=== PATIENT | female | born 1940 | race Caucasian/White ===

== ENCOUNTER 2022-10-23 16:53 | Emergency (ER) | payer MEDICARE, OTHER, SELFPAY ==
[2022-10-23] VITALS (19 sets, daily range): BP systolic 159–195; BP diastolic 62–88; PULSE 56–149; RESP 14–23; TEMP 36.9; O2SAT 93–99
--- NOTE | 2022-10-23 17:04 | ECG_ITS ---
[facility] Test Date: 2022-10-23 Pat Name: SYMONE BURT Department: Room: - Gender: Female [employer]: : 1940 Requested By: ANTONINO GUSTAFSON Order Number: [id number] Reading MD: CHARITO RAMIREZ Measurements Intervals [place] Rate: 63 P: 0 NC: 202 QRS: -47 QRSD: 90 T: 61 QT: 406 QTc: 414 Interpretive Statements 1100 Sinus rhythm 2420 RSR (QR) in lead V1/V2, consistent with right ventricular conduction delay 7200 Abnormal left axis deviation 8102 Low QRS voltage in chest leads 9130 borderline ECG No previous ECG available for comparison Electronically Signed On 10-25-2022 18:24:08 EDT by CHARITO RAMIREZ
--- NOTE | 2022-10-23 17:04 | XR_ITS ---
The [address] [address] Patient Name: SYMONE BURT MRN: [id number] date: 1940 Sex: F Assigned Patient Location: ED.MAIN Current Patient Location: ER Accession/Order Number: [id number] Exam Date: 10/23/2022 17:40 Report Date: 10/23/2022 18:06 At the request of: SONJA ELIZABETH Procedure: XR hip LT 2V w/ pelvis EXAM: XR hip LT 2V w/ pelvis HISTORY: Hip pain following fall COMPARISON: None. TECHNIQUE: AP pelvis and 2 views of the left hip FINDINGS: No fracture, dislocation, subluxation or osseous lesion. The bilateral hip joints, pubic symphysis and sacroiliac joints are unremarkable for patient's age. Age-related changes of the lumbar spine.. Enthesophytes off the tendinous insertions. : Electronically authenticated by: ZHOU ABEL Date: 10/23/2022 18:06
--- NOTE | 2022-10-23 17:04 | XR_ITS ---
The [address] [address] Patient Name: SYMONE BURT MRN: [id number] date: 1940 Sex: F Assigned Patient Location: ED.MAIN Current Patient Location: ER Accession/Order Number: [id number] Exam Date: 10/23/2022 17:40 Report Date: 10/23/2022 18:05 At the request of: SONJA ELIZABETH Procedure: XR foot RT min 3V EXAM: XR foot RT min 3V HISTORY: Pain following fall COMPARISON: None. TECHNIQUE: 3 views FINDINGS: IMPRESSION: Comminuted displaced intra-articular fracture of the fifth proximal phalanx base. Associated joint effusion and soft tissue edema. Moderate degenerative changes of the first metatarsophalangeal joint. The remainder of the joint spaces are unremarkable for patient's age. Electronically authenticated by: ZHOU ABEL Date: 10/23/2022 18:05
--- NOTE | 2022-10-23 17:04 | XR_ITS ---
The [address] [address] Patient Name: SYMONE BURT MRN: [id number] date: 1940 Sex: F Assigned Patient Location: ER Current Patient Location: ER Accession/Order Number: [id number] Exam Date: 10/23/2022 17:40 Report Date: 10/23/2022 17:59 At the request of: SONJA ELIZABETH Procedure: XR chest 2V XR chest 2V COMPARISON: None. CLINICAL HISTORY: syncope TECHNIQUE: 2 views FINDINGS: There is a normal cardiac and mediastinal contour. The pulmonary vascular pattern is normal. The lungs are clear and the pleural margins are sharp. There are no significant skeletal abnormalities. XR/XR chest 2V IMPRESSION: NO ACUTE RADIOGRAPHIC FINDINGS. Electronically authenticated by: MELANIA DAVENPORT Date: 10/23/2022 17:59
--- NOTE | 2022-10-23 17:07 | ED_ITS ---
Documented by User: PARKER Michaud 10/23/22 18:53 HPI - General Adult General Chief complaint: Extremity Injury, Lower Stated complaint: FALL, LOWER EXTREMITY INJURY Time Seen by Provider: 10/23/22 16:57 Source: patient Mode of arrival: Wheelchair History of Present Illness HPI narrative: patient is a 81-year-old female presents to the Emergency Room for evaluation of right little toe and foot pain. Patient states she was standing cooking stirfry wheen she started to feel warm and funny patient states she believe she fell or passed out and came to when her son came in from another room. Patient states she twisted her toe in her foot and landed on her left hip. She does not have any evidence of head or neck injury. Patient states she initially laid down for a while and this initial injury occurred around 1 PM. Patient states she feels back to normal but her toe is still bothering her and soreness to the left lateral hip.. Patient ambulatory without difficulty. She denies any recent illness but did have some diarrhea after eating fresh beats. Patient without any chest pain palpitations or shortness of breath. Patient admits that she has had this happen to her in the past with passing out. She takes baby aspirin 81 mg daily Location: Reports right Related Data Home Medications Medication Instructions Recorded Confirmed aspirin 81 mg tablet,delayed 81 mg PO DAILY 10/23/22 10/23/22 release (Adult Low Dose Aspirin) fenofibrate 54 mg tablet 54 mg PO DAILY 10/23/22 10/23/22 levothyroxine 112 mcg tablet 112 mcg PO DAILY 10/23/22 10/23/22 losartan 25 mg tablet 25 mg PO DAILY 10/23/22 10/23/22 metoprolol tartrate 50 mg tablet 50 mg PO DAILY 10/23/22 10/23/22 spironolactone 25 mg tablet 25 mg PO DAILY 10/23/22 10/23/22 Allergies Allergy/AdvReac Type Severity Reaction Status Date / Time amlodipine [From Norvasc] Allergy Severe Verified 10/23/22 17:09 ciprofloxacin Allergy Severe Verified 10/23/22 17:09 clonidine [From Catapres] Allergy Severe Verified 10/23/22 17:09 lisinopril Allergy Severe Verified 10/23/22 17:09 Ewamgec-WFN-[id number] Reductase Allergy Severe Verified 10/23/22 17:09 Inhibitor medro dose pack Allergy Severe Uncoded 10/23/22 17:09 Review of Systems ROS Constitutional Denies: fever or chills Eyes Denies: change in vision or blurry vision Ears, nose, mouth, and throat Denies: throat pain or neck pain Cardiovascular Denies: chest pain or palpitations Respiratory Denies: shortness of breath or cough Gastrointestinal Denies: abdominal pain, nausea or vomiting Genitourinary Denies: painful urination or urinary frequency Musculoskeletal Reports: joint pain; Denies: back pain Integumentary/Breast Denies: rash Neurological Denies: headache Psychiatric Denies: anxiety, mood swings or panic attacks Allergic/Immunologic Denies: hives [facility] Medical History (Updated 10/23/22 @ 18:17 by PARKER Michaud) Exam Narrative Exam Narrative: Nurses note and vital signs reviewed and patient is not hypoxic. General: The patient appears well and in no apparent distress. Patient is resting comfortably on cart. GCS = 15. Skin: Warm, dry, no pallor noted. Head: Normocephalic, atraumatic Neck: Supple, trachea mid-line, no tenderness, no lymphadenopathy. Full ROM and no cervical spinal tenderness. The patient has no step-offs or crepitus noted Eyes: PERRLA, EOMI ENT: TM's clear, no hemotympanum detected, no blood in posterior oropharynx Cardiovascular: Regular Rate and Rhythm Respiratory: Patient is in no distress, no accessory muscle use, lungs are clear to auscultation, no wheezing, rales or rhonchi Chest Wall: no tenderness, no flail chest, contusion, abrasion, or signs of tra aaliyah. Back: Back has no evidence of trauma, including contusion, abrasion, swelling or ecchymosis. The patient had no evidence of step-offs or creptitace noted. No tenderness to palpation. Negative straight leg raise bilaterally. Musculoskeletal: normal ROM, no tenderness, no swelling. except soon to tenderness and bruising at the base of the 5th digit right foot. No midfoot tenderness. Patient also has tenderness to the left lateral hip but no pain on log rolling of the hip. Pulses at femoral, DP, PT, and popiteal were 2+ bilaterally. Moves all four extremities in all modalities with 5/5 strength. GI: Normal bowel sounds, no tenderness to palpation, no masses appreciated. No rebound, guarding, or rigidity noted. Neurological: A&O x4, normal equal field organizer strength, normal speech, normal coordination, normal motor, normal sensory. Psychiatric: Cooperative Constitutional Vital Signs, click to edit/add: Last Vital Signs Temp 98.4 F 10/23/22 16:57 Pulse 63 10/23/22 18:50 Resp 18 10/23/22 18:50 BP 194/64 H 10/23/22 18:31 Pulse Ox 93 L 10/23/22 18:10 O2 Del Method Room Air 10/23/22 16:57 Course Vital Signs Vital signs: Vital Signs Temperature 98.4 F 10/23/22 16:57 Pulse Rate 72 10/23/22 16:57 Respiratory Rate 18 10/23/22 16:57 Blood Pressure 174/88 H 10/23/22 16:57 Pulse Oximetry 98 10/23/22 16:57 Oxygen Delivery Method Room Air 10/23/22 16:57 Temperature 98.4 F 10/23/22 16:57 Pulse Rate 63 10/23/22 18:50 Respiratory Rate 18 10/23/22 18:50 Blood Pressure 194/64 H 10/23/22 18:31 Pulse Oximetry 93 L 10/23/22 18:10 Oxygen Delivery Method Room Air 10/23/22 16:57 Medical Decision Making MDM Narrative Medical decision making narrative: patient presents with possible syncopal episode. She reports having these in the past. She denies any preceding palpitations chest pain or shortness of breath. Patient admits to having some diarrhea earlier in the day. denies head or neck injury, denies headache or visual disturbance.External signs of trauma. Local ized tenderness to the right foot 5th digit base. Patient also has some tenderness to the greater trochanter of the left hip. We discussed her EKG, 4+ hours since initial episode and will check laboratory studies. Patient can be observed by her son for a possible head injury but she has no symptoms or external findings. I think I just got myself too warm cooking. orthostatic vital signs with patient supine 180/62 hr 63, seated 190/70 hr 66, standing 165/76 hr 71 fsbs 100. Patient given five hundred mL IV fluid bolus. ice applied, declined medication for pain such as Tylenol patient's blood pressure has been labile, she is asymptomatic. We recommend she get it rechecked with her family doctor. Patient reports she sees a kidney doctor, but her last visit they advised that she was all good for her age. We discussed use of a postop shoe pending follow-up with podiatry for further evaluation of her toe fracture. Patient agrees to call Wednesday for appointment.patient's son at bedside agreeable, states she only had tea this morning, did not eat well before standing in warm kitchen cooking food. The patient is to followup with primary care physician in next 2-3 days or to return to the emergency department should any of the signs or symptoms worsen or new symptoms develop. Patient had questions answered. The patient agrees with the following Diagnosis and Treatment plan and the patient will be discharged home. Lab Data Labs: Lab Results 10/23/22 10/23/22 10/23/22 Range/Units 17:16 17:24 18:10 WBC 8.9 (4.0-11.0) 10^3/uL RBC 4.61 (4.20-5.40) 10^6/uL Hgb 14.0 (12.0-16.0) g/dL Hct 39.6 (36.0-48.0) % MCV 85.9 (81.0-99.0) fL MCH 30.4 (26.7-34.0) pg MCHC 35.4 H (29.9-35.2) g/dL RDW 12.1 (11.0-15.0) % Plt Count 242 (150-450) 10^3/uL MPV 9.6 (9.5-13.5) fL Neut % (Auto) 72.3 (43.0-75.0) % Lymph % (Auto) 18.2 L (20.5-60.0) % [place] % (Auto) 8.1 (1.7-12.0) % Eos % (Auto) 0.9 (0.9-7.0) % Baso % (Auto) 0.2 (0.2-2.0) % Neut # (Auto) 6.5 (1.4-6.5) 10^3/uL Lymph # (Auto) 1.6 (1.2-3.8) 10^3/uL [place] # (Auto) 0.7 (0.3-0.8) 10^3/uL Eos # (Auto) 0.1 (0.0-0.7) 10^3/uL Baso # (Auto) 0.0 (0.0-0.1) 10^3/uL Abs Immat Gran (auto) 0.03 (0.00-0.03) 10^3/uL Imm/Tot Granulo (auto) 0.3 (0.0-0.5) % Sodium 132 L (136-145) mmol/L Potassium 4.6 (3.5-5.1) mmol/L Chloride 98 (98-107) mmol/L Carbon Dioxide 25.0 (21.0-32.0) mmol/L Anion Gap 13.6 BUN 24.0 H (7.0-18.0) mg/dL Creatinine 1.46 H (0.55-1.02) mg/dL Est GFR ( Amer) 42 L (>=60) Est GFR (Non-Af Amer) 34 L (>=60) BUN/Creatinine Ratio 16.4 Glucose 105 (74-106) mg/dL Calcium 9.1 (8.5-10.1) mg/dL Troponin I High Sens 6.1 (4.0-51.3) pg/mL Urine Color Yellow (YELLOW) Urine Clarity Clear (CLEAR) Urine pH 6.0 (5.0-9.0) Ur Specific [place] 1.020 (1.005-1.025) Urine Protein Negative (NEG/TRACE) mg/dL Urine Glucose (UA) Negative (NEGATIVE) mg/dL Urine Ketones Negative (NEGATIVE) mg/dL Urine Occult Blood Negative (NEGATIVE) Urine Nitrite Negative (NEGATIVE) Urine Bilirubin Negative (NEGATIVE) Urine Urobilinogen 1.0 (0.2-1.0) EU/dL Ur Leukocyte Esterase Trace A (NEGATIVE) Urine RBC None seen (0-2) #/HPF Urine WBC 2-5 A (NONE SEEN) #/HPF Ur Squamous Epith Cells Rare (NONE/RARE) #/LPF Urine Crystals None seen (None Seen) #/HPF Urine Bacteria None seen (NONE SEEN) #/HPF Urine Casts None seen (NONE SEEN) #/LPF Urine Mucus None seen (NONE SEEN) Ur Culture Indicated? No POC Glucose 100 (74-106) mg/dL Imaging Data Chest x-ray: Radiologist's impression: Procedure: XR chest 2V XR chest 2V COMPARISON: None. CLINICAL HISTORY: syncope TECHNIQUE: 2 views FINDINGS: There is a normal cardiac and mediastinal contour. The pulmonary vascular pattern is normal. The lungs are clear and the pleural margins are sharp. There are no significant skeletal abnormalities. IMPRESSION: NO ACUTE RADIOGRAPHIC FINDINGS. Electronically authenticated by: MELANIA DAVENPORT Date: 10/23/2022 17:59 Procedure: XR foot RT min 3V EXAM: XR foot RT min 3V HISTORY: Pain following fall COMPARISON: None. TECHNIQUE: 3 views FINDINGS: IMPRESSION: Comminuted displaced intra-articular fracture of the fifth proximal phalanx base. Associated joint effusion and soft tissue edema. Moderate degenerative changes of the first metatarsophalangeal joint. The remainder of the joint spaces are unremarkable for patient's age. Electronically authenticated by: ZHOU ABEL Date: 10/23/2022 18:05 Procedure: XR hip LT 2V w/ pelvis EXAM: XR hip LT 2V w/ pelvis HISTORY: Hip pain following fall COMPARISON: None. TECHNIQUE: AP pelvis and 2 views of the left hip FINDINGS: No fracture, dislocation, subluxation or osseous lesion. The bilateral hip joints, pubic symphysis and sacroiliac joints are unremarkable for patient's age. Age-related changes of the lumbar spine.. Enthesophytes off the tendinous insertions. : Electronically authenticated by: ZHOU ABEL Date: 10/23/2022 18:06 ECG Data Attestation: I personally reviewed and interpreted this ECG as follows: Interpretation: EKG interpretation: Emergency Department physician interpretation, normal sinus rhythm 63bpm, no ectopy, no ST segment elevation, left axis deviation.positive artifact Discharge Plan Discharge Chief Complaint: Extremity Injury, Lower Clinical Impression: Acute pain of left hip, Syncope, Dehydration Broken toe Qualifiers: Encounter type: initial encounter Toe: lesser toe Fracture type: closed Phalanx: proximal Fracture alignment: displaced Laterality: right Qualified Code(s): S92.511A - Displaced fracture of proximal phalanx of right lesser toe(s), initial encounter for closed fracture Patient Disposition: Home, Self-Care Time of Disposition Decision: 18:13 Condition: Good Prescriptions / Home Meds: No Action fenofibrate 54 mg tablet 54 mg PO DAILY levothyroxine 112 mcg tablet 112 mcg PO DAILY metoprolol tartrate 50 mg tablet 50 mg PO DAILY spironolactone 25 mg tablet 25 mg PO DAILY aspirin [Adult Low Dose Aspirin] 81 mg tablet,delayed release (DR/EC) 81 mg PO DAILY losartan 25 mg tablet 25 mg PO DAILY Instructions: Dehydration (ED), Toe Fracture (ED), Syncope in Older Adults (ED) Additional Instructions: Increase po fluids. ( avoid heat and humidity) ice and elevate right foot. use walking shoe.. recommend appt with Dr. Cabral's office to follow toe fracture Stand Alone Forms: Portal Instructions Referrals: Hoda Talbot MD [Primary Care Provider] - 1 week Erasmo Cabral MD [Physician] - As soon as possible Discharge Date/Time: 10/23/22 19:05 Documented by User: Med Bowers MD 10/23/22 19:11 HPI - General Adult General Chief complaint: Extremity Injury, Lower Stated complaint: FALL, LOWER EXTREMITY INJURY Time Seen by Provider: 10/23/22 16:57 Related Data Home Medications Medication Instructions Recorded Confirmed aspirin 81 mg tablet,delayed 81 mg PO DAILY 10/23/22 10/23/22 release (Adult Low Dose Aspirin) fenofibrate 54 mg tablet 54 mg PO DAILY 10/23/22 10/23/22 levothyroxine 112 mcg tablet 112 mcg PO DAILY 10/23/22 10/23/22 losartan 25 mg tablet 25 mg PO DAILY 10/23/22 10/23/22 metoprolol tartrate 50 mg tablet 50 mg PO DAILY 10/23/22 10/23/22 spironolactone 25 mg tablet 25 mg PO DAILY 10/23/22 10/23/22 Allergies Allergy/AdvReac Type Severity Reaction Status Date / Time amlodipine [From Norvasc] Allergy Severe Verified 10/23/22 17:09 ciprofloxacin Allergy Severe Verified 10/23/22 17:09 clonidine [From Catapres] Allergy Severe Verified 10/23/22 17:09 lisinopril Allergy Severe Verified 10/23/22 17:09 [id number]-VWV-NxS Reductase Allergy Severe Verified 10/23/22 17:09 Inhibitor medro dose pack Allergy Severe Uncoded 10/23/22 17:09 [facility] Medical History (Updated 10/23/22 @ 18:17 by PARKER Michaud) Exam Constitutional Vital Signs, click to edit/add: Last Vital Signs Temp 98.4 F 10/23/22 16:57 Pulse 63 10/23/22 18:50 Resp 18 10/23/22 18:50 BP 194/64 H 10/23/22 18:31 Pulse Ox 93 L 10/23/22 18:10 O2 Del Method Room Air 10/23/22 16:57 Course Vital Signs Vital signs: Vital Signs Temperature 98.4 F 10/23/22 16:57 Pulse Rate 72 10/23/22 16:57 Respiratory Rate 18 10/23/22 16:57 Blood Pressure 174/88 H 10/23/22 16:57 Pulse Oximetry 98 10/23/22 16:57 Oxygen Delivery Method Room Air 10/23/22 16:57 Temperature 98.4 F 10/23/22 16:57 Pulse Rate 63 10/23/22 18:50 Respiratory Rate 18 10/23/22 18:50 Blood Pressure 194/64 H 10/23/22 18:31 Pulse Oximetry 93 L 10/23/22 18:10 Oxygen Delivery Method Room Air 10/23/22 16:57 Medical Decision Making MDM Narrative Medical decision making narrative: patient presents with possible syncopal episode. She reports having these in the past. She denies any preceding palpitations chest pain or shortness of breath. Patient admits to having some diarrhea earlier in the day. denies head or neck injury, denies headache or visual disturbance.External signs of trauma. Localized tenderness to the right foot 5th digit base. Patient also has some tenderness to the greater trochanter of the left hip. We discussed her EKG, 4+ hours since initial episode and will check laboratory studies. Patient can be observed by her son for a possible head injury but she has no symptoms or external findings. I think I just got myself too warm cooking. orthostatic vital signs with patient supine 180/62 hr 63, seated 190/70 hr 66, standing 165/76 hr 71 fsbs 100. Patient given five hundred mL IV fluid bolus. ice applied, declined medication for pain such as Tylenol patient's blood pressure has been labile, she is asymptomatic. We recommend she get it rechecked with her family doctor. Patient reports she sees a kidney doctor, but her last visit they advised that she was all good for her age. We discussed use of a postop shoe pending follow-up with podiatry for further evaluation of her toe fracture. Patient agrees to call Wednesday for appointmen t.patient's son at bedside agreeable, states she only had tea this morning, did not eat well before standing in warm kitchen cooking food. The patient is to followup with primary care physician in next 2-3 days or to return to the emergency department should any of the signs or symptoms worsen or new symptoms develop. Patient had questions answered. The patient agrees with the following Diagnosis and Treatment plan and the patient will be discharged home. I, Dr Bowers, have reviewed the above progress note and course of action in the ER; agree with the above. I have personally seen and evaluated this patient, gone over history and physical, and discussed disposition and treatment plan with the patient. Lab Data Labs: Lab Results 10/23/22 10/23/22 10/23/22 Range/Units 17:16 17:24 18:10 WBC 8.9 (4.0-11.0) 10^3/uL RBC 4.61 (4.20-5.40) 10^6/uL Hgb 14.0 (12.0-16.0) g/dL Hct 39.6 (36.0-48.0) % MCV 85.9 (81.0-99.0) fL MCH 30.4 (26.7-34.0) pg MCHC 35.4 H (29.9-35.2) g/dL RDW 12.1 (11.0-15.0) % Plt Count 242 (150-450) 10^3/uL MPV 9.6 (9.5-13.5) fL Neut % (Auto) 72.3 (43.0-75.0) % Lymph % (Auto) 18.2 L (20.5-60.0) % [place] % (Auto) 8.1 (1.7-12.0) % Eos % (Auto) 0.9 (0.9-7.0) % Baso % (Auto) 0.2 (0.2-2.0) % Neut # (Auto) 6.5 (1.4-6.5) 10^3/uL Lymph # (Auto) 1.6 (1.2-3.8) 10^3/uL [place] # (Auto) 0.7 (0.3-0.8) 10^3/uL Eos # (Auto) 0.1 (0.0-0.7) 10^3/uL Baso # (Auto) 0.0 (0.0-0.1) 10^3/uL Abs Immat Gran (auto) 0.03 (0.00-0.03) 10^3/uL Imm/Tot Granulo (auto) 0.3 (0.0-0.5) % Sodium 132 L (136-145) mmol/L Potassium 4.6 (3.5-5.1) mmol/L Chloride 98 (98-107) mmol/L Carbon Dioxide 25.0 (21.0-32.0) mmol/L Anion Gap 13.6 BUN 24.0 H (7.0-18.0) mg/dL Creatinine 1.46 H (0.55-1.02) mg/dL Est GFR ( Amer) 42 L (>=60) Est GFR (Non-Af Amer) 34 L (>=60) BUN/Creatinine Ratio 16.4 Glucose 105 (74-106) mg/dL Calcium 9.1 (8.5-10.1) mg/dL Troponin I High Sens 6.1 (4.0-51.3) pg/mL Urine Color Yellow (YELLOW) Urine Clarity Clear (CLEAR) Urine pH 6.0 (5.0-9.0) Ur Specific [place] 1.020 (1.005-1.025) Urine Protein Negative (NEG/TRACE) mg/dL Urine Glucose (UA) Negative (NEGATIVE) mg/dL Urine Ketones Negative (NEGATIVE) mg/dL Urine Occult Blood Negative (NEGATIVE) Urine Nitrite Negative (NEGATIVE) Urine Bilirubin Negative (NEGATIVE) Urine Urobilinogen 1.0 (0.2-1.0) EU/dL Ur Leukocyte Esterase Trace A (NEGATIVE) Urine RBC None seen (0-2) #/HPF Urine WBC 2-5 A (NONE SEEN) #/HPF Ur Squamous Epith Cells Rare (NONE/RARE) #/LPF Urine Crystals None seen (None Seen) #/HPF Urine Bacteria None seen (NONE SEEN) #/HPF Urine Casts None seen (NONE SEEN) #/LPF Urine Mucus None seen (NONE SEEN) Ur Culture Indicated? No POC Glucose 100 (74-106) mg/dL Discharge Plan Discharge Chief Complaint: Extremity Injury, Lower Clinical Impression: Acute pain of left hip, Syncope, Dehydration Broken toe Qualifiers: Encounter type: initial encounter Toe: lesser toe Fracture type: closed Phalanx: proximal Fracture alignment: displaced Laterality: right Qualified Code(s): S92.511A - Displaced fracture of proximal phalanx of right lesser toe(s), initial encounter for closed fracture Patient Disposition: Home, Self-Care Time of Disposition Decision: 18:13 Condition: Good Prescriptions / Home Meds: No Action fenofibrate 54 mg tablet 54 mg PO DAILY levothyroxine 112 mcg tablet 112 mcg PO DAILY metoprolol tartrate 50 mg tablet 50 mg PO DAILY spironolactone 25 mg tablet 25 mg PO DAILY aspirin [Adult Low Dose Aspirin] 81 mg tablet,delayed release (DR/EC) 81 mg PO DAILY losartan 25 mg tablet 25 mg PO DAILY Instructions: Dehydration (ED), Toe Fracture (ED), Syncope in Older Adults (ED) Additional Instructions: Increase po fluids. ( avoid heat and humidity) ice and elevate right foot. use walking shoe.. recommend appt with Dr. Cabral's office to follow toe fracture Stand Alone Forms: Portal Instructions Referrals: Hoda Talbot MD [Primary Care Provider] - 1 week Erasmo Cabral MD [Physician] - As soon as possible Discharge Date/Time: 10/23/22 19:05
[2022-10-23 17:18] LABS: Glucometer 100 mg/dL (74-106)
[2022-10-23] MEDS: 0.9 % SODIUM CHLORIDE 1,000 ML 500 ML IV (17:29)
[2022-10-23 17:34] LABS: Basophils Percent Auto 0.2 % (0.2-2.0); Eosinophils Absolute Auto 0.1 10^3/uL (0.0-0.7); Eosinophils Percent Auto 0.9 % (0.9-7.0); Hematocrit 39.6 % (36.0-48.0); Immature Granulocytes Abs Auto 0.03 10^3/uL (0.00-0.03); Immature Granulocytes Pct Auto 0.3 % (0.0-0.5); Lymphocytes Absolute Auto 1.6 10^3/uL (1.2-3.8); Lymphocytes Percent Auto 18.2 % (20.5-60.0); Mean Corpuscular HGB Conc 35.4 g/dL (29.9-35.2); Mean Corpuscular Hemoglobin 30.4 pg (26.7-34.0); Mean Corpuscular Volume 85.9 fL (81.0-99.0); Mean Platelet Volume 9.6 fL (9.5-13.5); Monocytes Absolute Auto 0.7 10^3/uL (0.3-0.8); Monocytes Percent Auto 8.1 % (1.7-12.0); Neutrophils Absolute Auto 6.5 10^3/uL (1.4-6.5); Neutrophils Percent Auto 72.3 % (43.0-75.0); Platelet Count 242 10^3/uL (150-450); Red Blood Count 4.61 10^6/uL (4.20-5.40); Red Cell Distribution Width 12.1 % (11.0-15.0); White Blood Count 8.9 10^3/uL (4.0-11.0)
[2022-10-23 17:50] LABS: Anion Gap 13.6; BUN Creatinine Ratio 16.4; Calcium 9.1 mg/dL (8.5-10.1); Chloride 98 mmol/L (98-107); Estimated GFR (African America 42 (>=60); Estimated GFR (Non-African Ame 34 (>=60); Glucose 105 mg/dL (74-106); Potassium 4.6 mmol/L (3.5-5.1); Sodium 132 mmol/L (136-145); Troponin I High Sensitivity 6.1 pg/mL (4.0-51.3)
[2022-10-23 18:50] LABS: Bilirubin Urine NEGATIVE (NEGATIVE); Blood Urine NEGATIVE (NEGATIVE); Clarity Urine CLEAR (CLEAR); Color Urine YELLOW (YELLOW); Glucose Urine UA NEGATIVE (NEGATIVE); Ketones Urine NEGATIVE (NEGATIVE); Leukocyte Esterase Urine TRACE (NEGATIVE); Nitrite Urine NEGATIVE (NEGATIVE); Protein Urine NEGATIVE (NEG/TRACE)
[2022-10-23 18:51] LABS: Urine Microscopic Indicated YES
[2022-10-23 18:58] LABS: Bacteria Urine NONE SEEN #/HPF (NONE SEEN); Cast Seen? NONE SEEN #/LPF (NONE SEEN); Crystals Seen? None Seen #/HPF (None Seen); Mucus Urine NONE SEEN (NONE SEEN); RBC Urine NONE SEEN #/HPF (0-2); Squamous Epithelial Cell Urine RARE #/LPF (NONE/RARE)
[2022-10-23 18:59] LABS: Urine Culture Indicated NO
== END 2022-10-23 19:05 | disposition home or self-care (01) ==
PROVIDERS: Personal Emergency Response Attendant; Emergency Provider Emergency Medicine; PCP Family Medicine
DX: R55 Syncope and collapse (principal); E86.0 Dehydration; M25.552 Pain in left hip; S92.511A Displaced fracture of proximal phalanx of right lesser toe(s), initial encounter for closed fracture; W19.XXXA Unspecified fall, initial encounter; Z79.82 Long term (current) use of aspirin; Z79.899 Other long term (current) drug therapy; Z79.890 Hormone replacement therapy
CPT/HCPCS: 36415; 71046; 73502; 73630; 80048; 81001; 81003; 82948; 84484; 85025; 93005; 96360; 99285

== ENCOUNTER 2022-12-21 08:36 | Outpatient (OUT) | payer MEDICARE, OTHER, SELFPAY ==
[2022-12-21 09:03] LABS: Hematocrit 41.2 % (36.0-48.0); Hemoglobin 13.8 g/dL (12.0-16.0); Mean Corpuscular HGB Conc 33.5 g/dL (29.9-35.2); Mean Corpuscular Hemoglobin 29.7 pg (26.7-34.0); Mean Corpuscular Volume 88.8 fL (81.0-99.0); Mean Platelet Volume 9.3 fL (9.5-13.5); Platelet Count 241 10^3/uL (150-450); Red Blood Count 4.64 10^6/uL (4.20-5.40); Red Cell Distribution Width 12.5 % (11.0-15.0); White Blood Count 5.2 10^3/uL (4.0-11.0)
[2022-12-21 09:04] LABS: Bilirubin Urine NEGATIVE (NEGATIVE); Blood Urine NEGATIVE (NEGATIVE); Clarity Urine CLEAR (CLEAR); Color Urine LT. YELLOW (YELLOW); Glucose Urine UA NEGATIVE (NEGATIVE); Ketones Urine NEGATIVE (NEGATIVE); Leukocyte Esterase Urine SMALL (NEGATIVE); Nitrite Urine NEGATIVE (NEGATIVE); Protein Urine NEGATIVE (NEG/TRACE); Urobilinogen Urine 0.2 EU/dL (0.2-1.0)
[2022-12-21 09:11] LABS: Bacteria Urine NONE SEEN #/HPF (NONE SEEN); Cast Seen? NONE SEEN #/LPF (NONE SEEN); Crystals Seen? None Seen #/HPF (None Seen); Mucus Urine NONE SEEN (NONE SEEN); RBC Urine 0-2 #/HPF (0-2); Squamous Epithelial Cell Urine NONE SEEN #/LPF (NONE/RARE); Urine Culture Indicated NO; WBC Urine 0-2 #/HPF (NONE SEEN)
[2022-12-21 09:35] LABS: Albumin Level 3.7 g/dL (3.4-5.0); Anion Gap 12.3; BUN Creatinine Ratio 26.7; Calcium 9.7 mg/dL (8.5-10.1); Chloride 100 mmol/L (98-107); Estimated GFR (African America 45 (>=60); Estimated GFR (Non-African Ame 37 (>=60); Glucose 93 mg/dL (74-106); Phosphorus 3.6 mg/dL (2.6-4.7); Potassium 4.3 mmol/L (3.5-5.1); Sodium 136 mmol/L (136-145); Uric Acid 4.7 mg/dL (2.6-6.0)
[2022-12-21 10:12] LABS: Protein Creatinine Ratio Urine 0.07; Total Protein Urine Random <6.0 mg/dL (<=11.9)
[2022-12-22 12:09] LABS: PTH, Intact 14 pg/mL (15-65)
== END 2022-12-21 08:37 | disposition home or self-care (01) ==
LOC: LAB 08:37
PROVIDERS: PCP Family Medicine; Visit Provider Internal Medicine
DX: I12.9 Hypertensive chronic kidney disease with stage 1 through stage 4 chronic kidney disease, or unspecified chronic kidney disease (principal); N18.32 Chronic kidney disease, stage 3b; E87.1 Hypo-osmolality and hyponatremia; E20.9 Hypoparathyroidism, unspecified
CPT/HCPCS: 36415; 80069; 81001; 82306; 82570; 83735; 83970; 84156; 84550; 85027

== ENCOUNTER 2023-03-09 07:35 | Outpatient (OUT) | payer MEDICARE, OTHER, SELFPAY ==
[2023-03-09 09:02] LABS: Thyroid Stimulating Hormone 0.347 uIU/mL (0.358-3.740)
== END 2023-03-09 07:36 | disposition home or self-care (01) ==
LOC: LAB 07:37
PROVIDERS: PCP Family Medicine
DX: E03.9 Hypothyroidism, unspecified (principal)
CPT/HCPCS: 36415; 84443

== ENCOUNTER 2023-07-27 07:49 | Outpatient (OUT) | payer MEDICARE, OTHER, SELFPAY ==
--- OUTSIDE RECORDS SUMMARY | 2023-07-27 08:11 | XMS_ITS | CCD ---
Author Organization [facility] Care Team Providers Care Ironer Hand Name Role Phone Antonino Gustafson Unavailable Unavailable Unavailable Bhavna, Liliya Unavailable MD Antonino Gustafson Primary Care Provider DO Ortiz Cota Emergency Provider Sj, Dr. Antonino Macedo Primary Care Unav ailevonne Avalos, CRUMB PACKER Adrien Attending Unavailable Richard, Dr. Michael Ram Referring Unava ilable Richard, Dr. Michael Ram Referring Unava ilable Richard, Dr. Michael Ram Attending Unava ilable Sj, Dr. Antonino Macedo Primary Care Unav ailable SJ, DR ANTONINO Rand Admitting Unavailable GUSTAFSON, DR ANTONINO Rand Attending Unavailable SJ, DR ANTONINO Rand Primary Care Unavailable SJ, DR ANTONINO Rand Consulting Unavailable BHAVNA, LILIYA Admitting Unavailable BHAVNA, LILIYA Attending Unavailable SJ, DR ANTONINO Rand Primary Care Unavailable BHAVNA, LILIYA Consulting Unavailable RICHARD, DR MICHAEL Melissa Admitting Unavailabl e RICHARD, DR MICHAEL Melissa Attending Unavailabl e SJ, DR ANTONINO Rand Primary Care Unavailable RICHARD, DR MICHAEL Melissa Consulting Unavailabl e BHAVNA, LILIYA Admitting Unavailable BHAVNA, LILIYA Attending Unavailable SJ, DR ANTONINO Rand Primary Care Unavailable BHAVNA, LILIYA Consulting Unavailable Antonino Gustafson Unavailable MD Antonino Gustafson Primary Care Provider DO Willie Lyon Emergency Provider MD Elsa Amin Admit Provider MD Elsa Amin Attending Provider [phone] MD Antonino Gustafson Primary Care Provider DO Willie Lyon Emergency Provider MD Elsa Amin Admit Provider MD Elsa Amin Attending Provider LILIANE Reyes Other Provider Unavailable DO Sherron Strauss Other Provider MD Ludwin Arias Other Provider [phone] MD Michael Carrasco Other Provider MD Chance Dennison Other Provider MD Juan Martin Other Provider AIMEE Cha Other Provider MD Allie Flores Other Provider MD Reagan Bello Other Provider MD Adrienne Oconnor Other Provider [facility] Camryn Harris Other Provider MD Svitlana Reyes Other Provider Antonino Gustafson MD Primary Care Provider Lian Reyes Consulting Unavailable Antonino Gustafson Primary Care Unavailable Elsa Amin Admitting Unavailable Elsa Amin Attending Unavailable Sherorn Strauss Consulting Unavailable Ludwin Arias Consulting Unavailable Michael Carrasco Consulting Unavail able Chance Dennison Consulting Unavailable Juan Martin Consulting Unavailab Adrien Reilly Consulting Unavailable Allie Flores Consulting Unavailable Reagan Bello Najoe Consulting Unavailab Adrienne Parikh Consulting Unavailable Camryn Bosch Consulting Unavailable Svitlana Reyes Consulting Unavailable Antonino Gustafson MD Primary Care Provider ANTONINO GUSTAFSON Primary Care Unavailable ADRIEN AVALOS Attending Unavailable MICHAEL STRAUSS Referring Unavailable ANTONINO GUSTAFSON Primary Care Unavailable MICHAEL STRAUSS Attending Unavailable ADRIEN AVALOS Referring Unavailable ANTONINO GUSTAFSON Primary Care Unavailable Allergies Allergy Classification Reported Allergen(s) Allergy Type Date of Onset Reaction(s) Facility (20 sources) amLODIPine; Translations: [Norvasc] Drug Allergy 023 Itching [facility] (11 sources) Angiotensin Converting Enzyme (Tati) Inhibitors; Translations: [TATI Inhibitors] Allergy to drug (finding) 023 [facility] 3 Repository (12 sources) cloNIDine; Translations: [[id number]-[id number] PTWK] Drug Allergy Shortness of breath [facility] 250 DO Work Phone: (13 sources) Hmg-Coa Reductase Inhibitors (Statins); Translations: [Statins] Allergy to drug (finding) Myalgia, Unknown [place] [address] DO Work Phone: (20 sources) hydrALAZINE; Translations: [hydrALAZINE] Drug Allergy Diarrhea [facility] (20 sources) Lisinopril; Translations: [lisinopril] Drug Allergy 022 Rash [facility] (10 sources) methylPREDNISolone; Translations: [Medrol (Nestor) TABS] Drug Allergy Anaphylaxis [facility] 250 DO Work Phone: (15 sources) Sulfamethoxazole; Translations: [sulfa] Drug Allergy 023 Rash [facility] 250 DO Work Phone: (8 sources) Ciprofloxacin Drug Allergy Unknown, Comment:joint pain [facility] Other (8 sources) cloNIDine Drug Allergy Unknown [facility] Other (14 sources) methylPREDNISolone; Translations: [METHYLPREDNISOLONE] Drug Allergy Anaphylaxis [facility] (5 sources) amLODIPine; Translations: [amlodipine] Drug Allergy Unknown Reaction [facility] (5 sources) cloNIDine; Translations: [clonidine] Drug Allergy Unknown Reaction [facility] (4 sources) Sulfonamides (Antibiotic); Translations: [Sulfa (Sulfonamide Antibiotics)] Allergy to substance Unknown Reaction [facility] (4 sources) Ugugdjv-NNB-IoC Reductase Inhibitor; Translations: [Srbbbyh-EZQ-WeE Reductase Inhibitor] Allergy to substance Unknown Reaction [facility] (1 source) Amino Acids Drug Allergy [facility] Repository (1 source) amLODIPine Drug Allergy [facility] Repository (2 sources) black walnut pollen extract; Translations: [[id number] REDUCTASE INHIBITORS] Drug Allergy [facility] Repository (1 source) hydrALAZINE Drug Allergy 015 [facility] Repository (1 source) methylPREDNISolone Drug Allergy 015 [facility] Repository (1 source) Sulfonamides (Antibiotic) Drug allergy (disorder) [facility] Repository (5 sources) Statins Depletion *DIETARY PRODUCTS/DIETARY MANAGE Propensity to adverse reactions Unknown [facility] Other (5 sources) Sulf-10 Drug allergy Unknown [facility] Other (2 sources) Angiotensin-convertin g enzyme inhibitor agent Drug Allergy 023 Rash [facility] (2 sources) HMG-CoA reductase inhibitor Drug Allergy 023 Myalgia [facility] Work Phone: (1 source) Ciprofloxacin Drug Allergy 023 [facility] Repository (1 source) hydrALAZINE Drug Allergy [facility] Repository (1 source) Lisinopril Drug Allergy 023 [facility] Repository (1 source) methylPREDNISolone Drug Allergy 023 [facility] Repository (1 source) Sulfamethoxazole; Translations: [SULFAMETHOXAZOLE] Drug Allergy 023 [facility] 3 Repository Medications Current Medications Medication Drug Class(es) Dates Sig (Normalized) Sig (Original) aspirin 81 mg delayed release oral tablet (20 sources) Platelet Aggregation Inhibitor, Nonsteroidal Anti-inflammatory Drug Start: 03-12-2017 Aspirin (Neli Low Dose Aspirin) 81 mg Tablet,Delayed Release (Dr/Ec) Active 81 MG PO Daily March 12, 2017 1:00am take 1 tablet by summer th every twenty-four hours Aspirin 81 MG 1 tablet Orally Once a day Active Calcium + D 315-200 MG-UNIT (8 sources) take 1 tablet by summer th once daily at mealtime Calcium + D 315-200 MG-UNIT 1 tablet with meals Orally daily Active take 1 tablet by summer th twice daily at mealtime Calcium + D 315-200 MG-UNIT 1 tablet wit h meals Orally Twice a day Active CALCIUM CARBONATE-VITAMIN D3 ORAL (2 sources) take 1 tablet by mouth once daily CALCIUM CARBONATE-VITAMIN D3 ORAL Take 1 tablet by mouth once daily. 0 Active fenofibrate 54 mg oral tablet (20 sources) Peroxisome Proliferator Receptor alpha Agonist Start: 2016 take 1 tablet by mouth once daily fenofibrate (Tricor) 54 mg tablet Take 1 tablet (54 mg) by mouth once daily. 0 09/16/2021 Active levothyroxine sodium 0.1 mg oral tablet (20 sources) l-Thyroxine Start: 2022 take 1 tablet by mouth once daily in the morning Levothyroxine Sodium 112 MCG 1 tablet in the morning on an empty stomach Orally Once a day for 90 days May, Active Start: 03-12-2017 take 1 tablet by summer once daily Levothyroxine (Synthroid) 100 mcg Tablet Active 100 MCG PO Daily at 0630 30 January 29, 2023 12:00am Start: 03-12-2017 End: 01-29-2023 take 112 ug by mouth once daily Levothyroxine Disconti nued 112 MCG PO Daily March 12, 2017 1:00am January 29, 2023 10:46am take 1 tablet by summer once daily in the morning Levothyroxine Sodium 100 MCG TAKE 1 TABLET BY MOUTH ONCE DAILY IN THE MORNING ON AN EMPTY STOMACH for 30 days Active take 1 capsule by mo [facility] once daily before breakfast Levothyroxine Sodium 88 MCG Oral Capsule TAKE 1 CAPSULE BY MOUTH EVERY MORNING BEFORE BREAKFAST ON EMPTY STOMACH Quantity: 0 Refills: 0 Ordered: 09-Jan-2021 DO Active losartan potassium 25 mg oral tablet (20 sources) Angiotensin 2 Receptor Kimmie Start: 05-18-2023 take 1 tablet by mouth once daily losartan (Cozaar) 25 mg tablet Indications: Accelerated hypertension Take 1 tablet (25 mg) by mouth once daily. 90 tablet 3 05/18/2023 Active Start: 02-25-2023 End: 05-18-2023 take 1 tablet by mouth once daily losartan (Cozaar) 50 mg tablet Indications: Accelerated hypertension TAKE 1 TABLET BY MOUTH EVERY DAY 90 tablet 3 02/25/2023 05/18/2023 Discontinued (Reorder) Start: 01-27-2023 take 50 mg by mouth once daily Losartan Active 50 MG PO Daily January 27, 2023 12:00am Start: 01-15-2022 take 1 tablet by summer th once daily Losartan Potassium 50 MG Oral Tablet TAKE 1 TABLET DAILY. Quantity: 90 Refills: 3 Ordered: 12-Feb-2022 Michael Strauss DO Start : 15-Jan-2022 Active Start: 10-31-2021 End: 01-27-2023 take 25 mg by mouth once daily Losartan Discontinued 2 5 MG PO Daily October 31, 2021 12:00am January 27, 2023 2:38pm metoprolol tartrate 50 mg oral tablet (20 sources) beta-Adrenergic Kimmie Start: 03-10-2023 End: 03-09-2024 take 0.5 tablet by mouth twice daily metoprolol tartrate (Lopressor) 50 mg tablet Indications: Accelerated hypertension Take 0.5 tablets by mouth 2 times a day. 90 tablet 3 03/10/2023 03/09/2024 Active Start: 01-29-2023 take 25 mg by mouth twice ila y Metoprolol Tartrate Active 25 MG PO Twice daily January 29, 2023 12:00am Start: 12-17-2021 End: 03-10-2023 take 1 tablet by mouth once daily metoprolol tartrate (Lopressor) 50 mg tablet Indications: Accelerated hypertension Take 1 tablet by mouth once daily. 90 tablet 3 01/14/2023 03/10/2023 Discontinued (Reorder) take 0.5 tablet by m outh twice daily Metoprolol Tartrate 50 MG 1/2 tablet Orally twice a day Active take 1 tablet by summer th every twelve hours Metoprolol Tartrate 50 MG 1 tablet with food Orally Twice a day Active nitroglycerin 0.4 mg sublingual tablet (3 sources) Nitrate Vasodilator Start: 01-28-2023 Nitroglycerin Active 0.4 MG SUBLINGUAL Q5M January 28, 2023 12:00am do not exceed 3 doses per episode spironolactone 25 mg oral tablet (20 sources) Aldosterone Antagonist Start: 03-12-2017 End: 01-14-2024 take 1 tablet by mouth once daily spironolactone (Aldactone) 25 mg tablet Indications: Accelerated hypertension Take 1 tablet (25 mg) by mouth once daily. 90 tablet 3 01/14/2023 05/18/2023 Discontinued (Therapy completed) Start: 03-12-2017 take 12.5 mg by mout h once daily Spironolactone Active 12.5 MG PO Daily March 12, 2017 1:00am Completed/Discontinued Medications Medication Drug Class(es) Dates Sig (Normalized) Sig (Original) Calcium (10 sources) Phosphate Binder, Calcium Calcium 600 + D TABS TAKE 1 TABLET DAILY. Quantity: 0 Refills: 0 Ordered: 09-Jan-2021 DO Active cephalexin 500 mg oral capsule (3 sources) Cephalosporin Antibacterial Start: 03-12-2017 End: 01-27-2023 take 1 capsule by mouth three times daily Cephalexin (Keflex) 500 mg capsule Discontinued 500 MG PO Three times daily March 12, 2017 1:00am January 27, 2023 8:01am nebivolol 10 mg oral tablet (3 sources) Start: 03-12-2017 End: 01-27-2023 take 1 tablet by mouth twice daily Nebivolol (Bystolic) 10 mg tablet Discontinued 10 MG PO Twice daily March 12, 2017 1:00am January 27, 2023 8:03am tiZANidine 2 mg oral tablet (4 sources) Central alpha-2 Adrenergic Agonist Start: 11-03-2021 take 1 tablet by mouth twice daily as needed tiZANidine HCl - 2 MG Oral Tablet TAKE 1 TABLET BY MOUTH TWICE A DAY NEEDED Quantity: 20 Refills: 0 Ordered: 03-Nov-2021 DO Start : 03-Nov-2021 Active valsartan 320 mg oral tablet (3 sources) Angiotensin 2 Receptor Kimmie Start: 03-12-2017 End: 01-27-2023 take 320 mg by mouth once daily Valsartan Discontinued 320 MG PO Daily March 12, 2017 1:00am January 27, 2023 8:03am Problems Active Problems Problem Classification Problem Date Documented Date Episodic/Chronic Cardiac dysrhythmias (20 sources) Paroxysmal atrial fibrillation; Translations: [Atrial fibrillation] Onset: 3 01-27-2023 Chronic Chronic kidney disease (20 sources) Chronic kidney disease stage 3; Translations: [Chronic kidney disease, Stage III (moderate)] Onset: 3 03-10-2023 Chronic Chronic kidney disease (11 sources) Chronic kidney disease; Translations: [Chronic kidney disease, stage 3b] Onset: 2 Resolved: 2 Chronic obstructive pulmonary disease and bronchiectasis (5 sources) Bronchitis; Translations: [Bronchitis, not specified as acute or chronic] Episodic Coronary atherosclerosis and other heart disease (3 sources) Coronary arteriosclerosis; Translations: [Atherosclerotic heart disease of [place] coronary artery without angina pectoris] Chronic Deficiency and other anemia (8 sources) Anemia of renal disease; Translations: [Anemia in chronic kidney disease] Chronic Disorders of lipid metabolism (20 sources) Hyperlipidemia; Translations: [Other and unspecified hyperlipidemia] Onset: 3 Chronic Essential hypertension (20 sources) Malignant hypertension; Translations: [Malignant essential hypertension] Onset: 2 03-12-2017 Chronic Fluid and electrolyte disorders (5 sources) Hypo-osmolality and hyponatremia; Translations: [HYPO-OSMOLALITY AND HYPONATREMIA] Onset: 2 Resolved: 2 Episodic Fracture of lower limb (5 sources) Closed fracture of foot; Translations: [Unspecified fracture of left foot, initial encounter for closed fracture] Episodic Genitourinary symptoms and ill-defined conditions (10 sources) Genitourinary symptoms; Translations: [Unspecified symptoms and signs involving the genitourinary system] Episodic Hypertension with complications and secondary hypertension (17 sources) Hypertensive renal disease; Translations: [Hypertensive chronic kidney disease with stage 1 through stage 4 chronic kidney disease, or unspecified chronic kidney disease] Onset: 2 Resolved: 2 Chronic Nonspecific chest pain (5 sources) Chest pain; Translations: [Chest pain, unspecified] Onset: 3 01-27-2023 Episodic Other circulatory disease (5 sources) Elevated blood-pressure reading without diagnosis of hypertension; Translations: [Elevated blood-pressure reading, without diagnosis of hypertension] Episodic Other diseases of kidney and ureters (8 sources) Secondary hyperparathyroidism; Translations: [Secondary hyperparathyroidism of renal origin] Chronic Other diseases of kidney and ureters (2 sources) Secondary hyperparathyroidism of renal origin; Translations: [SEC HYPERPARATHYROIDISM RENAL ORIGN] Onset: 2 Resolved: 2 Chronic Other endocrine disorders (7 sources) Hypoparathyroidism; Translations: [Hypoparathyroidism, unspecified] Chronic Other endocrine disorders (3 sources) Hypoparathyroidism, unspecified Onset: 2 Resolved: 2 Chronic Other injuries and conditions due to external causes (5 sources) History of fall; Translations: [History of falling] Episodic Peripheral and visceral atherosclerosis (12 sources) Renal artery stenosis; Translations: [Atherosclerosis of renal artery] Onset: 3 12-16-2022 Chronic Residual codes; unclassified (5 sources) Immunization refused ; Translations: [Immunization not carried out because of patient refusal] Episodic Residual codes; unclassified (2 sources) Body mass index (BMI) 22.0-22.9, adult; Translations: [Body mass index (BMI) 22.0-22.9, adult] Onset: 3 Episodic Sprains and strains (5 sources) Strain of muscle of left upper arm; Translations: [Strain of other muscles, fascia and tendons at shoulder and upper arm level, left arm, initial encounter] Episodic Thyroid disorders (20 sources) Hypothyroidism; Translations: [Unspecified acquired hypothyroidism] Onset: 4 Chronic Past or Other Problems Problem Classification Problem Date Documented Da te Episodic/Chronic Acute myocardial infarction (4 sources) Myocardial infarction; Translations: [Non-ST elevation (NSTEMI) myocardial infarction] Onset: 01-28-2023 Resolved: 05-18-2023 01-28-2023 Chronic Other screening for suspected conditions (not mental disorders or infectious disease) (4 sources) Raised cardiac enzyme or marker; Translations: [Other specified abnormal findings of blood chemistry] Onset: 01-28-2023 01-27-2023 Episodic Residual codes; unclassified (15 sources) Body mass index 20-24 - normal; Translations: [Body Mass Index between 19-24, adult] Onset: 03-10-2023 Resolved: 05-18-2023 03-10-2023 Episodic Screening and history of mental health and substance abuse codes (12 sources) Ex-smoker; Translations: [Personal history of tobacco use] Onset: 12-16-2022 12-16-2022 Episodic Comment on above: quit 1966; Spondylosis; intervertebral disc disorders; other back problems (5 sources) Backache with radiation; Translations: [Dorsalgia, unspecified] Onset: 01-28-2023 01-27-2023 Episodic Unclassified (2 sources) Onset: 03-10-2023 Resolved: 05-18-2023 03-10-2023 Results Test Name Value Interpretation Reference Range Facility Basic Metabolic Panelon Anion gap [Moles/Vol] 12.5 mmol/L Normal 6.0-15.0 [facility] Comment on above: Performed By: #### B MP #### [facility] [address] Calcium [Mass/Vol] 9.5 mg/dL Normal 8.6-10.3 [facility] Comment on above: Performed By: #### B MP #### [facility] [address] Chloride [Moles/Vol] 96 mmol/L Low 98-[address] [facility] Comment on above: Performed By: #### B MP #### [facility] [address] CO2 [Moles/Vol] 25.5 mmol/L Normal 21.0-31.0 [facility] Comment on above: Performed By: #### B MP #### [facility] [address] Creatinine [Mass/Vol] 1.18 mg/dL Normal 0.60-1.20 [facility] Comment on above: Performed By: #### B MP #### [facility] [address] [place] [address] [place] Creatinine Clr Calc Pharmacy 31.19 [facility] Comment on above: Result Comment: PERF ORMED BY: [place] [address] PATHOLOGIST EXPLOSIVE ORDNANCE TECHNICIAN LI LEWIS M.D. Performed By: #### B MP #### [facility] [address] [place] [address] [place] GFR/1.73 sq M.predicted MDRD (S/P/Bld) [Vol rate/Area] 45.829 mL/min/{1.73_m2} Normal [facility] Comment on above: Performed By: #### B MP #### [facility] [address] Glucose [Mass/Vol] 82 mg/dL Normal 70-100 [facility] Comment on above: Result Comment: [facility] Glucose Reference Range is dependent on time and content of last meal. Glucose of more than 200 mg/dL in a nonstressed, ambulatory subject supports the diagnosis of Diabetes Mellitus. ADA recommended reference range Performed By: #### B MP #### [facility] [address] Potassium [Moles/Vol] 4.0 mmol/L Normal 3.5-5.1 [facility] Comment on above: Performed By: #### B MP #### [facility] [address] Sodium [Moles/Vol] 130 mmol/L Low 136-145 [facility] Comment on above: Performed By: #### B MP #### [facility] [address] Urea nitrogen [Mass/Vol] 24 mg/dL Normal 7-25 [facility] Comment on above: Performed By: #### B MP #### [facility] [address] [place] [address] [place] Calcium [Mass/volume] in Ser um or PlasmaOrdered By: Elsa Amin on 01-29-2023 Calcium [Mass/Vol] 9.5 mg/dL 8.6-10.3 [facility] Carbon dioxide, total [Moles /volume] in Serum or PlasmaOrdered By: Elsa Amin on 01-29-2023 CO2 [Moles/Vol] 25.5 mmol/L 21.0-31.0 [facility] Chloride [Moles/volume] in S lorraine or PlasmaOrdered By: Elsa Amin on 01-29-2023 Chloride [Moles/Vol] 96 mmol/L 98-[address] [facility] Creatinine [Mass/volume] in Serum or PlasmaOrdered By: Elsa Amin on 01-29-2023 Creatinine [Mass/Vol] 1.18 mg/dL 0.60-1.20 [facility] Glucose [Mass/volume] in Ser um or PlasmaOrdered By: Elsa Amin on 01-29-2023 Glucose [Mass/Vol] 82 mg/dL 70-100 [facility] Comment on above: ADA recommended refe rence rangeRandom Glucose Reference Range is dependent on time and content of last meal. Glucose of more than 200 mg/dL in a nonstressed, ambulatory subject supports the diagnosis of Diabetes Mellitus. No Panel InformationOrdered By: Elsa Amin on 01-29-2023 Estimated GFR (CKD-EPI) 45.829 mL/Min [facility] Creatinine Clearance (Chem 31.19 [facility] Potassium [Moles/volume] in Serum or PlasmaOrdered By: Elsa Amin on 01-29-2023 Potassium [Moles/Vol] 4.0 mmol/L 3.5-5.1 [facility] Serum or plasma anion gap de terminationOrdered By: Elsa Amin on 01-29-2023 Anion gap [Moles/Vol] 12.5 mmol/L 6.0-15.0 [facility] Sodium [Moles/volume] in Ser um or PlasmaOrdered By: Elsa Amin on 01-29-2023 Sodium [Moles/Vol] 130 mmol/L 136-145 [facility] Urea nitrogen [Mass/volume] in Serum or PlasmaOrdered By: Elsa Amin on 01-29-2023 Urea nitrogen [Mass/Vol] 24 mg/dL 7-25 [facility] Activated partial thrombopla stin time (aPTT) in platelet poor plasma by coagulation aOrdered By: Willie Lyon on 01-27-2023 aPTT Coag (PPP) [Time] 31.7 s 25.1-36.5 [facility] Comment on above: A hematocrit value g reater than 55% may lead to inaccurate results in coagulation testing. Patients having hematocrit values >55% require a special collection tube for coagulation studies. Please contact the laboratory at [phone] for redraw instructions. Alanine aminotransferase [En zymatic activity/volume] in Serum or PlasmaOrdered By: Willie Lyon on 01-27-2023 ALT [Catalytic activity/Vol] 9 U/L 7-52 [facility] Albumin [Mass/volume] in Ser um or Plasma by Bromocresol green (BCG) dye binding methoOrdered By: Willie Lyon on 01-27-2023 Albumin BCG dye [Mass/Vol] 4.0 g/dL 3.5-5.7 [facility] Alkaline phosphatase [Enzyma tic activity/volume] in Serum or PlasmaOrdered By: Willie Lyon on 01-27-2023 ALP [Catalytic activity/Vol] 46 U/L 34-104 [facility] Aspartate aminotransferase [ Enzymatic activity/volume] in Serum or PlasmaOrdered By: Willie Lyon on 01-27-2023 AST [Catalytic activity/Vol] 19 U/L 13-39 [facility] B-Type Natriuretic Peptideon 01-27-2023 Natriuretic peptide B (Bld) [Mass/Vol] 359.0 pg/mL High 5-100 [facility] Comment on above: Result Comment: PERF ORMED BY: [place] [address] PATHOLOGIST EXPLOSIVE ORDNANCE TECHNICIAN LI LEWIS M.D. Performed By: #### P TT, HS TROP, PT, CK, BNP #### [facility] [address] Basophils Auto (Bld) [#/Vol] Ordered By: Willie Lyon on 01-27-2023 Basophils (Bld) [#/Vol] 0.1 10*3/uL 0.0-0.2 [facility] Basophils/100 WBC Auto (Bld) Ordered By: Willie Lyon on 01-27-2023 Basophils/100 WBC (Bld) 1.0 % . [facility] Bilirubin.total [Mass/volume ] in Serum or PlasmaOrdered By: Willie Lyon on 01-27-2023 Bilirubin [Mass/Vol] 0.7 mg/dL 0.3-1.[address] [facility] Calcium [Mass/volume] in Ser um or PlasmaOrdered By: Willie Lyon on 01-27-2023 Calcium [Mass/Vol] 9.8 mg/dL 8.6-10.3 [facility] Carbon dioxide, total [Moles /volume] in Serum or PlasmaOrdered By: Willie Lyon on 01-27-2023 CO2 [Moles/Vol] 27.4 mmol/L 21.0-31.0 [facility] Chloride [Moles/volume] in S lorraine or PlasmaOrdered By: Willie Lyon on 01-27-2023 Chloride [Moles/Vol] 98 mmol/L 98-107 [facility] Complete Blood Count Auto Di ffon 01-27-2023 Basophils (Bld) [#/Vol] 0.1 10*3/uL Normal 0.0-0.2 [facility] Comment on above: Result Comment: PERF ORMED BY: [place] [address] PATHOLOGIST EXPLOSIVE ORDNANCE TECHNICIAN LI LEWIS M.D. Performed By: #### P TT, HS TROP, PT, CK, BNP #### [facility] [address] [place] [address] [place] Basophils/100 WBC (Bld) 1.0 % Normal . [facility] Comment on above: Performed By: #### P TT, HS TROP, PT, CK, BNP #### [facility] [address] [place] [address] [place] Eosinophils (Bld) [#/Vol] 0.1 10*3/uL Normal 0.0-0.45 [facility] Comment on above: Performed By: #### P TT, HS TROP, PT, CK, BNP #### [facility] [address] [place] [address] [place] Eosinophils/100 WBC (Bld) 1.7 % Normal . [facility] Comment on above: Performed By: #### P TT, HS TROP, PT, CK, BNP #### [facility] [address] [place] [address] [place] Erythrocyte distribution width (RBC) [Ratio] 13.7 % Normal 11.9-15.3 [facility] Comment on above: Performed By: #### P TT, HS TROP, PT, CK, BNP #### [address] Hematocrit (Bld) [Volume fraction] 41.4 % Normal 34.0-46.4 [facility] Comment on above: Performed By: #### P TT, HS TROP, PT, CK, BNP #### [address] Hemoglobin (Bld) [Mass/Vol] 14.0 g/dL Normal 11.8-15.4 [facility] Comment on above: Performed By: #### P TT, HS TROP, PT, CK, BNP #### [address] Lymphocytes (Bld) [#/Vol] 1.6 10*3/uL Normal 1.00-4.8 [facility] Comment on above: Performed By: #### P TT, HS TROP, PT, CK, BNP #### [address] Lymphocytes/100 WBC (Bld) 23.7 % Normal . [facility] Comment on above: Performed By: #### P TT, HS TROP, PT, CK, BNP #### [address] MCH (RBC) [Entitic mass] 29.7 pg Normal 24.7-34.3 [facility] Comment on above: Performed By: #### P TT, HS TROP, PT, CK, BNP #### [address] MCV (RBC) [Entitic vol] 87.5 fL Normal 80-100 [facility] Comment on above: Performed By: #### P TT, HS TROP, PT, CK, BNP #### [address] Mean Corpuscular HGB Conc 33.9 g/dL Normal 32.0-35.0 [facility] Comment on above: Performed By: #### P TT, HS TROP, PT, CK, BNP #### [address] Monocytes (Bld) [#/Vol] 0.5 10*3/uL Normal 0.0-0.8 [facility] Comment on above: Performed By: #### P TT, HS TROP, PT, CK, BNP #### [address] Monocytes/100 WBC (Bld) 18.32 % Normal 0.00-20.00 [facility] Comment on above: Performed By: #### P TT, HS TROP, PT, CK, BNP #### [address] Monocytes/100 WBC (Bld) 7.4 % Normal . [facility] Comment on above: Performed By: #### P TT, HS TROP, PT, CK, BNP #### [address] Neutrophils (Bld) [#/Vol] 4.6 10*3/uL Normal 1.8-7.7 [facility] Comment on above: Performed By: #### P TT, HS TROP, PT, CK, BNP #### [address] Neutrophils/100 WBC (Bld) 66.2 % Normal . [facility] Comment on above: Performed By: #### P TT, HS TROP, PT, CK, BNP #### [address] NRBC% 0.1 /100{WBC} Normal 0-0.5 [facility] Comment on above: Performed By: #### P TT, HS TROP, PT, CK, BNP #### [address] Platelet mean volume (Bld) [Entitic vol] 7.7 fL Normal 6.3-10.7 [facility] Comment on above: Performed By: #### P TT, HS TROP, PT, CK, BNP #### [place] [id number] [place] Platelets (Bld) [#/Vol] 281 10*3/uL Normal 150-450 [facility] Comment on above: Performed By: #### P TT, HS TROP, PT, CK, BNP #### [address] RBC (Bld) [#/Vol] 4.73 10*6/uL Normal 3.60-5.00 [facility] Comment on above: Performed By: #### P TT, HS TROP, PT, CK, BNP #### [address] WBC (Bld) [#/Vol] 6.9 10*3/uL Normal 3.8-11.6 [facility] Comment on above: Performed By: #### P TT, HS TROP, PT, CK, BNP #### [address] Comprehensive Metabolic Pane clarita 01-27-2023 Albumin [Mass/Vol] 4.0 g/dL Normal 3.5-5.7 [facility] Comment on above: Performed By: #### P TT, HS TROP, PT, CK, BNP #### [address] Albumin/Globulin [Mass ratio] 1.4 {ratio} Normal [facility] Comment on above: Performed By: #### P TT, HS TROP, PT, CK, BNP #### [address] ALP [Catalytic activity/Vol] 46 U/L Normal 34-104 [facility] Comment on above: Performed By: #### P TT, HS TROP, PT, CK, BNP #### [address] ALT [Catalytic activity/Vol] 9 U/L Normal 7-52 [facility] Comment on above: Performed By: #### P TT, HS TROP, PT, CK, BNP #### [address] Anion gap [Moles/Vol] 11.2 mmol/L Normal 6.0-15.0 [facility] Comment on above: Performed By: #### P TT, HS TROP, PT, CK, BNP #### [facility] [address] AST [Catalytic activity/Vol] 19 U/L Normal 13-39 [facility] Comment on above: Performed By: #### P TT, HS TROP, PT, CK, BNP #### [facility] [address] Bilirubin [Mass/Vol] 0.7 mg/dL Normal 0.3-1.[address] [facility] Comment on above: Performed By: #### P TT, HS TROP, PT, CK, BNP #### [address] Calcium [Mass/Vol] 9.8 mg/dL Normal 8.6-10.3 [facility] Comment on above: Performed By: #### P TT, HS TROP, PT, CK, BNP #### [address] Chloride [Moles/Vol] 98 mmol/L Normal 98-[address] [facility] Comment on above: Performed By: #### P TT, HS TROP, PT, CK, BNP #### [address] CO2 [Moles/Vol] 27.4 mmol/L Normal 21.0-31.0 [facility] Comment on above: Performed By: #### P TT, HS TROP, PT, CK, BNP #### [facility] [address] [place] [address] [place] Creatinine [Mass/Vol] 1.45 mg/dL High 0.60-1.20 [facility] Comment on above: Performed By: #### P TT, HS TROP, PT, CK, BNP #### [facility] [address] [place] [address] [place] Creatinine Clr Calc Pharmacy 25.39 Normal [facility] Comment on above: Result Comment: PERF ORMED BY: [place] [address] PATHOLOGIST EXPLOSIVE ORDNANCE TECHNICIAN LI LEWIS M.D. Performed By: #### P TT, HS TROP, PT, CK, BNP #### [address] GFR/1.73 sq M.predicted MDRD (S/P/Bld) [Vol rate/Area] 35.790 mL/min/{1.73_m2} [facility] Comment on above: Performed By: #### P TT, HS TROP, PT, CK, BNP #### [address] Globulin (S) [Mass/Vol] 2.9 g/dL [facility] Comment on above: Performed By: #### P TT, HS TROP, PT, CK, BNP #### [address] Glucose [Mass/Vol] 105 mg/dL High 70-100 [facility] Comment on above: Result Comment: [facility] Glucose Reference Range is dependent on time and content of last meal. Glucose of more than 200 mg/dL in a nonstressed, ambulatory subject supports the diagnosis of Diabetes Mellitus. ADA recommended reference range Performed By: #### P TT, HS TROP, PT, CK, BNP #### [address] Potassium [Moles/Vol] 4.6 mmol/L Normal 3.5-5.1 [facility] Comment on above: Performed By: #### P TT, HS TROP, PT, CK, BNP #### [address] Protein [Mass/Vol] 6.9 g/dL Normal 6.4-8.9 [facility] Comment on above: Performed By: #### P TT, HS TROP, PT, CK, BNP #### [address] Sodium [Moles/Vol] 132 mmol/L Low 136-145 [facility] Comment on above: Performed By: #### P TT, HS TROP, PT, CK, BNP #### [facility] [address] [place] [address] [place] Urea nitrogen [Mass/Vol] 30 mg/dL High 10-20 [facility] Comment on above: Performed By: #### P TT, HS TROP, PT, CK, BNP #### [facility] [address] [place] [address] [place] Creatine Kinaseon 01-27-2023 CK [Catalytic activity/Vol] 52 U/L Normal [facility] Comment on above: Performed By: #### P TT, HS TROP, PT, CK, BNP #### [facility] [address] Creatine kinase [Enzymatic a ctivity/volume] in Serum or PlasmaOrdered By: Willie Lyon on 01-27-2023 CK [Catalytic activity/Vol] 52 U/L [facility] Creatinine [Mass/volume] in Serum or PlasmaOrdered By: Willie Lyon on 01-27-2023 Creatinine [Mass/Vol] 1.45 mg/dL 0.60-1.20 [facility] ECG 12 lead ECGon 01-27-2023 ECG 12 lead ECG [facility] [place] [address] [place] [address] Electrocardiograph Report Signed Patient: Janelle Burt MR#: [id number] : 1940 Acct:[id number] Age/Sex: 82 / F ADM Date: 01/27/23 Loc: Room: [address] [place] [address] Type: ADM INOo Attending Dr: Elsa Amin MD Ordering Provider: Willie Lyon DO Date of Service: 01/27/2304/20/853 ECG/ECG 12 lead ECG: Back Pain/Injury Copies to: Test Reason : Blood Pressure : 144/070 mmHG Vent. Rate : 075 BPM Atrial Rate : 075 BPM P-R Int : 218 ms QRS Dur : 082 ms QT Int : 372 ms P-R-T Axes : 000 -42 057 degrees QTc Int : 415 ms Sinus rhythm with 1st degree AV block Left axis deviation Low voltage QRS Confirmed by Willie LYON DO ([id number]) on 01/27/2023 3:01:31 PM Referred By: Electronically Signed By:Willie LYON DO Transcribed By: MUS Signed By Willie Lyon DO 1 03/29/22 1501 Normal [facility] ECG 12 lead ECG [facility] [place] [address] Electrocardiograph Report Signed Patient: Janelle Burt MR#: [id number] : 1940 Acct:[id number] Age/Sex: 82 / F ADM Date: 01/27/23 Loc: Room: [address] [place] [address] Type: ADM INOo Attending Dr: Elsa Amin MD Ordering Provider: Willie Lyon DO Date of Service: 01/27/2304/20/806 ECG/ECG 12 lead ECG: Back Pain/Injury Copies to: Test Reason : Blood Pressure : 128/082 mmHG Vent. Rate : 098 BPM Atrial Rate : 312 BPM P-R Int : 000 ms QRS Dur : 084 ms QT Int : 342 ms P-R-T Axes : 000 -45 065 degrees QTc Int : 436 ms Atrial fibrillation Left axis deviation Confirmed by Willie LYON DO ([id number]) on 01/27/2023 11:37:45 AM Referred By: Electronically Signed By:Willie LYON DO Transcribed By: MUS Signed By Willie Lyon DO 1 03/29/22 1137 Normal [facility] Eosinophils Auto (Bld) [#/Vo l]Ordered By: Willie Lyon on 01-27-2023 Eosinophils (Bld) [#/Vol] 0.1 10*3/uL 0.0-0.45 [facility] Eosinophils/100 WBC Auto (Bl d)Ordered By: Willie Lyon on 01-27-2023 Eosinophils/100 WBC (Bld) 1.7 % . [facility] Erythrocyte distribution wid th Auto (RBC) [Ratio]Ordered By: Willie Lyon on 01-27-2023 Erythrocyte distribution width (RBC) [Ratio] 13.7 % 11.9-15.3 [facility] Globulin Calc (S) [Mass/Vol] Ordered By: Willie Lyon on 01-27-2023 Globulin (S) [Mass/Vol] 2.9 g/dL [facility] Glucose [Mass/volume] in Ser um or PlasmaOrdered By: Willie Lyon on 01-27-2023 Glucose [Mass/Vol] 105 mg/dL 70-100 [facility] Comment on above: ADA recommended refe rence rangeRandom Glucose Reference Range is dependent on time and content of last meal. Glucose of more than 200 mg/dL in a nonstressed, ambulatory subject supports the diagnosis of Diabetes Mellitus. Hematocrit Auto (Bld) [Volum e fraction]Ordered By: Willie Lyon on 01-27-2023 Hematocrit (Bld) [Volume fraction] 41.4 % 34.0-46.4 [facility] Hemoglobin [Mass/volume] in BloodOrdered By: Willie Lyon on 01-27-2023 Hemoglobin (Bld) [Mass/Vol] 14.0 g/dL 11.8-15.4 [facility] INR in Platelet poor plasma by Coagulation assayOrdered By: Willie Lyon on 01-27-2023 INR Coag (PPP) [Relative time] 1.0 {INR} [facility] Comment on above: INR Therapeutic Rang e A) Pre- and Peroperative OAT started two weeks before surgery. NOT HIP SURGERY: 1.5 - 2.5 HIP SURGERY: 2 - 3B) Primary and secondary prevention of venous THROMBOSIS: 2 - 3C) Active venous thrombosis, pulmonary embolismand prevention of recurrent venous thrombosis: 2 - 3D) Prevention of arterial thromboembolismincluding patients with mechanical heart valves: 3 - 4.5 Leukocytes [#/volume] correc chacho for nucleated erythrocytes in Blood by Automated counOrdered By: Willie Lyon on 01-27-2023 WBC corrected for nucl RBC Auto (Bld) [#/Vol] 6.9 10*3/uL 3.8-11.6 [facility] Lymphocytes Auto (Bld) [#/Vo l]Ordered By: Willie Lyon on 01-27-2023 Lymphocytes (Bld) [#/Vol] 1.6 10*3/uL 1.00-4.8 [facility] Lymphocytes/100 WBC Auto (Bl d)Ordered By: Willie Lyon on 01-27-2023 Lymphocytes/100 WBC (Bld) 23.7 % . [facility] MCH Auto (RBC) [Entitic mass ]Ordered By: Willie Lyon on 01-27-2023 MCH (RBC) [Entitic mass] 29.7 pg 24.7-34.3 [facility] MCHC Auto (RBC) [Mass/Vol]Or dered By: Willie Lyon on 01-27-2023 MCHC (RBC) [Mass/Vol] 33.9 g/dL 32.0-35.0 [facility] MCV Auto (RBC) [Entitic vol] Ordered By: Willie Lyon on 01-27-2023 MCV (RBC) [Entitic vol] 87.5 fL 80-100 [facility] Magnesiumon 01-27-2023 Magnesium [Mass/Vol] 2.0 mg/dL Normal 1.9-2.[address] [facility] Comment on above: Performed By: #### P TT, HS TROP, PT, CK, BNP #### [facility] [address] [place] [address] Magnesium [Mass/volume] in S lorraine or PlasmaOrdered By: Willie Lyon on 01-27-2023 Magnesium [Mass/Vol] 2.0 mg/dL 1.9-2.[address] [facility] Monocyte distribution width [Entitic volume] in Blood by AutomatedOrdered By: Willie Lyon on 01-27-2023 Monocyte distribution width Auto (Bld) [Entitic vol] 18.32 % 0.00-20.00 [facility] Monocytes Auto (Bld) [#/Vol] Ordered By: Willie Lyon on 01-27-2023 Monocytes (Bld) [#/Vol] 0.5 10*3/uL 0.0-0.8 [facility] Monocytes/100 WBC Auto (Bld) Ordered By: Willie Lyon on 01-27-2023 Monocytes/100 WBC (Bld) 7.4 % . [facility] Natriuretic peptide B [Mass/ Vol]Ordered By: Willie Lyon on 01-27-2023 Natriuretic peptide B (Bld) [Mass/Vol] 359.0 pg/mL 5-100 [facility] Neutrophils Auto (Bld) [#/Vo l]Ordered By: Willie Lyon on 01-27-2023 Neutrophils (Bld) [#/Vol] 4.6 10*3/uL 1.8-7.7 [facility] Neutrophils/100 WBC Auto (Bl d)Ordered By: Willie Lyon on 01-27-2023 Neutrophils/100 WBC (Bld) 66.2 % . [facility] No Panel InformationOrdered By: Willie Lyon on 01-27-2023 Estimated GFR (CKD-EPI) 35.790 mL/Min [facility] Creatinine Clearance (Chem 25.39 [facility] Nucleated erythrocytes [Pres ence] in Blood by Automated countOrdered By: Willie Lyon on 01-27-2023 Nucleated RBC Auto Ql (Bld) 0.1 /100{WBC} 0-0.5 [facility] Partial Thromboplastin Timeo n 01-27-2023 aPTT Coag (Bld) [Time] 31.7 s Normal 25.1-36.5 [facility] Comment on above: Result Comment: A he matocrit value greater than 55% may lead to inaccurate results in coagulation testing. Patients having hematocrit values >55% require a special collection tube for coagulation studies. Please contact the laboratory at [phone] for redraw instructions. PERFORMED BY: [place] [address] PATHOLOGIST EXPLOSIVE ORDNANCE TECHNICIAN LI LEWIS M.D. Performed By: #### P TT, HS TROP, PT, CK, BNP #### [facility] [address] [place] [address] Platelet mean volume Auto (B ld) [Entitic vol]Ordered By: Willie Lyon on 01-27-2023 Platelet mean volume (Bld) [Entitic vol] 7.7 fL 6.3-10.7 [facility] Platelets Auto (Bld) [#/Vol] Ordered By: Willie Lyon on 01-27-2023 Platelets (Bld) [#/Vol] 281 10*3/uL 150-450 [facility] Potassium [Moles/volume] in Serum or PlasmaOrdered By: Willie Lyon on 01-27-2023 Potassium [Moles/Vol] 4.6 mmol/L 3.5-5.1 [facility] Protein [Mass/volume] in Ser um or PlasmaOrdered By: Willie Lyon on 01-27-2023 Protein [Mass/Vol] 6.9 g/dL 6.4-8.9 [facility] Prothrombin Time INRon 01-27 INR Coag (PPP) [Relative time] 1.0 {INR} Normal [facility] Comment on above: Result Comment: INR Therapeutic Range A) Pre- and Peroperative OAT started two weeks before surgery. NOT HIP SURGERY: 1.5 - 2.5 HIP SURGERY: 2 - 3 B) Primary and secondary prevention of venous THROMBOSIS: 2 - 3 C) Active venous thrombosis, pulmonary embolism and prevention of recurrent venous thrombosis: 2 - 3 D) Prevention of arterial thromboembolism including patients with mechanical heart valves: 3 - 4.5 Performed By: #### P TT, HS TROP, PT, CK, BNP #### [facility] [address] PT Coag (PPP) [Time] 12.2 s Normal 9.0-12.[address] [facility] Comment on above: Result Comment: A he matocrit value greater than 55% may lead to inaccurate results in coagulation testing. Patients having hematocrit values >55% require a special collection tube for coagulation studies. Please contact the laboratory at [phone] for redraw instructions. Performed By: #### P TT, HS TROP, PT, CK, BNP #### [facility] [address] [place] [id number] [facility] Prothrombin time (PT)Ordered By: Willie Lyon on 01-27-2023 PT Coag (PPP) [Time] 12.2 s 9.0-12.[address] [facility] Comment on above: A hematocrit value g reater than 55% may lead to inaccurate results in coagulation testing. Patients having hematocrit values >55% require a special collection tube for coagulation studies. Please contact the laboratory at [phone] for redraw instructions. RBC Auto (Bld) [#/Vol]Ordere d By: Willie Lyon on 01-27-2023 RBC (Bld) [#/Vol] 4.73 10*6/uL 3.60-5.00 [facility] Serum or plasma albumin/glob ulin mass ratioOrdered By: Willie Lyon on 01-27-2023 Albumin/Globulin [Mass ratio] 1.4 {ratio} [facility] Serum or plasma anion gap de terminationOrdered By: Willie Lyon on 01-27-2023 Anion gap [Moles/Vol] 11.2 mmol/L 6.0-15.0 [facility] Sodium [Moles/volume] in Ser um or PlasmaOrdered By: Willie Lyon on 01-27-2023 Sodium [Moles/Vol] 132 mmol/L 136-145 [facility] Thyroid Stimulating Hormoneo n 01-27-2023 TSH Qn 0.18 m[IU]/L Low 0.45-5.33 [facility] Comment on above: Result Comment: PERF ORMED BY: [place] [address] PATHOLOGIST EXPLOSIVE ORDNANCE TECHNICIAN LI LEWIS M.D. Performed By: #### P TT, HS TROP, PT, CK, BNP #### [facility] [address] [place] [address] [place] Thyrotropin [Units/volume] i n Serum or PlasmaOrdered By: Willie Lyon on 01-27-2023 TSH Qn 0.18 m[IU]/L 0.45-5.33 [facility] Troponin I High Sensitivityo n 01-27-2023 Troponin I High Sensitivity 29.5 pg/mL High 0.0-15.0 [facility] Comment on above: Result Comment: PERF ORMED BY: [place] [address] PATHOLOGIST EXPLOSIVE ORDNANCE TECHNICIAN LI LEWIS M.D. Performed By: #### P TT, HS TROP, PT, CK, BNP #### [facility] [address] [place] [address] Troponin I High Sensitivity 36.3 pg/mL High 0.0-15.0 [facility] Comment on above: Result Comment: PERF ORMED BY: [place] [address] PATHOLOGIST EXPLOSIVE ORDNANCE TECHNICIAN LI LEWIS M.D. Performed By: #### H S TROP #### [facility] [address] [place] [address] Troponin I High Sensitivity 47.3 pg/mL High 0.0-15.0 [facility] Comment on above: Result Comment: PERF ORMED BY: [place] [address] PATHOLOGIST EXPLOSIVE ORDNANCE TECHNICIAN LI LEWIS M.D. Performed By: #### P TT, HS TROP, PT, CK, BNP #### [facility] [address] [place] [address] Troponin I.cardiac [Mass/vol ume] in Serum or Plasma by Detection limit <= 0.01 ng/Ordered By: Elsa Amin on 01-27-2023 Troponin I.cardiac DL <= 0.01 ng/mL [Mass/Vol] 29.5 pg/mL 0.0-15.0 [facility] Troponin I.cardiac [Mass/vol ume] in Serum or Plasma by Detection limit <= 0.01 ng/Ordered By: Willie Lyon on 01-27-2023 Troponin I.cardiac DL <= 0.01 ng/mL [Mass/Vol] 47.3 pg/mL 0.0-15.0 [facility] Urea nitrogen [Mass/volume] in Serum or PlasmaOrdered By: Willie Lyon on 01-27-2023 Urea nitrogen [Mass/Vol] 30 mg/dL 7-25 [facility] WBC Auto (Bld) [#/Vol]Ordere d By: Willie Lyon on 01-27-2023 WBC (Bld) [#/Vol] 6.9 10*3/uL 3.8-11.6 [facility] XR chest 2V*on 01-27-2023 XR chest 2V* [facility] [place] [address] [place] [address] XRay Report Signed Patient: Janelle Burt MR#: [id number] : 1940 Acct:[id number] Age/Sex: 82 / F ADM Date: 01/27/23 Loc: ER Room: Type: [facility] ER Attending Dr: Copies to: Willie Lyon DO Ordering Provider: Willie Lyon DO Date of Service: 01/27/23 XR/XR chest 2V*: Back Pain/Injury XR chest 2V* 01/27/2023 8:26 AM SIGNS AND SYMPTOMS: Back pain radiating into arms and jaw PROTOCOL: Frontal and lateral radiographs of the chest COMPARISON: 08/14/2013 FINDINGS: The trachea is midline. Atherosclerotic changes are noted in the thoracic aorta. The heart and mediastinal structures are within normal limits. There is linear scarring or atelectasis at the left lung base. Degenerative changes are noted in the thoracic spine. There is a dextro convex curvature of the thoracic spine. The bony thorax is intact. XR/XR chest 2V* IMPRESSION: There is linear scarring or atelectasis at the left lung base. Impression dictated by: Avinash Nicole M.D.01/27/2023 10:10 AM Dictation Location: [place] [address] Transcribed By: [facility] 01/27/23 1010 Dictated By: Avinash Nicole II, MD 01/27/23 1008 Signed By: 01/27/23 1010 [facility] PTH INTACTon 06-04-2022 PTH, Intact 10 pg/mL Critically low 15-65 [facility] Comment on above: Performed By: #### P THINT #### [facility] [address] [place] [address] Dr. Dario Gil FREE T4on 06-03-2022 Free T4 [Mass/Vol] 1.03 ng/dL Normal 0.76-1.46 [facility] Comment on above: Performed By: #### H H #### [facility] [address] [place] [address] Dr. Dario Gil HEMOGRAM AND PLATELon 2022 Hematocrit (Bld) [Volume fraction] 39.9 % Normal 36.0-48.0 [facility] Comment on above: Performed By: #### H H #### [facility] [address] [place] [address] Dr. Dario Gil Hemoglobin (Bld) [Mass/Vol] 13.9 g/dL Normal 12.0-16.0 [facility] Comment on above: Performed By: #### H H #### [facility] [address] [place] [address] Dr. Dario Gil MCH (RBC) [Entitic mass] 30.6 pg Normal 26.7-34.0 [facility] Comment on above: Performed By: #### H H #### [facility] [address] [place] [address] Dr. Dario Gil MCHC (RBC) [Mass/Vol] 34.8 g/dL Normal 29.9-35.2 [facility] Comment on above: Performed By: #### H H #### [facility] [address] [place] [address] Dr. Dario Gil MCV (RBC) [Entitic vol] 87.9 fL Normal 81.0-99.0 [facility] Comment on above: Performed By: #### H H #### [facility] [address] [place] [address] Dr. Dario Gil PLT 232 103/ul Normal 150-450 [facility] Comment on above: Performed By: #### H H #### [facility] [address] [place] [address] Dr. Dario Gil RBC 4.54 106/ul Normal 4.20-5.40 [facility] Comment on above: Performed By: #### H H #### [facility] [address] [place] [address] Dr. Dario Gil WBC 5.8 103/ul Normal 4.0-11.0 [facility] Comment on above: Performed By: #### H H #### [facility] [address] [place] [address] Dr. Dario Gil MAGNESIUMon 06-03-2022 Magnesium [Mass/Vol] 1.8 mg/dL Normal 1.8-2.4 [facility] Comment on above: Performed By: #### M G, URIC, RENAL #### [facility] [address] [place] [address] Dr. Dario Gil RENAL FUNCTION PANELon 06-03 Albumin [Mass/Vol] 4.0 g/dL Normal 3.4-5.0 [facility] Comment on above: Performed By: #### M G, URIC, RENAL #### [facility] [address] [place] [address] Dr. Dario Gil Calcium [Mass/Vol] 9.7 mg/dL Normal 8.5-10.1 [facility] Comment on above: Performed By: #### M G, URIC, RENAL #### [facility] [address] [place] [address] Dr. Dario Gil Chloride [Moles/Vol] 98 mmol/L Normal 98-107 [facility] Comment on above: Performed By: #### M Humble, URIC, RENAL #### [facility] [address] [place] [address] Dr. Dario Gil CO2 [Moles/Vol] 29.6 mmol/L Normal 21.0-32.0 [facility] Comment on above: Performed By: #### M Humble, URIC, RENAL #### [facility] [address] [place] [address] Dr. Dario Gil Creatinine [Mass/Vol] 1.37 mg/dL Critically high 0.55-1.02 [facility] Comment on above: Performed By: #### M Humble, URIC, RENAL #### [facility] [address] [place] [address] Dr. Dario Gil EGFR-AF SERBIAN 45 mL/min/1.73m2 Critically low >=60 [facility] Comment on above: Performed By: #### M G, URIC, RENAL #### [facility] [address] [place] [address] Dr. Dario Gil EGFR-NON AF SERBIAN 37 mL/min/1.73m2 Critically low >=60 [facility] Comment on above: Performed By: #### M G, URIC, RENAL #### [facility] [address] [place] [address] Dr. Dario Gil Glucose [Mass/Vol] 99 mg/dL Normal 74-106 [facility] Comment on above: Performed By: #### M G, URIC, RENAL #### [facility] [address] [address] [address] Dario Gil Phosphate [Mass/Vol] 3.5 mg/dL Normal 2.6-4.7 [facility] Comment on above: Performed By: #### M G, URIC, RENAL #### [facility] [address] [place] [address] Dr. Dario Gil Potassium [Moles/Vol] 4.5 mmol/L Normal 3.5-5.1 [facility] Comment on above: Performed By: #### M G, URIC, RENAL #### [facility] [address] [place] [address] Dr. Dario Gil Sodium [Moles/Vol] 134 mmol/L Critically low 136-[address] [facility] Comment on above: Performed By: #### M G, URIC, RENAL #### [facility] [address] [place] [address] Dr. Dario Gil Urea nitrogen [Mass/Vol] 26.0 mg/dL Critically high 7.0-18.0 [facility] Comment on above: Performed By: #### M G, URIC, RENAL #### [facility] [address] [place] [address] Dr. Dario Gil TSHon 06-03-2022 TSH 8.041 uIU/mL Critically high 0.358-3.74 0 [facility] Comment on above: Performed By: #### T SH #### [facility] [address] [place] [address] Dr. Dario Gil UA RANDOM W/MICROSCOPICon BACTERIA NONE SEEN Normal NONE SEEN [facility] Comment on above: Performed By: #### H H #### [facility] [address] [place] [address] Dr. Dario Gil Bilirubin Ql (U) Negative Normal NEGATIVE [facility] Comment on above: Performed By: #### H H #### [facility] [address] [place] [address] Dr. Dario Gil CAST NONE SEEN Normal NONE SEEN [facility] Comment on above: Performed By: #### H H #### [facility] [address] [place] [address] Dr. Dario Gil Clarity (U) CLEAR Normal CLEAR [facility] Comment on above: Performed By: #### H H #### [facility] [address] [place] [address] Dr. Dario Gil Color (U) LT. YELLOW Normal YELLOW [facility] Comment on above: Performed By: #### H H #### [facility] [address] [place] [address] Dr. Dario Gil Crystals LM Nom (Urine sed) NONE SEEN Normal NONE SEEN [facility] Comment on above: Performed By: #### H H #### [facility] [address] [place] [address] Dr. Dario Gil Epithelial cells LM Ql (Urine sed) FEW Abnormal NONE SEEN /RARE [facility] Comment on above: Performed By: #### H H #### [facility] [address] [place] [address] Dr. Dario Gil Glucose Ql (U) Negative Normal NEGATIVE [facility] Comment on above: Performed By: #### H H #### [facility] [address] [place] [address] Dr. Dario Gil Hemoglobin Ql (U) Negative Normal NEGATIVE [facility] Comment on above: Performed By: #### H H #### [facility] [address] [place] [address] Dr. Dario Gil Ketones Ql (U) Negative Normal NEGATIVE [facility] Comment on above: Performed By: #### H H #### [facility] [address] [place] [address] Dr. Dario Gil LEUKOCYTES TRACE Abnormal NEGATIVE [facility] Comment on above: Performed By: #### H H #### [facility] [address] [place] [address] Dr. Dario Gil MUCOUS NONE SEEN Normal NONE SEEN [facility] Comment on above: Performed By: #### H H #### [facility] [address] [place] [address] Dr. Dario Gil Nitrite Ql (U) Negative Normal NEGATIVE [facility] Comment on above: Performed By: #### H H #### [facility] [address] [place] [address] Dr. Dario Gil pH (U) 5.5 [pH] Normal 5-9 [facility] Comment on above: Performed By: #### H H #### [facility] [address] [place] [address] Dr. Dario Gil RBC 0-2 Normal 0-2 [facility] Comment on above: Performed By: #### H H #### [facility] [address] [place] [address] Dr. Dario Gil SPEC GRAVITY 1.010 Normal 1.005-<=1. 025 [facility] Comment on above: Performed By: #### H H #### [facility] [address] [place] [address] Dr. Dario Gil UA PROTEIN Negative Normal NEGATIVE/ TRACE [facility] Comment on above: Performed By: #### H H #### [facility] [address] [place] [address] Dr. Dario Gil Urobilinogen Qn (U) 0.2 {Carlos'U}/dL Normal 0.2 - 1. 0 [facility] Comment on above: Performed By: #### H H #### [facility] [address] [place] [address] Dr. Dario Gil WBC 0-2 Abnormal NONE SEEN [facility] Comment on above: Performed By: #### H H #### [facility] [address] [place] [address] Dr. Dario Gil URIC ACID SERUMon 06-03-2022 Urate [Mass/Vol] 5.1 mg/dL Normal 2.6-6.0 [facility] Comment on above: Performed By: #### M G, URIC, RENAL #### [facility] [address] [place] [address] Dr. Dario Gil URINE T PROTEIN CREAT RATIOo n 06-03-2022 Protein (U) [Mass/Vol] 5.5 mg/dL Normal <=12.[address] [facility] Comment on above: Performed By: #### H H #### [facility] [address] [address] [address] Dario Gil UR PROT CREAT RAT 0.07 Normal [facility] Comment on above: Performed By: #### H H #### [facility] [address] [address] [address] Dario Gil URINE CREAT 77.51 mg/dL Normal 20.00-300. 00 [facility] Comment on above: Performed By: #### H H #### [facility] [address] [address] [address] Dario Gil VITAMIN D 25 OHon 06-03-2022 VIT D 25-OH 58.1 ng/mL Normal [facility] Comment on above: Performed By: #### H H #### [facility] [address] [place] [address] Dr. Dario Gil VIT D RANGES SEE BELOW Normal [facility] Comment on above: Result Comment: <20 ng/mL Vit D deficient 20 - <30 ng/mL Vit D insufficient 30 - 100 ng/mL Vit D sufficient >100 ng/mL Potential Toxicity Performed By: #### H H #### [facility] [address] [place] [address] Dr. Dario Gil Office Visit (Cardiology)on 03-18-2022 Follow-up visit Diagnoses/Problems Assessed Accelerated hypertension (401.0) (I10) Body mass index (BMI) of 24.0 to 24.9 in adult (V85.1) (Z68.24) Patient Instructions Please bring all medicines, vitamins, and herbal supplements with you when you come to the office. Prescriptions will not be filled unless you are compliant with your follow up appointments or have a follow up appointment scheduled as per instruction of your physician. Refills should be requested at the time of your visit. PLAN: Through informed decision making process incorporating patients unique circumstances, the following treatment plan will be initiated: 1. Prescription drug management of cardiovascular medication for efficacy, adherence to treatment, side effect assessment and polypharmacy. Current treatment clinically warranted and to continue without modifications. 2. Return for follow-up; in the interim, contact the office if new symptoms arise. Dr. Strauss as scheduled Chief Complaint Blood pressure f/u: 'doing ok' JANELLE BURT is being seen for a 8 week follow-up of hypertension. Patient presents to the office ambulatory with steady gait. Last evaluated in clinic Dr. Strauss December 2021. At that time, losartan increased to 50 mg daily. She has been compliant with changes. Denies any side effects. Occasionally follows blood pressure at home and for the most part it is been optimal. At goal in the office today. Otherwise, she denies any change in overall cardiovascular status since last office evaluation. History of Present Illness The patient presents for follow-up of essential hypertension. The patient states she has been doing well with her blood pressure control since the last visit. Symptoms: denies impaired vision, denies dyspnea, denies chest pain, denies intermittent leg claudication and denies lower extremity edema. Associated symptoms include no headache. Home monitoring: The patient checks her blood pressure sporadically. Blood pressure control has been good. Surgical History Problems History of Appendectomy History of Cataract surgery Denied: History of Colonoscopy History of Hysterectomy supracervical History of Tonsillectomy Current Meds Medication NameInstruction Aspirin EC 81 MG Oral Tablet Delayed ReleaseTAKE 1 TABLET DAILY. Calcium 600 + D TABSTAKE 1 TABLET DAILY. Fenofibrate 54 MG Oral TabletTake 1 tablet by mouth daily Levothyroxine Sodium 88 MCG Oral CapsuleTAKE 1 CAPSULE BY MOUTH EVERY MORNING BEFORE BREAKFAST ON EMPTY STOMACH Losartan Potassium 50 MG Oral TabletTAKE 1 TABLET DAILY. Metoprolol Tartrate 50 MG Oral TabletTAKE 1 TABLET BY MOUTH EVERY DAY Spironolactone 25 MG Oral TabletTake 1 tablet by mouth daily tiZANidine HCl - 2 MG Oral TabletTAKE 1 TABLET BY MOUTH TWICE A DAY NEEDED Allergies Medication Igwaoxgb-PAT-7 PTWK Adverse Reaction; Shortness of breath;; Recorded By: Oma Douglass; 12/14/2020 2:16:15 PM Medrol (Nestor) TABS Adverse Reaction; Anaphylaxis;; Recorded By: Oma Douglass; 12/14/2020 2:16:15 PM hydrALAZINE Allergy; Diarrhea; Recorded By: Oma Douglass; 12/14/2020 2:16:15 PM lisinopril Allergy; Rash; Recorded By: Oma Douglass; 12/14/2020 2:16:15 PM Norvasc Allergy; Itching; Recorded By: Oma Douglass; 12/14/2020 2:16:15 PM Statins Allergy; Myalgia; Recorded By: Oma Douglass; 12/14/2020 2:16:15 PM TATI Inhibitors Recorded By: Oma Douglass; 12/14/2020 2:16:15 PM sulfa Recorded By: Oma Douglass; 12/14/2020 2:16:15 PM Social History Problems Daily caffeine consumption Coffee 2 cups daily Former smoker (V15.82) (Z87.891) quit 1965 No alcohol use No illicit drug use Review of Systems Constitutional: not feeling tired. Cardiovascular: no chest pain, no palpitations and no lower extremity edema. Respiratory: no shortness of breath during exertion, no orthopnea and no PND. Vitals Vital Signs Recorded: [id number] 11:35AMRecorded: [id number] 11:23AM [id number], [id number], LUE, Sitting Ylipowfyy42, Wkamaouk24, LUE, Sitting Heart Rate60, L Radial Height5 ft 4 in Qjuske586 lb BMI Khxivgmrlu10.2 kg/m2 BSA Calculated1.69 Tobacco Useb) No Falls Screening (Age 18+)a) No falls within the last year Physical Exam Constitutional: alert and in no acute distress. Neck: neck is supple, symmetric, trachea midline, no masses . Pulmonary: no increased work of breathing or signs of respiratory distress and lungs clear to auscultation. Cardiovascular: JVP was normal, regular rhythm, normal S1 and S2, no murmurs and no edema . Abdomen: abdomen non-tender, no masses . Skin: skin warm and dry, normal skin turgor . Psychiatric oriented to person, place and time and normal mood and affect . Signatures Adrien Avalos MSN, LINOLEUM TILE FLOOR LAYER-CRUMB PACKER, PMHNP-BC [facility] [place] Please excuse any errors in grammar or translation related to this dictation. Voice recognition software was utilized to prepare this document. Electronically (more content not included)... Normal Rank By Search Tobacco Screening.on 022 Fall risk assessment a) No falls within the last year -[facility] alexey 250 DO Work Phone: Tobacco use status [facility] b) No -[facility] alexey 250 DO Work Phone: PROF CHEM 8 (BAS METB)on Anion gap [Moles/Vol] 5.7 mmol/L Normal [facility] Comment on above: Performed By: #### H H #### [facility] [address] [address] [address] Dario Gil Calcium [Mass/Vol] 9.3 mg/dL Normal 8.5-10.1 [facility] Comment on above: Performed By: #### H H #### [facility] [address] [address] [address] Dario Gil Chloride [Moles/Vol] 97 mmol/L Critically low 98-107 [facility] Comment on above: Performed By: #### H H #### [facility] [address] [address] [address] Dario Gil CO2 [Moles/Vol] 31.9 mmol/L Normal 21.0-32.0 [facility] Comment on above: Performed By: #### H H #### [facility] [address] [address] [address] Dario Gil Creatinine [Mass/Vol] 1.34 mg/dL Critically high 0.55-1.02 [facility] Comment on above: Performed By: #### H H #### [facility] [address] [address] [address] Dario Gil EGFR-AF SERBIAN 46 mL/min/1.73m2 Critically low >=60 [facility] Comment on above: Performed By: #### H H #### [facility] [address] [address] [address] Dario Gil EGFR-NON AF SERBIAN 38 mL/min/1.73m2 Critically low >=60 [facility] Comment on above: Performed By: #### H H #### [facility] [address] [address] [address] Dario Gil Glucose [Mass/Vol] 92 mg/dL Normal 74-106 [facility] Comment on above: Performed By: #### H H #### [facility] [address], [place] [address] Dr. Dario Gil Potassium [Moles/Vol] 4.6 mmol/L Normal 3.5-5.1 [facility] Comment on above: Performed By: #### H H #### [facility] [address] [place], [place] [address] Dr. Dario Gil Sodium [Moles/Vol] 130 mmol/L Critically low 136-[address] [facility] Comment on above: Performed By: #### H H #### [facility] [address] [place], [place] [address] Dr. Dario Gil Urea nitrogen [Mass/Vol] 28.0 mg/dL Critically high 7.0-18.0 [facility] Comment on above: Performed By: #### H H #### [facility] [address] [id number] Dario Gil Urea nitrogen/Creatinine [Mass ratio] 20.9 mg/mg Normal [facility] Comment on above: Performed By: #### H H #### [facility] [address] [address] [address] Dario Gil Office Visit (Cardiology)on 01-15-2022 Follow-up visit Diagnoses/Problems Assessed Accelerated hypertension (401.0) (I10) Former smoker (V15.82) (Z87.891) quit 1966 Body mass index (BMI) of 23.0 to 23.9 in adult (V85.1) (Z68.23) Orders Accelerated hypertension Start: Losartan Potassium 50 MG Oral Tablet; TAKE 1 TABLET DAILY Basic Metabolic Panel; Status:Active - Retrospective Authorization; Requested for:05Feb2022; SocHx: Former smoker Tobacco Use Screening; Status:Complete; Done: 15Jan2022 Unlinked Stop: Losartan Potassium 25 MG Oral Tablet Patient Instructions Please bring all medicines, vitamins, and herbal supplements with you when you come to the office. Prescriptions will not be filled unless you are compliant with your follow up appointments or have a follow up appointment scheduled as per instruction of your physician. Refills should be requested at the time of your visit. Blood pressure follow up in 8 weeks Follow up in 1 year Chief Complaint JANELLE BURT is being seen for an annual follow-up of. 81-year-old female returns at a early time point with accelerated hypertension. She recently lost her sister has been taking care of her sisters affairs. She has underlying accelerated hypertension, known chronic kidney disease due to the above, multiple medication intolerances and allergies as noted. Blood pressures in 2020 and 2019 were well controlled and even in nephrology outpatient office were also well controlled; however, more recently since the of her sister, her blood pressures have become uncontrolled. We corroborated 2 different measurements this morning at 218/80 and 192/80. We will escalate her losartan to 50 mg daily follow-up with a blood pressure check in the next 8 weeks, we will see her again within 1 year or sooner Surgical History Problems History of Appendectomy History of Cataract surgery Denied: History of Colonoscopy History of Hysterectomy supracervical History of Tonsillectomy Current Meds Medication NameInstruction Aspirin EC 81 MG Oral Tablet Delayed ReleaseTAKE 1 TABLET DAILY. Calcium 600 + D TABSTAKE 1 TABLET DAILY. Fenofibrate 54 MG Oral TabletTake 1 tablet by mouth daily Levothyroxine Sodium 88 MCG Oral CapsuleTAKE 1 CAPSULE BY MOUTH EVERY MORNING BEFORE BREAKFAST ON EMPTY STOMACH Losartan Potassium 25 MG Oral TabletTAKE 1 TABLET DAILY. Metoprolol Tartrate 50 MG Oral TabletTAKE 1 TABLET BY MOUTH EVERY DAY Spironolactone 25 MG Oral TabletTake 1 tablet by mouth daily tiZANidine HCl - 2 MG Oral TabletTAKE 1 TABLET BY MOUTH TWICE A DAY NEEDED Allergies Medication Hyazhejp-PDR-6 PTWK Adverse Reaction; Shortness of breath;; Recorded By: Oma Douglass; 12/14/2020 2:16:15 PM Medrol (Nestor) TABS Adverse Reaction; Anaphylaxis;; Recorded By: Oma Douglass; 12/14/2020 2:16:15 PM hydrALAZINE Allergy; Diarrhea; Recorded By: Oma Douglass; 12/14/2020 2:16:15 PM lisinopril Allergy; Rash; Recorded By: Oma Douglass; 12/14/2020 2:16:15 PM Norvasc Allergy; Itching; Recorded By: Oma Douglass; 12/14/2020 2:16:15 PM Statins Allergy; Myalgia; Recorded By: Oma Douglass; 12/14/2020 2:16:15 PM TATI Inhibitors Recorded By: Oma Douglass; 12/14/2020 2:16:15 PM sulfa Recorded By: Oma Douglass; 12/14/2020 2:16:15 PM Social History Problems Daily caffeine consumption Coffee 2 cups daily Former smoker (V15.82) (Z87.891) quit 1965 No alcohol use No illicit drug use Review of Systems Constitutional: not feeling tired. Cardiovascular: no intermittent leg claudication and as noted in HPI. Respiratory: no cough and no shortness of breath. Gastrointestinal: no change in bowel habits and no blood in stools. Integumentary: no skin rashes. Neurological: dizziness, but no seizures and no frequent falls. All other systems have been reviewed and are negative for complaint. Vitals Vital Signs Printed in Appendix #1 below. Physical Exam Constitutional: alert and in no acute distress. Neck: neck is supple, symmetric, trachea midline, no masses and no thyromegaly . Pulmonary: no increased work of breathing or signs of respiratory distress and lungs clear to auscultation. Cardiovascular: carotid pulses 2+ bilaterally with no bruit , JVP was normal, no thrills , regular rhythm, normal S1 and S2, no murmurs , pedal pulses 2+ bilaterally and no edema . Abdomen: abdomen non-tender, no masses and no hepatomegaly . Skin: skin warm and dry, normal skin turgor . Psychiatric judgment and insight is normal and oriented to person, place and time . Signatures Electronically signed by : Michael Strauss DO; Jan 15 2022 12:55PM EST (Author) Appendix #1 Vital Signs Patient: JANELLE BURT; : 1940; Recorded: [id number] 11:16AMRecorded: [id number] 10:55AMRecorded: [id number] 10:48AM [id number], LUE, [id number], RUE, Sitting [id number], LUE, [id number], RUE, Sitting Heart Rate60, R Radial Height5 ft 4 in Gieisf322 lb BMI Aaguqrbidq78.34 (more content not included)... Normal Rank By Search Tobacco Screening.on Adult depression screening assessment No [facility] alexey 250 DO Work Phone: Fall risk assessment a) No falls within the last year -[facility] alexey 250 DO Work Phone: Tobacco use status [facility] b) No [facility] alexey 250 DO Work Phone: PTH INTACTon 12-05-2021 PTH, Intact 14 pg/mL Critically low 15-65 [facility] Comment on above: Performed By: #### P THINT #### [facility] [address] [address] [address] Dario Gil VIT D 25-OH LABCORPon 2021 Vitamin D, 25-Hydroxy 22.8 ng/mL Critically low 30.0-100.0 [facility] Comment on above: Result Comment: Eliza min D deficiency has been defined by the [place] and an Endocrine Society practice guideline as a level of serum 25-OH vitamin D less than 20 ng/mL (1,2). The Endocrine Society went on to further define vitamin D insufficiency as a level between 21 and 29 ng/mL (2). 1. IOM ([place]). 2010. Dietary reference intakes for calcium and D. [place]: The National Academies Press. 2. Mark MF, Dustin [place], Coni WARD, et al. Evaluation, treatment, and prevention of vitamin D deficiency: an Endocrine Society clinical practice guideline. JCEM. 2010; 96(7):1911-30. Performed By: #### V ITADLC #### [facility] [address] [place] [address] Dr. Dario Gil HEMOGRAM AND PLATELon 2021 Hematocrit (Bld) [Volume fraction] 44.0 % Normal 36.0-48.0 [facility] Comment on above: Performed By: #### H H #### [facility] [address] [address] [address] Dario Gil Hemoglobin (Bld) [Mass/Vol] 14.9 g/dL Normal 12.0-16.0 [facility] Comment on above: Performed By: #### H H #### [facility] [address] [address] [address] Dario Gil MCH (RBC) [Entitic mass] 29.7 pg Normal 26.7-34.0 [facility] Comment on above: Performed By: #### H H #### [facility] [address] [place] [address] Dr. Dario Gil MCHC (RBC) [Mass/Vol] 33.9 g/dL Normal 29.9-35.2 [facility] Comment on above: Performed By: #### H H #### [facility] [address] [address] [address] Dario Gil MCV (RBC) [Entitic vol] 87.8 fL Normal 81.0-99.0 [facility] Comment on above: Performed By: #### H H #### [facility] [address] [place] [address] Dr. Dario Gil PLT 245 103/ul Normal 150-450 [facility] Comment on above: Performed By: #### H H #### [facility] [address] [place] [address] Dr. Dario Gil RBC 5.01 106/ul Normal 4.20-5.40 [facility] Comment on above: Performed By: #### H H #### [facility] [address] [address] [address] Dario Gil WBC 5.8 103/ul Normal 4.0-11.0 [facility] Comment on above: Performed By: #### H H #### [facility] [address] [address] [address] Dario Gil MAGNESIUMon 12-04-2021 Magnesium [Mass/Vol] 1.9 mg/dL Normal 1.8-2.4 [facility] Comment on above: Performed By: #### H H #### [facility] [address] [place] [address] Dr. Dario Gil RENAL FUNCTION PANELon 12-04 Albumin [Mass/Vol] 3.9 g/dL Normal 3.4-5.0 [facility] Comment on above: Performed By: #### H H #### [facility] [address] [address] [address] Dario Gil Calcium [Mass/Vol] 9.4 mg/dL Normal 8.5-10.1 [facility] Comment on above: Performed By: #### H H #### [facility] [address] [address] [address] Dario Gil Chloride [Moles/Vol] 96 mmol/L Critically low 98-107 [facility] Comment on above: Performed By: #### H H #### [facility] [address] [address] [address] Dario Gil CO2 [Moles/Vol] 30.8 mmol/L Normal 21.0-32.0 [facility] Comment on above: Performed By: #### H H #### [facility] [address] [address] [address] Dario Gil Creatinine [Mass/Vol] 1.25 mg/dL Critically high 0.55-1.02 [facility] Comment on above: Performed By: #### H H #### [facility] [address] [address] [address] Dario Gil EGFR-AF SERBIAN 50 mL/min/1.73m2 Critically low >=60 [facility] Comment on above: Performed By: #### H H #### [facility] [address] [address] [address] Dario Gil EGFR-NON AF SERBIAN 41 mL/min/1.73m2 Critically low >=60 [facility] Comment on above: Performed By: #### H H #### [facility] [address] [address] [address] Dario Gil Glucose [Mass/Vol] 93 mg/dL Normal 74-106 [facility] Comment on above: Performed By: #### H H #### [facility] [address] [address] [address] Dario Gil Phosphate [Mass/Vol] 3.4 mg/dL Normal 2.6-4.7 [facility] Comment on above: Performed By: #### H H #### [facility] [address] [address] [address] Dario Gil Potassium [Moles/Vol] 4.2 mmol/L Normal 3.5-5.1 [facility] Comment on above: Performed By: #### H H #### [facility] [address] [place] [address] Dr. Dario Gil Sodium [Moles/Vol] 133 mmol/L Critically low 136-145 [facility] Comment on above: Performed By: #### H H #### [facility] [address] [place] [address] Dr. Dario Gil Urea nitrogen [Mass/Vol] 20.0 mg/dL Critically high 7.0-18.0 [facility] Comment on above: Performed By: #### H H #### [facility] [address] [place] [address] Dr. Dario Gil UA RANDOM W/MICROSCOPICon BACTERIA NONE SEEN Normal NONE SEEN [facility] Comment on above: Performed By: #### U AMIC #### [facility] [address] [place] [address] Dr. Dario Gil Bilirubin Ql (U) Negative Normal NEGATIVE [facility] Comment on above: Performed By: #### U AMIC #### [facility] [address] [place] [address] Dr. Dario Gil CAST NONE SEEN Normal NONE SEEN [facility] Comment on above: Performed By: #### U AMIC #### [facility] [address] [place] [address] Dr. Dario Gil Clarity (U) CLEAR Normal CLEAR [facility] Comment on above: Performed By: #### U AMIC #### [facility] [address] [place] [address] Dr. Dario Gil Color (U) LT. YELLOW Normal YELLOW [facility] Comment on above: Performed By: #### U AMIC #### [facility] [address] [place] [address] Dr. Dario Gil Crystals LM Nom (Urine sed) NONE SEEN Normal NONE SEEN [facility] Comment on above: Performed By: #### U AMIC #### [facility] [address] [place] [address] Dr. Dario Gil Epithelial cells LM Ql (Urine sed) FEW Abnormal NONE SEEN /RARE [facility] Comment on above: Performed By: #### U AMIC #### [facility] [address] [place] [address] Dr. Dario Gil Glucose Ql (U) Negative Normal NEGATIVE [facility] Comment on above: Performed By: #### U AMIC #### [facility] [address] [address] [address] Dario Gil Hemoglobin Ql (U) Negative Normal NEGATIVE [facility] Comment on above: Performed By: #### U AMIC #### [facility] [address] [place] [address] Dr. Dario Gil Ketones Ql (U) Negative Normal NEGATIVE [facility] Comment on above: Performed By: #### U AMIC #### [facility] [address] [place] [address] Dr. Dario Gil LEUKOCYTES SMALL Abnormal NEGATIVE [facility] Comment on above: Performed By: #### U AMIC #### [facility] [address] [address] [address] Dario Gil MUCOUS NONE SEEN Normal NONE SEEN [facility] Comment on above: Performed By: #### U AMIC #### [facility] [address] [place] [address] Dr. Dario Gil Nitrite Ql (U) Negative Normal NEGATIVE [facility] Comment on above: Performed By: #### U AMIC #### [facility] [address] [place] [address] Dr. Dario Gil pH (U) 7.0 [pH] Normal 5-9 [facility] Comment on above: Performed By: #### U AMIC #### [facility] [address] [place] [address] Dr. Dario Gil RBC 0-2 Normal 0-2 [facility] Comment on above: Performed By: #### U AMIC #### [facility] [address] [place] [address] Dr. Dario Gil SPEC GRAVITY 1.010 Normal 1.005-<=1. 025 [facility] Comment on above: Performed By: #### U AMIC #### [facility] [address] [place] [address] Dr. Dario Gil UA PROTEIN Negative Normal NEGATIVE/ TRACE [facility] Comment on above: Performed By: #### U AMIC #### [facility] [address] [place] [address] Dr. Dario Gil Urobilinogen Qn (U) 0.2 {Carlos'U}/dL Normal 0.2 - 1. 0 [facility] Comment on above: Performed By: #### U AMIC #### [facility] [address] [place] [address] Dr. Dario Gil WBC 0-2 Abnormal NONE SEEN [facility] Comment on above: Performed By: #### U AMIC #### [facility] [address] [place] [address] Dr. Dario Gil URIC ACID SERUMon 12-04-2021 Urate [Mass/Vol] 5.3 mg/dL Normal 2.6-6.0 [facility] Comment on above: Performed By: #### H H #### [facility] [address] [place] [address] Dr. Dario Gil URINE T PROTEIN CREAT RATIOo n 12-04-2021 Protein (U) [Mass/Vol] 6.0 mg/dL Normal <=12.0 [facility] Comment on above: Performed By: #### H H #### [facility] [address] [place] [address] Dr. Dario Gil UR PROT CREAT RAT 0.06 Normal [facility] Comment on above: Performed By: #### H H #### [facility] [address] [place] [address] Dr. Dario Gil URINE CREAT 96.21 mg/dL Normal 20.00-300. 00 [facility] Comment on above: Performed By: #### H H #### [facility] [address] [place] [address] Dr. Dario Gil Tobacco Screening.on 021 Fall risk assessment a) No falls within the last year -[facility] 250 DO Work Phone: Tobacco use status [facility] b) No -[facility] 250 DO Work Phone: Vital Signs Date Time Vital Sign Value Performing Clinician Facility 05-18-2023 11:27-0500 Body height 162.6 cm Michael Strauss DO Work Phone: [facility] 05-18-2023 11:27-0500 Body mass index (BMI) [Ratio] 22.49 kg/m2 Michael Strauss DO Work Phone: [facility] 05-18-2023 11:27-0500 Body weight 59.42 kg Michael Strauss DO Work Phone: [facility] 05-18-2023 11:27-0500 Diastolic blood pressure 80 mm[Hg] Michael Strauss DO Work Phone: [facility] 05-18-2023 11:27-0500 Heart rate 64 /min Michael Strauss DO Work Phone: [facility] 05-18-2023 11:27-0500 Systolic blood pressure 140 mm[Hg] Michael Strauss DO Work Phone: [facility] 03-10-2023 10:36-0500 Body height 162.6 cm Adrien Avalos [employer] Work Phone: [facility] 03-10-2023 10:36-0500 Body mass index (BMI) [Ratio] 22.31 kg/m2 Adrien Avalos [employer] Work Phone: [facility] 03-10-2023 10:36-0500 Body weight 58.97 kg Adrien Avalos [employer] Work Phone: [facility] 03-10-2023 10:36-0500 Diastolic blood pressure 66 mm[Hg] Adrien Avalos [employer] Work Phone: [facility] 03-10-2023 10:36-0500 Heart rate 64 /min Adrien Avalos [employer] Work Phone: [facility] 03-10-2023 10:36-0500 Systolic blood pressure 140 mm[Hg] Adrien Avalos [employer] Work Phone: [facility] 02-02-2023 11:00-0500 Body height 162.56 cm Antonino Gustafson Other [employer] Other 02-02-2023 11:00-0500 Body mass index (BMI) [Ratio] 22.14 kg/m2 Antonino Gustafson Other [employer] Other 02-02-2023 11:00-0500 Body weight 58.51 kg Antonino Gustafson Other [employer] Other 02-02-2023 11:00-0500 Diastolic blood pressure 63 mm[Hg] Antonino Gustafson Other [employer] Other 02-02-2023 11:00-0500 Systolic blood pressure 127 mm[Hg] Antonino Gustafson Other [employer] Other 01-29-2023 14:05-0400 Body temperature 97.2 [degF] MD Antonino Gustafson Work Phone: [facility] 01-29-2023 14:05-0400 Diastolic blood pressure 71 mm[Hg] MD Antonino Gustafson Work Phone: [facility] 01-29-2023 14:05-0400 Heart rate 75 /min MD Antonino Gustafson Work Phone: [facility] 01-29-2023 14:05-0400 Respiratory rate 16 /min MD Antonino Gustafson Work Phone: [facility] 01-29-2023 14:05-0400 SaO2% (BldA) [Mass fraction] 95 % MD Antonino Gustafson Work Phone: [facility] 01-29-2023 14:05-0400 Systolic blood pressure 156 mm[Hg] MD Antonino Gustafson Work Phone: [facility] 01-29-2023 05:56-0400 Body weight 57.1 kg MD Antonino Gustafson Work Phone: [facility] 01-28-2023 16:00-0400 Body height 162.56 cm MD Antonino Gustafson Work Phone: [facility] 01-27-2023 10:54-0400 Body temperature 97.8 [degF] MD Antonino Gustafson Work Phone: [facility] 01-27-2023 10:54-0400 Diastolic blood pressure 74 mm[Hg] MD Antonino Gustafson Work Phone: [facility] 01-27-2023 10:54-0400 Heart rate 64 /min MD Antonino Gustafson Work Phone: [facility] 01-27-2023 10:54-0400 Respiratory rate 20 /min MD Antonino Gustafson Work Phone: [facility] 01-27-2023 10:54-0400 SaO2% (BldA) [Mass fraction] 100 % MD Antonino Gustafson Work Phone: [facility] 01-27-2023 10:54-0400 Systolic blood pressure 181 mm[Hg] MD Antonino Gustafson Work Phone: [facility] 01-27-2023 07:53-0400 Body height 162.56 cm MD Antonino Gustafson Work Phone: [facility] 01-27-2023 07:53-0400 Body weight 58.96 kg MD Antonino Gustafson Work Phone: [facility] 01-04-2023 13:00-0400 Body height 162.56 cm Liliya Cox Other [employer] Other 01-04-2023 13:00-0400 Body mass index (BMI) [Ratio] 22.59 kg/m2 Liliya Bhavna Other [employer] Other 01-04-2023 13:00-0400 Body temperature 96.4 [degF] Liliya Bhavna Other [employer] Other 01-04-2023 13:00-0400 Body weight 59.69 kg Liliya Bhavna Other [employer] Other 01-04-2023 13:00-0400 Diastolic blood pressure 74 mm[Hg] Liliya Bhavna Other [employer] Other 01-04-2023 13:00-0400 Respiratory rate 18 /min Liliya Bhavna Other [employer] Other 01-04-2023 13:00-0400 SaO2% (BldA) [Mass fraction] 98 % Liliya Bhavna Other [employer] Other 01-04-2023 13:00-0400 Systolic blood pressure 153 mm[Hg] Liliya Bhavna Other [employer] Other 11-03-2022 15:30-0400 Body height 162.56 cm Antonino Gustafson Other [employer] Other 11-03-2022 15:30-0400 Body mass index (BMI) [Ratio] 22.83 kg/m2 Antonino Gustafson Other [employer] Other 11-03-2022 15:30-0400 Body weight 60.33 kg Antonino Gustafson Other [employer] Other 11-03-2022 15:30-0400 Diastolic blood pressure 55 mm[Hg] Antonino Gustafson Other [employer] Other 11-03-2022 15:30-0400 Systolic blood pressure 146 mm[Hg] Antonino Gustafson Other [employer] Other 06-11-2022 11:40-0400 Body height 162.56 cm Liliya Bhavna Other [employer] Other 06-11-2022 11:40-0400 Body mass index (BMI) [Ratio] 24.92 kg/m2 Liliya Bhavna Other [employer] Other 06-11-2022 11:40-0400 Body temperature 96.9 [degF] Liliya Bhavna Other [employer] Other 06-11-2022 11:40-0400 Body weight 65.86 kg Liliya Bhavna Other [employer] Other 06-11-2022 11:40-0400 Diastolic blood pressure 88 mm[Hg] Liliya Bhavna Other [employer] Other 06-11-2022 11:40-0400 Respiratory rate 18 /min Liliya Bhavna Other [employer] Other 06-11-2022 11:40-0400 SaO2% (BldA) [Mass fraction] 98 % Liliya Bhavna Other [employer] Other 06-11-2022 11:40-0400 Systolic blood pressure 138 mm[Hg] Liliya Bhavna Other [employer] Other 03-18-2022 11:35-0500 Diastolic blood pressure 62 mm[Hg] Antonino Gustafson Work Phone: [facility] 250 DO Work Phone: 03-18-2022 11:35-0500 Systolic blood pressure 130 mm[Hg] Antonino Gustafson Work Phone: [facility] DO Work Phone: 03-18-2022 11:23-0500 Body height 162.56 cm Antonino Gustafson Work Phone: [facility] DO Work Phone: 03-18-2022 11:23-0500 Body mass index (BMI) [Ratio] 24.2 kg/m2 Antonino Gustafson Work Phone: [facility] DO Work Phone: 03-18-2022 11:23-0500 Body surface area Derived from formula 1.69 m2 Antonino Gustafson Work Phone: [facility] DO Work Phone: 03-18-2022 11:23-0500 Body weight 63.96 kg Antonino Gustafson Work Phone: [facility] DO Work Phone: 03-18-2022 11:23-0500 Diastolic blood pressure 60 mm[Hg] Antonino Gustafson Work Phone: [facility] DO Work Phone: 03-18-2022 11:23-0500 Heart rate 60 /min Antonino Gustafson Work Phone: [facility] DO Work Phone: 03-18-2022 11:23-0500 Systolic blood pressure 142 mm[Hg] Antonino Gustafson Work Phone: [facility] DO Work Phone: 01-15-2022 11:16-0400 Diastolic blood pressure 80 mm[Hg] Antonino Gustafson Work Phone: [facility] DO Work Phone: 01-15-2022 11:16-0400 Systolic blood pressure 192 mm[Hg] Antonino Gustafson Work Phone: [facility] DO Work Phone: 01-15-2022 10:55-0400 Diastolic blood pressure 80 mm[Hg] Antonino Gustafson Work Phone: [facility] DO Work Phone: 01-15-2022 10:55-0400 Systolic blood pressure 218 mm[Hg] Antonino Gustafson Work Phone: [facility] DO Work Phone: 01-15-2022 10:48-0400 Body height 162.56 cm Antonino Gustafson Work Phone: [facility] DO Work Phone: 01-15-2022 10:48-0400 Body mass index (BMI) [Ratio] 23.34 kg/m2 Antonino Gustafson Work Phone: [facility] DO Work Phone: 01-15-2022 10:48-0400 Body surface area Derived from formula 1.66 m2 Antonino Gustafson Work Phone: [facility] DO Work Phone: 01-15-2022 10:48-0400 Body weight 61.69 kg Antonino Gustafson Work Phone: [facility] DO Work Phone: 01-15-2022 10:48-0400 Diastolic blood pressure 74 mm[Hg] Antonino Gustafson [facility] Phone: [facility] [employer] 250 DO Work Phone: 01-15-2022 10:48-0400 Heart rate 60 /min Antonino Giorgi Gustafson Work Phone: [facility] [employer] 250 DO Work Phone: 01-15-2022 10:48-0400 Systolic blood pressure 220 mm[Hg] Antonino E Sj Work Phone: [facility] [employer] 250 DO Work Phone: 12-08-2021 11:40-0400 Body height 162.56 cm Liliya Bhavna Other [employer] Other 12-08-2021 11:40-0400 Body mass index (BMI) [Ratio] 23.34 kg/m2 Liliya Bhavna Other [employer] Other 12-08-2021 11:40-0400 Body temperature 97.2 [degF] Liliya Bhavna Other [employer] Other 12-08-2021 11:40-0400 Body weight 61.69 kg Liliya Bhavna Other [employer] Other 12-08-2021 11:40-0400 Diastolic blood pressure 72 mm[Hg] Liliya Bhavna Other [employer] Other 12-08-2021 11:40-0400 Respiratory rate 18 /min Liliya Bhavna Other [employer] Other 12-08-2021 11:40-0400 SaO2% (BldA) [Mass fraction] 99 % Liliya Bhavna Other [employer] Other 12-08-2021 11:40-0400 Systolic blood pressure 130 mm[Hg] Liliya Bhavna Other [employer] Other 10-31-2021 03:30-0400 Diastolic blood pressure 85 mm[Hg] MD Antonino Gustafson Work Phone: [facility] 10-31-2021 03:30-0400 Heart rate 55 /min MD Antonino Gustafson Work Phone: [facility] 10-31-2021 03:30-0400 Respiratory rate 18 /min MD Antonino Gustafson Work Phone: [facility] 10-31-2021 03:30-0400 SaO2% (BldA) [Mass fraction] 96 % MD Antonino Gustafson Work Phone: [facility] 10-31-2021 03:30-0400 Systolic blood pressure 193 mm[Hg] MD Antonino Gustafson Work Phone: [facility] 10-31-2021 00:19-0400 Body height 162.56 cm MD Antonino Gustafson Work Phone: [facility] 10-31-2021 00:19-0400 Body temperature 98 [degF] MD Antonino Gustafson Work Phone: [facility] 10-31-2021 00:19-0400 Body weight 58.96 kg MD Antonino Gustafson Work Phone: [facility] 05-29-2021 11:00-0500 Body height Liliya Bhavna Other [employer] Other 05-29-2021 11:00-0500 Body mass index (BMI) [Ratio] 24.03 kg/m2 Liliya Bhavna Other [employer] Other 03-03-2022 11:00-0500 Body weight 63.5 kg Liliya Bhavna Other [employer] Other 05-29-2021 11:00-0500 Diastolic blood pressure 76 mm[Hg] Liliya Bhavna Other [employer] Other 05-29-2021 11:00-0500 Respiratory rate 18 /min Liliya Bhavna Other [employer] Other 05-29-2021 11:00-0500 SaO2% (BldA) [Mass fraction] 99 % Liliya Bhavna Other [employer] Other 05-29-2021 11:00-0500 Systolic blood pressure 134 mm[Hg] Liliya Bhavna Other [employer] Other 01-09-2021 11:30-0400 Diastolic blood pressure 70 mm[Hg] Antonino Gustafson Work Phone: [employer] 250 DO Work Phone: 01-09-2021 11:30-0400 Systolic blood pressure 144 mm[Hg] Antonino Gustafson Work Phone: [employer] [facility] DO Work Phone: 01-09-2021 10:54-0400 Body height 162.56 cm Antonino Gustafson Work Phone: [employer] 250 DO Work Phone: 01-09-2021 10:54-0400 Body mass index (BMI) [Ratio] 24.2 kg/m2 Antonino Gustafson Work Phone: [employer] 250 DO Work Phone: 01-09-2021 10:54-0400 Body surface area Derived from formula 1.69 m2 Antonino Gustafson Work Phone: [facility] DO Work Phone: 01-09-2021 10:54-0400 Body weight 63.96 kg Antonino Gustafson Work Phone: [facility] DO Work Phone: 01-09-2021 10:54-0400 Diastolic blood pressure 74 mm[Hg] Antonino Gustafson Work Phone: [facility] DO Work Phone: 01-09-2021 10:54-0400 Heart rate 60 /min Antonino Gustafson Work Phone: [facility] DO Work Phone: 01-09-2021 10:54-0400 Systolic blood pressure 156 mm[Hg] Antonino Gustafson Work Phone: [facility] DO Work Phone: Encounters Encounter Date Encounter Type Care Provider Facility Start: 05-18-2023 End: 05-18-2023 ambulatory [facility] Start: 05-18-2023 End: 05-18-2023 Office outpatient visit 25 minutes [facility] DO Work Phone: [facility] Comment on above: Paroxysmal atrial fi brillation (CMS/HCC); Accelerated hypertension; Mixed hyperlipidemia; Stage 3b chronic kidney disease (CMS/HCC) Start: 03-10-2023 End: 03-10-2023 ambulatory ADRIEN [facility] Start: 03-10-2023 End: 03-10-2023 Office outpatient visit 15 minutes [place] [employer] Work Phone: [facility] Comment on above: Paroxysmal atrial fi brillation (CMS/HCC) (Primary Dx); Chest pain, unspecified type; Accelerated hypertension; Stage 3a chronic kidney disease (CMS/HCC); BMI 22.0-22.9, adult Start: 02-24-2023 End: 02-24-2023 ambulatory Antonino Gustafson Other [employer] Other Start: 02-24-2023 Telephone encounter Antonino Gustafson [facility] Start: 02-11-2023 End: 02-11-2023 ambulatory ANTONINO GUSTAFSON [facility] Ambulatory Start: 02-02-2023 End: 02-02-2023 ambulatory Antonino Gustafson Other [employer] Other Start: 02-02-2023 Transitional care michaela winter sr 14 day discharge Antonino Gustafson [facility] Start: 01-28-2023 End: 01-28-2023 ambulatory Antonino Gustafson Other [employer] Other Start: 01-28-2023 Telephone encounter Antonino Gustafson [facility] Start: 01-28-2023 End: 01-29-2023 Evaluation and management of inpatient Lian Mischler Facility:[facility] Start: 01-28-2023 End: 01-29-2023 Evaluation and management of inpatient MD Antonino Gustafson Work Phone: [facility] [place] [facility] Work Phone: Start: 01-27-2023 Evaluation and management of inpatient MD Antonino Gustafson Work Phone: [facility] [place] Work Phone: Start: 01-27-2023 observation encounter MD Preethi Gustafson Work Phone: [facility] Work Phone: Start: 01-04-2023 End: 01-04-2023 ambulatory Liliya Bhavna Other [facility] Other Start: 01-04-2023 Office outpatient vi sit 25 minutes Liliya Bhavna [facility] Start: 11-03-2022 End: 11-03-2022 ambulatory Antonino Gustafson Other [employer] Other Start: 11-03-2022 Office outpatient vi sit 15 minutes Antonino Gustafson [facility] Start: 10-09-2022 Rx Renewal Antonino Gustafson Work Phone: [facility] DO Work Phone: Start: 06-11-2022 End: 06-11-2022 ambulatory Liliya Bhavna Other [employer] Other Start: 06-11-2022 Office outpatient vi sit 15 minutes Liliya Bhavna [facility] Start: 06-03-2022 End: 06-04-[address] ANTONINO GUSTAFSON Facility:[facility] Start: 03-18-2022 Office outpatient vi sit 10 minutes Antonino Gustafson Work Phone: [facility] 250 DO Work Phone: Start: 03-18-[address] Antonino Gustafson Facility: Start: 02-09-2022 Adult health examination Preethi Gustafson Other [facility] [employer] Other Start: 02-05-2022 End: 02-06-[address] MICHAEL STRAUSS Facility:[facility] Start: 01-15-[address] Michael Strauss Facility: Start: 01-15-2022 Office outpatient vi sit 25 minutes Antonino Gustafson Work Phone: [facility] DO Work Phone: Start: 12-17-2021 Rx Renewal Antonino Gustafson Work Phone: [facility] DO Work Phone: Start: 12-08-2021 End: 12-08-2021 ambulatory Liliya Bhavna Other [employer] Other Start: 12-08-2021 Office outpatient vi sit 25 minutes Liliya Bhavna [facility] José Antonio Start: 12-04-2021 End: 12-05-2021 ambulatory LILIYA BHAVNA Facility: Start: 10-31-2021 End: 10-31-2021 Emergency department patient visit MD Antonino Gustafson Work Phone: [facility] Start: 09-16-2021 Rx Renewal Antonino Gustafson Work Phone: [facility] [address] DO Work Phone: Start: 05-29-2021 End: 05-29-2021 ambulatory Liliya Bhavna Other [facility] [employer] Other Start: 05-29-2021 Office outpatient vi sit 15 minutes Liliya Bhavna [facility] José Antonio Start: 01-22-2021 Rx Renewal Antonino Gustafson Work Phone: [facility] [address] [place] Work Phone: Start: 01-09-2021 Office outpatient vi sit 15 minutes Antonino Gustafson Work Phone: [facility] [address] DO Work Phone: Start: 01-09-2021 Patient encounter procedure Antonino Gustafson Work Phone: [facility] [address] DO Work Phone: Procedures Date Procedure Procedure Detail Performing Clinician Start: 05-18-2023 FOLLOW UP IN CARDIOLOGY ANTONINO GUSTAFSON Start: 03-10-2023 FOLLOW UP IN CARDIOLOGY ANTONINO GUSTAFSON Start: 02-11-2023 FOLLOW UP IN CARDIOLOGY ANTONINO GUSTAFSON Start: 01-28-2023 CL [facility] Angio MD Kory Gustafson Work Phone: Start: 01-28-2023 MD Antonino Gustafson Work Phone: Start: 01-27-2023 Plain chest X-ray MD Michaela Gustafson Work Phone: Start: 10-31-2021 X-ray of cervical spine MD Antonino Gustafson Work Phone: Appendectomy Antonino Gustafson Work Phone: Cataract surgery Antonino pro Work Phone: Supracervical hysterectomy Antonino Gustafson Work Phone: Tonsillectomy Antonino Gustafson Work Phone: NEGATED: Highlighted row has not occurred! Colonoscopy Antonino Gustafson Work Phone: Plan of Treatment Date Care Activity Detail Author Start: 11-02-2024 DTaP/Tdap/Td Vaccine s (2 - Tdap) DTaP/Tdap/Td Vaccines (2 - Tdap) [facility] Start: 01-18-2024 End: 01-18-2024 Patient encounter procedure 01/18/2024 10:40 AM EDT Office Visit [facility] [address] [place] [address] Michael Strauss, DO [address] [place] [address] [facility] Start: 11-17-2023 End: 11-17-2023 Patient encounter procedure 11/17/2023 10:00 AM EDT Office Visit [facility] [address] [place] [address] Adrien Avalos, LINOLEUM TILE FLOOR LAYER-CRUMB PACKER [address] [place] [address] [facility] Start: 05-18-2023 End: 05-18-2023 Patient encounter procedure 05/18/2023 11:00 AM EST Office Visit [facility] [address] [place] [address] Michael Strauss, DO [address] [place] [address] [facility] Start: 04-06-2023 End: 04-06-2023 Patient encounter procedure 04/06/2023 10:00 AM EST Procedure Visit [facility] [address] [place] [id number] [facility] Start: 03-10-2023 End: 03-10-2024 Holter monitor study Holter Or Event [employer] Principal Cardiac Services Routine Paroxysmal atrial fibrillation (CMS/HCC) Expected: 03/10/2023 (Approximate), Expires: 03/10/2024 [facility] Service Area Work Phone: Comment on above: Expected: 03/10/2023 (Approximate), Expires: 03/10/2024 Start: 01-29-2023 [facility] Start: 01-27-20[address] admission [facility] Start: 01-27-2023 Referral to senior network architect [facility] Start: 01-14-2023 FUV, Provider: Michael Strauss, Status: Pen, Time: 10:00 AM FUV, Provider: Michael Strauss, Status: Pen, Time: 10:00 AM [place] [address] DO Work Phone: Start: 11-27-2022 COVID-19 Vaccine ( season) COVID-19 Vaccine ( season) [facility] Start: 11-27-2022 Influenza vaccination Influenza Vacc ine (#1) [facility] Start: 03-18-2022 FUV, Provider: Adrien Cha, Status: Pen, Time: 11:30 AM FUV, Provider: Adrien Cha, Status: Pen, Time: 11:30 AM [facility] 250 DO Work Phone: Start: 01-15-2022 FUV, Provider: Michael Strauss, Status: Pen, Time: 10:00 AM FUV, Provider: Michael Strauss, Status: Pen, Time: 10:00 AM [facility] 250 DO Work Phone: Start: 05-08-2021 COVID-19 Vaccine (4 - Moderna series) COVID-19 Vaccine (4 - Moderna series) [facility] Start: 11-18-1989 Zoster Vaccines (1 o f 2) Zoster Vaccines (1 of 2) [facility] Start: 11-18-1957 Diabetes mellitus screening Diabetes Screening [facility] Start: 11-18-1945 Pneumococcal Vaccine : 65+ Years (1 - PCV) Pneumococcal Vaccine: 65+ Years (1 - PCV) [facility] Start: 1940 Lipid panel Lipid Panel [facility] Start: 1940 Medicare Annual Wellness Visit Medicare Annual Wellness Visit (AWV) [facility] Start: 1940 Screening for osteoporosis Bone Density Scan [facility] Start: 1940 Thyroid stimulating hormone measurement TSH Level [facility] Patient Education [facility] Work Phone: Patient referral [facility] Work Phone: Immunizations Immunization Date Immunization Notes Care Provider Traci alvarez 03-13-2021 Moderna COVID-19 Vac cine 100 MCG/0.5ML Intramuscular Suspension Antonino Gustafson Work Phone: [facility] 250 DO Work Phone: 06-19-2020 Moderna COVID-19 Vac cine 100 MCG/0.5ML Intramuscular Suspension Antonino E Gustafson Work Phone: [facility] 250 DO Work Phone: 05-23-2020 Moderna COVID-19 Vac cine 100 MCG/0.5ML Intramuscular Suspension Antonino E Sj Work Phone: [facility] 250 DO Work Phone: 11-02-2014 diphtheria, tetanus toxoids and acellular pertussis vaccine, 5 pertussis antigens Antonino Gustafson Work Phone: [facility] 250 DO Work Phone: Payers Date Payer Category Payer Self-pay [id number] 2015 Private Health Insurance HUMANA SUPPLEMENT HUMANA MEDICARE SUPPLEMENT [id number] 2015-Present [id number] [place] [address] [id number] 2004 Medicare MEDICARE MEDICAR E PART A AND B [id number] 2004-Present [address] [place] [address] [id number] 1959 Medicare [id number] 1959 Private Health Insurance [id number] 1939 Unknown [id number] [id number] 1939 Unknown [id number] [id number] 1939 Unknown [id number] [id number] 1939 Unknown [id number] [id number] 1939 Unknown [id number] [id number] 1939 Unknown [id number] [id number] 1939 Unknown [id number] [id number] 1939 Unknown [id number] [id number] 1939 Unknown [id number] Unknown Unknown [id number] [id number] Social History Date Type Detail Facility Start: 03-10-2023 No alcohol use No alcohol use [facility] [address] DO Work Phone: Comment on above: Coffee 2 cups daily; quit 1965; Start: 03-10-2023 Sex Assigned At N [facility] [employer] Other Start: 10-31-2021 Tobacco smoking status [facility] Never smoked tobacco (finding) [facility] Start: 1940 Sex Assigned At Female F [facility] Start: 01-27-2023 End: 03-10-2023 Tobacco smoking status NHIS Ex-smoker (finding) [facility] End: 03-29-1969 History of tobacco use Current smoker [facility] Work Phone: End: 03-29-1969 History of tobacco use Cigarette Smoker [facility] Work Phone: Start: 03-10-2023 Tobacco use and exposure Smokeless tobacco non-user [facility] Work Phone: Start: 03-10-2023 End: 05-18-2023 Alcohol intake Lifetime non-drinker (finding) [facility] Work Phone: Start: 1940 Sex Assigned At Not on file [facility] Work Phone: Start: 02-28-2023 End: 05-18-2023 Exposure to SARS-CoV-2 (event) Not sure [facility] Goals Date Patient Goal Desired Activity /State Functional Status Date Assessment Result Facility 01-29-2023 Functional status Patient at Baseline [facility] Work Phone: 01-27-2023 Functional status Patient at Baseline [facility] Work Phone: Mental Status Date Assessment Result Facility 01-29-2023 Cognitive function Cognitive Sta tus Patient at Baseline [facility] Work Phone: 01-27-2023 Cognitive function Cognitive Sta tus Patient at Baseline [facility] Work Phone: Clinical Notes 05-29-2021 to 05-18-2023 Michael Strauss, - 05/18/2023 11:00 AM ESTPatient InstructionsAssessment & Plan Note - Adrien Avalos APRN-RE - 03/10/2023 1:57 PM Skylar Yong Robbie, AIMEE- RE - 03/10/2023 10:30 AM EST Note Date & Type Note Facility 05-18-2023 History of Presen t illness Narrative Subjective Janelle Burt is a 82 y.o. female Chief Complaint Follow-up 82-year-old female returns for follow-up following hospitalization for accelerated hypertension and brief episode of A-fib. She converted to sinus rhythm. She followed up with nurse practitioner who ordered event monitor but the patient was not feeling well enough to proceed with event monitoring. She still does not feel well and therefore is refusing Holter monitor. Notably the only changes in her medications were increase in her levothyroxine and I believe the addition of spironolactone. She brings her blood pressure log in today, with systolic pressures as low as 97 and as high as 152 mmHg, averaging around 130 mmHg. She simply does not feel well, feels lethargic, and this may be related to her thyroid medication change or her chronic kidney disease or even relatively low blood pressures compared to what she is hemodynamically used to. Recommendations, follow-up with nephrology and primary care in regards to thyroid medication and CKD, will discontinue spironolactone altogether at least for the time being to see if this helps, follow-up in 3 months with Adrien in 6 months with myself Review of Systems Constitutional: Positive for malaise/fatigue. Neurological: Positive for dizziness, light-headedness and weakness. All other systems reviewed and are negative. Vitals: 05/18/23 1127 BP: 140/80 BP Location: Left arm Patient Position: Sitting Pulse: 64 Weight: 59.4 kg (131 lb) Height: 1.626 m (5' 4 ) Objective Physical Exam Constitutional: Appearance: Normal appearance. She is normal weight. HENT: Nose: Nose normal. Neck: Vascular: No carotid bruit. Cardiovascular: Rate and Rhythm: Normal rate. Pulses: Normal pulses. Heart sounds: Normal heart sounds. Pulmonary: Effort: Pulmonary effort is normal. Abdominal: General: Bowel sounds are normal. Palpations: Abdomen is soft. Genitourinary: Rectum: Normal. Musculoskeletal: General: Normal range of motion. Cervical back: Normal range of motion. Right lower leg: No edema. Left lower leg: No edema. Skin: General: Skin is warm and dry. Neurological: General: No focal deficit present. Mental Status: She is alert. Psychiatric: Mood and Affect: Mood normal. Behavior: Behavior normal. Thought Content: Thought content normal. Judgment: Judgment normal. Allergies Clonidine, Methylprednisolone, Gvdqeop-byv-aae reductase inhibitors, Tati inhibitors, Amlodipine, Hydralazine, Lisinopril, and Sulfamethoxazole Current Medications Current Outpatient Medications: aspirin 81 mg EC tablet, Take 1 tablet (81 mg) by mouth once daily., Disp: , Rfl: CALCIUM CARBONATE-VITAMIN D3 ORAL, Take 1 tablet by mouth once daily., Disp: , Rfl: fenofibrate (Tricor) 54 mg tablet, Take 1 tablet (54 mg) by mouth once daily., Disp: , Rfl: levothyroxine (Synthroid, Levoxyl) 100 mcg tablet, Take 1 capsule by mouth once daily in the morning. Take before meals., Disp: , Rfl: losartan (Cozaar) 50 mg tablet, TAKE 1 TABLET BY MOUTH EVERY DAY (Patient taking differently: Take 0.5 tablets (25 mg) by mouth once daily.), Disp: 90 tablet, Rfl: 3 metoprolol tartrate (Lopressor) 50 mg tablet, Take 0.5 tablets by mouth 2 times a day., Disp: 90 tablet, Rfl: 3 nitroglycerin (Nitrostat) 0.4 mg SL tablet, Place 1 tablet (0.4 mg) under the tongue every 5 minutes if needed for chest pain. Go to ER or call 911 after 3rd dose., Disp: , Rfl: Assessment/Plan 1. Paroxysmal atrial fibrillation (CMS/HCC) Follow Up In Cardiology 2. Accelerated hypertension 3. Mixed hyperlipidemia 4. Stage 3b chronic kidney disease (CMS/HCC) Scribe Attestation By signing my name below, Anamaria Magallon LPN, Scribe attest that this documentation has been prepared under the direction and in the presence of Michael Strauss DO. Provider Attestation - Scribe documentation All medical record entries made by the Scribe were at my direction and personally dictated by me. I have reviewed the chart and agree that the record accurately reflects my personal performance of the history, physical exam, discussion and plan. documented in this encounter [facility] Work Phone: 05-18-2023 Instructions Abi Veronica LPN - 05/18/2023 11:00 AM EST Please bring all medicines, vitamins, and herbal supplements with you when you come to the office. Prescriptions will not be filled unless you are compliant with your follow up appointments or have a follow up appointment scheduled as per instruction of your physician. Refills should be requested at the time of your visit. documented in this encounter [facility] Work Phone: 03-10-2023 Evaluation + Plan note Associated Problem(s): Chronic renal disease, stage III (CMS/HCC) Recent creatinine 1.4 Follows annually with nephrology [facility] Work Phone: 03-10-2023 Evaluation + Plan note Associated Problem(s): Cardiac and Vasculature January 2023 hospitalization due to jaw pain and accelerated hypertension January 28, 2023 cardiac cath with insignificant coronary artery disease (No formal report, taken from discharge summary) [facility] Work Phone: 03-10-2023 Evaluation + Plan note Associated Problem(s): Paroxysmal atrial fibrillation (CMS/HCC) Remote history of transient event Recurrent transient atrial fibrillation during January 2023 hospitalization Reports being symptomatic and shaking inside Denies any recurrence [facility] Work Phone: 03-10-2023 Miscellaneous Notes Associated Problem(s): Chronic renal disease, stage III (CMS/HCC) Recent creatinine 1.4 Follows annually with nephrology Associated Problem(s): Cardiac and Vasculature January 2023 hospitalization due to jaw pain and accelerated hypertension January 28, 2023 cardiac cath with insignificant coronary artery disease (No formal report, taken from discharge summary) Associated Problem(s): Paroxysmal atrial fibrillation (CMS/HCC) Remote history of transient event Recurrent transient atrial fibrillation during January 2023 hospitalization Reports being symptomatic and shaking inside Denies any recurrence Associated Problem(s): Accelerated hypertension Optimal in office with recent changes documented in this encounter [facility] Work Phone: 03-10-2023 Evaluation + Plan note Associated Problem(s): Accelerated hypertension Optimal in office with recent changes [facility] Work Phone: 03-10-2023 History of Presen t illness Narrative Chief Complaint Getting used to my blood pressure Reason for Visit Patient presents to the office today for outpatient follow-up for hospital follow-up. Last evaluated in clinic by Dr. Strauss December 2022. Patient was recently hospitalized at [facility]. The patient was seen in Cardiology consult with subsequent cardiovascular management by [facility] Hospitalization records have been reviewed. Reason for Cardiology Consultation: Jaw pain, accelerated hypertension transient atrial fibrillation. Consulting Pneumatic Press Hand: Dr. Strauss Cardiovascular testing: Cardiac catheterization Changes to cardiovascular medical regimen at time of discharge: Metoprolol 25 mg twice daily and Aldactone 25 mg daily Discharge disposition: Home Presents today ambulatory with steady gait. History of Present Illness Patient is an extremely pleasant 82-year-old female who presents to the office reportedly slowly improving . She feels she is finally getting used to a lower blood pressure. Home systolic continue to range 110-1 40. She denies any dizziness or lightheadedness. She denies any type of recurrent atrial fibrillation or palpitations. From an activity standpoint over the summer she was able to garden, goes up and down the stairs. Carries her 20 pound dog down to the basement. Her right radial cath site is healed without adverse sequela. The transient nature of atrial fibrillation, decision was made not to anticoagulate. Discussed the importance of identifying atrial fibrillation so that anticoagulation can be initiated to reduce cardioembolic events. She is in agreement to proceed with 30-day Caden [place] to assess for A-fib burden. Patient reports that overall has no complaint(s) of chest pain, chest pressure/discomfort, dyspnea, irregular heart beat, palpitations, and syncope Review of Systems Cardiovascular: Negative for chest pain, dyspnea on exertion, irregular heartbeat, leg swelling, near-syncope, orthopnea, palpitations, paroxysmal nocturnal dyspnea and syncope. Visit Vitals BP 140/66 (BP Location: Left arm, Patient Position: Sitting) Pulse 64 Ht 1.626 m (5' 4 ) Wt 59 kg (130 lb) BMI 22.31 kg/m Smoking Status Former BSA 1.63 m Physical Exam Vitals and nursing note reviewed. HENT: Head: Normocephalic. Cardiovascular: Rate and Rhythm: Normal rate and regular rhythm. Heart sounds: Normal heart sounds. Pulmonary: Effort: Pulmonary effort is normal. Breath sounds: Normal breath sounds. Abdominal: Palpations: Abdomen is soft. Musculoskeletal: Right lower leg: No edema. Left lower leg: No edema. Skin: General: Skin is warm and dry. Neurological: General: No focal deficit present. Mental Status: She is alert. Psychiatric: Mood and Affect: Mood normal. Behavior: Behavior normal. Allergies Allergen Reactions Clonidine Shortness of breath Methylprednisolone Anaphylaxis Wfkotyl-Egx-Fpv Reductase Inhibitors Myalgia Tati Inhibitors Rash Amlodipine Itching Hydralazine Diarrhea Lisinopril Rash Sulfamethoxazole Rash Current Outpatient Medications Medication Instructions aspirin 81 mg EC tablet 1 tablet, oral, Daily CALCIUM CARBONATE-VITAMIN D3 ORAL 1 tablet, oral, Daily fenofibrate (Tricor) 54 mg tablet 1 tablet, oral, Daily levothyroxine (Synthroid, Levoxyl) 100 mcg tablet 1 capsule, oral, Daily before breakfast losartan (COZAAR) 50 mg, oral, Daily metoprolol tartrate (LOPRESSOR) 25 mg, oral, 2 times daily nitroglycerin (NITROSTAT) 0.4 mg, sublingual, Every 5 min PRN, Go to ER or call 911 after 3rd dose. spironolactone (ALDACTONE) 25 mg, oral, Daily Assessment: Accelerated hypertension Optimal in office with recent changes Paroxysmal atrial fibrillation (CMS/HCC) Remote history of transient event Recurrent transient atrial fibrillation during January 2023 hospitalization Reports being symptomatic and shaking inside Denies any recurrence Cardiac and Vasculature January 2023 hospitalization due to jaw pain and accelerated hypertension January 28, 2023 cardiac cath with insignificant coronary artery disease (No formal report, taken from discharge summary) Chronic renal disease, stage III (CMS/HCC) Recent creatinine 1.4 Follows annually with nephrology Plan: Through informed decision making process incorporating patients unique circumstances, the following treatment plan will be initiated: 1. Prescription drug management of cardiovascular medication for efficacy, adherence to treatment, side effect assessment and polypharmacy. Current treatment clinically warranted and to continue without modifications. 2. Caden of Hearts 30 days (PAF burden) 3. Return for follow-up; in the interim, contact the office if new symptoms arise. Dr. Strauss 8 weeks Adrien Avalos MSN, LINOLEUM TILE FLOOR LAYER-CRUMB PACKER, PMHNP-[facility] Please excuse any errors in grammar or translation related to this dictation. Voice recognition software was utilized to prepare this document. documented in this encounter [facility] Work Phone: 03-10-2023 Instructions RYANNE Neumann - 03/10/2023 10:30 AM EST Please bring all medicines, vitamins, and herbal supplements with you when you come to the office. Prescriptions will not be filled unless you are compliant with your follow up appointments or have a follow up appointment scheduled as per instruction of your physician. Refills should be requested at the time of your visit. PLAN: Through informed decision making process incorporating patients unique circumstances, the following treatment plan will be initiated: 1. Prescription drug management of cardiovascular medication for efficacy, adherence to treatment, side effect assessment and polypharmacy. Current treatment clinically warranted and to continue without modifications. 2. Caden of Hearts 30 days (PAF burden) 3. Return for follow-up; in the interim, contact the office if new symptoms arise. Dr. Srtauss 8 weeks documented in this encounter [facility] Work Phone: 02-24-2023 Evaluation note Encounter Date Diagnosis Assessment Notes Jan, Hypothyroidism, unspecified (ICD-10 - E03.9) [employer] Other 11-07-2023 Evaluation note* Encounter Date Diagnosis Assessment Notes Treatment Notes Treatment Clinical Notes Jan, Hypothyroidism, unspecified (ICD-10 - E03.9) Pt requests a med refill for chronic problem. Jan, CAD in [place] artery (ICD-10 - I25.10) Pt notes improvement in symptoms. Has scheduled appt with Cardiology for followup. [employer] Other 11-03-2023 Hospital Discharge instructions Additional Instructions DISCHARGE INSTRUCTIONS FOR CARDIAC MATURITY CHECKER PHONE NUMBER OF YOUR PHYSICIAN: [phone] PROCEDURE: Heart Cath The following instructions have been prepared to help you care for yourself, or be cared for upon your return home. 1. You were given conscious sedation. Do not operate a vehicle, power tools, make important decisions, or drink alcohol for 24 hours. You might be drowsy or light headed. Return to the Emergency Room if you have trouble breathing, walking or nausea and vomiting. 2. FOR BLEEDING: Apply continuous pressure to the site and call 911. 3. Operative Site Care: Keep the dressing clean and dry. You may change the dressing only if soiled or wet. You may remove the dressing the following morning. You may wash over the puncture site in the shower. If the puncture site is at the wrist no soaking for 3 days. Some bruising or slight swelling may be present. -Signs of infection are redness, warmth, swelling, getting more sore, colored drainage, fever or chills. -Should the arm or leg become cold, numb, blue or white, call the senior network architect immediately. 4. ACTIVITY: You are advised to go directly home from the hospital. Restrict your activities for the rest of the day. Resume light or normal activities tomorrow. Do not engage in any activity that will stress the puncture site. Avoid heavy lifting (over 15 lbs.), straining or bending at the catheter site for 48 hours after discharge. If the puncture site is at the wrist do not manipulate wrist for 24 hours and no lifting more than 3 lbs for 3 days. 5. DIET:You may eat your regular diet when you desire. 6. MEDICATIONS: Resume your daily prescription schedule. Prescriptions may be sent with you if needed. Use as directed. When taking pain medications, you may experience dizziness or drowsiness. Do not drink alcohol or drive when taking pain medications. 7. If you should experience episodes of angina e.g. chest discomfort, heaviness, tightness, pressure, burning, with or without radiation to the neck, jaws, arms, or back- Use 1 Nitrostat under your tongue every 5-10 minutes, and up to 3 tablets. If no relief- Call 911 and go to the nearest Emergency Room. -Notify the office for recurrent angina, chest pain or other concerns. You may NOT drive yourself home! Follow the medication instructions provided on your discharge. If the dosages and instructions on this sheet differ from the dosage and instructions on the bottle, follow the instructions on the bottle. [facility] is not responsible for incorrect prescription information provided by the patient during their visit. Do not stop your medications without consulting your health care provider. Please take the list with you to your next doctor's appointment.[facility] Work Phone: 1(816) 916-757611-02-2023 Progress note Author Elsa Amin [facility] January 28, 2023 3:27pm Note Date/Time January 28, 2023 3 :27pm [facility] [address] [place] [address] Hospitalist Progress Note Signed Patient: Janelle Burt MR#: [id number] : 1940 Acct:[id number] Age/Sex: 82 / F Adm Date: 3 Loc: 3T Room: [address] [place] [address] Type: ADM IN Attending Dr: Elsa Amin MD Copies to: ~ Date of Service: 01/28/2023 Subjective Subjective Narrative: Ms. Burt reports feeling well today. She is asymptomatic. She denies any episodes of palpitations, back pain, or chest pain overnight. She met with cardiology and decided to pursue cardiac catheterization this afternoon given her presentation of non-STEMI. Exam Physical Exam Vital Signs: Temp Pulse Resp BP Pulse Ox O2 Del Method 98.1 F 60 16 167/67 H 96 Room Air 01/28/23 08:10 01/28/23 09:28 01/28/23 09:28 01/28/23 09:28 01/28/23 09:28 01/28/23 09:28 Narrative: General: Not in any acute distress Skin: Intact Extremities: Normal to inspection. No erythema, edema, or lesions. HEENT: Head normocephalic, atraumatic, face symmetrical. Pulm: Breathing normally without excessive effort. LCTAB. Cardio: HRRR no MRG Abdomen: Normal inspection. Soft and nontender to palpation. BSx4. Normoactive. Musculoskeletal: Moves all extremities. Neuro: Patient alert, oriented x3. No focal neurologic deficits. Objective Lab Results 01/27/23 08:12 01/27/23 08:12 Meds Allergies and Active Meds Allergies amlodipine [From Norvasc] Allergy (Verified 01/27/23 08:01) Unknown Reaction clonidine [From Catapres] Allergy (Verified 01/27/23 08:01) Unknown Reaction hydralazine Allergy (Verified 01/27/23 08:01) Unknown Reaction lisinopril Allergy (Verified 01/27/23 08:01) Unknown Reaction methylprednisolone [From Medrol] Allergy (Verified 01/27/23 08:01) Unknown Reaction Wjzacbl-DPV-SpX Reductase Inhibitor [Furdnma-Eeq-Dig Reductase Inhibitor] Allergy (Verified 01/27/23 08:01) Unknown Reaction Sulfa (Sulfonamide Antibiotics) Allergy (Verified 01/27/23 08:01) Unknown Reaction Active Meds: Active Medications Generic Name Dose Route Start Last Admin Trade Name Freq PRN Reason Stop Dose Admin Acetaminophen 650 mg 01/27/23 13:34 Acetaminophen 325 Mg Tablet PO 01/27/24 13:33 Q6HR PRN Pain Scale 1 - 3 or fever Aspirin 81 mg 01/28/23 09:00 01/28/23 09:30 Aspirin 81 Mg Tablet. PO 01/28/24 08:59 81 mg DAILY CLIFTON Administration Heparin Sodium (Porcine) 5,000 unit 01/27/23 21:00 01/28/23 09:45 Heparin 5,000 Unit/Ml Vial SUBCUT 01/27/24 20:59 Not Given Q12HR [place] Labetalol HCl 10 mg 01/27/23 13:16 Labetalol 100 Mg/20 Ml Vial IV-PUSH 01/27/24 13:15 Q4H PRN Hypertension Levothyroxine Sodium 100 mcg 01/28/23 06:30 01/28/23 06:24 Levothyroxine 100 Mcg Tablet PO 01/28/24 06:29 Not Given DAILY.0630 [place] Losartan Potassium 25 mg 01/28/23 09:00 01/28/23 09:30 Losartan 25 Mg Tablet PO 01/28/24 08:59 25 mg DAILY [place] Administration Metoprolol Tartrate 50 mg 01/27/23 21:00 01/28/23 09:30 Metoprolol Tartrate 50 Mg Tablet PO 01/27/24 20:59 50 mg BID CL[place] Administration Sodium Chloride 0 ml 01/27/23 07:59 01/28/23 09:35 Sodium Chloride 0.9 % 10 Ml Syringe IV-PUSH 01/27/24 07:58 10 ml PRN PRN Administration Flush Spironolactone 25 mg 01/28/23 09:00 01/28/23 09:30 Spironolactone 25 Mg Tablet PO 01/28/24 08:59 25 mg DAILY [place] Administration A&P - Hospitalist Assessment/Plan (1) NSTEMI (non-ST elevated myocardial infarction): (2) Elevated troponin: (3) Back pain with radiation: (4) Atrial fibrillation: (5) Hypertension: (6) Hypothyroid: Plan NSTEMI/Back pain with radiation/A-fib Patient presents to ER with one day history of back pain radiating to the neck and arms bilaterally as well as the jaw. She has a history of 1 episode of atrial fibrillation. Initial ECG in ER showed atrial fibrillation. Repeat ECG 1 hour later showed advent of sinus rhythm with first-degree AV block. Chest x-ray showed linear scarring at the left lung base. -[id number]-RVEt equals 5. Recommend anticoagulation. -BNP elevated to 359 on admission. -Troponin elevated to 47.3 on admission. 29.5 today. Trending down. -Cardiology consulted. Recommend assessment for possible ACS with stress perfusion imaging versus invasive cardiac catheterization. Cardiac catheterization taking place today between 1-4 PM. -Continue home medications as appropriate. HTN- chronic -BP peaked to 207/78 on admission. Latest BP 167/67. Trending down. Baseline BP 130-150 systolic. -continue home medications Hypothyroidism-chronic -continue home medications Patient will require more than 2 midnight of hospital stay given her presentation of non-STEMI type I versus type II given her proximal A-fib with RVR. Possibility of underlying coronary disease cannot be ruled and she is scheduled for cardiac cath later today. Documented By: Elsa Amin MD 01/28/23 1043 Signed By: <Electronically signed by Elsa Aimn MD> 01/28/[address] [place] [address] Ctr Work Phone: 1([phone]) 519-319011-02-2023 [facility] Consult note Author Sherron Strauss [facility] January 27, 2023 3:48pm Note Date/Time January 27, 2023 3 :36pm [facility] [address] [place] [address] Cardiology Consult Note Signed Patient: Janelle Burt MR#: [id number] : 1940 Acct:[id number] Age/Sex: 82 / F Adm Date: 3 Loc: Room: [address] [place] [address] Type: ADM INOo Attending Dr: Elsa Amin MD Copies to: MD Elsa Oakes MD W Scott Sheldon, DO~ Cardiology HPI History of Present Illness Consult Date: 01/27/23 Reason for Consult: Transient atrial fibrillation, accelerated hypertension, shoulder/jaw discomfort HPI: Ms. Burt is a 82 year old female seen in interventional cardiology consultation at the request of the hospitalist and patient presents with tremulousness yesterday, accelerated hypertension, bilateral scapular pressure/discomfort with bilateral jaw irradiation all resolving after arrival in the ER. Initial ECG in the ER revealed atrial fibrillation with no acute changes; that then converted to normal sinus rhythm. Today she feels fine she is asymptomatic she has none of the symptoms described above, currently She has a history of essential hypertension with multiple medication intolerances/allergies, mild coronary disease by remote heart catheterization [id number] which included renal angiography with no evidence of renal artery stenosis. She has always had difficult to control hypertension, however no sequela such as stroke or heart failure. This is her second episode of known transient A-fib. Troponin is mildly elevated at 43, blood pressure 178/73 (normally in the officeshe is usually 130-150 systolic); Creatinine 1.45 which is stable but the highest her creatinine has been is 1.60 several years ago; current ECG normal sinus rhythm, low voltage in the precordial leads but unchanged from the past. Risks, benefits, alternatives and informed decision-making process performed with the patient for 30 minutes this afternoon in regards to further cardiac assessment for possible ACS including stress perfusion imaging versus invasive cardiac catheterization. Patient would like to further engage her children and discussed with this evening, in the meantime we will continue to survey cardiac troponins continue current therapies, we will tentatively make up place for her on the Compensation Manager schedule tomorrow; if she declines we will arrange outpatient stress imaging on appropriate medical therapy. Review of Systems Review of Systems All other systems reviewed & are negative unless noted below or in HPI Cardiovascular Cardiovascular: Reports as per HPI and Reports radiating jaw, neck or arm pain [facility] Medical History (Updated 01/27/23 @ 15:48 by Sherron Strauss DO) Cataract Hypertension Surgical History S/P partial hysterectomy Family History (Updated 01/27/23 @ 11:35 by Daja Armijo RN) Father Stroke Mother Stroke Sister Breast cancer Myocardial infarction Social History Smoking Status: Former smoker Substance Use Type: None Meds Medications and Allergies Allergies amlodipine [From Norvasc] Allergy (Verified 01/27/23 08:01) Unknown Reaction clonidine [From Catapres] Allergy (Verified 01/27/23 08:01) Unknown Reaction hydralazine Allergy (Verified 01/27/23 08:01) Unknown Reaction lisinopril Allergy (Verified 01/27/23 08:01) Unknown Reaction methylprednisolone [From Medrol] Allergy (Verified 01/27/23 08:01) Unknown Reaction Payhuat-CLI-NhC Reductase Inhibitor [Qxiuliw-Zuk-Clp Reductase Inhibitor] Allergy (Verified 01/27/23 08:01) Unknown Reaction Sulfa (Sulfonamide Antibiotics) Allergy (Verified 01/27/23 08:01) Unknown Reaction Home Medications aspirin 81 mg tablet,delayed release (Neli Low Dose Aspirin) 81 mg PO DAILY 03/12/17 [History Confirmed 01/27/23] fenofibrate 54 mg tablet 54 mg PO DAILY 03/12/17 [History Confirmed 01/27/23] levothyroxine 100 mcg tablet 112 mcg PO DAILY 03/12/17 [History Confirmed 01/27/23] spironolactone 25 mg tablet 25 mg PO DAILY 03/12/17 [History Confirmed 01/27/23] losartan 50 mg tablet 50 mg PO DAILY 01/27/23 [History Confirmed 01/27/23] Exam Physical Exam Vital Signs: Temp Pulse Resp BP Pulse Ox O2 Del Method 97.9 F 61 16 178/73 H 99 Room Air 01/27/23 12:00 01/27/23 13:34 01/27/23 13:34 01/27/23 13:34 01/27/23 12:00 01/27/23 12:05 Const General: cooperative, healthy appearing, comfortable, no acute distress, well developed and well groomed Nutritional Appearance: average body habitus Orientation: alert, awake and oriented x3 HEENT Head: normal to inspection Eyes General: appearance normal, both eyes and all related structures Neck Neck: normal visual inspection Chest Chest palpation & inspection: normal inspection of the chest Resp Effort & Inspection: normal respiratory effort Auscultation: clear to auscultation bilaterally Cardio Palpation: normal PMI Rate: regular rate Rhythm: regular rhythm Heart Sounds: S1 normal and S2 normal Bruits: no carotid bruits Pulses: radial pulses present GI Inspection: normal to inspection Skin General: no rashes or lesions noted Neuro General: patient alert, patient awake and patient oriented x3 Cognition: normal cognition Speech: speech normal Extrem General: no clubbing, cyanosis or edema ELOINA Risk Score ELOINA Risk Score Predictor Historical: Age > 65 Years Old, Known CAD Stenosis >/=50% and ASA use in Past 7 Days Presentation: Recent (>/=24hr) Angina and Increased Cardiac Marker Score Risk Score (0-7): 5 Results: 5 Results Labs 01/27/23 08:12 01/27/23 08:12 Lab results: Cardiac Enzymes 01/27/23 01/27/23 01/27/23 Range/Units 08:12 08:12 08:12 AST 19 (13-39) U/L Total Creatine Kinase 52 (30-223) U/L B-Natriuretic Peptide 359.0 H (5-100) pg/mL CBC 01/27/23 Range/Units 08:12 RBC 4.73 (3.60-5.00) X10E6/uL Hgb 14.0 (11.8-15.4) g/dL Hct 41.4 (34.0-46.4) % Plt Count 281 (150-450) x10E3/uL Neut # (Auto) 4.6 (1.8-7.7) x10E3/uL Lymph # (Auto) 1.6 (1.00-4.8) x10E3/uL Elmore # (Auto) 0.5 (0.0-0.8) x10E3/uL Eos # (Auto) 0.1 (0.0-0.45) x10E3/uL Baso # (Auto) 0.1 (0.0-0.2) x10E3/uL Comprehensive Metabolic Panel 01/27/23 Range/Units 08:12 Sodium 132 L (136-145) mmol/L Potassium 4.6 (3.5-5.1) mmol/L Chloride 98 (98-107) mmol/L Carbon Dioxide 27.4 (21.0-31.0) mmol/L BUN 30 H (7-25) mg/dL Creatinine 1.45 H (0.60-1.20) mg/dL Glucose 105 H (70-100) mg/dL Calcium 9.8 (8.6-10.3) mg/dL AST 19 (13-39) U/L ALT 9 (7-52) U/L Alkaline Phosphatase 46 (34-104) U/L Total Protein 6.9 (6.4-8.9) gm/dL Albumin 4.0 (3.5-5.7) gm/dL Intake and Output 01/26/23 01/27/23 01/27/23 23:59 07:59 15:59 Other: # Voids 1 Weight 58.967 kg 57.3 kg Date of Last Bowel Movement 01/26/23 Patient Weight 01/27/23 23:59 Weight 57.3 kg Lab 01/27/23 08:12 PT 12.2 INR 1.0 APTT 31.7 EKG Interpretations EKG EKG results cardiology: sinus rhythm (Transient A-fib in the ER) A&P - Cardiology (1) Atrial fibrillation: Code(s): I48.91 - Unspecified atrial fibrillation (2) Back pain with radiation: Code(s): M54.9 - Dorsalgia, unspecified (3) Elevated troponin: Code(s): R79.89 - Other specified abnormal findings of blood chemistry (4) Hypertension: Code(s): I10 - Essential (primary) hypertension Documented By: Sherron Strauss DO 01/27/23 1526 Signed By: <Electronically signed by Sherron Strauss DO> 01/27/23 1547 [facility] Work Phone: 1(600) 602-682911-01-2023 History and physical note Author Elsa Amin [facility] January 27, 2023 2:57pm Note Date/Time January 27, 2023 2 :57pm [facility] [address] [place] [address] Hospitalist H&P Signed Patient: Janelle Burt MR#: [id number] : 1940 Acct:[id number] Age/Sex: 82 / F Adm Date: 3 Loc: Room: [address] [place] [address] Type: ADM INOo Attending Dr: Elsa Amin MD Copies to: MD Elsa Oakes MD~ HPI DATE OF EXAMINATION: 01/27/23 CHIEF COMPLAINT: back pain radiating to jaw HISTORY OF PRESENT ILLNESS: Ms. Burt is an 82-year-old female with past medical history of hypertension, hypothyroidism, and hyperlipidemia who presents to the ER with complaint of painacross her upper back that radiates into the neck and arms bilaterally as well as the jaw. She says the pain started last night when she was lying in bed. She describes it as a tightness across her back that traveled into her arms and jaw. She also experienced some numbness and tingling in her fingers. She said the pain lasted 10 to 20 minutes and then subsided. She denies any chest pain, palpitations, or dyspnea during the episode. She cannot identify any aggravating or relieving factors and says this has never happened before. She reports waking up a few times throughout the night with similar pain. In the morning, she no longer had the back pain but felt weak and shaky. She checked her blood pressure and said it was in the 180s/100s and that is when she decidedto come to the ER. She has no personal history of stroke or congestive heart failure. She has had 1 prior episode of atrial fibrillation. She does have a family history of stroke in both parents at age 79 and 84. She has a family history of heart disease on her mother side. In the ER, troponin level was elevated to 47.3. BNP was 359. Blood pressure on admission was 128/82 and has been increasing. Chest x-ray showed linear scarring of the left lung base. Initial ECG so it showed atrial fibrillation. Repeat ECG an hour later showed return to sinus rhythm with first-degree AV block. [id number] equals 5. She was admitted for further observation and cardiology evaluation. Review of Systems Review of Systems All other systems reviewed & are negative unless noted below or in HPI Review of systems: Neuro: Reports numbness/tingling in extremities. Denies dizziness/lightheadedness Pulmonary: Denies dyspnea, cough, wheezing. Cardiac: Denies chest pain/pressure, edema, palpitations. GI: Denies abdominal pain, N/V, constipation and diarrhea [facility] Medical History (Updated 01/27/23 @ 11:21 by Annika Toledo) Cataract Hypertension Surgical History S/P partial hysterectomy Family History (Updated 01/27/23 @ 11:35 by Daja Armijo RN) Father Stroke Mother Stroke Sister Breast cancer Myocardial infarction Social History Smoking Status: Former smoker Substance Use Type: None Meds Medications and Allergies Allergies amlodipine [From Norvasc] Allergy (Verified 01/27/23 08:01) Unknown Reaction clonidine [From Catapres] Allergy (Verified 01/27/23 08:01) Unknown Reaction hydralazine Allergy (Verified 01/27/23 08:01) Unknown Reaction lisinopril Allergy (Verified 01/27/23 08:01) Unknown Reaction methylprednisolone [From Medrol] Allergy (Verified 01/27/23 08:01) Unknown Reaction Kyyiywm-TVN-EwM Reductase Inhibitor [Foqdgmu-Eup-Wpp Reductase Inhibitor] Allergy (Verified 01/27/23 08:01) Unknown Reaction Sulfa (Sulfonamide Antibiotics) Allergy (Verified 01/27/23 08:01) Unknown Reaction Home Medications aspirin 81 mg tablet,delayed release (Neli Low Dose Aspirin) 81 mg PO DAILY 03/12/17 [History Confirmed 01/27/23] fenofibrate 54 mg tablet 54 mg PO DAILY 03/12/17 [History Confirmed 01/27/23] levothyroxine 100 mcg tablet 112 mcg PO DAILY 03/12/17 [History Confirmed 01/27/23] spironolactone 25 mg tablet 25 mg PO DAILY 03/12/17 [History Confirmed 01/27/23] losartan 50 mg tablet 50 mg PO DAILY 01/27/23 [History Confirmed 01/27/23] Exam Physical Exam Vital Signs: Temp Pulse Resp BP Pulse Ox O2 Del Method 97.8 F 64 20 181/74 H 100 Room Air 01/27/23 10:54 01/27/23 10:54 01/27/23 10:54 01/27/23 10:54 01/27/23 10:54 01/27/23 10:54 Narrative: General: Not in any acute distress Skin: Intact Extremities: Normal to inspection. No erythema, edema, or lesions. HEENT: Head normocephalic, atraumatic, face symmetrical. Pulm: Breathing normally without excessive effort. LCTAB. Cardio: HRRR no MRG Abdomen: Normal inspection. Soft and nontender to palpation. BSx4. Normoactive. Musculoskeletal: Moves all extremities. Neuro: Patient alert, oriented x3. No focal neurologic deficits. ELOINA Risk Score ELOINA Risk Score Predictor Historical: Age > 65 Years Old and 3 or more Risk Factors: FHx,HTN,elevated cholesterol,DM,active smoker Presentation: Recent (>/=24hr) Angina and Increased Cardiac Marker Score Risk Score (0-7): 4 Results Lab Results Labs: Laboratory Last Values Corrected WBC 6.9 X10E3/uL (3.8-11.6) 01/27/23 08:12 Uncorrected WBC Count 6.9 x10E3/uL (3.8-11.6) 01/27/23 08:12 RBC 4.73 X10E6/uL (3.60-5.00) 01/27/23 08:12 Hgb 14.0 g/dL (11.8-15.4) 01/27/23 08:12 Hct 41.4 % (34.0-46.4) 01/27/23 08:12 MCV 87.5 fl (80-100) 01/27/23 08:12 MCH 29.7 pg (24.7-34.3) 01/27/23 08:12 MCHC 33.9 g/dL (32.0-35.0) 01/27/23 08:12 RDW 13.7 % (11.9-15.3) 01/27/23 08:12 Plt Count 281 x10E3/uL (150-450) 01/27/23 08:12 MPV 7.7 fl (6.3-10.7) 01/27/23 08:12 Neut % (Auto) 66.2 % (.) 01/27/23 08:12 Lymph % (Auto) 23.7 % (.) 01/27/23 08:12 Elmore % (Auto) 7.4 % (.) 01/27/23 08:12 Eos % (Auto) 1.7 % (.) 01/27/23 08:12 Baso % (Auto) 1.0 % (.) 01/27/23 08:12 Nucleat RBC Rel Count 0.1 /100 WBC (0-0.5) 01/27/23 08:12 Neut # (Auto) 4.6 x10E3/uL (1.8-7.7) 01/27/23 08:12 Lymph # (Auto) 1.6 x10E3/uL (1.00-4.8) 01/27/23 08:12 Elmore # (Auto) 0.5 x10E3/uL (0.0-0.8) 01/27/23 08:12 Eos # (Auto) 0.1 x10E3/uL (0.0-0.45) 01/27/23 08:12 Baso # (Auto) 0.1 x10E3/uL (0.0-0.2) 01/27/23 08:12 Monocyte Dist Width 18.32 % (0.00-20.00) 01/27/23 08:12 PT 12.2 Seconds (9.0-12.9) 01/27/23 08:12 INR 1.0 01/27/23 08:12 APTT 31.7 Seconds (25.1-36.5) 01/27/23 08:12 PHA Creatinine Clear 25.39 01/27/23 08:12 Sodium 132 mmol/L (136-145) L 01/27/23 08:12 Potassium 4.6 mmol/L (3.5-5.1) 01/27/23 08:12 Chloride 98 mmol/L (98-107) 01/27/23 08:12 Carbon Dioxide 27.4 mmol/L (21.0-31.0) 01/27/23 08:12 Anion Gap 11.2 mEq/L (6.0-15.0) 01/27/23 08:12 BUN 30 mg/dL (7-25) H 01/27/23 08:12 Creatinine 1.45 mg/dL (0.60-1.20) H 01/27/23 08:12 Est GFR (CKD-EPI) 35.790 mL/Min 01/27/23 08:12 Glucose 105 mg/dL (70-100) H 01/27/23 08:12 Calcium 9.8 mg/dL (8.6-10.3) 01/27/23 08:12 Magnesium 2.0 mg/dL (1.9-2.7) 01/27/23 08:12 Magnesium Cancelled 01/27/23 08:12 Total Bilirubin 0.7 mg/dl (0.3-1.0) 01/27/23 08:12 AST 19 U/L (13-39) 01/27/23 08:12 ALT 9 U/L (7-52) 01/27/23 08:12 Alkaline Phosphatase 46 U/L (34-104) 01/27/23 08:12 Total Creatine Kinase 52 U/L (30-223) 01/27/23 08:12 Troponin I High Sens 47.3 pg/mL (0.0-15.0) H 01/27/23 08:12 B-Natriuretic Peptide 359.0 pg/mL (5-100) H 01/27/23 08:12 Total Protein 6.9 gm/dL (6.4-8.9) 01/27/23 08:12 Albumin 4.0 gm/dL (3.5-5.7) 01/27/23 08:12 Globulin 2.9 gm/dL 01/27/23 08:12 Albumin/Globulin Ratio 1.4 01/27/23 08:12 TSH 3rd Generation 0.18 uIU/mL (0.45-5.33) L 01/27/23 08:12 TSH 3rd Generation Cancelled 01/27/23 08:12 Assessment & Plan Assessment/Plan (1) Back pain with radiation: (2) Atrial fibrillation: (3) Hypertension: (4) Hypothyroid: Plan Back pain with radiation - in setting of A-fib Patient presents to ER with one day history of back pain radiating to the neck and arms bilaterally as well as the jaw. She has a history of 1 episode of atrial fibrillation. Initial ECG in ER showed atrial fibrillation. Repeat ECG 1 hour later showed advent of sinus rhythm with first-degree AV block. Chest x-ray showed linear scarring at the left lung base. -[id number]-XICo equals 5. Recommend anticoagulation. -BNP elevated to 359 on admission. -Troponin elevated to 47.3 on admission. Will trend. -Consult cardiology for recommendations and medication management -Continue home medications as appropriate. HTN- chronic -BP 128/82 on admission. Trending upward. Latest BP 181/74 -continue home medications Hypothyroidism-chronic -continue home medications Disposition: Ms. Burt is an 82-year-old female who presents for back pain withradiation to the neck, arms, and jaw. She has a history of atrial fibrillation and was found to have a repeat episode of A-fib on admission to the ER. She is currently asymptomatic. Admit for observation. Consult cardiology. IP vs OBS Justification Based on differential dx, clinical care plan, and risk of adverse events, if untreated, in my clinical judgement this patient requires an acute care setting as: OBSERVATION because of an expectation of an under 2 midnight stay. Estimated length of stay (# of days): 1 Time spent planning advance care (# min): 15 Advance directives explained/discussed with: Patient Discussed CODE STATUS with the patient and she wishes to be DNR CCA without intubation. Documented By: Elsa Amin MD 01/27/23 1106 Signed By: <Electronically signed by Elsa Amin MD> 01/27/23 9764 [facility] Work Phone: 1(693) 864-101510-09-2023 Evaluation note* Encounter Date Diagnosis Assessment Notes Treatment Notes Treatment Clinical Notes Dec, Hypertensive chronic kidney disease with stage 1 through stage 4 chronic kidney disease, or unspecified chronic kidney disease (ICD-10 - I12.9) Blood pressure is high today but usually controlled. She appears to be euvolemic. Continue current medications. I have advised her to monitor blood pressure and call office if this goes greater than 140/90 mmHg. Dec, Chronic kidney disea se, stage 3b (ICD-10 - N18.32) She has CKD due to HTN with b/l serum Creatinine 1.2-1.3 mg/dl. I have d/w her the importance of good HTN control to slow down the progression of her CKD. 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 She drinks plenty of fluids. Dec, Hypoparathyroidism (ICD-10 - E20.9) She has a low parathyroid hormone but calcium and phosphorus are within normal limit. She has a low vitamin D and currently takes oral calcium vitamin D supplement. We will continue to monitor PTH. Dec, Dyslipidemia (ICD-10 - E78.5) Continue fenofibrate. Continue to follow with PCP for lipid profile and LFTs monitoring [facility] Other 08-08-2023 Evaluation note* Encounter Date Diagnosis Assessment Notes Treatment Notes Treatment Clinical Notes Oct, Hypothyroidism, unspecified type (ICD-10 - E03.9) Chronic problem, due for labs. Continue present medication. Oct, Chronic kidney disease, stage 3b (ICD-10 - N18.32) Followup w Nephrology in near future. No acute changes. Oct, Essential (primary) hypertension (ICD-10 - I10) Chronic problem. Labs soon. Continue present meds; adequately controlled. Oct, Other She is establis [facility] w podiatry for her foot fracture. [facility] Other 03-16-2023 Evaluation note* Encounter Date Diagnosis Assessment Notes Treatment Notes Treatment Clinical Notes May, Hypertensive chronic kidney disease with stage 1 through stage 4 chronic kidney disease, or unspecified chronic kidney disease (ICD-10 - I12.9) Blood pressure is Controlled. Continue current medications. I have advised her to monitor blood pressure and call office if this goes greater than 140/90 mmHg. May, Chronic kidney disea se, stage 3b (ICD-10 - N18.32) She has CKD due to HTN with b/l serum Creatinine 1.2-1.3 mg/dl. I have d/w her the importance of good HTN control to slow down the progression of her CKD. 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 She drinks plenty of fluids. May, Hypoparathyroidism (ICD-10 - E20.9) She has a low parathyroid hormone but calcium and phosphorus are within normal limit. She has a low vitamin D and currently takes oral calcium vitamin D supplement. We will continue to monitor PTH. [employer] Other 09-12-2022 Evaluation note* Encounter Date Diagnosis Assessment Notes Treatment Notes Treatment Clinical Notes Nov, Hypertensive chronic kidney disease with stage 1 through stage 4 chronic kidney disease, or unspecified chronic kidney disease (ICD-10 - I12.9) Blood pressure is Controlled. Continue current medications. I have advised her to monitor blood pressure and call office if this goes greater than 140/90 mmHg. Nov, Chronic kidney disea se, stage 3b (ICD-10 - N18.32) She has CKD due to HTN with b/l serum Creatinine 1.2-1.3 mg/dl. I have d/w her the importance of good HTN control to slow down the progression of her CKD. 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 She drinks plenty of fluids. Nov, Hypoparathyroidism (ICD-10 - E20.9) She has a low parathyroid hormone but calcium and phosphorus are within normal limit. She has a low vitamin D and currently takes oral calcium vitamin D supplement. We will continue to monitor PTH. [employer] Other 03-03-2022 Evaluation note* Encounter Date Diagnosis Assessment Notes Treatment Notes Treatment Clinical Notes May, Hypertensive chronic kidney disease with stage 1 through stage 4 chronic kidney disease, or unspecified chronic kidney disease (ICD-10 - I12.9) Blood pressure is Controlled. Continue current medications. I have advised her to monitor blood pressure and call office if this goes greater than 140/90 mmHg. May, Chronic kidney disea se, stage 3b (ICD-10 - N18.32) She has CKD due to HTN with b/l serum Creatinine 1.3 mg/dl. I have d/w her the importance of good HTN control to slow down the progression of her CKD. May, Secondary hyperparathyroidism (ICD-10 - N25.81) MBD parameters are within the goal. 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 She drinks plenty of fluids. [employer] Other Evaluation noteNo assessment information available [facility] Work Phone: Evaluation note* Diagnosis Onset Date Resolution Status Atrial fibrillation acute Back pain with radiation acu te Hypertension acute Hypothyroid acute [facility] Work Phone: Evaluation note* Diagnosis Onset Date Resolution Status Atrial fibrillation acute Back pain with radiation acu te Chest pain acute Elevated troponin acute Hypertension acute Hypothyroid acute NSTEMI (non-ST elevated myocardial infarction) acute [facility] Work Phone: Evaluation noteNo InformationNort [employer] Other Evaluation note* Diagnosis Paroxysmal atrial fibrillation (CMS/HCC)- Primary Atrial fibrillation Chest pain, unspecified type Accelerated hypertension Essential hypertension, malignant Stage 3a chronic kidney disease (CMS/HCC) BMI 22.0-22.9, adult documented in this encounter [facility] Work Phone: Evaluation note* Diagnosis Paroxysmal atrial fibrillation (CMS/HCC) Atrial fibrillation Accelerated hypertension Essential hypertension, malignant Mixed hyperlipidemia Stage 3b chronic kidney disease (CMS/HCC) documented in this encounter [facility] Work Phone: [facility] general Narrative - Reported* Type Description Date Medical History hyperlipidemia Medical History hypertension Medical History cervical cancer Surgical History partial hysterectomy Surgical History appendectomy Surgical History cataract Hospitalization History SEE ABOVE [facility] Other [facility] general Narrative - Reported* Type Description Date Medical History hyperlipidemia Medical History hypertension Medical History cervical cancer Surgical History partial hysterectomy Surgical History appendectomy Surgical History cataract Surgical History TORN RETINA IN LEFT EYE Hospitalization History SEE ABOVE [facility] Other [facility] general Narrative - Reported* Type Description Date Medical History hyperlipidemia Medical History hypertension Medical History cervical cancer Surgical History partial hysterectomy Surgical History appendectomy Surgical History cataract Surgical History TORN RETINA IN LEFT EYE Surgical History Heart Cath 01/2023 Hospitalization History SEE ABOVE Hospitalization History [facility] 01/2023 [facility] [employer] Other History of Present illness Narrative* The patient presents for follow-up of essential hypertension. The patient states she has been doingwell with her blood pressure control since the last visit. * Symptoms: denies impaired vision, denies dyspnea, denies chest pain, denies intermittent leg claudication and denies lower extremity edema. Associated symptoms include no headache. * Home monitoring: The patient checks her blood pressure sporadically. Blood pressure control has been good. [facility] Work Phone: Reason for referral (narrative)* Consultation (Routine) - Authorized Specialty Diagnoses / Procedures Referred By Lino briscoe Referred To Contact Cardiology Diagnoses Paroxysmal atrial fibrillation (CMS/HCC) Procedures Follow Up In Cardiology Adrien Avalos APRN-CNP [address] [facility] [address], [address] [address] Michael Strauss DO [address] [facility] [address], [address] [address] Referral ID Status Reason Start Date Expiration Date V isits Requested Visits Authorized [id number] Authorized 03/10/2023 03/09/2024 1 1 * Cardiovascular (Routine) - Pending Review Specialty Diagnoses / Procedures Referred By Contac t Referred To Contact Cardiology Diagnoses Paroxysmal atrial fibrillation (CMS/HCC) Procedures Holter Or Event [employer] Adrien Avalos APRN-CRUMB PACKER [address] [facility], [place] [place] [address] Referral ID Status Reason Start Date Expiration Date V isits Requested Visits Authorized [id number] Pending Review 03/10/2023 03/09/2024 1 1 [facility] Work Phone: Reason for referral (narrative)* Consultation (Routine) - Authorized Specialty Diagnoses / Procedures Referred By Contac t Referred To Contact Cardiology Diagnoses Paroxysmal atrial fibrillation (CMS/HCC) Procedures Follow Up In Cardiology Michael Strauss DO [address] [facility], [address] [place] [address] Adrien Avalos APRN-CRUMB PACKER [address] [facility], [address] [place] [address] Referral ID Status Reason Start Date Expiration Date V isits Requested Visits Authorized [id number] Authorized 05/18/2023 05/17/2024 1 1 [facility] Work Phone: Chief Complaint JANELLE BURT is being seen for an annual follow-up of.* JANELLE BURT is being seen for an annual follow-up of. * Patient is a 80-year-old female who returns for routine follow-up she is doing well and has had no cardiovascular complaints or hospitalizations, heart failure, arrhythmias or nitrate usage or angina. We have followed her strictly for accelerated hypertension with a complete work-up performed throughout the past details of which are reviewed. Catheterization from 2007 revealed normal coronary arteries and normal renal arteries and normal left ventricular function. Her blood pressures been much better controlled over the past couple years on current therapies. She has developed chronic renal insufficiency this is likely due to history of accelerated hypertension for many years. * Recommendations, continue current therapies we will follow-up in 1 year, continue following with nephrology as well. * JANELLE BURT is being seen for an annual follow-up of. * 81-year-old female returns at a early time point with accelerated hypertension. She recently lost her sister has been taking care of her [employer]. She has underlying accelerated hypertension, known chronic kidney disease due to the above, multiple medication intolerances and allergies as noted. * Blood pressures in 2020 and 2019 were well controlled and even in nephrology outpatient office werealso well controlled; however, more recently since the of her sister, her blood pressures have become uncontrolled. * We corroborated 2 different measurements this morning at 218/80 and 192/80. We will escalate her losartan to 50 mg daily follow-up with a blood pressure check in the next 8 weeks, we will see her again within 1 year or sooner * JANELLE BURT is being seen for an annual follow-up of. * 81-year-old female returns at a early time point with accelerated hypertension. She recently lost her sister has been taking care of her [employer]. She has underlying accelerated hypertension, known chronic kidney disease due to the above, multiple medication intolerances and allergies as noted. * Blood pressures in 2020 and 2019 were well controlled and even in nephrology outpatient office werealso well controlled; however, more recently since the of her sister, her blood pressures have become uncontrolled. * We corroborated 2 different measurements this morning at 218/80 and 192/80. We will escalate her losartan to 50 mg daily follow-up with a blood pressure check in the next 8 weeks, we will see her again within 1 year or sooner * Blood pressure f/u: 'doing ok' * JANELLE BURT is being seen for a 8 week follow-up of hypertension. * Patient presents to the office ambulatory with steady gait. * Last evaluated in clinic Dr. Strauss December 2021. At that time, losartan increased to 50 mg daily.She has been compliant with changes. Denies any side effects. Occasionally follows blood pressure at home and for the most part it is been optimal. At goal in the office today. * Otherwise, she denies any change in overall cardiovascular status since last office evaluation. Family History No Family History Records FoundUnknown Family Member Name Dates Details Family history of arterioscl erotic cardiovascular disease: Mother, Father(V17.49, Z82.49) Status:Active Family history of cerebrovas cular accident (CVA): Mother, Father(V17.1, Z82.3) Status:Active Unknown Family Member Name Dates Details Family history of arterioscl erotic cardiovascular disease: Mother, Father(V17.49, Z82.49) Status:Active Family history of cerebrovas cular accident (CVA): Mother, Father(V17.1, Z82.3) Status:Active Unknown Family Member Name Dates Details Family history of arterioscl erotic cardiovascular disease: Mother, Father(V17.49, Z82.49) Status:Active Family history of cerebrovas cular accident (CVA): Mother, Father(V17.1, Z82.3) Status:Active Unknown Family Member Name Dates Details Family history of arterioscl erotic cardiovascular disease: Mother, Father(V17.49, Z82.49) Status:Active Family history of cerebrovas cular accident (CVA): Mother, Father(V17.1, Z82.3) Status:Active Unknown Family Member Name Dates Details Family history of arterioscl erotic cardiovascular disease: Mother, Father(V17.49, Z82.49) Status:Active Family history of cerebrovas cular accident (CVA): Mother, Father(V17.1, Z82.3) Status:Active Unknown Family Member Name Dates Details Family history of arterioscl erotic cardiovascular disease: Mother, Father(V17.49, Z82.49) Status:Active Family history of cerebrovas cular accident (CVA): Mother, Father(V17.1, Z82.3) Status:Active Unknown Family Member Name Dates Details : Sister Status:Active Family history of cerebrovas cular accident (CVA): Mother, Father(V17.1, Z82.3) Status:Active Family history of arterioscl erotic cardiovascular disease: Mother, Father(V17.49, Z82.49) Status:Active Unknown Family Member Name Dates Details Family history of arterioscl erotic cardiovascular disease: Mother, Father(V17.49, Z82.49) Status:Active Family history of cerebrovas cular accident (CVA): Mother, Father(V17.1, Z82.3) Status:Active : Sister Status:Active Unknown Family Member Name Dates Details Family history of arterioscl erotic cardiovascular disease: Mother, Father(V17.49, Z82.49) Status:Active Family history of cerebrovas cular accident (CVA): Mother, Father(V17.1, Z82.3) Status:Active : Sister Status:Active Unknown Family Member Name Dates Details Family history of arterioscl erotic cardiovascular disease: Mother, Father(V17.49, Z82.49) Status:Active Family history of cerebrovas cular accident (CVA): Mother, Father(V17.1, Z82.3) Status:Active : Sister Status:Active Relationship Condition Age at Onset Recorded Date/T julieta father Cerebrovascular accident (CVA) Unknown Not Specified Cerebrovascular accident (CVA) Unknown sister Malignant neoplasm of breast Unknown Myocardial infarction Unknown Chief Complaint and Reason for Visit Chief Complaint BP high Chief Complaint ill Reason for Visit Atrial fibrillation Back pain with radiation Hypertension Hypothyroid Chief Complaint ill Reason for Visit Atrial fibrillation Back pain with radiation Chest pain Elevated troponin Hypertension Hypothyroid NSTEMI (non-ST elevated myocardial infarction) Advance Directives No Advanced Directives Records Found Advance Directive Response Recorded Date/ Time Advance Directives No February 7:44pm Summary Purpose Additional Source Comments REASON FOR VISIT (unrecogniz ed section and content) Reason Comments Hospital Follow-up [facility] 01/28 Specialty Diagnoses / Procedures Referred By Contac t Referred To Contact Cardiology Diagnoses Chest pain, unspecified type Procedures Follow Up In Cardiology Michael Strauss DO [address] [address], [address] [address] Michael Strauss, [address] [facility] [address], [address] [address] Referral ID Status Reason Start Date Expiration Date V isits Requested Visits Authorized [id number] Authorized 01/28/2023 01/28/2024 1 1 Reason Comments Follow-up Never had [place]. Specialty Diagnoses / Procedures Referred By Contac t Referred To Contact Cardiology Diagnoses Paroxysmal atrial fibrillation (CMS/HCC) Procedures Follow Up In Cardiology Adrien Avalos, LINOLEUM TILE FLOOR LAYER-CRUMB PACKER [facility] [facility], [address] [place] [address] Michael Strauss, DO [address] [facility] [address], [address] [place] [address] Referral ID Status Reason Start Date Expiration Date V isits Requested Visits Authorized [id number] Authorized 03/10/2023 03/09/2024 1 1 Care Teams (unrecognized sec tion and content) Team Status: Active Member Role Status Dates Antonino Gustafson MD Primary Care Provider Active Team Status: Inactive Member Role Status Dates Antonino Gustafson MD Primary Care Provider Active Willie Lyon DO Emergency Provider Active Elsa Amin MD Admit Provider, Attending Provider Active Lian Reyes RN Other Provider Active Sherron Strauss DO Other Provider Active Ludwin Arias MD Other Provider Active Michael Carrasco MD Other Provider Active Chance Dennison MD Other Provider Active Juan Martin MD Other Provider Active Adrien Avalos APRN Other Provider Active Allie Flores MD Other Provider Active Reagan Bello MD Other Provider Active Adrienne Oconnor MD Other Provider Active Camryn Bosch [facility] Other Provider Active Svitlana Reyes MD Other Provider Active Team Status: Inactive Member Role Status Dates Antonino Gustafson MD Primary Care Provider Active Ortiz Cota DO Emergency Provider Active Team Status: Active Member Role Status Dates Antonino Gustafson MD Primary Care Provider Active Willie Lyon DO Emergency Provider Active Elsa Amin MD Admit Provider, Attending Provider Active [employer] Relationship Specialty Start Date End Date Antonino Gustafson MD PCP - General 03/29/1998 [employer] Relationship Specialty Start Date End Date Antonino Gustafson MD PCP - General 03/29/1998 Goals (unrecognized section and content) Goals may be documented in a n alternate section INFORMATION SOURCE (unrecogn ized section and content) DATE CREATED AUTHOR 03/21/2022 [facility] DATE CREATED AUTHOR AUTHOR'S ORGANIZ ATION 03/21/2022 [employer] DATE CREATED AUTHOR AUTHOR'S ORGANIZ ATION 06/05/2022 [facility] DATE CREATED AUTHOR AUTHOR'S ORGANIZ ATION 05/07/2023 [facility] DATE CREATED AUTHOR AUTHOR'S ORGANIZ ATION 05/25/2023 [facility] FOR RECORDS PERTAINING TO PATIENTS WHO ARE OR HAVE BEEN ENROLLED IN A CHEMICAL DEPENDENCY/SUBSTANCEABUSE PROGRAM, SOME INFORMATION MAY BE OMITTED. This clinical summary was aggregated from multiple sources. Caution should be exercised in using it in the provision of clinical care. This summary normalizes information from multiple sources, and as a consequence, information in this document may materially change the coding, format and clinical context of patient data. In addition, data may be omitted in some cases. CLINICAL DECISIONS SHOULD BE BASED ON THE PRIMARY CLINICAL RECORDS. [employer] provides no warranty or guarantee of the accuracy or completeness of information in this document.
[2023-07-27 08:18] LABS: Hematocrit 39.4 % (36.0-48.0); Hemoglobin 13.5 g/dL (12.0-16.0); Mean Corpuscular HGB Conc 34.3 g/dL (29.9-35.2); Mean Corpuscular Hemoglobin 29.9 pg (26.7-34.0); Mean Corpuscular Volume 87.2 fL (81.0-99.0); Mean Platelet Volume 9.1 fL (9.5-13.5); Platelet Count 209 10^3/uL (150-450); Red Blood Count 4.52 10^6/uL (4.20-5.40); Red Cell Distribution Width 12.6 % (11.0-15.0); White Blood Count 5.8 10^3/uL (4.0-11.0)
[2023-07-27 08:41] LABS: Albumin Level 3.5 g/dL (3.4-5.0); Anion Gap 10.7; Calcium 9.3 mg/dL (8.5-10.1); Carbon Dioxide 28.4 mmol/L (21.0-32.0); Chloride 96 mmol/L (98-107); Estimated GFR (African America 56 (>=60); Estimated GFR (Non-African Ame 46 (>=60); Glucose 95 mg/dL (74-106); Phosphorus 3.5 mg/dL (2.6-4.7); Potassium 4.1 mmol/L (3.5-5.1); Sodium 131 mmol/L (136-145); Uric Acid 3.4 mg/dL (2.6-6.0)
[2023-07-27 11:46] LABS: Bilirubin Urine NEGATIVE (NEGATIVE); Blood Urine NEGATIVE (NEGATIVE); Clarity Urine CLEAR (CLEAR); Color Urine LT. YELLOW (YELLOW); Glucose Urine UA NEGATIVE (NEGATIVE); Ketones Urine NEGATIVE (NEGATIVE); Leukocyte Esterase Urine SMALL (NEGATIVE); Nitrite Urine NEGATIVE (NEGATIVE); Protein Urine NEGATIVE (NEG/TRACE); Specific Gravity Urine 1.015 (1.005-1.025)
[2023-07-27 11:55] LABS: Creatinine Urine Random 100.05 mg/dL (20.00-300.00); Total Protein Urine Random 9.6 mg/dL (<=11.9)
[2023-07-27 12:14] LABS: Bacteria Urine NONE SEEN #/HPF (NONE SEEN); Cast Seen? NONE SEEN #/LPF (NONE SEEN); Crystals Seen? None Seen #/HPF (None Seen); Mucus Urine NONE SEEN (NONE SEEN); RBC Urine NONE SEEN #/HPF (0-2); Squamous Epithelial Cell Urine RARE #/LPF (NONE/RARE)
[2023-07-28 15:08] LABS: PTH, Intact 16 pg/mL (15-65)
== END 2023-07-27 07:50 | disposition home or self-care (01) ==
LOC: LAB 07:51
PROVIDERS: PCP Family Medicine; Visit Provider Internal Medicine
DX: I12.9 Hypertensive chronic kidney disease with stage 1 through stage 4 chronic kidney disease, or unspecified chronic kidney disease (principal); N18.32 Chronic kidney disease, stage 3b; E87.1 Hypo-osmolality and hyponatremia; E20.9 Hypoparathyroidism, unspecified
CPT/HCPCS: 36415; 80069; 81001; 82306; 82570; 83735; 83970; 84156; 84550; 85027

== ENCOUNTER 2024-02-05 09:55 | Emergency (ER) | payer MEDICARE, OTHER, SELFPAY ==
[2024-02-05 10:08] VITALS: BP 150/80; PULSE 67; TEMP 36.5; O2SAT 99; BMI 22.3
--- OUTSIDE RECORDS SUMMARY | 2024-02-05 10:11 | XMS_ITS | CCD ---
Author Organization [facility] Care Team Providers Care Livestock Yard Supervisor Name Role Phone Antonino Gustafson Unavailable Unavailable Unavailable Bhavna, Liliya Unavailable MD Antonino Gustafson Primary Care Provider [phone] DO Ortiz Cota Emergency Provider [phone] Sj, Dr. Antonino Macedo Primary Care Unav ailevonne Avalos, RE Estes Attending Unavailable Richard, Dr. Michael Ram Referring Unava ilable Richard, Dr. Michael Ram Referring Unava ilable Richard, Dr. Michael Ram Attending Unava ilable Sj, Dr. Antonino Macedo Primary Care Unav ailable SJ, DR ANTONINO Rand Admitting Unavailable GUSTAFSON, DR ANTONINO Rand Attending Unavailable GUSTAFSON, DR ANTONINO Rand Primary Care Unavailable SJ, [...] Unavailable MD Antonino Gustafson Primary Care Provider [phone] DO Willie Lyon Emergency Provider MD Elsa Amin Admit Provider MD Elsa Amin Attending Provider MD Antonino Gustafson Primary Care Provider [phone] DO Willie Lyon Emergency Provider MD Elsa Amin Admit Provider MD Elsa Amin Attending Provider [phone] LILIANE Reyes Other Provider Unavailable DO Sherron Strauss Other Provider MD Ludwin Arias Other Provider MD Michael Carrasco Other Provider MD Chance Dennison Other Provider MD Juan Martin Other Provider AIMEE Cha Other Provider MD Allie Flores Other Provider MD Reagan Bello Other Provider MD Adrienne Oconnor Other Provider ROHAN BoschABISAI Harris Other Provider MD Svitlana Reyes Other Provider [phone] Antonino Gustafson MD Primary Care Provider Lian Reyes Consulting Unavailable Antonino Gustafson Primary Care Unavailable Elsa Amin Admitting Unavailable Elsa Amin Attending Unavailable Sherron Strauss Consulting Unavailable Ludwin Arias Consulting Unavailable Michael Carrasco Consulting Unavail able Chance Dennison Consulting Unavailable Juan Martin Consulting Unavailab Adrien Reilly Consulting Unavailable Allie Flores Consulting Unavailable Reagan Bello Consulting Unavailab Adrienne Parikh Consulting Unavailable Camryn Bosch Consulting Unavailable Svitlana Reyes Consulting Unavailable Antonino Gustafson MD Primary Care Provider Antonino Gustafson MD Primary Care Provider ANTONINO GUSTAFSON Primary Care Unavailable ADRIEN AVALOS Attending Unavailable MICHAEL STRAUSS Referring Unavailable ANTONINO GUSTAFSON Primary Care Unavailable MICHAEL STRAUSS Attending Unavailable ADRIEN AVALOS Referring Unavailable ANTONINO GUSTAFSON Primary Care Unavailable MICHAEL STRAUSS Attending Unavailable MICHAEL STRAUSS Referring Unavailable ANTONINO GUSTAFSON Primary Care Unavailable MICHAEL STRAUSS Referring Unavailable ANTONINO GUSTAFSON Primary Care Unavailable Allergies Allergy Classification Reported Allergen(s) Allergy Type Date of Onset Reaction(s) Facility (20 sources) amLODIPine; Translations: [Norvasc] Drug Allergy 023 Itching [facility] (11 sources) Angiotensin Converting Enzyme (Tati) Inhibitors; Translations: [TATI Inhibitors] Allergy to drug (finding) 023 [facility] 3 Repository (13 sources) cloNIDine; Translations: [Racniwoq-YDN-4 PTWK] Drug Allergy Shortness of breath [place] [address] DO Work Phone: (13 sources) Hmg-Coa Reductase Inhibitors (Statins); Translations: [Statins] Allergy to drug (finding) Myalgia, Unknown [place] [address] DO Work Phone: (20 sources) hydrALAZINE; Translations: [hydrALAZINE] Drug Allergy 022 Diarrhea [facility] (20 sources) Lisinopril; Translations: [lisinopril] Drug Allergy 022 Rash [facility] (10 sources) methylPREDNISolone; Translations: [Medrol (Nestor) TABS] Drug Allergy Anaphylaxis [place] [address] DO Work Phone: (16 sources) Sulfamethoxazole; Translations: [sulfa] Drug Allergy 023 Rash [place] [address] DO Work Phone: (11 sources) Ciprofloxacin Drug Allergy 024 Unknown, Comment:joint pain [facility] (8 sources) cloNIDine Drug Allergy Unknown [facility] Other (18 sources) methylPREDNISolone; Translations: [METHYLPREDNISOLONE] Drug Allergy 022 Anaphylaxis [facility] (8 sources) amLODIPine; Translations: [amlodipine] Drug Allergy Unknown Reaction [facility] (8 sources) cloNIDine; Translations: [clonidine] Drug Allergy Unknown Reaction [facility] (7 sources) Sulfonamides (Antibiotic); Translations: [Sulfa (Sulfonamide Antibiotics)] Allergy to substance Unknown Reaction [facility] (7 sources) Syzphkc-XEB-LcS Reductase Inhibitor; Translations: [Lrplpsj-QXG-FiR Reductase Inhibitor] Allergy to substance Unknown Reaction [facility] (1 source) Amino Acids Drug Allergy [facility] Repository (1 source) amLODIPine Drug Allergy [facility] Repository (2 sources) black walnut pollen extract; Translations: [LBEPDUJ-UBI-CMO REDUCTASE INHIBITORS] Drug Allergy 013 [facility] Repository (1 source) hydrALAZINE Drug Allergy 015 [facility] Repository (1 source) methylPREDNISolone Drug Allergy 015 [facility] Repository (1 source) Sulfonamides (Antibiotic) Drug allergy (disorder) 013 [facility] Repository (5 sources) Statins Depletion *DIETARY PRODUCTS/DIETARY MANAGE Propensity to adverse reactions Unknown [facility] Casmul Other (5 sources) Sulf-10 Drug allergy Unknown [facility] Other (3 sources) Angiotensin-convertin g enzyme inhibitor agent Drug Allergy 023 Rash [facility] (3 sources) HMG-CoA reductase inhibitor Drug Allergy 023 Myalgia [facility] Work Phone: (1 source) Ciprofloxacin Drug Allergy 023 [facility] Repository (1 source) hydrALAZINE Drug Allergy 023 [facility] Repository (1 source) Lisinopril Drug Allergy [facility] Repository (1 source) methylPREDNISolone Drug Allergy [facility] Repository (1 source) Sulfamethoxazole; Translations: [SULFAMETHOXAZOLE] Drug Allergy 023 [facility] 3 Repository Medications Current Medications Medication Drug [...] a day Active CALCIUM CARBONATE-VITAMIN D3 ORAL (3 sources) take 1 tablet by mouth once daily CALCIUM CARBONATE-VITAMIN D3 ORAL Take 1 tablet by mouth once daily. Active take 1 tablet by mouth once ila y CALCIUM CARBONATE-VITAMIN D3 ORAL Take 1 tablet by mouth once daily. 0 Active fenofibrate 54 mg oral tablet (20 sources) Peroxisome Proliferator Receptor alpha Agonist Start: 03-12-2017 take 1 tablet by mouth once daily fenofibrate (Tricor) 54 mg tablet Indications: Hyperlipidemia, unspecified hyperlipidemia type TAKE 1 TABLET BY MOUTH DAILY 90 tablet 3 09/27/2023 Active levothyroxine sodium 0.1 mg oral tablet (20 sources) l-Thyroxine Start: 09-06-2023 End: 12-17-2023 take 1 tablet by mouth once daily in the morning Levothyroxine Active 0 .ROUTE .COMPLEX 90 December 17, 2023 11:32am TAKE 1 TABLET BY MOUTH IN THE MORNING ONCE DAILY ON AN EMPTY STOMACH Start: 08-05-2023 End: 09-06-2023 take 100 ug by mouth once daily Levothyroxine Disconti nued 100 MCG PO Daily August 05, 2023 10:49am September 06, 2023 4:35pm Start: 06-16-2023 End: 08-05-2023 take 1 tablet by mouth once daily in the morning Levothyroxine Discontinued 0 .ROUTE .COMPLEX 90 July 16, 2023 1:34pm August 05, 2023 10:51am TAKE 1 TABLET BY MOUTH ONCE A DAY IN THE MORNING ON AN EMPTY STOMACH Start: 06-04-2022 take 1 tablet by summer th once daily in the morning Levothyroxine Sodium 112 MCG 1 tablet in the morning on an empty stomach Orally Once a day for 90 days May, Active Start: 03-12-2017 End: 06-16-2023 take 1 tablet by mouth once daily Levothyroxine (Synthroid) 100 mcg Tablet Discontinued 100 MCG PO Daily at 0630 30 January 29, 2023 12:00am June 16, 2023 1:52pm Start: 03-12-2017 End: 01-29-2023 take 112 ug by mouth once daily Levothyroxine Disconti nued 112 MCG PO Daily March 12, 2017 1:00am January 29, 2023 10:46am take 1 tablet by summer th once daily in the morning Levothyroxine Sodium 100 MCG TAKE 1 TABLET BY MOUTH ONCE DAILY IN THE MORNING ON AN EMPTY STOMACH for 30 days Active take 1 capsule by mo uth once daily before breakfast Levothyroxine Sodium 88 MCG Oral Capsule TAKE 1 CAPSULE BY MOUTH EVERY MORNING BEFORE BREAKFAST ON EMPTY STOMACH Quantity: 0 Refills: 0 Ordered: 09-Jan-2021 DO Active losartan potassium 50 mg oral tablet (20 sources) Angiotensin 2 Receptor Kimmie Start: 01-18-2024 End: 01-17-2025 take 1 tablet by mouth once daily losartan (Cozaar) 50 mg tablet Indications: Accelerated hypertension Take 1 tablet (50 mg) by mouth once daily. 90 tablet 3 01/18/2024 01/17/2025 Active Start: 12-22-2023 Losartan Activ e MG PO December 22, 2023 12:00am Start: 08-05-2023 take 25 mg by mouth once daily Losartan Active 25 MG PO Daily August 05, 2023 10:50am Start: 05-18-2023 End: 01-18-2024 take 1 tablet by mouth once daily losartan (Cozaar) 25 mg tablet Indications: Accelerated hypertension Take 1 tablet (25 mg) by mouth once daily. 90 tablet 3 05/18/2023 01/18/2024 Discontinued (Dose adjustment) Start: 01-27-2023 End: 08-05-2023 take 50 mg by mouth once daily Losartan Discontinued 5 0 MG PO Daily January 27, 2023 12:00am August 05, 2023 10:51am Start: 01-15-2022 take 1 tablet by summer [...] oral tablet (20 sources) beta-Adrenergic Kimmie Start: 07-06-2023 End: 01-18-2024 metoprolol tartrate (Lopressor) 50 mg tablet Indications: Accelerated hypertension Take one tablet twice daily 180 tablet 3 07/06/2023 01/18/2024 Discontinued (Dose adjustment) Start: 03-10-2023 End: 03-09-2024 take 0.5 tablet [...] day Active nitroglycerin 0.4 mg sublingual tablet (7 sources) Nitrate Vasodilator Start: 01-28-2023 Nitroglycerin Active 0.4 MG SUBLINGUAL Q5M 25 January 28, 2023 12:00am do not exceed 3 doses per episode spironolactone 25 mg oral tablet (20 sources) Aldosterone Antagonist Start: 03-12-2017 End: 01-14-2024 take 25 mg by mouth once daily Spironolactone Active 25 MG PO Daily March 12, 2017 1:00am Start: 03-12-2017 take 12.5 mg by mout h once daily Spironolactone Active 12.5 MG PO Daily March 12, 2017 1:00am Completed/Discontinued Medications Medication Drug Class(es) Dates Sig (Normalized) Sig (Original) Calcium (10 sources) Phosphate Binder, Calcium Calcium 600 + D TABS TAKE 1 TABLET DAILY. Quantity: 0 Refills: 0 Ordered: 09-Jan-2021 DO Active cephalexin 500 mg oral capsule (6 sources) Cephalosporin Antibacterial Start: 03-12-2017 End: 01-27-2023 take 1 capsule by mouth three times daily Cephalexin (Keflex) 500 mg capsule Discontinued 500 MG PO Three times daily March 12, 2017 1:00am January 27, 2023 8:01am nebivolol 10 mg oral tablet (6 sources) Start: 03-12-2017 End: 01-27-2023 take 1 [...] 03-Nov-2021 Active valsartan 320 mg oral tablet (6 sources) Angiotensin 2 Receptor Kimmie Start: 03-12-2017 [...] Episodic Coronary atherosclerosis and other heart disease (8 sources) Coronary arteriosclerosis; Translations: [Atherosclerotic heart disease of [place] coronary artery without angina pectoris] Onset: 4 Chronic Deficiency and other anemia (8 sources) Anemia of renal disease; Translations: [Anemia in chronic kidney disease] Chronic Disorders of lipid metabolism (20 sources) Hyperlipidemia; Translations: [Other and unspecified hyperlipidemia] Onset: 3 Chronic Essential hypertension (20 sources) Malignant hypertension; Translations: [Malignant essential hypertension] Onset: 2 03-12-2017 Chronic Fluid and electrolyte disorders (9 sources) Hypo-osmolality and hyponatremia; Translations: [Hyponatremia] Onset: 2 Resolved: 2 Episodic Fracture of lower limb (5 sources) Closed fracture of foot; Translations: [Unspecified fracture of left foot, initial encounter for closed fracture] Episodic Genitourinary symptoms and ill-defined conditions (10 sources) Genitourinary symptoms; Translations: [Unspecified symptoms and signs involving the genitourinary system] Episodic Hypertension with complications and secondary hypertension (20 sources) Hypertensive renal disease; Translations: [Hypertensive chronic kidney disease with stage 1 through stage 4 chronic kidney disease, or unspecified chronic kidney disease] Onset: 2 Resolved: 2 Chronic Other circulatory disease (5 sources) Elevated blood-pressure [...] 2 Resolved: 2 Chronic Other endocrine disorders (10 sources) Hypoparathyroidism; Translations: [Hypoparathyroidism, unspecified] 08-05-2023 Chronic Other endocrine disorders (4 sources) Hypoparathyroidism, unspecified; Translations: [Hypoparathyroidism] Onset: 2 Resolved: 2 Chronic Other injuries and conditions due to external causes (5 sources) History of fall; Translations: [History of falling] Episodic Other screening for suspected conditions (not mental disorders or infectious disease) (10 sources) Raised cardiac enzyme or marker; Translations: [Other specified abnormal findings of blood chemistry] Onset: 3 01-27-2023 Episodic Peripheral and visceral atherosclerosis (13 sources) Renal artery stenosis; Translations: [Atherosclerosis of renal artery] Onset: 3 12-16-2022 Chronic Residual codes; unclassified (17 sources) Body mass index 20-24 - normal; Translations: [Body Mass Index between 19-24, adult] Onset: 3 Resolved: 4 03-10-2023 Episodic Residual codes; unclassified (5 sources) Immunization refused ; Translations: [Immunization not carried out because of patient refusal] Episodic Residual codes; unclassified (2 sources) Body mass index (BMI) 23.0-23.9, adult; Translations: [Body mass index (BMI) 23.0-23.9, adult] Onset: 4 Episodic Screening and history of mental health and substance abuse codes (16 sources) Ex-smoker; Translations: [Personal history of tobacco use] Onset: 3 12-16-2022 Episodic Comment on above: quit 1966; Spondylosis; intervertebral disc disorders; other back problems (8 sources) Backache with radiation; Translations: [Dorsalgia, unspecified] Onset: 3 01-27-2023 Episodic Sprains and strains (5 sources) Strain of muscle of left upper arm; Translations: [Strain of other muscles, fascia and tendons at shoulder and upper arm level, left arm, initial encounter] Episodic Thyroid disorders (20 sources) Hypothyroidism; Translations: [Unspecified acquired hypothyroidism] Onset: 4 Chronic Past or Other Problems Problem Classification Problem Date Documented Da te Episodic/Chronic Acute myocardial infarction (8 sources) Myocardial infarction; Translations: [Non-ST elevation (NSTEMI) myocardial infarction] Onset: 01-28-2023 Resolved: 05-18-2023 01-28-2023 Chronic Nonspecific chest pain (8 sources) Chest pain; Translations: [Chest pain, unspecified] Onset: 03-10-2023 01-27-2023 Episodic Residual codes; unclassified (2 sources) Body mass index (BMI) 22.0-22.9, adult; Translations: [Body mass index (BMI) 22.0-22.9, adult] Onset: 03-10-2023 Episodic Unclassified (3 sources) Onset: 03-10-2023 Resolved: 01-18-2024 03-10-2023 Results Test Name Value Interpretation Reference Range Facility Automated epithelial cells c ount in urine sediment (number/area)on 07-27-2023 Epithelial cells Auto (Urine sed) [#/Area] RARE #/LPF NONE/RARE [facility] Automated leukocytes count i n urine sediment (number/area)on 07-27-2023 WBC Auto (Urine sed) [#/Area] NONE SEEN #/HPF 0-2 [facility] Automated urine specific gra vity by refractometryon 07-27-2023 Specific gravity Refractometry automated (U) [Rel density] 1.015 1.005-1.02 5 [facility] Bilirubin Auto test strip (U ) [Mass/Vol]on 07-27-2023 Bilirubin (U) [Mass/Vol] Negative NEGATIVE [facility] Casts typing in urine sedime nt by light microscopyon 07-27-2023 Casts LM Nom (Urine sed) NONE SEEN #/LPF NONE SEEN [facility] Color Auto (U)on 07-27-2023 Color (U) LT. YELLOW YELLOW [facility] Erythrocyte distribution wid th Auto (RBC) [Ratio]on 07-27-2023 Erythrocyte distribution width (RBC) [Ratio] 12.6 % 11.0-15.0 [facility] Estimated glomerular filtrat ion rate (GFR) non- Americanon 07-27-2023 GFR/1.73 sq M.predicted among non-blacks MDRD (S/P/Bld) [Vol rate/Area] 46 mL/min/{1.73_m2} >=60 [facility] Hematocrit Auto (Bld) [Volum e fraction]on 07-27-2023 Hematocrit (Bld) [Volume fraction] 39.4 % 36.0-48.0 [facility] Hemoglobin [Mass/volume] in Bloodon 07-27-2023 Hemoglobin (Bld) [Mass/Vol] 13.5 g/dL 12.0-16.0 [facility] Ketones Auto test strip (U) [Mass/Vol]on 07-27-2023 Ketones (U) [Mass/Vol] Negative NEGATIVE [facility] Laboratory - Chemistry and C hemistry - challengeon 07-27-2023 Albumin [Mass/Vol] 3.5 g/dL 3.4-5.0 [facility] Calcium [Mass/Vol] 9.3 mg/dL 8.5-10.1 [facility] Chloride [Moles/Vol] 96 mmol/L 98-107 [facility] CO2 [Moles/Vol] 28.4 mmol/L 21.0-32.0 [facility] Creatinine [Mass/Vol] 1.12 mg/dL 0.55-1.02 [facility] GFR/1.73 sq M.predicted MDRD (S/P/Bld) [Vol rate/Area] 56 mL/min/{1.73_m2} >=60 [facility] Glucose [Mass/Vol] 95 mg/dL 74-106 [facility] Magnesium [Mass/Vol] 2.0 mg/dL 1.8-2.4 [facility] Potassium [Moles/Vol] 4.1 mmol/L 3.5-5.1 [facility] Sodium [Moles/Vol] 131 mmol/L 136-145 [facility] Urate [Mass/Vol] 3.4 mg/dL 2.6-6.0 [facility] Urea nitrogen [Mass/Vol] 19.0 mg/dL 7.0-18.0 [facility] Urea nitrogen/Creatinine [Mass ratio] 17.0 mg/mg [facility] Laboratory - Urinalysison Protein (U) [Mass/Vol] 9.6 mg/dL <=11.9 [facility] Leukocytes [#/volume] correc chacho for nucleated erythrocytes in Blood by Automated counon 07-27-2023 WBC corrected for nucl RBC Auto (Bld) [#/Vol] 5.8 10 3/uL 4.0-11.0 [facility] MCH Auto (RBC) [Entitic mass ]on 07-27-2023 MCH (RBC) [Entitic mass] 29.9 pg 26.7-34.0 [facility] MCHC Auto (RBC) [Mass/Vol]on 07-27-2023 MCHC (RBC) [Mass/Vol] 34.3 g/dL 29.9-35.2 [facility] MCV Auto (RBC) [Entitic vol] on 07-27-2023 MCV (RBC) [Entitic vol] 87.2 fL 81.0-99.0 [facility] Mucus LM Ql (Urine sed)on Mucus Ql (Urine sed) NONE SEEN NONE SEEN [facility] No Panel Informationon 07-26 Urine Random Creatinine 100.05 mg/dL 20.00-300. 00 [facility] 25-Hydroxy Vitamin D Total 61.8 ng/mL [facility] Comment on above: <20 ng/mL Vit D defi cient20-<30 ng/mL Vit D [id number] ng/mL Vit D sufficient>100 ng/mL Potential Toxicity Parathyroid Hormone (Intact) 16 pg/mL 15-65 [facility] Comment on above: Performed at: [facility] [place] [id number] Director: Lux Adorno PhD, Phone: [phone] Phosphorus Level 3.5 mg/dL 2.6-4.7 [facility] Platelet mean volume Auto (B ld) [Entitic vol]on 07-27-2023 Platelet mean volume (Bld) [Entitic vol] 9.1 fL 9.5-13.5 [facility] Platelets Auto (Bld) [#/Vol] on 07-27-2023 Platelets (Bld) [#/Vol] 209 10 3/uL 150-450 [facility] Protein Auto test strip (U) [Mass/Vol]on 07-27-2023 Protein (U) [Mass/Vol] Negative NEG/TRACE Fi [facility] RBC Auto (Bld) [#/Vol]on RBC (Bld) [#/Vol] 4.52 10 6/uL 4.20-5.40 [facility] Serum or plasma anion gap de terminationon 07-27-2023 Anion gap [Moles/Vol] 10.7 mmol/L [facility] Specific gravity Auto test s trip (U) [Rel density]on 07-27-2023 Specific gravity (U) [Rel density] CLEAR CLEAR [facility] Urine bacteria detection by automated methodon 07-27-2023 Bacteria Auto Ql (U) NONE SEEN #/HPF NONE SEEN [facility] Urine glucose measurement by test strip (mass/volume)on 07-27-2023 Glucose Test strip (U) [Mass/Vol] Negative NEGATIVE [facility] Urine hemoglobin detection b y automated test stripon 07-27-2023 Hemoglobin Auto test strip Ql (U) Negative NEGATIVE [facility] Urine nitrite detection by a utomated test stripon 07-27-2023 Nitrite Auto test strip Ql (U) SMALL NEGATIVE [facility] Nitrite Auto test strip Ql (U) Negative NEGATIVE [facility] Urine protein/creatinine rat ioon 07-27-2023 Protein/Creatinine (U) [Ratio] 0.10 [facility] Urine sediment crystal ident ification by light microscopyon 07-27-2023 Crystals LM Nom (Urine sed) None Seen #/HPF None Seen [facility] Urine sediment leukocyte cou nt by microscopy (number/high power field)on 07-27-2023 WBC LM.HPF (Urine sed) [#/Area] 2-5 #/HPF NONE SEEN [facility] Urobilinogen Auto test strip (U) [Mass/Vol]on 07-27-2023 Urobilinogen Qn (U) 1.0 {Carlos'U}/dL 0.2-1.0 [facility] pH Auto test strip (U)on pH (U) 7.0 [pH] 5.0-9.0 [facility] Basic Metabolic Panelon 110 Anion gap [Moles/Vol] 12.5 mmol/L Normal 6.0-15.0 [facility] Comment on above: Performed By: #### B MP #### [address] Calcium [Mass/Vol] 9.5 mg/dL Normal 8.6-10.3 [facility] Comment on above: Performed By: #### B MP #### [facility] [address] [place] [address] [place] Chloride [Moles/Vol] 96 mmol/L Low 98-107 [facility] Comment on above: Performed By: #### B MP #### [facility] [address] CO2 [Moles/Vol] 25.5 mmol/L Normal 21.0-31.0 [facility] Comment on above: Performed By: #### B MP #### [facility] [address] [place] [address] [place] Creatinine [Mass/Vol] 1.18 mg/dL Normal 0.60-1.20 [facility] Comment on above: Performed By: #### B MP #### [facility] [address] [place] [address] [place] Creatinine Clr Calc Pharmacy 31.19 Normal [facility] Comment on above: Result Comment: PERF ORMED BY: [place] [address] PATHOLOGIST SHOCK ABSORBER INSTALLER LI LEWIS M.D. Performed By: #### B MP #### [address] GFR/1.73 sq M.predicted MDRD (S/P/Bld) [Vol rate/Area] 45.829 mL/min/{1.73_m2} Normal [facility] Comment on above: Performed By: #### B MP #### [facility] [address] Glucose [Mass/Vol] 82 mg/dL Normal 70-100 [facility] Comment on above: Result Comment: [place] Glucose Reference Range is dependent on time and content of last meal. Glucose of more than 200 mg/dL in a nonstressed, ambulatory subject supports the diagnosis of Diabetes Mellitus. ADA recommended reference range Performed By: #### B MP #### [facility] [address] [place] [address] [place] Potassium [Moles/Vol] 4.0 mmol/L Normal 3.5-5.1 [facility] Comment on above: Performed By: #### B MP #### [facility] [address] [place] [address] [place] Sodium [Moles/Vol] 130 mmol/L Low 136-145 [facility] Comment on above: Performed By: #### B MP #### [facility] [address] [place] [address] [place] Urea nitrogen [Mass/Vol] 24 mg/dL Normal 7-25 [facility] Comment on above: Performed By: #### B MP #### [facility] [address] Calcium [Mass/volume] in Ser um or PlasmaOrdered By: Elsa Amin on 01-29-2023 Calcium [Mass/Vol] 9.5 mg/dL 8.6-10.3 [facility] Carbon dioxide, total [Moles /volume] in Serum or PlasmaOrdered By: Elsa Amin on 01-29-2023 CO2 [Moles/Vol] 25.5 mmol/L 21.0-31.0 [facility] Chloride [Moles/volume] in S lorraine or PlasmaOrdered By: Elsa Amin on 01-29-2023 Chloride [Moles/Vol] 96 mmol/L 98-107 [facility] Creatinine [Mass/volume] in Serum or PlasmaOrdered By: Elsa Amin on 01-29-2023 Creatinine [Mass/Vol] 1.18 mg/dL 0.60-1.20 [facility] Glucose [Mass/volume] in Ser um or PlasmaOrdered By: Elsa Amin on 01-29-2023 Glucose [Mass/Vol] 82 mg/dL 70-100 [facility] Comment on above: ADA recommended refe rence rangeRandom Glucose Reference Range is dependent on time and content of last meal. Glucose of more than 200 mg/dL in a nonstressed, ambulatory subject supports the diagnosis of Diabetes Mellitus. No Panel InformationOrdered By: Elsa Amin on 01-29-2023 Estimated GFR (CKD-EPI) 45.829 mL/Min [facility] Creatinine Clearance (Chem 31.19 [facility] Potassium [Moles/volume] in Serum or PlasmaOrdered By: Elsa Amin on 01-29-2023 Potassium [Moles/Vol] 4.0 mmol/L 3.5-5.1 [facility] Serum or plasma anion gap de terminationOrdered By: Elsa Amin on 01-29-2023 Anion gap [Moles/Vol] 12.5 mmol/L 6.0-15.0 [facility] Sodium [Moles/volume] in Ser um or PlasmaOrdered By: Elsa Amin on 01-29-2023 Sodium [Moles/Vol] 130 mmol/L 136-145 [facility] Urea nitrogen [Mass/volume] in Serum or PlasmaOrdered By: Elsa Amin on 01-29-2023 Urea nitrogen [Mass/Vol] 24 mg/dL 7-25 [facility] Activated partial thrombopla stin time (aPTT) in platelet poor plasma by coagulation aOrdered By: Willie Lyon on 01-27-2023 aPTT Coag (PPP) [Time] 31.7 s 25.1-36.5 [facility] Comment on above: A hematocrit value g reater than 55% may lead to inaccurate results in coagulation testing. Patients having hematocrit values >55% require a special collection tube for coagulation studies. Please contact the laboratory at [phone] for redraw instructions. Alanine aminotransferase [En zymatic activity/volume] in Serum or PlasmaOrdered By: Willie Lyon on 01-27-2023 ALT [Catalytic activity/Vol] 9 U/L 7-52 [facility] Albumin [Mass/volume] in Ser um or Plasma by Bromocresol green (BCG) dye binding methoOrdered By: Willie Lyon on 01-27-2023 Albumin BCG dye [Mass/Vol] 4.0 g/dL 3.5-5.7 [facility] Alkaline phosphatase [Enzyma tic activity/volume] in Serum or PlasmaOrdered By: Willie Lyon on 01-27-2023 ALP [Catalytic activity/Vol] 46 U/L 34-104 [facility] Aspartate aminotransferase [ Enzymatic activity/volume] in Serum or PlasmaOrdered By: Willie Lyon on 01-27-2023 AST [Catalytic activity/Vol] 19 U/L 13-39 [facility] B-Type Natriuretic Peptideon 01-27-2023 Natriuretic peptide B (Bld) [Mass/Vol] 359.0 pg/mL High 5-100 [facility] Comment on above: Result Comment: PERF ORMED BY: [facility] [address] [place] [address] PATHOLOGIST SHOCK [employer]ORBER INSTALLER LI LEWIS M.D. Performed By: #### P TT, HS TROP, PT, CK, BNP #### [facility] [address] Basophils Auto (Bld) [#/Vol] Ordered By: Willie Lyon on 01-27-2023 Basophils (Bld) [#/Vol] 0.1 10*3/uL 0.0-0.2 [facility] Basophils/100 WBC Auto (Bld) Ordered By: Willie Lyon on 01-27-2023 Basophils/100 WBC (Bld) 1.0 % . [facility] Bilirubin.total [Mass/volume ] in Serum or PlasmaOrdered By: Willie Lyon on 01-27-2023 Bilirubin [Mass/Vol] 0.7 mg/dL 0.3-1.0 [facility] Calcium [Mass/volume] in Ser um or PlasmaOrdered By: Willie Lyon on 01-27-2023 Calcium [Mass/Vol] 9.8 mg/dL 8.6-10.3 [facility] Carbon dioxide, total [Moles /volume] in Serum or PlasmaOrdered By: Willie Lyon on 01-27-2023 CO2 [Moles/Vol] 27.4 mmol/L 21.0-31.0 [facility] Chloride [Moles/volume] in S lorraine or PlasmaOrdered By: Willie Lyon on 01-27-2023 Chloride [Moles/Vol] 98 mmol/L 98-107 [facility] Complete Blood Count Auto Di ffon 01-27-2023 Basophils (Bld) [#/Vol] 0.1 10*3/uL Normal 0.0-0.2 [facility] Comment on above: Result Comment: PERF ORMED BY: [place] [address] PATHOLOGIST SHOCK [employer]ORBER INSTALLER LI LEWIS M.D. Performed By: #### P TT, HS TROP, PT, CK, BNP #### [address] Basophils/100 WBC (Bld) 1.0 % Normal . [facility] Comment on above: Performed By: #### P TT, HS TROP, PT, CK, BNP #### [address] Eosinophils (Bld) [#/Vol] 0.1 10*3/uL Normal 0.0-0.45 [facility] Comment on above: Performed By: #### P TT, HS TROP, PT, CK, BNP #### [address] Eosinophils/100 WBC (Bld) 1.7 % Normal . [facility] Comment on above: Performed By: #### P TT, HS TROP, PT, CK, BNP #### [address] Erythrocyte distribution width (RBC) [Ratio] 13.7 % Normal 11.9-15.3 [facility] Comment on above: Performed By: #### P TT, HS TROP, PT, CK, BNP #### [address] Hematocrit (Bld) [Volume fraction] 41.4 % Normal 34.0-46.4 [facility] Comment on above: Performed By: #### P TT, HS TROP, PT, CK, BNP #### [address] Hemoglobin (Bld) [Mass/Vol] 14.0 g/dL Normal 11.8-15.4 [facility] Comment on above: Performed By: #### P TT, HS TROP, PT, CK, BNP #### [address] Lymphocytes (Bld) [#/Vol] 1.6 10*3/uL Normal 1.00-4.8 [facility] Comment on above: Performed By: #### P TT, HS TROP, PT, CK, BNP #### [facility] [address] Lymphocytes/100 WBC (Bld) 23.7 % Normal . [facility] Comment on above: Performed By: #### P TT, HS TROP, PT, CK, BNP #### [address] MCH (RBC) [Entitic mass] 29.7 pg Normal 24.7-34.3 [facility] Comment on above: Performed By: #### P TT, HS TROP, PT, CK, BNP #### [address] MCV (RBC) [Entitic vol] 87.5 fL Normal 80-100 [facility] Comment on above: Performed By: #### P TT, HS TROP, PT, CK, BNP #### [address] Mean Corpuscular HGB Conc 33.9 g/dL Normal 32.0-35.0 [facility] Comment on above: Performed By: #### P TT, HS TROP, PT, CK, BNP #### [address] Monocytes (Bld) [#/Vol] 0.5 10*3/uL Normal 0.0-0.8 [facility] Comment on above: Performed By: #### P TT, HS TROP, PT, CK, BNP #### [address] Monocytes/100 WBC (Bld) 18.32 % Normal 0.00-20.00 [facility] Comment on above: Performed By: #### P TT, HS TROP, PT, CK, BNP #### [address] Monocytes/100 WBC (Bld) 7.4 % Normal . [facility] Comment on above: Performed By: #### P TT, HS TROP, PT, CK, BNP #### [address] Neutrophils (Bld) [#/Vol] 4.6 10*3/uL Normal 1.8-7.7 [facility] Comment on above: Performed By: #### P TT, HS TROP, PT, CK, BNP #### [address] Neutrophils/100 WBC (Bld) 66.2 % Normal . [facility] Comment on above: Performed By: #### P TT, HS TROP, PT, CK, BNP #### [address] NRBC% 0.1 /100{WBC} Normal 0-0.5 [facility] Comment on above: Performed By: #### P TT, HS TROP, PT, CK, BNP #### [address] Platelet mean volume (Bld) [Entitic vol] 7.7 fL Normal 6.3-10.7 [facility] Comment on above: Performed By: #### P TT, HS TROP, PT, CK, BNP #### [address] Platelets (Bld) [#/Vol] 281 10*3/uL Normal 150-450 [facility] Comment on above: Performed By: #### P TT, HS TROP, PT, CK, BNP #### [address] RBC (Bld) [#/Vol] 4.73 10*6/uL Normal 3.60-5.00 [facility] Comment on above: Performed By: #### P TT, HS TROP, PT, CK, BNP #### [address] WBC (Bld) [#/Vol] 6.9 10*3/uL Normal 3.8-11.6 [facility] Comment on above: Performed By: #### P TT, HS TROP, PT, CK, BNP #### [facility] [address] [place] [address] Comprehensive Metabolic Pane clarita 01-27-2023 Albumin [Mass/Vol] 4.0 g/dL Normal 3.5-5.7 [facility] Comment on above: Performed By: #### P TT, HS TROP, PT, CK, BNP #### [address] Albumin/Globulin [Mass ratio] 1.4 {ratio} Normal [facility] Comment on above: Performed By: #### P TT, HS TROP, PT, CK, BNP #### [address] ALP [Catalytic activity/Vol] 46 U/L Normal 34-104 [facility] Comment on above: Performed By: #### P TT, HS TROP, PT, CK, BNP #### [address] ALT [Catalytic activity/Vol] 9 U/L Normal 7-52 [facility] Comment on above: Performed By: #### P TT, HS TROP, PT, CK, BNP #### [address] Anion gap [Moles/Vol] 11.2 mmol/L Normal 6.0-15.0 [facility] Comment on above: Performed By: #### P TT, HS TROP, PT, CK, BNP #### [address] AST [Catalytic activity/Vol] 19 U/L Normal 13-39 [facility] Comment on above: Performed By: #### P TT, HS TROP, PT, CK, BNP #### [address] Bilirubin [Mass/Vol] 0.7 mg/dL Normal 0.3-1.0 [facility] Comment on above: Performed By: #### P TT, HS TROP, PT, CK, BNP #### [address] [place] [address] [place] Calcium [Mass/Vol] 9.8 mg/dL Normal 8.6-10.3 [facility] Comment on above: Performed By: #### P TT, HS TROP, PT, CK, BNP #### [facility] [address] Chloride [Moles/Vol] 98 mmol/L Normal 98-107 [facility] Comment on above: Performed By: #### P TT, HS TROP, PT, CK, BNP #### [facility] [address] CO2 [Moles/Vol] 27.4 mmol/L Normal 21.0-31.0 [facility] Comment on above: Performed By: #### P TT, HS TROP, PT, CK, BNP #### [address] Creatinine [Mass/Vol] 1.45 mg/dL High 0.60-1.20 [facility] Comment on above: Performed By: #### P TT, HS TROP, PT, CK, BNP #### [facility] [address] [place] [address] [place] Creatinine Clr Calc Pharmacy 25.39 [facility] Comment on above: Result Comment: PERF ORMED BY: [place] [address] PATHOLOGIST SHOCK ABSORBER INSTALLER LI LEWIS M.D. Performed By: #### P TT, HS TROP, PT, CK, BNP #### [facility] [address] [place] [address] [place] GFR/1.73 sq M.predicted MDRD (S/P/Bld) [Vol rate/Area] 35.790 mL/min/{1.73_m2} [facility] Comment on above: Performed By: #### P TT, HS TROP, PT, CK, BNP #### [facility] [address] [place] [address] Globulin (S) [Mass/Vol] 2.9 g/dL [facility] Comment on above: Performed By: #### P TT, HS TROP, PT, CK, BNP #### [facility] [address] [place] [address] [place] Glucose [Mass/Vol] 105 mg/dL High 70-100 [facility] Comment on above: Result Comment: [place] Glucose Reference Range is dependent on time and content of last meal. Glucose of more than 200 mg/dL in a nonstressed, ambulatory subject supports the diagnosis of Diabetes Mellitus. ADA recommended reference range Performed By: #### P TT, HS TROP, PT, CK, BNP #### [facility] [address] Potassium [Moles/Vol] 4.6 mmol/L Normal 3.5-5.1 [facility] Comment on above: Performed By: #### P TT, HS TROP, PT, CK, BNP #### [facility] [address] Protein [Mass/Vol] 6.9 g/dL Normal 6.4-8.9 [facility] Comment on above: Performed By: #### P TT, HS TROP, PT, CK, BNP #### [facility] [address] [place] [address] [place] Sodium [Moles/Vol] 132 mmol/L Low 136-145 [facility] Comment on above: Performed By: #### P TT, HS TROP, PT, CK, BNP #### [facility] [address] [place] [address] [place] Urea nitrogen [Mass/Vol] 30 mg/dL High 7-25 [facility] Comment on above: Performed By: #### P TT, HS TROP, PT, CK, BNP #### [facility] [address] [place] [id number] [place] Creatine Kinaseon 01-27-2023 CK [Catalytic activity/Vol] 52 U/L Normal 30-223 [facility] Comment on above: Performed By: #### P TT, HS TROP, PT, CK, BNP #### [facility] [address] [place] [address] [place] Creatine kinase [Enzymatic a ctivity/volume] in Serum or PlasmaOrdered By: Willie Lyon on 01-27-2023 CK [Catalytic activity/Vol] 52 U/L 30-223 [facility] Creatinine [Mass/volume] in Serum or PlasmaOrdered By: Willie Lyon on 01-27-2023 Creatinine [Mass/Vol] 1.45 mg/dL 0.60-1.20 [facility] ECG 12 lead ECGon 01-27-2023 ECG 12 lead ECG [facility] [place] [address] Electrocardiograph Report Signed Patient: Janelle Burt MR#: [id number] : 1940 Acct:[id number] Age/Sex: 82 / F ADM Date: 01/27/23 Loc: Room: [address] [place] [address] Type: ADM INOo Attending Dr: Elsa Amin [...] voltage QRS Confirmed by Willie LYON DO ([id number]) on 01/27/2023 3:01:31 PM Referred By: Electronically Signed By:Willie LYON DO Transcribed By: MUS Signed By Willie Lyon DO 1 03/29/22 1501 Normal [facility] ECG 12 lead ECG [facility] [place] [id number] Electrocardiograph Report Signed Patient: Janelle Burt MR#: [id number] : 1940 Acct:[id number] Age/Sex: 82 / F ADM Date: 01/27/23 Loc: Room: [address] [place] [address] Type: ADM INOo Attending Dr: Elsa Amin [...] axis deviation Confirmed by Willie LYON DO ([id number]) on 01/27/2023 11:37:45 AM Referred By: Electronically Signed By:Willie LYON DO Transcribed By: MUS Signed By Willie Lyon DO 03/29/22 1137 Normal [facility] Eosinophils Auto (Bld) [#/Vo l]Ordered By: Willie Lyon on 01-27-2023 Eosinophils (Bld) [#/Vol] 0.1 10*3/uL 0.0-0.45 [facility] Eosinophils/100 WBC Auto (Bl d)Ordered By: Willie Lyon on 01-27-2023 Eosinophils/100 WBC (Bld) 1.7 % . [facility] Erythrocyte distribution wid th Auto (RBC) [Ratio]Ordered By: Willie Lyon on 01-27-2023 Erythrocyte distribution width (RBC) [Ratio] 13.7 % 11.9-15.3 [facility] Globulin Calc (S) [Mass/Vol] Ordered By: Willie Lyon on 01-27-2023 Globulin (S) [Mass/Vol] 2.9 g/dL [facility] Glucose [Mass/volume] in Ser um or PlasmaOrdered By: Willie Lyon on 01-27-2023 Glucose [Mass/Vol] 105 mg/dL 70-100 [facility] Comment on above: ADA recommended refe rence rangeRandom Glucose Reference Range is dependent on time and content of last meal. Glucose of more than 200 mg/dL in a nonstressed, ambulatory subject supports the diagnosis of Diabetes Mellitus. Hematocrit Auto (Bld) [Volum e fraction]Ordered By: Willie Lyon on 01-27-2023 Hematocrit (Bld) [Volume fraction] 41.4 % 34.0-46.4 [facility] Hemoglobin [Mass/volume] in BloodOrdered By: Willie Lyon on 01-27-2023 Hemoglobin (Bld) [Mass/Vol] 14.0 g/dL 11.8-15.4 [facility] INR in Platelet poor plasma by Coagulation assayOrdered By: Willie Lyon on 01-27-2023 INR Coag (PPP) [Relative time] 1.0 {INR} [facility] Comment on above: INR Therapeutic Rang e [...] RBC Auto (Bld) [#/Vol] 6.9 10*3/uL 3.8-11.6 [facility] Lymphocytes Auto (Bld) [#/Vo l]Ordered By: Willie Lyon on 01-27-2023 Lymphocytes (Bld) [#/Vol] 1.6 10*3/uL 1.00-4.8 [facility] Lymphocytes/100 WBC Auto (Bl d)Ordered By: Willie Lyon on 01-27-2023 Lymphocytes/100 WBC (Bld) 23.7 % . [facility] MCH Auto (RBC) [Entitic mass ]Ordered By: Willie Lyon on 01-27-2023 MCH (RBC) [Entitic mass] 29.7 pg 24.7-34.3 [facility] MCHC Auto (RBC) [Mass/Vol]Or dered By: Willie Lyon on 01-27-2023 MCHC (RBC) [Mass/Vol] 33.9 g/dL 32.0-35.0 [facility] MCV Auto (RBC) [Entitic vol] Ordered By: Willie Lyon on 01-27-2023 MCV (RBC) [Entitic vol] 87.5 fL 80-100 [facility] Magnesiumon 01-27-2023 Magnesium [Mass/Vol] 2.0 mg/dL Normal 1.9-2.7 [facility] Comment on above: Performed By: #### P TT, HS TROP, PT, CK, BNP #### [facility] [address] Magnesium [Mass/volume] in S lorraine or PlasmaOrdered By: Willie Lyon on 01-27-2023 Magnesium [Mass/Vol] 2.0 mg/dL 1.9-2.7 [facility] Monocyte distribution width [Entitic volume] in Blood by AutomatedOrdered By: Willie Lyon on 01-27-2023 Monocyte distribution width Auto (Bld) [Entitic vol] 18.32 % 0.00-20.00 [facility] Monocytes Auto (Bld) [#/Vol] Ordered By: Willie Lyon on 01-27-2023 Monocytes (Bld) [#/Vol] 0.5 10*3/uL 0.0-0.8 [facility] Monocytes/100 WBC Auto (Bld) Ordered By: Willie Lyon on 01-27-2023 Monocytes/100 WBC (Bld) 7.4 % . [facility] Natriuretic peptide B [Mass/ Vol]Ordered By: Willie Lyon on 01-27-2023 Natriuretic peptide B (Bld) [Mass/Vol] 359.0 pg/mL 5-100 [facility] Neutrophils Auto (Bld) [#/Vo l]Ordered By: Willie Lyon on 01-27-2023 Neutrophils (Bld) [#/Vol] 4.6 10*3/uL 1.8-7.7 [facility] Neutrophils/100 WBC Auto (Bl d)Ordered By: Willie Lyon on 01-27-2023 Neutrophils/100 WBC (Bld) 66.2 % . [facility] No Panel InformationOrdered By: Willie Lyon on 01-27-2023 Estimated GFR (CKD-EPI) 35.790 mL/Min [facility] Creatinine Clearance (Chem 25.39 [facility] Nucleated erythrocytes [Pres ence] in Blood by Automated countOrdered By: Willie Lyon on 01-27-2023 Nucleated RBC Auto Ql (Bld) 0.1 /100{WBC} 0-0.5 [facility] Partial Thromboplastin Timeo n 01-27-2023 aPTT Coag (Bld) [Time] 31.7 s Normal 25.1-36.5 [facility] Comment on above: Result Comment: A he matocrit value greater than 55% may lead to inaccurate results in coagulation testing. Patients having hematocrit values >55% require a special collection tube for coagulation studies. Please contact the laboratory at [phone] for redraw instructions. PERFORMED BY: [address] [address] PATHOLOGIST SHOCK ABSORBER INSTALLER LI LEWIS M.D. Performed By: #### P TT, HS TROP, PT, CK, BNP #### [facility] [address] [place] [address] [facility] Platelet mean volume Auto (B ld) [Entitic vol]Ordered By: Willie Lyon on 01-27-2023 Platelet mean volume (Bld) [Entitic vol] 7.7 fL 6.3-10.7 [facility] Platelets Auto (Bld) [#/Vol] Ordered By: Willie Lyon on 01-27-2023 Platelets (Bld) [#/Vol] 281 10*3/uL 150-450 [facility] Potassium [Moles/volume] in Serum or PlasmaOrdered By: Willie Lyon on 01-27-2023 Potassium [Moles/Vol] 4.6 mmol/L 3.5-5.1 [facility] Protein [Mass/volume] in Ser um or PlasmaOrdered By: Willie Lyon on 01-27-2023 Protein [Mass/Vol] 6.9 g/dL 6.4-8.9 [facility] Prothrombin Time INRon 01-27 INR Coag (PPP) [Relative time] 1.0 {INR} Normal [facility] Comment on above: Result Comment: INR Therapeutic [...] TT, HS TROP, PT, CK, BNP #### [facility] [address] [place] [address] [facility] PT Coag (PPP) [Time] 12.2 s Normal 9.0-12.9 [facility] Comment on above: Result Comment: A he matocrit value greater than 55% may lead to inaccurate results in coagulation testing. Patients having hematocrit values >55% require a special collection tube for coagulation studies. Please contact the laboratory at [phone] for redraw instructions. Performed By: #### P TT, HS TROP, PT, CK, BNP #### [facility] [address] [place] [address] [facility] Prothrombin time (PT)Ordered By: Willie Lyon on 01-27-2023 PT Coag (PPP) [Time] 12.2 s 9.0-12.9 [facility] Comment on above: A hematocrit value g reater than 55% may lead to inaccurate results in coagulation testing. Patients having hematocrit values >55% require a special collection tube for coagulation studies. Please contact the laboratory at [phone] for redraw instructions. RBC Auto (Bld) [#/Vol]Ordere d By: Willie Lyon on 01-27-2023 RBC (Bld) [#/Vol] 4.73 10*6/uL 3.60-5.00 [facility] Serum or plasma albumin/glob ulin mass ratioOrdered By: Willie Lyon on 01-27-2023 Albumin/Globulin [Mass ratio] 1.4 {ratio} [facility] Serum or plasma anion gap de terminationOrdered By: Willie Lyon on 01-27-2023 Anion gap [Moles/Vol] 11.2 mmol/L 6.0-15.0 [facility] Sodium [Moles/volume] in Ser um or PlasmaOrdered By: Willie Lyon on 01-27-2023 Sodium [Moles/Vol] 132 mmol/L 136-145 [facility] Thyroid Stimulating Hormoneo n 01-27-2023 TSH Qn 0.18 m[IU]/L Low 0.45-5.33 [facility] Comment on above: Result Comment: PERF ORMED BY: [place] [address] PATHOLOGIST SHOCK [employer]ORBER INSTALLER LI LEWIS M.D. Performed By: #### P TT, HS TROP, PT, CK, BNP #### [address] Thyrotropin [Units/volume] i n Serum or PlasmaOrdered By: Willie Lyon on 01-27-2023 TSH Qn 0.18 m[IU]/L 0.45-5.33 [facility] Troponin I High Sensitivityo n 01-27-2023 Troponin I High Sensitivity 29.5 pg/mL High 0.0-15.0 [facility] Comment on above: Result Comment: PERF ORMED BY: [place] [address] PATHOLOGIST SHOCK [employer]ORBER INSTALLER LI LEWIS M.D. Performed By: #### P TT, HS TROP, PT, CK, BNP #### [address] Troponin I High Sensitivity 36.3 pg/mL High 0.0-15.0 [facility] Comment on above: Result Comment: PERF ORMED BY: [place] [address] PATHOLOGIST SHOCK ABSORBER INSTALLER LI LEWIS M.D. Performed By: #### H S TROP #### [address] Troponin I High Sensitivity 47.3 pg/mL High 0.0-15.0 [facility] Comment on above: Result Comment: PERF ORMED BY: [place] [address] PATHOLOGIST SHOCK [employer]ORBER INSTALLER LI LEWIS M.D. Performed By: #### P TT, HS TROP, PT, CK, BNP #### [address] Troponin I.cardiac [Mass/vol ume] in Serum or Plasma by Detection limit <= 0.01 ng/Ordered By: Elsa Amin on 01-27-2023 Troponin I.cardiac DL <= 0.01 ng/mL [Mass/Vol] 29.5 pg/mL 0.0-15.0 [facility] Troponin I.cardiac [Mass/vol ume] in Serum or Plasma by Detection limit <= 0.01 ng/Ordered By: Willie Lyon on 01-27-2023 Troponin I.cardiac DL <= 0.01 ng/mL [Mass/Vol] 47.3 pg/mL 0.0-15.0 [facility] Urea nitrogen [Mass/volume] in Serum or PlasmaOrdered By: Willie Lyon on 01-27-2023 Urea nitrogen [Mass/Vol] 30 mg/dL 7-25 [facility] WBC Auto (Bld) [#/Vol]Ordere d By: Willie Lyon on 01-27-2023 WBC (Bld) [#/Vol] 6.9 10*3/uL 3.8-11.6 [facility] XR chest 2V*on 01-27-2023 XR chest 2V* [facility] [place] [address] XRay Report Signed Patient: Janelle Burt MR#: [id number] : 1940 Acct:[id number] Age/Sex: 82 / F ADM Date: 01/27/23 Loc: ER Room: Type: [facility] ER Attending Dr: Copies to: Willie Lyon [...] Avinash Nicole M.D.01/27/2023 10:10 AM Dictation Location: [place] [id number] Transcribed By: [facility] 01/27/23 1010 Dictated By: Avinash Nicole II, MD 01/27/23 1008 Signed By: 01/27/23 1010 Normal [facility] PTH INTACTon 06-04-2022 PTH, Intact 10 pg/mL Critically low 15-65 [facility] Comment on above: Performed By: #### P THINT #### [facility] [address] [place] [address] Dr. Dario Gil FREE T4on 06-03-2022 Free T4 [Mass/Vol] 1.03 ng/dL Normal 0.76-1.46 [facility] Comment on above: Performed By: #### H H #### [facility] [address] [place] [address] Dr. Dario Gil HEMOGRAM AND PLATELon 2022 Hematocrit (Bld) [Volume fraction] 39.9 % Normal 36.0-48.0 [facility] Comment on above: Performed By: #### H H #### [facility] [address] [place] [address] Dr. Dario Gil Hemoglobin (Bld) [Mass/Vol] 13.9 g/dL Normal 12.0-16.0 [facility] Comment on above: Performed By: #### H H #### [facility] [address] [place] [address] Dr. Dario Gil MCH (RBC) [Entitic mass] 30.6 pg Normal 26.7-34.0 [facility] Comment on above: Performed By: #### H H #### [facility] [address] [place] [address] Dr. Dario Gil MCHC (RBC) [Mass/Vol] 34.8 g/dL Normal 29.9-35.2 [facility] Comment on above: Performed By: #### H H #### [facility] [address] [place] [address] Dr. Dario Gil MCV (RBC) [Entitic vol] 87.9 fL Normal 81.0-99.0 [facility] Comment on above: Performed By: #### H H #### [facility] [address] [place] [address] Dr. Dario Gil PLT 232 103/ul Normal 150-450 [facility] Comment on above: Performed By: #### H H #### [facility] [address] [place] [address] Dr. Dario Gil RBC 4.54 106/ul Normal 4.20-5.40 [facility] Comment on above: Performed By: #### H H #### [facility] [address] [place] [address] Dr. Dario Gil WBC 5.8 103/ul Normal 4.0-11.0 [facility] Comment on above: Performed By: #### H H #### [facility] [address] [place] [address] Dr. Dario Gil MAGNESIUMon 06-03-2022 Magnesium [Mass/Vol] 1.8 mg/dL Normal 1.8-2.4 [facility] Comment on above: Performed By: #### M Humble, URIC, RENAL #### [facility] [address] [place] [address] Dr. Dario Gil RENAL FUNCTION PANELon 06-03 Albumin [Mass/Vol] 4.0 g/dL Normal 3.4-5.0 [facility] Comment on above: Performed By: #### M G, URIC, RENAL #### [facility] [address] [place] [address] Dr. Dario Gil Calcium [Mass/Vol] 9.7 mg/dL Normal 8.5-10.1 [facility] Comment on above: Performed By: #### M G, URIC, RENAL #### [facility] [address] [place] [address] Dr. Dario Gil Chloride [Moles/Vol] 98 mmol/L Normal 98-107 [facility] Comment on above: Performed By: #### M G, URIC, RENAL #### [facility] [address] [place] [address] Dr. Dario Gil CO2 [Moles/Vol] 29.6 mmol/L Normal 21.0-32.0 [facility] Comment on above: Performed By: #### M G, URIC, RENAL #### [facility] [address] [place] [address] [address] Dario Gil Creatinine [Mass/Vol] 1.37 mg/dL Critically high 0.55-1.02 [facility] Comment on above: Performed By: #### M G, URIC, RENAL #### [facility] [address] [place] [address] Dr. Dario Gil EGFR-AF ALGERIAN 45 mL/min/1.73m2 Critically low >=60 [facility] Comment on above: Performed By: #### M Humble, URIC, RENAL #### [facility] [address] [place] [address] Dr. Dario Gil EGFR-NON AF ALGERIAN 37 mL/min/1.73m2 Critically low >=60 [facility] Comment on above: Performed By: #### M Humble, URIC, RENAL #### [facility] [address] [place] [address] Dr. Dario Gil Glucose [Mass/Vol] 99 mg/dL Normal 74-106 [facility] Comment on above: Performed By: #### M Humble, URIC, RENAL #### [facility] [address] [place] [address] Dr. Dario Gil Phosphate [Mass/Vol] 3.5 mg/dL Normal 2.6-4.7 [facility] Comment on above: Performed By: #### M G, URIC, RENAL #### [facility] [address] [place] [address] [address] Dario Gil Potassium [Moles/Vol] 4.5 mmol/L Normal 3.5-5.1 [facility] Comment on above: Performed By: #### M G, URIC, RENAL #### [facility] [address] [place] [address] [address] Dario Gil Sodium [Moles/Vol] 134 mmol/L Critically low 136-145 [facility] Comment on above: Performed By: #### M G, URIC, RENAL #### [facility] [address] [place] [address] Dr. Dario Gil Urea nitrogen [Mass/Vol] 26.0 mg/dL Critically high 7.0-18.0 [facility] Comment on above: Performed By: #### M G, URIC, RENAL #### [facility] [address] [place] [address] Dr. Dario Gil TSHon 06-03-2022 TSH 8.041 uIU/mL Critically high 0.358-3.74 0 [facility] Comment on above: Performed By: #### T SH #### [facility] [address] [place] [address] Dr. Dario Gil UA RANDOM W/MICROSCOPICon BACTERIA NONE SEEN Normal NONE SEEN [facility] Comment on above: Performed By: #### H H #### [facility] [address] [place] [address] Dr. Dario Gil Bilirubin Ql (U) Negative Normal NEGATIVE [facility] Comment on above: Performed By: #### H H #### [facility] [address] [place] [address] Dr. Dario Gil CAST NONE SEEN Normal NONE SEEN [facility] Comment on above: Performed By: #### H H #### [facility] [address] [place] [address] Dr. Dario Gil Clarity (U) CLEAR Normal CLEAR [facility] Comment on above: Performed By: #### H H #### [facility] [address] [place] [address] Dr. Dario Gil Color (U) LT. YELLOW Normal YELLOW [facility] Comment on above: Performed By: #### H H #### [facility] [address] [place] [address] Dr. Dario Gil Crystals LM Nom (Urine sed) NONE SEEN Normal NONE SEEN [facility] Comment on above: Performed By: #### H H #### [facility] [address] [place] [address] Dr. Dario Gil Epithelial cells LM Ql (Urine sed) FEW Abnormal NONE SEEN /RARE [facility] Comment on above: Performed By: #### H H #### [facility] [address] [place] [address] Dr. Dario Gil Glucose Ql (U) Negative Normal NEGATIVE [facility] Comment on above: Performed By: #### H H #### [facility] [address] [place] [address] Dr. Dario Gil Hemoglobin Ql (U) Negative Normal NEGATIVE [facility] Comment on above: Performed By: #### H H #### [facility] [address] [place] [address] Dr. Dario Gil Ketones Ql (U) Negative Normal NEGATIVE [facility] Comment on above: Performed By: #### H H #### [facility] [address] [place] [address] Dr. Dario Gil LEUKOCYTES TRACE Abnormal NEGATIVE [facility] Comment on above: Performed By: #### H H #### [facility] [address] [place] [address] Dr. Dario Gil MUCOUS NONE SEEN Normal NONE SEEN [facility] Comment on above: Performed By: #### H H #### [facility] [address] [place] [address] Dr. Dario Gil Nitrite Ql (U) Negative Normal NEGATIVE [facility] Comment on above: Performed By: #### H H #### [facility] [address] [place] [address] Dr. Dario Gil pH (U) 5.5 [pH] Normal 5-9 [facility] Comment on above: Performed By: #### H H #### [facility] [address] [place] [address] Dr. Dario Gil RBC 0-2 Normal 0-2 [facility] Comment on above: Performed By: #### H H #### [facility] [address] [place] [address] Dr. Dario Gil SPEC GRAVITY 1.010 Normal 1.005-<=1. 025 [facility] Comment on above: Performed By: #### H H #### [facility] [address] [place] [address] Dr. Dario Gil UA PROTEIN Negative Normal NEGATIVE/ TRACE [facility] Comment on above: Performed By: #### H H #### [facility] [address] [place] [address] Dr. Dario Gil Urobilinogen Qn (U) 0.2 {Carlos'U}/dL Normal 0.2 - 1. 0 [facility] Comment on above: Performed By: #### H H #### [facility] [address] [place] [address] Dr. Dario Gil WBC 0-2 Abnormal NONE SEEN [facility] Comment on above: Performed By: #### H H #### [facility] [address] [place] [address] Dr. Dario Gil URIC ACID SERUMon 06-03-2022 Urate [Mass/Vol] 5.1 mg/dL Normal 2.6-6.0 [facility] Comment on above: Performed By: #### M G, URIC, RENAL #### [facility] [address] [place] [address] Dr. Dario Gil URINE T PROTEIN CREAT RATIOo n 06-03-2022 Protein (U) [Mass/Vol] 5.5 mg/dL Normal <=12.0 Th e [facility] Comment on above: Performed By: #### H H #### [facility] [address] [place] [address] Dr. Dario Gil UR PROT CREAT RAT 0.07 Normal [facility] Comment on above: Performed By: #### H H #### [facility] [address] [place] [address] Dr. Dario Gil URINE CREAT 77.51 mg/dL Normal 20.00-300. 00 [facility] Comment on above: Performed By: #### H H #### [facility] [address] [place] [address] Dr. Dario Gil VITAMIN D 25 OHon 06-03-2022 VIT D 25-OH 58.1 ng/mL Normal [facility] Comment on above: Performed By: #### H H #### [facility] [address] [place], [place] [address] Dr. Dario Gil VIT D RANGES SEE BELOW Normal [facility] Comment on above: Result Comment: <20 ng/mL Vit D deficient 20 - <30 ng/mL Vit D insufficient 30 - 100 ng/mL Vit D sufficient >100 ng/mL Potential Toxicity Performed By: #### H H #### [facility] [address] [place], [place] [address] Dr. Dario Gil Office Visit (Cardiology)on 03-18-2022 [...] MOUTH TWICE A DAY NEEDED Allergies Medication [id number] PTWK Adverse Reaction; Shortness of breath;; Recorded [...] and no PND. Vitals Vital Signs Recorded: [id number] 11:35AMRecorded: [id number] 11:23AM [id number], Lhkqgbrv081, LUE, Sitting Mnsmkqivw08, Hbevdyxb89, LUE, Sitting Heart Rate60, L Radial Height5 ft 4 in Odlxsj523 lb BMI Byzrqxhxmh06.2 kg/m2 BSA Calculated1.69 Tobacco Useb) No Falls [...] and affect . Signatures Adrien Avalos MSN, MANAGER OF CARE-SENIOR [employer]UX SYSTEMS ENGINEER, PMHNP-BC [facility] [employer] [place] Please excuse any errors in grammar or translation related to this dictation. Voice recognition software was utilized to prepare this document. Electronically (more content not included)... Normal [employer] Tobacco Screening.on 022 Fall risk assessment a) No falls within the last year [facility] [employer]u alexey 250 DO Work Phone: Tobacco use status CPHS b) No [facility] [employer]u alexey 250 DO Work Phone: PROF CHEM 8 (BAS METB)on Anion gap [Moles/Vol] 5.7 mmol/L Normal [facility] Comment on above: Performed By: #### H H #### [facility] [address] [place] [address] [address] Dario Gil Calcium [Mass/Vol] 9.3 mg/dL Normal 8.5-10.1 [facility] Comment on above: Performed By: #### H H #### [facility] [address] [place] [address] [address] Dario Gil Chloride [Moles/Vol] 97 mmol/L Critically low 98-107 [facility] Comment on above: Performed By: #### H H #### [facility] [address] [place] [address] [address] Dario Gil CO2 [Moles/Vol] 31.9 mmol/L Normal 21.0-32.0 [facility] Comment on above: Performed By: #### H H #### [facility] [address] [address] [address] Dario Gil Creatinine [Mass/Vol] 1.34 mg/dL Critically high 0.55-1.02 [facility] Comment on above: Performed By: #### H H #### [facility] [address] [place] [address] [address] Dario Gil EGFR-AF ALGERIAN 46 mL/min/1.73m2 Critically low >=60 [facility] Comment on above: Performed By: #### H H #### [facility] [address] [place] [address] [address] Dario Gil EGFR-NON AF ALGERIAN 38 mL/min/1.73m2 Critically low >=60 [facility] Comment on above: Performed By: #### H H #### [facility] [address] [place] [address] [address] Dario Gil Glucose [Mass/Vol] 92 mg/dL Normal 74-106 [facility] Comment on above: Performed By: #### H H #### [facility] [address] [address] [address] Dario Gil Potassium [Moles/Vol] 4.6 mmol/L Normal 3.5-5.1 [facility] Comment on above: Performed By: #### H H #### [facility] [address] [place] [address] [address] Dario Gil Sodium [Moles/Vol] 130 mmol/L Critically low 136-145 [facility] Comment on above: Performed By: #### H H #### [facility] [address] [address] [address] Dario Gil Urea nitrogen [Mass/Vol] 28.0 mg/dL Critically high 7.0-18.0 [facility] Comment on above: Performed By: #### H H #### [facility] [address] [place], [place] [address] Dr. Dario Gil Urea nitrogen/Creatinine [Mass ratio] 20.9 mg/mg Normal [facility] Comment on above: Performed By: #### H H #### [facility] [address] [place], [place] [address] Dr. Dario Gil Office Visit (Cardiology)on 01-15-2022 [...] MOUTH TWICE A DAY NEEDED Allergies Medication Pwknbbtv-[id number] PTWK Adverse Reaction; Shortness of breath;; Recorded [...] Signs Patient: JANELLE BURT; : 1940; Recorded: [id number] 11:16AMRecorded: [id number] 10:55AMRecorded: [id number] 10:48AM [id number], LUE, Vgyzfdd850, RUE, Sitting Xjngmamri1237, LUE, Yjnsjaa01, RUE, Sitting Heart Rate60, R Radial Height5 ft 4 in Mkelrs129 lb BMI Lwcjgzdobp65.34 (more content not included)... Normal [employer] Tobacco Screening.on 022 Adult depression screening assessment No [facility] [employer] 250 DO Work Phone: Fall risk assessment a) No falls within the last year [facility] [employer] 250 DO Work Phone: Tobacco use status CPHS b) No [facility] [employer] 250 DO Work Phone: PTH INTACTon 12-05-2021 PTH, Intact 14 pg/mL Critically low 15-65 [facility] Comment on above: Performed By: #### P THINT #### [facility] [address] [place] [address] Dr. Dario Gil VIT D 25-OH LABCORPon 2021 Vitamin D, 25-Hydroxy 22.8 ng/mL Critically low 30.0-100.0 [facility] Comment on above: Result Comment: Eliza min D deficiency has been defined by the Meridian of [employer] and an Endocrine Society practice guideline as a level of serum 25-OH vitamin D less than 20 ng/mL (1,2). The Endocrine Society went on to further define vitamin D insufficiency as a level between 21 and 29 ng/mL (2). 1. IOM (Meridian of Medicine). 2010. Dietary reference intakes for calcium and D. [place]: The National Academies Press. 2. Mark MF, Dustin [place], Coni WARD, et al. Evaluation, treatment, and prevention of vitamin D deficiency: an Endocrine Society clinical practice guideline. JCEM. 2010; 96(7):1911-30. Performed By: #### V ITADLC #### [facility] [address] [place] [address] Dr. Dario Gil HEMOGRAM AND PLATELon 2021 Hematocrit (Bld) [Volume fraction] 44.0 % Normal 36.0-48.0 [facility] Comment on above: Performed By: #### H H #### [facility] [address] [place] [address] Dr. Dario Gil Hemoglobin (Bld) [Mass/Vol] 14.9 g/dL Normal 12.0-16.0 [facility] Comment on above: Performed By: #### H H #### [facility] [address] [place] [address] Dr. Dario Gil MCH (RBC) [Entitic mass] 29.7 pg Normal 26.7-34.0 [facility] Comment on above: Performed By: #### H H #### [facility] [address] [place] [address] Dr. Dario Gil MCHC (RBC) [Mass/Vol] 33.9 g/dL Normal 29.9-35.2 [facility] Comment on above: Performed By: #### H H #### [facility] [address] [place] [address] Dr. Dario Gil MCV (RBC) [Entitic vol] 87.8 fL Normal 81.0-99.0 [facility] Comment on above: Performed By: #### H H #### [facility] [address] [address] [address] Dario Gil PLT 245 103/ul Normal 150-450 [facility] Comment on above: Performed By: #### H H #### [facility] [address] [place] [address] Dr. Dario Gil RBC 5.01 106/ul Normal 4.20-5.40 [facility] Comment on above: Performed By: #### H H #### [facility] [address] [address] [address] Dario Gil WBC 5.8 103/ul Normal 4.0-11.0 [facility] Comment on above: Performed By: #### H H #### [facility] [address] [place] [address] Dr. Dario Gil MAGNESIUMon 12-04-2021 Magnesium [Mass/Vol] 1.9 mg/dL Normal 1.8-2.4 [facility] Comment on above: Performed By: #### H H #### [facility] [address] [place] [address] Dr. Dario Gil RENAL FUNCTION PANELon 12-04 Albumin [Mass/Vol] 3.9 g/dL Normal 3.4-5.0 [facility] Comment on above: Performed By: #### H H #### [facility] [address] [place] [address] Dr. Dario Gil Calcium [Mass/Vol] 9.4 mg/dL Normal 8.5-10.1 [facility] Comment on above: Performed By: #### H H #### [facility] [address] [place] [address] Dr. Dario Gil Chloride [Moles/Vol] 96 mmol/L Critically low 98-107 [facility] Comment on above: Performed By: #### H H #### [facility] [address] [place] [address] Dr. Dario Gil CO2 [Moles/Vol] 30.8 mmol/L Normal 21.0-32.0 [facility] Comment on above: Performed By: #### H H #### [facility] [address] [address] [address] Dario Gil Creatinine [Mass/Vol] 1.25 mg/dL Critically high 0.55-1.02 [facility] Comment on above: Performed By: #### H H #### [facility] [address] [address] [address] Dario Gil EGFR-AF ALGERIAN 50 mL/min/1.73m2 Critically low >=60 [facility] Comment on above: Performed By: #### H H #### [facility] [address] [address] [address] Dario Gil EGFR-NON AF ALGERIAN 41 mL/min/1.73m2 Critically low >=60 [facility] Comment on above: Performed By: #### H H #### [facility] [address] [address] [address] Dario Gil Glucose [Mass/Vol] 93 mg/dL Normal 74-106 [facility] Comment on above: Performed By: #### H H #### [facility] [address] [address] [address] Dario Gil Phosphate [Mass/Vol] 3.4 mg/dL Normal 2.6-4.7 [facility] Comment on above: Performed By: #### H H #### [facility] [address] [address] [address] Dario Gil Potassium [Moles/Vol] 4.2 mmol/L Normal 3.5-5.1 [facility] Comment on above: Performed By: #### H H #### [facility] [address] [address] [address] Dario Gil Sodium [Moles/Vol] 133 mmol/L Critically low 136-145 [facility] Comment on above: Performed By: #### H H #### [facility] [address] [address] [address] Dario Gil Urea nitrogen [Mass/Vol] 20.0 mg/dL Critically high 7.0-18.0 [facility] Comment on above: Performed By: #### H H #### [facility] [address] [address] [address] Dario Gil UA RANDOM W/MICROSCOPICon BACTERIA NONE SEEN Normal NONE SEEN [facility] Comment on above: Performed By: #### U AMIC #### [facility] [address] [place] [address] Dr. Dario Gil Bilirubin Ql (U) Negative Normal NEGATIVE [facility] Comment on above: Performed By: #### U AMIC #### [facility] [address] [place] [address] Dr. Dario Gil CAST NONE SEEN Normal NONE SEEN [facility] Comment on above: Performed By: #### U AMIC #### [facility] [address] [place] [address] Dr. Dario Gil Clarity (U) CLEAR Normal CLEAR [facility] Comment on above: Performed By: #### U AMIC #### [facility] [address] [place] [address] Dr. Dario Gil Color (U) LT. YELLOW Normal YELLOW [facility] Comment on above: Performed By: #### U AMIC #### [facility] [address] [place] [address] Dr. Dario Gil Crystals LM Nom (Urine sed) NONE SEEN Normal NONE SEEN [facility] Comment on above: Performed By: #### U AMIC #### [facility] [address] [place] [address] Dr. Dario Gil Epithelial cells LM Ql (Urine sed) FEW Abnormal NONE SEEN /RARE [facility] Comment on above: Performed By: #### U AMIC #### [facility] [address] [place] [address] Dr. Dario Gil Glucose Ql (U) Negative Normal NEGATIVE [facility] Comment on above: Performed By: #### U AMIC #### [facility] [address] [place] [address] Dr. Dario Gil Hemoglobin Ql (U) Negative Normal NEGATIVE [facility] Comment on above: Performed By: #### U AMIC #### [facility] [address] [place] [address] Dr. Dario Gil Ketones Ql (U) Negative Normal NEGATIVE [facility] Comment on above: Performed By: #### U AMIC #### [facility] [address] [address] [address] Dario Gil LEUKOCYTES SMALL Abnormal NEGATIVE [facility] Comment on above: Performed By: #### U AMIC #### [facility] [address] [address] [address] Dario Gil MUCOUS NONE SEEN Normal NONE SEEN [facility] Comment on above: Performed By: #### U AMIC #### [facility] [address] [address] [address] Dario Gil Nitrite Ql (U) Negative Normal NEGATIVE [facility] Comment on above: Performed By: #### U AMIC #### [facility] [address] [place] [address] Dr. Dario Gil pH (U) 7.0 [pH] Normal 5-9 [facility] Comment on above: Performed By: #### U AMIC #### [facility] [address] [place] [address] Dr. Dario Gil RBC 0-2 Normal 0-2 [facility] Comment on above: Performed By: #### U AMIC #### [facility] [address] [place] [address] Dr. Dario Gil SPEC GRAVITY 1.010 Normal 1.005-<=1. 025 [facility] Comment on above: Performed By: #### U AMIC #### [facility] [address] [address] [address] Dario Gil UA PROTEIN Negative Normal NEGATIVE/ TRACE [facility] Comment on above: Performed By: #### U AMIC #### [facility] [address] [address] [address] Dario Gil Urobilinogen Qn (U) 0.2 {Carlos'U}/dL Normal 0.2 - 1. 0 [facility] Comment on above: Performed By: #### U AMIC #### [facility] [address] [place] [address] Dr. Dario Gil WBC 0-2 Abnormal NONE SEEN [facility] Comment on above: Performed By: #### U AMIC #### [facility] [address] [address] [address] Dario Gil URIC ACID SERUMon 12-04-2021 Urate [Mass/Vol] 5.3 mg/dL Normal 2.6-6.0 [facility] Comment on above: Performed By: #### H H #### [facility] [address] [address] [address] Dario Gil URINE T PROTEIN CREAT RATIOo n 12-04-2021 Protein (U) [Mass/Vol] 6.0 mg/dL Normal <=12.0 [facility] e [facility] Comment on above: Performed By: #### H H #### [facility] [address] [place] [address] Dr. Dario Gil UR PROT CREAT RAT 0.06 Normal [facility] Comment on above: Performed By: #### H H #### [facility] [address] [address] [address] Dario Gil URINE CREAT 96.21 mg/dL Normal 20.00-300. 00 [facility] Comment on above: Performed By: #### H H #### [facility] [address] [place] [address] Dr. Dario Gil Tobacco Screening.on 021 Fall risk assessment a) No falls within the last year [facility] DO Work Phone: Tobacco use status [facility] b) No [facility] DO Work Phone: Vital Signs Date Time Vital Sign Value Performing Clinician Facility 01-18-2024 12:19-0400 Diastolic blood pressure 100 mm[Hg] Michael Strauss DO Work Phone: [facility] 01-18-2024 12:19-0400 Systolic blood pressure 170 mm[Hg] Michael Strauss DO Work Phone: [facility] 01-18-2024 11:21-0400 Body height 162.6 cm Michael Strauss DO Work Phone: [facility] 01-18-2024 11:0400 Body mass index (BMI) [Ratio] 23 kg/m2 Michael Strauss DO Work Phone: [facility] 01-18-2024 11:0400 Body weight 60.78 kg Michael Strauss DO Work Phone: [facility] 01-18-2024 11:040 Heart rate 60 /min Michael Strauss DO Work Phone: [facility] 12-22-2023 13:040 Body height 162.56 cm [facility] 12-22-2023 13:0400 Body mass index (BMI) [Ratio] 23.6 kg/m2 [facility] 12-22-2023 13:26-0400 Body temperature 96.8 [degF] [facility] 12-22-2023 [id number]:[id number] Body weight 62.25 kg [facility] 12-22-2023 13:26-0400 Diastolic blood pressure 74 mm[Hg] [facility] 12-22-2023 13:26-0400 Heart rate 68 /min [facility] 12-22-2023 13:26-0400 Respiratory rate 16 /min [facility] 12-22-2023 13:26-0400 SaO2% (BldA) [Mass fraction] 98 % [facility] 12-22-2023 13:260400 Systolic blood pressure 131 mm[Hg] [facility] 12-17-2023 11:130400 Body height 162.56 cm [facility] 12-17-2023 11:130400 Body mass index (BMI) [Ratio] 22.6 kg/m2 [facility] 12-17-2023 11:130400 Body weight 59.87 kg [facility] 12-17-2023 11:130400 Diastolic blood pressure 68 mm[Hg] [facility] 12-17-2023 11:13-0400 Heart rate 63 /min [facility] 12-17-2023 11:13-0400 Systolic blood pressure 162 mm[Hg] [facility] 08-05-2023 10:46-0400 Body height 162.56 cm [facility] 08-05-2023 10:46-0400 Body mass index (BMI) [Ratio] 23.3 kg/m2 [facility] 08-05-2023 10:46-0400 Body temperature 96.1 [degF] [facility] 08-05-2023 10:46-0400 Body weight 61.8 kg [facility] 08-05-2023 10:46-0400 Diastolic blood pressure 80 mm[Hg] [facility] 08-05-2023 10:46-0400 Heart rate 68 /min [facility] 08-05-2023 10:46-0400 Respiratory rate 16 /min [facility] 08-05-2023 10:46-0400 SaO2% (BldA) [Mass fraction] 98 % [facility] 08-05-2023 10:46-0400 Systolic blood pressure 132 mm[Hg] [facility] 05-18-2023 11:27-0500 Body height 162.6 cm Michael Strauss DO Work Phone: [facility] 05-18-2023 11:27-0500 Body mass index (BMI) [Ratio] 22.49 kg/m2 Michael Strauss DO Work Phone: [facility] 05-18-2023 11:270500 Body weight 59.42 kg Michael Strauss DO Work Phone: [facility] 05-18-2023 11:27-0500 Diastolic blood pressure 80 mm[Hg] Michael Strauss DO Work Phone: [facility] 05-18-2023 11:27-0500 Heart rate 64 /min Michael Strauss DO Work Phone: [facility] 05-18-2023 11:27-0500 Systolic blood pressure 140 mm[Hg] Michael Strauss DO Work Phone: [facility] 03-10-2023 10:36-0500 Body height 162.6 cm Adrien Avalos MANAGER OF CARE-SENIOR LINUX SYSTEMS ENGINEER Work Phone: [facility] 03-10-2023 10:36-0500 Body mass index (BMI) [Ratio] 22.31 kg/m2 Adrien Avalos MANAGER OF CARE-SENIOR LINUX SYSTEMS ENGINEER Work Phone: [facility] 03-10-2023 10:36-0500 Body weight 58.97 kg Adrien Avalos MANAGER OF CARE-SENIOR LINUX SYSTEMS ENGINEER Work Phone: [facility] 03-10-2023 10:36-0500 Diastolic blood pressure 66 mm[Hg] Adrien Avalos MANAGER OF CARE-SENIOR LINUX SYSTEMS ENGINEER Work Phone: [facility] 03-10-2023 10:36-0500 Heart rate 64 /min Adrien Avalos MANAGER OF CARE-SENIOR LINUX SYSTEMS ENGINEER Work Phone: [facility] 03-10-2023 10:36-0500 Systolic blood pressure 140 mm[Hg] Adrien Avalos MANAGER OF CARE-SENIOR LINUX SYSTEMS ENGINEER Work Phone: [facility] 02-02-2023 11:00-0500 Body height 162.56 cm Antonino Gustafson Other [employer] Other 02-02-2023 11:00-0500 Body mass index (BMI) [Ratio] 22.14 kg/m2 Antonino Gustafson Other [employer] Other 02-02-2023 11:00-0500 Body weight 58.51 kg Antonino Gustafson Other [employer] Other 02-02-2023 11:00-0500 Diastolic blood pressure 63 mm[Hg] Antonino Gustafson Other [employer] Other 02-02-2023 11:00-0500 Systolic blood pressure 127 mm[Hg] Antonino Gustafson Other [employer] Other 01-29-2023 14:05-0400 Body temperature 97.2 [degF] MD Antonino Gustafson Work Phone: [facility] 01-29-2023 14:05-0400 Diastolic blood pressure 71 mm[Hg] MD Antonino Gustafson Work Phone: [facility] 01-29-2023 14:05-0400 Heart rate 75 /min MD Antonino Gustafson Work Phone: [facility] 01-29-2023 14:05-0400 Respiratory rate 16 /min MD Antonino Gustafson Work Phone: [facility] 01-29-2023 14:05-0400 SaO2% (BldA) [Mass fraction] 95 % MD Antonino Gustafson Work Phone: [facility] 01-29-2023 14:05-0400 Systolic blood pressure 156 mm[Hg] MD Antonino Gustafson Work Phone: [facility] 01-29-2023 05:56-0400 Body weight 57.1 kg MD Antonino Gustafson Work Phone: [facility] 01-28-2023 16:00-0400 Body height 162.56 cm MD Antonino Gustafson Work Phone: [facility] 01-27-2023 10:54-0400 Body temperature 97.8 [degF] MD Antonino Gsutafson Work Phone: [facility] 01-27-2023 10:54-0400 Diastolic blood pressure 74 mm[Hg] MD Antonino Gustafson Work Phone: [facility] 01-27-2023 10:54-0400 Heart rate 64 /min MD Antonino Gustafson Work Phone: [facility] 01-27-2023 10:54-0400 Respiratory rate 20 /min MD Antonino Gustafson Work Phone: [facility] 01-27-2023 10:54-0400 SaO2% (BldA) [Mass fraction] 100 % MD Antonino Gustafson Work Phone: [facility] 01-27-2023 10:54-0400 Systolic blood pressure 181 mm[Hg] MD Antonino Gustafson Work Phone: [facility] 01-27-2023 07:53-0400 Body height 162.56 cm MD Antonino Gustafson Work Phone: [facility] 01-27-2023 07:53-0400 Body weight 58.96 kg MD Antonino Gustafson Work Phone: [facility] 01-04-2023 13:00-0400 Body height 162.56 cm Liliya Bhavna Other [employer] Other 01-04-2023 13:00-0400 Body mass index (BMI) [Ratio] 22.59 kg/m2 Liliya Bhavna Other [employer] Other 01-04-2023 13:00-0400 Body temperature 96.4 [degF] Liliya Bhavna Other [employer] Other 01-04-2023 13:00-0400 Body weight 59.69 kg Liliya Bhavna Other [employer] Other 01-04-2023 13:00-0400 Diastolic blood pressure 74 mm[Hg] Liliya Bhavna Other [employer] Other 01-04-2023 13:00-0400 Respiratory rate 18 /min Liliya Bhavna Other [employer] Other 01-04-2023 13:00-0400 SaO2% (BldA) [Mass fraction] 98 % Liliya Bhavna Other [employer] Other 01-04-2023 13:00-0400 Systolic blood pressure 153 mm[Hg] Liliya Bhavna Other [employer] Other 11-03-2022 15:30-0400 Body height 162.56 cm Antonino Gustafson Other [employer] Other 11-03-2022 15:30-0400 Body mass index (BMI) [Ratio] 22.83 kg/m2 Antonino Gustafson Other [employer] Other 11-03-2022 15:30-0400 Body weight 60.33 kg Antonino Gustafson Other [employer] Other 11-03-2022 15:30-0400 Diastolic blood pressure 55 mm[Hg] Antonino Gustafson Other [employer] Other 11-03-2022 15:30-0400 Systolic blood pressure 146 mm[Hg] Antonino Gustafson Other [employer] Other 06-11-2022 11:40-0400 Body height 162.56 cm Liliya Bhavna Other [employer] Other 06-11-2022 11:40-0400 Body mass index (BMI) [Ratio] 24.92 kg/m2 Liliya Bhavna Other [employer] Other 06-11-2022 11:40-0400 Body temperature 96.9 [degF] Liliya Bhavna Other [employer] Other 06-11-2022 11:40-0400 Body weight 65.86 kg Liliya Bhavna Other [employer] Other 06-11-2022 11:40-0400 Diastolic blood pressure 88 mm[Hg] Liliya Bhavna Other [employer] Other 06-11-2022 11:40-0400 Respiratory rate 18 /min Liliya Bhavna Other [employer] Other 06-11-2022 11:40-0400 SaO2% (BldA) [Mass fraction] 98 % Liliya Bhavna Other [employer] Other 06-11-2022 11:40-0400 Systolic blood pressure 138 mm[Hg] Liliya Bhavna Other [employer] Other 03-18-2022 11:35-0500 Diastolic blood pressure 62 mm[Hg] Antonino Gustafson Work Phone: [facility] [employer] 250 DO Work Phone: 03-18-2022 11:35-0500 Systolic blood pressure 130 mm[Hg] Antonino Gustafson Work Phone: [facility] [employer] 250 DO Work Phone: 03-18-2022 11:23-0500 Body height 162.56 cm Antonino Gustafson Work Phone: [facility] [employer] 250 DO Work Phone: 03-18-2022 11:23-0500 Body mass index (BMI) [Ratio] 24.2 kg/m2 Antonino Gustafson Work Phone: [facility] [employer] 250 DO Work Phone: 03-18-2022 11:23-0500 Body surface area Derived from formula 1.69 m2 Antonino Gustafson Work Phone: [facility] [employer] 250 DO Work Phone: 03-18-2022 11:23-0500 Body weight 63.96 kg Antonino Gustafson Work Phone: [facility] 250 DO Work Phone: 03-18-2022 11:23-0500 Diastolic blood pressure 60 mm[Hg] Antonino Gustafson Work Phone: [facility] 250 DO Work Phone: 03-18-2022 11:23-0500 Heart rate 60 /min Antonino Gustafson Work Phone: [facility] 250 DO Work Phone: 03-18-2022 11:23-0500 Systolic blood pressure 142 mm[Hg] Antonino Gustafson Work Phone: [facility] 250 DO Work Phone: 01-15-2022 11:16-0400 Diastolic blood pressure 80 mm[Hg] Antonino Gustafson Work Phone: [facility] 250 DO Work Phone: 01-15-2022 11:16-0400 Systolic blood pressure 192 mm[Hg] Antonino Gustafson Work Phone: [facility] 250 DO Work Phone: 01-15-2022 10:55-0400 Diastolic blood pressure 80 mm[Hg] Antonino Gustafosn Work Phone: [facility] 250 DO Work Phone: 01-15-2022 10:55-0400 Systolic blood pressure 218 mm[Hg] Antonino Gustafson Work Phone: [facility] 250 DO Work Phone: 01-15-2022 10:48-0400 Body height 162.56 cm Antonino Gustafson Work Phone: [facility] 250 DO Work Phone: 01-15-2022 10:48-0400 Body mass index (BMI) [Ratio] 23.34 kg/m2 Antonino Gustafson Work Phone: [facility] 250 DO Work Phone: 01-15-2022 10:48-0400 Body surface area Derived from formula 1.66 m2 Antonino Gustafson Work Phone: [facility] 250 DO Work Phone: 01-15-2022 10:48-0400 Body weight 61.69 kg Antonino Gustafson Work Phone: [facility] 250 DO Work Phone: 01-15-2022 10:48-0400 Diastolic blood pressure 74 mm[Hg] Antonino Gustafson Work Phone: [facility] 250 DO Work Phone: 01-15-2022 10:48-0400 Heart rate 60 /min Antonino Gustafson Work Phone: [facility] [employer] 250 DO Work Phone: 01-15-2022 10:48-0400 Systolic blood pressure 220 mm[Hg] Antonino Gustafson Work Phone: [facility] [employer] 250 DO Work Phone: 12-08-2021 11:40-0400 Body height 162.56 cm Liliya Bhavna Other [employer] Other 12-08-2021 11:40-0400 Body mass index (BMI) [Ratio] 23.34 kg/m2 Liliya Bhavna Other [employer] Other 12-08-2021 11:40-0400 Body temperature 97.2 [degF] Liliya Bhavna Other [employer] Other 12-08-2021 11:40-0400 Body weight 61.69 kg Liliya Bhavna Other [employer] Other 12-08-2021 11:40-0400 Diastolic blood pressure 72 mm[Hg] Liliya Bhavna Other [employer] Other 12-08-2021 11:40-0400 Respiratory rate 18 /min Liliya Bhavna Other [employer] Other 12-08-2021 11:40-0400 SaO2% (BldA) [Mass fraction] 99 % Liliya Bhavna Other [employer] Other 12-08-2021 11:40-0400 Systolic blood pressure 130 mm[Hg] Liliya Bhavna Other [employer] Other 10-31-2021 03:30-0400 Diastolic blood pressure 85 mm[Hg] MD Antonino Gustafson Work Phone: [facility] 10-31-2021 03:30-0400 Heart rate 55 /min MD Antonino Gustafson Work Phone: [facility] 10-31-2021 03:30-0400 Respiratory rate 18 /min MD Antonino Gustafson Work Phone: [facility] 10-31-2021 03:30-0400 SaO2% (BldA) [Mass fraction] 96 % MD Antonino Gustafson Work Phone: [facility] 10-31-2021 03:30-0400 Systolic blood pressure 193 mm[Hg] MD Antonino Gustafson Work Phone: [facility] 10-31-2021 00:19-0400 Body height 162.56 cm MD Antonino Gustafson Work Phone: [facility] 10-31-2021 00:19-0400 Body temperature 98 [degF] MD Antonino Gustafson Work Phone: [facility] 10-31-2021 00:19-0400 Body weight 58.96 kg MD Antonino Gustafson Work Phone: [facility] 05-29-2021 11:00-0500 Body height Liliya Bhavna Other [employer] Other 05-29-2021 11:00-0500 Body mass index (BMI) [Ratio] 24.03 kg/m2 Liliya Bhavna Other [employer] Other 05-29-2021 11:00-0500 Body weight 63.5 kg Liliya Bhavna Other [employer] Other 05-29-2021 11:00-0500 Diastolic blood pressure 76 mm[Hg] Liliya Bhavna Other [employer] Other 05-29-2021 11:00-0500 Respiratory rate 18 /min Liliya Bhavna Other [employer] Other 05-29-2021 11:00-0500 SaO2% (BldA) [Mass fraction] 99 % Liliya Bhavna Other [employer] Other 05-29-2021 11:00-0500 Systolic blood pressure 134 mm[Hg] Liliya Bhavna Other [employer] Other 01-09-2021 11:30-0400 Diastolic blood pressure 70 mm[Hg] Antonino Gustafson Work Phone: [facility] 250 DO Work Phone: 01-09-2021 11:30-0400 Systolic blood pressure 144 mm[Hg] Antonino Gustafson Work Phone: [facility] DO Work Phone: 01-09-2021 10:54-0400 Body height 162.56 cm Antonino Gustafson Work Phone: [facility] DO Work Phone: 01-09-2021 10:54-0400 Body mass index (BMI) [Ratio] 24.2 kg/m2 Antonino Gustafson Work Phone: [facility] 250 DO Work Phone: 01-09-2021 10:54-0400 Body surface area Derived from formula 1.69 m2 Antonino Gustafson Work Phone: [facility] 250 DO Work Phone: 01-09-2021 10:54-0400 Body weight 63.96 kg Antonino Gustafson Work Phone: [facility] 250 DO Work Phone: 01-09-2021 10:54-0400 Diastolic blood pressure 74 mm[Hg] Antonino Gustafson Work Phone: [facility] DO Work Phone: 01-09-2021 10:54-0400 Heart rate 60 /min Antonino Gustafson Work Phone: [facility] DO Work Phone: 01-09-2021 10:54-0400 Systolic blood pressure 156 mm[Hg] Antonino Gustafson Work Phone: [facility] DO Work Phone: Encounters Encounter Date Encounter Type Care Provider Facility Start: 01-25-2024 End: 01-25-2024 ambulatory [facility] Start: 01-18-2024 End: 01-18-2024 Office outpatient visit 25 minutes [facility] DO Work Phone: [facility] Comment on above: Accelerated hyperten alvaro; ASHD (arteriosclerotic heart disease); Paroxysmal atrial fibrillation (Multi); Former smoker; Body mass index (BMI) 23.0-23.9, adult Start: 01-18-2024 End: 01-18-2024 ambulatory [facility] Start: 12-22-2023 End: 12-22-2023 ambulatory [facility] Work Phone: Start: 12-22-2023 End: 12-22-2023 Patient encounter procedure [facility] José Antonio Work Phone: Start: 12-17-2023 End: 12-17-2023 ambulatory [facility] Work Phone: Start: 12-17-2023 End: 12-17-2023 [facility] encounter procedure [facility] Work Phone: Start: 08-05-2023 End: 08-05-2023 [facility] Work Phone: Start: 08-05-2023 End: 08-05-2023 Patient encounter procedure [facility] José Antonio Work Phone: Start: 07-27-2023 Non-patient / Non-visit [facility] Work Phone: Start: 05-18-2023 End: 05-18-2023 ambulatory [facility] Start: 05-18-2023 End: 05-18-2023 Office outpatient visit 25 minutes [facility] Work Phone: [facility] Comment on above: Paroxysmal atrial fi brillation (CMS/HCC); Accelerated hypertension; Mixed hyperlipidemia; Stage 3b chronic kidney disease (CMS/HCC) Start: 03-10-2023 End: 03-10-2023 Office outpatient visit 15 minutes Adrien Avalos MANAGER OF CARE-SENIOR LINUX SYSTEMS ENGINEER Work Phone: [facility] Comment on above: Paroxysmal atrial fi brillation (CMS/HCC) (Primary Dx); Chest pain, unspecified type; Accelerated hypertension; Stage 3a chronic kidney disease (CMS/HCC); BMI 22.0-22.9, adult Start: 03-10-2023 End: 03-10-2023 ambulatory [facility] Start: 02-24-2023 End: 02-24-2023 ambulatory Antonino Gustafson Other [employer] Other Start: 02-24-2023 Telephone encounter Antonino Gustafson [facility] Start: 02-11-2023 End: 02-11-2023 ambulatory ANTONINO GUSTAFSON [facility]ulatory Start: 02-02-2023 End: 02-02-2023 ambulatory Antonino Gustafson Other [employer] Other Start: 02-02-2023 Transitional care [facility] 14 day discharge Antonino Gustafson [facility] Start: 01-28-2023 End: 01-28-2023 ambulatory Antonino Gustafson Other [employer] Other Start: 01-28-2023 Telephone encounter Antonino Gustafson [facility] Start: 01-28-2023 End: 01-29-2023 Evaluation and management of inpatient [facility] Facility:[facility] Start: 01-28-2023 End: 01-29-2023 Evaluation and management of inpatient MD Antonino Gustafson Work Phone: [facility] Work Phone: Start: 01-27-2023 Evaluation and management of inpatient MD Antonino Gustafson Work Phone: [facility] Work Phone: Start: 01-27-2023 observation encounter MD Preethi Gustafson Work Phone: [facility] Work Phone: Start: 01-04-2023 End: 01-04-2023 ambulatory Liliya Cox Other [facility] Other Start: 01-04-2023 Office outpatient vi sit 25 minutes Liliya Bhavna [facility] Start: 11-03-2022 End: 11-03-2022 ambulatory Antonino Gustafson Other [facility] Other Start: 11-03-2022 Office outpatient vi sit 15 minutes Antonino Gustafson [facility] Start: 10-09-2022 Rx Renewal Antonino Gustafson Work Phone: [facility] 250 DO Work Phone: Start: 06-11-2022 End: 06-11-2022 ambulatory Liliya Bhavna Other [facility] [employer] Other Start: 06-11-2022 Office outpatient vi sit 15 minutes Liliya Bhavna [facility] José Antonio Start: 06-03-2022 End: 06-04-[address] ANTONINO GUSTAFSON Facility:[facility]1 Start: 03-18-2022 Office outpatient vi sit 10 minutes Antonino Gustafson Work Phone: [facility] 250 DO Work Phone: Start: 03-18-[address] Antonino Gustafson Facility: Start: 02-09-2022 Adult health examination Preethi Gustafson Other [facility] Other Start: 02-05-2022 End: 02-06-[address] MICHAEL STRAUSS Facility:[facility]1 Start: 01-15-[address] Michael Strauss Facility: Start: 01-15-2022 Office outpatient vi sit 25 minutes Antonino Gustafson Work Phone: [facility] 250 DO Work Phone: Start: 12-17-2021 Rx Renewal Antonino Gustafson Work Phone: [facility] 250 DO Work Phone: Start: 12-08-2021 End: 12-08-2021 ambulatory Liliya Bhavna Other [facility] [employer] Other Start: 12-08-2021 Office outpatient vi sit 25 minutes Liliya Bhavna [facility] José Antonio Start: 12-04-2021 End: 12-05-2021 ambulatory LILIYA BHAVNA Facility: Start: 10-31-2021 End: 10-31-2021 Emergency department patient visit MD Antonino Gustafson Work Phone: [facility] Start: 09-16-2021 Rx Renewal Antonino Gustafson Work Phone: [facility] 250 DO Work Phone: Start: 05-29-2021 End: 05-29-2021 ambulatory Liliya Bhavna Other [facility] [employer] Other Start: 05-29-2021 Office outpatient vi sit 15 minutes Liliya Bhavna [facility] José Antonio Start: 01-22-2021 Rx Renewal Antonino Gustafson Work Phone: [facility] [address] [place] Work Phone: Start: 01-09-2021 Office outpatient vi sit 15 minutes Antonino Gustafson Work Phone: [facility] 250 DO Work Phone: Start: 01-09-2021 Patient encounter procedure Antonino Gustafson Work Phone: [facility] 250 DO Work Phone: Procedures Date Procedure Procedure Detail Performing Clinician Start: 05-18-2023 FOLLOW UP IN CARDIOLOGY ANTONINO GUSTAFSON Start: 03-10-2023 FOLLOW UP IN CARDIOLOGY ANTONINO GUSTAFSON Start: 02-11-2023 FOLLOW UP IN CARDIOLOGY ANTONINO GUSTAFSON Start: 01-28-2023 CL [facility] Angio MD oKry Gustafson Work Phone: Start: 01-28-2023 MD Antonino Gustafson Work Phone: Start: 01-27-2023 Plain chest X-ray MD Michaela Gustasfon Work Phone: Start: 10-31-2021 X-ray of cervical [...] - Tdap) DTaP/Tdap/Td Vaccines (2 - Tdap) [facility] Start: 09-20-2024 End: 09-20-2024 Patient encounter procedure 09/20/2024 10:20 AM EDT Office Visit [place] [id number] [place] [address] Michael Strauss DO [address] [facility] [address] [place] [address] [facility] Start: 04-05-2024 End: 04-05-2024 Patient encounter procedure 04/05/2024 10:30 AM EST Office Visit [facility] [address] [place] [address] Michael Strauss, [address] [facility] [place] [address] [facility] Start: 01-24-2024 End: 01-24-2024 Professional / ancillary services management 01/24/2024 10:00 AM EDT Ancillary Procedure [facility] [address] [place] [address] [facility] Start: 01-18-2024 End: 01-17-2025 Holter monitor study Holter Or Event Cooler Supervisor Cardiac Services Routine Paroxysmal atrial fibrillation (Multi) Expected: 01/18/2024 (Approximate), Expires: 01/17/2025 [facility] Service Area Work Phone: Comment on above: Expected: 01/18/2024 (Approximate), Expires: 01/17/2025 Start: 01-18-2024 End: 01-18-2024 Patient encounter procedure 01/18/2024 10:40 AM EDT Office Visit [facility] [address] [place] [address] Michael Strauss DO [address] [place] [address] [facility] Start: 11-28-2023 COVID-19 Vaccine ( season) COVID-19 Vaccine () [facility] Start: 11-28-2023 Influenza vaccination Influenza Vacc ine (#1) [facility] Start: 11-17-2023 End: 11-17-2023 Patient encounter procedure 11/17/2023 10:00 AM EDT Office Visit [facility] [address] [place] [address] Adrien Avalos, MANAGER OF CARE-SENIOR LINUX SYSTEMS ENGINEER [address] [place] [address] [facility] Start: 05-18-2023 End: 05-18-2023 Patient encounter procedure 05/18/2023 11:00 AM EST Office Visit [facility] [address] [place] [address] Michael Strauss, [address] [place] [address] [facility] Start: 04-06-2023 End: 04-06-2023 Patient encounter procedure 04/06/2023 10:00 AM EST Procedure Visit [facility] [address] [id number] [facility] Start: 03-10-2023 End: 03-10-2024 Holter monitor study Holter Or Event Cooler Supervisor Cardiac Services Routine Paroxysmal atrial fibrillation (CMS/HCC) Expected: 03/10/2023 (Approximate), Expires: 03/10/2024 [facility] Service Area Work Phone: Comment on above: Expected: 03/10/2023 (Approximate), Expires: 03/10/2024 Start: 01-29-2023 [facility] Start: 01-27-2023 Hospital admission [facility] Start: 01-27-2023 Referral to raw cheese worker [facility] Start: 01-14-2023 FUV, Provider: Michael Strauss, Status: Pen, Time: 10:00 AM FUV, Provider: Michael Strauss, Status: Pen, Time: 10:00 AM [place] [address] DO Work Phone: Start: 11-27-2022 COVID-19 Vaccine ( season) COVID-19 Vaccine ( season) [facility] Start: 11-27-2022 Influenza vaccination Influenza Vacc ine (#1) [facility] Start: 03-18-2022 FUV, Provider: Adrien Cha, Status: Pen, Time: 11:30 AM FUV, Provider: Adrien Cha, Status: Pen, Time: 11:30 AM [place] [address] DO Work Phone: Start: 01-15-2022 FUV, Provider: Michael Strauss, Status: Pen, Time: 10:00 AM FUV, Provider: Michael Strauss, Status: Pen, Time: 10:00 AM [facility] 250 DO Work Phone: Start: 05-08-2021 COVID-19 Vaccine (4 - Moderna series) COVID-19 Vaccine (4 - Moderna series) [facility] Start: 11-18-2014 RSV High Risk: (Elde rly (60+) or Population) (1 - 1-dose 75+ series) RSV High Risk: (Elderly (60+) or Population) (1 - 1-dose 75+ series) [facility] Start: 11-18-1989 Zoster Vaccines (1 o f 2) Zoster Vaccines (1 of 2) [facility] Start: 11-18-1958 Urine screening for protein CKD: Urine Protein Screening [facility] Start: 11-18-1957 Diabetes mellitus screening Diabetes Screening [facility] Start: 11-18-1945 Pneumococcal Vaccine : 65+ Years (1 - PCV) Pneumococcal Vaccine: 65+ Years (1 - PCV) [facility] Start: 11-18-1945 Pneumococcal Vaccine : 65+ Years (1 of 2 - PCV) Pneumococcal Vaccine: 65+ Years (1 of 2 - PCV) [facility] Start: 1940 Annual wellness visit Medicare Initial Physical (IPPE) [facility] Start: 1940 Lipid panel Lipid Panel [facility] Start: 1940 Medicare Annual Wellness Visit Medicare Annual Wellness Visit (AWV) [facility] Start: 1940 Screening for osteoporosis Bone Density Scan [facility] Start: 1940 Thyroid stimulating hormone measurement TSH Level [facility] Patient Education [facility] Work Phone: Patient referral [facility] Work Phone: Renal function 2000 panel - Serum or Plasma [facility] Immunizations Immunization Date Immunization Notes Care Provider Fa antonio 03-13-2021 Moderna COVID-19 Vac cine 100 MCG/0.5ML Intramuscular Suspension Antonino Gust[facility] Work Phone: 06-19-2020 Moderna COVID-19 Vac cine 100 MCG/0.5ML Intramuscular Suspension Antonino Gustafson Work Phone: [facility] 250 DO Work Phone: 05-23-2020 Moderna COVID-19 Vac cine 100 MCG/0.5ML Intramuscular Suspension Antonino Gustafson Work Phone: [facility] 567 DO Work Phone: 11-02-2014 diphtheria, tetanus toxoids and acellular pertussis vaccine, 5 pertussis antigens Antonino Gustafson Work Phone: [facility] 309 DO Work Phone: Payers Date Payer Category Payer Self-pay [id number] 2015 Medicare supplementa l policy (as second payer) HU[employer] MEDICARE SUPPLEMENT [id number] 2015 Private Health Insurance HUMANA SUPPLEMENT HU[employer]NA MEDICARE SUPPLEMENT [id number] 2015-Present [address] [place] [id number] 2004 Medicare [id number] 1959 Medicare [id number] 1959 Private Health Insurance [id number] 1939 Unknown [id number] [id number] .2.356 1939 Unknown [id number] 2.16.840.1.012289.3.579 .2.356 1939 Unknown [id number] 2.16.840.1.516422.3.579 .2.593 1939 Unknown [id number] 2.16.840.1.620893.3.579 .2.593 1939 Unknown [id number] 2.16.840.1.149140.3.579 .2.593 1939 Unknown [id number] 2.16.840.1.029622.3.579 .2.593 1939 Unknown [id number] 2.16.840.1.899395.3.579 .2.1244 1939 Unknown [id number] 2.16.840.1.143416.3.579 .2.1244 1939 Unknown [id number] 2.16.840.1.837496.3.579 .2.1244 1939 Unknown [id number] 2.16.840.1.445464.3.579 .2.1244 1939 Unknown [id number] [id number] .2.1244 Unknown Unknown [id number] [id number] .2.531 Social History Date Type Detail Facility Start: 03-10-2023 End: 01-18-2024 No alcohol use No alcohol use [place] [address] DO Work Phone: Comment on above: Coffee 2 cups daily; quit 1965; Start: 03-10-2023 End: 01-18-2024 Sex Assigned At [facility] Other Start: 10-31-2021 Tobacco smoking status DCIS Never smoked tobacco (finding) [facility] Start: 1940 Sex Assigned At Female F [facility] Start: 01-27-2023 End: 01-18-2024 Tobacco smoking status NHIS Ex-smoker (finding) [facility] End: 03-29-1969 History of tobacco use Current smoker [facility] Work Phone: End: 03-29-1969 History of tobacco use Cigarette Smoker [facility] Work Phone: Start: 03-10-2023 End: 01-18-2024 Tobacco use and exposure Smokeless tobacco non-user [facility] Work Phone: Start: 03-10-2023 End: 01-18-2024 Alcohol intake Lifetime non-drinker (finding) [facility] Work Phone: Start: 1940 Sex Assigned At Not on file [facility] Work Phone: Start: 02-28-2023 End: 01-18-2024 Exposure to SARS-CoV-2 (event) Not sure [facility] Goals Date Patient Goal Desired Activity /State Functional Status Date Assessment Result Facility 01-29-2023 Functional status Patient at Baseline [facility] Work Phone: 01-27-2023 Functional status Patient at Baseline [facility] Work Phone: Mental Status Date Assessment Result Facility 01-29-2023 Cognitive function Cognitive Sta tus Patient at Baseline [facility] Work Phone: 01-27-2023 Cognitive function Cognitive Sta tus Patient at Baseline [facility] Work Phone: Clinical Notes 05-29-2021 to 01-18-2024 Michael Strauss DO - 01/18/2024 10:40 AM EDTPatient Comfort Strauss DO - 05/18/2023 11:00 AM ESTPatient Charles Avalos APRN-RE - 03/10/2023 10:30 AM EST Note Date & Type Note Facility 01-18-2024 History of Presen t illness Narrative Subjective Janelle Burt is a 83 y.o. female Chief Complaint Follow-up 83-year-old female returns for routine follow-up and is doing very well. She is overall improved from her hospitalization last year. She was hospitalized for transient atrial fibrillation, accelerated hypertension, small non-ST elevation ID. Catheterization reviewed today, at that time revealed minimal coronary disease and preserved LV function. She converted back to normal rhythm very quickly, without antiarrhythmic therapy. She was not discharged on antithrombotic therapy. She did not follow through with event monitoring as requested. She has accelerated hypertension today on repeat check at 170/80. She was discharged on losartan 50 mg daily she is currently on 25 mg daily. Recommendations: Will escalate losartan to 50 mg daily, repeat blood pressure check in 8 to 10 weeks, obtain a 7-day event monitor, follow-up in 8 months with nurse practitioner Review of Systems All other systems reviewed and are negative. Vitals: 01/18/24 1121 01/18/24 1124 01/18/24 1219 BP: (!) 164/98 (!) 162/100 (!) 170/100 BP Location: Left arm Right arm Left arm Patient Position: Sitting Sitting Sitting Pulse: 60 Weight: 60.8 kg (134 lb) Height: 1.626 m (5' 4 ) Objective Physical Exam Constitutional: Appearance: Normal appearance. HENT: Nose: Nose normal. Neck: Vascular: No carotid bruit. Cardiovascular: Rate and Rhythm: Normal rate. Pulses: Normal pulses. Heart sounds: Normal heart sounds. Pulmonary: Effort: Pulmonary effort is normal. Abdominal: General: Bowel sounds are normal. Palpations: Abdomen is soft. Musculoskeletal: General: Normal range of motion. Cervical back: Normal range of motion. Right lower leg: No edema. Left lower leg: No edema. Skin: General: Skin is warm and dry. Neurological: General: No focal deficit present. Mental Status: She is alert. Psychiatric: Mood and Affect: Mood normal. Behavior: Behavior normal. Thought Content: Thought content normal. Judgment: Judgment normal. Allergies Clonidine, Methylprednisolone, Cdpkuqf-kwv-yqw reductase inhibitors, Tati inhibitors, Amlodipine, Hydralazine, Lisinopril, and Sulfamethoxazole Current Medications Current Outpatient Medications: aspirin 81 mg EC tablet, Take 1 tablet (81 mg) by mouth once daily., Disp: , Rfl: CALCIUM CARBONATE-VITAMIN D3 ORAL, Take 1 tablet by mouth once daily., Disp: , Rfl: fenofibrate (Tricor) 54 mg tablet, TAKE 1 TABLET BY MOUTH DAILY, Disp: 90 tablet, Rfl: 3 levothyroxine (Synthroid, Levoxyl) 100 mcg tablet, Take 1 capsule by mouth once daily in the morning. Take before meals., Disp: , Rfl: metoprolol tartrate (Lopressor) 25 mg tablet, Take 1 tablet (25 mg) by mouth 2 times a day., Disp: , Rfl: nitroglycerin (Nitrostat) 0.4 mg SL tablet, Place 1 tablet (0.4 mg) under the tongue every 5 minutes if needed for chest pain. Go to ER or call 911 after 3rd dose., Disp: , Rfl: spironolactone (Aldactone) 25 mg tablet, Take 1 tablet (25 mg) by mouth once daily., Disp: , Rfl: Assessment/Plan 1. Accelerated hypertension Follow Up In Cardiology 2. ASHD (arteriosclerotic heart disease) 3. Paroxysmal atrial fibrillation (Multi) 4. Former smoker 5. Body mass index (BMI) 23.0-23.9, adult Scribe Attestation By signing my name below, Abi Magallon LPN, Scribe attest that this documentation [...] discussion and plan. documented in this encounter [facility] Work Phone: 01-18-2024 Instructions Leslie Spence LPN - 01/18/2024 10:40 AM EDT Please bring all medicines, vitamins, and herbal supplements with you when you come to the office. Prescriptions will not be filled unless you are compliant with your follow up appointments or have a follow up appointment scheduled as per instruction of your physician. Refills should be requested at the time of your visit. documented in this encounter [facility] Work Phone: 05-18-2023 History of Presen t illness Narrative [...] normal. Judgment: Judgment normal. Allergies Clonidine, Methylprednisolone, Iidpxtu-isg-uvc reductase inhibitors, Tati inhibitors, Amlodipine, Hydralazine, Lisinopril, [...] Scribe Attestation By signing my name below, I, Rasheed Trinidad LPN attest that this documentation has been prepared [...] discussion and plan. documented in this encounter [facility] Work Phone: 05-18-2023 Instructions Abi Veronica [...] of your visit. documented in this encounter [facility] Work Phone: 03-10-2023 Evaluation + Plan note Associated Problem(s): Chronic renal disease, stage III (CMS/HCC) Recent creatinine 1.4 Follows annually with nephrology [facility] Work Phone: 03-10-2023 Evaluation + Plan note Associated Problem(s): Cardiac and Vasculature January 2023 hospitalization due to jaw pain and accelerated hypertension January 28, 2023 cardiac cath with insignificant coronary artery disease (No formal report, taken from discharge summary) [facility] Work Phone: 03-10-2023 Evaluation + Plan note Associated Problem(s): Paroxysmal atrial fibrillation (CMS/HCC) Remote history of transient event Recurrent transient atrial fibrillation during January 2023 hospitalization Reports being symptomatic and shaking inside Denies any recurrence [facility] Work Phone: 03-10-2023 Miscellaneous Notes Associated [...] with recent changes documented in this encounter [facility] Work Phone: 03-10-2023 Evaluation + Plan note Associated Problem(s): Accelerated hypertension Optimal in office with recent changes [facility] Work Phone: 03-10-2023 History of Presen t illness Narrative Chief Complaint Getting used to my blood pressure Reason for Visit Patient presents to the office today for outpatient follow-up for hospital follow-up. Last evaluated in clinic by Dr. Strauss December 2022. Patient was recently hospitalized at [facility]. The patient was seen in Cardiology consult with subsequent cardiovascular management by [facility]. Hospitalization records have been reviewed. Reason for Cardiology Consultation: Jaw pain, accelerated hypertension transient atrial fibrillation. Consulting Nibbler Operator: Dr. Strauss Cardiovascular testing: Cardiac catheterization Changes [...] is in agreement to proceed with 30-day [facility] [employer] to assess for A-fib burden. Patient reports [...] Reactions Clonidine Shortness of breath Methylprednisolone Anaphylaxis Eryqazb-Eft-Xhr Reductase Inhibitors Myalgia Tati Inhibitors Rash Amlodipine [...] Dr. Strauss 8 weeks Adrien Avalos MSN, MANAGER OF CARE-SENIOR LINUX SYSTEMS ENGINEER, PMHNP-[facility] Please excuse any errors in grammar or translation related to this dictation. Voice recognition software was utilized to prepare this document. documented in this encounter [facility] Work Phone: 03-10-2023 Instructions RYANNE Neumann [...] new symptoms arise. Dr. Strauss 8 weeks documented in this encounter [facility] Work Phone: 02-24-2023 Evaluation note Encounter Date Diagnosis Assessment Notes Jan, Hypothyroidism, unspecified (ICD-10 - E03.9) [facility] Other 11-07-2023 Evaluation note* Encounter Date Diagnosis Assessment Notes Treatment Notes Treatment Clinical Notes Jan, Hypothyroidism, unspecified (ICD-10 - E03.9) Pt requests a med refill for chronic problem. Jan, CAD in [place] artery (ICD-10 - I25.10) Pt notes improvement in symptoms. Has scheduled appt with Cardiology for followup. [facility] Other 11-03-2023 Hospital Discharge instructions Additional Instructions DISCHARGE INSTRUCTIONS FOR CARDIAC BAND TOP MAKER PHONE NUMBER OF YOUR PHYSICIAN: [phone] PROCEDURE: Heart Cath The following instructions have [...] cold, numb, blue or white, call the raw cheese worker immediately. 4. ACTIVITY: You are advised to [...] bottle, follow the instructions on the bottle. [facility] is not responsible for incorrect prescription information provided by the patient during their visit. Do not stop your medications without consulting your health care provider. Please take the list with you to your next doctor's appointment.[facility] Work Phone: 1(962) 220-621211-02-2023 Progress note Author Elsa Amin [facility] January 28, 2023 3:27pm Note Date/Time January 28, 2023 3 :27pm [facility] [address] [place] [address] Hospitalist Progress Note Signed Patient: Janelle Burt MR#: [id number] : 1940 Acct:[id number] Age/Sex: 82 / F Adm Date: 3 Loc: Room: [address] [place] [address] Type: ADM IN Attending Dr: Elsa Amin [...] Medrol] Allergy (Verified 01/27/23 08:01) Unknown Reaction Xxdfwkq-FXE-ToG Reductase Inhibitor [Rcdaufw-Yzn-Mqe Reductase Inhibitor] Allergy (Verified 01/27/23 08:01) Unknown [...] fibrillation. Repeat ECG 1 hour later showed amish of sinus rhythm with first-degree AV block. Chest x-ray showed linear scarring at the left lung base. -[id number] equals 5. Recommend anticoagulation. -BNP elevated to [...] 1043 Signed By: <Electronically signed by Elsa Amin MD> 01/28/[address] [place] [address] Ctr Work Phone: 1(859) 811-672111-02-2023 [facility] Consult note Author Sherron Strauss [facility] January 27, 2023 3:48pm Note Date/Time January 27, 2023 3 :36pm [facility] [address] [place] [address] Cardiology Consult Note Signed Patient: Janelle Burt MR#: [id number] : 1940 Acct:[id number] Age/Sex: 82 / F Adm Date: 3 Loc: Room: [address] [place] [address] Type: ADM INOo Attending Dr: Elsa Amin [...] mild coronary disease by remote heart catheterization [id number] which included renal angiography with no evidence [...] make up place for her on the Sports Clerk schedule tomorrow; if she declines we will arrange outpatient stress imaging on appropriate medical therapy. Review of Systems Review of Systems All other systems reviewed & are negative unless noted below or in HPI Cardiovascular Cardiovascular: Reports as per HPI and Reports radiating jaw, neck or arm pain [facility] History (Updated 01/27/23 @ 15:48 by [...] Medrol] Allergy (Verified 01/27/23 08:01) Unknown Reaction Hwvqmki-LTA-WuC Reductase Inhibitor [Oevlwjm-Ucw-Hrb Reductase Inhibitor] Allergy (Verified 01/27/23 08:01) Unknown [...] x10E3/uL Lymph # (Auto) 1.6 (1.00-4.8) x10E3/uL Harney # (Auto) 0.5 (0.0-0.8) x10E3/uL Eos # [...] <Electronically signed by Sherron Strauss DO> 01/27/23 1542 [facility] Work Phone: 1(273) 688-845511-01-2023 History and physical note Author Elsa Amin [facility] January 27, 2023 2:57pm Note Date/Time January 27, 2023 2 :57pm [facility] [address] [place] [address] Hospitalist H&P Signed Patient: Janelle Burt MR#: [id number] : 1940 Acct:[id number] Age/Sex: 82 / F Adm Date: 3 Loc: Room: [address] [place] [address] Type: ADM INOo Attending Dr: Elsa Amin [...] to sinus rhythm with first-degree AV block. [id number] equals 5. She was admitted for further observation and cardiology evaluation. Review of Systems Review of Systems All other systems reviewed & are negative unless noted below or in HPI Review of systems: Neuro: Reports numbness/tingling in extremities. Denies dizziness/lightheadedness Pulmonary: Denies dyspnea, cough, wheezing. Cardiac: Denies chest pain/pressure, edema, palpitations. GI: Denies abdominal pain, N/V, constipation and diarrhea [facility] Medical History (Updated 01/27/23 @ 11:21 [...] Medrol] Allergy (Verified 01/27/23 08:01) Unknown Reaction Gzxgzic-LWZ-UwU Reductase Inhibitor [Auasbvz-Pmk-Rcb Reductase Inhibitor] Allergy (Verified 01/27/23 08:01) Unknown [...] % (Auto) 23.7 % (.) 01/27/23 08:12 Harney % (Auto) 7.4 % (.) 01/27/23 08:12 Eos % (Auto) 1.7 % (.) 01/27/23 08:12 Baso % (Auto) 1.0 % (.) 01/27/23 08:12 Nucleat RBC Rel Count 0.1 /100 WBC (0-0.5) 01/27/23 08:12 Neut # (Auto) 4.6 x10E3/uL (1.8-7.7) 01/27/23 08:12 Lymph # (Auto) 1.6 x10E3/uL (1.00-4.8) 01/27/23 08:12 Harney # (Auto) 0.5 x10E3/uL (0.0-0.8) 01/27/23 08:12 [...] fibrillation. Repeat ECG 1 hour later showed amish of sinus rhythm with first-degree AV block. Chest x-ray showed linear scarring at the left lung base. -[id number] equals 5. Recommend anticoagulation. -BNP elevated to [...] <Electronically signed by Elsa Amin MD> 01/27/23 0146 [facility] Work Phone: 1(246) 588-566010-09-2023 Evaluation note* Encounter Date Diagnosis Assessment Notes [...] PCP for lipid profile and LFTs monitoring Shustir Other 08-08-2023 Evaluation note* Encounter Date Diagnosis [...] adequately controlled. Oct, Other [facility]. Shustir Other 03-16-2023 Evaluation note* Encounter Date Diagnosis [...] supplement. We will continue to monitor PTH. Shustir Other 09-12-2022 Evaluation note* Encounter Date Diagnosis [...] supplement. We will continue to monitor PTH. Shustir Other 03-03-2022 Evaluation note* Encounter Date Diagnosis [...] primary polydipsia. She drinks plenty of fluids. [facility] Other Evaluation noteNo assessment information available [facility] Work Phone: Evaluation note* Diagnosis Onset Date Resolution Status Atrial fibrillation acute Back pain with radiation acu te Hypertension acute Hypothyroid acute [facility] Work Phone: Evaluation note* Diagnosis Onset Date Resolution Status Atrial fibrillation acute Back pain with radiation acu te Chest pain acute Elevated troponin acute Hypertension acute Hypothyroid acute NSTEMI (non-ST elevated myocardial infarction) acute [facility] Work Phone: [facility]No [facility] Other Evaluation note* Diagnosis Paroxysmal atrial fibrillation (CMS/HCC)- Primary Atrial fibrillation Chest pain, unspecified type Accelerated hypertension Essential hypertension, malignant Stage 3a chronic kidney disease (CMS/HCC) BMI 22.0-22.9, adult documented in this encounter [facility] Work Phone: Evaluation note* Diagnosis Paroxysmal atrial fibrillation (CMS/HCC) Atrial fibrillation Accelerated hypertension Essential hypertension, malignant Mixed hyperlipidemia Stage 3b chronic kidney disease (CMS/HCC) documented in this encounter [facility] Work Phone: Evaluation note* Diagnosis Onset Date Resolution Status Atrial fibrillation acute CKD (chronic kidney disease) stage 3, GFR 30-59 ml/min acute Hyperlipidemia acute [id number] acute Hyponatremia acute Hypoparathyroidism acute [facility] Work Phone: Evaluation note* Diagnosis Onset Date Resolution Status Hypothyroid acute [facility] Work Phone: Evaluation note* Diagnosis Paroxysmal atrial fibrillation (Multi)- Primary Atrial fibrillation Chest pain, unspecified type Accelerated hypertension Essential hypertension, malignant Stage 3a chronic kidney disease (Multi) BMI 22.0-22.9, adult Accelerated hypertension Essential hypertension, malignant ASHD (arteriosclerotic heart disease) Coronary atherosclerosis of unspecified type of vessel, [place] or graft Paroxysmal atrial fibrillation (Multi) Atrial fibrillation Former smoker Personal history of tobacco use, presenting hazards to health Body mass index (BMI) 23.0-23.9, adult documented in this encounter [facility] Work Phone: History general Narrative - Reported* Type Description Date Medical History hyperlipidemia Medical History hypertension Medical History cervical cancer Surgical History partial hysterectomy Surgical History appendectomy Surgical History cataract Hospitalization History SEE ABOVE Shustir Other [place] general Narrative - Reported* Type Description Date Medical History hyperlipidemia Medical History hypertension Medical History cervical cancer Surgical History partial hysterectomy Surgical History appendectomy Surgical History cataract Surgical History TORN RETINA IN LEFT EYE Hospitalization History SEE ABOVE Shustir Other Hiszffg general Narrative - Reported* Type Description Date Medical History hyperlipidemia Medical History hypertension Medical History cervical cancer Surgical History partial hysterectomy Surgical History appendectomy Surgical History cataract Surgical History TORN RETINA IN LEFT EYE Surgical History Heart Cath 01/2023 Hospitalization History SEE ABOVE Hospitalization History [facility] 01/2023 Shustir Other History of Present illness Narrative* The [...] sporadically. Blood pressure control has been good. -[facility] 250 DO Work Phone: Reason for referral (narrative)* Consultation (Routine) - Authorized Specialty Diagnoses / Procedures Referred By Contac t Referred To Contact Cardiology Diagnoses Paroxysmal atrial fibrillation (CMS/HCC) Procedures Follow Up In Cardiology Adrien Avalos APRN-RE [address] [facility] 2, [address] [place] [address] Michael Strauss, DO [address] [facility] 2, [address] [address] Referral ID Status Reason Start Date Expiration Date V isits Requested Visits Authorized [id number] Authorized 03/10/2023 03/09/2024 1 1 * Cardiovascular (Routine) - Pending Review Specialty Diagnoses / Procedures Referred By Contac t Referred To Contact Cardiology Diagnoses Paroxysmal atrial fibrillation (CMS/HCC) Procedures Holter Or Event Cooler Supervisor Adrien Avalos APRN-CNP [address] [facility] 2, [address] [address] Referral ID Status Reason Start Date Expiration Date V isits Requested Visits Authorized [id number] Pending Review 03/10/2023 03/09/2024 1 1 [facility] Work Phone: Reason for referral (narrative)* Consultation (Routine) - Authorized Specialty Diagnoses / Procedures Referred By Contac t Referred To Contact Cardiology Diagnoses Paroxysmal atrial fibrillation (CMS/HCC) Procedures Follow Up In Cardiology RichardMichael, DO [address] [facility] 2, [address] [address] Adrien Avalos APRN-SENIOR LINUX SYSTEMS ENGINEER [address] [place] [address] [address], [address] [address] Referral ID Status Reason Start Date Expiration Date V isits Requested Visits Authorized [id number] Authorized 05/18/2023 05/17/2024 1 1 [facility] Work Phone: Chief Complaint JANELLE BURT [...] sister has been taking care of her [employer] [facility] She has underlying accelerated hypertension, known chronic [...] sister has been taking care of her [employer] [facility]). She has underlying accelerated hypertension, known chronic [...] neoplasm of breast Unknown Myocardial infarction Unknown Relationship Condition Age at Onset Recorded Date/T julieta father Cerebrovascular accident (CVA) Unknown Not Specified Cerebrovascular accident (CVA) Unknown sister Malignant neoplasm of breast Unknown Myocardial infarction Unknown daughter Malignant neoplasm Unknown father Unknown History of stroke Unknown Not Specified History of stroke Unknown Unknown sister Malignant neoplasm Unknown Heart disease Unknown Relationship Condition Age at Onset Recorded Date/T julieta father Cerebrovascular accident (CVA) Unknown mother Cerebrovascular accident (CVA) Unknown sister Malignant neoplasm of breast Unknown Myocardial infarction Unknown daughter Malignant neoplasm Unknown father Unknown History of stroke Unknown mother History of stroke Unknown Unknown sister Malignant neoplasm Unknown Heart disease Unknown Chief Complaint and Reason for Visit Chief Complaint BP high Chief Complaint ill Reason for Visit Atrial fibrillation Back pain with radiation Hypertension Hypothyroid Chief Complaint ill Reason for Visit Atrial fibrillation Back pain with radiation Chest pain Elevated troponin Hypertension Hypothyroid NSTEMI (non-ST elevated myocardial infarction) Chief Complaint RENAL 6 month f/u Reason for Visit Atrial fibrillation CKD (chronic kidney disease) stage 3, GFR 30-59 ml/min Hyperlipidemia [id number] Hyponatremia Hypoparathyroidism Chief Complaint routine Reason for Visit Hypothyroid Chief Complaint routine Ear irrigation Reason for Visit Hypothyroid Advance Directives No Advanced Directives Records Found Advance Directive Response Recorded Date/ Time Advance Directives No February 7:44pm Summary Purpose Additional Source Comments REASON FOR VISIT (unrecogniz ed section and content) Reason Comments Hospital Follow-up [facility] 01/28 Specialty Diagnoses / Procedures Referred By Lino t Referred To Contact Cardiology Diagnoses Chest pain, unspecified type Procedures Follow Up In Cardiology Michael Strauss, DO [address] [facility] [address], [address] [address] Michael Strauss, DO [address] [place] [address] 2, [address] [place] [address] Referral ID Status Reason Start Date Expiration Date V isits Requested Visits Authorized [id number] Authorized 01/28/2023 01/28/2024 1 1 Reason Comments Follow-up Never had [facility]. Specialty Diagnoses / Procedures Referred By Contac t Referred To Contact Cardiology Diagnoses Paroxysmal atrial fibrillation (CMS/HCC) Procedures Follow Up In Cardiology Adrien Avalos, MANAGER OF CARE-SENIOR LINUX SYSTEMS ENGINEER [address] [facility] 2, [address] [place] [id number] Michael Strauss, DO [address] [facility] [address], [address] [place] [address] Referral ID Status Reason Start Date Expiration Date V isits Requested Visits Authorized [id number] Authorized 03/10/2023 03/09/2024 1 1 Reason Comments Follow-up 1 year Specialty Diagnoses / Procedures Referred By Contac t Referred To Contact Cardiology Diagnoses Accelerated hypertension Procedures Follow Up In Cardiology Michael Strauss DO Phone: tel: fax: Michael Strauss DO Phone: tel: fax: Referral ID Status Reason Start Date Expiration Date V isits Requested Visits Authorized [id number] Authorized 01/14/2023 01/14/2024 1 1 Care Teams (unrecognized sec tion and content) Team Status: Active Member Role Status Dates Antonino Gustafson MD Primary Care Provider Active Team Status: Inactive Member Role Status Dates Antonino Gustafson MD Primary Care Provide r, Attending Provider Active Start: December 17, 2023 End: December 17, 2023 Team Status: Active Member Role Status Dates Antonino Gustafson MD Primary Care Provider Active Start: July 27, 2023 Liliya Cox MD Attending Provider Active Start : July 27, 2023 Team Status: Inactive Member Role Status Dates Antonino Gustafson MD Primary Care Provider Active Start: August 05, 2023 End: August 05, 2023 Liliya Cox MD Attending Provider Active Start : August 05, 2023 End: August 05, 2023 Team Status: Inactive Member Role Status Dates [...] Oconnor MD Other Provider Active Camryn Bosch [facility] Other Provider Active Svitlana Reyes MD Other Provider Active Team Status: Inactive Member Role Status Dates Antonino Gustafson MD Primary Care Provider Active Ortiz Cota DO Emergency Provider Active Team Status: Active Member Role Status Dates Antonino Gustafson MD Primary Care Provider Active Willie Lyon DO Emergency Provider Active Elsa Amin MD Admit Provider, Attending Provider Active Livestock Yard Supervisor Relationship Specialty Start Date End Date Antonino Gustafson MD PCP - General 03/29/1998 Livestock Yard Supervisor Relationship Specialty Start Date End Date Antonino Gustafson MD PCP General 03/29/1998 Team Status: Inactive Member Role Status Dates Antonino Gustafson MD Primary Care Provider Active Start: December 22, 2023 End: December 22, 2023 Faby Lira APRN Attending Provider Active S tart: December 22, 2023 End: December 22, 2023 Livestock Yard Supervisor Relationship Specialty Start Date End Date Antonino Gustafson MD [address] [place] [address] [place] [address] PCP General 03/29/1998 Goals (unrecognized section and content) Goals may be documented in a n alternate section INFORMATION SOURCE (unrecogn ized section and content) DATE CREATED AUTHOR 03/21/2022 [facility] DATE CREATED AUTHOR AUTHOR'S ORGANIZ ATION 03/21/2022 [employer] DATE CREATED AUTHOR AUTHOR'S ORGANIZ ATION 06/05/2022 [facility] DATE CREATED AUTHOR AUTHOR'S ORGANIZ ATION 05/07/2023 [facility] DATE CREATED AUTHOR AUTHOR'S ORGANIZ ATION 01/30/2024 [facility] FOR RECORDS PERTAINING TO PATIENTS WHO ARE [...] BE BASED ON THE PRIMARY CLINICAL RECORDS. [facility]. provides no warranty or guarantee of the accuracy or completeness of information in this document.
--- NOTE | 2024-02-05 10:12 | CT_ITS ---
The [address] [address] Patient Name: SYMONE BURT MRN: [id number] date: 1940 Sex: F Assigned Patient Location: ER Current Patient Location: ER Accession/Order Number: [id number] Exam Date: 02/05/2024 11:34 Report Date: 02/05/2024 11:58 At the request of: EUFEMIA LAUGHLIN Procedure: CT head/brain wo con EXAM: CT head/brain wo con HISTORY: Headache since yesterday, no trauma COMPARISON: None available at the time of dictation. TECHNIQUE: Axial unenhanced CT images were obtained through the brain. Individualized dose optimization technique was used for the performed procedure by employing the following: Automated exposure control, adjustment of the mA and/or kV according to patient's size, and/or the use of the iterative construction technique. Coronal and sagittal reformats were performed. FINDINGS: No acute intracranial abnormality. No acute infarct, hemorrhage or mass. No midline shift. Fernandez-white matter differentiation is preserved. Mild cerebral volume loss. No acute osseous abnormality. Paranasal sinuses are clear. Mastoid air cells are open. Encephalomalacia of the right occipital lobe. Orbits are normal. CT/CT head/brain wo con IMPRESSION: 1. No acute intracranial abnormality. No acute intracranial infarct visualized by this modality. (MRI is more sensitive). No acute intracranial hemorrhage Electronically authenticated by: SHI PEACOCK Date: 02/05/2024 11:58
--- NOTE | 2024-02-05 10:13 | ED_ITS ---
HPI HPI - General Adult General Chief complaint: Weakness Stated complaint: GENERAL WEAKNESS Time Seen by Provider: 02/05/24 10:01 History of Present Illness HPI narrative: 83-year-old female presents for headache and trouble with her vision. She was fine until her eye doctor's appointment yesterday. Her eyes were dilated and since then everything has been blurry and now she has a headache as well. No trauma or fever. No weakness or numbness in her arms or legs and she has no cough or chest pain or shortness of breath. Related Data Home Medications ?Medication ?Instructions ?Recorded ?Confirmed aspirin 81 mg tablet,delayed 81 mg PO DAILY 10/23/22 02/05/24 release (Adult Low Dose Aspirin) fenofibrate 54 mg tablet 54 mg PO DAILY 10/23/22 02/05/24 levothyroxine 112 mcg tablet 112 mcg PO DAILY 10/23/22 02/05/24 losartan 25 mg tablet 25 mg PO DAILY 10/23/22 02/05/24 metoprolol tartrate 50 mg tablet 50 mg PO DAILY 10/23/22 02/05/24 spironolactone 25 mg tablet 25 mg PO DAILY 10/23/22 02/05/24 nitroglycerin 0.4 mg sublingual 0.4 mg sublingual Q5M 02/05/24 02/05/24 tablet Previous Rx's ?Medication ?Instructions ?Recorded tffsmhydcb-mksltgziqvfkf-nusxxhbt 1 cap PO Q6H PRN pain 5 days #20 02/05/24 50 mg-300 mg-40 mg capsule caps (Fioricet) Allergies Allergy/AdvReac Type Severity Reaction Status Date / Time amlodipine (From Norvasc) Allergy Severe Verified 10/23/22 17:09 ciprofloxacin Allergy Severe Verified 10/23/22 17:09 clonidine (From Catapres) Allergy Severe Verified 10/23/22 17:09 lisinopril Allergy Severe Verified 10/23/22 17:09 Vgsbsbx-NDM-ZiT Reductase Allergy Severe Verified 10/23/22 17:09 Inhibitor medro dose pack Allergy Severe Uncoded 10/23/22 17:09 Opioid HPI Opioid Management Most Recent Opioid Data: Last Pain Scale 2 02/05/24 10:26 02/05/24 Last MAR Pain Assessment 02/05/24 10:26 Review of Systems ROS Narrative A ten point review of systems is negative except as noted above. PFSH PFSH Medical History (Updated 02/05/24 @ 12:06 by John Patel MD) Hypothyroidism ?E03.9 - Hypothyroidism, unspecified (ICD-10) Hypertension ?I10 - Essential (primary) hypertension (ICD-10) Social History Little interest or pleasure in doing things: not at all Feeling down, depressed, or hopeless: not at all Exam Narrative Exam Narrative: Nurses note and vital signs reviewed and patient is not hypoxic. General: The patient appears well and in no apparent distress. Patient is resting comfortably on cart. Skin: Warm, dry, no pallor noted. There is no rash noted. Head: Normocephalic, atraumatic Eye: Normal conjunctiva, no drainage; pupils are not currently dilated Ears, Nose, Mouth, and Throat: oral mucosa is moist. Nares patent. Cardiovascular: Regular Rate and Rhythm Respiratory: Patient is in no distress, no accessory muscle use, lungs are clear to auscultation, no wheezing, rales or rhonchi Back: non-tender GI: Soft and nontender Musculoskeletal: The patient has no evidence of calf tenderness, no pitting ed graciela, symmetrical pulses noted bilaterally Neurological: A&O, normal speech Psychiatric: Cooperative Constitutional Vital Signs, click to edit/add: Last Vital Signs Temp 97.7 F 02/05/24 10:08 Pulse 58 L 02/05/24 12:03 Resp 18 02/05/24 12:03 BP 136/97 H 02/05/24 12:03 Pulse Ox 100 02/05/24 12:03 O2 Del Method Room Air 02/05/24 10:08 Course Vital Signs Vital signs: Vital Signs Temperature 97.7 F 02/05/24 10:08 Pulse Rate 67 02/05/24 10:08 Respiratory Rate 18 02/05/24 10:08 Blood Pressure 150/80 H 02/05/24 10:08 Pulse Oximetry 99 02/05/24 10:08 Oxygen Delivery Method Room Air 02/05/24 10:08 Temperature 97.7 F 02/05/24 10:08 Pulse Rate 58 L 02/05/24 12:03 Respiratory Rate 18 02/05/24 12:03 Blood Pressure 136/97 H 02/05/24 12:03 Pulse Oximetry 100 02/05/24 12:03 Oxygen Delivery Method Room Air 02/05/24 10:08 Medical Decision Making MDM Narrative Medical decision making narrative: Her workup including CAT scan of the head shows no acute findings. She is feeling improved after 2 mg of IV morphine and she is discharged home on Fioricet. Treatment diagnosis and follow-up were discussed with the patient and her family. Differential Diagnosis Differential Diagnosis: Nonspecific headache, ocular headache, intracranial hemorrhage Lab Data Lab results reviewed: Yes I reviewed the patient's lab results Labs: Lab Results 02/05/24 Range/Units 10:20 WBC 7.7 (4.0-11.0) 10^3/uL RBC 5.05 (4.20-5.40) 10^6/uL Hgb 15.2 (12.0-16.0) g/dL Hct 43.9 (36.0-48.0) % MCV 86.9 (81.0-99.0) fL MCH 30.1 (26.7-34.0) pg MCHC 34.6 (29.9-35.2) g/dL RDW 12.6 (11.0-15.0) % Plt Count 234 (150-450) 10^3/uL MPV 9.3 L (9.5-13.5) fL Neut % (Auto) 61.2 (43.0-75.0) % Lymph % (Auto) 27.8 (20.5-60.0) % [place] % (Auto) 9.3 (1.7-12.0) % Eos % (Auto) 1.2 (0.9-7.0) % Baso % (Auto) 0.4 (0.2-2.0) % Neut # (Auto) 4.7 (1.4-6.5) 10^3/uL Lymph # (Auto) 2.1 (1.2-3.8) 10^3/uL [place] # (Auto) 0.7 (0.3-0.8) 10^3/uL Eos # (Auto) 0.1 (0.0-0.7) 10^3/uL Baso # (Auto) 0.0 (0.0-0.1) 10^3/uL Abs Immat Gran (auto) 0.01 (0.00-0.03) 10^3/uL Imm/Tot Granulo (auto) 0.1 (0.0-0.5) % Sodium 132 L (136-145) mmol/L Potassium 4.1 (3.5-5.1) mmol/L Chloride 95 L (98-107) mmol/L Carbon Dioxide 26.7 (21.0-32.0) mmol/L Anion Gap 14.4 BUN 14.0 (7.0-18.0) mg/dL Creatinine 1.30 H (0.55-1.02) mg/dL Est GFR ( Amer) 47 L (>=60 mL/min/1.73m^2) Est GFR (Non-Af Amer) 39 L (>=60 mL/min/1.73m^2) BUN/Creatinine Ratio 10.8 Glucose 115 H (74-106) mg/dL Calcium 9.5 (8.5-10.1) mg/dL Imaging Data CT scan - head: Radiologist's impression: ITS Impressions Head CT 02/05/24 10:12 IMPRESSION: 1. No acute intracranial abnormality. No acute intracranial infarct visualized by this modality. (MRI is more sensitive). No acute intracranial hemorrhage Electronically authenticated by: SHI PEACOCK Date: 02/05/2024 11:58 Discharge Plan Discharge Chief Complaint: Weakness Clinical Impression: Headache Patient Disposition: Home, Self-Care Time of Disposition Decision: 12:06 Condition: Good Mode of Transportation: Private Vehicle Prescriptions / Home Meds: New xdannqxfil-vndkbqxdkxwiv-ibuv [Fioricet] 50-300-40 mg capsule 1 cap PO Q6H PRN (Reason: pain) 5 Days Qty: 20 0RF No Action nitroglycerin 0.4 mg tablet, sublingual 0.4 mg sublingual Q5M Rx Instructions: do not exceed 3 doses per episode fenofibrate 54 mg tablet 54 mg PO DAILY levothyroxine 112 mcg tablet 112 mcg PO DAILY metoprolol tartrate 50 mg tablet 50 mg PO DAILY spironolactone 25 mg tablet 25 mg PO DAILY aspirin [Adult Low Dose Aspirin] 81 mg tablet,delayed release (DR/EC) 81 mg PO DAILY losartan 25 mg tablet 25 mg PO DAILY Print Language: Austrian Instructions: Acute Headache (ED) Referrals: Hoda Talbot MD [Primary Care Provider] - 1 week
[2024-02-05] MEDS: MORPHINE SULFATE 2 MG/ML SYRINGE IV (10:26)
[2024-02-05 10:29] LABS: Basophils Percent Auto 0.4 % (0.2-2.0); Eosinophils Absolute Auto 0.1 10^3/uL (0.0-0.7); Eosinophils Percent Auto 1.2 % (0.9-7.0); Hematocrit 43.9 % (36.0-48.0); Hemoglobin 15.2 g/dL (12.0-16.0); Immature Granulocytes Abs Auto 0.01 10^3/uL (0.00-0.03); Immature Granulocytes Pct Auto 0.1 % (0.0-0.5); Lymphocytes Absolute Auto 2.1 10^3/uL (1.2-3.8); Lymphocytes Percent Auto 27.8 % (20.5-60.0); Mean Corpuscular HGB Conc 34.6 g/dL (29.9-35.2); Mean Corpuscular Hemoglobin 30.1 pg (26.7-34.0); Mean Corpuscular Volume 86.9 fL (81.0-99.0); Mean Platelet Volume 9.3 fL (9.5-13.5); Monocytes Absolute Auto 0.7 10^3/uL (0.3-0.8); Monocytes Percent Auto 9.3 % (1.7-12.0); Neutrophils Absolute Auto 4.7 10^3/uL (1.4-6.5); Neutrophils Percent Auto 61.2 % (43.0-75.0); Platelet Count 234 10^3/uL (150-450); Red Blood Count 5.05 10^6/uL (4.20-5.40); Red Cell Distribution Width 12.6 % (11.0-15.0); White Blood Count 7.7 10^3/uL (4.0-11.0)
[2024-02-05 10:34] LABS: Anion Gap 14.4; BUN Creatinine Ratio 10.8; Calcium 9.5 mg/dL (8.5-10.1); Carbon Dioxide 26.7 mmol/L (21.0-32.0); Chloride 95 mmol/L (98-107); Estimated GFR (African America 47 (>=60 mL/min/1.73m^2); Estimated GFR (Non-African Ame 39 (>=60 mL/min/1.73m^2); Glucose 115 mg/dL (74-106); Potassium 4.1 mmol/L (3.5-5.1); Sodium 132 mmol/L (136-145)
[2024-02-05 12:03] VITALS: BP 136/97; PULSE 58; O2SAT 100
== END 2024-02-05 12:14 | disposition home or self-care (01) ==
PROVIDERS: Emergency Provider Emergency Medicine; PCP Family Medicine
DX: R51.9 Headache, unspecified (principal)
CPT/HCPCS: 36415; 70450; 80048; 85025; 96374; 99284; J2270

== ENCOUNTER 2024-03-21 08:15 | Outpatient (OUT) | payer MEDICARE, OTHER, SELFPAY ==
--- OUTSIDE RECORDS SUMMARY | 2024-03-21 08:18 | XMS_ITS | CCD ---
Author Organization [facility] Care Team Providers Care Highway Engineering Teacher Name Role Phone Antonino Gustafson Unavailable Unavailable Unavailable Bhavna, Liliya Unavailable MD Antonino Gustafson Primary Care Provider DO Ortiz Cota Emergency Provider Sj, Dr. Antonino Macedo Primary Care Karleyv eli Avalso, RETURNS PROCESSOR Adrien Attending Unavailable Richard, Dr. Michael Ram [...] Provider MD Antonino Gustafson Primary Care Provider DO Willie Lyon Emergency Provider MD Elsa Amin Admit Provider MD Elsa Amin Attending Provider LILIANE Reyes Other Provider Unavailable DO Sherron Ramos Other Provider MD Ludwin Arias Other Provider [phone] MD Michael Carrasco Other Provider MD Chance Dennison Other Provider [phone] MD Juan Martin Other Provider AIMEE Cha Other Provider MD Allie Flores Other Provider MD Ricki Belloammed Nakristi Other Provider MD Adrienne Oconnor Other Provider Danitza [facility] Camryn Harris Other Provider [phone] MD Svitlana Reyes Other Provider [phone] Antonino Gustafson MD Primary Care Provider Antonino Gustafson MD Primary Care Provider [phone] Antonino Gustafson MD Primary Care Provider ADRIEN AVALOS Attending Unavailable MICHAEL RAMOS Referring Unavailable ANTONINO GUSTAFSON Primary Care Unavailable MICHAEL RAMOS Attending Unavailable ADRIEN AVALOS Referring Unavailable ANTONINO GUSTAFSON Primary Care Unavailable RICHARDMICHAEL S Attending Unavailable RICHARD MICHAEL S Referring Unavailable ANTONINO GUSTAFSON Primary Care Unavailable RICHARD, MICHAEL S Referring Unavailable ANTONINO GUSTAFSON Primary Care Unavailable Antonino Gustafson Attending Unavailable Antonino Gustafson Admitting Unavailable Antonino Gustafson MD Primary Care Provider PALMA RODRIGUEZ Attending Unavailable Rolando Zarco Attending Unavailable Willie Kearney Attending Unavailable Willie Kearney Admitting Unavailable Kamar Escobar Consulting Unavailable MD Kamar Escobar Consulting Unavailable [place], Kamar Consulting Unavailable [place], Kamar Consulting Unavailable [place], Kamar Consulting Unavailable [place], Kamar Consulting Unavailable [place], Kamar Consulting Unavailable [place], Kamar Consulting Unavailable [place], Kamar Consulting Unavailable Willie Kearney Attending Unavailable [place], Kamar Consulting Unavailable Willie Kearney Admitting Unavailable MD Kamar Escobar Consulting Unavailable [place], Kamar Consulting Unavailable [place], Kamar Consulting Unavailable [place], Kamar Consulting Unavailable [place], Kamar Consulting Unavailable [place], Kamar Consulting Unavailable [place], Kamar Consulting Unavailable [place], Kamar Consulting Unavailable ANTONINO GUSTAFSON Primary Care Physician Michael Worthington Attending Unavailable Allergies Allergy Classification Reported Allergen(s) Allergy Type Date of Onset Reaction(s) Facility (20 sources) amLODIPine; Translations: [Norvasc] Drug Allergy 023 [facility] (11 sources) Angiotensin Converting Enzyme (Tati) Inhibitors; Translations: [TATI Inhibitors] Allergy to drug (finding) 023 [place] [id number] Repository (14 sources) cloNIDine; Translations: [Rrlstddv-GCR-0 PTWK] Drug Allergy 023 Shortness of breath [place] [address] DO Work Phone: (13 sources) Hmg-Coa Reductase Inhibitors (Statins); Translations: [Statins] Allergy to drug (finding) Myalgia, Unknown [place] [address] DO Work Phone: (20 sources) hydrALAZINE; Translations: [hydrALAZINE] Drug Allergy 022 Diarrhea [facility] (20 sources) Lisinopril; Translations: [lisinopril] Drug Allergy 022 Rash [facility] (10 sources) methylPREDNISolone; Translations: [Medrol (Nestor) TABS] Drug Allergy Anaphylaxis [place] [address] DO Work Phone: (16 sources) Sulfamethoxazole; Translations: [sulfa] Drug Allergy 023 Rash [place] [address] DO Work Phone: (13 sources) Ciprofloxacin Drug Allergy 024 Unknown, Comment:joint pain [facility] (8 sources) cloNIDine Drug Allergy Unknown [facility] Other (20 sources) methylPREDNISolone; Translations: [METHYLPREDNISOLONE] Drug Allergy 022 Anaphylaxis [facility] (9 sources) amLODIPine; Translations: [AMLODIPINE] Drug Allergy Unknown Reaction [facility] (9 sources) cloNIDine; Translations: [CLONIDINE] Drug Allergy Unknown Reaction [facility] (8 sources) Sulfonamides (Antibiotic); Translations: [Sulfa (Sulfonamide Antibiotics)] Allergy to substance Unknown Reaction [facility] (8 sources) Orflbst-DPU-SuW Reductase Inhibitor; Translations: [Prvbwch-XUM-LxR Reductase Inhibitor] Allergy to substance Unknown Reaction [facility] (1 source) Amino Acids Drug Allergy 013 [facility] Repository (1 source) amLODIPine Drug Allergy 013 [facility] Repository (2 sources) black walnut pollen extract; Translations: [DWNMKNV-YTU-JRL REDUCTASE INHIBITORS] Drug Allergy 013 [facility] Repository (1 source) hydrALAZINE Drug Allergy 015 [facility] Repository (1 source) methylPREDNISolone Drug Allergy 015 [facility] Repository (1 source) Sulfonamides (Antibiotic) Drug allergy (disorder) 013 [facility] Repository (5 sources) Statins Depletion *DIETARY PRODUCTS/DIETARY MANAGE Propensity to adverse reactions Unknown [facility] Other (5 sources) Sulf-10 Drug allergy Unknown [facility] Other (3 sources) Angiotensin-convertin g enzyme inhibitor agent Drug Allergy 023 [facility] (3 sources) HMG-CoA reductase inhibitor Drug Allergy 023 Myalgia [facility] Work Phone: (2 sources) Sulfamethoxazole; Translations: [SULFAMETHOXAZOLE] Drug Allergy 023 [place] [address] Repository (1 source) Ciprofloxacin Drug Allergy [facility] Repository (1 source) hydrALAZINE Drug Allergy [facility] Repository (1 source) Lisinopril Drug Allergy [facility] Repository (1 source) methylPREDNISolone Drug Allergy [facility] Repository (1 source) Angiotensin-convertin g enzyme inhibitor agent Drug Allergy [facility] (1 source) Simvastatin Allergy to substance [facility] (1 source) Sulfamethoxazole / Trimethoprim Drug Allergy [facility] (7 sources) No Known Medication Allergies; Translations: [No Known Medication Allergies] Propensity to adverse reactions (disorder) [facility] Repository Medications Current Medications Medication Drug Class(es) Dates Sig (Normalized) Sig (Original) acetaminophen 300 mg / butalbital 50 mg / caffeine 40 mg oral capsule (1 source) Barbiturate, Central Nervous System Stimulant, Methylxanthine Start: 02-05-2024 take 1 capsule by mouth every six hours as needed for pain butalbital-aceta minophen-caffein e (Fioricet) 50-300-40 MG capsule TAKE 1 CAPSULE BY MOUTH EVERY 6 HOURS NEEDED FOR PAIN FOR 5 DAYS 02/05/2024 Active apixaban 5 mg oral tablet (2 sources) Factor Xa Inhibitor Start: 02-16-2024 End: 02-15-2025 take 1 tablet by mouth twice daily Eliquis 5 mg oral tablet 5 mg = 1 tab(s), Oral, BID, Refills(s) 0 Start Date: 03/07/24 Status: Ordered aspirin 81 mg delayed release oral tablet (20 sources) Platelet Aggregation Inhibitor, Nonsteroidal Anti-inflammatory Drug Start: 03-12-2017 take 1 tablet by mouth once daily aspirin 81 mg Oral EC Tab 81 mg = 1 tab(s), Oral, Daily, # 30 tab(s), Refills(s) 0 Start Date: 03/07/24 Status: Ordered take 1 tablet by summer th every twenty-four hours Aspirin 81 MG 1 tablet Orally Once a day Active atorvastatin 40 mg oral tablet (1 source) HMG-CoA Reductase Inhibitor Start: 03-07-2024 take 1 tablet by mouth at bedtime atorvastatin 40 mg Tab 40 mg = 1 tab(s), Oral, Bedtime, # 30 tab(s), Refills(s) 0, Pharmacy: [facility]/pharmacy #[id number], 167.6, cm, 03/06/24 15:03:00 EST, Height/Length Dosing, 58.3, kg, 03/06/24 15:03:00 EST, Weight Dosing Start Date: 03/07/24 Status: Ordered Calcium + D 315-200 MG-UNIT (8 sources) take 1 tablet by mouth once daily at mealtime Calcium + D [...] tablet by mouth once daily. 0 Active cefdinir 300 mg oral capsule (1 source) Cephalosporin Antibacterial Start: 02-17-2024 take 1 capsule by mouth in the morning cefdinir (Omnicef) 300 MG capsule Take 300 mg by mouth in the morning and 300 mg before bedtime. 02/17/2024 Active fenofibrate 54 mg oral tablet (20 sources) Peroxisome Proliferator Receptor alpha Agonist Start: 03-12-2017 take 1 tablet by mouth once daily fenofibrate 54 mg oral tablet 54 mg = 1 tab(s), Oral, Daily, # 30 tab(s), Refills(s) 0 Start Date: 03/07/24 Status: Ordered ipratropium bromide 0.021 mg/actuat metered dose nasal spray (1 source) Anticholinergic Start: 12-23-2023 take 1 spray(s) nasal route twice daily Ipratropium [place] 21 mcg (0.03 %) spray,non-aerosol Active 2 SPRAY INTRANASAL Twice daily December 22, 2023 11:00pm administer into each nostril levothyroxine sodium 0.1 mg oral tablet (20 sources) l-Thyroxine Start: 03-07-2024 take 1 tablet by mouth once daily levothyroxine 100 mcg (0.1 mg) Tab 100 mcg = 1 tab(s), Oral, Daily, # 90 tab(s), Refills(s) 0 Start Date: 03/07/24 Status: Ordered Start: 12-17-2023 levothyroxine (Synthroid, Levoxyl) 100 MCG tablet .COMPLEX 12/17/2023 Active Start: 09-06-2023 End: 12-17-2023 take 1 tablet by mouth once daily in the morning Levothyroxine 100 mcg tablet Active 0 .ROUTE .COMPLEX December 17, 2023 10:32am TAKE 1 TABLET BY MOUTH IN THE MORNING ONCE DAILY ON AN EMPTY STOMACH Start: 08-05-2023 End: 09-06-2023 take 1 tablet by mouth once daily Levothyroxine 100 mcg tablet Discontinued 100 MCG PO Daily August 05, 2023 9:49am September 06, 2023 3:35pm Start: 06-16-2023 End: 08-05-2023 take 1 tablet by mouth once daily in the morning Levothyroxine 100 mcg tablet Discontinued 0 .ROUTE .COMPLEX July 16, 2023 12:34pm August 05, 2023 9:51am TAKE 1 TABLET BY MOUTH ONCE A [...] MCG PO Daily at 0630 30 January 28, 2023 11:00pm June 16, 2023 12:52pm Start: 03-12-2017 End: 01-29-2023 Levothyroxine 100 mcg tablet Discontinued 112 MCG PO Daily March 12, 2017 12:00am January 29, 2023 9:46am Start: 03-12-2017 End: 01-29-2023 take 112 ug [...] (20 sources) Angiotensin 2 Receptor Kimmie Start: 12-22-2023 Losartan Active MG P O December 22, 2023 12:00am Start: 08-05-2023 Losartan 50 mg tablet Active 25 MG PO Daily August 05, 2023 9:50am Start: 08-05-2023 take 25 mg by mouth once daily Losartan Active 25 MG PO Daily August 05, 2023 10:50am Start: 05-18-2023 End: 01-18-2024 Losartan 25 mg tablet Active MG PO December 21, 2023 11:00pm Start: 01-27-2023 End: 01-17-2025 take 1 tablet by mouth once daily losartan 50 mg Tab 50 mg = 1 tab(s), Oral, Daily, # 30 tab(s), Refills(s) 0 Start Date: 03/07/24 Status: Ordered Start: 01-15-2022 take 1 tablet by summer once daily Losartan Potassium 50 MG Oral Tablet TAKE 1 TABLET DAILY. Quantity: 90 Refills: 3 Ordered: 12-Feb-2022 Michael Ramos DO Start : 15-Jan-2022 Active Start: 10-31-2021 End: 01-27-2023 take 1 tablet by mouth once daily Losartan 25 mg tablet Discontinued 25 MG PO Daily October 30, 2021 11:00pm January 27, 2023 1:38pm nitroglycerin 0.3 mg sublingual tablet (9 sources) Nitrate Vasodilator Start: 03-07-2024 nitroglyce rin 0.3 mg sublingual tablet 0.3 mg = 1 tab(s), SubLingual, q5min, PRN for chest pain, # 100 tab(s), Refills(s) 0 Start Date: 03/07/24 Status: Ordered Start: 01-28-2023 Nitroglycerin 0.4 mg tablet, sublingual Active 0.4 MG SUBLINGUAL Q5M as needed for chest pain January 27, 2023 11:00pm do not exceed 3 doses per episode spironolactone 25 mg oral tablet (20 sources) Aldosterone Antagonist Start: 03-12-2017 End: 01-14-2024 take 1 tablet by mouth once daily Spironolactone 25 mg tablet Active 25 MG PO Daily March 12, 2017 12:00am Start: 03-12-2017 take 12.5 mg by mout h once daily Spironolactone Active 12.5 MG PO Daily March 12, 2017 1:00am Completed/Discontinued Medications Medication Drug Class(es) Dates Sig (Normalized) Sig (Original) Calcium (10 sources) Phosphate Binder, Calcium Calcium 600 + D TABS TAKE 1 TABLET DAILY. Quantity: 0 Refills: 0 Ordered: 09-Jan-2021 DO Active cephalexin 500 mg oral capsule (7 sources) Cephalosporin Antibacterial Start: 03-12-2017 End: 01-27-2023 take 1 capsule by mouth three times daily Cephalexin (Keflex) 500 mg capsule Discontinued 500 MG PO Three times daily March 12, 2017 12:00am January 27, 2023 7:01am metoprolol tartrate 25 mg oral tablet (20 sources) beta-Adrenergic Kimmie [...] tablet 3 03/10/2023 03/09/2024 Active Start: 01-29-2023 End: 03-07-2024 metoprolol 25 mg = 1 tab(s), Tab, Oral, Stop date 03/07/24 11:46:06 AM EST, NOW, Start date 03/07/24 11:23:00 AM EST Start Date: 03/07/24 Stop Date: 03/07/24 Status: Completed Start: 12-17-2021 End: 03-10-2023 take 1 tablet [...] with food Orally Twice a day Active nebivolol 10 mg oral tablet (7 sources) Start: 03-12-2017 End: 01-27-2023 take 1 tablet by mouth twice daily Nebivolol (Bystolic) 10 mg tablet Discontinued 10 MG PO Twice daily March 12, 2017 12:00am January 27, 2023 7:03am tiZANidine 2 mg oral tablet (4 sources) Central alpha-2 Adrenergic Agonist Start: 11-03-2021 take 1 tablet by mouth twice daily as needed tiZANidine HCl - 2 MG Oral Tablet TAKE 1 TABLET BY MOUTH TWICE A DAY NEEDED Quantity: 20 Refills: 0 Ordered: 03-Nov-2021 DO Start : 03-Nov-2021 Active valsartan 320 mg oral tablet (7 sources) Angiotensin 2 Receptor Kimmie Start: 03-12-2017 End: 01-27-2023 take 1 tablet by mouth once daily Valsartan 320 mg tablet Discontinued 320 MG PO Daily March 12, 2017 12:00am January 27, 2023 7:03am Problems Active Problems Problem Classification Problem Date Documented Date Episodic/Chronic Acute cerebrovascular disease (3 sources) Cerebrovascular accident; Translations: [Cerebral infarction, unspecified] Onset: 4 03-06-2024 Chronic Acute myocardial infarction (8 sources) Myocardial infarction; Translations: [Non-ST elevation (NSTEMI) myocardial infarction] Onset: 4 Resolved: 4 01-28-2023 Chronic Blindness and vision defects (2 sources) Left homonymous hemianopsia; Translations: [Homonymous bilateral field defects, left side] Onset: 4 03-06-2024 Episodic Cardiac dysrhythmias (20 sources) Paroxysmal atrial fibrillation; [...] Coronary arteriosclerosis; Translations: [Atherosclerotic heart disease of [place] coronary artery without angina pectoris] Onset: 4 Chronic Deficiency and other anemia (8 sources) Anemia of renal disease; Translations: [Anemia in chronic kidney disease] Chronic Disorders of lipid metabolism (20 sources) Hyperlipidemia; Translations: [Other and unspecified hyperlipidemia] Onset: 3 Chronic Essential hypertension (20 sources) Malignant hypertension; Translations: [Malignant essential hypertension] Onset: 2 03-12-2017 Chronic Fluid and electrolyte disorders (10 sources) Hypo-osmolality and hyponatremia; Translations: [Hyponatremia] Onset: [...] ORIGN] Onset: 2 Resolved: 2 Chronic Other ear and sense organ disorders (1 source) Impacted cerumen; Translations: [Impacted cerumen, bilateral] 12-22-2023 Episodic Other ear and sense organ disorders (1 source) Impacted cerumen, bilateral; Translations: [Impacted cerumen] 12-22-2023 Episodic Other endocrine disorders (11 sources) Hypoparathyroidism; Translations: [Hypoparathyroidism, unspecified] 08-05-2023 Chronic Other endocrine disorders (4 sources) Hypoparathyroidism, unspecified; Translations: [Hypoparathyroidism] Onset: 2 Resolved: 2 Chronic Other injuries and conditions due to external causes (5 sources) History of fall; Translations: [History of falling] Episodic Other screening for suspected conditions (not mental disorders or infectious disease) (11 sources) Raised cardiac enzyme or marker; Translations: [Other specified abnormal findings of blood chemistry] 01-27-2023 Episodic Other upper respiratory disease (1 source) Nasal discharge; Translations: [Other specified disorders of nose and nasal sinuses] 12-23-2023 Episodic Other upper respiratory disease (1 source) Other specified disorders of nose and nasal sinuses; Translations: [Other disease of nasal cavity and sinuses] 12-17-2023 Episodic Peripheral and visceral atherosclerosis (13 sources) [...] sources) Backache with radiation; Translations: [Dorsalgia, unspecified] 01-27-2023 Episodic Sprains and strains (5 sources) Strain of muscle of left upper arm; Translations: [Strain of other muscles, fascia and tendons at shoulder and upper arm level, left arm, initial encounter] Episodic Thyroid disorders (20 sources) Hypothyroidism; Translations: [Unspecified acquired hypothyroidism] Onset: 4 Chronic Urinary tract infections (1 source) Urinary tract infection, site not specified; Translations: [Urinary tract infection, site not specified] Onset: 4 Episodic Past or Other Problems Problem Classification Problem Date Documented Da te Episodic/Chronic Nonspecific chest pain (9 sources) Chest pain; Translations: [Chest pain, unspecified] Onset: 03-10-2023 01-27-2023 Episodic Residual codes; unclassified (2 sources) Body mass index (BMI) 22.0-22.9, adult; Translations: [Body mass index (BMI) 22.0-22.9, adult] Onset: 03-10-2023 Episodic Unclassified (3 sources) Onset: 03-10-2023 Resolved: 01-18-2024 03-10-2023 Results Test Name Value Interpretation Reference Range Facility ED Note-Physicianon 03-10-20 ED Note-Physician ED Note-Physician Basic Information Time Seen: Julio Escalante PA-C 03/06/2024 14:57 Chief Complaint Pt to ED for vision changes. Has had issues intermittently since january. Went to [facility] who sent over for stroke workup. both eyes affected- one was complete, other was top and bottom. denies paresthesia, WARD. glucose 89 History of Present Illness 83-year-old female comes to the ED for evaluation of strokelike symptoms. The patient states she had a fall 1 month ago with associated head injury and loss of consciousness. Since that time she has been dealing with intermittent visual changes. She went to ophthalmology today was found to have acute vision loss in her left eye with concerns for cerebral infarct. Currently she complains of vision loss to the left eye only. She does have a mild associated headache. No other area of injury or concern. No weakness or paresthesias. No chest pain or shortness of breath. Review of Systems A 10 point review of systems is negative except as noted above. Medical and Surgical History: Reviewed and noted Social history: Lives at home Tobacco: Denies Physical Exam Vitals & Measurements T: 36.5 ???C(Oral) HR: 60(Peripheral) RR: 20 BP: 212/75 SpO2: 99% HT: 167.64 cm WT: 58.3 kg BMI: 20.74 Nurses notes and vital signs reviewed and patient is not hypoxic. General: The patient appears well, resting comfortably. Skin: Warm, dry. Head: Yellow ecchymosis to the left temporal area from striking her head on a wall 1 week ago Neck: No JVD. Eye: Normal conjunctiva. Ears, Nose, Mouth, and Throat: Moist mucous membranes. Cardiovascular: Strong distal pulses. Chest wall: Respiratory: Respirations are nonlabored. Back: Normal range of motion. Musculoskeletal: Normal ROM with no gross deformity. Gastrointestinal: Urological: Neurological: Awake and alert. No facial asymmetry. Speech is clear and appropriate. Follows commands. Visual field deficits out of the left eye. NIHSS 1 performed at 1457 Psychiatric: Cooperative. Medical Decision Making Patient presents with left-sided visual field deficits. NIHSS is 1, however symptoms have been ongoing for greater than 24 hours and she is not a thrombolytic candidate. Laboratory studies are reviewed and noted. EKG without ischemic changes. Chest x-ray shows no acute findings. CT of the brain is reviewed by the radiologist. Patient with age-indeterminate right occipital lobe infarct. This does correlate with her symptomology. Case is discussed with the hospitalist for admission. Assessment/Plan 1. CVA (cerebrovascular accident) (I63.9: Cerebral infarction, unspecified) Orders: BB Draw & Hold Cardiac Monitoring CBC w/ Auto Diff Communication Order Communication Order Comprehensive Metabolic Panel Continuous Pulse Oximetry CT Head or Brain w/o Contrast Dysphagia Screen ECG 12 Lead Adult ED Physician consult Hospitalist for continued care eGFR Extra SST Tube Oxygen Protocol PT & PTT Rapid Response Form Routine Capillary Glucose POC Stroke Quality Measures Troponin 0 Hr. UA with Cult Rflx XR Chest Single View Disposition Plan Patient Discharge Condition Disposition: Admitted to the hospital Condition: Improved and stable Counseled: Patient and/or family were counseled to workup, results, treatment plan and follow-up recommendations Discharge Prescription List Prescriptions No active prescription medications Follow-up No qualifying data available Attestation I performed a substantive part of the MDM during the patient???s E/M visit. I personally made or approved the documented management plan and acknowledge its risk of complications. (Independent Interpretation) My (EKG/X-Ray/US/CT) interpretation as above. (Discussion) Management/test interpretation discussed with APC. This report was transcribed using voice recognition software. Every effort was made to ensure accuracy, however, inadvertently computerized kitchen clerk mistakes may be present. Appropriate healthcare PPE was used in evaluating this patient. Problem List/Past Medical History Ongoing High blood pressure Historical No qualifying data Medications Inpatient No active inpatient medications Home No active home medications Allergies No Known Medication Allergies Social History Alcohol - Denies Alcohol Use, 03/06/2024 Substance Abuse - Denies Substance Abuse, 03/06/2024 Tobacco - Denies Tobacco Use, 03/06/2024 Lab Results WBC: 8.6 E9/L (03/06/24 15:17:00) RBC: 4.6 E12/L (03/06/24 15:17:00) HGB: 14.5 gm/dL (03/06/24 15:17:00) Hct: 40.7 % (03/06/24 15:17:00) MCV: 88.3 fL (03/06/24 15:17:00) MCH: 31.4 pg (03/06/24 15:17:00) MCHC: 35.6 gm/dL (03/06/24 15:17:00) RDW: 13.5 % (03/06/24 15:17:00) Platelet: 205 E9/L (03/06/24 15:17:00) MPV: 7.6 fL (03/06/24 15:17:00) Neutro Auto: 63 % (03/06/24 15:17:00) Lymph Auto: 25 % (03/06/24 15:17:00) Mcdonald Auto: 10.2 % (03/06/24 15:17:00) Eos Auto: 1 % (12/ (more content not included)... Normal [facility] Comment on above: Result Comment: Elec tronically Signed By: Julio Escalante PA-C\.br\Date and Time Signed: 03/06/24 16:46 EST\.br\Electronically Co-Signed By: Rolando Zarco DO\.br\Date and Time Co-Signed: 03/10/24 07:21 EST C Urineon 03-08-2024 Bacteria identified Cx Nom (U) Microbiology PROCEDURE: Urine Culture [R1] SOURCE: U CleanCatch BODY SITE: COLLECTED DATE/TIME: 03/06/2024 19:55 EST RECEIVED DATE/TIME: 03/06/2024 20:31 EST START DATE/TIME: 03/06/2024 20:31 EST FREE TEXT SOURCE: Julio Escalante PA-C, PA-C, Julio FINAL REPORTS Final Report [] Verified Date/Time: 03/08/2024 11:37 EST 1,000 cfu/ml Mixed skin contaminants Performing Locations R1: This test was performed at: [facility], [address] [place] [address], [id number] , Normal [facility] Comment on above: Performed By: #### [id number] #### [facility] [address] [place] [id number] Lab Miscellaneous-LCon 03-08 Lab Miscellaneous COMMENT Invalid Interpretation Code [facility] Comment on above: Result Comment: Test Ordered: [id number] Hemoglobin A1c Hemoglobin A1c 5.4 % Reference Range: 4.8-5.6 Prediabetes: 5.7 - 6.4 Diabetes: >6.4 Glycemic control for adults with diabetes: <7.0 Performed at: [facility] [address] [id number] PhD Tila Wasserman Performed By: #### 1 [id number] #### [facility] [facility] [address] [place] [address] [facility]24 Anion gap [Moles/Vol] 11 mmol/L Normal 6-16 [facility] Comment on above: Performed By: #### 2 [id number] #### [facility] [address] [place] [address] Calcium [Mass/Vol] 9.3 mg/dL Normal 8.9-11.1 [facility] Comment on above: Performed By: #### 2 [id number] #### [facility] [address] [place] [address] Chloride [Moles/Vol] 97 mmol/L Low 101-[address] [facility] Comment on above: Performed By: #### 2 [id number] #### [facility] [address] [place] [address] CO2 [Moles/Vol] 26 mmol/L Normal 21-31 [facility] Comment on above: Performed By: #### 2 [id number] #### [facility] [address] [place] [address] Creatinine [Mass/Vol] 0.9 mg/dL Normal 0.5-1.3 [facility] Comment on above: Performed By: #### 2 [id number] #### [facility] [address] [place] [address] Glucose [Mass/Vol] 109 mg/dL Normal 55-199 [facility] Comment on above: Performed By: #### 2 [id number] #### [facility] [address] [place] [address] Potassium [Moles/Vol] 3.8 mmol/L Normal 3.5-5.3 [facility] Comment on above: Performed By: #### 2 [id number] #### [facility] [address] [place] [address] Sodium [Moles/Vol] 130 mmol/L Low 135-145 [facility] Comment on above: Performed By: #### 2 [id number] #### [facility] [address] [place] [address] Urea nitrogen [Mass/Vol] 16 mg/dL Normal 5-21 [facility] Comment on above: Performed By: #### 2 [id number] #### [facility] [address] [place] [address] Urea nitrogen/Creatinine [Mass ratio] 18 No Units Normal 10-20 [facility] Comment on above: Performed By: #### 2 [id number] #### [facility] [address] [place] [address] CBC w/ Auto Diffon 4 Basophils/100 WBC (Bld) 0.5 % Normal 0.0-2.[address] [facility] Comment on above: Performed By: #### 2 [id number] #### [facility] [address] [place] [address] Basophils/Leukocytes Auto (Bld) [Pure # fraction] 0.0 E9/L Normal 0.0-0.2 [facility] Comment on above: Performed By: #### 2 [id number] #### [facility] [address] [place] [address] Eosinophils (Bld) [#/Vol] 0.1 E9/L Normal 0.0-0.5 [facility] Comment on above: Performed By: #### 2 [id number] #### [facility] [address] [place] [address] Eosinophils/100 WBC (Bld) 0.8 % Normal 0.0-8.0 [facility] Comment on above: Performed By: #### 2 [id number] #### [facility] [address] [place] [address] Erythrocyte distribution width (RBC) [Ratio] 13.6 % Normal 10.9-14.2 [facility] Comment on above: Performed By: #### 2 [id number] #### [facility] [address] [place] [address] Hematocrit (Bld) [Volume fraction] 42.2 % Normal 34.0-46.0 [facility] Comment on above: Performed By: #### 2 [id number] #### [facility] [address] [place] [address] Hemoglobin (Bld) [Mass/Vol] 15.0 g/dL Normal 12.0-16.0 [facility] Comment on above: Performed By: #### 2 656185 #### [facility] [address] [place] [address] Lymphocytes (Bld) [#/Vol] 1.2 E9/L Normal 1.0-4.0 [facility] Comment on above: Performed By: #### 2 284759 #### [facility] [address] [place] [address] Lymphocytes/100 WBC (Bld) 13.0 % Low 14.0-50.0 [facility] Comment on above: Performed By: #### 2 [id number] #### [facility] [address] [place] [address] MCH (RBC) [Entitic mass] 31.3 pg Normal 27.0-34.0 [facility] Comment on above: Performed By: #### 2 [id number] #### [facility] [address] [place] [address] MCHC (RBC) [Mass/Vol] 35.7 g/dL Normal 31.4-36.0 [facility] Comment on above: Performed By: #### 2 [id number] #### [facility] [address] [place] [address] MCV (RBC) [Entitic vol] 87.8 fL Normal 80.0-100.[address] [facility] Comment on above: Performed By: #### 2 [id number] #### [facility] [address] [place] [address] Monocytes (Bld) [#/Vol] 0.9 E9/L Normal 0.2-1.[address] [facility] Comment on above: Performed By: #### 2 [id number] #### [facility] [address] [place] [address] Neutrophils (Bld) [#/Vol] 7.2 E9/L Normal 2.0-7.5 [facility] Comment on above: Performed By: #### 2 [id number] #### [facility] [address] [place] [address] Neutrophils/100 WBC (Bld) 76.5 % High 36.0-75.0 [facility] Comment on above: Performed By: #### 2 [id number] #### [facility] [address] [place] [address] Platelet mean volume (Bld) [Entitic vol] 7.7 fL Normal 6.4-10.8 [facility] Comment on above: Performed By: #### 2 748819 #### [facility] [address] [place] [address] Platelets (Bld) [#/Vol] 218.0 E9/L Normal 150. 0-500. 0 [facility] Comment on above: Performed By: #### 2 756511 #### [facility] [address] [place] [address] RBC (Bld) [#/Vol] 4.8 E12/L Normal 4.3-5.9 [facility] Comment on above: Performed By: #### 2 193914 #### [facility] [address] [place] [address] WBC corrected for nucl RBC Auto (Bld) [#/Vol] 9.4 E9/L Normal 4.0-11.0 [facility] Comment on above: Performed By: #### 2 [id number] #### [facility] [address] [place] [address] CHEMISTRYOrdered By: SYSTEM SYSTEM on 03-07-2024 Anion gap [Moles/Vol] 11 mmol/L Normal 6 - 16 mEq/L [facility] Calcium [Mass/Vol] 9.3 mg/dL Normal 8.9 - 11. 1 mg/dL [facility] Chloride [Moles/Vol] 97 mmol/L Low 101 - 1 11 mmol/L [facility] Cholesterol [Mass/Vol] 160 mg/dL Normal 120 - 200 mg/dL [facility] Cholesterol in HDL [Mass/Vol] 49 mg/dL Invalid Interpretation Code [facility] Comment on above: Result Comment: '>= 60 LOW RISK' '<= 40 HIGH RISK' Cholesterol in LDL [Mass/Vol] 100 mg/dL Normal <=129mg/dL [facility] Cholesterol in VLDL [Mass/Vol] 21 mg/dL Normal 7 - 40 mg/dL [facility] CO2 [Moles/Vol] 26 mmol/L Normal 21 - 31 mmol/L [facility] Creatinine [Mass/Vol] 0.9 mg/dL Normal 0.5 - 1.3 mg/dL [facility] eGFR 63 mL/min/1.73 m2 Normal >=59mL/min /1.73 m2 [facility] Glucose [Mass/Vol] 109 mg/dL Normal 55 - 199 mg/dL [facility] Potassium [Moles/Vol] 3.8 mmol/L Normal 3.5 - 5.3 mmol/L [facility] Sodium [Moles/Vol] 130 mmol/L Low 135 - 145 mmol/L [facility] Triglyceride [Mass/Vol] 107 mg/dL Normal <=149mg/dL [facility] Urea nitrogen [Mass/Vol] 16 mg/dL Normal 5 - 21 mg/dL [facility] Urea nitrogen/Creatinine [Mass ratio] 18 mg/mg Normal 10 - 20 [facility] CTA Headon 03-07-2024 CTA Head Exam Date/Time: 03/07/2024 11:43 EST Reason for Exam: CVA Report Refer to concurrent CTA neck dictation. All CT scans at this facility use dose modulation, iterative reconstruction, and/or weight based dosing when appropriate to reduce radiation dose to as low as reasonably achievable. Ordering Provider: Abdulkadir Amaro FINAL REPORT Dictated: 03/07/2024 12:28 pm Marlon Flores MD Signed (Electronic Signature): 03/07/2024 12:28 pm Signed by: Marlon Flores MD Transcribed by: IGOR Technologist: DOMENICO Technical Comments GFR (mL/min/1/73m2) >60 Contrast: Isovue 370 Contrast amount in ml's: 100 Normal [facility] CTA Neckon 03-07-2024 CTA Neck Exam Date/Time: 03/07/2024 11:43 EST Reason for Exam: CVA Report IMPRESSION: Patent extracranial and intracranial circulation without evidence for large vessel occlusion, significant stenosis, or aneurysm. HISTORY: Stroke. Vision changes. TECHNIQUE: Spiral high resolution axial images were obtained through the head, neck and superior mediastinum following bolus administration of intravenous contrast for CT angiography. The data was subsequently post-processed utilizing 3D multi-planar reconstructions, 3D maximum intensity projections. COMPARISON: CT 03/06/2024. MRI 03/06/2024. All CT scans at this facility use dose modulation, iterative reconstruction, and/or weight based dosing when appropriate to reduce radiation dose to as low as reasonably achievable. RESULT: BRAIN: No significant interval change from the recent brain MRI and CT. NECK: Soft tissues: The soft tissue planes are maintained without acute finding. No suspicious mass or lesion. No significant lymphadenopathy. Spine: No acute findings. Multilevel degenerative changes. Lung apices: The visualized lung apices are clear. CT ARTERIOGRAM: Extracranial Circulation: Aortic Arch: Normal branching pattern. Calcifications without significant stenosis in the proximal brachiocephalic vessels. Right Carotid findings, with stenosis % estimated by NASCET criteria: Mild to moderate plaque formation. No significant stenosis involving the right common carotid artery. No significant stenosis of the right ICA. No evidence for dissection or other acute process. Left Carotid findings, with stenosis % estimated by NASCET criteria: Moderate plaque formation. Short segment of around 50% stenosis of the proximal left common carotid artery. Otherwise no significant stenosis involving the left common carotid artery. No significant stenosis of the left ICA. No evidence for dissection Report or other acute process. Cervical Vertebral Arteries: Patent bilaterally with right side slightly dominant. No evidence for dissection or other acute process. Intracranial Circulation: Anterior Circulation: Calcifications and tortuosity of the distal ICAs with mild stenosis. Proximal ACAs, proximal MCAs appear patent without significant stenosis or aneurysm. Vertebrobasilar Circulation: Distal vertebral arteries, basilar artery appear patent. Overall small caliber of the vertebrobasilar circulation with small caliber business intelligence administrator, without distinct focal high-grade proximal stenosis of the business intelligence administrator within limits of the small caliber. Dural venous sinuses: Visualized dural venous sinuses are patent. Ordering Provider: Abdulkadir Amaro FINAL REPORT Dictated: 03/07/2024 12:27 pm Marlon Flores MD Signed (Electronic Signature): 03/07/2024 12:27 pm Signed by: Marlon Flores MD Transcribed by: IGOR Technologist: DOMENICO Technical Comments GFR (mL/min/1/73m2) >60 Contrast: Isovue 370 Contrast amount in ml's: 100 Normal [facility] HEMATOLOGYOrdered By: SYSTEM SYSTEM on 03-07-2024 Basophils/100 WBC (Bld) 0.5 % Normal 0.0 - 2.0 % [facility] Basophils/Leukocytes Auto (Bld) [Pure # fraction] 0.0 E9/L Normal 0.0 - 0.2 E9/L [facility] Eosinophils (Bld) [#/Vol] 0.1 E9/L Normal 0.0 - 0.5 E9/L [facility] Eosinophils/100 WBC (Bld) 0.8 % Normal 0.0 - 8.0 % [facility] Erythrocyte distribution width (RBC) [Ratio] 13.6 % Normal 10.9 - 14.2 % [facility] Hematocrit (Bld) [Volume fraction] 42.2 % Normal 34.0 - 46.0 % [facility] Hemoglobin (Bld) [Mass/Vol] 15.0 g/dL Normal 12.0 - 16.0 gm/dL [facility] Lymphocytes (Bld) [#/Vol] 1.2 E9/L Normal 1.0 - 4.0 E9/L [facility] Lymphocytes/100 WBC (Bld) 13.0 % Low 14.0 - 50.0 % [facility] MCH (RBC) [Entitic mass] 31.3 pg Normal 27.0 - 34.0 pg [facility] MCHC (RBC) [Mass/Vol] 35.7 g/dL Normal 31.4 - 36.0 gm/dL [facility] MCV (RBC) [Entitic vol] 87.8 fL Normal 80.0 - 100.0 fL [facility] Monocytes (Bld) [#/Vol] 0.9 E9/L Normal 0.2 - 1.0 E9/L [facility] Monocytes/100 WBC (Bld) 9.2 % Normal 4.0 - 14.0 % [facility] Neutrophils (Bld) [#/Vol] 7.2 E9/L Normal 2.0 - 7.5 E9/L [facility] Neutrophils/100 WBC (Bld) 76.5 % High 36.0 - 75.0 % [facility] Platelet mean volume (Bld) [Entitic vol] 7.7 fL Normal 6.4 - 10.8 fL [facility] Platelets (Bld) [#/Vol] 218.0 E9/L Normal 150. 0 - 500.0 E9/L [facility] RBC (Bld) [#/Vol] 4.8 E12/L Normal 4.3 - 5.9 E12/L [facility] WBC corrected for nucl RBC Auto (Bld) [#/Vol] 9.4 E9/L Normal 4.0 - 11.0 E9/L [facility] Inpatient Clinical Summaryon 03-07-2024 Inpatient Clinical Summary Inpatient Clinical Summary [address] [address] Clinical Summary Person Information: Name: JANELLE BURT Age: 83 Years : 1940 Sex: Female PCP: ANTONINO GUSTAFSON MD Marital Status: Single Race: White Ethnicity: Non- or Language: Filipino Visit Id: Visit Reason: Vision changes; SENT BY EYE DOCTOR - POSSIBLE STROKE Speciality: Acuity: Enc Type: Observation Med Service: Medical Arrival: 03/06/2024 14:47:18 Discharge: Dispo Type: Admitted as IP to this Hosp Address: [address] [place] [id number] Provider Notes: Diagnosis: 1:CVA (cerebrovascular accident); 2:HTN (hypertension); 3:Hypothyroidism; 4:A-fib; 5:Hyperlipidemia Problems Active Hypothyroidism A-fib HTN (hypertension) High blood pressure Smoking Status: Former Smoker Functional Status: Sensory Deficits: History of Falls: Mobility Assistance Prior to Admission: ADLs: Independent Current Level of Assistance for Self-Care/Mobility: Cognitive Status: Oriented x 3 Allergies No Known Medication Allergies Measurements: Height: 167.64 cm Weight: 62.8 kg Blood Pressure: 149 mmHg / 63 mmHg BMI: 22.35 kg/m2 Procedures No Procedures Documented Immunizations No Immunizations Documented This Visit Final Med List: apixaban (Eliquis 5 mg oral tablet) 1 Tablets By Mouth 2 times a day. aspirin (aspirin 81 mg Oral EC Tab) 1 Tablets By Mouth every day. atorvastatin (atorvastatin 40 mg Tab) 1 Tablets By Mouth at bedtime. Refills: 0. fenofibrate (fenofibrate 54 mg oral tablet) 1 Tablets By Mouth every day. levothyroxine (levothyroxine 100 mcg (0.1 mg) Tab) 1 Tablets By Mouth every day. losartan (losartan 50 mg Tab) 1 Tablets By Mouth every day. metoprolol (Metoprolol tartrate 25 mg Tab) 1 Tablets By Mouth 2 times a day. nitroglycerin (nitroglycerin 0.3 mg sublingual tablet) 1 Tablets Sublingual every 5 minutes as needed for chest pain. Care Team Members: Attending Physician: Willie Kearney DO Consulting Physician: Kamar Escobar MD Referring Physician: Follow up: With: Address: When: ANTONINO GUSTAFSON MD, FAM [facility] [place] [address] Within 5 to 7 days Comments: Call for followup appointment to talk about switching from Eliquis to Coumadin once you are out of Eliquis With: Address: When: Kamar Escobar MD, NEU [address] [place] [address] Within 2 to 4 weeks Patient Education Information: Atrial Fibrillation, [id number]; Core Measures: Stroke (Cerebrovascular Accident) [facility] In[facility] Patient Summaryon 03-07-2024 Inpatient Patient Summary Inpatient Patient Summary JANELLE BURT :1940 Visit Date:03/06/2024 Inpatient Discharge Instructions Your Care Team Admitting Physician - Willie Kearney DO Consulting Physician - Kamar Escobar MD Reason for Your Visit Headache, vision issues Your Diagnosis CVA (cerebrovascular accident) HTN (hypertension) Hypothyroidism A-fib Hyperlipidemia Vision changes Tests Performed CT Head or Brain w/o Contrast CTA Head CTA Neck Echo Transthoracic Complete MRI Brain w/o Contrast XR Chest Single View This Is Your Medications List apixaban (Eliquis 5 mg oral tablet) aspirin (aspirin 81 mg Oral EC Tab) atorvastatin (atorvastatin 40 mg Tab) fenofibrate (fenofibrate 54 mg oral tablet) levothyroxine (levothyroxine 100 mcg (0.1 mg) Tab) losartan (losartan 50 mg Tab) metoprolol (Metoprolol tartrate 25 mg Tab) nitroglycerin (nitroglycerin 0.3 mg sublingual tablet) Discharge Vitals Temperature (Axillary) 36.7 ???C Heart Rate (Apical) 86 Respiratory Rate 18 Respiratory Rate 18 Blood Pressure 149/63 Height 167.64 cm Weight 62.8 kg BMI 22.35 What to do next Instructions From Your Doctor Event Name Event Result Pending Diagnostic Test Results None Discharge Instructions Please return to ER if symptoms change or worsen. Please follow-up with neurology as instructed. Please make sure you take your Eliquis as instructed. New Follow Up Appointments after Discharge Follow Up with GUSTAFSON MD, ANTONINO, FAM When: Within 5 to 7 days Comments: Call for followup appointment to talk about switching from Eliquis to Coumadin once you are out of Eliquis Where: [address] [place] [address]- Follow Up with Shawn MORA, YVES Galvin When: Within 2 to 4 weeks Where: [place] [address] [place] [address]- Medications What How Much When Instructions Next Dose New atorvastatin (atorvastatin 40 mg Tab) 1 Tablets By Mouth At bedtime Pickup at [facility]/pharmacy #[id number] 03/07 0900PM Changed apixaban (Eliquis 5 mg oral tablet) 1 Tablets By Mouth 2 times a day 03/07 0900PM Unchanged aspirin (aspirin 81 mg Oral EC Tab) 1 Tablets By Mouth Every day 03/08 0900AM Unchanged fenofibrate (fenofibrate 54 mg oral tablet) 1 Tablets By Mouth Every day 03/08 0900AM Unchanged levothyroxine (levothyroxine 100 mcg (0.1 mg) Tab) 1 Tablets By Mouth Every day 03/08 0900AM Unchanged losartan (losartan 50 mg Tab) 1 Tablets By Mouth Every day 03/08 0900AM Unchanged metoprolol (Metoprolol tartrate 25 mg Tab) 1 Tablets By Mouth 2 times a day 03/07 0900PM Unchanged nitroglycerin (nitroglycerin 0.3 mg sublingual tablet) 1 Tablets Sublingual Every 5 minutes as needed for for chest pain Every 5 minutes as needed for chest pain Pharmacy Information [facility]/pharmacy #[id number]: [address], [place] [id number] [phone] Test Results CBC BMP WBC: 9.4 E9/L (03/07/24 06:09:00) Glucose Lvl: 109 mg/dL (03/07/24 06:09:00) RBC: 4.8 E12/L (03/07/24 06:09:00) BUN: 16 mg/dL (03/07/24 06:09:00) HGB: 15 gm/dL (03/07/24 06:09:00) Creatinine: 0.9 mg/dL (03/07/24 06:09:00) Hct: 42.2 % (03/07/24 06:09:00) BUN/Creat Ratio: 18 (03/07/24 06:09:00) MCV: 87.8 fL (03/07/24 06:09:00) Sodium Lvl: 130 mmol/L Low (03/07/24 06:09:00) MCH: 31.3 pg (03/07/24 06:09:00) Potassium Lvl: 3.8 mmol/L (03/07/24 06:09:00) MCHC: 35.7 gm/dL (03/07/24:09:00) Chloride: 97 mmol/L Low (03/07/24 06:09:00) RDW: 13.6 % (03/07/24:09:00) CO2: 26 mmol/L (03/07/24:09:00) Platelet: 218 E9/L (03/07/24:09:00) AGAP: 11 mEq/L (03/07/24:09:00) MPV: 7.7 fL (03/07/24:09:00) Calcium Lvl: 9.3 mg/dL (03/07/24 06:09:00) Allergies No Known Medication Allergies Problems Ongoing - Any problem that you are currently receiving treatment for. A-fib High blood pressure HTN (hypertension) Hypothyroidism Education Materials Atrial Fibrillation Atrial fibrillation (AFib) is a type of heartbeat that is irregular or fast. If you have AFib, your heart beats without any order. This makes it hard for your heart to pump blood in a normal way. AFib may come and go, or it may become a long-lasting problem. If AFib is not treated, it can put you at higher risk for stroke, heart failure, and other heart problems. What are the causes? AFib may be caused by diseases that damage the heart's electrical system. They include: ??? High blood pressure. ??? Heart failure. ??? Heart valve diseases. ??? Heart surgery. ??? Diabetes. ??? Thyroid disease. ??? Kidney disease. ??? Lung diseases, such as pneumonia or COPD. ??? Sleep apnea. Sometimes the cause is not known. What increases the risk? You are more likely to develop AFib if: ??? You are older. ??? You exercise often and very hard. ??? You have a family history of AFib. ??? You are male. ??? Y (more content not included)... Normal [facility] Interdisciplinary Note - Rikki e Manageron 03-07-2024 Interdisciplinary Note - Heavy Equipment Rental Manager Interdisciplinary Note - Heavy Equipment Rental Manager CRM to room 304 Patient is awake, alert and oriented. Patient is from home alone. Her son and Daughter are present in room. Patient verified PCP, DME and insurance. Patient is an observation. Patient came in with CVA. Patient assigned to Dr worthington, see notes. Patient has neuro on case. Patient was evaluated by PT no needs and OT for OPOT. Patient getting a Neuro work up , imagine. If this is negative patient will DC home. She declined needs for HH, DME or Paramed. Patient will need her eliqius priced. Patient was provided CRM contact, xochitl board updated. CRM following Eliquis was priced and patient had a 90 day fill on 02/15 that farooq was [phone] Cant farooq a new script Will supply a 30 day free card to use in future but unsure if it will work until that date comes [facility] for transport. Patient has family assistance as needed Transport flyers are in admission folder Patient does not need to meet for Advance Directives Normal [facility] Comment on above: Result Comment: Elec tronically Signed By: Yaneli Day\.br\Date and Time Signed: 03/07/24 15:09 EST Interdisciplinary Note - Berkley n 03-07-2024 Interdisciplinary Note - OT Interdisciplinary Note - OT OT [facility] six clicks score 22 = no further inpatient OT needs. However, discussed referral to outpatient OT for evaluation of visual field cuts and education on retraining, remediation and home program/home safety techniques to optimize improvement. Patient is agreeable but is unable to drive. Patient reports she would be interested in senior services transportation if available. DC inpatient OT needs. Normal [facility] Interdisciplinary Note - Spe ech Languageon 03-07-2024 Interdisciplinary Note - Speech Language Interdisciplinary Note - Speech Language ST 03/07/24: per nursing no issues noted. pt with regular breakfast tray present, reports no issues with talking or swallowing. will cancel order at this time. please reconsult as needed. nursing aware/in agreement. Normal [facility] Miscellaneous-LCon 03-07 Test Code [id number] Invalid Interpretation Code [facility] Comment on above: Performed By: #### 1 [id number] #### [facility] [address] [place] [address] Test Name HbA1c Invalid Interpretation Code [facility] Comment on above: Performed By: #### 1 [id number] #### [facility] [address] [place] [address] Lipid Panelon 03-07-2024 Cholesterol [Mass/Vol] 160 mg/dL Normal 120-200 Fi [facility] Comment on above: Performed By: #### 2 [id number] #### [facility] [address] [place] [address] Cholesterol in HDL [Mass/Vol] 49 mg/dL Invalid Interpretation Code [facility] Comment on above: Result Comment: '>= 60 LOW RISK' '<= 40 HIGH RISK' Performed By: #### 2 [id number] #### [facility] [address] [place] [address] Cholesterol in LDL [Mass/Vol] 100 mg/dL Normal <=129 [facility] Comment on above: Performed By: #### 2 [id number] #### [facility] [address] [place] [address] Cholesterol in VLDL [Mass/Vol] 21 mg/dL Normal 7-40 [facility] Comment on above: Performed By: #### 2 [id number] #### [facility] [address] [place] [address] Triglyceride [Mass/Vol] 107 mg/dL Normal <=[address] [facility] Comment on above: Performed By: #### 2 [id number] #### [facility] [address] [place] [address] MRI Brain w/o Contraston MRI Brain w/o Contrast Exam Date/Time: 03/06/2024 19:19 EST Reason for Exam: CVA Report IMPRESSION: Small areas of recent appearing infarct superimposed on larger area of chronic infarct in the right occipital region. HISTORY: Vision changes. Possible stroke. TECHNIQUE: Routine noncontrast brain MRI protocol including diffusion and gradient echo images. COMPARISON: CT 03/06/2024. RESULT: MR BRAIN: Acute Change/chronic change: Small areas of apparent restricted diffusion within the right occipital region, especially within the periventricular region, suggestive of recent infarct. Other areas of apparent T2 shine through and associated increased T2/FLAIR signal in the right occipital region, chronic appearing. Other scattered patchy areas of increased T2 and FLAIR signal are present in the supratentorial white matter which is a nonspecific finding but likely represents mild to moderate chronic microvascular ischemia. Hemorrhage: No evidence of acute intracranial hemorrhage. No evidence of prior parenchymal hemorrhage on the gradient echo images. Mass Effect / Mass Lesion: No evidence of an intracranial mass or extra-axial fluid collection. No significant mass effect. Parenchyma: Mild to moderate generalized volume loss. Ventricles: Unchanged caliber and morphology from the CT. Skull Base: Hypothalamic and pituitary region are grossly normal. Craniocervical junction is normal. No significant marrow replacement process. Vasculature: Major intracranial arterial structures, and dural venous sinuses show typical flow void, suggesting patency by spin echo criteria. Other: The visualized paranasal sinuses are clear. Mastoid air cells are clear. Bilateral lens replacement surgery, orbits otherwise unremarkable. The extracranial soft tissues are unremarkable. Report Ordering Provider: Lian Jasso FINAL REPORT Dictated: 03/07/2024 9:10 am Marlon Flores MD Signed (Electronic Signature): 03/07/2024 9:10 am Signed by: Marlon Flores MD Transcribed by: IGOR Technologist: KIMBERLY Technical Comments None Normal [facility] Reference Laboratory Testing Ordered By: Yolanda Raphael on 03-07-2024 Test Code 232308 1 Invalid Interpretation Code [facility] SendOutsSS Test Name HbA1c Invalid Interpretation Code [facility] SendOutsSS eGFRon 03-07-2024 eGFR 63 mL/min/1.73 m2 Normal >=59 [facility] Comment on above: Performed By: #### 1 [id number] #### [facility] [address] [place] [address] BB Draw & Holdon 03-06-2024 BB D&H Sample drawn for Blood Ba Normal [facility] Comment on above: Performed By: #### 1 [id number] #### [facility] [address] [place] [address] CBC w/ Auto Diffon 4 Basophils/100 WBC (Bld) 0.8 % Normal 0.0-2.0 [facility] Comment on above: Performed By: #### 2 [id number] #### [facility] [address] [place] [address] Basophils/Leukocytes Auto (Bld) [Pure # fraction] 0.1 E9/L Normal 0.0-0.2 [facility] Comment on above: Performed By: #### 2 [id number] #### [facility] [address] [place] [address] Eosinophils (Bld) [#/Vol] 0.1 E9/L Normal 0.0-0.5 [facility] Comment on above: Performed By: #### 2 [id number] #### [facility] [address] [place] [address] Eosinophils/100 WBC (Bld) 1.0 % Normal 0.0-8.0 [facility] Comment on above: Performed By: #### 2 [id number] #### [facility] [address] [place] [address] Erythrocyte distribution width (RBC) [Ratio] 13.5 % Normal 10.9-14.2 [facility] Comment on above: Performed By: #### 2 [id number] #### [facility] [address] [place] [address] Hematocrit (Bld) [Volume fraction] 40.7 % Normal 34.0-46.0 [facility] Comment on above: Performed By: #### 2 [id number] #### [facility] [address] [place] [address] Hemoglobin (Bld) [Mass/Vol] 14.5 g/dL Normal 12.0-16.0 [facility] Comment on above: Performed By: #### 2 [id number] #### [facility] [address] [place] [address] Lymphocytes (Bld) [#/Vol] 2.2 E9/L Normal 1.0-4.0 [facility] Comment on above: Performed By: #### 2 [id number] #### [facility] [address] [place] [address] Lymphocytes/100 WBC (Bld) 25.0 % Normal 14.0-50.0 [facility] Comment on above: Performed By: #### 2 [id number] #### [facility] [address] [place] [address] MCH (RBC) [Entitic mass] 31.4 pg Normal 27.0-34.0 [facility] Comment on above: Performed By: #### 2 [id number] #### [facility] [address] [place] [address] MCHC (RBC) [Mass/Vol] 35.6 g/dL Normal 31.4-36.0 [facility] Comment on above: Performed By: #### 2 [id number] #### [facility] [address] [place] [address] MCV (RBC) [Entitic vol] 88.3 fL Normal 80.0-100.[address] [facility] Comment on above: Performed By: #### 2 [id number] #### [facility] [address] [place] [address] Monocytes (Bld) [#/Vol] 0.9 E9/L Normal 0.2-1.[address] [facility] Comment on above: Performed By: #### 2 [id number] #### [facility] [address] [place] [address] Neutrophils (Bld) [#/Vol] 5.4 E9/L Normal 2.0-7.5 [facility] Comment on above: Performed By: #### 2 [id number] #### [facility] [address] [place] [address] Neutrophils/100 WBC (Bld) 63.0 % Normal 36.0-75.0 [facility] Comment on above: Performed By: #### 2 [id number] #### [facility] [address] [place] [address] Platelet mean volume (Bld) [Entitic vol] 7.6 fL Normal 6.4-10.8 [facility] Comment on above: Performed By: #### 2 867561 #### [facility] [address] [place] [address] Platelets (Bld) [#/Vol] 205.0 E9/L Normal 150. 0-500. 0 [facility] Comment on above: Performed By: #### 2 513097 #### [facility] [address] [place] [address] RBC (Bld) [#/Vol] 4.6 E12/L Normal 4.3-5.9 [facility] Comment on above: Performed By: #### 2 [id number] #### [facility] [address] [place] [address] WBC corrected for nucl RBC Auto (Bld) [#/Vol] 8.6 E9/L Normal 4.0-11.0 [facility] Comment on above: Performed By: #### 2 [id number] #### [facility] [address] [place] [address] CHEMISTRYOrdered By: SYSTEM SYSTEM on 03-06-2024 Albumin [Mass/Vol] 3.9 g/dL Normal 3.3 - 5.0 gm/dL [facility] Albumin/Globulin [Mass ratio] 1.2 {ratio} Normal 1.1 - 2.2 [facility] ALP [Catalytic activity/Vol] 51 [iU]/d Normal 21 - 98 Int._Unit/ L [facility] ALT No additional P-5'-P [Catalytic activity/Vol] 10 [iU]/d Normal 6 - 46 Int._Unit/ L [facility] Anion gap [Moles/Vol] 9 mmol/L Normal 6 - 16 mEq/L [facility] AST [Catalytic activity/Vol] 16 [iU]/d Normal 5 - 43 Int._Unit/ L [facility] Bilirubin [Mass/Vol] 0.9 mg/dL Normal 0.0 - 1 .1 mg/dL [facility] Calcium [Mass/Vol] 9.4 mg/dL Normal 8.9 - 11. 1 mg/dL [facility] Chloride [Moles/Vol] 95 mmol/L Low 101 - 1 11 mmol/L [facility] CO2 [Moles/Vol] 29 mmol/L Normal 21 - 31 mmol/L [facility] Creatinine [Mass/Vol] 1.1 mg/dL Normal 0.5 - 1.3 mg/dL [facility] eGFR 49 mL/min/1.73 m2 Low >=59mL/min /1.73 m2 [facility] Globulin (S) [Mass/Vol] 3.2 g/dL Normal 1.4 - 4.0 gm/dL [facility] Glucose [Mass/Vol] 97 mg/dL Normal 55 - 199 mg/dL [facility] Potassium [Moles/Vol] 4.1 mmol/L Normal 3.5 - 5.3 mmol/L [facility] Protein [Mass/Vol] 7.1 g/dL Normal 6.0 - 7.8 gm/dL [facility] Sodium [Moles/Vol] 129 mmol/L Low 135 - 145 mmol/L [facility] Troponin HS 5.30 pg/mL Low 10.10 - 27.10 pg/mL [facility] Comment on above: Interpretive Data: T he 95% CI (Confidence Interval) PPV (Positive Predictive Value) for myocardial infarction in females is 38 pg/mL, in males 51 pg/mL. The results should be used in conjunction with clinical conditions of myocardial infarction. (Access High Sensitivity Troponin I Instructions For Use, Carla [place], October 2017) Urea nitrogen [Mass/Vol] 21 mg/dL Normal 5 - 21 mg/dL [facility] Urea nitrogen/Creatinine [Mass ratio] 19 mg/mg Normal 10 - 20 [facility] CHEMISTRYOrdered By: Lab ROP User on 03-06-2024 Glucose [Mass/Vol] 89 mg/dL Normal 55 - 99 mg/dL [facility] POC Subsection Comment on above: Result Comment: Johnathon spears RN/ POC Device SN [id number] Invalid Interpretation Code [facility] POC Subsection POC User ID [id number] 1 Invalid Interpretation Code [facility] POC Subsection POC Username ESTELLE FOX Invalid Interpretation Code [facility] POC Subsection CMPon 03-06-2024 Albumin [Mass/Vol] 3.9 g/dL Normal 3.3-5.0 [facility] Comment on above: Performed By: #### 2 [id number] #### [facility] [address] [place] [address] Albumin/Globulin (S) [Mass conc ratio] 1.2 Normal 1.1-2.2 [facility] Comment on above: Performed By: #### 2 [id number] #### [facility] [address] [place] [address] ALP [Catalytic activity/Vol] 51 Int._Unit/L Normal 21-98 [facility] Comment on above: Performed By: #### 2 [id number] #### [facility] [address] [place] [address] ALT No additional P-5'-P [Catalytic activity/Vol] 10 Int._Unit/L Normal 6-46 [facility] Comment on above: Performed By: #### 2 678397 #### [facility] [address] [place] [address] Anion gap [Moles/Vol] 9 mmol/L Normal 6-16 [facility] Comment on above: Performed By: #### 2 [id number] #### [facility] [address] [place] [address] AST [Catalytic activity/Vol] 16 Int._Unit/L Normal 5-43 [facility] Comment on above: Performed By: #### 2 683710 #### [facility] [address] [place] [address] Bilirubin [Mass/Vol] 0.9 mg/dL Normal 0.0-1.1 [facility] Comment on above: Performed By: #### 2 [id number] #### [facility] [address] [place] [address] Calcium [Mass/Vol] 9.4 mg/dL Normal 8.9-11.1 [facility] Comment on above: Performed By: #### 2 382766 #### [facility] [address] [place] [address] Chloride [Moles/Vol] 95 mmol/L Low 101-[address] [facility] Comment on above: Performed By: #### 2 308442 #### [facility] [address] [place] [address] CO2 [Moles/Vol] 29 mmol/L Normal 21-31 [facility] Comment on above: Performed By: #### 2 720903 #### [facility] [address] [place] [address] Creatinine [Mass/Vol] 1.1 mg/dL Normal 0.5-1.3 [facility] Comment on above: Performed By: #### 2 249090 #### [facility] [address] [place] [address] Globulin (S) [Mass/Vol] 3.2 g/dL Normal 1.4-4.[address] [facility] Comment on above: Performed By: #### 2 [id number] #### [facility] [address] [place] [address] Glucose [Mass/Vol] 97 mg/dL Normal 55-199 [facility] Comment on above: Performed By: #### 2 [id number] #### [facility] [address] [place] [address] Potassium [Moles/Vol] 4.1 mmol/L Normal 3.5-5.3 [facility] Comment on above: Performed By: #### 2 [id number] #### [facility] [address] [place] [address] Protein [Mass/Vol] 7.1 g/dL Normal 6.0-7.8 [facility] Comment on above: Performed By: #### 2 139915 #### [facility] [address] [place] [address] Sodium [Moles/Vol] 129 mmol/L Low 135-145 [facility] Comment on above: Performed By: #### 2 277304 #### [facility] [address] [place] [address] Urea nitrogen [Mass/Vol] 21 mg/dL Normal 5-21 [facility] Comment on above: Performed By: #### 2 962177 #### [facility] [address] [place] [address] Urea nitrogen/Creatinine [Mass ratio] 19 No Units Normal 10-20 [facility] Comment on above: Performed By: #### 2 [id number] #### [facility] [address] [place] [address] COAGULATIONOrdered By: Arvin Quevedo on 03-06-2024 aPTT Coag (PPP) [Time] 29.4 s Normal 25.1 - 36.5 second(s) [facility] Auto Coag Comment on above: Interpretive Data: Claudy ross 15 days - 4 weeks 1 - 5 months 6 - 11 months 1 - 5 years 6 - 10 years 11 - 17 years PTT Mean: 35.4 (27.6-45.6) Mean: 33.5 (24.8-40.7) Mean: 32.4 (25.1-40.7) Mean: 31.6 (24.0-39.2) Mean: 31.6 (26.9-38.7) Mean: 31.0 (24.6-38.4) Pediatric Reference ranges were obtained from a study by Hoang Powell et al. prepared from 1437 samples obtained at 7 different centers using the same coagulation reagent and instrumentation as [facility]. Currently there are no coagulation studies available worldwide for children to 14 days, and no normal ranges. Heparin therapeutic range (represented by Anti-Factor Xa activity of 0.2 - 0.4 U/mL) corresponds to PTT of 56.6 - 109.0 sec. INR Coag (PPP) [Relative time] 1.05 {INR} Invalid Interpretation Code [facility] Auto Coag Comment on above: Interpretive Data: I NR results are specifically intended to assess patients stabilized on long-term Anticoagulation therapy suggested INR s Less Intensive Anticoagulation 2.0 3.0 Conventional Range 3.0 4.5 PT Coag (PPP) [Time] 11.8 s Normal 9.4 - 1 2.5 second(s) [facility] Auto [facility]ag Comment on above: Interpretive Data: 1 5 days - 4 weeks 1 - 5 months 6 -11 months 1 5 years 6 10 years 11 -17 years Mean: 11.2 (9.5 12.6) Mean: 11.0 (9.7 12.8) Mean: 11.0 (9.8 13.0) Mean: 11.3 (9.9 13.4) Mean: 11.7 (10.0 14.6) Mean: 11.8 (10.0 - 14.1) Pediatric Reference ranges were obtained from a study by Hoang Powell et al. prepared from 1437 samples obtained at 7 different centers using the same coagulation reagent and instrumentation as [facility]. Currently there are no coagulation studies available worldwide for children to 14 days, and no normal ranges. 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 CHRONIC ISCHEMIC WHITE MATTER DISEASE. AGE-INDETERMINATE RIGHT OCCIPITAL LOBE INFARCT. IF CLINICAL CONCERN WARRANTS, MRI BRAIN MAY BE OBTAINED FOR FURTHER EVALUATION. OTHER FINDINGS DISCUSSED. CT BRAIN. CONTRAST MEDIUM: WITHOUT CONTRAST.. History: Visual changes.. Technical factors: CT imaging of the brain was obtained and formatted as 5 mm contiguous axial images. 2.5 mm contiguous axial images were obtained through the osseous structures. Sagittal and coronal reconstruction obtained during postprocessing. Comparison: None. Findings: Extra-axial spaces: Normal. Intracranial hemorrhage: None. Ventricular system: Ventricles mildly to moderately enlarged. Sulci mildly to moderately prominent. Basal Cisterns: Normal. Cerebral Parenchyma: Bilateral symmetric periventricular areas of decreased attenuation. Ill-defined area decreased attenuation right occipital lobe extending to posterior horn right lateral ventricle, measuring approximately 2 x 3.2 x 2 cm. Midline Shift: None. Cerebellum: Normal. Paranasal sinuses and mastoid air cells: Normal. Visualized Orbits: Bilateral ocular globes, extraocular muscles, optic nerves, retrobulbar fat without anomaly. Air identified bilateral extraconal space anterior to ocular globes. Remote left ocular surgery. Report All CT scans at this facility use dose modulation, iterative reconstruction, and/or weight based dosing when appropriate to reduce radiation dose to as low as reasonably achievable. Ordering Provider: Julio Escalante FINAL REPORT Dictated: 03/06/2024 4:16 pm Chaparro Gaines MD Signed (Electronic Signature): 03/06/2024 4:16 pm Signed by: Chaparro Gaines MD Transcribed by: IGOR Technologist: EDUAR Normal [facility] Capillary Glucose POCon Glucose [Mass/Vol] 89 mg/dL Normal 55-99 [facility] Comment on above: Result Comment: Johnathon spears RN/ Performed By: #### 2 [id number] #### [facility] [address] [place], [place] [id number] ED Clinical Summaryon 2023 ED Clinical Summary ED Clinical Summary [address] [address] ED Clinical Summary Person Information [facility]: [facility] Age[facility] 83 Years : 1940 Sex: Female Language: Filipino PCP: ANTONINO GUSTAFSON MD Marital Status: Single Visit Id: Visit Reason: Vision changes; SENT BY EYE DOCTOR - POSSIBLE STROKE Speciality: Acuity: 2 Enc Type: Observation Med Service: Medical Arrival: 03/06/2024 14:47:18 Discharge: LOS: 000 05:16 Checkin: 03/06/2024 14:47:18 Checkout: 03/06/2024 20:03:26 Dispo Type: Admitted as IP to this [facility] EVENTS: Event Name Event Status Request Date/Time Start Date/Time Complete Date/Time Arrive Complete 03/06/2024 14:47:18 03/06/2024 14:47:18 03/06/2024 14:47:18 Document Home Meds Request 03/06/2024 14:47:18 Triage Complete 03/06/2024 14:47:18 03/06/2024 15:03:48 03/06/2024 15:03:48 Bed Assign Complete 03/06/2024 14:54:27 03/06/2024 14:54:27 03/06/2024 14:54:27 Dr Exam Complete 03/06/2024 14:54:27 03/06/2024 14:57:39 03/06/2024 14:57:39 RN Exam Complete 03/06/2024 14:54:27 03/06/2024 15:08:56 03/06/2024 15:08:56 Registration Complete 03/06/2024 14:57:39 03/06/2024 15:09:46 03/06/2024 15:09:46 Dr Exam Complete 03/06/2024 15:01:22 03/06/2024 15:01:22 03/06/2024 15:01:22 Pending Labs Complete 03/06/2024 15:03:23 03/06/2024 15:03:23 03/06/2024 15:03:23 EKG Complete 03/06/2024 15:05:33 03/06/2024 15:19:49 Pending Labs Collected 03/06/2024 15:05:33 Blood Collect Request 03/06/2024 15:05:33 Lab Complete 03/06/2024 15:05:33 03/06/2024 15:49:30 Patient Care Request 03/06/2024 15:05:33 CT Complete 03/06/2024 15:05:33 03/06/2024 15:55:34 03/06/2024 16:07:05 X-Ray Complete 03/06/2024 15:05:33 03/06/2024 15:30:55 03/06/2024 15:42:16 RT Request 03/06/2024 15:05:33 Reg Complete Request 03/06/2024 15:09:46 Reg Bed Request Complete 03/06/2024 15:09:46 03/06/2024 15:09:46 03/06/2024 15:09:46 Pending Labs Complete 03/06/2024 15:22:24 03/06/2024 15:22:24 03/06/2024 15:49:30 Lab Complete 03/06/2024 15:22:24 03/06/2024 15:22:24 03/06/2024 15:49:30 Wet Read Request 03/06/2024 15:42:16 Pending Labs Complete 03/06/2024 16:19:34 03/06/2024 16:19:34 03/06/2024 16:19:35 Consult Request 03/06/2024 16:29:29 Hospitalist Consult Request 03/06/2024 16:29:29 Observation Request 03/06/2024 18:19:40 Patient Care Request 03/06/2024 18:19:41 Patient Care Request 03/06/2024 18:19:41 Medicare Form Complete 03/06/2024 18:19:42 03/06/2024 19:39:16 Patient Care Request 03/06/2024 18:19:43 Patient Care Request 03/06/2024 18:19:43 Consult Request 03/06/2024 18:23:31 Pending Labs Request 03/06/2024 18:23:31 Lab Request 03/06/2024 18:23:31 Meds Admin Request 03/06/2024 18:23:31 Patient Care Request 03/06/2024 18:23:31 Echo Cancel 03/06/2024 18:23:31 03/06/2024 18:46:48 MRI Complete 03/06/2024 18:23:31 03/06/2024 18:52:06 03/06/2024 19:19:10 Patient Care Request 03/06/2024 18:26:15 Pending Labs Request 03/06/2024 18:26:15 Lab Request 03/06/2024 18:26:15 Meds Admin Request 03/06/2024 18:26:15 Echo Request 03/06/2024 18:46:48 Meds Admin Request 03/06/2024 19:00:06 Inpatient Bed Ready Complete 03/06/2024 20:03:26 03/06/2024 20:03:26 03/06/2024 20:03:26 ADDRESS: [address] [place] [phone] [facility] DOC NOTES: MEDICAL INFORMATION: Prescriptions Given: PATIENT EDUCATION INFORMATION: Instructions: Follow up: DIAGNOSIS: 1:CVA (cerebrovascular accident); 2:HTN (hypertension); 3:Hypothyroidism; 4:A-fib; 5:Hyperlipidemia Normal [facility] ED Note-Nursingon 03-06-2024 ED Note-Nursing ED Note-Nursing Pt returns from MRI. Normal [facility] ED Note-Nursing ED Note-Nursing Finger stick at 1502 is 89 Normal [facility] ED Patient Education Noteon 03-06-2024 ED Patient Education Note ED Patient Education Note Normal [facility] ED Patient Summaryon ED Patient Summary ED Patient Summary [address] [address] Patient Discharge Instructions Person Information Name: JANELLE BURT Age: 83 Years Arrival Date: 03/06/2024 14:47:18 Discharge Diagnosis: 1:CVA (cerebrovascular accident); 2:HTN (hypertension); 3:Hypothyroidism; 4:A-fib; 5:Hyperlipidemia Primary Care Physician: ANTONINO GUSTAFSON MD Provider Information Primary Provider: Rolando Zarco DO [employer] Specialist:Julio Escalante PA-C The exam and treatment you received in the Emergency Department were for an urgent problem and are not intended as complete care. It is important that you follow up with a doctor, nurse practitioner, or physician???s assisted living assistant for ongoing care. If your symptoms become worse or you do not improve as expected and you are unable to reach your usual health care provider, you should return to the Emergency Department. We are available 24 hours a day. JANELLE BURT has been given the following list of patient education materials, prescriptions and follow-up instructions: Follow-up Instructions: In the event that this physician does not participate in your insurance network, please consult with your insurance company to find a nearby participating provider. Patient Education Materials: A MESSAGE TO ALL PATIENTS REGARDING OPIOIDS PRESCRIPTION OPIOIDS: WHAT YOU NEED TO KNOW Prescription opioids can be used to help relieve aqadrpix-ak-hnvpdr pain and are often prescribed following a surgery or injury, or for certain health conditions. These medications can be an important part of the treatment but also come with serious risks. It is important to work with your healthcare provider to make sure you are getting the safest, most effective care. WHAT ARE THE RISKS AND SIDE EFFECTS OF OPIOID USE? Prescription opioids carry serious risks of addiction and overdose, especially with prolonged use. An opioid overdose, often marked by slowed breathing, can cause sudden . The use of prescription opioids can have a number of side effects as well, even when taken as directed: ??? Tolerance???meaning you might need to take more of the medication for the same pain relief ??? Physical dependence???meaning you have symptoms of withdrawal when a medication is stopped ??? Increased sensitivity to pain ??? Constipation ??? Nausea, vomiting, and dry mouth ??? Sleepiness and dizziness ??? Confusion ??? Depression ??? Low levels of testosterone that can result in lower sex drive, energy, and strength ??? Itching and sweating RISKS ARE GREATER WITH: ??? History of drug misuse, substance use disorder, or overdose ??? Mental health conditions (such as depression or anxiety) ??? Sleep apnea ??? Older age (65 years and older) ??? Avoid alcohol while taking prescription opioids. Also, unless specifically advised by your health care provider, medications to avoid include: ??? Benzodiazepines (such as Xanax or Valium) ??? Muscle relaxants (such as Soma or Flexeril) ??? Hypnotics (such as Ambien or Lunesta) ??? Other prescription opioids KNOW YOUR OPTIONS Talk to your health care provider about ways to manage your pain that don???t involve prescription opioids. Some of these options may actually work better and have fewer risks and side effects. Options may include: ??? Pain relievers such as acetaminophen, ibuprofen, and naproxen ??? Some medication that are also used for depression or seizures ??? Physical therapy and exercise ??? Cognitive behavioral therapy, a psychological, goal-directed approach, in which patients learn how to modify physical, behavioral, and emotional triggers of pain and stress. IF YOU ARE PRESCRIBED OPIOIDS FOR PAIN: ??? Never take opioids in greater amounts or more often than prescribed. ??? Follow up with your primary health care provider. o Work together to create a plan on how to manage your pain. o Talk about ways to help manage your pain that don???t involve prescription opioids. o Talk about any and all concerns and side effects. ??? Help prevent misuse and abuse o Never sell or share prescription opioids. o Never use another person???s prescription opioids. ??? Store prescription opioids in a secure place and out of reach of others (this may include visitors, children, friends, and family). ??? Safely dispose of unused prescription opioids: Find your community drug take-back program or your pharmacy mail-back program, or flush them down the toilet, following guidance from the Food and Drug Administration (www.fda.gov/Drugs/Resourc esForYou). ??? Visit www.cdc.gov/drugoverdose to learn about the risks of opioids abuse and overdose. ??? If you believe you may be struggling with addiction, tell your health reproductive healthcare assistant and ask for guidance or call [facility]???S National Helpline at 5-751-805-SQBN. (more content not included)... Normal [facility] HEMATOLOGYOrdered By: SYSTEM SYSTEM on 03-06-2024 Basophils/100 WBC (Bld) 0.8 % Normal 0.0 - 2.0 % [facility] Basophils/Leukocytes Auto (Bld) [Pure # fraction] 0.1 E9/L Normal 0.0 - 0.2 E9/L [facility] Eosinophils (Bld) [#/Vol] 0.1 E9/L Normal 0.0 - 0.5 E9/L [facility] Eosinophils/100 WBC (Bld) 1.0 % Normal 0.0 - 8.0 % [facility] Erythrocyte distribution width (RBC) [Ratio] 13.5 % Normal 10.9 - 14.2 % [facility] Hematocrit (Bld) [Volume fraction] 40.7 % Normal 34.0 - 46.0 % [facility] Hemoglobin (Bld) [Mass/Vol] 14.5 g/dL Normal 12.0 - 16.0 gm/dL [facility] Lymphocytes (Bld) [#/Vol] 2.2 E9/L Normal 1.0 - 4.0 E9/L [facility] Lymphocytes/100 WBC (Bld) 25.0 % Normal 14.0 - 50.0 % [facility] MCH (RBC) [Entitic mass] 31.4 pg Normal 27.0 - 34.0 pg [facility] MCHC (RBC) [Mass/Vol] 35.6 g/dL Normal 31.4 - 36.0 gm/dL [facility] MCV (RBC) [Entitic vol] 88.3 fL Normal 80.0 - 100.0 fL [facility] Monocytes (Bld) [#/Vol] 0.9 E9/L Normal 0.2 - 1.0 E9/L [facility] Monocytes/100 WBC (Bld) 10.2 % Normal 4.0 - 14.0 % [facility] Neutrophils (Bld) [#/Vol] 5.4 E9/L Normal 2.0 - 7.5 E9/L [facility] Neutrophils/100 WBC (Bld) 63.0 % Normal 36.0 - 75.0 % [facility] Platelet mean volume (Bld) [Entitic vol] 7.6 fL Normal 6.4 - 10.8 fL [facility] Platelets (Bld) [#/Vol] 205.0 E9/L Normal 150. 0 - 500.0 E9/L [facility] RBC (Bld) [#/Vol] 4.6 E12/L Normal 4.3 - 5.9 E12/L [facility] WBC corrected for nucl RBC Auto (Bld) [#/Vol] 8.6 E9/L Normal 4.0 - 11.0 E9/L [facility] Laboratory - Microbiology an d Antimicrobial susceptibilityOrdered By: Camryn Acosta on 03-06-2024 Bacteria identified Cx Nom (U) 1,000 cfu/ml Mixed skin contaminants [facility] PT & PTTon 03-06-2024 aPTT Coag (PPP) [Time] 29.4 second(s) Normal 25.1-36.5 [facility] Comment on above: Result Comment: Para meter 15 days - 4 weeks 1 - 5 months 6 - 11 months 1 - 5 years 6 - 10 years 11 - 17 years PTT Mean: 35.4 (27.6-45.6) Mean: 33.5 (24.8-40.7) Mean: 32.4 (25.1-40.7) Mean: 31.6 (24.0-39.2) Mean: 31.6 (26.9-38.7) Mean: 31.0 (24.6-38.4) Pediatric Reference ranges were obtained from a study by Hoang Powell et al. prepared from 1437 samples obtained at 7 different centers using the same coagulation reagent and instrumentation as [facility]. Currently there are no coagulation studies available worldwide for children to 14 days, and no normal ranges. Heparin therapeutic range (represented by Anti-Factor Xa activity of 0.2 - 0.4 U/mL) corresponds to PTT of 56.6 - 109.0 sec. Performed By: #### 1 [id number] #### [facility] [address] [place] [address] INR Coag (PPP) [Relative time] 1.05 {INR} Invalid Interpretation Code [facility] Comment on above: Result Comment: INR results are specifically intended to assess patients stabilized on long-term Anticoagulation therapy suggested INR???s ???Less Intensive Anticoagulation??? 2.0 ??? 3.0 Conventional Range 3.0 ??? 4.5 Performed By: #### 1 [id number] #### [facility] [address] [place] [address] PT Coag (PPP) [Time] 11.8 second(s) Normal 9.4-12.5 [facility] Comment on above: Result Comment: 15 d ays - 4 weeks 1 - 5 months 6 -11 months 1 ??? 5 years 6 ??? 10 years 11 -17 years Mean: 11.2 (9.5 ??? 12.6) Mean: 11.0 (9.7 ??? 12.8) Mean: 11.0 (9.8 ??? 13.0) Mean: 11.3 (9.9 ??? 13.4) Mean: 11.7 (10.0 ??? 14.6) Mean: 11.8 (10.0 - 14.1) Pediatric Reference ranges were obtained from a study by Hoang Powell et al. prepared from 1437 samples obtained at 7 different centers using the same coagulation reagent and instrumentation as [facility]. Currently there are no coagulation studies available worldwide for children to 14 days, and no normal ranges. Performed By: #### 1 [id number] #### [facility] [address] [place] [address] Perimetry studyon 03-06-2024 Right Eye Reliability was poor. Left Eye Reliability was poor. Notes Lt homonymous edni [facility] Radiology Study observation (narrative) [facility] Troponin 0 Hr.on 03-06-2024 Troponin HS 5.30 pg/mL Low 10.10-27.1 0 [facility] Comment on above: Result Comment: The 95% CI (Confidence Interval) PPV (Positive Predictive Value) for myocardial infarction in females is 38 pg/mL, in males 51 pg/mL. The results should be used in conjunction with clinical conditions of myocardial infarction. (Access High Sensitivity Troponin I Instructions For Use, Carla Love, October 2017) Performed By: #### 1 [id number] #### [facility] [address] [place] [address] UA with Cult Rflxon 03-06-20 24 Bilirubin Ql (U) Negative Normal Negative [facility] Comment on above: Performed By: #### 4 [id number] #### [facility] [address] [place] [address] Clarity (U) Clear Normal Clear [facility] Comment on above: Performed By: #### 4 [id number] #### [facility] [address] [place] [address] Color (U) Yellow Normal Yellow [facility] Comment on above: Result Comment: Micr oscopic readings are only performed on those samples that meet specific criteria set forth by [facility]. Performed By: #### 4 [id number] #### [facility] [address] [place] [address] Epithelial cells.squamous Auto (Urine sed) [#/Area] 3-4 Invalid Interpretation Code [facility] Comment on above: Performed By: #### 4 [id number] #### [facility] [address] [place] [address] Glucose Ql (U) Negative Normal Negative [facility] Comment on above: Performed By: #### 4 [id number] #### [facility] [address] [place] [address] Hemoglobin Auto test strip (U) [Mass/Vol] Negative Normal Negative [facility] Comment on above: Performed By: #### 4 [id number] #### [facility] [address] [place] [address] Ketones Auto test strip Ql (U) Negative Normal Negative [facility] Comment on above: Performed By: #### 4 [id number] #### [facility] [address] [place] [address] Leukocyte esterase Auto test strip Ql (U) 250 Mohit/uL Abnormal Negative [facility] Comment on above: Performed By: #### 4 [id number] #### [facility] [address] [place] [address] Mucus Auto Ql (U) Trace Normal Negative [facility] Comment on above: Performed By: #### 4 [id number] #### [facility] [address] [place] [address] Nitrite Auto test strip Ql (U) Negative Normal Negative [facility] Comment on above: Performed By: #### 4 [id number] #### [facility] [address] [place] [address] pH (U) 5.5 [pH] Invalid Interpretation Code 5.0-9.0 [facility] Comment on above: Performed By: #### 4 [id number] #### [facility] [address] [place] [address] Protein Ql (U) Negative Normal Negative [facility] Comment on above: Performed By: #### 4 [id number] #### [facility] [address] [place] [address] RBC Ql (U) 0-3 Normal 0-3 [facility] Comment on above: Performed By: #### 4 [id number] #### [facility] [address] [place] [address] Specific gravity (U) [Rel density] 1.019 Invalid Interpretation Code 1.005-1.03 0 [facility] Comment on above: Performed By: #### 4 [id number] #### [facility] [address] [place] [address] Urobilinogen (U) [Mass/Vol] Negative Normal Negative [facility] Comment on above: Performed By: #### 4 [id number] #### [facility] [address] [place] [address] WBC Auto (Urine sed) [#/Area] 6-15 Abnormal 0-5 [facility] Comment on above: Performed By: #### 4 [id number] #### [facility] [address] [place] [address] Type of Urine collection method Clean Catch Normal [facility] Comment on above: Performed By: #### 4 [id number] #### [facility] [address] [place] [address] URINALYSISOrdered By: SYSTEM SYSTEM on 03-06-2024 Bilirubin Ql (U) Negative Normal Negativemg /dL [facility] UA Auto SS Clarity (U) Clear (03/06/24 7:55 PM) Normal Clear [facility] UA Auto SS Color (U) Yellow 1 (03/06/24 7:55 PM) Normal Yellow [facility] UA Auto SS Comment on above: Interpretive Data: M icroscopic readings are only performed on those samples that meet specific criteria set forth by [facility]. Epithelial cells.squamous Auto (Urine sed) [#/Area] 3-4 graded/HPF Invalid Interpretation Code [facility] UA Auto SS Glucose Ql (U) Negative Normal Negativemg /dL [facility] UA Auto SS Hemoglobin Auto test strip (U) [Mass/Vol] Negative Normal Negativemg /dL [facility] UA Auto SS Ketones Auto test strip Ql (U) Negative Normal Negativemg /dL [facility] UA Auto SS Leukocyte esterase Auto test strip Ql (U) 250 Mohit/uL Mohit/uL Invalid Interpretation Code NegativeLe u/uL [facility] UA Auto SS Mucus Auto Ql (U) Trace graded/LPF Normal Negati vegr aded/LPF [facility] UA Auto SS Nitrite Auto test strip Ql (U) Negative Normal Negativemg /dL [facility] UA Auto SS pH (U) 5.5 *NA* (03/06/24 7:55 PM) Invalid Interpretation Code 5.0 - 9.0 [facility] UA Auto SS Protein Ql (U) Negative Normal Negativemg /dL [facility] UA Auto SS RBC Ql (U) 0-3 graded/HPF Normal 0-3graded/ HPF [facility] UA Auto SS Specific gravity (U) [Rel density] 1.019 *NA* (03/06/24 7:55 PM) Invalid Interpretation Code 1.005 - 1.030 [facility] UA Auto SS Urobilinogen (U) [Mass/Vol] Negative Normal Negativemg /dL [facility] UA Auto SS WBC Auto (Urine sed) [#/Area] 6-15 graded/HPF Invalid Interpretation Code 0-5graded/ HPF [facility] UA Auto SS URINALYSISOrdered By: Julio Escalante on 03-06-2024 UA Spec Desc Clean Catch (03/06/24 7:55 PM) Normal [facility] UA Auto SS Work Phone: XR Chest Single Viewon 03-06 XR Chest Single View Exam Date/Time: 03/06/2024 15:42 EST Reason for Exam: Chest pain Report IMPRESSION: NO RADIOGRAPHIC EVIDENCE OF ACUTE INTRATHORACIC PROCESS. EXAM: XR Chest Single View History: Chest pain Technique: Portable AP view of the chest. Comparison: None available Findings: Atherosclerotic calcification of the thoracic aorta. The cardiomediastinal silhouette is within normal limits. No pneumothorax, pleural effusion, or consolidation. Left lung base scarring and/or atelectasis. No acute osseous abnormality. Ordering Provider: Julio Escalante FINAL REPORT Dictated: 03/06/2024 3:57 pm Joe Vieira DO Signed (Electronic Signature): 03/06/2024 3:57 pm Signed by: Joe Vieira DO Transcribed by: IGOR Technologist: JAYE Technical Comments Radiation Dose: Ka,r in mGy = na DAP = na Normal [facility] eGFRon 03-06-2024 eGFR 49 mL/min/1.73 m2 Low >=59 [facility] Comment on above: Performed By: #### 1 [id number] #### [facility] [address] [place] [address] Urine Cultureon 02-17-2024 Bacteria identified Cx Nom (U) ORGANISM: Pseudomonas aeruginosa (O:PSEAER) [place] Count <10,000 Aerobic TONY Charge ([id number]) SUSCEPTIBILITY ORGANISM: O:PSEAER ANTIBIOTIC INTERPRETATION TONY Amikacin S <16 Aztreonam IB <4 Cefepime S <2 Ceftazidime IB <1 Ceftazidime/Avibactam S <4 Ceftolozane/Tazobactam S <2 Ciprofloxacin S <0.25 Gentamicin S <2 Levofloxacin S <0.5 Meropenem S <1 Piperacillin/Tazobactam IB <8 Tobramycin S <2 S = SUSCEPTIBLE I = INTERMEDIATE R = RESISTANT BLANK = DATA NOT AVAILABLE, OR DRUG NOT ADVISABLE OR TESTED R* = RESISTANCE DUE TO EXTENDED SPECTRUM BETA-LACTAMASES ESBL = EXTENDED SPECTRUM BETA-LACTAMASE TFG = THYMIDINE-DEPENDENT STRAIN ANDRES = BETA-LACTAMASE POSITIVE IB = INDUCIBLE BETA-LACTAMASE. APPEARS IN PLACE OF 'S' WITH SPECIES KNOWN TO POSSESS INDUCIBLE BETA-LACTAMASES. POTENTIALLY THEY MAY BECOME RESISTANT TO ALL B-LACTAM DRUGS. PERFORMED BY: [place] [address] PATHOLOGIST SENIOR PUBLICATIONS SPECIALIST SUSANNE Bautista [facility] Comment on above: Performed By: #### C UU #### [address] Basophils Auto (Bld) [#/Vol] on 02-05-2024 Basophils (Bld) [#/Vol] Automated basophil count 0.0-0.1 [facility] Basophils/100 WBC Auto (Bld) on 02-05-2024 Basophils/100 WBC (Bld) Automated basophil % 0. 2-2.0 [facility] Eosinophils/100 WBC Auto (Bl d)on 02-05-2024 Eosinophils/100 WBC (Bld) Automated eosinophil % 0.9-7.0 [facility] Erythrocyte distribution wid th Auto (RBC) [Ratio]on 02-05-2024 Erythrocyte distribution width (RBC) [Ratio] Erythrocyte distribution width [Ratio] by Automated count 11.0-15.0 [facility] Estimated glomerular filtrat ion rate (GFR) non- Americanon 02-05-2024 GFR/1.73 sq M.predicted among non-blacks MDRD (S/P/Bld) [Vol rate/Area] Estimated glomerular filtration rate (GFR) non- Low >=60 mL/min/1.7 3m 2 [facility] Hematocrit Auto (Bld) [Volum e fraction]on 02-05-2024 Hematocrit (Bld) [Volume fraction] Hematocrit [Volume Fraction] of Blood by Automated count 36.0-48.0 [facility] Hemoglobin [Mass/volume] in Bloodon 02-05-2024 Hemoglobin (Bld) [Mass/Vol] Hemoglobin [Mass/volume] in Blood 12.0-16.0 [facility] Laboratory - Chemistry and C hemistry - challengeon 02-05-2024 Calcium [Mass/Vol] 9.5 mg/dL 8.5-10.1 [facility] Chloride [Moles/Vol] 95 mmol/L Low 98-107 [facility] CO2 [Moles/Vol] 26.7 mmol/L 21.0-32.0 [facility] Creatinine [Mass/Vol] 1.30 mg/dL High 0.55-1.02 [facility] GFR/1.73 sq M.predicted MDRD (S/P/Bld) [Vol rate/Area] 47 mL/min/{1.73_m2} Low >=60 mL/min/1.7 3m 2 [facility] Glucose [Mass/Vol] 115 mg/dL High 74-106 [facility] Potassium [Moles/Vol] 4.1 mmol/L 3.5-5.1 [facility] Sodium [Moles/Vol] 132 mmol/L Low 136-145 [facility] Urea nitrogen [Mass/Vol] 14.0 mg/dL 7.0-18.0 [facility] Urea nitrogen/Creatinine [Mass ratio] 10.8 mg/mg [facility] Laboratory - Hematology and Cell countson 02-05-2024 Immature granulocytes/100 WBC (Bld) 0.1 % 0.0-0.5 [facility] Leukocytes [#/volume] correc chacho for nucleated erythrocytes in Blood by Automated counon 02-05-2024 WBC corrected for nucl RBC Auto (Bld) [#/Vol] Leukocytes [#/volume] corrected for nucleated erythrocytes in Blood by Automated coun 4.0-11.0 [facility] Lymphocytes Auto (Bld) [#/Vo l]on 02-05-2024 Lymphocytes (Bld) [#/Vol] Lymphocytes [#/volume] in Blood by Automated count 1.2-3.8 [facility] Lymphocytes/100 WBC Auto (Bl d)on 02-05-2024 Lymphocytes/100 WBC (Bld) Lymphocytes/100 leukocytes in Blood by Automated count 20.5-60.0 [facility] MCH Auto (RBC) [Entitic mass ]on 02-05-2024 MCH (RBC) [Entitic mass] MCH [Entitic mass] by Automated count 26.7-34.0 [facility] MCHC Auto (RBC) [Mass/Vol]on 02-05-2024 MCHC (RBC) [Mass/Vol] MCHC [Mass/volume] by Automated count 29.9-35.2 [facility] MCV Auto (RBC) [Entitic vol] on 02-05-2024 MCV (RBC) [Entitic vol] MCV [Entitic vol ume] by Automated count 81.0-99.0 [facility] Monocytes Auto (Bld) [#/Vol] on 02-05-2024 Monocytes (Bld) [#/Vol] Automated blood monocyte count 0.3-0.8 [facility] Monocytes/100 WBC Auto (Bld) on 02-05-2024 Monocytes/100 WBC (Bld) Automated monocyte % 1. 7-12.0 [facility] Neutrophils Auto (Bld) [#/Vo l]on 02-05-2024 Neutrophils (Bld) [#/Vol] Neutrophils [#/volume] in Blood by Automated count 1.4-6.5 [facility] Neutrophils/100 WBC Auto (Bl d)on 02-05-2024 Neutrophils/100 WBC (Bld) Automated neutrophil % 43.0-75.0 [facility] No Panel Informationon 02-04 Eosinophils # (Auto) 0.1 10 3/uL 0.0-0.7 [facility] Immature Granulocyte # (Auto) 0.01 10 3/uL 0.00-0.03 [facility] Platelet mean volume Auto (B ld) [Entitic vol]on 02-05-2024 Platelet mean volume (Bld) [Entitic vol] Platelet mean volume [Entitic volume] in Blood by Automated count Low 9.5-13.5 [facility] Platelets Auto (Bld) [#/Vol] on 02-05-2024 Platelets (Bld) [#/Vol] Platelets [#/vol ume] in Blood by Automated count 150-450 [facility] RBC Auto (Bld) [#/Vol]on RBC (Bld) [#/Vol] Erythrocytes [#/volu me] in Blood by Automated count 4.20-5.40 [facility] Serum or plasma anion gap de terminationon 02-05-2024 Anion gap [Moles/Vol] Serum or plasma an ion gap determination [facility] Automated epithelial cells c ount in urine sediment (number/area)on 07-27-2023 Epithelial cells Auto (Urine sed) [#/Area] RARE #/LPF NONE/RARE [facility] Automated leukocytes count i n urine sediment (number/area)on 07-27-2023 WBC Auto (Urine sed) [#/Area] NONE SEEN #/HPF 0-2 [facility] Automated urine specific gra vity by refractometryon 07-27-2023 Specific gravity Refractometry automated (U) [Rel density] 1.015 1.005-1.02 5 [facility] Bilirubin Auto test strip (U ) [Mass/Vol]on 07-27-2023 Bilirubin (U) [Mass/Vol] Negative NEGATIVE [facility] Casts typing in urine sedime nt by light microscopyon 07-27-2023 Casts LM Nom (Urine sed) NONE SEEN #/LPF NONE SEEN [facility] Color Auto (U)on 07-27-2023 Color (U) LT. YELLOW YELLOW [facility] Erythrocyte distribution wid th Auto (RBC) [Ratio]on 07-27-2023 Erythrocyte distribution width (RBC) [Ratio] 12.6 % 11.0-15.0 [facility] Estimated glomerular filtrat ion rate (GFR) non- Americanon 07-27-2023 GFR/1.73 sq M.predicted among non-blacks MDRD (S/P/Bld) [Vol rate/Area] 46 mL/min/{1.73_m2} >=60 [facility] Hematocrit Auto (Bld) [Volum e fraction]on 07-27-2023 Hematocrit (Bld) [Volume fraction] 39.4 % 36.0-48.0 [facility] Hemoglobin [Mass/volume] in Bloodon 07-27-2023 Hemoglobin (Bld) [Mass/Vol] 13.5 g/dL 12.0-16.0 [facility] Ketones Auto test strip (U) [Mass/Vol]on 07-27-2023 Ketones (U) [Mass/Vol] Negative NEGATIVE [facility] Laboratory - Chemistry and C hemistry - challengeon 07-27-2023 Albumin [Mass/Vol] 3.5 g/dL 3.4-5.0 [facility] Calcium [Mass/Vol] 9.3 mg/dL 8.5-10.1 [facility] Chloride [Moles/Vol] 96 mmol/L 98-107 [facility] CO2 [Moles/Vol] 28.4 mmol/L 21.0-32.0 [facility] Creatinine [Mass/Vol] 1.12 mg/dL 0.55-1.02 [facility] GFR/1.73 sq M.predicted MDRD (S/P/Bld) [Vol rate/Area] 56 mL/min/{1.73_m2} >=60 [facility] Glucose [Mass/Vol] 95 mg/dL 74-106 [facility] Magnesium [Mass/Vol] 2.0 mg/dL 1.8-2.4 [facility] Potassium [Moles/Vol] 4.1 mmol/L 3.5-5.1 [facility] Sodium [Moles/Vol] 131 mmol/L 136-145 [facility] Urate [Mass/Vol] 3.4 mg/dL 2.6-6.0 [facility] Urea nitrogen [Mass/Vol] 19.0 mg/dL 7.0-18.0 [facility] Urea nitrogen/Creatinine [Mass ratio] 17.0 mg/mg [facility] Laboratory - Urinalysison Protein (U) [Mass/Vol] 9.6 mg/dL <=11.9 [facility] Leukocytes [#/volume] correc chacho for nucleated erythrocytes in Blood by Automated counon 07-27-2023 WBC corrected for nucl RBC Auto (Bld) [#/Vol] 5.8 10 3/uL 4.0-11.0 [facility] MCH Auto (RBC) [Entitic mass ]on 07-27-2023 MCH (RBC) [Entitic mass] 29.9 pg 26.7-34.0 [facility] MCHC Auto (RBC) [Mass/Vol]on 07-27-2023 MCHC (RBC) [Mass/Vol] 34.3 g/dL 29.9-35.2 [facility] MCV Auto (RBC) [Entitic vol] on 07-27-2023 MCV (RBC) [Entitic vol] 87.2 fL 81.0-99.0 [facility] Mucus LM Ql (Urine sed)on Mucus Ql (Urine sed) NONE SEEN NONE SEEN [facility] No Panel Informationon 07-26 Urine Random Creatinine 100.05 mg/dL 20.0 0-300. 00 [facility] 25-Hydroxy Vitamin D Total 61.8 ng/mL [facility] Comment on above: <20 ng/mL Vit D defi cient20-<30 ng/mL Vit D ofgmmngyddyb27-500 ng/mL Vit D sufficient>100 ng/mL Potential Toxicity Parathyroid Hormone (Intact) 16 pg/mL 15-65 [facility] Comment on above: Performed at: - [employer] [address] [id number] Director: Lux Adorno PhD, Phone: [phone] Phosphorus Level 3.5 mg/dL 2.6-4.7 [facility] Platelet mean volume Auto (B ld) [Entitic vol]on 07-27-2023 Platelet mean volume (Bld) [Entitic vol] 9.1 fL 9.5-13.5 [facility] Platelets Auto (Bld) [#/Vol] on 07-27-2023 Platelets (Bld) [#/Vol] 209 10 3/uL 150-450 [facility] Protein Auto test strip (U) [Mass/Vol]on 07-27-2023 Protein (U) [Mass/Vol] Negative NEG/TRACE [facility] RBC Auto (Bld) [#/Vol]on RBC (Bld) [#/Vol] 4.52 10 6/uL 4.20-5.[address] [facility] Serum or plasma anion gap de terminationon 07-27-2023 Anion gap [Moles/Vol] 10.7 mmol/L [facility] Specific gravity Auto test s trip (U) [Rel density]on 07-27-2023 Specific gravity (U) [Rel density] CLEAR CLEAR [facility] Urine bacteria detection by automated methodon 07-27-2023 Bacteria Auto Ql (U) NONE SEEN #/HPF NONE SEEN [facility] Urine glucose measurement by test strip (mass/volume)on 07-27-2023 Glucose Test strip (U) [Mass/Vol] Negative NEGATIVE [facility] Urine hemoglobin detection b y automated test stripon 07-27-2023 Hemoglobin Auto test strip Ql (U) Negative NEGATIVE [facility] Urine nitrite detection by a utomated test stripon 07-27-2023 Nitrite Auto test strip Ql (U) SMALL NEGATIVE [facility] Nitrite Auto test strip Ql (U) Negative NEGATIVE [facility] Urine protein/creatinine rat ioon 07-27-2023 Protein/Creatinine (U) [Ratio] 0.10 [facility] Urine sediment crystal ident ification by light microscopyon 07-27-2023 Crystals LM Nom (Urine sed) None Seen #/HPF None Seen [facility] Urine sediment leukocyte cou nt by microscopy (number/high power field)on 07-27-2023 WBC LM.HPF (Urine sed) [#/Area] 2-5 #/HPF NONE SEEN [facility] Urobilinogen Auto test strip (U) [Mass/Vol]on 07-27-2023 Urobilinogen Qn (U) 1.0 {Carlos'U}/dL 0.2-1.0 [facility] pH Auto test strip (U)on pH (U) 7.0 [pH] 5.0-9.0 [facility] Calcium [Mass/volume] in Ser um or PlasmaOrdered By: Elsa Amin on 01-29-2023 Calcium [Mass/Vol] 9.5 mg/dL 8.6-10.3 [facility] Carbon dioxide, total [Moles /volume] in Serum or PlasmaOrdered By: Elsa Amin on 01-29-2023 CO2 [Moles/Vol] 25.5 mmol/L 21.0-31.0 [facility] Chloride [Moles/volume] in S lorraine or PlasmaOrdered By: Elsa Amin on 01-29-2023 Chloride [Moles/Vol] 96 mmol/L 98-107 [facility] Creatinine [Mass/volume] in Serum or PlasmaOrdered By: Elsa Amin on 01-29-2023 Creatinine [Mass/Vol] 1.18 mg/dL 0.60-1.20 [facility] Glucose [Mass/volume] in Ser um or PlasmaOrdered By: Elsa Amin on 01-29-2023 Glucose [Mass/Vol] 82 mg/dL 70-100 [facility] Comment on above: ADA recommended refe rence rangeRandom Glucose Reference Range is dependent on time and content of last meal. Glucose of more than 200 mg/dL in a nonstressed, ambulatory subject supports the diagnosis of Diabetes Mellitus. No Panel InformationOrdered By: Elsa Amin on 01-29-2023 Estimated GFR (CKD-EPI) 45.829 mL/Min [facility] Creatinine Clearance (Chem 31.19 [facility] Potassium [Moles/volume] in Serum or PlasmaOrdered By: Elsa Amin on 01-29-2023 Potassium [Moles/Vol] 4.0 mmol/L 3.5-5.1 [facility] Serum or plasma anion gap de terminationOrdered By: Elsa Amin on 01-29-2023 Anion gap [Moles/Vol] 12.5 mmol/L 6.0-15.0 [facility] Sodium [Moles/volume] in Ser um or PlasmaOrdered By: Elsa Amin on 01-29-2023 Sodium [Moles/Vol] 130 mmol/L 136-145 [facility] Urea nitrogen [Mass/volume] in Serum or PlasmaOrdered By: Elsa Amin on 01-29-2023 Urea nitrogen [Mass/Vol] 24 mg/dL 7- [facility] Activated partial thrombopla stin time (aPTT) in platelet poor plasma by coagulation aOrdered By: Willie Lyon on 01-27-2023 aPTT Coag (PPP) [Time] 31.7 s 25.1-36.5 [facility] Comment on above: A hematocrit value g reater than 55% may lead to inaccurate results in coagulation testing. Patients having hematocrit values >55% require a special collection tube for coagulation studies. Please contact the laboratory at [phone] for redraw instructions. Alanine aminotransferase [En zymatic activity/volume] in Serum or PlasmaOrdered By: Willie Lyon on 01-27-2023 ALT [Catalytic activity/Vol] 9 U/L 7-52 [facility] Albumin [Mass/volume] in Ser um or Plasma by Bromocresol green (BCG) dye binding methoOrdered By: Willie Lyon on 01-27-2023 Albumin BCG dye [Mass/Vol] 4.0 g/dL 3.5-5.7 [facility] Alkaline phosphatase [Enzyma tic activity/volume] in Serum or PlasmaOrdered By: Willie Lyon on 01-27-2023 ALP [Catalytic activity/Vol] 46 U/L 34-104 [facility] Aspartate aminotransferase [ Enzymatic activity/volume] in Serum or PlasmaOrdered By: Willie Lyon on 01-27-2023 AST [Catalytic activity/Vol] 19 U/L 13-39 [facility] Basophils Auto (Bld) [#/Vol] Ordered By: Willie Lyon on 01-27-2023 Basophils (Bld) [#/Vol] 0.1 10*3/uL 0.0-0.2 [facility] Basophils/100 WBC Auto (Bld) Ordered By: Willie Lyon on 01-27-2023 Basophils/100 WBC (Bld) 1.0 % . [facility] Bilirubin.total [Mass/volume ] in Serum or PlasmaOrdered By: Willie Lyon on 01-27-2023 Bilirubin [Mass/Vol] 0.7 mg/dL 0.3-1.0 [facility] Calcium [Mass/volume] in Ser um or PlasmaOrdered By: Willie Lyon on 01-27-2023 Calcium [Mass/Vol] 9.8 mg/dL 8.6-10.3 [facility] Carbon dioxide, total [Moles /volume] in Serum or PlasmaOrdered By: Willie Lyon on 01-27-2023 CO2 [Moles/Vol] 27.4 mmol/L 21.0-31.0 [facility] Chloride [Moles/volume] in S lorraine or PlasmaOrdered By: Willie Lyon on 01-27-2023 Chloride [Moles/Vol] 98 mmol/L 98-107 [facility] Creatine kinase [Enzymatic a ctivity/volume] in Serum or PlasmaOrdered By: Willie Lyon on 01-27-2023 CK [Catalytic activity/Vol] 52 U/L 30-223 [facility] Creatinine [Mass/volume] in Serum or PlasmaOrdered By: Willie Lyon on 01-27-2023 Creatinine [Mass/Vol] 1.45 mg/dL 0.60-1.20 [facility] Eosinophils Auto (Bld) [#/Vo l]Ordered By: Willie Lyon on 01-27-2023 Eosinophils (Bld) [#/Vol] 0.1 10*3/uL 0.0-0.45 [facility] Eosinophils/100 WBC Auto (Bl d)Ordered By: Willie Lyon on 01-27-2023 Eosinophils/100 WBC (Bld) 1.7 % . [facility] Erythrocyte distribution wid th Auto (RBC) [Ratio]Ordered By: Willie Lyon on 01-27-2023 Erythrocyte distribution width (RBC) [Ratio] 13.7 % 11.9-15.3 [facility] Globulin Calc (S) [Mass/Vol] Ordered By: Willie Lyon on 01-27-2023 Globulin (S) [Mass/Vol] 2.9 g/dL [facility] Glucose [Mass/volume] in Ser um or PlasmaOrdered By: Willie Lyon on 01-27-2023 Glucose [Mass/Vol] 105 mg/dL 70-100 [facility] Comment on above: ADA recommended refe rence rangeRandom Glucose Reference Range is dependent on time and content of last meal. Glucose of more than 200 mg/dL in a nonstressed, ambulatory subject supports the diagnosis of Diabetes Mellitus. Hematocrit Auto (Bld) [Volum e fraction]Ordered By: Willie Lyon on 01-27-2023 Hematocrit (Bld) [Volume fraction] 41.4 % 34.0-46.4 [facility] Hemoglobin [Mass/volume] in BloodOrdered By: Willie Lyon on 01-27-2023 Hemoglobin (Bld) [Mass/Vol] 14.0 g/dL 11.8-15.4 [facility] INR in Platelet poor plasma by Coagulation assayOrdered By: Willie Lyon on 01-27-2023 INR Coag (PPP) [Relative time] 1.0 {INR} [facility] Comment on above: INR Therapeutic Rang [...] RBC Auto (Bld) [#/Vol] 6.9 10*3/uL 3.8-11.6 [facility] Lymphocytes Auto (Bld) [#/Vo l]Ordered By: Willie Lyon on 01-27-2023 Lymphocytes (Bld) [#/Vol] 1.6 10*3/uL 1.00-4.8 [facility] Lymphocytes/100 WBC Auto (Bl d)Ordered By: Willie Lyon on 01-27-2023 Lymphocytes/100 WBC (Bld) 23.7 % . [facility] MCH Auto (RBC) [Entitic mass ]Ordered By: Willie Lyon on 01-27-2023 MCH (RBC) [Entitic mass] 29.7 pg 24.7-34.3 [facility] MCHC Auto (RBC) [Mass/Vol]Or dered By: Willie Lyon on 01-27-2023 MCHC (RBC) [Mass/Vol] 33.9 g/dL 32.0-35.0 [facility] MCV Auto (RBC) [Entitic vol] Ordered By: Willie Lyon on 01-27-2023 MCV (RBC) [Entitic vol] 87.5 fL 80-100 [facility] Magnesium [Mass/volume] in S lorraine or PlasmaOrdered By: Willie Lyon on 01-27-2023 Magnesium [Mass/Vol] 2.0 mg/dL 1.9-2.7 [facility] Monocyte distribution width [Entitic volume] in Blood by AutomatedOrdered By: Willie Lyon on 01-27-2023 Monocyte distribution width Auto (Bld) [Entitic vol] 18.32 % 0.00-20.00 [facility] Monocytes Auto (Bld) [#/Vol] Ordered By: Willie Lyon on 01-27-2023 Monocytes (Bld) [#/Vol] 0.5 10*3/uL 0.0-0.8 [facility] Monocytes/100 WBC Auto (Bld) Ordered By: Willie Lyon on 01-27-2023 Monocytes/100 WBC (Bld) 7.4 % . [facility] Natriuretic peptide B [Mass/ Vol]Ordered By: Willie Lyon on 01-27-2023 Natriuretic peptide B (Bld) [Mass/Vol] 359.0 pg/mL 5-100 [facility] Neutrophils Auto (Bld) [#/Vo l]Ordered By: Willie Lyon on 01-27-2023 Neutrophils (Bld) [#/Vol] 4.6 10*3/uL 1.8-7.7 [facility] Neutrophils/100 WBC Auto (Bl d)Ordered By: Willie Lyon on 01-27-2023 Neutrophils/100 WBC (Bld) 66.2 % . [facility] No Panel InformationOrdered By: Willie Lyon on 01-27-2023 Estimated GFR (CKD-EPI) 35.790 mL/Min [facility] Creatinine Clearance (Chem 25.39 [facility] Nucleated erythrocytes [Pres ence] in Blood by Automated countOrdered By: Willie Lyon on 01-27-2023 Nucleated RBC Auto Ql (Bld) 0.1 /100{WBC} 0-0.5 [facility] Platelet mean volume Auto (B ld) [Entitic vol]Ordered By: Willie Lyon on 01-27-2023 Platelet mean volume (Bld) [Entitic vol] 7.7 fL 6.3-10.7 [facility] Platelets Auto (Bld) [#/Vol] Ordered By: Willie Lyon on 01-27-2023 Platelets (Bld) [#/Vol] 281 10*3/uL 150-450 [facility] Potassium [Moles/volume] in Serum or PlasmaOrdered By: Willie Lyon on 01-27-2023 Potassium [Moles/Vol] 4.6 mmol/L 3.5-5.1 [facility] Protein [Mass/volume] in Ser um or PlasmaOrdered By: Willie Lyon on 01-27-2023 Protein [Mass/Vol] 6.9 g/dL 6.4-8.9 [facility] Prothrombin time (PT)Ordered By: Willie Lyon on 01-27-2023 PT Coag (PPP) [Time] 12.2 s 9.0-12.9 [facility] Comment on above: A hematocrit value g reater than 55% may lead to inaccurate results in coagulation testing. Patients having hematocrit values >55% require a special collection tube for coagulation studies. Please contact the laboratory at [phone] for redraw instructions. RBC Auto (Bld) [#/Vol]Ordere d By: Willie Lyon on 01-27-2023 RBC (Bld) [#/Vol] 4.73 10*6/uL 3.60-5.[address] [facility] Serum or plasma albumin/glob ulin mass ratioOrdered By: Willie Lyon on 01-27-2023 Albumin/Globulin [Mass ratio] 1.4 {ratio} [facility] Serum or plasma anion gap de terminationOrdered By: Willie Lyon on 01-27-2023 Anion gap [Moles/Vol] 11.2 mmol/L 6.0-15.0 [facility] Sodium [Moles/volume] in Ser um or PlasmaOrdered By: Willie Lyon on 01-27-2023 Sodium [Moles/Vol] 132 mmol/L 136-145 [facility] Thyrotropin [Units/volume] i n Serum or PlasmaOrdered By: Willie Lyon on 01-27-2023 TSH Qn 0.18 m[IU]/L 0.45-5.33 [facility] Troponin I.cardiac [Mass/vol ume] in Serum or Plasma by Detection limit <= 0.01 ng/Ordered By: Elsa Amin on 01-27-2023 Troponin I.cardiac DL <= 0.01 ng/mL [Mass/Vol] 29.5 pg/mL 0.0-15.0 [facility] Troponin I.cardiac [Mass/vol ume] in Serum or Plasma by Detection limit <= 0.01 ng/Ordered By: Willie Lyon on 01-27-2023 Troponin I.cardiac DL <= 0.01 ng/mL [Mass/Vol] 47.3 pg/mL 0.0-15.0 [facility] Urea nitrogen [Mass/volume] in Serum or PlasmaOrdered By: Willie Lyon on 01-27-2023 Urea nitrogen [Mass/Vol] 30 mg/dL 7-25 [facility] WBC Auto (Bld) [#/Vol]Ordere d By: Willie Lyon on 01-27-2023 WBC (Bld) [#/Vol] 6.9 10*3/uL 3.8-11.6 [facility] PTH INTACTon 06-04-2022 PTH, Intact 10 pg/mL Critically low 15-65 [facility] Comment on above: Performed By: #### P THINT #### [facility] [address] [place] [address] Dr. Dario Gil FREE T4on 06-03-2022 Free T4 [Mass/Vol] 1.03 ng/dL Normal 0.76-1.46 [facility] Comment on above: Performed By: #### H H #### [facility] [address] [place] [address] Dr. Dario Gil HEMOGRAM AND PLATELon 2022 Hematocrit (Bld) [Volume fraction] 39.9 % Normal 36.0-48.0 [facility] Comment on above: Performed By: #### H H #### [facility] [address] [place] [address] Dr. Dario Gil Hemoglobin (Bld) [Mass/Vol] 13.9 g/dL Normal 12.0-16.0 [facility] Comment on above: Performed By: #### H H #### [facility] [address] [place] [address] Dr. Dario Gil MCH (RBC) [Entitic mass] 30.6 pg Normal 26.7-34.0 [facility] Comment on above: Performed By: #### H H #### [facility] [address] [place] [address] Dr. Dario Gil MCHC (RBC) [Mass/Vol] 34.8 g/dL Normal 29.9-35.2 [facility] Comment on above: Performed By: #### H H #### [facility] [address] [place] [address] Dr. Dario Gil MCV (RBC) [Entitic vol] 87.9 fL Normal 81.0-99.0 [facility] Comment on above: Performed By: #### H H #### [facility] [address] [place] [address] Dr. Dario Gil PLT 232 103/ul Normal 150-450 [facility] Comment on above: Performed By: #### H H #### [facility] [address] [place] [address] Dr. Dario Gil RBC 4.54 106/ul Normal 4.20-5.40 [facility] Comment on above: Performed By: #### H H #### [facility] [address] [place] [address] Dr. Dario Gil WBC 5.8 103/ul Normal 4.0-11.0 [facility] Comment on above: Performed By: #### H H #### [facility] [address] [place] [address] Dr. Dario Gil MAGNESIUMon 06-03-2022 Magnesium [Mass/Vol] 1.8 mg/dL Normal 1.8-2.4 [facility] Comment on above: Performed By: #### M G, URIC, RENAL #### [facility] [address] [address] [address] Dario Gil RENAL FUNCTION PANELon 06-03 Albumin [Mass/Vol] 4.0 g/dL Normal 3.4-5.0 [facility] Comment on above: Performed By: #### M G, URIC, RENAL #### [facility] [address] [address] [address] Dario Gil Calcium [Mass/Vol] 9.7 mg/dL Normal 8.5-10.1 [facility] Comment on above: Performed By: #### M G, URIC, RENAL #### [facility] [address] [address] [address] Dario Gil Chloride [Moles/Vol] 98 mmol/L Normal 98-107 [facility] Comment on above: Performed By: #### M G, URIC, RENAL #### [facility] [address] [place] [address] Dr. Dario Gil CO2 [Moles/Vol] 29.6 mmol/L Normal 21.0-32.0 [facility] Comment on above: Performed By: #### M G, URIC, RENAL #### [facility] [address] [address] [address] Dario Gil Creatinine [Mass/Vol] 1.37 mg/dL Critically high 0.55-1.02 [facility] Comment on above: Performed By: #### M G, URIC, RENAL #### [facility] [address] [place] [address] Dr. Dario Gil EGFR-AF CITIZ[place] 45 mL/min/1.73m2 Critically low >=60 [facility] Comment on above: Performed By: #### M G, URIC, RENAL #### [facility] [address] [place] [address] Dr. Dario Gil EGFR-NON AF CITIZEN [place] 37 mL/min/1.73m2 Critically low >=60 [facility] Comment on above: Performed By: #### M G, URIC, RENAL #### [facility] [address] [address] [address] Dario Gil Glucose [Mass/Vol] 99 mg/dL Normal 74-106 [facility] Comment on above: Performed By: #### M G, URIC, RENAL #### [facility] [address] [place] [address] Dr. Dario Gil Phosphate [Mass/Vol] 3.5 mg/dL Normal 2.6-4.7 [facility] Comment on above: Performed By: #### M G, URIC, RENAL #### [facility] [address] [place] [address] Dr. Dario Gil Potassium [Moles/Vol] 4.5 mmol/L Normal 3.5-5.1 [facility] Comment on above: Performed By: #### M G, URIC, RENAL #### [facility] [address] [place] [address] Dr. Dario Gil Sodium [Moles/Vol] 134 mmol/L Critically low 136-145 [facility] Comment on above: Performed By: #### M G, URIC, RENAL #### [facility] [address] [place] [address] Dr. Dario Gil Urea nitrogen [Mass/Vol] 26.0 mg/dL Critically high 7.0-18.0 [facility] Comment on above: Performed By: #### M G, URIC, RENAL #### [facility] [address] [place] [address] Dr. Dario Gil TSHon 06-03-2022 TSH 8.041 uIU/mL Critically high 0.358-3.74 0 [facility] Comment on above: Performed By: #### T SH #### [facility] [address] [place] [address] Dr. Dario Gil UA RANDOM W/MICROSCOPICon BACTERIA NONE SEEN Normal NONE SEEN [facility] Comment on above: Performed By: #### H H #### [facility] [address] [place] [address] Dr. Dario Gil Bilirubin Ql (U) Negative Normal NEGATIVE [facility] Comment on above: Performed By: #### H H #### [facility] [address] [place] [address] Dr. Dario Gil CAST NONE SEEN Normal NONE SEEN [facility] Comment on above: Performed By: #### H H #### [facility] [address] [place] [address] Dr. Dario Gil Clarity (U) CLEAR Normal CLEAR [facility] Comment on above: Performed By: #### H H #### [facility] [address] [place] [address] Dr. Dario Gil Color (U) LT. YELLOW Normal YELLOW [facility] Comment on above: Performed By: #### H H #### [facility] [address] [place] [address] Dr. Dario Gil Crystals LM Nom (Urine sed) NONE SEEN Normal NONE SEEN [facility] Comment on above: Performed By: #### H H #### [facility] [address] [place] [address] Dr. Dario Gil Epithelial cells LM Ql (Urine sed) FEW Abnormal NONE SEEN /RARE [facility] Comment on above: Performed By: #### H H #### [facility] [address] [place] [address] Dr. Dario Gil Glucose Ql (U) Negative Normal NEGATIVE [facility] Comment on above: Performed By: #### H H #### [facility] [address] [place] [address] Dr. Dario Gil Hemoglobin Ql (U) Negative Normal NEGATIVE [facility] Comment on above: Performed By: #### H H #### [facility] [address] [place] [address] Dr. Dario Gil Ketones Ql (U) Negative Normal NEGATIVE [facility] Comment on above: Performed By: #### H H #### [facility] [address] [place] [address] Dr. Dario Gil LEUKOCYTES TRACE Abnormal NEGATIVE [facility] Comment on above: Performed By: #### H H #### [facility] [address] [place] [address] Dr. Dario Gil MUCOUS NONE SEEN Normal NONE SEEN [facility] Comment on above: Performed By: #### H H #### [facility] [address] [place] [address] Dr. Dario Gil Nitrite Ql (U) Negative Normal NEGATIVE [facility] Comment on above: Performed By: #### H H #### [facility] [address] [place] [address] Dr. Dario Gil pH (U) 5.5 [pH] Normal 5-9 [facility] Comment on above: Performed By: #### H H #### [facility] [address] [place] [address] Dr. Dario Gil RBC 0-2 Normal 0-2 [facility] Comment on above: Performed By: #### H H #### [facility] [address] [place] [address] Dr. Dario Gil SPEC GRAVITY 1.010 Normal 1.005-<=1. 025 [facility] Comment on above: Performed By: #### H H #### [facility] [address] [place] [address] Dr. Dario Gil UA PROTEIN Negative Normal NEGATIVE/ TRACE [facility] Comment on above: Performed By: #### H H #### [facility] [address] [place] [address] Dr. Dario Gil Urobilinogen Qn (U) 0.2 {Carlos'U}/dL Normal 0.2 - 1. 0 [facility] Comment on above: Performed By: #### H H #### [facility] [address] [place] [address] Dr. Dario Gil WBC 0-2 Abnormal NONE SEEN [facility] Comment on above: Performed By: #### H H #### [facility] [address] [place] [address] Dr. Dario Gil URIC ACID SERUMon 06-03-2022 Urate [Mass/Vol] 5.1 mg/dL Normal 2.6-6.0 [facility] Comment on above: Performed By: #### M G, URIC, RENAL #### [facility] [address] [place] [address] Dr. Dario Gil URINE T PROTEIN CREAT RATIOo n 06-03-2022 Protein (U) [Mass/Vol] 5.5 mg/dL Normal <=12.0 [facility] Comment on above: Performed By: #### H H #### [facility] [address] [place] [address] Dr. Dario Gil UR PROT CREAT RAT 0.07 Normal [facility] Comment on above: Performed By: #### H H #### [facility] [address] [place] [address] Dr. Dario Gil URINE CREAT 77.51 mg/dL Normal 20.00-300. 00 [facility] Comment on above: Performed By: #### H H #### [facility] [address] [place] [address] Dr. Dario Gil VITAMIN D 25 OHon 06-03-2022 VIT D 25-OH 58.1 ng/mL Normal [facility] Comment on above: Performed By: #### H H #### [facility] [address] [place] [address] Dr. Dario Gil VIT D RANGES SEE BELOW Normal [facility] Comment on above: Result Comment: <20 ng/mL Vit D deficient 20 - <30 ng/mL Vit D insufficient 30 - 100 ng/mL Vit D sufficient >100 ng/mL Potential Toxicity Performed By: #### H H #### [facility] [address] [place] [address] Dr. Dario Gil Office Visit (Cardiology)on 03-18-2022 [...] the office if new symptoms arise. Dr. Ramos as scheduled Chief Complaint Blood pressure f/u: 'doing ok' JANELLE BURT is being seen for a 8 week follow-up of hypertension. Patient presents to the office ambulatory with steady gait. Last evaluated in clinic Dr. Ramos December 2021. At that time, losartan increased [...] MOUTH TWICE A DAY NEEDED Allergies Medication [id number] Adverse Reaction; Shortness of breath;; Recorded [...] and no PND. Vitals Vital Signs Recorded: [id number] 11:35AMRecorded: [id number] 11:23AM [id number], [id number], LUE, Sitting [id number], [id number], LUE, Sitting Heart Rate60, L Radial Height5 ft 4 in [id number] lb BMI Rcsilrhkgl38.2 kg/m2 BSA Calculated1.69 Tobacco Useb) No Falls [...] and affect . Signatures Adrien Avalos MSN, [employer] LOADING MACHINE OPERATOR-RETURNS PROCESSOR, PMHNP-BC [facility] Please excuse any errors in grammar or translation related to this dictation. Voice recognition software was utilized to prepare this document. Electronically (more content not included)... Normal [employer] Tobacco Screening.on 022 Fall risk assessment a) [facility] the [facility] Work Phone: Tobacco use status CPHS b) No M [facility] 250 DO Work Phone: PROF CHEM 8 (BAS METB)on Anion gap [Moles/Vol] 5.7 mmol/L Normal [facility] Comment on above: Performed By: #### H H #### [facility] [address] [address] [address] Dario Gil Calcium [Mass/Vol] 9.3 mg/dL Normal 8.5-10.1 [facility] Comment on above: Performed By: #### H H #### [facility] [address] [address] [address] Dario Gil Chloride [Moles/Vol] 97 mmol/L Critically low 98-107 [facility] Comment on above: Performed By: #### H H #### [facility] [address] [address] [address] Dario Gil CO2 [Moles/Vol] 31.9 mmol/L Normal 21.0-32.0 [facility] Comment on above: Performed By: #### H H #### [facility] [address] [address] [address] Dario Gil Creatinine [Mass/Vol] 1.34 mg/dL Critically high 0.55-1.02 [facility] Comment on above: Performed By: #### H H #### [facility] [address] [address] [address] Dario Gil EGFR-AF CITIZEN OF [place] 46 mL/min/1.73m2 Critically low >=60 [facility] Comment on above: Performed By: #### H H #### [facility] [address] [address] [address] Dario Gil EGFR-NON AF CITIZEN OF [place] 38 mL/min/1.73m2 Critically low >=60 [facility] Comment on above: Performed By: #### H H #### [facility] [address] [address] [address] Dario Gil Glucose [Mass/Vol] 92 mg/dL Normal 74-106 [facility] Comment on above: Performed By: #### H H #### [facility] [address] [address] [address] Dario Gil Potassium [Moles/Vol] 4.6 mmol/L Normal 3.5-5.1 [facility] Comment on above: Performed By: #### H H #### [facility] [address] [address] [address] Dario Gil Sodium [Moles/Vol] 130 mmol/L Critically low 136-145 [facility] Comment on above: Performed By: #### H H #### [facility] [address] [address] [address] Dario Gil Urea nitrogen [Mass/Vol] 28.0 mg/dL Critically high 7.0-18.0 [facility] Comment on above: Performed By: #### H H #### [facility] [address] [address] [address] Dario Gil Urea nitrogen/Creatinine [Mass ratio] 20.9 mg/mg Normal [facility] Comment on above: Performed By: #### H H #### [facility] [address] [place] [address] Dr. Dario Gil Office Visit (Cardiology)on 01-15-2022 [...] MOUTH TWICE A DAY NEEDED Allergies Medication [id number] Adverse Reaction; Shortness of breath;; Recorded [...] . Signatures Electronically signed by : Michael Ramos DO; Jan 15 2022 12:55PM EST (Author) Appendix #1 Vital Signs Patient: JANELLE BURT; : 1940; Recorded: 15Jan2022 11:16AMRecorded: [id number] 10:55AMRecorded: [id number] 10:48AM [id number], LUE, [id number], RUE, Sitting [id number], LUE, [id number], RUE, Sitting Heart Rate60, R Radial Height5 ft 4 in Sblcyz891 lb BMI [id number] (more content not included)... Normal [employer] Tobacco Screening.on 022 Adult depression screening assessment No [facility] [employer] 250 DO Work Phone: Fall risk assessment a) No falls within the last year [facility] [employer] 250 DO Work Phone: Tobacco use status CPHS b) No M [facility] [employer] 250 DO Work Phone: PTH INTACTon 12-05-2021 PTH, Intact 14 pg/mL Critically low 15-65 [facility] Comment on above: Performed By: #### P THINT #### [facility] [address] [address] [address] Dario Gil VIT D 25-OH LABCORPon 2021 Vitamin D, 25-Hydroxy 22.8 ng/mL Critically low 30.0-100.0 [facility] Comment on above: Result Comment: Eliza min D deficiency has been defined by the [place] of Medicine and an Endocrine Society practice guideline as a level of serum 25-OH vitamin D less than 20 ng/mL (1,2). The Endocrine Society went on to further define vitamin D insufficiency as a level between 21 and 29 ng/mL (2). 1. IOM ([place] of Medicine). 2010. Dietary reference intakes for calcium and D. [place]: The National Academies Press. 2. Mark WEEMS, [place]in [place], Coni WARD, et al. Evaluation, treatment, and prevention of vitamin D deficiency: an Endocrine Society clinical practice guideline. JCEM. 2010; 96(7):1911-30. Performed By: #### V ITADLC #### [facility] [address] [place] [address] Dr. Dario Gil HEMOGRAM AND PLATELon 2021 Hematocrit (Bld) [Volume fraction] 44.0 % Normal 36.0-48.0 [facility] Comment on above: Performed By: #### H H #### [facility] [address] [address] [address] Dario Gil Hemoglobin (Bld) [Mass/Vol] 14.9 g/dL Normal 12.0-16.0 [facility] Comment on above: Performed By: #### H H #### [facility] [address] [place] [address] Dr. Dario Gil MCH (RBC) [Entitic mass] 29.7 pg Normal 26.7-34.0 [facility] Comment on above: Performed By: #### H H #### [facility] [address] [place] [address] Dr. Dario Gil MCHC (RBC) [Mass/Vol] 33.9 g/dL Normal 29.9-35.2 [facility] Comment on above: Performed By: #### H H #### [facility] [address] [place] [address] Dr. Dario Gil MCV (RBC) [Entitic vol] 87.8 fL Normal 81.0-99.0 [facility] Comment on above: Performed By: #### H H #### [facility] [address] [place] [address] Dr. Dario Gil PLT 245 103/ul Normal 150-450 [facility] Comment on above: Performed By: #### H H #### [facility] [address] [place] [address] Dr. Dario Gil RBC 5.01 106/ul Normal 4.20-5.40 [facility] Comment on above: Performed By: #### H H #### [facility] [address] [place] [address] Dr. Dario Gil WBC 5.8 103/ul Normal 4.0-11.0 [facility] Comment on above: Performed By: #### H H #### [facility] [address] [place] [address] Dr. Dario Gil MAGNESIUMon 12-04-2021 Magnesium [Mass/Vol] 1.9 mg/dL Normal 1.8-2.4 [facility] Comment on above: Performed By: #### H H #### [facility] [address] [place] [address] Dr. Dario Gil RENAL FUNCTION PANELon 12-04 Albumin [Mass/Vol] 3.9 g/dL Normal 3.4-5.0 [facility] Comment on above: Performed By: #### H H #### [facility] [address] [place] [address] Dr. Dario Gil Calcium [Mass/Vol] 9.4 mg/dL Normal 8.5-10.1 [facility] Comment on above: Performed By: #### H H #### [facility] [address] [place] [address] Dr. Dario Gil Chloride [Moles/Vol] 96 mmol/L Critically low 98-107 [facility] Comment on above: Performed By: #### H H #### [facility] [address] [place] [address] Dr. Dario Gil CO2 [Moles/Vol] 30.8 mmol/L Normal 21.0-32.0 [facility] Comment on above: Performed By: #### H H #### [facility] [address] [place] [address] Dr. Dario Gil Creatinine [Mass/Vol] 1.25 mg/dL Critically high 0.55-1.02 [facility] Comment on above: Performed By: #### H H #### [facility] [address] [place] [address] Dr. Dario Gil EGFR-AF [place]IZ[place] 50 mL/min/1.73m2 Critically low >=60 [facility] Comment on above: Performed By: #### H H #### [facility] [address] [place] [address] Dr. Dario Gil EGFR-NON AF CITIZEN [place] 41 mL/min/1.73m2 Critically low >=60 [facility] Comment on above: Performed By: #### H H #### [facility] [address] [place] [address] Dr. Dario Gil Glucose [Mass/Vol] 93 mg/dL Normal 74-106 [facility] Comment on above: Performed By: #### H H #### [facility] [address] [place] [address] Dr. Dario Gil Phosphate [Mass/Vol] 3.4 mg/dL Normal 2.6-4.7 [facility] Comment on above: Performed By: #### H H #### [facility] [address] [address] [address] Dario Gil Potassium [Moles/Vol] 4.2 mmol/L Normal 3.5-5.1 [facility] Comment on above: Performed By: #### H H #### [facility] [address] [place] [address] Dr. Dario Gil Sodium [Moles/Vol] 133 mmol/L Critically low 136-145 [facility] Comment on above: Performed By: #### H H #### [facility] [address] [place] [address] Dr. Dario Gil Urea nitrogen [Mass/Vol] 20.0 mg/dL Critically high 7.0-18.0 [facility] Comment on above: Performed By: #### H H #### [facility] [address] [place] [address] Dr. Dario Gil UA RANDOM W/MICROSCOPICon BACTERIA NONE SEEN Normal NONE SEEN [facility] Comment on above: Performed By: #### U AMIC #### [facility] [address] [place] [address] Dr. Dario Gil Bilirubin Ql (U) Negative Normal NEGATIVE [facility] Comment on above: Performed By: #### U AMIC #### [facility] [address] [place] [address] Dr. Dario Gil CAST NONE SEEN Normal NONE SEEN [facility] Comment on above: Performed By: #### U AMIC #### [facility] [address] [place] [address] Dr. Dario Gil Clarity (U) CLEAR Normal CLEAR [facility] Comment on above: Performed By: #### U AMIC #### [facility] [address] [place] [address] Dr. Dario Gil Color (U) LT. YELLOW Normal YELLOW [facility] Comment on above: Performed By: #### U AMIC #### [facility] [address] [place] [address] Dr. Dario Gil Crystals LM Nom (Urine sed) NONE SEEN Normal NONE SEEN [facility] Comment on above: Performed By: #### U AMIC #### [facility] [address] [place] [address] Dr. Dario Gil Epithelial cells LM Ql (Urine sed) FEW Abnormal NONE SEEN /RARE [facility] Comment on above: Performed By: #### U AMIC #### [facility] [address] [place] [address] Dr. Dario Gil Glucose Ql (U) Negative Normal NEGATIVE [facility] Comment on above: Performed By: #### U AMIC #### [facility] [address] [address] [address] Dario Gil Hemoglobin Ql (U) Negative Normal NEGATIVE [facility] Comment on above: Performed By: #### U AMIC #### [facility] [address] [place] [address] Dr. Dario Gil Ketones Ql (U) Negative Normal NEGATIVE [facility] Comment on above: Performed By: #### U AMIC #### [facility] [address] [place] [address] Dr. Dario Gil LEUKOCYTES SMALL Abnormal NEGATIVE [facility] Comment on above: Performed By: #### U AMIC #### [facility] [address] [place] [address] Dr. Dario Gil MUCOUS NONE SEEN Normal NONE SEEN [facility] Comment on above: Performed By: #### U AMIC #### [facility] [address] [address] [address] Dario Gil Nitrite Ql (U) Negative Normal NEGATIVE [facility] Comment on above: Performed By: #### U AMIC #### [facility] [address] [address] [address] Dario Gil pH (U) 7.0 [pH] Normal 5-9 [facility] Comment on above: Performed By: #### U AMIC #### [facility] [address] [place] [address] Dr. Dario Gil RBC 0-2 Normal 0-2 [facility] Comment on above: Performed By: #### U AMIC #### [facility] [address] [place] [address] Dr. Dario Gil SPEC GRAVITY 1.010 Normal 1.005-<=1. 025 [facility] Comment on above: Performed By: #### U AMIC #### [facility] [address] [place] [address] Dr. Dario Gil UA PROTEIN Negative Normal NEGATIVE/ TRACE [facility] Comment on above: Performed By: #### U AMIC #### [facility] [address] [place] [address] Dr. Dario Gil Urobilinogen Qn (U) 0.2 {Carlos'U}/dL Normal 0.2 - 1. 0 [facility] Comment on above: Performed By: #### U AMIC #### [facility] [address] [place] [address] Dr. Dario Gil WBC 0-2 Abnormal NONE SEEN [facility] Comment on above: Performed By: #### U AMIC #### [facility] [address] [place] [address] Dr. Dario Gil URIC ACID SERUMon 12-04-2021 Urate [Mass/Vol] 5.3 mg/dL Normal 2.6-6.0 [facility] Comment on above: Performed By: #### H H #### [facility] [address] [place] [address] Dr. Dario Gil URINE T PROTEIN CREAT RATIOo n 12-04-2021 Protein (U) [Mass/Vol] 6.0 mg/dL Normal <=12.0 [facility] Comment on above: Performed By: #### H H #### [facility] [address] [place] [address] Dr. Dario Gil UR PROT CREAT RAT 0.06 Normal [facility] Comment on above: Performed By: #### H H #### [facility] [address] [place] [address] Dr. Dario Gil URINE CREAT 96.21 mg/dL Normal 20.00-300. 00 [facility] Comment on above: Performed By: #### H H #### [facility] [address] [address] [address] Dario Gil Tobacco Screening.on 021 Fall risk assessment a) No falls within the last year [facility] 250 DO Work Phone: Tobacco use status CPHS b) No M [facility] [employer] 250 DO Work Phone: Vital Signs Date Time Vital Sign Value Performing Clinician Facility 03-07-2024 14:06-0500 Hourly Rounding [employer] [facility] 03-07-2024 14:06-0500 Promise to Return [employer] [facility] 03-07-2024 13:19-0500 Hourly Rounding [employer] 03-07-2024 13:19-0500 Promise to Return in[facility] 03-07-2024 12:28-0500 Hourly Rounding Willie Caio [facility] 03-07-2024 12:28-0500 Promise to Return Willie Caio [facility] 03-07-2024 11:45-0500 Diastolic blood pressure 63 mm[Hg] Willie Caio [facility] 03-07-2024 11:45-0500 Heart rate 86 /min Willie Caio [facility] 03-07-2024 11:45-0500 Systolic blood pressure 149 mm[Hg] Willie Caio [facility] 03-07-2024 10:13-0500 Heart rate 86 /min Willie Caio [facility] 03-07-2024 10:13-0500 SaO2% (BldA) [Mass fraction] 96 % Willie Kearney [facility] 03-07-2024 10:12-0500 Diastolic blood pressure 63 mm[Hg] Willie Kearney [facility] 03-07-2024 10:12-0500 Mean blood pressure 92 mm[Hg] Willie Kearney [facility] 03-07-2024 10:12-0500 Systolic blood pressure 149 mm[Hg] Willie K[facility]ney [facility] 03-07-2024 10:12-0500 Body temperature 98.06 [degF] Willie Kearney [facility] 03-07-2024 07:22-0500 Heart rate 87 /min Willie Kearney [facility] 03-07-2024 07:22-0500 SaO2% (BldA) [Mass fraction] 97 % Willie Kearney [facility] 03-07-2024 07:21-0500 Diastolic blood pressure 67 mm[Hg] Willie Kearney [facility] 03-07-2024 07:21-0500 Mean blood pressure 102 mm[Hg] Willie Kearney [facility] 03-07-2024 07:21-0500 Systolic blood pressure 173 mm[Hg] Willie Fatimaer [facility] 03-07-2024 07:19-0500 Body temperature 98.24 [degF] Willie Kearney [facility] 03-07-2024 04:00-0500 Blood Pressure Location Willie Kearney [facility] 03-07-2024 04:00-0500 Body temperature 98.78 [degF] Willie Kearney [facility] 03-07-2024 04:00-0500 Heart rate 85 /min Willie Kearney [facility] 03-07-2024 04:00-0500 Mean blood pressure 105 mm[Hg] Willie Kearney [facility] 03-07-2024 04:00-0500 Respiratory rate 18 /min Willie Kearney [facility] 03-07-2024 01:00-0500 Heart rate 70 /min Willie Kearney [facility] 03-07-2024 01:00-0500 Mean blood pressure 99 mm[Hg] Willie Kearney [facility] 03-07-2024 01:00-0500 Respiratory rate 18 /min Willie Kearney [facility] 03-07-2024 00:00-0500 Body temperature 98.6 [degF] Willie Kearney [facility] 03-06-2024 21:25-0500 Blood Pressure Location Willie Kearney [facility] 03-06-2024 21:25-0500 Body temperature 98.24 [degF] Willie Kearney [facility] 03-06-2024 20:38-0500 Mean blood pressure 111 mm[Hg] Willie Kearney [facility] 03-06-2024 20:38-0500 Body temperature 98.24 [degF] Willie Fatimaer [facility] 01-18-2024 12:19-0400 Diastolic blood pressure 100 mm[Hg] Michael Ramos DO Work Phone: [facility] 01-18-2024 12:19-0400 Systolic blood pressure 170 mm[Hg] Michael Ramos DO Work Phone: [facility] 01-18-2024 11:040 Body height 162.6 cm Michael Ramos DO Work Phone: [facility] 01-18-2024 11:040 Body mass index (BMI) [Ratio] 23 kg/m2 Michael Ramos DO Work Phone: [facility] 01-18-2024 11:040 Body weight 60.78 kg Michael Ramos DO Work Phone: [facility] 01-18-2024 11:040 Heart rate 60 /min Michael Ramos DO Work Phone: [facility] 12-22-2023 13:040 Body height 162.56 cm [facility] 12-22-2023 13:26-0400 Body mass index (BMI) [Ratio] 23.6 kg/m2 [facility] 12-22-2023 13:26-0400 Body temperature 96.8 [degF] [facility] 12-22-2023 13:26-0400 Body weight 62.25 kg [facility] 12-22-2023 13:26-0400 Diastolic blood pressure 74 mm[Hg] [facility] 12-22-2023 13:26-0400 Heart rate 68 /min [facility] 12-22-2023 13:26-0400 Respiratory rate 16 /min [facility] 12-22-2023 13:26-0400 SaO2% (BldA) [Mass fraction] 98 % [facility] 12-22-2023 13:26-0400 Systolic blood pressure 131 mm[Hg] [facility] 12-17-2023 11:13040 Body height 162.56 cm [facility] 12-17-2023 11:13-0400 Body mass index (BMI) [Ratio] 22.6 kg/m2 [facility] 12-17-2023 11:13-0400 Body weight 59.87 kg [facility] 12-17-2023 11:13-0400 Diastolic blood pressure 68 mm[Hg] [facility] 12-17-2023 11:13-0400 Heart rate 63 /min [facility] 12-17-2023 11:13-0400 Systolic blood pressure 162 mm[Hg] [facility] 08-05-2023 10:46-0400 Body height 162.56 cm [facility] 08-05-2023 10:46-0400 Body mass index (BMI) [Ratio] 23.3 kg/m2 [facility] 08-05-2023 10:46-0400 Body temperature 96.1 [degF] [facility] 08-05-2023 10:46-0400 Body weight 61.8 kg [facility] 08-05-2023 10:46-0400 Diastolic blood pressure 80 mm[Hg] [facility] 08-05-2023 10:46-0400 Heart rate 68 /min [facility] 08-05-2023 10:46-0400 Respiratory rate 16 /min [facility] 08-05-2023 10:46-0400 SaO2% (BldA) [Mass fraction] 98 % [facility] 08-05-2023 10:46-0400 Systolic blood pressure 132 mm[Hg] [facility] 05-18-2023 11:27-0500 Body height 162.6 cm Michael Ramos DO Work Phone: [facility] 05-18-2023 11:27-0500 Body mass index (BMI) [Ratio] 22.49 kg/m2 Michael Ramos DO Work Phone: [facility] 05-18-2023 11:270500 Body weight 59.42 kg Michael Ramos DO Work Phone: [facility] 05-18-2023 11:27-0500 Diastolic blood pressure 80 mm[Hg] Michael Ramos DO Work Phone: [facility] 05-18-2023 11:27-0500 Heart rate 64 /min Michael Richard DO Work Phone: [facility] 05-18-2023 11:27-0500 Systolic blood pressure 140 mm[Hg] Michael Ramos DO Work Phone: [facility] 03-10-2023 10:36-0500 Body height 162.6 cm Adrien Avalos [employer] LOADING MACHINE OPERATOR-RETURNS PROCESSOR Work Phone: [facility] 03-10-2023 10:36-0500 Body mass index (BMI) [Ratio] 22.31 kg/m2 Adrien Avalos [employer] LOADING MACHINE OPERATOR-RETURNS PROCESSOR Work Phone: [facility] 03-10-2023 10:36-0500 Body weight 58.97 kg Adrien Avalos [employer] LOADING MACHINE OPERATOR-RETURNS PROCESSOR Work Phone: [facility] 03-10-2023 10:36-0500 Diastolic blood pressure 66 mm[Hg] Adrien Avalos [employer] LOADING MACHINE OPERATOR-RETURNS PROCESSOR Work Phone: [facility] 03-10-2023 10:36-0500 Heart rate 64 /min Adrien Avalos [employer] LOADING MACHINE OPERATOR-RETURNS PROCESSOR Work Phone: [facility] 03-10-2023 10:36-0500 Systolic blood pressure 140 mm[Hg] Adrien Avalos [employer] SHE[employer] LOADING MACHINE OPERATOR-RETURNS PROCESSOR Work Phone: [facility] 02-02-2023 11:00-0500 Body height 162.56 cm Antonino Gustafson Other [employer] Other 02-02-2023 11:00-0500 Body mass index (BMI) [Ratio] 22.14 kg/m2 Antonino Gustafson Other [employer] Other 02-02-2023 11:00-0500 Body weight 58.51 kg Antonino Gustafson Other [employer] Other 02-02-2023 11:00-0500 Diastolic blood pressure 63 mm[Hg] Antonino Gustafson Other [employer] Other 02-02-2023 11:00-0500 Systolic blood pressure 127 mm[Hg] Antonino Gustafson Other [facility] [employer] Other 01-29-2023 14:05-0400 Body temperature 97.2 [degF] MD Antonino Gustafson Work Phone: [facility] 01-29-2023 14:05-0400 Diastolic blood pressure 71 mm[Hg] MD Antonino Gustafson Work Phone: [facility] 01-29-2023 14:05-0400 Heart rate 75 /min MD Antonino Gustafson Work Phone: [facility] 01-29-2023 14:05-0400 Respiratory rate 16 /min MD Antonino Gustafson Work Phone: [facility] 01-29-2023 14:05-0400 SaO2% (BldA) [Mass fraction] 95 % MD Antonino Gustafson Work Phone: [facility] 01-29-2023 14:05-0400 Systolic blood pressure 156 mm[Hg] MD Antonino Gustafson Work Phone: [facility] 01-29-2023 05:56-0400 Body weight 57.1 kg MD Antonino Gustafson Work Phone: [facility] 01-28-2023 16:00-0400 Body height 162.56 cm MD Antonino Gustafson Work Phone: [facility] 01-27-2023 10:54-0400 Body temperature 97.8 [degF] MD Antonino Gustafson Work Phone: [facility] 01-27-2023 10:54-0400 Diastolic blood pressure 74 mm[Hg] MD Antonino Gustafson Work Phone: [facility] 01-27-2023 10:54-0400 Heart rate 64 /min MD Antonino Gustafson Work Phone: [facility] 01-27-2023 10:54-0400 Respiratory rate 20 /min MD Antonino Gustafson Work Phone: [facility] 01-27-2023 10:54-0400 SaO2% (BldA) [Mass fraction] 100 % MD Antonino Gustafson Work Phone: [facility] 01-27-2023 10:54-0400 Systolic blood pressure 181 mm[Hg] MD Antonino Gustafson Work Phone: [facility] 01-27-2023 07:53-0400 Body height 162.56 cm MD Antonino Gustafson Work Phone: [facility] 01-27-2023 07:53-0400 Body weight 58.96 kg MD Antonino Gustafson Work Phone: [facility] 01-04-2023 13:00-0400 Body height 162.56 cm Liliya Bhavna Other [employer] Other 01-04-2023 13:00-0400 Body mass index (BMI) [Ratio] 22.59 kg/m2 Liliya Bhavna Other [employer] Other 01-04-2023 13:00-0400 Body temperature 96.4 [degF] Liliya Bhavna Other [employer] Other 01-04-2023 13:00-0400 Body weight 59.69 kg Liliya Bhavna Other [employer] Other 01-04-2023 13:00-0400 Diastolic blood pressure 74 mm[Hg] Liliya Bhavna Other [employer] Other 01-04-2023 13:00-0400 Respiratory rate 18 /min Liliya Bhavna Other [employer] Other 01-04-2023 13:00-0400 SaO2% (BldA) [Mass fraction] 98 % Liliya Bhavna Other [employer] Other 01-04-2023 13:00-0400 Systolic blood pressure 153 mm[Hg] Liliya Bhavna Other [employer] Other 11-03-2022 15:30-0400 Body height 162.56 cm Antonino Gustafson Other [employer] Other 11-03-2022 15:30-0400 Body mass index (BMI) [Ratio] 22.83 kg/m2 Antonino Gustafson Other [employer] Other 11-03-2022 15:30-0400 Body weight 60.33 kg Antonino Gustafson Other [employer] Other 11-03-2022 15:30-0400 Diastolic blood pressure 55 mm[Hg] Antonino Gustafson Other [employer] Other 11-03-2022 15:30-0400 Systolic blood pressure 146 mm[Hg] Antonino Gustafson Other [employer] Other 06-11-2022 11:40-0400 Body height 162.56 cm Liliya Bhavna Other [employer] Other 06-11-2022 11:40-0400 Body mass index (BMI) [Ratio] 24.92 kg/m2 Liliya Bhavna Other [employer] Other 06-11-2022 11:40-0400 Body temperature 96.9 [degF] Liliya Bhavna Other [employer] Other 06-11-2022 11:40-0400 Body weight 65.86 kg Liliya Bhavna Other [employer] Other 06-11-2022 11:40-0400 Diastolic blood pressure 88 mm[Hg] Liliya Bhavna Other [employer] Other 06-11-2022 11:40-0400 Respiratory rate 18 /min Liliya Bhavna Other [employer] Other 06-11-2022 11:40-0400 SaO2% (BldA) [Mass fraction] 98 % Liliya Bhavna Other [employer] Other 06-11-2022 11:40-0400 Systolic blood pressure 138 mm[Hg] Liliya Bhavna Other [employer] Other 03-18-2022 11:35-0500 Diastolic blood pressure 62 mm[Hg] Antonino Gustafson [facility] Phone[facility] [employer] [facility] Work Phone: 03-18-2022 11:35-0500 Systolic blood pressure 130 mm[Hg] Antonino Gustafson Work Phone: [facility] [employer] [facility] DO Work Phone: 03-18-2022 11:23-0500 Body height 162.56 cm Antonino Gustafson Work Phone: [facility] [employer] [facility] DO Work Phone: 03-18-2022 11:23-0500 Body mass index (BMI) [Ratio] 24.2 kg/m2 Antonino Gustafson Work Phone: [facility] [employer] [facility] DO Work Phone: 03-18-2022 11:23-0500 Body surface area Derived from formula 1.69 m2 Antonino Gustafson Work Phone: [facility] DO Work Phone: 03-18-2022 11:23-0500 Body weight 63.96 kg Antonino Gustafson Work Phone: [facility] DO Work Phone: 03-18-2022 11:23-0500 Diastolic blood pressure 60 mm[Hg] Antonino Gustafson Work Phone: [facility] [facility] DO Work Phone: 03-18-2022 11:23-0500 Heart rate 60 /min Antonino Gustafson Work Phone: [facility] DO Work Phone: 03-18-2022 11:23-0500 Systolic blood pressure 142 mm[Hg] Antonino Gustafson Work Phone: [facility] DO Work Phone: 01-15-2022 11:16-0400 Diastolic blood pressure 80 mm[Hg] Antonino Gustafson Work Phone: [facility] DO Work Phone: 01-15-2022 11:16-0400 Systolic blood pressure 192 mm[Hg] Antonino Gustafson Work Phone: [facility] DO Work Phone: 01-15-2022 10:55-0400 Diastolic blood pressure 80 mm[Hg] Antonino Gustafson Work Phone: [facility] DO Work Phone: 01-15-2022 10:55-0400 Systolic blood pressure 218 mm[Hg] Antonino Gustafson Work Phone: [facility] DO Work Phone: 01-15-2022 10:48-0400 Body height 162.56 cm Antonino Gustafson Work Phone: [facility] DO Work Phone: 01-15-2022 10:48-0400 Body mass index (BMI) [Ratio] 23.34 kg/m2 Antonino Gustafson Work Phone: [facility] 250 DO Work Phone: 01-15-2022 10:48-0400 Body surface area Derived from formula 1.66 m2 Antonino Gustafson Work Phone: [facility] DO Work Phone: 01-15-2022 10:48-0400 Body weight 61.69 kg Antonino Gustafson Work Phone: [facility] DO Work Phone: 01-15-2022 10:48-0400 Diastolic blood pressure 74 mm[Hg] Antonino Gustafson Work Phone: [facility] DO Work Phone: 01-15-2022 10:48-0400 Heart rate 60 /min Antonino Gustafson Work Phone: [facility] DO Work Phone: 01-15-2022 10:48-0400 Systolic blood pressure 220 mm[Hg] Antonino Gustafson Work Phone: [facility] DO Work Phone: 12-08-2021 11:40-0400 Body height 162.56 cm Liliya Bhavna Other [employer] Other 12-08-2021 11:40-0400 Body mass index (BMI) [Ratio] 23.34 kg/m2 Liliya Bhavna Other [employer] Other 12-08-2021 11:40-0400 Body temperature 97.2 [degF] Liliya Bhavna Other [employer] Other 12-08-2021 11:40-0400 Body weight 61.69 kg Liliya Bhavna Other [employer] Other 12-08-2021 11:40-0400 Diastolic blood pressure 72 mm[Hg] Liliya Bhavna Other [employer] Other 12-08-2021 11:40-0400 Respiratory rate 18 /min Liliya Bhavna Other [employer] Other 12-08-2021 11:40-0400 SaO2% (BldA) [Mass fraction] 99 % Liliya Bhavna Other [employer] Other 12-08-2021 11:40-0400 Systolic blood pressure 130 mm[Hg] Liliya Bhavna Other [employer] Other 10-31-2021 03:30-0400 Diastolic blood pressure 85 mm[Hg] MD Antonino Gustafson Work Phone: [facility] 10-31-2021 03:30-0400 Heart rate 55 /min MD Antonino Gustafson Work Phone: [facility] 10-31-2021 03:30-0400 Respiratory rate 18 /min MD Antonino Gustafson Work Phone: [facility] 10-31-2021 03:30-0400 SaO2% (BldA) [Mass fraction] 96 % MD Antonino Gustafson Work Phone: [facility] 10-31-2021 03:30-0400 Systolic blood pressure 193 mm[Hg] MD Antonino Gustafson Work Phone: [facility] 10-31-2021 00:19-0400 Body height 162.56 cm MD Antonino Gustafson Work Phone: [facility] 10-31-2021 00:19-0400 Body temperature 98 [degF] MD Antonino Gustafson Work Phone: [facility] 10-31-2021 00:19-0400 Body weight 58.96 kg MD Antonino Gustafson Work Phone: [facility] 05-29-2021 11:00-0500 Body height Liliya Bhavna Other [employer] Other 05-29-2021 11:00-0500 Body mass index (BMI) [Ratio] 24.03 kg/m2 Liliya Bhavna Other [employer] Other 05-29-2021 11:00-0500 Body weight 63.5 kg Liliya Bhavna Other [employer] Other 05-29-2021 11:00-0500 Diastolic blood pressure 76 mm[Hg] Liliya Bhavna Other [employer] Other 05-29-2021 11:00-0500 Respiratory rate 18 /min Liliya Bhavna Other [employer] Other 05-29-2021 11:00-0500 SaO2% (BldA) [Mass fraction] 99 % Liliya Bhavna Other [employer] Other 05-29-2021 11:00-0500 Systolic blood pressure 134 mm[Hg] Liliya Bhavna Other [employer] Other 01-09-2021 11:30-0400 Diastolic blood pressure 70 mm[Hg] Antonino Gustafson Work Phone: [facility] DO Work Phone: 01-09-2021 11:30-0400 Systolic blood pressure 144 mm[Hg] Antonino Gustafson Work Phone: [facility] DO Work Phone: 01-09-2021 10:54-0400 Body height 162.56 cm Antonino Gustafson Work Phone: [facility] DO Work Phone: 01-09-2021 10:54-0400 Body mass index (BMI) [Ratio] 24.2 kg/m2 Antonino Gustafson Work Phone: [facility] DO Work Phone: 01-09-2021 10:54-0400 Body surface area Derived from formula 1.69 m2 Antonino Gustafson Work Phone: [facility] 250 DO Work Phone: 01-09-2021 10:54-0400 Body weight 63.96 kg Antonino Gustafson Work Phone: [facility] DO Work Phone: 01-09-2021 10:54-0400 Diastolic blood pressure 74 mm[Hg] Antonino Gustafson Work Phone: [facility] 250 DO Work Phone: 01-09-2021 10:54-0400 Heart rate 60 /min Antonino Gustafson Work Phone: [facility] DO Work Phone: 01-09-2021 10:54-0400 Systolic blood pressure 156 mm[Hg] Antonino Gustafson Work Phone: [facility] DO Work Phone: Encounters Encounter Date Encounter Type Care Provider Facility Start: 03-06-2024 End: 03-07-2024 ambulatory Willie HornMalick Caio Facility:[facility] Start: 03-06-2024 Emergency department patient visit Rolando Zarco Facility:[facility] Start: 03-06-2024 End: 03-07-2024 Observation Willie HornMalick Caio [facility] Start: 03-06-2024 End: 03-06-2024 Bamboo flowsheet Palma Rodriguez DO Work Phone: [facility] Start: 03-06-2024 End: 03-06-2024 Bamboo flowsheet Palma Rodriguez DO Work Phone: [facility] Start: 03-06-2024 End: 03-06-2024 ambulatory PALMA RODRIGUEZ Not Available Start: 02-17-2024 End: 02-17-2024 Patient encounter procedure [facility] Phys[facility] Work Phone: Start: 02-17-2024 End: 02-17-2024 ambulatory Antonino Gustafson [facility] Work Phone: Start: 02-07-2024 Non-patient / Non-visit [facility] Physician [facility] Work Phone: Start: 02-05-2024 Non-patient / Non-visit [facility] Physician [facility] Work Phone: Start: 01-25-2024 End: 01-25-2024 ambulatory [facility] Amb[facility] Start: 01-18-2024 End: 01-18-2024 Office outpatient visit 25 minutes Michael Ramos DO Work Phone: [facility] Comment on above: Accelerated hyperten alvaro; ASHD (arteriosclerotic heart disease); Paroxysmal atrial fibrillation (Multi); Former smoker; Body mass index (BMI) 23.0-23.9, adult Start: 01-18-2024 End: 01-18-2024 ambulatory [facility] Start: 12-22-2023 End: 12-22-2023 ambulatory [facility] Work Phone: Start: 12-22-2023 End: 12-22-2023 Patient encounter procedure [facility] Urgent Care José Antonio Work Phone: Start: 12-17-2023 End: 12-17-2023 ambulatory [facility] Work Phone: Start: 12-17-2023 End: 12-17-2023 Patient encounter procedure [facility] Work Phone: Start: 08-05-2023 End: 08-05-2023 ambulatory [facility] Work Phone: Start: 08-05-2023 End: 08-05-2023 Patient encounter procedure [facility] Physician [facility] Nephrology José Antonio Work Phone: Start: 07-27-2023 Non-patient / Non-visit [facility] Work Phone: Start: 05-18-2023 End: 05-18-2023 ambulatory [facility] Start: 05-18-2023 End: 05-18-2023 Office outpatient visit 25 minutes [facility] Work Phone: [facility] Comment on above: Paroxysmal atrial fi brillation (CMS/HCC); Accelerated hypertension; Mixed hyperlipidemia; Stage 3b chronic kidney disease (CMS/HCC) Start: 03-10-2023 End: 03-10-2023 Office outpatient visit 15 minutes Adrien Avalos [employer]OTG[employer] SHELL LOADING MACHINE OPERATOR-RETURNS PROCESSOR Work Phone: [facility] Comment on above: Paroxysmal atrial fi brillation (CMS/HCC) (Primary Dx); Chest pain, unspecified type; Accelerated hypertension; Stage 3a chronic kidney disease (CMS/HCC); BMI 22.0-22.9, adult Start: 03-10-2023 End: 03-10-2023 ambulatory ADRIEN [facility] Ambulatory Start: 02-24-2023 End: 02-24-2023 ambulatory Atnonino Gustafson Other [employer] Other Start: 02-24-2023 Telephone encounter Antonino Gustafson [facility] Start: 02-02-2023 End: 02-02-2023 ambulatory Antonino Gustafson Other [employer] Other Start: 02-02-2023 Transitional care michaela parkinsongiorgi srvc 14 day discharge Antonino Gustafson [facility] Start: 01-28-2023 End: 01-28-2023 ambulatory Antonino Gustafson Other [employer] Other Start: 01-28-2023 Telephone encounter Antonino Gustafson [facility] Start: 01-28-2023 End: 01-29-2023 Evaluation and management of inpatient MD Antonino Gustafson Work Phone: [facility] Work Phone: Start: 01-27-2023 Evaluation and management of inpatient MD Antonino Gustafson Work Phone: [facility] [facility] Work Phone: Start: 01-27-2023 observation encounter MD Preethi Gustafson Work Phone: [facility] Work Phone: Start: 01-04-2023 End: 01-04-2023 ambulatory Liliya Bhavna Other [employer] Other Start: 01-04-2023 Office outpatient vi sit 25 minutes Liliya Bhavna [facility] Nephrology Start: 11-03-2022 End: 11-03-2022 ambulatory Antonino Gustafson Other [employer] Other Start: 11-03-2022 Office outpatient vi sit 15 minutes Antonino Gustafson [facility] Start: 10-09-2022 Rx Renewal Antonino Gustafson Work Phone: [facility] DO Work Phone: Start: 06-11-2022 End: 06-11-2022 ambulatory Liliya Bhavna Other [employer] Other Start: 06-11-2022 Office outpatient vi sit 15 minutes Liliya Bhavna [facility] José Antonio Start: 06-03-2022 End: 06-04-[address] ANTONINO GUSTAFSON Facility:[facility] Start: 03-18-2022 Office outpatient vi sit 10 minutes Antonino Gustafson Work Phone: [facility] 250 DO Work Phone: Start: 03-18-[address] Antonino Gustafson Facility: Start: 02-09-2022 Adult health examination Preethi Gustafson Other [facility] [employer] Other Start: 02-05-2022 End: 02-06-[address] MICHAEL RAMOS Facility:[facility] Start: 01-15-[address] Michael Ramos Facility: Start: 01-15-2022 Office outpatient vi sit 25 minutes Antonino Gustafson Work Phone: [facility] 250 DO Work Phone: Start: 12-17-2021 Rx Renewal Antonino Gustafson Work Phone: [facility] 250 DO Work Phone: Start: 12-08-2021 End: 12-08-2021 ambulatory Liliya Bhavna Other [place] [employer] Other Start: 12-08-2021 Office outpatient vi sit 25 minutes Liliya Bhavna [facility] José Antonio Start: 12-04-2021 End: 12-05-2021 ambulatory LILIYA BHAVNA Facility:[facility] Start: 10-31-2021 End: 10-31-2021 Emergency department patient visit MD Antonino Gustafson Work Phone: [facility] Start: 09-16-2021 Rx Renewal Antonino E Gustafson Work Phone: [facility] 250 DO Work Phone: Start: 05-29-2021 End: 05-29-2021 ambulatory Liliya Bhavna Other [facility] [employer] Other Start: 05-29-2021 Office outpatient vi sit 15 minutes Liliya Bhavna [facility] José Antonio Start: 01-22-2021 Rx Renewal Antonino E Sj Work Phone: [facility] [place] Work Phone: Start: 01-09-2021 Office outpatient vi sit 15 minutes Antonino Gustafson Work Phone: [facility] 250 DO Work Phone: Start: 01-09-2021 Patient encounter procedure Antonino Gustafson Work Phone: [facility] DO Work Phone: Procedures Date Procedure Procedure Detail Performing Clinician Start: 03-06-2024 Visual field xm uni/ bi w/interp extended exam Palma Rodriguez DO Work Phone: Start: 03-06-2024 End: 03-06-2024 Ophth medical xm&eval compre new pt 1/> vst Homonymous hemianopia, left Palma Rodriguez DO Work Phone: Comment on above: Homonymous hemianopi a, left (Primary Dx); Cerebrovascular accident (CVA), unspecified mechanism (CMS/HCC) Start: 05-18-2023 FOLLOW UP IN CARDIOLOGY ADRIEN AVALOS Start: 03-10-2023 FOLLOW UP IN CARDIOLOGY ADRIEN AVALOS Start: 01-28-2023 [facility] Angio [...] - Tdap) DTaP/Tdap/Td Vaccines (2 - Tdap) [facility] Start: 09-20-2024 End: 09-20-2024 Patient encounter procedure 09/20/2024 10:20 AM EDT Office Visit [address] [place] [address] Michael Ramos, [address] [facility] [address] [place] [address] [facility] Start: 04-05-2024 End: 04-05-2024 Patient encounter procedure 04/05/2024 10:30 AM EST Office Visit [address] [place] [address] Michael Ramos, DO [address] [facility] [address] [place] [address] [facility] Start: 03-06-2024 End: 03-06-2024 Patient encounter procedure 03/06/2024 1:00 PM EST Office Visit [facility] [address] [place] [address] Palma Rodriguez, DO [address] [place] [address] Arrived [facility] Comment on above: Arrived Start: 01-24-2024 End: 01-24-2024 Professional / ancillary services management 01/24/2024 10:00 AM EDT Ancillary Procedure [facility] [address] [facility] [address] [place] [address] [facility] Start: 01-18-2024 End: 01-17-2025 Holter monitor study Holter Or Event Broaching Machine Repairer Cardiac Services Routine Paroxysmal atrial fibrillation (Multi) Expected: 01/18/2024 (Approximate), Expires: 01/17/2025 [facility] Service Area Work Phone: Comment on above: Expected: 01/18/2024 (Approximate), Expires: 01/17/2025 Start: 01-18-2024 End: 01-18-2024 Patient encounter procedure 01/18/2024 10:40 AM EDT Office Visit [address] [place] [address] Michael Ramos DO [address] [facility] [address] [place] [address] [facility] Start: 11-28-2023 COVID-19 Vaccine ( season) COVID-19 Vaccine ( season) [facility] Start: 11-28-2023 Influenza vaccination Influenza Vacc ine (#1) [facility] Start: 11-17-2023 End: 11-17-2023 Patient encounter procedure 11/17/2023 10:00 AM EDT Office Visit [facility] [address] [facility] [address] [place] [address] Adrien Avalos, [employer]OTG[employer] SHELL LOADING MACHINE OPERATOR-RETURNS PROCESSOR [address] [place] [address] [facility] Start: 05-18-2023 End: 05-18-2023 Patient encounter procedure 05/18/2023 11:00 AM EST Office Visit [facility] [address] [place] [id number] Michael Ramos DO [address] [place] [address] [facility] Start: 04-06-2023 End: 04-06-2023 Patient encounter procedure 04/06/2023 10:00 AM EST Procedure Visit [facility] [address] [place] [id number] [facility] Start: 03-10-2023 End: 03-10-2024 Holter monitor study Holter Or Event Broaching Machine Repairer Cardiac Services Routine Paroxysmal atrial fibrillation (CMS/HCC) Expected: 03/10/2023 (Approximate), Expires: 03/10/2024 [facility] Service Area Work Phone: Comment on above: Expected: 03/10/2023 (Approximate), Expires: 03/10/2024 Start: 01-29-2023 [facility] Start: 01-27-2023 Hospital admission [facility] Start: 01-27-2023 Referral to instructional writer [facility] Start: 01-14-2023 FUV, Provider: Michael Ramos, Status: Pen, Time: 10:00 AM FUV, Provider: Michael Ramos, Status: Pen, Time: 10:00 AM [facility] 250 DO Work Phone: Start: 11-27-2022 COVID-19 Vaccine ( season) COVID-19 Vaccine ( season) [facility] Start: 11-27-2022 Influenza vaccination Influenza Vacc ine (#1) [facility] Start: 03-18-2022 FUV, Provider: Adrien Cha, Status: Pen, Time: 11:30 AM FUV, Provider: Adrien Cha, Status: Pen, Time: 11:30 AM [facility] 250 DO Work Phone: Start: 01-15-2022 FUV, Provider: Michael Ramos, Status: Pen, Time: 10:00 AM FUV, Provider: Michael Ramos, Status: Hao, Time: 10:00 AM [facility] 250 DO Work Phone: Start: 05-08-2021 COVID-19 Vaccine (4 - Moderna series) COVID-19 Vaccine (4 - Moderna series) [facility] Start: 11-18-2014 RSV High Risk: (Elde rly (60+) or Population) (1 - 1-dose 75+ series) RSV High Risk: (Elderly (60+) or Population) (1 - 1-dose 75+ series) [facility] Start: 11-18-1989 Zoster Vaccines (1 o f 2) Zoster Vaccines (1 of 2) [facility] Start: 11-18-1958 Urine screening for protein CKD: Urine Protein Screening [facility] Start: 11-18-1957 Diabetes mellitus screening Diabetes Screening [facility] Start: 11-18-1945 Pneumococcal Vaccine : 65+ Years (1 - PCV) Pneumococcal Vaccine: 65+ Years (1 - PCV) [facility] Start: 11-18-1945 Pneumococcal Vaccine : 65+ Years (1 of 2 - PCV) Pneumococcal Vaccine: 65+ Years (1 of 2 - PCV) [facility] Start: 1939 Annual wellness visit Medicare Initial Physical (IPPE) [facility] Start: 1939 Lipid panel Lipid Panel [facility] Start: 1939 Medicare Annual Wellness Visit Medicare Annual Wellness Visit (AWV) [facility] Start: 1939 Screening for osteoporosis Bone Density Scan [facility] Start: 1939 Thyroid stimulating hormone measurement TSH Level [facility] Patient Education [facility] Work Phone: Patient referral [facility] Work Phone: Renal function 2000 panel - Serum or Plasma [facility] Immunizations Immunization Date Immunization Notes Care Provider Fa cility 03-13-2021 Moderna COVID-19 Vac cine 100 MCG/0.5ML Intramuscular Suspension Antonino E Gustafson Work Phone: [facility] 250 DO Work Phone: 06-19-2020 Moderna COVID-19 Vac cine 100 MCG/0.5ML Intramuscular Suspension Antonino E Gustafson Work Phone: [facility] 250 DO Work Phone: 05-23-2020 Moderna COVID-19 Vac cine 100 MCG/0.5ML Intramuscular Suspension Antonino E Gustafson Work Phone: [facility] 250 DO Work Phone: 11-02-2014 diphtheria, tetanus toxoids and acellular pertussis vaccine, 5 pertussis antigens Antonino Giorgi Gustafson Work Phone: [place] [address] DO Work Phone: Payers Date Payer Category Payer Self-pay [id number] 2015 Medicare supplementa l policy (as second payer) [facility] SU[facility]LE[facility] [id number] 2015 Private Health Insurance [id number] .[id number] 2004 Medicare [id number] 1959 Medicare [id number] 1959 Private Health Insurance [id number] 2.16.840.1.631955.19 1939 Unknown [id number] 2.16.840.1.048753.3.579 .2.356 1939 Unknown [id number] 2.16.840.1.649202.3.579 .2.356 1939 Unknown [id number] 2.16840.1.970147.3.579 .2.593 1939 Unknown [id number] 2.16.840.1.353257.3.579 .2.593 1939 Unknown [id number] 2.840.1.285212.3.579 .2.593 1939 Unknown [id number] 2.840.1.171897.3.579 .2.593 1939 Unknown [id number] 2.840.1.340946.3.579 .2.1244 1939 Unknown [id number] 2.840.1.301251.3.579 .2.1244 1939 Unknown [id number] 2.840.1.620011.3.579 .2.1244 1939 Unknown [id number] 2.840.1.143625.3.579 .2.1244 1939 Unknown [id number] 2.840.1.337028.3.579 .2.1259 1939 Unknown [id number] 2.16840.1.515624.3.579 .2.727 1939 Unknown [id number] 2.16840.1.546876.3.579 .2.727 1939 Unknown [id number] 2.16840.1.051082.3.579 .2.727 1939 Unknown [id number] 2.16.840.1.320466.3.579 .2.727 1939 Unknown [id number] 2.16.840.1.683714.3.579 .2.727 1939 Unknown [id number] 2.16.840.1.760705.3.579 .2.727 1939 Unknown [id number] 2.16.840.1.219307.3.579 .2.727 1939 Unknown [id number] 2.16.840.1.457930.3.579 .2.727 Unknown Unknown [id number] 2.16.840.1.816519.3.579 .2.531 Social History Date Type Detail Facility Start: 03-10-2023 End: 01-18-2024 No alcohol use No alcohol use [facility] 250 DO Work Phone: Comment on above: Coffee 2 cups daily; quit 1965; Start: 03-10-2023 End: 01-18-2024 Sex Assigned At [facility] Start: 10-31-2021 Tobacco smoking status [facility] Never smoked tobacco (finding) [facility] Start: 1940 Sex Assigned At Female F [facility] Start: 01-27-2023 End: 03-06-2024 Tobacco smoking status [facility] Ex-smoker (finding) [facility] End: 03-29-1969 History of tobacco use Current smoker [facility] Work Phone: End: 03-29-1969 History of tobacco use Cigarette Smoker [facility] Work Phone: Start: 03-10-2023 End: 01-18-2024 Tobacco use and exposure Smokeless tobacco non-user [facility] Work Phone: Start: 03-10-2023 End: 01-18-2024 Alcohol intake Lifetime non-drinker (finding) [facility] Work Phone: Start: 1940 Sex Assigned At Not on file [facility] Work Phone: Start: 02-28-2023 End: 01-18-2024 Exposure to SARS-CoV-2 (event) Not sure [facility] Start: 02-17-2024 Sex Female (finding) [facility] Tobacco smoking status NHIS Tobacco smoking consumption unknown [facility] Tobacco smoking status No Smoking Status Entered [facility] Goals Date Patient Goal Desired Activity /State Functional Status Date Assessment Result Facility 03-06-2024 Functional Status N/A [facility] 03-06-2024 Functional Status [facility] 01-29-2023 Functional status Patient at Baseline [facility] Work Phone: 01-27-2023 Functional status Patient at Baseline [facility] Work Phone: Mental Status Date Assessment Result Facility 01-29-2023 Cognitive function Cognitive Sta s Patient at Baseline [facility] Work Phone: 01-27-2023 Cognitive function Cognitive Sta [facility] Patient at Baseline [facility] Work Phone: Clinical Notes 05-29-2021 to 03-07-2024 Note Date & Type Note Facility 03-07-2024 Hospital Discharg e instructions Patient Education 03/07/2024 14:42:18 Atrial Fibrillation, Ewod-uc-Fmbs Atrial Fibrillation Atrial fibrillation (AFib) is a type of heartbeat that is irregular or fast. If you have AFib, your heart beats without any order. This makes it hard for your heart to pump blood in a normal way. AFib may come and go, or it may become a long-lasting problem. If AFib is not treated, it can put you at higher risk for stroke, heart failure, and other heart problems. What are the causes? AFib may be caused by diseases that damage the heart's electrical system. They include: High blood pressure. Heart failure. Heart valve diseases. Heart surgery. Diabetes. Thyroid disease. Kidney disease. Lung diseases, such as pneumonia or COPD. Sleep apnea. Sometimes the cause is not known. What increases the risk? You are more likely to develop AFib if: You are older. You exercise often and very hard. You have a family history of AFib. You are male. You are . You are overweight. You smoke. You drink a lot of alcohol. What are the signs or symptoms? Common symptoms of this condition include: A feeling that your heart is beating very fast. Chest pain or discomfort. Feeling short of breath. Suddenly feeling light-headed or weak. Getting tired easily during activity. Fainting. Sweating. In some cases, there are no symptoms. How is this treated? Medicines to: ?Prevent blood clots. ?Treat heart rate or heart rhythm problems. Using devices, such as a pacemaker, to correct heart rhythm problems. Doing surgery to remove the part of the heart that sends bad signals. Closing an area where clots can form in the heart (left atrial appendage). In some cases, your doctor will treat other underlying conditions. Follow these instructions at home: Medicines Take utij-vjo-fkfxfzw and prescription medicines only as told by your doctor. Do not take any new medicines without first talking to your doctor. If you are taking blood thinners: ?Talk with your doctor before taking aspirin or NSAIDs, such as ibuprofen. ?Take your medicines as told. Take them at the same time each day. ?Do not do things that could hurt or bruise you. Be careful to avoid falls. ?Wear an alert bracelet or carry a card that says you take blood thinners. Lifestyle Do not smoke or use any products that contain nicotine or tobacco. If you need help quitting, ask your doctor. Eat heart-healthy foods. Talk with your doctor about the right eating plan for you. Exercise regularly as told by your doctor. Do not drink alcohol. Lose weight if you are overweight. General instructions If you have sleep apnea, treat it as told by your doctor. Do not use diet pills unless your doctor says they are safe for you. Diet pills may make heart problems worse. Keep all follow-up visits. Your doctor will check your heart rate and rhythm regularly. Contact a doctor if: You notice a change in the speed, rhythm, or strength of your heartbeat. You are taking a blood-thinning medicine and you get more bruising. You get tired more easily when you move or exercise. You have a sudden change in weight. Get help right away if: You have pain in your chest. You have trouble breathing. You have side effects of blood thinners, such as blood in your vomit, poop (stool), or pee (urine), or bleeding that cannot stop. You have any signs of a stroke. BE FAST is an easy way to remember the main warning signs: ?B - Balance. Dizziness, sudden trouble walking, or loss of balance. ?E - Eyes. Trouble seeing or a change in how you see. ?F - Face. Sudden weakness or loss of feeling in the face. The face or eyelid may droop on one side. ?A - Arms.Weakness or loss of feeling in an arm. This happens suddenly and usually on one side of the body. ?S - Speech. Sudden trouble speaking, slurred speech, or trouble understanding what people say. ?T - Time.Time to call emergency services. Write down what time symptoms started. You have other signs of a stroke, such as: ?A sudden, very bad headache with no known cause. ?Feeling like you may vomit (nausea). ?Vomiting. ?A seizure. These symptoms may be an emergency. Get help right away. Call 911. Do not wait to see if the symptoms will go away. Do not drive yourself to the hospital. This information is not intended to replace advice given to you by your health care provider. Make sure you discuss any questions you have with your health care provider. Document Revised: 12/02/2022 Document Reviewed: 12/02/2022 [employer] Patient Education 2023 [employer]. 03/07/2024 14:42:15 Core Measures: Stroke (Cerebrovascular Accident) [facility], (CUSTOM) Stroke (Cerebrovascular Accident) A stroke is acute of brain tissue, and it is a neurologic emergency. A stroke can cause permanent loss of function of the central nervous system (brain). If the symptoms of a stroke end without complications in 24 hours, it is diagnosed as a transient ischemic attack (TIA). If the symptoms are not resolved within 24 hours, it is defined as a stroke. CAUSES A stroke is caused by a decrease of oxygen supply to an area of your brain. It is usually the result of a small blood clot or hardening of the arteries. Blockages in, or damage to, the carotid arteries leading to the brain can also cause a stroke. Bleeding in the brain can cause, or accompany, a stroke. SYMPTOMS These symptoms usually develop suddenly (or may be newly present upon awakening from sleep): Loss of vision. Double vision. Confusion. Numbness or weakness on one side of the face or body. Inability to speak (aphasia). DIAGNOSIS Your caregiver can often determine the presence or absence of a stroke based on your symptoms, history, and examination. A CT scan of the brain is usually performed to confirm the stroke, look for causes, and determine the severity. Other tests may be done to find the cause of the stroke, including: An EKG and heart monitoring. An echocardiogram (ultrasound evaluation of the heart). An ultrasound evaluation of your carotid arteries. Determination of blood oxygen level and blood tests. PREVENTION The likelihood of a stroke can be decreased by appropriate treatment of high blood pressure, high cholesterol, diabetes, and by stopping smoking. RISK FACTORS: If you have been told by your doctor or nurse practitioner that you have any of the following risk factors for stroke, work with your health reproductive healthcare assistant to control them. High Blood Pressure: High blood pressure is one of the main causes of stroke. It is the most important risk factor to control. Take your blood pressure medication, lose weight, increase your activity, and limit your salt intake to help control your blood pressure.Take your your blood pressure and write it down and then take them to your next doctor's appointment. Smoking: If you smoke: QUIT! We can help. Please call [facility] at [phone] ([facility]), or [phone], ext. [phone] Diabetes: Work with your healthcare professional to keep your blood sugar under control. Check your blood sugar and take the results to your next doctor's visit. Take your medications as directed. Eating a healthy diet and exercising will also help keep your diabetes under control. For information on [facility] please call, . Carotid or other Artery Diseases: The carotid arteries in your neck carry blood to the brain. A stroke can be caused by a blood clot blocking an artery that has been damaged by a fatty buildup inside the artery wall. Discuss ways to manage this with your health care provider. Atrial Fibrillation (A Fib): In A fib, your heart does not have a normal beat. This may allow clots to form and puts you at a greater risk for having a stroke. Work with your health care provider to control your A fib. Your doctor may order special medication that helps prevent clots from forming. High blood cholesterol or high blood fats: High cholesterol increases your risk of stroke. Exercise regularly, but talk to your health care provider first. A diet low in fat and cholesterol can help. If you have any questions about a low fat, low cholesterol diet, you can call our [employer] senior peoplesoft developer at [phone] Ext. [phone]. The goal for total cholesterol is less than 200, and for LDL or the bad cholesterol is less than 100. Lifestyle Management: You increase your risk of stroke if you are overweight or obese, are not very active, or drink too much alcohol. Enjoy a diet rich in fruits and vegetables. Exercise regularly and drink alcohol in moderation or no more than two drinks a day for men and no more than one drink a day for non- women, or don't drink at all. This will help decrease your risk of stroke. Oral Contraceptives: Taking control pills or the pill can be a risk factor for stroke especially if you smoke. Discuss using the oral contraceptives and your risk of stroke with your health reproductive healthcare assistant. TREATMENT TIME IS OF THE ESSENCE! Medications to dissolve a blood clot can only be used within four and a half hours of the onset of symptoms. After that time, treatment of stroke depends on duration of symptoms, severity, and cause. Medications and diet measures may be used to address diabetes, high blood pressure, and other risk factors. Physical therapy, speech therapy, and occupational therapy specialists will assess you and work to improve any functions impaired by the stroke. Measures will be taken to prevent short and game agent complications, including aspiration pneumonia, blood clots in the legs, bedsores, and falls. HOME CARE INSTRUCTIONS Care at home after a stroke can be complicated. Medications Blood thinners may be used to prevent another stroke. Blood thinners need to be used exactly as instructed. Medicines may also be used to control risk factors for a stroke. Be sure you understand all your medication instructions. It is very important to not run out of your medicine. Get more while you still have a one-week supply. Do not stop taking your medicine without speaking to your healthcare professional. Take all of your medications or an updated list of your medications to all of your doctor's appointments. Physical, occupational, and speech therapy Ongoing therapy is often necessary to maximize recovery after a stroke. If you have been advised to use a walker or a cane, use it at all times. Be sure you keep your therapy appointments. Diet Certain diets may be prescribed to address high blood pressure, high cholesterol, or diabetes. Foods may need to be a special consistency (soft, pureed, small bites) to avoid food going into your lungs or choking. Home safety A safe home environment is important to reduce the risk of falls. Your caregiver may arrange for specialists to evaluate your home. Grab bars in the bedroom and bathroom are often important. Your caregiver may arrange for special equipment to be used at home, such as raised toilets and a seat for the shower. It s important to know and control your risk factors, but it is also important to recognize the signs and symptoms of stroke/TIA and know what to do: Call 911 if any of these things happen: Sudden numbness or weakness of the face, arm, or leg especially on one side of the body. Sudden confusion, trouble speaking, or understanding. Sudden trouble seeing in one or both eyes. Sudden trouble walking, dizziness, loss of balance or coordination Sudden severe headache with no known cause * It is very important for you to follow-up with your Primary Care Doctor and your Neurologist after you go home. Make sure that you keep your doctor visits. Remember: TIME LOST is BRAIN LOST Resources: for more information on strokes, log onto www.[facility].com or www.strokeassociation.org or call the [employer] at . Revised 03/2018 Follow Up Care 03/06/2024 14:50:37 With:ANTONINO GUSTAFSON MD, FAM Address: [address] [place] [address]- When:5 to 7 days Comments:Call for followup appointment to talk about switching from Eliquis to Coumadin once you are out of Eliquis With:Kamar Escobar MD, NEU Address: [address] [address]- When:2 to 4 weeks [facility] 03-07-2024 Note Discharge Summary Admission and Discharge Information Admitting Physician - Willie Kearney DO Consulting Physician - Kamar Escobar MD Admitting Diagnoses: Discharge Order Date Discharge Patient - Ordered -- 03/07/24 14:45:00 EST Discharge Diagnoses 1. CVA (cerebrovascular accident), 03/06/2024 2. HTN (hypertension), 03/06/2024 3. Hypothyroidism, 03/06/2024 4. A-fib, 03/06/2024 5. Hyperlipidemia, 03/06/2024 Vision changes, 03/06/2024 Hospital Course 83-year-old female with recent diagnosis of A-fib, hypertension, hypothyroid presented to ER on 03/06 after being seen by security checker due to visual field defects. Per patient she was diagnosed last month with A-fib and has not been taking oral Eliquis because of how expensive it is. Patient states she has had intermittent headaches and visual changes. In ED CT of head showed mild to moderate atrophy with age-indeterminate right occipital lobe infarct. Patient was admitted for further workup and treatment. Neurology was consulted and followed patient. Patient had MRI that showed small areas of recent appearing infarct superimposed on larger area of chronic infarct in the right occipital region. CTA of head and neck were negative for acute findings. 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 Neurology recommended patient continuing Eliquis as well as aspirin and to follow-up with them in clinic in 2 to 4 weeks. Echo was negative for acute findings. PT/OT worked with patient and did qualify for occupational therapy at home. I did discuss the need for patient to take her Eliquis as prescribed. Patient was worried about how expensive it was. Patient already has 3-month supply at home as she should take that and the last month possibly talk to PCP about switching over to Coumadin. Patient as well as family agree and accept plan of treatment. Patient stable at discharge. med changes make sure continue eliquis BID 5mg -may need to switch to coumadin if patient cant afford eliquis, but has 3 month supply statin 40mg daily follow up neuro 2-4 weeks pcp in 5-7 days Discharge time was 37 minutes which included extensive conversation with patient as well as family about diagnosis and treatment plan. Along with communication with consultants, nursing, case management. Services Consulted Consult to Neurology - Ordered -- 03/06/24 18:22:00 EST, Stroke, Consult and Co-manage Consult to Facilities Supervisor - Ordered -- 03/06/24 23:07:42 EST Physical Exam Vitals & Measurements T: 36.7 ???C(Axillary) TMIN: 36.7 ???C(Axillary) TMAX: 37.1 ???C(Oral) HR: 86(Apical) RR: 18 RR: 18 BP: 149/63 SpO2: 96% HT: 167.64 cm WT: 62.8 kg General: NAD Skin: Warm, dry Head: No trauma, normocephalic Neck: Trachea midline, supple, negative for JVD Eye: Conjunctive are clear, clear sclera , EOMI ENMT: oral mucosa moist, no lesions or edema nose or external ears Cardiovascular: Occasional extra beat, S1-S2 present, negative for murmurs rubs or gallops Respiratory: Lungs clear to auscultation, bilateral symmetric movement, negative for wheezes rales or rhonchi Chest wall: no deformity. Gastrointestinal: Abdomen soft, bowel sounds present, nontender to palpation Back: No tenderness Extremities: Range of motion intact, no edema Neurological: awake, alert, speech normal, cranial nerves II through XII intact, no sensory defects, alert and oriented x3 Psychiatric: cooperative, affect appropriate for age, pleasant Tests Performed CT Head or Brain w/o Contrast CTA Head CTA Neck Echo Transthoracic Complete MRI Brain w/o Contrast XR Chest Single View Discharge Plan Discharge Disposition Discharge To, Anticipated II - Home with responsible caregiver Discharge Medication List Prescriptions atorvastatin 40 mg Tab, 40 mg= 1 tab(s), Oral, Bedtime Home aspirin 81 mg Oral EC Tab, 81 mg= 1 tab(s), Oral, Daily Eliquis 5 mg oral tablet, 5 mg= 1 tab(s), Oral, BID, Not taking: patient states she cannot afford fenofibrate 54 mg oral tablet, 54 mg= 1 tab(s), Oral, Daily levothyroxine 100 mcg (0.1 mg) Tab, 100 mcg= 1 tab(s), Oral, Daily losartan 50 mg Tab, 50 mg= 1 tab(s), Oral, Daily Metoprolol tartrate 25 mg Tab, 25 mg= 1 tab(s), Oral, BID nitroglycerin 0.3 mg sublingual tablet, 0.3 mg= 1 tab(s), SubLingual, q5min, PRN Follow-up With When Contact Information ANTONINO GUSTAFSON MD, FAM Within 5 to [address] [place] [address]- Additional Instructions: Call for followup appointment to talk about switching from Eliquis to Coumadin once you are out of Eliquis Kamar Escobar MD, NEU Within 2 to [address] [address]- Additional Instructions: Patient Education Atrial Fibrillation, Nyek-qt-Uhqv Core Measures: Stroke (Cerebrovascular Accident) [facility], (CUSTOM) [facility] Comment on above: Result Comment: Elec tronically Signed By: Michael Worthington DO\.br\Date and Time Signed: 03/07/24 15:01 EST 03-07-2024 Evaluation + Plan note Extrac chacho from: Title:Discharge Note Author:Michael Worthington DO Date:03/07/24 Discharge To, Anticipated II - Home with responsible caregiver Prescriptions atorvastatin 40 mg Tab, 40 mg= 1 tab(s), Oral, Bedtime Home aspirin 81 mg Oral EC Tab, 81 mg= 1 tab(s), Oral, Daily Eliquis 5 mg oral tablet, 5 mg= 1 tab(s), Oral, BID, Not taking: patient states she cannot afford fenofibrate 54 mg oral tablet, 54 mg= 1 tab(s), Oral, Daily levothyroxine 100 mcg (0.1 mg) Tab, 100 mcg= 1 tab(s), Oral, Daily losartan 50 mg Tab, 50 mg= 1 tab(s), Oral, Daily Metoprolol tartrate 25 mg Tab, 25 mg= 1 tab(s), Oral, BID nitroglycerin 0.3 mg sublingual tablet, 0.3 mg= 1 tab(s), SubLingual, q5min, PRN With When Contact Information ANTONINO GUSTAFSON MD, FAM Within 5 to [address] [place] [address]- Additional Instructions: Call for followup appointment to talk about switching from Eliquis to Coumadin once you are out of Kamar Loepz MD, NEU Within 2 to [address] [address]- Additional Instructions: Atrial Fibrillation, Oxtv-oa-Cmqw Core Measures: Stroke (Cerebrovascular Accident) [facility], (CUSTOM) Extracted from: Title:Consult Note- Neurology Author:Nery Mace RN Date:03/07/24 ASSESSMENT: 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 There is some developing encephalomalacia that makes the stroke appear subacute to chronic, but there are still some peripheral diffusion weighted signal changes that could suggest acute on chronic ischemia. In early January she had CT images at [facility] that reportedly did not show any concerns. And she cannot quite pin down when her visual issues started. So it is hard to know how old the stroke is. Etiology either relates to arteriopathy such as RESIDENCY PROGRAM COORDINATOR occlusion on the right or her atrial fibrillation. I do not have any angiography yet. PLAN: 1. Apixaban has been started here 2. CTA of head and neck 3. Transthoracic echocardiogram pending 4. She has chronically taken aspirin 81 mg daily at home. If the CTA studies show significant atherosclerotic disease or a RESIDENCY PROGRAM COORDINATOR occlusion then I would recommend she stay on both aspirin and the anticoagulation. If the CTA studies are fairly unremarkable, then with concern for bleeding/fall, she could be maintained on just the apixaban alone. 5. She was started on atorvastatin 40 mg daily 6. She does not drive anymore. With the hemianopia, driving restrictions were discussed anyways. 1. CVA (cerebrovascular accident) (I63.9: Cerebral infarction, unspecified) 2. HTN (hypertension) (I10: Essential (primary) hypertension) 3. Hypothyroidism (E03.9: Hypothyroidism, unspecified) 4. A-fib (I48.91: Unspecified atrial fibrillation) 5. Hyperlipidemia (E78.5: Hyperlipidemia, unspecified) Extracted from: Title:Admission H & P Author:Channing Baeza Date:03/06/24 1. CVA (cerebrovascular acci dent) (I63.9: Cerebral infarction, unspecified) - Adm observation for sub-acute CVA (Likely occurred between 01/31-02/05/24) - Likely 2/2 a-fib w/o anticoagulation - Neuro checks per protocol - c/s Neurology - Continue home daily ASA for now pending Neuro recs - Start age/weight adjusted Eliquis for further CVA prevention - Start statin - Check lipid panel, A1C in AM - 2D Echo w/ bubble study - MRI Brain - defer further imaging to the neuro service 2. HTN (hypertension) (I10: Essential (primary) hypertension) - Continue home antihypertensives once home med rec is completed. 3. Hypothyroidism (E03.9: Hypothyroidism, unspecified) - Continue home levothyroxine once home med rec is completed. 4. A-fib (I48.91: Unspecified atrial fibrillation) - New Dx per outpatient instructional writer, Dr Ramos - Mildly Bradycardic in the ED - Continue home BB once home med rec is completed. - Tele monitoring - Initiate age/weight adjusted Eliquis dosing 5. Hyperlipidemia (E78.5: Hyperlipidemia, unspecified) - Hold home fenofibrate - Initiate statin dosing Orders: acetaminophen, 650 mg = 2 tab(s), Tab, Oral, q6hr PRN Pain, Routine, Start date 03/06/24 18:25:00 EST, 03/06/24 18:25:00 EST apixaban, 2.5 mg = 1 tab(s), Tab, Oral, BID, Routine, Start date 03/06/24 21:00:00 EST aspirin, 81 mg = 1 tab(s), Tab-EC, Oral, Daily, Routine, Start date 03/07/24 9:00:00 EST, 03/06/24 18:22:00 EST atorvastatin, 40 mg = 1 tab(s), Tab, Oral, Bedtime, Routine, Start date 03/06/24 21:00:00 EST, 03/06/24 18:22:00 EST hydrALAZINE, 10 mg = 0.5 mL, Injection, IV Push, q6hr PRN Other (see comment), Routine, Start date 03/06/24 18:25:00 EST, 03/06/24 18:25:00 EST morphine, 2 mg = 1 mL, Injection, IV Push, q4hr PRN Pain for 5 day(s), Stop date 03/11/24 18:24:00 EST, Routine, Start date 03/06/24 18:25:00 EST, 03/06/24 18:25:00 EST ondansetron, 4 mg = 2 mL, Injection, IV Push, q6hr PRN Nausea, Routine, Start date 03/06/24 18:25:00 EST, 03/06/24 18:25:00 EST senna, 17.2 mg = 2 tab(s), Tab, Oral, BID PRN Other (see comment), Routine, Start date 03/06/24 18:25:00 EST Activity As Tolerated Ambulate with Assistance Basic Metabolic Panel Below the Knee Intermittent Pneumatic Compression Device Cardiac Diet CBC w/ Auto Diff Communication Order Communication Order Physician to Nursing Communication Order Physician to Nursing Consult to Neurology Dysphagia Screen Echo w/ Saline Bubbles HgbA1c Intake and Output Lipid Panel MRI Brain w/o Contrast Neurological Assessment Neurological Assessment Notify Provider Vital Signs Notify Provider Vital Signs Occupational Therapy Evaluate Patient, Develop a Plan of Care and Implement Plan Physical Therapy Evaluate Patient, Develop a Plan of Care and Implement Plan Precautions Speech Language Pathology Evaluate Patient, Develop a Plan of Care and Implement Plan Stroke Education Stroke Quality Measures Vital Signs Weight [facility] 12-10-2024 NoteEchocardiology Procedure Exam Date/Time Accession # Ordering Echo Transthoracic 03/07/2024 10:05 EST [id number] Abdulkadir Amaro DO Complete CPT code 74550 Reason for Exam (Echo Transthoracic Complete) CVA Report [facility] [address] [place] [address] Adult Echocardiogram Report Name: JANELLE BURT Study Date: 03/07/2024 09:18 AM BP: 173/67 mmHg Patient Location: [address] [place] [address] Bed(s) [facility] HR: 95 : 1940 Gender: Female Height: 65.5 in Age: 83 yrs Ethnicity: T Weight: 137 lb Reason For Study: CVA BSA: 1.7 m2 History: Hypertension, Atrial Fibrillation Ordering Physician: Abdulkadir Amaro Performed By: Ya Wyatt [facility] Interpretation Summary The left ventricle is hyperdynamic. Ejection Fraction = >70%. Grade I diastolic dysfunction, (abnormal relaxation pattern). There is mild mitral regurgitation. There is mild tricuspid regurgitation. No comparison study is available. Procedure A complete two-dimensional transthoracic echocardiogram was performed (2D, M- mode, spectral and color flow Doppler). Study quality is good. Left Ventricle The left ventricle is normal in size. There is normal left ventricular wall thickness. The left ventricle is hyperdynamic. Ejection Fraction = >70%. Grade I diastolic dysfunction, (abnormal relaxation pattern). Left Atrium Echocardiology Report The left atrial size is normal. Right Atrium Right atrial size is normal. Right Ventricle The right ventricular systolic function is normal. The right ventricle is normal size. The right ventricular wall motion is normal. Aortic Valve The trileaflet aortic valve opening is normal. No aortic regurgitation. Mitral Valve The mitral valve is normal in structure and function. There is mild mitral regurgitation. Tricuspid Valve Structurally normal tricuspid valve. There is mild tricuspid regurgitation. Pulmonic Valve The pulmonic valve is normal. Arteries The aortic root is normal in size. Venous The inferior vena cava is normal in size, and collapses normally with respiration. Effusion There is no pericardial effusion. There is no pleural effusion noted on this exam. [facility] No comparison study is available. MMode/2D Measurements & Calculations RVDd: 2.8 cm LVIDd: 4.4 cm FS: 34.5 % Ao root diam: 3.1 cm IVSd: 1.0 cm LVIDs: 2.9 cm EDV(Teich): 87.3 ml LVPWd: 1.1 cm ESV(Teich): 31.6 ml Ao root area: 7.6 cm2 EF(Teich): 63.8 % LA dimension: 3.2 cm asc Aorta Diam: 3.3 cm LVLd ap4: 6.8 cm EDV(MOD-sp2): 57.4 ml SV(MOD-sp4): 44.4 ml EDV(MOD-sp4): 69.8 ml ESV(MOD-sp2): 16.6 ml LVLs ap4: 5.8 cm EF(MOD-sp2): 71.1 % ESV(MOD-sp4): 25.4 ml EF(MOD-sp4): 63.6 % TAPSE: 1.7 cm IVC Diam: 1.3 cm RVIDd/LVIDd: 0.65 EF (MOD-bp): 67.2 % LA Vol Index: 22.6 ml/m2 Doppler Measurements & Calculations Echocardiology Report MV E max gaurav: 71.1 cm/sec MV dec time: 0.27 sec Ao V2 max: 153.0 cm/sec LV V1 max P.4 mmHg MV A max gaurav: 122.1 cm/sec Ao max P.4 mmHg LV V1 mean P.0 mmHg MV E/A: 0.58 Ao V2 mean: 107.0 cm/sec LV V1 max: 136.0 cm/sec Lat Peak E' Gaurav: 7.2 cm/sec Ao mean P.0 mmHg LV V1 mean: 93.0 cm/sec E/E' Lat: 9.9 Ao V2 VTI: 28.0 cm LV V1 VTI: 24.2 cm Med Peak E' Gaurav: 4.9 cm/sec E/E' Med: 14.5 TR max gaurav: 273.9 cm/sec RAP systole: 3.0 mmHg AV VR: 0.89 TR max P.0 mmHg RVSP(TR): 33.0 mmHg FINAL REPORT Dictated: 03/07/2024 9:18 am Chance Dennison MD Signed (Electronic Signature): 03/07/2024 12:40 pm Signed by: Chance Dennison MD Transcribed by: JOLENE Technologist: [facility]12-10-2024 Note Consultation Note Chief Complaint Headache, vision issues Reason for Consultation stroke History of Present Illness 83-year-old woman. She was seen yesterday by Dr. Rodriguez where visual field testing showed a left homonymous hemianopia and she was sent to the hospital for further evaluation. CT scan here shows a right occipital hypodensity in the MRI results are discussed below. She has noticed vague left hemifield visual deficits here lately but she cannot pin down exactly when they started. She has had a number of health issues over the past month or 2. In December she had a Holter monitor that revealed paroxysmal atrial fibrillation. She was recommended to be started on Eliquis but had not yet started this up until during this hospitalization. Back in early January she had a fall at a doctor's office and had a headache and confusion and hardly got out of bed, and then got a urinary tract infection. During that time she was seen at the emergency department in [place], I believe family was concern for stroke, and it sounds like they did a CT scan there which I guess did not show any signs of pathology. She or her family members have not noticed any focal deficits aside from the vision. She takesaspirin at home. Review of Systems GEN: No fevers or chills. CV/PULM: No chest pain. No shortness of breath. No palpitations. NEURO: No headaches. Hemianopic vision changes. No double vision. No dysphagia. No speech changes. No focal weakness. No sensory loss. Physical Exam GEN: General appearance normal. Well-kempt. No distress. No visualized deformities or trauma. CARDIO/VASC: Limbs without significant edema and appear well-perfused. PULM: Normal work of breathing. SKIN: Visualized skin is intact and without lesions aside from age-related findings. MS: Affect is normal. Patient is alert and generally oriented. Normal attention. LANG: Speech is fluent and non-dysarthric. EYES: Pupils equal/reactive/consensual. Ocular motility full. No pathologic nystagmus. Left homonymous hemianopia. CN: Facial sensation normal. Hearing acuity is poor. Face without droop and with normal motor function. MOTOR: Muscle bulk normal. Muscle tone normal. Muscle strength normal. No tremors. SENSORY: Light touch normal. Vibratory sensation intact in distal upper extremities. CEREBELLAR: No limb ataxia. Date/Time: 03/07/2024 @0908 Level of Consciousness: Alert = 0 Current month and age: Answers both correctly = 0 Open and close eyes/administrative support assoc release hand: Obeys both correctly = 0 Best gaze: Normal = 0 Visual field testing: Complete hemianopia = 2 Facial paresis: Normal symmetric movement = 0 Motor function left arm: Normal = 0 Motor function right arm: Normal = 0 Motor function left leg: Normal = 0 Motor function right leg: Normal = 0 Limb ataxia: No ataxia = 0 Sensory: Normal = 0 Best language: No aphasia = 0 Dysarthria: Normal articulation = 0 Extinction and inattention: Normal = 0 Total Score (severe deficit >22): 2 Notes: Assessment/Plan ASSESSMENT: 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 There is some developing encephalomalacia that makes the stroke appear subacute to chronic, but there are still some peripheral diffusion weighted signal changes that could suggest acute on chronic ischemia. In early January she had CT images at [facility] that reportedly did not show any concerns. And she cannot quite pin down when her visual issues started. So it is hard to know how old the stroke is. Etiology either relates to arteriopathy such as RESIDENCY PROGRAM COORDINATOR occlusion on the right or her atrial fibrillation. I do not haveany angiography yet. PLAN: 1. Apixaban has been started here 2. CTA of head and neck 3. Transthoracic echocardiogram pending 4. She has chronically taken aspirin 81 mg daily at home. If the CTA studies show significant atherosclerotic disease or a RESIDENCY PROGRAM COORDINATOR occlusion then I would recommend she stay on both aspirin and the anticoagulation. If the CTA studies are fairly unremarkable, then with concern for bleeding/fall, she could be maintained on just the apixaban alone. 5. She was started on atorvastatin 40 mg daily 6. She does not drive anymore. With the hemianopia, driving restrictions were discussed anyways. 1. CVA (cerebrovascular accident) (I63.9: Cerebral infarction, unspecified) 2. HTN (hypertension) (I10: Essential (primary) hypertension) 3. Hypothyroidism (E03.9: Hypothyroidism, unspecified) 4. A-fib (I48.91: Unspecified atrial fibrillation) 5. Hyperlipidemia (E78.5: Hyperlipidemia, unspecified) Problem List/Past Medical History Ongoing A-fib High blood pressure HTN (hypertension) Hypothyroidism Historical No qualifying data Medications Inpatient acetaminophen 325 mg Tab, 650 mg= 2 tab(s), Oral, q6hr, PRN aspirin 81 mg Oral EC Tab, 81 mg= 1 tab(s), Oral, Daily atorvastatin 40 mg Tab, 40 mg= 1 tab(s), Oral, Bedtime Eliquis 2.5 mg oral tablet, 2.5 mg= 1 tab(s), Oral, B (more content not included)...[facility] CenterComment on above:Result Comment: Electronically Signed By: Nery Mace RN\.br\Date and Time Signed: 03/07/24 07:04 EST\.br\Electronically Co-Signed By: Abdulkadir Amaro DO\.br\Date and Time Co-Signed: 03/07/24 09:43 EST\.br\Electronically Co-Signed By: Nery Mace RN [id number] NoteConsultation Note Chief Complaint Headache, vision issues Reason for Consultation stroke History of Present Illness 83-year-old woman. She was seen yesterday by Dr. Rodriguez where visual field testing showed a left homonymous hemianopia and she was sent to the hospital for further evaluation. CT scan here shows a right occipital hypodensity in the MRI results are discussed below. She has noticed vague left hemifield visual deficits here lately but she cannot pin down exactly when they started. She has had a number of health issues over the past month or 2. In December she had a Holter monitor that revealed paroxysmal atrial fibrillation. She was recommended to be started on Eliquis but had not yet started this up until during this hospitalization. Back in early January she had a fall at a doctor's office and had a headache and confusion and hardly got out of bed, and then got a urinary tract infection. During that time she was seen at the emergency department in [place], I believe family was concern for stroke, and it sounds like they did a CT scan there which I guess did not show any signs of pathology. She or her family members have not noticed any focal deficits aside from the vision. She takesaspirin at home. Review of Systems GEN: No fevers or chills. CV/PULM: No chest pain. No shortness of breath. No palpitations. NEURO: No headaches. Hemianopic vision changes. No double vision. No dysphagia. No speech changes. No focal weakness. No sensory loss. Physical Exam GEN: General appearance normal. Well-kempt. No distress. No visualized deformities or trauma. CARDIO/VASC: Limbs without significant edema and appear well-perfused. PULM: Normal work of breathing. SKIN: Visualized skin is intact and without lesions aside from age-related findings. MS: Affect is normal. Patient is alert and generally oriented. Normal attention. LANG: Speech is fluent and non-dysarthric. EYES: Pupils equal/reactive/consensual. Ocular motility full. No pathologic nystagmus. Left homonymous hemianopia. CN: Facial sensation normal. Hearing acuity is poor. Face without droop and with normal motor function. MOTOR: Muscle bulk normal. Muscle tone normal. Muscle strength normal. No tremors. SENSORY: Light touch normal. Vibratory sensation intact in distal upper extremities. CEREBELLAR: No limb ataxia. Date/Time: 03/07/2024 @0908 Level of Consciousness: Alert = 0 Current month and age: Answers both correctly = 0 Open and close eyes/administrative support assoc release hand: Obeys both correctly = 0 Best gaze: Normal = 0 Visual field testing: Complete hemianopia = 2 Facial paresis: Normal symmetric movement = 0 Motor function left arm: Normal = 0 Motor function right arm: Normal = 0 Motor function left leg: Normal = 0 Motor function right leg: Normal = 0 Limb ataxia: No ataxia = 0 Sensory: Normal = 0 Best language: No aphasia = 0 Dysarthria: Normal articulation = 0 Extinction and inattention: Normal = 0 Total Score (severe deficit >22): 2 Notes: Assessment/Plan ASSESSMENT: 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 There is some developing encephalomalacia that makes the stroke appear subacute to chronic, but there are still some peripheral diffusion weighted signal changes that could suggest acute on chronic ischemia. In early January she had CT images at [facility] that reportedly did not show any concerns. And she cannot quite pin down when her visual issues started. So it is hard to know how old the stroke is. Etiology either relates to arteriopathy such as RESIDENCY PROGRAM COORDINATOR occlusion on the right or her atrial fibrillation. I do not haveany angiography yet. PLAN: 1. Apixaban has been started here 2. CTA of head and neck 3. Transthoracic echocardiogram pending 4. She has chronically taken aspirin 81 mg daily at home. If the CTA studies show significant atherosclerotic disease or a RESIDENCY PROGRAM COORDINATOR occlusion then I would recommend she stay on both aspirin and the anticoagulation. If the CTA studies are fairly unremarkable, then with concern for bleeding/fall, she could be maintained on just the apixaban alone. 5. She was started on atorvastatin 40 mg daily 6. She does not drive anymore. With the hemianopia, driving restrictions were discussed anyways. 1. CVA (cerebrovascular accident) (I63.9: Cerebral infarction, unspecified) 2. HTN (hypertension) (I10: Essential (primary) hypertension) 3. Hypothyroidism (E03.9: Hypothyroidism, unspecified) 4. A-fib (I48.91: Unspecified atrial fibrillation) 5. Hyperlipidemia (E78.5: Hyperlipidemia, unspecified) Problem List/Past Medical History Ongoing A-fib High blood pressure HTN (hypertension) Hypothyroidism Historical No qualifying data Medications Inpatient acetaminophen 325 mg Tab, 650 mg= 2 tab(s), Oral, q6hr, PRN aspirin 81 mg Oral EC Tab, 81 mg= 1 tab(s), Oral, Daily atorvastatin 40 mg Tab, 40 mg= 1 tab(s), Oral, Bedtime Eliquis 2.5 mg oral tablet, 2.5 mg= 1 tab(s), Oral, B (more content not included)...[facility] CenterComment on above:Result Comment: Electronically Signed By: Nery Mace RN\.br\Date and Time Signed: 03/07/24 07:04 EST\.br\Electronically Co-Signed By: Abdulkadir Amaro DO\.br\Date and Time Co-Signed: 03/07/24 09:43 [id number] NoteInterdisciplinary Note - PT PT Evaluation done this date. Pt. with on AM-PAC this date. No further PT needs but may benefit from outpatient OT for vision issues.[facility]12-10-[facility] NoteHistory and Physical Chief Complaint Pt to ED for vision changes. Has had issues intermittently since january. Went to [facility] who sent over for stroke workup. both eyes affected- one was complete, other was top and bottom. denies paresthesia, WARD. glucose 89 History of Present Illness This is an 83-year-old female patient with a past medical history as outlined below including hyperlipidemia, hypertension, hypothyroidism, and recent diagnosis of A-fib; who presented to the ED on the advice of her security checker due to visual field deficits and concern for CVA. The patient has an unusual recent medical course. She had an outpatient workup per her instructional writer with a Holter monitor late in December. She reportedly fell at the doctor's office and on 02/01/2024. She was transported home from her doctor's office by her son with bruising to the entire left side of her body and swelling of the face. The patient went to bed after arriving home and does not have any memory of the next 5 days. Her family members were checking on her morning and evening and found her sleeping and thought she was just tired. On 02/05/2024 they took her to the ED in [place] due to a severe headache. Workup was apparently negative and they sent her home with medication for pain. On 02/17/2024 shewas feeling unwell and her doctor's office ordered a UA and that was apparently positive for UTI and she was placed on antibiotics for 5 days which she has completed. She was then contacted by her cardiology office which reported on the results of the Holter monitor and stated she was in A-fib and prescribed Eliquis. The patient has not started to take this medication yet. She had quite a bit of facial swelling after her initial fall on 02/01/2024 and as this began to resolve she noted that she had vision problems primarily on the left eye. She presented to her security checker today for evaluation of her vision and due to visual field deficits he sent her directly to the ED for stroke workup. Workup in the ED revealed unremarkable labs, negative troponin. A CT of the head revealed mild to moderate cerebral atrophy, chronic ischemic white matter disease, and age-indeterminate right occipital lobe infarct. She is being admitted in observation to the hospitalist service for a subacute stroke. At the time of my exam the patient was resting comfortably in the ED cart. She denies any headache or dizziness or chest pain or shortness of breath. She continues to have right inner and left outer visual field deficits on exam. No unilateral weakness was appreciated. Review of Systems All systems reviewed and are negative except as noted in the HPI. Scoring Reid Fall Risk Score: 0 (03/06/24) Physical Exam Vitals & Measurements T: 36.5 ???C(Oral) HR: 60(Peripheral) RR: 16 BP: 194/91 SpO2: 99% HT: 167.64 cm WT: 58.3 kg General: alert, no acute distress Skin: warm, dry Head: no trauma, normocephalic Neck: Trachea midline, no adenopathy, no tenderness Eye: normal conjunctiva, sclera clear ENMT: oral mucosa moist Cardiovascular: regular rhythm, normal rate, normal peripheral perfusion Respiratory: Lungs CTA, respirations non labored Chest wall: no deformity. Gastrointestinal: soft, non distended, no tenderness, no guarding. Back: No tenderness, Normal ROM, Normal alignment. Extremities: no deformity, no trauma Neurological: oriented x 4, LOC appropriate for age, CN II-XII deficit, motor strength equal & normal bilaterally, sensation equal & normal bilaterally, speech normal, R inner visual field, and L upper/outer visual field deficits Psychiatric: cooperative, affect appropriate for age, normal judgement, normal psychiatric thoughts. Lab Results WBC: 8.6 E9/L (03/06/24 15:17:00) RBC: 4.6 E12/L (03/06/24 15:17:00) HGB: 14.5 gm/dL (03/06/24 15:17:00) Hct: 40.7 % (03/06/24 15:17:00) MCV: 88.3 fL (03/06/24 15:17:00) MCH: 31.4 pg (03/06/24 15:17:00) MCHC: 35.6 gm/dL (03/06/24 15:17:00) RDW: 13.5 % (03/06/24 15:17:00) Platelet: 205 E9/L (03/06/24 15:17:00) MPV: 7.6 fL (03/06/24 15:17:00) Neutro Auto: 63 % (03/06/24 15:17:00) Lymph Auto: 25 % (03/06/24 15:17:00) Mcdonald Auto: 10.2 % (03/06/24 15:17:00) Eos Auto: 1 % (03/06/24 15:17:00) Basophil Auto: 0.8 % (03/06/24 15:17:00) Neutro Absolute: 5.4 E9/L (03/06/24 15:17:00) Lymph Absolute: 2.2 E9/L (03/06/24 15:17:00) Mcdonald Absolute: 0.9 E9/L (03/06/24 15:17:00) Eos Absolute: 0.1 E9/L (03/06/24 15:17:00) Basophil Absolute: 0.1 E9/L (03/06/24 15:17:00) PT: 11.8 second(s) (03/06/24 15:17:00) INR: 1.05 (03/06/24 15:17:00) PTT: 29.4 second(s) (03/06/24 15:17:00) Glucose Lvl: 97 mg/dL (03/06/24 15:17:00) BUN: 21 mg/dL (03/06/24 15:17:00) Creatinine: 1.1 mg/dL (03/06/24 15:17:00) eGFR: 49 mL/min/1.73 m2 Low (03/06/24 15:17:00) BUN/Creat Ratio: 19 (03/06/24 15:17:00) Sodium Lvl: 129 mmol/L Low (03/06/24 15:17:00) Potassium Lvl: 4.1 mmol/L (03/06/24 15:17:00) Chloride: 95 mmol/L Low (03/06/24 15:17:00) CO2: 29 mmol/L (more content not included)...[facility] CenterComment on above:Result Comment: Electronically Signed By: Romero TOMLINSON, Lian Duarte\.br\Date and Time Signed: 03/06/2419:19 EST\.br\Electronically Co-Signed By: Willie Kearney DO\.br\Date and Time Co-Signed: 03/07/24 06:59 EST 03-06-2024 History of Present illness Narrative* Palma Rodriguez DO - 03/06/2024 1:00 PM EST Images from the original note were not included. Assessment/Plan Diagnoses and all orders for this visit: Homonymous hemianopia, left Cerebrovascular accident (CVA), unspecified mechanism (CMS/HCC) - Condition d/w pt and daughter. She has had some medical issues dating back to early January. Shehas had minimal work up. Advised to go to [facility] ED for CVA workup documented in this encounterReynolds County General Memorial [id number] History of Present illness Narrative* Michael Ramos, - 01/18/2024 10:40 AM EDT Subjective Janelle Burt is a 83 y.o. female Chief Complaint Follow-up 83-year-old female returns for routine follow-up and is doing very well. She is overall improved from her hospitalization last year. She was hospitalized for transient atrial fibrillation, accelerated hypertension, small non-ST elevation [place]. Catheterization reviewed today, at that time revealed [...] normal. Judgment: Judgment normal. Allergies Clonidine, Methylprednisolone, Syuvxmg-abr-nvf reductase inhibitors, Tati inhibitors, Amlodipine, Hydralazine, Lisinopril, [...] Attestation By signing my name below, Abi MagallonMalick LARKIN, Scribe attest that this documentation has been prepared under the direction and in the presence of Elizabeth Ramos DO. Provider Attestation - Scribe documentation All medical record entries made by the Scribe were at my direction and personally dictated by me. Ihave reviewed the chart and agree that the record accurately reflects my personal performance of the history, physical exam, discussion and plan. [facility] Work Phone: 1(663) 226-346910-22-2024 Instructions* Patient Instructions* Leslie Spence LPN - 01/18/2024 10:40 AM [...] time of your visit. documented in [facility] Work Phone: 1(861) 580-999209-20-2024 Evaluation note* Diagnosis Onset Date Resolution Status Admit Date CKD (chronic kidney disease) stage 3, GFR 30-59 ml/min acute Septem 2023 10:51am Hypothyroid acute November 10:51am Rhinorrhea acute November 10:51am Impacted cerumen of both ears acute December 22, 2023 1:11pm [facility] Work Phone: 1(874) 421-662102-20-2024 History of Present illness Narrative* Michael Ramos, DO - 05/18/2023 11:00 AM EST Subjective Janelle Burt is a 82 y.o. female Chief Complaint Follow-up 82-year-old female returns for follow-up following hospitalization for accelerated hypertension andbrief episode of A-fib. She converted to sinus [...] low as 97 and as high as 152mmHg, averaging around 130 mmHg. She simply does [...] normal. Judgment: Judgment normal. Allergies Clonidine, Methylprednisolone, Qyerpqy-rlp-dog reductase inhibitors, Tati inhibitors, Amlodipine, Hydralazine, Lisinopril, [...] Scribe Attestation By signing my name below, IAnamaria LPN, Scribe attest that this documentation has been prepared under the direction and in the presence of Elizabeth Ramos DO. Provider Attestation - Scribe documentation All medical record entries made by the Scribe were at my direction and personally dictated by me. Ihave reviewed the chart and agree that the record accurately reflects my personal performance of the history, physical exam, discussion and plan. documented in [facility] Work Phone: 1(227) 233-412202-20-2024 Instructions* Patient Instructions* Abi Veronica LPN - 05/18/2023 11:00 AM [...] time of your visit. documented in [facility]Mer[facility] Work Phone: 1(649) 305-737812-13-2023 Evaluation + Plan note* Assessment & Plan Note - RYANNE Neumann - 03/10/2023 1:57 PM ESTAssociated Problem(s): Chronic renal disease, stage III (CMS/HCC) Recent creatinine 1.4 Follows annually with nephrology [facility] Work Phone: 1([phone]) 881-794512-13-2023 Evaluation + Plan note* Assessment & Plan Note - RYANNE Neumann - 03/10/2023 1:57 PM ESTAssociated Problem(s): Cardiac and Vasculature January 2023 hospitalization due to jaw pain and accelerated hypertension January 28, 2023 cardiac cath with insignificant coronary artery disease (No formal report, taken from discharge summary) [facility] Work Phone: 1([phone]) 138-814812-13-2023 Evaluation + Plan note* Assessment & Plan Note - RYANNE Neumann - 03/10/2023 1:57 PM ESTAssociated Problem(s): Paroxysmal atrial fibrillation (CMS/HCC) Remote history of transient event Recurrent transient atrial fibrillation during January 2023 hospitalization Reports being symptomatic and shaking inside Denies any recurrence [facility] Work Phone: [phone]) 795-110412-13-2023 Miscellaneous Notes* Assessment & Plan Note - RYANNE Neumann - 03/10/2023 1:57 PM ESTAssociated Problem(s): Chronic renal disease, stage III (CMS/HCC) Recent creatinine 1.4 Follows annually with nephrology * Assessment & Plan Note - RYANNE Neumann - 03/10/2023 1:57 PM EST Associated Problem(s): Cardiac and Vasculature January 2023 hospitalization due to jaw pain and accelerated hypertension January 28, 2023 cardiac cath with insignificant coronary artery disease (No formal report, taken from discharge summary) * Assessment & Plan Note - RYANNE Neumann - 03/10/2023 1:57 PM EST Associated Problem(s): Paroxysmal atrial fibrillation (CMS/HCC) Remote history of transient event Recurrent transient atrial fibrillation during January 2023 hospitalization Reports being symptomatic and shaking inside Denies any recurrence * Assessment & Plan Note - RYANNE Neumann - 03/10/2023 1:56 PM EST Associated Problem(s): Accelerated hypertension Optimal in office with recent changes documented [facility] Work Phone: 1([phone]) 113-447312-13-2023 Evaluation + Plan note* Assessment & Plan Note - RYANNE Neumann - 03/10/2023 1:56 PM ESTAssociated Problem(s): Accelerated hypertension Optimal in office with recent changes [facility] Work Phone: [phone]) [phone] History of Present illness Narrative* RYANNE Neumann - 03/10/2023 10:30 AM EST Chief Complaint Getting used to my blood pressure Reason for Visit Patient presents to the office today for outpatient follow-up for hospital follow-up. Last evaluated in clinic by Dr. Ramos December 2022. Patient was recently hospitalized at [facility]. The patient was seen in Cardiology consult with subsequent cardiovascular management by [facility]. Hospitalization records have been reviewed. Reason for Cardiology Consultation: Jaw pain, accelerated hypertension transient atrial fibrillation. Consulting Vault Maker: Dr. Ramos Cardiovascular testing: Cardiac catheterization Changes to cardiovascular [...] to a lower blood pressure. Home systolic continueto range 110-1 40. She denies any dizziness or lightheadedness. She denies any type of recurrent atrial fibrillation or palpitations. From an activity standpoint over the summer she was able to garden, goes up and down the stairs. Carries her 20 pound dog down to the basement. Her right radial cathsite is healed without adverse sequela. The transient nature of atrial fibrillation, decision was made not to anticoagulate. Discussed the importance of identifying atrial fibrillation so that anticoagulation can be initiated to reduce cardioembolic events. She is in agreement to proceed with 30-day Caden of [employer]305 to assess for A-fib burden. Patient reports that overall has no complaint(s) of chest pain, chest pressure/discomfort, dyspnea,irregular heart beat, palpitations, and syncope Review of [...] Reactions Clonidine Shortness of breath Methylprednisolone Anaphylaxis Pjmpmhq-Bei-Zuq Reductase Inhibitors Myalgia Tati Inhibitors Rash Amlodipine [...] making process incorporating patients unique circumstances, the followingtreatment plan will be initiated: 1. Prescription drug management of cardiovascular medication for efficacy, adherence to treatment, side effect assessment and polypharmacy. Current treatment clinically warranted and to continue without modifications. 2. Caden of Hearts 30 days (PAF burden) 3. Return for follow-up; in the interim, contact the office if new symptoms arise. Dr. Ramos 8 weeks Adrien Avalos MSN, SHOTGUN SHELL LOADING MACHINE OPERATOR-RETURNS PROCESSOR, [facility] Please excuse any errors in grammar or translation related to this dictation. Voice recognition software was utilized to prepare this document. documented in this encounterMer[facility] Work Phone: 1([phone]) 701-879112-13-2023 Instructions* Patient Instructions* RYANNE Neumann - 03/10/2023 10:30 AM EST [...] making process incorporating patients unique circumstances, the followingtreatment plan will be initiated: 1. Prescription drug management of cardiovascular medication for efficacy, adherence to treatment, side effect assessment and polypharmacy. Current treatment clinically warranted and to continue without modifications. 2. Caden of Hearts 30 days (PAF burden) 3. Return for follow-up; in the interim, contact the office if new symptoms arise. Dr. Ramos 8 weeks documented in [facility]Mer[facility] Work Phone: [phone]) [phone] Evaluation note* Encounter Date Diagnosis Assessment Notes Treatment Notes Treatment Clinical Notes Jan, Hypothyroidism, unspecified (ICD-10 - E03.9) [facility] Other 11-07-2023 Evaluation note* Encounter Date Diagnosis Assessment Notes Treatment Notes Treatment Clinical Notes Jan, Hypothyroidism, unspecified (ICD-10 - E03.9) Pt requests a med refill for chronic problem. Jan, CAD in confederated salish artery (ICD-10 - I25.10) Pt notes improvement in symptoms. Has scheduled appt with Cardiology for followup. [facility] Other 11-03-2023 Hospital Discharge instructions Additional Instructions DISCHARGE INSTRUCTIONS FOR CARDIAC SPRAYER INSECTICIDE PHONE NUMBER OF YOUR PHYSICIAN: [phone] PROCEDURE: Heart Cath The following instructions have [...] cold, numb, blue or white, call the instructional writer immediately. 4. ACTIVITY: You are advised to [...] bottle, follow the instructions on the bottle. [facility] is not responsible for incorrect prescription information provided by the patient during their visit. Do not stop your medications without consulting your health care provider. Please take the list with you to your next doctor's appointment.[facility] Work Phone: 1([phone]) 617-376411-02-2023 Progress note Author Elsa Amin [facility] January 28, 2023 3:27pm Note Date/Time January 28, 2023 3 :27pm [facility] [address] [place] [address] Hospitalist Progress Note Signed Patient: Janelle Burt MR#: [id number] : 1940 Acct:[id number] Age/Sex: 82 / F Adm Date: 3 Loc: Room: [address] [place] [address] Type: ADM IN Attending Dr: Elsa Amin [...] Medrol] Allergy (Verified 01/27/23 08:01) Unknown Reaction Sjatxes-RJM-MyO Reductase Inhibitor [Xmmzgjn-Lwt-Ooj Reductase Inhibitor] Allergy (Verified 01/27/23 08:01) Unknown [...] Tablet PO 01/28/24 06:29 Not Given DAILY.0630 [facility] Losartan Potassium 25 mg 01/28/23 09:00 01/28/23 [...] fibrillation. Repeat ECG 1 hour later showed temple of sinus rhythm with first-degree AV block. Chest x-ray showed linear scarring at the left lung base. -LWV5QC3-YLJy equals 5. Recommend anticoagulation. -BNP elevated to [...] today. Documented By: Elsa Amin MD 01/28/23 1041 Signed By: <Electronically signed by Elsa Amin MD> 01/28/23 7695 [facility] Work Phone: 1([phone]) 859-648811-02-2023 Procedure [facility]11-01-2023 Consult note Author Sherron Ramos [facility] January 27, 2023 3:48pm Note Date/Time January 27, 2023 3 :36pm [facility] [address] [place] [address] Cardiology Consult Note Signed Patient: Janelle Burt MR#: [id number] : 1940 Acct:[id number] Age/Sex: 82 / F Adm Date: 3 Loc: 3T Room: [address] [place] [address] Type: ADM INOo Attending Dr: Elsa Amin [...] mild coronary disease by remote heart catheterization [id number] which included renal angiography with no evidence [...] make up place for her on the [employer] schedule tomorrow; if she declines we will arrange outpatient stress imaging on appropriate medical therapy. Review of Systems Review of Systems All other systems reviewed & are negative unless noted below or in HPI Cardiovascular Cardiovascular: Reports as per HPI and Reports radiating jaw, neck or arm pain [facility] Medical History (Updated 01/27/23 @ 15:48 by Sherron Ramos DO) Cataract Hypertension Surgical History S/P partial [...] Medrol] Allergy (Verified 01/27/23 08:01) Unknown Reaction Wxurngf-TFA-DzQ Reductase Inhibitor [Ierafop-Xcw-Byj Reductase Inhibitor] Allergy (Verified 01/27/23 08:01) Unknown [...] x10E3/uL Lymph # (Auto) 1.6 (1.00-4.8) x10E3/uL Mcdonald # (Auto) 0.5 (0.0-0.8) x10E3/uL Eos # [...] - Essential (primary) hypertension Documented By: Sherron Ramos DO 01/27/23 1526 Signed By: <Electronically signed by Sherron Ramos DO> 01/27/23 1548 [facility] Work Phone: 1([phone]) 490-752511-01-2023 History and physical note Author Elsa Amin [facility] January 27, 2023 2:57pm Note Date/Time January 27, 2023 2 :57pm [facility] [address] [place] [address] Hospitalist H&P Signed Patient: Janelle Burt MR#: [id number] : 1940 Acct:[id number] Age/Sex: 82 / F Adm Date: 3 Loc: Room: [address] [place] [address] Type: ADM INOo Attending Dr: Elsa Amin [...] to sinus rhythm with first-degree AV block. ALU2GF8-PZEu equals 5. She was admitted for further observation and cardiology evaluation. Review of Systems Review of Systems All other systems reviewed & are negative unless noted below or in HPI Review of systems: Neuro: Reports numbness/tingling in extremities. Denies dizziness/lightheadedness Pulmonary: Denies dyspnea, cough, wheezing. Cardiac: Denies chest pain/pressure, edema, palpitations. GI: Denies abdominal pain, N/V, constipation and diarrhea [facility] Medical History (Updated 01/27/23 @ 11:21 by [...] Medrol] Allergy (Verified 01/27/23 08:01) Unknown Reaction Btfmico-WZP-OlI Reductase Inhibitor [Ogcuaoj-Zbx-Jfw Reductase Inhibitor] Allergy (Verified 01/27/23 08:01) Unknown [...] % (Auto) 23.7 % (.) 01/27/23 08:12 Mcdonald % (Auto) 7.4 % (.) 01/27/23 08:12 Eos % (Auto) 1.7 % (.) 01/27/23 08:12 Baso % (Auto) 1.0 % (.) 01/27/23 08:12 Nucleat RBC Rel Count 0.1 /100 WBC (0-0.5) 01/27/23 08:12 Neut # (Auto) 4.6 x10E3/uL (1.8-7.7) 01/27/23 08:12 Lymph # (Auto) 1.6 x10E3/uL (1.00-4.8) 01/27/23 08:12 Mcdonald # (Auto) 0.5 x10E3/uL (0.0-0.8) 01/27/23 08:12 [...] fibrillation. Repeat ECG 1 hour later showed temple of sinus rhythm with first-degree AV block. Chest x-ray showed linear scarring at the left lung base. -NGE7WV2-DFLg equals 5. Recommend anticoagulation. -BNP elevated to [...] <Electronically signed by Elsa Amin MD> 01/27/23 0760 [facility] Work Phone: [phone] Evaluation note* Encounter Date Diagnosis Assessment Notes [...] PCP for lipid profile and LFTs monitoring [facility] Other 08-08-2023 Evaluation note* Encounter Date Diagnosis [...] adequately controlled. Oct, Other She is establis [facility] w podiatry for her foot fracture. [facility] Other 03-16-2023 Evaluation note* Encounter Date Diagnosis [...] supplement. We will continue to monitor PTH. [facility] Other 09-12-2022 Evaluation note* Encounter Date Diagnosis [...] supplement. We will continue to monitor PTH. [facility] Other 03-03-2022 Evaluation note* Encounter Date Diagnosis [...] primary polydipsia. She drinks plenty of fluids. [facility] Other Evaluation noteNo assessment information available [facility] Work Phone: evaluation note* Diagnosis Onset Date Resolution Status Atrial fibrillation acute Back pain with radiation acu te Hypertension acute Hypothyroid acute [facility] Work Phone: evaluation note* Diagnosis Onset Date Resolution Status Atrial fibrillation acute Back pain with radiation acu te Chest pain acute Elevated troponin acute Hypertension acute Hypothyroid acute NSTEMI (non-ST elevated myocardial infarction) acute [facility] Work Phone: Evaluation noteNo InformationNonorthwest medical center [employer] Other Evaluation note* Diagnosis Paroxysmal atrial fibrillation (CMS/HCC)- Primary Atrial fibrillation Chest pain, unspecified type Accelerated hypertension Essential hypertension, malignant Stage 3a chronic kidney disease (CMS/HCC) BMI 22.0-22.9, adult documented in this encounter [facility] Work Phone: Evaluation note* Diagnosis Paroxysmal atrial fibrillation (CMS/HCC) Atrial fibrillation Accelerated hypertension Essential hypertension, malignant Mixed hyperlipidemia Stage 3b chronic kidney disease (CMS/HCC) documented in this encounter [facility] Work Phone: Evaluation note* Diagnosis Onset Date Resolution Status Atrial fibrillation acute CKD (chronic kidney disease) stage 3, GFR 30-59 ml/min acute Hyperlipidemia acute [id number] acute Hyponatremia acute Hypoparathyroidism acute [facility] Work Phone: evaluation note* Diagnosis Onset Date Resolution Status Hypothyroid acute [facility] Work Phone: Evaluation note* Diagnosis Paroxysmal atrial fibrillation (Multi)- Primary Atrial fibrillation Chest pain, unspecified type Accelerated hypertension Essential hypertension, malignant Stage 3a chronic kidney disease (Multi) BMI 22.0-22.9, adult Accelerated hypertension Essential hypertension, malignant ASHD (arteriosclerotic heart disease) Coronary atherosclerosis of unspecified type of vessel, confederated salish or graft Paroxysmal atrial fibrillation (Multi) Atrial fibrillation Former smoker Personal history of tobacco use, presenting hazards to health Body mass index (BMI) 23.0-23.9, adult documented in this encounter [facility] Work Phone: evaluation note* Diagnosis Homonymous hemianopia, left- Primary Cerebrovascular accident (CVA), unspecified mechanism (CMS/HCC) documented in this encounter [facility] Narrative - Reported* Type Description Date Medical History hyperlipidemia Medical History hypertension Medical History cervical cancer Surgical History partial hysterectomy Surgical History appendectomy Surgical History cataract Hospitalization History SEE ABOVE [facility] [facility] Other History general Narrative - Reported* Type Description Date Medical History hyperlipidemia Medical History hypertension Medical History cervical cancer Surgical History partial hysterectomy Surgical History appendectomy Surgical History cataract Surgical History TORN RETINA IN LEFT EYE Hospitalization History SEE ABOVE [facility] Other Hiseymc general Narrative - Reported* Type Description Date Medical History hyperlipidemia Medical History hypertension Medical History cervical cancer Surgical History partial hysterectomy Surgical History appendectomy Surgical History cataract Surgical History TORN RETINA IN LEFT EYE Surgical History Heart Cath 01/2023 Hospitalization History SEE ABOVE Hospitalization History [facility] 01/2023 [facility] [employer] Other History of Present illness Narrative* The [...] sporadically. Blood pressure control has been good. [facility] Work Phone: Hospital course Narrative No data available for this section [facility] Progress note No data available for this section [facility] Reason for referral (narrative)* Consultation (Routine) - Authorized Specialty Diagnoses / Procedures Referred By Lino t Referred To Contact Cardiology Diagnoses Paroxysmal atrial fibrillation (CMS/HCC) Procedures Follow Up In Cardiology Adrien Avalos, SHOTGUN SHELL LOADING MACHINE OPERATOR-RETURNS PROCESSOR [address] [facility] [address], [address] [address] Michael Ramos, DO [address] [facility] [address], [address] [address] Referral ID Status Reason Start Date Expiration Date V isits Requested Visits Authorized [id number] Authorized 03/10/2023 03/09/2024 1 1 * Cardiovascular (Routine) - Pending Review Specialty Diagnoses / Procedures Referred By Contac t Referred To Contact Cardiology Diagnoses Paroxysmal atrial fibrillation (CMS/HCC) Procedures Holter Or Event Broaching Machine Repairer Adrien Avalos APRN-CNP [address], [place] [address] [place] [id number] Referral ID Status Reason Start Date Expiration Date V isits Requested Visits Authorized [id number] Pending Review 03/10/2023 03/09/2024 1 1 [facility] Work Phone: Reason for referral (narrative)* Consultation (Routine) - Authorized Specialty Diagnoses / Procedures Referred By Contac t Referred To Contact Cardiology Diagnoses Paroxysmal atrial fibrillation (CMS/HCC) Procedures Follow Up In Cardiology Michael Ramos DO [address], [place] [address] [place] [id number] Adrien Avalos APRN-CNP [address], [address] [address] Referral ID Status Reason Start Date Expiration Date V isits Requested Visits Authorized [id number] Authorized 05/18/2023 05/17/2024 1 1 [facility] Work Phone: Chief Complaint JANELLE BURT [...] sister has been taking care of her [employer]. She has underlying accelerated hypertension, known chronic [...] sister has been taking care of her [employer]. She has underlying accelerated hypertension, known chronic [...] gait. * Last evaluated in clinic Dr. Ramos December 2021. At that time, losartan increased [...] disease) stage 3, GFR 30-59 ml/min Hyperlipidemia [id number] Hyponatremia Hypoparathyroidism Chief Complaint routine Reason for Visit Hypothyroid Chief Complaint routine Ear irrigation Reason for Visit Hypothyroid Chief Complaint Admit Date routine December 17, 2023 10:51am Ear irrigation December 22, 2023 1:11pm Amb Documentation February 07, 2024 2:47pm UA February 17, 2024 11:37am Reason for Visit Admit Date CKD (chronic kidney disease) stage 3, GF R 30-59 ml/min December 17, 2023 10:51am Hypothyroid December 17, 2023 10:51am Rhinorrhea December 17, 2023 10:51am Impacted cerumen of both ears December 22, 2023 1:11pm Advance Directives No Advanced Directives Records Found Advance Directive Response Recorded Date/ Time Advance Directives No February 7:44pm Advance Directive Response Recorded Date/ Time Advance Directives No February 6:44pm Summary Purpose Additional Source Comments REASON FOR VISIT (unrecogniz ed section and content) Reason Comments Hospital Follow-up [facility] 01/28 Specialty Diagnoses / Procedures Referred By Contac t Referred To Contact Cardiology Diagnoses Chest pain, unspecified type Procedures Follow Up In Cardiology Michael Ramos, DO [address] [facility], [place] [address] [place] [id number] Michael Ramos, DO [address] [facility] [address], [address] [address] Referral ID Status Reason Start Date Expiration Date V isits Requested Visits Authorized [id number] Authorized 01/28/2023 01/28/2024 1 1 Reason Comments Follow-up Never had [place]. Specialty Diagnoses / Procedures Referred By Contac t Referred To Contact Cardiology Diagnoses Paroxysmal atrial fibrillation (CMS/HCC) Procedures Follow Up In Cardiology Adrien Avalos, SHOTGUN SHELL LOADING MACHINE OPERATOR-RETURNS PROCESSOR [address] [facility], [place] [address] [place] [id number] Michael Ramos, DO [address] [facility], [place] [address] [place] [phone] Referral ID Status Reason Start Date Expiration Date V isits Requested Visits Authorized [id number] Authorized 03/10/2023 03/09/2024 1 1 Reason Comments Follow-up 1 year Specialty Diagnoses / Procedures Referred By Contac t Referred To Contact Cardiology Diagnoses Accelerated hypertension Procedures Follow Up In Cardiology Michael Ramos Phone: tel: fax: Michael Ramos DO Phone: tel: fax: Referral ID Status Reason Start Date Expiration Date V isits Requested Visits Authorized [id number] Authorized 01/14/2023 01/14/2024 1 1 Reason Comments Decreased Visual Acuity Care Teams (unrecognized sec tion and content) Team Status: Active Member Role Status Dates Antonino Gustafson MD Primary Care Provider Active Team Status: Inactive Member Role Status Kathryn Gustafson MD Primary Care Provide r, Attending Provider Active Start: December 17, 2023 End: December 17, 2023 Team Status: Active Member Role Status Kathryn Gustafson MD Primary Care Provider Active Start: July 27, 2023 Liliya Cox MD Attending Provider Active Start : July 27, 2023 Team Status: Inactive Member Role Status Kathryn Gustafson MD Primary Care Provider Active Start: [...] Lian Reyes RN Other Provider Active Sherron Ramos DO Other Provider Active Ludwin Arias MD Other Provider Active Michael Carrasco MD Other Provider Active Chance Dennison MD Other Provider Active Juan Martin MD Other Provider Active Adrien Avalos APRN Other Provider Active Allie Flores MD Other Provider Active Reagan Bello MD Other Provider Active Adrienne Oconnor MD Other Provider Active Camryn Bosch [facility] Other Provider Active Svitlana Reyes MD Other Provider Active Team Status: Inactive Member Role Status Dates Antonino Gustafson MD Primary Care Provider Active Ortiz Cota DO Emergency Provider Active Team Status: Active Member Role Status Dates Antonino Gustafson MD Primary Care Provider Active Willie Lyon DO Emergency Provider Active Elsa Amin MD Admit Provider, Attending Provider Active Highway Engineering Teacher Relationship Specialty Start Date End Date Antonino Gustafson MD [facility] General 03/29/1998 Highway Engineering Teacher Relationship Specialty Start Date End Date Antonino Gustafson MD PCP - General 03/29/1998 Team Status: Inactive Member Role Status Dates Antonino Gustafson MD Primary Care Provider Active Start: December 22, 2023 End: December 22, 2023 Faby Lira APRN Attending Provider Active S tart: December 22, 2023 End: December 22, 2023 Highway Engineering Teacher Relationship Specialty Start Date End Date Antonino Gustafson MD [address] [place] [id number] [facility] General 03/29/1998 Team Status: Active Member Role Status Dates Antonino Gustafson MD Primary Care Provider Active Start: February 05, 2024 Med Patel DO Attending Provider Active S tart: February 05, 2024 Team Status: Active Member Role Status Dates Antonino Gustafson MD Primary Care Provider Active Start: February 07, 2024 Nicole Lang CMA Attending Provider Active Start: February 07, 2024 Team Status: Inactive Member Role Status Dates Antonino Gustafson MD Primary Care Provide r, Attending Provider Active Start: February 17, 2024 End: February 17, 2024 Highway Engineering Teacher Relationship Specialty Start Date End Date Antonino Gustafson MD [address] [place] [id number] [facility] Family Medicine 03/06/24 Highway Engineering Teacher Relationship Specialty Start Date End Date Antonino Gustafson MD [address] [place] [id number] PCP - General Family Medicine 03/06/24 Goals (unrecognized section and content) Goals may be documented in a n alternate section INFORMATION SOURCE (unrecogn ized section and content) DATE CREATED AUTHOR 03/21/2022 [facility] DATE CREATED AUTHOR AUTHOR'S ORGANIZ ATION 03/21/2022 [employer] DATE CREATED AUTHOR AUTHOR'S ORGANIZ ATION 06/05/2022 [facility] DATE CREATED AUTHOR AUTHOR'S ORGANIZ ATION [facility] DATE CREATED AUTHOR AUTHOR'S ORGANIZ ATION 03/02/2024 [facility] DATE CREATED AUTHOR AUTHOR'S ORGANIZ ATION 03/09/2024 [facility] EPIC DATE CREATED AUTHOR AUTHOR'S ORGANIZ ATION 03/09/2024 [facility] DATE CREATED AUTHOR AUTHOR'S ORGANIZ ATION 03/10/2024 [facility] DATE CREATED AUTHOR AUTHOR'S ORGANIZ ATION 03/11/2024 [facility] FOR RECORDS PERTAINING TO PATIENTS WHO ARE [...] BE BASED ON THE PRIMARY CLINICAL RECORDS. [employer] provides no warranty or guarantee of the accuracy or completeness of information in this document.
[2024-03-21 08:59] LABS: Hematocrit 43.9 % (36.0-48.0); Mean Corpuscular HGB Conc 34.2 g/dL (29.9-35.2); Mean Corpuscular Hemoglobin 30.1 pg (26.7-34.0); Mean Corpuscular Volume 88.2 fL (81.0-99.0); Mean Platelet Volume 9.3 fL (9.5-13.5); Platelet Count 261 10^3/uL (150-450); Red Blood Count 4.98 10^6/uL (4.20-5.40); Red Cell Distribution Width 12.9 % (11.0-15.0)
[2024-03-21 09:31] LABS: Albumin Level 3.7 g/dL (3.4-5.0); Anion Gap 10.5; BUN Creatinine Ratio 24.6; Calcium 9.6 mg/dL (8.5-10.1); Carbon Dioxide 31.5 mmol/L (21.0-32.0); Chloride 98 mmol/L (98-107); Estimated GFR (African America 51 (>=60 mL/min/1.73m^2); Estimated GFR (Non-African Ame 42 (>=60 mL/min/1.73m^2); Glucose 92 mg/dL (74-106); Magnesium 1.9 mg/dL (1.8-2.4); Phosphorus 3.7 mg/dL (2.6-4.7); Sodium 136 mmol/L (136-145); Uric Acid 4.4 mg/dL (2.6-6.0)
[2024-03-21 10:58] LABS: Bilirubin Urine NEGATIVE (NEGATIVE); Blood Urine NEGATIVE (NEGATIVE); Clarity Urine CLEAR (CLEAR); Color Urine LT. YELLOW (YELLOW); Glucose Urine UA NEGATIVE (NEGATIVE); Ketones Urine NEGATIVE (NEGATIVE); Leukocyte Esterase Urine TRACE (NEGATIVE); Nitrite Urine NEGATIVE (NEGATIVE); Protein Urine NEGATIVE (NEG/TRACE); Urobilinogen Urine 0.2 EU/dL (0.2-1.0)
[2024-03-21 10:59] LABS: Creatinine Urine Random 84.33 mg/dL (20.00-300.00); Protein Creatinine Ratio Urine 0.09; Total Protein Urine Random 7.5 mg/dL (<=11.9)
[2024-03-21 11:56] LABS: Bacteria Urine TRACE #/HPF (NONE SEEN); RBC Urine 0-2 #/HPF (0-2); WBC Urine 0-2 #/HPF (NONE SEEN)
[2024-03-21 11:57] LABS: Cast Seen? NONE SEEN #/LPF (NONE SEEN); Crystals Seen? None Seen #/HPF (None Seen); Mucus Urine TRACE (NONE SEEN)
[2024-03-21 11:58] LABS: Urine Culture Indicated NO
[2024-03-21 11:59] LABS: Squamous Epithelial Cell Urine FEW #/LPF (NONE/RARE)
[2024-03-23 12:07] LABS: PTH, Intact 16 pg/mL (15-65)
== END 2024-03-21 08:16 | disposition home or self-care (01) ==
LOC: LAB 08:16
PROVIDERS: PCP Family Medicine; Visit Provider Internal Medicine
DX: E03.9 Hypothyroidism, unspecified (principal); E78.5 Hyperlipidemia, unspecified; E20.9 Hypoparathyroidism, unspecified; I12.9 Hypertensive chronic kidney disease with stage 1 through stage 4 chronic kidney disease, or unspecified chronic kidney disease; N18.30 Chronic kidney disease, stage 3 unspecified; I48.91 Unspecified atrial fibrillation
CPT/HCPCS: 36415; 80069; 81001; 82306; 82570; 83735; 83970; 84156; 84439; 84443; 84550; 85027

== ENCOUNTER 2024-03-21 08:25 | Outpatient (OUT) | payer MEDICARE, OTHER, SELFPAY ==
--- OUTSIDE RECORDS SUMMARY | 2024-03-21 08:29 | XMS_ITS | CCD ---
Author Organization [facility] Care Team Providers Care Chaplaincy Name Role Phone Antonino Gustafson Unavailable Unavailable Unavailable Bhavna, Liliya Unavailable MD Antonino Gustafson Primary Care Provider [phone] DO Ortiz Cota Emergency Provider Sj, Dr. Antonino Macedo Primary Care Karleyv eli Avalos, CUSTOM BOW MAKER Adrien Attending Unavailable Richard, Dr. Michael Ram [...] Care Provider DO Willie Lyon Emergency Provider [phone] MD Elsa Amin Admit Provider MD Elsa Amin Attending Provider MD Antonino Gustafson Primary Care Provider [phone] DO Willie Lyon Emergency Provider [phone] MD Elsa Amin Admit Provider MD Elsa [...] Provider MD Adrienne Oconnor Other Provider Danitza [facility] Camryn Harris Other Provider [phone] MD Svitlana Reyes Other Provider [phone] Antonino Gustafson MD Primary Care Provider Antonino Gustafson MD Primary Care Provider [phone] nAtonino Gustafson MD Primary Care Provider [phone] ADRIEN AVALOS Attending Unavailable MICHAEL RAMOS Referring [...] Consulting Unavailable MD Kamar Escobar Consulting Unavailable [place], Kamar Consulting Unavailable [place], Kamar Consulting Unavailable [place], Kamar Consulting Unavailable [place], Kamar Consulting Unavailable [place], Kamar Consulting Unavailable [place], Kamar Consulting Unavailable [place], Kamar Consulting Unavailable Willie Kearney Attending Unavailable [place], Kamar Consulting Unavailable Willie Kearney Admitting Unavailable MD Kamar Escobar Consulting Unavailable [place], Kamar Consulting Unavailable [place], Kamar Consulting Unavailable [place], Kamar Consulting Unavailable [place], Kamar Consulting Unavailable [place], Kamar Consulting Unavailable [place], Kamar Consulting Unavailable [place], Kamar Consulting Unavailable ANTONINO GUSTAFSON Primary Care Physician [phone] Michael Worthington Attending Unavailable Allergies Allergy Classification Reported Allergen(s) Allergy Type Date of Onset Reaction(s) Facility (20 sources) amLODIPine; Translations: [Norvasc] Drug Allergy 023 [facility] (11 sources) Angiotensin Converting Enzyme (Tati) Inhibitors; Translations: [TATI Inhibitors] Allergy to drug (finding) 023 [place] [address] Repository (14 sources) cloNIDine; Translations: [Ypqvoeph-QEE-1 PTWK] Drug Allergy 023 Shortness of breath [place] [address] DO Work Phone: (13 sources) Hmg-Coa Reductase Inhibitors (Statins); Translations: [Statins] Allergy to drug (finding) Myalgia, Unknown [place] [address] DO Work Phone: (20 sources) hydrALAZINE; Translations: [hydrALAZINE] Drug Allergy 022 Diarrhea [facility] (20 sources) Lisinopril; Translations: [lisinopril] Drug Allergy 022 Rash [facility] (10 sources) methylPREDNISolone; Translations: [Medrol (Nestor) TABS] Drug Allergy Anaphylaxis [place] [address] DO Work Phone: (16 sources) Sulfamethoxazole; Translations: [sulfa] Drug Allergy 023 Rash [place] [address] DO Work Phone: (13 sources) Ciprofloxacin Drug Allergy 024 Unknown, Comment:joint pain [facility] (8 sources) cloNIDine Drug Allergy Unknown [address] 263 Other (20 sources) methylPREDNISolone; Translations: [METHYLPREDNISOLONE] Drug Allergy 022 Anaphylaxis [facility] (9 sources) amLODIPine; Translations: [AMLODIPINE] Drug Allergy Unknown Reaction [facility] (9 sources) cloNIDine; Translations: [CLONIDINE] Drug Allergy Unknown Reaction [facility] (8 sources) Sulfonamides (Antibiotic); Translations: [Sulfa (Sulfonamide Antibiotics)] Allergy to substance Unknown Reaction [facility] (8 sources) Blfwnzf-RCG-GaO Reductase Inhibitor; Translations: [Vcylvlm-YQS-SpJ Reductase Inhibitor] Allergy to substance Unknown Reaction [facility] (1 source) Amino Acids Drug Allergy 013 [facility] Repository (1 source) amLODIPine Drug Allergy 013 [facility] Repository (2 sources) black walnut pollen extract; Translations: [WZAXVKD-PCW-ITM REDUCTASE INHIBITORS] Drug Allergy 013 [facility] Repository (1 source) hydrALAZINE Drug Allergy 015 [facility] Repository (1 source) methylPREDNISolone Drug Allergy 015 [facility] Repository (1 source) Sulfonamides (Antibiotic) Drug allergy (disorder) 013 [facility] Repository (5 sources) Statins Depletion *DIETARY PRODUCTS/DIETARY MANAGE Propensity to adverse reactions Unknown Net 263 Other (5 sources) Sulf-10 Drug allergy Unknown [address] 263 Other (3 sources) Angiotensin-convertin g enzyme inhibitor agent Drug Allergy 023 [facility] (3 sources) HMG-CoA reductase inhibitor Drug Allergy 023 Myalgia [facility] Work Phone: (2 sources) Sulfamethoxazole; Translations: [SULFAMETHOXAZOLE] Drug Allergy 023 [place] [address] Repository (1 source) Ciprofloxacin Drug Allergy [facility] Repository (1 source) hydrALAZINE Drug Allergy [facility] Repository (1 source) Lisinopril Drug Allergy [facility] Repository (1 source) methylPREDNISolone Drug Allergy [facility] Repository (1 source) Angiotensin-convertin g enzyme inhibitor agent Drug Allergy [facility] (1 source) Simvastatin Allergy to substance [facility] (1 source) Sulfamethoxazole / Trimethoprim Drug Allergy [facility] (7 sources) No Known Medication Allergies; Translations: [No Known Medication Allergies] Propensity to adverse reactions (disorder) [facility] Repository Medications Current Medications Medication Drug Class(es) [...] Bedtime, # 30 tab(s), Refills(s) 0, Pharmacy: [facility]/pharmacy #[id number], 167.6, cm, 03/06/24 15:03:00 EST, Height/Length [...] 1 spray(s) nasal route twice daily Ipratropium [place] 21 mcg (0.03 %) spray,non-aerosol Active 2 [...] Coronary arteriosclerosis; Translations: [Atherosclerotic heart disease of [place] coronary artery without angina pectoris] Onset: 4 [...] had issues intermittently since january. Went to [facility] who sent over for stroke workup. both [...] made to ensure accuracy, however, inadvertently computerized bilingual instructor mistakes may be present. Appropriate healthcare PPE [...] 15:17:00) Lymph Auto: 25 % (03/06/24 15:17:00) [place] Auto: 10.2 % (03/06/24 15:17:00) Eos Auto: 1 % (12/ (more content not included)... Normal [facility] Comment on above: Result Comment: Elec tronically [...] Locations R1: This test was performed at: [facility], [address] [place] [address], [address]- , , Normal [facility] Comment on above: Performed By: #### 2 [id number] #### [facility] [address] [place] [address] Lab Miscellaneous-LCon 03-08 Lab Miscellaneous COMMENT Invalid Interpretation Code [facility] Comment on above: Result Comment: Test Ordered: [id number] Hemoglobin A1c Hemoglobin A1c 5.4 % Reference Range: 4.8-5.6 Prediabetes: 5.7 - 6.4 Diabetes: >6.4 Glycemic control for adults with diabetes: <7.0 Performed at: [facility] [address] [id number] PhD Tila Wasserman Performed By: #### 1 [id number] #### [facility] [address] [place] [address] [facility] Anion gap [Moles/Vol] 11 mmol/L Normal 6-16 [facility] Comment on above: Performed By: #### 2 [id number] #### [facility] [address] [place] [address] Calcium [Mass/Vol] 9.3 mg/dL Normal 8.9-11.1 [facility] Comment on above: Performed By: #### 2 852647 #### [facility] [address] [place] [address] Chloride [Moles/Vol] 97 mmol/L Low 101-111 [facility] Comment on above: Performed By: #### 2 763291 #### [facility] [address] [place] [address] CO2 [Moles/Vol] 26 mmol/L Normal 21-31 [facility] Comment on above: Performed By: #### 2 160237 #### [facility] [address] [place] [address] Creatinine [Mass/Vol] 0.9 mg/dL Normal 0.5-1.3 [facility] Comment on above: Performed By: #### 2 581290 #### [facility] [address] [place] [address] Glucose [Mass/Vol] 109 mg/dL Normal 55-199 [facility] Comment on above: Performed By: #### 2 863415 #### [facility] [address] [place] [address] Potassium [Moles/Vol] 3.8 mmol/L Normal 3.5-5.3 [facility] Comment on above: Performed By: #### 2 383578 #### [facility] [address] [place] [address] Sodium [Moles/Vol] 130 mmol/L Low 135-145 [facility] Comment on above: Performed By: #### 2 018616 #### [facility] [address] [place] [address] Urea nitrogen [Mass/Vol] 16 mg/dL Normal 5-21 [facility] Comment on above: Performed By: #### 2 263820 #### [facility] [address] [place] [address] Urea nitrogen/Creatinine [Mass ratio] 18 No Units Normal 10-20 [facility] Comment on above: Performed By: #### 2 895062 #### [facility] [address] [place] [address] CBC w/ Auto Diffon 4 Basophils/100 WBC (Bld) 0.5 % Normal 0.0-2.0 [facility] Comment on above: Performed By: #### 2 004813 #### [facility] [address] [place] [address] Basophils/Leukocytes Auto (Bld) [Pure # fraction] 0.0 E9/L Normal 0.0-0.2 [facility] Comment on above: Performed By: #### 2 529373 #### [facility] [address] [place] [address] Eosinophils (Bld) [#/Vol] 0.1 E9/L Normal 0.0-0.5 [facility] Comment on above: Performed By: #### 2 949193 #### [facility] [address] [place] [address] Eosinophils/100 WBC (Bld) 0.8 % Normal 0.0-8.0 [facility] Comment on above: Performed By: #### 2 598830 #### [facility] [address] [place] [address] Erythrocyte distribution width (RBC) [Ratio] 13.6 % Normal 10.9-14.2 [facility] Comment on above: Performed By: #### 2 879728 #### [facility] [address] [place] [address] Hematocrit (Bld) [Volume fraction] 42.2 % Normal 34.0-46.0 [facility] Comment on above: Performed By: #### 2 371296 #### [facility] [address] [place] [address] Hemoglobin (Bld) [Mass/Vol] 15.0 g/dL Normal 12.0-16.0 [facility] Comment on above: Performed By: #### 2 256766 #### [facility] [address] [place] [address] Lymphocytes (Bld) [#/Vol] 1.2 E9/L Normal 1.0-4.0 [facility] Comment on above: Performed By: #### 2 236711 #### [facility] [address] [place] [address] Lymphocytes/100 WBC (Bld) 13.0 % Low 14.0-50.0 [facility] Comment on above: Performed By: #### 2 450883 #### [facility] [address] [place] [address] MCH (RBC) [Entitic mass] 31.3 pg Normal 27.0-34.0 [facility] Comment on above: Performed By: #### 2 200195 #### [facility] [address] [place] [address] MCHC (RBC) [Mass/Vol] 35.7 g/dL Normal 31.4-36.0 [facility] Comment on above: Performed By: #### 2 459020 #### [facility] [address] [place] [address] MCV (RBC) [Entitic vol] 87.8 fL Normal 80.0-100.0 [facility] Comment on above: Performed By: #### 2 331866 #### [facility] [address] [place] [address] Monocytes (Bld) [#/Vol] 0.9 E9/L Normal 0.2-1.0 [facility] Comment on above: Performed By: #### 2 928847 #### [facility] [address] [place] [address] Neutrophils (Bld) [#/Vol] 7.2 E9/L Normal 2.0-7.5 [facility] Comment on above: Performed By: #### 2 867559 #### [facility] [address] [place] [address] Neutrophils/100 WBC (Bld) 76.5 % High 36.0-75.0 [facility] Comment on above: Performed By: #### 2 928394 #### [facility] [address] [place] [address] Platelet mean volume (Bld) [Entitic vol] 7.7 fL Normal 6.4-10.8 [facility] Comment on above: Performed By: #### 2 650193 #### [facility] [address] [place] [address] Platelets (Bld) [#/Vol] 218.0 E9/L Normal 150. 0-500. 0 [facility] Comment on above: Performed By: #### 2 906489 #### [facility] [address] [place] [address] RBC (Bld) [#/Vol] 4.8 E12/L Normal 4.3-5.9 [facility] Comment on above: Performed By: #### 2 609958 #### [facility] [address] [place] [address] WBC corrected for nucl RBC Auto (Bld) [#/Vol] 9.4 E9/L Normal 4.0-11.0 [facility] Comment on above: Performed By: #### 2 808955 #### [facility] [address] [place] [address] CHEMISTRYOrdered By: SYSTEM SYSTEM on 03-07-2024 Anion [...] 370 Contrast amount in ml's: 100 Normal [facility] CTA Neckon 03-07-2024 CTA Neck Exam Date/Time: [...] of the vertebrobasilar circulation with small caliber loan documentation specialist, without distinct focal high-grade proximal stenosis of the loan documentation specialist within limits of the small caliber. Dural venous sinuses: Visualized dural venous sinuses are patent. Ordering Provider: Abdulkadir Amaro FINAL REPORT Dictated: 03/07/2024 12:27 pm Marlon Flores MD Signed (Electronic Signature): 03/07/2024 12:27 pm Signed by: Marlon Flores MD Transcribed by: IGOR Technologist: DOMENICO Technical Comments GFR (mL/min/1/73m2) >60 Contrast: Isovue 370 Contrast amount in ml's: 100 Normal [facility] HEMATOLOGYOrdered By: SYSTEM SYSTEM on 03-07-2024 Basophils/100 [...] 03-07-2024 Inpatient Clinical Summary Inpatient Clinical Summary [address] [address] Clinical Summary Person Information: Name: JANELLE BURT Age: 83 Years : 1940 Sex: Female PCP: ANTONINO GUSTAFSON MD Marital Status: Single Race: White Ethnicity: Non- or Language: Croatian Visit Id: Visit Reason: Vision changes; SENT BY EYE DOCTOR - POSSIBLE STROKE Speciality: Acuity: Enc Type: Observation Med Service: Medical Arrival: 03/06/2024 14:47:18 Discharge: Dispo Type: Admitted as IP to this Hosp Address: [address] [place] [id number] Provider Notes: Diagnosis: 1:CVA (cerebrovascular accident); 2:HTN [...] With: Address: When: ANTONINO GUSTAFSON MD, FAM [facility] [place] [address] Within 5 to 7 days Comments: Call for followup appointment to talk about switching from Eliquis to Coumadin once you are out of Eliquis With: Address: When: Kamar Escobar MD, NEU [address] [place] [address] Within 2 to 4 weeks Patient Education Information: Atrial Fibrillation, Yqvu-zn-Qfqs; Core Measures: Stroke (Cerebrovascular Accident) [facility], (CUSTOM) [facility] Inpatient Patient Summaryon 03-07-2024 Inpatient Patient Summary [...] are out of Eliquis Where: [address] [place] [address]- Follow Up with Shawn MORA, YVES Galvin When: Within 2 to 4 weeks Where: [place] [address] [place] [address]- Medications What How Much When Instructions Next Dose New atorvastatin (atorvastatin 40 mg Tab) 1 Tablets By Mouth At bedtime Pickup at [facility]/pharmacy #[id number] 03/07 0900PM Changed apixaban (Eliquis 5 [...] as needed for chest pain Pharmacy Information [facility]/pharmacy #[id number]: [address] [place], [place] [id number] [phone] Test Results CBC BMP WBC: 9.4 E9/L [...] ??? Y (more content not included)... Normal [facility] Interdisciplinary Note - Rikki e Manageron 03-07-2024 Interdisciplinary Note - Wood Heel Attacher Interdisciplinary Note - Wood Heel Attacher CRM to room 304 Patient is awake, [...] it will work until that date comes [facility] for transport. Patient has family assistance as needed Transport flyers are in admission folder Patient does not need to meet for Advance Directives Normal [facility] Comment on above: Result Comment: Elec tronically Signed By: Yaneli Day\.br\Date and Time Signed: 03/07/24 15:09 EST Interdisciplinary Note - Berkley n 03-07-2024 Interdisciplinary Note - OT Interdisciplinary Note - OT OT [facility] six clicks score 22 = no further inpatient OT needs. However, discussed referral to outpatient OT for evaluation of visual field cuts and education on retraining, remediation and home program/home safety techniques to optimize improvement. Patient is agreeable but is unable to drive. Patient reports she would be interested in senior services transportation if available. DC inpatient OT needs. Normal [facility] Interdisciplinary Note - Spe ech Languageon 03-07-2024 Interdisciplinary Note - Speech Language Interdisciplinary Note - Speech Language ST 03/07/24: per nursing no issues noted. pt with regular breakfast tray present, reports no issues with talking or swallowing. will cancel order at this time. please reconsult as needed. nursing aware/in agreement. Normal [facility] Lab Miscellaneous-LCon 03-07 Test Code [id number] Invalid Interpretation Code [facility] Comment on above: Performed By: #### 1 [id number] #### [facility] [address] [place] [address] Test Name HbA1c Invalid Interpretation Code [facility] Comment on above: Performed By: #### 1 [id number] #### [facility] [address] [place] [address] Lipid Panelon 03-07-2024 Cholesterol [Mass/Vol] 160 mg/dL Normal 120-200 Fi [facility] Comment on above: Performed By: #### 2 [id number] #### [facility] [address] [place] [address] Cholesterol in HDL [Mass/Vol] 49 mg/dL Invalid Interpretation Code [facility] Comment on above: Result Comment: '>= 60 LOW RISK' '<= 40 HIGH RISK' Performed By: #### 2 661195 #### [facility] [address] [place] [address] Cholesterol in LDL [Mass/Vol] 100 mg/dL Normal <=129 [facility] Comment on above: Performed By: #### 2 900787 #### [facility] [address] [place] [address] Cholesterol in VLDL [Mass/Vol] 21 mg/dL Normal 7-40 [facility] Comment on above: Performed By: #### 2 383155 #### [facility] [address] [place] [address] Triglyceride [Mass/Vol] 107 mg/dL Normal <=149 [facility] Comment on above: Performed By: #### 2 688777 #### [facility] [address] [place] [address] MRI Brain w/o Contraston MRI Brain w/o [...] IGOR Technologist: KIMBERLY Technical Comments None Normal [facility] Reference Laboratory Testing Ordered By: Yolanda Raphael on 03-07-2024 Test Code [id number] 1 Invalid Interpretation Code [facility] Test Name HbA1c Invalid Interpretation Code [facility] eGFRon 03-07-2024 eGFR 63 mL/min/1.73 m2 Normal >=59 [facility] Comment on above: Performed By: #### 1 [id number] #### [facility] [address] [place] [address] BB Draw & Holdon 03-06-2024 BB D&H Sample drawn for Blood Ba Normal [facility] Comment on above: Performed By: #### 1 [id number] #### [facility] [address] [place] [address] CBC w/ Auto Diffon 4 Basophils/100 WBC (Bld) 0.8 % Normal 0.0-2.0 [facility] Comment on above: Performed By: #### 2 [id number] #### [facility] [address] [place] [address] Basophils/Leukocytes Auto (Bld) [Pure # fraction] 0.1 E9/L Normal 0.0-0.2 [facility] Comment on above: Performed By: #### 2 367668 #### [facility] [address] [place] [address] Eosinophils (Bld) [#/Vol] 0.1 E9/L Normal 0.0-0.5 [facility] Comment on above: Performed By: #### 2 228013 #### [facility] [address] [place] [address] Eosinophils/100 WBC (Bld) 1.0 % Normal 0.0-8.0 [facility] Comment on above: Performed By: #### 2 542690 #### [facility] [address] [place] [address] Erythrocyte distribution width (RBC) [Ratio] 13.5 % Normal 10.9-14.2 [facility] Comment on above: Performed By: #### 2 [id number] #### [facility] [address] [place] [address] Hematocrit (Bld) [Volume fraction] 40.7 % Normal 34.0-46.0 [facility] Comment on above: Performed By: #### 2 591505 #### [facility] [address] [place] [address] Hemoglobin (Bld) [Mass/Vol] 14.5 g/dL Normal 12.0-16.0 [facility] Comment on above: Performed By: #### 2 851918 #### [facility] [address] [place] [address] Lymphocytes (Bld) [#/Vol] 2.2 E9/L Normal 1.0-4.0 [facility] Comment on above: Performed By: #### 2 622235 #### [facility] [address] [place] [address] Lymphocytes/100 WBC (Bld) 25.0 % Normal 14.0-50.0 [facility] Comment on above: Performed By: #### 2 425575 #### [facility] [address] [place] [address] MCH (RBC) [Entitic mass] 31.4 pg Normal 27.0-34.0 [facility] Comment on above: Performed By: #### 2 594473 #### [facility] [address] [place] [address] MCHC (RBC) [Mass/Vol] 35.6 g/dL Normal 31.4-36.0 [facility] Comment on above: Performed By: #### 2 768113 #### [facility] [address] [place] [address] MCV (RBC) [Entitic vol] 88.3 fL Normal 80.0-100.0 [facility] Comment on above: Performed By: #### 2 652863 #### [facility] [address] [place] [address] Monocytes (Bld) [#/Vol] 0.9 E9/L Normal 0.2-1.0 [facility] Comment on above: Performed By: #### 2 104376 #### [facility] [address] [place] [address] Neutrophils (Bld) [#/Vol] 5.4 E9/L Normal 2.0-7.5 [facility] Comment on above: Performed By: #### 2 678673 #### [facility] [address] [place] [address] Neutrophils/100 WBC (Bld) 63.0 % Normal 36.0-75.0 [facility] Comment on above: Performed By: #### 2 901252 #### [facility] [address] [place] [address] Platelet mean volume (Bld) [Entitic vol] 7.6 fL Normal 6.4-10.8 [facility] Comment on above: Performed By: #### 2 491269 #### [facility] [address] [place] [address] Platelets (Bld) [#/Vol] 205.0 E9/L Normal 150. 0-500. 0 [facility] Comment on above: Performed By: #### 2 629330 #### [facility] [address] [place] [address] RBC (Bld) [#/Vol] 4.6 E12/L Normal 4.3-5.9 [facility] Comment on above: Performed By: #### 2 774883 #### [facility] [address] [place] [address] WBC corrected for nucl RBC Auto (Bld) [#/Vol] 8.6 E9/L Normal 4.0-11.0 [facility] Comment on above: Performed By: #### 2 159137 #### [facility] [address] [place] [address] CHEMISTRYOrdered By: SYSTEM SYSTEM on 03-06-2024 Albumin [...] Sensitivity Troponin I Instructions For Use, [employer], October 2017) Urea nitrogen [Mass/Vol] 21 mg/dL Normal 5 - 21 mg/dL Remisol Chem Urea nitrogen/Creatinine [Mass ratio] 19 mg/mg Normal 10 - 20 Remisol Chem CHEMISTRYOrdered By: Lab ROP User on 03-06-2024 Glucose [Mass/Vol] 89 mg/dL Normal 55 - 99 mg/dL [facility] POC Subsection Comment on above: Result Comment: Johnathon spears RN/ POC Device SN [id number] 1 Invalid Interpretation Code [facility] POC Subsection POC User ID [id number] 1 Invalid Interpretation Code [facility] POC Subsection POC Username ESTELLE FOX Invalid Interpretation Code [facility] POC Subsection CMPon 03-06-2024 Albumin [Mass/Vol] 3.9 g/dL Normal 3.3-5.0 [facility] [facility] Comment on above: Performed By: #### 2 [id number] #### [facility] [address] [place] [address] Albumin/Globulin (S) [Mass conc ratio] 1.2 Normal 1.1-2.2 [facility] Comment on above: Performed By: #### 2 [id number] #### [facility] [address] [place] [address] ALP [Catalytic activity/Vol] 51 Int._Unit/L Normal 21-98 [facility] Comment on above: Performed By: #### 2 [id number] #### [facility] [address] [place] [address] ALT No additional P-5'-P [Catalytic activity/Vol] 10 Int._Unit/L Normal 6-46 [facility] Comment on above: Performed By: #### 2 [id number] #### [facility] [address] [place] [address] Anion gap [Moles/Vol] 9 mmol/L Normal 6-16 [facility] Comment on above: Performed By: #### 2 [id number] #### [facility] [address] [place] [address] AST [Catalytic activity/Vol] 16 Int._Unit/L Normal 5-43 [facility] Comment on above: Performed By: #### 2 [id number] #### [facility] [address] [place] [address] Bilirubin [Mass/Vol] 0.9 mg/dL Normal 0.0-1.1 [facility] Comment on above: Performed By: #### 2 [id number] #### [facility] [address] [place] [address] Calcium [Mass/Vol] 9.4 mg/dL Normal 8.9-11.1 [facility] Comment on above: Performed By: #### 2 [id number] #### [facility] [address] [place] [address] Chloride [Moles/Vol] 95 mmol/L Low 101-111 [facility] Comment on above: Performed By: #### 2 [id number] #### [facility] [address] [place] [address] CO2 [Moles/Vol] 29 mmol/L Normal 21-31 [facility] Comment on above: Performed By: #### 2 [id number] #### [facility] [address] [place] [address] Creatinine [Mass/Vol] 1.1 mg/dL Normal 0.5-1.3 [facility] Comment on above: Performed By: #### 2 [id number] #### [facility] [address] [place] [address] Globulin (S) [Mass/Vol] 3.2 g/dL Normal 1.4-4.0 [facility] Comment on above: Performed By: #### 2 [id number] #### [facility] [address] [place] [address] Glucose [Mass/Vol] 97 mg/dL Normal 55-199 [facility] Comment on above: Performed By: #### 2 [id number] #### [facility] [address] [place] [address] Potassium [Moles/Vol] 4.1 mmol/L Normal 3.5-5.3 [facility] Comment on above: Performed By: #### 2 [id number] #### [facility] [address] [place] [address] Protein [Mass/Vol] 7.1 g/dL Normal 6.0-7.8 [facility] Comment on above: Performed By: #### 2 [id number] #### [facility] [address] [place] [address] Sodium [Moles/Vol] 129 mmol/L Low 135-145 [facility] Comment on above: Performed By: #### 2 [id number] #### [facility] [address] [place] [address] Urea nitrogen [Mass/Vol] 21 mg/dL Normal 5-21 [facility] Comment on above: Performed By: #### 2 [id number] #### [facility] [address] [place] [address] Urea nitrogen/Creatinine [Mass ratio] 19 No Units Normal 10-20 [facility] Comment on above: Performed By: #### 2 [id number] #### [facility] [address] [place] [address] COAGULATIONOrdered By: Arvin Quevedo on 03-06-2024 aPTT Coag (PPP) [Time] 29.4 s Normal 25.1 - 36.5 second(s) [facility] Comment on above: Interpretive Data: [...] the same coagulation reagent and instrumentation as [facility]. Currently there are no coagulation studies available worldwide for children to 14 days, and no normal ranges. Heparin therapeutic range (represented by Anti-Factor Xa activity of 0.2 - 0.4 U/mL) corresponds to PTT of 56.6 - 109.0 sec. INR Coag (PPP) [Relative time] 1.05 {INR} Invalid Interpretation Code [facility] Comment on above: Interpretive Data: I NR results are specifically intended to assess patients stabilized on long-term Anticoagulation therapy suggested INR s Less Intensive Anticoagulation 2.0 3.0 Conventional Range 3.0 4.5 PT Coag (PPP) [Time] 11.8 s Normal 9.4 - 1 2.5 second(s) [facility] Comment on above: Interpretive Data: [...] the same coagulation reagent and instrumentation as [facility]. Currently there are no coagulation studies available [...] MD Transcribed by: IGOR Technologist: EDUAR Normal [facility] Capillary Glucose POCon Glucose [Mass/Vol] 89 mg/dL Normal 55-99 [facility] Comment on above: Result Comment: Johnathon spears RN/ Performed By: #### 2 [id number] #### [facility] [address] [place], [place] [id number] ED Clinical Summaryon 2023 ED Clinical Summary ED Clinical Summary [address] [address] ED Clinical Summary Person Information [facility]: [facility] Age[facility] 83 Years : 1940 Sex: Female Language: Croatian PCP: ANTONINO GUSTAFSON MD Marital Status: Single Visit Id: Visit Reason: Vision changes; SENT BY EYE DOCTOR - POSSIBLE STROKE Speciality: Acuity: 2 Enc Type: Observation Med Service: Medical Arrival: 03/06/2024 14:47:18 Discharge: LOS: 000 05:16 Checkin: 03/06/2024 14:47:18 Checkout: 03/06/2024 20:03:26 Dispo Type: Admitted as IP to this [facility] EVENTS: Event Name Event Status Request [...] 03/06/2024 20:03:26 03/06/2024 20:03:26 03/06/2024 20:03:26 ADDRESS: [address] [place] [id number] [facility] DOC NOTES: MEDICAL INFORMATION: Prescriptions Given: PATIENT EDUCATION INFORMATION: Instructions: Follow up: DIAGNOSIS: 1:CVA (cerebrovascular accident); 2:HTN (hypertension); 3:Hypothyroidism; 4:A-fib; 5:Hyperlipidemia Normal [facility] ED Note-Nursingon 03-06-2024 ED Note-Nursing ED Note-Nursing Pt returns from MRI. Normal [facility] ED Note-Nursing ED Note-Nursing Finger stick at 1502 is 89 Normal [facility] ED Patient Education Noteon 03-06-2024 ED Patient Education Note ED Patient Education Note Normal [facility] ED Patient Summaryon ED Patient Summary ED Patient Summary [address] [address] Patient Discharge Instructions Person Information Name: JANELLE BURT Age: 83 Years Arrival Date: 03/06/2024 14:47:18 Discharge Diagnosis: 1:CVA (cerebrovascular accident); 2:HTN (hypertension); 3:Hypothyroidism; 4:A-fib; 5:Hyperlipidemia Primary Care Physician: ANTONINO GUSTAFSON MD Provider Information Primary Provider: Rolando Zarco DO Advanced Stretcher And Drier:Julio Escalante PA-C The exam and treatment you received in the Emergency Department were for an urgent problem and are not intended as complete care. It is important that you follow up with a doctor, nurse practitioner, or physician???s music library assistant for ongoing care. If your symptoms become worse or you do not improve as expected and you are unable to reach your usual health care provider, you should return to the Emergency Department. We are available 24 hours a day. JANELLE UBRT has been given the following list of [...] opioids can be used to help relieve rvezopgg-cy-lehpeq pain and are often prescribed following a [...] be struggling with addiction, tell your health primary care coordinator and ask for guidance or call [facility]???S National Helpline at 8-826-372-RQUA. (more content not included)... Normal [facility] HEMATOLOGYOrdered By: SYSTEM SYSTEM on 03-06-2024 Basophils/100 [...] Nom (U) 1,000 cfu/ml Mixed skin contaminants [facility] PT & PTTon 03-06-2024 aPTT Coag (PPP) [Time] 29.4 second(s) Normal 25.1-36.5 [facility] Comment on above: Result Comment: Para meter [...] the same coagulation reagent and instrumentation as [facility]. Currently there are no coagulation studies available worldwide for children to 14 days, and no normal ranges. Heparin therapeutic range (represented by Anti-Factor Xa activity of 0.2 - 0.4 U/mL) corresponds to PTT of 56.6 - 109.0 sec. Performed By: #### 1 [id number] #### [facility] [address] [place] [address] INR Coag (PPP) [Relative time] 1.05 {INR} Invalid Interpretation Code [facility] Comment on above: Result Comment: INR results are specifically intended to assess patients stabilized on long-term Anticoagulation therapy suggested INR???s ???Less Intensive Anticoagulation??? 2.0 ??? 3.0 Conventional Range 3.0 ??? 4.5 Performed By: #### 1 [id number] #### [facility] [address] [place] [address] PT Coag (PPP) [Time] 11.8 second(s) Normal 9.4-12.5 [facility] Comment on above: Result Comment: 15 d [...] the same coagulation reagent and instrumentation as [facility]. Currently there are no coagulation studies available worldwide for children to 14 days, and no normal ranges. Performed By: #### 1 [id number] #### [facility] [address] [place] [address] Perimetry studyon 03-06-2024 Right Eye Reliability was poor. Left Eye Reliability was poor. Notes Lt homonymous deni [facility] Radiology Study observation (narrative) [facility] Troponin 0 Hr.on 03-06-2024 Troponin HS 5.30 pg/mL Low 10.10-27.1 0 [facility] Comment on above: Result Comment: The 95% CI (Confidence Interval) PPV (Positive Predictive Value) for myocardial infarction in females is 38 pg/mL, in males 51 pg/mL. The results should be used in conjunction with clinical conditions of myocardial infarction. (Access High Sensitivity Troponin I Instructions For Use, Carla Love, October 2017) Performed By: #### 1 [id number] #### [facility] [address] [place] [address] UA with Cult Rflxon 03-06-20 24 Bilirubin Ql (U) Negative Normal Negative [facility] Comment on above: Performed By: #### 4 [id number] #### [facility] [address] [place] [address] Clarity (U) Clear Normal Clear [facility] Comment on above: Performed By: #### 4 [id number] #### [facility] [address] [place] [address] Color (U) Yellow Normal Yellow [facility] Comment on above: Result Comment: Micr oscopic readings are only performed on those samples that meet specific criteria set forth by [facility]. Performed By: #### 4 [id number] #### [facility] [address] [place] [address] Epithelial cells.squamous Auto (Urine sed) [#/Area] 3-4 Invalid Interpretation Code [facility] Comment on above: Performed By: #### 4 [id number] #### [facility] [address] [place] [address] Glucose Ql (U) Negative Normal Negative [facility] Comment on above: Performed By: #### 4 [id number] #### [facility] [address] [place] [address] Hemoglobin Auto test strip (U) [Mass/Vol] Negative Normal Negative [facility] Comment on above: Performed By: #### 4 [id number] #### [facility] [address] [place] [address] Ketones Auto test strip Ql (U) Negative Normal Negative [facility] Comment on above: Performed By: #### 4 [id number] #### [facility] [address] [place] [address] Leukocyte esterase Auto test strip Ql (U) 250 Mohit/uL Abnormal Negative [facility] Comment on above: Performed By: #### 4 [id number] #### [facility] [address] [place] [address] Mucus Auto Ql (U) Trace Normal Negative [facility] Comment on above: Performed By: #### 4 [id number] #### [facility] [address] [place] [address] Nitrite Auto test strip Ql (U) Negative Normal Negative [facility] Comment on above: Performed By: #### 4 [id number] #### [facility] [address] [place] [address] pH (U) 5.5 [pH] Invalid Interpretation Code 5.0-9.0 [facility] Comment on above: Performed By: #### 4 [id number] #### [facility] [address] [place] [address] Protein Ql (U) Negative Normal Negative [facility] Comment on above: Performed By: #### 4 [id number] #### [facility] [address] [place] [address] RBC Ql (U) 0-3 Normal 0-3 [facility] Comment on above: Performed By: #### 4 [id number] #### [facility] [address] [place] [address] Specific gravity (U) [Rel density] 1.019 Invalid Interpretation Code 1.005-1.03 0 [facility] Comment on above: Performed By: #### 4 [id number] #### [facility] [address] [place] [address] Urobilinogen (U) [Mass/Vol] Negative Normal Negative [facility] Comment on above: Performed By: #### 4 [id number] #### [facility] [address] [place] [address] WBC Auto (Urine sed) [#/Area] 6-15 Abnormal 0-5 [facility] Comment on above: Performed By: #### 4 [id number] #### [facility] [address] [place] [address] Type of Urine collection method Clean Catch Normal [facility] Comment on above: Performed By: #### 4 [id number] #### [facility] [address] [place] [address] URINALYSISOrdered By: SYSTEM SYSTEM on 03-06-2024 Bilirubin Ql (U) Negative Normal Negativemg /dL [facility] UA Auto SS Clarity (U) Clear (03/06/24 7:55 PM) Normal Clear [facility] UA Auto SS Color (U) Yellow 1 (03/06/24 7:55 PM) Normal Yellow [facility] UA Auto SS Comment on above: Interpretive Data: M icroscopic readings are only performed on those samples that meet specific criteria set forth by [facility]. Epithelial cells.squamous Auto (Urine sed) [#/Area] [...] 6-15 graded/HPF Invalid Interpretation Code 0-5graded/ HPF [facility] UA Auto SS URINALYSISOrdered By: Julio Escalante on 03-06-2024 UA Spec Desc Clean Catch (03/06/24 7:55 PM) Normal [facility] UA Auto SS Work Phone: XR Chest [...] mGy = na DAP = na Normal [facility] eGFRon 03-06-2024 eGFR 49 mL/min/1.73 m2 Low >=59 [facility] Comment on above: Performed By: #### 1 [id number] #### [facility] [address] [place] [address] Urine Cultureon 02-17-2024 Bacteria identified Cx Nom (U) ORGANISM: Pseudomonas aeruginosa (O:PSEAER) [place] Count <10,000 Aerobic TONY Charge (NMIC56) SUSCEPTIBILITY [...] RESISTANT TO ALL B-LACTAM DRUGS. PERFORMED BY: [place] [address] PATHOLOGIST FLOORHAND SUSANNE Bautista [facility] Comment on above: Performed By: #### C UU #### [address] Basophils Auto (Bld) [#/Vol] on 02-05-2024 Basophils (Bld) [#/Vol] Automated basophil count 0.0-0.1 [facility] Basophils/100 WBC Auto (Bld) on 02-05-2024 Basophils/100 WBC (Bld) Automated basophil % 0. 2-2.0 [facility] Eosinophils/100 WBC Auto (Bl d)on 02-05-2024 Eosinophils/100 WBC (Bld) Automated eosinophil % 0.9-7.0 [facility] Erythrocyte distribution wid th Auto (RBC) [Ratio]on 02-05-2024 Erythrocyte distribution width (RBC) [Ratio] Erythrocyte distribution width [Ratio] by Automated count 11.0-15.0 [facility] Estimated glomerular filtrat ion rate (GFR) non- Americanon 02-05-2024 GFR/1.73 sq M.predicted among non-blacks MDRD (S/P/Bld) [Vol rate/Area] Estimated glomerular filtration rate (GFR) non- Low >=60 mL/min/1.7 3m 2 [facility] Hematocrit Auto (Bld) [Volum e fraction]on 02-05-2024 Hematocrit (Bld) [Volume fraction] Hematocrit [Volume Fraction] of Blood by Automated count 36.0-48.0 [facility] Hemoglobin [Mass/volume] in Bloodon 02-05-2024 Hemoglobin (Bld) [Mass/Vol] Hemoglobin [Mass/volume] in Blood 12.0-16.0 [facility] - Chemistry and C hemistry - challengeon 02-05-2024 Calcium [Mass/Vol] 9.5 mg/dL 8.5-10.1 [facility] Chloride [Moles/Vol] 95 mmol/L Low 98-107 [facility] CO2 [Moles/Vol] 26.7 mmol/L 21.0-32.0 [facility] Creatinine [Mass/Vol] 1.30 mg/dL High 0.55-1.[address] [facility] GFR/1.73 sq M.predicted MDRD (S/P/Bld) [Vol rate/Area] 47 mL/min/{1.73_m2} Low >=60 mL/min/1.7 3m 2 [facility] Glucose [Mass/Vol] 115 mg/dL High 74-106 [facility] Potassium [Moles/Vol] 4.1 mmol/L 3.5-5.[address] [facility] Sodium [Moles/Vol] 132 mmol/L Low 136-145 [facility] Urea nitrogen [Mass/Vol] 14.0 mg/dL 7.0-18.0 [facility] Urea nitrogen/Creatinine [Mass ratio] 10.8 mg/mg [facility] - Hematology and Cell countson 02-05-2024 Immature granulocytes/100 WBC (Bld) 0.1 % 0.0-0.5 [facility] Leukocytes [#/volume] correc chacho for nucleated erythrocytes in Blood by Automated counon 02-05-2024 WBC corrected for nucl RBC Auto (Bld) [#/Vol] Leukocytes [#/volume] corrected for nucleated erythrocytes in Blood by Automated coun 4.0-11.0 [facility] Lymphocytes Auto (Bld) [#/Vo l]on 02-05-2024 Lymphocytes (Bld) [#/Vol] Lymphocytes [#/volume] in Blood by Automated count 1.2-3.8 [facility] Lymphocytes/100 WBC Auto (Bl d)on 02-05-2024 Lymphocytes/100 WBC (Bld) Lymphocytes/100 leukocytes in Blood by Automated count 20.5-60.0 [facility] MCH Auto (RBC) [Entitic mass ]on 02-05-2024 MCH (RBC) [Entitic mass] MCH [Entitic mass] by Automated count 26.7-34.0 [facility] MCHC Auto (RBC) [Mass/Vol]on 02-05-2024 MCHC (RBC) [Mass/Vol] MCHC [Mass/volume] by Automated count 29.9-35.2 [facility] MCV Auto (RBC) [Entitic vol] on 02-05-2024 MCV (RBC) [Entitic vol] MCV [Entitic vol ume] by Automated count 81.0-99.0 [facility] Monocytes Auto (Bld) [#/Vol] on 02-05-2024 Monocytes (Bld) [#/Vol] Automated blood monocyte count 0.3-0.8 [facility] Monocytes/100 WBC Auto (Bld) on 02-05-2024 Monocytes/100 WBC (Bld) Automated monocyte % 1. 7-12.0 [facility] Neutrophils Auto (Bld) [#/Vo l]on 02-05-2024 Neutrophils (Bld) [#/Vol] Neutrophils [#/volume] in Blood by Automated count 1.4-6.5 [facility] Neutrophils/100 WBC Auto (Bl d)on 02-05-2024 Neutrophils/100 WBC (Bld) Automated neutrophil % 43.0-75.0 [facility] No Panel Informationon 02-04 Eosinophils # (Auto) 0.1 10 3/uL 0.0-0.[address] [facility] Immature Granulocyte # (Auto) 0.01 10 3/uL 0.00-0.03 [facility] Platelet mean volume Auto (B ld) [Entitic vol]on 02-05-2024 Platelet mean volume (Bld) [Entitic vol] Platelet mean volume [Entitic volume] in Blood by Automated count Low 9.5-13.5 [facility] Platelets Auto (Bld) [#/Vol] on 02-05-2024 Platelets (Bld) [#/Vol] Platelets [#/vol ume] in Blood by Automated count 150-450 [facility] RBC Auto (Bld) [#/Vol]on RBC (Bld) [#/Vol] Erythrocytes [#/volu me] in Blood by Automated count 4.20-5.40 [facility] Serum or plasma anion gap de terminationon 02-05-2024 Anion gap [Moles/Vol] Serum or plasma an ion gap determination [facility] Automated epithelial cells c ount in urine sediment (number/area)on 07-27-2023 Epithelial cells Auto (Urine sed) [#/Area] RARE #/LPF NONE/RARE [facility] Automated leukocytes count i n urine sediment (number/area)on 07-27-2023 WBC Auto (Urine sed) [#/Area] NONE SEEN #/HPF 0-2 [facility] Automated urine specific gra vity by refractometryon 07-27-2023 Specific gravity Refractometry automated (U) [Rel density] 1.015 1.005-1.02 5 [facility] Bilirubin Auto test strip (U ) [Mass/Vol]on 07-27-2023 Bilirubin (U) [Mass/Vol] Negative NEGATIVE [facility] Casts typing in urine sedime nt by light microscopyon 07-27-2023 Casts LM Nom (Urine sed) NONE SEEN #/LPF NONE SEEN [facility] Color Auto (U)on 07-27-2023 Color (U) LT. YELLOW YELLOW [facility] Erythrocyte distribution wid th Auto (RBC) [Ratio]on 07-27-2023 Erythrocyte distribution width (RBC) [Ratio] 12.6 % 11.0-15.0 [facility] Estimated glomerular filtrat ion rate (GFR) non- Americanon 07-27-2023 GFR/1.73 sq M.predicted among non-blacks MDRD (S/P/Bld) [Vol rate/Area] 46 mL/min/{1.73_m2} >=60 [facility] Hematocrit Auto (Bld) [Volum e fraction]on 07-27-2023 Hematocrit (Bld) [Volume fraction] 39.4 % 36.0-48.0 [facility] Hemoglobin [Mass/volume] in Bloodon 07-27-2023 Hemoglobin (Bld) [Mass/Vol] 13.5 g/dL 12.0-16.0 [facility] Ketones Auto test strip (U) [Mass/Vol]on 07-27-2023 Ketones (U) [Mass/Vol] Negative NEGATIVE [facility] - Chemistry and C hemistry - challengeon 07-27-2023 Albumin [Mass/Vol] 3.5 g/dL 3.4-5.0 [facility] Calcium [Mass/Vol] 9.3 mg/dL 8.5-10.1 [facility] Chloride [Moles/Vol] 96 mmol/L 98-107 [facility] CO2 [Moles/Vol] 28.4 mmol/L 21.0-32.0 [facility] Creatinine [Mass/Vol] 1.12 mg/dL 0.55-1.[address] [facility] GFR/1.73 sq M.predicted MDRD (S/P/Bld) [Vol rate/Area] 56 mL/min/{1.73_m2} >=60 [facility] Glucose [Mass/Vol] 95 mg/dL 74-106 [facility] Magnesium [Mass/Vol] 2.0 mg/dL 1.8-2.4 [facility] Potassium [Moles/Vol] 4.1 mmol/L 3.5-5.[address] [facility] Sodium [Moles/Vol] 131 mmol/L 136-145 [facility] Urate [Mass/Vol] 3.4 mg/dL 2.6-6.0 [facility] Urea nitrogen [Mass/Vol] 19.0 mg/dL 7.0-18.0 [facility] Urea nitrogen/Creatinine [Mass ratio] 17.0 mg/mg [facility] - Urinalysison Protein (U) [Mass/Vol] 9.6 mg/dL <=11.9 [facility] Leukocytes [#/volume] correc chacho for nucleated erythrocytes in Blood by Automated counon 07-27-2023 WBC corrected for nucl RBC Auto (Bld) [#/Vol] 5.8 10 3/uL 4.0-11.0 [facility] MCH Auto (RBC) [Entitic mass ]on 07-27-2023 MCH (RBC) [Entitic mass] 29.9 pg 26.7-34.0 [facility] MCHC Auto (RBC) [Mass/Vol]on 07-27-2023 MCHC (RBC) [Mass/Vol] 34.3 g/dL 29.9-35.2 [facility] MCV Auto (RBC) [Entitic vol] on 07-27-2023 MCV (RBC) [Entitic vol] 87.2 fL 81.0-99.0 [facility] Mucus LM Ql (Urine sed)on Mucus Ql (Urine sed) NONE SEEN NONE SEEN [facility] No Panel Informationon 07-26 Urine Random Creatinine 100.05 mg/dL 20.0 0-300. 00 [facility] 25-Hydroxy Vitamin D Total 61.8 ng/mL [facility] Comment on above: <20 ng/mL Vit D defi cient20-<30 ng/mL Vit D hlhyjkvfdrsm14-178 ng/mL Vit D sufficient>100 ng/mL Potential Toxicity Parathyroid Hormone (Intact) 16 pg/mL 15-65 [facility] Comment on above: Performed at: - [facility] [address] [id number] Director: Lux Adorno PhD, Phone: [phone] Phosphorus Level 3.5 mg/dL 2.6-4.7 [facility] Platelet mean volume Auto (B ld) [Entitic vol]on 07-27-2023 Platelet mean volume (Bld) [Entitic vol] 9.1 fL 9.5-13.5 [facility] Platelets Auto (Bld) [#/Vol] on 07-27-2023 Platelets (Bld) [#/Vol] 209 10 3/uL 150-450 [facility] Protein Auto test strip (U) [Mass/Vol]on 07-27-2023 Protein (U) [Mass/Vol] Negative NEG/TRACE [facility] RBC Auto (Bld) [#/Vol]on RBC (Bld) [#/Vol] 4.52 10 6/uL 4.20-5.40 [facility] Serum or plasma anion gap de terminationon 07-27-2023 Anion gap [Moles/Vol] 10.7 mmol/L [facility] Specific gravity Auto test s trip (U) [Rel density]on 07-27-2023 Specific gravity (U) [Rel density] CLEAR CLEAR [facility] Urine bacteria detection by automated methodon 07-27-2023 Bacteria Auto Ql (U) NONE SEEN #/HPF NONE SEEN [facility] Urine glucose measurement by test strip (mass/volume)on 07-27-2023 Glucose Test strip (U) [Mass/Vol] Negative NEGATIVE [facility] Urine hemoglobin detection b y automated test stripon 07-27-2023 Hemoglobin Auto test strip Ql (U) Negative NEGATIVE [facility] Urine nitrite detection by a utomated test stripon 07-27-2023 Nitrite Auto test strip Ql (U) SMALL NEGATIVE [facility] Nitrite Auto test strip Ql (U) Negative NEGATIVE [facility] Urine protein/creatinine rat ioon 07-27-2023 Protein/Creatinine (U) [Ratio] 0.10 [facility] Urine sediment crystal ident ification by light microscopyon 07-27-2023 Crystals LM Nom (Urine sed) None Seen #/HPF None Seen [facility] Urine sediment leukocyte cou nt by microscopy (number/high power field)on 07-27-2023 WBC LM.HPF (Urine sed) [#/Area] 2-5 #/HPF NONE SEEN [facility] Urobilinogen Auto test strip (U) [Mass/Vol]on 07-27-2023 Urobilinogen Qn (U) 1.0 {Carlos'U}/dL 0.2-1.0 [facility] pH Auto test strip (U)on pH (U) 7.0 [pH] 5.0-9.0 [facility] [facility] Cal[facility] [Mass/volume] in Ser um or PlasmaOrdered By: Elsa Amin on 01-29-2023 Calcium [Mass/Vol] 9.5 mg/dL 8.6-10.3 [facility] Carbon dioxide, total [Moles /volume] in Serum or PlasmaOrdered By: Elsa Amin on 01-29-2023 CO2 [Moles/Vol] 25.5 mmol/L 21.0-31.0 [facility] Chloride [Moles/volume] in S lorraine or PlasmaOrdered By: Elsa Amin on 01-29-2023 Chloride [Moles/Vol] 96 mmol/L 98-107 [facility] Creatinine [Mass/volume] in Serum or PlasmaOrdered By: Elsa Amin on 01-29-2023 Creatinine [Mass/Vol] 1.18 mg/dL 0.60-1.[address] [facility] Glucose [Mass/volume] in Ser um or PlasmaOrdered By: Elsa Amin on 01-29-2023 Glucose [Mass/Vol] 82 mg/dL 70-100 [facility] Comment on above: ADA recommended refe rence rangeRandom Glucose Reference Range is dependent on time and content of last meal. Glucose of more than 200 mg/dL in a nonstressed, ambulatory subject supports the diagnosis of Diabetes Mellitus. No Panel InformationOrdered By: Elsa Amin on 01-29-2023 Estimated GFR (CKD-EPI) 45.829 mL/Min [facility] Creatinine Clearance (Chem 31.19 [facility] Potassium [Moles/volume] in Serum or PlasmaOrdered By: Elsa Amin on 01-29-2023 Potassium [Moles/Vol] 4.0 mmol/L 3.5-5.[address] [facility] Serum or plasma anion gap de terminationOrdered By: Elsa Amin on 01-29-2023 Anion gap [Moles/Vol] 12.5 mmol/L 6.0-15.0 [facility] Sodium [Moles/volume] in Ser um or PlasmaOrdered By: Elsa Amin on 01-29-2023 Sodium [Moles/Vol] 130 mmol/L 136-145 [facility] Urea nitrogen [Mass/volume] in Serum or PlasmaOrdered By: Elsa Amin on 01-29-2023 Urea nitrogen [Mass/Vol] 24 mg/dL 7- [facility] Activated partial thrombopla stin time (aPTT) in platelet poor plasma by coagulation aOrdered By: Willie Lyon on 01-27-2023 aPTT Coag (PPP) [Time] 31.7 s 25.1-36.5 [facility] Comment on above: A hematocrit value g reater than 55% may lead to inaccurate results in coagulation testing. Patients having hematocrit values >55% require a special collection tube for coagulation studies. Please contact the laboratory at [phone] for redraw instructions. Alanine aminotransferase [En zymatic activity/volume] in Serum or PlasmaOrdered By: Willie Lyon on 01-27-2023 ALT [Catalytic activity/Vol] 9 U/L 7-52 [facility] Albumin [Mass/volume] in Ser um or Plasma by Bromocresol green (BCG) dye binding methoOrdered By: Willie Lyon on 01-27-2023 Albumin BCG dye [Mass/Vol] 4.0 g/dL 3.5-5.7 [facility] Alkaline phosphatase [Enzyma tic activity/volume] in Serum or PlasmaOrdered By: Willie Lyon on 01-27-2023 ALP [Catalytic activity/Vol] 46 U/L 34-104 [facility] Aspartate aminotransferase [ Enzymatic activity/volume] in Serum or PlasmaOrdered By: Willie Lyon on 01-27-2023 AST [Catalytic activity/Vol] 19 U/L 13-39 [facility] Basophils Auto (Bld) [#/Vol] Ordered By: Willie Lyon on 01-27-2023 Basophils (Bld) [#/Vol] 0.1 10*3/uL 0.0-0.2 [facility] Basophils/100 WBC Auto (Bld) Ordered By: Willie Lyon on 01-27-2023 Basophils/100 WBC (Bld) 1.0 % . [facility] Bilirubin.total [Mass/volume ] in Serum or PlasmaOrdered By: Willie Lyon on 01-27-2023 Bilirubin [Mass/Vol] 0.7 mg/dL 0.3-1.0 [facility] Calcium [Mass/volume] in Ser um or PlasmaOrdered By: Willie Lyon on 01-27-2023 Calcium [Mass/Vol] 9.8 mg/dL 8.6-10.3 [facility] Carbon dioxide, total [Moles /volume] in Serum or PlasmaOrdered By: Willie Lyon on 01-27-2023 CO2 [Moles/Vol] 27.4 mmol/L 21.0-31.0 [facility] Chloride [Moles/volume] in S lorraine or PlasmaOrdered By: Willie Lyon on 01-27-2023 Chloride [Moles/Vol] 98 mmol/L 98-107 [facility] Creatine kinase [Enzymatic a ctivity/volume] in Serum or PlasmaOrdered By: Willie Lyon on 01-27-2023 CK [Catalytic activity/Vol] 52 U/L 30-223 [facility] Creatinine [Mass/volume] in Serum or PlasmaOrdered By: Willie Lyon on 01-27-2023 Creatinine [Mass/Vol] 1.45 mg/dL 0.60-1.[address] [facility] Eosinophils Auto (Bld) [#/Vo l]Ordered By: Willie Lyon on 01-27-2023 Eosinophils (Bld) [#/Vol] 0.1 10*3/uL 0.0-0.45 [facility] Eosinophils/100 WBC Auto (Bl d)Ordered By: Willie Lyon on 01-27-2023 Eosinophils/100 WBC (Bld) 1.7 % . [facility] Erythrocyte distribution wid th Auto (RBC) [Ratio]Ordered By: Willie Lyon on 01-27-2023 Erythrocyte distribution width (RBC) [Ratio] 13.7 % 11.9-15.3 [facility] Globulin Calc (S) [Mass/Vol] Ordered By: Willie Lyon on 01-27-2023 Globulin (S) [Mass/Vol] 2.9 g/dL [facility] Glucose [Mass/volume] in Ser um or PlasmaOrdered By: Willie Lyon on 01-27-2023 Glucose [Mass/Vol] 105 mg/dL 70-100 [facility] Comment on above: ADA recommended refe rence rangeRandom Glucose Reference Range is dependent on time and content of last meal. Glucose of more than 200 mg/dL in a nonstressed, ambulatory subject supports the diagnosis of Diabetes Mellitus. Hematocrit Auto (Bld) [Volum e fraction]Ordered By: Willie Lyon on 01-27-2023 Hematocrit (Bld) [Volume fraction] 41.4 % 34.0-46.4 [facility] Hemoglobin [Mass/volume] in BloodOrdered By: Willie Lyon on 01-27-2023 Hemoglobin (Bld) [Mass/Vol] 14.0 g/dL 11.8-15.4 [facility] INR in Platelet poor plasma by Coagulation assayOrdered By: Willie Lyon on 01-27-2023 INR Coag (PPP) [Relative time] 1.0 {INR} [facility] Comment on above: INR Therapeutic Rang [...] RBC Auto (Bld) [#/Vol] 6.9 10*3/uL 3.8-11.6 [facility] Lymphocytes Auto (Bld) [#/Vo l]Ordered By: Willie Lyon on 01-27-2023 Lymphocytes (Bld) [#/Vol] 1.6 10*3/uL 1.00-4.8 [facility] Lymphocytes/100 WBC Auto (Bl d)Ordered By: Willie Lyon on 01-27-2023 Lymphocytes/100 WBC (Bld) 23.7 % . [facility] MCH Auto (RBC) [Entitic mass ]Ordered By: Willie Lyon on 01-27-2023 MCH (RBC) [Entitic mass] 29.7 pg 24.7-34.3 [facility] MCHC Auto (RBC) [Mass/Vol]Or dered By: Willie Lyon on 01-27-2023 MCHC (RBC) [Mass/Vol] 33.9 g/dL 32.0-35.0 [facility] MCV Auto (RBC) [Entitic vol] Ordered By: Willie Lyon on 01-27-2023 MCV (RBC) [Entitic vol] 87.5 fL 80-100 [facility] Magnesium [Mass/volume] in S lorraine or PlasmaOrdered By: Willie Lyon on 01-27-2023 Magnesium [Mass/Vol] 2.0 mg/dL 1.9-2.7 [facility] Monocyte distribution width [Entitic volume] in Blood by AutomatedOrdered By: Willie Lyon on 01-27-2023 Monocyte distribution width Auto (Bld) [Entitic vol] 18.32 % 0.00-20.00 [facility] Monocytes Auto (Bld) [#/Vol] Ordered By: Willie Lyon on 01-27-2023 Monocytes (Bld) [#/Vol] 0.5 10*3/uL 0.0-0.8 [facility] Monocytes/100 WBC Auto (Bld) Ordered By: Willie Lyon on 01-27-2023 Monocytes/100 WBC (Bld) 7.4 % . [facility] Natriuretic peptide B [Mass/ Vol]Ordered By: Willie Lyon on 01-27-2023 Natriuretic peptide B (Bld) [Mass/Vol] 359.0 pg/mL 5-100 [facility] Neutrophils Auto (Bld) [#/Vo l]Ordered By: Willie Lyon on 01-27-2023 Neutrophils (Bld) [#/Vol] 4.6 10*3/uL 1.8-7.7 [facility] Neutrophils/100 WBC Auto (Bl d)Ordered By: Willie Lyon on 01-27-2023 Neutrophils/100 WBC (Bld) 66.2 % . [facility] No Panel InformationOrdered By: Willie Lyon on 01-27-2023 Estimated GFR (CKD-EPI) 35.790 mL/Min [facility] Creatinine Clearance (Chem 25.39 [facility] Nucleated erythrocytes [Pres ence] in Blood by Automated countOrdered By: Willie Lyon on 01-27-2023 Nucleated RBC Auto Ql (Bld) 0.1 /100{WBC} 0-0.5 [facility] Platelet mean volume Auto (B ld) [Entitic vol]Ordered By: Willie Lyon on 01-27-2023 Platelet mean volume (Bld) [Entitic vol] 7.7 fL 6.3-10.7 [facility] Platelets Auto (Bld) [#/Vol] Ordered By: Willie Lyon on 01-27-2023 Platelets (Bld) [#/Vol] 281 10*3/uL 150-450 [facility] Potassium [Moles/volume] in Serum or PlasmaOrdered By: Willie Lyon on 01-27-2023 Potassium [Moles/Vol] 4.6 mmol/L 3.5-5.[address] [facility] Protein [Mass/volume] in Ser um or PlasmaOrdered By: Willie Lyon on 01-27-2023 Protein [Mass/Vol] 6.9 g/dL 6.4-8.9 [facility] Prothrombin time (PT)Ordered By: Willie Lyon on 01-27-2023 PT Coag (PPP) [Time] 12.2 s 9.0-12.9 [facility] Comment on above: A hematocrit value g reater than 55% may lead to inaccurate results in coagulation testing. Patients having hematocrit values >55% require a special collection tube for coagulation studies. Please contact the laboratory at [phone] for redraw instructions. RBC Auto (Bld) [#/Vol]Ordere d By: Willie Lyon on 01-27-2023 RBC (Bld) [#/Vol] 4.73 10*6/uL 3.60-5.00 [facility] Serum or plasma albumin/glob ulin mass ratioOrdered By: Willie Lyon on 01-27-2023 Albumin/Globulin [Mass ratio] 1.4 {ratio} [facility] Serum or plasma anion gap de terminationOrdered By: Willie Lyon on 01-27-2023 Anion gap [Moles/Vol] 11.2 mmol/L 6.0-15.0 [facility] Sodium [Moles/volume] in Ser um or PlasmaOrdered By: Willie Lyon on 01-27-2023 Sodium [Moles/Vol] 132 mmol/L 136-145 [facility] Thyrotropin [Units/volume] i n Serum or PlasmaOrdered By: Willie Lyon on 01-27-2023 TSH Qn 0.18 m[IU]/L 0.45-5.33 [facility] Troponin I.cardiac [Mass/vol ume] in Serum or Plasma by Detection limit <= 0.01 ng/Ordered By: Elsa Amin on 01-27-2023 Troponin I.cardiac DL <= 0.01 ng/mL [Mass/Vol] 29.5 pg/mL 0.0-15.0 [facility] Troponin I.cardiac [Mass/vol ume] in Serum or Plasma by Detection limit <= 0.01 ng/Ordered By: Willie Lyon on 01-27-2023 Troponin I.cardiac DL <= 0.01 ng/mL [Mass/Vol] 47.3 pg/mL 0.0-15.0 [facility] Urea nitrogen [Mass/volume] in Serum or PlasmaOrdered By: Willie Lyon on 01-27-2023 Urea nitrogen [Mass/Vol] 30 mg/dL 7-25 [facility] WBC Auto (Bld) [#/Vol]Ordere d By: Willie Lyon on 01-27-2023 WBC (Bld) [#/Vol] 6.9 10*3/uL 3.8-11.6 [facility] PTH INTACTon 06-04-2022 PTH, Intact 10 pg/mL Critically low 15-65 [facility] Comment on above: Performed By: #### P THINT #### [facility] [address] [place] [address] Dr. Dario Gil FREE T4on 06-03-2022 Free T4 [Mass/Vol] 1.03 ng/dL Normal 0.76-1.46 [facility] Comment on above: Performed By: #### H H #### [facility] [address] [place] [address] Dr. Dario Gil HEMOGRAM AND PLATELon 2022 Hematocrit (Bld) [Volume fraction] 39.9 % Normal 36.0-48.0 [facility] Comment on above: Performed By: #### H H #### [facility] [address] [place] [address] Dr. Dario Gil Hemoglobin (Bld) [Mass/Vol] 13.9 g/dL Normal 12.0-16.0 [facility] Comment on above: Performed By: #### H H #### [facility] [address] [place] [address] Dr. Dario Gil MCH (RBC) [Entitic mass] 30.6 pg Normal 26.7-34.0 [facility] Comment on above: Performed By: #### H H #### [facility] [address] [place] [address] Dr. Dario Gil MCHC (RBC) [Mass/Vol] 34.8 g/dL Normal 29.9-35.2 [facility] Comment on above: Performed By: #### H H #### [facility] [address] [place] [address] Dr. Dario Gil MCV (RBC) [Entitic vol] 87.9 fL Normal 81.0-99.0 [facility] Comment on above: Performed By: #### H H #### [facility] [address] [place] [address] Dr. Dario Gil PLT 232 103/ul Normal 150-450 [facility] Comment on above: Performed By: #### H H #### [facility] [address] [place] [address] Dr. Dario Gil RBC 4.54 106/ul Normal 4.20-5.40 [facility] Comment on above: Performed By: #### H H #### [facility] [address] [place] [address] Dr. Dario Gil WBC 5.8 103/ul Normal 4.0-11.0 [facility] Comment on above: Performed By: #### H H #### [facility] [address] [place] [address] Dr. Dario Gil MAGNESIUMon 06-03-2022 Magnesium [Mass/Vol] 1.8 mg/dL Normal 1.8-2.4 [facility] Comment on above: Performed By: #### M G, URIC, RENAL #### [facility] [address] [address] [address] Dario Gil RENAL FUNCTION PANELon 06-03 Albumin [Mass/Vol] 4.0 g/dL Normal 3.4-5.0 [facility] Comment on above: Performed By: #### M G, URIC, RENAL #### [facility] [address] [address] [address] Dario Gil Calcium [Mass/Vol] 9.7 mg/dL Normal 8.5-10.1 [facility] Comment on above: Performed By: #### M G, URIC, RENAL #### [facility] [address] [address] [address] Dario Gil Chloride [Moles/Vol] 98 mmol/L Normal 98-107 [facility] Comment on above: Performed By: #### M G, URIC, RENAL #### [facility] [address] [place] [address] Dr. Dario Gil CO2 [Moles/Vol] 29.6 mmol/L Normal 21.0-32.0 [facility] Comment on above: Performed By: #### M G, URIC, RENAL #### [facility] [address] [address] [address] Dario Gil Creatinine [Mass/Vol] 1.37 mg/dL Critically high 0.55-1.02 [facility] Comment on above: Performed By: #### M G, URIC, RENAL #### [facility] [address] [place] [address] Dr. Dario Gil EGFR-AF FRENCH 45 mL/min/1.73m2 Critically low >=60 [facility] Comment on above: Performed By: #### M G, URIC, RENAL #### [facility] [address] [place] [address] Dr. Dario Gil EGFR-NON AF FRENCH 37 mL/min/1.73m2 Critically low >=60 [facility] Comment on above: Performed By: #### M G, URIC, RENAL #### [facility] [address] [address] [address] Dario Gil Glucose [Mass/Vol] 99 mg/dL Normal 74-106 [facility] Comment on above: Performed By: #### M G, URIC, RENAL #### [facility] [address] [place] [address] Dr. Dario Gil Phosphate [Mass/Vol] 3.5 mg/dL Normal 2.6-4.7 [facility] Comment on above: Performed By: #### M G, URIC, RENAL #### [facility] [address] [place] [address] Dr. Dario Gil Potassium [Moles/Vol] 4.5 mmol/L Normal 3.5-5.1 [facility] Comment on above: Performed By: #### M G, URIC, RENAL #### [facility] [address] [place] [address] Dr. Dario Gil Sodium [Moles/Vol] 134 mmol/L Critically low 136-145 [facility] Comment on above: Performed By: #### M G, URIC, RENAL #### [facility] [address] [place] [address] Dr. Dario Gil Urea nitrogen [Mass/Vol] 26.0 mg/dL Critically high 7.0-18.0 [facility] Comment on above: Performed By: #### M G, URIC, RENAL #### [facility] [address] [place] [address] Dr. Dario Gil TSHon 06-03-2022 TSH 8.041 uIU/mL Critically high 0.358-3.74 0 [facility] Comment on above: Performed By: #### T SH #### [facility] [address] [place] [address] Dr. Dario Gil UA RANDOM W/MICROSCOPICon BACTERIA NONE SEEN Normal NONE SEEN [facility] Comment on above: Performed By: #### H H #### [facility] [address] [place] [address] Dr. Dario Gil Bilirubin Ql (U) Negative Normal NEGATIVE [facility] Comment on above: Performed By: #### H H #### [facility] [address] [place] [address] Dr. Dario Gil CAST NONE SEEN Normal NONE SEEN [facility] Comment on above: Performed By: #### H H #### [facility] [address] [place] [address] Dr. Dario Gil Clarity (U) CLEAR Normal CLEAR [facility] Comment on above: Performed By: #### H H #### [facility] [address] [place] [address] Dr. Dario Gil Color (U) LT. YELLOW Normal YELLOW [facility] Comment on above: Performed By: #### H H #### [facility] [address] [place] [address] Dr. Dario Gil Crystals LM Nom (Urine sed) NONE SEEN Normal NONE SEEN [facility] Comment on above: Performed By: #### H H #### [facility] [address] [place] [address] Dr. Dario Gil Epithelial cells LM Ql (Urine sed) FEW Abnormal NONE SEEN /RARE [facility] Comment on above: Performed By: #### H H #### [facility] [address] [place] [address] Dr. Dario Gil Glucose Ql (U) Negative Normal NEGATIVE [facility] Comment on above: Performed By: #### H H #### [facility] [address] [place] [address] Dr. Dario Gil Hemoglobin Ql (U) Negative Normal NEGATIVE [facility] Comment on above: Performed By: #### H H #### [facility] [address] [place] [address] Dr. Dario Gil Ketones Ql (U) Negative Normal NEGATIVE [facility] Comment on above: Performed By: #### H H #### [facility] [address] [place] [address] Dr. Dario Gil LEUKOCYTES TRACE Abnormal NEGATIVE [facility] Comment on above: Performed By: #### H H #### [facility] [address] [place] [address] Dr. Dario Gil MUCOUS NONE SEEN Normal NONE SEEN [facility] Comment on above: Performed By: #### H H #### [facility] [address] [place] [address] Dr. Dario Gil Nitrite Ql (U) Negative Normal NEGATIVE [facility] Comment on above: Performed By: #### H H #### [facility] [address] [place] [address] Dr. Dario Gil pH (U) 5.5 [pH] Normal 5-9 [facility] Comment on above: Performed By: #### H H #### [facility] [address] [place] [address] Dr. Dario Gil RBC 0-2 Normal 0-2 [facility] Comment on above: Performed By: #### H H #### [facility] [address] [place] [address] Dr. Dario Gil SPEC GRAVITY 1.010 Normal 1.005-<=1. 025 [facility] Comment on above: Performed By: #### H H #### [facility] [address] [place] [address] Dr. Dario Gil UA PROTEIN Negative Normal NEGATIVE/ TRACE [facility] Comment on above: Performed By: #### H H #### [facility] [address] [place] [address] Dr. Dario Gil Urobilinogen Qn (U) 0.2 {Carlos'U}/dL Normal 0.2 - 1. 0 [facility] Comment on above: Performed By: #### H H #### [facility] [address] [place] [address] Dr. Dario Gil WBC 0-2 Abnormal NONE SEEN [facility] Comment on above: Performed By: #### H H #### [facility] [address] [place] [address] Dr. Dario Gil URIC ACID SERUMon 06-03-2022 Urate [Mass/Vol] 5.1 mg/dL Normal 2.6-6.0 [facility] Comment on above: Performed By: #### M G, URIC, RENAL #### [facility] [address] [place] [address] Dr. Dario Gil URINE T PROTEIN CREAT RATIOo n 06-03-2022 Protein (U) [Mass/Vol] 5.5 mg/dL Normal <=12.0 [facility] Comment on above: Performed By: #### H H #### [facility] [address] [place] [address] Dr. Dario Gil UR PROT CREAT RAT 0.07 Normal [facility] Comment on above: Performed By: #### H H #### [facility] [address] [place] [address] Dr. Dario Gil URINE CREAT 77.51 mg/dL Normal 20.00-300. 00 [facility] Comment on above: Performed By: #### H H #### [facility] [address] [place] [address] Dr. Dario Gil VITAMIN D 25 OHon 06-03-2022 VIT D 25-OH 58.1 ng/mL Normal [facility] Comment on above: Performed By: #### H H #### [facility] [address] [place] [address] Dr. Dario Gil VIT D RANGES SEE BELOW Normal [facility] Comment on above: Result Comment: <20 ng/mL Vit D deficient 20 - <30 ng/mL Vit D insufficient 30 - 100 ng/mL Vit D sufficient >100 ng/mL Potential Toxicity Performed By: #### H H #### [facility] [address] [place] [address] Dr. Dario Gil Office Visit (Cardiology)on 03-18-2022 [...] MOUTH TWICE A DAY NEEDED Allergies Medication [id number] Adverse Reaction; Shortness of breath;; Recorded [...] and no PND. Vitals Vital Signs Recorded: [id number] 11:35AMRecorded: [id number] 11:23AM [id number], [id number], LUE, Sitting [id number], Mokhuqjk05, LUE, Sitting Heart Rate60, L Radial Height5 ft 4 in Abrsmq846 lb BMI Dwypheahkf69.2 kg/m2 BSA Calculated1.69 Tobacco Useb) No Falls [...] and affect . Signatures Adrien Avalos MSN, DIRECTOR OF DISTRIBUTION-CUSTOM BOW MAKER, PMHNP-BC [facility] Please excuse any errors in grammar or translation related to this dictation. Voice recognition software was utilized to prepare this document. Electronically (more content not included)... Normal [employer] Tobacco Screening.on 022 Fall risk assessment a) [facility] within the last year [facility] Work Phone: Tobacco use status [facility] b) No [facility] 250 DO Work Phone: PROF CHEM 8 (BAS METB)on Anion gap [Moles/Vol] 5.7 mmol/L Normal [facility] Comment on above: Performed By: #### H H #### [facility] [address] [address] [address] Dario Gil Calcium [Mass/Vol] 9.3 mg/dL Normal 8.5-10.1 [facility] Comment on above: Performed By: #### H H #### [facility] [address] [address] [address] Dario Gil Chloride [Moles/Vol] 97 mmol/L Critically low 98-107 [facility] Comment on above: Performed By: #### H H #### [facility] [address] [address] [address] Dario Gil CO2 [Moles/Vol] 31.9 mmol/L Normal 21.0-32.0 [facility] Comment on above: Performed By: #### H H #### [facility] [address] [address] [address] Dario Gil Creatinine [Mass/Vol] 1.34 mg/dL Critically high 0.55-1.02 [facility] Comment on above: Performed By: #### H H #### [facility] [address] [address] [address] Dario Gil EGFR-AF FRENCH 46 mL/min/1.73m2 Critically low >=60 [facility] Comment on above: Performed By: #### H H #### [facility] [address] [address] [address] Dario Gil EGFR-NON AF FRENCH 38 mL/min/1.73m2 Critically low >=60 [facility] Comment on above: Performed By: #### H H #### [facility] [address] [address] [address] Dario Gil Glucose [Mass/Vol] 92 mg/dL Normal 74-106 [facility] Comment on above: Performed By: #### H H #### [facility] [address] [address] [address] Dario Gil Potassium [Moles/Vol] 4.6 mmol/L Normal 3.5-5.1 [facility] Comment on above: Performed By: #### H H #### [facility] [address] [address] [address] Dario Gil Sodium [Moles/Vol] 130 mmol/L Critically low 136-145 [facility] Comment on above: Performed By: #### H H #### [facility] [address] [address] [address] Dario Gil Urea nitrogen [Mass/Vol] 28.0 mg/dL Critically high 7.0-18.0 [facility] Comment on above: Performed By: #### H H #### [facility] [address] [address] [address] Dario Gil Urea nitrogen/Creatinine [Mass ratio] 20.9 mg/mg Normal [facility] Comment on above: Performed By: #### H H #### [facility] [address] [place] [address] Dr. Dario Gil Office Visit (Cardiology)on 01-15-2022 [...] MOUTH TWICE A DAY NEEDED Allergies Medication Smnhsmia-YDP-[id number] PTWK Adverse Reaction; Shortness of breath;; Recorded [...] JANELLE BURT; : 1940; Recorded: 15Jan2022 11:16AMRecorded: [id number] 10:55AMRecorded: [id number] 10:48AM [id number], LUE, [id number], RUE, Sitting [id number], LUE, [id number], RUE, Sitting Heart Rate60, R Radial Height5 ft 4 in Gopzxj399 lb BMI Jzoycuohfl67.34 (more content not included)... Normal [employer] Tobacco Screening.on 022 Adult depression screening assessment No [facility] [employer] 250 DO Work Phone: Fall risk assessment a) No falls within the last year [facility] [employer] 250 DO Work Phone: Tobacco use status CPHS b) No [facility] [employer] 250 DO Work Phone: PTH INTACTon 12-05-2021 PTH, Intact 14 pg/mL Critically low 15-65 [facility] Comment on above: Performed By: #### P THINT #### [facility] [address] [address] [address] Dario Gil VIT D 25-OH LABCORPon 2021 Vitamin D, 25-Hydroxy 22.8 ng/mL Critically low 30.0-100.0 [facility] Comment on above: Result Comment: Eliza min D deficiency has been defined by the [place] of [employer] and an Endocrine Society practice guideline as a level of serum 25-OH vitamin D less than 20 ng/mL (1,2). The Endocrine Society went on to further define vitamin D insufficiency as a level between 21 and 29 ng/mL (2). 1. IOM ([place] of Medicine). 2010. Dietary reference intakes for calcium and D. [place]: The National Academies Press. 2. Mark WEEMS, Dustin [place], Coni WARD, et al. Evaluation, treatment, and prevention of vitamin D deficiency: an Endocrine Society clinical practice guideline. JCEM. 2010; 96(7):1911-30. Performed By: #### V ITADLC #### [facility] [address] [place] [address] Dr. Dario Gil HEMOGRAM AND PLATELon 2021 Hematocrit (Bld) [Volume fraction] 44.0 % Normal 36.0-48.0 [facility] Comment on above: Performed By: #### H H #### [facility] [address] [address] [address] Dario Gil Hemoglobin (Bld) [Mass/Vol] 14.9 g/dL Normal 12.0-16.0 [facility] Comment on above: Performed By: #### H H #### [facility] [address] [place] [address] Dr. Dario Gil MCH (RBC) [Entitic mass] 29.7 pg Normal 26.7-34.0 [facility] Comment on above: Performed By: #### H H #### [facility] [address] [place] [address] Dr. Dario Gil MCHC (RBC) [Mass/Vol] 33.9 g/dL Normal 29.9-35.2 [facility] Comment on above: Performed By: #### H H #### [facility] [address] [place] [address] Dr. Dario Gil MCV (RBC) [Entitic vol] 87.8 fL Normal 81.0-99.0 [facility] Comment on above: Performed By: #### H H #### [facility] [address] [place] [address] Dr. Dario Gil PLT 245 103/ul Normal 150-450 [facility] Comment on above: Performed By: #### H H #### [facility] [address] [place] [address] Dr. Dario Gil RBC 5.01 106/ul Normal 4.20-5.40 [facility] Comment on above: Performed By: #### H H #### [facility] [address] [place] [address] Dr. Dario Gil WBC 5.8 103/ul Normal 4.0-11.0 [facility] Comment on above: Performed By: #### H H #### [facility] [address] [place] [address] Dr. Dario Gil MAGNESIUMon 12-04-2021 Magnesium [Mass/Vol] 1.9 mg/dL Normal 1.8-2.4 [facility] Comment on above: Performed By: #### H H #### [facility] [address] [place] [address] Dr. Dario Gil RENAL FUNCTION PANELon 12-04 Albumin [Mass/Vol] 3.9 g/dL Normal 3.4-5.0 [facility] Comment on above: Performed By: #### H H #### [facility] [address] [place] [address] Dr. Dario Gil Calcium [Mass/Vol] 9.4 mg/dL Normal 8.5-10.1 [facility] Comment on above: Performed By: #### H H #### [facility] [address] [place] [address] Dr. Dario Gil Chloride [Moles/Vol] 96 mmol/L Critically low 98-107 [facility] Comment on above: Performed By: #### H H #### [facility] [address] [place] [address] Dr. Dario Gil CO2 [Moles/Vol] 30.8 mmol/L Normal 21.0-32.0 [facility] Comment on above: Performed By: #### H H #### [facility] [address] [place] [address] Dr. Dario Gil Creatinine [Mass/Vol] 1.25 mg/dL Critically high 0.55-1.02 [facility] Comment on above: Performed By: #### H H #### [facility] [address] [place] [address] Dr. Dario Gil EGFR-AF FRENCH 50 mL/min/1.73m2 Critically low >=60 [facility] Comment on above: Performed By: #### H H #### [facility] [address] [place] [address] Dr. Dario Gil EGFR-NON AF FRENCH 41 mL/min/1.73m2 Critically low >=60 [facility] Comment on above: Performed By: #### H H #### [facility] [address] [place] [address] Dr. Dario Gil Glucose [Mass/Vol] 93 mg/dL Normal 74-106 [facility] Comment on above: Performed By: #### H H #### [facility] [address] [place] [address] Dr. Dario Gil Phosphate [Mass/Vol] 3.4 mg/dL Normal 2.6-4.7 [facility] Comment on above: Performed By: #### H H #### [facility] [address] [address] [address] Dario Gil Potassium [Moles/Vol] 4.2 mmol/L Normal 3.5-5.1 [facility] Comment on above: Performed By: #### H H #### [facility] [address] [place] [address] Dr. Dario Gil Sodium [Moles/Vol] 133 mmol/L Critically low 136-145 Th [facility] Comment on above: Performed By: #### H H #### [facility] [address] [place] [address] Dr. Dario Gil Urea nitrogen [Mass/Vol] 20.0 mg/dL Critically high 7.0-18.0 [facility] Comment on above: Performed By: #### H H #### [facility] [address] [place] [address] Dr. Dario Gil UA RANDOM W/MICROSCOPICon BACTERIA NONE SEEN Normal NONE SEEN [facility] Comment on above: Performed By: #### U AMIC #### [facility] [address] [place] [address] Dr. aDrio Gil Bilirubin Ql (U) Negative Normal NEGATIVE [facility] Comment on above: Performed By: #### U AMIC #### [facility] [address] [place] [address] Dr. Dario Gil CAST NONE SEEN Normal NONE SEEN [facility] Comment on above: Performed By: #### U AMIC #### [facility] [address] [place] [address] Dr. Dario Gil Clarity (U) CLEAR Normal CLEAR [facility] Comment on above: Performed By: #### U AMIC #### [facility] [address] [place] [address] Dr. Dario Gil Color (U) LT. YELLOW Normal YELLOW [facility] Comment on above: Performed By: #### U AMIC #### [facility] [address] [place] [address] Dr. Dario Gil Crystals LM Nom (Urine sed) NONE SEEN Normal NONE SEEN [facility] Comment on above: Performed By: #### U AMIC #### [facility] [address] [place] [address] Dr. Dario Gil Epithelial cells LM Ql (Urine sed) FEW Abnormal NONE SEEN /RARE [facility] Comment on above: Performed By: #### U AMIC #### [facility] [address] [place] [address] Dr. Dario Gil Glucose Ql (U) Negative Normal NEGATIVE [facility] Comment on above: Performed By: #### U AMIC #### [facility] [address] [address] [address] Dario Gil Hemoglobin Ql (U) Negative Normal NEGATIVE [facility] Comment on above: Performed By: #### U AMIC #### [facility] [address] [place] [address] Dr. Dario Gil Ketones Ql (U) Negative Normal NEGATIVE [facility] Comment on above: Performed By: #### U AMIC #### [facility] [address] [place] [address] Dr. Dario Gil LEUKOCYTES SMALL Abnormal NEGATIVE [facility] Comment on above: Performed By: #### U AMIC #### [facility] [address] [place] [address] Dr. Dario Gil MUCOUS NONE SEEN Normal NONE SEEN [facility] Comment on above: Performed By: #### U AMIC #### [facility] [address] [address] [address] Dario Gil Nitrite Ql (U) Negative Normal NEGATIVE [facility] Comment on above: Performed By: #### U AMIC #### [facility] [address] [address] [address] Dario Gil pH (U) 7.0 [pH] Normal 5-9 [facility] Comment on above: Performed By: #### U AMIC #### [facility] [address] [place] [address] Dr. Dario Gil RBC 0-2 Normal 0-2 [facility] Comment on above: Performed By: #### U AMIC #### [facility] [address] [place] [address] Dr. Dario Gil SPEC GRAVITY 1.010 Normal 1.005-<=1. 025 [facility] Comment on above: Performed By: #### U AMIC #### [facility] [address] [place] [address] Dr. Dario Gil UA PROTEIN Negative Normal NEGATIVE/ TRACE [facility] Comment on above: Performed By: #### U AMIC #### [facility] [address] [place] [address] Dr. Dario Gil Urobilinogen Qn (U) 0.2 {Carlos'U}/dL Normal 0.2 - 1. 0 [facility] Comment on above: Performed By: #### U AMIC #### [facility] [address] [place] [address] Dr. Dario Gil WBC 0-2 Abnormal NONE SEEN [facility] Comment on above: Performed By: #### U AMIC #### [facility] [address] [place] [address] Dr. Dario Gil URIC ACID SERUMon 12-04-2021 Urate [Mass/Vol] 5.3 mg/dL Normal 2.6-6.0 [facility] Comment on above: Performed By: #### H H #### [facility] [address] [place] [address] Dr. Dario Gil URINE T PROTEIN CREAT RATIOo n 12-04-2021 Protein (U) [Mass/Vol] 6.0 mg/dL Normal <=12.0 [facility] Comment on above: Performed By: #### H H #### [facility] [address] [place] [address] Dr. Dario Gil UR PROT CREAT RAT 0.06 Normal [facility] Comment on above: Performed By: #### H H #### [facility] [address] [place] [address] Dr. Dario Gil URINE CREAT 96.21 mg/dL Normal 20.00-300. 00 [facility] Comment on above: Performed By: #### H H #### [facility] [address] [address] [address] Dario Gil Tobacco Screening.on 021 Fall risk assessment a) No falls within the last year [facility] [employer] 250 DO Work Phone: Tobacco use status CPHS b) No [facility] [employer] 250 DO Work Phone: Vital Signs Date Time Vital Sign Value Performing Clinician Facility 03-07-2024 14:06-0500 Hourly Rounding XanEduer [facility] 03-07-2024 14:06-0500 Promise to Return XanEduer [facility] 03-07-2024 13:19-0500 Hourly Rounding XanEduer [facility] 03-07-2024 13:19-0500 Promise to Return IndianRootscker [facility] 03-07-2024 12:28-0500 Hourly Rounding Willie Caio [facility] 03-07-2024 12:28-0500 Promise to Return Willie Caio [facility] 03-07-2024 11:45-0500 Diastolic blood pressure 63 mm[Hg] Willie Caio [facility] 03-07-2024 11:45-0500 Heart rate 86 /min Willie Caio [facility] 03-07-2024 11:45-0500 Systolic blood pressure 149 mm[Hg] Willie Caio [facility] 03-07-2024 10:13-0500 Heart rate 86 /min Willie Caio [facility] 03-07-2024 10:13-0500 SaO2% (BldA) [Mass fraction] 96 % Willie Kearney [facility] 03-07-2024 10:12-0500 Diastolic blood pressure 63 mm[Hg] Willie Kearney [facility] 03-07-2024 10:12-0500 Mean blood pressure 92 mm[Hg] Willie Kearney [facility] 03-07-2024 10:12-0500 Systolic blood pressure 149 mm[Hg] Willie Kearney [facility] 03-07-2024 10:12-0500 Body temperature 98.06 [degF] Willie Kearney [facility] 03-07-2024 07:22-0500 Heart rate 87 /min Willie Kearney [facility] 03-07-2024 07:22-0500 SaO2% (BldA) [Mass fraction] 97 % Willie Kearney [facility] 03-07-2024 07:21-0500 Diastolic blood pressure 67 mm[Hg] Willie Kearney [facility] 03-07-2024 07:21-0500 Mean blood pressure 102 mm[Hg] Willie Kearney [facility] 03-07-2024 07:21-0500 Systolic blood pressure 173 mm[Hg] Willie Fatimaer [facility] 03-07-2024 07:19-0500 Body temperature 98.24 [degF] Willie Kearney [facility] 03-07-2024 04:00-0500 Blood Pressure Location Willie Kearney [facility] 03-07-2024 04:00-0500 Body temperature 98.78 [degF] Willie Kearney [facility] 03-07-2024 04:00-0500 Heart rate 85 /min Willie Kearney [facility] 03-07-2024 04:00-0500 Mean blood pressure 105 mm[Hg] Willie Kearney [facility] 03-07-2024 04:00-0500 Respiratory rate 18 /min Willie Kearney [facility] 03-07-2024 01:00-0500 Heart rate 70 /min Willie Kearney [facility] 03-07-2024 01:00-0500 Mean blood pressure 99 mm[Hg] Willie Kearney [facility] 03-07-2024 01:00-0500 Respiratory rate 18 /min Willie Kearney [facility] 03-07-2024 00:00-0500 Body temperature 98.6 [degF] Willie Kearney [facility] 03-06-2024 21:25-0500 Blood Pressure Location Willie Kearney [facility] 03-06-2024 21:25-0500 Body temperature 98.24 [degF] Willie Kearney [facility] 03-06-2024 20:38-0500 Mean blood pressure 111 mm[Hg] Willie Kearney [facility] 03-06-2024 20:38-0500 Body temperature 98.24 [degF] Willie Fatimaer [facility] 01-18-2024 12:19-0400 Diastolic blood pressure 100 mm[Hg] Michael Ramos DO Work Phone: [facility] 01-18-2024 12:19-0400 Systolic blood pressure 170 mm[Hg] Michael Ramos DO Work Phone: [facility] 01-18-2024 11:040 Body height 162.6 cm Michael Ramos DO Work Phone: [facility] 01-18-2024 11:040 Body mass index (BMI) [Ratio] 23 kg/m2 Michael Ramos DO Work Phone: [facility] 01-18-2024 11:040 Body weight 60.78 kg Michael Ramos DO Work Phone: [facility] 01-18-2024 11:040 Heart rate 60 /min Michael Ramos DO Work Phone: [facility] 12-22-2023 13:040 Body height 162.56 cm [facility] 12-22-2023 13:26-0400 Body mass index (BMI) [Ratio] 23.6 kg/m2 [facility] 12-22-2023 13:26-0400 Body temperature 96.8 [degF] [facility] 12-22-2023 13:26-0400 Body weight 62.25 kg [facility] 12-22-2023 13:26-0400 Diastolic blood pressure 74 mm[Hg] [facility] 12-22-2023 13:26-0400 Heart rate 68 /min [facility] 12-22-2023 13:26-0400 Respiratory rate 16 /min [facility] 12-22-2023 13:26-0400 SaO2% (BldA) [Mass fraction] 98 % [facility] 12-22-2023 13:26-0400 Systolic blood pressure 131 mm[Hg] [facility] 12-17-2023 11:13040 Body height 162.56 cm [facility] 12-17-2023 11:13-0400 Body mass index (BMI) [Ratio] 22.6 kg/m2 [facility] 12-17-2023 11:13-0400 Body weight 59.87 kg [facility] 12-17-2023 11:13-0400 Diastolic blood pressure 68 mm[Hg] [facility] 12-17-2023 11:13-0400 Heart rate 63 /min [facility] 12-17-2023 11:13-0400 Systolic blood pressure 162 mm[Hg] [facility] 08-05-2023 10:46-0400 Body height 162.56 cm [facility] 08-05-2023 10:46-0400 Body mass index (BMI) [Ratio] 23.3 kg/m2 [facility] 08-05-2023 10:46-0400 Body temperature 96.1 [degF] [facility] 08-05-2023 10:46-0400 Body weight 61.8 kg [facility] 08-05-2023 10:46-0400 Diastolic blood pressure 80 mm[Hg] [facility] 08-05-2023 10:46-0400 Heart rate 68 /min [facility] 08-05-2023 10:46-0400 Respiratory rate 16 /min [facility] 08-05-2023 10:46-0400 SaO2% (BldA) [Mass fraction] 98 % [facility] 08-05-2023 10:46-0400 Systolic blood pressure 132 mm[Hg] [facility] 05-18-2023 11:27-0500 Body height 162.6 cm Michael Ramos DO Work Phone: [facility] 05-18-2023 11:27-0500 Body mass index (BMI) [Ratio] 22.49 kg/m2 Michael Ramos DO Work Phone: [facility] 05-18-2023 11:270500 Body weight 59.42 kg Michael Ramos DO Work Phone: [facility] 05-18-2023 11:27-0500 Diastolic blood pressure 80 mm[Hg] Michael Ramos DO Work Phone: [facility] 05-18-2023 11:27-0500 Heart rate 64 /min Michael Richard DO Work Phone: [facility] 05-18-2023 11:27-0500 Systolic blood pressure 140 mm[Hg] Michael Ramos DO Work Phone: [facility] 03-10-2023 10:36-0500 Body height 162.6 cm Adrien Avalos DIRECTOR OF [employer] Work Phone: [facility] 03-10-2023 10:36-0500 Body mass index (BMI) [Ratio] 22.31 kg/m2 Adrien Avalos DIRECTOR OF [employer] Work Phone: [facility] 03-10-2023 10:36-0500 Body weight 58.97 kg Adrien Avalos DIRECTOR OF [employer] Work Phone: [facility] 03-10-2023 10:36-0500 Diastolic blood pressure 66 mm[Hg] Adrien Avalos DIRECTOR OF [employer] Work Phone: [facility] 03-10-2023 10:36-0500 Heart rate 64 /min Adrien Avalos DIRECTOR OF [employer] Work Phone: [facility] 03-10-2023 10:36-0500 Systolic blood pressure 140 mm[Hg] Adrien Avalos DIRECTOR OF [employer] Work Phone: [facility] 02-02-2023 11:00-0500 Body height 162.56 cm Antonino Gustafson Other [employer] Other 02-02-2023 11:00-0500 Body mass index (BMI) [Ratio] 22.14 kg/m2 Antonino Gustafson Other [employer] Other 02-02-2023 11:00-0500 Body weight 58.51 kg Antonino Gustafson Other [employer] Other 02-02-2023 11:00-0500 Diastolic blood pressure 63 mm[Hg] Antonino Gustafson Other [place] [employer] Other 02-02-2023 11:00-0500 Systolic blood pressure 127 mm[Hg] Antonino Gustafson Other [facility] [employer] Other 01-29-2023 14:05-0400 Body temperature 97.2 [degF] MD Antonino Gustafson Work Phone: [facility] 01-29-2023 14:05-0400 Diastolic blood pressure 71 mm[Hg] MD Antonino Gustafson Work Phone: [facility] 01-29-2023 14:05-0400 Heart rate 75 /min MD Antonino Gustafson Work Phone: [facility] 01-29-2023 14:05-0400 Respiratory rate 16 /min MD Antonino Gustafson Work Phone: [facility] 01-29-2023 14:05-0400 SaO2% (BldA) [Mass fraction] 95 % MD Antonino Gustafson Work Phone: [facility] 01-29-2023 14:05-0400 Systolic blood pressure 156 mm[Hg] MD Antonino Gustafson Work Phone: [facility] 01-29-2023 05:56-0400 Body weight 57.1 kg MD Antonino Gustafson Work Phone: [facility] 01-28-2023 16:00-0400 Body height 162.56 cm MD Antonino Gustafson Work Phone: [facility] 01-27-2023 10:54-0400 Body temperature 97.8 [degF] MD Antonino Gustafson Work Phone: [facility] 01-27-2023 10:54-0400 Diastolic blood pressure 74 mm[Hg] MD Antonino Gustafson Work Phone: [facility] 01-27-2023 10:54-0400 Heart rate 64 /min MD Antonino Gustafson Work Phone: [facility] 01-27-2023 10:54-0400 Respiratory rate 20 /min MD Antonino Gustafson Work Phone: [facility] 01-27-2023 10:54-0400 SaO2% (BldA) [Mass fraction] 100 % MD Antonino Gustafson Work Phone: [facility] 01-27-2023 10:54-0400 Systolic blood pressure 181 mm[Hg] MD Antonino Gustafson Work Phone: [facility] 01-27-2023 07:53-0400 Body height 162.56 cm MD Antonino Gustafson Work Phone: [facility] 01-27-2023 07:53-0400 Body weight 58.96 kg MD Antonino Gustafson Work Phone: [facility] 01-04-2023 13:00-0400 Body height 162.56 cm Liliya Bhavna Other [employer] Other 01-04-2023 13:00-0400 Body mass index (BMI) [Ratio] 22.59 kg/m2 Liliya Bhavna Other [employer] Other 01-04-2023 13:00-0400 Body temperature 96.4 [degF] Liliya Bhavna Other [employer] Other 01-04-2023 13:00-0400 Body weight 59.69 kg Liliya Bhavna Other [employer] Other 01-04-2023 13:00-0400 Diastolic blood pressure 74 mm[Hg] Liliya Bhavna Other [employer] Other 01-04-2023 13:00-0400 Respiratory rate 18 /min Liliya Bhavna Other [employer] Other 01-04-2023 13:00-0400 SaO2% (BldA) [Mass fraction] 98 % Liliya Bhavna Other [employer] Other 01-04-2023 13:00-0400 Systolic blood pressure 153 mm[Hg] Liliya Bhavna Other [employer] Other 11-03-2022 15:30-0400 Body height 162.56 cm Antonino Gustafson Other [employer] Other 11-03-2022 15:30-0400 Body mass index (BMI) [Ratio] 22.83 kg/m2 Antonino Gustafson Other [employer] Other 11-03-2022 15:30-0400 Body weight 60.33 kg Antonino Gustafson Other [employer] Other 11-03-2022 15:30-0400 Diastolic blood pressure 55 mm[Hg] Antonino Gustafson Other [employer] Other 11-03-2022 15:30-0400 Systolic blood pressure 146 mm[Hg] Antonino Gustafson Other [employer] Other 06-11-2022 11:40-0400 Body height 162.56 cm Liliya Bhavna Other [employer] Other 06-11-2022 11:40-0400 Body mass index (BMI) [Ratio] 24.92 kg/m2 Liliya Bhavna Other [employer] Other 06-11-2022 11:40-0400 Body temperature 96.9 [degF] Liliya Bhavna Other [employer] Other 06-11-2022 11:40-0400 Body weight 65.86 kg Liliya Bhavna Other [employer] Other 06-11-2022 11:40-0400 Diastolic blood pressure 88 mm[Hg] Liliya Bhavna Other [employer] Other 06-11-2022 11:40-0400 Respiratory rate 18 /min Liliya Bhavna Other [employer] Other 06-11-2022 11:40-0400 SaO2% (BldA) [Mass fraction] 98 % Liliya Bhavna Other [employer] Other 06-11-2022 11:40-0400 Systolic blood pressure 138 mm[Hg] Liliya Bhavna Other [employer] Other 03-18-2022 11:35-0500 Diastolic blood pressure 62 mm[Hg] Antonino Gustafson Work Phone: [facility] [employer] [facility] DO Work Phone: 03-18-2022 11:35-0500 Systolic blood pressure 130 mm[Hg] Antonino Gustafson Work Phone: [facility] [employer] [facility] DO Work Phone: 03-18-2022 11:23-0500 Body height 162.56 cm Antonino Gustafson Work Phone: [facility] [employer] [facility] DO Work Phone: 03-18-2022 11:23-0500 Body mass index (BMI) [Ratio] 24.2 kg/m2 Antonino Gustafson Work Phone: [facility] [employer] [facility] DO Work Phone: 03-18-2022 11:23-0500 Body surface area Derived from formula 1.69 m2 Antonino Gustafson Work Phone: [facility] 250 DO Work Phone: 03-18-2022 11:23-0500 Body weight 63.96 kg Antonino Gustafson Work Phone: [facility] 250 DO Work Phone: 03-18-2022 11:23-0500 Diastolic blood pressure 60 mm[Hg] Antonino Gustafson Work Phone: [facility] 250 DO Work Phone: 03-18-2022 11:23-0500 Heart rate 60 /min Antonino Gustafson Work Phone: [facility] 250 DO Work Phone: 03-18-2022 11:23-0500 Systolic blood pressure 142 mm[Hg] Antonino Gustafson Work Phone: [facility] 250 DO Work Phone: 01-15-2022 11:16-0400 Diastolic blood pressure 80 mm[Hg] Antonino Gustafson Work Phone: [facility] 250 DO Work Phone: 01-15-2022 11:16-0400 Systolic blood pressure 192 mm[Hg] Antonino Gustafson Work Phone: [facility] 250 DO Work Phone: 01-15-2022 10:55-0400 Diastolic blood pressure 80 mm[Hg] Antonino Gustafson Work Phone: [facility] 250 DO Work Phone: 01-15-2022 10:55-0400 Systolic blood pressure 218 mm[Hg] Antonino Gustafson Work Phone: [facility] DO Work Phone: 01-15-2022 10:48-0400 Body height 162.56 cm Antonino Gustafson Work Phone: [facility] 250 DO Work Phone: 01-15-2022 10:48-0400 Body mass index (BMI) [Ratio] 23.34 kg/m2 Antonino Gustafson Work Phone: [facility] 250 DO Work Phone: 01-15-2022 10:48-0400 Body surface area Derived from formula 1.66 m2 Antonino Gustafson Work Phone: [facility] 250 DO Work Phone: 01-15-2022 10:48-0400 Body weight 61.69 kg Antonino Gustafson Work Phone: [facility] 250 DO Work Phone: 01-15-2022 10:48-0400 Diastolic blood pressure 74 mm[Hg] Antonino Gustafson Work Phone: [facility] 250 DO Work Phone: 01-15-2022 10:48-0400 Heart rate 60 /min Antonino Gustafson Work Phone: [facility] 250 DO Work Phone: 01-15-2022 10:48-0400 Systolic blood pressure 220 mm[Hg] Antonino Gustafson Work Phone: [facility] 250 DO Work Phone: 12-08-2021 11:40-0400 Body height 162.56 cm Liliya Bhavna Other [employer] Other 12-08-2021 11:40-0400 Body mass index (BMI) [Ratio] 23.34 kg/m2 Liliya Bhavna Other [employer] [address] Other 12-08-2021 11:40-0400 Body temperature 97.2 [degF] Liliya Bhavna Other [employer] Other 12-08-2021 11:40-0400 Body weight 61.69 kg Liliya Bhavna Other [employer] Other 12-08-2021 11:40-0400 Diastolic blood pressure 72 mm[Hg] Liliya Bhavna Other [employer] Other 12-08-2021 11:40-0400 Respiratory rate 18 /min Liliya Bhavna Other [employer] [address] Other 12-08-2021 11:40-0400 SaO2% (BldA) [Mass fraction] 99 % Liliya Bhavna Other [employer] [address] Other 12-08-2021 11:40-0400 Systolic blood pressure 130 mm[Hg] Liliya Bhavna Other [employer] Other 10-31-2021 03:30-0400 Diastolic blood pressure 85 mm[Hg] MD Antonino Gustafson Work Phone: [facility] 10-31-2021 03:30-0400 Heart rate 55 /min MD Antonino Gustafson Work Phone: [facility] 10-31-2021 03:30-0400 Respiratory rate 18 /min MD Antonino Gustafson Work Phone: [facility] 10-31-2021 03:30-0400 SaO2% (BldA) [Mass fraction] 96 % MD Antonino Gustafson Work Phone: [facility] 10-31-2021 03:30-0400 Systolic blood pressure 193 mm[Hg] MD Antonino Gustafson Work Phone: [facility] 10-31-2021 00:19-0400 Body height 162.56 cm MD Antonino Gustafson Work Phone: [facility] 10-31-2021 00:19-0400 Body temperature 98 [degF] MD Antonino Gustafson Work Phone: [facility] 10-31-2021 00:19-0400 Body weight 58.96 kg MD Antonino Gustafson Work Phone: [facility] 05-29-2021 11:00-0500 Body height Liliya Bhavna Other [employer] Other 05-29-2021 11:00-0500 Body mass index (BMI) [Ratio] 24.03 kg/m2 Liliya Bhavna Other [employer] Other 05-29-2021 11:00-0500 Body weight 63.5 kg Liliya Bhavna Other [employer] [address] Other 05-29-2021 11:00-0500 Diastolic blood pressure 76 mm[Hg] Liliya Bhavna Other [employer] [address] Other 05-29-2021 11:00-0500 Respiratory rate 18 /min Liliya Bhavna Other [employer] [address] Other 05-29-2021 11:00-0500 SaO2% (BldA) [Mass fraction] 99 % Liliya Bhavna Other [employer] [address] Other 05-29-2021 11:00-0500 Systolic blood pressure 134 mm[Hg] Liliya Bhavna Other [employer] Other 01-09-2021 11:30-0400 Diastolic blood pressure 70 mm[Hg] Antonino Gustafson Work Phone: [facility] 250 DO Work Phone: 01-09-2021 11:30-0400 Systolic blood pressure 144 mm[Hg] Antonino Gustafson Work Phone: [facility] 250 DO Work Phone: 01-09-2021 10:54-0400 Body height 162.56 cm Antonino Gustafson Work Phone: [facility] 250 DO Work Phone: 01-09-2021 10:54-0400 Body mass index (BMI) [Ratio] 24.2 kg/m2 Antonino Gustafson Work Phone: [facility] 250 DO Work Phone: 01-09-2021 10:54-0400 Body surface area Derived from formula 1.69 m2 Antonino Gustafson Work Phone: [facility] 250 DO Work Phone: 01-09-2021 10:54-0400 Body weight 63.96 kg Antonino Gustafson Work Phone: [facility] DO Work Phone: 01-09-2021 10:54-0400 Diastolic blood pressure 74 mm[Hg] Antonino Gustafson Work Phone: [facility] DO Work Phone: 01-09-2021 10:54-0400 Heart rate 60 /min Antonino Gustafson Work Phone: [facility] 250 DO Work Phone: 01-09-2021 10:54-0400 Systolic blood pressure 156 mm[Hg] Antonino Gustafson Work Phone: [facility] 250 DO Work Phone: Encounters Encounter Date Encounter Type Care Provider Facility Start: 03-06-2024 End: 03-07-2024 ambulatory Willie HronMalick Caio [place] Start: 03-06-2024 Emergency department patient visit Rolando Zarco Facility:[facility] Start: 03-06-2024 End: 03-07-2024 Observation Willie HornMalick Caio [facility] Start: 03-06-2024 End: 03-06-2024 Bamboo flowsheet Palma Rodriguez DO Work Phone: [facility] Start: 03-06-2024 End: 03-06-2024 Bamboo flowsheet Palma Rodriguez DO Work Phone: [facility] Start: 03-06-2024 End: 03-06-2024 ambulatory PALMA RODRIGUEZ Not Available Start: 02-17-2024 End: 02-17-2024 Patient encounter procedure [facility] Phys[facility] Work Phone: Start: 02-17-2024 End: 02-17-2024 ambulatory Antonino Gustafson [facility] Work Phone: Start: 02-07-2024 Non-patient / Non-visit [facility] Physician [facility] Work Phone: Start: 02-05-2024 Non-patient / Non-visit [facility] Physician [facility] Work Phone: Start: 01-25-2024 End: 01-25-2024 ambulatory [facility] Start: 01-18-2024 End: 01-18-2024 Office outpatient visit 25 minutes Michael Ramos DO Work Phone: [facility] Comment on above: Accelerated hyperten alvaro; ASHD (arteriosclerotic heart disease); Paroxysmal atrial fibrillation (Multi); Former smoker; Body mass index (BMI) 23.0-23.9, adult Start: 01-18-2024 End: 01-18-2024 ambulatory [facility] Start: 12-22-2023 End: 12-22-2023 ambulatory [facility] Work Phone: Start: 12-22-2023 End: 12-22-2023 Patient encounter procedure [facility] José Antonio Work Phone: Start: 12-17-2023 End: 12-17-2023 ambulatory [facility] Work Phone: Start: 12-17-2023 End: 12-17-2023 Patient encounter procedure [facility] Work Phone: Start: 08-05-2023 End: 08-05-2023 ambulatory [facility] Work Phone: Start: 08-05-2023 End: 08-05-2023 Patient encounter procedure [facility] Physician [facility] Nephrology José Antonio Work Phone: Start: 07-27-2023 Non-patient / Non-visit [facility] Work Phone: Start: 05-18-2023 End: 05-18-2023 ambulatory [facility] Start: 05-18-2023 End: 05-18-2023 Office outpatient visit 25 minutes [facility] Work Phone: [facility] Comment on above: Paroxysmal atrial fi brillation (CMS/HCC); Accelerated hypertension; Mixed hyperlipidemia; Stage 3b chronic kidney disease (CMS/HCC) Start: 03-10-2023 End: 03-10-2023 Office outpatient visit 15 minutes Adrien Avalos DIRECTOR OF DISTRIBUTION-CUSTOM BOW MAKER Work Phone: [facility] Comment on above: Paroxysmal atrial fi brillation (CMS/HCC) (Primary Dx); Chest pain, unspecified type; Accelerated hypertension; Stage 3a chronic kidney disease (CMS/HCC); BMI 22.0-22.9, adult Start: 03-10-2023 End: 03-10-2023 ambulatory [facility] Start: 02-24-2023 End: 02-24-2023 ambulatory Antonino Gustafson Other [employer] Other Start: 02-24-2023 Telephone encounter Antonino Gustafson [facility] Start: 02-02-2023 End: 02-02-2023 ambulatory Antonino Gustafson Other [employer] [address] Other Start: 02-02-2023 Transitional care michaela parkinsongiorgi srvc 14 day discharge Antonino Gustafson [facility] Start: 01-28-2023 End: 01-28-2023 ambulatory Antonino Gustafson Other [employer] Other Start: 01-28-2023 Telephone encounter Antonino Gustafson [facility] Start: 01-28-2023 End: 01-29-2023 Evaluation and management of inpatient MD Antonino Gustafson Work Phone: [facility] Work Phone: Start: 01-27-2023 Evaluation and management of inpatient MD Antonino Gustafson Work Phone: [facility] Work Phone: Start: 01-27-2023 observation encounter MD Preethi Gustafson Work Phone: [facility] Work Phone: Start: 01-04-2023 End: 01-04-2023 ambulatory Liliya Bhavna Other [employer] [address] Other Start: 01-04-2023 Office outpatient vi sit 25 minutes Liliya Bhavna [facility] Start: 11-03-2022 End: 11-03-2022 ambulatory Antonino Gustafson Other [employer] [address] Other Start: 11-03-2022 Office outpatient vi sit 15 minutes Antonino Gustafson [facility] Start: 10-09-2022 Rx Renewal Antonino Gustafson Work Phone: [facility] 250 DO Work Phone: Start: 06-11-2022 End: 06-11-2022 ambulatory Liliya Bhavna Other [employer] Other Start: 06-11-2022 Office outpatient vi sit 15 minutes Liliya Bhavna [facility] José Antonio Start: 06-03-2022 End: 06-04-[address] ANTONINO GUSTAFSON Facility:[facility] Start: 03-18-2022 Office outpatient vi sit 10 minutes Antonino Gustafson Work Phone: [facility] 250 DO Work Phone: Start: 03-18-[address] Antonino Gustafson Facility: Start: 02-09-2022 Adult health examination Preethi Gustafson Other [facility] [employer] Other Start: 02-05-2022 End: 02-06-[address] MICHAEL RAMOS Facility:[facility] Start: 01-15-[address] Michael Ramos Facility: Start: 01-15-2022 Office outpatient vi sit 25 minutes Antonino Gustafson Work Phone: [facility] 250 DO Work Phone: Start: 12-17-2021 Rx Renewal Antonino Gustafson Work Phone: [facility] 250 DO Work Phone: Start: 12-08-2021 End: 12-08-2021 ambulatory Liliya Bhavna Other [employer] Other Start: 12-08-2021 Office outpatient vi sit 25 minutes Liliya Bhavna [facility] José Antonio Start: 12-04-2021 End: 12-05-2021 ambulatory LILIYA BHAVNA Facility:[facility] Start: 10-31-2021 End: 10-31-2021 Emergency department patient visit MD Antonino Gustafson Work Phone: [facility] Start: 09-16-2021 Rx Renewal Antonino E Gustafson Work Phone: [facility] 250 DO Work Phone: Start: 05-29-2021 End: 05-29-2021 ambulatory Liliya Bhavna Other [facility] [employer] Other Start: 05-29-2021 Office outpatient vi sit 15 minutes Liliya Bhavna [facility] José Antonio Start: 01-22-2021 Rx Renewal Antonino E Sj Work Phone: [facility] [address] [place] Work Phone: Start: 01-09-2021 Office outpatient vi sit 15 minutes Antonino Gustafson Work Phone: [facility] 250 DO Work Phone: Start: 01-09-2021 Patient encounter procedure Antonino Gustafson Work Phone: [facility] 250 DO Work Phone: Procedures Date Procedure [...] - Tdap) DTaP/Tdap/Td Vaccines (2 - Tdap) [facility] Start: 09-20-2024 End: 09-20-2024 Patient encounter procedure 09/20/2024 10:20 AM EDT Office Visit [address] [place] [address] Michael Ramos, [address] [facility] [address] [place] [address] [facility] Start: 04-05-2024 End: 04-05-2024 Patient encounter procedure 04/05/2024 10:30 AM EST Office Visit [address] [place] [address] Michael Ramos, DO [address] [facility] [address] [place] [address] [facility] Start: 03-06-2024 End: 03-06-2024 Patient encounter procedure 03/06/2024 1:00 PM EST Office Visit [facility] [address] [place] [address] Palma Rodriguez, DO [address] [place] [address] Arrived [facility] Comment on above: Arrived Start: 01-24-2024 End: 01-24-2024 Professional / ancillary services management 01/24/2024 10:00 AM EDT Ancillary Procedure [facility] [address] [facility] [address] [place] [address] [facility] Start: 01-18-2024 End: 01-17-2025 Holter monitor study Holter Or Event [facility] Routine Paroxysmal atrial fibrillation (Multi) Expected: 01/18/2024 (Approximate), Expires: 01/17/2025 [facility] Service Area Work Phone: Comment on above: Expected: 01/18/2024 (Approximate), Expires: 01/17/2025 Start: 01-18-2024 End: 01-18-2024 Patient encounter procedure 01/18/2024 10:40 AM EDT Office Visit [address] [place] [address] Michael Ramos DO [address] [facility] [address] [place] [address] [facility] Start: 11-28-2023 COVID-19 Vaccine ( season) COVID-19 Vaccine ( season) [facility] Start: 11-28-2023 Influenza vaccination Influenza Vacc ine (#1) [facility] Start: 11-17-2023 End: 11-17-2023 Patient encounter procedure 11/17/2023 10:00 AM EDT Office Visit [facility] [address] [facility] [address] [place] [address] Adrien Avalos, DIRECTOR OF DISTRIBUTION-CUSTOM BOW MAKER [address] [place] [address] [facility] Start: 05-18-2023 End: 05-18-2023 Patient encounter procedure 05/18/2023 11:00 AM EST Office Visit [facility] [address] [place] [id number] Michael Ramos DO [address] [place] [address] [facility] Start: 04-06-2023 End: 04-06-2023 Patient encounter procedure 04/06/2023 10:00 AM EST Procedure Visit [facility] [address] [place] [phone] [facility] Start: 03-10-2023 End: 03-10-2024 Holter monitor study Holter Or Event [facility] Routine Paroxysmal atrial fibrillation (CMS/HCC) Expected: 03/10/2023 (Approximate), Expires: 03/10/2024 [facility] Service Area Work Phone: Comment on above: Expected: 03/10/2023 (Approximate), Expires: 03/10/2024 Start: 01-29-2023 [facility] Start: 01-27-2023 Hospital admission [facility] Start: 01-27-2023 Referral to store operations manager [facility] Start: 01-14-2023 FUV, Provider: Michael Ramos, Status: Pen, Time: 10:00 AM FUV, Provider: Michael Ramos, Status: Pen, Time: 10:00 AM [facility] 250 DO Work Phone: Start: 11-27-2022 COVID-19 Vaccine ( season) COVID-19 Vaccine ( season) [facility] Start: 11-27-2022 Influenza vaccination Influenza Vacc ine (#1) [facility] Start: 03-18-2022 FUV, Provider: Adrien Cha, Status: Pen, Time: 11:30 AM FUV, Provider: Adrien Cha, Status: Pen, Time: 11:30 AM [facility] 250 DO Work Phone: Start: 01-15-2022 FUV, Provider: Michael Ramos, Status: Pen, Time: 10:00 AM FUV, Provider: Michael Ramos, Status: Hao, Time: 10:00 AM [facility] 250 DO Work Phone: Start: 05-08-2021 COVID-19 Vaccine (4 - Moderna series) COVID-19 Vaccine (4 - Moderna series) [facility] Start: 11-18-2014 RSV High Risk: (Elde rly (60+) or Population) (1 - 1-dose 75+ series) RSV High Risk: (Elderly (60+) or Population) (1 - 1-dose 75+ series) [facility] Start: 11-18-1989 Zoster Vaccines (1 o f 2) Zoster Vaccines (1 of 2) [facility] Start: 11-18-1958 Urine screening for protein CKD: Urine Protein Screening [facility] Start: 11-18-1957 Diabetes mellitus screening Diabetes Screening [facility] Start: 11-18-1945 Pneumococcal Vaccine : 65+ Years (1 - PCV) Pneumococcal Vaccine: 65+ Years (1 - PCV) [facility] Start: 11-18-1945 Pneumococcal Vaccine : 65+ Years (1 of 2 - PCV) Pneumococcal Vaccine: 65+ Years (1 of 2 - PCV) [facility] Start: 1940 Annual wellness visit Medicare Initial Physical (IPPE) [facility] Start: 1940 Lipid panel Lipid Panel [facility] Start: 1940 Medicare Annual Wellness Visit Medicare Annual Wellness Visit (AWV) [facility] Start: 1940 Screening for osteoporosis Bone Density Scan [facility] Start: 1940 Thyroid stimulating hormone measurement TSH Level [facility] Patient Education [facility] Work Phone: Patient referral [facility] Work Phone: Renal function 2000 panel - Serum or Plasma [facility] Immunizations Immunization Date Immunization Notes Care Provider Fa cility 03-13-2021 Moderna COVID-19 Vac cine 100 MCG/0.5ML Intramuscular Suspension Antonino E Gustafson Work Phone: [facility] 250 DO Work Phone: 06-19-2020 Moderna COVID-19 Vac cine 100 MCG/0.5ML Intramuscular Suspension Antonino E Gustafson Work Phone: [facility] 250 DO Work Phone: 05-23-2020 Moderna COVID-19 Vac cine 100 MCG/0.5ML Intramuscular Suspension Antonino E Gustafson Work Phone: [facility] 250 DO Work Phone: 11-02-2014 diphtheria, tetanus toxoids and acellular pertussis vaccine, 5 pertussis antigens Antonino Giorgi Gustafson Work Phone: [place] [address] DO Work Phone: Payers Date Payer Category Payer Self-pay [id number] 2015 Medicare supplementa l policy (as second payer) [employer] [id number] 2015 Private Health Insurance [id number] 2004 Medicare [id number] 1959 Medicare [id number] 1959 Private Health Insurance [id number] [id number] 1939 Unknown [id number] 2.16.840.1.239382.3.579 .2.356 1939 Unknown [id number] 2.16.840.1.178342.3.579 .2.356 1939 Unknown [id number] 2.16840.1.785963.3.579 .2.593 1939 Unknown [id number] 2.16.840.1.378712.3.579 .2.593 1939 Unknown [id number] 2.840.1.901779.3.579 .2.593 1939 Unknown [id number] 2.840.1.498861.3.579 .2.593 1939 Unknown [id number] 2.840.1.623596.3.579 .2.1244 1939 Unknown [id number] 2.840.1.732800.3.579 .2.1244 1939 Unknown [id number] 2.840.1.663986.3.579 .2.1244 1939 Unknown [id number] 2.840.1.398944.3.579 .2.1244 1939 Unknown [id number] 2.840.1.169922.3.579 .2.1259 1939 Unknown [id number] 2.16840.1.116539.3.579 .2.727 1939 Unknown [id number] 2.16840.1.072840.3.579 .2.727 1939 Unknown [id number] 2.16840.1.253941.3.579 .2.727 1939 Unknown [id number] 2.16.840.1.903899.3.579 .2.727 1939 Unknown [id number] 2.16.840.1.285894.3.579 .2.727 1939 Unknown [id number] 2.16.840.1.638085.3.579 .2.727 1939 Unknown [id number] 2.16.840.1.813065.3.579 .2.727 1939 Unknown [id number] 2.16.840.1.268702.3.579 .2.727 Unknown Unknown [id number] 2.16.840.1.018198.3.579 .2.531 Social History Date Type Detail Facility Start: 03-10-2023 End: 01-18-2024 No alcohol use No alcohol use [facility] 250 DO Work Phone: Comment on above: Coffee 2 cups daily; quit 1965; Start: 03-10-2023 End: 01-18-2024 Sex Assigned At [facility] Start: 10-31-2021 Tobacco smoking status [facility] Never smoked tobacco (finding) [facility] Start: 1940 Sex Assigned At Female F [facility] Start: 01-27-2023 End: 03-06-2024 Tobacco smoking status [facility] Ex-smoker (finding) [facility] End: 03-29-1969 History of tobacco use Current smoker [facility] Work Phone: End: 03-29-1969 History of tobacco use Cigarette Smoker [facility] Work Phone: Start: 03-10-2023 End: 01-18-2024 Tobacco use and exposure Smokeless tobacco non-user [facility] Work Phone: Start: 03-10-2023 End: 01-18-2024 Alcohol intake Lifetime non-drinker (finding) [facility] Work Phone: Start: 1940 Sex Assigned At Not on file [facility] Work Phone: Start: 02-28-2023 End: 01-18-2024 Exposure to SARS-CoV-2 (event) Not sure [facility] Start: 02-17-2024 Sex Female (finding) [facility] Tobacco smoking status NHIS Tobacco smoking consumption unknown [facility] Healthcare Tobacco smoking status No Smoking Status Entered [facility] Goals Date Patient Goal Desired Activity /State Functional Status Date Assessment Result Facility 03-06-2024 Functional Status N/A [facility] 03-06-2024 Functional Status [facility] 01-29-2023 Functional status Patient at [facility] Work Phone: 01-27-2023 Functional status Patient at [facility] Work Phone: Mental Status Date Assessment Result Facility 01-29-2023 Cognitive function Cognitive Sta s Patient at [facility] Work Phone: 01-27-2023 Cognitive function Cognitive Sta [facility] Patient at [facility] Work Phone: Clinical Notes 05-29-2021 to 03-07-2024 Note Date & Type Note Facility 03-07-2024 Hospital Discharg e instructions Patient Education 03/07/2024 14:42:18 Atrial Fibrillation, Edrb-du-Hrqa Atrial Fibrillation Atrial fibrillation (AFib) is a [...] Follow these instructions at home: Medicines Take jhjl-xha-sqjshic and prescription medicines only as told by [...] provider. Document Revised: 12/02/2022 Document Reviewed: 12/02/2022 [place] Patient Education 2023 CS-Keys. 03/07/2024 14:42:15 Core Measures: Stroke (Cerebrovascular Accident) [facility] ([place]OM) Stroke (Cerebrovascular Accident) A stroke is [...] factors for stroke, work with your health primary care coordinator to control them. High Blood Pressure: High [...] Please call [facility] Smoking Cessation Program at [phone] ([facility]), or [phone], ext. [phone] Diabetes: Work with your healthcare professional to [...] cholesterol diet, you can call our [employer] wood preparation supervisor at [phone] Ext. [phone]. The goal for total cholesterol is less [...] your risk of stroke with your health primary care coordinator. TREATMENT TIME IS OF THE ESSENCE! Medications [...] will be taken to prevent short and terminal makeup operator complications, including aspiration pneumonia, blood clots in [...] for more information on strokes, log onto [email or web address] or [email or web address] or call the [place] [employer] at [phone]. Revised 03/2018 Follow Up Care 03/06/2024 14:50:37 With:ANTONINO GUSTAFSON MD, FAM Address: [address] [place] [id number]- When:5 to 7 days Comments:Call for followup appointment to talk about switching from Eliquis to Coumadin once you are out of Eliquis With:Kamar Escobar MD, NEU Address: [address] [address]- When:2 to 4 weeks [facility] 03-07-2024 Note Discharge Summary Admission and Discharge [...] ER on 03/06 after being seen by temper mill operator due to visual field defects. Per patient [...] EST, Stroke, Consult and Co-manage Consult to Title I Instructional Assistant - Ordered -- 03/06/24 23:07:42 EST Physical [...] MD, FAM Within 5 to 7 days [facility] [place] [address]- Additional Instructions: Call for followup appointment to talk about switching from Eliquis to Coumadin once you are out of Eliquis Kamar Escobar MD, NEU Within 2 to [address] [address]- Additional Instructions: Patient Education Atrial Fibrillation, Oosn-ut-Jcdg Core Measures: Stroke (Cerebrovascular Accident) [facility] ([facility]USTOM) [facility] Comment on above: Result Comment: Elec tronically [...] MD, FAM Within 5 to 7 days [facility] [place] [address]- Additional Instructions: Call for followup appointment to talk about switching from Eliquis to Coumadin once you are out of Kamar Lopez MD, NEU Within 2 to [address] [address]- Additional Instructions: Atrial Fibrillation, Csoq-kj-Zldm Core Measures: Stroke (Cerebrovascular Accident) [facility] ([facility]USTOM) Extracted from: Title:Consult Note- Neurology Author:Nery Mace RN Date:03/07/24 ASSESSMENT: 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 There is some developing encephalomalacia that makes the stroke appear subacute to chronic, but there are still some peripheral diffusion weighted signal changes that could suggest acute on chronic ischemia. In early January she had CT images at [facility] that reportedly did not show any concerns. And she cannot quite pin down when her visual issues started. So it is hard to know how old the stroke is. Etiology either relates to arteriopathy such as ROAD EQUIPMENT OPERATOR occlusion on the right or her atrial fibrillation. I do not have any angiography yet. PLAN: 1. Apixaban has been started here 2. CTA of head and neck 3. Transthoracic echocardiogram pending 4. She has chronically taken aspirin 81 mg daily at home. If the CTA studies show significant atherosclerotic disease or a ROAD EQUIPMENT OPERATOR occlusion then I would recommend she stay [...] unspecified) Extracted from: Title:Admission H & P Author:Chnaning Baeza Date:03/06/24 1. CVA (cerebrovascular acci dent) [...] atrial fibrillation) - New Dx per outpatient store operations manager, Dr Ramos - Mildly Bradycardic in the [...] Education Stroke Quality Measures Vital Signs Weight [facility] 12-10-2024 NoteEchocardiology Procedure Exam Date/Time Accession # Ordering Echo Transthoracic 03/07/2024 10:05 EST [id number] Abdulkadir Amaro DO Complete CPT code 93342 Reason for Exam (Echo Transthoracic Complete) CVA Report [facility] [address] [place] [address] Adult Echocardiogram Report Name: JANELLE BURT Study Date: 03/07/2024 09:18 AM BP: 173/67 mmHg Patient Location: [address] [place] [address] Bed(s) [facility] HR: 95 : 1940 Gender: Female Height: 65.5 in Age: 83 yrs Ethnicity: T Weight: 137 lb Reason For Study: CVA BSA: 1.7 m2 History: Hypertension, Atrial Fibrillation Ordering Physician: Abdulkadir Amaro Performed By: Ya Wyatt [facility] Interpretation Summary The left ventricle [...] no pleural effusion noted on this exam. [facility] No comparison study is available. MMode/2D Measurements [...] Chance Dennison MD Transcribed by: JOLENE Technologist: [facility]12-10-2024 Note Consultation Note Chief Complaint Headache, vision [...] was seen at the emergency department in [place], I believe family was concern for stroke, [...] both correctly = 0 Open and close eyes/waxer floor release hand: Obeys both correctly = 0 [...] early January she had CT images at [facility] that reportedly did not show any concerns. And she cannot quite pin down when her visual issues started. So it is hard to know how old the stroke is. Etiology either relates to arteriopathy such as ROAD EQUIPMENT OPERATOR occlusion on the right or her atrial fibrillation. I do not haveany angiography yet. PLAN: 1. Apixaban has been started here 2. CTA of head and neck 3. Transthoracic echocardiogram pending 4. She has chronically taken aspirin 81 mg daily at home. If the CTA studies show significant atherosclerotic disease or a ROAD EQUIPMENT OPERATOR occlusion then I would recommend she stay [...] 1 tab(s), Oral, B (more content not included)...[facility]:Result Comment: Electronically Signed By: Nery Mace RN\.br\Date and Time Signed: 03/07/24 07:04 EST\.br\Electronically Co-Signed By: Abdulkadir Amaro DO\.br\Date and Time Co-Signed: 03/07/24 09:43 EST\.br\Electronically Co-Signed By: Nery Mace RN [id number] NoteConsultation Note Chief Complaint Headache, vision issues [...] was seen at the emergency department in [place], I believe family was concern for stroke, [...] both correctly = 0 Open and close eyes/waxer floor release hand: Obeys both correctly = 0 [...] early January she had CT images at [facility] that reportedly did not show any concerns. And she cannot quite pin down when her visual issues started. So it is hard to know how old the stroke is. Etiology either relates to arteriopathy such as ROAD EQUIPMENT OPERATOR occlusion on the right or her atrial fibrillation. I do not haveany angiography yet. PLAN: 1. Apixaban has been started here 2. CTA of head and neck 3. Transthoracic echocardiogram pending 4. She has chronically taken aspirin 81 mg daily at home. If the CTA studies show significant atherosclerotic disease or a ROAD EQUIPMENT OPERATOR occlusion then I would recommend she stay [...] 1 tab(s), Oral, B (more content not included)...[facility]:Result Comment: Electronically Signed By: Nery Mace RN\.br\Date and Time Signed: 03/07/24 07:04 EST\.br\Electronically Co-Signed By: Abdulkadir Amaro DO\.br\Date and Time Co-Signed: 03/07/24 09:43 [id number] NoteInterdisciplinary Note - PT PT Evaluation done this date. Pt. with on AM-PAC this date. No further PT needs but may benefit from outpatient OT for vision issues.[facility]12-10-2024 NoteHistory and Physical Chief Complaint Pt to ED for vision changes. Has had issues intermittently since january. Went to [facility] who sent over for stroke workup. both eyes affected- one was complete, other was top and bottom. denies paresthesia, WARD. glucose 89 History of Present Illness This is an 83-year-old female patient with a past medical history as outlined below including hyperlipidemia, hypertension, hypothyroidism, and recent diagnosis of A-fib; who presented to the ED on the advice of her temper mill operator due to visual field deficits and concern for CVA. The patient has an unusual recent medical course. She had an outpatient workup per her store operations manager with a Holter monitor late in December. [...] they took her to the ED in [place] due to a severe headache. Workup was [...] the left eye. She presented to her temper mill operator today for evaluation of her vision and [...] except as noted in the HPI. Scoring Erid Fall Risk Score: 0 (03/06/24) Physical Exam [...] 15:17:00) Lymph Auto: 25 % (03/06/24 15:17:00) [place] Auto: 10.2 % (03/06/24 15:17:00) Eos Auto: 1 % (03/06/24 15:17:00) Basophil Auto: 0.8 % (03/06/24 15:17:00) Neutro Absolute: 5.4 E9/L (03/06/24 15:17:00) Lymph Absolute: 2.2 E9/L (03/06/24 15:17:00) [place] Absolute: 0.9 E9/L (03/06/24 15:17:00) Eos Absolute: [...] 15:17:00) CO2: 29 mmol/L (more content not included)...[facility] System[facility] on above:Result Comment: Electronically Signed By: Romero TOMLINSON, Lian Duarte\.br\Date and Time Signed: 03/06/2419:19 EST\.br\Electronically Co-Signed By: Willie Kearney DO\.br\Date and Time Co-Signed: 03/07/24 06:59 EST 03-06-2024 History of Present illness Narrative* Plama Rodriguez DO - 03/06/2024 1:00 PM EST Images from the original note were not included. Assessment/Plan Diagnoses and all orders for this visit: Homonymous hemianopia, left Cerebrovascular accident (CVA), unspecified mechanism (CMS/HCC) - Condition d/w pt and daughter. She has had some medical issues dating back to early January. Shehas had minimal work up. Advised to go to [facility] [place] for CVA workup documented in this encounterResearch Medical [id number] History of Present illness Narrative* Michael Ramos, - 01/18/2024 10:40 AM EDT Subjective Janelle Burt is a 83 y.o. female Chief Complaint Follow-up 83-year-old female returns for routine follow-up and is doing very well. She is overall improved from her hospitalization last year. She was hospitalized for transient atrial fibrillation, accelerated hypertension, small non-ST elevation CT. Catheterization reviewed today, at that time revealed [...] normal. Judgment: Judgment normal. Allergies Clonidine, Methylprednisolone, Nvjxxdg-eug-nem reductase inhibitors, Tati inhibitors, Amlodipine, Hydralazine, Lisinopril, [...] exam, discussion and plan. documented in this encounterAC[facility] Work Phone: 1(544) 221-772710-22-2024 Instructions* Patient Instructions* Leslie Spence LPN - [...] time of your visit. documented in this encounterACMC [facility] Work Phone: 1([phone]) 116-332809-20-2024 Evaluation note* Diagnosis Onset Date Resolution Status Admit Date CKD (chronic kidney disease) stage 3, GFR 30-59 ml/min acute Septem 2023 10:51am Hypothyroid acute November 10:51am Rhinorrhea acute November 10:51am Impacted cerumen of both ears acute December 22, 2023 1:11pm [facility] Work Phone: 1(613) 777-395602-20-2024 History of Present illness Narrative* Michael Ramos, [...] normal. Judgment: Judgment normal. Allergies Clonidine, Methylprednisolone, Cpnmgiv-jnm-oop reductase inhibitors, Tati inhibitors, Amlodipine, Hydralazine, Lisinopril, [...] exam, discussion and plan. documented in this encounterACMC [facility] Work Phone: 1(219) 833-613202-20-2024 Instructions* Patient Instructions* Abi Veronica LPN - [...] time of your visit. documented in this encounterACMC [facility] Work Phone: 1(955) 513-711912-13-2023 Evaluation + Plan note* Assessment & Plan Note - RYANNE Neumann - 03/10/2023 1:57 PM ESTAssociated Problem(s): Chronic renal disease, stage III (CMS/HCC) Recent creatinine 1.4 Follows annually with nephrology [facility] Work Phone: 1(797) 972-710712-13-2023 Evaluation + Plan note* Assessment & Plan Note - RYANNE Neumann - 03/10/2023 1:57 PM ESTAssociated Problem(s): Cardiac and Vasculature January 2023 hospitalization due to jaw pain and accelerated hypertension January 28, 2023 cardiac cath with insignificant coronary artery disease (No formal report, taken from discharge summary) [facility] Work Phone: 1(181) 350-727012-13-2023 Evaluation + Plan note* Assessment & Plan Note - RYANNE Neumann - 03/10/2023 1:57 PM ESTAssociated Problem(s): Paroxysmal atrial fibrillation (CMS/HCC) Remote history of transient event Recurrent transient atrial fibrillation during January 2023 hospitalization Reports being symptomatic and shaking inside Denies any recurrence [facility] Work Phone: 1(296) 626-709912-13-2023 Miscellaneous Notes* Assessment & Plan Note - [...] office with recent changes documented in this encounterACMC [facility] Work Phone: 1(363) 277-813412-13-2023 Evaluation + Plan note* Assessment & Plan Note - RYANNE Neumann - 03/10/2023 1:56 PM ESTAssociated Problem(s): Accelerated hypertension Optimal in office with recent changes [facility] Work Phone: [phone] 981-207212-13-2023 History of Present illness Narrative* RYANNE Neumann - 03/10/2023 10:30 AM EST Chief Complaint Getting used to my blood pressure Reason for Visit Patient presents to the office today for outpatient follow-up for hospital follow-up. Last evaluated in clinic by Dr. Ramos December 2022. Patient was recently hospitalized at [facility]. The patient was seen in Cardiology consult with subsequent cardiovascular management by [facility]. Hospitalization records have been reviewed. Reason for Cardiology Consultation: Jaw pain, accelerated hypertension transient atrial fibrillation. Consulting Deputy Clerk: Dr. Ramos Cardiovascular testing: Cardiac catheterization Changes [...] agreement to proceed with 30-day Caden of [employer] to assess for A-fib burden. Patient reports [...] Reactions Clonidine Shortness of breath Methylprednisolone Anaphylaxis Hquxcfe-Zzp-Mqa Reductase Inhibitors Myalgia Tati Inhibitors Rash Amlodipine [...] Dr. Ramos 8 weeks Adrien Avalos MSN, DIRECTOR OF DISTRIBUTION-CUSTOM BOW MAKER, [facility] Please excuse any errors in grammar or translation related to this dictation. Voice recognition software was utilized to prepare this document. documented in this encounterACMC Healthcare [facility] Work Phone: 1(595) 482-524212-13-2023 Instructions* Patient Instructions* RYANNE Neumann - 03/10/2023 [...] Dr. Ramos 8 weeks documented in this encounterACMC [facility] Work Phone: [phone]) 185-274611-29-2023 Evaluation note* Encounter Date Diagnosis Assessment Notes Treatment Notes Treatment Clinical Notes Jan, Hypothyroidism, unspecified (ICD-10 - E03.9) Net 263 Other 11-07-2023 Evaluation note* Encounter Date Diagnosis Assessment Notes Treatment Notes Treatment Clinical Notes Jan, Hypothyroidism, unspecified (ICD-10 - E03.9) Pt requests a med refill for chronic problem. Jan, CAD in [place] artery (ICD-10 - I25.10) Pt notes improvement in symptoms. Has scheduled appt with Cardiology for followup. Net 263 Other 11-03-2023 Hospital Discharge instructions Additional Instructions DISCHARGE INSTRUCTIONS FOR CARDIAC DESIGN DRAFTER CHIEF PHONE NUMBER OF YOUR PHYSICIAN: [phone] PROCEDURE: Heart Cath The following instructions have [...] cold, numb, blue or white, call the store operations manager immediately. 4. ACTIVITY: You are advised to [...] bottle, follow the instructions on the bottle. [facility] is not responsible for incorrect prescription information provided by the patient during their visit. Do not stop your medications without consulting your health care provider. Please take the list with you to your next doctor's appointment.[facility] Work Phone: 1(975) 311-899911-02-2023 Progress note Author Elsa Amin [facility] January 28, 2023 3:27pm Note Date/Time January 28, 2023 3 :27pm [facility] [address] [place] [address] Hospitalist Progress Note Signed Patient: Janelle Burt MR#: [id number] : 1940 Acct:[id number] Age/Sex: 82 / F Adm Date: 3 Loc: Room: [address] [place] [address] Type: ADM IN Attending Dr: Elsa Amin [...] Medrol] Allergy (Verified 01/27/23 08:01) Unknown Reaction Dxsukbl-UYP-VoQ Reductase Inhibitor [Dcrjqnd-Itx-Bcz Reductase Inhibitor] Allergy (Verified 01/27/23 08:01) Unknown [...] Tablet PO 01/28/24 06:29 Not Given DAILY.0630 [facility] Losartan Potassium 25 mg 01/28/23 09:00 01/28/23 [...] fibrillation. Repeat ECG 1 hour later showed anabaptist of sinus rhythm with first-degree AV block. Chest x-ray showed linear scarring at the left lung base. -WRY1QL4-CXZs equals 5. Recommend anticoagulation. -BNP elevated to [...] today. Documented By: Elsa Amin MD 01/28/23 1049 Signed By: <Electronically signed by Elsa Amin MD> 01/28/23 2974 [facility] Work Phone: [phone]) 654-968311-02-2023 Procedure [facility]11-01-2023 Consult note Author Sherron Ramos [facility] January 27, 2023 3:48pm Note Date/Time January 27, 2023 3 :36pm [facility] [address] [place] [address] Cardiology Consult Note Signed Patient: Janelle Burt MR#: [id number] : 1940 Acct:[id number] Age/Sex: 82 / F Adm Date: 3 Loc: 3T Room: [address] [place] [address] Type: ADM INOo Attending Dr: Elsa Amin [...] mild coronary disease by remote heart catheterization [id number] which included renal angiography with no evidence [...] make up place for her on the Carving Machine Operator schedule tomorrow; if she declines we will arrange outpatient stress imaging on appropriate medical therapy. Review of Systems Review of Systems All other systems reviewed & are negative unless noted below or in HPI Cardiovascular Cardiovascular: Reports as per HPI and Reports radiating jaw, neck or arm pain [facility] Medical History (Updated 01/27/23 @ 15:48 by [...] Medrol] Allergy (Verified 01/27/23 08:01) Unknown Reaction Qtlfjqt-WLP-MpB Reductase Inhibitor [Etimjnj-Tom-Irg Reductase Inhibitor] Allergy (Verified 01/27/23 08:01) Unknown [...] x10E3/uL Lymph # (Auto) 1.6 (1.00-4.8) x10E3/uL [place] # (Auto) 0.5 (0.0-0.8) x10E3/uL Eos # [...] signed by Sherron Ramos DO> 01/27/23 1548 [facility] Work Phone: 1(130) 210-143711-01-2023 History and physical note Author Elsa Amin [facility] January 27, 2023 2:57pm Note Date/Time January 27, 2023 2 :57pm [facility] [address] [place] [address] Hospitalist H&P Signed Patient: Janelle Burt MR#: [id number] : 1940 Acct:[id number] Age/Sex: 82 / F Adm Date: 3 Loc: Room: [address] [place] [address] Type: ADM INOo Attending Dr: Elsa Amin [...] to sinus rhythm with first-degree AV block. WTC4JC3-ZARu equals 5. She was admitted for further observation and cardiology evaluation. Review of Systems Review of Systems All other systems reviewed & are negative unless noted below or in HPI Review of systems: Neuro: Reports numbness/tingling in extremities. Denies dizziness/lightheadedness Pulmonary: Denies dyspnea, cough, wheezing. Cardiac: Denies chest pain/pressure, edema, palpitations. GI: Denies abdominal pain, N/V, constipation and diarrhea [facility] Medical History (Updated 01/27/23 @ 11:21 by [...] Medrol] Allergy (Verified 01/27/23 08:01) Unknown Reaction Venpclu-ONS-PgZ Reductase Inhibitor [Zsxyihl-Bys-Can Reductase Inhibitor] Allergy (Verified 01/27/23 08:01) Unknown [...] % (Auto) 23.7 % (.) 01/27/23 08:12 [place] % (Auto) 7.4 % (.) 01/27/23 08:12 Eos % (Auto) 1.7 % (.) 01/27/23 08:12 Baso % (Auto) 1.0 % (.) 01/27/23 08:12 Nucleat RBC Rel Count 0.1 /100 WBC (0-0.5) 01/27/23 08:12 Neut # (Auto) 4.6 x10E3/uL (1.8-7.7) 01/27/23 08:12 Lymph # (Auto) 1.6 x10E3/uL (1.00-4.8) 01/27/23 08:12 [place] # (Auto) 0.5 x10E3/uL (0.0-0.8) 01/27/23 08:12 [...] fibrillation. Repeat ECG 1 hour later showed anabaptist of sinus rhythm with first-degree AV block. Chest x-ray showed linear scarring at the left lung base. -ZUC9ZQ4-WBNo equals 5. Recommend anticoagulation. -BNP elevated to [...] <Electronically signed by Elsa Amin MD> 01/27/23 6274 [facility] Work Phone: 1([phone]) 651-438410-09-2023 Evaluation note* Encounter Date Diagnosis Assessment Notes [...] PCP for lipid profile and LFTs monitoring Net 263 Other 08-08-2023 Evaluation note* Encounter Date Diagnosis [...] adequately controlled. Oct, Other She is establis [facility] w podiatry for her foot fracture. Net 263 Other 03-16-2023 Evaluation note* Encounter Date Diagnosis [...] supplement. We will continue to monitor PTH. Net 263 Other 09-12-2022 Evaluation note* Encounter Date Diagnosis [...] supplement. We will continue to monitor PTH. Net 263 Other 03-03-2022 Evaluation note* Encounter Date Diagnosis [...] primary polydipsia. She drinks plenty of fluids. Net 263 Other Evaluation noteNo assessment information available [facility] Work Phone: evaluation note* Diagnosis Onset Date Resolution Status Atrial fibrillation acute Back pain with radiation acu te Hypertension acute Hypothyroid acute [facility] Work Phone: evaluation note* Diagnosis Onset Date Resolution Status Atrial fibrillation acute Back pain with radiation acu te Chest pain acute Elevated troponin acute Hypertension acute Hypothyroid acute NSTEMI (non-ST elevated myocardial infarction) acute [facility] Work Phone: Evaluation noteNo InformationNoresearch medical center [employer] Other Evaluation note* Diagnosis Paroxysmal atrial fibrillation (CMS/HCC)- Primary Atrial fibrillation Chest pain, unspecified type Accelerated hypertension Essential hypertension, malignant Stage 3a chronic kidney disease (CMS/HCC) BMI 22.0-22.9, adult documented in this encounter [facility] Work Phone: Evaluation note* Diagnosis Paroxysmal atrial fibrillation (CMS/HCC) Atrial fibrillation Accelerated hypertension Essential hypertension, malignant Mixed hyperlipidemia Stage 3b chronic kidney disease (CMS/HCC) documented in this encounter [facility] Work Phone: Evaluation note* Diagnosis Onset Date Resolution Status Atrial fibrillation acute CKD (chronic kidney disease) stage 3, GFR 30-59 ml/min acute Hyperlipidemia acute [id number] acute Hyponatremia acute Hypoparathyroidism acute [facility] Work Phone: evaluation note* Diagnosis Onset Date Resolution Status Hypothyroid acute [facility] Work Phone: Evaluation note* Diagnosis Paroxysmal atrial fibrillation (Multi)- Primary Atrial fibrillation Chest pain, unspecified type Accelerated hypertension Essential hypertension, malignant Stage 3a chronic kidney disease (Multi) BMI 22.0-22.9, adult Accelerated hypertension Essential hypertension, malignant ASHD (arteriosclerotic heart disease) Coronary atherosclerosis of unspecified type of vessel, [place] or graft Paroxysmal atrial fibrillation (Multi) Atrial fibrillation Former smoker Personal history of tobacco use, presenting hazards to health Body mass index (BMI) 23.0-23.9, adult documented in this encounter [facility] Work Phone: evaluation note* Diagnosis Homonymous hemianopia, left- Primary Cerebrovascular accident (CVA), unspecified mechanism (CMS/HCC) documented in this encounter [facility] N[facility]ative - Reported* Type Description Date Medical History hyperlipidemia Medical History hypertension Medical History cervical cancer Surgical History partial hysterectomy Surgical History appendectomy Surgical History cataract Hospitalization History SEE ABOVE [id number] [facility] Goshi Other History general Narrative - Reported* Type Description Date Medical History hyperlipidemia Medical History hypertension Medical History cervical cancer Surgical History partial hysterectomy Surgical History appendectomy Surgical History cataract Surgical History TORN RETINA IN LEFT EYE Hospitalization History SEE ABOVE Net 263 Other [place] general Narrative - Reported* Type Description Date Medical History hyperlipidemia Medical History hypertension Medical History cervical cancer Surgical History partial hysterectomy Surgical History appendectomy Surgical History cataract Surgical History TORN RETINA IN LEFT EYE Surgical History Heart Cath 01/2023 Hospitalization History SEE ABOVE Hospitalization History [facility] 01/2023 [facility] Goshi Other History of Present illness Narrative* The [...] sporadically. Blood pressure control has been good. [facility] Work Phone: Hospital course Narrative No data available for this section [facility] Progress note No data available for this section [facility] Reason for referral (narrative)* Consultation (Routine) - Authorized Specialty Diagnoses / Procedures Referred By Lino t Referred To Contact Cardiology Diagnoses Paroxysmal atrial fibrillation (CMS/HCC) Procedures Follow Up In Cardiology Adrien Avalos, DIRECTOR OF DISTRIBUTION-CUSTOM BOW MAKER [facility] [address], [address] [id number] Michael Ramos, DO [facility] [address], [address] [phone] Referral ID Status Reason Start Date Expiration Date V isits Requested Visits Authorized [id number] Authorized 03/10/2023 03/09/2024 1 1 * Cardiovascular (Routine) - Pending Review Specialty Diagnoses / Procedures Referred By Contac t Referred To Contact Cardiology Diagnoses Paroxysmal atrial fibrillation (CMS/HCC) Procedures Holter Or Event Dough Panner Adrien Avalos APRN-CNP [address], [place] [address] [place] [id number] Referral ID Status Reason Start Date Expiration Date V isits Requested Visits Authorized [id number] Pending Review 03/10/2023 03/09/2024 1 1 [facility] Work Phone: Reason for referral (narrative)* Consultation (Routine) - Authorized Specialty Diagnoses / Procedures Referred By Contac t Referred To Contact Cardiology Diagnoses Paroxysmal atrial fibrillation (CMS/HCC) Procedures Follow Up In Cardiology Michael Ramos DO [address], [place] [address] [place] [id number] Adrien Avalos APRN-CNP [address], [address] [address] Referral ID Status Reason Start Date Expiration Date V isits Requested Visits Authorized [id number] Authorized 05/18/2023 05/17/2024 1 1 [facility] Work Phone: Chief Complaint JANELLE BURT is [...] sister has been taking care of her [employer]. She has underlying accelerated hypertension, known chronic [...] sister has been taking care of her [employer]. She has underlying accelerated hypertension, known chronic [...] disease) stage 3, GFR 30-59 ml/min Hyperlipidemia [id number] Hyponatremia Hypoparathyroidism Chief Complaint routine Reason for [...] section and content) Reason Comments Hospital Follow-up [facility] 01/28 Specialty Diagnoses / Procedures Referred By Contac t Referred To Contact Cardiology Diagnoses Chest pain, unspecified type Procedures Follow Up In Cardiology Michael Ramos, DO [facility] [facility] [address], [place] [address] [place] [phone] Michael Ramos, DO [facility] [facility] [address], [address] [address] Referral ID Status Reason Start Date Expiration Date V isits Requested Visits Authorized [id number] Authorized 01/28/2023 01/28/2024 1 1 Reason Comments Follow-up Never had [facility] [place]. Specialty Diagnoses / Procedures Referred By Contac t Referred To Contact Cardiology Diagnoses Paroxysmal atrial fibrillation (CMS/HCC) Procedures Follow Up In Cardiology Adrien Avalos, DIRECTOR OF DISTRIBUTION-CUSTOM BOW MAKER [facility] [address], [place] [address] [place] [id number] Michael Ramos, DO [facility] [facility] [address], [place] [address] [place] [id number] Referral ID Status Reason Start Date Expiration Date V isits Requested Visits Authorized [id number] Authorized 03/10/2023 03/09/2024 1 1 Reason Comments Follow-up 1 year Specialty Diagnoses / Procedures Referred By Contac t Referred To Contact Cardiology Diagnoses Accelerated hypertension Procedures Follow Up In Cardiology Michael Ramos Phone: tel: fax: Michael Ramos DO Phone: tel: fax: Referral ID Status Reason Start Date Expiration Date V isits Requested Visits Authorized [id number] Authorized 01/14/2023 01/14/2024 1 1 Reason Comments [...] Oconnor MD Other Provider Active Camryn Bosch [facility] Other Provider Active Svitlana Reyes MD Other Provider Active Team Status: Inactive Member Role Status Dates Antonino Gustafson MD Primary Care Provider Active Ortiz Cota DO Emergency Provider Active Team Status: Active Member Role Status Dates Antonino Gustafson MD Primary Care Provider Active Willie Lyon DO Emergency Provider Active Elsa Amin MD Admit Provider, Attending Provider Active Chaplaincy Relationship Specialty Start Date End Date Antonino Gustafson MD [facility] General 03/29/1998 Chaplaincy Relationship Specialty Start Date End Date Antonino Gustafson MD PCP - General 03/29/1998 Team Status: Inactive Member Role Status Dates Antonino Gustafson MD Primary Care Provider Active Start: December 22, 2023 End: December 22, 2023 Faby Lira APRN Attending Provider Active S tart: December 22, 2023 End: December 22, 2023 Chaplaincy Relationship Specialty Start Date End Date Antonino Gustafson MD [address] [place] [id number] [facility] General 03/29/1998 Team Status: Active Member Role [...] February 17, 2024 End: February 17, 2024 Chaplaincy Relationship Specialty Start Date End Date Antonino Gustafson MD [address] [place] [phone] [facility] Family Medicine 03/06/24 Chaplaincy Relationship Specialty Start Date End Date Antonino Gustafson MD [address] [place] [phone] PCP - General Family Medicine 03/06/24 Goals (unrecognized section and content) Goals may be documented in a n alternate section INFORMATION SOURCE (unrecogn ized section and content) DATE CREATED AUTHOR 03/21/2022 [facility] DATE CREATED AUTHOR AUTHOR'S ORGANIZ ATION 03/21/2022 [employer] DATE CREATED AUTHOR AUTHOR'S ORGANIZ ATION 06/05/2022 [facility] DATE CREATED AUTHOR AUTHOR'S ORGANIZ ATION [facility] DATE CREATED AUTHOR AUTHOR'S ORGANIZ ATION 03/02/2024 [facility] DATE CREATED AUTHOR AUTHOR'S ORGANIZ ATION 03/09/2024 [facility] EPIC DATE CREATED AUTHOR AUTHOR'S ORGANIZ ATION 03/09/[address] [facility] DATE CREATED AUTHOR AUTHOR'S ORGANIZ ATION 03/10/2024 [facility] DATE CREATED AUTHOR AUTHOR'S ORGANIZ ATION 03/11/2024 [facility] FOR RECORDS PERTAINING TO PATIENTS WHO [...] BE BASED ON THE PRIMARY CLINICAL RECORDS. [email or web address] provides no warranty or guarantee of the accuracy or completeness of information in this document.
[2024-03-21 09:39] LABS: Free T4 1.46 ng/dL (0.76-1.46)
[2024-03-21 09:44] LABS: Thyroid Stimulating Hormone 2.019 uIU/mL (0.358-3.740)
== END 2024-03-21 08:26 | disposition home or self-care (01) ==
LOC: LAB 08:26
PROVIDERS: PCP Family Medicine; Visit Provider Family Medicine
DX: E03.9 Hypothyroidism, unspecified (principal)
CPT/HCPCS: 36415; 84439; 84443

== ENCOUNTER 2024-06-29 07:30 | Outpatient (OUT) | payer MEDICARE, OTHER, SELFPAY ==
[2024-06-29 08:15] LABS: Alanine Aminotransferase 15 U/L (14-59); Albumin Level 3.3 g/dL (3.4-5.0); Alkaline Phosphatase 66 U/L (46-116); Aspartate Amino Transferase 19 U/L (15-37); Bilirubin Direct 0.2 mg/dL (0.0-0.2); Bilirubin Total 0.5 mg/dL (0.2-1.0); Chol HDL Ratio 2.2; Cholesterol 126 mg/dL (<=200); Globulin 3.2 g/dL; HDL Cholesterol 56 mg/dL (40-60); LDL Cholesterol Calculated 54.6 mg/dL; Total Protein 6.5 g/dL (6.4-8.2); Triglycerides 77 mg/dL (<=150); VLDL CHOLESTEROL 15.4 mg/dL
== END 2024-06-29 07:31 | disposition home or self-care (01) ==
PROVIDERS: PCP Family Medicine; Visit Provider Nurse Practitioner Family
DX: Z51.81 Encounter for therapeutic drug level monitoring (principal); Z79.899 Other long term (current) drug therapy
CPT/HCPCS: 36415; 80061; 80076

== ENCOUNTER 2024-08-08 08:50 | Outpatient (RCR) | payer MEDICARE, OTHER, SELFPAY | END 2024-09-27 10:35 | disposition home or self-care (01) | LOC: ST 08:50 | PROVIDERS: PCP Family Medicine; Visit Provider Physical Medicine & Rehabilitation | DX: G40.89 Other seizures (principal); I69.314 Frontal lobe and executive function deficit following cerebral infarction; I63.9 Cerebral infarction, unspecified | CPT/HCPCS: 92507; 92523 ==

== ENCOUNTER 2024-08-11 13:49 | Outpatient (RCR) | payer MEDICARE, OTHER, SELFPAY | END 2024-09-15 08:32 | disposition home or self-care (01) | LOC: OT 13:49 | PROVIDERS: PCP Family Medicine; Visit Provider Physical Medicine & Rehabilitation | DX: G40.89 Other seizures (principal) | CPT/HCPCS: 97166; 97530; 97535 ==

== ENCOUNTER 2024-08-11 13:50 | Outpatient (RCR) | payer MEDICARE, OTHER, SELFPAY | END 2024-09-15 08:32 | disposition home or self-care (01) | LOC: PT 13:50 | PROVIDERS: PCP Family Medicine; Visit Provider Physical Medicine & Rehabilitation | DX: G40.89 Other seizures (principal); Z91.81 History of falling | CPT/HCPCS: 97110; 97112; 97161; 97530 ==

== ENCOUNTER 2024-08-14 08:16 | Emergency (ER) | payer MEDICARE, OTHER, SELFPAY ==
[2024-08-14 08:23] VITALS: PULSE 60; TEMP 36.7; O2SAT 98; BMI 22.5
[2024-08-14 08:30] VITALS: BP 232/92
[2024-08-14] MEDS: LOSARTAN POTASSIUM 25 MG TABLET PO (08:53)
[2024-08-14] MEDS: METOPROLOL TARTRATE 50 MG TABLET PO (08:53)
--- NOTE | 2024-08-14 10:01 | ED_ITS ---
HPI - Extremity Problem General Chief complaint: Extremity Problem, Nontraumatic Stated complaint: POSSIBLE BLOOD CLOT L LEG Time Seen by Provider: 08/14/24 08:24 Source: patient Mode of arrival: Wheelchair Limitations: no limitations History of Present Illness HPI Narrative: The patient is coming to the ER with a left sided calf pain that is according to her has been there for 2 days and she does not have any history of any long strep or any immobilization, patient mentioned that she is worried about the blood clot and she is here to be evaluated for that She have no history of blood clots but she has had multiple health issues in the last few months and she is worried that this is another 1 The patient denies any fall trauma the pain is not consistently there all the time Related Data Home Medications ?Medication ?Instructions ?Recorded ?Confirmed aspirin 81 mg tablet,delayed 81 mg PO DAILY 10/23/22 0 08/14/24 release (Adult Low Dose Aspirin) fenofibrate 54 mg tablet 54 mg PO DAILY 10/23/2207/27 levothyroxine 112 mcg tablet 112 mcg PO DAILY 10/23/22 08/14/24 metoprolol tartrate 50 mg tablet 50 mg PO DAILY 08/14/24 nitroglycerin 0.4 mg sublingual 0.4 mg sublingual Q5M 02/05/24 08/14/24 tablet apixaban 5 mg tablet (Eliquis) mg 08/14/24 atorvastatin 40 mg tablet mg 08/14/24 levetiracetam 500 mg tablet mg PO 08/14/24 valsartan 160 mg tablet mg 08/14/24 Previous Rx's ?Medication ?Instructions ?Recorded xaugzurwjf-tfvtkihbbnydo-rabadwqo 1 cap PO Q6H PRN augustine n 5 days #20 02/05/24 50 mg-300 mg-40 mg capsule caps (Fioricet) Allergies Allergy/AdvReac Type Severity Reaction Status Date / Time amlodipine (From Norvasc) Allergy Severe Rash Verified 08/14/24 08:23 ciprofloxacin Allergy Severe Rash Verified 08/14/24 08:23 clonidine (From Catapres) Allergy Severe Rash Verified 08/14/24 08:23 lisinopril Allergy Severe Rash Verified 08/14/24 08:23 Hlacjff-VGW-DgS Reductase Allergy Severe Rash Verified 08/14/24 08:23 Inhibitor medro dose pack Allergy Severe Rash Uncoded 08/14/24 08:23 Review of Systems ROS Status of ROS 10 or more systems reviewed and unremark able except as noted in history and below [facility] Medical History (Updated 08/14/24 @ 10:04 by Yadira Torrez MD) Hypothyroidism ?E03.9 - Hypothyroidism, unspecified (ICD-10) Hypertension ?I10 - Essential (primary) hypertension (ICD-10) Social History Little interest or pleasure in doing things: not at all Feeling down, depressed, or hopeless: not at all Exam Narrative Exam Narrative: Nurses notes and vital signs reviewed and patient is not hypoxic. General: Well-appearing and in no apparent distress. Skin: Warm, dry, no pallor noted. No rash. Head: Normocephalic, atraumatic. Neck: Supple, non-tender. Eye: Pupils are equal, round and EOMI. No scleral icterus. Ears, Nose, Mouth, and Throat: TM are clear, no nasal mucosal hypertrophy. Oral mucosa is moist, no posterior oropharynx erythema, uvula is mid-line Cardiovascular: Regular Rate and Rhythm without murmur, gallop or rub. Respiratory: No accessory muscle use or respiratory distress. Lungs are clear to auscultation, no wheezing, rales or rhonchi Chest Wall: no tenderness Back: No midline thoracic or lumbar vertebral tenderness. No CVA tenderness Musculoskeletal: normal ROM, no calf or popliteal tenderness, no lower extremity edema/swelling, patient have some tenderness in the left calf mostly with pressure GI: Abdomen is soft, non-distended. Normal bowel sounds. No masses appreciated. No tenderness to palpation. No rebound, guarding, or rigidity noted. Neurological: A&O x4. No cranial nerve dysfunction observed. No truncal ataxia. Moves all extremities. Sensation intact. Psychiatric: Cooperative and interactive. Normal mood and affect. Constitutional Vital Signs, click to edit/add: Last Vital Signs Temp 98.0 F 08/14/24 08:23 Pulse 60 08/14/24 08:23 Resp 18 08/14/24 08:23 BP 232/92 H 08/14/24 08:30 Pulse Ox 98 08/14/24 08:23 O2 Del Method Room Air 08/14/24 08:23 Course Vital Signs Vital signs: Vital Signs Temperature 98.0 F 08/14/24 08:23 Pulse Rate 60 05/19/25 08:23 Respiratory Rate 18 08/14/24 08:23 Pulse Oximetry 98 08/14/24 08:23 Oxygen Delivery Method Room Air 08/14/24 08:23 Temperature 98.0 F 08/14/24 08:23 Pulse Rate 60 08/14/24 08:23 Respiratory Rate 18 08/14/24 08:23 Blood Pressure 232/92 H 08/14/24 08:30 Pulse Oximetry 98 08/14/24 08:23 Oxygen Delivery Method Room Air 08/14/24 08:23 MDM - Extremity (Nontraumatic) MDM Narrative Medical decision making narrative: Ultrasound of the left lower extremity shows no DVT and the patient pain is not consistently there all the time and could be just muscular She will treat that with Tylenol and rest and that she will follow-up with her primary care Her blood pressure was noted to be elevated but she did not take her blood pressure medication this morning and once we provided her with the medication blood pressure was trending down Patient was instructed about the importance of taking her blood pressure medication on time The patient is to follow up with primary care physician in next 2-3 days or to return to the emergency department should any of the signs or symptoms worsen or new symptoms develop. The patient agrees with the following Diagnosis and Treatment plan and the patient will be discharged home. Discharge Plan Discharge Chief Complaint: Extremity Problem, Nontraumatic Clinical Impression: Calf pain Patient Disposition: Home, Self-Care Time of Disposition Decision: 10:04 Condition: Good Prescriptions / Home Meds: No Action nitroglycerin 0.4 mg tablet, sublingual 0.4 mg sublingual Q5M Rx Instructions: do not exceed 3 doses per episode alukgkzngj-zvnzkvndeqivl-ypet [Fioricet] 50-300-40 mg capsule 1 cap PO Q6H PRN (Reason: pain) 5 Days Qty: 20 0RF fenofibrate 54 mg tablet 54 mg PO DAILY levothyroxine 112 mcg tablet 112 mcg PO DAILY metoprolol tartrate 50 mg tablet 50 mg PO DAILY aspirin [Adult Low Dose Aspirin] 81 mg tablet,delayed release (DR/EC) 81 mg PO DAILY atorvastatin 40 mg tablet levetiracetam 500 mg tablet PO Eliquis 5 mg tablet valsartan 160 mg tablet Print Language: Indonesian Instructions: Leg Pain (ED) Referrals: Hoda Talbot MD [Primary Care Provider, [facility]] - 1 week Discharge Date/Time: 08/14/24 10:16
[2024-08-14] MEDS: ACETAMINOPHEN 325 MG TABLET 650 MG PO (10:08)
== END 2024-08-14 10:16 | disposition home or self-care (01) ==
PROVIDERS: Emergency Provider Emergency Medicine; PCP Family Medicine
DX: M79.662 Pain in left lower leg (principal); I10 Essential (primary) hypertension; Z79.899 Other long term (current) drug therapy
CPT/HCPCS: 93971; 99285

== ENCOUNTER 2025-01-09 17:40 | Observation (INO) | payer MEDICARE, OTHER, SELFPAY ==
[2025-01-09] VITALS (48 sets, daily range): BP systolic 165–214; BP diastolic 57–116; PULSE 51–111; TEMP 36.9; O2SAT 99; BMI 21.0
--- OUTSIDE RECORDS SUMMARY | 2025-01-09 17:54 | XMS_ITS | CCD ---
Author Organization [facility] Care Team Providers Care Access Clinician Name Role Phone Antonino Gustafson Unavailable Unavailable Unavailable Bhavna, Liliya Unavailable MD Antonino Gustafson Primary Care Provider [phone] DO Ortiz Cota Emergency Provider [phone] Sj, Dr. Antonino Macedo Primary Care Unav ailevonne Avalos, RE Estes Attending Unavailable Richard, Dr. Michael Ram Referring Unava ilable Richard, Dr. Michael Ram Referring Unava ilable Richard, Dr. Michael Ram Attending Unava ilable Gustafson, Dr. Antonino Macedo Primary Care Unav ailable [...] Care Provider DO Willie Lyon Emergency Provider [phone] MD Elsa Amin Admit Provider MD Elsa Amin Attending Provider [phone] MD Antonino Gustafson Primary Care Provider DO Willie Lyon Emergency Provider [phone] MD Elsa Amin Admit Provider MD Elsa Amin Attending Provider LILIANE Reyes Other Provider Unavailable DO Sherron Ramos Other Provider MD Ludwin Arias Other Provider [phone] MD Michael Carrasco Other Provider [phone] MD Chance Dennison Other Provider [phone] MD Juan Martin Other Provider AIMEE Cha Other Provider [phone] MD Allie Flores Other Provider MD Reagan Bello Najoe Other Provider MD Adrienne Oconnor Other Provider Danitza [facility] Camryn Harris Other Provider [phone] MD Svitlana Reyes Other Provider [phone] Antonino Gustafson MD Primary Care Provider Antonino Gustafson MD Primary Care Provider Antonino Gustafson MD Primary Care Provider Antonino Gustafson MD Primary Care Provider Rolando Zarco Attending Unavailable Willie Kearney Attending Unavailable Willie Kearney Admitting Unavailable Divernon, Kamar Consulting Unavailable MD Kamar Escobar Consulting Unavailable Divernon, Kamar Consulting Unavailable Divernon, Kamar Consulting Unavailable Divernon, Kamar Consulting Unavailable Divernon, Kamar Consulting Unavailable Divernon, Kamar Consulting Unavailable Divernon, Kamar Consulting Unavailable Divernon, Kmaar Consulting Unavailable Willie Kearney Attending Unavailable Shawn, Kamar Consulting Unavailable Willie Kearney Admitting Unavailable MD Kamar Escobar Consulting Unavailable Divernon, Kamar Consulting Unavailable Divernon, Kamar Consulting Unavailable Divernon, Kamar Consulting Unavailable Divernon, Kamar Consulting Unavailable Divernon, Kamar Consulting Unavailable Divernon, Kamar Consulting Unavailable Divernon, Kamar Consulting Unavailable ANTONINO GUSTAFSON Primary Care Physician Michael Worthington Attending Unavailable Antonino Gustafson MD Primary Care Provider Asad Mcnally MD Emergency Provider Bradford MORA, Jon Admit Provider Bradford MORA, Jon Attending Provider Jovani Sibley MD Attending Provider Selena Ch Other Provider Unavailable Ashely PhD, Dani Other Provider Nancie Leigh DO Other Provider Shawn MORA, Kamar Other Provider Yuliana CHAN, Guido Horn Other Provider Abdulkadir Amaro DO Other Provider Rochelle Greene APRN Other Provider Shorty LARDER COOK-C, Marina Melissa Other Provider Asa YU-PERSONAL COMPANION-C, Amanda Rand Other Provider Sylvie Florez DO Other Provider Jenny Wilson MD Other Provider Jhon Abreu MD Other Provider Enedina Cain APRN Other Provider Belelinor CHAN, Shawn L Other Provider [phone] Dev Jacobsen MD Other Provider [phone] Dev Jacobsen MD Admit Provider Dev Jacobsen MD Attending Provider Beryl MOMIN, Lucía Other Provider Unavailable Lowell RN, Nancy Other Provider Unavailable Ajit RN, Yolanda Other Provider Unavailable Joel MOMIN, Rachel Other Provider Unavailable Bogdan RN, Cleo Other Provider Unavailable Brady RN, Neeru Other Provider Unavailable Susan MORA, Jhony Other Provider Ada Marcano DO Other Provider Robin Jenkins MD Other Provider Dale CHAN, Duane Other Provider Monique MORA, Jerome Other Provider [phone] Pancho MORA, Gloria Other Provider Shad CHAN, Stu Other Provider Nestor MORA, Steve Other Provider Unavailable Kayla Lacy APRN Other Provider Barb MORA, Zita Other Provider [phone] Db MORA, Joe Other Provider Brennan MORA, Elsa Other Provider Unavailable Endy Blancas MD Other Provider Stu Alegria DO Other Provider Andreina Lopez MD Other Provider Bimal Green MD Other Provider Manpreet LARDER COOK-C, Ivette Kapadia Other Provider Dimas YU, Jose Horn Other Provider Unavailable Curly Smalls MD Other Provider Yousuf Gracia MD Other Provider Jaxson Weller MD Other Provider Cherry MORA, Zora Other Provider Unavailable Lino Lala MD Other Provider Michelle Stevens DO Other Provider Maverick Lopez DO Other Provider Luz Marina Gonzalez APRN Other Provider Chico Aragon DO Other Provider [phone] Stephanie MORA, Tamica Horn Other Provider Darlyn Avalos APRN Other Provider Suzi Russo APRN Other Provider Niru MORA, Martín Other Provider Unavailable Marlon Morgan MD Other Provider Edwards DO, Maxx T Other Provider Vazquez CHAN, Zahra Other Provider Janee MORA, Edgar Loco Other Provider Raúl Gardner MD Other Provider Jolene YU, Rochelle Other Provider Unavailable Bradford MORA, Jon Other Provider Edgardo MORA, Joshua Other Provider Ziggy MORA, Jhon Beach Other Provider Michelle MORA, Steve Melissa Other Provider Jovani Sibley MD Other Provider Yumi Dover APRN Other Provider [phone] Christine Perez APRN Other Provider Johnna MOMIN, Rose Other Provider Unavailable Dev Jacobsen Attending UnavailLucía Yanes Consulting Unavailable Dev Jacobsen Admitting UnavailAntonino Cr Primary Care Unavailable Gearann-marie, Nancy Consulting Unavailable Denslow, Yolanda Consulting Unavailable Joel, Rachel Consulting Unavailable Ross, Cleo Consulting Unavailable Brady, Neeru Consulting Unavailable Massouh, Rafik Consulting Unavailable Krys, Ronobir Consulting Unavailable Alice, Robin Consulting Unavailable Duane Hunter Consulting UnavailJerome Mehta Consulting Unavailable Gloria Deleon Consulting Unavailable Stu Kulkarni Consulting Unavailable Steve Baez Consulting Unavailable Kayla Lacy Consulting Unavailbernardo rand Wassojustice, Marwan Consulting Unavailable Joe Ace Consulting Unavailable Elsa Amin Consulting Unavailable Endy Blancas Consulting Unavailable Stu Alegria Consulting Unavailable Andreina Lopez Consulting Unavailable Bimal Green Consulting Unavailable Ivette Case Consulting Unavailable Jose Cochran Consulting Unavailable Curly Smalls Consulting Unavailab Yousuf Dean Consulting Unavailable Jaxson Weller Consulting Unavailable Zora Carey Consulting Unavailable Lino Lala Consulting Unavailable Michelle Stevens Consulting Unavailable Maverick Lopez Consulting Unavailable Luz Marina Gonzalez Consulting Unavailable Chico Aragon Consulting Unavailable M[facility]oma[facility] Consulting Unavailable Darlyn Avalos Consulting Unavailable Suzi Russo Consulting Unavailable Martín Marrufo Consulting Unavailable Marlon Morgan Consulting Unavailable Maxx Edwards Consulting Unavailable Zahra Shukla Consulting Unavailable Edgar Weller Consulting Unavailable Raúl Gardner Consulting Unava ilable Rochelle Fernández Consulting Unavailable Bradford Mohamabeto Consulting Unavailable Joshua Reynoso Consulting Unavailable Jhon Trinh Consulting Unavailable Steve Martinez Consulting Unavailable Jovani Sibley Consulting Unavailable Yumi Dover Consulting Unavailable Bolortega-Christine Ann Consulting Unavaila Rose Rich Consulting Unavailable Antonino Gustafson Attending Unavailable Antonino Gustafson Admitting Unavailable Jovani Sibley Attending Unavailable Selena Ch Consulting Unavailable Bradford Mohamabeto Admitting Unavailable Antonino Gustafson Primary Care Unavailable Dani Lund Consulting Unavailable Nancie Leigh Consulting Unavailable Kamar Escobar Consulting Unavailable Guido Bridges Consulting Unavailab Abdulkadir Samaniego Consulting Unavailable Rochelle Greene Consulting Unavailable Marina Burt Consulting Unavailable Amanda Bray Consulting Unavailable Sylvie Florez Consulting Unavailable Jenny Wilson Consulting Unavailable Jhon Abreu Consulting Unavailable Enedina Cain Consulting Unavailable Shawn Merchant Jr Consulting UnavailDev Ibarra Consulting UnavailAntonino Cr MD Primary Care Provider [phone] PALMA RODRIGUEZ Attending Unavailable PALMA RODRIGUEZ Attending Unavailable AMANDA BRAY Attending Unavailable ANTONINO GUSTAFSON Referring Unavailable Antonino Gustafson MD Primary Care Provider [phone] Asa VARGASN-PERSONAL COMPANION-C, Amanda Rand Attending Provider Jhony Davis MD Other Provider Sanam Barrientos APRN Other Provider Guido Torres MD Other Provider Polly MORA, Karan Erazo Other Provider Lauren MORA, Abdulkadir Kate Other Provider Ferny Barksdale DO Other Provider Yosvany DOAmari Other Provider Raymond MORA, Samra Attending Provider Raymond MORA, Samra Other Provider Aram MORA, Angel Rand Other Provider Pamela MORA, Hayder Other Provider Chris MORA, Aneudy Harris Other Provider [phone] Jovani Sibley MD Other Provider Sylvie Florez DO Attending Provider [phone] Jhon Abreu MD Attending Provider Enedina Cain APRN Attending Provider Nicole Lang CMA Attending Provider UnavailAntonino Cr MD Attending Provider [phone] Nancie Leigh DO Attending Provider MICHAEL RAMOS S Attending Unavailable GUSTAFSON, ANTONINO E Primary Care Unavailable RICHARD, MICHAEL S Referring Unavailable RICHARD, MICHAEL S Attending Unavailable RICHARD, MICHAEL S Referring Unavailable GUSTAFSON, ANTONINO E Primary Care Unavailable RICHARD, MICHAEL S Referring Unavailable GUSTAFSON, ANTONINO E Primary Care Unavailable RICHARD, MICHAEL S Attending Unavailable GUSTAFSON, ANTONINO E Primary Care Unavailable RICHARD, MICHAEL S Referring Unavailable RICHARD, MICHAEL S Attending Unavailable RICHARD, MICHAEL S Referring Unavailable GUSTAFSON, ANTONINO E Primary Care Unavailable RICHARD, MICHAEL S Attending Unavailable RICHARD, MICHAEL S Referring Unavailable GUSTAFSON, ANTONINO E Primary Care Unavailable Antonino Gustafson MD Primary Care Provider Nancie Leigh DO Attending Provider [phone] Allergies Allergy Classification Reported Allergen(s) Allergy Type Date of Onset Reaction(s) Facility (20 sources) amLODIPine; Translations: [Norvasc] Drug Allergy 023 Itching [facility] (11 sources) Angiotensin Converting Enzyme (Tati) Inhibitors; Translations: [TATI Inhibitors] Allergy to drug (finding) 023 [facility] 3 Repository (20 sources) cloNIDine; Translations: [Latjdbiw-RQR-7 PTWK] Drug Allergy 023 Shortness of breath [facility] 250 DO Work Phone: (13 sources) Hmg-Coa Reductase Inhibitors (Statins); Translations: [Statins] Allergy to drug (finding) Myalgia, Unknown [facility] 250 DO Work Phone: (20 sources) hydrALAZINE; Translations: [hydrALAZINE] Drug Allergy 022 Diarrhea [facility] (20 sources) Lisinopril; Translations: [lisinopril] Drug Allergy 022 Rash [facility] (10 sources) methylPREDNISolone; Translations: [Medrol (Nestor) TABS] Drug Allergy Anaphylaxis [facility] 250 DO Work Phone: (20 sources) Sulfamethoxazole; Translations: [sulfa] Drug Allergy 023 Rash [facility] 250 DO Work Phone: (20 sources) Ciprofloxacin Drug Allergy 024 Unknown, Comment:joint pain [facility] (8 sources) cloNIDine Drug Allergy Unknown [email or web address] Other (20 sources) methylPREDNISolone; Translations: [METHYLPREDNISOLONE] Drug Allergy 022 Anaphylaxis [facility] (18 sources) amLODIPine; Translations: [amlodipine] Drug Allergy 022 Unknown Reaction [facility] (18 sources) cloNIDine; Translations: [clonidine] Drug Allergy 022 Unknown Reaction [facility] (17 sources) Sulfonamides (Antibiotic); Translations: [Sulfa (Sulfonamide Antibiotics)] Allergy to substance Unknown Reaction [facility] (17 sources) Dnvprhm-UZK-BuL Reductase Inhibitor; Translations: [Vnimecw-ZGQ-YhF Reductase Inhibitor] Allergy to substance Unknown Reaction [facility] (1 source) Amino Acids Drug Allergy [facility] Repository (1 source) amLODIPine Drug Allergy [facility] Repository (2 sources) black walnut pollen extract; Translations: [QNOLIHM-LGE-KJR REDUCTASE INHIBITORS] Drug Allergy [facility] Repository (1 source) hydrALAZINE Drug Allergy [facility] Repository (1 source) methylPREDNISolone Drug Allergy [facility] Repository (1 source) Sulfonamides (Antibiotic) Drug allergy (disorder) [facility] Repository (5 sources) Statins Depletion *DIETARY PRODUCTS/DIETARY MANAGE Propensity to adverse reactions Unknown [employer] [facility] [employer] [facility] [employer] Other (5 sources) Sulf-10 Drug allergy Unknown [email or web address] Other (7 sources) Angiotensin-convertin g enzyme inhibitor agent Drug Allergy 023 Rash [facility] (7 sources) HMG-CoA reductase inhibitor Drug Allergy 023 Myalgia [facility] Work Phone: (8 sources) Angiotensin-convertin g enzyme inhibitor agent Drug Allergy 023 Rash [facility] (8 sources) Simvastatin Allergy to substance [facility] (9 sources) Sulfamethoxazole; Translations: [SULFAMETHOXAZOLE] Allergy to substance 023 [facility] (8 sources) Sulfamethoxazole / Trimethoprim Drug Allergy [facility] (7 sources) No Known Medication Allergies; Translations: [No Known Medication Allergies] Propensity to adverse reactions (disorder) [facility] Repository (1 source) Ciprofloxacin Drug Allergy [facility] Repository (1 source) hydrALAZINE Drug Allergy [facility] Repository (1 source) Lisinopril Drug Allergy [facility] Repository (1 source) methylPREDNISolone Drug Allergy [facility] Repository Medications Current Medications Medication Drug Class(es) Dates Sig (Normalized) Sig (Original) acetaminophen 300 mg / butalbital 50 mg / caffeine 40 mg oral capsule (8 sources) Barbiturate, Central Nervous System Stimulant, Methylxanthine Start: 02-05-2024 take 1 capsule by mouth every six hours as needed for pain butalbital-acetam inophen-caffeine (Fioricet) 50-300-40 MG capsule TAKE 1 CAPSULE BY MOUTH EVERY 6 HOURS NEEDED FOR PAIN FOR 5 DAYS 02/05/2024 Active aspirin 81 mg delayed release oral tablet (20 sources) Platelet Aggregation Inhibitor, Nonsteroidal Anti-inflammatory Drug Start: 09-27-2024 take 1 tablet by mouth every other day aspirin 81 mg EC tablet Indications: ASHD (arteriosclerotic heart disease) , Paroxysmal atrial fibrillation (Multi) Take 1 tablet (81 mg) by mouth every other day. 09/27/2024 Active Start: 03-12-2017 End: 09-27-2024 Aspirin (Neli Low Dose Aspi rin) 81 mg Tablet,Delayed Release (Dr/Ec) Active 81 MG PO Daily March 12, 2017 1:00am Complies with drug therapy take 1 tablet by summer th every twenty-four hours Aspirin 81 MG 1 tablet Orally Once a day Active atorvastatin 40 mg oral tablet (20 sources) HMG-CoA Reductase Inhibitor Start: 03-07-2024 End: 04-11-2025 take 1 tablet by mouth once daily Atorvastatin 40 mg tablet Active 40 MG PO Daily March 14, 2024 1:00am Complies with drug therapy Calcium + D 315-200 MG-UNIT (8 sources) take 1 tablet by mouth once daily at mealtime Calcium + D 315-200 MG-UNIT 1 tablet with meals Orally daily Active take 1 tablet by summer th twice daily at mealtime Calcium + D 315-200 MG-UNIT 1 tablet wit h meals Orally Twice a day Active CALCIUM CARBONATE-VITAMIN D3 ORAL (4 sources) End: 04-05-2024 take 1 tablet by mouth once daily CALCIUM CARBONATE-VITAMIN D3 ORAL Take 1 tablet by mouth once daily. 04/05/2024 Discontinued (Discontinued by another clinician) take 1 tablet by mouth once ila y CALCIUM CARBONATE-VITAMIN D3 ORAL Take 1 tablet by mouth once daily. Active take 1 tablet by mouth once ila y CALCIUM CARBONATE-VITAMIN D3 ORAL Take 1 tablet by mouth once daily. 0 Active diclofenac sodium 0.01 mg/mg topical gel (6 sources) Nonsteroidal Anti-inflammatory Drug Start: 08-01-2024 apply 2 g topically three times daily as needed for pain Diclofenac Sodium 1 % Gel Active 2 GM TOPICAL Three times daily as needed for Pain August 01, 2024 12:00am Complies with drug therapy Start: 08-01-2024 apply 2 g topically three times daily as needed for pain Diclofenac Sodium 1 % Gel Active 2 GM TOPICAL Three times daily as needed for Pain August 01, 2024 12:00am fenofibrate 54 mg oral tablet (20 sources) Peroxisome Proliferator Receptor alpha Agonist Start: 03-12-2017 End: 04-11-2025 take 1 tablet by mouth once daily Fenofibrate 54 mg tablet Active 54 MG PO Daily March 12, 2017 1:00am Complies with drug therapy levETIRAcetam 500 mg oral tablet (18 sources) Start: 07-25-2024 End: 01-03-2025 take 1 tablet by mouth twice daily Levetiracetam 500 mg tablet Active 500 MG PO Twice daily 180 January 03, 2025 1:35pm Complies with drug therapy levothyroxine sodium 0.1 mg oral tablet (20 sources) l-Thyroxine Start: 03-07-2024 take 1 tablet by mouth once daily levothyroxine 100 mcg (0.1 mg) Tab 100 mcg = 1 tab(s), Oral, Daily, # 90 tab(s), Refills(s) 0 Start Date: 03/07/24 Status: Ordered Start: 12-17-2023 End: 04-11-2025 take 1 tablet by mouth once daily Levothyroxine 100 mcg tablet Active 100 MCG PO Daily March 28, 2024 11:37am Complies with drug therapy Start: 09-06-2023 End: 03-28-2024 take 1 tablet by mouth once daily in the morning Levothyroxine 100 mcg tablet Discontinued 0 .ROUTE .COMPLEX 90 December 17, 2023 11:32am March 28, 2024 11:37am TAKE 1 TABLET BY MOUTH IN THE [...] 100 mcg tablet Discontinued 0 .ROUTE .COMPLEX 90 July 16, [...] 16, 2023 1:52pm Start: 03-12-2017 End: 01-29-2023 Levothyroxine 100 mcg tablet Discontinued 112 MCG PO Daily March 12, 2017 1:00am January 29, 2023 10:46am Start: 03-12-2017 End: 01-29-2023 take 112 ug [...] days Active take 1 capsule by mo [facility] once daily before breakfast Levothyroxine Sodium 88 MCG Oral Capsule TAKE 1 CAPSULE BY MOUTH EVERY MORNING BEFORE BREAKFAST ON EMPTY STOMACH Quantity: 0 Refills: 0 Ordered: 09-Jan-2021 DO Active nitroglycerin 0.4 mg sublingual tablet (20 sources) Nitrate Vasodilator Start: 03-07-2024 nitroglyce rin 0.3 mg sublingual tablet 0.3 mg = 1 tab(s), SubLingual, q5min, PRN for chest pain, # 100 tab(s), Refills(s) 0 Start Date: 03/07/24 Status: Ordered Start: 01-28-2023 End: 07-20-2025 Nitroglycerin 0.4 mg tablet, sublingual Active 0.4 MG SUBLINGUAL Q5M as needed for chest pain January 28, 2023 12:00am do not exceed 3 doses per episode Complies with drug therapy Completed/Discontinued Medications Medication Drug Class(es) Dates Sig (Normalized) Sig (Original) acetaminophen 500 mg oral tablet (6 sources) Start: 08-01-2024 End: 09-20-2024 take 1 tablet by mouth every four hours as needed for pain Acetaminophen 500 mg Tablet Discontinued 500 MG PO Q4H as needed for Pain August 01, 2024 12:00am September 20, 2024 10:40am apixaban 5 mg oral tablet (20 sources) Factor Xa Inhibitor Start: 02-16-2024 End: 04-11-2025 take 1 tablet by mouth twice daily Apixaban (Eliquis) 5 mg tablet Discontinued 5 MG PO Twice daily March 14, 2024 1:00am May 22, 2024 3:07pm Calcium (10 sources) Phosphate Binder, Calcium Calcium 600 + D TABS TAKE 1 TABLET DAILY. Quantity: 0 Refills: 0 Ordered: 09-Jan-2021 DO Active cefdinir 300 mg oral capsule (17 sources) Cephalosporin Antibacterial Start: 02-17-2024 End: 03-14-2024 take 1 capsule by mouth twice daily Cefdinir 300 mg capsule Discontinued 300 MG PO Twice daily February 17, 2024 1:00am March 14, 2024 2:49pm cephalexin 500 mg oral capsule (16 sources) Cephalosporin Antibacterial Start: 03-12-2017 End: 01-27-2023 take 1 capsule by mouth three times daily Cephalexin (Keflex) 500 mg capsule Discontinued 500 MG PO Three times daily March 12, 2017 1:00am January 27, 2023 8:01am ipratropium bromide 0.021 mg/actuat metered dose nasal spray (10 sources) Anticholinergic Start: 12-23-2023 End: 03-28-2024 take 1 spray(s) nasal route twice daily Ipratropium [employer] 21 mcg (0.03 %) spray,non-aerosol Discontinued 2 SPRAY INTRANASAL Twice daily December 23, 2023 12:00am March 28, 2024 11:37am administer into each nostril levoFLOXacin 250 mg oral tablet (7 sources) Quinolone Antimicrobial Start: 07-25-2024 End: 08-01-2024 take 1 tablet by mouth once daily Levofloxacin 250 mg tablet Discontinued 250 MG PO Daily 2 July 25, 2024 12:00am August 01, 2024 10:33pm losartan potassium 100 mg oral tablet (20 sources) Angiotensin 2 Receptor Kimmie Start: 03-14-2024 End: 05-22-2024 take 1 tablet by mouth once daily Losartan 100 mg tablet Discontinued 100 MG PO Daily March 14, 2024 4:07pm May 22, 2024 2:40pm Start: 12-22-2023 Losartan Activ e MG PO December 22, 2023 12:00am Start: 08-05-2023 End: 03-14-2024 Losartan 50 mg tablet Discon tinued 25 MG PO Daily August 05, 2023 10:50am March 14, 2024 4:08pm Start: 08-05-2023 take 25 mg by mouth once daily Losartan Active 25 MG PO Daily August 05, 2023 10:50am Start: 05-18-2023 End: 03-14-2024 Losartan 25 mg tablet Discon tinued MG PO December 22, 2023 12:00am March 14, 2024 2:50pm Start: 01-27-2023 End: 01-17-2025 take 1 tablet by mouth once daily Losartan 50 mg tablet Discontinued 50 MG PO Daily January 27, 2023 [...] tablet Discontinued 25 MG PO Daily October 31, 2021 12:00am January 27, 2023 2:38pm metoprolol tartrate 50 mg oral tablet (20 sources) beta-Adrenergic Kimmie Start: 07-06-2023 End: 11-21-2025 take 1 tablet by mouth twice daily Metoprolol Tartrate 50 mg Tablet Discontinued 50 MG PO Twice daily 60 August 01, 2024 12:00am August 07, 2024 3:59pm Start: 03-10-2023 End: 03-09-2024 take 0.5 tablet by mouth twice daily metoprolol tartrate (Lopressor) 50 mg tablet Indications: Accelerated hypertension Take 0.5 tablets by mouth 2 times a day. 90 tablet 3 03/10/2023 03/09/2024 Active Start: 01-29-2023 End: 04-11-2025 take 1 tablet by mouth twice daily Metoprolol Tartrate 25 mg tablet Discontinued 25 MG PO Twice daily 60 January 29, 2023 12:00am August 01, 2024 10:33pm Start: 12-17-2021 End: 03-10-2023 take 1 tablet by mouth once daily metoprolol tartrate (Lopressor) 50 mg tablet Indications: Accelerated hypertension Take 1 tablet by mouth once daily. 90 tablet 3 01/14/2023 03/10/2023 Discontinued (Reorder) take 0.5 tablet by m outh twice daily Metoprolol Tartrate 50 MG 1/2 tablet Orally twice a day Active nebivolol 10 mg oral tablet (16 sources) Start: 03-12-2017 End: 01-27-2023 take 1 tablet by mouth twice daily Nebivolol (Bystolic) 10 mg tablet Discontinued 10 MG PO Twice daily March 12, 2017 1:00am January 27, 2023 8:03am spironolactone 25 mg oral tablet (20 sources) Aldosterone Antagonist Start: 03-12-2017 End: 03-14-2024 take 1 tablet by mouth once daily Spironolactone 25 mg tablet Discontinued 25 MG PO Daily March 12, 2017 1:00am March 14, 2024 2:51pm Start: 03-12-2017 take 12.5 mg by mout h once daily Spironolactone Active 12.5 MG PO Daily March 12, 2017 1:00am tiZANidine 2 mg oral tablet (4 sources) Central alpha-2 Adrenergic Agonist Start: 11-03-2021 take 1 tablet by mouth twice daily as needed tiZANidine HCl - 2 MG Oral Tablet TAKE 1 TABLET BY MOUTH TWICE A DAY NEEDED Quantity: 20 Refills: 0 Ordered: 03-Nov-2021 DO Start : 03-Nov-2021 Active valsartan 160 mg oral tablet (20 sources) Angiotensin 2 Receptor Kimmie Start: 04-05-2024 End: 04-11-2025 take 1 tablet by mouth once daily Valsartan 160 mg tablet Discontinued 160 MG PO Daily May 22, 2024 1:00am August 01, 2024 10:33pm Start: 03-12-2017 End: 11-21-2025 take 1 tablet by mouth once daily Valsartan 320 mg Tablet Discontinued 320 MG PO Daily August 01, 2024 12:00am August 07, 2024 3:59pm Problems Active Problems Problem Classification Problem Date Documented Date Episodic/Chronic Acute cerebrovascular disease (20 sources) Cerebrovascular accident; Translations: [Cerebral infarction, unspecified] Onset: 4 03-06-2024 Chronic Acute myocardial infarction (20 sources) Myocardial infarction; Translations: [Non-ST elevation (NSTEMI) myocardial infarction] Onset: 4 Resolved: 4 01-28-2023 Chronic Administrative/socia l admission (20 sources) Advance directive discussed with patient; Translations: [Other specified counseling] Onset: 5 07-24-2024 Episodic Blindness and vision defects (12 sources) Left homonymous hemianopsia; Translations: [Homonymous bilateral field defects, left side] Onset: 4 03-06-2024 Episodic Cardiac dysrhythmias (20 sources) Paroxysmal atrial fibrillation; Translations: [Atrial fibrillation] Onset: 3 01-27-2023 Chronic Cataract (2 sources) 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; Translations: [Other secondary cataract, right eye] Onset: 5 09-04-2024 Chronic Chronic kidney disease (20 sources) Chronic kidney disease stage 3; Translations: [Chronic kidney disease, Stage III (moderate)] Onset: 3 03-10-2023 Chronic Chronic kidney disease (8 sources) Chronic kidney disease; Translations: [Chronic kidney disease, stage 3b] Onset: 2 Resolved: 2 Chronic obstructive pulmonary disease and bronchiectasis (5 sources) Bronchitis; Translations: [Bronchitis, not specified as acute or chronic] Episodic Coronary atherosclerosis and other heart disease (14 sources) Coronary arteriosclerosis; Translations: [Atherosclerotic heart disease of [place] coronary artery without angina pectoris] Onset: 4 Chronic Deficiency and other anemia (8 sources) Anemia of renal disease; Translations: [Anemia in chronic kidney disease] Chronic Disorders of lipid metabolism (20 sources) Hyperlipidemia; Translations: [Other and unspecified hyperlipidemia] Onset: 3 Chronic Epilepsy; convulsions (20 sources) Seizure; Translations: [Unspecified convulsions] Onset: 5 07-23-2024 Episodic Essential hypertension (20 sources) Malignant hypertension; Translations: [Malignant essential hypertension] Onset: 2 03-12-2017 Chronic Fluid and electrolyte disorders (20 sources) Hypo-osmolality and hyponatremia; Translations: [Hyponatremia] Onset: [...] 2 Resolved: 2 Chronic Nonspecific chest pain (16 sources) Chest pain; Translations: [Chest pain, unspecified] 01-27-2023 Episodic Other aftercare (2 sources) Patient encounter status; Translations: [Encounter for therapeutic drug level monitoring] 04-04-2024 Episodic Other circulatory disease (5 sources) Elevated blood-pressure reading without diagnosis of hypertension; Translations: [Elevated blood-pressure reading, without diagnosis of hypertension] Episodic Other circulatory disease (11 sources) History of cerebrovascular accident; Translations: [Personal history of transient ischemic attack (TIA), and cerebral infarction without residual deficits] 07-23-2024 Episodic Other circulatory disease (8 sources) Personal history of transient ischemic attack (TIA), and cerebral infarction without residual deficits; Translations: [Personal history of transient ischemic attack (TIA), and cerebral infarction without residual deficits] Onset: 5 07-25-2024 Episodic Other connective tissue disease (5 sources) Pain in left lower limb; Translations: [Pain in left leg] 08-29-2024 Episodic Other diseases of kidney and ureters (8 sources) Secondary hyperparathyroidism; Translations: [Secondary hyperparathyroidism of renal origin] Chronic Other diseases of kidney and ureters (2 sources) Secondary hyperparathyroidism of renal origin; Translations: [SEC HYPERPARATHYROIDISM RENAL ORIGN] Onset: 2 Resolved: 2 Chronic Other ear and sense organ disorders (7 sources) Impacted cerumen; Translations: [Impacted cerumen, bilateral] 12-22-2023 Episodic Other ear and sense organ disorders (1 source) Impacted cerumen, bilateral; Translations: [Impacted cerumen] 12-22-2023 Episodic Other ear and sense organ disorders (3 sources) Impacted cerumen of bilateral ears; Translations: [Impacted cerumen, bilateral] 12-22-2023 Episodic Other endocrine disorders (20 sources) Hypoparathyroidism; Translations: [Hypoparathyroidism, unspecified] 08-05-2023 Chronic Other endocrine disorders (5 sources) Hypoparathyroidism, unspecified; Translations: [Hypoparathyroidism] Onset: 2 Resolved: 2 Chronic Other eye disorders (6 sources) Hemorrhage of right vitreous body; Translations: [Vitreous hemorrhage, right eye] 08-07-2024 Chronic Other eye disorders (1 source) Vitreous hemorrhage, right eye; Translations: [Vitreous hemorrhage] 08-07-2024 Chronic Other eye disorders (2 sources) Dry eyes; Translations: [Dry eye syndrome of bilateral lacrimal glands] Onset: 5 09-04-2024 Episodic Other injuries and conditions due to external causes (5 sources) History of fall; Translations: [History of falling] Episodic Other nervous system disorders (4 sources) Metabolic encephalopathy; Translations: [Metabolic encephalopathy] 09-20-2024 Chronic Other screening for suspected conditions (not mental disorders or infectious disease) (20 sources) Raised cardiac enzyme or marker; Translations: [Other specified abnormal findings of blood chemistry] 01-27-2023 Episodic Other upper respiratory disease (10 sources) Nasal discharge; Translations: [Other specified disorders of nose and nasal sinuses] 12-23-2023 Episodic Other upper respiratory disease (1 source) Other specified disorders of nose and nasal sinuses; Translations: [Other disease of nasal cavity and sinuses] 12-17-2023 Episodic Peripheral and visceral atherosclerosis (20 sources) Renal artery stenosis; Translations: [Atherosclerosis of renal artery] Onset: 3 12-16-2022 Chronic Residual codes; unclassified (20 sources) Body mass index 20-24 - normal; Translations: [Body Mass Index between 19-24, adult] Onset: 3 Resolved: 4 03-10-2023 Episodic Residual codes; unclassified (5 sources) Immunization refused ; Translations: [Immunization not carried out because of patient refusal] Episodic Residual codes; unclassified (13 sources) Altered mental status; Translations: [Altered mental status, unspecified] 04-04-2024 Episodic Residual codes; unclassified (7 sources) Altered mental status, unspecified; Translations: [Altered mental status] 07-25-2024 Episodic Residual codes; unclassified (1 source) Disorientation, unspecified; Translations: [Disorientation, unspecified] Onset: 5 Episodic Residual codes; unclassified (2 sources) Body mass index (BMI) 22.0-22.9, adult; Translations: [Body mass index (BMI) 22.0-22.9, adult] Onset: 5 Episodic Residual codes; unclassified (2 sources) Body mass index (BMI) 23.0-23.9, adult; Translations: [Body mass index (BMI) 23.0-23.9, adult] Onset: 5 Episodic Screening and history of mental health and substance abuse codes (20 sources) Ex-smoker; Translations: [Personal history of tobacco use] Onset: 3 12-16-2022 Episodic Comment on above: quit 1966; Spondylosis; intervertebral disc disorders; other back problems (17 sources) Backache with radiation; Translations: [Dorsalgia, unspecified] 01-27-2023 Episodic Sprains and strains (5 sources) Strain of muscle of left upper arm; Translations: [Strain of other muscles, fascia and tendons at shoulder and upper arm level, left arm, initial encounter] Episodic Thyroid disorders (20 sources) Hypothyroidism; Translations: [Unspecified acquired hypothyroidism] Onset: 4 Chronic Unclassified (5 sources) A [facility] screening has identified you as FRAIL or AT RISK FOR FRAILTY. This puts you at a higher risk for infection, illness, falls, and other injuries. Here are four ways to help you reduce your risk of frailty: 1. IDENTIFY EARLY SIGNS OF FRAILTY Discuss contributing factors and concerns with your doctor 2. BE ACTIVE Walking and light strengthening exercises will help reduce weakness 3. EAT WELL Aim for three healthy meals a day that are high in protein 4. THINK POSITIVE Keep your mind active by being sociable and continuing to learn References: Stay Strong: Four Ways to Beat the Frailty Risk [email or web address] 08-01-2024 Unclassified (8 sources) Please call to schedule follow up appointment after discharged from Rehab. Unclassified (4 sources) Primary Care Provider Unclassified (4 sources) Follow up with rehab physician as needed Unclassified (2 sources) Dr Amaro saw while inpatient. [facility] 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 Radiology Study observation (narrative) [facility] Basic Metabolic PanelOrdered By: Jhon Abreu on 07-31-2024 Anion gap [Moles/Vol] 6.7 mmol/L 6.0-15.0 [facility] Comment on above: Performed By: #### C MP, CBC #### [facility] [address] Calcium [Mass/Vol] 8.8 mg/dL 8.6-10.3 [facility] Comment on above: Performed By: #### C MP, CBC #### [facility] [address] Chloride [Moles/Vol] 101 mmol/L 98-107 [facility] Comment on above: Performed By: #### C MP, CBC #### [facility] [address] CO2 [Moles/Vol] 29.2 mmol/L 21.0-31.0 [facility] Comment on above: Performed By: #### C MP, CBC #### [facility] [address] Creatinine [Mass/Vol] 0.96 mg/dL 0.60-1.20 [facility] Comment on above: Performed By: #### C MP, CBC #### [facility] [address] Glucose [Mass/Vol] 93 mg/dL 70-100 [facility] Comment on above: Result Comment: [place] om Glucose Reference Range is dependent on time and content of last meal. Glucose of more than 200 mg/dL in a nonstressed, ambulatory subject supports the diagnosis of Diabetes Mellitus. ADA recommended reference range Performed By: #### C MP, CBC #### [facility] [address] ADA recommended refe rence rangeRandom Glucose Reference Range is dependent on time and content of last meal. Glucose of more than 200 mg/dL in a nonstressed, ambulatory subject supports the diagnosis of Diabetes Mellitus. Potassium [Moles/Vol] 3.9 mmol/L 3.5-5.1 [facility] Comment on above: Performed By: #### C MP, CBC #### [facility] [address] [place] [address] [place] Sodium [Moles/Vol] 133 mmol/L Low 136-145 [facility] Comment on above: Performed By: #### C MP, CBC #### [facility] [address] Urea nitrogen [Mass/Vol] 24 mg/dL 10-20 [facility] Comment on above: Performed By: #### C MP, CBC #### [facility] [address] Basic Metabolic Panelon Creatinine Clr Calc Pharmacy 37.67 Normal [facility] Comment on above: Result Comment: PERF ORMED BY: [place] [address] PATHOLOGIST TOPPIECE CUTTER KARAN TINSLEY M.D. Performed By: #### C MP, CBC #### [facility] [address] Estimated GFR 58.341 mL/Min Normal [facility] Comment on above: Performed By: #### C MP, CBC #### [facility] [address] Basophils Auto (Bld) [#/Vol] Ordered By: Jhon Abreu on 07-31-2024 Basophils (Bld) [#/Vol] Automated basophil count 0.0-0.2 [facility] Basophils/100 WBC Auto (Bld) Ordered By: Jhon Abreu on 07-31-2024 Basophils/100 WBC (Bld) Automated basophil % . [facility] Calcium [Mass/volume] in Ser um or PlasmaOrdered By: Jhon Abreu on 07-31-2024 Calcium [Mass/Vol] Calcium [Mass/volume ] in Serum or Plasma 8.6-10.3 [facility] Carbon dioxide, total [Moles /volume] in Serum or PlasmaOrdered By: Jhon Abreu on 07-31-2024 CO2 [Moles/Vol] Carbon dioxide, tota l [Moles/volume] in Serum or Plasma 21.0-31.0 [facility] Chloride [Moles/volume] in S lorraine or PlasmaOrdered By: Jhon Abreu on 07-31-2024 Chloride [Moles/Vol] Chloride [Moles/vol ume] in Serum or Plasma 98-107 [facility] Complete Blood Count Auto Di ffOrdered By: Jhon Abreu on 07-31-2024 Basophils (Bld) [#/Vol] 0.1 10*3/uL 0.0-0.2 [facility] Comment on above: Result Comment: PERF ORMED BY: [place] [address] PATHOLOGIST TOPPIECE CUTTER KARAN TINSLEY M.D. Performed By: #### C MP, CBC #### [address] Basophils/100 WBC (Bld) 0.9 % . [facility] Comment on above: Performed By: #### C MP, CBC #### [address] Eosinophils (Bld) [#/Vol] 0.3 10*3/uL 0.0-0.45 [facility] Comment on above: Performed By: #### C MP, CBC #### [address] Eosinophils/100 WBC (Bld) 4.0 % . [facility] Comment on above: Performed By: #### C MP, CBC #### [address] Erythrocyte distribution width (RBC) [Ratio] 13.5 % 11.9-15.3 [facility] Comment on above: Performed By: #### C MP, CBC #### [address] Hematocrit (Bld) [Volume fraction] 35.2 % 34.0-46.4 [facility] Comment on above: Performed By: #### C MP, CBC #### [address] Hemoglobin (Bld) [Mass/Vol] 12.2 g/dL 11.8-15.4 [facility] Comment on above: Performed By: #### C MP, CBC #### [facility] [address] Lymphocytes (Bld) [#/Vol] 1.8 10*3/uL 1.00-4.8 [facility] Comment on above: Performed By: #### C MP, CBC #### [address] Lymphocytes/100 WBC (Bld) 28.6 % . [facility] Comment on above: Performed By: #### C MP, CBC #### [address] MCH (RBC) [Entitic mass] 30.6 pg 24.7-34.3 [facility] Comment on above: Performed By: #### C MP, CBC #### [address] MCV (RBC) [Entitic vol] 88.6 fL 80-100 [facility] Comment on above: Performed By: #### C MP, CBC #### [place] [address] [place] Monocytes (Bld) [#/Vol] 0.8 10*3/uL 0.0-0.8 [facility] Comment on above: Performed By: #### C MP, CBC #### [address] Monocytes/100 WBC (Bld) 13.4 % . [facility] Comment on above: Performed By: #### C MP, CBC #### [address] Neutrophils (Bld) [#/Vol] 3.3 10*3/uL 1.8-7.7 [facility] Comment on above: Performed By: #### C MP, CBC #### [address] Neutrophils/100 WBC (Bld) 53.1 % . [facility] Comment on above: Performed By: #### C MP, CBC #### [address] Platelet mean volume (Bld) [Entitic vol] 7.7 fL 6.3-10.7 [facility] Comment on above: Performed By: #### C MP, CBC #### [address] Platelets (Bld) [#/Vol] 227 10*3/uL 150-450 [facility] Comment on above: Performed By: #### C MP, CBC #### [address] RBC (Bld) [#/Vol] 3.98 10*6/uL 3.60-5.00 [facility] Comment on above: Performed By: #### C MP, CBC #### [address] WBC (Bld) [#/Vol] 6.3 10*3/uL 3.8-11.6 [facility] Comment on above: Performed By: #### C MP, CBC #### [address] Complete Blood Count Auto Di ffon 07-31-2024 Mean Corpuscular HGB Conc 34.5 g/dL Normal 32.0-35.0 [facility] Comment on above: Performed By: #### C MP, CBC #### [address] NRBC% 0.1 /100{WBC} Normal 0-0.5 [facility] Comment on above: Performed By: #### C MP, CBC #### [address] Creatinine [Mass/volume] in Serum or PlasmaOrdered By: Jhon Abreu on 07-31-2024 Creatinine [Mass/Vol] Creatinine [Mass/v olume] in Serum or Plasma 0.60-1.20 [facility] Eosinophils Auto (Bld) [#/Vo l]Ordered By: Jhon Abreu on 07-31-2024 Eosinophils (Bld) [#/Vol] Automated eosinophil count 0.0-0.45 [facility] Eosinophils/100 WBC Auto (Bl d)Ordered By: Jhon Abreu on 07-31-2024 Eosinophils/100 WBC (Bld) Automated eosinophil % . [facility] Erythrocyte distribution wid th Auto (RBC) [Ratio]Ordered By: Jhon Abreu on 07-31-2024 Erythrocyte distribution width (RBC) [Ratio] Erythrocyte distribution width [Ratio] by Automated count 11.9-15.3 [facility] Glucose [Mass/volume] in Ser um or PlasmaOrdered By: Jhon Abreu on 07-31-2024 Glucose [Mass/Vol] Glucose [Mass/volume ] in Serum or Plasma 70-100 [facility] Comment on above: ADA recommended refe rence rangeRandom Glucose Reference Range is dependent on time and content of last meal. Glucose of more than 200 mg/dL in a nonstressed, ambulatory subject supports the diagnosis of Diabetes Mellitus. Hematocrit Auto (Bld) [Volum e fraction]Ordered By: Jhon Abreu on 07-31-2024 Hematocrit (Bld) [Volume fraction] Hematocrit [Volume Fraction] of Blood by Automated count 34.0-46.4 [facility] Hemoglobin [Mass/volume] in BloodOrdered By: Jhon Abreu on 07-31-2024 Hemoglobin (Bld) [Mass/Vol] Hemoglobin [Mass/volume] in Blood 11.8-15.4 [facility] Leukocytes [#/volume] correc chacho for nucleated erythrocytes in Blood by Automated counOrdered By: Jhon Abreu on 07-31-2024 WBC corrected for nucl RBC Auto (Bld) [#/Vol] Leukocytes [#/volume] corrected for nucleated erythrocytes in Blood by Automated coun 3.8-11.6 [facility] WBC corrected for nucl RBC Auto (Bld) [#/Vol] 6.3 10*3/uL 3.8-11.6 [facility] Lymphocytes Auto (Bld) [#/Vo l]Ordered By: Jhon Abreu on 07-31-2024 Lymphocytes (Bld) [#/Vol] Lymphocytes [#/volume] in Blood by Automated count 1.00-4.8 [facility] Lymphocytes/100 WBC Auto (Bl d)Ordered By: Jhon Abreu on 07-31-2024 Lymphocytes/100 WBC (Bld) Lymphocytes/100 leukocytes in Blood by Automated count . [facility] MCH Auto (RBC) [Entitic mass ]Ordered By: Jhon Abreu on 07-31-2024 MCH (RBC) [Entitic mass] MCH [Entitic mass] by Automated count 24.7-34.3 [facility] MCHC Auto (RBC) [Mass/Vol]Or dered By: Jhon Abreu on 07-31-2024 MCHC (RBC) [Mass/Vol] MCHC [Mass/volume] by Automated count 32.0-35.0 [facility] MCHC (RBC) [Mass/Vol] 34.5 g/dL 32.0-35.0 [facility] MCV Auto (RBC) [Entitic vol] Ordered By: Jhon Abreu on 07-31-2024 MCV (RBC) [Entitic vol] MCV [Entitic vol ume] by Automated count 80-100 [facility] Monocytes Auto (Bld) [#/Vol] Ordered By: Jhon Abreu on 07-31-2024 Monocytes (Bld) [#/Vol] Automated blood monocyte count 0.0-0.8 [facility] Monocytes/100 WBC Auto (Bld) Ordered By: Jhon Abreu on 07-31-2024 Monocytes/100 WBC (Bld) Automated monocyte % . [facility] Neutrophils Auto (Bld) [#/Vo l]Ordered By: Jhon Abreu on 07-31-2024 Neutrophils (Bld) [#/Vol] Neutrophils [#/volume] in Blood by Automated count 1.8-7.7 [facility] Neutrophils/100 WBC Auto (Bl d)Ordered By: Jhon Abreu on 07-31-2024 Neutrophils/100 WBC (Bld) Automated neutrophil % . [facility] No Panel InformationOrdered By: Jhon Abreu on 07-31-2024 Estimated GFR (CKD-EPI) 58.341 mL/Min [facility] Creatinine Clearance (Chem 37.67 [facility] Nucleated erythrocytes [Pres ence] in Blood by Automated countOrdered By: Jhon Abreu on 07-31-2024 Nucleated RBC Auto Ql (Bld) Nucleated erythrocytes [Presence] in Blood by Automated count 0-0.5 [facility] Nucleated RBC Auto Ql (Bld) 0.1 /100{WBC} 0-0.5 [facility] Platelet mean volume Auto (B ld) [Entitic vol]Ordered By: Jhon Abreu on 07-31-2024 Platelet mean volume (Bld) [Entitic vol] Platelet mean volume [Entitic volume] in Blood by Automated count 6.3-10.7 [facility] Platelets Auto (Bld) [#/Vol] Ordered By: Jhon Abreu on 07-31-2024 Platelets (Bld) [#/Vol] Platelets [#/vol ume] in Blood by Automated count 150-450 [facility] Potassium [Moles/volume] in Serum or PlasmaOrdered By: Jhon Abreu on 07-31-2024 Potassium [Moles/Vol] Potassium [Moles/v olume] in Serum or Plasma 3.5-5.1 [facility] RBC Auto (Bld) [#/Vol]Ordere d By: Jhon Abreu on 07-31-2024 RBC (Bld) [#/Vol] Erythrocytes [#/volu me] in Blood by Automated count 3.60-5.00 [facility] Serum or plasma anion gap de terminationOrdered By: Jhon Abreu on 07-31-2024 Anion gap [Moles/Vol] Serum or plasma an ion gap determination 6.0-15.0 [facility] Sodium [Moles/volume] in Ser um or PlasmaOrdered By: Jhon Abreu on 07-31-2024 Sodium [Moles/Vol] Sodium [Moles/volume ] in Serum or Plasma Low 136-145 [facility] Urea nitrogen [Mass/volume] in Serum or PlasmaOrdered By: Jhon Abreu on 07-31-2024 Urea nitrogen [Mass/Vol] Urea nitrogen [Mass/volume] in Serum or Plasma 7-25 [facility] WBC Auto (Bld) [#/Vol]Ordere d By: Jhon Abreu on 07-31-2024 WBC (Bld) [#/Vol] Leukocytes [#/volume ] in Blood by Automated count 3.8-11.6 [facility] Alanine aminotransferase [En zymatic activity/volume] in Serum or PlasmaOrdered By: Jhon Abreu on 07-26-2024 ALT [Catalytic activity/Vol] Alanine aminotransferase [Enzymatic activity/volume] in Serum or Plasma 752 [facility] Albumin [Mass/volume] in Ser um or Plasma by Bromocresol green (BCG) dye binding methoOrdered By: Jhon Abreu on 07-26-2024 Albumin BCG dye [Mass/Vol] Albumin [Mass/volume] in Serum or Plasma by Bromocresol green (BCG) dye binding metho Low 3.5-5.7 [facility] Albumin BCG dye [Mass/Vol] 3.4 g/dL Low 3.5-5.7 [facility] Alkaline phosphatase [Enzyma tic activity/volume] in Serum or PlasmaOrdered By: Jhon Abreu on 07-26-2024 ALP [Catalytic activity/Vol] Alkaline phosphatase [Enzymatic activity/volume] in Serum or Plasma 34-104 [facility] Aspartate aminotransferase [ Enzymatic activity/volume] in Serum or PlasmaOrdered By: Jhon Abreu on 07-26-2024 AST [Catalytic activity/Vol] Aspartate aminotransferase [Enzymatic activity/volume] in Serum or Plasma 13-39 [facility] Bilirubin.total [Mass/volume ] in Serum or PlasmaOrdered By: hJon Abreu on 07-26-2024 Bilirubin [Mass/Vol] Bilirubin.total [Mass/volume] in Serum or Plasma 0.3-1.0 [facility] Complete Blood Count Auto Di ffon 07-26-2024 Basophils (Bld) [#/Vol] 0.1 10*3/uL Normal 0.0-0.2 [facility] Comment on above: Result Comment: PERF ORMED BY: [address] [place] [address] PATHOLOGIST TOPPIECE CUTTER KARAN TINSLEY M.D. Performed By: #### C MP, CBC #### [facility] [address] [place] [address] [place] Basophils/100 WBC (Bld) 0.9 % Normal . [facility] Comment on above: Performed By: #### C MP, CBC #### [facility] [address] [place] [address] [place] Eosinophils (Bld) [#/Vol] 0.2 10*3/uL Normal 0.0-0.45 [facility] Comment on above: Performed By: #### C MP, CBC #### [address] Eosinophils/100 WBC (Bld) 2.3 % Normal . [facility] Comment on above: Performed By: #### C MP, CBC #### [address] Erythrocyte distribution width (RBC) [Ratio] 13.1 % Normal 11.9-15.3 [facility] Comment on above: Performed By: #### C MP, CBC #### [address] Hematocrit (Bld) [Volume fraction] 35.6 % Normal 34.0-46.4 [facility] Comment on above: Performed By: #### C MP, CBC #### [address] Hemoglobin (Bld) [Mass/Vol] 12.7 g/dL Normal 11.8-15.4 [facility] Comment on above: Performed By: #### C MP, CBC #### [address] Lymphocytes (Bld) [#/Vol] 1.9 10*3/uL Normal 1.00-4.8 [facility] Comment on above: Performed By: #### C MP, CBC #### [place] [address] [place] Lymphocytes/100 WBC (Bld) 27.9 % Normal . [facility] Comment on above: Performed By: #### C MP, CBC #### [place] [address] [place] MCH (RBC) [Entitic mass] 31.1 pg Normal 24.7-34.3 [facility] Comment on above: Performed By: #### C MP, CBC #### [address] MCV (RBC) [Entitic vol] 87.4 fL Normal 80-100 T [facility] Comment on above: Performed By: #### C MP, CBC #### [facility] [address] Mean Corpuscular HGB Conc 35.6 g/dL High 32.0-35.0 [facility] Comment on above: Performed By: #### C MP, CBC #### [address] Monocytes (Bld) [#/Vol] 0.8 10*3/uL Normal 0.0-0.8 [facility] Comment on above: Performed By: #### C MP, CBC #### [place] [address] [place] Monocytes/100 WBC (Bld) 11.3 % Normal . [facility] Comment on above: Performed By: #### C MP, CBC #### [address] Neutrophils (Bld) [#/Vol] 3.9 10*3/uL Normal 1.8-7.7 [facility] Comment on above: Performed By: #### C MP, CBC #### [place] [address] [place] Neutrophils/100 WBC (Bld) 57.6 % Normal . [facility] Comment on above: Performed By: #### C MP, CBC #### [address] NRBC% 0.1 /100{WBC} Normal 0-0.5 [facility] Comment on above: Performed By: #### C MP, CBC #### [place] [address] [place] Platelet mean volume (Bld) [Entitic vol] 8.0 fL Normal 6.3-10.7 [facility] Comment on above: Performed By: #### C MP, CBC #### [place] [address] [place] Platelets (Bld) [#/Vol] 210 10*3/uL Normal 150-450 [facility] Comment on above: Performed By: #### C MP, CBC #### [address] RBC (Bld) [#/Vol] 4.07 10*6/uL Normal 3.60-5.00 [facility] Comment on above: Performed By: #### C MP, CBC #### [address] WBC (Bld) [#/Vol] 6.7 10*3/uL Normal 3.8-11.6 [facility] Comment on above: Performed By: #### C MP, CBC #### [address] Comprehensive Metabolic Pane clarita 07-26-2024 Albumin [Mass/Vol] 3.4 g/dL Low 3.5-5.7 [facility] Comment on above: Performed By: #### C MP, CBC #### [address] Anion gap [Moles/Vol] 10.7 mmol/L Normal 6.0-15.[address] [facility] Comment on above: Performed By: #### C MP, CBC #### [address] Calcium [Mass/Vol] 8.9 mg/dL Normal 8.6-10.3 [facility] Comment on above: Performed By: #### C MP, CBC #### [address] Chloride [Moles/Vol] 100 mmol/L Normal 98-107 [facility] Comment on above: Performed By: #### C MP, CBC #### [place] [address] [place] CO2 [Moles/Vol] 26.0 mmol/L Normal 21.0-31.0 [facility] Comment on above: Performed By: #### C MP, CBC #### [address] Creatinine [Mass/Vol] 1.09 mg/dL Normal 0.60-1.20 [facility] Comment on above: Performed By: #### C MP, CBC #### [facility] [address] [place] [address] [place] Creatinine Clr Calc Pharmacy 33.18 Normal [facility] Comment on above: Performed By: #### C MP, CBC #### [facility] [address] Estimated GFR 50.094 mL/Min Normal [facility] Comment on above: Performed By: #### C MP, CBC #### [facility] [address] Glucose [Mass/Vol] 98 mg/dL Normal 70-100 [facility] Comment on above: Result Comment: [facility] Glucose Reference Range is dependent on time and content of last meal. Glucose of more than 200 mg/dL in a nonstressed, ambulatory subject supports the diagnosis of Diabetes Mellitus. ADA recommended reference range Performed By: #### C MP, CBC #### [address] Potassium [Moles/Vol] 3.7 mmol/L Normal 3.5-5.1 [facility] Comment on above: Performed By: #### C MP, CBC #### [address] Sodium [Moles/Vol] 133 mmol/L Low 136-145 [facility] Comment on above: Performed By: #### C MP, CBC #### [address] Urea nitrogen [Mass/Vol] 15 mg/dL Normal 7-25 [facility] Comment on above: Performed By: #### C MP, CBC #### [facility] [address] Comprehensive Metabolic Pane lOrdered By: Jhon Abreu on 07-26-2024 Albumin/Globulin [Mass ratio] 1.4 {ratio} [facility] Comment on above: Performed By: #### C MP, CBC #### [facility] [address] [place] [address] [place] ALP [Catalytic activity/Vol] 48 U/L 34-104 [facility] Comment on above: Performed By: #### C MP, CBC #### [facility] [address] ALT [Catalytic activity/Vol] 11 U/L 7-52 [facility] Comment on above: Performed By: #### C MP, CBC #### [facility] [address] AST [Catalytic activity/Vol] 25 U/L 13-39 [facility] Comment on above: Performed By: #### C MP, CBC #### [facility] [address] Bilirubin [Mass/Vol] 0.8 mg/dL 0.3-1.0 [facility] Comment on above: Performed By: #### C MP, CBC #### [facility] [address] [place] [address] Globulin (S) [Mass/Vol] 2.5 g/dL [facility] Comment on above: Performed By: #### C MP, CBC #### [facility] [address] [place] [address] Protein [Mass/Vol] 5.9 g/dL Low 6.4-8.9 [facility] Comment on above: Performed By: #### C MP, CBC #### [facility] [address] [place] [address] Globulin Calc (S) [Mass/Vol] Ordered By: Jhon Abreu on 07-26-2024 Globulin (S) [Mass/Vol] Serum globulin m easurement by calculation (mass/volume) [facility] PrealbuminOrdered By: Jhon Abreu on 07-26-2024 Prealbumin [Mass/Vol] 14.8 mg/dL Low 17.0-34.0 [facility] Comment on above: Result Comment: PERF ORMED BY: [place] [address] PATHOLOGIST TOPPIECE CUTTER KARAN TINSLEY M.D. Performed By: #### C MP, CBC #### [facility] [address] [place] [address] Prealbumin [Mass/volume] in Serum or PlasmaOrdered By: Jhon Abreu on 07-26-2024 Prealbumin [Mass/Vol] Prealbumin [Mass/v olume] in Serum or Plasma Low 17.0-34.0 [facility] Protein [Mass/volume] in Ser um or PlasmaOrdered By: Jhon Abreu on 07-26-2024 Protein [Mass/Vol] Protein [Mass/volume ] in Serum or Plasma Low 6.4-8.9 [facility] Serum or plasma albumin/glob ulin mass ratioOrdered By: Jhon Abreu on 07-26-2024 Albumin/Globulin [Mass ratio] Serum or plasma albumin/globulin mass ratio [facility] Alanine aminotransferase [En zymatic activity/volume] in Serum or PlasmaOrdered By: Jhony Davis on 07-24-2024 ALT [Catalytic activity/Vol] Alanine aminotransferase [Enzymatic activity/volume] in Serum or Plasma 7-52 [facility] Albumin [Mass/volume] in Ser um or Plasma by Bromocresol green (BCG) dye binding methoOrdered By: Jhony Davis on 07-24-2024 Albumin BCG dye [Mass/Vol] Albumin [Mass/volume] in Serum or Plasma by Bromocresol green (BCG) dye binding metho Low 3.5-5.7 [facility] Albumin BCG dye [Mass/Vol] 3.3 g/dL Low 3.5-5.7 [facility] Alkaline phosphatase [Enzyma tic activity/volume] in Serum or PlasmaOrdered By: Jhony Davis on 07-24-2024 ALP [Catalytic activity/Vol] Alkaline phosphatase [Enzymatic activity/volume] in Serum or Plasma 34-104 [facility] Aspartate aminotransferase [ Enzymatic activity/volume] in Serum or PlasmaOrdered By: Jhony Davis on 07-24-2024 AST [Catalytic activity/Vol] Aspartate aminotransferase [Enzymatic activity/volume] in Serum or Plasma 13-39 [facility] Basophils Auto (Bld) [#/Vol] Ordered By: Jhony Davis on 07-24-2024 Basophils (Bld) [#/Vol] Automated basophil count 0.0-0.2 [facility] Basophils/100 WBC Auto (Bld) Ordered By: Jhony Davis on 07-24-2024 Basophils/100 WBC (Bld) Automated basophil % . [facility] Bilirubin.total [Mass/volume ] in Serum or PlasmaOrdered By: Jhony Davis on 07-24-2024 Bilirubin [Mass/Vol] Bilirubin.total [Mass/volume] in Serum or Plasma 0.3-1.0 [facility] Calcium [Mass/volume] in Ser um or PlasmaOrdered By: Jhony Davis on 07-24-2024 Calcium [Mass/Vol] Calcium [Mass/volume ] in Serum or Plasma 8.6-10.3 [facility] Carbon dioxide, total [Moles /volume] in Serum or PlasmaOrdered By: Jhony Davis on 07-24-2024 CO2 [Moles/Vol] Carbon dioxide, tota l [Moles/volume] in Serum or Plasma 21.0-31.0 [facility] Chloride [Moles/volume] in S lorraine or PlasmaOrdered By: Jhony Davis on 07-24-2024 Chloride [Moles/Vol] Chloride [Moles/vol ume] in Serum or Plasma 98-107 [facility] Complete Blood Count Auto Di ffOrdered By: Jhony Davis on 07-24-2024 Basophils (Bld) [#/Vol] 0.1 10*3/uL 0.0-0.2 [facility] Comment on above: Result Comment: PERF ORMED BY: [place] [address] PATHOLOGIST TOPPIECE CUTTER KARAN TINSLEY M.D. Performed By: #### C MP, CBC #### [facility] [address] [place] [address] [place] Basophils/100 WBC (Bld) 1.3 % . [facility] Comment on above: Performed By: #### C MP, CBC #### [facility] [address] [place] [address] [place] Eosinophils (Bld) [#/Vol] 0.1 10*3/uL 0.0-0.45 [facility] Comment on above: Performed By: #### C MP, CBC #### [address] Eosinophils/100 WBC (Bld) 1.4 % . [facility] Comment on above: Performed By: #### C MP, CBC #### [address] Erythrocyte distribution width (RBC) [Ratio] 13.5 % 11.9-15.3 [facility] Comment on above: Performed By: #### C MP, CBC #### [address] Hematocrit (Bld) [Volume fraction] 38.1 % 34.0-46.4 [facility] Comment on above: Performed By: #### C MP, CBC #### [address] Hemoglobin (Bld) [Mass/Vol] 13.3 g/dL 11.8-15.4 [facility] Comment on above: Performed By: #### C MP, CBC #### [address] Lymphocytes (Bld) [#/Vol] 1.5 10*3/uL 1.00-4.8 [facility] Comment on above: Performed By: #### C MP, CBC #### [address] Lymphocytes/100 WBC (Bld) 25.9 % . [facility] Comment on above: Performed By: #### C MP, CBC #### [address] MCH (RBC) [Entitic mass] 31.0 pg 24.7-34.3 [facility] Comment on above: Performed By: #### C MP, CBC #### [address] MCV (RBC) [Entitic vol] 88.9 fL 80-100 [facility] Comment on above: Performed By: #### C MP, CBC #### [address] Monocytes (Bld) [#/Vol] 0.6 10*3/uL 0.0-0.8 [facility] Comment on above: Performed By: #### C MP, CBC #### [facility] [address] Monocytes/100 WBC (Bld) 10.8 % . [facility] Comment on above: Performed By: #### C MP, CBC #### [facility] [address] Neutrophils (Bld) [#/Vol] 3.6 10*3/uL 1.8-7.7 [facility] Comment on above: Performed By: #### C MP, CBC #### [facility] [address] Neutrophils/100 WBC (Bld) 60.6 % . [facility] Comment on above: Performed By: #### C MP, CBC #### [facility] [address] Platelet mean volume (Bld) [Entitic vol] 7.5 fL 6.3-10.7 [facility] Comment on above: Performed By: #### C MP, CBC #### [facility] [address] Platelets (Bld) [#/Vol] 182 10*3/uL 150-450 [facility] Comment on above: Performed By: #### C MP, CBC #### [facility] [address] RBC (Bld) [#/Vol] 4.29 10*6/uL 3.60-5.00 [facility] Comment on above: Performed By: #### C MP, CBC #### [facility] [address] [place] [address] [place] WBC (Bld) [#/Vol] 6.0 10*3/uL 3.8-11.6 [facility] Comment on above: Performed By: #### C MP, CBC #### [facility] [address] Complete Blood Count Auto Di ffon 07-24-2024 Mean Corpuscular HGB Conc 34.9 g/dL Normal 32.0-35.0 [facility] Comment on above: Performed By: #### C MP, CBC #### [address] NRBC% 0.0 /100{WBC} Normal 0-0.5 [facility] Comment on above: Performed By: #### C MP, CBC #### [address] Comprehensive Metabolic Pane clarita 07-24-2024 Albumin [Mass/Vol] 3.3 g/dL Low 3.5-5.7 [facility] Comment on above: Performed By: #### C MP, CBC #### [address] Creatinine Clr Calc Pharmacy 39.82 Normal [facility] Comment on above: Result Comment: PERF ORMED BY: [place] [address] PATHOLOGIST TOPPIECE CUTTER KARAN TINSLEY M.D. Performed By: #### C MP, CBC #### [address] GFR/1.73 sq M.predicted MDRD (S/P/Bld) [Vol rate/Area] mL/min/{1.73_m2} Normal [facility] Comment on above: Performed By: #### C MP, CBC #### [address] Comprehensive Metabolic Pane lOrdered By: Jhony Davis on 07-24-2024 Albumin/Globulin [Mass ratio] 1.3 {ratio} [facility] Comment on above: Performed By: #### C MP, CBC #### [address] ALP [Catalytic activity/Vol] 39 U/L 34-104 [facility] Comment on above: Performed By: #### C MP, CBC #### [address] [place] [address] [place] ALT [Catalytic activity/Vol] 9 U/L 7-52 [facility] Comment on above: Performed By: #### C MP, CBC #### [address] Anion gap [Moles/Vol] 9.7 mmol/L 6.0-15.0 [facility] Comment on above: Performed By: #### C MP, CBC #### [address] AST [Catalytic activity/Vol] 25 U/L 13-39 [facility] Comment on above: Performed By: #### C MP, CBC #### [address] Bilirubin [Mass/Vol] 0.8 mg/dL 0.3-1.0 [facility] Comment on above: Performed By: #### C MP, CBC #### [facility] [address] [place] [address] Calcium [Mass/Vol] 8.7 mg/dL 8.6-10.3 [facility] Comment on above: Performed By: #### C MP, CBC #### [facility] [address] [place] [address] Chloride [Moles/Vol] 101 mmol/L 98-107 [facility] Comment on above: Performed By: #### C MP, CBC #### [facility] [address] [place] [address] CO2 [Moles/Vol] 26.0 mmol/L 21.0-31.0 [facility] Comment on above: Performed By: #### C MP, CBC #### [facility] [address] [place] [address] Creatinine [Mass/Vol] 0.87 mg/dL 0.60-1.20 [facility] Comment on above: Performed By: #### C MP, CBC #### [facility] [address] [place] [address] Globulin (S) [Mass/Vol] 2.5 g/dL [facility] Comment on above: Performed By: #### C MP, CBC #### [address] Glucose [Mass/Vol] 89 mg/dL 70-100 [facility] Comment on above: Result Comment: [place] [facility] Glucose Reference Range is dependent on time and content of last meal. Glucose of more than 200 mg/dL in a nonstressed, ambulatory subject supports the diagnosis of Diabetes Mellitus. ADA recommended reference range Performed By: #### C MP, CBC #### [address] ADA recommended refe rence rangeRandom Glucose Reference Range is dependent on time and content of last meal. Glucose of more than 200 mg/dL in a nonstressed, ambulatory subject supports the diagnosis of Diabetes Mellitus. Potassium [Moles/Vol] 3.7 mmol/L 3.5-5.1 [facility] Comment on above: Result Comment: Hemo lysis is present at a level that could interfere with the result. Contact lab if redraw is required Performed By: #### C MP, CBC #### [address] Hemolysis is present at a level that could interfere with the result.Contact lab if redraw is required Protein [Mass/Vol] 5.8 g/dL Low 6.4-8.9 [facility] Comment on above: Performed By: #### C MP, CBC #### [address] Sodium [Moles/Vol] 133 mmol/L Low 136-145 [facility] Comment on above: Performed By: #### C MP, CBC #### [address] Urea nitrogen [Mass/Vol] 12 mg/dL - [facility] Comment on above: Performed By: #### C MP, CBC #### [address] Creatinine [Mass/volume] in Serum or PlasmaOrdered By: Jhony Davis on 07-24-2024 Creatinine [Mass/Vol] Creatinine [Mass/v olume] in Serum or Plasma 0.60-1.20 [facility] echo transthoracicon [facility] echo transthoracic [facility] [place] [address] [place] [id number] Echocardiogram Signed Patient: Janelle Burt MR#: [id number] : 1940 Acct:[id number] Age/Sex: 83 / F ADM Date: 07/22/24 Loc: Room: [address] [place] [address] Type: ADM IN Attending Dr: Jovani Sibley MD Ordering Provider: Jhony Davis MD Date of Service: 07/23/24 [facility] echo transthoracic: CVA Copies to: MD Jhony Phillips MD RDCS, RVT BSA: 1.7 m2 BP: 121/58 mmHg HR: 62 Reason For Study: CVA History: CVA, HLD, HTN, CKD, FS Interpretation Summary Ejection Fraction = 60-65%. Mild concentric left ventricular hypertrophy. The left ventricular wall motion is normal. A variety of Doppler measurements indicate normal left ventricular diastolic function. There is trace mitral regurgitation. There is trace tricuspid regurgitation. There is no comparison study available. Procedure/Quality: A two-dimensional transthoracic echocardiogram with color flow and Doppler was performed. The study was technically good in quality. Left Ventricle: The left ventricular size is normal. Mild concentric left ventricular hypertrophy. Ejection Fraction = 60-65%. A variety of Doppler measurements indicate normal left ventricular diastolic function. The left ventricular wall motion is normal. Left Atrium: The left atrium appears normal in size. No bubble study. Right Atrium: The right atrium appears normal in size. Right Ventricle: The right ventricle is normal in size and function. Aortic Valve: The aortic valve is normal in structure. No hemodynamically significant valvular aortic stenosis. No aortic regurgitation is present. Mitral Valve: The mitral valve is normal in structure. No significant mitral valve stenosis. There is trace mitral regurgitation. Tricuspid Valve: The tricuspid valve is normal in structure. There is trace tricuspid regurgitation. Pulmonic Valve: The pulmonic valve is not well visualized. No significant pulmonic regurgitation. Arteries: The aortic root is normal size. Pericardium/Pleura: No pericardial effusion seen. IVC/Hepatic Veins: The inferior vena cava is normal in size, with a normal collapsibility index. Measurements with Normals IVSd: 1.2 cm (0.7-1.1 cm)LVIDd: 4.1 cm (3.7-5.4 cm) LVPWd: 1.2 cm (0.7-1.1 cm)LVIDs: 2.6 cm (2.3-3.6 cm) LA dimension: 3.4 cm (2.3-4.0 cm)Ao root diam: 2.9 cm(2.0-3.6 cm) asc Aorta Diam: 2.9 cm(2.1-3.4cm) Doppler with Normals RVSP(TR): 37.0 mmHg (18-35mmHg) LV V1 max: 93.0 cm/sec (0.7-1.7m/s)MV E max gaurav: 100.0 cm/sec(0.8-1.3m/s) MV A max gaurav: 100.4 cm/sec(0.0-0.0m/s) MV E/A: 1.00 (<1.5) MMode/2D Measurements Calculations TAPSE: 1.9 cm FS: 37.3 % Ao root area: LVOT diam: 1.9 cm RV S Gaurav: EDV(Teich): 73.7 ml 6.4 cm2 LVOT area: 2.8 cm2 10.3 cm/sec ESV(Teich): 23.7 ml EF(Teich): 67.8 % __ LVLd ap4: 6.0 cm SV(MOD-sp4): 31.2 ml LAV(MOD-sp4): LA A4 area: EDV(MOD-sp4): 60.0 ml 21.7 cm2 47.5 ml LA length (vol): LVLs ap4: 5.1 cm 6.1 cm ESV(MOD-sp4): 16.3 ml EF(MOD-sp4): 65.7 % __ RA Volume: 53.0 ml RA Volume Index: 31.7 ml/m2 Doppler Measurements Calculations MV dec time: MV V2 max: E/E' lat: 18.0 MV dec slope: 0.32 sec 107.2 cm/sec E/E' med: 24.8 MV max P.8 cm/sec2 95.0 mmHg MV V2 mean: 64.4 cm/sec MV mean P.9 mmHg MV V2 VTI: 46.8 cm MVA(VTI): 1.5 cm2 __ Ao V2 max: LV V1 max PG: MR max gaurav: TV max P.0 mmHg 111.0 cm/sec 3.5 mmHg 487.7 cm/sec Ao max P.9 mmHgLV V1 mean PG: MR max PG: Ao mean P.0 mmHg 95.1 mmHg 3.0 mmHg LV V1 mean: Ao V2 mean: 64.9 cm/sec 76.8 cm/sec LV V1 VTI: 25.1 cm Ao V2 VTI: 29.2 cm TALYA(I,D): 2.4 cm2 TALYA(V,D): 2.4 cm2 __ TR max gaurav: 291.5 cm/sec TR max P.0 mmHg RAP systole: 3.0 mmHg Measurements from QLAB CI (): ED Mass (): LAEF (): 60.0 % BSA (): 1.7 m2 97.0 grams 2.0 l/min/m2 __ EREN (): LAVmax (): LAVmin (): Pat Height (): 48.0 ml/m2 80.0 ml 33.0 ml 160.0 cm __ Pat Weight (): 63.8 kg QLAB Heart Model EDV ()_phl: 85.0 ml EF ()_phl: 66.0 % ED Current ()_phl: 60.0 % ESV ()_phl: 29.0 ml HR ()_phl: 60.0 BPMES Current ()_phl: 30.0 % LV Length ED ()_phl: 72.0 mmSV ()_phl: 56.0 ml ED Default ()_phl: 60.0 % LV Length ES ()_phl: 59.0 mm ES Default ()_phl: 30.0 % Transcribed By: MAURICIO Performed At: 07/24/24 1212 Signed By: Harshal Rosen MD 07/24/24 1559 Normal [facility] Eosinophils Auto (Bld) [#/Vo l]Ordered By: Jhony Davis on 07-24-2024 Eosinophils (Bld) [#/Vol] Automated eosinophil count 0.0-0.45 [facility] Eosinophils/100 WBC Auto (Bl d)Ordered By: Jhony Davis on 07-24-2024 Eosinophils/100 WBC (Bld) Automated eosinophil % . [facility] Erythrocyte distribution wid th Auto (RBC) [Ratio]Ordered By: Jhony Davis on 07-24-2024 Erythrocyte distribution width (RBC) [Ratio] Erythrocyte distribution width [Ratio] by Automated count 11.9-15.3 [facility] Globulin Calc (S) [Mass/Vol] Ordered By: Jhony Davis on 07-24-2024 Globulin (S) [Mass/Vol] Serum globulin m easurement by calculation (mass/volume) [facility] Glucose [Mass/volume] in Ser um or PlasmaOrdered By: Jhony Davis on 07-24-2024 Glucose [Mass/Vol] Glucose [Mass/volume ] in Serum or Plasma 70-100 [facility] Comment on above: ADA recommended refe rence rangeRandom Glucose Reference Range is dependent on time and content of last meal. Glucose of more than 200 mg/dL in a nonstressed, ambulatory subject supports the diagnosis of Diabetes Mellitus. Hematocrit Auto (Bld) [Volum e fraction]Ordered By: Jhony Davis on 07-24-2024 Hematocrit (Bld) [Volume fraction] Hematocrit [Volume Fraction] of Blood by Automated count 34.0-46.4 [facility] Hemoglobin [Mass/volume] in BloodOrdered By: Jhony Davis on 07-24-2024 Hemoglobin (Bld) [Mass/Vol] Hemoglobin [Mass/volume] in Blood 11.8-15.4 [facility] Leukocytes [#/volume] correc chacho for nucleated erythrocytes in Blood by Automated counOrdered By: Jhony Davis on 07-24-2024 WBC corrected for nucl RBC Auto (Bld) [#/Vol] Leukocytes [#/volume] corrected for nucleated erythrocytes in Blood by Automated coun 3.8-11.6 [facility] WBC corrected for nucl RBC Auto (Bld) [#/Vol] 6.0 10*3/uL 3.8-11.6 [facility] Lymphocytes Auto (Bld) [#/Vo l]Ordered By: Jhony Davis on 07-24-2024 Lymphocytes (Bld) [#/Vol] Lymphocytes [#/volume] in Blood by Automated count 1.00-4.8 [facility] Lymphocytes/100 WBC Auto (Bl d)Ordered By: Jhony Davis on 07-24-2024 Lymphocytes/100 WBC (Bld) Lymphocytes/100 leukocytes in Blood by Automated count . [facility] MCH Auto (RBC) [Entitic mass ]Ordered By: Jhony Davis on 07-24-2024 MCH (RBC) [Entitic mass] MCH [Entitic mass] by Automated count 24.7-34.3 [facility] MCHC Auto (RBC) [Mass/Vol]Or dered By: Jhony Davis on 07-24-2024 MCHC (RBC) [Mass/Vol] MCHC [Mass/volume] by Automated count 32.0-35.0 [facility] MCHC (RBC) [Mass/Vol] 34.9 g/dL 32.0-35.0 [facility] MCV Auto (RBC) [Entitic vol] Ordered By: Jhony Davis on 07-24-2024 MCV (RBC) [Entitic vol] MCV [Entitic vol ume] by Automated count 80-100 [facility] MR head/brain wo/w conon MR head/brain wo/w con [facility] Main [address] [address] MRI Report Signed Patient: Janelle Burt MR#: [id number] : 1940 Acct:[id number] Age/Sex: 83 / F ADM Date: 07/22/24 Loc: 4C Room: [address] [place] [address] Type: ADM IN Attending Dr: Jovani Sibley MD Copies to: MD Jovani Doan MD Ordering Provider: Jhony Davis MD Date of Service: 07/24/24 MR/MR head/brain wo/w con: Altered mental status MRI BRAIN WITHOUT AND WITH INTRAVENOUS CONTRAST CLINICAL DATA: Sudden onset altered mental status, strokelike symptoms COMPARISON: Stroke CT 07/22/2024 Multiecho, multiplanar imaging of the brain was performed before and after intravenous administration of 13 mL of ProHance. Findings: No restricted diffusion. Generalized involutional changes. Moderate chronic small vessel ischemic disease. Remote right RIVET MAKER distribution stroke with resultant encephalomalacia. Major intracranial arterial vascular flow voids are preserved. No shift midline structures. Basal cisterns are patent. Cataract surgery. No abnormal postcontrast enhancement identified. Mild paranasal sinus thickening. MR/MR head/brain wo/w con IMPRESSION: Moderate chronic small vessel ischemic disease and mild central involutional change. Negative acute stroke or acute intracranial process by MRI. Impression dictated by: Charli Ferrera M.D. 07/24/2024 6:04 PM Dictation Location: [place] [address] Transcribed By: [facility] 07/24/241803 Dictated By: Charli Ferrera MD 07/24/241800 Signed By: 07/24/241803 Normal [facility] Magnetic resonance imaging r eportOrdered By: Charli Ferrera on 07-24-2024 Study report [facility] [place] [address] MRI Report Signed Patient: Janelle Burt MR#: [id number] : 1940 Acct:[id number] Age/Sex: 83 / F ADM Date: 5 Loc: 4C Room: [address] [place] [address] Type: ADM IN Attending Dr: Jovani Sibley MD Copies to: MD Jovani Doan MD~ Ordering Provider: Jhony Davis MD Date of Service: 07/24/24 MR/MR head/brain wo/w con: Altered mental status MRI BRAIN WITHOUT AND WITH INTRAVENOUS CONTRAST CLINICAL DATA: Sudden onset altered mental status, strokelike symptoms COMPARISON: Stroke CT 07/22/2024 Multiecho, multiplanar imaging of the brain was performed before and after intravenous administration of 13 mL of ProHance. Findings: No restricted diffusion. Generalized involutional changes. Moderate chronic small vessel ischemic disease. Remote right RIVET MAKER distribution stroke with resultant encephalomalacia. Major intracranial arterial vascular flow voids are preserved. No shift midline structures. Basal cisterns are patent. Cataract surgery. No abnormal postcontrast enhancement identified. Mild paranasal sinus thickening. MR/MR head/brain wo/w con IMPRESSION: Moderate chronic small vessel ischemic disease and mild central involutional change. Negative acute stroke or acute intracranial process by MRI. Impression dictated by: Charli Ferrera M.D. 07/24/2024 6:04 PM Dictation Location: [place] [address] Transcribed By: FUENTES 07/24/241803 Dictated By: Charli Ferrera MD 07/24/241800 Signed By: 07/24/24 180 [facility] Work Phone: Monocytes Auto (Bld) [#/Vol] Ordered By: Jhony Davis on 07-24-2024 Monocytes (Bld) [#/Vol] Automated blood monocyte count 0.0-0.8 [facility] Monocytes/100 WBC Auto (Bld) Ordered By: Jhony Davis on 07-24-2024 Monocytes/100 WBC (Bld) Automated monocyte % . [facility] Neutrophils Auto (Bld) [#/Vo l]Ordered By: Jhony Davis on 07-24-2024 Neutrophils (Bld) [#/Vol] Neutrophils [#/volume] in Blood by Automated count 1.8-7.7 [facility] Neutrophils/100 WBC Auto (Bl d)Ordered By: Jhony Davis on 07-24-2024 Neutrophils/100 WBC (Bld) Automated neutrophil % . [facility] No Panel InformationOrdered By: Jhony Davis on 07-24-2024 Estimated GFR (CKD-EPI) > 60.0 mL/Min [facility] Creatinine Clearance (Chem 39.82 [facility] Nucleated erythrocytes [Pres ence] in Blood by Automated countOrdered By: Jhony Davis on 07-24-2024 Nucleated RBC Auto Ql (Bld) Nucleated erythrocytes [Presence] in Blood by Automated count 0-0.5 [facility] Nucleated RBC Auto Ql (Bld) 0.0 /100{WBC} 0-0.5 [facility] Platelet mean volume Auto (B ld) [Entitic vol]Ordered By: Jhony Davis on 07-24-2024 Platelet mean volume (Bld) [Entitic vol] Platelet mean volume [Entitic volume] in Blood by Automated count 6.3-10.7 [facility] Platelets Auto (Bld) [#/Vol] Ordered By: Jhony Davis on 07-24-2024 Platelets (Bld) [#/Vol] Platelets [#/vol ume] in Blood by Automated count 150-450 [facility] Potassium [Moles/volume] in Serum or PlasmaOrdered By: Jhony Davis on 07-24-2024 Potassium [Moles/Vol] Potassium [Moles/v olume] in Serum or Plasma 3.5-5.1 [facility] Comment on above: Hemolysis is present at a level that could interfere with the result.Contact lab if redraw is required Protein [Mass/volume] in Ser um or PlasmaOrdered By: Jhony Davis on 07-24-2024 Protein [Mass/Vol] Protein [Mass/volume ] in Serum or Plasma Low 6.4-8.9 [facility] RBC Auto (Bld) [#/Vol]Ordere d By: Jhony Davis on 07-24-2024 RBC (Bld) [#/Vol] Erythrocytes [#/volu me] in Blood by Automated count 3.60-5.00 [facility] Serum or plasma albumin/glob ulin mass ratioOrdered By: Jhony Davis on 07-24-2024 Albumin/Globulin [Mass ratio] Serum or plasma albumin/globulin mass ratio [facility] Serum or plasma anion gap de terminationOrdered By: Jhony Davis on 07-24-2024 Anion gap [Moles/Vol] Serum or plasma an ion gap determination 6.0-15.0 [facility] Sodium [Moles/volume] in Ser um or PlasmaOrdered By: Jhony Davis on 07-24-2024 Sodium [Moles/Vol] Sodium [Moles/volume ] in Serum or Plasma Low 136-145 [facility] Urea nitrogen [Mass/volume] in Serum or PlasmaOrdered By: Jhony Davis on 07-24-2024 Urea nitrogen [Mass/Vol] Urea nitrogen [Mass/volume] in Serum or Plasma 7-25 [facility] WBC Auto (Bld) [#/Vol]Ordere d By: Jhony Davis on 07-24-2024 WBC (Bld) [#/Vol] Leukocytes [#/volume ] in Blood by Automated count 3.8-11.6 [facility] Alanine aminotransferase [En zymatic activity/volume] in Serum or PlasmaOrdered By: Jon Felder on 07-23-2024 ALT [Catalytic activity/Vol] Alanine aminotransferase [Enzymatic activity/volume] in Serum or Plasma 7-52 [facility] Albumin [Mass/volume] in Ser um or Plasma by Bromocresol green (BCG) dye binding methoOrdered By: Jon Felder on 07-23-2024 Albumin BCG dye [Mass/Vol] Albumin [Mass/volume] in Serum or Plasma by Bromocresol green (BCG) dye binding metho 3.5-5.7 [facility] Alkaline phosphatase [Enzyma tic activity/volume] in Serum or PlasmaOrdered By: Jon Felder on 07-23-2024 ALP [Catalytic activity/Vol] Alkaline phosphatase [Enzymatic activity/volume] in Serum or Plasma 34-104 [facility] Arterial Blood Gason 025 ABG Base Excess -2.3 mmol/L Normal -3.0-3.0 [facility] Comment on above: Performed By: #### C MP, CBC #### [address] ABG Frac Inspired O2 21 % Normal [facility] Comment on above: Performed By: #### C MP, CBC #### [address] ABG Oxygen Content 7.8 mmol/L Normal 6.6-9.7 [facility] Comment on above: Performed By: #### C MP, CBC #### [address] ABG Oxygen Saturation 95.8 % Normal 95.0-100.0 [facility] Comment on above: Performed By: #### C MP, CBC #### [address] ABG PCO2 29.7 mm[Hg] Off scale low 35.0-45.0 [facility] Comment on above: Performed By: #### C MP, CBC #### [address] ABG PH 7.46 High 7.35-7.45 [facility] Comment on above: Performed By: #### C MP, CBC #### [address] ABG PO2 82.4 mm[Hg] Normal 80.0-100.0 [facility] Comment on above: Performed By: #### C MP, CBC #### [address] Respiratory Critical Normal [facility] Comment on above: Result Comment: Crit ical Value called on: 07/23/2024 at 11:06 PERFORMED BY: [place] [address] PATHOLOGIST TOPPIECE CUTTER KARAN TINSLEY M.D. Performed By: #### C MP, CBC #### [address] VBG Draw Site Left Radial Normal [facility] Comment on above: Performed By: #### C MP, CBC #### [address] Arterial Blood GasOrdered By : Jhony Davis on 07-23-2024 CO2 [Moles/Vol] 21.4 mmol/L Low 23.0-27.0 [facility] Comment on above: Performed By: #### C MP, CBC #### [address] HCO3 (Bld) [Moles/Vol] 20.5 mmol/L Low 23.0-29.0 [facility] Comment on above: Performed By: #### C MP, CBC #### [address] Aspartate aminotransferase [ Enzymatic activity/volume] in Serum or PlasmaOrdered By: Jon Felder on 07-23-2024 AST [Catalytic activity/Vol] Aspartate aminotransferase [Enzymatic activity/volume] in Serum or Plasma 13-39 [facility] Bilirubin.total [Mass/volume ] in Serum or PlasmaOrdered By: Jon Felder on 07-23-2024 Bilirubin [Mass/Vol] Bilirubin.total [Mass/volume] in Serum or Plasma 0.3-1.0 [facility] Blood Cultureon 07-23-2024 Bacteria identified Cx Nom (Bld) NO GROWTH 5 DAYS PERFORMED BY: [place] [address] PATHOLOGIST TOPPIECE CUTTER KARAN TINSLEY M.D. Normal [facility] Comment on above: Performed By: #### C MP, CBC #### [address] Bacteria identified Cx Nom (Bld) NO GROWTH 5 DAYS PERFORMED BY: [place] [address] PATHOLOGIST TOPPIECE CUTTER KARAN TINSLEY M.D. Normal [facility] Comment on above: Performed By: #### C UU #### [address] angio neckon 07-23-2024 CT angio neck [facility] Main [place] [address] [place] [address] CT Scan Report Signed Patient: Janelle Burt MR#: [id number] : 1940 Acct:[id number] Age/Sex: 83 / F ADM Date: 07/22/24 Loc: Room: 3M2172-7 Type: ADM IN Attending Dr: Jhony Davis MD Copies to: MD Asad Doan Jr, MD Ordering Provider: Asad Mcnally Jr, MD Date of Service: 07/22/24 CT/CT angio head: fall, mild L weakness, anticoag ([id number]) CT/CT angio neck: fall, mild L weakness, anticoag CT angio head, CT angio neck 07/22/2024 9:13 PM SIGNS AND SYMPTOMS: fall, mild L weakness, anticoag TECHNIQUE: Multi-detector CT angiography axial slices of the head and neck during intravenous administration of IV contrast material. Sagittal, coronal, and 3-D reconstructions were performed and viewed on a separate workstation. CT was performed with one or more of the following dose reduction techniques: Automated exposure control, adjustment of the mA and/or kV according to patient size, or use of iterative reconstruction technique. Stenoses were measured using the NASCET criteria. COMPARISON: CT head 07/22/2024 FINDINGS: MILD PLAQUE AORTIC ARCH AND GREAT VESSELS. THREE-VESSEL ARCH. CAROTID SYSTEMS ARE PATENT WITH MILD PLAQUE BOTH BIFURCATIONS EXTENDING INTO THE PROXIMAL ICAS WITH LESS THAN 50% NARROWING. VERTEBRAL ARTERIES ARE CODOMINANT WITH MILD PLAQUE INVOLVING BOTH OSTIA. INTRACRANIAL ICAS ARE PATENT. ANTERIOR CEREBRAL ARTERIES ARE PATENT. SHORT SEGMENT OF MILD TO MODERATE NARROWING INVOLVING THE LEFT ADA A2 AND A3 SEGMENT. THE MCAS ARE PATENT PROXIMALLY. THERE IS MODERATE NARROWING RIGHT DISTAL M1 SEGMENTS BASILAR ARTERY IS PATENT. THERE IS MODERATE SEVERE NARROWING LEFT P1 P2 JUNCTION. MODERATE NARROWING RIGHT P1 SEGMENT. MILD DIFFUSE NARROWING INVOLVING THE REMAINDER OF THE TOOL GRINDER OPERATOR SURFACE. NO SACCULAR ANEURYSM. MULTILEVEL DEGENERATIVE CHANGES THROUGHOUT THE CERVICAL SPINE CT/CT angio head IMPRESSION: Negative for large vessel occlusion or hemodynamically significant stenosis involving the cervical vessels. Moderate burden of disease identified intracranially notably involving right distal M1 segment. Left A2 A3 segment. Moderate severe narrowing left P1 P2 segment RIVET MAKER. Moderate narrowing right P1 segment RIVET MAKER. Up to 50% narrowing involving both proximal ICAs Impression dictated by: Charli Ferrera M.D. 07/23/2024 8:46 AM Dictation Location: [facility]IO[facility]-29 Transcribed By: FUENTES 07/23/24 0846 Dictated By: Charli Ferrera MD 07/23/24 0835 Signed By: 07/23/24 0846 Normal [facility] CT head stroke alert wo cono n 07-23-2024 CT head stroke alert wo con [facility] Main [place] [address] [place] [address] CT Scan Report Signed Patient: Janelle Burt MR#: [id number] : 1940 Acct:[id number] Age/Sex: 83 / F ADM Date: 07/22/24 Loc: Room: [address] [place] [address] Type: ADM IN Attending Dr: Jhony Davis MD Copies to: MD Asad Doan Jr, MD Ordering Provider: Asad Mcnally Jr, MD Date of Service: 07/22/24 CT/CT head stroke alert wo con: stroke CT BRAIN WITHOUT CONTRAST: CLINICAL HISTORY: Stroke alert, left-sided weakness with confusion, possible fall, seizure activity ER COMPARISON: None TECHNIQUE: Contiguous axial unenhanced images were obtained through the brain. This CT exam was performed using one or more following dose reduction techniques: Automated exposure control, adjustment of the mA and/or kV according to patient size, or use of iterative reconstruction technique. FINDINGS: Generalized involutional changes with prominence of ventricles and sulci. No evidence acute bleed, midline shift or mass effect. Right RIVET MAKER distribution encephalomalacia noted. Moderate chronic small vessel ischemic disease. Intracranial vascular calcification. No calvarial fracture. Mild ethmoid sinus mucosal thickening. Cataract surgery. CT/CT head stroke alert wo con IMPRESSION: Chronic microvascular disease and Central involutional changes without evidence acute bleed or midline shift. Impression dictated by: Charli Ferrera M.D. 07/23/2024 7:56 AM Dictation Location: [facility]29 Transcribed By: FUENTES 07/23/24 0756 Dictated By: Charli Ferrera MD 07/23/24 0753 Signed By: 07/23/24 075 Normal [facility] Calcium [Mass/volume] in Ser um or PlasmaOrdered By: Jon Felder on 04-27-2025 Calcium [Mass/Vol] Calcium [Mass/volume ] in Serum or Plasma 8.6-10.3 [facility] Carbon dioxide, total [Moles /volume] in Serum or PlasmaOrdered By: Jon Felder on 07-23-2024 CO2 [Moles/Vol] Carbon dioxide, tota l [Moles/volume] in Serum or Plasma 21.0-31.0 [facility] Chloride [Moles/volume] in S l[place] or PlasmaOrdered By: Jon Felder on 07-23-2024 Chloride [Moles/Vol] Chloride [Moles/vol ume] in Serum or Plasma Low 98-107 [facility] Complete Blood Count Auto Di ffon 07-23-2024 Basophils (Bld) [#/Vol] 0.1 10*3/uL Normal 0.0-0.2 [facility] Comment on above: Result Comment: PERF ORMED BY: [place] [address] PATHOLOGIST TOPPIECE CUTTER KARAN TINSLEY M.D. Performed By: #### C MP, CBC #### [address] Basophils/100 WBC (Bld) 0.5 % Normal . Eron scott [facility] Comment on above: Performed By: #### C MP, CBC #### [address] Eosinophils (Bld) [#/Vol] 0.0 10*3/uL Normal 0.0-0.45 [facility] Comment on above: Performed By: #### C MP, CBC #### [place] [address] [place] Eosinophils/100 WBC (Bld) 0.1 % Normal . [facility] Comment on above: Performed By: #### C MP, CBC #### [address] Erythrocyte distribution width (RBC) [Ratio] 13.7 % Normal 11.9-15.3 [facility] Comment on above: Performed By: #### C MP, CBC #### [address] Hematocrit (Bld) [Volume fraction] 41.8 % Normal 34.0-46.4 [facility] Comment on above: Performed By: #### C MP, CBC #### [address] Hemoglobin (Bld) [Mass/Vol] 14.6 g/dL Normal 11.8-15.4 [facility] Comment on above: Performed By: #### C MP, CBC #### [address] Lymphocytes (Bld) [#/Vol] 1.2 10*3/uL Normal 1.00-4.8 [facility] Comment on above: Performed By: #### C MP, CBC #### [address] Lymphocytes/100 WBC (Bld) 9.4 % Normal . [facility] Comment on above: Performed By: #### C MP, CBC #### [address] MCH (RBC) [Entitic mass] 30.8 pg Normal 24.7-34.3 [facility] Comment on above: Performed By: #### C MP, CBC #### [address] MCV (RBC) [Entitic vol] 88.6 fL Normal 80-100 T he [facility] Comment on above: Performed By: #### C MP, CBC #### [address] Mean Corpuscular HGB Conc 34.8 g/dL Normal 32.0-35.0 [facility] Comment on above: Performed By: #### C MP, CBC #### [address] Monocytes (Bld) [#/Vol] 0.5 10*3/uL Normal 0.0-0.8 [facility] Comment on above: Performed By: #### C MP, CBC #### [place] [address] [place] Monocytes/100 WBC (Bld) 18.56 % Normal 0.00-20.00 T sonia [facility] Comment on above: Performed By: #### C MP, CBC #### [address] Monocytes/100 WBC (Bld) 4.5 % Normal . [facility] Comment on above: Performed By: #### C MP, CBC #### [address] Neutrophils (Bld) [#/Vol] 10.5 10*3/uL High 1.8-7.7 [facility] Comment on above: Performed By: #### C MP, CBC #### [address] Neutrophils/100 WBC (Bld) 85.5 % Normal . [facility] Comment on above: Performed By: #### C MP, CBC #### [address] NRBC% 0.0 /100{WBC} Normal 0-0.5 [facility] Comment on above: Performed By: #### C MP, CBC #### [address] Platelet mean volume (Bld) [Entitic vol] 7.8 fL Normal 6.3-10.7 [facility] Comment on above: Performed By: #### C MP, CBC #### [place] [address] [place] Platelets (Bld) [#/Vol] 214 10*3/uL Normal 150-450 [facility] Comment on above: Performed By: #### C MP, CBC #### [place] [address] [place] RBC (Bld) [#/Vol] 4.72 10*6/uL Normal 3.60-5.00 [facility] Comment on above: Performed By: #### C MP, CBC #### [place] [address] [place] WBC (Bld) [#/Vol] 12.3 10*3/uL High 3.8-11.6 [facility] Comment on above: Performed By: #### C MP, CBC #### [address] Comprehensive Metabolic Pane clarita 07-23-2024 Albumin Level Normal 3.5-5.7 [facility] Comment on above: Result Comment: Hemo lysis is present at a level that could interfere with the result. --- 07/23/24 0531 --- [place] previously reported as: 4.0 gm/dL Hemolysis is present at a level that could interfere with the result. Performed By: #### C MP, CBC #### [address] Albumin/Globulin Ratio Normal Th e [facility] Comment on above: Result Comment: Spec imen hemolyzed, redraw requested Performed By: #### C MP, CBC #### [address] ALP [Catalytic activity/Vol] 42 U/L Normal 34-104 [facility] Comment on above: Performed By: #### C MP, CBC #### [address] ALT [Catalytic activity/Vol] 12 U/L Normal 7-52 [facility] Comment on above: Performed By: #### C MP, CBC #### [address] Anion gap [Moles/Vol] Not performed Normal 6.0-15.0 [facility] Comment on above: Performed By: #### C MP, CBC #### [address] Aspartate Amino Transferase Normal 13-39 [facility] Comment on above: Result Comment: Spec imen hemolyzed, redraw requested Performed By: #### C MP, CBC #### [address] Bilirubin [Mass/Vol] 0.6 mg/dL Normal 0.3-1.0 [facility] Comment on above: Performed By: #### C MP, CBC #### [address] Calcium [Mass/Vol] 9.1 mg/dL Normal 8.6-10.3 [facility] Comment on above: Performed By: #### C MP, CBC #### [address] Chloride [Moles/Vol] 97 mmol/L Low 98-107 [facility] Comment on above: Performed By: #### C MP, CBC #### [address] CO2 [Moles/Vol] 22.5 mmol/L Normal 21.0-31.0 [facility] Comment on above: Performed By: #### C MP, CBC #### [address] Creatinine [Mass/Vol] 0.95 mg/dL Normal 0.60-1.20 [facility] Comment on above: Performed By: #### C MP, CBC #### [address] Creatinine Clr Calc Pharmacy 36.47 Normal [facility] Comment on above: Performed By: #### C MP, CBC #### [address] Estimated GFR 59.079 mL/Min Normal [facility] Comment on above: Performed By: #### C MP, CBC #### [place] [address] [place] Globulin Normal [facility] Comment on above: Result Comment: Spec imen hemolyzed, redraw requested Performed By: #### C MP, CBC #### [address] Glucose [Mass/Vol] 113 mg/dL High 70-100 [facility] Comment on above: Result Comment: [place] Glucose Reference Range is dependent on time and content of last meal. Glucose of more than 200 mg/dL in a nonstressed, ambulatory subject supports the diagnosis of Diabetes Mellitus. ADA recommended reference range Performed By: #### C MP, CBC #### [facility] [address] [place] [address] [place] Potassium Normal 3.5-5.1 [facility] Comment on above: Result Comment: Spec imen hemolyzed, redraw requested Performed By: #### C MP, CBC #### [facility] [address] [place] [address] [place] Sodium Normal 136-145 [facility] Comment on above: Result Comment: Spec imen hemolyzed, redraw requested Performed By: #### C MP, CBC #### [place] [address] [place] Total Protein Normal 6.4-8.9 [facility] Comment on above: Result Comment: Spec imen hemolyzed, redraw requested Performed By: #### C MP, CBC #### [place] [address] [place] Urea nitrogen [Mass/Vol] 15 mg/dL Normal 7-25 [facility] Comment on above: Performed By: #### C MP, CBC #### [place] [address] [place] Albumin [Mass/Vol] 4.0 g/dL Normal 3.5-5.7 [facility] Comment on above: Performed By: #### C UU #### [place] [address] [place] Albumin/Globulin [Mass ratio] 1.3 {ratio} Normal [facility] Comment on above: Performed By: #### C UU #### [place] [address] [place] ALP [Catalytic activity/Vol] 50 U/L Normal 34-104 [facility] Comment on above: Performed By: #### C UU #### [place] [address] [place] ALT [Catalytic activity/Vol] 12 U/L Normal 7-52 [facility] Comment on above: Performed By: #### C UU #### [address] Anion gap [Moles/Vol] 15.9 mmol/L High 6.0-15.0 Th e [facility] Comment on above: Performed By: #### C UU #### [address] AST [Catalytic activity/Vol] 22 U/L Normal 13-39 [facility] Comment on above: Performed By: #### C UU #### [address] Bilirubin [Mass/Vol] 0.7 mg/dL Normal 0.3-1.0 [facility] Comment on above: Performed By: #### C UU #### [address] Calcium [Mass/Vol] 9.4 mg/dL Normal 8.6-10.3 [facility] Comment on above: Performed By: #### C UU #### [address] Chloride [Moles/Vol] 95 mmol/L Low 98-107 [facility] Comment on above: Performed By: #### C UU #### [address] CO2 [Moles/Vol] 22.7 mmol/L Normal 21.0-31.0 [facility] Comment on above: Performed By: #### C UU #### [address] Creatinine [Mass/Vol] 1.07 mg/dL Normal 0.60-1.20 [facility] Comment on above: Performed By: #### C UU #### [address] Creatinine Clr Calc Pharmacy 35.22 Normal [facility] Comment on above: Result Comment: PERF ORMED BY: [place] [address] PATHOLOGIST TOPPIECE CUTTER KARAN TINSLEY M.D. Performed By: #### C UU #### [address] Estimated GFR 51.220 mL/Min Normal [facility] Comment on above: Performed By: #### C UU #### [address] Globulin (S) [Mass/Vol] 3.0 g/dL Normal T he [facility] Comment on above: Performed By: #### C UU #### [address] Glucose [Mass/Vol] 129 mg/dL High 70-100 [facility] Comment on above: Result Comment: [facility] Glucose Reference Range is dependent on time and content of last meal. Glucose of more than 200 mg/dL in a nonstressed, ambulatory subject supports the diagnosis of Diabetes Mellitus. ADA recommended reference range Performed By: #### C UU #### [address] Potassium [Moles/Vol] 3.6 mmol/L Normal 3.5-5.1 [facility] Comment on above: Performed By: #### C UU #### [address] Protein [Mass/Vol] 7.0 g/dL Normal 6.4-8.9 [facility] Comment on above: Performed By: #### C UU #### [address] Sodium [Moles/Vol] 130 mmol/L Low 136-145 [facility] Comment on above: Performed By: #### C UU #### [address] Urea nitrogen [Mass/Vol] 16 mg/dL Normal 7-25 [facility] Comment on above: Performed By: #### C UU #### [address] Creatinine [Mass/volume] in Serum or PlasmaOrdered By: Jon Felder on 07-23-2024 Creatinine [Mass/Vol] Creatinine [Mass/v olume] in Serum or Plasma 0.60-1.20 [facility] Globulin Calc (S) [Mass/Vol] Ordered By: Jon Felder on 07-23-2024 Globulin (S) [Mass/Vol] Serum globulin m easurement by calculation (mass/volume) [facility] Glucose [Mass/volume] in Ser um or PlasmaOrdered By: Jon Felder on 07-23-2024 Glucose [Mass/Vol] Glucose [Mass/volume ] in Serum or Plasma High 70-100 [facility] Comment on above: ADA recommended refe rence rangeRandom Glucose Reference Range is dependent on time and content of last meal. Glucose of more than 200 mg/dL in a nonstressed, ambulatory subject supports the diagnosis of Diabetes Mellitus. Laboratory - Microbiology an d Antimicrobial susceptibilityOrdered By: Jon Felder on 07-23-2024 Bacteria identified Cx Nom (Bld) NO GROWTH 5 DAYS [facility] Bacteria identified Cx Nom (Bld) NO GROWTH 5 DAYS [facility] Lactate [Moles/volume] in Se rum or PlasmaOrdered By: Jon Felder on 07-23-2024 Lactate [Moles/Vol] Lactate [Moles/volum e] in Serum or Plasma 0.5-1.9 [facility] Comment on above: Lactic Acid referenc e range has been updated to 0.5 1.9 mmol/L and the critical range of 2.0 or greater. Lactate [Moles/Vol] 1.6 mmol/L 0.5-1.9 [facility] Comment on above: Lactic Acid referenc e range has been updated to 0.5 1.9 mmol/L and the critical range of 2.0 or greater. Lactate [Moles/Vol] Lactate [Moles/volum e] in Serum or Plasma Critically high 0.5-1.9 [facility] Comment on above: Critical Result : Ca lled to and read back by: RADHA MONSALVE at: 07/23/2024 01:22:11 by:DHLactic Acid reference range has been updated to 0.5 1.9 mmol/L and the critical range of 2.0 or greater. Lactic Acidon 07-23-2024 Lactate [Moles/Vol] 4.0 mmol/L Off scale high 0.5-1.9 T [facility] Comment on above: Result Comment: Crit ical Result : Called to and read back by: RADHA MONSALVE at: 07/23/2024 01:22:11 by: Lactic Acid reference range has been updated to 0.5 ? 1.9 mmol/L and the critical range of 2.0 or greater. PERFORMED BY: [place] [address] PATHOLOGIST TOPPIECE CUTTER KARAN TINSLEY M.D. Performed By: #### C MP, CBC #### [address] Lactic Acid Reflexon 025 Lactic Acid Reflex 1.6 mmol/L Normal 0.5-1.9 [facility] Comment on above: Order Comment: PER R Cindy NANCIE COME BACK AT 0600 Result Comment: Lact ic Acid reference range has been updated to 0.5 ? 1.9 mmol/L and the critical range of 2.0 or greater. PERFORMED BY: [place] [address] PATHOLOGIST TOPPIECE CUTTER KARAN TINSLEY M.D. Performed By: #### C MP, CBC #### [address] Magnesiumon 07-23-2024 Magnesium Normal 1.9-2.7 [facility] Comment on above: Result Comment: Spec imen hemolyzed, redraw requested PERFORMED BY: [place] [phone] PATHOLOGIST TOPPIECE CUTTER KARAN TINSLEY M.D. Performed By: #### C MP, CBC #### [facility] [address] [place] [address] Magnesium [Mass/volume] in S lorraine or PlasmaOrdered By: Jon Felder on 07-23-2024 Magnesium [Mass/Vol] Magnesium [Mass/vol ume] in Serum or Plasma 1.9-2.7 [facility] Monocyte distribution width [Entitic volume] in Blood by AutomatedOrdered By: Jon Felder on 07-23-2024 Monocyte distribution width Auto (Bld) [Entitic vol] Monocyte distribution width [Entitic volume] in Blood by Automated 0.00-20.00 [facility] Monocyte distribution width Auto (Bld) [Entitic vol] 18.56 % 0.00-20.00 [facility] No Panel InformationOrdered By: Jhony Davis on 07-23-2024 Arterial Blood Base Excess -2.3 mmol/L -3.0-3.0 [facility] Arterial Blood Oxygen Content 7.8 mmol/L 6.6-9.7 [facility] Arterial Blood Oxygen Saturation 95.8 % 95.0-100.0 [facility] Arterial Blood Partial Pressure CO2 29.7 mm[Hg] Critically low 35.0-45.0 [facility] Arterial Blood Partial Pressure O2 82.4 mm[Hg] 80.0-100.0 [facility] Arterial Blood pH 7.46 High 7.35-7.45 [facility] Blood Gas Critical Value See comment [facility] Comment on above: Critical Value presley d on: 07/23/2024 at 11:06 Blood Gas Sample Site Left radial [facility] FiO2 21 % [facility] No Panel InformationOrdered By: Jon Felder on 07-23-2024 Estimated GFR (CKD-EPI) 51.220 mL/Min [facility] Creatinine Clearance (Chem 35.22 [facility] Potassium [Moles/volume] in Serum or PlasmaOrdered By: Jon Felder on 07-23-2024 Potassium [Moles/Vol] Potassium [Moles/v olume] in Serum or Plasma 3.5-5.1 [facility] Prolactinon 07-23-2024 Prolactin 24.67 ng/mL High 2.74-19.64 [facility] Comment on above: Result Comment: PERF ORMED BY: [facility] [address] [facility] [address] PATHOLOGIST TOPPIECE CUTTER KARAN TINSLEY M.D. Performed By: #### C MP, CBC #### [facility] [address] [place] [address] Prolactin [Mass/volume] in S lorraine or PlasmaOrdered By: Jon Felder on 07-23-2024 Prolactin [Mass/Vol] Prolactin [Mass/vol ume] in Serum or Plasma High 2.74-19.64 [facility] Prolactin [Mass/Vol] 24.67 ng/mL High 2.74-19.64 [facility] Protein [Mass/volume] in Ser um or PlasmaOrdered By: Jon Felder on 07-23-2024 Protein [Mass/Vol] Protein [Mass/volume ] in Serum or Plasma 6.4-8.9 [facility] Redraw Mary 07-23-2024 AST [Catalytic activity/Vol] 23 U/L Normal 13-39 [facility] Comment on above: Order Comment: HEMOL YZZED Result Comment: PERF ORMED BY: [place] [address] PATHOLOGIST TOPPIECE CUTTER KARAN TINSLEY M.D. Performed By: #### R EDRAW NA, REDRAW MG, REDRAW K, REDRAW TP, REDRAW AST, REDRAW ALB #### [address] Redraw Albumin Levelon 07-23 Albumin [Mass/Vol] 3.8 g/dL Normal 3.5-5.7 [facility] Comment on above: Order Comment: HEMOL YZZED Performed By: #### R EDRAW NA, REDRAW MG, REDRAW K, REDRAW TP, REDRAW AST, REDRAW ALB #### [address] Redraw MagnesiumOrdered By: Jon Felder on 07-23-2024 Magnesium [Mass/Vol] 2.0 mg/dL 1.9-2.7 [facility] Comment on above: Order Comment: HEMOL YZZED Performed By: #### R EDRAW NA, REDRAW MG, REDRAW K, REDRAW TP, REDRAW AST, REDRAW ALB #### [facility] [address] Redraw Potassiumon Potassium [Moles/Vol] 4.0 mmol/L Normal 3.5-5.1 [facility] Comment on above: Order Comment: HEMOL YZZED Result Comment: Hemo lysis is present at a level that could interfere with the result. Contact lab if redraw is required Performed By: #### R EDRAW NA, REDRAW MG, REDRAW K, REDRAW TP, REDRAW AST, REDRAW ALB #### [facility] [address] [place] [address] Redraw Sodiumon 07-23-2024 Sodium [Moles/Vol] 130 mmol/L Low 136-145 [facility] Comment on above: Order Comment: HEMOL YZZED Performed By: #### R EDRAW NA, REDRAW MG, REDRAW K, REDRAW TP, REDRAW AST, REDRAW ALB #### [facility] [address] [place] [address] Redraw Total Proteinon 07-23 Protein [Mass/Vol] 6.2 g/dL Low 6.4-8.9 [facility] Comment on above: Order Comment: HEMOL YZZED Performed By: #### R EDRAW NA, REDRAW MG, REDRAW K, REDRAW TP, REDRAW AST, REDRAW ALB #### [facility] [address] [place] [address] Serum or plasma albumin/glob ulin mass ratioOrdered By: Jon Felder on 07-23-2024 Albumin/Globulin [Mass ratio] Serum or plasma albumin/globulin mass ratio [facility] Serum or plasma anion gap de terminationOrdered By: Jon Felder on 07-23-2024 Anion gap [Moles/Vol] Serum or plasma an ion gap determination High 6.0-15.0 [facility] Sodium [Moles/volume] in Ser um or PlasmaOrdered By: Jon Felder on 07-23-2024 Sodium [Moles/Vol] Sodium [Moles/volume ] in Serum or Plasma Low 136-145 [facility] Urea nitrogen [Mass/volume] in Serum or PlasmaOrdered By: Jon Felder on 07-23-2024 Urea nitrogen [Mass/Vol] Urea nitrogen [Mass/volume] in Serum or Plasma 10-20 [facility] X-ray reportOrdered By: Sedrick Ferrera on 07-23-2024 Study report [facility] Main [place] [id number] XRay Report Signed Patient: Janelle Burt MR#: [id number] : 1940 Acct:[id number] Age/Sex: 83 / F ADM Date: 5 Loc: Room: [address] [place] [address] Type: ADM IN Attending Dr: Jhony Davis MD Copies to: Jhony Davis MD~ Ordering Provider: Jhony Davis MD Date of Service: 07/23/24 XR/XR chest 1V portable: Routine SINGLE VIEW CHEST CLINICAL HISTORY: Recent fall home, seizure, confused COMPARISON: 01/27/2023 FINDINGS: Low lung volumes. Mild interstitial thickening is atelectasis both lung bases. Otherwise unremarkable cardiac silhouette. No large effusion or pneumothorax. XR/XR chest 1V portable IMPRESSION: HYPOVENTILATORY CHANGES WITH MILD BIBASILAR INTERSTITIAL THICKENING LIKELY ATELECTASIS Impression dictated by: Charli Ferrera M.D. 07/23/2024 1:13 PM Dictation Location: [place] [address] Transcribed By: FUENTES 07/23/24 1313 Dictated By: Charli Ferrera MD 07/23/24 1311 Signed By: 07/23/24 1313 [facility] Work Phone: XR chest 1V portableon 07-23 XR chest 1V portable [facility] Main [address] [address] XRay Report Signed Patient: Janelle Burt MR#: [id number] : 1940 Acct:[id number] Age/Sex: 83 / F ADM Date: 07/22/24 Loc: Room: [id number] Type: ADM IN Attending Dr: Jhony Davis MD Copies to: Jhony Davis MD Ordering Provider: Jhony Davis MD Date of Service: 07/23/24 XR/XR chest 1V portable: Routine SINGLE VIEW CHEST CLINICAL HISTORY: Recent fall home, seizure, confused COMPARISON: 01/27/2023 FINDINGS: Low lung volumes. Mild interstitial thickening is atelectasis both lung bases. Otherwise unremarkable cardiac silhouette. No large effusion or pneumothorax. XR/XR chest 1V portable IMPRESSION: HYPOVENTILATORY CHANGES WITH MILD BIBASILAR INTERSTITIAL THICKENING LIKELY ATELECTASIS Impression dictated by: Charli Ferrera M.D. 07/23/2024 1:13 PM Dictation Location: [place] [address] Transcribed By: FUENTES 07/23/24 1313 Dictated By: Charli Ferrera MD 07/23/24 1311 Signed By: 07/23/24 1313 Normal [facility] Appearance of UrineOrdered B y: Asad Mcnally on 07-22-2024 Appearance (U) Urine appearance Clear [facility] Bacteria [Presence] in Urine by AutomatedOrdered By: Asad Mcnally on 07-22-2024 Bacteria Auto Ql (U) Bacteria [Presence] in Urine by Automated High None Seen [facility] Bacteria Auto Ql (U) 1+ [HPF] High None Seen [facility] Basophils Auto (Bld) [#/Vol] Ordered By: Asad Mcnally on 07-22-2024 Basophils (Bld) [#/Vol] Automated basophil count 0.0-0.2 [facility] Basophils/100 WBC Auto (Bld) Ordered By: Asad Mcnally on 07-22-2024 Basophils/100 WBC (Bld) Automated basophil % . [facility] Bilirubin Test strip Ql (U)O rdered By: Asad Mcnally on 07-22-2024 Bilirubin Ql (U) Bilirubin.total [Pre sence] in Urine by Test strip Negative [facility] Bilirubin Ql (U) Negative Negative [facility] Blood carbon dioxide, total measurement by calculation (moles/volume)Ordered By: Asad Mcnally on 07-22-2024 CO2 Calc (Bld) [Moles/Vol] Blood carbon dioxide, total measurement by calculation (moles/volume) [facility] CO2 Calc (Bld) [Moles/Vol] 25 mmol/L [facility] Chloride (Bld) [Moles/Vol]Or dered By: Asad Mcnally on 07-22-2024 Chloride [Moles/Vol] Whole blood chlorid e measurement Low 98-109 [facility] Color Auto (U)Ordered By: Liza Mcnally on 07-22-2024 Color (U) Color of Urine by Auto Yellow [facility] Complete Blood Count Auto Di ffon 07-22-2024 Basophils (Bld) [#/Vol] 0.1 10*3/uL Normal 0.0-0.2 [facility] Comment on above: Result Comment: PERF ORMED BY: [place] [address] PATHOLOGIST TOPPIECE CUTTER KARAN TINSLEY M.D. Performed By: #### C UU #### [address] Basophils/100 WBC (Bld) 0.8 % Normal . Eron scott [facility] Comment on above: Performed By: #### C UU #### [address] Eosinophils (Bld) [#/Vol] 0.1 10*3/uL Normal 0.0-0.45 [facility] Comment on above: Performed By: #### C UU #### [address] Eosinophils/100 WBC (Bld) 0.9 % Normal . [facility] Comment on above: Performed By: #### C UU #### [address] Erythrocyte distribution width (RBC) [Ratio] 13.4 % Normal 11.9-15.3 [facility] Comment on above: Performed By: #### C UU #### [address] Hematocrit (Bld) [Volume fraction] 41.2 % Normal 34.0-46.4 [facility] Comment on above: Performed By: #### C UU #### [address] Hemoglobin (Bld) [Mass/Vol] 14.2 g/dL Normal 11.8-15.4 [facility] Comment on above: Performed By: #### C UU #### [address] Lymphocytes (Bld) [#/Vol] 1.7 10*3/uL Normal 1.00-4.8 [facility] Comment on above: Performed By: #### C UU #### [address] Lymphocytes/100 WBC (Bld) 17.6 % Normal . [facility] Comment on above: Performed By: #### C UU #### [address] MCH (RBC) [Entitic mass] 30.6 pg Normal 24.7-34.3 [facility] Comment on above: Performed By: #### C UU #### [address] MCV (RBC) [Entitic vol] 88.7 fL Normal 80-100 T he [facility] Comment on above: Performed By: #### C UU #### [address] Mean Corpuscular HGB Conc 34.5 g/dL Normal 32.0-35.0 [facility] Comment on above: Performed By: #### C UU #### [address] Monocytes (Bld) [#/Vol] 0.5 10*3/uL Normal 0.0-0.8 [facility] Comment on above: Performed By: #### C UU #### [address] Monocytes/100 WBC (Bld) 18.03 % Normal 0.00-20.00 [facility] Comment on above: Performed By: #### C UU #### [address] Monocytes/100 WBC (Bld) 5.3 % Normal . [facility] Comment on above: Performed By: #### C UU #### [address] Neutrophils (Bld) [#/Vol] 7.4 10*3/uL Normal 1.8-7.7 [facility] Comment on above: Performed By: #### C UU #### [address] Neutrophils/100 WBC (Bld) 75.4 % Normal . [facility] Comment on above: Performed By: #### C UU #### [address] NRBC% 0.1 /100{WBC} Normal 0-0.5 [facility] Comment on above: Performed By: #### C UU #### [address] Platelet mean volume (Bld) [Entitic vol] 7.4 fL Normal 6.3-10.7 [facility] Comment on above: Performed By: #### C UU #### [place] [address] [place] Platelets (Bld) [#/Vol] 228 10*3/uL Normal 150-450 [facility] Comment on above: Performed By: #### C UU #### [place] [address] [place] RBC (Bld) [#/Vol] 4.64 10*6/uL Normal 3.60-5.00 [facility] Comment on above: Performed By: #### C UU #### [address] WBC (Bld) [#/Vol] 9.8 10*3/uL Normal 3.8-11.6 [facility] Comment on above: Performed By: #### C UU #### [address] Comprehensive Metabolic Pane clarita 07-22-2024 Albumin [Mass/Vol] 4.1 g/dL Normal 3.5-5.7 [facility] Comment on above: Performed By: #### C UU #### [address] Albumin/Globulin [Mass ratio] 1.4 {ratio} Normal [facility] Comment on above: Performed By: #### C UU #### [address] ALP [Catalytic activity/Vol] 53 U/L Normal 34-104 [facility] Comment on above: Performed By: #### C UU #### [address] ALT [Catalytic activity/Vol] 12 U/L Normal 7-52 [facility] Comment on above: Performed By: #### C UU #### [address] Anion gap [Moles/Vol] 12.7 mmol/L Normal 6.0-15.[address] [facility] Comment on above: Performed By: #### C UU #### [address] AST [Catalytic activity/Vol] 20 U/L Normal 13-39 [facility] Comment on above: Performed By: #### C UU #### [address] Bilirubin [Mass/Vol] 0.9 mg/dL Normal 0.3-1.0 [facility] Comment on above: Performed By: #### C UU #### [address] Calcium [Mass/Vol] 9.5 mg/dL Normal 8.6-10.3 [facility] Comment on above: Performed By: #### C UU #### [address] Chloride [Moles/Vol] 97 mmol/L Low 98-107 [facility] Comment on above: Performed By: #### C UU #### [address] CO2 [Moles/Vol] 24.9 mmol/L Normal 21.0-31.0 [facility] Comment on above: Performed By: #### C UU #### [address] Creatinine [Mass/Vol] 0.99 mg/dL Normal 0.60-1.20 [facility] Comment on above: Performed By: #### C UU #### [address] Creatinine Clr Calc Pharmacy 38.06 Normal [facility] Comment on above: Result Comment: PERF ORMED BY: [place] [address] PATHOLOGIST TOPPIECE CUTTER KARAN TINSLEY M.D. Performed By: #### C UU #### [address] Estimated GFR 56.226 mL/Min Normal [facility] Comment on above: Performed By: #### C UU #### [address] Globulin (S) [Mass/Vol] 2.9 g/dL Normal T he [facility] Comment on above: Performed By: #### C UU #### [address] Glucose [Mass/Vol] 116 mg/dL High 70-100 [facility] Comment on above: Result Comment: [place] Glucose Reference Range is dependent on time and content of last meal. Glucose of more than 200 mg/dL in a nonstressed, ambulatory subject supports the diagnosis of Diabetes Mellitus. ADA recommended reference range Performed By: #### C UU #### [address] Potassium [Moles/Vol] 3.6 mmol/L Normal 3.5-5.1 [facility] Comment on above: Performed By: #### C UU #### [address] Protein [Mass/Vol] 7.0 g/dL Normal 6.4-8.9 [facility] Comment on above: Performed By: #### C UU #### [address] Sodium [Moles/Vol] 131 mmol/L Low 136-145 [facility] Comment on above: Performed By: #### C UU #### [address] Urea nitrogen [Mass/Vol] 18 mg/dL Normal 7-25 [facility] Comment on above: Performed By: #### C UU #### [address] Creatine KinaseOrdered By: Eron Mcnally on 07-22-2024 CK [Catalytic activity/Vol] 88 U/L [facility] Comment on above: Performed By: #### C UU #### [address] Creatine kinase [Enzymatic a ctivity/volume] in Serum or PlasmaOrdered By: Asad Mcnally on 07-22-2024 CK [Catalytic activity/Vol] Creatine kinase [Enzymatic activity/volume] in Serum or Plasma [facility] Creatinine (Bld) [Mass/Vol]O rdered By: Asad Mcnally on 07-22-2024 Creatinine [Mass/Vol] Whole blood creati nine measurement 0.6-1.3 [facility] Comment on above: ER/ESD physician is notified/shown all ISTAT results.Critical values may be confirmed by laboratory testing ifdeemed necessary by ER attending doctor. Dipstick and MicroscopicOrde red By: Asad Mcnally on 07-22-2024 Appearance (U) Clear Clear [facility] Comment on above: Order Comment: Name Collection Type:: Clean-Voided Midstream Performed By: #### C UU #### [place] [address] [place] Color (U) Light-Yellow Yellow [facility] Comment on above: Order Comment: Name Collection Type:: Clean-Voided Midstream Performed By: #### C UU #### [address] Ketones Ql (U) Negative Negative [facility] Comment on above: Order Comment: Name Collection Type:: Clean-Voided Midstream Performed By: #### C UU #### [address] Leukocyte esterase Test strip Ql (U) 2+ High Negative [facility] Comment on above: Order Comment: Name Collection Type:: Clean-Voided Midstream Performed By: #### C UU #### [place] [address] [place] pH (U) 8.0 [pH] 5.0-9.0 [facility] Comment on above: Order Comment: Name Collection Type:: Clean-Voided Midstream Performed By: #### C UU #### [place] [address] [place] Dipstick and Microscopicon 0 07-22-2024 Bacteria,Urine 1+ High None Seen [facility] Comment on above: Order Comment: Name Collection Type:: Clean-Voided Midstream Performed By: #### C UU #### [place] [address] [place] Bilirubin,Urine Negative Normal Negative [facility] Comment on above: Order Comment: Name Collection Type:: Clean-Voided Midstream Performed By: #### C UU #### [place] [address] [place] Glucose Ql (U) Normal Normal Normal [facility] Comment on above: Order Comment: Name Collection Type:: Clean-Voided Midstream Performed By: #### C UU #### [place] [address] [place] Hyaline Casts,Urine None Normal 0-8 [facility] Comment on above: Order Comment: Name Collection Type:: Clean-Voided Midstream Result Comment: PERF ORMED BY: [place] [address] PATHOLOGIST TOPPIECE CUTTER KARAN TINSLEY M.D. Performed By: #### C UU #### [address] Nitrite,Urine Negative Normal Negative [facility] Comment on above: Order Comment: Name Collection Type:: Clean-Voided Midstream Performed By: #### C UU #### [address] Occult Blood,Urine Negative Normal Negative [facility] Comment on above: Order Comment: Name Collection Type:: Clean-Voided Midstream Result Comment: PERF ORMED BY: [place] [address] PATHOLOGIST TOPPIECE CUTTER KARAN TINSLEY M.D. Performed By: #### C UU #### [address] Protein,Urine Negative Normal Negative [facility] Comment on above: Order Comment: Name Collection Type:: Clean-Voided Midstream Performed By: #### C UU #### [address] RBC,Urine 3-4 Normal 0-4 [facility] Comment on above: Order Comment: Name Collection Type:: Clean-Voided Midstream Performed By: #### C UU #### [address] Specificy [place],Urine 1.025 Normal 1.00 1-1.03 0 [facility] Comment on above: Order Comment: Name Collection Type:: Clean-Voided Midstream Performed By: #### C UU #### [address] Urobilinogen,Urine Normal Normal Normal [facility] Comment on above: Order Comment: Name Collection Type:: Clean-Voided Midstream Performed By: #### C UU #### [address] [place] [address] [place] WBC,Urine 20-49 High 0-4 [facility] Comment on above: Order Comment: Name Collection Type:: Clean-Voided Midstream Performed By: #### C UU #### [facility] [address] [id number] [place] ECG 12 lead ECGon 07-22-2024 ECG 12 lead ECG [facility] [place] [address] [place] [address] Electrocardiograph Report Signed Patient: Janelle Burt MR#: [id number] : 1940 Acct:[id number] Age/Sex: 83 / F ADM Date: 07/22/24 Loc: Room: [address] [place] [address] Type: ADM IN Attending Dr: Jhony Davis MD Ordering Provider: Asad Mcnally Jr, MD Date of Service: 07/22/24 ECG/ECG 12 lead ECG: weakness Copies to: Test Reason : Blood Pressure : 216/92 mmHG Vent. Rate : 69 BPM Atrial Rate : 69 BPM P-R Int : 172 ms QRS Dur : 92 ms QT Int : 418 ms P-R-T Axes : 50 -60 48 degrees QTcB Int : 447 ms Normal sinus rhythm Left axis deviation Incomplete right bundle branch block Nonspecific ST and T wave abnormality Abnormal ECG When compared with ECG of 27-Jan-2023 08:53, [place] interval has decreased Incomplete right bundle branch block is now present Confirmed by ASAD MCNALLY MD ([id number]) on 07/24/2024 6:00:21 AM Referred By: Electronically Signed By: ASAD MCNALLY MD Transcribed By: MUS Signed By Asad Mcnally Jr, MD 0600 Normal [facility] Eosinophils Auto (Bld) [#/Vo l]Ordered By: Asad Mcnally on 07-22-2024 Eosinophils (Bld) [#/Vol] Automated eosinophil count 0.0-0.45 [facility] Eosinophils/100 WBC Auto (Bl d)Ordered By: Asad Mcnally on 07-22-2024 Eosinophils/100 WBC (Bld) Automated eosinophil % . [facility] Epithelial cells.squamous [# /area] in Urine sediment by Automated countOrdered By: Asad Mcnally on 07-22-2024 Epithelial cells.squamous Auto (Urine sed) [#/Area] Epithelial cells.squamous [#/area] in Urine sediment by Automated count [facility] Epithelial cells.squamous Auto (Urine sed) [#/Area] N/A [facility] Erythrocyte distribution wid th Auto (RBC) [Ratio]Ordered By: Asad Mcnally on 07-22-2024 Erythrocyte distribution width (RBC) [Ratio] Erythrocyte distribution width [Ratio] by Automated count 11.9-15.3 [facility] Erythrocytes [#/area] in Uri ne sediment by Automated countOrdered By: Asad Mcnally on 07-22-2024 RBC Auto (Urine sed) [#/Area] Erythrocytes [#/area] in Urine sediment by Automated count 0-4 [facility] RBC Auto (Urine sed) [#/Area] 3-4 [HPF] 0-4 [facility] Glucose Glucometer (BldC) [M ass/Vol]Ordered By: Asad Mcnally on 07-22-2024 Glucose [Mass/Vol] Capillary blood gluc ose measurement by glucometer (mass/volume) High 70-105 [facility] Glucose [Mass/Vol] Capillary blood gluc ose measurement by glucometer (mass/volume) [facility] Comment on above: Random Glucose Refer ence Range is dependent on time and content of last meal. Glucose of more than 200 mg/dL in a nonstressed, ambulatory subject supports the diagnosis of Diabetes Mellitus. Glucose Poct GlucometersOrde red By: Asad Mcnally on 07-22-2024 Glucose [Mass/Vol] 113 mg/dL [facility] Comment on above: Result Comment: [place] Glucose Reference Range is dependent on time and content of last meal. Glucose of more than 200 mg/dL in a nonstressed, ambulatory subject supports the diagnosis of Diabetes Mellitus. PERFORMED BY: [place] [address] PATHOLOGIST TOPPIECE CUTTER KARAN TINSLEY M.D. Performed By: #### C MP, CBC #### [facility] [address] Random Glucose Refer ence Range is dependent on time and content of last meal. Glucose of more than 200 mg/dL in a nonstressed, ambulatory subject supports the diagnosis of Diabetes Mellitus. Glucose [Mass/volume] in Uri ne by Test stripOrdered By: Asad Mcnally on 07-22-2024 Glucose Test strip (U) [Mass/Vol] Glucose [Mass/volume] in Urine by Test strip Normal [facility] Glucose Test strip (U) [Mass/Vol] Normal mg/dL Normal [facility] Hematocrit Auto (Bld) [Volum e fraction]Ordered By: Asad Mcnally on 07-22-2024 Hematocrit (Bld) [Volume fraction] Hematocrit [Volume Fraction] of Blood by Automated count 34.0-46.4 [facility] Hemoglobin Calc (Bld) [Mass/ Vol]Ordered By: Asad Mcnally on 07-22-2024 Hemoglobin (Bld) [Mass/Vol] Blood hemoglobin measurement by calculation (mass/volume) 12.0-17.0 [facility] Hemoglobin Test strip Ql (U) Ordered By: Asad Mcnally on 07-22-2024 Hemoglobin Ql (U) Hemoglobin [Presence ] in Urine by Test strip Negative [facility] Hemoglobin Ql (U) Negative Negative [facility] Hemoglobin [Mass/volume] in BloodOrdered By: Asad Mcnally on 07-22-2024 Hemoglobin (Bld) [Mass/Vol] Hemoglobin [Mass/volume] in Blood 11.8-15.4 [facility] Hyaline casts [#/area] in Ur ine sediment by Automated countOrdered By: Asad Mcnally on 07-22-2024 Hyaline casts Auto (Urine sed) [#/Area] Hyaline casts [#/area] in Urine sediment by Automated count 0-8 [facility] Hyaline casts Auto (Urine sed) [#/Area] None [LPF] 0-8 [facility] INR in Platelet poor plasma by Coagulation assayOrdered By: Asad Mcnally on 07-22-2024 INR Coag (PPP) [Relative time] INR in Platelet poor plasma by Coagulation assay [facility] Comment on above: INR Therapeutic Rang [...] with mechanical heart valves: 3 - 4.5 ISTAT ER Chem8+ PanelOrdered By: Asad Mcnally on 07-22-2024 Chloride [Moles/Vol] 97.0 mmol/L Low 98-109 [facility] Comment on above: Performed By: #### E RBMP #### [address] Creatinine [Mass/Vol] 1.2 mg/dL 0.6-1.3 [facility] Comment on above: Result Comment: ER/E [place] physician is notified/shown all ISTAT results. Critical values may be confirmed by laboratory testing if deemed necessary by ER attending doctor. Performed By: #### E RBMP #### [address] ER/ESD physician is notified/shown all ISTAT results.Critical values may be confirmed by laboratory testing ifdeemed necessary by ER attending doctor. Glucose [Mass/Vol] 117 mg/dL High 70-105 [facility] Comment on above: Result Comment: PERF ORMED BY: [place] [address] PATHOLOGIST TOPPIECE CUTTER KARAN TINSLEY M.D. Performed By: #### E RBMP #### [address] Hematocrit (Bld) [Volume fraction] 43.0 % 38.0-51.0 [facility] Comment on above: Performed By: #### E RBMP #### [address] Hemoglobin (Bld) [Mass/Vol] 14.6 g/dL 12.0-17.0 [facility] Comment on above: Performed By: #### E RBMP #### [address] Potassium [Moles/Vol] 3.7 mmol/L 3.5-4.9 [facility] Comment on above: Performed By: #### E RBMP #### [facility] [address] Sodium [Moles/Vol] 132 mmol/L Low 138-146 [facility] Comment on above: Performed By: #### E RBMP #### [facility] [address] Urea nitrogen [Mass/Vol] 18 mg/dL 11-21 [facility] Comment on above: Performed By: #### E RBMP #### [facility] [address] [place] [address] [place] ISTAT ER Chem8+ Panelon 06-28 CO2 [Moles/Vol] 25 mmol/L Normal 23-29 [facility] Comment on above: Performed By: #### E RBMP #### [facility] [address] [place] [address] ISTAT Ionized Calcium 1.18 mol/L Normal 1.12-1.32 [facility] Comment on above: Performed By: #### E RBMP #### [facility] [address] [place] [address] Ketones Test strip Ql (U)Ord ered By: Asad Mcnally on 07-22-2024 Ketones Ql (U) Ketones [Presence] i n Urine by Test strip Negative [facility] Leukocyte esterase [Presence ] in Urine by Test stripOrdered By: Asad Mcnally on 07-22-2024 Leukocyte esterase Test strip Ql (U) Leukocyte esterase [Presence] in Urine by Test strip High Negative [facility] Leukocytes [#/area] in Urine sediment by Automated countOrdered By: Asad Mcnally on 07-22-2024 WBC Auto (Urine sed) [#/Area] Leukocytes [#/area] in Urine sediment by Automated count High 0-4 [facility] WBC Auto (Urine sed) [#/Area] 20-49 [HPF] High 0-4 [facility] Leukocytes [#/volume] correc chacho for nucleated erythrocytes in Blood by Automated counOrdered By: Asad Mcnally on 07-22-2024 WBC corrected for nucl RBC Auto (Bld) [#/Vol] Leukocytes [#/volume] corrected for nucleated erythrocytes in Blood by Automated coun 3.8-11.6 [facility] Lymphocytes Auto (Bld) [#/Vo l]Ordered By: Asad Mcnally on 07-22-2024 Lymphocytes (Bld) [#/Vol] Lymphocytes [#/volume] in Blood by Automated count 1.00-4.8 [facility] Lymphocytes/100 WBC Auto (Bl d)Ordered By: Asad Mcnally on 07-22-2024 Lymphocytes/100 WBC (Bld) Lymphocytes/100 leukocytes in Blood by Automated count . [facility] MCH Auto (RBC) [Entitic mass ]Ordered By: Asad Mcnally on 07-22-2024 MCH (RBC) [Entitic mass] MCH [Entitic mass] by Automated count 24.7-34.3 [facility] MCHC Auto (RBC) [Mass/Vol]Or dered By: Asad Mcnally on 07-22-2024 MCHC (RBC) [Mass/Vol] MCHC [Mass/volume] by Automated count 32.0-35.0 [facility] MCV Auto (RBC) [Entitic vol] Ordered By: sAad Mcnally on 07-22-2024 MCV (RBC) [Entitic vol] MCV [Entitic vol ume] by Automated count 80-100 [facility] Monocyte distribution width [Entitic volume] in Blood by AutomatedOrdered By: Asad Mcnally on 07-22-2024 Monocyte distribution width Auto (Bld) [Entitic vol] Monocyte distribution width [Entitic volume] in Blood by Automated 0.00-20.00 [facility] Monocytes Auto (Bld) [#/Vol] Ordered By: Asad Mcnally on 07-22-2024 Monocytes (Bld) [#/Vol] Automated blood monocyte count 0.0-0.8 [facility] Monocytes/100 WBC Auto (Bld) Ordered By: Asad Mcnally on 07-22-2024 Monocytes/100 WBC (Bld) Automated monocyte % . [facility] Neutrophils Auto (Bld) [#/Vo l]Ordered By: Asad Mcnally on 07-22-2024 Neutrophils (Bld) [#/Vol] Neutrophils [#/volume] in Blood by Automated count 1.8-7.7 [facility] Neutrophils/100 WBC Auto (Bl d)Ordered By: Asad Mcnally on 04-26-2025 Neutrophils/100 WBC (Bld) Automated neutrophil % . [facility] Nitrite Test strip Ql (U)Ord ered By: Asad Mcnally on 07-22-2024 Nitrite Ql (U) Nitrite [Presence] i n Urine by Test strip Negative [facility] Nitrite Ql (U) Negative Negative [facility] Nucleated erythrocytes [Pres ence] in Blood by Automated countOrdered By: Asad Mcnally on 07-22-2024 Nucleated RBC Auto Ql (Bld) Nucleated erythrocytes [Presence] in Blood by Automated count 0-0.5 [facility] Partial Thromboplastin Timeo n 07-22-2024 aPTT Coag (Bld) [Time] 33.6 s Normal 25.1-36.5 [facility] Comment on above: Result Comment: A he matocrit value greater than 55% may lead to inaccurate results in coagulation testing. Patients having hematocrit values >55% require a special collection tube for coagulation studies. Please contact the laboratory at [phone] for redraw instructions. PERFORMED BY: [place] [address] PATHOLOGIST TOPPIECE CUTTER KARAN TINSLEY M.D. Performed By: #### C UU #### [address] Platelet mean volume Auto (B ld) [Entitic vol]Ordered By: Asad Mcnally on 07-22-2024 Platelet mean volume (Bld) [Entitic vol] Platelet mean volume [Entitic volume] in Blood by Automated count 6.3-10.7 [facility] Platelets Auto (Bld) [#/Vol] Ordered By: Asad Mcnally on 07-22-2024 Platelets (Bld) [#/Vol] Platelets [#/vol ume] in Blood by Automated count 150-450 [facility] Potassium (Bld) [Moles/Vol]O rdered By: Asad Mcnally on 07-22-2024 Potassium [Moles/Vol] Whole blood potass ium measurement 3.5-4.9 [facility] Protein Test strip (U) [Mass /Vol]Ordered By: Asad Mcnally on 07-22-2024 Protein (U) [Mass/Vol] Protein [Mass/vol ume] in Urine by Test strip Negative [facility] Protein (U) [Mass/Vol] Negative Negative [facility] Prothrombin Time INROrdered By: Asad Mcnally on 07-22-2024 INR Coag (PPP) [Relative time] 1.3 {INR} [facility] Comment on above: Result Comment: INR [...] valves: 3 - 4.5 Performed By: #### C UU #### [facility] [address] [place] [address] INR Therapeutic Rang e A) Pre- and Peroperative OAT started two weeks before surgery. NOT HIP SURGERY: 1.5 - 2.5 HIP SURGERY: 2 - 3B) Primary and secondary prevention of venous THROMBOSIS: 2 - 3C) Active venous thrombosis, pulmonary embolismand prevention of recurrent venous thrombosis: 2 - 3D) Prevention of arterial thromboembolismincluding patients with mechanical heart valves: 3 - 4.5 PT Coag (PPP) [Time] 14.9 s High 9.0-12.9 [facility] Comment on above: Result Comment: A he matocrit value greater than 55% may lead to inaccurate results in coagulation testing. Patients having hematocrit values >55% require a special collection tube for coagulation studies. Please contact the laboratory at [phone] for redraw instructions. Performed By: #### C UU #### [facility] [address] [place] [address] A hematocrit value g reater than 55% may lead to inaccurate results in coagulation testing. Patients having hematocrit values >55% require a special collection tube for coagulation studies. Please contact the laboratory at [phone] for redraw instructions. Prothrombin time (PT)Ordered By: Asad Mcnally on 07-22-2024 PT Coag (PPP) [Time] Prothrombin time (PT) High 9.0- 12.9 [facility] Comment on above: A hematocrit value g reater than 55% may lead to inaccurate results in coagulation testing. Patients having hematocrit values >55% require a special collection tube for coagulation studies. Please contact the laboratory at [phone] for redraw instructions. RBC Auto (Bld) [#/Vol]Ordere d By: Asad Mcnally on 07-22-2024 RBC (Bld) [#/Vol] Erythrocytes [#/volu me] in Blood by Automated count 3.60-5.00 [facility] Sodium (Bld) [Moles/Vol]Orde red By: sAad Mcnally on 07-22-2024 Sodium [Moles/Vol] Whole blood sodium measurement Low 138-146 [facility] Specific gravity Test strip (U) [Rel density]Ordered By: Asad Mcnally on 07-22-2024 Specific gravity (U) [Rel density] Specific gravity of Urine by Test strip 1.001-1.03 0 [facility] Specific gravity (U) [Rel density] 1.025 1.001-1.03 0 [facility] Troponin I High Sensitivityo n 07-22-2024 Troponin I High Sensitivity 9 Normal 0-15 [facility] Comment on above: Result Comment: The Troponin units of report have been changed to meet the Chest Pain Accreditation requirement, element EC5.M1l2. Troponin units are changed from pg/ml to ng/L. Also, the decimal is removed and results are in whole numbers. PERFORMED BY: [place] [address] PATHOLOGIST TOPPIECE CUTTER KARAN TINSLEY M.D. Performed By: #### C UU #### [address] Troponin I.cardiac [Mass/vol ume] in Serum or Plasma by Detection limit <= 0.01 ng/Ordered By: Asad Mcnally on 07-22-2024 Troponin I.cardiac DL <= 0.01 ng/mL [Mass/Vol] Troponin I.cardiac [Mass/volume] in Serum or Plasma by Detection limit <= 0.01 ng/ 0-15 [facility] Comment on above: The Troponin units o f report have been changed to meet the Chest Pain Accreditation requirement, element EC5.M1l2. Troponin units are changed from pg/ml to ng/L. Also, the decimal is removed and results are in whole numbers. Troponin I.cardiac [Mass/vol ume] in Serum or Plasma by Detection limit <= 0.01 ng/mLOrdered By: Asad Mcnally on 07-22-2024 Troponin I.cardiac DL <= 0.01 ng/mL [Mass/Vol] 9 ng/L 0-15 [facility] Comment on above: The Troponin units o f report have been changed to meet the Chest Pain Accreditation requirement, element EC5.M1l2. Troponin units are changed from pg/ml to ng/L. Also, the decimal is removed and results are in whole numbers. Urea nitrogen (Bld) [Mass/Vo l]Ordered By: Asad Mcnally on 07-22-2024 Urea nitrogen [Mass/Vol] Blood urea nitrogen (BUN) measurement in whole blood (mass/volume) 11-21 [facility] Urine Cultureon 07-22-2024 Bacteria identified Cx Nom (U) ORGANISM: Pseudomonas aeruginosa (O:PSEAER) Hymera Count <10,000 Aerobic TONY Charge ([id number]) SUSCEPTIBILITY ORGANISM: O:PSEAER ANTIBIOTIC INTERPRETATION TONY Amikacin S <16 Aztreonam IB <4 Cefepime S <2 Ceftazidime IB <1 Ceftazidime/Avibactam S <4 Ceftolozane/Tazobactam S <2 Ciprofloxacin S 0.5 Gentamicin S <2 Levofloxacin S <0.5 Meropenem [...] RESISTANT TO ALL B-LACTAM DRUGS. PERFORMED BY: [address] [place] [address] PATHOLOGIST TOPPIECE CUTTER KARAN TINSLEY M.D. Normal [facility] Comment on above: Performed By: #### C UU #### [facility] [address] [id number] [facility] Urine cultureOrdered By: Biju Mcnally on 07-22-2024 Bacteria identified Cx Nom (U) Abnormal [facility] Bacteria identified Cx Nom (U) Pseudomonas aeruginosa Abnormal [facility] Urobilinogen Test strip (U) [Mass/Vol]Ordered By: Asad Mcnally on 07-22-2024 Urobilinogen (U) [Mass/Vol] Urobilinogen [Mass/volume] in Urine by Test strip Normal [facility] Urobilinogen (U) [Mass/Vol] Normal mg/dL Normal [facility] WBC Auto (Bld) [#/Vol]Ordere d By: Asad Mcnally on 07-22-2024 WBC (Bld) [#/Vol] Leukocytes [#/volume ] in Blood by Automated count 3.8-11.6 [facility] Whole blood ionized calcium measurement (moles/volume)Ordered By: Asad Mcnally on 07-22-2024 Calcium.ionized (Bld) [Moles/Vol] Whole blood ionized calcium measurement (moles/volume) 1.12-1.32 [facility] Calcium.ionized (Bld) [Moles/Vol] 1180 mmol/L 1.12-1.32 [facility] aPTT in Platelet poor plasma by Coagulation assayOrdered By: Asad Mcnally on 07-22-2024 aPTT Coag (PPP) [Time] Activated partial thromboplastin time (aPTT) in platelet poor plasma by coagulation a 25.1-36.5 [facility] Comment on above: A hematocrit value g reater than 55% may lead to inaccurate results in coagulation testing. Patients having hematocrit values >55% require a special collection tube for coagulation studies. Please contact the laboratory at [phone] for redraw instructions. aPTT Coag (PPP) [Time] 33.6 s 25.1-36.5 [facility] Comment on above: A hematocrit value g reater than 55% may lead to inaccurate results in coagulation testing. Patients having hematocrit values >55% require a special collection tube for coagulation studies. Please contact the laboratory at [phone] for redraw instructions. pH Test strip (U)Ordered By: Asad Mcnally on 07-22-2024 pH (U) pH of Urine by Test strip 5.0-9.0 [facility] ALL LIPID PROFILE (FASTING)o n 06-29-2024 CHOL HDL RATIO 2.2 [facility] Comment on above: 3.3 - 4.4 LOW RISK 4.4 - 7.1 AVERAGE RISK 7.1 - 11.0 MODERATE RISK >11.0 HIGH RISK Cholesterol [Mass/Vol] 126 mg/dL NINF - 200 mg/dL [facility] Cholesterol in HDL [Mass/Vol] 56 mg/dL 40 - 60 mg/dL [facility] Comment on above: > or =60 mg/dl - LOW CARDIOVASCULAR RISK <40 mg/dl - HIGH CARDIOVASCULAR RISK Magnesium [Mass/Vol] 54.6 mg/dL [facility] Comment on above: <100 mg/dl OPTIMAL 100-129 mg/dl NEAR OR ABOVE OPTIMAL 130-159 mg/dl BORDERLINE HIGH 160-189 mg/dl HIGH >190 mg/dl VERY HIGH Magnesium [Mass/Vol] 15.4 mg/dL [facility] Triglyceride [Mass/Vol] 77 mg/dL NINF - 150 mg/dL [facility] Cholesterol in LDL Calc [Mas s/Vol]on 06-29-2024 Cholesterol in LDL [Mass/Vol] Cholesterol in LDL [Mass/volume] in Serum or Plasma by calculation [facility] Comment on above: <100 mg/dl [id number] 0-129 mg/dl NEAR OR ABOVE [id number] mg/dl BORDERLINE [id number] mg/dl HIGH>190 mg/dl VERY HIGH Cholesterol in LDL [Mass/Vol] 54.6 mg/dL [facility] Comment on above: <100 mg/dl [id number] 0-129 mg/dl NEAR OR ABOVE [id number] mg/dl BORDERLINE [id number] mg/dl HIGH>190 mg/dl VERY HIGH Cholesterol in VLDL Calc [Ma ss/Vol]on 06-29-2024 Cholesterol in VLDL [Mass/Vol] Cholesterol in VLDL [Mass/volume] in Serum or Plasma by calculation [facility] Cholesterol in VLDL [Mass/Vol] 15.4 mg/dL [facility] Globulin Calc (S) [Mass/Vol] on 06-29-2024 Globulin (S) [Mass/Vol] Serum globulin m easurement by calculation (mass/volume) [facility] Globulin (S) [Mass/Vol] 3.2 g/dL [facility] HMHP LIVER PANELon Albumin [Mass/Vol] 3.3 g/dL Low 3.4 - 5.0 g/dL [facility] ALBUMIN GLOBULIN RATIO 1 NO [facility] ALP [Catalytic activity/Vol] 66 U/L 46 - 116 U/L [facility] ALT [Catalytic activity/Vol] 15 U/L 14 - 59 U/L [facility] AST [Catalytic activity/Vol] 19 U/L 15 - 37 U/L [facility] Bilirubin [Mass/Vol] 0.5 mg/dL 0.2 - 1 .0 mg/dL [facility] Bilirubin.indirect [Mass/Vol] 0.2 mg/dL 0.0 - 0.2 mg/dL [facility] Globulin (S) [Mass/Vol] 3.2 g/dL N [facility] Interpretation and review of laboratory results Abnormal [facility] Protein [Mass/Vol] 6.5 g/dL 6.4 - 8.2 g/dL [facility] Laboratory - Chemistry and C hemistry - challengeon 06-29-2024 Albumin [Mass/Vol] 3.3 g/dL Low 3.4-5.0 [facility] ALP [Catalytic activity/Vol] 66 U/L 46-116 [facility] ALT [Catalytic activity/Vol] 15 U/L 14-59 [facility] AST [Catalytic activity/Vol] 19 U/L 15-37 [facility] Bilirubin [Mass/Vol] 0.5 mg/dL 0.2-1.0 [facility] Bilirubin.direct [Mass/Vol] 0.2 mg/dL 0.0-0.2 [facility] Cholesterol [Mass/Vol] 126 mg/dL <=200 [facility] Cholesterol in HDL [Mass/Vol] 56 mg/dL 40-60 [facility] Comment on above: > or =60 mg/dl - LOW CARDIOVASCULAR RISK<40 mg/dl - HIGH CARDIOVASCULAR RISK Protein [Mass/Vol] 6.5 g/dL 6.4-8.2 [facility] Triglyceride [Mass/Vol] 77 mg/dL <=150 [facility] No Panel Informationon 06-[facility] Serum or plasma albumin/glob ulin mass ratioon 06-29-2024 Albumin/Globulin [Mass ratio] Serum or plasma albumin/globulin mass ratio [facility] Albumin/Globulin [Mass ratio] 1.0 {ratio} [facility] Serum or plasma total choles terol/high density lipoprotein (HDL) cholesterol mass andrew 06-29-2024 Cholesterol.total/Shira sterol in HDL [Mass ratio] Serum or plasma total cholesterol/high density lipoprotein (HDL) cholesterol mass rat [facility] Comment on above: 3.3 - 4.4 LOW RISK4. 4 - 7.1 AVERAGE RISK7.1 - 11.0 MODERATE RISK>11.0 HIGH RISK Cholesterol.total/Shira sterol in HDL [Mass ratio] 2.2 {ratio} [facility] Comment on above: 3.3 - 4.4 LOW RISK4. 4 - 7.1 AVERAGE RISK7.1 - 11.0 MODERATE RISK>11.0 HIGH RISK Erythrocyte distribution wid th Auto (RBC) [Ratio]on 03-21-2024 Erythrocyte distribution width (RBC) [Ratio] Erythrocyte distribution width [Ratio] by Automated count 11.0-15.0 [facility] Estimated glomerular filtrat ion rate (GFR) non- Americanon 03-21-2024 GFR/1.73 sq M.predicted among non-blacks MDRD (S/P/Bld) [Vol rate/Area] Estimated glomerular filtration rate (GFR) non- Low >=60 mL/min/1.7 3m 2 [facility] Hematocrit Auto (Bld) [Volum e fraction]on 03-21-2024 Hematocrit (Bld) [Volume fraction] Hematocrit [Volume Fraction] of Blood by Automated count 36.0-48.0 [facility] Hemoglobin [Mass/volume] in Bloodon 03-21-2024 Hemoglobin (Bld) [Mass/Vol] Hemoglobin [Mass/volume] in Blood 12.0-16.0 [facility] Laboratory - Chemistry and C hemistry - challengeon 03-21-2024 Bilirubin Ql (U) Negative NEGATIVE [facility] Glucose (U) [Mass/Vol] Negative NEGATIVE [facility] Ketones Ql (U) Negative NEGATIVE [facility] pH (U) 6.0 [pH] 5.0-9.0 [facility] Specific gravity (U) [Rel density] 1.010 1.005-1.02 5 [facility] Urobilinogen Qn (U) 0.2 {Carlos'U}/dL 0.2-1.0 [facility] Albumin [Mass/Vol] 3.7 g/dL 3.4-5.0 [facility] Calcium [Mass/Vol] 9.6 mg/dL 8.5-10.1 [facility] Chloride [Moles/Vol] 98 mmol/L 98-107 [facility] CO2 [Moles/Vol] 31.5 mmol/L 21.0-32.0 [facility] Creatinine [Mass/Vol] 1.22 mg/dL High 0.55-1.02 [facility] Free T4 [Mass/Vol] 1.46 ng/dL 0.76-1.46 [facility] GFR/1.73 sq M.predicted MDRD (S/P/Bld) [Vol rate/Area] 51 mL/min/{1.73_m2} Low >=60 mL/min/1.7 3m 2 [facility] Glucose [Mass/Vol] 92 mg/dL 74-106 [facility] Magnesium [Mass/Vol] 1.9 mg/dL 1.8-2.4 [facility] Potassium [Moles/Vol] 4.0 mmol/L 3.5-5.1 [facility] Sodium [Moles/Vol] 136 mmol/L 136-145 [facility] TSH Qn 2.019 m[IU]/L 0.358-3.74 0 [facility] Urate [Mass/Vol] 4.4 mg/dL 2.6-6.0 [facility] Urea nitrogen [Mass/Vol] 30.0 mg/dL High 7.0-18.0 [facility] Urea nitrogen/Creatinine [Mass ratio] 24.6 mg/mg [facility] Laboratory - Specimen inform ationon 03-21-2024 Appearance (U) CLEAR CLEAR [facility] Color (U) LT. YELLOW YELLOW [facility] Laboratory - Urinalysison Leukocyte esterase Test strip Ql (U) TRACE Abnormal NEGATIVE [facility] Mucus Ql (Urine sed) TRACE Abnormal NONE SEEN [facility] Nitrite Ql (U) Negative NEGATIVE [facility] Protein (U) [Mass/Vol] 7.5 mg/dL <=11.9 [facility] Protein Ql (U) Negative NEG/TRACE [facility] Leukocytes [#/volume] correc chacho for nucleated erythrocytes in Blood by Automated counon 03-21-2024 WBC corrected for nucl RBC Auto (Bld) [#/Vol] Leukocytes [#/volume] corrected for nucleated erythrocytes in Blood by Automated coun 4.0-11.0 [facility] MCH Auto (RBC) [Entitic mass ]on 03-21-2024 MCH (RBC) [Entitic mass] MCH [Entitic mass] by Automated count 26.7-34.0 [facility] MCHC Auto (RBC) [Mass/Vol]on 03-21-2024 MCHC (RBC) [Mass/Vol] MCHC [Mass/volume] by Automated count 29.9-35.2 [facility] MCV Auto (RBC) [Entitic vol] on 03-21-2024 MCV (RBC) [Entitic vol] MCV [Entitic vol ume] by Automated count 81.0-99.0 [facility] No Panel Informationon 03-21 Urine Bacteria TRACE #/HPF Abnormal NONE SEEN [facility] Urine Culture Reflexed NO [facility] Urine Occult Blood Negative NEGATIVE [facility] Urine Other Casts NONE SEEN #/LPF NONE SEEN [facility] Urine Other Crystals None Seen #/HPF None Seen [facility] Urine Random Creatinine 84.33 mg/dL 20.0 0-300. 00 [facility] Urine RBC 0-2 #/HPF 0-2 [facility] Urine Squamous Epithelial Cells FEW #/LPF Abnormal NONE/RARE [facility] Urine WBC 0-2 #/HPF Abnormal NONE SEEN [facility] 25-Hydroxy Vitamin D Total 65.9 ng/mL [facility] Comment on above: <20 ng/mL Vit D defi cient20-<30 ng/mL Vit D yefbspznguix48-283 ng/mL Vit D sufficient>100 ng/mL Potential Toxicity Parathyroid Hormone (Intact) 16 pg/mL 15-65 [facility] Comment on above: Performed at: [place] [id number] Director: Lux Adorno PhD, Phone: [phone] Phosphorus Level 3.7 mg/dL 2.6-4.7 [facility] Platelet mean volume Auto (B ld) [Entitic vol]on 03-21-2024 Platelet mean volume (Bld) [Entitic vol] Platelet mean volume [Entitic volume] in Blood by Automated count Low 9.5-13.5 [facility] Platelets Auto (Bld) [#/Vol] on 03-21-2024 Platelets (Bld) [#/Vol] Platelets [#/vol ume] in Blood by Automated count 150-450 [facility] RBC Auto (Bld) [#/Vol]on RBC (Bld) [#/Vol] Erythrocytes [#/volu me] in Blood by Automated count 4.20-5.40 [facility] Serum or plasma anion gap de terminationon 03-21-2024 Anion gap [Moles/Vol] Serum or plasma an ion gap determination [facility] Urine protein/creatinine rat ioon 03-21-2024 Protein/Creatinine (U) [Ratio] Urine protein/creatinine ratio [facility] ED Note-Physicianon 03-10-20 ED Note-Physician ED Note-Physician Basic Information Time Seen: Julio Escalante PA-C 03/06/2024 14:57 Chief Complaint Pt to ED for vision changes. Has had issues intermittently since january. Went to [facility] who sent over for stroke workup. both [...] made to ensure accuracy, however, inadvertently computerized investigation specialist mistakes may be present. Appropriate healthcare PPE [...] 15:17:00) Lymph Auto: 25 % (03/06/24 15:17:00) [place] Auto: 10.2 % (03/06/24 15:17:00) Eos Auto: 1 % (12/ (more content not included)... Normal [facility] Comment on above: Result Comment: Elec tronically [...] Locations R1: This test was performed at: [facility], [address] [place] [address], [facility] , , [facility] Comment on above: Performed By: #### 2 [id number] #### [facility] Laboratory [address] [place] [address] Lab Miscellaneous-LCon 03-08 Lab Miscellaneous COMMENT Invalid Interpretation Code [facility] Comment on above: Result Comment: Test Ordered: [id number] Hemoglobin A1c Hemoglobin A1c 5.4 % CB Reference Range: 4.8-5.6 Prediabetes: 5.7 - 6.4 Diabetes: >6.4 Glycemic control for adults with diabetes: <7.0 Performed at: [facility] [address], [place] [id number] PhD Tila Wasserman Performed By: #### 1 [id number] #### [facility] Laboratory [address] [place] [address] BMPon 03-07-2024 Anion gap [Moles/Vol] 11 mmol/L Normal 6-16 [facility] Comment on above: Performed By: #### 2 [id number] #### [facility] Laboratory [address] [place] [address] Calcium [Mass/Vol] 9.3 mg/dL Normal 8.9-11.1 [facility] Comment on above: Performed By: #### 2 [id number] #### [facility] Laboratory [address] [place] [address] Chloride [Moles/Vol] 97 mmol/L Low 101-111 [facility] Comment on above: Performed By: #### 2 [id number] #### [facility] Laboratory [address] [place] [address] CO2 [Moles/Vol] 26 mmol/L Normal 21-31 [facility] Comment on above: Performed By: #### 2 [id number] #### [facility] Laboratory [address] [place] [address] Creatinine [Mass/Vol] 0.9 mg/dL Normal 0.5-1.3 [facility] Comment on above: Performed By: #### 2 [id number] #### [facility] Laboratory [address] [place] [address] Glucose [Mass/Vol] 109 mg/dL Normal 55-199 [facility] Comment on above: Performed By: #### 2 [id number] #### [facility] Laboratory [address] [place] [address] Potassium [Moles/Vol] 3.8 mmol/L Normal 3.5-5.3 [facility] Comment on above: Performed By: #### 2 [id number] #### [facility] Laboratory [address] [place] [address] Sodium [Moles/Vol] 130 mmol/L Low 135-145 [facility] Comment on above: Performed By: #### 2 [id number] #### [facility] [address] [place] [address] Urea nitrogen [Mass/Vol] 16 mg/dL Normal 5-21 [facility] Comment on above: Performed By: #### 2 [id number] #### [facility] Laboratory [address] [place] [address] Urea nitrogen/Creatinine [Mass ratio] 18 No Units Normal 10-20 [facility] Comment on above: Performed By: #### 2 [id number] #### [facility] Laboratory [address] [place] [address] CBC w/ Auto Diffon 4 Basophils/100 WBC (Bld) 0.5 % Normal 0.0-2.0 [facility] Comment on above: Performed By: #### 2 [id number] #### [facility] Laboratory [address] [place] [address] Basophils/Leukocytes Auto (Bld) [Pure # fraction] 0.0 E9/L Normal 0.0-0.2 [facility] Comment on above: Performed By: #### 2 [id number] #### [facility] Laboratory [address] [place] [address] Eosinophils (Bld) [#/Vol] 0.1 E9/L Normal 0.0-0.5 [facility] Comment on above: Performed By: #### 2 [id number] #### [facility] Laboratory [address] [place] [address] Eosinophils/100 WBC (Bld) 0.8 % Normal 0.0-8.0 [facility] Comment on above: Performed By: #### 2 [id number] #### [facility] Laboratory [address] [place] [address] Erythrocyte distribution width (RBC) [Ratio] 13.6 % Normal 10.9-14.2 [facility] Comment on above: Performed By: #### 2 [id number] #### [facility] Laboratory [address] [place] [address] Hematocrit (Bld) [Volume fraction] 42.2 % Normal 34.0-46.0 [facility] Comment on above: Performed By: #### 2 [id number] #### [facility] Laboratory [address] [place] [address] Hemoglobin (Bld) [Mass/Vol] 15.0 g/dL Normal 12.0-16.0 [facility] Comment on above: Performed By: #### 2 [id number] #### [facility] Laboratory [address] [place] [address] Lymphocytes (Bld) [#/Vol] 1.2 E9/L Normal 1.0-4.0 [facility] Comment on above: Performed By: #### 2 [id number] #### [facility] Laboratory [address] [place] [address] Lymphocytes/100 WBC (Bld) 13.0 % Low 14.0-50.0 [facility] Comment on above: Performed By: #### 2 [id number] #### [facility] Laboratory [address] [place] [address] MCH (RBC) [Entitic mass] 31.3 pg Normal 27.0-34.0 [facility] Comment on above: Performed By: #### 2 [id number] #### [facility] Laboratory [address] [place] [address] MCHC (RBC) [Mass/Vol] 35.7 g/dL Normal 31.4-36.0 [facility] Comment on above: Performed By: #### 2 [id number] #### [facility] Laboratory [address] [place] [address] MCV (RBC) [Entitic vol] 87.8 fL Normal 80.0-100.0 F [facility] Comment on above: Performed By: #### 2 [id number] #### [facility] Laboratory [address] [place] [address] Monocytes (Bld) [#/Vol] 0.9 E9/L Normal 0.2-1.0 F [facility] Comment on above: Performed By: #### 2 [id number] #### [facility] Laboratory [address] [place] [address] Neutrophils (Bld) [#/Vol] 7.2 E9/L Normal 2.0-7.5 [facility] Comment on above: Performed By: #### 2 853100 #### [facility] Laboratory [address] [place] [address] Neutrophils/100 WBC (Bld) 76.5 % High 36.0-75.0 [facility] Comment on above: Performed By: #### 2 [id number] #### [facility] Laboratory [address] [place] [address] Platelet mean volume (Bld) [Entitic vol] 7.7 fL Normal 6.4-10.8 [facility] Comment on above: Performed By: #### 2 [id number] #### [facility] Laboratory [address] [place] [address] Platelets (Bld) [#/Vol] 218.0 E9/L Normal 150. 0-500. 0 [facility] Comment on above: Performed By: #### 2 [id number] #### [facility] Laboratory [address] [place] [address] RBC (Bld) [#/Vol] 4.8 E12/L Normal 4.3-5.9 [facility] Comment on above: Performed By: #### 2 [id number] #### [facility] Laboratory [address] [place] [address] WBC corrected for nucl RBC Auto (Bld) [#/Vol] 9.4 E9/L Normal 4.0-11.0 [facility] Comment on above: Performed By: #### 2 [id number] #### [facility] Laboratory [address] [place] [address] CHEMISTRYOrdered By: SYSTEM SYSTEM on 03-07-2024 Anion [...] 370 Contrast amount in ml's: 100 Normal [facility] CTA Neckon 03-07-2024 CTA Neck Exam Date/Time: [...] of the vertebrobasilar circulation with small caliber digital marketing executive, without distinct focal high-grade proximal stenosis of the digital marketing executive within limits of the small caliber. Dural venous sinuses: Visualized dural venous sinuses are patent. Ordering Provider: Abdulkadir Amaro FINAL REPORT Dictated: 03/07/2024 12:27 pm Marlon Flores MD Signed (Electronic Signature): 03/07/2024 12:27 pm Signed by: Marlon Flores MD Transcribed by: IGOR Technologist: DOMENICO Technical Comments GFR (mL/min/1/73m2) >60 Contrast: Isovue 370 Contrast amount in ml's: 100 Normal [facility] HEMATOLOGYOrdered By: SYSTEM SYSTEM on 03-07-2024 Basophils/100 [...] 03-07-2024 Inpatient Clinical Summary Inpatient Clinical Summary [place] [address] Clinical Summary Person Information: Name: JANELLE BURT Age: 83 Years : 1940 Sex: Female PCP: ANTONINO GUSTAFSON MD Marital Status: Single Race: White Ethnicity: Non- or Language: Pakistani Visit Id: Visit Reason: Vision changes; SENT BY EYE DOCTOR - POSSIBLE STROKE Speciality: Acuity: Enc Type: Observation Med Service: Medical Arrival: 03/06/2024 14:47:18 Discharge: [facility]po [facility] Address: [address] [place] [id number] Provider Notes: Diagnosis: 1:CVA (cerebrovascular accident); 2:HTN [...] Follow up: With: Address: When: [place] [address] Within 5 to 7 days Comments: Call for followup appointment to talk about switching from Eliquis to Coumadin once you are out of Eliquis With: Address: When: [place] [phone] Within 2 to 4 weeks Patient Education Information: Atrial Fibrillation, [id number]; Core Measures: Stroke (Cerebrovascular Accident) [facility] Inpatient Patient Summaryon 03-07-2024 Inpatient Patient [...] Up Appointments after Discharge Follow Up with SJ MORA, KASH MUÑIZ When: Within 5 to 7 days Comments: Call for followup appointment to talk about switching from Eliquis to Coumadin once you are out of Eliquis Where: [address] [place] [id number]- Follow Up with Shawn MORA, YVES Galvin When: Within 2 to 4 weeks Where: [address] [address]- Medications What How Much When Instructions Next Dose New atorvastatin (atorvastatin 40 mg Tab) 1 Tablets By Mouth At bedtime Pickup at [facility]/pharmacy #[id number] 03/07 0900PM Changed apixaban (Eliquis 5 mg [...] as needed for chest pain Pharmacy Information [facility]/pharmacy #[id number]: [address], [place] [id number] [phone] Test Results CBC BMP WBC: 9.4 E9/L [...] 3.8 mmol/L (03/07/24 06:09:00) MCHC: 35.7 gm/dL (03/07/24 06:09:00) Chloride: 97 mmol/L Low (03/07/24 06:09:00) RDW: 13.6 % (03/07/24 06:09:00) CO2: 26 mmol/L (03/07/24 06:09:00) Platelet: 218 E9/L (03/07/24 06:09:00) AGAP: 11 mEq/L (03/07/24 06:09:00) MPV: 7.7 fL (03/07/24 06:09:00) Calcium Lvl: 9.3 mg/dL (03/07/24 06:09:00) Allergies [...] ??? Y (more content not included)... Normal [facility] Interdisciplinary Note - Rikki e Manageron 03-07-2024 Interdisciplinary Note - Fur Grader Interdisciplinary Note - Fur Grader CRM to room 304 Patient is awake, [...] eliqius priced. Patient was provided CRM contact, white board updated. CRM following Eliquis was priced and patient had a 90 day fill on 02/15 that farooq was 431.26 Cant farooq a new script Will supply a 30 day free card to use in future but unsure if it will work until that date comes [facility] for transport. Patient has family assistance as needed Transport flyers are in admission folder Patient does not need to meet for Advance Directives [facility] Comment on above: Result Comment: Elec tronically Signed By: Yaneli Day\.br\Date and Time Signed: 03/07/24 15:09 EST Interdisciplinary Note - Berkley n 03-07-2024 Interdisciplinary Note - OT Interdisciplinary Note - OT OT [facility] six clicks score 22/ = no further inpatient OT needs. However, discussed referral to outpatient OT for evaluation of visual field cuts and education on retraining, remediation and home program/home safety techniques to optimize improvement. Patient is agreeable but is unable to drive. Patient reports she would be interested in senior services transportation if available. DC inpatient OT needs. Normal [facility] Interdisciplinary Note - Spe ech Languageon 03-07-2024 Interdisciplinary Note - Speech Language Interdisciplinary Note - Speech Language ST 03/07/24: per nursing no issues noted. pt with regular breakfast tray present, reports no issues with talking or swallowing. will cancel order at this time. please reconsult as needed. nursing aware/in agreement. Normal [facility] Lab Miscellaneous-LCon 03-07 Test Code [id number] Invalid Interpretation Code [facility] Comment on above: Performed By: #### 1 [id number] #### [facility] Laboratory [address] [place] [address] Test Name HbA1c Invalid Interpretation Code [facility] Comment on above: Performed By: #### 1 [id number] #### [facility] Laboratory [address] [place] [address] Lipid Panelon 03-07-2024 Cholesterol [Mass/Vol] 160 mg/dL Normal 120-200 [facility] Comment on above: Performed By: #### 2 [id number] #### [facility] Laboratory [address] [place] [address] Cholesterol in HDL [Mass/Vol] 49 mg/dL Invalid Interpretation Code [facility] Comment on above: Result Comment: '>= 60 LOW RISK' '<= 40 HIGH RISK' Performed By: #### 2 [id number] #### [facility] Laboratory [address] [place] [address] Cholesterol in LDL [Mass/Vol] 100 mg/dL Normal <=129 [facility] Comment on above: Performed By: #### 2 [id number] #### [facility] Laboratory [address] [place] [address] Cholesterol in VLDL [Mass/Vol] 21 mg/dL Normal 7-40 [facility] Comment on above: Performed By: #### 2 [id number] #### [facility] [address] [place] [address] Triglyceride [Mass/Vol] 107 mg/dL Normal <=149 [facility] [facility] Comment on above: Performed By: #### 2 [id number] #### [facility] [address] [place] [address] MRI Brain w/o Contraston MRI Brain w/o [...] IGOR Technologist: KIMBERLY Technical Comments None Normal [facility] Reference Laboratory Testing Ordered By: Yolanda Raphael on 03-07-2024 Test Code 200744 1 Invalid Interpretation Code [facility] SendOutsSS Test Name HbA1c Invalid Interpretation Code [facility] SendOutsSS eGFRon 03-07-2024 eGFR 63 mL/min/1.73 m2 Normal >=59 [facility] Comment on above: Performed By: #### 1 [id number] #### [facility] Laboratory [address] [place] [address] BB Draw & Holdon 03-06-2024 BB D&H Sample drawn for Blood Ba Normal [facility] Comment on above: Performed By: #### 1 [id number] #### [facility] Laboratory [address] [place] [address] CBC w/ Auto Diffon 4 Basophils/100 WBC (Bld) 0.8 % Normal 0.0-2.0 [facility] Comment on above: Performed By: #### 2 [id number] #### [facility] Laboratory [address] [place] [address] Basophils/Leukocytes Auto (Bld) [Pure # fraction] 0.1 E9/L Normal 0.0-0.2 [facility] Comment on above: Performed By: #### 2 [id number] #### [facility] Laboratory [address] [place] [address] Eosinophils (Bld) [#/Vol] 0.1 E9/L Normal 0.0-0.5 [facility] Comment on above: Performed By: #### 2 [id number] #### [facility] Laboratory [address] [place] [address] Eosinophils/100 WBC (Bld) 1.0 % Normal 0.0-8.0 [facility] Comment on above: Performed By: #### 2 [id number] #### [facility] Laboratory [address] [place] [address] Erythrocyte distribution width (RBC) [Ratio] 13.5 % Normal 10.9-14.2 [facility] Comment on above: Performed By: #### 2 [id number] #### [facility] Laboratory [address] [place] [address] Hematocrit (Bld) [Volume fraction] 40.7 % Normal 34.0-46.0 [facility] Comment on above: Performed By: #### 2 [id number] #### [facility] Laboratory [address] [place] [address] Hemoglobin (Bld) [Mass/Vol] 14.5 g/dL Normal 12.0-16.0 [facility] Comment on above: Performed By: #### 2 [id number] #### [facility] Laboratory [address] [place] [address] Lymphocytes (Bld) [#/Vol] 2.2 E9/L Normal 1.0-4.0 [facility] Comment on above: Performed By: #### 2 [id number] #### [facility] Laboratory [address] [place] [address] Lymphocytes/100 WBC (Bld) 25.0 % Normal 14.0-50.0 [facility] Comment on above: Performed By: #### 2 [id number] #### [facility] Laboratory [address] [place] [address] MCH (RBC) [Entitic mass] 31.4 pg Normal 27.0-34.0 [facility] Comment on above: Performed By: #### 2 [id number] #### [facility] Laboratory [address] [place] [address] MCHC (RBC) [Mass/Vol] 35.6 g/dL Normal 31.4-36.0 [facility] Comment on above: Performed By: #### 2 [id number] #### [facility] Laboratory [address] [place] [address] MCV (RBC) [Entitic vol] 88.3 fL Normal 80.0-100.0 [facility] Comment on above: Performed By: #### 2 [id number] #### [facility] Laboratory [address] [place] [address] Monocytes (Bld) [#/Vol] 0.9 E9/L Normal 0.2-1.0 [facility] Comment on above: Performed By: #### 2 [id number] #### [facility] Laboratory [address] [place] [address] Neutrophils (Bld) [#/Vol] 5.4 E9/L Normal 2.0-7.5 [facility] Comment on above: Performed By: #### 2 [id number] #### [facility] Laboratory [address] [place] [address] Neutrophils/100 WBC (Bld) 63.0 % Normal 36.0-75.0 [facility] Comment on above: Performed By: #### 2 [id number] #### [facility] Laboratory [address] [place] [address] Platelet mean volume (Bld) [Entitic vol] 7.6 fL Normal 6.4-10.8 [facility] Comment on above: Performed By: #### 2 [id number] #### [facility] Laboratory [address] [place] [address] Platelets (Bld) [#/Vol] 205.0 E9/L Normal 150. 0-500. 0 [facility] Comment on above: Performed By: #### 2 [id number] #### [facility] Laboratory [address] [place] [address] RBC (Bld) [#/Vol] 4.6 E12/L Normal 4.3-5.9 [facility] Comment on above: Performed By: #### 2 [id number] #### [facility] Laboratory [address] [place] [address] WBC corrected for nucl RBC Auto (Bld) [#/Vol] 8.6 E9/L Normal 4.0-11.0 [facility] Comment on above: Performed By: #### 2 [id number] #### [facility] Laboratory [address] [place] [address] CHEMISTRYOrdered By: SYSTEM SYSTEM on 03-06-2024 Albumin [...] Instructions For Use, Carla Love, October 2017) Urea nitrogen [Mass/Vol] 21 mg/dL Normal 5 - 21 mg/dL Remisol Chem Urea nitrogen/Creatinine [Mass ratio] 19 mg/mg Normal 10 - 20 Remisol Chem CHEMISTRYOrdered By: Parker ROP User on 03-06-2024 Glucose [Mass/Vol] 89 mg/dL Normal 55 - 99 mg/dL [facility] POC Subsection Comment on above: Result Comment: Johnathon spears RN/ POC Device SN [id number] Invalid Interpretation Code [facility] POC Subsection POC User ID [id number] Invalid Interpretation Code [facility] POC Subsection POC Username ESTELLE FOX Invalid Interpretation Code [facility] POC Subsection CMPon 03-06-2024 Albumin [Mass/Vol] 3.9 g/dL Normal 3.3-5.0 [facility] Comment on above: Performed By: #### 2 [id number] #### [facility] Laboratory [address] [place] [address] Albumin/Globulin (S) [Mass conc ratio] 1.2 Normal 1.1-2.2 [facility] Comment on above: Performed By: #### 2 [id number] #### [facility] Laboratory [address] [place] [address] ALP [Catalytic activity/Vol] 51 Int._Unit/L Normal 21-98 [facility] Comment on above: Performed By: #### 2 [id number] #### [facility] Laboratory [address] [place] [address] ALT No additional P-5'-P [Catalytic activity/Vol] 10 Int._Unit/L Normal 6-46 [facility] Comment on above: Performed By: #### 2 [id number] #### [facility] Laboratory [address] [place] [address] Anion gap [Moles/Vol] 9 mmol/L Normal 6-16 [facility] Comment on above: Performed By: #### 2 [id number] #### [facility] [address] [place] [address] AST [Catalytic activity/Vol] 16 Int._Unit/L Normal 5-43 [facility] Comment on above: Performed By: #### 2 [id number] #### [facility] Laboratory [address] [place] [address] Bilirubin [Mass/Vol] 0.9 mg/dL Normal 0.0-1.1 [facility] Comment on above: Performed By: #### 2 [id number] #### [facility] Laboratory [address] [place] [address] Calcium [Mass/Vol] 9.4 mg/dL Normal 8.9-11.1 [facility] Comment on above: Performed By: #### 2 [id number] #### [facility] [address] [place] [address] Chloride [Moles/Vol] 95 mmol/L Low 101-111 [facility] Comment on above: Performed By: #### 2 [id number] #### [facility] [address] [place] [address] CO2 [Moles/Vol] 29 mmol/L Normal 21-31 [facility] Comment on above: Performed By: #### 2 [id number] #### [facility] Laboratory [address] [place] [address] Creatinine [Mass/Vol] 1.1 mg/dL Normal 0.5-1.3 [facility] Comment on above: Performed By: #### 2 [id number] #### [facility] Laboratory [address] [place] [address] Globulin (S) [Mass/Vol] 3.2 g/dL Normal 1.4-4.0 [facility] Comment on above: Performed By: #### 2 [id number] #### [facility] Laboratory [address] [place] [address] Glucose [Mass/Vol] 97 mg/dL Normal 55-199 [facility] Comment on above: Performed By: #### 2 [id number] #### [facility] Laboratory [address] [place] [address] Potassium [Moles/Vol] 4.1 mmol/L Normal 3.5-5.3 [facility] Comment on above: Performed By: #### 2 338874 #### [facility] Laboratory [address] [place] [address] Protein [Mass/Vol] 7.1 g/dL Normal 6.0-7.8 [facility] Comment on above: Performed By: #### 2 [id number] #### [facility] Laboratory [address] [place] [address] Sodium [Moles/Vol] 129 mmol/L Low 135-145 [facility] Comment on above: Performed By: #### 2 [id number] #### [facility] Laboratory [address] [place] [address] Urea nitrogen [Mass/Vol] 21 mg/dL Normal 5-21 [facility] Comment on above: Performed By: #### 2 [id number] #### [facility] Laboratory [address] [place] [address] Urea nitrogen/Creatinine [Mass ratio] 19 No Units Normal 10-20 [facility] Comment on above: Performed By: #### 2 [id number] #### [facility] Laboratory [address] [place] [address] COAGULATIONOrdered By: Arvin Quevedo on 03-06-2024 aPTT Coag (PPP) [Time] 29.4 s Normal 25.1 - 36.5 second(s) [facility] Auto Coag Comment on above: Interpretive Data: Claudy ross 15 days - 4 weeks 1 - 5 months 6 - 11 months 1 - 5 years 6 - 10 years 11 - 17 years PTT Mean: 35.4 (27.6-45.6) Mean: 33.5 (24.8-40.7) Mean: 32.4 (25.1-40.7) Mean: 31.6 (24.0-39.2) Mean: 31.6 (26.9-38.7) Mean: 31.0 (24.6-38.4) Pediatric Reference ranges were obtained from a study by george Salazar al. prepared from 1437 samples obtained at 7 different centers using the same coagulation reagent and instrumentation as [facility]. Currently there are no coagulation studies available worldwide for children to 14 days, and no normal ranges. Heparin therapeutic range (represented by Anti-Factor Xa activity of 0.2 - 0.4 U/mL) corresponds to PTT of 56.6 - 109.0 sec. INR Coag (PPP) [Relative time] 1.05 {INR} Invalid Interpretation Code [facility] Auto Coag Comment on above: Interpretive Data: I NR results are specifically intended to assess patients stabilized on long-term Anticoagulation therapy suggested INR s Less Intensive Anticoagulation 2.0 3.0 Conventional Range 3.0 4.5 PT Coag (PPP) [Time] 11.8 s Normal 9.4 - 1 2.5 second(s) [facility] Auto Coag Comment on above: Interpretive Data: [...] the same coagulation reagent and instrumentation as [facility]. Currently there are no coagulation studies available worldwide for children to 14 days, and no normal ranges. CT Head or Brain w/o Queenieas ton 03-06-2024 CT Head or Brain w/o [...] MD Transcribed by: IGOR Technologist: EDUAR Normal [facility] Capillary Glucose POCon Glucose [Mass/Vol] 89 mg/dL Normal 55-99 [facility] Comment on above: Result Comment: Johnathon spears RN/ Performed By: #### 2 [id number] #### [facility] Laboratory [address] [place] [address] ED Clinical Summaryon 2023 ED Clinical Summary ED Clinical Summary [address] [address] ED Clinical Summary Person Information Name: JANELLE BURT/[facility] Age: 83 Years : 1940 Sex: Female Language: Pakistani PCP: ANTONINO GUSTAFSON MD Marital Status: Single Visit Id: Visit Reason: Vision changes; SENT BY EYE DOCTOR - POSSIBLE STROKE Speciality: Acuity: 2 Enc Type: Observation Med Service: Medical Arrival: 03/06/2024 14:47:18 Discharge: LOS: 000 05:16 Checkin: 03/06/2024 14:47:18 Checkout: 03/06/2024 20:03:26 [facility]po Type: [facility] EVENTS: Event Name Event Status Request [...] 03/06/2024 20:03:26 03/06/2024 20:03:26 03/06/2024 20:03:26 ADDRESS: [address] [place] [id number] PHYS DOC NOTES: MEDICAL INFORMATION: Prescriptions Given: PATIENT EDUCATION INFORMATION: Instructions: Follow up: DIAGNOSIS: 1:CVA (cerebrovascular accident); 2:HTN (hypertension); 3:Hypothyroidism; 4:A-fib; 5:Hyperlipidemia Normal [facility] ED Note-Nursingon 03-06-2024 ED Note-Nursing ED Note-Nursing Pt returns from MRI. Normal [facility] ED Note-Nursing ED Note-Nursing Finger stick at 1502 is 89 Normal [facility] ED Patient Education Noteon 03-06-2024 ED Patient Education Note ED Patient Education Note Normal [facility] ED Patient Summaryon ED Patient Summary ED Patient Summary [place] [id number] Patient Discharge Instructions Person Information Name: JANELLE BURT Age: 83 Years Arrival Date: 03/06/2024 14:47:18 Discharge Diagnosis: 1:CVA (cerebrovascular accident); 2:HTN (hypertension); 3:Hypothyroidism; 4:A-fib; 5:Hyperlipidemia Primary Care Physician: ANTONINO GUSTAFSON MD Provider Information Primary Provider: Rolando Zarco DO [employer] Molder:Julio Escalante PA-C The exam and treatment you received in the Emergency Department were for an urgent problem and are not intended as complete care. It is important that you follow up with a doctor, nurse practitioner, or physician???s billing and accounting staff assistant for ongoing care. If your symptoms [...] opioids can be used to help relieve xzukvzhr-zz-blhgvd pain and are often prescribed following a [...] be struggling with addiction, tell your health ocular care technologist and ask for guidance or call [facility]???S National Helpline at 9-997-029-DJDS. (more content not included)... Normal [facility] HEMATOLOGYOrdered By: SYSTEM SYSTEM on 03-06-2024 Basophils/100 [...] (U) 1,000 cfu/ml Mixed skin contaminants [facility] PT & PTTon 03-06-2024 aPTT Coag (PPP) [Time] 29.4 second(s) Normal 25.1-36.5 [facility] Comment on above: Result Comment: Para meter 15 days - 4 weeks 1 - 5 months 6 - 11 months 1 - 5 years 6 - 10 years 11 - 17 years PTT Mean: 35.4 (27.6-45.6) Mean: 33.5 (24.8-40.7) Mean: 32.4 (25.1-40.7) Mean: 31.6 (24.0-39.2) Mean: 31.6 (26.9-38.7) Mean: 31.0 (24.6-38.4) Pediatric Reference ranges were obtained from a study by marianne Salazar prepared from 1437 samples obtained at 7 different centers using the same coagulation reagent and instrumentation as [facility]. Currently there are no coagulation studies available worldwide for children to 14 days, and no normal ranges. Heparin therapeutic range (represented by Anti-Factor Xa activity of 0.2 - 0.4 U/mL) corresponds to PTT of 56.6 - 109.0 sec. Performed By: #### 1 [id number] #### [facility] Laboratory [address] [place] [address] INR Coag (PPP) [Relative time] 1.05 {INR} Invalid Interpretation Code [facility] Comment on above: Result Comment: INR results are specifically intended to assess patients stabilized on long-term Anticoagulation therapy suggested INR???s ???Less Intensive Anticoagulation??? 2.0 ??? 3.0 Conventional Range 3.0 ??? 4.5 Performed By: #### 1 [id number] #### [facility] Laboratory [address] [place] [address] PT Coag (PPP) [Time] 11.8 second(s) Normal 9.4-12.5 [facility] Comment on above: Result Comment: 15 d [...] ranges were obtained from a study by marianne Salazar prepared from 1437 samples obtained at 7 different centers using the same coagulation reagent and instrumentation as [facility]. Currently there are no coagulation studies available worldwide for children to 14 days, and no normal ranges. Performed By: #### 1 [id number] #### [facility] Laboratory [address] [place] [address] Perimetry studyon 03-06-2024 Right Eye Reliability was poor. Left Eye Reliability was poor. Notes Lt homonymous deni [facility] Radiology Study observation (narrative) [facility] Troponin 0 Hr.on 03-06-2024 Troponin HS 5.30 pg/mL Low 10.10-27.1 0 [facility] Comment on above: Result Comment: The 95% CI (Confidence Interval) PPV (Positive Predictive Value) for myocardial infarction in females is 38 pg/mL, in males 51 pg/mL. The results should be used in conjunction with clinical conditions of myocardial infarction. (Access High Sensitivity Troponin I Instructions For Use, Carla Landingi, October 2017) Performed By: #### 1 [id number] #### [facility] Laboratory [address] [place] [address] UA with Cult Rflxon 03-06-20 24 Bilirubin Ql (U) Negative Normal Negative [facility] Comment on above: Performed By: #### 4 [id number] #### [facility] Laboratory [address] [place] [address] Clarity (U) Clear Normal Clear [facility] Comment on above: Performed By: #### 4 [id number] #### [facility] Laboratory [address] [place] [address] Color (U) Yellow Normal Yellow [facility] Comment on above: Result Comment: Micr oscopic readings are only performed on those samples that meet specific criteria set forth by [facility] Laboratory. Performed By: #### 4 [id number] #### [facility] Laboratory [address] [place] [address] Epithelial cells.squamous Auto (Urine sed) [#/Area] 3-4 Invalid Interpretation Code [facility] Comment on above: Performed By: #### 4 [id number] #### [facility] Laboratory [address] [place] [address] Glucose Ql (U) Negative Normal Negative [facility] Comment on above: Performed By: #### 4 [id number] #### [facility] Laboratory [address] [place] [address] Hemoglobin Auto test strip (U) [Mass/Vol] Negative Normal Negative [facility] Comment on above: Performed By: #### 4 [id number] #### [facility] Laboratory [address] [place] [address] Ketones Auto test strip Ql (U) Negative Normal Negative [facility] Comment on above: Performed By: #### 4 [id number] #### [facility] Laboratory [address] [place] [address] Leukocyte esterase Auto test strip Ql (U) 250 Mohit/uL Abnormal Negative [facility] Comment on above: Performed By: #### 4 [id number] #### [facility] Laboratory [address] [place] [address] Mucus Auto Ql (U) Trace Normal Negative [facility] Comment on above: Performed By: #### 4 [id number] #### [facility] Laboratory [address] [place] [address] Nitrite Auto test strip Ql (U) Negative Normal Negative [facility] Comment on above: Performed By: #### 4 [id number] #### [facility] Laboratory [address] [place] [address] pH (U) 5.5 [pH] Invalid Interpretation Code 5.0-9.0 [facility] Comment on above: Performed By: #### 4 [id number] #### [facility] Laboratory [address] [place] [address] Protein Ql (U) Negative Normal Negative [facility] Comment on above: Performed By: #### 4 [id number] #### [facility] Laboratory [address] [place] [address] RBC Ql (U) 0-3 Normal 0-3 [facility] Comment on above: Performed By: #### 4 [id number] #### [facility] Laboratory [address] [place] [address] Specific gravity (U) [Rel density] 1.019 Invalid Interpretation Code 1.005-1.03 0 [facility] Comment on above: Performed By: #### 4 [id number] #### [facility] Laboratory [address] [place] [address] Urobilinogen (U) [Mass/Vol] Negative Normal Negative [facility] Comment on above: Performed By: #### 4 [id number] #### [facility] Laboratory [address] [place] [address] WBC Auto (Urine sed) [#/Area] 6-15 Abnormal 0-5 [facility] Comment on above: Performed By: #### 4 [id number] #### [facility] Laboratory [address] [place] [address] Type of Urine collection method Clean Catch Normal [facility] Comment on above: Performed By: #### 4 [id number] #### [facility] Laboratory [address] [place] [address] URINALYSISOrdered By: SYSTEM SYSTEM on 03-06-2024 Bilirubin Ql (U) Negative Normal Negativemg /dL [facility] UA Auto SS Clarity (U) Clear (03/06/24 7:55 PM) Normal Clear [facility] UA Auto SS Color (U) Yellow 1 (03/06/24 7:55 PM) Normal Yellow [facility] UA Auto SS Comment on above: Interpretive Data: M icroscopic readings are only performed on those samples that meet specific criteria set forth by [facility] Laboratory. Epithelial cells.squamous Auto (Urine sed) [#/Area] 3-4 graded/HPF Invalid Interpretation Code FT UA Auto SS Glucose Ql (U) Negative Normal Negativemg /dL FT UA Auto SS Hemoglobin Auto test strip [...] strip Ql (U) Negative Normal Negativemg /dL FT UA Auto SS pH (U) 5.5 *NA* (03/06/24 7:55 PM) Invalid Interpretation Code 5.0 - 9.0 FT UA Auto SS Protein Ql (U) Negative Normal Negativemg /dL FT UA Auto SS RBC Ql (U) 0-3 graded/HPF Normal 0-3graded/ HPF FT UA Auto SS Specific gravity (U) [Rel density] 1.019 *NA* (03/06/24 7:55 PM) Invalid Interpretation Code 1.005 - 1.030 [facility] UA Auto SS Urobilinogen (U) [Mass/Vol] Negative Normal Negativemg /dL [facility] UA Auto SS WBC Auto (Urine sed) [#/Area] 6-15 graded/HPF Invalid Interpretation Code 0-5graded/ HPF [facility] UA Auto SS URINALYSISOrdered By: Julio Escalante on 03-06-2024 UA Spec Desc Clean Catch (03/06/24 7:55 PM) Normal [facility] Work Phone: XR Chest [...] mGy = na DAP = na Normal [facility] eGFRon 03-06-2024 eGFR 49 mL/min/1.73 m2 Low >=59 [facility] Comment on above: Performed By: #### [id number] #### [facility] [address] [place] [address] Urine Cultureon 02-17-2024 Bacteria identified Cx Nom (U) ORGANISM: Pseudomonas aeruginosa (O:PSEAER) Hymera Count <10,000 Aerobic TONY Charge (NMIC56) SUSCEPTIBILITY [...] RESISTANT TO ALL B-LACTAM DRUGS. PERFORMED BY: [facility] [address] [place] [address] PATHOLOGIST TOPPIECE CUTTER KARAN TINSLEY M.D. Normal [facility] Comment on above: Performed By: #### C UU #### [facility] [address] [place] [address] [place] Basophils Auto (Bld) [#/Vol] on 02-05-2024 Basophils (Bld) [#/Vol] Automated basophil count 0.0-0.1 [facility] Basophils/100 WBC Auto (Bld) on 02-05-2024 Basophils/100 WBC (Bld) Automated basophil % 0. 2-2.0 [facility] Eosinophils/100 WBC Auto (Bl d)on 02-05-2024 Eosinophils/100 WBC (Bld) Automated eosinophil % 0.9-7.0 [facility] Erythrocyte distribution wid th Auto (RBC) [Ratio]on 02-05-2024 Erythrocyte distribution width (RBC) [Ratio] Erythrocyte distribution width [Ratio] by Automated count 11.0-15.0 [facility] Estimated glomerular filtrat ion rate (GFR) non- Americanon 02-05-2024 GFR/1.73 sq M.predicted among non-blacks MDRD (S/P/Bld) [Vol rate/Area] Estimated glomerular filtration rate (GFR) non- Low >=60 mL/min/1.7 3m 2 [facility] Hematocrit Auto (Bld) [Volum e fraction]on 02-05-2024 Hematocrit (Bld) [Volume fraction] Hematocrit [Volume Fraction] of Blood by Automated count 36.0-48.0 [facility] Hemoglobin [Mass/volume] in Bloodon 02-05-2024 Hemoglobin (Bld) [Mass/Vol] Hemoglobin [Mass/volume] in Blood 12.0-16.0 [facility] - Chemistry and C hemistry - challengeon 02-05-2024 Calcium [Mass/Vol] 9.5 mg/dL 8.5-10.1 [facility] Chloride [Moles/Vol] 95 mmol/L Low 98-107 [facility] CO2 [Moles/Vol] 26.7 mmol/L 21.0-32.0 [facility] Creatinine [Mass/Vol] 1.30 mg/dL High 0.55-1.02 [facility] GFR/1.73 sq M.predicted MDRD (S/P/Bld) [Vol rate/Area] 47 mL/min/{1.73_m2} Low >=60 mL/min/1.7 3m 2 [facility] Glucose [Mass/Vol] 115 mg/dL High 74-106 [facility] Potassium [Moles/Vol] 4.1 mmol/L 3.5-5.1 [facility] Sodium [Moles/Vol] 132 mmol/L Low 136-145 [facility] Urea nitrogen [Mass/Vol] 14.0 mg/dL 7.0-18.0 [facility] Urea nitrogen/Creatinine [Mass ratio] 10.8 mg/mg [facility] - Hematology and Cell countson 02-05-2024 Immature granulocytes/100 WBC (Bld) 0.1 % 0.0-0.5 [facility] Leukocytes [#/volume] correc chacho for nucleated erythrocytes in Blood by Automated counon 02-05-2024 WBC corrected for nucl RBC Auto (Bld) [#/Vol] Leukocytes [#/volume] corrected for nucleated erythrocytes in Blood by Automated coun 4.0-11.0 [facility] Lymphocytes Auto (Bld) [#/Vo l]on 02-05-2024 Lymphocytes (Bld) [#/Vol] Lymphocytes [#/volume] in Blood by Automated count 1.2-3.8 [facility] Lymphocytes/100 WBC Auto (Bl d)on 02-05-2024 Lymphocytes/100 WBC (Bld) Lymphocytes/100 leukocytes in Blood by Automated count 20.5-60.0 [facility] MCH Auto (RBC) [Entitic mass ]on 02-05-2024 MCH (RBC) [Entitic mass] MCH [Entitic mass] by Automated count 26.7-34.0 [facility] MCHC Auto (RBC) [Mass/Vol]on 02-05-2024 MCHC (RBC) [Mass/Vol] MCHC [Mass/volume] by Automated count 29.9-35.2 [facility] MCV Auto (RBC) [Entitic vol] on 02-05-2024 MCV (RBC) [Entitic vol] MCV [Entitic vol ume] by Automated count 81.0-99.0 [facility] Monocytes Auto (Bld) [#/Vol] on 02-05-2024 Monocytes (Bld) [#/Vol] Automated blood monocyte count 0.3-0.8 [facility] Monocytes/100 WBC Auto (Bld) on 02-05-2024 Monocytes/100 WBC (Bld) Automated monocyte % 1. 7-12.0 [facility] Neutrophils Auto (Bld) [#/Vo l]on 02-05-2024 Neutrophils (Bld) [#/Vol] Neutrophils [#/volume] in Blood by Automated count 1.4-6.5 [facility] Neutrophils/100 WBC Auto (Bl d)on 02-05-2024 Neutrophils/100 WBC (Bld) Automated neutrophil % 43.0-75.0 [facility] No Panel Informationon 02-04 Eosinophils # (Auto) 0.1 10 3/uL 0.0-0.7 [facility] Immature Granulocyte # (Auto) 0.01 10 3/uL 0.00-0.03 [facility] Platelet mean volume Auto (B ld) [Entitic vol]on 02-05-2024 Platelet mean volume (Bld) [Entitic vol] Platelet mean volume [Entitic volume] in Blood by Automated count Low 9.5-13.5 [facility] Platelets Auto (Bld) [#/Vol] on 02-05-2024 Platelets (Bld) [#/Vol] Platelets [#/vol ume] in Blood by Automated count 150-450 [facility] RBC Auto (Bld) [#/Vol]on RBC (Bld) [#/Vol] Erythrocytes [#/volu me] in Blood by Automated count 4.20-5.40 [facility] Serum or plasma anion gap de terminationon 02-05-2024 Anion gap [Moles/Vol] Serum or plasma an ion gap determination [facility] Automated epithelial cells c ount in urine sediment (number/area)on 07-27-2023 Epithelial cells Auto (Urine sed) [#/Area] RARE #/LPF NONE/RARE [facility] Automated leukocytes count i n urine sediment (number/area)on 07-27-2023 WBC Auto (Urine sed) [#/Area] NONE SEEN #/HPF 0-2 [facility] Automated urine specific gra vity by refractometryon 07-27-2023 Specific gravity Refractometry automated (U) [Rel density] 1.015 1.005-1.02 5 [facility] Bilirubin Auto test strip (U ) [Mass/Vol]on 07-27-2023 Bilirubin (U) [Mass/Vol] Negative NEGATIVE [facility] Casts typing in urine sedime nt by light microscopyon 07-27-2023 Casts LM Nom (Urine sed) NONE SEEN #/LPF NONE SEEN [facility] Color Auto (U)on 07-27-2023 Color (U) LT. YELLOW YELLOW [facility] Erythrocyte distribution wid th Auto (RBC) [Ratio]on 07-27-2023 Erythrocyte distribution width (RBC) [Ratio] 12.6 % 11.0-15.0 [facility] Estimated glomerular filtrat ion rate (GFR) non- Americanon 07-27-2023 GFR/1.73 sq M.predicted among non-blacks MDRD (S/P/Bld) [Vol rate/Area] 46 mL/min/{1.73_m2} >=60 [facility] Hematocrit Auto (Bld) [Volum e fraction]on 07-27-2023 Hematocrit (Bld) [Volume fraction] 39.4 % 36.0-48.0 [facility] Hemoglobin [Mass/volume] in Bloodon 07-27-2023 Hemoglobin (Bld) [Mass/Vol] 13.5 g/dL 12.0-16.0 [facility] Ketones Auto test strip (U) [Mass/Vol]on 07-27-2023 Ketones (U) [Mass/Vol] Negative NEGATIVE [facility] - Chemistry and C hemistry - challengeon 07-27-2023 Albumin [Mass/Vol] 3.5 g/dL 3.4-5.0 [facility] Calcium [Mass/Vol] 9.3 mg/dL 8.5-10.1 [facility] Chloride [Moles/Vol] 96 mmol/L 98-107 [facility] CO2 [Moles/Vol] 28.4 mmol/L 21.0-32.0 [facility] Creatinine [Mass/Vol] 1.12 mg/dL 0.55-1.02 [facility] GFR/1.73 sq M.predicted MDRD (S/P/Bld) [Vol rate/Area] 56 mL/min/{1.73_m2} >=60 [facility] Glucose [Mass/Vol] 95 mg/dL 74-106 [facility] Magnesium [Mass/Vol] 2.0 mg/dL 1.8-2.4 [facility] Potassium [Moles/Vol] 4.1 mmol/L 3.5-5.1 [facility] Sodium [Moles/Vol] 131 mmol/L 136-145 [facility] Urate [Mass/Vol] 3.4 mg/dL 2.6-6.0 [facility] Urea nitrogen [Mass/Vol] 19.0 mg/dL 7.0-18.0 [facility] Urea nitrogen/Creatinine [Mass ratio] 17.0 mg/mg [facility] Laboratory - Urinalysison Protein (U) [Mass/Vol] 9.6 mg/dL <=11.9 [facility] Leukocytes [#/volume] correc chacho for nucleated erythrocytes in Blood by Automated counon 07-27-2023 WBC corrected for nucl RBC Auto (Bld) [#/Vol] 5.8 10 3/uL 4.0-11.0 [facility] MCH Auto (RBC) [Entitic mass ]on 07-27-2023 MCH (RBC) [Entitic mass] 29.9 pg 26.7-34.0 [facility] MCHC Auto (RBC) [Mass/Vol]on 07-27-2023 MCHC (RBC) [Mass/Vol] 34.3 g/dL 29.9-35.2 [facility] MCV Auto (RBC) [Entitic vol] on 07-27-2023 MCV (RBC) [Entitic vol] 87.2 fL 81.0-99.0 [facility] Mucus LM Ql (Urine sed)on Mucus Ql (Urine sed) NONE SEEN NONE SEEN [facility] No Panel Informationon 07-26 Urine Random Creatinine 100.05 mg/dL 20.0 0-300. 00 [facility] 25-Hydroxy Vitamin D Total 61.8 ng/mL [facility] Comment on above: <20 ng/mL Vit D defi cient20-<30 ng/mL Vit D [id number] ng/mL Vit D sufficient>100 ng/mL Potential Toxicity Parathyroid Hormone (Intact) 16 pg/mL 15-65 [facility] Comment on above: Performed at: [address] [id number] Director: Lux Adorno PhD, Phone: [phone] Phosphorus Level 3.5 mg/dL 2.6-4.7 [facility] Platelet mean volume Auto (B ld) [Entitic vol]on 07-27-2023 Platelet mean volume (Bld) [Entitic vol] 9.1 fL 9.5-13.5 [facility] Platelets Auto (Bld) [#/Vol] on 07-27-2023 Platelets (Bld) [#/Vol] 209 10 3/uL 150-450 [facility] Protein Auto test strip (U) [Mass/Vol]on 07-27-2023 Protein (U) [Mass/Vol] Negative NEG/TRACE [facility] RBC Auto (Bld) [#/Vol]on RBC (Bld) [#/Vol] 4.52 10 6/uL 4.20-5.40 [facility] Serum or plasma anion gap de terminationon 07-27-2023 Anion gap [Moles/Vol] 10.7 mmol/L [facility] Specific gravity Auto test s trip (U) [Rel density]on 07-27-2023 Specific gravity (U) [Rel density] CLEAR CLEAR [facility] Urine bacteria detection by automated methodon 07-27-2023 Bacteria Auto Ql (U) NONE SEEN #/HPF NONE SEEN [facility] Urine glucose measurement by test strip (mass/volume)on 07-27-2023 Glucose Test strip (U) [Mass/Vol] Negative NEGATIVE [facility] Urine hemoglobin detection b y automated test stripon 07-27-2023 Hemoglobin Auto test strip Ql (U) Negative NEGATIVE [facility] Urine nitrite detection by a utomated test stripon 07-27-2023 Nitrite Auto test strip Ql (U) SMALL NEGATIVE [facility] Nitrite Auto test strip Ql (U) Negative NEGATIVE [facility] Urine protein/creatinine rat ioon 07-27-2023 Protein/Creatinine (U) [Ratio] 0.10 [facility] Urine sediment crystal ident ification by light microscopyon 07-27-2023 Crystals LM Nom (Urine sed) None Seen #/HPF None Seen [facility] Urine sediment leukocyte cou nt by microscopy (number/high power field)on 07-27-2023 WBC LM.HPF (Urine sed) [#/Area] 2-5 #/HPF NONE SEEN [facility] Urobilinogen Auto test strip (U) [Mass/Vol]on 07-27-2023 Urobilinogen Qn (U) 1.0 {Carlos'U}/dL 0.2-1.0 [facility] pH Auto test strip (U)on pH (U) 7.0 [pH] 5.0-9.0 [facility] Calcium [Mass/volume] in Ser um or PlasmaOrdered By: Elsa Amin on 01-29-2023 Calcium [Mass/Vol] 9.5 mg/dL 8.6-10.3 [facility] Carbon dioxide, total [Moles /volume] in Serum or PlasmaOrdered By: Elsa Amin on 01-29-2023 CO2 [Moles/Vol] 25.5 mmol/L 21.0-31.0 [facility] Chloride [Moles/volume] in S lorraine or PlasmaOrdered By: Elsa Amin on 01-29-2023 Chloride [Moles/Vol] 96 mmol/L 98-107 [facility] Creatinine [Mass/volume] in Serum or PlasmaOrdered By: Elsa Amin on 01-29-2023 Creatinine [Mass/Vol] 1.18 mg/dL 0.60-1.20 [facility] Glucose [Mass/volume] in Ser um or PlasmaOrdered By: Elsa Amin on 01-29-2023 Glucose [Mass/Vol] 82 mg/dL 70-100 [facility] Comment on above: ADA recommended refe rence rangeRandom Glucose Reference Range is dependent on time and content of last meal. Glucose of more than 200 mg/dL in a nonstressed, ambulatory subject supports the diagnosis of Diabetes Mellitus. No Panel InformationOrdered By: Elsa Amin on 01-29-2023 Estimated GFR (CKD-EPI) 45.829 mL/Min [facility] Creatinine Clearance (Chem 31.19 [facility] Potassium [Moles/volume] in Serum or PlasmaOrdered By: Elsa Amin on 01-29-2023 Potassium [Moles/Vol] 4.0 mmol/L 3.5-5.1 [facility] Serum or plasma anion gap de terminationOrdered By: Elsa Amin on 01-29-2023 Anion gap [Moles/Vol] 12.5 mmol/L 6.0-15.0 [facility] Sodium [Moles/volume] in Ser um or PlasmaOrdered By: Elsa mAin on 01-29-2023 Sodium [Moles/Vol] 130 mmol/L 136-145 [facility] Urea nitrogen [Mass/volume] in Serum or PlasmaOrdered By: Elsa Amin on 01-29-2023 Urea nitrogen [Mass/Vol] 24 mg/dL 10-20 [facility] Activated partial thrombopla stin time (aPTT) in platelet poor plasma by coagulation aOrdered By: Willie Lyon on 01-27-2023 aPTT Coag (PPP) [Time] 31.7 s 25.1-36.5 [facility] Comment on above: A hematocrit value g reater than 55% may lead to inaccurate results in coagulation testing. Patients having hematocrit values >55% require a special collection tube for coagulation studies. Please contact the laboratory at [phone] for redraw instructions. Alanine aminotransferase [En zymatic activity/volume] in Serum or PlasmaOrdered By: Willie Lyon on 01-27-2023 ALT [Catalytic activity/Vol] 9 U/L 7-52 [facility] Albumin [Mass/volume] in Ser um or Plasma by Bromocresol green (BCG) dye binding methoOrdered By: Willie Lyon on 01-27-2023 Albumin BCG dye [Mass/Vol] 4.0 g/dL 3.5-5.7 [facility] Alkaline phosphatase [Enzyma tic activity/volume] in Serum or PlasmaOrdered By: Willie Lyon on 01-27-2023 ALP [Catalytic activity/Vol] 46 U/L 34-104 [facility] Aspartate aminotransferase [ Enzymatic activity/volume] in Serum or PlasmaOrdered By: Willie Lyon on 01-27-2023 AST [Catalytic activity/Vol] 19 U/L 13-39 [facility] Basophils Auto (Bld) [#/Vol] Ordered By: Willie Lyon on 01-27-2023 Basophils (Bld) [#/Vol] 0.1 10*3/uL 0.0-0.2 [facility] Basophils/100 WBC Auto (Bld) Ordered By: Willie Lyon on 01-27-2023 Basophils/100 WBC (Bld) 1.0 % . [facility] Bilirubin.total [Mass/volume ] in Serum or PlasmaOrdered By: Willie Lyon on 01-27-2023 Bilirubin [Mass/Vol] 0.7 mg/dL 0.3-1.0 [facility] Calcium [Mass/volume] in Ser um or PlasmaOrdered By: Willie Lyon on 01-27-2023 Calcium [Mass/Vol] 9.8 mg/dL 8.6-10.3 [facility] Carbon dioxide, total [Moles /volume] in Serum or PlasmaOrdered By: Willie Lyon on 01-27-2023 CO2 [Moles/Vol] 27.4 mmol/L 21.0-31.0 [facility] Chloride [Moles/volume] in S lorraine or PlasmaOrdered By: Willie Lyon on 01-27-2023 Chloride [Moles/Vol] 98 mmol/L 98-107 [facility] Creatine kinase [Enzymatic a ctivity/volume] in Serum or PlasmaOrdered By: Willie Lyon on 01-27-2023 CK [Catalytic activity/Vol] 52 U/L 30-223 [facility] Creatinine [Mass/volume] in Serum or PlasmaOrdered By: Willie Lyon on 01-27-2023 Creatinine [Mass/Vol] 1.45 mg/dL 0.60-1.20 [facility] Eosinophils Auto (Bld) [#/Vo l]Ordered By: Wilile Lyon on 01-27-2023 Eosinophils (Bld) [#/Vol] 0.1 10*3/uL 0.0-0.45 [facility] Eosinophils/100 WBC Auto (Bl d)Ordered By: Willie Lyon on 01-27-2023 Eosinophils/100 WBC (Bld) 1.7 % . [facility] Erythrocyte distribution wid th Auto (RBC) [Ratio]Ordered By: Willie Lyon on 01-27-2023 Erythrocyte distribution width (RBC) [Ratio] 13.7 % 11.9-15.3 [facility] Globulin Calc (S) [Mass/Vol] Ordered By: Willie Lyon on 01-27-2023 Globulin (S) [Mass/Vol] 2.9 g/dL [facility] Glucose [Mass/volume] in Ser um or PlasmaOrdered By: Willie Lyon on 01-27-2023 Glucose [Mass/Vol] 105 mg/dL 70-100 [facility] Comment on above: ADA recommended refe rence rangeRandom Glucose Reference Range is dependent on time and content of last meal. Glucose of more than 200 mg/dL in a nonstressed, ambulatory subject supports the diagnosis of Diabetes Mellitus. Hematocrit Auto (Bld) [Volum e fraction]Ordered By: Willie Lyon on 01-27-2023 Hematocrit (Bld) [Volume fraction] 41.4 % 34.0-46.4 [facility] Hemoglobin [Mass/volume] in BloodOrdered By: Willie Lyon on 01-27-2023 Hemoglobin (Bld) [Mass/Vol] 14.0 g/dL 11.8-15.4 [facility] INR in Platelet poor plasma by Coagulation assayOrdered By: Willie Lyon on 01-27-2023 INR Coag (PPP) [Relative time] 1.0 {INR} [facility] Comment on above: INR Therapeutic Rang [...] RBC Auto (Bld) [#/Vol] 6.9 10*3/uL 3.8-11.6 [facility] Lymphocytes Auto (Bld) [#/Vo l]Ordered By: Willie Lyon on 01-27-2023 Lymphocytes (Bld) [#/Vol] 1.6 10*3/uL 1.00-4.8 [facility] Lymphocytes/100 WBC Auto (Bl d)Ordered By: Willie Lyon on 01-27-2023 Lymphocytes/100 WBC (Bld) 23.7 % . [facility] MCH Auto (RBC) [Entitic mass ]Ordered By: Willie Lyon on 01-27-2023 MCH (RBC) [Entitic mass] 29.7 pg 24.7-34.3 [facility] MCHC Auto (RBC) [Mass/Vol]Or dered By: Willie Lyon on 01-27-2023 MCHC (RBC) [Mass/Vol] 33.9 g/dL 32.0-35.0 [facility] MCV Auto (RBC) [Entitic vol] Ordered By: Willie Lyon on 01-27-2023 MCV (RBC) [Entitic vol] 87.5 fL 80-100 [facility] Magnesium [Mass/volume] in S lorraine or PlasmaOrdered By: Willie Lyon on 01-27-2023 Magnesium [Mass/Vol] 2.0 mg/dL 1.9-2.7 [facility] Monocyte distribution width [Entitic volume] in Blood by AutomatedOrdered By: Willie Lyon on 01-27-2023 Monocyte distribution width Auto (Bld) [Entitic vol] 18.32 % 0.00-20.00 [facility] Monocytes Auto (Bld) [#/Vol] Ordered By: Willie Lyon on 01-27-2023 Monocytes (Bld) [#/Vol] 0.5 10*3/uL 0.0-0.8 [facility] Monocytes/100 WBC Auto (Bld) Ordered By: Willie Lyon on 01-27-2023 Monocytes/100 WBC (Bld) 7.4 % . [facility] Natriuretic peptide B [Mass/ Vol]Ordered By: Willie Lyon on 01-27-2023 Natriuretic peptide B (Bld) [Mass/Vol] 359.0 pg/mL 5-100 [facility] Neutrophils Auto (Bld) [#/Vo l]Ordered By: Willie Lyon on 01-27-2023 Neutrophils (Bld) [#/Vol] 4.6 10*3/uL 1.8-7.7 [facility] Neutrophils/100 WBC Auto (Bl d)Ordered By: Willie Lyon on 01-27-2023 Neutrophils/100 WBC (Bld) 66.2 % . [facility] No Panel InformationOrdered By: Willie Lyon on 01-27-2023 Estimated GFR (CKD-EPI) 35.790 mL/Min [facility] Creatinine Clearance (Chem 25.39 [facility] Nucleated erythrocytes [Pres ence] in Blood by Automated countOrdered By: Willie Lyon on 01-27-2023 Nucleated RBC Auto Ql (Bld) 0.1 /100{WBC} 0-0.5 [facility] Platelet mean volume Auto (B ld) [Entitic vol]Ordered By: Willie Lyon on 01-27-2023 Platelet mean volume (Bld) [Entitic vol] 7.7 fL 6.3-10.7 [facility] Platelets Auto (Bld) [#/Vol] Ordered By: Willie Lyon on 01-27-2023 Platelets (Bld) [#/Vol] 281 10*3/uL 150-450 [facility] Potassium [Moles/volume] in Serum or PlasmaOrdered By: Willie Lyon on 01-27-2023 Potassium [Moles/Vol] 4.6 mmol/L 3.5-5.1 [facility] Protein [Mass/volume] in Ser um or PlasmaOrdered By: Willie Lyon on 01-27-2023 Protein [Mass/Vol] 6.9 g/dL 6.4-8.9 [facility] Prothrombin time (PT)Ordered By: Willie Lyon on 01-27-2023 PT Coag (PPP) [Time] 12.2 s 9.0-12.9 [facility] Comment on above: A hematocrit value g reater than 55% may lead to inaccurate results in coagulation testing. Patients having hematocrit values >55% require a special collection tube for coagulation studies. Please contact the laboratory at [phone] for redraw instructions. RBC Auto (Bld) [#/Vol]Ordere d By: Willie Lyon on 01-27-2023 RBC (Bld) [#/Vol] 4.73 10*6/uL 3.60-5.00 [facility] Serum or plasma albumin/glob ulin mass ratioOrdered By: Willie Lyon on 01-27-2023 Albumin/Globulin [Mass ratio] 1.4 {ratio} [facility] Serum or plasma anion gap de terminationOrdered By: Willie Lyon on 01-27-2023 Anion gap [Moles/Vol] 11.2 mmol/L 6.0-15.0 [facility] Sodium [Moles/volume] in Ser um or PlasmaOrdered By: Willie Lyon on 01-27-2023 Sodium [Moles/Vol] 132 mmol/L 136-145 [facility] Thyrotropin [Units/volume] i n Serum or PlasmaOrdered By: Willie Lyon on 01-27-2023 TSH Qn 0.18 m[IU]/L 0.45-5.33 [facility] Troponin I.cardiac [Mass/vol ume] in Serum or Plasma by Detection limit <= 0.01 ng/Ordered By: Elsa Amin on 01-27-2023 Troponin I.cardiac DL <= 0.01 ng/mL [Mass/Vol] 29.5 pg/mL 0.0-15.0 [facility] Troponin I.cardiac [Mass/vol ume] in Serum or Plasma by Detection limit <= 0.01 ng/Ordered By: Willie Lyon on 01-27-2023 Troponin I.cardiac DL <= 0.01 ng/mL [Mass/Vol] 47.3 pg/mL 0.0-15.0 [facility] Urea nitrogen [Mass/volume] in Serum or PlasmaOrdered By: Willie Lyon on 01-27-2023 Urea nitrogen [Mass/Vol] 30 mg/dL 7-25 [facility] WBC Auto (Bld) [#/Vol]Ordere d By: Willie Lyon on 01-27-2023 WBC (Bld) [#/Vol] 6.9 10*3/uL 3.8-11.6 [facility] PTH INTACTon 06-04-2022 PTH, Intact 10 pg/mL Critically low 15-65 [facility] Comment on above: Performed By: #### P THINT #### [facility] [address] [place] [address] Dr. Dario Gil FREE T4on 06-03-2022 Free T4 [Mass/Vol] 1.03 ng/dL Normal 0.76-1.46 [facility] Comment on above: Performed By: #### H H #### [facility] [address] [place] [address] Dr. Dario Gil HEMOGRAM AND PLATELon 2022 Hematocrit (Bld) [Volume fraction] 39.9 % Normal 36.0-48.0 [facility] Comment on above: Performed By: #### H H #### [facility] [address] [place] [address] Dr. Dario Gil Hemoglobin (Bld) [Mass/Vol] 13.9 g/dL Normal 12.0-16.0 [facility] Comment on above: Performed By: #### H H #### [facility] [address] [place] [address] Dr. Dario Gil MCH (RBC) [Entitic mass] 30.6 pg Normal 26.7-34.0 [facility] Comment on above: Performed By: #### H H #### [facility] [address] [place] [address] Dr. Dario Gil MCHC (RBC) [Mass/Vol] 34.8 g/dL Normal 29.9-35.2 [facility] Comment on above: Performed By: #### H H #### [facility] [address] [place] [address] Dr. Dario Gil MCV (RBC) [Entitic vol] 87.9 fL Normal 81.0-99.0 [facility] Comment on above: Performed By: #### H H #### [facility] [address] [place] [address] Dr. Dario Gil PLT 232 103/ul Normal 150-[address] [facility] Comment on above: Performed By: #### H H #### [facility] [address] [place] [address] Dr. Dario Gil RBC 4.54 106/ul Normal 4.20-5.[address] [facility] Comment on above: Performed By: #### H H #### [facility] [address] [place] [address] Dr. Dario Gil WBC 5.8 103/ul Normal 4.0-11.[address] [facility] Comment on above: Performed By: #### H H #### [facility] [address] [place] [address] Dr. Dario Gil MAGNESIUMon 06-03-2022 Magnesium [Mass/Vol] 1.8 mg/dL Normal 1.8-2.[address] [facility] Comment on above: Performed By: #### M Humble, URIC, RENAL #### [address] [facility] [address] [place] [address] Dr. Dario Gil RENAL FUNCTION PANELon 06-03 Albumin [Mass/Vol] 4.0 g/dL Normal 3.4-5.0 [facility] Comment on above: Performed By: #### M Humble, URIC, RENAL #### [facility] [address] [place] [address] Dr. Dario Gil Calcium [Mass/Vol] 9.7 mg/dL Normal 8.5-10.[address] [facility] Comment on above: Performed By: #### M Humble, URIC, RENAL #### [facility] [address] [place] [address] Dr. Dario Gil Chloride [Moles/Vol] 98 mmol/L Normal 98-[address] [facility] Comment on above: Performed By: #### M G, URIC, RENAL #### [facility] [address] [place] [address] Dr. Dario Gil CO2 [Moles/Vol] 29.6 mmol/L Normal 21.0-32.[address] [facility] Comment on above: Performed By: #### M G, URIC, RENAL #### [facility] [address] [place] [address] Dr. Dario Gil Creatinine [Mass/Vol] 1.37 mg/dL Critically high 0.55-1.[address] [facility] Comment on above: Performed By: #### M G, URIC, RENAL #### [facility] [address] [address] [address] Dario Gil EGFR-AF AUSTRIAN 45 mL/min/1.73m2 Critically low >=60 [facility] Comment on above: Performed By: #### M G, URIC, RENAL #### [facility] [address] [place] [address] Dr. Dario Gil EGFR-NON AF AUSTRIAN 37 mL/min/1.73m2 Critically low >=60 [facility] Comment on above: Performed By: #### M G, URIC, RENAL #### [facility] [address] [place] [address] Dr. Dario Gil Glucose [Mass/Vol] 99 mg/dL Normal 74-106 [facility] Comment on above: Performed By: #### M G, URIC, RENAL #### [facility] [address] [place] [address] Dr. Dario Gil Phosphate [Mass/Vol] 3.5 mg/dL Normal 2.6-4.7 [facility] Comment on above: Performed By: #### M G, URIC, RENAL #### [facility] [address] [address] [address] Dario Gil Potassium [Moles/Vol] 4.5 mmol/L Normal 3.5-5.1 [facility] Comment on above: Performed By: #### M G, URIC, RENAL #### [facility] [address] [address] [address] Dario Gil Sodium [Moles/Vol] 134 mmol/L Critically low 136-145 [facility] Comment on above: Performed By: #### M G, URIC, RENAL #### [facility] [address] [address] [address] Dario Gil Urea nitrogen [Mass/Vol] 26.0 mg/dL Critically high 7.0-18.0 [facility] Comment on above: Performed By: #### M G, URIC, RENAL #### [facility] [address] [address] [address] Dario Gil TSHon 06-03-2022 TSH 8.041 uIU/mL Critically high 0.358-3.[address] [facility] Comment on above: Performed By: #### T SH #### [facility] [address] [place] [address] Dr. Dario Gil UA RANDOM W/MICROSCOPICon BACTERIA NONE SEEN Normal NONE SEEN [facility] Comment on above: Performed By: #### H H #### [facility] [address] [place] [address] Dr. Dario Gil Bilirubin Ql (U) Negative Normal NEGATIVE [facility] Comment on above: Performed By: #### H H #### [facility] [address] [place] [address] Dr. Dario Gil CAST NONE SEEN Normal NONE SEEN [facility] Comment on above: Performed By: #### H H #### [facility] [address] [place] [address] Dr. Dario Gil Clarity (U) CLEAR Normal CLEAR [facility] Comment on above: Performed By: #### H H #### [facility] [address] [place] [address] Dr. Dario Gil Color (U) LT. YELLOW Normal YELLOW [facility] Comment on above: Performed By: #### H H #### [facility] [address] [place] [address] Dr. Dario Gli Crystals LM Nom (Urine sed) NONE SEEN Normal NONE SEEN [facility] Comment on above: Performed By: #### H H #### [facility] [address] [place] [address] Dr. Dario Gil Epithelial cells LM Ql (Urine sed) FEW Abnormal NONE SEEN /RARE [facility] Comment on above: Performed By: #### H H #### [facility] [address] [place] [address] Dr. Dario Gil Glucose Ql (U) Negative Normal NEGATIVE [facility] Comment on above: Performed By: #### H H #### [facility] [address] [place] [address] Dr. Dario Gil Hemoglobin Ql (U) Negative Normal NEGATIVE [facility] Comment on above: Performed By: #### H H #### [facility] [address] [place] [address] Dr. Dario Gil Ketones Ql (U) Negative Normal NEGATIVE [facility] Comment on above: Performed By: #### H H #### [facility] [address] [place] [address] Dr. Dario Gil LEUKOCYTES TRACE Abnormal NEGATIVE [facility] Comment on above: Performed By: #### H H #### [facility] [address] [place] [address] Dr. Dario Gil MUCOUS NONE SEEN Normal NONE SEEN [facility] Comment on above: Performed By: #### H H #### [facility] [address] [place] [address] Dr. Dario Gil Nitrite Ql (U) Negative Normal NEGATIVE [facility] Comment on above: Performed By: #### H H #### [facility] [address] [place] [address] Dr. Dario Gil pH (U) 5.5 [pH] Normal 5-9 [facility] Comment on above: Performed By: #### H H #### [facility] [address] [place] [address] Dr. Dario Gil RBC 0-2 Normal 0-[address] [facility] Comment on above: Performed By: #### H H #### [facility] [address] [place] [address] Dr. Dario Gil SPEC GRAVITY 1.010 Normal 1.005-<=1. [address] [facility] Comment on above: Performed By: #### H H #### [facility] [address] [place] [address] Dr. Dario Gil UA PROTEIN Negative Normal NEGATIVE/ TRACE [facility] Comment on above: Performed By: #### H H #### [facility] [address] [place] [address] Dr. Dario Gil Urobilinogen Qn (U) 0.2 {Carlos'U}/dL Normal 0.2 - 1. 0 [facility] Comment on above: Performed By: #### H H #### [facility] [address] [place] [address] Dr. Dario Gil WBC 0-2 Abnormal NONE SEEN [facility] Comment on above: Performed By: #### H H #### [facility] [address] [place] [address] Dr. Dario Gil URIC ACID SERUMon 06-03-2022 Urate [Mass/Vol] 5.1 mg/dL Normal 2.6-6.0 [facility] Comment on above: Performed By: #### M G, URIC, RENAL #### [facility] [address] [place] [address] Dr. Dario Gil URINE T PROTEIN CREAT RATIOo n 06-03-2022 Protein (U) [Mass/Vol] 5.5 mg/dL Normal <=12.[address] [facility] Comment on above: Performed By: #### H H #### [facility] [address] [place] [address] Dr. Dario Gil UR PROT CREAT RAT 0.07 Normal [facility] Comment on above: Performed By: #### H H #### [facility] [address] [place] [address] Dr. Dario Gil URINE CREAT 77.51 mg/dL Normal 20.00-300. 00 [facility] Comment on above: Performed By: #### H H #### [facility] [address] [place] [address] Dr. Dario Gil VITAMIN D 25 OHon 06-03-2022 VIT D 25-OH 58.1 ng/mL Normal [facility] Comment on above: Performed By: #### H H #### [facility] [address] [place] [address] Dr. Dario Gil VIT D RANGES SEE BELOW Normal [facility] Comment on above: Result Comment: <20 ng/mL Vit D deficient 20 - <30 ng/mL Vit D insufficient 30 - 100 ng/mL Vit D sufficient >100 ng/mL Potential Toxicity Performed By: #### H H #### [facility] [address] [place] [address] Dr. Dario Gil Office Visit (Cardiology)on 03-18-2022 [...] MOUTH TWICE A DAY NEEDED Allergies Medication [id number]-6 PTWK Adverse Reaction; Shortness of breath;; Recorded [...] cups daily Former smoker (V15.82) (Z87.891) quit 1966 No alcohol use No illicit drug use Review of Systems Constitutional: not feeling tired. Cardiovascular: no chest pain, no palpitations and no lower extremity edema. Respiratory: no shortness of breath during exertion, no orthopnea and no PND. Vitals Vital Signs Recorded: [id number] 11:35AMRecorded: [id number] 11:23AM Kmbywowb668, Mxpkraol165, LUE, Sitting Osrypsquu31, Fsnwdvbj27, LUE, Sitting Heart Rate60, L Radial Height5 ft 4 in Btfaxm490 lb BMI Trfnxuvzjh81.2 kg/m2 BSA Calculated1.69 Tobacco Useb) No Falls [...] and normal mood and affect . Signatures Meera Avalos MSN, ELECTRIC METER INSPECTOR-JUNIOR NETWORK ADMINISTRATOR, PMHNP-BC [facility] [employer] Please excuse any errors in grammar or translation related to this dictation. Voice recognition software was utilized to prepare this document. Electronically (more content not included)... Normal [employer] Tobacco Screening.on 022 Fall risk assessment a) No falls within the last year -[facility] [employer] DO Work Phone: Tobacco use status CPHS b) No M P-[facility] [employer] DO Work Phone: PROF CHEM 8 (BAS METB)on Anion gap [Moles/Vol] 5.7 mmol/L Normal [facility] Comment on above: Performed By: #### H H #### [facility] [address] [address] [address] Dario Gil Calcium [Mass/Vol] 9.3 mg/dL Normal 8.5-10.1 [facility] Comment on above: Performed By: #### H H #### [facility] [address] [address] [address] Dario Gil Chloride [Moles/Vol] 97 mmol/L Critically low 98-[address] [facility] Comment on above: Performed By: #### H H #### [facility] [address] [address] [address] Dario Gil CO2 [Moles/Vol] 31.9 mmol/L Normal 21.0-32.0 [facility] Comment on above: Performed By: #### H H #### [facility] [address] [address] [address] Dario Gil Creatinine [Mass/Vol] 1.34 mg/dL Critically high 0.55-1.02 [facility] Comment on above: Performed By: #### H H #### [facility] [address] [address] [address] Dario Gil EGFR-AF AUSTRIAN 46 mL/min/1.73m2 Critically low >=60 [facility] Comment on above: Performed By: #### H H #### [facility] [address] [address] [address] Dario Gil EGFR-NON AF AUSTRIAN 38 mL/min/1.73m2 Critically low >=60 [facility] Comment on above: Performed By: #### H H #### [facility] [address] [address] [address] Dario Gil Glucose [Mass/Vol] 92 mg/dL Normal 74-106 [facility] Comment on above: Performed By: #### H H #### [facility] [address] [address] [address] Dario Gil Potassium [Moles/Vol] 4.6 mmol/L Normal 3.5-5.1 [facility] Comment on above: Performed By: #### H H #### [facility] [address] [address] [address] Dario Gil Sodium [Moles/Vol] 130 mmol/L Critically low 136-145 [facility] Comment on above: Performed By: #### H H #### [facility] [address] [address] [address] Dario Gil Urea nitrogen [Mass/Vol] 28.0 mg/dL Critically high 7.0-18.0 [facility] Comment on above: Performed By: #### H H #### [facility] [address] [address] [address] Dario Gil Urea nitrogen/Creatinine [Mass ratio] 20.9 mg/mg Normal [facility] Comment on above: Performed By: #### H H #### [facility] [address] [address] [address] Dario Gil Office Visit (Cardiology)on 01-15-2022 [...] MOUTH TWICE A DAY NEEDED Allergies Medication Yiyhjrvd-ZTH-1 PTWK Adverse Reaction; Shortness of breath;; Recorded [...] cups daily Former smoker (V15.82) (Z87.891) quit 1966 No alcohol use No illicit drug use [...] Signs Patient: JANELLE BURT; : 1940; Recorded: [id number] 11:16AMRecorded: [id number] 10:55AMRecorded: [id number] 10:48AM [id number], LUE, Ihoptdl020, RUE, Sitting Fjxqeyygt1276, LUE, Nggnzut65, RUE, Sitting Heart Rate60, R Radial Height5 ft 4 in Rlming995 lb BMI Skxetnouxl21.34 (more content not included)... Normal [employer] Tobacco Screening.on 022 Adult depression screening assessment No [facility] [employer] DO Work Phone: Fall risk assessment a) No falls within the last year [facility] [employer] DO Work Phone: Tobacco use status CPHS b) No M [facility] [employer] DO Work Phone: PTH INTACTon 12-05-2021 PTH, Intact 14 pg/mL Critically low 15-65 [facility] Comment on above: Performed By: #### P THINT #### [facility] [address] [address] [address] Dario Gil VIT D 25-OH LABCORPon 2021 Vitamin D, 25-Hydroxy 22.8 ng/mL Critically low 30.0-100.[address] [facility] Comment on above: Result Comment: Eliza min D deficiency has been defined by the [place] of Medicine and an Endocrine Society practice guideline as a level of serum 25-OH vitamin D less than 20 ng/mL (1,2). The Endocrine Society went on to further define vitamin D insufficiency as a level between 21 and 29 ng/mL (2). 1. IOM ([place] of Medicine). 2010. Dietary reference intakes for calcium and D. [place]: The National Academies Press. 2. Mark WEEMS, Dustin CENTENO, Coni WARD, et al. Evaluation, treatment, and prevention of vitamin D deficiency: an Endocrine Society clinical practice guideline. JCEM. 2010; 96(7):1911-30. Performed By: #### V ITADLC #### [facility] [address] [place] [address] Dr. Dario Gil HEMOGRAM AND PLATELon 2021 Hematocrit (Bld) [Volume fraction] 44.0 % Normal 36.0-48.0 [facility] Comment on above: Performed By: #### H H #### [facility] [address] [place] [address] Dr. Dario Gil Hemoglobin (Bld) [Mass/Vol] 14.9 g/dL Normal 12.0-16.0 [facility] Comment on above: Performed By: #### H H #### [facility] [address] [place] [address] Dr. Dario Gil MCH (RBC) [Entitic mass] 29.7 pg Normal 26.7-34.0 [facility] Comment on above: Performed By: #### H H #### [facility] [address] [place] [address] Dr. Dario Gil MCHC (RBC) [Mass/Vol] 33.9 g/dL Normal 29.9-35.2 [facility] Comment on above: Performed By: #### H H #### [facility] [address] [place] [address] Dr. Dario Gil MCV (RBC) [Entitic vol] 87.8 fL Normal 81.0-99.0 [facility] Comment on above: Performed By: #### H H #### [facility] [address] [place] [address] Dr. Dario Gil PLT 245 103/ul Normal 150-[address] [facility] Comment on above: Performed By: #### H H #### [facility] [address] [place] [address] Dr. Dario Gil RBC 5.01 106/ul Normal 4.20-5.40 [facility] Comment on above: Performed By: #### H H #### [facility] [address] [address] [address] Dario Gil WBC 5.8 103/ul Normal 4.0-11.0 [facility] Comment on above: Performed By: #### H H #### [facility] [address] [address] [address] Dario Gil MAGNESIUMon 12-04-2021 Magnesium [Mass/Vol] 1.9 mg/dL Normal 1.8-2.[address] [facility] Comment on above: Performed By: #### H H #### [facility] [address] [place] [address] Dr. Dario Gil RENAL FUNCTION PANELon 12-04 Albumin [Mass/Vol] 3.9 g/dL Normal 3.4-5.0 [facility] Comment on above: Performed By: #### H H #### [facility] [address] [place] [address] Dr. Dario Gil Calcium [Mass/Vol] 9.4 mg/dL Normal 8.5-10.[address] [facility] Comment on above: Performed By: #### H H #### [facility] [address] [place] [address] Dr. Dario Gil Chloride [Moles/Vol] 96 mmol/L Critically low 98-[address] [facility] Comment on above: Performed By: #### H H #### [facility] [address] [place] [address] Dr. Dario Gil CO2 [Moles/Vol] 30.8 mmol/L Normal 21.0-32.[address] [facility] Comment on above: Performed By: #### H H #### [facility] [address] [place] [address] Dr. Dario Gil Creatinine [Mass/Vol] 1.25 mg/dL Critically high 0.55-1.[address] [facility] Comment on above: Performed By: #### H H #### [facility] [address] [place] [address] Dr. Dario Gil EGFR-AF AUSTRIAN 50 mL/min/1.73m2 Critically low >=[address] [facility] Comment on above: Performed By: #### H H #### [facility] [address] [address] [address] Dario Gil EGFR-NON AF AUSTRIAN 41 mL/min/1.73m2 Critically low >=60 [facility] Comment on above: Performed By: #### H H #### [facility] [address] [address] [address] Dario Gil Glucose [Mass/Vol] 93 mg/dL Normal 74-106 [facility] Comment on above: Performed By: #### H H #### [facility] [address] [address] [address] Dario Gil Phosphate [Mass/Vol] 3.4 mg/dL Normal 2.6-4.7 [facility] Comment on above: Performed By: #### H H #### [facility] [address] [address] [address] Dario Gil Potassium [Moles/Vol] 4.2 mmol/L Normal 3.5-5.1 [facility] Comment on above: Performed By: #### H H #### [facility] [address] [address] [address] Dario Gil Sodium [Moles/Vol] 133 mmol/L Critically low 136-145 [facility] Comment on above: Performed By: #### H H #### [facility] [address] [address] [address] Dario Gil Urea nitrogen [Mass/Vol] 20.0 mg/dL Critically high 7.0-18.0 [facility] Comment on above: Performed By: #### H H #### [facility] [address] [address] [address] Dario iGl UA RANDOM W/MICROSCOPICon BACTERIA NONE SEEN Normal NONE SEEN [facility] Comment on above: Performed By: #### U AMIC #### [facility] [address] [address] [address] Dario Gil Bilirubin Ql (U) Negative Normal NEGATIVE [facility] Comment on above: Performed By: #### U AMIC #### [facility] [address] [address] [address] Dario Gil CAST NONE SEEN Normal NONE SEEN [facility] Comment on above: Performed By: #### U AMIC #### [facility] [address] [address] [address] Dario Gil Clarity (U) CLEAR Normal CLEAR [facility] Comment on above: Performed By: #### U AMIC #### [facility] [address] [address] [address] Dario Gil Color (U) LT. YELLOW Normal YELLOW [facility] Comment on above: Performed By: #### U AMIC #### [facility] [address] [place] [address] Dr. Dario Gil Crystals LM Nom (Urine sed) NONE SEEN Normal NONE SEEN [facility] Comment on above: Performed By: #### U AMIC #### [facility] [address] [place] [address] Dr. Dario Gil Epithelial cells LM Ql (Urine sed) FEW Abnormal NONE SEEN /RARE [facility] Comment on above: Performed By: #### U AMIC #### [facility] [address] [place] [address] Dr. Dario Gil Glucose Ql (U) Negative Normal NEGATIVE [facility] Comment on above: Performed By: #### U AMIC #### [facility] [address] [place] [address] Dr. Dario Gil Hemoglobin Ql (U) Negative Normal NEGATIVE [facility] Comment on above: Performed By: #### U AMIC #### [facility] [address] [place] [address] Dr. Dario Gil Ketones Ql (U) Negative Normal NEGATIVE [facility] Comment on above: Performed By: #### U AMIC #### [facility] [address] [place] [address] Dr. Dario Gil LEUKOCYTES SMALL Abnormal NEGATIVE [facility] Comment on above: Performed By: #### U AMIC #### [facility] [address] [place] [address] Dr. Dario Gil MUCOUS NONE SEEN Normal NONE SEEN [facility] Comment on above: Performed By: #### U AMIC #### [facility] [address] [address] [address] Dario Gil Nitrite Ql (U) Negative Normal NEGATIVE [facility] Comment on above: Performed By: #### U AMIC #### [facility] [address] [place] [address] Dr. Dario Gil pH (U) 7.0 [pH] Normal 5-[address] [facility] Comment on above: Performed By: #### U AMIC #### [facility] [address] [place] [address] Dr. Dario Gil RBC 0-2 Normal 0-[address] [facility] Comment on above: Performed By: #### U AMIC #### [facility] [address] [place] [address] Dr. Dario Gil SPEC GRAVITY 1.010 Normal 1.005-<=1. 025 [facility] Comment on above: Performed By: #### U AMIC #### [facility] [address] [place] [address] Dr. Dario Gil UA PROTEIN Negative Normal NEGATIVE/ TRACE [facility] Comment on above: Performed By: #### U AMIC #### [facility] [address] [place] [address] Dr. Dario Gil Urobilinogen Qn (U) 0.2 {Carlos'U}/dL Normal 0.2 - 1. [address] [facility] Comment on above: Performed By: #### U AMIC #### [facility] [address] [place] [address] Dr. Dario Gil WBC 0-2 Abnormal NONE SEEN [facility] Comment on above: Performed By: #### U AMIC #### [facility] [address] [place] [address] Dr. Dario Gil URIC ACID SERUMon 12-04-2021 Urate [Mass/Vol] 5.3 mg/dL Normal 2.6-6.0 [facility] Comment on above: Performed By: #### H H #### [facility] [address] [address] [address] Dario Gil URINE T PROTEIN CREAT RATIOo n 12-04-2021 Protein (U) [Mass/Vol] 6.0 mg/dL Normal <=12.[address] [facility] Comment on above: Performed By: #### H H #### [facility] [address] [address] [address] Dario Gil UR PROT CREAT RAT 0.06 Normal [facility] Comment on above: Performed By: #### H H #### [facility] [address] [address] [address] Dario Gil URINE CREAT 96.21 mg/dL Normal 20.00-300. 00 [facility] Comment on above: Performed By: #### H H #### [facility] [address] [place] [address] Dr. Dario Gil Tobacco Screening.on 021 Fall risk assessment a) No falls within the last year [facility] [employer] DO Work Phone: Tobacco use status CPHS b) No M [facility] [employer] DO Work Phone: Vital Signs Date Time Vital Sign Value Performing Clinician Facility 01-03-2025 13:15-0400 Body height 162.56 cm Antonino Gustafson MD Work Phone: [facility] 01-03-2025 13:15-0400 Body mass index (BMI) [Ratio] 22.6 kg/m2 Antonino Gustafson MD Work Phone: [facility] 01-03-2025 13:15-0400 Body weight 59.87 kg Antonino Gustafson MD Work Phone: [facility] 01-03-2025 13:15-0400 Diastolic blood pressure 78 mm[Hg] Antonino Gustafson MD Work Phone: [facility] 01-03-2025 13:15-0400 Heart rate 58 /min Antonino Gustafson MD Work Phone: [facility] 01-03-2025 13:15-0400 SaO2% (BldA) [Mass fraction] 98 % Antonino Gustafson MD Work Phone: [facility] 01-03-2025 13:15-0400 Systolic blood pressure 122 mm[Hg] Antonino Gustafson MD Work Phone: [facility] 11-21-2024 10:59-0400 Diastolic blood pressure 74 mm[Hg] Michael Ramos DO Work Phone: [facility] 11-21-2024 10:59-0400 Systolic blood pressure 132 mm[Hg] Michael Ramos DO Work Phone: [facility] 11-21-2024 10:56-0400 Body height 162.6 cm Michael Ramos DO Work Phone: [facility] 11-21-2024 10:56-0400 Body mass index (BMI) [Ratio] 22.31 kg/m2 Michael Ramos DO Work Phone: [facility] 11-21-2024 10:56-0400 Body weight 58.97 kg Michael Richard DO Work Phone: [facility] 11-21-2024 10:56-0400 Heart rate 52 /min Michael Ramos DO Work Phone: [facility] 09-27-2024 11:20-0400 Diastolic blood pressure 90 mm[Hg] Michael Ramos DO Work Phone: [facility] 09-27-2024 11:20-0400 Systolic blood pressure 170 mm[Hg] Michael Ramos DO Work Phone: [facility] 09-27-2024 10:52-0400 Body height 162.6 cm Michael Ramos DO Work Phone: [facility] 09-27-2024 10:52-0400 Body mass index (BMI) [Ratio] 23.14 kg/m2 Michael Ramos DO Work Phone: [facility] 09-27-2024 10:52-0400 Body weight 61.15 kg Michael Ramos DO Work Phone: [facility] 09-27-2024 10:52-0400 Heart rate 68 /min Michael Ramos DO Work Phone: [facility] 09-25-2024 14:34-0400 Body height 162.56 cm Antonino Gustafson MD Work Phone: [facility] 09-25-2024 14:34-0400 Body mass index (BMI) [Ratio] 22.7 kg/m2 Antonino Gustafson MD Work Phone: [facility] 09-25-2024 14:34-0400 Body weight 60.1 kg Antonino Gustafson MD Work Phone: [facility] 09-25-2024 14:34-0400 Diastolic blood pressure 81 mm[Hg] Antonino Gustafson MD Work Phone: [facility] 09-25-2024 14:34-0400 Heart rate 61 /min Antonino Gustafson MD Work Phone: [facility] 09-25-2024 14:34-0400 Systolic blood pressure 190 mm[Hg] Antonino Gustafson MD Work Phone: [facility] 09-20-2024 10:37-0400 Body height 162.56 cm Antonino Gustafson MD Work Phone: [facility] 09-20-2024 10:37-0400 Body mass index (BMI) [Ratio] 23.1 kg/m2 Antonino Gustafson MD Work Phone: [facility] 09-20-2024 10:37-0400 Body weight 61.24 kg Antonino Gustafson MD Work Phone: [facility] 09-20-2024 10:37-0400 Diastolic blood pressure 86 mm[Hg] Antonino Gustafson MD Work Phone: [facility] 09-20-2024 10:37-0400 Heart rate 64 /min Antonino Gustafson MD Work Phone: [facility] 09-20-2024 10:37-0400 SaO2% (BldA) [Mass fraction] 97 % Antonino Gustafson MD Work Phone: [facility] 09-20-2024 10:37-0400 Systolic blood pressure 148 mm[Hg] Antonino Gustafson MD Work Phone: [facility] 08-29-2024 14:22-0400 Body height 162.56 cm Antonino Gustafson MD Work Phone: [facility] 08-29-2024 14:22-0400 Body mass index (BMI) [Ratio] 23.1 kg/m2 Antonino Gustafson MD Work Phone: [facility] 08-29-2024 14:22-0400 Body weight 61.23 kg Antonino Gustafson MD Work Phone: [facility] 08-29-2024 14:22-0400 Diastolic blood pressure 73 mm[Hg] Antonino Gustafson MD Work Phone: [facility] 08-29-2024 14:22-0400 Heart rate 64 /min Antonino Gustafson MD Work Phone: [facility] 08-29-2024 14:22-0400 Respiratory rate 12 /min Antonino Gustafson MD Work Phone: [facility] 08-29-2024 14:22-0400 SaO2% (BldA) [Mass fraction] 97 % Antonino Gustafson MD Work Phone: [facility] 08-29-2024 14:22-0400 Systolic blood pressure 158 mm[Hg] Antonino Gustafson MD Work Phone: [facility] 08-07-2024 14:05-0400 Body height 162.56 cm Antonino Gustafson MD Work Phone: [facility] 08-07-2024 14:05-0400 Body mass index (BMI) [Ratio] 22.6 kg/m2 Antonino Gustafson MD Work Phone: [facility] 08-07-2024 14:05-0400 Body weight 59.87 kg Antonino Gustafson MD Work Phone: [facility] 08-07-2024 14:05-0400 Diastolic blood pressure 68 mm[Hg] Antonino Gustafson MD Work Phone: [facility] 08-07-2024 14:05-0400 Heart rate 66 /min Antonino Gustafson MD Work Phone: [facility] 08-07-2024 14:05-0400 Systolic blood pressure 186 mm[Hg] Antonino Gustafson MD Work Phone: [facility] 08-02-2024 04:35-0400 Body temperature 97.3 [degF] Antonino Gustafson MD Work Phone: [facility] 08-02-2024 04:35-0400 Diastolic blood pressure 79 mm[Hg] Antonino Gustafson MD Work Phone: [facility] 08-02-2024 04:35-0400 Heart rate 60 /min Antonino Gustafson MD Work Phone: [facility] 08-02-2024 04:35-0400 Respiratory rate 15 /min Antonino Gustafson MD Work Phone: [facility] 08-02-2024 04:35-0400 SaO2% (BldA) [Mass fraction] 97 % Antonino Gustafson MD Work Phone: [facility] 08-02-2024 04:35-0400 Systolic blood pressure 182 mm[Hg] Antonino Gustafson MD Work Phone: [facility] 08-01-2024 12:25-0400 Body height 162.56 cm Antonino Gustafson MD Work Phone: [facility] 07-30-2024 04:54-0400 Body weight 60.2 kg Antonino Gustafson MD Work Phone: [facility] 07-25-2024 12:00-0400 Body temperature 98.1 [degF] Antonino Gustafson MD Work Phone: [facility] 07-25-2024 12:00-0400 Diastolic blood pressure 65 mm[Hg] Antonino Gustafson MD Work Phone: [facility] 07-25-2024 12:00-0400 Heart rate 63 /min Antonino Gustafson MD Work Phone: [facility] 07-25-2024 12:00-0400 Respiratory rate 24 /min Antonino Gustafson MD Work Phone: [facility] 07-25-2024 12:00-0400 SaO2% (BldA) [Mass fraction] 96 % Antonino Gustafson MD Work Phone: [facility] 07-25-2024 12:00-0400 Systolic blood pressure 138 mm[Hg] Antonino Gustafson MD Work Phone: [facility] 07-25-2024 06:00-0400 Body weight 64.1 kg Antonino Gustafson MD Work Phone: [facility] 07-23-2024 16:01-0400 Body height 160.02 cm Antonino Gustafson MD Work Phone: [facility] 07-23-2024 08:00-0400 Inhaled oxygen flow rate 2 L/min Antonino Gustafson MD Work Phone: [facility] 07-23-2024 01:21-0400 Diastolic blood pressure 63 mm[Hg] Antonino Gustafson MD Work Phone: [facility] 07-23-2024 01:21-0400 Heart rate 95 /min Antonino Gustafson MD Work Phone: [facility] 07-23-2024 01:21-0400 Inhaled oxygen flow rate 2 L/min Antonino Gustafson MD Work Phone: [facility] 07-23-2024 01:21-0400 Respiratory rate 18 /min Antonino Gustafson MD Work Phone: [facility] 07-23-2024 01:21-0400 SaO2% (BldA) [Mass fraction] 99 % Antonino Gustafson MD Work Phone: [facility] 07-23-2024 01:21-0400 Systolic blood pressure 158 mm[Hg] Antonino Gustafson MD Work Phone: [facility] 07-22-2024 21:12-0400 Body temperature 98.7 [degF] Antonino Gustafson MD Work Phone: [facility] 07-22-2024 21:090400 Body height 165.1 cm Antonino Gustafson MD Work Phone: [facility] 07-22-2024 21:090400 Body weight 61.5 kg Antonino Gustafson MD Work Phone: [facility] 05-25-2024 10:28-0500 Diastolic blood pressure 82 mm[Hg] Michael Ramos DO Work Phone: [facility] 05-25-2024 10:28-0500 Systolic blood pressure 148 mm[Hg] Michael Ramos DO Work Phone: [facility] 05-25-2024 10:250500 Body height 162.6 cm Michael Ramos DO Work Phone: [facility] 05-25-2024 10:25-0500 Body mass index (BMI) [Ratio] 22.8 kg/m2 Michael Ramos DO Work Phone: [facility] 05-25-2024 10:250500 Body weight 60.24 kg Michael Ramos DO Work Phone: [facility] 05-25-2024 10:25-0500 Heart rate 60 /min Michael Ramos DO Work Phone: [facility] 05-22-2024 13:36-0500 Body height 162.[address] [facility] 05-22-2024 13:36-0500 Body mass index (BMI) [Ratio] 22 kg/m2 [facility] 05-22-2024 13:36-0500 Body weight 58.[address] [facility] 05-22-2024 13:36-0500 Diastolic blood pressure 80 mm[Hg] [facility] 05-22-2024 13:36-0500 Heart rate 56 /min [facility] 05-22-2024 13:36-0500 Respiratory rate 12 /min [facility] 05-22-2024 13:36-0500 SaO2% (BldA) [Mass fraction] 97 % [facility] 05-22-2024 13:36-0500 Systolic blood pressure 124 mm[Hg] [facility] 04-05-2024 11:59-0500 Diastolic blood pressure 78 mm[Hg] Michael Ramos DO Work Phone: [facility] 04-05-2024 11:59-0500 Systolic blood pressure 180 mm[Hg] Michael Ramos DO Work Phone: [facility] 04-05-2024 11:19-0500 Heart rate 56 /min Michael Ramos DO Work Phone: [facility] 04-05-2024 11:15-0500 Body height 162.6 cm Michael Ramos DO Work Phone: [facility] 04-05-2024 11:15-0500 Body mass index (BMI) [Ratio] 22.31 kg/m2 Michael Ramos DO Work Phone: [facility] 04-05-2024 11:15-0500 Body weight 58.97 kg Michael Ramos DO Work Phone: [facility] 04-04-2024 13:33-0500 Body height 162.6 cm Amanda Bray LARDER COOK Work Phone: [facility] 04-04-2024 13:33-0500 Body mass index (BMI) [Ratio] 22.31 kg/m2 Amanda Bray LARDER COOK Work Phone: [facility] 04-04-2024 13:33-0500 Body weight 58.97 kg Amanda Bray [employer]ARDER COOK Work Phone: [facility] 04-04-2024 13:33-0500 Diastolic blood pressure 68 mm[Hg] Amanda Bray LARDER COOK Work Phone: [facility] 04-04-2024 13:33-0500 Heart rate 67 /min Amanda Bray LARDER COOK Work Phone: [facility] 04-04-2024 13:33-0500 SaO2% (BldA) [Mass fraction] 99 % Amanda Bray LARDER COOK Work Phone: [facility] 04-04-2024 13:33-0500 Systolic blood pressure 122 mm[Hg] Amanda Bray LARDER COOK Work Phone: [facility] 03-28-2024 10:33-0500 Body height 162.[address] [facility] 03-28-2024 10:33-0500 Body mass index (BMI) [Ratio] 22.3 kg/m2 [facility] 03-28-2024 10:33-0500 Body temperature 96.9 [degF] [facility] 03-28-2024 10:33-0500 Body weight 58.[address] [facility] 03-28-2024 10:33-0500 Diastolic blood pressure 85 mm[Hg] [facility] 03-28-2024 10:33-0500 Heart rate 62 /min [facility] 03-28-2024 10:33-0500 Respiratory rate 16 /min [facility] 03-28-2024 10:33-0500 SaO2% (BldA) [Mass fraction] 98 % [facility] 03-28-2024 10:33-0500 Systolic blood pressure 163 mm[Hg] [facility] 03-14-2024 13:41-0500 Body height 162.[address] [facility] 03-14-2024 13:41-0500 Body mass index (BMI) [Ratio] 22.3 kg/m2 [facility] 03-14-2024 13:41-0500 Body weight 58.[address] [facility] 03-14-2024 13:41-0500 Diastolic blood pressure 77 mm[Hg] [facility] 03-14-2024 13:41-0500 Heart rate 61 /min [facility] 03-14-2024 13:41-0500 Systolic blood pressure 178 mm[Hg] [facility] 03-07-2024 14:06-0500 Hourly Rounding Willie Caio [facility] 03-07-2024 14:06-0500 Promise to Return Willie Caio [facility] 03-07-2024 13:19-0500 Hourly Rounding Willie Caio [facility] 03-07-2024 13:19-0500 Promise to Return Willie Caio [facility] 03-07-2024 12:28-0500 Hourly Rounding Willie Caio [facility] 03-07-2024 12:28-0500 Promise to Return Willie Caio [facility] 03-07-2024 11:45-0500 Diastolic blood pressure 63 mm[Hg] Willie Caio [facility] 03-07-2024 11:45-0500 Heart rate 86 /min Willie Caio [facility] 03-07-2024 11:45-0500 Systolic blood pressure 149 mm[Hg] Willie Caio [facility] 03-07-2024 10:13-0500 Heart rate 86 /min Willie Caio [facility] 03-07-2024 10:13-0500 SaO2% (BldA) [Mass fraction] 96 % Willie Caio [facility] 03-07-2024 10:12-0500 Diastolic blood pressure 63 mm[Hg] Willie Caio [facility] 03-07-2024 10:12-0500 Mean blood pressure 92 mm[Hg] Willie Caio [facility] 03-07-2024 10:12-0500 Systolic blood pressure 149 mm[Hg] Willie Fatimaer [facility] 03-07-2024 10:12-0500 Body temperature 98.06 [degF] Willie Fatimaer [facility] 03-07-2024 07:22-0500 Heart rate 87 /min Willie Fatimaer [facility] 03-07-2024 07:22-0500 SaO2% (BldA) [Mass fraction] 97 % Willie Kearney [facility] 03-07-2024 07:21-0500 Diastolic blood pressure 67 mm[Hg] Willie Kearney [facility] 03-07-2024 07:21-0500 Mean blood pressure 102 mm[Hg] Willie Kearney [facility] 03-07-2024 07:21-0500 Systolic blood pressure 173 mm[Hg] Willie Kearney [facility] 03-07-2024 07:19-0500 Body temperature 98.24 [degF] Willie Kearney [facility] 03-07-2024 04:00-0500 Blood Pressure Location Willie Fatimaer [facility] 03-07-2024 04:00-0500 Body temperature 98.78 [degF] Willie Fatimaer [facility] 03-07-2024 04:00-0500 Heart rate 85 /min Willie Fatimaer [facility] 03-07-2024 04:00-0500 Mean blood pressure 105 mm[Hg] Willie Fatimaer [facility] 03-07-2024 04:00-0500 Respiratory rate 18 /min Willie Kearney [facility] 03-07-2024 01:00-0500 Heart rate 70 /min Willie Kearney [facility] 03-07-2024 01:00-0500 Mean blood pressure 99 mm[Hg] Willie Kearney [facility] 03-07-2024 01:00-0500 Respiratory rate 18 /min Willie Kearney [facility] 03-07-2024 00:00-0500 Body temperature 98.6 [degF] Willie Kearney [facility] 03-06-2024 21:25-0500 Blood Pressure Location Willie Kearney [facility] 03-06-2024 21:25-0500 Body temperature 98.24 [degF] Willie Kearney [facility] 03-06-2024 20:38-0500 Mean blood pressure 111 mm[Hg] Willie Kearney [facility] 03-06-2024 20:38-0500 Body temperature 98.24 [degF] Willie Kearney [facility] 01-18-2024 12:19-0400 Diastolic blood pressure 100 mm[Hg] Michael Ramos DO Work Phone: [facility] 01-18-2024 12:19-0400 Systolic blood pressure 170 mm[Hg] Michael Ramos DO Work Phone: [facility] 01-18-2024 11:21-0400 Body height 162.6 cm Michael Ramos DO Work Phone: [facility] 01-18-2024 11:21-0400 Body mass index (BMI) [Ratio] 23 kg/m2 Michael Ramos DO Work Phone: [facility] 01-18-2024 11:040 Body weight 60.78 kg Michael Ramos DO Work Phone: [facility] 01-18-2024 11:040 Heart rate 60 /min Michael Ramos DO Work Phone: [facility] 12-22-2023 13:040 Body height 162.[address] [facility] 12-22-2023 13:0400 Body mass index (BMI) [Ratio] 23.6 kg/m2 [facility] 12-22-2023 13:26-0400 Body temperature 96.8 [degF] [facility] 12-22-2023 13:26-0400 Body weight 62.[address] [facility] 12-22-2023 13:26-0400 Diastolic blood pressure 74 mm[Hg] [facility] 12-22-2023 13:26-0400 Heart rate 68 /min [facility] 12-22-2023 13:26-0400 Respiratory rate 16 /min [facility] 12-22-2023 13:26-0400 SaO2% (BldA) [Mass fraction] 98 % [facility] 12-22-2023 13:26-0400 Systolic blood pressure 131 mm[Hg] [facility] 12-17-2023 11:130400 Body height 162.[address] [facility] 12-17-2023 11:130400 Body mass index (BMI) [Ratio] 22.6 kg/m2 [facility] 12-17-2023 11:130400 Body weight 59.[address] [facility] 12-17-2023 11:13-0400 Diastolic blood pressure 68 mm[Hg] [facility] 12-17-2023 11:13-0400 Heart rate 63 /min [facility] 12-17-2023 11:13-0400 Systolic blood pressure 162 mm[Hg] [facility] 08-05-2023 10:46-0400 Body height 162.[address] [facility] 08-05-2023 10:46-0400 Body mass index (BMI) [Ratio] 23.3 kg/m2 [facility] 08-05-2023 10:46-0400 Body temperature 96.1 [degF] [facility] 08-05-2023 10:46-0400 Body weight 61.[address] [facility] 08-05-2023 10:46-0400 Diastolic blood pressure 80 mm[Hg] [facility] 08-05-2023 10:46-0400 Heart rate 68 /min [facility] 08-05-2023 10:46-0400 Respiratory rate 16 /min [facility] 08-05-2023 10:46-0400 SaO2% (BldA) [Mass fraction] 98 % [facility] 08-05-2023 10:46-0400 Systolic blood pressure 132 mm[Hg] [facility] 05-18-2023 11:27-0500 Body height 162.6 cm Michael Ramos DO Work Phone: [facility] 05-18-2023 11:27-0500 Body mass index (BMI) [Ratio] 22.49 kg/m2 Michael Ramos DO Work Phone: [facility] 05-18-2023 11:27-0500 Body weight 59.42 kg Michael Ramos DO Work Phone: [facility] 05-18-2023 11:27-0500 Diastolic blood pressure 80 mm[Hg] Michael Ramos DO Work Phone: [facility] 05-18-2023 11:27-0500 Heart rate 64 /min Michael Ramos DO Work Phone: [facility] 05-18-2023 11:27-0500 Systolic blood pressure 140 mm[Hg] Michael Ramos DO Work Phone: [facility] 03-10-2023 10:36-0500 Body height 162.6 cm Meera PEARL Work Phone: [facility] 03-10-2023 10:36-0500 Body mass index (BMI) [Ratio] 22.31 kg/m2 Meera Avalos [employer]MIN[employer]RATOR Work Phone: [facility] 03-10-2023 10:36-0500 Body weight 58.97 kg Meera Avalos [employer]LECT[employer] METER INSPECTOR-J[employer]IOR NETWORK ADMINISTRATOR Work Phone: [facility] 03-10-2023 10:36-0500 Diastolic blood pressure 66 mm[Hg] Meera Avalos [employer]LECT[employer] METER INSPECTOR-JUNIOR NETWORK ADMINISTRATOR Work Phone: [facility] 03-10-2023 10:36-0500 Heart rate 64 /min Meera Avalos [employer]LECT[employer] METER INSPECTOR-JUNIOR NETWORK ADMINISTRATOR Work Phone: [facility] 03-10-2023 10:36-0500 Systolic blood pressure 140 mm[Hg] Meera Avalos [employer]LECT[employer] METER INSPECTOR-JUNIOR NETWORK ADMINISTRATOR Work Phone: [facility] 02-02-2023 11:00-0500 Body height 162.56 cm Antonino Gustafson Other [email or web address] Other 02-02-2023 11:00-0500 Body mass index (BMI) [Ratio] 22.14 kg/m2 Antonino Gustafson Other [email or web address] Other 02-02-2023 11:00-0500 Body weight 58.51 kg Antonino Gustafson Other [email or web address] Other 02-02-2023 11:00-0500 Diastolic blood pressure 63 mm[Hg] Antonino Gustafson Other [email or web address] Other 02-02-2023 11:00-0500 Systolic blood pressure 127 mm[Hg] Antonino Gustafson Other [email or web address] Other 01-29-2023 14:05-0400 Body temperature 97.2 [degF] MD Antonino Gustafson Work Phone: [facility] 01-29-2023 14:05-0400 Diastolic blood pressure 71 mm[Hg] MD Antonino Gustafson Work Phone: [facility] 01-29-2023 14:05-0400 Heart rate 75 /min MD Antonino Gustafson Work Phone: [facility] 01-29-2023 14:05-0400 Respiratory rate 16 /min MD Antonino Gustafson Work Phone: [facility] 01-29-2023 14:05-0400 SaO2% (BldA) [Mass fraction] 95 % MD Antonino Gustafson Work Phone: [facility] 01-29-2023 14:05-0400 Systolic blood pressure 156 mm[Hg] MD Antonino Gustafson Work Phone: [facility] 01-29-2023 05:56-0400 Body weight 57.1 kg MD Antonino Gustafson Work Phone: [facility] 01-28-2023 16:00-0400 Body height 162.56 cm MD Antonino Gustafson Work Phone: [facility] 01-27-2023 10:54-0400 Body temperature 97.8 [degF] MD Antonino Gustafson Work Phone: [facility] 01-27-2023 10:54-0400 Diastolic blood pressure 74 mm[Hg] MD Antonino Gustafson Work Phone: [facility] 01-27-2023 10:54-0400 Heart rate 64 /min MD Antonino Gustafson Work Phone: [facility] 01-27-2023 10:54-0400 Respiratory rate 20 /min MD Antonino Gustafson Work Phone: [facility] 01-27-2023 10:54-0400 SaO2% (BldA) [Mass fraction] 100 % MD Antonino Gustafson Work Phone: [facility] 01-27-2023 10:54-0400 Systolic blood pressure 181 mm[Hg] MD Antonino Gustafson Work Phone: [facility] 01-27-2023 07:53-0400 Body height 162.56 cm MD Antonino Gustafson Work Phone: [facility] 01-27-2023 07:53-0400 Body weight 58.96 kg MD Antonino Gustafson Work Phone: [facility] 01-04-2023 13:00-0400 Body height 162.56 cm Liliya Bhavna Other [email or web address] Other 01-04-2023 13:00-0400 Body mass index (BMI) [Ratio] 22.59 kg/m2 Liliya Bhavna Other [email or web address] Other 01-04-2023 13:00-0400 Body temperature 96.4 [degF] Liliya Bhavna Other [email or web address] Other 01-04-2023 13:00-0400 Body weight 59.69 kg Liliya Bhavna Other [email or web address] Other 01-04-2023 13:00-0400 Diastolic blood pressure 74 mm[Hg] Liliya Bhavna Other [email or web address] Other 01-04-2023 13:00-0400 Respiratory rate 18 /min Liliya Bhavna Other [email or web address] Other 01-04-2023 13:00-0400 SaO2% (BldA) [Mass fraction] 98 % Liliya Bhavna Other [email or web address] Other 01-04-2023 13:00-0400 Systolic blood pressure 153 mm[Hg] Liliya Bhavna Other [email or web address] Other 11-03-2022 15:30-0400 Body height 162.56 cm Antonino Gustafson Other [email or web address] Other 11-03-2022 15:30-0400 Body mass index (BMI) [Ratio] 22.83 kg/m2 Antonino Gustafson Other [email or web address] Other 11-03-2022 15:30-0400 Body weight 60.33 kg Antonino Gustafson Other [email or web address] Other 11-03-2022 15:30-0400 Diastolic blood pressure 55 mm[Hg] Antonino Gustafson Other [email or web address] Other 11-03-2022 15:30-0400 Systolic blood pressure 146 mm[Hg] Antonino Gustafson Other [email or web address] Other 06-11-2022 11:40-0400 Body height 162.56 cm Liliya Bhavna Other [email or web address] Other 06-11-2022 11:40-0400 Body mass index (BMI) [Ratio] 24.92 kg/m2 Liliya Bhavna Other [email or web address] Other 06-11-2022 11:40-0400 Body temperature 96.9 [degF] Liliya Bhavna Other [email or web address] Other 06-11-2022 11:40-0400 Body weight 65.86 kg Liliya Bhavna Other [email or web address] Other 06-11-2022 11:40-0400 Diastolic blood pressure 88 mm[Hg] Liliya Bhavna Other [email or web address] Other 06-11-2022 11:40-0400 Respiratory rate 18 /min Liliya Bhavna Other [email or web address] Other 06-11-2022 11:40-0400 SaO2% (BldA) [Mass fraction] 98 % Liliya Bhavna Other [email or web address] Other 06-11-2022 11:40-0400 Systolic blood pressure 138 mm[Hg] Liliya Bhavna Other [email or web address] Other 03-18-2022 11:35-0500 Diastolic blood pressure 62 mm[Hg] Antonino Gustafson [facility] [employer] DO Work Phone: 03-18-2022 11:35-0500 Systolic blood pressure 130 mm[Hg] Antonino Gustafson Work Phone: [facility] [email or web address] 250 DO Work Phone: 03-18-2022 11:23-0500 Body height 162.56 cm Antonino Gustafson Work [facility] [employer] 250 DO Work Phone: 03-18-2022 11:23-0500 Body mass index (BMI) [Ratio] 24.2 kg/m2 Antonino Gustafson Work Phone: [facility] [employer] 250 DO Work Phone: 03-18-2022 11:23-0500 Body surface area Derived from formula 1.69 m2 Antonino Gustafson Work Phone: [facility] 250 DO Work Phone: 03-18-2022 11:23-0500 Body weight 63.96 kg Antonino Gustafson Work Phone: [facility] [employer] 250 DO Work Phone: 03-18-2022 11:23-0500 Diastolic blood pressure 60 mm[Hg] Antonino Gustafson Work Phone: [facility] 250 DO Work Phone: 03-18-2022 11:23-0500 Heart rate 60 /min Antonino Gustafson Work Phone: [facility] 250 DO Work Phone: 03-18-2022 11:23-0500 Systolic blood pressure 142 mm[Hg] Antonino Gustafson Work Phone: [facility] 250 DO Work Phone: 01-15-2022 11:16-0400 Diastolic blood pressure 80 mm[Hg] Antonino Gustafson Work Phone: [facility] 250 DO Work Phone: 01-15-2022 11:16-0400 Systolic blood pressure 192 mm[Hg] Antonino Gustafson Work Phone: [facility] 250 DO Work Phone: 01-15-2022 10:55-0400 Diastolic blood pressure 80 mm[Hg] Antonino Gustafson Work Phone: [facility] 250 DO Work Phone: 01-15-2022 10:55-0400 Systolic blood pressure 218 mm[Hg] Antonino Gustafson Work Phone: [facility] [facility] DO Work Phone: 01-15-2022 10:48-0400 Body height 162.56 cm Antonino Gustafson Work Phone: [facility] [facility] DO Work Phone: 01-15-2022 10:48-0400 Body mass index (BMI) [Ratio] 23.34 kg/m2 Antonino Gustafson Work Phone: [facility] [employer] 250 DO Work Phone: 01-15-2022 10:48-0400 Body surface area Derived from formula 1.66 m2 Antonino Gustafson Work Phone: [facility] 250 DO Work Phone: 01-15-2022 10:48-0400 Body weight 61.69 kg Antonino Gustafson Work Phone: [facility] [employer] 250 DO Work Phone: 01-15-2022 10:48-0400 Diastolic blood pressure 74 mm[Hg] Antonino Gustafson Work Phone: [facility] [employer] 250 DO Work Phone: 01-15-2022 10:48-0400 Heart rate 60 /min Antonino Gustafson Work Phone: [facility] [email or web address] 250 DO Work Phone: 01-15-2022 10:48-0400 Systolic blood pressure 220 mm[Hg] Antonino Gustafson Work Phone: [facility] [email or web address] 250 DO Work Phone: 12-08-2021 11:40-0400 Body height 162.56 cm Liliya Bhavna Other [email or web address] Other 12-08-2021 11:40-0400 Body mass index (BMI) [Ratio] 23.34 kg/m2 Liliya Bhavna Other [email or web address] Other 12-08-2021 11:40-0400 Body temperature 97.2 [degF] Liliya Bhavna Other [email or web address] Other 12-08-2021 11:40-0400 Body weight 61.69 kg Liliya Bhavna Other [email or web address] Other 12-08-2021 11:40-0400 Diastolic blood pressure 72 mm[Hg] Liliya Bhavna Other [email or web address] Other 12-08-2021 11:40-0400 Respiratory rate 18 /min Liliya Bhavna Other [email or web address] Other 12-08-2021 11:40-0400 SaO2% (BldA) [Mass fraction] 99 % Liliya Bhavna Other [email or web address] Other 12-08-2021 11:40-0400 Systolic blood pressure 130 mm[Hg] Liliya Bhavna Other [email or web address] Other 10-31-2021 03:30-0400 Diastolic blood pressure 85 mm[Hg] MD Antonino Gustafson Work Phone: [facility] 10-31-2021 03:30-0400 Heart rate 55 /min MD Antonino Gustafson Work Phone: [facility] 10-31-2021 03:30-0400 Respiratory rate 18 /min MD Antonino Gustafson Work Phone: [facility] 10-31-2021 03:30-0400 SaO2% (BldA) [Mass fraction] 96 % MD Antonino Gustafson Work Phone: [facility] 10-31-2021 03:30-0400 Systolic blood pressure 193 mm[Hg] MD Antonino Gustafson Work Phone: [facility] 10-31-2021 00:19-0400 Body height 162.56 cm MD Antonino Gsutafson Work Phone: [facility] 10-31-2021 00:19-0400 Body temperature 98 [degF] MD Antonino Gustafson Work Phone: [facility] 10-31-2021 00:19-0400 Body weight 58.96 kg MD Antonino Gustafson Work Phone: [facility] 05-29-2021 11:00-0500 Body height Liliya Bhavna Other [email or web address] Other 05-29-2021 11:00-0500 Body mass index (BMI) [Ratio] 24.03 kg/m2 Liliya Bhavna Other [email or web address] Other 05-29-2021 11:00-0500 Body weight 63.5 kg Liliya Bhavna Other [email or web address] Other 05-29-2021 11:00-0500 Diastolic blood pressure 76 mm[Hg] Liliya Bhavna Other [email or web address] Other 05-29-2021 11:00-0500 Respiratory rate 18 /min Liliya Bhavna Other [email or web address] Other 05-29-2021 11:00-0500 SaO2% (BldA) [Mass fraction] 99 % Liliya Bhavna Other [email or web address] Other 05-29-2021 11:00-0500 Systolic blood pressure 134 mm[Hg] Liliya Bhavna Other [email or web address] Other 01-09-2021 11:30-0400 Diastolic blood pressure 70 mm[Hg] Antonino Gustafson Work Phone: [facility] DO Work Phone: 01-09-2021 11:30-0400 Systolic blood pressure 144 mm[Hg] Antonino [facility]afson Work Phone: [facility] [facility] DO Work Phone: 01-09-2021 10:54-0400 Body height 162.56 cm Antonino Gustafson Work Phone: [facility] [facility] DO Work Phone: 01-09-2021 10:54-0400 Body mass index (BMI) [Ratio] 24.2 kg/m2 Antonino Gustafson Work Phone: [facility] [facility] DO Work Phone: 01-09-2021 10:54-0400 Body surface area Derived from formula 1.69 m2 Antonino Gustafson Work Phone: [facility] 250 DO Work Phone: 01-09-2021 10:54-0400 Body weight 63.96 kg Antonino Gustafson Work Phone: [facility] [facility] DO Work Phone: 01-09-2021 10:54-0400 Diastolic blood pressure 74 mm[Hg] Antonino Gustafson Work Phone: [facility] [facility] DO Work Phone: 01-09-2021 10:54-0400 Heart rate 60 /min Antonino Gustafson Work Phone: [facility] 250 DO Work Phone: 01-09-2021 10:54-0400 Systolic blood pressure 156 mm[Hg] Antonino Gustafson Work Phone: [facility] 250 DO Work Phone: Encounters Encounter Date Encounter Type Care Provider Facility Start: 01-03-2025 End: 01-03-2025 ambulatory Antonino Gustafson MD Work Phone: [facility] Work Phone: Start: 01-03-2025 End: 01-03-2025 Patient encounter procedure Nancie Leigh [facility] Work Phone: Start: 11-21-2024 End: 11-21-2024 ambulatory [facility] Amb[facility] Start: 11-21-2024 End: 11-21-2024 Office outpatient visit 10 minutes Michael Ramos DO Work Phone: [facility] Comment on above: Essential hypertensi on; Former smoker; BMI 22.0-22.9, adult Start: 09-27-2024 End: 09-27-2024 ambulatory [facility] Start: 09-27-2024 End: 09-27-2024 Office outpatient visit 15 minutes Michael Ramos DO Work Phone: [facility] Comment on above: ASHD (arteriosclerot ic heart disease); Paroxysmal atrial fibrillation (Multi); Renal artery stenosis; 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; Essential hypertension; BMI 23.0-23.9, adult; Former smoker Start: 09-25-2024 Patient encounter procedure Atnonino Gustafson MD Work Phone: [facility] Start: 09-25-2024 End: 09-25-2024 ambulatory Antonino Gustafson MD Work Phone: [facility] Work Phone: Start: 09-25-2024 End: 09-25-2024 Patient encounter procedure Antonino Gustafson MD -[facility] Work Phone: Start: 09-20-2024 End: 09-20-2024 ambulatory Antonino Gustafson MD Work Phone: [facility] Work Phone: Start: 09-20-2024 End: 09-20-2024 Patient encounter procedure Nancie Leigh DO -[facility]rology Work Phone: Start: 09-04-2024 End: 09-04-2024 Bamboo flowsheet Palma Rodriguez DO Work Phone: [facility] Start: 09-04-2024 End: 09-04-2024 Bamboo flowsheet Palma D Zahler DO Work Phone: [facility] Start: 09-04-2024 End: 09-04-2024 ambulatory PALMA RODRIGUEZ Not Available Start: 08-29-2024 End: 08-29-2024 ambulatory Antonino Gustafson MD Work Phone: [facility] Work Phone: Start: 08-29-2024 End: 08-29-2024 Patient encounter procedure Antonino Gustafson MD Work Phone: [facility] Work Phone: Start: 08-16-2024 Non-patient / Non-visit Antonino Gustafson MD Work Phone: [facility] Work Phone: Start: 08-07-2024 End: 08-07-2024 ambulatory Antonino Gustafson MD Work Phone: [facility] Work Phone: Start: 08-07-2024 End: 08-07-2024 Patient encounter procedure Antonino Gustafson MD Work Phone: [facility] Work Phone: Start: 08-03-2024 Non-patient / Non-visit Antonino Gustafson MD Work Phone: [facility] Work Phone: Start: 08-02-2024 Non-patient / Non-visit Antonino Gustafson MD Work Phone: [facility] Work Phone: Start: 07-26-2024 Non-patient / Non-visit Antonino Gustafson MD Work Phone: [facility] Work Phone: Start: 07-25-2024 End: 08-02-2024 Evaluation and management of inpatient Antonino Gustafson MD Work Phone: [facility] [place] [facility] Work Phone: Start: 07-24-2024 Non-patient / Non-visit Antonino Gustafson MD Work Phone: [facility] Work Phone: Start: 07-24-2024 Non-patient / Non-visit Antonino Gustafson MD Work Phone: [facility] Work Phone: Start: 07-23-2024 Non-patient / Non-visit Antonino Gustafson MD Work Phone: [facility]monary Work Phone: Start: 07-22-2024 End: 07-25-2024 Evaluation and management of inpatient Antonino Gustafson MD Work Phone: [facility] [place] [facility] Work Phone: Start: 06-29-2024 End: 06-29-2024 Clinisync Result Encounter Amanda Asa LARDER COOK Work Phone: [facility] Unsolicited Start: 06-29-2024 End: 06-29-2024 Clinisync Result Encounter Amanda Asa [employer]ARDER COOK Work Phone: [facility] Unsolicited Start: 06-29-2024 Non-patient / Non-visit Antonino Gustafson MD Work Phone: [facility] Work Phone: Start: 06-26-2024 End: 06-26-2024 Telephone encounter Marina Burt LARDER COOK Work Phone: [facility] Start: 05-25-2024 End: 05-25-2024 Office outpatient visit 15 minutes Michael Ramos DO Work Phone: [facility] Comment on above: Accelerated hyperten alvaro Start: 05-25-2024 End: 05-25-2024 ambulatory [facility] Amb[facility] Start: 05-22-2024 End: 05-22-2024 ambulatory [facility] Work Phone: Start: 05-22-2024 End: 05-22-2024 Patient encounter procedure [facility] Physician [facility] Work Phone: Start: 04-05-2024 End: 04-05-2024 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; Paroxysmal atrial fibrillation (Multi); ASHD (arteriosclerotic heart disease); Mixed hyperlipidemia; BMI 22.0-22.9, adult; Former smoker; TATI inhibitor intolerance; Statin intolerance Start: 04-05-2024 End: 04-05-2024 ambulatory [facility] Start: 04-04-2024 End: 04-04-2024 Bamboo flowsheet Amanda Bray LARDER COOK Work Phone: [facility] Start: 04-04-2024 End: 04-04-2024 Bamboo flowsheet Amanda Bray [employer]OOK Work Phone: [facility] Start: 04-04-2024 End: 04-04-2024 Office outpatient visit 25 minutes Amanda Bray [employer]OOK Work Phone: [facility] Comment on above: Ischemic stroke (CMS /HCC) (Primary Dx); Visual field defect; Hypertension, unspecified type (CMS/HCC); Encounter for medication monitoring; Paroxysmal atrial fibrillation (CMS/HCC); Altered mental status, unspecified altered mental status type Start: 04-04-2024 End: 04-04-2024 ambulatory AMANDA BRAY Not Available Start: 03-28-2024 End: 03-28-2024 Patient encounter procedure [facility] Physician [facility] Work Phone: Start: 03-21-2024 Non-patient / Non-visit [facility] Physician [facility] Work Phone: Start: 03-14-2024 End: 03-14-2024 Patient encounter procedure [facility] Physician [facility] Work Phone: Start: 03-08-2024 Non-patient / Non-visit [facility] Physician [facility] Work Phone: Start: 03-06-2024 End: 03-07-2024 ambulatory Willie Kearney [facility] Start: 03-06-2024 Emergency department patient visit Rolando Zarco Facility:[facility] Start: 03-06-2024 End: 03-07-2024 Observation Willie HornMalick Kearney [facility] Start: 03-06-2024 End: 03-06-2024 Bamboo flowsheet Palma Rodriguez DO Work Phone: [facility] Start: 03-06-2024 End: 03-06-2024 Bamboo flowsheet Palma Rodriguez DO Work Phone: [facility] Start: 03-06-2024 End: 03-06-2024 ambulatory PALMA RODRIGUEZ Not Available Start: 02-17-2024 End: 02-17-2024 Patient encounter procedure [facility] Physician [facility] Work Phone: Start: 02-17-2024 End: 02-17-2024 ambulatory Antonino Gustafson [facility] Work Phone: Start: 02-07-2024 Non-patient / Non-visit [facility] Physician [facility] Work Phone: Start: 02-05-2024 Non-patient / Non-visit [facility] Physician [facility] Work Phone: Start: 01-25-2024 End: 01-25-2024 ambulatory [facility] Start: 01-18-2024 End: 01-18-2024 Office outpatient visit 25 minutes [facility] DO Work Phone: [facility] Comment on above: Accelerated hyperten alvaro; ASHD (arteriosclerotic heart disease); Paroxysmal atrial fibrillation (Multi); Former smoker; Body mass index (BMI) 23.0-23.9, adult Start: 01-18-2024 End: 01-18-2024 ambulatory [facility] Start: 12-22-2023 End: 12-22-2023 ambulatory [facility] Work Phone: Start: 12-22-2023 End: 12-22-2023 Patient encounter procedure [facility] Physician [facility] José Antonio Work Phone: Start: 12-17-2023 End: 12-17-2023 ambulatory [facility] Work Phone: Start: 12-17-2023 End: 12-17-2023 Patient encounter procedure [facility] Physician [facility] Work Phone: Start: 08-05-2023 End: 08-05-2023 ambulatory [facility] Work Phone: Start: 08-05-2023 End: 08-05-2023 Patient encounter procedure [facility] Physician [facility] José Antonio Work Phone: Start: 07-27-2023 Non-patient / Non-visit [facility] Physician [facility] Work Phone: Start: 05-18-2023 End: 05-18-2023 Office outpatient visit 25 minutes [facility] Work Phone: [facility] Comment on above: Paroxysmal atrial fi brillation (CMS/HCC); Accelerated hypertension; Mixed hyperlipidemia; Stage 3b chronic kidney disease (CMS/HCC) Start: 03-10-2023 End: 03-10-2023 Office outpatient visit 15 minutes eMera Avalos ELECTRIC METER INSPECTOR-JUNIOR NETWORK ADMINISTRATOR Work Phone: [facility] Comment on above: Paroxysmal atrial fi brillation (CMS/HCC) (Primary Dx); Chest pain, unspecified type; Accelerated hypertension; Stage 3a chronic kidney disease (CMS/HCC); BMI 22.0-22.9, adult Start: 02-24-2023 End: 02-24-2023 ambulatory Antonino Gustafson Other [email or web address] Other Start: 02-24-2023 Telephone encounter Antonino Gustafson [facility] Start: 02-02-2023 End: 02-02-2023 ambulatory Antonino Gustafson Other [email or web address] Other Start: 02-02-2023 Transitional care michaela winter srvc 14 day discharge Antonino Gustafson [facility] Start: 01-28-2023 End: 01-28-2023 ambulatory Antonino Gustafson Other [email or web address] Other Start: 01-28-2023 Telephone encounter Antonino Gustafson [facility] Start: 01-28-2023 End: 01-29-2023 Evaluation and management of inpatient MD Antonino Gustafson Work Phone: [facility] [place] [facility] Work Phone: Start: 01-27-2023 Evaluation and management of inpatient MD Antonino Gustafson Work Phone: [facility] Work Phone: Start: 01-27-2023 observation encounter MD Preethi Gustafson Work Phone: [facility] Work Phone: Start: 01-04-2023 End: 01-04-2023 ambulatory Liliya Bhavna Other [email or web address] Other Start: 01-04-2023 Office outpatient vi sit 25 minutes Liliya Bhavna [facility] Start: 11-03-2022 End: 11-03-2022 ambulatory Antonino Gustafson Other [email or web address] Other Start: 11-03-2022 Office outpatient vi sit 15 minutes Antonino Gustafson [facility] Start: 10-09-2022 Rx Renewal Antonino Gustafson Work Phone: [facility] 250 DO Work Phone: Start: 06-11-2022 End: 06-11-2022 ambulatory Liliya Bhavna Other [facility] [employer] Other Start: 06-11-2022 Office outpatient vi sit 15 minutes Liliya Bhavna [facility] José Antonio Start: 06-03-2022 End: 06-04-[address] ANTONINO GUSTAFSON Facility:[facility] Start: 03-18-2022 Office outpatient vi sit 10 minutes Antonino Gustafson Work Phone: [facility] 250 DO Work Phone: Start: 03-18-[address] Antonino Gustafson Facility: Start: 02-09-2022 Adult health examination Preethi Gustafson Other [facility] [employer] Other Start: 02-05-2022 End: 02-06-[address] MICHAEL RAMOS Facility:[facility] Start: 01-15-[address] Michael Ramos Facility: Start: 01-15-2022 Office outpatient vi sit 25 minutes Antonino Gustafson Work Phone: [facility] 250 DO Work Phone: Start: 12-17-2021 Rx Renewal Antonino Gustafson Work Phone: [facility] 250 DO Work Phone: Start: 12-08-2021 End: 12-08-2021 ambulatory Liliya Bhavna Other [employer] [facility] [employer] Other Start: 12-08-2021 Office outpatient vi sit 25 minutes Liliya Bhavna [facility] José Antonio Start: 12-04-2021 End: 12-05-2021 ambulatory LILIYA BHAVNA Facility:[facility] Start: 10-31-2021 End: 10-31-2021 Emergency department patient visit MD Antonino Gustafson Work Phone: [facility] Start: 09-16-2021 Rx Renewal Antonino Gustafson Work Phone: [facility] 250 DO Work Phone: Start: 05-29-2021 End: 05-29-2021 ambulatory Liliya Bhavna Other [facility] [employer] [facility] [employer] [facility] Other Start: 05-29-2021 Office outpatient vi sit 15 minutes Liliya Bhavna [facility] Start: 01-22-2021 Rx Renewal Antonino Gustafson Work Phone: [facility] [address] [place] Work Phone: Start: 01-09-2021 Office outpatient vi sit 15 minutes Antonino Gustafson Work Phone: [facility] 250 DO Work Phone: Start: 01-09-2021 Patient encounter procedure [facility] Work Phone: Procedures Date Procedure Procedure Detail Performing Clinician Start: 09-04-2024 Visual field xm uni/ bi w/interp extended exam Palma Rodriguez DO Work Phone: Start: 09-04-2024 End: 09-04-2024 Ophth medical xm&eval comprhnsv estab pt 1/> Homonymous hemianopia, left Palma Rodriguez DO Work Phone: Comment on above: Homonymous hemianopi a, left (Primary Dx); Right posterior capsular opacification; Dry eyes Start: 07-24-2024 MRI of head Antonino cloud MD Work Phone: Start: 07-23-2024 Bacteria identified in Blood by Culture Antonino Gustafson MD Work Phone: Start: 07-23-2024 Plain chest X-ray Preethi Gustafson MD Work Phone: Start: 07-22-2024 CT angiography of head Antonino Gustafson MD Work Phone: Start: 07-22-2024 CT angiography of ne ck vessels Antonino Gustafson MD Work Phone: Start: 07-22-2024 CT of head without contrast Antonino Gustafson MD Work Phone: Start: 07-22-2024 Urine culture Antonino pro MD Work Phone: Start: 06-29-2024 ALL LIPID PROFILE (FASTING) Amanda Bray LARDER COOK Work Phone: Start: 06-29-2024 [facility] LIVER PANEL Amanda Bray [employer]OOK Work Phone: Start: 03-06-2024 Visual field xm uni/ bi w/interp extended exam Palma Rodriguez DO Work Phone: Start: 03-06-2024 End: 03-06-2024 Ophth medical xm&eval compre new pt 1/> vst Homonymous hemianopia, left Palma Beto Rodriguez DO Work Phone: Comment on above: Homonymous hemianopi a, left (Primary Dx); Cerebrovascular accident (CVA), unspecified mechanism (CMS/HCC) Start: 01-28-2023 [facility] Angio [...] Treatment Date Care Activity Detail Author Start: 04-03-2025 End: 04-03-2025 Patient encounter procedure 04/03/2025 2:00 PM EST Office Visit [address] [place] [address] Meera Avalos, ELECTRIC METER INSPECTOR-JUNIOR NETWORK ADMINISTRATOR [facility] [facility] [place] [address] [facility] Start: 11-27-2024 Influenza vaccination Influenza Vacc ine (#1) [facility] Start: 11-21-2024 End: 11-21-2024 Patient encounter procedure 11/21/2024 10:30 AM EDT Office Visit [address] [place] [address] Michael Ramos, DO [address] [facility] [address] [place] [address] [facility] Start: 11-02-2024 DTaP/Tdap/Td Vaccine s (2 - Tdap) DTaP/Tdap/Td Vaccines (2 - Tdap) [facility] Start: 09-27-2024 End: 09-27-2024 Patient encounter procedure 09/27/2024 10:20 AM EDT Office Visit [address] [place] [address] Michael Ramos, DO [address] [facility] [address] [place] [address] [facility] Start: 09-20-2024 End: 09-20-2024 Patient encounter procedure 09/20/2024 10:20 AM EDT Office Visit [address] [place] [address] Michael Ramos, DO [address] [facility] [place] [address] [facility] Start: 09-04-2024 End: 09-04-2024 Patient encounter procedure 09/04/2024 1:45 PM EDT Office Visit [facility] [address] [place] [address] Palma Rodriguez DO [address] [place] [address] [facility] Start: 08-02-2024 [facility] Start: 07-25-2024 Hospital admission [facility] Start: 07-25-2024 Referral to clinical electrician front [facility] Start: 07-25-2024 [facility] Start: 07-25-2024 [facility] Start: 07-24-2024 Referral to palliati ve care physician [facility] Start: 07-24-2024 Referral to rehabilitation physician [facility] Start: 07-23-2024 Bacteria identified in Blood by Culture Blood Culture [facility] Start: 07-23-2024 End: 07-23-2024 [facility] Start: 07-23-2024 End: 07-23-2024 [facility] Start: 07-23-2024 Referral to neurologist [facility] Start: 07-23-2024 MRI of head MR head/brain wo [facility] Start: 07-22-2024 Hospital admission [facility] Start: 07-22-2024 Urine culture [facility] Start: 07-22-2024 CT angiography of head [facility] Start: 07-22-2024 CT angiography of ne ck vessels [facility] Start: 07-22-2024 CT Head WO contrast [facility] Start: 07-22-2024 CT of head without contrast CT head stroke alert wo con [facility] Start: 07-22-2024 Telemedicine consult ation with patient [facility] Start: 07-22-2024 Bacteria identified in Urine by Culture Urine Culture [facility] Start: 06-27-2024 End: 06-27-2024 Patient encounter procedure 06/27/2024 2:20 PM EDT Office Visit [facility] [address] [place] [address] Amanda Bray NP [address] [facility] [place] [address] [facility] Start: 04-05-2024 End: 04-05-2024 Patient encounter procedure 04/05/2024 10:30 AM EST Office Visit [facility] [address] [facility] [address] [place] [address] Michael Ramos DO [address] [facility] [address] [place] [address] [facility] Start: 04-04-2024 End: 04-04-2025 Hepatic function 2000 panel - Serum or Plasma Hepatic function panel Lab Routine Encounter for medication monitoring Expected: 04/04/2024 (Approximate), Expires: 04/04/[address] [facility] Comment on above: Expected: 04/04/2024 (Approximate), Expires: 04/04/2025 Start: 04-04-2024 End: 04-04-2025 Lipid 1996 panel - Serum or Plasma Lipid panel Lab Routine Encounter for medication monitoring Expected: 04/04/2024 (Approximate), Expires: 04/04/[address] [facility] Work Phone: Comment on above: Expected: 04/04/2024 (Approximate), Expires: 04/04/2025 Start: 04-04-2024 End: 04-04-2024 Patient encounter procedure 04/04/2024 1:40 PM EST Office Visit [facility] [address] [address] [place] [phone] Amanda Bray NP [address] [address] [place] [address] Arrived [facility] Comment on above: Arrived Start: 03-06-2024 End: 03-06-2024 Patient encounter procedure 03/06/2024 1:00 PM EST Office Visit [facility] [address] [place], [place] [id number] Zahler, Palma D, DO [address] [place] [address] Arrived [facility]OM[facility] NB OPHT Comment on above: Arrived Start: 01-24-2024 End: 01-24-2024 Professional / ancillary services management 01/24/2024 10:00 AM EDT Ancillary Procedure [facility] [address] [facility] [address] [place] [address] [facility] Start: 01-18-2024 End: 01-17-2025 Holter monitor study Holter Or Event Barrel Inspector Tight Cardiac Services Routine Paroxysmal atrial fibrillation (Multi) Expected: 01/18/2024 (Approximate), Expires: 01/17/2025 [facility] Service Area Work Phone: Comment on above: Expected: 01/18/2024 (Approximate), Expires: 01/17/2025 Start: 01-18-2024 End: 01-18-2024 Patient encounter procedure 01/18/2024 10:40 AM EDT Office Visit [address] [place] [address] Michael Ramos DO [address] [facility] [address], [address] [place] [address] [facility] Start: 11-28-2023 COVID-19 Vaccine ( season) COVID-19 Vaccine ( season) [facility] Start: 11-28-2023 Influenza vaccination Influenza Vacc ine (#1) [facility] Start: 11-17-2023 End: 11-17-2023 Patient encounter procedure 11/17/2023 10:00 AM EDT Office Visit [facility] [address] [facility] [address] [place] [address] Meera Avalos, ELECTRIC METER INSPECTOR-JUNIOR NETWORK ADMINISTRATOR [facility] [facility] [place] [address] [facility] Start: 05-18-2023 End: 05-18-2023 Patient encounter procedure 05/18/2023 11:00 AM EST Office Visit [facility] [address] [place] [address] Michael Ramos, DO [address] [place] [address] [facility] Start: 04-06-2023 End: 04-06-2023 Patient encounter procedure 04/06/2023 10:00 AM EST Procedure Visit [facility] [address] [place] [id number] [facility] Start: 03-10-2023 End: 03-10-2024 Holter monitor study Holter Or Event Barrel Inspector [facility] Routine Paroxysmal atrial fibrillation (CMS/HCC) Expected: 03/10/2023 (Approximate), Expires: 03/10/2024 [facility] Service Area Work Phone: Comment on above: Expected: 03/10/2023 (Approximate), Expires: 03/10/2024 Start: 01-29-2023 [facility] Start: 01-27-2023 Hospital admission [facility] Start: 01-27-2023 Referral to superintendent construction [facility] Start: 01-14-2023 FUV, Provider: Michael Ramos, Status: Pen, Time: 10:00 AM FUV, Provider: Michael Ramos, Status: Pen, Time: 10:00 AM [facility] 250 DO Work Phone: Start: 11-27-2022 COVID-19 Vaccine ( season) COVID-19 Vaccine ( season) [facility] Start: 11-27-2022 Influenza vaccination Influenza Vacc ine (#1) [facility] Start: 03-18-2022 FUV, Provider: Meera Cha, Status: Pen, Time: 11:30 AM FUV, Provider: Meera Cha, Status: Pen, Time: 11:30 AM [facility] 250 DO Work Phone: Start: 01-15-2022 FUV, Provider: Michael Ramos, Status: Pen, Time: 10:00 AM FUV, Provider: Michael Ramos, Status: Pen, Time: 10:00 AM [facility] 250 DO Work Phone: Start: 09-18-2021 Medicare Annual Well ness Visit Medicare Annual Wellness Visit (AWV) [facility] Start: 05-08-2021 COVID-19 Vaccine (4 - Moderna series) COVID-19 Vaccine (4 - Moderna series) [facility] Start: 11-18-2014 RSV High Risk: (Elde rly (60+) or Population) (1 - 1-dose 75+ series) RSV High Risk: (Elderly (60+) or Population) (1 - 1-dose 75+ series) [facility] Start: 11-18-2004 Screening for osteoporosis Bone Density Scan [facility] Start: 11-18-1989 Zoster Vaccines (1 of 2) Zoste r Vaccines (1 of 2) [facility] Start: 11-18-1958 Pneumococcal vaccination Pneum ococcal Vaccine (1 of 2 - PCV) [facility] Start: 11-18-1958 Urine screening for protein CKD: Urine Protein Screening [facility] Start: 11-18-1957 Diabetes mellitus screening Diabetes Screening [facility] Start: 11-18-1945 Pneumococcal Vaccine : 65+ Years (1 - PCV) Pneumococcal Vaccine: 65+ Years (1 - PCV) [facility] Start: 11-18-1945 Pneumococcal Vaccine : 65+ Years (1 of 2 - PCV) Pneumococcal Vaccine: 65+ Years (1 of 2 - PCV) [facility] Start: 1939 Annual wellness visit Medicare Initial Physical (IPPE) [facility] Start: 1939 Lipid panel Lipid Panel [facility] Start: 1939 Medicare Annual Well ness Visit Medicare Annual Wellness Visit (AWV) [facility] Start: 1939 Screening for osteoporosis Bone Density Scan [facility] Start: 1939 Thyroid stimulating hormone measurement TSH Level [facility] Albumin/Globulin ratio [facility] Anion gap measurement [facility] Basophils [#/volume] in Blood by Automated count [facility] Basophils/100 leukoc ytes in Blood by Automated count [facility] Eosinophils/100 leukocytes in Blood by Automated count [facility] Erythrocyte distribu tion width [Ratio] by Automated count [facility] Erythrocytes [#/volu me] in Blood [facility] Globulin [Mass/volum e] in Serum [facility] Hematocrit [Volume Fraction] of Blood [facility] Hemoglobin [Mass/vol ume] in Blood [facility] Leukocytes [#/volume ] corrected for nucleated erythrocytes in Blood by Automated coun [facility] Leukocytes [#/volume ] in Blood [facility] Lymphocytes [#/volum e] in Blood by Automated count [facility] Lymphocytes/100 leukocytes in Blood by Automated count [facility] MCH [Entitic mass] b y Automated count [facility] MCHC [Mass/volume] b y Automated count [facility] MCV [Entitic volume] by Automated count [facility] Monocytes [#/volume] in Blood by Automated count [facility] Monocytes/100 leukoc ytes in Blood by Automated count [facility] Neutrophils [#/volum e] in Blood by Automated count [facility] Neutrophils/100 leukocytes in Blood by Automated count [facility] Nucleated erythrocyt es [Presence] in Blood by Automated count [facility] Patient Education [facility] Work Phone: Patient referral [facility] Work Phone: Platelet mean volume [Entitic volume] in Blood by Automated count [facility] Platelets [#/volume] in Blood [facility] Renal function 1999 panel - Serum or Plasma [facility] Renal function 1999 panel - Serum or Plasma [facility] Immunizations Immunization Date Immunization Notes Care Provider Fa [facility] 03-13-2021 Moderna COVID-19 Vac cine 100 MCG/0.5ML Intramuscular Suspension Antonino Gustafson Work Phone: [facility] 250 DO Work Phone: 06-19-2020 Moderna COVID-19 Vac cine 100 MCG/0.5ML Intramuscular Suspension Antonino Rand Sj Work Phone: [facility] 250 DO Work Phone: 05-23-2020 Moderna COVID-19 Vac cine 100 MCG/0.5ML Intramuscular Suspension Antonino Giorgi Gustafson Work Phone: [place] [address] DO Work Phone: 11-02-2014 diphtheria, tetanus toxoids and acellular pertussis vaccine, 5 pertussis antigens Antonino Gustafson Work Phone: [place] [address] DO Work Phone: Payers Date Payer Category Payer Self-pay [id number] 2015 Medicare supplementa l policy (as second payer) [facility] MEDICARE SUPPLEMENT [id number] 2015 Private Health Insurance [id number] .[id number] 2004 Medicare [id number] .[id number] 1959 Medicare [id number] 2.16.840.1.170529.19 1959 Private Health Insurance [id number] 2.16.840.1.156826.19 1939 Unknown [id number] 2.16.840.1.022754.3.579 .2.356 1939 Unknown [id number] 2.16.840.1.294174.3.579 .2.356 1939 Unknown [id number] 2.16.840.1.899128.3.579 .2.593 1939 Unknown [id number] 2.16.840.1.171308.3.579 .2.593 1939 Unknown [id number] 2.16.840.1.662282.3.579 .2.593 1939 Unknown [id number] 2.16.840.1.400360.3.579 .2.593 1939 Unknown [id number] 2.16840.1.580058.3.579 .2.727 1939 Unknown [id number] 2.16840.1.377675.3.579 .2.727 1939 Unknown [id number] 2.16840.1.519818.3.579 .2.727 1939 Unknown [id number] 2.16840.1.528992.3.579 .2.727 1939 Unknown [id number] 2.16840.1.107433.3.579 .2.727 1939 Unknown [id number] 2.16.840.1.821855.3.579 .2.727 1939 Unknown [id number] 2.16.840.1.284492.3.579 .2.727 1939 Unknown [id number] 2.16.840.1.440092.3.579 .2.727 1939 Unknown [id number] 2.16840.1.657207.3.579 .2.1259 1939 Unknown [id number] 2.16.840.1.130851.3.579 .2.1259 1939 Unknown [id number] 2.16.840.1.418220.3.579 .2.1259 1939 Unknown [id number] 2.16.840.1.868565.3.579 .2.1244 1939 Unknown [id number] 2.16.840.1.040796.3.579 .2.1244 1939 Unknown [id number] 2.16.840.1.323817.3.579 .2.1244 1939 Unknown [id number] 2.16.840.1.252362.3.579 .2.1244 1939 Unknown [id number] 2.16.840.1.425046.3.579 .2.1244 1939 Unknown [id number] 2.16.840.1.428498.3.579 .2.1244 Unknown Unknown [id number] 2.16.840.1.892819.3.579 .2.531 Unknown [id number] 2.16.840.1.109799.3.579 .2.531 Unknown [id number] 2.16.840.1.445069.3.579 .2.531 Social History Date Type Detail Facility Start: 03-10-2023 End: 09-27-2024 No alcohol use No alcohol use [place] [address] DO Work Phone: Comment on above: Coffee 2 cups daily; quit 1965; Start: 03-10-2023 End: 09-27-2024 Sex Assigned At [facility] Start: 10-31-2021 Tobacco smoking status COIS Never smoked tobacco (finding) [facility] Start: 1940 Sex Assigned At Female F [facility] Start: 01-27-2023 End: 08-24-2024 Tobacco smoking status COIS Ex-smoker (finding) [facility] End: 03-29-1969 History of tobacco use Current smoker [facility] Work Phone: End: 03-29-1969 History of tobacco use Cigarette Smoker [facility] Work Phone: Start: 03-10-2023 End: 01-18-2024 Tobacco use and exposure Smokeless tobacco non-user [facility] Work Phone: Start: 03-10-2023 End: 09-27-2024 Alcohol intake Lifetime non-drinker (finding) [facility] Work Phone: Start: 1940 Sex Assigned At Not on file [facility] Work Phone: Start: 02-28-2023 End: 05-25-2024 Exposure to SARS-CoV-2 (event) Not sure [facility] Start: 02-17-2024 End: 08-29-2024 Sex Female (finding) [facility] Start: 07-24-2024 Tobacco smoking status NHIS Tobacco smoking consumption unknown [facility] Tobacco smoking status No Smoking Status Entered [facility] Start: 04-04-2024 Tobacco Comment Quit smoking > 50 years ago [facility] Start: 08-02-2024 SDOH Follow up SDOH Follow up [facility] Work Phone: Start: 02-21-2022 Sex Female [facility] Goals Date Patient Goal Desired Activity /State Functional Status Date Assessment Result Facility 08-02-2024 Functional status Patient at Baseline [facility] Work Phone: 07-25-2024 Functional status Disability Sta tus Patient Not at Baseline [facility] Work Phone: 07-25-2024 Functional status Patient Not at Baseline [facility] Work Phone: 07-23-2024 Functional status Patient Not at Baseline [facility] Work Phone: 03-06-2024 Functional Status N/A [facility] 03-06-2024 Functional Status [facility] 01-29-2023 Functional status Patient at Baseline [facility] Work Phone: 01-27-2023 Functional status Patient at Baseline [facility] Work Phone: Mental Status Date Assessment Result Facility 08-02-2024 Cognitive function Cognitive Sta tus Patient at Baseline [facility] Work Phone: 07-23-2024 Cognitive function Cognitive Sta tus Patient Not at Baseline [facility] Work Phone: 01-29-2023 Cognitive function Cognitive Sta tus Patient at Baseline [facility] Work Phone: 01-27-2023 Cognitive function Cognitive Sta tus Patient at Baseline [facility] Work Phone: Clinical Notes 05-29-2021 to 11-21-2024 Michael Ramos, DO - 11/21/2024 10:30 AM EDTPatient InstructionsMichael Ramos, DO - 09/27/2024 10:20 AM EDTPatient InstructionsPalma Rodriguez, DO - 09/04/2024 1:45 PM EDT Note Date & Type Note Facility 11-21-2024 History of Present illness Narrative Chief Complaint Patient presents with Follow-up 8 week BP check Subjective Janelle Burt is a 84 y.o. female 84-year-old female here for blood pressure check which is normalized on higher dose valsartan and low-dose metoprolol. We reviewed her home log as well. She is doing well without any heart failure events or angina and greatly improved blood pressure Will follow-up with nurse practitioner in March on same therapy ROS Vitals: 11/21/24 1056 11/21/24 1059 BP: 126/78 132/74 BP Location: Left arm Right arm Patient Position: Sitting Sitting Pulse: 52 Weight: 59 kg (130 lb) Height: 1.626 m (5' 4 ) Objective Physical Exam Allergies Clonidine, Methylprednisolone, Oerrgpa-pto-noa reductase inhibitors, Tati inhibitors, Amlodipine, Hydralazine, Lisinopril, and Sulfamethoxazole Current Medications Current Outpatient Medications Medication Instructions apixaban (ELIQUIS) 5 mg, oral, 2 times daily aspirin 81 mg, oral, Every other day atorvastatin (LIPITOR) 40 mg, oral, Daily fenofibrate (TRICOR) 54 mg, oral, Daily levETIRAcetam (Keppra) 500 mg tablet 1 tablet, 2 times daily levothyroxine (SYNTHROID, LEVOXYL) 100 mcg, oral, Daily before breakfast metoprolol tartrate (LOPRESSOR) 25 mg, oral, 2 times daily metoprolol tartrate (LOPRESSOR) 50 mg, 2 times daily nitroglycerin (NITROSTAT) 0.4 mg, sublingual, Every 5 min PRN, Go to ER or call 911 after 3rd dose. valsartan (DIOVAN) 160 mg, oral, Daily valsartan (DIOVAN) 320 mg, Daily Assessment/Plan 1. Essential hypertension Follow Up In Cardiology 2. Former smoker 3. BMI 22.0-22.9, adult Scribe Attestation By signing my name below, I, Mavis Beach RN , Scribe attest that this documentation has been prepared under the direction and in the presence of Michael Ramos DO. Provider Attestation - Scribe documentation All medical record entries made by the Scribe were at my direction and personally dictated by me. I have reviewed the chart and agree that the record accurately reflects my personal performance of the history, physical exam, discussion and plan. documented in this encounter [facility] Work Phone: 11-21-2024 Instructions Iman Delcid CMA - 11/21/2024 10:30 AM EDT Please bring all medicines, vitamins, and herbal supplements with you when you come to the office. Prescriptions will not be filled unless you are compliant with your follow up appointments or have a follow up appointment scheduled as per instruction of your physician. Refills should be requested at the time of your visit. documented in this encounter [facility] Work Phone: 09-27-2024 History of Present illness Narrative Chief Complaint Patient presents with Follow-up 8 month arteriosclerotic heart diease Subjective Janelle Burt is a 83 y.o. female 83-year-old female returns following recent hospitalization for fall, seizure episode with history of paroxysmal A-fib, history of stroke with a left hemianopsia, hypertension. Blood pressure is moderately elevated for her today as reviewed. She is otherwise doing well, back at home, independent, patient has not had any issues with falling; no recurrent amnestic/seizure events Blood pressure is moderately elevated today we reviewed her blood pressure log. No changes in blood pressure therapy at this time however, we will follow-up with blood pressure check in the next 8 to 12 weeks; otherwise see her again in 6 months Review of Systems Neurological: Positive for dizziness. All other systems reviewed and are negative. Vitals: 09/27/24 1052 09/27/24 1120 BP: (!) 150/100 170/90 BP Location: Left arm Left arm Patient Position: Sitting Sitting Pulse: 68 Weight: 61.1 kg (134 lb 12.8 oz) Height: 1.626 m (5' 4 ) Objective [...] normal. Judgment: Judgment normal. Allergies Clonidine, Methylprednisolone, Lurmsqu-pqk-lqr reductase inhibitors, Tati inhibitors, Amlodipine, Hydralazine, Lisinopril, and Sulfamethoxazole Current Medications Current Outpatient Medications Medication Instructions apixaban (ELIQUIS) 5 mg, oral, 2 times daily aspirin 81 mg EC tablet 1 tablet, Daily atorvastatin (LIPITOR) 40 mg, oral, Daily fenofibrate (TRICOR) 54 mg, oral, Daily levETIRAcetam (Keppra) 500 mg tablet 1 tablet, 2 times daily levothyroxine (SYNTHROID, LEVOXYL) 100 mcg, oral, Daily before breakfast metoprolol tartrate (LOPRESSOR) 25 mg, oral, 2 times daily nitroglycerin (NITROSTAT) 0.4 mg, sublingual, Every 5 min PRN, Go to ER or call 911 after 3rd dose. valsartan (DIOVAN) 160 mg, oral, Daily Assessment/Plan 1. ASHD (arteriosclerotic heart disease) Follow Up In Cardiology 2. Paroxysmal atrial fibrillation (Multi) 3. 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 Essential hypertension 6. BMI 23.0-23.9, adult 7. Former smoker Scribe Attestation By signing my name below, IMonica LPN , Scribe attest that this documentation has been prepared under the direction and in the presence of Michael Ramos DO. Provider Attestation - Scribe documentation All medical record entries made by the Scribe were at my direction and personally dictated by me. I have reviewed the chart and agree that the record accurately reflects my personal performance of the history, physical exam, discussion and plan. documented in this encounter [facility] Work Phone: 09-27-2024 Instructions Daniel Castellano MA - 09/27/2024 10:20 AM EDT Please bring all medicines, vitamins, and herbal supplements with you when you come to the office. Prescriptions will not be filled unless you are compliant with your follow up appointments or have a follow up appointment scheduled as per instruction of your physician. Refills should be requested at the time of your visit. documented in this encounter [facility] Work Phone: 09-04-2024 Note Right Eye Reliability was good. Progression has improved. Foveal threshold was normal. Left Eye Reliability was borderline. Progression has worsened. Foveal threshold was normal. Notes Left Homonymous Hemianopsia [facility] 09-04-2024 History of Present illness Narrative Images from the original note were not included. Assessment/Plan Diagnoses and all orders for this visit: Homonymous hemianopia, left - Stable. Was worked up in at [facility] 02/2024 for CVA rule out (r/o). Right posterior capsular opacification - PCO OD: (Posterior Capsule Opacification) Can be observed without intervention if PCO is not visually significant. Nd:YAG laser capsulotomy may be considered if impairment of vision rises to a level that dose not meet the patient's functional needs or interferes with activities of daily living. Risks, benefits and alternatives to the procedure will be reviewed. If the patient has undergone Nd:YAG laser capsulotomy, they are to notify their owner/operator promptly if they have a significant change in symptoms, such as flashes of light (photopsia), an increase in floaters, loss of visual field or decrease in visual acuity. Dry eyes - Dry Eyes OU -- Environmental changes to minimize dryness and exposure and the use of artificial tears were recommended. documented in this encounter [facility] 07-31-2024 Progress note Note Date/Time July 31, 2024 1:55pm [facility] [address] [place] [address] Physiatry(Rehab) Progress Note Signed Patient: Janelle Burt MR#: [id number] : 1940 Acct:[id number] Age/Sex: 83 / F Adm Date: 5 Loc: Room: 2I0421-6 Type: ADM IN Attending Dr: Dev Jacobsen MD Copies to: ~ Date of Service: 07/31/2024 Subjective Subjective Narrative: Ms. Burt is a 83 year old female with PMH of CVA, hypoparathyroidism, HTN, HLD, stage III CKD, CAD, and A-fib presenting to acute inpatient rehab with functional impairments s/p new onset seizure. She was brought to the hospital on 07/22/2024 after a suspected seizure. Apparently she was not feeling well the day of the incident and had a fall in the bathroom with a head injury after which she has had some seizure-like activity. In the ER there was a concern for a CVA as the patient had some left-sided weakness. Initial CT head was nonacute. Labs notable for significant hyponatremia at 113, lactic acidosis at 4.0, mild leukocytosis, UA suspicious for UTI She underwent a brain MRI which was also nonacute demonstrating moderate chronicsmall vessel ischemic changes as well as mild central involutional changes. EEGwith no epileptiform activity and borderline background slowing. Patient was placed on prophylactic Keppra with neurology recommendation for an outpatient follow-up. Palliative care was also consulted for goals of care. Patient's CODE STATUS changed to DNR CCA without intubation. Interval History: Seen and examined. She is doing well today. She offers no major concerns. Admitsto some right shoulder pain as well as some mild back pain, although states thatthese issues began prior to admission to the hospital. No chest pain, SOB, fever, chills. Therapy going well. Ambulating 430' SBA-CGA. Review of Systems Review of Systems All other systems reviewed & are negative unless noted below or in HPI Exam Physical Exam Vital Signs: Temp Pulse Resp BP Pulse Ox O2 Del Method 98.1 F 68 20 112/53 L 96 Room Air 07/31/24 05:58 07/31/24 08:55 07/31/24 08:55 07/31/24 08:55 07/31/24 08:55 07/31/24 11:15 Narrative: General: Awake, alert, oriented x3 HENT: Normal to inspection, normocephalic, atraumatic Eyes: PERRL, normal conjunctiva and sclera Neck: Normal ROM, normal visual inspection. Trachea midline. Cardio: Regular heart rate and rhythm Respiratory: Clear to auscultation bilaterally. Normal respiratory effort. No respiratory distress. GI: Abdomen soft, nontender, nondistended Neuro: CN II-XII intact. Strength 5/5, equal bilaterally Extremities: No edema, erythema, cyanosis Psych: Mood and affect appropriate. Normal speech. Objective Labs 07/31/24 04:25 07/31/24 04:25 Labs: Laboratory Results - last 24 hr 07/31/24 04:25 Corrected WBC 6.3 Uncorrected WBC Count 6.3 RBC 3.98 Hgb 12.2 Hct 35.2 MCV 88.6 MCH 30.6 MCHC 34.5 RDW 13.5 Plt Count 227 MPV 7.7 Neut % (Auto) 53.1 Lymph % (Auto) 28.6 [place] % (Auto) 13.4 Eos % (Auto) 4.0 Baso % (Auto) 0.9 Nucleat RBC Rel Count 0.1 Neut # (Auto) 3.3 Lymph # (Auto) 1.8 [place] # (Auto) 0.8 Eos # (Auto) 0.3 Baso # (Auto) 0.1 PHA Creatinine Clear 37.67 Sodium 133 L Potassium 3.9 Chloride 101 Carbon Dioxide 29.2 Anion Gap 6.7 BUN 24 Creatinine 0.96 Est GFR (CKD-EPI) 58.341 Glucose 93 Calcium 8.8 Medications and Allergies Allergies and Active Meds: Allergies amlodipine (From Norvasc) Allergy (Unknown, Verified 07/22/24 21:12) Unknown Reaction ciprofloxacin Allergy (Unknown, Verified 07/22/24 21:12) Comment:joint pain clonidine (From Catapres) Allergy (Unknown, Verified 07/22/24 21:12) Unknown Reaction hydralazine Allergy (Unknown, Verified 07/22/24 21:12) Unknown Reaction lisinopril Allergy (Unknown, Verified 07/22/24 21:12) Unknown Reaction methylprednisolone (From Medrol) Allergy (Unknown, Verified 07/22/24 21:12) Unknown Reaction Dexwtqg-PTM-IdM Reductase Inhibitor (Lvjtqlt-Bxf-Wrg Reductase Inhibitor) Allergy (Unknown, Verified 07/22/24 21:12) Unknown Reaction Sulfa (Sulfonamide Antibiotics) Allergy (Unknown, Verified 07/22/24 21:12) Unknown Reaction Active Medications Generic Name Dose Route Start Last Admin Trade Name Freq PRN Reason Stop Dose Admin Acetaminophen 500 mg 07/25/24 17:25 07/27/24 19:58 Acetaminophen 500 Mg Tablet PO 07/25/25 17:24 500 mg Q4H PRN Administration Pain Al Hydrox/Mg Hydrox/Simethicone 30 ml 07/25/24 17:25 Mag Hydrox/Al Hydrox/Simeth 30 Ml Udc PO 07/25/25 17:24 Q4H PRN Indigestion Apixaban 5 mg 07/25/24 21:00 07/31/24 08:53 Apixaban 5 Mg Tablet PO 07/25/25 20:59 5 mg BID [place] Administration Aspirin 81 mg 07/26/24 09:00 07/31/24 08:53 Aspirin 81 Mg Tablet.Dr PO 07/26/25 08:59 81 mg DAILY CL[facility] Administration Atorvastatin Calcium 40 mg 07/26/24 09:00 07/31/24 08:53 Atorvastatin 40 Mg Tablet PO 07/26/25 08:59 40 mg DAILY [facility] Administration Bisacodyl 10 mg 07/25/24 17:25 Bisacodyl 10 Mg Supp.Rect AK 07/25/25 17:24 DAILY PRN Constipation Diclofenac Sodium 2 gm 07/27/24 05:27 Diclofenac Sodium 1% Gel 100 Gm Tube TOPICAL 07/27/25 08:59 TID PRN Pain Docusate Sodium 100 mg 07/25/24 17:25 Docusate 100 Mg Capsule PO 07/25/25 17:24 BID PRN Constipation Docusate Sodium 283 mg 07/25/24 17:25 Docusate Enema 283 Mg/5 Ml Enema AK 07/25/25 17:24 DAILY PRN Constipation Fenofibrate 48 mg 07/26/24 09:00 07/31/24 08:53 Fenofibrate Nanocrystallized 48 Mg Tablet PO 07/26/25 08:59 48 mg DAILY [place] Administration Lactulose 30 gm 07/25/24 17:25 Lactulose 20 Gm/30 Ml Udc PO 07/25/25 17:24 DAILY PRN Constipation Levetiracetam 500 mg 07/25/24 21:00 07/31/24 08:53 Levetiracetam 500 Mg Tablet PO 07/25/25 20:59 500 mg BID [place] Administration Levothyroxine Sodium 100 mcg 07/26/24 06:30 07/31/24 06:01 Levothyroxine 100 Mcg Tablet PO 07/26/25 06:29 100 mcg DAILY.0630 [place] Administration Metoprolol Tartrate 50 mg 07/29/24 21:00 07/31/24 08:53 Metoprolol Tartrate 50 Mg Tablet PO 07/29/25 20:59 50 mg BID [place] Administration Nitroglycerin 0.4 mg 07/25/24 17:31 Nitroglycerin 0.4 Mg Tab.Subl SUBLINGUAL 07/25/25 17:30 Q5M PRN chest pain Sennosides 17.2 mg 07/26/24 12:00 Sennosides 8.6 Mg Tablet PO 07/26/25 11:59 DAILY@12 PRN If no BM in 2 days Sodium Chloride 0 ml 07/25/24 17:25 Sodium Chloride 0.9 % 10 Ml Syringe IV-PUSH 07/25/25 17:24 PRN PRN Flush Valsartan 320 mg 07/31/24 09:00 07/31/24 08:53 Valsartan 320 Mg Tablet PO 07/31/25 08:59 320 mg DAILY [place] Administration Assessment/Plan Assessment/Plan (1) Seizure: Plan: PT to improve pt's strength, endurance, bed mobility, transfers (sit-stand), standing balance, gait quality on level surfaces and stairs, coordination and functional ADL skills. Will also work to improve pt's safety awareness during transfers and ambulation. OT for basic ADL re-training (bathing, dressing, toileting, continence, grooming, feeding, transferring), to increase activity tolerance and functional mobility and to evaluate for adaptive and assistive devices. Will work to improve pt's endurance and educate pt on fall prevention and energy conservationtechniques-pacing strategies and proper breathing techniques during functional tasks. CAMPAIGN MANAGEMENT SENIOR MANAGER to evaluate and treat patient?s cognition, language and communication skills, assess swallow function. Patient education Pressure ulcer prophylaxis; encourage mobilization, frequent postural changes, pressure-relief techniques DVT prophylaxis Encourage deep breathing exercise incentive spirometry. Monitor bladder. Toileting schedule. Continue current bladder management, with scans as needed and CIC if needed. Start bowel care program every day to obtain continence, prevent ileus. Maintain fall precautions Gait and balance retraining Provision of the necessary gait aids and functional adaptive equipment to enhance the patient's a functional jainism Encourage deep breathing exercises and incentive spirometry RD evaluation Ensure adequate nutrition and hydration Discharge planning. (2) History of stroke: (3) Accelerated hypertension: (4) UTI (urinary tract infection): (5) Altered mental status: Qualifiers: Altered mental status type: delirium Qualified Code(s): R41.0 - Disorientation, unspecified (6) Hyponatremia: (7) Impaired mobility and activities of daily living: Plan 83-year-old female with past medical history as above who presents to acute inpatient rehabilitation unit with functional impairments in the setting of hyponatremia, UTI and a possible seizure. * Noted, unremarkable. Sodium level improving, 133 this morning * Continue home Eliquis for DVT prophylaxis * Trend blood pressures. Adjust the regimen if necessary. * Monitor neurological status closely. Observe for recurrent seizures. Continue Keppra per neurology recommendations. Outpatient follow-up after discharge. * Completed levaquin for UTI * Trend sodium * Ambulatory 430''. Needs FI for d/c planning Patient education Pressure ulcer prophylaxis; encourage mobilization, frequent postural changes, pressure-relief techniques DVT prophylaxis Encourage deep breathing exercise incentive spirometry. Monitor bladder. Toileting schedule. Continue current bladder management, with scans as needed and CIC if needed. Start bowel care program every day to obtain continence, prevent ileus. Maintain fall precautions Gait and balance retraining Functional training and self-care and home management, including activities of daily living and instrumental activities of daily living Provision of the necessary gait aids and functional adaptive equipment to enhance the patient's a functional jainism Ensure adequate nutrition and hydration Sleep: No issues Pain: Reports no major discomfort. Continue as needed Tylenol. Discharge planning: Hopefully home in 7 to 10 days. I spent 26 minutes for services, including [id number] encounter with the patient, discussion of the case, plan of care, and exam; and [id number] activities, such as reviewing pertinent risk assessment consultant documentation, recent therapynotes, laboratory and radiology studies, and discussion of case with care team including physician, nursing, community case manager, and therapists. More than 50 % of time was spent on patient/family counseling or coordination ofcare. Documented By: Dev Jacobsen MD 1352 Signed By: <Electronically signed by Dev Jacobsen MD> 07/31/24 1352 [facility] Work Phone: [phone] 418-732905-05-2025 [place] [address] Physiatry(Rehab) Progress Note Signed Patient: Janelle Burt MR#: [id number] : 1940 Acct:[id number] Age/Sex: 83 / F Adm Date: 5 Loc: Room: [address] [place] [address] Type: ADM IN Attending Dr: Dev Jacobsen MD Copies to: ~ Date of Service: 07/31/2024 Subjective Subjective Narrative: Ms. Burt is a 83 year old female with PMH of CVA, hypoparathyroidism, HTN, HLD, stage III CKD, CAD, and A-fib presenting to acute inpatient rehab with functional impairments s/p new onset seizure. She was brought to the hospital on 07/22/2024 after a suspected seizure. Apparently she was not feeling well the day of the incident and had a fall in the bathroom with a head injury after which she has had some seizure-like activity. In the ER there was a concern for a CVA as the patient had some left- sided weakness. Initial CT head was nonacute. Labs notable for significant hyponatremia at 113, lactic acidosis at 4.0, mild leukocytosis, UA suspicious for UTI She underwent a brain MRI which was also nonacute demonstrating moderate chronicsmall vessel ischemic changes as well as mild central involutional changes. EEGwith no epileptiform activity and borderline background slowing. Patient was placed on prophylactic Keppra with neurology recommendation lisa outpatient follow-up. Palliative care was also consulted for goals of care. Patient's CODE STATUS changed to DNR CCA without intubation. Interval History: Seen and examined. She is doing well today. She offers no major concerns. Admitsto some right shoulder pain as well as some mild back pain, although states thatthese issues began prior to admission to the hospital. No chest pain, SOB, fever, chills. Therapy going well. Ambulating 430' SBA-CGA. Review of Systems Review of Systems All other systems reviewed & are negative unless noted below or in HPI Exam Physical Exam Vital Signs: Temp Pulse Resp BP Pulse Ox O2 Del Method 98.1 F 68 20 112/53 L 96 Room Air 07/31/24 05:58 07/31/24 08:55 07/31/24 08:55 07/31/24 08:55 07/31/24 08:55 07/31/24 11:15 Narrative: General: Awake, alert, oriented x3 HENT: Normal to inspection, normocephalic, atraumatic Eyes: PERRL, normal conjunctiva and sclera Neck: Normal ROM, normal visual inspection. Trachea midline. Cardio: Regular heart rate and rhythm Respiratory: Clear to auscultation bilaterally. Normal respiratory effort. No respiratory distress. GI: Abdomen soft, nontender, nondistended Neuro: CN II-XII intact. Strength 5/5, equal bilaterally Extremities: No edema, erythema, cyanosis Psych: Mood and affect appropriate. Normal speech. Objective Labs 07/31/24 04:25 07/31/24 04:25 Labs: Laboratory Results - last 24 hr 07/31/24 04:25 Corrected WBC 6.3 Uncorrected WBC Count 6.3 RBC 3.98 Hgb 12.2 Hct 35.2 MCV 88.6 MCH 30.6 MCHC 34.5 RDW 13.5 Plt Count 227 MPV 7.7 Neut % (Auto) 53.1 Lymph % (Auto) 28.6 [place] % (Auto) 13.4 Eos % (Auto) 4.0 Baso % (Auto) 0.9 Nucleat RBC Rel Count 0.1 Neut # (Auto) 3.3 Lymph # (Auto) 1.8 [place] # (Auto) 0.8 Eos # (Auto) 0.3 Baso # (Auto) 0.1 PHA Creatinine Clear 37.67 Sodium 133 L Potassium 3.9 Chloride 101 Carbon Dioxide 29.2 Anion Gap 6.7 BUN 24 Creatinine 0.96 Est GFR (CKD-EPI) 58.341 Glucose 93 Calcium 8.8 Medications and Allergies Allergies and Active Meds: Allergies amlodipine (From Norvasc) Allergy (Unknown, Verified 07/22/24 21:12) Unknown Reaction ciprofloxacin Allergy (Unknown, Verified 07/22/24 21:12) Comment:joint pain clonidine (From Catapres) Allergy (Unknown, Verified 07/22/24 21:12) Unknown Reaction hydralazine Allergy (Unknown, Verified 07/22/24 21:12) Unknown Reaction lisinopril Allergy (Unknown, Verified 07/22/24 21:12) Unknown Reaction methylprednisolone (From Medrol) Allergy (Unknown, Verified 07/22/24 21:12) Unknown Reaction Bcjzseh-ZOO-UdM Reductase Inhibitor (Vjmhseh-Xsq-Nct Reductase Inhibitor) Allergy (Unknown, Verified 07/22/24 21:12) Unknown Reaction Sulfa (Sulfonamide Antibiotics) Allergy (Unknown, Verified 07/22/24 21:12) Unknown Reaction Active Medications Generic Name Dose Route Start Last Admin Trade Name Freq PRN Reason Stop Dose Admin Acetaminophen 500 mg 07/25/24 17:25 07/27/24 19:58 Acetaminophen 500 Mg Tablet PO 07/25/25 17:24 500 mg Q4H PRN Administration Pain Al Hydrox/Mg Hydrox/Simethicone 30 ml 07/25/24 17:25 Mag Hydrox/Al Hydrox/Simeth 30 Ml Udc PO 07/25/25 17:24 Q4H PRN Indigestion Apixaban 5 mg 07/25/24 21:00 07/31/24 08:53 Apixaban 5 Mg Tablet PO 07/25/25 20:59 5 mg BID [place] Administration Aspirin 81 mg 07/26/24 09:00 07/31/24 08:53 Aspirin 81 Mg Tablet.Dr PO 07/26/25 08:59 81 mg DAILY [place] Administration Atorvastatin Calcium 40 mg 07/26/24 09:00 07/31/24 08:53 Atorvastatin 40 Mg Tablet PO 07/26/25 08:59 40 mg DAILY [place] Administration Bisacodyl 10 mg 07/25/24 17:25 Bisacodyl 10 Mg Supp.Rect AK 07/25/25 17:24 DAILY PRN Constipation Diclofenac Sodium 2 gm 07/27/24 05:27 Diclofenac Sodium 1% Gel 100 Gm Tube TOPICAL 07/27/25 08:59 TID PRN Pain Docusate Sodium 100 mg 07/25/24 17:25 Docusate 100 Mg Capsule PO 07/25/25 17:24 BID PRN Constipation Docusate Sodium 283 mg 07/25/24 17:25 Docusate Enema 283 Mg/5 Ml Enema AK 07/25/25 17:24 DAILY PRN Constipation Fenofibrate 48 mg 07/26/24 09:00 07/31/24 08:53 Fenofibrate Nanocrystallized 48 Mg Tablet PO 07/26/25 08:59 48 mg DAILY [place] Administration Lactulose 30 gm 07/25/24 17:25 Lactulose 20 Gm/30 Ml Udc PO 07/25/25 17:24 DAILY PRN Constipation Levetiracetam 500 mg 07/25/24 21:00 07/31/24 08:53 Levetiracetam 500 Mg Tablet PO 07/25/25 20:59 500 mg BID [place] Administration Levothyroxine Sodium 100 mcg 07/26/24 06:30 07/31/24 06:01 Levothyroxine 100 Mcg Tablet PO 07/26/25 06:29 100 mcg DAILY.0630 [place] Administration Metoprolol Tartrate 50 mg 07/29/24 21:00 07/31/24 08:53 Metoprolol Tartrate 50 Mg Tablet PO 07/29/25 20:59 50 mg BID [place] Administration Nitroglycerin 0.4 mg 07/25/24 17:31 Nitroglycerin 0.4 Mg Tab.Subl SUBLINGUAL 07/25/25 17:30 Q5M PRN chest pain Sennosides 17.2 mg 07/26/24 12:00 Sennosides 8.6 Mg Tablet PO 07/26/25 11:59 DAILY@12 PRN If no BM in 2 days Sodium Chloride 0 ml 07/25/24 17:25 Sodium Chloride 0.9 % 10 Ml Syringe IV-PUSH 07/25/25 17:24 PRN PRN Flush Valsartan 320 mg 07/31/24 09:00 07/31/24 08:53 Valsartan 320 Mg Tablet PO 07/31/25 08:59 320 mg DAILY [place] Administration Assessment/Plan Assessment/Plan (1) Seizure: Plan: PT to improve pt's strength, endurance, bed mobility, transfers (sit-stand), standing balance, gaitquality on level surfaces and stairs, coordination and functional ADL skills. Will also work to improve pt's safety awareness during transfers and ambulation. OT for basic ADL re-training (bathing, dressing, toileting, continence, grooming, feeding, transferring), to increase activity tolerance and functional mobility and to evaluate for adaptive and assistive devices. Will work to improve pt's endurance and educate pt on fall prevention and energy conser vationtechniques-pacing strategies and proper breathing techniques during functional tasks. CAMPAIGN MANAGEMENT SENIOR MANAGER to evaluate and treat patient?s cognition, language and communication skills, assess swallow function. Patient education Pressure ulcer prophylaxis; encourage mobilization, frequent postural changes, pressure-relief techniques DVT prophylaxis Encourage deep breathing exercise incentive spirometry. Monitor bladder. Toileting schedule. Continue current bladder management, with scans as needed and CIC if needed. Start bowel care program every day to obtain continence, prevent ileus. Maintain fall precautions Gait and balance retraining Provision of the necessary gait aids and functional adaptive equipment to enhance the patient's a functional jainism Encourage deep breathing exercises and incentive spirometry RD evaluation Ensure adequate nutrition and hydration Discharge planning. (2) History of stroke: (3) Accelerated hypertension: (4) UTI (urinary tract infection): (5) Altered mental status: Qualifiers: Altered mental status type: delirium Qualified Code(s): R41.0 - Disorientation, unspecified (6) Hyponatremia: (7) Impaired mobility and activities of daily living: Plan 83-year-old female with past medical history as above who presents to acute inpatient rehabilitation unit with functional impairments in the setting of hyponatremia, UTI and a possible seizure. * Noted, unremarkable. Sodium level improving, 133 this morning * Continue home Eliquis for DVT prophylaxis * Trend blood pressures. Adjust the regimen if necessary. * Monitor neurological status closely. Observe for recurrent seizures. Continue Keppra per neurology recommendations. Outpatient follow-up after discharge. * Completed levaquin for UTI * Trend sodium * Ambulatory 430''. Needs FI for d/c planning Patient education Pressure ulcer prophylaxis; encourage mobilization, frequent postural changes, pressure-relief techniques DVT prophylaxis Encourage deep breathing exercise incentive spirometry. Monitor bladder. Toileting schedule. Continue current bladder management, with scans as needed and CIC if needed. Start bowel care program every day to obtain continence, prevent ileus. Maintain fall precautions Gait and balance retraining Functional training and self-care and home management, including activities of daily living and instrumental activities of daily living Provision of the necessary gait aids and functional adaptive equipment to enhance the patient's a functional jainism Ensure adequate nutrition and hydration Sleep: No issues Pain: Reports no major discomfort. Continue as needed Tylenol. Discharge planning: Hopefully home in 7 to 10 days. I spent 26 minutes for services, including [id number] encounter with the patient, discussion of the case, plan of care, and exam; and [id number] activities, such as reviewing pertinent risk assessment consultant documentation, recent therapynotes, laboratory and radiology studies, and discussion of case with care team including physician, nursing, community case manager, and therapists. More than 50 % of time was spent on patient/family counseling or coordination ofcare. Documented By: Dev Jacobsen MD 1350 Signed By: 07/31/24 0902 [facility]05-03-2025 Progress note Author Jhon Abreu [facility] Note Date/Time July 28, 2024 11:45p m [facility] [address] [place] [address] Physiatry(Rehab) Progress Note Signed Patient: Janelle Burt MR#: [id number] : 1940 Acct:[id number] Age/Sex: 83 / F Adm Date: 5 Loc: Room: 1H9227-4 Type: ADM IN Attending Dr: Dev Jacobsen MD Copies to: ~ Date of Service: 07/28/2024 Subjective Subjective Narrative: Ms. Burt is a 83 year old female with PMH of CVA, hypoparathyroidism, HTN, HLD, stage III CKD, CAD, and A-fib presenting to acute inpatient rehab with functional impairments s/p new onset seizure. She was brought to the hospital on 07/22/2024 after a suspected seizure. Apparently she was not feeling well the day of the incident and had a fall in the bathroom with a head injury after which she has had some seizure-like activity. In the ER there was a concern for a CVA as the patient had some left-sided weakness. Initial CT head was nonacute. Labs notable for significant hyponatremia at 113, lactic acidosis at 4.0, mild leukocytosis, UA suspicious for UTI She underwent a brain MRI which was also nonacute demonstrating moderate chronicsmall vessel ischemic changes as well as mild central involutional changes. EEGwith no epileptiform activity and borderline background slowing. Patient was placed on prophylactic Keppra with neurology recommendation for an outpatient follow-up. Palliative care was also consulted for goals of care. Patient's CODE STATUS changed to DNR CCA without intubation. Interval History: Seen and examined. Improving relatively quickly. Still with mild deficits. No new seizure activity. Can probably d/c telesitter soon. Review of Systems Review of Systems All other systems reviewed & are negative unless noted below or in HPI Exam Physical Exam Vital Signs: Temp Pulse Resp BP Pulse Ox O2 Del Method 97.8 F 65 15 175/74 H 97 Room Air 07/28/24 21:21 07/28/24 23:09 07/28/24 23:09 07/28/24 23:09 07/28/24 23:09 07/28/24 23:09 Narrative: General: Awake, alert, oriented x3 HENT: Normal to inspection, normocephalic, atraumatic Eyes: PERRL, normal conjunctiva and sclera Neck: Normal ROM, normal visual inspection. Trachea midline. Cardio: Regular heart rate and rhythm Respiratory: Clear to auscultation bilaterally. Normal respiratory effort. No respiratory distress. GI: Abdomen soft, nontender, nondistended, active bowel sounds x4 quadrants Neuro: CN II-XII intact. Strength 5/5, equal bilaterally Extremities: No edema, erythema, cyanosis Psych: Mood and affect appropriate. Normal speech. Objective Labs 07/26/24 04:44 07/26/24 04:44 Medications and Allergies Allergies and Active Meds: Allergies amlodipine (From Norvasc) Allergy (Unknown, Verified 07/22/24 21:12) Unknown Reaction ciprofloxacin Allergy (Unknown, Verified 07/22/24 21:12) Comment:joint pain clonidine (From Catapres) Allergy (Unknown, Verified 07/22/24 21:12) Unknown Reaction hydralazine Allergy (Unknown, Verified 07/22/24 21:12) Unknown Reaction lisinopril Allergy (Unknown, Verified 07/22/24 21:12) Unknown Reaction methylprednisolone (From Medrol) Allergy (Unknown, Verified 07/22/24 21:12) Unknown Reaction Xhhoikw-EZS-NaH Reductase Inhibitor (Rlcqaaf-Jgr-Gqq Reductase Inhibitor) Allergy (Unknown, Verified 07/22/24 21:12) Unknown Reaction Sulfa (Sulfonamide Antibiotics) Allergy (Unknown, Verified 07/22/24 21:12) Unknown Reaction Active Medications Generic Name Dose Route Start Last Admin Trade Name Freq PRN Reason Stop Dose Admin Acetaminophen 500 mg 07/25/24 17:25 07/27/24 19:58 Acetaminophen 500 Mg Tablet PO 07/25/25 17:24 500 mg Q4H PRN Administration Pain Al Hydrox/Mg Hydrox/Simethicone 30 ml 07/25/24 17:25 Mag Hydrox/Al Hydrox/Simeth 30 Ml Udc PO 07/25/25 17:24 Q4H PRN Indigestion Apixaban 5 mg 07/25/24 21:00 07/28/24 21:22 Apixaban 5 Mg Tablet PO 07/25/25 20:59 5 mg BID CL[place] Administration Aspirin 81 mg 07/26/24 09:00 07/28/24 08:23 Aspirin 81 Mg Tablet. PO 07/26/25 08:59 81 mg DAILY CL[place] Administration Atorvastatin Calcium 40 mg 07/26/24 09:00 07/28/24 08:23 Atorvastatin 40 Mg Tablet PO 07/26/25 08:59 40 mg DAILY [place] Administration Bisacodyl 10 mg 07/25/24 17:25 Bisacodyl 10 Mg Supp.Rect AK 07/25/25 17:24 DAILY PRN Constipation Diclofenac Sodium 2 gm 07/27/24 05:27 Diclofenac Sodium 1% Gel 100 Gm Tube TOPICAL 07/27/25 08:59 TID PRN Pain Docusate Sodium 100 mg 07/25/24 17:25 Docusate 100 Mg Capsule PO 07/25/25 17:24 BID PRN Constipation Docusate Sodium 283 mg 07/25/24 17:25 Docusate Enema 283 Mg/5 Ml Enema AK 07/25/25 17:24 DAILY PRN Constipation Fenofibrate 48 mg 07/26/24 09:00 07/28/24 08:23 Fenofibrate Nanocrystallized 48 Mg Tablet PO 07/26/25 08:59 48 mg DAILY [place] Administration Lactulose 30 gm 07/25/24 17:25 Lactulose 20 Gm/30 Ml Udc PO 07/25/25 17:24 DAILY PRN Constipation Levetiracetam 500 mg 07/25/24 21:00 07/28/24 21:22 Levetiracetam 500 Mg Tablet PO 07/25/25 20:59 500 mg BID CL[place] Administration Levothyroxine Sodium 100 mcg 07/26/24 06:30 07/28/24 05:30 Levothyroxine 100 Mcg Tablet PO 07/26/25 06:29 Not Given DAILY.0630 CLIFTON Metoprolol Tartrate 25 mg 07/25/24 21:00 07/28/24 21:22 Metoprolol Tartrate 25 Mg Tablet PO 07/25/25 20:59 25 mg BID CL[place] Administration Nitroglycerin 0.4 mg 07/25/24 17:31 Nitroglycerin 0.4 Mg Tab.Subl SUBLINGUAL 07/25/25 17:30 Q5M PRN chest pain Sennosides 17.2 mg 07/26/24 12:00 Sennosides 8.6 Mg Tablet PO 07/26/25 11:59 DAILY@12 PRN If no BM in 2 days Sodium Chloride 0 ml 07/25/24 17:25 Sodium Chloride 0.9 % 10 Ml Syringe IV-PUSH 07/25/25 17:24 PRN PRN Flush Valsartan 160 mg 07/26/24 09:00 07/28/24 08:23 Valsartan 160 Mg Tablet PO 07/26/25 08:59 160 mg DAILY CLIFTON Administration Assessment/Plan Assessment/Plan (1) Seizure: Plan: PT to improve pt's strength, endurance, bed mobility, transfers (sit-stand), standing balance, gait quality on level surfaces and stairs, coordination and functional ADL skills. Will also work to improve pt's safety awareness during transfers and ambulation. OT for basic ADL re-training (bathing, dressing, toileting, continence, grooming, feeding, transferring), to increase activity tolerance and functional mobility and to evaluate for adaptive and assistive devices. Will work to improve pt's endurance and educate pt on fall prevention and energy conservationtechniques-pacing strategies and proper breathing techniques during functional tasks. CAMPAIGN MANAGEMENT SENIOR MANAGER to evaluate and treat patient?s cognition, language and communication skills, assess swallow function. Patient education Pressure ulcer prophylaxis; encourage mobilization, frequent postural changes, pressure-relief techniques DVT prophylaxis Encourage deep breathing exercise incentive spirometry. Monitor bladder. Toileting schedule. Continue current bladder management, with scans as needed and CIC if needed. Start bowel care program every day to obtain continence, prevent ileus. Maintain fall precautions Gait and balance retraining Provision of the necessary gait aids and functional adaptive equipment to enhance the patient's a functional jainism Encourage deep breathing exercises and incentive spirometry RD evaluation Ensure adequate nutrition and hydration Discharge planning. (2) History of stroke: (3) Accelerated hypertension: (4) UTI (urinary tract infection): (5) Altered mental status: Qualifiers: Altered mental status type: delirium Qualified Code(s): R41.0 - Disorientation, unspecified (6) Hyponatremia: (7) Impaired mobility and activities of daily living: Plan 83-year-old female with past medical history as above who presents to acute inpatient rehabilitation unit with functional impairments in the setting of hyponatremia, UTI and a possible seizure. * Noted, unremarkable. Sodium level improving, 133 this morning * Continue home Eliquis for DVT prophylaxis * Trend blood pressures. Adjust the regimen if necessary. * Monitor neurological status closely. Observe for recurrent seizures. Continue Keppra per neurology recommendations. Outpatient follow-up after discharge. * Completed levaquin for UTI * Trend sodium, check CBC/BMP Wednesday * Ambulatory 235'. Needs FI for d/c planning Patient education Pressure ulcer prophylaxis; encourage mobilization, frequent postural changes, pressure-relief techniques DVT prophylaxis Encourage deep breathing exercise incentive spirometry. Monitor bladder. Toileting schedule. Continue current bladder management, with scans as needed and CIC if needed. Start bowel care program every day to obtain continence, prevent ileus. Maintain fall precautions Gait and balance retraining Functional training and self-care and home management, including activities of daily living and instrumental activities of daily living Provision of the necessary gait aids and functional adaptive equipment to enhance the patient's a functional jainism Ensure adequate nutrition and hydration Sleep: No issues Pain: Reports no major discomfort. Continue as needed Tylenol. Discharge planning: Hopefully home in 7 to 10 days. I spent 26 minutes for services, including gntb-[id number] encounter with the patient, discussion of the case, plan of care, and exam; and uuszcid-py-omit activities, such as reviewing pertinent risk assessment consultant documentation, recent therapynotes, laboratory and radiology studies, and discussion of case with care team including physician, nursing, community case manager, and therapists. More than 50 % of time was spent on patient/family counseling or coordination ofcare. Documented By: Jhon Abreu MD 07/28/242342 Signed By: <Electronically signed by Jhon Abreu MD> 07/28/248 [facility] Work Phone: [phone]) 370-605605-02-2025 Consult note Author Luz Marina Gonzalez [facility] Note Date/Time July 28, 2024 9:51pm [facility] [address] [place] [address] Hospitalist Consult Note Signed Patient: Janelle Burt MR#: [id number] : 1940 Acct:[id number] Age/Sex: 83 / F Adm Date: 5 Loc: Room: [address] [place] [address] Type: ADM IN Attending Dr: Dev Jacobsen MD Copies to: MD Luz Marina Kimble APRN Marcia E Braun, MD Mohamad Akil, MD~ HPI DATE OF CONSULTATION: 07/26/24 REQUESTING PROVIDER: Dev Jacobsen Consult Narrative Reason for Consult: Hypertension HPI: Ms. Burt is a 83 year old female with PMHx of CVA, hypoparathyroidism, HTN, HLD, stage III CKD, CAD, and A-fib who presented to the emergency department on 07/22/2024 due to seizure-like activity. She had not been feeling well a day prior to presenting and had fallen in the bathroom with a head injury which she had some seizure- like activity with. In the ER she was noted to have some left-sided weakness and altered mental status. Later in ER she developed a generalized witnessed seizure and was started on keppra. Her blood pressure wasnoted to be very elevated. She was admitted to ICU and started on nicardipine gtt with concern for PRESS. She did not require intubation. She was weaned off nicardipine gtt, mentation returned to baseline. Routine EEG showed borderline slowing, otherwise unremarkable. She was seen and evaluated by neurology who suspected new onset seizures and continued keppra therapy. MRI showed no acute findings, suspected seizure from right occipital gliosis and encephalomalacia from her chronic ischemic stroke Although asymptomatic, patient family requested treatment of pseudomonas in urine (< 10 K cfu), she completed 3 day course of levofloxacin with 2 additional days on oral. She willfollow-up with neurology outpatient. Palliative care was also consulted for goals of care and her CODE STATUS changed to DNR CCA without intubation. She was evaluated by PT/OT and recommended acute inpatient rehabilitation. The hospitalist team has been consulted for medical management of hypertension. Patient seen and examined. Denies chest pain or palpitation. No cough, dyspnea, or pain with inspiration. No abdominal pain or indigestion, constipation or diarrhea, nausea or vomiting. No dysuria or retention. No headache or dizziness. No fevers Review of Systems Review of Systems Review of systems: 10 point review of systems obtained, negative unless noted in the HPI below [facility] Medical History Ischemic cerebral vascular accident (CVA) due to stenosis of large extracranial artery Fracture of left foot Retina disorder, left History of left heart catheterization (LHC) Hypoparathyroidism Hypertension Hyperlipidemia Cataract Secondary hyperparathyroidism Hypothyroidism, unspecified Hypertensive chronic kidney disease with stage 1 through stage 4 chronic kidney disease, or unspecified chronic kidney disease History of falling Essential (primary) hypertension Elevated blood pressure reading Dyslipidemia CKD (chronic kidney disease) stage 4, GFR 15-29 ml/min Chronic kidney disease, stage 3 unspecified Cervical cancer CAD in [place] artery Bronchitis, not specified as acute or chronic 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 Cataract Hypertension Surgical History History of partial hysterectomy History of appendectomy S/P partial hysterectomy Family History Father Stroke Mother Stroke Sister Breast cancer Myocardial infarction Daughter Cancer Legacy FamHx Relation: Daughter(s); Legacy FamHx Problem: Diagnosed with Cancer Father History of stroke Legacy FamHx Problem: Diagnosed with Stroke Mother History of stroke Legacy FamHx Problem: Diagnosed with Stroke Sister Cancer Legacy FamHx Problem: Diagnosed with Cancer Heart disease Social History Smoking Status: Former smoker Substance Use Type: None Meds Medications and Allergies Allergies amlodipine (From Norvasc) Allergy (Unknown, Verified 07/22/24 21:12) Unknown Reaction ciprofloxacin Allergy (Unknown, Verified 07/22/24 21:12) Comment:joint pain clonidine (From Catapres) Allergy (Unknown, Verified 07/22/24 21:12) Unknown Reaction hydralazine Allergy (Unknown, Verified 07/22/24 21:12) Unknown Reaction lisinopril Allergy (Unknown, Verified 07/22/24 21:12) Unknown Reaction methylprednisolone (From Medrol) Allergy (Unknown, Verified 07/22/24 21:12) Unknown Reaction Dgxgmnt-AEI-XzA Reductase Inhibitor (Kxlupbk-Jqp-Xxo Reductase Inhibitor) Allergy (Unknown, Verified 07/22/24 21:12) Unknown Reaction Sulfa (Sulfonamide Antibiotics) Allergy (Unknown, Verified 07/22/24 21:12) Unknown Reaction Home Medications aspirin 81 mg tablet,delayed release (Neli Low Dose Aspirin) 81 mg PO DAILY 03/12/17 [History Confirmed 07/25/24] fenofibrate 54 mg tablet 54 mg PO DAILY 03/12/17 [History Confirmed 07/25/24] nitroglycerin 0.4 mg sublingual tablet 0.4 mg sublingual Q5M PRN chest pain 30 days #25 tabs 01/28/23 [Rx Confirmed 07/25/24] metoprolol tartrate 25 mg tablet 25 mg PO BID #60 tabs 01/29/23 [Rx Confirmed 07/25/24] atorvastatin 40 mg tablet 40 mg PO DAILY 03/14/24 [History Confirmed 07/25/24] levothyroxine 100 mcg tablet 100 mcg PO DAILY 03/28/24 [History Confirmed 07/25/24] apixaban 5 mg tablet (Eliquis) 5 mg PO BID #54 tabs 05/22/24 [Rx Confirmed 07/25/24] valsartan 160 mg tablet 160 mg PO DAILY 05/22/24 [History Confirmed 07/25/24] levetiracetam 500 mg tablet 500 mg PO BID 30 days #60 tabs 07/25/24 [Rx Confirmed 07/25/24] levofloxacin 250 mg tablet 250 mg PO DAILY 2 days #2 tabs 07/25/24 [Rx Confirmed 07/25/24] Active Medications: Active Medications Generic Name Dose Route Start Last Admin Trade Name Freq PRN Reason Stop Dose Admin Acetaminophen 500 mg 07/25/24 17:25 Acetaminophen 500 Mg Tablet PO 07/25/25 17:24 Q4H PRN Pain Al Hydrox/Mg Hydrox/Simethicone 30 ml 07/25/24 17:25 Mag Hydrox/Al Hydrox/Simeth 30 Ml Udc PO 07/25/25 17:24 Q4H PRN Indigestion Apixaban 5 mg 07/25/24 21:00 07/26/24 08:46 Apixaban 5 Mg Tablet PO 07/25/25 20:59 5 mg BID CLIFTON Administration Aspirin 81 mg 07/26/24 09:00 07/26/24 08:46 Aspirin 81 Mg Tablet.Dr PO 07/26/25 08:59 81 mg DAILY CL[place]ON Administration Atorvastatin Calcium 40 mg 07/26/24 09:00 07/26/24 08:47 Atorvastatin 40 Mg Tablet PO 07/26/25 08:59 40 mg DAILY [place] Administration Bisacodyl 10 mg 07/25/24 17:25 Bisacodyl 10 Mg Supp.Rect AK 07/25/25 17:24 DAILY PRN Constipation Docusate Sodium 100 mg 07/25/24 17:25 Docusate 100 Mg Capsule PO 07/25/25 17:24 BID PRN Constipation Docusate Sodium 283 mg 07/25/24 17:25 Docusate Enema 283 Mg/5 Ml Enema AK 07/25/25 17:24 DAILY PRN Constipation Fenofibrate 48 mg 07/26/24 09:00 07/26/24 08:46 Fenofibrate Nanocrystallized 48 Mg Tablet PO 07/26/25 08:59 48 mg DAILY CL[place] Administration Lactulose 30 gm 07/25/24 17:25 Lactulose 20 Gm/30 Ml Udc PO 07/25/25 17:24 DAILY PRN Constipation Levetiracetam 500 mg 07/25/24 21:00 07/26/24 08:47 Levetiracetam 500 Mg Tablet PO 07/25/25 20:59 500 mg BID [place] Administration Levofloxacin 250 mg 07/26/24 09:00 07/26/24 08:46 Levofloxacin 250 Mg Tablet PO 07/27/24 09:01 250 mg DAILY [place] Administration Levothyroxine Sodium 100 mcg 07/26/24 06:30 07/26/24 05:38 Levothyroxine 100 Mcg Tablet PO 07/26/25 06:29 100 mcg DAILY.0630 [place]ON Administration Metoprolol Tartrate 25 mg 07/25/24 21:00 07/26/24 08:47 Metoprolol Tartrate 25 Mg Tablet PO 07/25/25 20:59 25 mg BID CL[place] Administration Nitroglycerin 0.4 mg 07/25/24 17:31 Nitroglycerin 0.4 Mg Tab.Subl SUBLINGUAL 07/25/25 17:30 Q5M PRN chest pain Sennosides 17.2 mg 07/26/24 12:00 Sennosides 8.6 Mg Tablet PO 07/26/25 11:59 DAILY@12 PRN If no BM in 2 days Sodium Chloride 0 ml 07/25/24 17:25 Sodium Chloride 0.9 % 10 Ml Syringe IV-PUSH 07/25/25 17:24 PRN PRN Flush Sodium Chloride 10 ml 07/26/24 09:00 07/26/24 08:47 Sodium Chloride 0.9 % 10 Ml Syringe IV-PUSH 07/26/25 08:59 10 ml BID [place] Administration Valsartan 160 mg 07/26/24 09:00 07/26/24 08:46 Valsartan 160 Mg Tablet PO 07/26/25 08:59 160 mg DAILY CL[place]ON Administration Exam Physical Exam Vital Signs: Temp Pulse Resp BP Pulse Ox O2 Del Method 97.8 F 70 20 139/79 98 Room Air 07/26/24 16:00 07/26/24 16:00 07/26/24 16:00 07/26/24 16:00 07/26/24 16:00 07/26/24 16:00 Narrative: CONST- Appears well -developed and well nourished No acute distress. HEAD - Normocephalic and atraumatic EENT?Sclera nonicteric and conjunctive are nonerythemic, moist oral mucosa, pharynx clear NECK?Supple, no cervical lymphadenopathy CARDIAC?normal rate, regular rhythm, normal S1 & S2. PULM?diminished without wheeze or rhonchi, RA, no accessory muscle use or cough noted ABD ? Soft. Bowel sounds are normal. No distention No tenderness EXTREM?no edema BLE calves nontender SKIN? W/D good turgo MS- MAEX4 spontaneously with equal with equal strength NEURO? A&Ox3 speech clear and tongue midline, equal facial symmetry no focal motor deficits PSYCH?Mood, affect and behavior appropriate Results - Hospitalist Consult Lab Results Labs: Laboratory Results - last 72 hr 07/26/24 04:44: Corrected WBC 6.7, Uncorrected WBC Count 6.7, RBC 4.07, Hgb 12.7, Hct 35.6, MCV 87.4, MCH 31.1, MCHC 35.6 H, RDW 13.1, Plt Count 210, MPV 8.0, Neut % (Auto) 57.6, Lymph % (Auto) 27.9, [place] % (Auto) 11.3, Eos % (Auto) 2.3, Baso % (Auto) 0.9, Nucleat RBC Rel Count 0.1, Neut # (Auto) 3.9, Lymph # (Auto) 1.9, [place] # (Auto) 0.8, Eos # (Auto) 0.2, Baso # (Auto) 0.1, PHA Creatinine Clear 33.18, Sodium 133 L, Potassium 3.7, Chloride 100, Carbon Dioxide 26.0, Anion Gap 10.7, BUN 15, Creatinine 1.09, Est GFR (CKD-EPI) 50.094,Glucose 98, Calcium 8.9, Total Bilirubin 0.8, AST 25, ALT 11, Alkaline Phosphatase 48, Total Protein 5.9 L, Albumin 3.4 L, Globulin 2.5, Albumin/Globulin Ratio 1.4, Prealbumin 14.8 L Assessment & Plan Assessment/Plan (1) Seizure: (2) Accelerated hypertension: (3) Impaired mobility and activities of daily living: Plan New Onset Seizure with concern for status epilepticus Impaired mobility and activities of daily living ?Plan of care for rehabilitation, PT/OT, DVT prophylaxis, bowel regimen per PM&Rteam ?On Keppra 500 mg p.o. twice daily and will follow-up with neurology outpatient Pseudomonas UTI?on Levaquin 250 mg p.o. x 2 doses Chronic conditions: 1.Paroxysmal A-fib/HTN?on apixaban, metoprolol, valsartan?blood pressure has been uncontrolled, improved this afternoon we will continue to monitor and adjust medications 2. Hypothyroidism?on levothyroxine 3. Hyperlipidemia?on atorvastatin, fenofibrate 4. CVA with residual left visual field deficits Documented By: Luz Marina Gonzalez APRN 07/26/24 1623 Signed By: <Electronically signed by AIMEE Gonzalez> 07/26/24 1656 <Electronically signed by Jon Felder MD> 07/28/24 2157 [facility] Work Phone: [phone]) 138-276705-02-2025 [place] [address] Physiatry(Rehab) Progress Note Signed Patient: Janelle Burt MR#: [id number] : 1940 Acct:[id number] Age/Sex: 83 / F Adm Date: 5 Loc: Room: [address] [place] [address] Type: ADM IN Attending Dr: Dev Jacobsen MD Copies to: ~ Date of Service: 07/28/2024 Subjective Subjective Narrative: Ms. Burt is a 83 year old female with PMH of CVA, hypoparathyroidism, HTN, HLD, stage III CKD, CAD, and A-fib presenting to acute inpatient rehab with functional impairments s/p new onset seizure. She was brought to the hospital on 07/22/2024 after a suspected seizure. Apparently she was not feeling well the day of the incident and had a fall in the bathroom with a head injury after which she has had some seizure-like activity. In the ER there was a concern for a CVA as the patient had some left- sided weakness. Initial CT head was nonacute. Labs notable for significant hyponatremia at 113, lactic acidosis at 4.0, mild leukocytosis, UA suspicious for UTI She underwent a brain MRI which was also nonacute demonstrating moderate chronicsmall vessel ischemic changes as well as mild central involutional changes. EEGwith no epileptiform activity and borderline background slowing. Patient was placed on prophylactic Keppra with neurology recommendation lisa outpatient follow-up. Palliative care was also consulted for goals of care. Patient's CODE STATUS changed to DNR CCA without intubation. Interval History: Seen and examined. Improving relatively quickly. Still with mild deficits. No new seizure activity.Can probably d/c telesitter soon. Review of Systems Review of Systems All other systems reviewed & are negative unless noted below or in HPI Exam Physical Exam Vital Signs: Temp Pulse Resp BP Pulse Ox O2 Del Method 97.8 F 65 15 175/74 H 97 Room Air 07/28/24 21:21 07/28/24 23:09 07/28/24 23:09 07/28/24 23:09 07/28/24 23:09 07/28/24 23:09 Narrative: General: Awake, alert, oriented x3 HENT: Normal to inspection, normocephalic, atraumatic Eyes: PERRL, normal conjunctiva and sclera Neck: Normal ROM, normal visual inspection. Trachea midline. Cardio: Regular heart rate and rhythm Respiratory: Clear to auscultation bilaterally. Normal respiratory effort. No respiratory distress. GI: Abdomen soft, nontender, nondistended, active bowel sounds x4 quadrants Neuro: CN II-XII intact. Strength 5/5, equal bilaterally Extremities: No edema, erythema, cyanosis Psych: Mood and affect appropriate. Normal speech. Objective Labs 07/26/24 04:44 07/26/24 04:44 Medications and Allergies Allergies and Active Meds: Allergies amlodipine (From Norvasc) Allergy (Unknown, Verified 07/22/24 21:12) Unknown Reaction ciprofloxacin Allergy (Unknown, Verified 07/22/24 21:12) Comment:joint pain clonidine (From Catapres) Allergy (Unknown, Verified 07/22/24 21:12) Unknown Reaction hydralazine Allergy (Unknown, Verified 07/22/24 21:12) Unknown Reaction lisinopril Allergy (Unknown, Verified 07/22/24 21:12) Unknown Reaction methylprednisolone (From Medrol) Allergy (Unknown, Verified 07/22/24 21:12) Unknown Reaction Ozwfwcy-BIF-JdS Reductase Inhibitor (Owxpbrz-Poo-Tkj Reductase Inhibitor) Allergy (Unknown, Verified 07/22/24 21:12) Unknown Reaction Sulfa (Sulfonamide Antibiotics) Allergy (Unknown, Verified 07/22/24 21:12) Unknown Reaction Active Medications Generic Name Dose Route Start Last Admin Trade Name Freq PRN Reason Stop Dose Admin Acetaminophen 500 mg 07/25/24 17:25 07/27/24 19:58 Acetaminophen 500 Mg Tablet PO 07/25/25 17:24 500 mg Q4H PRN Administration Pain Al Hydrox/Mg Hydrox/Simethicone 30 ml 07/25/24 17:25 Mag Hydrox/Al Hydrox/Simeth 30 Ml Udc PO 07/25/25 17:24 Q4H PRN Indigestion Apixaban 5 mg 07/25/24 21:00 07/28/24 21:22 Apixaban 5 Mg Tablet PO 07/25/25 20:59 5 mg BID [place] Administration Aspirin 81 mg 07/26/24 09:00 07/28/24 08:23 Aspirin 81 Mg Tablet.Dr PO 07/26/25 08:59 81 mg DAILY [place] Administration Atorvastatin Calcium 40 mg 07/26/24 09:00 07/28/24 08:23 Atorvastatin 40 Mg Tablet PO 07/26/25 08:59 40 mg DAILY [place] Administration Bisacodyl 10 mg 07/25/24 17:25 Bisacodyl 10 Mg Supp.Rect AK 07/25/25 17:24 DAILY PRN Constipation Diclofenac Sodium 2 gm 07/27/24 05:27 Diclofenac Sodium 1% Gel 100 Gm Tube TOPICAL 07/27/25 08:59 TID PRN Pain Docusate Sodium 100 mg 07/25/24 17:25 Docusate 100 Mg Capsule PO 07/25/25 17:24 BID PRN Constipation Docusate Sodium 283 mg 07/25/24 17:25 Docusate Enema 283 Mg/5 Ml Enema AK 07/25/25 17:24 DAILY PRN Constipation Fenofibrate 48 mg 07/26/24 09:00 07/28/24 08:23 Fenofibrate Nanocrystallized 48 Mg Tablet PO 07/26/25 08:59 48 mg DAILY [place] Administration Lactulose 30 gm 07/25/24 17:25 Lactulose 20 Gm/30 Ml Udc PO 07/25/25 17:24 DAILY PRN Constipation Levetiracetam 500 mg 07/25/24 21:00 07/28/24 21:22 Levetiracetam 500 Mg Tablet PO 07/25/25 20:59 500 mg BID [place] Administration Levothyroxine Sodium 100 mcg 07/26/24 06:30 07/28/24 05:30 Levothyroxine 100 Mcg Tablet PO 07/26/25 06:29 Not Given DAILY.0630 [facility] Metoprolol Tartrate 25 mg 07/25/24 21:00 07/28/24 21:22 Metoprolol Tartrate 25 Mg Tablet PO 07/25/25 20:59 25 mg BID CL[place] Administration Nitroglycerin 0.4 mg 07/25/24 17:31 Nitroglycerin 0.4 Mg Tab.Subl SUBLINGUAL 07/25/25 17:30 Q5M PRN chest pain Sennosides 17.2 mg 07/26/24 12:00 Sennosides 8.6 Mg Tablet PO 07/26/25 11:59 DAILY@12 PRN If no BM in 2 days Sodium Chloride 0 ml 07/25/24 17:25 Sodium Chloride 0.9 % 10 Ml Syringe IV-PUSH 07/25/25 17:24 PRN PRN Flush Valsartan 160 mg 07/26/24 09:00 07/28/24 08:23 Valsartan 160 Mg Tablet PO 07/26/25 08:59 160 mg DAILY CL[facility]ON Administration Assessment/Plan Assessment/Plan (1) Seizure: Plan: PT to improve pt's strength, endurance, bed mobility, transfers (sit-stand), standing balance, gaitquality on level surfaces and stairs, coordination and functional ADL skills. Will also work to improve pt's safety awareness during transfers and ambulation. OT for basic ADL re-training (bathing, dressing, toileting, continence, grooming, feeding, transferring), to increase activity tolerance and functional mobility and to evaluate for adaptive and assistive devices. Will work to improve pt's endurance and educate pt on fall prevention and energy conser vationtechniques-pacing strategies and proper breathing techniques during functional tasks. CAMPAIGN MANAGEMENT SENIOR MANAGER to evaluate and treat patient?s cognition, language and communication skills, assess swallow function. Patient education Pressure ulcer prophylaxis; encourage mobilization, frequent postural changes, pressure-relief techniques DVT prophylaxis Encourage deep breathing exercise incentive spirometry. Monitor bladder. Toileting schedule. Continue current bladder management, with scans as needed and CIC if needed. Start bowel care program every day to obtain continence, prevent ileus. Maintain fall precautions Gait and balance retraining Provision of the necessary gait aids and functional adaptive equipment to enhance the patient's a functional jainism Encourage deep breathing exercises and incentive spirometry RD evaluation Ensure adequate nutrition and hydration Discharge planning. (2) History of stroke: (3) Accelerated hypertension: (4) UTI (urinary tract infection): (5) Altered mental status: Qualifiers: Altered mental status type: delirium Qualified Code(s): R41.0 - Disorientation, unspecified (6) Hyponatremia: (7) Impaired mobility and activities of daily living: Plan 83-year-old female with past medical history as above who presents to acute inpatient rehabilitation unit with functional impairments in the setting of hyponatremia, UTI and a possible seizure. * Noted, unremarkable. Sodium level improving, 133 this morning * Continue home Eliquis for DVT prophylaxis * Trend blood pressures. Adjust the regimen if necessary. * Monitor neurological status closely. Observe for recurrent seizures. Continue Keppra per neurology recommendations. Outpatient follow-up after discharge. * Completed levaquin for UTI * Trend sodium, check CBC/BMP Wednesday * Ambulatory 235'. Needs FI for d/c planning Patient education Pressure ulcer prophylaxis; encourage mobilization, frequent postural changes, pressure-relief techniques DVT prophylaxis Encourage deep breathing exercise incentive spirometry. Monitor bladder. Toileting schedule. Continue current bladder management, with scans as needed and CIC if needed. Start bowel care program every day to obtain continence, prevent ileus. Maintain fall precautions Gait and balance retraining Functional training and self-care and home management, including activities of daily living and instrumental activities of daily living Provision of the necessary gait aids and functional adaptive equipment to enhance the patient's a functional jainism Ensure adequate nutrition and hydration Sleep: No issues Pain: Reports no major discomfort. Continue as needed Tylenol. Discharge planning: Hopefully home in 7 to 10 days. I spent 26 minutes for services, including jviy-jg-hnsa encounter with the patient, discussion of the case, plan of care, and exam; and cpupemu-cw-qgkn activities, such as reviewing pertinent risk assessment consultant documentation, recent therapynotes, laboratory and radiology studies, and discussion of case with care team including physician, nursing, community case manager, and therapists. More than 50 % of time was spent on patient/family counseling or coordination ofcare. Documented By: Jhon Abreu MD 07/28/242342 Signed By: 07/28/24 2345 [facility]05-02-2025 [place] [address] Hospitalist Consult Note Signed Patient: Janelle Burt MR#: [id number] : 1940 Acct:[id number] Age/Sex: 83 / F Adm Date: 5 Loc: Room: [address] [place] [address] Type: ADM IN Attending Dr: Dev Jacobsen MD Copies to: MD Luz Marina Kimble APRN Marcia E Braun, MD Mohamad Akil, MD~ HPI DATE OF CONSULTATION: 07/26/24 REQUESTING PROVIDER: Dev Jacobsen Consult Narrative Reason for Consult: Hypertension HPI: Ms. Burt is a 83 year old female with PMHx of CVA, hypoparathyroidism, HTN, HLD, stage III CKD, CAD, and A-fib who presented to the emergency department on 07/22/2024 due to seizure-like activity. She had not been feeling well a day prior to presenting and had fallen in the bathroom with a head injury which she had some seizure-like activity with. In the ER she was noted to have some left- sided weakness and altered mental status. Later in ER she developed a generalized witnessed seizure and was started on keppra. Her blood pressure wasnoted to be very elevated. She was admitted to ICU and started on nicardipine gtt with concern for PRESS. She did not require intubation. She was weaned off n icardipine gtt, mentation returned to baseline. Routine EEG showed borderline slowing, otherwise unremarkable. She was seen and evaluated by neurology who suspected new onset seizures and continued keppra therapy. MRI showed no acute findings, suspected seizure from right occipital gliosis and encephalomalacia from her chronic ischemic stroke Although asymptomatic, patient family requested treatment of pseudomonas in urine (< 10 K cfu), she completed 3 day course of levofloxacin with 2 additional days on oral. She willfollow-up with neurology outpatient. Palliative care was also consulted for goals of care and her CODE STATUS changed to DNR CCA without intubation. She was evaluated by PT/OT and recommended acute inpatient rehabilitation. The hospitalist team has been consulted for medical managementof hypertension. Patient seen and examined. Denies chest pain or palpitation. No cough, dyspnea, orpain with inspiration. No abdominal pain or indigestion, constipation or diarrhea, nausea or vomiting. No dysuria or retention. No headache or dizziness. No fevers Review of Systems Review of Systems Review of systems: 10 point review of systems obtained, negative unless noted in the HPI below [facility] Medical History Ischemic cerebral vascular accident (CVA) due to stenosis of large extracranial artery Fracture of left foot Retina disorder, left History of left heart catheterization (LHC) Hypoparathyroidism Hypertension Hyperlipidemia Cataract Secondary hyperparathyroidism Hypothyroidism, unspecified Hypertensive chronic kidney disease with stage 1 through stage 4 chronic kidney disease, or unspecified chronic kidney disease History of falling Essential (primary) hypertension Elevated blood pressure reading Dyslipidemia CKD (chronic kidney disease) stage 4, GFR 15-29 ml/min Chronic kidney disease, stage 3 unspecified Cervical cancer CAD in [place] artery Bronchitis, not specified as acute or chronic 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 Cataract Hypertension Surgical History History of partial hysterectomy History of appendectomy S/P partial hysterectomy Family History Father Stroke Mother Stroke Sister Breast cancer Myocardial infarction Daughter Cancer Legacy FamHx Relation: Daughter(s); Legacy FamHx Problem: Diagnosed with Cancer Father History of stroke Legacy FamHx Problem: Diagnosed with Stroke Mother History of stroke Legacy FamHx Problem: Diagnosed with Stroke Sister Cancer Legacy FamHx Problem: Diagnosed with Cancer Heart disease Social History Smoking Status: Former smoker Substance Use Type: None Meds Medications and Allergies Allergies amlodipine (From Norvasc) Allergy (Unknown, Verified 07/22/24 21:12) Unknown Reaction ciprofloxacin Allergy (Unknown, Verified 07/22/24 21:12) Comment:joint pain clonidine (From Catapres) Allergy (Unknown, Verified 07/22/24 21:12) Unknown Reaction hydralazine Allergy (Unknown, Verified 07/22/24 21:12) Unknown Reaction lisinopril Allergy (Unknown, Verified 07/22/24 21:12) Unknown Reaction methylprednisolone (From Medrol) Allergy (Unknown, Verified 07/22/24 21:12) Unknown Reaction Ksjxgsr-GRL-PxI Reductase Inhibitor (Nxmetqu-Fkp-Mdv Reductase Inhibitor) Allergy (Unknown, Verified 07/22/24 21:12) Unknown Reaction Sulfa (Sulfonamide Antibiotics) Allergy (Unknown, Verified 07/22/24 21:12) Unknown Reaction Home Medications aspirin 81 mg tablet,delayed release (Neli Low Dose Aspirin) 81 mg PO DAILY 03/12/17 [History Confirmed 07/25/24] fenofibrate 54 mg tablet 54 mg PO DAILY 03/12/17 [History Confirmed 07/25/24] nitroglycerin 0.4 mg sublingual tablet 0.4 mg sublingual Q5M PRN chest pain 30 days #25 tabs 01/28/23 [Rx Confirmed 07/25/24] metoprolol tartrate 25 mg tablet 25 mg PO BID #60 tabs 01/29/23 [Rx Confirmed 07/25/24] atorvastatin 40 mg tablet 40 mg PO DAILY 03/14/24 [History Confirmed 07/25/24] levothyroxine 100 mcg tablet 100 mcg PO DAILY 03/28/24 [History Confirmed 07/25/24] apixaban 5 mg tablet (Eliquis) 5 mg PO BID #54 tabs 05/22/24 [Rx Confirmed 07/25/24] valsartan 160 mg tablet 160 mg PO DAILY 05/22/24 [History Confirmed 07/25/24] levetiracetam 500 mg tablet 500 mg PO BID 30 days #60 tabs 07/25/24 [Rx Confirmed 07/25/24] levofloxacin 250 mg tablet 250 mg PO DAILY 2 days #2 tabs 07/25/24 [Rx Confirmed 07/25/24] Active Medications: Active Medications Generic Name Dose Route Start Last Admin Trade Name Freq PRN Reason Stop Dose Admin Acetaminophen 500 mg 07/25/24 17:25 Acetaminophen 500 Mg Tablet PO 07/25/25 17:24 Q4H PRN Pain Al Hydrox/Mg Hydrox/Simethicone 30 ml 07/25/24 17:25 Mag Hydrox/Al Hydrox/Simeth 30 Ml Udc PO 07/25/25 17:24 Q4H PRN Indigestion Apixaban 5 mg 07/25/24 21:00 07/26/24 08:46 Apixaban 5 Mg Tablet PO 07/25/25 20:59 5 mg BID [place] Administration Aspirin 81 mg 07/26/24 09:00 07/26/24 08:46 Aspirin 81 Mg Tablet.Dr PO 07/26/25 08:59 81 mg DAILY [facility] Administration Atorvastatin Calcium 40 mg 07/26/24 09:00 07/26/24 08:47 Atorvastatin 40 Mg Tablet PO 07/26/25 08:59 40 mg DAILY [facility] Administration Bisacodyl 10 mg 07/25/24 17:25 Bisacodyl 10 Mg Supp.Rect [place] 07/25/25 17:24 DAILY PRN Constipation Docusate Sodium 100 mg 07/25/24 17:25 Docusate 100 Mg Capsule PO 07/25/25 17:24 BID PRN Constipation Docusate Sodium 283 mg 07/25/24 17:25 Docusate Enema 283 Mg/5 Ml Enema [place] 07/25/25 17:24 DAILY PRN Constipation Fenofibrate 48 mg 07/26/24 09:00 07/26/24 08:46 Fenofibrate Nanocrystallized 48 Mg Tablet PO 07/26/25 08:59 48 mg DAILY [place] Administration Lactulose 30 gm 07/25/24 17:25 Lactulose 20 Gm/30 Ml Udc PO 07/25/25 17:24 DAILY PRN Constipation Levetiracetam 500 mg 07/25/24 21:00 07/26/24 08:47 Levetiracetam 500 Mg Tablet PO 07/25/25 20:59 500 mg BID [place] Administration Levofloxacin 250 mg 07/26/24 09:00 07/26/24 08:46 Levofloxacin 250 Mg Tablet PO 07/27/24 09:01 250 mg DAILY [place] Administration Levothyroxine Sodium 100 mcg 07/26/24 06:30 07/26/24 05:38 Levothyroxine 100 Mcg Tablet PO 07/26/25 06:29 100 mcg DAILY.0630 [place] Administration Metoprolol Tartrate 25 mg 07/25/24 21:00 07/26/24 08:47 Metoprolol Tartrate 25 Mg Tablet PO 07/25/25 20:59 25 mg BID [place] Administration Nitroglycerin 0.4 mg 07/25/24 17:31 Nitroglycerin 0.4 Mg Tab.Subl SUBLINGUAL 07/25/25 17:30 Q5M PRN chest pain Sennosides 17.2 mg 07/26/24 12:00 Sennosides 8.6 Mg Tablet PO 07/26/25 11:59 DAILY@12 PRN If no BM in 2 days Sodium Chloride 0 ml 07/25/24 17:25 Sodium Chloride 0.9 % 10 Ml Syringe IV-PUSH 07/25/25 17:24 PRN PRN Flush Sodium Chloride 10 ml 07/26/24 09:00 07/26/24 08:47 Sodium Chloride 0.9 % 10 Ml Syringe IV-PUSH 07/26/25 08:59 10 ml BID [place] Administration Valsartan 160 mg 07/26/24 09:00 07/26/24 08:46 Valsartan 160 Mg Tablet PO 07/26/25 08:59 160 mg DAILY [place] Administration Exam Physical Exam Vital Signs: Temp Pulse Resp BP Pulse Ox O2 Del Method 97.8 F 70 20 139/79 98 Room Air 07/26/24 16:00 07/26/24 16:00 07/26/24 16:00 07/26/24 16:00 07/26/24 16:00 07/26/24 16:00 Narrative: CONST- Appears well -developed and well nourished No acute distress. HEAD - Normocephalic and atraumatic EENT?Sclera nonicteric and conjunctive are nonerythemic, moist oral mucosa, pharynx clear NECK?Supple, no cervical lymphadenopathy CARDIAC?normal rate, regular rhythm, normal S1 & S2. PULM?diminished without wheeze or rhonchi, RA, no accessory muscle use or cough noted ABD ? Soft. Bowel sounds are normal. No distention No tenderness EXTREM?no edema BLE calves nontender SKIN? W/D good turgo MS- MAEX4 spontaneously with equal with equal strength NEURO? A&Ox3 speech clear and tongue midline, equal facial symmetry no focal motor deficits PSYCH?Mood, affect and behavior appropriate Results - Hospitalist Consult Lab Results Labs: Laboratory Results - last 72 hr 07/26/24 04:44: Corrected WBC 6.7, Uncorrected WBC Count 6.7, RBC 4.07, Hgb 12.7, Hct 35.6, MCV 87.4, MCH 31.1, MCHC 35.6 H, RDW 13.1, Plt Count 210, MPV 8.0, Neut % (Auto) 57.6, Lymph % (Auto) 27.9,[place] % (Auto) 11.3, Eos % (Auto) 2.3, Baso % (Auto) 0.9, Nucleat RBC Rel Count 0.1, Neut # (Auto) 3.9, Lymph # (Auto) 1.9, [place] # (Auto) 0.8, Eos # (Auto) 0.2, Baso # (Auto) 0.1, PHA Creatinine Clear33.18, Sodium 133 L, Potassium 3.7, Chloride 100, Carbon Dioxide 26.0, Anion Gap 10.7, BUN 15, Creatinine 1.09, Est GFR (CKD-EPI) 50.094,Glucose 98, Calcium 8.9, Total Bilirubin 0.8, AST 25, ALT 11, Alkaline Phosphatase 48, Total Protein 5.9 L, Albumin 3.4 L, Globulin 2.5, Albumin/Globulin Ratio 1.4, Prealbumin 14.8 L Assessment & Plan Assessment/Plan (1) Seizure: (2) Accelerated hypertension: (3) Impaired mobility and activities of daily living: Plan New Onset Seizure with concern for status epilepticus Impaired mobility and activities of daily living ?Plan of care for rehabilitation, PT/OT, DVT prophylaxis, bowel regimen per PM&Rteam ?On Keppra 500 mg p.o. twice daily and will follow-up with neurology outpatient Pseudomonas UTI?on Levaquin 250 mg p.o. x 2 doses Chronic conditions: 1.Paroxysmal A-fib/HTN?on apixaban, metoprolol, valsartan?blood pressure has been uncontrolled, improved this afternoon we will continue to monitor and adjust medications 2. Hypothyroidism?on levothyroxine 3. Hyperlipidemia?on atorvastatin, fenofibrate 4. CVA with residual left visual field deficits Documented By: Luz Marina Gonzalez APRN 07/26/24 1629 Signed By: 07/26/24 1659 07/28/24 [id number] [facility]04-30-2025 History and physical note Author Enedina Cain [facility] Note Date/Time July 26, 2024 12: 42pm [facility] [address] [place] [address] Physiatry (Rehab) H&P Signed Patient: Janelle Burt MR#: [id number] : 1940 Acct:[id number] Age/Sex: 83 / F Adm Date: 5 Loc: Room: [address] [place] [address] Type: ADM IN Attending Dr: Dev Jacobsen MD Copies to: MD Enedina Kimble, MD Antonino Montenegro MD~ Date of Service: 07/26/2024 HPI The patient was seen and examined on: 07/26/24 History of Present Illness: Ms. Burt is a 83 year old female with PMH of CVA, hypoparathyroidism, HTN, HLD, stage III CKD, CAD, and A-fib presenting to acute inpatient rehab with functional impairments s/p new onset seizure. She was brought to the hospital on 07/22/2024 after a suspected seizure. Apparently she was not feeling well the day of the incident and had a fall in the bathroom with a head injury after which she has had some seizure-like activity. In the ER there was a concern for a CVA as the patient had some left-sided weakness. Initial CT head was nonacute. Labs notable for significant hyponatremia at 113, lactic acidosis at 4.0, mild leukocytosis, UA suspicious for UTI She underwent a brain MRI which was also nonacute demonstrating moderate chronicsmall vessel ischemic changes as well as mild central involutional changes. EEGwith no epileptiform activity and borderline background slowing. Patient was placed on prophylactic Keppra with neurology recommendation for an outpatient follow-up. Palliative care was also consulted for goals of care. Patient's CODE STATUS changed to DNR CCA without intubation. PT/OT recommended acute rehab to address her functional impairments. On assessment this morning patient is alert, pleasant, oriented x 3. She offers nomajor complaints, just some back achiness and poor night sleep due to uncomfortable bed. She reports no headache, dizziness or lightheadedness. Recent vital trends noted. Blood pressure remains somewhat elevated although marginally improved today. Will continue to monitor and adjust the regimen as needed. Patient tells me that at baseline she is fully independent and lives alone. Shedoes not drive, her kids help with errands done as needed basis. No assistive device use prior to this admission. [facility] Medical History Ischemic cerebral vascular accident (CVA) due to stenosis of large extracranial artery Fracture of left foot Retina disorder, left History of left heart catheterization (LHC) Hypoparathyroidism Hypertension Hyperlipidemia Cataract Secondary hyperparathyroidism Hypothyroidism, unspecified Hypertensive chronic kidney disease with stage 1 through stage 4 chronic kidney disease, or unspecified chronic kidney disease History of falling Essential (primary) hypertension Elevated blood pressure reading Dyslipidemia CKD (chronic kidney disease) stage 4, GFR 15-29 ml/min Chronic kidney disease, stage 3 unspecified Cervical cancer CAD in [place] artery Bronchitis, not specified as acute or chronic 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 Cataract Hypertension Surgical History History of partial hysterectomy History of appendectomy S/P partial hysterectomy Family History Father Stroke Mother Stroke Sister Breast cancer Myocardial infarction Daughter Cancer Legacy FamHx Relation: Daughter(s); Legacy FamHx Problem: Diagnosed with Cancer Father History of stroke Legacy FamHx Problem: Diagnosed with Stroke Mother History of stroke Legacy FamHx Problem: Diagnosed with Stroke Sister Cancer Legacy FamHx Problem: Diagnosed with Cancer Heart disease Social History Smoking Status: Former smoker Substance Use Type: None Review of Systems Review of Systems All other systems reviewed & are negative unless noted below or in HPI Meds Medications and Allergies Allergies amlodipine (From Norvasc) Allergy (Unknown, Verified 07/22/24 21:12) Unknown Reaction ciprofloxacin Allergy (Unknown, Verified 07/22/24 21:12) Comment:joint pain clonidine (From Catapres) Allergy (Unknown, Verified 07/22/24 21:12) Unknown Reaction hydralazine Allergy (Unknown, Verified 07/22/24 21:12) Unknown Reaction lisinopril Allergy (Unknown, Verified 07/22/24 21:12) Unknown Reaction methylprednisolone (From Medrol) Allergy (Unknown, Verified 07/22/24 21:12) Unknown Reaction Fywypsu-NPU-FzF Reductase Inhibitor (Pahxwtx-Ili-Qeh Reductase Inhibitor) Allergy (Unknown, Verified 07/22/24 21:12) Unknown Reaction Sulfa (Sulfonamide Antibiotics) Allergy (Unknown, Verified 07/22/24 21:12) Unknown Reaction Home and Active Meds: Home Medications aspirin 81 mg tablet,delayed release (Neli Low Dose Aspirin) 81 mg PO DAILY 03/12/17 [History Confirmed 07/25/24] fenofibrate 54 mg tablet 54 mg PO DAILY 03/12/17 [History Confirmed 07/25/24] nitroglycerin 0.4 mg sublingual tablet 0.4 mg sublingual Q5M PRN chest pain 30 days #25 tabs 01/28/23 [Rx Confirmed 07/25/24] metoprolol tartrate 25 mg tablet 25 mg PO BID #60 tabs 01/29/23 [Rx Confirmed 07/25/24] atorvastatin 40 mg tablet 40 mg PO DAILY 03/14/24 [History Confirmed 07/25/24] levothyroxine 100 mcg tablet 100 mcg PO DAILY 03/28/24 [History Confirmed 07/25/24] apixaban 5 mg tablet (Eliquis) 5 mg PO BID #54 tabs 05/22/24 [Rx Confirmed 07/25/24] valsartan 160 mg tablet 160 mg PO DAILY 05/22/24 [History Confirmed 07/25/24] levetiracetam 500 mg tablet 500 mg PO BID 30 days #60 tabs 07/25/24 [Rx Confirmed 07/25/24] levofloxacin 250 mg tablet 250 mg PO DAILY 2 days #2 tabs 07/25/24 [Rx Confirmed 07/25/24] Active Medications Acetaminophen (Acetaminophen 500 Mg Tablet) 500 mg PO Q4H PRN PRN Reason: Pain Stop: 07/25/25 17:24 Al Hydrox/Mg Hydrox/Simethicone (Mag Hydrox/Al Hydrox/Simeth 30 Ml Udc) 30 ml PO Q4H PRN PRN Reason: Indigestion Stop: 07/25/25 17:24 Apixaban (Apixaban 5 Mg Tablet) 5 mg PO BID [place] Stop: 07/25/25 20:59 Last Admin: 07/26/24 08:46 Dose: 5 mg Aspirin (Aspirin 81 Mg Tablet.) 81 mg PO DAILY [facility] Stop: 07/26/25 08:59 Last Admin: 07/26/24 08:46 Dose: 81 mg Atorvastatin Calcium (Atorvastatin 40 Mg Tablet) 40 mg PO DAILY [facility] Stop: 07/26/25 08:59 Last Admin: 07/26/24 08:47 Dose: 40 mg Bisacodyl (Bisacodyl 10 Mg Supp.Rect) 10 mg AK DAILY PRN PRN Reason: Constipation Stop: 07/25/25 17:24 Docusate Sodium (Docusate 100 Mg Capsule) 100 mg PO BID PRN PRN Reason: Constipation Stop: 07/25/25 17:24 Docusate Sodium (Docusate Enema 283 Mg/5 Ml Enema) 283 mg AK DAILY PRN PRN Reason: Constipation Stop: 07/25/25 17:24 Fenofibrate (Fenofibrate Nanocrystallized 48 Mg Tablet) 48 mg PO DAILY [place] Stop: 07/26/25 08:59 Last Admin: 07/26/24 08:46 Dose: 48 mg Lactulose (Lactulose 20 Gm/30 Ml Udc) 30 gm PO DAILY PRN PRN Reason: Constipation Stop: 07/25/25 17:24 Levetiracetam (Levetiracetam 500 Mg Tablet) 500 mg PO BID [facility] Stop: 07/25/25 20:59 Last Admin: 07/26/24 08:47 Dose: 500 mg Levofloxacin (Levofloxacin 250 Mg Tablet) 250 mg PO DAILY [facility] Stop: 07/27/24 09:01 Last Admin: 07/26/24 08:46 Dose: 250 mg Levothyroxine Sodium (Levothyroxine 100 Mcg Tablet) 100 mcg PO DAILY.0630 [facility] Stop: 07/26/25 06:29 Last Admin: 07/26/24 05:38 Dose: 100 mcg Metoprolol Tartrate (Metoprolol Tartrate 25 Mg Tablet) 25 mg PO BID [place] Stop: 07/25/25 20:59 Last Admin: 07/26/24 08:47 Dose: 25 mg Nitroglycerin (Nitroglycerin 0.4 Mg Tab.Subl) 0.4 mg SUBLINGUAL Q5M PRN PRN Reason: chest pain Stop: 07/25/25 17:30 Sennosides (Sennosides 8.6 Mg Tablet) 17.2 mg PO DAILY@12 PRN PRN Reason: If no BM in 2 days Stop: 07/26/25 11:59 Sodium Chloride (Sodium Chloride 0.9 % 10 Ml Syringe) 0 ml IV-PUSH PRN PRN PRN Reason: Flush Stop: 07/25/25 17:24 Sodium Chloride (Sodium Chloride 0.9 % 10 Ml Syringe) 10 ml IV-PUSH BID [place] Stop: 07/26/25 08:59 Last Admin: 07/26/24 08:47 Dose: 10 ml Valsartan (Valsartan 160 Mg Tablet) 160 mg PO DAILY [place] Stop: 07/26/25 08:59 Last Admin: 07/26/24 08:46 Dose: 160 mg Exam Physical Exam Vital Signs: Temp Pulse Resp BP Pulse Ox O2 Del Method 98.0 F 75 18 163/75 H 94 L Room Air 07/26/24 04:37 07/26/24 04:37 07/26/24 04:37 07/26/24 08:48 07/26/24 04:37 07/26/24 04:37 Narrative: General: Awake, alert, oriented x3 HENT: Normal to inspection, normocephalic, atraumatic Eyes: PERRL, normal conjunctiva and sclera Neck: Normal ROM, normal visual inspection. Trachea midline. Cardio: Regular heart rate and rhythm Respiratory: Clear to auscultation bilaterally. Normal respiratory effort. No respiratory distress. GI: Abdomen soft, nontender, nondistended, active bowel sounds x4 quadrants Neuro: CN II-XII intact. Strength 5/5, equal bilaterally Extremities: No edema, erythema, cyanosis Psych: Mood and affect appropriate. Normal speech. Results - Phys. Rehab Labs Labs: Laboratory Results - last 24 hr 07/26/24 04:44 Corrected WBC 6.7 Uncorrected WBC Count 6.7 RBC 4.07 Hgb 12.7 Hct 35.6 MCV 87.4 MCH 31.1 MCHC 35.6 H RDW 13.1 Plt Count 210 MPV 8.0 Neut % (Auto) 57.6 Lymph % (Auto) 27.9 [place] % (Auto) 11.3 Eos % (Auto) 2.3 Baso % (Auto) 0.9 Nucleat RBC Rel Count 0.1 Neut # (Auto) 3.9 Lymph # (Auto) 1.9 [place] # (Auto) 0.8 Eos # (Auto) 0.2 Baso # (Auto) 0.1 PHA Creatinine Clear 33.18 Sodium 133 L Potassium 3.7 Chloride 100 Carbon Dioxide 26.0 Anion Gap 10.7 BUN 15 Creatinine 1.09 Est GFR (CKD-EPI) 50.094 Glucose 98 Calcium 8.9 Total Bilirubin 0.8 AST 25 ALT 11 Alkaline Phosphatase 48 Total Protein 5.9 L Albumin 3.4 L Globulin 2.5 Albumin/Globulin Ratio 1.4 Prealbumin 14.8 L Additional Results Results Comment: I reviewed clinical lab tests, radiology reports and obtained and summated medical records and have ordered follow up lab tests and imaging studies as needed for rehabilitation care. Functional Status Prior Level of Function Narrative: Previously independent, no assistive device use. Current Level of Function Narrative: Ambulatory short distances with a walker and supervision. Individualized Plan of Care Individualized Plan of Care Plan of Care: Individualized Overall Plan of Care: Admit Date/Time: July 25, 2024 Expected LOS: 2 weeks Expected Discharge Destination: Home Rehabilitation IGC: NTBI Primary Diagnosis: Seizure To have patient become more independent and to return home. Medical/ Functional Prognosis: Good Anticipated Functional Outcomes/Goals and Interventions: 1.Therapy Functional Outcome/Goal: Anticipate independent bed mobility Anticipated interventions: Physician management, PT, OT, CAMPAIGN MANAGEMENT SENIOR MANAGER, , Dietitian, RehabNursing, Case management 2. Therapy Functional Outcome/Goal: Anticipate independent transfers Anticipated interventions: Physician management, PT, OT, CAMPAIGN MANAGEMENT SENIOR MANAGER, Case management, Dietitian, Rehab Nursing 3. Therapy Functional Outcome/Goal: Anticipate independent ambulation Anticipated interventions: Physician management, PT, OT, CAMPAIGN MANAGEMENT SENIOR MANAGER Case management, Dietitian, Rehab Nursing 4.Therapy Functional Outcome/Goal: Anticipate independent self-care Anticipated interventions: Physician management, PT, OT, CAMPAIGN MANAGEMENT SENIOR MANAGER, Case management, Dietitian, Rehab Nursing 5.Therapy Functional Outcome/Goal: Anticipate independent functional communcation and swallowing Anticipated interventions: Physician management, PT, OT, CAMPAIGN MANAGEMENT SENIOR MANAGER, Case management, Dietitian, Rehab Nursing Required Therapy PT: 1 hour per day at least 5 days per week with additional therapy on as neededbasis. Comments: PT to improve pt's strength, endurance, bed mobility, transfers (sit-stand), standing balance, gait quality on level surfaces and stairs, coordination and functional ADL skills. Will also work to improve pt's safety awareness during transfers and ambulation. OT: 1 hour per day at least 5 days per week with additional therapy on as neededbasis. Comments: OT for basic ADL re-training (bathing, dressing, toileting, continence, grooming, feeding, transferring), to increase activity tolerance andfunctional mobility and to evaluate for adaptive and assistive devices. Will work to improve pt's endurance and educate pt on fall prevention and energy conservation techniques-pacing strategies and proper breathing techniques duringfunctional tasks. Speech/Language - 1 hour per day at least 5 days per week with additional therapy on as needed basis. Comments: CAMPAIGN MANAGEMENT SENIOR MANAGER to evaluate and treat patient?s cognition, language and communication skills, assess swallow function. Other: Dietitian, Rehab nursing, Wound, P&O, Neuropsychology as needed RATIONALE FOR IRF ADMISSION: Patient has both medical and functional complexities that require 24 hour daily monitoring and intervention from Building Cleaning Supervisor as well as other consulting physicians including internal medicine as well as 24 hour daily order tracer nursing - for medical safe / optimal management. Patient requires interdisciplinary therapy team rehabilitation care including OT, PT, CAMPAIGN MANAGEMENT SENIOR MANAGER, SW, Psychology, Rehab Nursing, requires and can tolerate at least 3 hours of daily OT and PT therapy at least 5 days weekly. The following medical conditions significantly impact the rehabilitation process andare being addressed daily and can not be managed at home or in a lesser intense medical setting: Refer to above problem oriented plan of care Assessment/Plan (1) Seizure: Plan: PT to improve pt's strength, endurance, bed mobility, transfers (sit-stand), standing balance, gait quality on level surfaces and stairs, coordination and functional ADL skills. Will also work to improve pt's safety awareness during transfers and ambulation. OT for basic ADL re-training (bathing, dressing, toileting, continence, grooming, feeding, transferring), to increase activity tolerance and functional mobility and to evaluate for adaptive and assistive devices. Will work to improve pt's endurance and educate pt on fall prevention and energy conservationtechniques-pacing strategies and proper breathing techniques during functional tasks. CAMPAIGN MANAGEMENT SENIOR MANAGER to evaluate and treat patient?s cognition, language and communication skills, assess swallow function. Patient education Pressure ulcer prophylaxis; encourage mobilization, frequent postural changes, pressure-relief techniques DVT prophylaxis Encourage deep breathing exercise incentive spirometry. Monitor bladder. Toileting schedule. Continue current bladder management, with scans as needed and CIC if needed. Start bowel care program every day to obtain continence, prevent ileus. Maintain fall precautions Gait and balance retraining Provision of the necessary gait aids and functional adaptive equipment to enhance the patient's a functional jainism Encourage deep breathing exercises and incentive spirometry RD evaluation Ensure adequate nutrition and hydration Discharge planning. (2) History of stroke: (3) Accelerated hypertension: (4) UTI (urinary tract infection): (5) Altered mental status: Qualifiers: Altered mental status type: delirium Qualified Code(s): R41.0 - Disorientation, unspecified (6) Hyponatremia: (7) Impaired mobility and activities of daily living: Plan 83-year-old female with past medical history as above who presents to acute inpatient rehabilitation unit with functional impairments in the setting of hyponatremia, UTI and a possible seizure. * Noted, unremarkable. Sodium level improving, 133 this morning * Continue home Eliquis for DVT prophylaxis * Trend blood pressures. Adjust the regimen if necessary. * Monitor neurological status closely. Observe for recurrent seizures. Continue Keppra per neurology recommendations. Outpatient follow-up after discharge. * finish Levaquin for UTI tomorrow. Patient education Pressure ulcer prophylaxis; encourage mobilization, frequent postural changes, pressure-relief techniques DVT prophylaxis Encourage deep breathing exercise incentive spirometry. Monitor bladder. Toileting schedule. Continue current bladder management, with scans as needed and CIC if needed. Start bowel care program every day to obtain continence, prevent ileus. Maintain fall precautions Gait and balance retraining Functional training and self-care and home management, including activities of daily living and instrumental activities of daily living Provision of the necessary gait aids and functional adaptive equipment to enhance the patient's a functional jainism Ensure adequate nutrition and hydration Sleep: No issues Pain: Reports no major discomfort. Continue as needed Tylenol. Discharge planning: Hopefully home in 7 to 10 days. I spent 46 minutes for services, including [id number] encounter with the patient, discussion of the case, plan of care, and exam; and [id number] activities, such as reviewing pertinent risk assessment consultant documentation, recent therapynotes, laboratory and radiology studies, and discussion of case with care team including physician, nursing, community case manager, and therapists. More than 50 % of time was spent on patient/family counseling or coordination ofcare. I completed a substantive portion of this encounter, the medical decision makingportion of this note in its entirety, including Allied health note review, nursing note review, risk assessment consultant note review, discussion with nursing and case management, and more than 50% of my time was spent on counseling and coordination of care, time spent 60 minutes Patient was personally seen by me, Dr. Abreu, on the day of encounter, within 24hours of rehab admission, reviewed the history and the relevant portions of the chart, including current orders, allied health and risk assessment consultant notes, labs/imaging and performed dozier elements of exam and I formulated the plan of care and facilitated the medical decision making. Documented By: Enedina Cain APRN 07/26/24 1 104 Signed By: <Electronically signed by AIMEE Cain> 07/26/24 1135 <Electronically signed by Jhon Abreu MD> 07/26/24 1242 [facility] Work Phone: [phone] 244-395704-30-2025 [place] [address] Physiatry (Rehab) H&P Signed Patient: Janelle Burt MR#: [id number] : 1940 Acct:[id number] Age/Sex: 83 / F Adm Date: 5 Loc: Room: [address] [place] [address] Type: ADM IN Attending Dr: Dev Jacobsen MD Copies to: MD Enedina Kimble APRN Joseph Riley, MD Marcia E Braun, MD~ Date of Service: 07/26/2024 HPI The patient was seen and examined on: 07/26/24 History of Present Illness: Ms. Burt is a 83 year old female with PMH of CVA, hypoparathyroidism, HTN, HLD, stage III CKD, CAD, and A-fib presenting to acute inpatient rehab with functional impairments s/p new onset seizure. She was brought to the hospital on 07/22/2024 after a suspected seizure. Apparently she was not feeling well the day of the incident and had a fall in the bathroom with a head injury after which she has had some seizure-like activity. In the ER there was a concern for a CVA as the patient had some left- sided weakness. Initial CT head was nonacute. Labs notable for significant hyponatremia at 113, lactic acidosis at 4.0, mild leukocytosis, UA suspicious for UTI She underwent a brain MRI which was also nonacute demonstrating moderate chronicsmall vessel ischemic changes as well as mild central involutional changes. EEGwith no epileptiform activity and borderline background slowing. Patient was placed on prophylactic Keppra with neurology recommendation lisa outpatient follow-up. Palliative care was also consulted for goals of care. Patient's CODE STATUS changed to DNR CCA without intubation. PT/OT recommended acute rehab to address her functional impairments. On assessment this morning patient is alert, pleasant, oriented x 3. She offers nomajor complaints, just some back achiness and poor night sleep due to uncomfortable bed. She reports no headache, dizziness or lightheadedness. Recent vital trends noted. Blood pressure remains somewhat elevated although marginally improved today. Will continue to monitor and adjust the regimen as needed. Patient tells me that at baseline she is fully independent and lives alone. Shedoes not drive, her kids help with errands done as needed basis. No assistive device use prior to this admission. [facility] Medical History Ischemic cerebral vascular accident (CVA) due to stenosis of large extracranial artery Fracture of left foot Retina disorder, left History of left heart catheterization (LHC) Hypoparathyroidism Hypertension Hyperlipidemia Cataract Secondary hyperparathyroidism Hypothyroidism, unspecified Hypertensive chronic kidney disease with stage 1 through stage 4 chronic kidney disease, or unspecified chronic kidney disease History of falling Essential (primary) hypertension Elevated blood pressure reading Dyslipidemia CKD (chronic kidney disease) stage 4, GFR 15-29 ml/min Chronic kidney disease, stage 3 unspecified Cervical cancer CAD in [place] artery Bronchitis, not specified as acute or chronic 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 Cataract Hypertension Surgical History History of partial hysterectomy History of appendectomy S/P partial hysterectomy Family History Father Stroke Mother Stroke Sister Breast cancer Myocardial infarction Daughter Cancer Legacy FamHx Relation: Daughter(s); Legacy FamHx Problem: Diagnosed with Cancer Father History of stroke Legacy FamHx Problem: Diagnosed with Stroke Mother History of stroke Legacy FamHx Problem: Diagnosed with Stroke Sister Cancer Legacy FamHx Problem: Diagnosed with Cancer Heart disease Social History Smoking Status: Former smoker Substance Use Type: None Review of Systems Review of Systems All other systems reviewed & are negative unless noted below or in HPI Meds Medications and Allergies Allergies amlodipine (From Norvasc) Allergy (Unknown, Verified 07/22/24 21:12) Unknown Reaction ciprofloxacin Allergy (Unknown, Verified 07/22/24 21:12) Comment:joint pain clonidine (From Catapres) Allergy (Unknown, Verified 07/22/24 21:12) Unknown Reaction hydralazine Allergy (Unknown, Verified 07/22/24 21:12) Unknown Reaction lisinopril Allergy (Unknown, Verified 07/22/24 21:12) Unknown Reaction methylprednisolone (From Medrol) Allergy (Unknown, Verified 07/22/24 21:12) Unknown Reaction Osiwzhb-[id number] Reductase Inhibitor (Rnnzypu-Yme-Bis Reductase Inhibitor) Allergy (Unknown, Verified 07/22/24 21:12) Unknown Reaction Sulfa (Sulfonamide Antibiotics) Allergy (Unknown, Verified 07/22/24 21:12) Unknown Reaction Home and Active Meds: Home Medications aspirin 81 mg tablet,delayed release (Neli Low Dose Aspirin) 81 mg PO DAILY 03/12/17 [History Confirmed 07/25/24] fenofibrate 54 mg tablet 54 mg PO DAILY 03/12/17 [History Confirmed 07/25/24] nitroglycerin 0.4 mg sublingual tablet 0.4 mg sublingual Q5M PRN chest pain 30 days #25 tabs 01/28/23 [Rx Confirmed 07/25/24] metoprolol tartrate 25 mg tablet 25 mg PO BID #60 tabs 01/29/23 [Rx Confirmed 07/25/24] atorvastatin 40 mg tablet 40 mg PO DAILY 03/14/24 [History Confirmed 07/25/24] levothyroxine 100 mcg tablet 100 mcg PO DAILY 03/28/24 [History Confirmed 07/25/24] apixaban 5 mg tablet (Eliquis) 5 mg PO BID #54 tabs 05/22/24 [Rx Confirmed 07/25/24] valsartan 160 mg tablet 160 mg PO DAILY 05/22/24 [History Confirmed 07/25/24] levetiracetam 500 mg tablet 500 mg PO BID 30 days #60 tabs 07/25/24 [Rx Confirmed 07/25/24] levofloxacin 250 mg tablet 250 mg PO DAILY 2 days #2 tabs 07/25/24 [Rx Confirmed 07/25/24] Active Medications Acetaminophen (Acetaminophen 500 Mg Tablet) 500 mg PO Q4H PRN PRN Reason: Pain Stop: 07/25/25 17:24 Al Hydrox/Mg Hydrox/Simethicone (Mag Hydrox/Al Hydrox/Simeth 30 Ml Udc) 30 ml PO Q4H PRN PRN Reason: Indigestion Stop: 07/25/25 17:24 Apixaban (Apixaban 5 Mg Tablet) 5 mg PO BID [place] Stop: 07/25/25 20:59 Last Admin: 07/26/24 08:46 Dose: 5 mg Aspirin (Aspirin 81 Mg Tablet.Dr) 81 mg PO DAILY [place] Stop: 07/26/25 08:59 Last Admin: 07/26/24 08:46 Dose: 81 mg Atorvastatin Calcium (Atorvastatin 40 Mg Tablet) 40 mg PO DAILY [place] Stop: 07/26/25 08:59 Last Admin: 07/26/24 08:47 Dose: 40 mg Bisacodyl (Bisacodyl 10 Mg Supp.Rect) 10 mg AK DAILY PRN PRN Reason: Constipation Stop: 07/25/25 17:24 Docusate Sodium (Docusate 100 Mg Capsule) 100 mg PO BID PRN PRN Reason: Constipation Stop: 07/25/25 17:24 Docusate Sodium (Docusate Enema 283 Mg/5 Ml Enema) 283 mg AK DAILY PRN PRN Reason: Constipation Stop: 07/25/25 17:24 Fenofibrate (Fenofibrate Nanocrystallized 48 Mg Tablet) 48 mg PO DAILY [place] Stop: 07/26/25 08:59 Last Admin: 07/26/24 08:46 Dose: 48 mg Lactulose (Lactulose 20 Gm/30 Ml Udc) 30 gm PO DAILY PRN PRN Reason: Constipation Stop: 07/25/25 17:24 Levetiracetam (Levetiracetam 500 Mg Tablet) 500 mg PO BID [place] Stop: 07/25/25 20:59 Last Admin: 07/26/24 08:47 Dose: 500 mg Levofloxacin (Levofloxacin 250 Mg Tablet) 250 mg PO DAILY [place] Stop: 07/27/24 09:01 Last Admin: 07/26/24 08:46 Dose: 250 mg Levothyroxine Sodium (Levothyroxine 100 Mcg Tablet) 100 mcg PO DAILY.629 [facility] Stop: 07/26/25 06:29 Last Admin: 07/26/24 05:38 Dose: 100 mcg Metoprolol Tartrate (Metoprolol Tartrate 25 Mg Tablet) 25 mg PO BID [facility] Stop: 07/25/25 20:59 Last Admin: 07/26/24 08:47 Dose: 25 mg Nitroglycerin (Nitroglycerin 0.4 Mg Tab.Subl) 0.4 mg SUBLINGUAL Q5M PRN PRN Reason: chest pain Stop: 07/25/25 17:30 Sennosides (Sennosides 8.6 Mg Tablet) 17.2 mg PO DAILY@12 PRN PRN Reason: If no BM in 2 days Stop: 07/26/25 11:59 Sodium Chloride (Sodium Chloride 0.9 % 10 Ml Syringe) 0 ml IV-PUSH PRN PRN PRN Reason: Flush Stop: 07/25/25 17:24 Sodium Chloride (Sodium Chloride 0.9 % 10 Ml Syringe) 10 ml IV-PUSH BID [facility] Stop: 07/26/25 08:59 Last Admin: 07/26/24 08:47 Dose: 10 ml Valsartan (Valsartan 160 Mg Tablet) 160 mg PO DAILY [facility] Stop: 07/26/25 08:59 Last Admin: 07/26/24 08:46 Dose: 160 mg Exam Physical Exam Vital Signs: Temp Pulse Resp BP Pulse Ox O2 Del Method 98.0 F 75 18 163/75 H 94 L Room Air 07/26/24 04:37 07/26/24 04:37 07/26/24 04:37 07/26/24 08:48 07/26/24 04:37 07/26/24 04:37 Narrative: General: Awake, alert, oriented x3 HENT: Normal to inspection, normocephalic, atraumatic Eyes: PERRL, normal conjunctiva and sclera Neck: Normal ROM, normal visual inspection. Trachea midline. Cardio: Regular heart rate and rhythm Respiratory: Clear to auscultation bilaterally. Normal respiratory effort. No respiratory distress. GI: Abdomen soft, nontender, nondistended, active bowel sounds x4 quadrants Neuro: CN II-XII intact. Strength 5/5, equal bilaterally Extremities: No edema, erythema, cyanosis Psych: Mood and affect appropriate. Normal speech. Results - Phys. Rehab Labs Labs: Laboratory Results - last 24 hr 07/26/24 04:44 Corrected WBC 6.7 Uncorrected WBC Count 6.7 RBC 4.07 Hgb 12.7 Hct 35.6 MCV 87.4 MCH 31.1 MCHC 35.6 H RDW 13.1 Plt Count 210 MPV 8.0 Neut % (Auto) 57.6 Lymph % (Auto) 27.9 [place] % (Auto) 11.3 Eos % (Auto) 2.3 Baso % (Auto) 0.9 Nucleat RBC Rel Count 0.1 Neut # (Auto) 3.9 Lymph # (Auto) 1.9 [place] # (Auto) 0.8 Eos # (Auto) 0.2 Baso # (Auto) 0.1 PHA Creatinine Clear 33.18 Sodium 133 L Potassium 3.7 Chloride 100 Carbon Dioxide 26.0 Anion Gap 10.7 BUN 15 Creatinine 1.09 Est GFR (CKD-EPI) 50.094 Glucose 98 Calcium 8.9 Total Bilirubin 0.8 AST 25 ALT 11 Alkaline Phosphatase 48 Total Protein 5.9 L Albumin 3.4 L Globulin 2.5 Albumin/Globulin Ratio 1.4 Prealbumin 14.8 L Additional Results Results Comment: I reviewed clinical lab tests, radiology reports and obtained and summated medical records and haveordered follow up lab tests and imaging studies as needed for rehabilitation care. Functional Status Prior Level of Function Narrative: Previously independent, no assistive device use. Current Level of Function Narrative: Ambulatory short distances with a walker and supervision. Individualized Plan of Care Individualized Plan of Care Plan of Care: Individualized Overall Plan of Care: Admit Date/Time: July 25, 2024 Expected LOS: 2 weeks Expected Discharge Destination: Home Rehabilitation IGC: NTBI Primary Diagnosis: Seizure To have patient become more independent and to return home. Medical/ Functional Prognosis: Good Anticipated Functional Outcomes/Goals and Interventions: 1.Therapy Functional Outcome/Goal: Anticipate independent bed mobility Anticipated interventions: Physician management, PT, OT, CAMPAIGN MANAGEMENT SENIOR MANAGER, , Dietitian, RehabNursing, Case management 2. Therapy Functional Outcome/Goal: Anticipate independent transfers Anticipated interventions: Physician management, PT, OT, CAMPAIGN MANAGEMENT SENIOR MANAGER, Case management, Dietitian, Rehab Nursing 3. Therapy Functional Outcome/Goal: Anticipate independent ambulation Anticipated interventions: Physician management, PT, OT, CAMPAIGN MANAGEMENT SENIOR MANAGER Case management, Dietitian, Rehab Nursing 4.Therapy Functional Outcome/Goal: Anticipate independent self-care Anticipated interventions: Physician management, PT, OT, CAMPAIGN MANAGEMENT SENIOR MANAGER, Case management, Dietitian, Rehab Nursing 5.Therapy Functional Outcome/Goal: Anticipate independent functional communcation and swallowing Anticipated interventions: Physician management, PT, OT, CAMPAIGN MANAGEMENT SENIOR MANAGER, Case management, Dietitian, Rehab Nursing Required Therapy PT: 1 hour per day at least 5 days per week with additional therapy on as neededbasis. Comments: PT to improve pt's strength, endurance, bed mobility, transfers (sit- stand), standing balance, gait quality on level surfaces and stairs, coordination and functional ADL skills. Will also work to improve pt's safety awareness during transfers and ambulation. OT: 1 hour per day at least 5 days per week with additional therapy on as neededbasis. Comments: OT for basic ADL re-training (bathing, dressing, toileting, continence, grooming, feeding, transferring), to increase activity tolerance andfunctional mobility and to evaluate for adaptive and assistive devices. Will work to improve pt's endurance and educate pt on fall prevention and energy conservation techniques-pacing strategies and proper breathing techniques duringfunctional tasks. Speech/Language - 1 hour per day at least 5 days per week with additional therapy on as needed basis. Comments: CAMPAIGN MANAGEMENT SENIOR MANAGER to evaluate and treat patient?s cognition, language and communication skills, assess swallow function. Other: Dietitian, Rehab nursing, Wound, P&O, Neuropsychology as needed RATIONALE FOR IRF ADMISSION: Patient has both medical and functional complexities that require 24 hour daily monitoring and intervention from Building Cleaning Supervisor as well as other consulting physicians including internal medicine as well as 24 hour daily order tracer nursing - for medical safe / optimal manageme nt. Patient requires interdisciplinary therapy team rehabilitation care including OT, PT, CAMPAIGN MANAGEMENT SENIOR MANAGER, SW, Psychology, Rehab Nursing, requires and can tolerate at least 3 hours of daily OT and PT therapy at least 5 days weekly. The following medical conditions significantly impact the rehabilitation process andare being addressed daily and can not be managed at home or in a lesser intense medical setting: Refer to above problem oriented plan of care Assessment/Plan (1) Seizure: Plan: PT to improve pt's strength, endurance, bed mobility, transfers (sit-stand), standing balance, gaitquality on level surfaces and stairs, coordination and functional ADL skills. Will also work to improve pt's safety awareness during transfers and ambulation. OT for basic ADL re-training (bathing, dressing, toileting, continence, grooming, feeding, transferring), to increase activity tolerance and functional mobility and to evaluate for adaptive and assistive devices. Will work to improve pt's endurance and educate pt on fall prevention and energy conser vationtechniques-pacing strategies and proper breathing techniques during functional tasks. CAMPAIGN MANAGEMENT SENIOR MANAGER to evaluate and treat patient?s cognition, language and communication skills, assess swallow function. Patient education Pressure ulcer prophylaxis; encourage mobilization, frequent postural changes, pressure-relief techniques DVT prophylaxis Encourage deep breathing exercise incentive spirometry. Monitor bladder. Toileting schedule. Continue current bladder management, with scans as needed and CIC if needed. Start bowel care program every day to obtain continence, prevent ileus. Maintain fall precautions Gait and balance retraining Provision of the necessary gait aids and functional adaptive equipment to enhance the patient's a functional jainism Encourage deep breathing exercises and incentive spirometry RD evaluation Ensure adequate nutrition and hydration Discharge planning. (2) History of stroke: (3) Accelerated hypertension: (4) UTI (urinary tract infection): (5) Altered mental status: Qualifiers: Altered mental status type: delirium Qualified Code(s): R41.0 - Disorientation, unspecified (6) Hyponatremia: (7) Impaired mobility and activities of daily living: Plan 83-year-old female with past medical history as above who presents to acute inpatient rehabilitation unit with functional impairments in the setting of hyponatremia, UTI and a possible seizure. * Noted, unremarkable. Sodium level improving, 133 this morning * Continue home Eliquis for DVT prophylaxis * Trend blood pressures. Adjust the regimen if necessary. * Monitor neurological status closely. Observe for recurrent seizures. Continue Keppra per neurology recommendations. Outpatient follow-up after discharge. * finish Levaquin for UTI tomorrow. Patient education Pressure ulcer prophylaxis; encourage mobilization, frequent postural changes, pressure-relief techniques DVT prophylaxis Encourage deep breathing exercise incentive spirometry. Monitor bladder. Toileting schedule. Continue current bladder management, with scans as needed and CIC if needed. Start bowel care program every day to obtain continence, prevent ileus. Maintain fall precautions Gait and balance retraining Functional training and self-care and home management, including activities of daily living and instrumental activities of daily living Provision of the necessary gait aids and functional adaptive equipment to enhance the patient's a functional jainism Ensure adequate nutrition and hydration Sleep: No issues Pain: Reports no major discomfort. Continue as needed Tylenol. Discharge planning: Hopefully home in 7 to 10 days. I spent 46 minutes for services, including veoy-eg-uick encounter with the patient, discussion of the case, plan of care, and exam; and [id number] activities, such as reviewing pertinent risk assessment consultant documentation, recent therapynotes, laboratory and radiology studies, and discussion of case with care team including physician, nursing, community case manager, and therapists. More than 50 % of time was spent on patient/family counseling or coordination ofcare. I completed a substantive portion of this encounter, the medical decision makingportion of this note in its entirety, including Allied health note review, nursing note review, risk assessment consultant note review,discussion with nursing and case management, and more than 50% of my time was spent on counseling and coordination of care, time spent 60 minutes Patient was personally seen by me, Dr. Abreu, on the day of encounter, within 24hours of rehab admission, reviewed the history and the relevant portions of the chart, including current orders, alliedhealth and risk assessment consultant notes, labs/imaging and performed dozier elements of exam and I formulated the plan of care and facilitated the medical decision making. Documented By: Enedina Cain APRN 07/26/24 1 104 Signed By: 07/26/24 1135 07/26/24 1242 [facility]04-29-2025 Progress note Author Sylvie Florez [facility] Note Date/Time July 25, 2024 1:1 0pm [facility] [address] [place] [address] Palliative Care Progress Note Signed Patient: Janelle Burt MR#: [id number] : 1940 Acct:[id number] Age/Sex: 83 / F Adm Date: 5 Loc: Room: [address] [place] [address] Type: ADM IN Attending Dr: Jovani Sibley MD Copies to: ~ Date of Service: 07/25/2024 Subjective Subjective HPI: Ms Burt is an 83 y.o female with past medical hx of 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 In the ER, patient was alert but confused. Vitals showed significant hypertesnion. history was provided by her daughter. Patient reported not feeling well that morning, noted to be starring off into space. Then started feeling ill and had a fall. Family believe patient hit her head given that she was wedged in the bathroom with narrow limited space for her to move within. Also she noticed she had a contusion to her left earlobe. While in the ER, patient developed developed generalized seizure, witnessed by her daughter, described as twitchiness of her whole body with stiffness lasting up to 1 minute. Treated inthe ED for generalized tonic-clonic seizure with 1 mg of ativan and loaded with Keppra. Initial CBC and BMP WNL except sodium of 130. UA showed leukocyte esterase, 20-49WBC, with bacteria. Head CT showed chronic microvascular changeswithout acute processes. Head CTA was negative for occlusion. 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 Chest xray showed bibasilar interstitial thickening likely atelectasis. Neurology was contacted in ED and recommended admission. She was admitted to theICU for UTI and seizure. Critical care consulted and peripherally following. She was started on nicardipene drip, which has since been discontinued, started on IV levaquin, then switched to cefepime. Home Eliquis was held and receiving lovenox. Neurology concerned infection lowered patient's seizure threshold, hyponatremia and secondary to patient's previous stroke. She remains on Keppra. EEG is pending. She developed a fib with RVR. Started on cardiazem. Currently remainson drip. Rate is improved. Had MRI this morning and results pending. Obtaining ECHO. WBC did jump to 12.3 yesterday but today is improved to 6.0. Sodium improved today at 133. She did work with PT this morning. Request for inpatient rehab evaluation has been placed. Palliative care has been consulted to assist with goals of care. patient is sitting up in bed feeding herself lunch. States she is doing well. Has no concerns. Denies pain, shortness of breath. Family is at bedside. Updated on current condition and overall plan of care. Patient lives home alone in [place]. Has a 3story home. Her laundry and shower are in the basement. She climbs stairs multiple times a day without issue. Shehas not had any recent falls prior to this episode. 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 Her children state she is doing well at home. Family does report overall poor appetite. She has 3 kids. Close with her family. Patient is agreeable to inpatient rehab vs SNF for therapy prior to returning home. She would like to continue all aggressive care at this time. Family is supportive. She has quickly improved. They do report she was septic from UTI in February of last year so are concerned if she needs daily prophylatic antibiotics. Patient does have HPOA paperwork in hand. Daughter Lesly is primary. Reviewed resuscitation preferences. She previously chose DNR without intubation. Reviewed risks and benefits of CPR. Janelle states when its her time, she does not want to be brought back. She knows CPR and breathing machines usually do not have good outcomes and being independent at home is important to her. She would like DNRCCA without intubation. Family is in agreement. 07/25 Patient sitting up in chair. Doing well. Has no concerns or questions. Both daughters at bedside. patient at her lunch without issue. Has been approved for inpatient rehab. Waiting for a bed. Exam Physical Exam Vital Signs: Temp Pulse Resp BP Pulse Ox O2 Del Method O2 Flow Rate 98.7 F 70 16 156/68 H 96 Room Air 2 07/25/24 04:00 07/25/24 04:00 07/25/24 04:00 07/25/24 04:00 07/25/24 04:00 07/25/24 08:00 07/23/24 08:00 Const General: cooperative, comfortable, frail appearing and not ill appearing Nutritional Appearance: thin Orientation: alert, awake and oriented x3 Limitations: mental status not altered HEENT Head: normal to inspection Mouth: oral mucosae normal Resp Effort & Inspection: normal respiratory effort Auscultation: clear to auscultation bilaterally, no rhonchi and no wheezes Cardio Rate: regular rate Rhythm: abnormal rhythm Heart Sounds: S1 normal and S2 normal GI Palpation: soft, not firm, no guarding and nontender Skin General: ecchymosis Neuro General: patient alert, patient awake, patient oriented x3 and moves all extremities Cranial Nerves: CN's II-XII intact bilaterally Cognition: normal cognition Speech: speech normal Extrem General: no edema Psych Appearance: grossly normal Mental Status: mental status grossly normal Affect: normal affect Speech and Movement: speech and movement normal Attitude: cooperative Thought Process: normal Thought Content: normal Insight: insight good Judgment: judgment good Objective Labs 07/24/24 04:22 07/24/24 04:22 Microbiology Microbiology: Microbiology 07/22/24 21:55 Urine - Clean-Voided Midstream Urine Culture - Final Pseudomonas aeruginosa 07/23/24 04:36 Blood - Right Hand Blood Culture - Preliminary No Growth 2 Days 07/23/24 04:30 Blood - Left Hand Blood Culture - Preliminary No Growth 2 Days Assessment/Plan Assessment/Plan (1) History of stroke: Code(s): Z86.73 - Personal history of transient ischemic attack (TIA), and cerebral infarction without residual deficits (2) UTI (urinary tract infection): Qualifiers: Urinary tract infection type: acute cystitis Code(s): N39.0 - Urinary tract infection, site not specified (3) Altered mental status: Qualifiers: Altered mental status type: delirium Qualified Code(s): R41.0 - Disorientation, unspecified Code(s): R41.82 - Altered mental status, unspecified (4) Counseling regarding advance care planning and goals of care: Code(s): Z71.89 - Other specified counseling Plan Reviewed current condition and overall plan of care. Goals are aggressive. Resuscitation preferences DNRCCA without intubation. Code form completed and order changed. Will continue to follow for support. Thank you for the consult. 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 In the ER, patient was alert but confused. Vitals showed significant hypertesnion. history was provided by her daughter. Patient reported not feeling well that morning, noted to be starring off into space. Then started feeling ill and had a fall. Family believe patient hit her head given that she was wedged in the bathroom with narrow limited space for her to movewithin. Also she noticed she had a contusion to her left earlobe. While in the ER, patient developed developed generalized seizure, witnessed by her daughter, described as twitchiness of her whole body with stiffness lasting up to 1 minute. Treated inthe ED for generalized tonic-clonic seizure with1 mg of ativan and loaded with Keppra. Initial CBC and BMP WNL except sodium of 130. UA showed leukocyte esterase, 20-49WBC, with bacteria. Head CT showed chronic microvascular changeswithout acute processes. Head CTA was negative for occlusion. 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 Chest xray showed bibasilar interstitial thickening likely atelectasis. Neurology was contacted in ED and recommended admission. She was admitted to theICU for UTI and seizure. Critical care consulted and peripherally following. She was started on nicardipene drip, which has since been discontinued, started on IV levaquin, then switched to cefepime. Home Eliquis was held and receiving l ovenox. Neurology concerned infection lowered patient's seizure threshold, hyponatremia and secondary to patient's previous stroke. She remains on Keppra. EEG is pending. She developed a fib with RVR. Started on cardiazem. Currently remainson drip. Rate is improved. Had MRI this morning and results pending. Obtaining ECHO. WBC did jump to 12.3 yesterday but today is improved to 6.0. Sodium improved todayat 133. She did work with PT this morning. Request for inpatient rehab evaluation has been placed. Palliative care has been consulted to assist with goals of care. patient is sitting up in bed feeding herself lunch. States she is doing well. Has no concerns. Denies pain, shortness of breath. Family is at bedside. Updated on current condition and overall plan ofcare. Patient lives home alone in [place]. Has a 3story home. Her laundry and shower are in the basement. She climbs stairs multiple times a day without issue. Shehas not had any recent falls prior to this episode. 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 Her children state she is doing well at home. Family does report overall poor appetite. She has 3 kids. Close with her family. Patient is agreeable to inpatient rehab vs SNF for therapy prior to returning home. She would like to continue all aggressive care at this time. Family is supportive. She has quickly improved. They do report she was septic from UTI in February of last year so are concerned if she needs daily prophylatic antibiotics. Patient does have HPOA paperwork in hand. Daughter Lesly is primary. Reviewed resuscitation preferences. She previously chose DNR without intubation. Reviewed risks and benefits of CPR. Janelle states when its her time, she does not want to be brought back. She knows CPR and breathing machines usually do not have good outcomes and being independent at home is important to her. She would like DNRCCA without intubation. Family is in agreement. 07/25 Patient sitting up in chair. Doing well. Has no concerns or questions. Both daughters at bedside. patient at her lunch without issue. Has been approved for inpatient rehab. Waiting for a bed. Exam Physical Exam Vital Signs: Temp Pulse Resp BP Pulse Ox O2 Del Method O2 Flow Rate 98.7 F 70 16 156/68 H 96 Room Air 2 07/25/24 04:00 07/25/24 04:00 07/25/24 04:00 07/25/24 04:00 07/25/24 04:00 07/25/24 08:00 07/23/24 08:00 Const General: cooperative, comfortable, frail appearing and not ill appearing Nutritional Appearance: thin Orientation: alert, awake and oriented x3 Limitations: mental status not altered HEENT Head: normal to inspection Mouth: oral mucosae normal Resp Effort & Inspection: normal respiratory effort Auscultation: clear to auscultation bilaterally, no rhonchi and no wheezes Cardio Rate: regular rate Rhythm: abnormal rhythm Heart Sounds: S1 normal and S2 normal GI Palpation: soft, not firm, no guarding and nontender Skin General: ecchymosis Neuro General: patient alert, patient awake, patient oriented x3 and moves all extremities Cranial Nerves: CN's II-XII intact bilaterally Cognition: normal cognition Speech: speech normal Extrem General: no edema Psych Appearance: grossly normal Mental Status: mental status grossly normal Affect: normal affect Speech and Movement: speech and movement normal Attitude: cooperative Thought Process: normal Thought Content: normal Insight: insight good Judgment: judgment good Objective Labs 07/24/24 04:22 07/24/24 04:22 Microbiology Microbiology: Microbiology 07/22/24 21:55 Urine - Clean-Voided Midstream Urine Culture - Final Pseudomonas aeruginosa 07/23/24 04:36 Blood - Right Hand Blood Culture - Preliminary No Growth 2 Days 07/23/24 04:30 Blood - Left Hand Blood Culture - Preliminary No Growth 2 Days Assessment/Plan Assessment/Plan (1) History of stroke: Code(s): Z86.73 - Personal history of transient ischemic attack (TIA), and cerebral infarction without residual deficits (2) UTI (urinary tract infection): Qualifiers: Urinary tract infection type: acute cystitis Code(s): N39.0 - Urinary tract infection, site not specified (3) Altered mental status: Qualifiers: Altered mental status type: delirium Qualified Code(s): R41.0 - Disorientation, unspecified Code(s): R41.82 - Altered mental status, unspecified (4) Counseling regarding advance care planning and goals of care: Code(s): Z71.89 - Other specified counseling Plan Reviewed current condition and overall plan of care. Goals are aggressive. Resuscitation preferences DNRCCA without intubation. Code form completed and order changed. Will continue to follow for support. Thank you for the consult. Documented By: Sylvie Florez DO 07/25/24 1254 Signed By: 07/25/24 1310 [facility]04-29-2025 Progress note Author Jhon Abreu [facility] Note Date/Time July 25, 2024 9:4 0am [facility] [address] [place] [address] Physiatry(Rehab) Progress Note Signed Patient: Janelle Burt MR#: [id number] : 1940 Acct:[id number] Age/Sex: 83 / F Adm Date: 5 Loc: Room: [address] [place] [address] Type: ADM IN Attending Dr: Jovani Sibley MD Copies to: ~ Date of Service: 07/25/2024 Subjective Subjective Narrative: Seizure disorder 83-year-old female with medical history as noted presenting with functional decline in the setting of new onset seizure precipitated by hyponatremia and urinary tract infection. Of note, she had a stroke in January 2024 She had a fall at home. Noted to have seizure episode in the emergency room andis on Keppra. EEG and MRI are pending. She is being treated for UTI and her sodium is being corrected. Palliative care was also consulted to assist with goals of care. Interval history: Seen and examined at bedside. She is awake and alert. EEG was unremarkable aside from baseline background slowing. Her MRI was without acute findings. Review of Systems Review of Systems All other systems reviewed & are negative unless noted below or in HPI Exam Physical Exam Vital Signs: Temp Pulse Resp BP Pulse Ox O2 Del Method O2 Flow Rate 98.7 F 70 16 156/68 H 96 Room Air 2 07/25/24 04:00 07/25/24 04:00 07/25/24 04:00 07/25/24 04:00 07/25/24 04:00 07/25/24 04:00 07/23/24 08:00 Narrative: Pleasant NAD AO x 2 Generally weak Non-focal neurologic exam. Objective Labs 07/24/24 04:22 07/24/24 04:22 Medications and Allergies Allergies and Active Meds: Allergies amlodipine (From Norvasc) Allergy (Unknown, Verified 07/22/24 21:12) Unknown Reaction ciprofloxacin Allergy (Unknown, Verified 07/22/24 21:12) Comment:joint pain clonidine (From Catapres) Allergy (Unknown, Verified 07/22/24 21:12) Unknown Reaction hydralazine Allergy (Unknown, Verified 07/22/24 21:12) Unknown Reaction lisinopril Allergy (Unknown, Verified 07/22/24 21:12) Unknown Reaction methylprednisolone (From Medrol) Allergy (Unknown, Verified 07/22/24 21:12) Unknown Reaction Zifxakm-BEQ-XsD Reductase Inhibitor (Jfnmfmj-Syd-Kqu Reductase Inhibitor) Allergy (Unknown, Verified 07/22/24 21:12) Unknown Reaction Sulfa (Sulfonamide Antibiotics) Allergy (Unknown, Verified 07/22/24 21:12) Unknown Reaction Active Medications Generic Name Dose Route Start Last Admin Trade Name Freq PRN Reason Stop Dose Admin Acetaminophen 650 mg 07/23/24 04:11 07/23/24 04:25 Acetaminophen 650 Mg Supp.Rect AK 07/23/25 04:10 650 mg Q6HR PRN Administration Fever or Pain Apixaban 5 mg 07/23/24 21:00 07/25/24 08:36 Apixaban 5 Mg Tablet PO 07/23/25 20:59 5 mg BID CLIFTON Administration Aspirin 81 mg 07/23/24 14:15 07/25/24 08:36 Aspirin 81 Mg Tablet.Dr PO 07/23/25 14:14 81 mg DAILY CLIFTON Administration Atorvastatin Calcium 40 mg 07/24/24 09:00 07/25/24 08:36 Atorvastatin 40 Mg Tablet PO 07/24/25 08:59 40 mg DAILY CLIFTON Administration Levofloxacin 750 mg in 150 mls @ 100 mls/hr 07/23/24 11:00 07/23/24 11:31 Levaquin IV 100 mls/hr Q48H CLIFTON Administration Diltiazem HCl 100 mg in 100 mls @ 10 mls/hr 07/23/24 14:15 07/25/24 05:32 Cardizem IV 07/23/25 14:14 Not Given .Q10H CLIFTON Protocol 10 MG/HR Sodium Chloride 100 mls @ 20 mls/hr 07/23/24 14:15 07/25/24 05:50 0.9% Sodium Chloride 100 Ml IV 07/23/25 14:14 Not Given .Q5H CLIFTON Levetiracetam 500 mg 07/24/24 21:00 07/25/24 08:36 Levetiracetam 500 Mg Tablet PO 07/24/25 20:59 500 mg BID CLIFTON Administration Levothyroxine Sodium 100 mcg 07/24/24 06:30 07/25/24 05:50 Levothyroxine 100 Mcg Tablet PO 07/24/25 06:29 100 mcg DAILY@0630 CLIFTON Administration Lorazepam 0.5 mg 07/23/24 00:11 Lorazepam 2 Mg/Ml Vial IV-PUSH 01/19/25 00:10 Q2H PRN Agitation Metoprolol Tartrate 25 mg 07/23/24 14:05 07/25/24 08:36 Metoprolol Tartrate 25 Mg Tablet PO 07/23/25 14:04 25 mg BID CLIFTON Administration Sodium Chloride 0 ml 07/22/24 21:10 07/23/24 00:14 Sodium Chloride 0.9 % 10 Ml Syringe IV-PUSH 07/22/25 21:09 10 ml PRN PRN Administration Flush Sodium Chloride 10 ml 07/22/24 22:03 Sodium Chloride 0.9 % 10 Ml Vial.Pf INJECTION 07/22/25 22:02 PRN PRN 1:1 ATIVAN DILUTION Sodium Chloride 10 ml 07/22/24 23:45 07/25/24 08:37 Sodium Chloride 0.9 % 10 Ml Syringe IV-PUSH 07/22/25 23:44 10 ml Q8H CLIFTON Administration Sodium Chloride 10 ml 07/23/24 00:11 Sodium Chloride 0.9 % 10 Ml Vial.Pf INJECTION 07/23/25 00:10 Q2H PRN Ativan dilution Assessment/Plan Assessment/Plan (1) Accelerated hypertension: (2) UTI (urinary tract infection): (3) Seizure: (4) Hyponatremia: (5) CKD (chronic kidney disease) stage 3, GFR 30-59 ml/min: Qualifiers: Chronic kidney disease stage 3 subtype: stage 3b (GFR 30-44) Qualified Code(s): N18.32 - Chronic kidney disease, stage 3b (6) Hypothyroid: Qualifiers: Hypothyroidism type: acquired Qualified Code(s): E03.9 - Hypothyroidism, unspecified (7) Atrial fibrillation: Qualifiers: Atrial fibrillation type: paroxysmal Qualified Code(s): I48.0 - Paroxysmal atrial fibrillation Plan 83-year-old female with medical history as noted presenting with functional decline in the setting of new onset seizure precipitated by hyponatremia and urinary tract infection., Suffered a posterior stroke in 2023 with residual vision deficits. - Chart reviewed. She appears to be improving. EEG and MRI unremarkable. She can be discharged to rehab unit when cleared by primary and other consultants. Remains good rehab candidate. Patient is medically stable and appropriate for admission to the acute inpatientrehabilitation unit, would benefit from and tolerate least 3 hours daily, at least 5 days/week, of physical and occupational therapy, with speech therapy andadditional therapy as needed to address functional impairment related to above documented medical conditions and facilitate community discharge home in a timely fashion. Patient has medical complexity that cannot be best managed at [facility] level of care and requires at least 3 times weekly encounters with relay associate for medical management and for plan of care review / changes. Patient was personally seen by me, Dr. Abreu, on the day of encounter, reviewed the history and the relevant portions of the chart, including current orders, allied health and risk assessment consultant notes, labs/imaging and performed dozier elements of exam and I formulated the plan of care and facilitated the medical decision making. I completed a substantive portion of this encounter, the medical decision makingportion of this note in its entirety, including Allied health note review, nursing note review, risk assessment consultant note review, discussion with nursing and case management, and more than 50% of my time was spent on counseling and coordination of care, time spent 30 minutes Documented By: Jhon Abreu MD 07/25/24 0937 Signed By: <Electronically signed by Jhon Abreu MD> 07/25/24 0940 [facility] Work Phone: [phone]) [phone] [place] [address] Physiatry(Rehab) Progress Note Signed Patient: Janelle Burt MR#: [id number] : 1940 Acct:[id number] Age/Sex: 83 / F Adm Date: 5 Loc: Room: [address] [place] [address] Type: ADM IN Attending Dr: Jovani Sibley MD Copies to: ~ Date of Service: 07/25/2024 Subjective Subjective Narrative: Seizure disorder 83-year-old female with medical history as noted presenting with functional decline in the setting of new onset seizure precipitated by hyponatremia and urinary tract infection. Of note, she had a stroke in January 2024 She had a fall at home. Noted to have seizure episode in the emergency room andis on Keppra. EEG and MRI are pending. She is being treated for UTI and her sodium is being corrected. Palliative care was also consulted to assist with goals of care. Interval history: Seen and examined at bedside. She is awake and alert. EEG was unremarkable aside from baseline background slowing. Her MRI was without acute findings. Review of Systems Review of Systems All other systems reviewed & are negative unless noted below or in HPI Exam Physical Exam Vital Signs: Temp Pulse Resp BP Pulse Ox O2 Del Method O2 Flow Rate 98.7 F 70 16 156/68 H 96 Room Air 2 07/25/24 04:00 07/25/24 04:00 07/25/24 04:00 07/25/24 04:00 07/25/24 04:00 07/25/24 04:00 07/23/24 08:00 Narrative: Pleasant NAD AO x 2 Generally weak Non-focal neurologic exam. Objective Labs 07/24/24 04:22 07/24/24 04:22 Medications and Allergies Allergies and Active Meds: Allergies amlodipine (From Norvasc) Allergy (Unknown, Verified 07/22/24 21:12) Unknown Reaction ciprofloxacin Allergy (Unknown, Verified 07/22/24 21:12) Comment:joint pain clonidine (From Catapres) Allergy (Unknown, Verified 07/22/24 21:12) Unknown Reaction hydralazine Allergy (Unknown, Verified 07/22/24 21:12) Unknown Reaction lisinopril Allergy (Unknown, Verified 07/22/24 21:12) Unknown Reaction methylprednisolone (From Medrol) Allergy (Unknown, Verified 07/22/24 21:12) Unknown Reaction Mibeyho-EQZ-WdO Reductase Inhibitor (Kxxjsir-Zpd-Gvo Reductase Inhibitor) Allergy (Unknown, Verified 07/22/24 21:12) Unknown Reaction Sulfa (Sulfonamide Antibiotics) Allergy (Unknown, Verified 07/22/24 21:12) Unknown Reaction Active Medications Generic Name Dose Route Start Last Admin Trade Name Freq PRN Reason Stop Dose Admin Acetaminophen 650 mg 07/23/24 04:11 07/23/24 04:25 Acetaminophen 650 Mg Supp.Rect AK 07/23/25 04:10 650 mg Q6HR PRN Administration Fever or Pain Apixaban 5 mg 07/23/24 21:00 07/25/24 08:36 Apixaban 5 Mg Tablet PO 07/23/25 20:59 5 mg BID CLIFTON Administration Aspirin 81 mg 07/23/24 14:15 07/25/24 08:36 Aspirin 81 Mg Tablet. PO 07/23/25 14:14 81 mg DAILY CLIFTON Administration Atorvastatin Calcium 40 mg 07/24/24 09:00 07/25/24 08:36 Atorvastatin 40 Mg Tablet PO 07/24/25 08:59 40 mg DAILY CLIFTON Administration Levofloxacin 750 mg in 150 mls @ 100 mls/hr 07/23/24 11:00 07/23/24 11:31 Levaquin IV 100 mls/hr Q48H CLIFT[place] Administration Diltiazem HCl 100 mg in 100 mls @ 10 mls/hr 07/23/24 14:15 07/25/24 05:32 Cardizem IV 07/23/25 14:14 Not Given .Q10H CLIFTON Protocol 10 MG/HR Sodium Chloride 100 mls @ 20 mls/hr 07/23/24 14:15 07/25/24 05:50 0.9% Sodium Chloride 100 Ml IV 07/23/25 14:14 Not Given .Q5H CL[place]ON Levetiracetam 500 mg 07/24/24 21:00 07/25/24 08:36 Levetiracetam 500 Mg Tablet PO 07/24/25 20:59 500 mg BID CLIFTON Administration Levothyroxine Sodium 100 mcg 07/24/24 06:30 07/25/24 05:50 Levothyroxine 100 Mcg Tablet PO 07/24/25 06:29 100 mcg DAILY@0630 CLIFTON Administration Lorazepam 0.5 mg 07/23/24 00:11 Lorazepam 2 Mg/Ml Vial IV-PUSH 01/19/25 00:10 Q2H PRN Agitation Metoprolol Tartrate 25 mg 07/23/24 14:05 07/25/24 08:36 Metoprolol Tartrate 25 Mg Tablet PO 07/23/25 14:04 25 mg BID CLIFTON Administration Sodium Chloride 0 ml 07/22/24 21:10 07/23/24 00:14 Sodium Chloride 0.9 % 10 Ml Syringe IV-PUSH 07/22/25 21:09 10 ml PRN PRN Administration Flush Sodium Chloride 10 ml 07/22/24 22:03 Sodium Chloride 0.9 % 10 Ml Vial.Pf INJECTION 07/22/25 22:02 PRN PRN 1:1 ATIVAN DILUTION Sodium Chloride 10 ml 07/22/24 23:45 07/25/24 08:37 Sodium Chloride 0.9 % 10 Ml Syringe IV-PUSH 07/22/25 23:44 10 ml Q8H CLIFTON Administration Sodium Chloride 10 ml 07/23/24 00:11 Sodium Chloride 0.9 % 10 Ml Vial.Pf INJECTION 07/23/25 00:10 Q2H PRN Ativan dilution Assessment/Plan Assessment/Plan (1) Accelerated hypertension: (2) UTI (urinary tract infection): (3) Seizure: (4) Hyponatremia: (5) CKD (chronic kidney disease) stage 3, GFR 30-59 ml/min: Qualifiers: Chronic kidney disease stage 3 subtype: stage 3b (GFR 30-44) Qualified Code(s): N18.32 - Chronic kidney disease, stage 3b (6) Hypothyroid: Qualifiers: Hypothyroidism type: acquired Qualified Code(s): E03.9 - Hypothyroidism, unspecified (7) Atrial fibrillation: Qualifiers: Atrial fibrillation type: paroxysmal Qualified Code(s): I48.0 - Paroxysmal atrial fibrillation Plan 83-year-old female with medical history as noted presenting with functional decline in the setting of new onset seizure precipitated by hyponatremia and urinary tract infection., Suffered a posteriorstroke in 2023 with residual vision deficits. - Chart reviewed. She appears to be improving. EEG and MRI unremarkable. She can be discharged to rehab unit when cleared by primary and other consultants. Remains good rehab candidate. Patient is medically stable and appropriate for admission to the acute inpatientrehabilitation unit, would benefit from and tolerate least 3 hours daily, at least 5 days/week, of physical and occupational therapy, with speech therapy andadditional therapy as needed to address functional impairment related to above documented medical conditions and facilitate community discharge home in a timely fashion. Patient has medical complexity that cannot be best managed at [facility] level of care and requires at least 3 times weekly encounters with relay associate for medical management and for plan of care review / changes. Patient was personally seen by me, Dr. Abreu, on the day of encounter, reviewed the history and therelevant portions of the chart, including current orders, allied health and risk assessment consultant notes, labs/imaging and performed dozier elements of exam and I formulated the plan of care and facilitated the medical decision making. I completed a substantive portion of this encounter, the medical decision makingportion of this note in its entirety, including Allied health note review, nursing note review, risk assessment consultant note review,discussion with nursing and case management, and more than 50% of my time was spent on counseling and coordination of care, time spent 30 minutes Documented By: Jhon Abreu MD 07/25/24 0937 Signed By: 07/25/24 0940 [facility]04-29-2025 Progress note Author Jovani Sibley [facility] Note Date/Time July 24, 2024 10: 03pm [facility] [address] [place] [address] Hospitalist Progress Note Signed Patient: Janelle Burt MR#: [id number] : 1940 Acct:[id number] Age/Sex: 83 / F Adm Date: 5 Loc: Room: [address] [place] [address] Type: ADM IN Attending Dr: Jovani Sibley MD Copies to: ~ Date of Service: 07/24/2024 Subjective Subjective Narrative: Mentation recovered, awake, alert and conversant with daughters at bedside. Exam Physical Exam Vital Signs: Temp Pulse Resp BP Pulse Ox O2 Del Method O2 Flow Rate 98.0 F 54 L 14 161/69 H 96 Room Air 2 07/24/24 08:00 07/24/24 08:00 07/24/24 08:00 07/24/24 08:00 07/24/24 08:00 07/24/24 08:00 07/23/24 08:00 Narrative: General: cooperative and comfortable Orientation: alert, awake and oriented x3 Head: normal to inspection Neck: normal visual inspection Cardio: no JVD, slow regular rate, regular rhythm Chest palpation & inspection: normal inspection of the chest Resp Effort & Inspection: normal respiratory effort Abd: soft, non-tender, non-distended Extremities: Warm well perfused, no edema Objective Lab Results 07/24/24 04:22 07/24/24 04:22 Microbiology Results Microbiology 07/22/24 21:55 Urine - Clean-Voided Midstream Urine Culture - Preliminary Pseudomonas aeruginosa 07/23/24 04:36 Blood - Right Hand Blood Culture - Preliminary No Growth 1 Day 07/23/24 04:30 Blood - Left Hand Blood Culture - Preliminary No Growth 1 Day Meds Allergies and Active Meds Allergies amlodipine (From Norvasc) Allergy (Unknown, Verified 07/22/24 21:12) Unknown Reaction ciprofloxacin Allergy (Unknown, Verified 07/22/24 21:12) Comment:joint pain clonidine (From Catapres) Allergy (Unknown, Verified 07/22/24 21:12) Unknown Reaction hydralazine Allergy (Unknown, Verified 07/22/24 21:12) Unknown Reaction lisinopril Allergy (Unknown, Verified 07/22/24 21:12) Unknown Reaction methylprednisolone (From Medrol) Allergy (Unknown, Verified 07/22/24 21:12) Unknown Reaction Yyqmscl-QXX-OzX Reductase Inhibitor (Sfgguuf-Qth-Nhl Reductase Inhibitor) Allergy (Unknown, Verified 07/22/24 21:12) Unknown Reaction Sulfa (Sulfonamide Antibiotics) Allergy (Unknown, Verified 07/22/24 21:12) Unknown Reaction Active Meds: Active Medications Generic Name Dose Route Start Last Admin Trade Name Freq PRN Reason Stop Dose Admin Acetaminophen 650 mg 07/23/24 04:11 07/23/24 04:25 Acetaminophen 650 Mg Supp.Rect AK 07/23/25 04:10 650 mg Q6HR PRN Administration Fever or Pain Apixaban 5 mg 07/23/24 21:00 07/24/24 08:50 Apixaban 5 Mg Tablet PO 07/23/25 20:59 5 mg BID CLIFTON Administration Aspirin 81 mg 07/23/24 14:15 07/24/24 08:50 Aspirin 81 Mg Tablet.Dr PO 07/23/25 14:14 81 mg DAILY CLIFTON Administration Atorvastatin Calcium 40 mg 07/24/24 09:00 07/24/24 08:50 Atorvastatin 40 Mg Tablet PO 07/24/25 08:59 40 mg DAILY CL[place] Administration Levofloxacin 750 mg in 150 mls @ 100 mls/hr 07/23/24 11:00 07/23/24 11:31 Levaquin IV 100 mls/hr Q48H CL[place] Administration Levetiracetam 1,000 mg in 100 mls @ 400 mls/hr 07/23/24 09:00 07/24/24 08:50 Keppra IV 07/23/25 08:59 400 mls/hr BID CL[place] Administration Diltiazem HCl 100 mg in 100 mls @ 10 mls/hr 07/23/24 14:15 07/24/24 11:26 Cardizem IV 07/23/25 14:14 Not Given .Q10H CL[place]ON Protocol 10 MG/HR Sodium Chloride 100 mls @ 20 mls/hr 07/23/24 14:15 07/24/24 11:27 0.9% Sodium Chloride 100 Ml IV 07/23/25 14:14 Not Given .Q5H CL[place]ON Levothyroxine Sodium 100 mcg 07/24/24 06:30 07/24/24 06:32 Levothyroxine 100 Mcg Tablet PO 07/24/25 06:29 100 mcg DAILY@0630 CLIFTON Administration Lorazepam 0.5 mg 07/23/24 00:11 Lorazepam 2 Mg/Ml Vial IV-PUSH 01/19/25 00:10 Q2H PRN Agitation Metoprolol Tartrate 25 mg 07/23/24 14:05 07/24/24 08:50 Metoprolol Tartrate 25 Mg Tablet PO 07/23/25 14:04 25 mg BID CLIFTON Administration Sodium Chloride 0 ml 07/22/24 21:10 07/23/24 00:14 Sodium Chloride 0.9 % 10 Ml Syringe IV-PUSH 07/22/25 21:09 10 ml PRN PRN Administration Flush Sodium Chloride 10 ml 07/22/24 22:03 Sodium Chloride 0.9 % 10 Ml Vial.Pf INJECTION 07/22/25 22:02 PRN PRN 1:1 ATIVAN DILUTION Sodium Chloride 10 ml 07/22/24 23:45 07/24/24 08:51 Sodium Chloride 0.9 % 10 Ml Syringe IV-PUSH 07/22/25 23:44 10 ml Q8H CL[place] Administration Sodium Chloride 10 ml 07/23/24 00:11 Sodium Chloride 0.9 % 10 Ml Vial.Pf INJECTION 07/23/25 00:10 Q2H PRN Ativan dilution A&P - Hospitalist Assessment/Plan (1) Seizure: Plan Altered mental status, in the setting of New Onset Seizure with concern for status epilepticus UTI with hx of pseudomonas on previous Urine cultures back in January 2024 Hypertensive Emergency Currently patient is unarousable. Could be caused by Ativan given intravenously. Patient has a history of stroke. She is on Eliquis. -Admit pt to ICU with neuro checks q1 hour, and place on telemetry -Neurology service, Dr. Bridges, is already aware of the pt - EEG resulted borderline slowing, -Lorazepam 2 mg q2 hours PRN for seizure activities -Obtain Lactic acid and Prolactin STAT in the ED -Obtain MR brain without contrast. MRI was ordered routine, I switched to stat - MRI showed no evidence of acute infarct, only chronic changes - per neurology, plan for continued levetiracetam 500 mg bid -Patient was on Eliquis at home, has been resumed -Aspirin 81 mg daily - Nicardipine drip started by ED and weaned off - Started patient on cefepime for UTI and history of Pseudomonas - urine culture prelim with < 10K CFU pseudomonas -Echocardiogram - EF 60-65%, mild concentric LVH Anticipate d/c to inpatient rehab in next 24-48 hours. Defer for any diagnostic and therapeutic intervention related to her neurological status to neurology team. While patient in ICU, her medical management will be handled by registered safety engineer in collaboration with other needed specialist. Patient's status is dynamic and evolutionary therefore the aforementioned assessment and plan may or may not be completely inclusive. The patient will likely require to have additional workup, evaluation and intervention that will be determined based on the clinical progression we will follow-up this result. I will be off service starting this evening. Patient will be handed by one of my colleagues. Documented By: Jovani Sibley MD 07/24/241144 Signed By: <Electronically signed by Jovani Sibley MD> 07/24/24 1113 [facility] Work Phone: [phone] 291-758904-28-2025 [place] [address] Hospitalist Progress Note Signed Patient: Janelle Burt MR#: [id number] : 1940 Acct:[id number] Age/Sex: 83 / F Adm Date: 5 Loc: Room: [address] [place] [address] Type: ADM IN Attending Dr: Jovani Sibley MD Copies to: ~ Date of Service: 07/24/2024 Subjective Subjective Narrative: Mentation recovered, awake, alert and conversant with daughters at bedside. Exam Physical Exam Vital Signs: Temp Pulse Resp BP Pulse Ox O2 Del Method O2 Flow Rate 98.0 F 54 L 14 161/69 H 96 Room Air 2 07/24/24 08:00 07/24/24 08:00 07/24/24 08:00 07/24/24 08:00 07/24/24 08:00 07/24/24 08:00 07/23/24 08:00 Narrative: General: cooperative and comfortable Orientation: alert, awake and oriented x3 Head: normal to inspection Neck: normal visual inspection Cardio: no JVD, slow regular rate, regular rhythm Chest palpation & inspection: normal inspection of the chest Resp Effort & Inspection: normal respiratory effort Abd: soft, non-tender, non-distended Extremities: Warm well perfused, no edema Objective Lab Results 07/24/24 04:22 07/24/24 04:22 Microbiology Results Microbiology 07/22/24 21:55 Urine - Clean-Voided Midstream Urine Culture - Preliminary Pseudomonas aeruginosa 07/23/24 04:36 Blood - Right Hand Blood Culture - Preliminary No Growth 1 Day 07/23/24 04:30 Blood - Left Hand Blood Culture - Preliminary No Growth 1 Day Meds Allergies and Active Meds Allergies amlodipine (From Norvasc) Allergy (Unknown, Verified 07/22/24 21:12) Unknown Reaction ciprofloxacin Allergy (Unknown, Verified 07/22/24 21:12) Comment:joint pain clonidine (From Catapres) Allergy (Unknown, Verified 07/22/24 21:12) Unknown Reaction hydralazine Allergy (Unknown, Verified 07/22/24 21:12) Unknown Reaction lisinopril Allergy (Unknown, Verified 07/22/24 21:12) Unknown Reaction methylprednisolone (From Medrol) Allergy (Unknown, Verified 07/22/24 21:12) Unknown Reaction Lghdgwi-UAL-YeU Reductase Inhibitor (Jqqtvhl-Xpo-Pdn Reductase Inhibitor) Allergy (Unknown, Verified 07/22/24 21:12) Unknown Reaction Sulfa (Sulfonamide Antibiotics) Allergy (Unknown, Verified 07/22/24 21:12) Unknown Reaction Active Meds: Active Medications Generic Name Dose Route Start Last Admin Trade Name Freq PRN Reason Stop Dose Admin Acetaminophen 650 mg 07/23/24 04:11 07/23/24 04:25 Acetaminophen 650 Mg Supp.Rect AK 07/23/25 04:10 650 mg Q6HR PRN Administration Fever or Pain Apixaban 5 mg 07/23/24 21:00 07/24/24 08:50 Apixaban 5 Mg Tablet PO 07/23/25 20:59 5 mg BID CL[place] Administration Aspirin 81 mg 07/23/24 14:15 07/24/24 08:50 Aspirin 81 Mg Tablet.Dr PO 07/23/25 14:14 81 mg DAILY [place] Administration Atorvastatin Calcium 40 mg 07/24/24 09:00 07/24/24 08:50 Atorvastatin 40 Mg Tablet PO 07/24/25 08:59 40 mg DAILY [place] Administration Levofloxacin 750 mg in 150 mls @ 100 mls/hr 07/23/24 11:00 07/23/24 11:31 Levaquin IV 100 mls/hr Q48H [place] Administration Levetiracetam 1,000 mg in 100 mls @ 400 mls/hr 07/23/24 09:00 07/24/24 08:50 Keppra IV 07/23/25 08:59 400 mls/hr BID [place] Administration Diltiazem HCl 100 mg in 100 mls @ 10 mls/hr 07/23/24 14:15 07/24/24 11:26 Cardizem IV 07/23/25 14:14 Not Given .Q10H [place] Protocol 10 MG/HR Sodium Chloride 100 mls @ 20 mls/hr 07/23/24 14:15 07/24/24 11:27 0.9% Sodium Chloride 100 Ml IV 07/23/25 14:14 Not Given .Q5H [place] Levothyroxine Sodium 100 mcg 07/24/24 06:30 07/24/24 06:32 Levothyroxine 100 Mcg Tablet PO 07/24/25 06:29 100 mcg DAILY@0630 [place] Administration Lorazepam 0.5 mg 07/23/24 00:11 Lorazepam 2 Mg/Ml Vial IV-PUSH 01/19/25 00:10 Q2H PRN Agitation Metoprolol Tartrate 25 mg 07/23/24 14:05 07/24/24 08:50 Metoprolol Tartrate 25 Mg Tablet PO 07/23/25 14:04 25 mg BID CL[place] Administration Sodium Chloride 0 ml 07/22/24 21:10 07/23/24 00:14 Sodium Chloride 0.9 % 10 Ml Syringe IV-PUSH 07/22/25 21:09 10 ml PRN PRN Administration Flush Sodium Chloride 10 ml 07/22/24 22:03 Sodium Chloride 0.9 % 10 Ml Vial.Pf INJECTION 07/22/25 22:02 PRN PRN 1:1 ATIVAN DILUTION Sodium Chloride 10 ml 07/22/24 23:45 07/24/24 08:51 Sodium Chloride 0.9 % 10 Ml Syringe IV-PUSH 07/22/25 23:44 10 ml Q8H [place] Administration Sodium Chloride 10 ml 07/23/24 00:11 Sodium Chloride 0.9 % 10 Ml Vial.Pf INJECTION 07/23/25 00:10 Q2H PRN Ativan dilution A&P - Hospitalist Assessment/Plan (1) Seizure: Plan Altered mental status, in the setting of New Onset Seizure with concern for status epilepticus UTI with hx of pseudomonas on previous Urine cultures back in January 2024 Hypertensive Emergency Currently patient is unarousable. Could be caused by Ativan given intravenously. Patient has a history of stroke. She is on Eliquis. -Admit pt to ICU with neuro checks q1 hour, and place on telemetry -Neurology service, Dr. Brdiges, is already aware of the pt - EEG resulted borderline slowing, -Lorazepam 2 mg q2 hours PRN for seizure activities -Obtain Lactic acid and Prolactin STAT in the ED -Obtain MR brain without contrast. MRI was ordered routine, I switched to stat - MRI showed no evidence of acute infarct, only chronic changes - per neurology, plan for continued levetiracetam 500 mg bid -Patient was on Eliquis at home, has been resumed -Aspirin 81 mg daily - Nicardipine drip started by ED and weaned off - Started patient on cefepime for UTI and history of Pseudomonas - urine culture prelim with < 10K CFU pseudomonas -Echocardiogram - EF 60-65%, mild concentric LVH Anticipate d/c to inpatient rehab in next 24-48 hours. Defer for any diagnostic and therapeutic intervention related to her neurological status to neurology team. While patient in ICU, her medical management will be handled by registered safety engineer in collaboration with other needed specialist. Patient's status is dynamic and evolutionary therefore the aforementioned assessment and plan may or may not be completely inclusive. The patient will likely require to have additional workup, evaluation and intervention that will be determined based on the clinical progression we will follow-up this result. I will be off service starting this evening. Patient will be handed by one of my colleagues. Documented By: Jovani Sibley MD 07/24/241144 Signed By: 07/24/24 220 [facility]04-28-2025 Progress note Author Abdulkadir Amaro [facility] Note Date/Time July 24, 2024 4:2 0pm [facility] [address] [place] [address] Neurology Progress Note Signed Patient: Janelle Burt MR#: [id number] : 1940 Acct:[id number] Age/Sex: 83 / F Adm Date: 5 Loc: Room: [address] [place] [address] Type: ADM IN Attending Dr: Jovani Sibley MD Copies to: ~ Date of Service: 07/24/2024 Exam Physical Exam Vital Signs: Temp Pulse Resp BP Pulse Ox O2 Del Method O2 Flow Rate 98.1 F 60 18 121/58 L 97 Room Air 2 07/24/24 12:00 07/24/24 12:00 07/24/24 12:00 07/24/24 12:00 07/24/24 12:00 07/24/24 12:00 07/23/24 08:00 Objective Vital Signs Vital Signs: Vital Signs - 24 hr 07/23/24 14:00 07/23/24 14:59 07/23/24 15:00 Temperature Pulse Rate 138 H 136 H 131 H Respiratory Rate 16 17 Blood Pressure 101/75 168/65 H 164/80 H 02 Sat by Pulse Oximetry 97 97 Oxygen Delivery Method Room Air Room Air 07/23/24 16:00 07/23/24 16:00 07/23/24 16:08 Temperature 99.1 F H Pulse Rate 78 56 L Respiratory Rate 16 Blood Pressure 134/63 134/63 02 Sat by Pulse Oximetry 97 Oxygen Delivery Method Room Air Room Air 07/23/24 17:00 07/23/24 18:00 07/23/24 19:00 Temperature Pulse Rate 70 69 67 Respiratory Rate 16 18 20 Blood Pressure 114/57 L 141/63 H 113/56 L 02 Sat by Pulse Oximetry 98 97 96 Oxygen Delivery Method Room Air Room Air Room Air 07/23/24 19:15 07/23/24 19:35 07/23/24 20:00 Temperature Pulse Rate 62 58 L 76 Respiratory Rate 17 Blood Pressure 117/64 121/67 134/65 02 Sat by Pulse Oximetry 95 Oxygen Delivery Method Room Air 07/23/24 20:00 07/23/24 21:00 07/23/24 22:00 Temperature Pulse Rate 77 85 Respiratory Rate 18 23 Blood Pressure 156/72 H 132/63 02 Sat by Pulse Oximetry 95 94 L Oxygen Delivery Method Room Air Room Air Room Air 07/23/24 23:00 07/24/24 00:00 07/24/24 01:00 Temperature 97.7 F Pulse Rate 82 71 80 Respiratory Rate 16 17 20 Blood Pressure 131/58 L 135/62 122/58 L 02 Sat by Pulse Oximetry 96 95 95 Oxygen Delivery Method Room Air Room Air Room Air 07/24/24 02:00 07/24/24 03:00 07/24/24 04:00 Temperature 97.7 F Pulse Rate 69 77 71 Respiratory Rate 21 20 20 Blood Pressure 109/54 L 109/52 L 165/74 H 02 Sat by Pulse Oximetry 95 95 97 Oxygen Delivery Method Room Air Room Air Room Air 07/24/24 05:00 07/24/24 06:00 07/24/24 07:00 Temperature Pulse Rate 59 L 58 L 56 L Respiratory Rate 15 16 18 Blood Pressure 151/70 H 172/73 H 139/63 02 Sat by Pulse Oximetry 95 Oxygen Delivery Method Room Air Room Air Room Air 07/24/24 08:00 07/24/24 08:00 07/24/24 09:00 Temperature 98.0 F Pulse Rate 54 L 58 L Respiratory Rate 14 18 Blood Pressure 161/69 H 145/64 H 02 Sat by Pulse Oximetry 96 Oxygen Delivery Method Room Air Room Air Room Air 07/24/24 10:00 07/24/24 11:00 07/24/24 12:00 Temperature 98.1 F Pulse Rate 69 68 60 Respiratory Rate 18 17 18 Blood Pressure 150/67 H 156/68 H 121/58 L 02 Sat by Pulse Oximetry 96 97 Oxygen Delivery Method Room Air Room Air Room Air Labs 07/24/24 04:22 07/24/24 04:22 Therapy Recommendations Therapy Recommendations: OT Recommendations OT Recommended Discharge Inpatient Rehab Unit Location OT Recommended Services at Physical Therapy,Occupational Therapy,Speech Discharge Therapy PT Recommendations PT Recommended Discharge Inpatient Rehab Unit Location PT Recommended Services at Physical Therapy,Occupational Therapy Discharge ST Recommendations Liquid Consistency Thin Liquids Recommendation Solid Consistency Mechanical Soft Solids Recommendations Meat Consistency Chopped Meats Recommendations Medication Administration Whole Pills Dysphagia Swallow Precautions/ Sitting Upright (90 deg),Small Bites/Sips, Strategies Alternate Liquids/Solids,Pacing/Slow-Rate ST Recommended Services at 19/10 Supervision Discharge Assessment/Plan (1) Seizure: (2) Altered mental status: Qualifiers: Altered mental status type: delirium Qualified Code(s): R41.0 - Disorientation, unspecified (3) History of stroke: Plan CONSULT REASON: Seizure INTERIM: No new symptoms to report. No significant overnight events. I spoke and examined Janelle while she was getting set up for her EEG. I then met with her daughter in the waiting room to discuss things. EXAMINATION: In no distress. No deformities or trauma aside from bruising of her left pinna. Limbs seem well-perfused in general. No significant edema. Normal work of breathing. Visualized skin is generally intact and without lesions aside from lots of age-related findings. Affect normal. Patient is alert. Attention normal. Speech seems fluent and nondysarthric. Pulls appear equal. Ocular motility is full. 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 No nystagmus. Facial sensation is normal. Hearing is impaired. Facial strength is normal. Tongue is midline. Muscle bulk, tone, and strength are normal. No tremors. Light touch is intact. DATA REVIEW: -Routine EEG July 24, 2024 with borderline slowing, otherwise unremarkable - MRI brain July 24, 2024 upon personal review shows right occipital gliosis and encephalomalacia, nothing concerning for acute findings, no abnormal enhancement ASSESSMENT: 83-year-old woman who had a generalized tonic-clonic seizure witnessed in the emergency department, after being brought in for a fall in the bathroom which retrospectively could have been an initial unwitnessed seizure event. 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 Urinary tract infection and perhaps other factors such as hyponatremia could have lowered the seizure threshold for her. PLAN: 1. Continue levetiracetam at 500 mg twice daily 2. Outpatient neurology follow-up 3. MRI brain radiology report pending 4. No other inpatient neurology recommendations assuming there are no acute findings seen by radiology on the MRI Documented By: Abdulkadir Amaro DO 07/24/24 1308 Signed By: <Electronically signed by Abdulkadir Amaro DO> 07/24/24 3214 [facility] Work Phone: [phone]) [phone] [address] Neurology Progress Note Signed Patient: Janelle Burt MR#: [id number] : 1940 Acct:[id number] Age/Sex: 83 / F Adm Date: 5 Loc: Room: 2A8441-0 Type: ADM IN Attending Dr: Jovani Sibley MD Copies to: ~ Date of Service: 07/24/2024 Exam Physical Exam Vital Signs: Temp Pulse Resp BP Pulse Ox O2 Del Method O2 Flow Rate 98.1 F 60 18 121/58 L 97 Room Air 2 07/24/24 12:00 07/24/24 12:00 07/24/24 12:00 07/24/24 12:00 07/24/24 12:00 07/24/24 12:00 07/23/24 08:00 Objective Vital Signs Vital Signs: Vital Signs - 24 hr 07/23/24 14:00 07/23/24 14:59 07/23/24 15:00 Temperature Pulse Rate 138 H 136 H 131 H Respiratory Rate 16 17 Blood Pressure 101/75 168/65 H 164/80 H 02 Sat by Pulse Oximetry 97 97 Oxygen Delivery Method Room Air Room Air 07/23/24 16:00 07/23/24 16:00 07/23/24 16:08 Temperature 99.1 F H Pulse Rate 78 56 L Respiratory Rate 16 Blood Pressure 134/63 134/63 02 Sat by Pulse Oximetry 97 Oxygen Delivery Method Room Air Room Air 07/23/24 17:00 07/23/24 18:00 07/23/24 19:00 Temperature Pulse Rate 70 69 67 Respiratory Rate 16 18 20 Blood Pressure 114/57 L 141/63 H 113/56 L 02 Sat by Pulse Oximetry 98 97 96 Oxygen Delivery Method Room Air Room Air Room Air 07/23/24 19:15 07/23/24 19:35 07/23/24 20:00 Temperature Pulse Rate 62 58 L 76 Respiratory Rate 17 Blood Pressure 117/64 121/67 134/65 02 Sat by Pulse Oximetry 95 Oxygen Delivery Method Room Air 07/23/24 20:00 07/23/24 21:00 07/23/24 22:00 Temperature Pulse Rate 77 85 Respiratory Rate 18 23 Blood Pressure 156/72 H 132/63 02 Sat by Pulse Oximetry 95 94 L Oxygen Delivery Method Room Air Room Air Room Air 07/23/24 23:00 07/24/24 00:00 07/24/24 01:00 Temperature 97.7 F Pulse Rate 82 71 80 Respiratory Rate 16 17 20 Blood Pressure 131/58 L 135/62 122/58 L 02 Sat by Pulse Oximetry 96 95 95 Oxygen Delivery Method Room Air Room Air Room Air 07/24/24 02:00 07/24/24 03:00 07/24/24 04:00 Temperature 97.7 F Pulse Rate 69 77 71 Respiratory Rate 21 20 20 Blood Pressure 109/54 L 109/52 L 165/74 H 02 Sat by Pulse Oximetry 95 95 97 Oxygen Delivery Method Room Air Room Air Room Air 07/24/24 05:00 07/24/24 06:00 07/24/24 07:00 Temperature Pulse Rate 59 L 58 L 56 L Respiratory Rate 15 16 18 Blood Pressure 151/70 H 172/73 H 139/63 02 Sat by Pulse Oximetry 95 Oxygen Delivery Method Room Air Room Air Room Air 07/24/24 08:00 07/24/24 08:00 07/24/24 09:00 Temperature 98.0 F Pulse Rate 54 L 58 L Respiratory Rate 14 18 Blood Pressure 161/69 H 145/64 H 02 Sat by Pulse Oximetry 96 Oxygen Delivery Method Room Air Room Air Room Air 07/24/24 10:00 07/24/24 11:00 07/24/24 12:00 Temperature 98.1 F Pulse Rate 69 68 60 Respiratory Rate 18 17 18 Blood Pressure 150/67 H 156/68 H 121/58 L 02 Sat by Pulse Oximetry 96 97 Oxygen Delivery Method Room Air Room Air Room Air Labs 07/24/24 04:22 07/24/24 04:22 Therapy Recommendations Therapy Recommendations: OT Recommendations OT Recommended Discharge Inpatient Rehab Unit Location OT Recommended Services at Physical Therapy,Occupational Therapy,Speech Discharge Therapy PT Recommendations PT Recommended Discharge Inpatient Rehab Unit Location PT Recommended Services at Physical Therapy,Occupational Therapy Discharge ST Recommendations Liquid Consistency Thin Liquids Recommendation Solid Consistency Mechanical Soft Solids Recommendations Meat Consistency Chopped Meats Recommendations Medication Administration Whole Pills Dysphagia Swallow Precautions/ Sitting Upright (90 deg),Small Bites/Sips, Strategies Alternate Liquids/Solids,Pacing/Slow-Rate ST Recommended Services at 19/10 Supervision Discharge Assessment/Plan (1) Seizure: (2) Altered mental status: Qualifiers: Altered mental status type: delirium Qualified Code(s): R41.0 - Disorientation, unspecified (3) History of stroke: Plan CONSULT REASON: Seizure INTERIM: No new symptoms to report. No significant overnight events. I spoke and examined Janelle while she was getting set up for her EEG. I then met with her daughter in the waiting room to discuss things. EXAMINATION: In no distress. No deformities or trauma aside from bruising of her left pinna. Limbs seem well-perfused in general. No significant edema. Normal work of breathing. Visualized skin is generally intact and without lesions aside from lots of age-related findings. Affect normal. Patient is alert. Attention normal. Speech seems fluent and nondysarthric. Pulls appear equal. Ocular motility is full. 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 No nystagmus. Facial sensation is normal. Hearing is impaired. Facial strength is normal. Tongue is midline. Muscle bulk, tone, and strength are normal. No tremors. Light touch is intact. DATA REVIEW: -Routine EEG July 24, 2024 with borderline slowing, otherwise unremarkable - MRI brain July 24, 2024 upon personal review shows right occipital gliosis and encephalomalacia,nothing concerning for acute findings, no abnormal enhancement ASSESSMENT: 83-year-old woman who had a generalized tonic-clonic seizure witnessed in the emergency department,after being brought in for a fall in the bathroom which retrospectively could have been an initial unwitnessed seizure event. 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 Urinary tract infection and perhaps other factors such as hyponatremia could have lowered the seizure threshold for her. PLAN: 1. Continue levetiracetam at 500 mg twice daily 2. Outpatient neurology follow-up 3. MRI brain radiology report pending 4. No other inpatient neurology recommendations assuming there are no acute findings seen by radiology on the MRI Documented By: Abdulkadir Amaro DO 07/24/24 1308 Signed By: 07/24/24 1620 [facility]04-28-2025 Consult note Author Sylvie Florez [facility] Note Date/Time July 24, 2024 1:3 7pm [facility] [address] [place] [address] Palliative Care Consult Note Signed Patient: Janelle Burt MR#: [id number] : 1940 Acct:[id number] Age/Sex: 83 / F Adm Date: 5 Loc: Room: [address] [place] [address] Type: ADM IN Attending Dr: Jovani Sibley MD Copies to: DO Antonino Santos MD Rahul Prasad, MD~ HPI Data of Consult Date of Consult: 07/24/2024 Requesting Physician: Jovani Sibley MD Primary Care Provider: Antonino Gustafson MD Consult Narrative Reason for Consult: goals of care HPI: Ms Burt is an 83 y.o female with past medical hx of 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 In the ER, patient was alert but confused. Vitals showed significant hypertesnion. history was provided by her daughter. Patient reported not feeling well that morning, noted to be starring off into space. Then started feeling ill and had a fall. Family believe patient hit her head given that she was wedged in the bathroom with narrow limited space for her to move within. Also she noticed she had a contusion to her left earlobe. While in the ER, patient developed developed generalized seizure, witnessed by her daughter, described as twitchiness of her whole body with stiffness lasting up to 1 minute. Treated inthe ED for generalized tonic-clonic seizure with 1 mg of ativan and loaded with Keppra. Initial CBC and BMP WNL except sodium of 130. UA showed leukocyte esterase, 20-49WBC, with bacteria. Head CT showed chronic microvascular changeswithout acute processes. Head CTA was negative for occlusion. 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 Chest xray showed bibasilar interstitial thickening likely atelectasis. Neurology was contacted in ED and recommended admission. She was admitted to theICU for UTI and seizure. Critical care consulted and peripherally following. She was started on nicardipene drip, which has since been discontinued, started on IV levaquin, then switched to cefepime. Home Eliquis was held and receiving lovenox. Neurology concerned infection lowered patient's seizure threshold, hyponatremia and secondary to patient's previous stroke. She remains on Keppra. EEG is pending. She developed a fib with RVR. Started on cardiazem. Currently remainson drip. Rate is improved. Had MRI this morning and results pending. Obtaining ECHO. WBC did jump to 12.3 yesterday but today is improved to 6.0. Sodium improved today at 133. She did work with PT this morning. Request for inpatient rehab evaluation has been placed. Palliative care has been consulted to assist with goals of care. patient is sitting up in bed feeding herself lunch. States she is doing well. Has no concerns. Denies pain, shortness of breath. Family is at bedside. Updated on current condition and overall plan of care. Patient lives home alone in [place]. Has a 3story home. Her laundry and shower are in the basement. She climbs stairs multiple times a day without issue. Shehas not had any recent falls prior to this episode. 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 Her children state she is doing well at home. Family does report overall poor appetite. She has 3 kids. Close with her family. Patient is agreeable to inpatient rehab vs SNF for therapy prior to returning home. She would like to continue all aggressive care at this time. Family is supportive. She has quickly improved. They do report she was septic from UTI in February of last year so are concerned if she needs daily prophylatic antibiotics. Patient does have HPOA paperwork in hand. Daughter Lesly is primary. Reviewed resuscitation preferences. She previously chose DNR without intubation. Reviewed risks and benefits of CPR. Janelle states when its her time, she does not want to be brought back. She knows CPR and breathing machines usually do not have good outcomes and being independent at home is important to her. She would like DNRCCA without intubation. Family is in agreement. Review of Systems Review of Systems All other systems reviewed & are negative unless noted below or in HPI [facility] Medical History Ischemic cerebral vascular accident (CVA) due to stenosis of large extracranial artery Fracture of left foot Retina disorder, left History of left heart catheterization (LHC) Hypoparathyroidism Hypertension Hyperlipidemia Cataract Secondary hyperparathyroidism Hypothyroidism, unspecified Hypertensive chronic kidney disease with stage 1 through stage 4 chronic kidney disease, or unspecified chronic kidney disease History of falling Essential (primary) hypertension Elevated blood pressure reading Dyslipidemia CKD (chronic kidney disease) stage 4, GFR 15-29 ml/min Chronic kidney disease, stage 3 unspecified Cervical cancer CAD in [place] artery Bronchitis, not specified as acute or chronic 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 Cataract Hypertension Surgical History History of partial hysterectomy History of appendectomy S/P partial hysterectomy Family History Father Stroke Mother Stroke Sister Breast cancer Myocardial infarction Daughter Cancer Legacy FamHx Relation: Daughter(s); Legacy FamHx Problem: Diagnosed with Cancer Father History of stroke Legacy FamHx Problem: Diagnosed with Stroke Mother History of stroke Legacy FamHx Problem: Diagnosed with Stroke Sister Cancer Legacy FamHx Problem: Diagnosed with Cancer Heart disease Social History Smoking Status: Unknown if ever smoked Substance Use Type: None Allergies & Medications Medications and Allergies Allergies amlodipine (From Norvasc) Allergy (Unknown, Verified 07/22/24 21:12) Unknown Reaction ciprofloxacin Allergy (Unknown, Verified 07/22/24 21:12) Comment:joint pain clonidine (From Catapres) Allergy (Unknown, Verified 07/22/24 21:12) Unknown Reaction hydralazine Allergy (Unknown, Verified 07/22/24 21:12) Unknown Reaction lisinopril Allergy (Unknown, Verified 07/22/24 21:12) Unknown Reaction methylprednisolone (From Medrol) Allergy (Unknown, Verified 07/22/24 21:12) Unknown Reaction Vobbzdv-YZH-PzD Reductase Inhibitor (Uiqiwhy-Ccz-Lwp Reductase Inhibitor) Allergy (Unknown, Verified 07/22/24 21:12) Unknown Reaction Sulfa (Sulfonamide Antibiotics) Allergy (Unknown, Verified 07/22/24 21:12) Unknown Reaction Home Medications aspirin 81 mg tablet,delayed release (Neli Low Dose Aspirin) 81 mg PO DAILY 03/12/17 [History Confirmed 07/22/24] fenofibrate 54 mg tablet 54 mg PO DAILY 03/12/17 [History Confirmed 07/22/24] nitroglycerin 0.4 mg sublingual tablet 0.4 mg sublingual Q5M PRN chest pain 30 days #25 tabs 01/28/23 [Rx Confirmed 07/22/24] metoprolol tartrate 25 mg tablet 25 mg PO BID #60 tabs 01/29/23 [Rx Confirmed 07/22/24] atorvastatin 40 mg tablet 40 mg PO DAILY 03/14/24 [History Confirmed 07/22/24] levothyroxine 100 mcg tablet 100 mcg PO DAILY 03/28/24 [History Confirmed 07/22/24] apixaban 5 mg tablet (Eliquis) 5 mg PO BID #54 tabs 05/22/24 [Rx Confirmed 07/22/24] valsartan 160 mg tablet 160 mg PO DAILY 05/22/24 [History Confirmed 07/22/24] Active Medications Acetaminophen (Acetaminophen 650 Mg Supp.Rect) 650 mg AK Q6HR PRN PRN Reason: Fever or Pain Stop: 07/23/25 04:10 Last Admin: 07/23/24 04:25 Dose: 650 mg Apixaban (Apixaban 5 Mg Tablet) 5 mg PO BID [facility] Stop: 07/23/25 20:59 Last Admin: 07/24/24 08:50 Dose: 5 mg Aspirin (Aspirin 81 Mg Tablet.Dr) 81 mg PO DAILY [facility] Stop: 07/23/25 14:14 Last Admin: 07/24/24 08:50 Dose: 81 mg Atorvastatin Calcium (Atorvastatin 40 Mg Tablet) 40 mg PO DAILY [facility] Stop: 07/24/25 08:59 Last Admin: 07/24/24 08:50 Dose: 40 mg Levofloxacin (Levaquin) 750 mg in 150 mls @ 100 mls/hr IV Q48H [facility] Last Admin: 07/23/24 11:31 Dose: 100 mls/hr Levetiracetam (Keppra) 1,000 mg in 100 mls @ 400 mls/hr IV BID [facility] Stop: 07/23/25 08:59 Last Admin: 07/24/24 08:50 Dose: 400 mls/hr Diltiazem HCl (Cardizem) 100 mg in 100 mls @ 10 mls/hr IV .Q10H [facility]; Protocol Stop: 07/23/25 14:14 Last Admin: 07/24/24 11:26 Dose: Not Given Sodium Chloride (0.9% Sodium Chloride 100 Ml) 100 mls @ 20 mls/hr IV .Q5H [facility] Stop: 07/23/25 14:14 Last Admin: 07/24/24 11:27 Dose: Not Given Levothyroxine Sodium (Levothyroxine 100 Mcg Tablet) 100 mcg PO DAILY@0630 [facility] Stop: 07/24/25 06:29 Last Admin: 07/24/24 06:32 Dose: 100 mcg Lorazepam (Lorazepam 2 Mg/Ml Vial) 0.5 mg IV-PUSH Q2H PRN PRN Reason: Agitation Stop: 01/19/25 00:10 Metoprolol Tartrate (Metoprolol Tartrate 25 Mg Tablet) 25 mg PO BID [facility] Stop: 07/23/25 14:04 Last Admin: 07/24/24 08:50 Dose: 25 mg Sodium Chloride (Sodium Chloride 0.9 % 10 Ml Syringe) 0 ml IV-PUSH PRN PRN PRN Reason: Flush Stop: 07/22/25 21:09 Last Admin: 07/23/24 00:14 Dose: 10 ml Sodium Chloride (Sodium Chloride 0.9 % 10 Ml Vial.Pf) 10 ml INJECTION PRN PRN PRN Reason: 1:1 ATIVAN DILUTION Stop: 07/22/25 22:02 Sodium Chloride (Sodium Chloride 0.9 % 10 Ml Syringe) 10 ml IV-PUSH Q8H [facility] Stop: 07/22/25 23:44 Last Admin: 07/24/24 08:51 Dose: 10 ml Sodium Chloride (Sodium Chloride 0.9 % 10 Ml Vial.Pf) 10 ml INJECTION Q2H PRN PRN Reason: Ativan dilution Stop: 07/23/25 00:10 Exam Physical Exam Vital Signs: Temp Pulse Resp BP Pulse Ox O2 Del Method O2 Flow Rate 98.0 F 54 L 14 161/69 H 96 Room Air 2 07/24/24 08:00 07/24/24 08:00 07/24/24 08:00 07/24/24 08:00 07/24/24 08:00 07/24/24 08:00 07/23/24 08:00 Const General: cooperative, comfortable, frail appearing and not ill appearing Nutritional Appearance: thin Orientation: alert, awake and oriented x3 Limitations: mental status not altered HEENT Head: normal to inspection Mouth: oral mucosae normal Other: bruising of left pinna Resp Effort & Inspection: normal respiratory effort Auscultation: clear to auscultation bilaterally, no rhonchi and no wheezes Cardio Rate: regular rate Rhythm: abnormal rhythm Heart Sounds: S1 normal and S2 normal GI Palpation: soft, not firm, no guarding and nontender Skin General: ecchymosis Neuro General: patient alert, patient awake, patient oriented x3 and moves all extremities Cranial Nerves: CN's II-XII intact bilaterally Cognition: normal cognition Speech: speech normal Extrem General: no edema Psych Appearance: grossly normal Mental Status: mental status grossly normal Affect: normal affect Speech and Movement: speech and movement normal Attitude: cooperative Thought Process: normal Thought Content: normal Insight: insight good Judgment: judgment good Results - Palliative Care Labs 07/24/24 04:22 07/24/24 04:22 Labs: Laboratory Last Values Corrected WBC 6.0 X10E3/uL (3.8-11.6) 07/24/24 04:22 Uncorrected WBC Count 6.0 x10E3/uL (3.8-11.6) 07/24/24 04:22 RBC 4.29 x10E6/uL (3.60-5.00) 07/24/24 04:22 Hgb 13.3 g/dL (11.8-15.4) 07/24/24 04:22 POC Hgb 14.6 g/dl (12.0-17.0) 07/22/24 21:12 Hct 38.1 % (34.0-46.4) 07/24/24 04:22 POC Hct 43.0 % (38.0-51.0) 07/22/24 21:12 MCV 88.9 fl (80-100) 07/24/24 04:22 MCH 31.0 pg (24.7-34.3) 07/24/24 04:22 MCHC 34.9 g/dL (32.0-35.0) 07/24/24 04:22 RDW 13.5 % (11.9-15.3) 07/24/24 04:22 Plt Count 182 x10E3/uL (150-450) 07/24/24 04:22 MPV 7.5 fl (6.3-10.7) 07/24/24 04:22 Neut % (Auto) 60.6 % (.) 07/24/24 04:22 Lymph % (Auto) 25.9 % (.) 07/24/24 04:22 [place] % (Auto) 10.8 % (.) 07/24/24 04:22 Eos % (Auto) 1.4 % (.) 07/24/24 04:22 Baso % (Auto) 1.3 % (.) 07/24/24 04:22 Nucleat RBC Rel Count 0.0 /100 WBC (0-0.5) 07/24/24 04:22 Neut # (Auto) 3.6 x10E3/uL (1.8-7.7) 07/24/24 04:22 Lymph # (Auto) 1.5 x10E3/uL (1.00-4.8) 07/24/24 04:22 [place] # (Auto) 0.6 x10E3/uL (0.0-0.8) 07/24/24 04:22 Eos # (Auto) 0.1 x10E3/uL (0.0-0.45) 07/24/24 04:22 Baso # (Auto) 0.1 x10E3/uL (0.0-0.2) 07/24/24 04:22 Monocyte Dist Width 18.56 % (0.00-20.00) 07/23/24 04: PT 14.9 Seconds (9.0-12.9) H 07/22/24 21:10 INR 1.3 07/22/24 21:10 APTT 33.6 Seconds (25.1-36.5) 07/22/24 21:10 Sample Site Left radial 07/23/24 11:04 ABG pH 7.46 (7.35-7.45) H 07/23/24 11:04 ABG pCO2 29.7 mmHg (35.0-45.0) L* 07/23/24 11:04 ABG pO2 82.4 mmHg (80.0-100.0) 07/23/24 11:04 ABG HCO3 20.5 mmol/L (23.0-29.0) L 07/23/24 11:04 ABG Total CO2 21.4 mmol/L (23.0-27.0) L 07/23/24 11:04 ABG O2 Saturation 95.8 % (95.0-100.0) 07/23/24 11:04 ABG O2 Content 7.8 mmol/L (6.6-9.7) 07/23/24 11:04 ABG Base Excess -2.3 mmol/L (-3.0-3.0) 07/23/24 11:04 FiO2 21 % 07/23/24 11:04 Critical Value 07/23/24 11:04 PHA Creatinine Clear 39.82 07/24/24 04:22 POC Sodium 132 mmol/L (138-146) L 07/22/24 21:12 Sodium 133 mmol/L (136-145) L 07/24/24 04:22 POC Potassium 3.7 mmol/L (3.5-4.9) 07/22/24 21:12 Potassium 3.7 mmol/L (3.5-5.1) 07/24/24 04:22 POC Chloride 97.0 mmol/L (98-109) L 07/22/24 21:12 Chloride 101 mmol/L (98-107) 07/24/24 04:22 Carbon Dioxide 26.0 mmol/L (21.0-31.0) 07/24/24 04:22 POC Total CO2 25 mmol/L (23-29) 07/22/24 21:12 Anion Gap 9.7 mEq/L (6.0-15.0) 07/24/24 04:22 POC BUN 18 mg/dl (8-26) 07/22/24 21:12 BUN 12 mg/dL (7-25) 07/24/24 04:22 Creatinine 0.87 mg/dL (0.60-1.20) 07/24/24 04:22 POC Creatinine 1.2 mg/dl (0.6-1.3) 07/22/24 21:12 Est GFR (CKD-EPI) > 60.0 mL/Min 07/24/24 04:22 Glucose 89 mg/dL (70-100) 07/24/24 04:22 POC Whole Bld Glucose 117 mg/dl (70-105) H 07/22/24 21:12 POC Glucose 113 mg/dl 07/22/24 21:11 Lactic Acid 1.6 mmol/L (0.5-1.9) 07/23/24 06:07 Calcium 8.7 mg/dL (8.6-10.3) 07/24/24 04:22 POC Ioniz Calcium [place] 1.18 mol/L (1.12-1.32) 07/22/24 21:12 Magnesium 2.0 mg/dL (1.9-2.7) 07/23/24 06:07 Total Bilirubin 0.8 mg/dl (0.3-1.0) 07/24/24 04:22 AST 25 U/L (13-39) 07/24/24 04:22 ALT 9 U/L (7-52) 07/24/24 04:22 Alkaline Phosphatase 39 U/L (34-104) 07/24/24 04:22 Total Creatine Kinase 88 U/L (30-223) 07/22/24 21:10 Troponin I High Sens 9 ng/L (0-15) 07/22/24 21:10 Total Protein 5.8 gm/dL (6.4-8.9) L 07/24/24 04:22 Albumin 3.3 gm/dL (3.5-5.7) L 07/24/24 04:22 Globulin 2.5 gm/dL 07/24/24 04:22 Albumin/Globulin Ratio 1.3 07/24/24 04:22 Prolactin 24.67 ng/mL (2.74-19.64) H 07/23/24 00:24 Urine Color Light-yellow (Yellow) 07/22/24 21:55 Urine Appearance Clear (Clear) 07/22/24 21:55 Urine pH 8.0 (5.0-9.0) 07/22/24 21:55 Ur Specific [place] 1.025 (1.001-1.030) 07/22/24 21:55 Urine Protein Negative mg/dL (Negative) 07/22/24 21:55 Urine Glucose (UA) Normal mg/dL (Normal) 07/22/24 21:55 Urine Ketones Negative (Negative) 07/22/24 21:55 Urine Occult Blood Negative (Negative) 07/22/24 21:55 Urine Nitrite Negative (Negative) 07/22/24 21:55 Urine Bilirubin Negative (Negative) 07/22/24 21:55 Urine Urobilinogen Normal mg/dL (Normal) 07/22/24 21:55 Ur Leukocyte Esterase 2+ (Negative) H 07/22/24 21:55 Urine RBC 3-4 /HPF (0-4) 07/22/24 21:55 Urine WBC 20-49 /HPF (0-4) H 07/22/24 21:55 Ur Squamous Epith Cells N/A 07/22/24 21:55 Urine Bacteria 1+ /HPF (None Seen) H 07/22/24 21:55 Hyaline Casts None /LPF (0-8) 07/22/24 21:55 Microbiology Microbiology: 07/22/24 21:55 Urine Culture - Preliminary Urine - Clean-Voided Midstream Pseudomonas aeruginosa 07/23/24 04:36 Blood Culture - Preliminary Blood - Right Hand No Growth 1 Day 07/23/24 04:30 Blood Culture - Preliminary Blood - Left Hand No Growth 1 Day Assessment/Plan (1) History of stroke: Code(s): Z86.73 - Personal history of transient ischemic attack (TIA), and cerebral infarction without residual deficits (2) UTI (urinary tract infection): Qualifiers: Urinary tract infection type: acute cystitis Code(s): N39.0 - Urinary tract infection, site not specified (3) Altered mental status: Qualifiers: Altered mental status type: delirium Qualified Code(s): R41.0 - Disorientation, unspecified Code(s): R41.82 - Altered mental status, unspecified (4) Counseling regarding advance care planning and goals of care: Code(s): Z71.89 - Other specified counseling Plan Spent 30 minutes with patient and family at bedside. Reviewed current conditionand overall plan of care. Goals are aggressive. Resuscitation preferences DNRCCA without intubation. Code form completed and order changed. Will continue to follow for support. Thank you for the consult. Documented By: Sylvie Florez DO 07/24/24 1142 Signed By: <Electronically signed by Sylvie Florez DO> 07/24/24 7640 [facility] Work Phone: 1(154) 341-208904-28-2025 Progress note Author Jhon Abreu [facility] Note Date/Time July 24, 2024 1:1 4pm [facility] [address] [place] [address] Physiatry(Rehab) Progress Note Signed Patient: Janelle Burt MR#: [id number] : 1940 Acct:[id number] Age/Sex: 83 / F Adm Date: 5 Loc: 4C Room: [address] [place] [address] Type: ADM IN Attending Dr: Jovani Sibley MD Copies to: ~ Date of Service: 07/24/2024 Subjective Subjective Narrative: Seizure disorder 83-year-old female with medical history as noted presenting with functional decline in the setting of new onset seizure precipitated by hyponatremia and urinary tract infection. Of note, she had a stroke in January 2024 She had a fall at home. Noted to have seizure episode in the emergency room andis on Keppra. EEG and MRI are pending. She is being treated for UTI and her sodium is being corrected. Palliative care was also consulted to assist with goals of care. Seen and examined at bedside, son and daughter present. Her [facility] discharge. Both agreeable to rehab unit if indicated. Review of Systems Review of Systems All other systems reviewed & are negative unless noted below or in HPI Exam Physical Exam Vital Signs: Temp Pulse Resp BP Pulse Ox O2 Del Method O2 Flow Rate 98.1 F 60 18 121/58 L 97 Room Air 2 07/24/24 12:00 07/24/24 12:00 07/24/24 12:00 07/24/24 12:00 07/24/24 12:00 07/24/24 12:00 07/23/24 08:00 Narrative: Pleasant NAD AO x 2 Generally weak Non-focal neurologic exam. Objective Labs 07/24/24 04:22 07/24/24 04:22 Labs: Laboratory Results - last 24 hr 07/24/24 04:22 Corrected WBC 6.0 Uncorrected WBC Count 6.0 RBC 4.29 Hgb 13.3 Hct 38.1 MCV 88.9 MCH 31.0 MCHC 34.9 RDW 13.5 Plt Count 182 MPV 7.5 Neut % (Auto) 60.6 Lymph % (Auto) 25.9 [place] % (Auto) 10.8 Eos % (Auto) 1.4 Baso % (Auto) 1.3 Nucleat RBC Rel Count 0.0 Neut # (Auto) 3.6 Lymph # (Auto) 1.5 [place] # (Auto) 0.6 Eos # (Auto) 0.1 Baso # (Auto) 0.1 PHA Creatinine Clear 39.82 Sodium 133 L Potassium 3.7 Chloride 101 Carbon Dioxide 26.0 Anion Gap 9.7 BUN 12 Creatinine 0.87 Est GFR (CKD-EPI) > 60.0 Glucose 89 Calcium 8.7 Total Bilirubin 0.8 AST 25 ALT 9 Alkaline Phosphatase 39 Total Protein 5.8 L Albumin 3.3 L Globulin 2.5 Albumin/Globulin Ratio 1.3 Medications and Allergies Allergies and Active Meds: Allergies amlodipine (From Norvasc) Allergy (Unknown, Verified 07/22/24 21:12) Unknown Reaction ciprofloxacin Allergy (Unknown, Verified 07/22/24 21:12) Comment:joint pain clonidine (From Catapres) Allergy (Unknown, Verified 07/22/24 21:12) Unknown Reaction hydralazine Allergy (Unknown, Verified 07/22/24 21:12) Unknown Reaction lisinopril Allergy (Unknown, Verified 07/22/24 21:12) Unknown Reaction methylprednisolone (From Medrol) Allergy (Unknown, Verified 07/22/24 21:12) Unknown Reaction Swqooxp-XBF-HwU Reductase Inhibitor (Obcwgue-Jwe-Gqf Reductase Inhibitor) Allergy (Unknown, Verified 07/22/24 21:12) Unknown Reaction Sulfa (Sulfonamide Antibiotics) Allergy (Unknown, Verified 07/22/24 21:12) Unknown Reaction Active Medications Generic Name Dose Route Start Last Admin Trade Name Freq PRN Reason Stop Dose Admin Acetaminophen 650 mg 07/23/24 04:11 07/23/24 04:25 Acetaminophen 650 Mg Supp.Rect [place] 07/23/25 04:10 650 mg Q6HR PRN Administration Fever or Pain Apixaban 5 mg 07/23/24 21:00 07/24/24 08:50 Apixaban 5 Mg Tablet PO 07/23/25 20:59 5 mg BID [facility] Administration Aspirin 81 mg 07/23/24 14:15 07/24/24 08:50 Aspirin 81 Mg Tablet.Dr PO 07/23/25 14:14 81 mg DAILY [facility] Administration Atorvastatin Calcium 40 mg 07/24/24 09:00 07/24/24 08:50 Atorvastatin 40 Mg Tablet PO 07/24/25 08:59 40 mg DAILY [facility] Administration Levofloxacin 750 mg in 150 mls @ 100 mls/hr 07/23/24 11:00 07/23/24 11:31 Levaquin IV 100 mls/hr Q48H [facility] Administration Levetiracetam 1,000 mg in 100 mls @ 400 mls/hr 07/23/24 09:00 07/24/24 08:50 Keppra IV 07/23/25 08:59 400 mls/hr BID [facility] Administration Diltiazem HCl 100 mg in 100 mls @ 10 mls/hr 07/23/24 14:15 07/24/24 11:26 Cardizem IV 07/23/25 14:14 Not Given .Q10H [facility] Protocol 10 MG/HR Sodium Chloride 100 mls @ 20 mls/hr 07/23/24 14:15 07/24/24 11:27 0.9% Sodium Chloride 100 Ml IV 07/23/25 14:14 Not Given .Q5H [facility] Levothyroxine Sodium 100 mcg 07/24/24 06:30 07/24/24 06:32 Levothyroxine 100 Mcg Tablet PO 07/24/25 06:29 100 mcg DAILY@0630 [facility] Administration Lorazepam 0.5 mg 07/23/24 00:11 Lorazepam 2 Mg/Ml Vial IV-PUSH 01/19/25 00:10 Q2H PRN Agitation Metoprolol Tartrate 25 mg 07/23/24 14:05 07/24/24 08:50 Metoprolol Tartrate 25 Mg Tablet PO 07/23/25 14:04 25 mg BID [facility] Administration Sodium Chloride 0 ml 07/22/24 21:10 07/23/24 00:14 Sodium Chloride 0.9 % 10 Ml Syringe IV-PUSH 07/22/25 21:09 10 ml PRN PRN Administration Flush Sodium Chloride 10 ml 07/22/24 22:03 Sodium Chloride 0.9 % 10 Ml Vial.Pf INJECTION 07/22/25 22:02 PRN PRN 1:1 ATIVAN DILUTION Sodium Chloride 10 ml 07/22/24 23:45 07/24/24 08:51 Sodium Chloride 0.9 % 10 Ml Syringe IV-PUSH 07/22/25 23:44 10 ml Q8H [facility] Administration Sodium Chloride 10 ml 07/23/24 00:11 Sodium Chloride 0.9 % 10 Ml Vial.Pf INJECTION 07/23/25 00:10 Q2H PRN Ativan dilution Assessment/Plan Assessment/Plan (1) Accelerated hypertension: (2) UTI (urinary tract infection): (3) Seizure: (4) Hyponatremia: (5) CKD (chronic kidney disease) stage 3, GFR 30-59 ml/min: Qualifiers: Chronic kidney disease stage 3 subtype: stage 3b (GFR 30-44) Qualified Code(s): N18.32 - Chronic kidney disease, stage 3b (6) Hypothyroid: Qualifiers: Hypothyroidism type: acquired Qualified Code(s): E03.9 - Hypothyroidism, unspecified (7) Atrial fibrillation: Qualifiers: Atrial fibrillation type: paroxysmal Qualified Code(s): I48.0 - Paroxysmal atrial fibrillation Plan 83-year-old female with medical history as noted presenting with functional decline in the setting of new onset seizure precipitated by hyponatremia and urinary tract infection., Suffered a posterior stroke in 2023 with residual vision deficits. -Seems to be improved today compared to days prior based on chart review. Will monitor tolerance to therapy. I think she would be a good rehab candidate pending the results of her EEG and MRI. Patient is medically stable and appropriate for admission to the acute inpatientrehabilitation unit, would benefit from and tolerate least 3 hours daily, at least 5 days/week, of physical and occupational therapy, with speech therapy andadditional therapy as needed to address functional impairment related to above documented medical conditions and facilitate community discharge home in a timely fashion. Patient has medical complexity that cannot be best managed at [facility] level of care and requires at least 3 times weekly encounters with relay associate for medical management and for plan of care review / changes. Patient was personally seen by me, Dr. Abreu, on the day of encounter, reviewed the history and the relevant portions of the chart, including current orders, allied health and risk assessment consultant notes, labs/imaging and performed dozier elements of exam and I formulated the plan of care and facilitated the medical decision making. I completed a substantive portion of this encounter, the medical decision makingportion of this note in its entirety, including Allied health note review, nursing note review, risk assessment consultant note review, discussion with nursing and case management, and more than 50% of my time was spent on counseling and coordination of care, time spent 45 minutes Documented By: Jhon Abreu MD 07/24/24 1307 Signed By: <Electronically signed by Jhon Abreu MD> 07/24/24 1314 [facility] Work Phone: [phone]) [phone] [place] [id number] Palliative Care Consult Note Signed Patient: Janelle Burt MR#: [id number] : 1940 Acct:[id number] Age/Sex: 83 / F Adm Date: 5 Loc: Room: [address] [place] [address] Type: ADM IN Attending Dr: Jovani Sibley MD Copies to: DO Antonino Santos MD Rahul Prasad, MD~ HPI Data of Consult Date of Consult: 07/24/2024 Requesting Physician: Jovani Sibley MD Primary Care Provider: Antonino Gustafson MD Consult Narrative Reason for Consult: goals of care HPI: Ms Burt is an 83 y.o female with past medical hx of 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 In the ER, patient was alert but confused. Vitals showed significant hypertesnion. history was provided by her daughter. Patient reported not feeling well that morning, noted to be starring off into space. Then started feeling ill and had a fall. Family believe patient hit her head given that she was wedged in the bathroom with narrow limited space for her to movewithin. Also she noticed she had a contusion to her left earlobe. While in the ER, patient developed developed generalized seizure, witnessed by her daughter, described as twitchiness of her whole body with stiffness lasting up to 1 minute. Treated inthe ED for generalized tonic-clonic seizure with1 mg of ativan and loaded with Keppra. Initial CBC and BMP WNL except sodium of 130. UA showed leukocyte esterase, 20-49WBC, with bacteria. Head CT showed chronic microvascular changeswithout acute processes. Head CTA was negative for occlusion. 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 Chest xray showed bibasilar interstitial thickening likely atelectasis. Neurology was contacted in ED and recommended admission. She was admitted to theICU for UTI and seizure. Critical care consulted and peripherally following. She was started on nicardipene drip, which has since been discontinued, started on IV levaquin, then switched to cefepime. Home Eliquis was held and receiving l ovenox. Neurology concerned infection lowered patient's seizure threshold, hyponatremia and secondary to patient's previous stroke. She remains on Keppra. EEG is pending. She developed a fib with RVR. Started on cardiazem. Currently remainson drip. Rate is improved. Had MRI this morning and results pending. Obtaining ECHO. WBC did jump to 12.3 yesterday but today is improved to 6.0. Sodium improved todayat 133. She did work with PT this morning. Request for inpatient rehab evaluation has been placed. Palliative care has been consulted to assist with goals of care. patient is sitting up in bed feeding herself lunch. States she is doing well. Has no concerns. Denies pain, shortness of breath. Family is at bedside. Updated on current condition and overall plan ofcare. Patient lives home alone in [place]. Has a 3story home. Her laundry and shower are in the basement. She climbs stairs multiple times a day without issue. Shehas not had any recent falls prior to this episode. 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 Her children state she is doing well at home. Family does report overall poor appetite. She has 3 kids. Close with her family. Patient is agreeable to inpatient rehab vs SNF for therapy prior to returning home. She would like to continue all aggressive care at this time. Family is supportive. She has quickly improved. They do report she was septic from UTI in February of last year so are concerned if she needs daily prophylatic antibiotics. Patient does have HPOA paperwork in hand. Daughter Lesly is primary. Reviewed resuscitation preferences. She previously chose DNR without intubation. Reviewed risks and benefits of CPR. Janelle states when its her time, she does not want to be brought back. She knows CPR and breathing machines usually do not have good outcomes and being independent at home is important to her. She would like DNRCCA without intubation. Family is in agreement. Review of Systems Review of Systems All other systems reviewed & are negative unless noted below or in HPI [facility] Medical History Ischemic cerebral vascular accident (CVA) due to stenosis of large extracranial artery Fracture of left foot Retina disorder, left History of left heart catheterization (LHC) Hypoparathyroidism Hypertension Hyperlipidemia Cataract Secondary hyperparathyroidism Hypothyroidism, unspecified Hypertensive chronic kidney disease with stage 1 through stage 4 chronic kidney disease, or unspecified chronic kidney disease History of falling Essential (primary) hypertension Elevated blood pressure reading Dyslipidemia CKD (chronic kidney disease) stage 4, GFR 15-29 ml/min Chronic kidney disease, stage 3 unspecified Cervical cancer CAD in [place] artery Bronchitis, not specified as acute or chronic 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 Cataract Hypertension Surgical History History of partial hysterectomy History of appendectomy S/P partial hysterectomy Family History Father Stroke Mother Stroke Sister Breast cancer Myocardial infarction Daughter Cancer Legacy FamHx Relation: Daughter(s); Legacy FamHx Problem: Diagnosed with Cancer Father History of stroke Legacy FamHx Problem: Diagnosed with Stroke Mother History of stroke Legacy FamHx Problem: Diagnosed with Stroke Sister Cancer Legacy FamHx Problem: Diagnosed with Cancer Heart disease Social History Smoking Status: Unknown if ever smoked Substance Use Type: None Allergies & Medications Medications and Allergies Allergies amlodipine (From Norvasc) Allergy (Unknown, Verified 07/22/24 21:12) Unknown Reaction ciprofloxacin Allergy (Unknown, Verified 07/22/24 21:12) Comment:joint pain clonidine (From Catapres) Allergy (Unknown, Verified 07/22/24 21:12) Unknown Reaction hydralazine Allergy (Unknown, Verified 07/22/24 21:12) Unknown Reaction lisinopril Allergy (Unknown, Verified 07/22/24 21:12) Unknown Reaction methylprednisolone (From Medrol) Allergy (Unknown, Verified 07/22/24 21:12) Unknown Reaction Pkzaqzt-WXX-GqB Reductase Inhibitor (Zcesuig-Qgr-Xhb Reductase Inhibitor) Allergy (Unknown, Verified 07/22/24 21:12) Unknown Reaction Sulfa (Sulfonamide Antibiotics) Allergy (Unknown, Verified 07/22/24 21:12) Unknown Reaction Home Medications aspirin 81 mg tablet,delayed release (Neli Low Dose Aspirin) 81 mg PO DAILY 03/12/17 [History Confirmed 07/22/24] fenofibrate 54 mg tablet 54 mg PO DAILY 03/12/17 [History Confirmed 07/22/24] nitroglycerin 0.4 mg sublingual tablet 0.4 mg sublingual Q5M PRN chest pain 30 days #25 tabs 01/28/23 [Rx Confirmed 07/22/24] metoprolol tartrate 25 mg tablet 25 mg PO BID #60 tabs 01/29/23 [Rx Confirmed 07/22/24] atorvastatin 40 mg tablet 40 mg PO DAILY 03/14/24 [History Confirmed 07/22/24] levothyroxine 100 mcg tablet 100 mcg PO DAILY 03/28/24 [History Confirmed 07/22/24] apixaban 5 mg tablet (Eliquis) 5 mg PO BID #54 tabs 05/22/24 [Rx Confirmed 07/22/24] valsartan 160 mg tablet 160 mg PO DAILY 05/22/24 [History Confirmed 07/22/24] Active Medications Acetaminophen (Acetaminophen 650 Mg Supp.Rect) 650 mg AK Q6HR PRN PRN Reason: Fever or Pain Stop: 07/23/25 04:10 Last Admin: 07/23/24 04:25 Dose: 650 mg Apixaban (Apixaban 5 Mg Tablet) 5 mg PO BID [facility] Stop: 07/23/25 20:59 Last Admin: 07/24/24 08:50 Dose: 5 mg Aspirin (Aspirin 81 Mg Tablet.Dr) 81 mg PO DAILY [facility] Stop: 07/23/25 14:14 Last Admin: 07/24/24 08:50 Dose: 81 mg Atorvastatin Calcium (Atorvastatin 40 Mg Tablet) 40 mg PO DAILY [facility] Stop: 07/24/25 08:59 Last Admin: 07/24/24 08:50 Dose: 40 mg Levofloxacin (Levaquin) 750 mg in 150 mls @ 100 mls/hr IV Q48H [facility] Last Admin: 07/23/24 11:31 Dose: 100 mls/hr Levetiracetam (Keppra) 1,000 mg in 100 mls @ 400 mls/hr IV BID [facility] Stop: 07/23/25 08:59 Last Admin: 07/24/24 08:50 Dose: 400 mls/hr Diltiazem HCl (Cardizem) 100 mg in 100 mls @ 10 mls/hr IV .Q10H [facility]; Protocol Stop: 07/23/25 14:14 Last Admin: 07/24/24 11:26 Dose: Not Given Sodium Chloride (0.9% Sodium Chloride 100 Ml) 100 mls @ 20 mls/hr IV .Q5H [facility] Stop: 07/23/25 14:14 Last Admin: 07/24/24 11:27 Dose: Not Given Levothyroxine Sodium (Levothyroxine 100 Mcg Tablet) 100 mcg PO DAILY@0630 [facility] Stop: 07/24/25 06:29 Last Admin: 07/24/24 06:32 Dose: 100 mcg Lorazepam (Lorazepam 2 Mg/Ml Vial) 0.5 mg IV-PUSH Q2H PRN PRN Reason: Agitation Stop: 01/19/25 00:10 Metoprolol Tartrate (Metoprolol Tartrate 25 Mg Tablet) 25 mg PO BID [facility] Stop: 07/23/25 14:04 Last Admin: 07/24/24 08:50 Dose: 25 mg Sodium Chloride (Sodium Chloride 0.9 % 10 Ml Syringe) 0 ml IV-PUSH PRN PRN PRN Reason: Flush Stop: 07/22/25 21:09 Last Admin: 07/23/24 00:14 Dose: 10 ml Sodium Chloride (Sodium Chloride 0.9 % 10 Ml Vial.Pf) 10 ml INJECTION PRN PRN PRN Reason: 1:1 ATIVAN DILUTION Stop: 07/22/25 22:02 Sodium Chloride (Sodium Chloride 0.9 % 10 Ml Syringe) 10 ml IV-PUSH Q8H [facility] Stop: 07/22/25 23:44 Last Admin: 07/24/24 08:51 Dose: 10 ml Sodium Chloride (Sodium Chloride 0.9 % 10 Ml Vial.Pf) 10 ml INJECTION Q2H PRN PRN Reason: Ativan dilution Stop: 07/23/25 00:10 Exam Physical Exam Vital Signs: Temp Pulse Resp BP Pulse Ox O2 Del Method O2 Flow Rate 98.0 F 54 L 14 161/69 H 96 Room Air 2 07/24/24 08:00 07/24/24 08:00 07/24/24 08:00 07/24/24 08:00 07/24/24 08:00 07/24/24 08:00 07/23/24 08:00 Const General: cooperative, comfortable, frail appearing and not ill appearing Nutritional Appearance: thin Orientation: alert, awake and oriented x3 Limitations: mental status not altered HEENT Head: normal to inspection Mouth: oral mucosae normal Other: bruising of left pinna Resp Effort & Inspection: normal respiratory effort Auscultation: clear to auscultation bilaterally, no rhonchi and no wheezes Cardio Rate: regular rate Rhythm: abnormal rhythm Heart Sounds: S1 normal and S2 normal GI Palpation: soft, not firm, no guarding and nontender Skin General: ecchymosis Neuro General: patient alert, patient awake, patient oriented x3 and moves all extremities Cranial Nerves: CN's II-XII intact bilaterally Cognition: normal cognition Speech: speech normal Extrem General: no edema Psych Appearance: grossly normal Mental Status: mental status grossly normal Affect: normal affect Speech and Movement: speech and movement normal Attitude: cooperative Thought Process: normal Thought Content: normal Insight: insight good Judgment: judgment good Results - Palliative Care Labs 07/24/24 04:22 07/24/24 04:22 Labs: Laboratory Last Values Corrected WBC 6.0 X10E3/uL (3.8-11.6) 07/24/24 04:22 Uncorrected WBC Count 6.0 x10E3/uL (3.8-11.6) 07/24/24 04:22 RBC 4.29 x10E6/uL (3.60-5.00) 07/24/24 04:22 Hgb 13.3 g/dL (11.8-15.4) 07/24/24 04:22 POC Hgb 14.6 g/dl (12.0-17.0) 07/22/24 21:12 Hct 38.1 % (34.0-46.4) 07/24/24 04:22 POC Hct 43.0 % (38.0-51.0) 07/22/24 21:12 MCV 88.9 fl (80-100) 07/24/24 04:22 MCH 31.0 pg (24.7-34.3) 07/24/24 04:22 MCHC 34.9 g/dL (32.0-35.0) 07/24/24 04:22 RDW 13.5 % (11.9-15.3) 07/24/24 04:22 Plt Count 182 x10E3/uL (150-450) 07/24/24 04:22 MPV 7.5 fl (6.3-10.7) 07/24/24 04:22 Neut % (Auto) 60.6 % (.) 07/24/24 04:22 Lymph % (Auto) 25.9 % (.) 07/24/24 04:22 [place] % (Auto) 10.8 % (.) 07/24/24 04:22 Eos % (Auto) 1.4 % (.) 07/24/24 04:22 Baso % (Auto) 1.3 % (.) 07/24/24 04:22 Nucleat RBC Rel Count 0.0 /100 WBC (0-0.5) 07/24/24 04:22 Neut # (Auto) 3.6 x10E3/uL (1.8-7.7) 07/24/24 04:22 Lymph # (Auto) 1.5 x10E3/uL (1.00-4.8) 07/24/24 04:22 [place] # (Auto) 0.6 x10E3/uL (0.0-0.8) 07/24/24 04:22 Eos # (Auto) 0.1 x10E3/uL (0.0-0.45) 07/24/24 04:22 Baso # (Auto) 0.1 x10E3/uL (0.0-0.2) 07/24/24 04:22 Monocyte Dist Width 18.56 % (0.00-20.00) 07/23/24 04:29 PT 14.9 Seconds (9.0-12.9) H 07/22/24 21:10 INR 1.3 07/22/24 21:10 APTT 33.6 Seconds (25.1-36.5) 07/22/24 21:10 Sample Site Left radial 07/23/24 11:04 ABG pH 7.46 (7.35-7.45) H 07/23/24 11:04 ABG pCO2 29.7 mmHg (35.0-45.0) L* 07/23/24 11:04 ABG pO2 82.4 mmHg (80.0-100.0) 07/23/24 11:04 ABG HCO3 20.5 mmol/L (23.0-29.0) L 07/23/24 11:04 ABG Total CO2 21.4 mmol/L (23.0-27.0) L 07/23/24 11:04 ABG O2 Saturation 95.8 % (95.0-100.0) 07/23/24 11:04 ABG O2 Content 7.8 mmol/L (6.6-9.7) 07/23/24 11:04 ABG Base Excess -2.3 mmol/L (-3.0-3.0) 07/23/24 11:04 FiO2 21 % 07/23/24 11:04 Critical Value 07/23/24 11:04 PHA Creatinine Clear 39.82 07/24/24 04:22 POC Sodium 132 mmol/L (138-146) L 07/22/24 21:12 Sodium 133 mmol/L (136-145) L 07/24/24 04:22 POC Potassium 3.7 mmol/L (3.5-4.9) 07/22/24 21:12 Potassium 3.7 mmol/L (3.5-5.1) 07/24/24 04:22 POC Chloride 97.0 mmol/L (98-109) L 07/22/24 21:12 Chloride 101 mmol/L (98-107) 07/24/24 04:22 Carbon Dioxide 26.0 mmol/L (21.0-31.0) 07/24/24 04:22 POC Total CO2 25 mmol/L (23-29) 07/22/24 21:12 Anion Gap 9.7 mEq/L (6.0-15.0) 07/24/24 04:22 POC BUN 18 mg/dl (8-26) 07/22/24 21:12 BUN 12 mg/dL (7-25) 07/24/24 04:22 Creatinine 0.87 mg/dL (0.60-1.20) 07/24/24 04:22 POC Creatinine 1.2 mg/dl (0.6-1.3) 07/22/24 21:12 Est GFR (CKD-EPI) > 60.0 mL/Min 07/24/24 04:22 Glucose 89 mg/dL (70-100) 07/24/24 04:22 POC Whole Bld Glucose 117 mg/dl (70-105) H 07/22/24 21:12 POC Glucose 113 mg/dl 07/22/24 21:11 Lactic Acid 1.6 mmol/L (0.5-1.9) 07/23/24 06:07 Calcium 8.7 mg/dL (8.6-10.3) 07/24/24 04:22 POC Ioniz Calcium [place] 1.18 mol/L (1.12-1.32) 07/22/24 21:12 Magnesium 2.0 mg/dL (1.9-2.7) 07/23/24 06:07 Total Bilirubin 0.8 mg/dl (0.3-1.0) 07/24/24 04:22 AST 25 U/L (13-39) 07/24/24 04:22 ALT 9 U/L (7-52) 07/24/24 04:22 Alkaline Phosphatase 39 U/L (34-104) 07/24/24 04:22 Total Creatine Kinase 88 U/L (30-223) 07/22/24 21:10 Troponin I High Sens 9 ng/L (0-15) 07/22/24 21:10 Total Protein 5.8 gm/dL (6.4-8.9) L 07/24/24 04:22 Albumin 3.3 gm/dL (3.5-5.7) L 07/24/24 04:22 Globulin 2.5 gm/dL 07/24/24 04:22 Albumin/Globulin Ratio 1.3 07/24/24 04:22 Prolactin 24.67 ng/mL (2.74-19.64) H 07/23/24 00:24 Urine Color Light-yellow (Yellow) 07/22/24 21:55 Urine Appearance Clear (Clear) 07/22/24 21:55 Urine pH 8.0 (5.0-9.0) 07/22/24 21:55 Ur Specific [place] 1.025 (1.001-1.030) 07/22/24 21:55 Urine Protein Negative mg/dL (Negative) 07/22/24 21:55 Urine Glucose (UA) Normal mg/dL (Normal) 07/22/24 21:55 Urine Ketones Negative (Negative) 07/22/24 21:55 Urine Occult Blood Negative (Negative) 07/22/24 21:55 Urine Nitrite Negative (Negative) 07/22/24 21:55 Urine Bilirubin Negative (Negative) 07/22/24 21:55 Urine Urobilinogen Normal mg/dL (Normal) 07/22/24 21:55 Ur Leukocyte Esterase 2+ (Negative) H 07/22/24 21:55 Urine RBC 3-4 /HPF (0-4) 07/22/24 21:55 Urine WBC 20-49 /HPF (0-4) H 07/22/24 21:55 Ur Squamous Epith Cells N/A 07/22/24 21:55 Urine Bacteria 1+ /HPF (None Seen) H 07/22/24 21:55 Hyaline Casts None /LPF (0-8) 07/22/24 21:55 Microbiology Microbiology: 07/22/24 21:55 Urine Culture - Preliminary Urine - Clean-Voided Midstream Pseudomonas aeruginosa 07/23/24 04:36 Blood Culture - Preliminary Blood - Right Hand No Growth 1 Day 07/23/24 04:30 Blood Culture - Preliminary Blood - Left Hand No Growth 1 Day Assessment/Plan (1) History of stroke: Code(s): Z86.73 - Personal history of transient ischemic attack (TIA), and cerebral infarction without residual deficits (2) UTI (urinary tract infection): Qualifiers: Urinary tract infection type: acute cystitis Code(s): N39.0 - Urinary tract infection, site not specified (3) Altered mental status: Qualifiers: Altered mental status type: delirium Qualified Code(s): R41.0 - Disorientation, unspecified Code(s): R41.82 - Altered mental status, unspecified (4) Counseling regarding advance care planning and goals of care: Code(s): Z71.89 - Other specified counseling Plan Spent 30 minutes with patient and family at bedside. Reviewed current conditionand overall plan of care. Goals are aggressive. Resuscitation preferences DNRCCA without intubation. Code form completedand order changed. Will continue to follow for support. Thank you for the consult. Documented By: Sylvie Florez DO 07/24/24 1142 Signed By: 07/24/24 1337 [facility]04-28-2025 [place] [address] Physiatry(Rehab) Progress Note Signed Patient: Janelle Burt MR#: [id number] : 1940 Acct:[id number] Age/Sex: 83 / F Adm Date: 5 Loc: Room: 6C1055-0 Type: ADM IN Attending Dr: Jovani Sibley MD Copies to: ~ Date of Service: 07/24/2024 Subjective Subjective Narrative: Seizure disorder 83-year-old female with medical history as noted presenting with functional decline in the setting of new onset seizure precipitated by hyponatremia and urinary tract infection. Of note, she had a stroke in January 2024 She had a fall at home. Noted to have seizure episode in the emergency room andis on Keppra. EEG and MRI are pending. She is being treated for UTI and her sodium is being corrected. Palliative care was also consulted to assist with goals of care. Seen and examined at bedside, son and daughter present. Her son will be able toprovide 19/10 supervision at discharge. Both agreeable to rehab unit if indicated. Review of Systems Review of Systems All other systems reviewed & are negative unless noted below or in HPI Exam Physical Exam Vital Signs: Temp Pulse Resp BP Pulse Ox O2 Del Method O2 Flow Rate 98.1 F 60 18 121/58 L 97 Room Air 2 07/24/24 12:00 07/24/24 12:00 07/24/24 12:00 07/24/24 12:00 07/24/24 12:00 07/24/24 12:00 07/23/24 08:00 Narrative: Pleasant NAD AO x 2 Generally weak Non-focal neurologic exam. Objective Labs 07/24/24 04:22 07/24/24 04:22 Labs: Laboratory Results - last 24 hr 07/24/24 04:22 Corrected WBC 6.0 Uncorrected WBC Count 6.0 RBC 4.29 Hgb 13.3 Hct 38.1 MCV 88.9 MCH 31.0 MCHC 34.9 RDW 13.5 Plt Count 182 MPV 7.5 Neut % (Auto) 60.6 Lymph % (Auto) 25.9 [place] % (Auto) 10.8 Eos % (Auto) 1.4 Baso % (Auto) 1.3 Nucleat RBC Rel Count 0.0 Neut # (Auto) 3.6 Lymph # (Auto) 1.5 [place] # (Auto) 0.6 Eos # (Auto) 0.1 Baso # (Auto) 0.1 PHA Creatinine Clear 39.82 Sodium 133 L Potassium 3.7 Chloride 101 Carbon Dioxide 26.0 Anion Gap 9.7 BUN 12 Creatinine 0.87 Est GFR (CKD-EPI) > 60.0 Glucose 89 Calcium 8.7 Total Bilirubin 0.8 AST 25 ALT 9 Alkaline Phosphatase 39 Total Protein 5.8 L Albumin 3.3 L Globulin 2.5 Albumin/Globulin Ratio 1.3 Medications and Allergies Allergies and Active Meds: Allergies amlodipine (From Norvasc) Allergy (Unknown, Verified 07/22/24 21:12) Unknown Reaction ciprofloxacin Allergy (Unknown, Verified 07/22/24 21:12) Comment:joint pain clonidine (From Catapres) Allergy (Unknown, Verified 07/22/24 21:12) Unknown Reaction hydralazine Allergy (Unknown, Verified 07/22/24 21:12) Unknown Reaction lisinopril Allergy (Unknown, Verified 07/22/24 21:12) Unknown Reaction methylprednisolone (From Medrol) Allergy (Unknown, Verified 07/22/24 21:12) Unknown Reaction Deerdhb-MJA-KoE Reductase Inhibitor (Cwnnyxu-Uas-Jlh Reductase Inhibitor) Allergy (Unknown, Verified 07/22/24 21:12) Unknown Reaction Sulfa (Sulfonamide Antibiotics) Allergy (Unknown, Verified 07/22/24 21:12) Unknown Reaction Active Medications Generic Name Dose Route Start Last Admin Trade Name Freq PRN Reason Stop Dose Admin Acetaminophen 650 mg 07/23/24 04:11 07/23/24 04:25 Acetaminophen 650 Mg Supp.Rect [place] 07/23/25 04:10 650 mg Q6HR PRN Administration Fever or Pain Apixaban 5 mg 07/23/24 21:00 07/24/24 08:50 Apixaban 5 Mg Tablet PO 07/23/25 20:59 5 mg BID [facility] Administration Aspirin 81 mg 07/23/24 14:15 07/24/24 08:50 Aspirin 81 Mg Tablet. PO 07/23/25 14:14 81 mg DAILY [facility] Administration Atorvastatin Calcium 40 mg 07/24/24 09:00 07/24/24 08:50 Atorvastatin 40 Mg Tablet PO 07/24/25 08:59 40 mg DAILY [facility] Administration Levofloxacin 750 mg in 150 mls @ 100 mls/hr 07/23/24 11:00 07/23/24 11:31 Levaquin IV 100 mls/hr Q48H [facility] Administration Levetiracetam 1,000 mg in 100 mls @ 400 mls/hr 07/23/24 09:00 07/24/24 08:50 Keppra IV 07/23/25 08:59 400 mls/hr BID [facility] Administration Diltiazem HCl 100 mg in 100 mls @ 10 mls/hr 07/23/24 14:15 07/24/24 11:26 Cardizem IV 07/23/25 14:14 Not Given .Q10H [facility] Protocol 10 MG/HR Sodium Chloride 100 mls @ 20 mls/hr 07/23/24 14:15 07/24/24 11:27 0.9% Sodium Chloride 100 Ml IV 07/23/25 14:14 Not Given .Q5H [facility] Levothyroxine Sodium 100 mcg 07/24/24 06:30 07/24/24 06:32 Levothyroxine 100 Mcg Tablet PO 07/24/25 06:29 100 mcg DAILY@0630 [facility] Administration Lorazepam 0.5 mg 07/23/24 00:11 Lorazepam 2 Mg/Ml Vial IV-PUSH 01/19/25 00:10 Q2H PRN Agitation Metoprolol Tartrate 25 mg 07/23/24 14:05 07/24/24 08:50 Metoprolol Tartrate 25 Mg Tablet PO 07/23/25 14:04 25 mg BID [facility] Administration Sodium Chloride 0 ml 07/22/24 21:10 07/23/24 00:14 Sodium Chloride 0.9 % 10 Ml Syringe IV-PUSH 07/22/25 21:09 10 ml PRN PRN Administration Flush Sodium Chloride 10 ml 07/22/24 22:03 Sodium Chloride 0.9 % 10 Ml Vial.Pf INJECTION 07/22/25 22:02 PRN PRN 1:1 ATIVAN DILUTION Sodium Chloride 10 ml 07/22/24 23:45 07/24/24 08:51 Sodium Chloride 0.9 % 10 Ml Syringe IV-PUSH 07/22/25 23:44 10 ml Q8H [facility] Administration Sodium Chloride 10 ml 07/23/24 00:11 Sodium Chloride 0.9 % 10 Ml Vial.Pf INJECTION 07/23/25 00:10 Q2H PRN Ativan dilution Assessment/Plan Assessment/Plan (1) Accelerated hypertension: (2) UTI (urinary tract infection): (3) Seizure: (4) Hyponatremia: (5) CKD (chronic kidney disease) stage 3, GFR 30-59 ml/min: Qualifiers: Chronic kidney disease stage 3 subtype: stage 3b (GFR 30-44) Qualified Code(s): N18.32 - Chronic kidney disease, stage 3b (6) Hypothyroid: Qualifiers: Hypothyroidism type: acquired Qualified Code(s): E03.9 - Hypothyroidism, unspecified (7) Atrial fibrillation: Qualifiers: Atrial fibrillation type: paroxysmal Qualified Code(s): I48.0 - Paroxysmal atrial fibrillation Plan 83-year-old female with medical history as noted presenting with functional decline in the setting of new onset seizure precipitated by hyponatremia and urinary tract infection., Suffered a posteriorstroke in 2023 with residual vision deficits. -Seems to be improved today compared to days prior based on chart review. Will monitor tolerance totherapy. I think she would be a good rehab candidate pending the results of her EEG and MRI. Patient is medically stable and appropriate for admission to the acute inpatientrehabilitation unit, would benefit from and tolerate least 3 hours daily, at least 5 days/week, of physical and occupational therapy, with speech therapy andadditional therapy as needed to address functional impairment related to above documented medical conditions and facilitate community discharge home in a timely fashion. Patient has medical complexity that cannot be best managed at [facility] level of care and requires at least 3 times weekly encounters with relay associate for medical management and for plan of care review / changes. Patient was personally seen by me, Dr. Abreu, on the day of encounter, reviewed the history and therelevant portions of the chart, including current orders, allied health and risk assessment consultant notes, labs/imaging and performed dozier elements of exam and I formulated the plan of care and facilitated the medical decision making. I completed a substantive portion of this encounter, the medical decision makingportion of this note in its entirety, including Allied health note review, nursing note review, risk assessment consultant note review,discussion with nursing and case management, and more than 50% of my time was spent on counseling and coordination of care, time spent 45 minutes Documented By: Jhon Abreu MD 07/24/24 1307 Signed By: 07/24/24 1314 [facility]04-27-2025 Progress note Author Jhony Davis [facility] Note Date/Time July 23, 2024 2:5 7pm [facility] [address] [place] [address] Progress Note Signed Patient: Janelle Burt MR#: [id number] : 1940 Acct:[id number] Age/Sex: 83 / F Adm Date: 5 Loc: Room: [address] [place] [address] Type: ADM IN Attending Dr: Jhony Davis MD Copies to: ~ Date of Service: 07/23/2024 Progress Narrative Note PROGRESS NOTE Progress Note: Please refer to my a.m. note for details. I went back to see the patient. The patient is fully awake and alert. Able to answer questions. Able to follow commands. Symmetrical motor and tone. Patient unfortunately went into A-fib with RVR. Systolic blood pressure is 130. Heart rate is 145. I ordered Cardizem 5 mg IV 1 dose followed by Cardizem drip titration between 5 to 50 mg an hour Resumed home Eliquis. I discussed her case with her family at the bedside. I provided them information about her disease, prognosis, expectation and trajectory. Answered all the questions. I spent about 1 hour and a half in the critical care evaluation, assessment and treatment of this patient thus far. Documented By: Jhony Davis MD 07/23/241455 Signed By: <Electronically signed by Jhony Davis MD> 07/23/24 1457 [facility] Work Phone: [phone] Consult note Author Guido Bridges [facility] Note Date/Time July 23, 2024 1:4 2pm [facility] [address] [place] [address] Neurology Consult Note Signed Patient: Janelle Burt MR#: [id number] : 1940 Acct:[id number] Age/Sex: 83 / F Adm Date: 5 Loc: Room: [address] [place] [address] Type: ADM IN Attending Dr: Jhony Davis MD Copies to: DO Antonino Wilson MD Rafik Massouh, MD~ HPI Consult Date: 07/23/24 Ingot Caster: Guido Bridges DO Consult Narrative HPI: Was asked to see this 83-year-old patient in new patient neurology consultation at the request of the hospitalist service for new onset seizure disorder. 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 The patient was brought to the ER by squad after the patient's daughter stated she was not feeling well and started to feel sick around 8 PM yesterday and brought her to the bathroom and then the patient's daughter heard the patient fall. The patient was noted to be wedged in the bathroom in a narrow space and was noticed to have a contusion on her left earlobe. When the daughter tried toawaken her mom she noted she was very tired and she called the squad at that time. Last known well was around 8 PM. Apparently in the emergency department the patient was noted to be conversant and oriented to person and place but not the event that occurred. Later during the emergency department and visit the patient developed a new onset generalized seizure with twitching of her whole body and stiffness and she was treated with Ativan and Keppra. I was contacted in regards to this last night and did recommend the treatment with Keppra in theICU admission. There was also a question if the patient had been staring into space while watching TV yesterday afternoon. Patient was resting comfortably when I entered the room. Her family was in the room with her. She was able to be easily aroused. She told me her name and date of . She was resting comfortably and wanted to go back to sleep but certainly responded well when we woke her up. Review of Systems Review of Systems Unobtainable due to mental status [facility] Medical History Ischemic cerebral vascular accident (CVA) due to stenosis of large extracranial artery Fracture of left foot Retina disorder, left History of left heart catheterization (LHC) Hypoparathyroidism Hypertension Hyperlipidemia Cataract Secondary hyperparathyroidism Hypothyroidism, unspecified Hypertensive chronic kidney disease with stage 1 through stage 4 chronic kidney disease, or unspecified chronic kidney disease History of falling Essential (primary) hypertension Elevated blood pressure reading Dyslipidemia CKD (chronic kidney disease) stage 4, GFR 15-29 ml/min Chronic kidney disease, stage 3 unspecified Cervical cancer CAD in [place] artery Bronchitis, not specified as acute or chronic 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 Cataract Hypertension Surgical History History of partial hysterectomy History of appendectomy S/P partial hysterectomy Family History Father Stroke Mother Stroke Sister Breast cancer Myocardial infarction Daughter Cancer Legacy FamHx Relation: Daughter(s); Legacy FamHx Problem: Diagnosed with Cancer Father History of stroke Legacy FamHx Problem: Diagnosed with Stroke Mother History of stroke Legacy Famx Problem: Diagnosed with Stroke Sister Cancer Legacy Famx Problem: Diagnosed with Cancer Heart disease Social History Smoking Status: Unknown if ever smoked Substance Use Type: None Meds Medications and Allergies Allergies amlodipine (From Norvasc) Allergy (Unknown, Verified 07/22/24 21:12) Unknown Reaction ciprofloxacin Allergy (Unknown, Verified 07/22/24 21:12) Comment:joint pain clonidine (From Catapres) Allergy (Unknown, Verified 07/22/24 21:12) Unknown Reaction hydralazine Allergy (Unknown, Verified 07/22/24 21:12) Unknown Reaction lisinopril Allergy (Unknown, Verified 07/22/24 21:12) Unknown Reaction methylprednisolone (From Medrol) Allergy (Unknown, Verified 07/22/24 21:12) Unknown Reaction Ndixrfe-ZWK-TgY Reductase Inhibitor (Zatizfh-Eyr-Cad Reductase Inhibitor) Allergy (Unknown, Verified 07/22/24 21:12) Unknown Reaction Sulfa (Sulfonamide Antibiotics) Allergy (Unknown, Verified 07/22/24 21:12) Unknown Reaction Home Medications aspirin 81 mg tablet,delayed release (Neli Low Dose Aspirin) 81 mg PO DAILY 03/12/17 [History Confirmed 07/22/24] fenofibrate 54 mg tablet 54 mg PO DAILY 03/12/17 [History Confirmed 07/22/24] nitroglycerin 0.4 mg sublingual tablet 0.4 mg sublingual Q5M PRN chest pain 30 days #25 tabs 01/28/23 [Rx Confirmed 07/22/24] metoprolol tartrate 25 mg tablet 25 mg PO BID #60 tabs 01/29/23 [Rx Confirmed 07/22/24] atorvastatin 40 mg tablet 40 mg PO DAILY 03/14/24 [History Confirmed 07/22/24] levothyroxine 100 mcg tablet 100 mcg PO DAILY 03/28/24 [History Confirmed 07/22/24] apixaban 5 mg tablet (Eliquis) 5 mg PO BID #54 tabs 05/22/24 [Rx Confirmed 07/22/24] valsartan 160 mg tablet 160 mg PO DAILY 05/22/24 [History Confirmed 07/22/24] Exam Physical Exam Vital Signs: Temp Pulse Resp BP Pulse Ox O2 Del Method O2 Flow Rate 100.1 F H 67 17 127/60 100 Room Air 2 07/23/24 08:00 07/23/24 10:00 07/23/24 10:00 07/23/24 10:00 07/23/24 10:00 07/23/24 11:00 07/23/24 08:00 Narrative: Narrative: GENERAL EXAM: Patient is alert and oriented x2. Patient was sleeping but easily arousable to verbal stimulus NEURO EXAM: Cranial nerves appear intact MOTOR EXAM: Strength is at least 3/5 throughout 4 extremity no pronator drift was appreciated Muscle tone and bulk are normal SENSORY EXAM: Denies paresthesias. Response to painful stimulus x 4 extremities CEREBELLAR EXAM: Coordination and gait were not able to be reliably tested Results - Neuro Laboratory Findings 07/23/24 04:29 07/23/24 06:07 Diagnostic Findings Imaging/Impressions: ITS Impressions Head CT 07/22/24 21:08 IMPRESSION: Chronic microvascular disease and Central involutional changes without evidence acute bleed or midline shift. Impression dictated by: Charli Ferrera M.D. 07/23/2024 7:56 AM Dictation Location: [place] [address] Head CTA 07/22/24 21:12 IMPRESSION: Negative for large vessel occlusion or hemodynamically significant stenosis involving the cervical vessels. Moderate burden of disease identified intracranially notably involving right distal M1 segment. Left A2 A3 segment. Moderate severe narrowing left P1 P2 segment RIVET MAKER. Moderate narrowing right P1 segment RIVET MAKER. Up to 50% narrowing involving both proximal ICAs Impression dictated by: Charli Ferrera M.D. 07/23/2024 8:46 AM Dictation Location: [place] [address] Assessment/Plan (1) Seizure: (2) Altered mental status: Qualifiers: Altered mental status type: delirium Qualified Code(s): R41.0 - Disorientation, unspecified (3) History of stroke: Plan It is my impression that the patient has altered mental status which I think is secondary to new onset of seizure. The patient was noted to have some altered mental status with a fall at home and I wonder if this was a first seizure event. The patient then had a generalized tonic-clonic seizure in the emergencydepartment and was treated with Ativan and Keppra. I believe this new onset seizure was multifactorial and secondary to the patient's history of old occipital stroke, hyponatremia and urinary tract infection Additionally, the patient may have had a lowering of seizure threshold due to urinary tract infection and the patient is being treated for this by the primaryservice and is noted to have a low-grade fever of 100.1. The patient was able to be easily aroused when I entered the room her family also noted this and the patient was able to identify her family members by name I suspect her difficulty in arousal earlier was postictal or secondary to medication of Ativan Workup: CT of the brain without contrast: No acute changes CT angiogram of the head and neck: No acute occlusion. Evidence of moderate intracranial vascular narrowing. MRI of the brain with and without contrast: Pending on a stat basis Echocardiogram: Pending Laboratory studies: Hyponatremia with a sodium of 130 this morning. Elevated white count with neutrophilic predominance UA is positive with 20-49 white blood cells and evidence of 2+ leukocyte esterase. Chest x-ray: Pending read Blood cultures: Pending Urine cultures: Pending Plan: Treatment of infection per the primary service Treatment of sodium abnormalities per the primary service Suggest normalization of blood pressure now I suggest continuation of Keppra Further recommendations pending clinical course and imaging and EEG results Please call with any change in condition, questions or concerns Documented By: Guido Bridges DO 5 [id number] Signed By: <Electronically signed by Guido Bridges DO> 07/23/[address] [place] [address] Work Phone: 1([phone]) 807-215904-27-2025 [place] [address] Progress Note Signed Patient: Janelle Burt MR#: [id number] : 1940 Acct:[id number] Age/Sex: 83 / F Adm Date: 5 Loc: Room: [address] [place] [address] Type: ADM IN Attending Dr: Jhony Davis MD Copies to: ~ Date of Service: 07/23/2024 Progress Narrative Note PROGRESS NOTE Progress Note: Please refer to my a.m. note for details. I went back to see the patient. The patient is fully awake and alert. Able to answer questions. Able to follow commands. Symmetrical motor and tone. Patient unfortunately went into A-fib with RVR. Systolic blood pressure is 130. Heart rate is 145. I ordered Cardizem 5 mg IV 1 dose followed by Cardizem drip titration between 5 to 50 mg an hour Resumed home Eliquis. I discussed her case with her family at the bedside. I provided them information about her disease,prognosis, expectation and trajectory. Answered all the questions. I spent about 1 hour and a half in the critical care evaluation, assessment and treatment of this patient thus far. Documented By: Jhony Davis MD 07/23/241455 Signed By: 07/23/24 1457 [facility]04-27-2025 Consult note Author Samra Andrade [facility] Note Date/Time July 23, 2024 12: 21pm [facility] [address] [place] [address] Pulmonology Consult Note Signed Patient: Janelle Burt MR#: [id number] : 1940 Acct:[id number] Age/Sex: 83 / F Adm Date: 5 Loc: Room: [address] [place] [address] Type: ADM IN Attending Dr: Jhony Davis MD Copies to: MD Antonino Nolen MD Rafik Massouh, MD~ HPI Date/Time of Consultation: Date of Service: 07/23/2024 Time of Service: 12:14 Consulting Provider: Samra Andrade Requesting Provider: Jhony Davis Reason for Consult: Uncontrolled hypertension and seizure History of Present Illness History of present illness: Ms. 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 Apparently per her daughter the patient was not feeling well and was watching TV in the evening and noticed that she was staring in the space. Apparently when she went to the bathroom shehad heard her falling and was noted to be altered and hence EMS was called. In ED the patient developed a generalized seizure episode and received 1 mg of Ativan and Keppra. She was also found to have elevated blood pressure and was started initially on nicardipine drip, admitted to ICU and a critical care consultation was requested. Currently the patient is somewhat sleepy but easily arousable and follows simplecommands. Her blood pressure has improved and she has been weaned off nicardipine drip. Per daughter she normally runs high blood pressure in the 160s to 170s at baseline despite taking her medications at home Review of Systems Review of Systems Review of systems: 11 point review of system was somewhat difficult to obtain as the patient was sleepy but negative stated above mentioned history of present illness [facility] Medical History Ischemic cerebral vascular accident (CVA) due to stenosis of large extracranial artery Fracture of left foot Retina disorder, left History of left heart catheterization (LHC) Hypoparathyroidism Hypertension Hyperlipidemia Cataract Secondary hyperparathyroidism Hypothyroidism, unspecified Hypertensive chronic kidney disease with stage 1 through stage 4 chronic kidney disease, or unspecified chronic kidney disease History of falling Essential (primary) hypertension Elevated blood pressure reading Dyslipidemia CKD (chronic kidney disease) stage 4, GFR 15-29 ml/min Chronic kidney disease, stage 3 unspecified Cervical cancer CAD in [place] artery Bronchitis, not specified as acute or chronic 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 Cataract Hypertension Surgical History History of partial hysterectomy History of appendectomy S/P partial hysterectomy Family History Father Stroke Mother Stroke Sister Breast cancer Myocardial infarction Daughter Cancer Legacy FamHx Relation: Daughter(s); Legacy FamHx Problem: Diagnosed with Cancer Father History of stroke Legacy FamHx Problem: Diagnosed with Stroke Mother History of stroke Legacy FamHx Problem: Diagnosed with Stroke Sister Cancer Legacy FamHx Problem: Diagnosed with Cancer Heart disease Social History Smoking Status: Unknown if ever smoked Substance Use Type: None Meds Medications and Allergies Allergies amlodipine (From Norvasc) Allergy (Unknown, Verified 07/22/24 21:12) Unknown Reaction ciprofloxacin Allergy (Unknown, Verified 07/22/24 21:12) Comment:joint pain clonidine (From Catapres) Allergy (Unknown, Verified 07/22/24 21:12) Unknown Reaction hydralazine Allergy (Unknown, Verified 07/22/24 21:12) Unknown Reaction lisinopril Allergy (Unknown, Verified 07/22/24 21:12) Unknown Reaction methylprednisolone (From Medrol) Allergy (Unknown, Verified 07/22/24 21:12) Unknown Reaction Pbaxdns-WCW-NzW Reductase Inhibitor (Ptytbab-Lvo-Css Reductase Inhibitor) Allergy (Unknown, Verified 07/22/24 21:12) Unknown Reaction Sulfa (Sulfonamide Antibiotics) Allergy (Unknown, Verified 07/22/24 21:12) Unknown Reaction Home Medications aspirin 81 mg tablet,delayed release (Neli Low Dose Aspirin) 81 mg PO DAILY 03/12/17 [History Confirmed 07/22/24] fenofibrate 54 mg tablet 54 mg PO DAILY 03/12/17 [History Confirmed 07/22/24] nitroglycerin 0.4 mg sublingual tablet 0.4 mg sublingual Q5M PRN chest pain 30 days #25 tabs 01/28/23 [Rx Confirmed 07/22/24] metoprolol tartrate 25 mg tablet 25 mg PO BID #60 tabs 01/29/23 [Rx Confirmed 07/22/24] atorvastatin 40 mg tablet 40 mg PO DAILY 03/14/24 [History Confirmed 07/22/24] levothyroxine 100 mcg tablet 100 mcg PO DAILY 03/28/24 [History Confirmed 07/22/24] apixaban 5 mg tablet (Eliquis) 5 mg PO BID #54 tabs 05/22/24 [Rx Confirmed 07/22/24] valsartan 160 mg tablet 160 mg PO DAILY 05/22/24 [History Confirmed 07/22/24] Exam Physical Exam Vital Signs: Temp Pulse Resp BP Pulse Ox O2 Del Method O2 Flow Rate 100.1 F H 67 17 127/60 100 Room Air 2 07/23/24 08:00 07/23/24 10:00 07/23/24 10:00 07/23/24 10:00 07/23/24 10:00 07/23/24 11:00 07/23/24 08:00 Narrative: General: Sleepy but arouses to stimuli, appears in no acute respiratory distress HEENT: Head normocephalic atraumatic. Neck: Supple. Pulmonary: Good breath sounds to both lung yarbrough without wheezing. Cardiovascular: Regular rate and rhythm. No murmurs Abdomen: Soft, nontender and nondistended. Extremities: No edema. Skin: No lesions SCRAP BALER: Sleepy with apparent left facial droop. Arouses to stimuli and follows simple commands. Results - Pulmonology Intake and Output I&O - Last 24 Hours: Intake & Output 07/22/24 07/23/24 07/23/24 23:59 07:59 15:59 Intake Total 368.45 / 368.45 0 / 0 Output Total 100 / 100 0 / 0 Balance 268.45 / 268.45 0 / 0 Weight 61.5 kg 58.4 kg Labs 07/23/24 04:29 07/23/24 06:07 Microbiology Micro: 07/23/24 04:36 Blood Culture - Pending Blood - Right Hand 07/23/24 04:30 Blood Culture - Pending Blood - Left Hand 07/22/24 21:55 Urine Culture - Pending Urine - Clean-Voided Midstream Assessment/Plan (1) Altered mental status: Plan: Appeared to be likely due to postictal state and now received Ativan in ER and continues to be sleepy. Apparently seen by PT and was able to ambulate a few steps without issues. Somefacial droop was noted that appeared to be new based on her daughters history. CT of the head was unremarkable. Neurology was on board and requested MRI of the brain. (2) Seizure: Plan: Received Keppra with no further seizures. Will continue same. Defer further management to urology. (3) Accelerated hypertension: Plan: Improved and now off nicardipine. We will resume her home blood pressure medications. Plan Plan of care were discussed with the patient's daughter at bedside and nursing staff. No active critical care issues at this point. Will defer management to neurology and primary team and will be available for acute issues if needed. Documented By: Samra Andrade MD 07/23/24 1214 Signed By: <Electronically signed by Samra Andrade MD> 07/23/24 1221 [facility] Work Phone: [phone]) 785-196804-27-2025 [place] [address] Neurology Consult Note Signed Patient: Janelle Burt MR#: [id number] : 1940 Acct:[id number] Age/Sex: 83 / F Adm Date: 5 Loc: Room: [address] [place] [address] Type: ADM IN Attending Dr: Jhony Davis MD Copies to: Christopher M DO Antonino Bridges MD Rafik Massouh, MD~ HPI Consult Date: 07/23/24 Ingot Caster: Guido Bridges DO Consult Narrative HPI: Was asked to see this 83-year-old patient in new patient neurology consultation at the request of the hospitalist service for new onset seizure disorder. 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 The patient was brought to the ER by squad after the patient's daughter stated she was not feeling well and started to feel sick around 8 PM yesterday and brought her to the bathroom and then the patient's daughter heard the patient fall. The patient was noted to be wedged in the bathroom in a narrow space and was noticed to have a contusion on her left earlobe. When the daughter tried toawaken her mom she noted she was very tired and she called the squad at that time. Last known well was around 8 PM. Apparently in the emergency department the patient was noted to be conversant and oriented to person and place but not the event that occurred. Later during the emergency department and visit the patient developed a new onset generalized seizure with twitching of her whole body and stiffnessand she was treated with Ativan and Keppra. I was contacted in regards to this last night and did recommend the treatment with Keppra in theICU admission. There was also a question if the patient had been staring into space while watching TV yesterday afternoon. Patient was resting comfortably when I entered the room. Her family was in the room with her. She was able to be easily aroused. She told me her name and date of . She was resting comfortably and wanted to go back to sleep but certainly responded well when we woke her up. Review of Systems Review of Systems Unobtainable due to mental status [facility] Medical History Ischemic cerebral vascular accident (CVA) due to stenosis of large extracranial artery Fracture of left foot Retina disorder, left History of left heart catheterization (LHC) Hypoparathyroidism Hypertension Hyperlipidemia Cataract Secondary hyperparathyroidism Hypothyroidism, unspecified Hypertensive chronic kidney disease with stage 1 through stage 4 chronic kidney disease, or unspecified chronic kidney disease History of falling Essential (primary) hypertension Elevated blood pressure reading Dyslipidemia CKD (chronic kidney disease) stage 4, GFR 15-29 ml/min Chronic kidney disease, stage 3 unspecified Cervical cancer CAD in [place] artery Bronchitis, not specified as acute or chronic 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 Cataract Hypertension Surgical History History of partial hysterectomy History of appendectomy S/P partial hysterectomy Family History Father Stroke Mother Stroke Sister Breast cancer Myocardial infarction Daughter Cancer Legacy FamHx Relation: Daughter(s); Legacy FamHx Problem: Diagnosed with Cancer Father History of stroke Legacy FamHx Problem: Diagnosed with Stroke Mother History of stroke Legacy FamHx Problem: Diagnosed with Stroke Sister Cancer Legacy FamHx Problem: Diagnosed with Cancer Heart disease Social History Smoking Status: Unknown if ever smoked Substance Use Type: None Meds Medications and Allergies Allergies amlodipine (From Norvasc) Allergy (Unknown, Verified 07/22/24 21:12) Unknown Reaction ciprofloxacin Allergy (Unknown, Verified 07/22/24 21:12) Comment:joint pain clonidine (From Catapres) Allergy (Unknown, Verified 07/22/24 21:12) Unknown Reaction hydralazine Allergy (Unknown, Verified 07/22/24 21:12) Unknown Reaction lisinopril Allergy (Unknown, Verified 07/22/24 21:12) Unknown Reaction methylprednisolone (From Medrol) Allergy (Unknown, Verified 07/22/24 21:12) Unknown Reaction Zzqpduv-RYB-QeQ Reductase Inhibitor (Kpiuvwt-Ajm-Dmz Reductase Inhibitor) Allergy (Unknown, Verified 07/22/24 21:12) Unknown Reaction Sulfa (Sulfonamide Antibiotics) Allergy (Unknown, Verified 07/22/24 21:12) Unknown Reaction Home Medications aspirin 81 mg tablet,delayed release (Neli Low Dose Aspirin) 81 mg PO DAILY 03/12/17 [History Confirmed 07/22/24] fenofibrate 54 mg tablet 54 mg PO DAILY 03/12/17 [History Confirmed 07/22/24] nitroglycerin 0.4 mg sublingual tablet 0.4 mg sublingual Q5M PRN chest pain 30 days #25 tabs 01/28/23 [Rx Confirmed 07/22/24] metoprolol tartrate 25 mg tablet 25 mg PO BID #60 tabs 01/29/23 [Rx Confirmed 07/22/24] atorvastatin 40 mg tablet 40 mg PO DAILY 03/14/24 [History Confirmed 07/22/24] levothyroxine 100 mcg tablet 100 mcg PO DAILY 03/28/24 [History Confirmed 07/22/24] apixaban 5 mg tablet (Eliquis) 5 mg PO BID #54 tabs 05/22/24 [Rx Confirmed 07/22/24] valsartan 160 mg tablet 160 mg PO DAILY 05/22/24 [History Confirmed 07/22/24] Exam Physical Exam Vital Signs: Temp Pulse Resp BP Pulse Ox O2 Del Method O2 Flow Rate 100.1 F H 67 17 127/60 100 Room Air 2 07/23/24 08:00 07/23/24 10:00 07/23/24 10:00 07/23/24 10:00 07/23/24 10:00 07/23/24 11:00 07/23/24 08:00 Narrative: Narrative: GENERAL EXAM: Patient is alert and oriented x2. Patient was sleeping but easily arousable to verbal stimulus NEURO EXAM: Cranial nerves appear intact MOTOR EXAM: Strength is at least 3/5 throughout 4 extremity no pronator drift was appreciated Muscle tone and bulk are normal SENSORY EXAM: Denies paresthesias. Response to painful stimulus x 4 extremities CEREBELLAR EXAM: Coordination and gait were not able to be reliably tested Results - Neuro Laboratory Findings 07/23/24 04:29 07/23/24 06:07 Diagnostic Findings Imaging/Impressions: ITS Impressions Head CT 07/22/24 21:08 IMPRESSION: Chronic microvascular disease and Central involutional changes without evidence acute bleed or midline shift. Impression dictated by: Charli Ferrera M.D. 07/23/2024 7:56 AM Dictation Location: [facility] Head CTA 07/22/24 21:12 IMPRESSION: Negative for large vessel occlusion or hemodynamically significant stenosis involving the cervical vessels. Moderate burden of disease identified intracranially notably involving right distal M1 segment. Left A2 A3 segment. Moderate severe narrowing left P1 P2 segment RIVET MAKER. Moderate narrowing right P1 segment RIVET MAKER. Up to 50% narrowing involving both proximal ICAs Impression dictated by: Charli Ferrera M.D. 07/23/2024 8:46 AM Dictation Location: [facility] Assessment/Plan (1) Seizure: (2) Altered mental status: Qualifiers: Altered mental status type: delirium Qualified Code(s): R41.0 - Disorientation, unspecified (3) History of stroke: Plan It is my impression that the patient has altered mental status which I think is secondary to new onset of seizure. The patient was noted to have some altered mental status with a fall at home and I wonder if this was a first seizure event. The patient then had a generalized tonic-clonic seizure in the emergencydepartment and was treated with Ativan and Keppra. 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 The patient was able to be easily aroused when I entered the room her family also noted this and the patient was able to identify her family members by name I suspect her difficulty in arousal earlier was postictal or secondary to medication of Ativan Workup: CT of the brain without contrast: No acute changes CT angiogram of the head and neck: No acute occlusion. Evidence of moderate intracranial vascular narrowing. MRI of the brain with and without contrast: Pending on a stat basis Echocardiogram: Pending Laboratory studies: Hyponatremia with a sodium of 130 this morning. Elevated white count with neutrophilic predominance UA is positive with 20-49 white blood cells and evidence of 2+ leukocyte esterase. Chest x-ray: Pending read Blood cultures: Pending Urine cultures: Pending Plan: Treatment of infection per the primary service Treatment of sodium abnormalities per the primary service Suggest normalization of blood pressure now I suggest continuation of Keppra Further recommendations pending clinical course and imaging and EEG results Please call with any change in condition, questions or concerns Documented By: Guido Bridges DO [id number] Signed By: 07/23/24 1342 [facility]04-27-2025 Progress note Author Jhony Davis [facility] Note Date/Time July 23, 2024 10: 42am [facility] [address] [place] [address] Hospitalist Progress Note Signed Patient: Janelle Burt MR#: [id number] : 1940 Acct:[id number] Age/Sex: 83 / F Adm Date: 5 Loc: Room: 8X2176-3 Type: ADM IN Attending Dr: Jhony Davis MD Copies to: ~ Date of Service: 07/23/2024 Subjective Subjective Narrative: This is a 83 y.o female with past medical hx of 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 Hx obtained from ED staff, pt's daughter atbedside, and pt's chart in the EMR. As per her daughter, pt was not feeling welltoday, around 8 pm she was in bed watching TV when she was noticed to be starring in the space, and then started feeling sick, wanted to go to the bathroom, when her daughter heard her falling. Her daughter is sure she fell andhit her head given that she was wedged in the bathroom with narrow limited spacefor her to move within. Also she noticed she had a contusion to her left earlobe. After that she rushed to the bathroom and stated that her mom was awakebut very tired and she had to help her sit on the bathroom, in the mean time shecalled the squad. As per EMS, pt was slow to respond, LKW was around 8 pm. Apparently in the ED pt was conversant, oriented to person and place and not to event, but was somewhat altered, and had some left sided weakness. CT Later on, pt developed generalized seizure, witnessed by her daughter, describedas twitchiness of her whole body with stiffness, and she almost punched her facebecause of the movements. Treated in the ED for generalized tonic-clonic seizure, was given 1 mg of ativan and loaded with Keppra, after ED contacted neurology. Pt to be admitted to the ICU for further workup and management. At baseline, pt suffered a CVA back in January 2024, since then she has been suffering with her vision, and was not able to read even though she used to loveto do so. Otherwise, she is sharp and oriented, ambulates. 07/23: De Jesus care. The patient is lying in ICU unresponsive. I tried to call her namebut she did not open her eyes or follow command. Exam Physical Exam Vital Signs: Temp Pulse Resp BP Pulse Ox O2 Del Method O2 Flow Rate 100.1 F H 67 17 127/60 100 Room Air 2 07/23/24 08:00 07/23/24 10:00 07/23/24 10:00 07/23/24 10:00 07/23/24 10:00 07/23/24 10:00 07/23/24 08:00 Narrative: Patient is lying in ICU unresponsive. I called her name and because some moderate paper simulation. Patient did not wake up. No seizure or convulsion noted. Eyes slightly deviated to the right. No nystagmus. Chest is clear however poor respiratory drive. Heart is regular. Abdomen soft. Could not assess for tenderness Objective Lab Results 07/23/24 04:29 07/23/24 06:07 Meds Allergies and Active Meds Allergies amlodipine (From Norvasc) Allergy (Unknown, Verified 07/22/24 21:12) Unknown Reaction ciprofloxacin Allergy (Unknown, Verified 07/22/24 21:12) Comment:joint pain clonidine (From Catapres) Allergy (Unknown, Verified 07/22/24 21:12) Unknown Reaction hydralazine Allergy (Unknown, Verified 07/22/24 21:12) Unknown Reaction lisinopril Allergy (Unknown, Verified 07/22/24 21:12) Unknown Reaction methylprednisolone (From Medrol) Allergy (Unknown, Verified 07/22/24 21:12) Unknown Reaction Fsoyssx-QRV-KhG Reductase Inhibitor (Iybsqxw-Krn-Wew Reductase Inhibitor) Allergy (Unknown, Verified 07/22/24 21:12) Unknown Reaction Sulfa (Sulfonamide Antibiotics) Allergy (Unknown, Verified 07/22/24 21:12) Unknown Reaction Active Meds: Active Medications Generic Name Dose Route Start Last Admin Trade Name Freq PRN Reason Stop Dose Admin Acetaminophen 650 mg 07/23/24 04:11 07/23/24 04:25 Acetaminophen 650 Mg Supp.Rect AK 07/23/25 04:10 650 mg Q6HR PRN Administration Fever or Pain Aspirin 300 mg 07/23/24 10:45 Aspirin 300 Mg Supp.Rect AK 07/23/25 10:44 DAILY CLIFTON Enoxaparin Sodium 50 mg 07/23/24 22:00 Enoxaparin 30 Mg/0.3 Ml Syringe SUBCUT 07/23/25 21:59 Q12HR.10A.10P [place] Nicardipine/Sodium Chloride 20 mg in 200 mls @ 50 mls/hr 07/23/24 00:15 07/23/24 09:41 Cardene 20 Mg/200 Ml - Nacl IV 07/23/25 00:14 Not Given .Q4H [place] Protocol 5 MG/HR Levofloxacin 750 mg in 150 mls @ 100 mls/hr 07/23/24 11:00 Levaquin IV Q48H [place] Levetiracetam 1,000 mg in 100 mls @ 400 mls/hr 07/23/24 09:00 07/23/24 09:38 Keppra IV 07/23/25 08:59 400 mls/hr BID [place] Administration Lactated Ringer's 1,000 mls @ 75 mls/hr 07/23/24 10:30 Lactated Ringers IV 07/23/25 10:29 .[id number] [place] Ceftriaxone Sodium 1 gm in 50 mls @ 100 mls/hr 07/23/24 10:45 Rocephin IV Q24H [place] Levothyroxine Sodium 70 mcg 07/23/24 06:30 07/23/24 07:53 Levothyroxine 100 Mcg/5 Ml Vial IV-PUSH 07/23/25 06:29 70 mcg DAILY.0630 CL[place]ON Administration Lorazepam 0.5 mg 07/23/24 00:11 Lorazepam 2 Mg/Ml Vial IV-PUSH 01/19/25 00:10 Q2H PRN Agitation Sodium Chloride 0 ml 07/22/24 21:10 07/23/24 00:14 Sodium Chloride 0.9 % 10 Ml Syringe IV-PUSH 07/22/25 21:09 10 ml PRN PRN Administration Flush Sodium Chloride 10 ml 07/22/24 22:03 Sodium Chloride 0.9 % 10 Ml Vial.Pf INJECTION 07/22/25 22:02 PRN PRN 1:1 ATIVAN DILUTION Sodium Chloride 10 ml 07/22/24 23:45 07/23/24 09:39 Sodium Chloride 0.9 % 10 Ml Syringe IV-PUSH 07/22/25 23:44 10 ml Q8H [place] Administration Sodium Chloride 10 ml 07/23/24 00:11 Sodium Chloride 0.9 % 10 Ml Vial.Pf INJECTION 07/23/25 00:10 Q2H PRN Ativan dilution A&P - Hospitalist Assessment/Plan (1) Seizure: Plan Altered mental status, in the setting of New Onset Seizure with concern for status epilepticus UTI with hx of pseudomonas on previous Urine cultures back in January 2024 Hypertensive Emergency Currently patient is unarousable. Could be caused by Ativan given intravenously. Patient has a history of stroke. She is on Eliquis. -Admit pt to ICU with neuro checks q1 hour, and place on telemetry -Neurology service, Dr. Bridges, is already aware of the pt. Will place an orderfor EEG in am. Further recs in regards to continuous EEG or further medications as per Neurology -Lorazepam 2 mg q2 hours PRN for seizure activities -Obtain Lactic acid and Prolactin STAT in the ED -Obtain MR brain without contrast. MRI was ordered routine, I switched to stat -Patient was on Eliquis at home. Start patient on Lovenox 1 mg/kg twice a day as she is unable to take Eliquis orally. -Aspirin 300 mg rectally daily. - Nicardipine drip started by ED -Pt received total of 1.5 mg Lorazepam IV in the ED. I Spoke to the ED, in the mean time, pt is able to secure her airways. If pt were to need more sedation, plan is to intubate her while in the ED. - Start patient on cefepime for UTI and history of Pseudomonas -Echocardiogram Defer for any diagnostic and therapeutic intervention related to her neurological status to neurology team. While patient in ICU, her medical management will be handled by registered safety engineer in collaboration with other needed specialist. Patient's status is dynamic and evolutionary therefore the aforementioned assessment and plan may or may not be completely inclusive. The patient will likely require to have additional workup, evaluation and intervention that will be determined based on the clinical progression we will follow-up this result. I will be off service starting this evening. Patient will be handed by one of my colleagues. Documented By: Jhony Davis MD 07/23/24 1037 Signed By: <Electronically signed by Jhony Davis MD> 07/23/24 1046 [facility] Work Phone: [phone] 541-847104-27-2025 [place] [address] Pulmonology Consult Note Signed Patient: Janelle Burt MR#: [id number] : 1940 Acct:[id number] Age/Sex: 83 / F Adm Date: 5 Loc: Room: [address] [place] [address] Type: ADM IN Attending Dr: Jhony Davis MD Copies to: MD Antonino Nolen MD Rafik Massouh, MD~ HPI Date/Time of Consultation: Date of Service: 07/23/2024 Time of Service: 12:14 Consulting Provider: Samra Andrade Requesting Provider: Jhony Davis Reason for Consult: Uncontrolled hypertension and seizure History of Present Illness History of present illness: Ms. 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 Apparently per her daughter the patient was not feeling well and was watching TV in the evening and noticed that she was staring in the space. Apparently when she went to the bathroom shehad heard her falling and was noted to be altered and hence EMS was called. In ED the patient developed a generalized seizure episode and received 1 mg of Ativan and Keppra. She was also found to have elevated blood pressure and was started initially on nicardipine drip, admitted to ICU and a critical care consultation was requested. Currently the patient is somewhat sleepy but easily arousable and follows simplecommands. Her bloodpressure has improved and she has been weaned off nicardipine drip. Per daughter she normally runs high blood pressure in the 160s to 170s at baseline despite taking her medications at home Review of Systems Review of Systems Review of systems: 11 point review of system was somewhat difficult to obtain as the patient was sleepy but negative stated above mentioned history of present illness [facility] Medical History Ischemic cerebral vascular accident (CVA) due to stenosis of large extracranial artery Fracture of left foot Retina disorder, left History of left heart catheterization (LHC) Hypoparathyroidism Hypertension Hyperlipidemia Cataract Secondary hyperparathyroidism Hypothyroidism, unspecified Hypertensive chronic kidney disease with stage 1 through stage 4 chronic kidney disease, or unspecified chronic kidney disease History of falling Essential (primary) hypertension Elevated blood pressure reading Dyslipidemia CKD (chronic kidney disease) stage 4, GFR 15-29 ml/min Chronic kidney disease, stage 3 unspecified Cervical cancer CAD in [place] artery Bronchitis, not specified as acute or chronic 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 Cataract Hypertension Surgical History History of partial hysterectomy History of appendectomy S/P partial hysterectomy Family History Father Stroke Mother Stroke Sister Breast cancer Myocardial infarction Daughter Cancer Legacy FamHx Relation: Daughter(s); Legacy FamHx Problem: Diagnosed with Cancer Father History of stroke Legacy FamHx Problem: Diagnosed with Stroke Mother History of stroke Legacy FamHx Problem: Diagnosed with Stroke Sister Cancer Legacy FamHx Problem: Diagnosed with Cancer Heart disease Social History Smoking Status: Unknown if ever smoked Substance Use Type: None Meds Medications and Allergies Allergies amlodipine (From Norvasc) Allergy (Unknown, Verified 07/22/24 21:12) Unknown Reaction ciprofloxacin Allergy (Unknown, Verified 07/22/24 21:12) Comment:joint pain clonidine (From Catapres) Allergy (Unknown, Verified 07/22/24 21:12) Unknown Reaction hydralazine Allergy (Unknown, Verified 07/22/24 21:12) Unknown Reaction lisinopril Allergy (Unknown, Verified 07/22/24 21:12) Unknown Reaction methylprednisolone (From Medrol) Allergy (Unknown, Verified 07/22/24 21:12) Unknown Reaction Yechjgh-GUA-OhD Reductase Inhibitor (Syteeib-Bgu-Eer Reductase Inhibitor) Allergy (Unknown, Verified 07/22/24 21:12) Unknown Reaction Sulfa (Sulfonamide Antibiotics) Allergy (Unknown, Verified 07/22/24 21:12) Unknown Reaction Home Medications aspirin 81 mg tablet,delayed release (Neli Low Dose Aspirin) 81 mg PO DAILY 03/12/17 [History Confirmed 07/22/24] fenofibrate 54 mg tablet 54 mg PO DAILY 03/12/17 [History Confirmed 07/22/24] nitroglycerin 0.4 mg sublingual tablet 0.4 mg sublingual Q5M PRN chest pain 30 days #25 tabs 01/28/23 [Rx Confirmed 07/22/24] metoprolol tartrate 25 mg tablet 25 mg PO BID #60 tabs 01/29/23 [Rx Confirmed 07/22/24] atorvastatin 40 mg tablet 40 mg PO DAILY 03/14/24 [History Confirmed 07/22/24] levothyroxine 100 mcg tablet 100 mcg PO DAILY 03/28/24 [History Confirmed 07/22/24] apixaban 5 mg tablet (Eliquis) 5 mg PO BID #54 tabs 05/22/24 [Rx Confirmed 07/22/24] valsartan 160 mg tablet 160 mg PO DAILY 05/22/24 [History Confirmed 07/22/24] Exam Physical Exam Vital Signs: Temp Pulse Resp BP Pulse Ox O2 Del Method O2 Flow Rate 100.1 F H 67 17 127/60 100 Room Air 2 07/23/24 08:00 07/23/24 10:00 07/23/24 10:00 07/23/24 10:00 07/23/24 10:00 07/23/24 11:00 07/23/24 08:00 Narrative: General: Sleepy but arouses to stimuli, appears in no acute respiratory distress HEENT: Head normocephalic atraumatic. Neck: Supple. Pulmonary: Good breath sounds to both lung yarbrough without wheezing. Cardiovascular: Regular rate and rhythm. No murmurs Abdomen: Soft, nontender and nondistended. Extremities: No edema. Skin: No lesions SCRAP BALER: Sleepy with apparent left facial droop. Arouses to stimuli and follows simple commands. Results - Pulmonology Intake and Output I&O - Last 24 Hours: Intake & Output 07/22/24 07/23/24 07/23/24 23:59 07:59 15:59 Intake Total 368.45 / 368.45 0 / 0 Output Total 100 / 100 0 / 0 Balance 268.45 / 268.45 0 / 0 Weight 61.5 kg 58.4 kg Labs 07/23/24 04:29 07/23/24 06:07 Microbiology Micro: 07/23/24 04:36 Blood Culture - Pending Blood - Right Hand 07/23/24 04:30 Blood Culture - Pending Blood - Left Hand 07/22/24 21:55 Urine Culture - Pending Urine - Clean-Voided Midstream Assessment/Plan (1) Altered mental status: Plan: Appeared to be likely due to postictal state and now received Ativan in ER and continues to be sleepy. Apparently seen by PT and was able to ambulate a few steps without issues. Somefacial droop was noted that appeared to be new based on her daughters history. CT of the head was unremarkable. Neurology was on board and requested MRI of the brain. (2) Seizure: Plan: Received Keppra with no further seizures. Will continue same. Defer further management to urology. (3) Accelerated hypertension: Plan: Improved and now off nicardipine. We will resume her home blood pressure medications. Plan Plan of care were discussed with the patient's daughter at bedside and nursing staff. No active critical care issues at this point. Will defer management to neurology and primary team and will be available for acute issues if needed. 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 Hx obtained from ED staff, pt's daughter atbedside, and pt's chart in the EMR. As per her daughter, pt was not feeling welltoday, around 8 pm she was in bed watching TV when she was noticed to be starring in the space, and then started feeling sick, wanted to go to the bathroom, when her daughter heard her falling. Her daughter is sure she fell andhit her head given that she was wedged in the bathroom with narrow limited spacefor her to move within. Also she noticed she had a contusion to her left earlobe. After that she rushed to the bathroom and stated that her mom was awakebut very tired and shehad to help her sit on the bathroom, in the mean time shecalled the squad. As per EMS, pt was slow to respond, LKW was around 8 pm. Apparently in the ED pt was conversant, oriented to person and place and not to event, but was somewhat altered, and had some left sided weakness. CT Later on, pt developed generalized seizure, witnessed by her daughter, describedas twitchiness of her whole body with stiffness, and she almost punched her facebecause of the movements. Treated in the ED for generalized tonic-clonic seizure, was given 1 mg of ativan and loaded with Keppra, after EDcontacted neurology. Pt to be admitted to the ICU for further workup and management. At baseline, pt suffered a CVA back in January 2024, since then she has been suffering with her vision, and was not able to read even though she used to loveto do so. Otherwise, she is sharp and oriented, ambulates. 07/23: De Jesus care. The patient is lying in ICU unresponsive. I tried to call her namebut she did not open her eyes or follow command. Exam Physical Exam Vital Signs: Temp Pulse Resp BP Pulse Ox O2 Del Method O2 Flow Rate 100.1 F H 67 17 127/60 100 Room Air 2 07/23/24 08:00 07/23/24 10:00 07/23/24 10:00 07/23/24 10:00 07/23/24 10:00 07/23/24 10:00 07/23/24 08:00 Narrative: Patient is lying in ICU unresponsive. I called her name and because some moderate paper simulation.Patient did not wake up. No seizure or convulsion noted. Eyes slightly deviated to the right. No nystagmus. Chest is clear however poor respiratory drive. Heart is regular. Abdomen soft. Could not assess for tenderness Objective Lab Results 07/23/24 04:29 07/23/24 06:07 Meds Allergies and Active Meds Allergies amlodipine (From Norvasc) Allergy (Unknown, Verified 07/22/24 21:12) Unknown Reaction ciprofloxacin Allergy (Unknown, Verified 07/22/24 21:12) Comment:joint pain clonidine (From Catapres) Allergy (Unknown, Verified 07/22/24 21:12) Unknown Reaction hydralazine Allergy (Unknown, Verified 07/22/24 21:12) Unknown Reaction lisinopril Allergy (Unknown, Verified 07/22/24 21:12) Unknown Reaction methylprednisolone (From Medrol) Allergy (Unknown, Verified 07/22/24 21:12) Unknown Reaction Fcnjntj-ERZ-WjS Reductase Inhibitor (Wdddgps-Wuj-Bvw Reductase Inhibitor) Allergy (Unknown, Verified 07/22/24 21:12) Unknown Reaction Sulfa (Sulfonamide Antibiotics) Allergy (Unknown, Verified 07/22/24 21:12) Unknown Reaction Active Meds: Active Medications Generic Name Dose Route Start Last Admin Trade Name Freq PRN Reason Stop Dose Admin Acetaminophen 650 mg 07/23/24 04:11 07/23/24 04:25 Acetaminophen 650 Mg Supp.Rect AK 07/23/25 04:10 650 mg Q6HR PRN Administration Fever or Pain Aspirin 300 mg 07/23/24 10:45 Aspirin 300 Mg Supp.Rect AK 07/23/25 10:44 DAILY [place] Enoxaparin Sodium 50 mg 07/23/24 22:00 Enoxaparin 30 Mg/0.3 Ml Syringe SUBCUT 07/23/25 21:59 Q12HR.10A.10P [place] Nicardipine/Sodium Chloride 20 mg in 200 mls @ 50 mls/hr 07/23/24 00:15 07/23/24 09:41 Cardene 20 Mg/200 Ml - Nacl IV 07/23/25 00:14 Not Given .Q4H [place] Protocol 5 MG/HR Levofloxacin 750 mg in 150 mls @ 100 mls/hr 07/23/24 11:00 Levaquin IV Q48H [place] Levetiracetam 1,000 mg in 100 mls @ 400 mls/hr 07/23/24 09:00 07/23/24 09:38 Keppra IV 07/23/25 08:59 400 mls/hr BID [place] Administration Lactated Ringer's 1,000 mls @ 75 mls/hr 07/23/24 10:30 Lactated Ringers IV 07/23/25 10:29 .[id number] [place] Ceftriaxone Sodium 1 gm in 50 mls @ 100 mls/hr 07/23/24 10:45 Rocephin IV Q24H [place] Levothyroxine Sodium 70 mcg 07/23/24 06:30 07/23/24 07:53 Levothyroxine 100 Mcg/5 Ml Vial IV-PUSH 07/23/25 06:29 70 mcg DAILY.0630 [place] Administration Lorazepam 0.5 mg 07/23/24 00:11 Lorazepam 2 Mg/Ml Vial IV-PUSH 01/19/25 00:10 Q2H PRN Agitation Sodium Chloride 0 ml 07/22/24 21:10 07/23/24 00:14 Sodium Chloride 0.9 % 10 Ml Syringe IV-PUSH 07/22/25 21:09 10 ml PRN PRN Administration Flush Sodium Chloride 10 ml 07/22/24 22:03 Sodium Chloride 0.9 % 10 Ml Vial.Pf INJECTION 07/22/25 22:02 PRN PRN 1:1 ATIVAN DILUTION Sodium Chloride 10 ml 07/22/24 23:45 07/23/24 09:39 Sodium Chloride 0.9 % 10 Ml Syringe IV-PUSH 07/22/25 23:44 10 ml Q8H [place] Administration Sodium Chloride 10 ml 07/23/24 00:11 Sodium Chloride 0.9 % 10 Ml Vial.Pf INJECTION 07/23/25 00:10 Q2H PRN Ativan dilution A&P - Hospitalist Assessment/Plan (1) Seizure: Plan Altered mental status, in the setting of New Onset Seizure with concern for status epilepticus UTI with hx of pseudomonas on previous Urine cultures back in January 2024 Hypertensive Emergency Currently patient is unarousable. Could be caused by Ativan given intravenously. Patient has a history of stroke. She is on Eliquis. -Admit pt to ICU with neuro checks q1 hour, and place on telemetry -Neurology service, Dr. Bridges, is already aware of the pt. Will place an orderfor EEG in am. Further recs in regards to continuous EEG or further medications as per Neurology -Lorazepam 2 mg q2 hours PRN for seizure activities -Obtain Lactic acid and Prolactin STAT in the ED -Obtain MR brain without contrast. MRI was ordered routine, I switched to stat -Patient was on Eliquis at home. Start patient on Lovenox 1 mg/kg twice a day as she is unable to take Eliquis orally. -Aspirin 300 mg rectally daily. - Nicardipine drip started by ED -Pt received total of 1.5 mg Lorazepam IV in the ED. I Spoke to the ED, in the mean time, pt is able to secure her airways. If pt were to need more sedation, plan is to intubate her while in the ED. - Start patient on cefepime for UTI and history of Pseudomonas -Echocardiogram Defer for any diagnostic and therapeutic intervention related to her neurological status to neurology team. While patient in ICU, her medical management will be handled by registered safety engineer in collaboration with other needed specialist. Patient's status is dynamic and evolutionary therefore the aforementioned assessment and plan may or may not be completely inclusive. The patient will likely require to have additional workup, evaluation and intervention that will be determined based on the clinical progression we will follow-up this result. I will be off service starting this evening. Patient will be handed by one of my colleagues. Documented By: Jhony Davis MD 07/23/24 1037 Signed By: 07/23/24 1042 [facility]04-27-2025 Radiology Diagnostic study note [facility] [place] [address] CT Scan Report Signed Patient: Janelle Burt MR#: [id number] : 1940 Acct:[id number] Age/Sex: 83 / F ADM Date: 5 Loc: Room: [address] [place] [address] Type: ADM IN Attending Dr: Jhony Davis MD Copies to: MD Asad Doan Jr, MD~ Ordering Provider: Asad Mcnally Jr, MD Date of Service: 07/22/24 CT/CT angio head: fall, mild L weakness, anticoag ([id number]) CT/CT angio neck: fall, mild L weakness, anticoag CT angio head, CT angio neck 07/22/2024 9:13 PM SIGNS AND SYMPTOMS: ^fall, mild L weakness, anticoag TECHNIQUE: Multi-detector CT angiography axial slices of the head and neck during intravenous administration of IV contrast material. Sagittal, coronal, and 3-D reconstructions were performed and viewed on a separate workstation. CT was performed with one or more of the following dose reduction techniques: Automated exposure control, adjustment of the mA and/or kV according to patient size, or use of iterative reconstruction technique. Stenoses were measured usingthe NASCET criteria. COMPARISON: CT head 07/22/2024 FINDINGS: MILD PLAQUE AORTIC ARCH AND GREAT VESSELS. THREE-VESSEL ARCH. CAROTID SYSTEMS ARE PATENT WITH MILD PLAQUE BOTH BIFURCATIONS EXTENDING INTO THE PROXIMAL ICAS WITH LESS THAN 50% NARROWING. VERTEBRAL ARTERIES ARE CODOMINANT WITH MILD PLAQUE INVOLVING BOTH OSTIA. INTRACRANIAL ICAS ARE PATENT. ANTERIOR CEREBRAL ARTERIES ARE PATENT. SHORT SEGMENT OF MILD TO MODERATE NARROWING INVOLVING THE LEFT ADA A2 AND A3 SEGMENT. THE MCAS ARE PATENT PROXIMALLY. THERE IS MODERATE NARROWING RIGHT DISTAL M1 SEGMENTS BASILAR ARTERY IS PATENT. THERE IS MODERATE SEVERE NARROWING LEFT P1 P2 JUNCTION. MODERATE NARROWING RIGHT P1 SEGMENT. MILD DIFFUSE NARROWING INVOLVING THE REMAINDER OF THE TOOL GRINDER OPERATOR SURFACE. NO SACCULAR ANEURYSM. MULTILEVEL DEGENERATIVE CHANGES THROUGHOUT THE CERVICAL SPINE CT/CT angio head IMPRESSION: Negative for large vessel occlusion or hemodynamically significant stenosis involving the cervical vessels. Moderate burden of disease identified intracranially notably involving right distal M1 segment. Left A2 A3 segment. Moderate severe narrowing left P1 P2 segment RIVET MAKER. Moderate narrowing right P1 segment RIVET MAKER. Up to 50% narrowing involving both proximal ICAs Impression dictated by: Charli Ferrera M.D. 07/23/2024 8:46 AM Dictation Location: [place] [address] Transcribed By: [facility] 07/23/24845 Dictated By: Charli Ferrera MD 07/23/24 0835 Signed By: 07/23/24 0846 [facility] Work Phone: [phone] Radiology Diagnostic study [facility] [place] [address] [place] [address] CT Scan Report Signed Patient: Janelle Burt MR#: [id number] : 1940 Acct:[id number] Age/Sex: 83 / F ADM Date: 5 Loc: Room: [address] [place] [address] Type: ADM IN Attending Dr: Jhony Davis MD Copies to: MD Asad Dona Jr, MD~ Ordering Provider: Asad Mcnally Jr, MD Date of Service: 07/22/24 CT/CT head stroke alert wo con: stroke CT BRAIN WITHOUT CONTRAST: CLINICAL HISTORY: Stroke alert, left-sided weakness with confusion, possible fall, seizure activityER COMPARISON: None TECHNIQUE: Contiguous axial unenhanced images were obtained through the brain. This CT exam was performed using one or more following dose reduction techniques: Automated exposure control, adjustmentof the mA and/or kV accordingto patient size, or use of iterative reconstruction technique. FINDINGS: Generalized involutional changes with prominence of ventricles and sulci. No evidence acute bleed, midline shift or mass effect. Right RIVET MAKER distribution encephalomalacia noted. Moderate chronic small vessel ischemic disease. Intracranial vascular calcification. No calvarial fracture. Mild ethmoid sinusmucosal thickening. Cataract surgery. CT/CT head stroke alert wo con IMPRESSION: Chronic microvascular disease and Central involutional changes without evidence acute bleed or midline shift. Impression dictated by: Charli Ferrera M.D. 07/23/2024 7:56 AM Dictation Location: [place] [address] Transcribed By: [facility] 07/23/24 075 Dictated By: Charli Ferrera MD 07/23/24 0753 Signed By: 07/23/24 0756 [facility] Work Phone: [phone] History and physical note Author Jon Felder [facility] Note Date/Time July 23, 2024 5:2 4am [facility] [address] [place] [address] Hospitalist H&P Signed with Mac Patient: Janelle Burt MR#: [id number] : 1940 Acct:[id number] Age/Sex: 83 / F Adm Date: 5 Loc: Room: [address] [place] [address] Type: ADM IN Attending Dr: Jon Felder MD Copies to: MD Jon Oakes MD~ ADDENDUM1 I was concerned about pt's mental status, as whether it's a post-ictal vs Subclinical seizure? I spoke to Dr. Bridges, he thinks this could be PRESS syndrome given the constellation of HTN emergency, seizure, and altered mentation. He agrees with the Nicardipine drip, recommends Systolic BP<140, and also states that there is no indication for an emergent Continuous EEG, he will assess in am and see if anurgent MR on Wednesday is needed as well. Also, he recommended a maintenance dose of keppra 1000 mg IV BID to be started, which I already placed. Will continue to closely monitor She did have a fever which could be due to her UTI, which is being treated with IV levofloxacin. 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 Hx obtained from ED staff, pt's daughter atbedside, and pt's chart in the EMR. As per her daughter, pt was not feeling welltoday, around 8 pm she was in bed watching TV when she was noticed to be starring in the space, and then started feeling sick, wanted to go to the bathroom, when her daughter heard her falling. Her daughter is sure she fell andhit her head given that she was wedged in the bathroom with narrow limited spacefor her to move within. Also she noticed she had a contusion to her left earlobe. After that she rushed to the bathroom and stated that her mom was awakebut very tired and she had to help her sit on the bathroom, in the mean time shecalled the squad. As per EMS, pt was slow to respond, LKW was around 8 pm. Apparently in the ED pt was conversant, oriented to person and place and not to event, but was somewhat altered, and had some left sided weakness. CT Later on, pt developed generalized seizure, witnessed by her daughter, describedas twitchiness of her whole body with stiffness, and she almost punched her facebecause of the movements. Treated in the ED for generalized tonic-clonic seizure, was given 1 mg of ativan and loaded with Keppra, after ED contacted neurology. Pt to be admitted to the ICU for further workup and management. At baseline, pt suffered a CVA back in January 2024, since then she has been suffering with her vision, and was not able to read even though she used to loveto do so. Otherwise, she is sharp and oriented, ambulates. 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 Fracture of left foot Retina disorder, left History of left heart catheterization (LHC) Hypoparathyroidism Hypertension Hyperlipidemia Cataract Secondary hyperparathyroidism Hypothyroidism, unspecified Hypertensive chronic kidney disease with stage 1 through stage 4 chronic kidney disease, or unspecified chronic kidney disease History of falling Essential (primary) hypertension Elevated blood pressure reading Dyslipidemia CKD (chronic kidney disease) stage 4, GFR 15-29 ml/min Chronic kidney disease, stage 3 unspecified Cervical cancer CAD in [place] artery Bronchitis, not specified as acute or chronic 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 Cataract Hypertension Surgical History History of partial hysterectomy History of appendectomy S/P partial hysterectomy Family History Father Stroke Mother Stroke Sister Breast cancer Myocardial infarction Daughter Cancer Legacy FamHx Relation: Daughter(s); Legacy FamHx Problem: Diagnosed with Cancer Father History of stroke Legacy FamHx Problem: Diagnosed with Stroke Mother History of stroke Legacy FamHx Problem: Diagnosed with Stroke Sister Cancer Legacy FamHx Problem: Diagnosed with Cancer Heart disease Social History Smoking Status: Former smoker Substance Use Type: None Meds Medications and Allergies Allergies amlodipine (From Norvasc) Allergy (Unknown, Verified 07/22/24 21:12) Unknown Reaction ciprofloxacin Allergy (Unknown, Verified 07/22/24 21:12) Comment:joint pain clonidine (From Catapres) Allergy (Unknown, Verified 07/22/24 21:12) Unknown Reaction hydralazine Allergy (Unknown, Verified 07/22/24 21:12) Unknown Reaction lisinopril Allergy (Unknown, Verified 07/22/24 21:12) Unknown Reaction methylprednisolone (From Medrol) Allergy (Unknown, Verified 07/22/24 21:12) Unknown Reaction Sgmnjlx-DTE-XbT Reductase Inhibitor (Kcdhtuo-Lgv-Eyo Reductase Inhibitor) Allergy (Unknown, Verified 07/22/24 21:12) Unknown Reaction Sulfa (Sulfonamide Antibiotics) Allergy (Unknown, Verified 07/22/24 21:12) Unknown Reaction Home Medications aspirin 81 mg tablet,delayed release (Neli Low Dose Aspirin) 81 mg PO DAILY 03/12/17 [History Confirmed 07/22/24] fenofibrate 54 mg tablet 54 mg PO DAILY 03/12/17 [History Confirmed 07/22/24] nitroglycerin 0.4 mg sublingual tablet 0.4 mg sublingual Q5M PRN chest pain 30 days #25 tabs 01/28/23 [Rx Confirmed 07/22/24] metoprolol tartrate 25 mg tablet 25 mg PO BID #60 tabs 01/29/23 [Rx Confirmed 07/22/24] atorvastatin 40 mg tablet 40 mg PO DAILY 03/14/24 [History Confirmed 07/22/24] levothyroxine 100 mcg tablet 100 mcg PO DAILY 03/28/24 [History Confirmed 07/22/24] apixaban 5 mg tablet (Eliquis) 5 mg PO BID #54 tabs 05/22/24 [Rx Confirmed 07/22/24] valsartan 160 mg tablet 160 mg PO DAILY 05/22/24 [History Confirmed 07/22/24] Exam Physical Exam Vital Signs: Temp Pulse Resp BP Pulse Ox O2 Del Method O2 Flow Rate 98.7 F 94 22 198/100 H 99 Nasal Cannula 2 07/22/24 21:12 07/22/24 23:46 07/22/24 23:46 07/22/24 23:46 07/22/24 23:46 07/22/24 23:46 07/22/24 23:46 Narrative: Constitutional Constitutional Exam: In acute distress and ill appearing, sedated with some tremulous movements while in the ED HEENT Exam Head Exam: normocephalic Eye Exam: No dilated or fixed pupils, pupils were reactive to light ENT Exam: mucous membranes moist Neck Exam Neck Exam: supple, no JVD, no thyromegaly, no lymphadenopathy Chest/Breast/Axilla Exam Chest Wall Exam: no tenderness Respiratory Exam Respiratory Exam: CTA bilaterally and no wheezes Cardiovascular Exam Cardiovascular exam: RR, normal S1 and S2 Abdominal Exam GI/Abdominal Exam: soft and no tenderness, no signs of acute abdomen, normoactive bowel sounds Extremities Exam Extremities Exam: No lower extremity edema, intact peripheral pulses Back/Spine/Pelvis Exam Back Exam: full ROM Skin Exam Skin Exam: intact, dry and warm Neurological Exam Neurological Exam: Sedated, able to secure her airways for now, but not following commands, neuro exam was limited Results - Hospitalist H&P Lab Results Labs: Laboratory Last Values Corrected WBC 9.8 X10E3/uL (3.8-11.6) 07/22/24 21:10 Uncorrected WBC Count 9.8 x10E3/uL (3.8-11.6) 07/22/24 21:10 RBC 4.64 x10E6/uL (3.60-5.00) 07/22/24 21:10 Hgb 14.2 g/dL (11.8-15.4) 07/22/24 21:10 POC Hgb 14.6 g/dl (12.0-17.0) 07/22/24 21:12 Hct 41.2 % (34.0-46.4) 07/22/24 21:10 POC Hct 43.0 % (38.0-51.0) 07/22/24 21:12 MCV 88.7 fl (80-100) 07/22/24 21:10 MCH 30.6 pg (24.7-34.3) 07/22/24 21:10 MCHC 34.5 g/dL (32.0-35.0) 07/22/24 21:10 RDW 13.4 % (11.9-15.3) 07/22/24 21:10 Plt Count 228 x10E3/uL (150-450) 07/22/24 21:10 MPV 7.4 fl (6.3-10.7) 07/22/24 21:10 Neut % (Auto) 75.4 % (.) 07/22/24 21:10 Lymph % (Auto) 17.6 % (.) 07/22/24 21:10 [place] % (Auto) 5.3 % (.) 07/22/24 21:10 Eos % (Auto) 0.9 % (.) 07/22/24 21:10 Baso % (Auto) 0.8 % (.) 07/22/24 21:10 Nucleat RBC Rel Count 0.1 /100 WBC (0-0.5) 07/22/24 21:10 Neut # (Auto) 7.4 x10E3/uL (1.8-7.7) 07/22/24 21:10 Lymph # (Auto) 1.7 x10E3/uL (1.00-4.8) 07/22/24 21:10 [place] # (Auto) 0.5 x10E3/uL (0.0-0.8) 07/22/24 21:10 Eos # (Auto) 0.1 x10E3/uL (0.0-0.45) 07/22/24 21:10 Baso # (Auto) 0.1 x10E3/uL (0.0-0.2) 07/22/24 21:10 Monocyte Dist Width 18.03 % (0.00-20.00) 07/22/24 21:10 PT 14.9 Seconds (9.0-12.9) H 07/22/24 21:10 INR 1.3 07/22/24 21:10 APTT 33.6 Seconds (25.1-36.5) 07/22/24 21:10 PHA Creatinine Clear 38.06 07/22/24 21:10 POC Sodium 132 mmol/L (138-146) L 07/22/24 21:12 Sodium 131 mmol/L (136-145) L 07/22/24 21:10 POC Potassium 3.7 mmol/L (3.5-4.9) 07/22/24 21:12 Potassium 3.6 mmol/L (3.5-5.1) 07/22/24 21:10 POC Chloride 97.0 mmol/L (98-109) L 07/22/24 21:12 Chloride 97 mmol/L (98-107) L 07/22/24 21:10 Carbon Dioxide 24.9 mmol/L (21.0-31.0) 07/22/24 21:10 POC Total CO2 25 mmol/L (23-29) 07/22/24 21:12 Anion Gap 12.7 mEq/L (6.0-15.0) 07/22/24 21:10 POC BUN 18 mg/dl (8-26) 07/22/24 21:12 BUN 18 mg/dL (7-25) 07/22/24 21:10 Creatinine 0.99 mg/dL (0.60-1.20) 07/22/24 21:10 POC Creatinine 1.2 mg/dl (0.6-1.3) 07/22/24 21:12 Est GFR (CKD-EPI) 56.226 mL/Min 07/22/24 21:10 Glucose 116 mg/dL (70-100) H 07/22/24 21:10 POC Whole Bld Glucose 117 mg/dl (70-105) H 07/22/24 21:12 POC Glucose 113 mg/dl 07/22/24 21:11 Calcium 9.5 mg/dL (8.6-10.3) 07/22/24 21:10 POC Ioniz Calcium [place] 1.18 mol/L (1.12-1.32) 07/22/24 21:12 Total Bilirubin 0.9 mg/dl (0.3-1.0) 07/22/24 21:10 AST 20 U/L (13-39) 07/22/24 21:10 ALT 12 U/L (7-52) 07/22/24 21:10 Alkaline Phosphatase 53 U/L (34-104) 07/22/24 21:10 Total Creatine Kinase 88 U/L (30-223) 07/22/24 21:10 Troponin I High Sens 9 ng/L (0-15) 07/22/24 21:10 Total Protein 7.0 gm/dL (6.4-8.9) 07/22/24 21:10 Albumin 4.1 gm/dL (3.5-5.7) 07/22/24 21:10 Globulin 2.9 gm/dL 07/22/24 21:10 Albumin/Globulin Ratio 1.4 07/22/24 21:10 Urine Color Light-yellow (Yellow) 07/22/24 21:55 Urine Appearance Clear (Clear) 07/22/24 21:55 Urine pH 8.0 (5.0-9.0) 07/22/24 21:55 Ur Specific [place] 1.025 (1.001-1.030) 07/22/24 21:55 Urine Protein Negative mg/dL (Negative) 07/22/24 21:55 Urine Glucose (UA) Normal mg/dL (Normal) 07/22/24 21:55 Urine Ketones Negative (Negative) 07/22/24 21:55 Urine Occult Blood Negative (Negative) 07/22/24 21:55 Urine Nitrite Negative (Negative) 07/22/24 21:55 Urine Bilirubin Negative (Negative) 07/22/24 21:55 Urine Urobilinogen Normal mg/dL (Normal) 07/22/24 21:55 Ur Leukocyte Esterase 2+ (Negative) H 07/22/24 21:55 Urine RBC 3-4 /HPF (0-4) 07/22/24 21:55 Urine WBC 20-49 /HPF (0-4) H 07/22/24 21:55 Ur Squamous Epith Cells N/A 07/22/24 21:55 Urine Bacteria 1+ /HPF (None Seen) H 07/22/24 21:55 Hyaline Casts None /LPF (0-8) 07/22/24 21:55 Assessment & Plan Assessment/Plan (1) Seizure: Plan Altered mental status, in the setting of New Onset Seizure with concern for status epilepticus UTI with hx of pseudomonas on previous Urine cultures back in January 2024 CVA is less likely Hypertensive Emergency -Admit pt to ICU with neuro checks q1 hour, and place on telemetry -Neurology service, Dr. Bridges, is already aware of the pt. Will place an orderfor EEG in am. Further recs in regards to continuous EEG or further medications as per Neurology -Lorazepam 2 mg q2 hours PRN for seizure activities -Obtain Lactic acid and Prolactin STAT in the ED -Obtain MR brain without contrast - Nicardipine drip started by ED -Pt received total of 1.5 mg Lorazepam IV in the ED. I Spoke to the ED, in the mean time, pt is able to secure her airways. If pt were to need more sedation, plan is to intubate her while in the ED. -I would hold off on giving meropenem as this may lower the threshold for seizure, will start levaquin IV to be dosed by pharmacy -I discussed with the daughter her mother's goals of care. She explained to me that her mom would not want life prolonging measures like being on a ventilator machine, but would want simple measures and to be brought back with intubation and CPR if needed . I explained to her in details what we do in case of cardiac arrest, including CPR and intubation that may eventually placing the pt on vent machine, with assessment of the length and duration of her intubation on a dailybasis. She opted for full code for now. I will update the chart for now. And I will make sure to update her if anything happens overnight. I answered all her questions and addressed her concerns. IP vs OBS Justification Based on differential dx, clinical care plan, and risk of adverse events, if untreated, in my clinical judgement this patient requires an acute care setting as: INPATIENT because of an expectation of an over 2 midnight stay. Estimated length of stay (# of days): 4 Time Spent With Patient (min): 75 Documented By: Jon Felder MD 07/22/24 4815 Signed By: <Electronically signed by Jon Felder MD> 07/23/24 0148 [facility] Work Phone: [phone]) [phone] [place] [address] Hospitalist H&P Signed with Addenda Patient: Janelle Burt MR#: [id number] : 1940 Acct:[id number] Age/Sex: 83 / F Adm Date: 5 Loc: Room: [address] [place] [address] Type: ADM IN Attending Dr: Jon Felder MD Copies to: MD Jon Oakes MD~ ADDENDUM1 I was concerned about pt's mental status, as whether it's a post-ictal vs Subclinical seizure? I spoke to Dr. Bridges, he thinks this could be PRESS syndrome given the constellation of HTN emergency, seizure, and altered mentation. He agrees with the Nicardipine drip, recommends Systolic BP<140, and also states that there is no indication for an emergent Continuous EEG, he will assess in am and see if anurgent MR on Wednesday is needed as well. Also, he recommended a maintenance dose of keppra 1000 mg IV BID to be started, which I already placed. Will continue to closely monitor She did have a fever which could be due to her UTI, which is being treated with IV levofloxacin. 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 Hx obtained from ED staff, pt's daughter atbedside, and pt's chart in the EMR. As per her daughter, pt was not feeling welltoday, around 8 pm she was in bed watching TV when she was noticed to be starring in the space, and then started feeling sick, wanted to go to the bathroom, when her daughter heard her falling. Her daughter is sure she fell andhit her head given that she was wedged in the bathroom with narrow limited spacefor her to move within. Also she noticed she had a contusion to her left earlobe. After that she rushed to the bathroom and stated that her mom was awakebut very tired and shehad to help her sit on the bathroom, in the mean time shecalled the squad. As per EMS, pt was slow to respond, LKW was around 8 pm. Apparently in the ED pt was conversant, oriented to person and place and not to event, but was somewhat altered, and had some left sided weakness. CT Later on, pt developed generalized seizure, witnessed by her daughter, describedas twitchiness of her whole body with stiffness, and she almost punched her facebecause of the movements. Treated in the ED for generalized tonic-clonic seizure, was given 1 mg of ativan and loaded with Keppra, after EDcontacted neurology. Pt to be admitted to the ICU for further workup and management. At baseline, pt suffered a CVA back in January 2024, since then she has been suffering with her vision, and was not able to read even though she used to loveto do so. Otherwise, she is sharp and oriented, ambulates. 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 Fracture of left foot Retina disorder, left History of left heart catheterization (LHC) Hypoparathyroidism Hypertension Hyperlipidemia Cataract Secondary hyperparathyroidism Hypothyroidism, unspecified Hypertensive chronic kidney disease with stage 1 through stage 4 chronic kidney disease, or unspecified chronic kidney disease History of falling Essential (primary) hypertension Elevated blood pressure reading Dyslipidemia CKD (chronic kidney disease) stage 4, GFR 15-29 ml/min Chronic kidney disease, stage 3 unspecified Cervical cancer CAD in [place] artery Bronchitis, not specified as acute or chronic 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 Cataract Hypertension Surgical History History of partial hysterectomy History of appendectomy S/P partial hysterectomy Family History Father Stroke Mother Stroke Sister Breast cancer Myocardial infarction Daughter Cancer Legacy FamHx Relation: Daughter(s); Legacy FamHx Problem: Diagnosed with Cancer Father History of stroke Legacy FamHx Problem: Diagnosed with Stroke Mother History of stroke Legacy FamHx Problem: Diagnosed with Stroke Sister Cancer Legacy FamHx Problem: Diagnosed with Cancer Heart disease Social History Smoking Status: Former smoker Substance Use Type: None Meds Medications and Allergies Allergies amlodipine (From Norvasc) Allergy (Unknown, Verified 07/22/24 21:12) Unknown Reaction ciprofloxacin Allergy (Unknown, Verified 07/22/24 21:12) Comment:joint pain clonidine (From Catapres) Allergy (Unknown, Verified 07/22/24 21:12) Unknown Reaction hydralazine Allergy (Unknown, Verified 07/22/24 21:12) Unknown Reaction lisinopril Allergy (Unknown, Verified 07/22/24 21:12) Unknown Reaction methylprednisolone (From Medrol) Allergy (Unknown, Verified 07/22/24 21:12) Unknown Reaction Ugdokyq-WTF-CcN Reductase Inhibitor (Vvsvhrm-Yux-Aav Reductase Inhibitor) Allergy (Unknown, Verified 07/22/24 21:12) Unknown Reaction Sulfa (Sulfonamide Antibiotics) Allergy (Unknown, Verified 07/22/24 21:12) Unknown Reaction Home Medications aspirin 81 mg tablet,delayed release (Nlei Low Dose Aspirin) 81 mg PO DAILY 03/12/17 [History Confirmed 07/22/24] fenofibrate 54 mg tablet 54 mg PO DAILY 03/12/17 [History Confirmed 07/22/24] nitroglycerin 0.4 mg sublingual tablet 0.4 mg sublingual Q5M PRN chest pain 30 days #25 tabs 01/28/23 [Rx Confirmed 07/22/24] metoprolol tartrate 25 mg tablet 25 mg PO BID #60 tabs 01/29/23 [Rx Confirmed 07/22/24] atorvastatin 40 mg tablet 40 mg PO DAILY 03/14/24 [History Confirmed 07/22/24] levothyroxine 100 mcg tablet 100 mcg PO DAILY 03/28/24 [History Confirmed 07/22/24] apixaban 5 mg tablet (Eliquis) 5 mg PO BID #54 tabs 05/22/24 [Rx Confirmed 07/22/24] valsartan 160 mg tablet 160 mg PO DAILY 05/22/24 [History Confirmed 07/22/24] Exam Physical Exam Vital Signs: Temp Pulse Resp BP Pulse Ox O2 Del Method O2 Flow Rate 98.7 F 94 22 198/100 H 99 Nasal Cannula 2 07/22/24 21:12 07/22/24 23:46 07/22/24 23:46 07/22/24 23:46 07/22/24 23:46 07/22/24 23:46 07/22/24 23:46 Narrative: Constitutional Constitutional Exam: In acute distress and ill appearing, sedated with some tremulous movements while in the ED HEENT Exam Head Exam: normocephalic Eye Exam: No dilated or fixed pupils, pupils were reactive to light ENT Exam: mucous membranes moist Neck Exam Neck Exam: supple, no JVD, no thyromegaly, no lymphadenopathy Chest/Breast/Axilla Exam Chest Wall Exam: no tenderness Respiratory Exam Respiratory Exam: CTA bilaterally and no wheezes Cardiovascular Exam Cardiovascular exam: RR, normal S1 and S2 Abdominal Exam GI/Abdominal Exam: soft and no tenderness, no signs of acute abdomen, normoactive bowel sounds Extremities Exam Extremities Exam: No lower extremity edema, intact peripheral pulses Back/Spine/Pelvis Exam Back Exam: full ROM Skin Exam Skin Exam: intact, dry and warm Neurological Exam Neurological Exam: Sedated, able to secure her airways for now, but not following commands, neuro exam was limited Results - Hospitalist H&P Lab Results Labs: Laboratory Last Values Corrected WBC 9.8 X10E3/uL (3.8-11.6) 07/22/24 21:10 Uncorrected WBC Count 9.8 x10E3/uL (3.8-11.6) 07/22/24 21:10 RBC 4.64 x10E6/uL (3.60-5.00) 07/22/24 21:10 Hgb 14.2 g/dL (11.8-15.4) 07/22/24 21:10 POC Hgb 14.6 g/dl (12.0-17.0) 07/22/24 21:12 Hct 41.2 % (34.0-46.4) 07/22/24 21:10 POC Hct 43.0 % (38.0-51.0) 07/22/24 21:12 MCV 88.7 fl (80-100) 07/22/24 21:10 MCH 30.6 pg (24.7-34.3) 07/22/24 21:10 MCHC 34.5 g/dL (32.0-35.0) 07/22/24 21:10 RDW 13.4 % (11.9-15.3) 07/22/24 21:10 Plt Count 228 x10E3/uL (150-450) 07/22/24 21:10 MPV 7.4 fl (6.3-10.7) 07/22/24 21:10 Neut % (Auto) 75.4 % (.) 07/22/24 21:10 Lymph % (Auto) 17.6 % (.) 07/22/24 21:10 [place] % (Auto) 5.3 % (.) 07/22/24 21:10 Eos % (Auto) 0.9 % (.) 07/22/24 21:10 Baso % (Auto) 0.8 % (.) 07/22/24 21:10 Nucleat RBC Rel Count 0.1 /100 WBC (0-0.5) 07/22/24 21:10 Neut # (Auto) 7.4 x10E3/uL (1.8-7.7) 07/22/24 21:10 Lymph # (Auto) 1.7 x10E3/uL (1.00-4.8) 07/22/24 21:10 [place] # (Auto) 0.5 x10E3/uL (0.0-0.8) 07/22/24 21:10 Eos # (Auto) 0.1 x10E3/uL (0.0-0.45) 07/22/24 21:10 Baso # (Auto) 0.1 x10E3/uL (0.0-0.2) 07/22/24 21:10 Monocyte Dist Width 18.03 % (0.00-20.00) 07/22/24 21:10 PT 14.9 Seconds (9.0-12.9) H 07/22/24 21:10 INR 1.3 07/22/24 21:10 APTT 33.6 Seconds (25.1-36.5) 07/22/24 21:10 PHA Creatinine Clear 38.06 07/22/24 21:10 POC Sodium 132 mmol/L (138-146) L 07/22/24 21:12 Sodium 131 mmol/L (136-145) L 07/22/24 21:10 POC Potassium 3.7 mmol/L (3.5-4.9) 07/22/24 21:12 Potassium 3.6 mmol/L (3.5-5.1) 07/22/24 21:10 POC Chloride 97.0 mmol/L (98-109) L 07/22/24 21:12 Chloride 97 mmol/L (98-107) L 07/22/24 21:10 Carbon Dioxide 24.9 mmol/L (21.0-31.0) 07/22/24 21:10 POC Total CO2 25 mmol/L (23-29) 07/22/24 21:12 Anion Gap 12.7 mEq/L (6.0-15.0) 07/22/24 21:10 POC BUN 18 mg/dl (8-26) 07/22/24 21:12 BUN 18 mg/dL (7-25) 07/22/24 21:10 Creatinine 0.99 mg/dL (0.60-1.20) 07/22/24 21:10 POC Creatinine 1.2 mg/dl (0.6-1.3) 07/22/24 21:12 Est GFR (CKD-EPI) 56.226 mL/Min 07/22/24 21:10 Glucose 116 mg/dL (70-100) H 07/22/24 21:10 POC Whole Bld Glucose 117 mg/dl (70-105) H 07/22/24 21:12 POC Glucose 113 mg/dl 07/22/24 21:11 Calcium 9.5 mg/dL (8.6-10.3) 07/22/24 21:10 POC Ioniz Calcium Sunni 1.18 mol/L (1.12-1.32) 07/22/24 21:12 Total Bilirubin 0.9 mg/dl (0.3-1.0) 07/22/24 21:10 AST 20 U/L (13-39) 07/22/24 21:10 ALT 12 U/L (7-52) 07/22/24 21:10 Alkaline Phosphatase 53 U/L (34-104) 07/22/24 21:10 Total Creatine Kinase 88 U/L (30-223) 07/22/24 21:10 Troponin I High Sens 9 ng/L (0-15) 07/22/24 21:10 Total Protein 7.0 gm/dL (6.4-8.9) 07/22/24 21:10 Albumin 4.1 gm/dL (3.5-5.7) 07/22/24 21:10 Globulin 2.9 gm/dL 07/22/24 21:10 Albumin/Globulin Ratio 1.4 07/22/24 21:10 Urine Color Light-yellow (Yellow) 07/22/24 21:55 Urine Appearance Clear (Clear) 07/22/24 21:55 Urine pH 8.0 (5.0-9.0) 07/22/24 21:55 Ur Specific [place] 1.025 (1.001-1.030) 07/22/24 21:55 Urine Protein Negative mg/dL (Negative) 07/22/24 21:55 Urine Glucose (UA) Normal mg/dL (Normal) 07/22/24 21:55 Urine Ketones Negative (Negative) 07/22/24 21:55 Urine Occult Blood Negative (Negative) 07/22/24 21:55 Urine Nitrite Negative (Negative) 07/22/24 21:55 Urine Bilirubin Negative (Negative) 07/22/24 21:55 Urine Urobilinogen Normal mg/dL (Normal) 07/22/24 21:55 Ur Leukocyte Esterase 2+ (Negative) H 07/22/24 21:55 Urine RBC 3-4 /HPF (0-4) 07/22/24 21:55 Urine WBC 20-49 /HPF (0-4) H 07/22/24 21:55 Ur Squamous Epith Cells N/A 07/22/24 21:55 Urine Bacteria 1+ /HPF (None Seen) H 07/22/24 21:55 Hyaline Casts None /LPF (0-8) 07/22/24 21:55 Assessment & Plan Assessment/Plan (1) Seizure: Plan Altered mental status, in the setting of New Onset Seizure with concern for status epilepticus UTI with hx of pseudomonas on previous Urine cultures back in January 2024 CVA is less likely Hypertensive Emergency -Admit pt to ICU with neuro checks q1 hour, and place on telemetry -Neurology service, Dr. Bridges, is already aware of the pt. Will place an orderfor EEG in am. Further recs in regards to continuous EEG or further medications as per Neurology -Lorazepam 2 mg q2 hours PRN for seizure activities -Obtain Lactic acid and Prolactin STAT in the ED -Obtain MR brain without contrast - Nicardipine drip started by ED -Pt received total of 1.5 mg Lorazepam IV in the ED. I Spoke to the ED, in the mean time, pt is able to secure her airways. If pt were to need more sedation, plan is to intubate her while in the ED. -I would hold off on giving meropenem as this may lower the threshold for seizure, will start levaquin IV to be dosed by pharmacy -I discussed with the daughter her mother's goals of care. She explained to me that her mom would not want life prolonging measures like being on a ventilator machine, but would want simple measuresand to be brought back with intubation and CPR if needed . I explained to her in details what we doin case of cardiac arrest, including CPR and intubation that may eventually placing the pt on vent machine, with assessment of the length and duration of her intubation on a dailybasis. She opted forfull code for now. I will update the chart for now. And I will make sure to update her if anything happens overnight. I answered all her questions and addressed her concerns. IP vs OBS Justification Based on differential dx, clinical care plan, and risk of adverse events, if untreated, in my clinical judgement this patient requires an acute care setting as: INPATIENT because of an expectation ofan over 2 midnight stay. Estimated length of stay (# of days): 4 Time Spent With Patient (min): 75 Documented By: Jon Felder MD 07/22/24 7475 Signed By: 07/23/24 0148 [facility]04-27-2025 [place] [address] Hospitalist H&P Signed Patient: Janelle Burt MR#: [id number] : 1940 Acct:[id number] Age/Sex: 83 / F Adm Date: 5 Loc: Room: [address] [place] [address] Type: ADM IN Attending Dr: Jon Felder MD Copies to: MD Jon Oakes MD~ HPI DATE OF EXAMINATION: 07/22/24 CHIEF COMPLAINT: Fall at around 8:30 pm HISTORY OF PRESENT ILLNESS: This is a 83 y.o female with past medical hx of 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 Hx obtained from ED staff, pt's daughter atbedside, and pt's chart in the EMR. As per her daughter, pt was not feeling welltoday, around 8 pm she was in bed watching TV when she was noticed to be starring in the space, and then started feeling sick, wanted to go to the bathroom, when her daughter heard her falling. Her daughter is sure she fell andhit her head given that she was wedged in the bathroom with narrow limited spacefor her to move within. Also she noticed she had a contusion to her left earlobe. After that she rushed to the bathroom and stated that her mom was awakebut very tired and shehad to help her sit on the bathroom, in the mean time shecalled the squad. As per EMS, pt was slow to respond, LKW was around 8 pm. Apparently in the ED pt was conversant, oriented to person and place and not to event, but was somewhat altered, and had some left sided weakness. CT Later on, pt developed generalized seizure, witnessed by her daughter, describedas twitchiness of her whole body with stiffness, and she almost punched her facebecause of the movements. Treated in the ED for generalized tonic-clonic seizure, was given 1 mg of ativan and loaded with Keppra, after EDcontacted neurology. Pt to be admitted to the ICU for further workup and management. At baseline, pt suffered a CVA back in January 2024, since then she has been suffering with her vision, and was not able to read even though she used to loveto do so. Otherwise, she is sharp and oriented, ambulates. 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 Fracture of left foot Retina disorder, left History of left heart catheterization (LHC) Hypoparathyroidism Hypertension Hyperlipidemia Cataract Secondary hyperparathyroidism Hypothyroidism, unspecified Hypertensive chronic kidney disease with stage 1 through stage 4 chronic kidney disease, or unspecified chronic kidney disease History of falling Essential (primary) hypertension Elevated blood pressure reading Dyslipidemia CKD (chronic kidney disease) stage 4, GFR 15-29 ml/min Chronic kidney disease, stage 3 unspecified Cervical cancer CAD in [place] artery Bronchitis, not specified as acute or chronic 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 Cataract Hypertension Surgical History History of partial hysterectomy History of appendectomy S/P partial hysterectomy Family History Father Stroke Mother Stroke Sister Breast cancer Myocardial infarction Daughter Cancer Legacy FamHx Relation: Daughter(s); Legacy FamHx Problem: Diagnosed with Cancer Father History of stroke Legacy FamHx Problem: Diagnosed with Stroke Mother History of stroke Legacy FamHx Problem: Diagnosed with Stroke Sister Cancer Legacy FamHx Problem: Diagnosed with Cancer Heart disease Social History Smoking Status: Former smoker Substance Use Type: None Meds Medications and Allergies Allergies amlodipine (From Norvasc) Allergy (Unknown, Verified 07/22/24 21:12) Unknown Reaction ciprofloxacin Allergy (Unknown, Verified 07/22/24 21:12) Comment:joint pain clonidine (From Catapres) Allergy (Unknown, Verified 07/22/24 21:12) Unknown Reaction hydralazine Allergy (Unknown, Verified 07/22/24 21:12) Unknown Reaction lisinopril Allergy (Unknown, Verified 07/22/24 21:12) Unknown Reaction methylprednisolone (From Medrol) Allergy (Unknown, Verified 07/22/24 21:12) Unknown Reaction Gicucny-NFY-JpG Reductase Inhibitor (Nphsqob-Pbc-Lxu Reductase Inhibitor) Allergy (Unknown, Verified 07/22/24 21:12) Unknown Reaction Sulfa (Sulfonamide Antibiotics) Allergy (Unknown, Verified 07/22/24 21:12) Unknown Reaction Home Medications aspirin 81 mg tablet,delayed release (Neli Low Dose Aspirin) 81 mg PO DAILY 03/12/17 [History Confirmed 07/22/24] fenofibrate 54 mg tablet 54 mg PO DAILY 03/12/17 [History Confirmed 07/22/24] nitroglycerin 0.4 mg sublingual tablet 0.4 mg sublingual Q5M PRN chest pain 30 days #25 tabs 01/28/23 [Rx Confirmed 07/22/24] metoprolol tartrate 25 mg tablet 25 mg PO BID #60 tabs 01/29/23 [Rx Confirmed 07/22/24] atorvastatin 40 mg tablet 40 mg PO DAILY 03/14/24 [History Confirmed 07/22/24] levothyroxine 100 mcg tablet 100 mcg PO DAILY 03/28/24 [History Confirmed 07/22/24] apixaban 5 mg tablet (Eliquis) 5 mg PO BID #54 tabs 05/22/24 [Rx Confirmed 07/22/24] valsartan 160 mg tablet 160 mg PO DAILY 05/22/24 [History Confirmed 07/22/24] Exam Physical Exam Vital Signs: Temp Pulse Resp BP Pulse Ox O2 Del Method O2 Flow Rate 98.7 F 94 22 198/100 H 99 Nasal Cannula 2 07/22/24 21:12 07/22/24 23:46 07/22/24 23:46 07/22/24 23:46 07/22/24 23:46 07/22/24 23:46 07/22/24 23:46 Narrative: Constitutional Constitutional Exam: In acute distress and ill appearing, sedated with some tremulous movements while in the ED HEENT Exam Head Exam: normocephalic Eye Exam: No dilated or fixed pupils, pupils were reactive to light ENT Exam: mucous membranes moist Neck Exam Neck Exam: supple, no JVD, no thyromegaly, no lymphadenopathy Chest/Breast/Axilla Exam Chest Wall Exam: no tenderness Respiratory Exam Respiratory Exam: CTA bilaterally and no wheezes Cardiovascular Exam Cardiovascular exam: RR, normal S1 and S2 Abdominal Exam GI/Abdominal Exam: soft and no tenderness, no signs of acute abdomen, normoactive bowel sounds Extremities Exam Extremities Exam: No lower extremity edema, intact peripheral pulses Back/Spine/Pelvis Exam Back Exam: full ROM Skin Exam Skin Exam: intact, dry and warm Neurological Exam Neurological Exam: Sedated, able to secure her airways for now, but not following commands, neuro exam was limited Results - Hospitalist H&P Lab Results Labs: Laboratory Last Values Corrected WBC 9.8 X10E3/uL (3.8-11.6) 07/22/24 21:10 Uncorrected WBC Count 9.8 x10E3/uL (3.8-11.6) 07/22/24 21:10 RBC 4.64 x10E6/uL (3.60-5.00) 07/22/24 21:10 Hgb 14.2 g/dL (11.8-15.4) 07/22/24 21:10 POC Hgb 14.6 g/dl (12.0-17.0) 07/22/24 21:12 Hct 41.2 % (34.0-46.4) 07/22/24 21:10 POC Hct 43.0 % (38.0-51.0) 07/22/24 21:12 MCV 88.7 fl (80-100) 07/22/24 21:10 MCH 30.6 pg (24.7-34.3) 07/22/24 21:10 MCHC 34.5 g/dL (32.0-35.0) 07/22/24 21:10 RDW 13.4 % (11.9-15.3) 07/22/24 21:10 Plt Count 228 x10E3/uL (150-450) 07/22/24 21:10 MPV 7.4 fl (6.3-10.7) 07/22/24 21:10 Neut % (Auto) 75.4 % (.) 07/22/24 21:10 Lymph % (Auto) 17.6 % (.) 07/22/24 21:10 [place] % (Auto) 5.3 % (.) 07/22/24 21:10 Eos % (Auto) 0.9 % (.) 07/22/24 21:10 Baso % (Auto) 0.8 % (.) 07/22/24 21:10 Nucleat RBC Rel Count 0.1 /100 WBC (0-0.5) 07/22/24 21:10 Neut # (Auto) 7.4 x10E3/uL (1.8-7.7) 07/22/24 21:10 Lymph # (Auto) 1.7 x10E3/uL (1.00-4.8) 07/22/24 21:10 [place] # (Auto) 0.5 x10E3/uL (0.0-0.8) 07/22/24 21:10 Eos # (Auto) 0.1 x10E3/uL (0.0-0.45) 07/22/24 21:10 Baso # (Auto) 0.1 x10E3/uL (0.0-0.2) 07/22/24 21:10 Monocyte Dist Width 18.03 % (0.00-20.00) 07/22/24 21:10 PT 14.9 Seconds (9.0-12.9) H 07/22/24 21:10 INR 1.3 07/22/24 21:10 APTT 33.6 Seconds (25.1-36.5) 07/22/24 21:10 PHA Creatinine Clear 38.06 07/22/24 21:10 POC Sodium 132 mmol/L (138-146) L 07/22/24 21:12 Sodium 131 mmol/L (136-145) L 07/22/24 21:10 POC Potassium 3.7 mmol/L (3.5-4.9) 07/22/24 21:12 Potassium 3.6 mmol/L (3.5-5.1) 07/22/24 21:10 POC Chloride 97.0 mmol/L (98-109) L 07/22/24 21:12 Chloride 97 mmol/L (98-107) L 07/22/24 21:10 Carbon Dioxide 24.9 mmol/L (21.0-31.0) 07/22/24 21:10 POC Total CO2 25 mmol/L (23-29) 07/22/24 21:12 Anion Gap 12.7 mEq/L (6.0-15.0) 07/22/24 21:10 POC BUN 18 mg/dl (8-26) 07/22/24 21:12 BUN 18 mg/dL (7-25) 07/22/24 21:10 Creatinine 0.99 mg/dL (0.60-1.20) 07/22/24 21:10 POC Creatinine 1.2 mg/dl (0.6-1.3) 07/22/24 21:12 Est GFR (CKD-EPI) 56.226 mL/Min 07/22/24 21:10 Glucose 116 mg/dL (70-100) H 07/22/24 21:10 POC Whole Bld Glucose 117 mg/dl (70-105) H 07/22/24 21:12 POC Glucose 113 mg/dl 07/22/24 21:11 Calcium 9.5 mg/dL (8.6-10.3) 07/22/24 21:10 POC Ioniz Calcium [place] 1.18 mol/L (1.12-1.32) 07/22/24 21:12 Total Bilirubin 0.9 mg/dl (0.3-1.0) 07/22/24 21:10 AST 20 U/L (13-39) 07/22/24 21:10 ALT 12 U/L (7-52) 07/22/24 21:10 Alkaline Phosphatase 53 U/L (34-104) 07/22/24 21:10 Total Creatine Kinase 88 U/L (30-223) 07/22/24 21:10 Troponin I High Sens 9 ng/L (0-15) 07/22/24 21:10 Total Protein 7.0 gm/dL (6.4-8.9) 07/22/24 21:10 Albumin 4.1 gm/dL (3.5-5.7) 07/22/24 21:10 Globulin 2.9 gm/dL 07/22/24 21:10 Albumin/Globulin Ratio 1.4 07/22/24 21:10 Urine Color Light-yellow (Yellow) 07/22/24 21:55 Urine Appearance Clear (Clear) 07/22/24 21:55 Urine pH 8.0 (5.0-9.0) 07/22/24 21:55 Ur Specific [place] 1.025 (1.001-1.030) 07/22/24 21:55 Urine Protein Negative mg/dL (Negative) 07/22/24 21:55 Urine Glucose (UA) Normal mg/dL (Normal) 07/22/24 21:55 Urine Ketones Negative (Negative) 07/22/24 21:55 Urine Occult Blood Negative (Negative) 07/22/24 21:55 Urine Nitrite Negative (Negative) 07/22/24 21:55 Urine Bilirubin Negative (Negative) 07/22/24 21:55 Urine Urobilinogen Normal mg/dL (Normal) 07/22/24 21:55 Ur Leukocyte Esterase 2+ (Negative) H 07/22/24 21:55 Urine RBC 3-4 /HPF (0-4) 07/22/24 21:55 Urine WBC 20-49 /HPF (0-4) H 07/22/24 21:55 Ur Squamous Epith Cells N/A 07/22/24 21:55 Urine Bacteria 1+ /HPF (None Seen) H 07/22/24 21:55 Hyaline Casts None /LPF (0-8) 07/22/24 21:55 Assessment & Plan Assessment/Plan (1) Seizure: Plan Altered mental status, in the setting of New Onset Seizure with concern for status epilepticus UTI with hx of pseudomonas on previous Urine cultures back in January 2024 CVA is less likely Hypertensive Emergency -Admit pt to ICU with neuro checks q1 hour, and place on telemetry -Neurology service, Dr. Bridges, is already aware of the pt. Will place an orderfor EEG in am. Further recs in regards to continuous EEG or further medications as per Neurology -Lorazepam 2 mg q2 hours PRN for seizure activities -Obtain Lactic acid and Prolactin STAT in the ED -Obtain MR brain without contrast - Nicardipine drip started by ED -Pt received total of 1.5 mg Lorazepam IV in the ED. I Spoke to the ED, in the mean time, pt is able to secure her airways. If pt were to need more sedation, plan is to intubate her while in the ED. -I would hold off on giving meropenem as this may lower the threshold for seizure, will start levaquin IV to be dosed by pharmacy -I discussed with the daughter her mother's goals of care. She explained to me that her mom would not want life prolonging measures like being on a ventilator machine, but would want simple measuresand to be brought back with intubation and CPR if needed . I explained to her in details what we doin case of cardiac arrest, including CPR and intubation that may eventually placing the pt on vent machine, with assessment of the length and duration of her intubation on a dailybasis. She opted forfull code for now. I will update the chart for now. And I will make sure to update her if anything happens overnight. I answered all her questions and addressed her concerns. IP vs OBS Justification Based on differential dx, clinical care plan, and risk of adverse events, if untreated, in my clinical judgement this patient requires an acute care setting as: INPATIENT because of an expectation ofan over 2 midnight stay. Estimated length of stay (# of days): 4 Time Spent With Patient (min): 75 Documented By: Jon Felder MD 07/22/24 9834 Signed By: 07/23/24 0148 [facility]04-27-2025 Evaluation note* Diagnosis Onset Date Resolution Status Admit Date Accelerated hypertension acute July 22, 2024 11:31pm Atrial fibrillation acute July 22, 2024 11:31pm CKD (chronic kidney disease) stage 3, GFR 30-59 ml/min acute July 22, 2024 11:31pm Counseling regarding advance care planning and goals of care acute July 22, 2024 11:31pm Hyponatremia acute July 22, 2024 11:31pm Hypothyroid acute July 22, 025 11:31pm Seizure inactive July 22 11:31pm UTI (urinary tract infection) resolv ed July 22, 2024 11:31pm Altered mental status resolved Apr 2024 11:31pm History of stroke inactive June 282024 11:31pm Accelerated hypertension acute July 25, 2024 6:01pm Hyponatremia acute July 25, 2024 6:01pm Altered mental status resolved Apr 2024 6:01pm UTI (urinary tract infection) resolv ed July 25, 2024 6:01pm History of stroke inactive June 282024 6:01pm Impaired mobility and activities of daily living inactive July 25, 2024 6:01pm Seizure inactive July 25 6:01pm Accelerated hypertension acute August 07, 2024 1:49pm CVA (cerebral vascular accident) acute August 07, 2024 1 :49pm Seizure acute August 07, 2024 1:49pm UTI (urinary tract infection) acute August 07, 2024 1:49pm Vitreous hemorrhage, right eye acute August 07, 2024 1:49pm [facility] Work Phone: 1(419) 869-496104-27-2025 Evaluation note* Diagnosis Onset Date Resolution Status Admit Date Accelerated hypertension acute July 22, 2024 11:31pm Atrial fibrillation acute July 22, 2024 11:31pm CKD (chronic kidney disease) stage 3, GFR 30-59 ml/min acute July 22, 2024 11:31pm Counseling regarding advance care planning and goals of care acute July 22, 2024 11:31pm Hyponatremia acute July 22, 2024 11:31pm Hypothyroid acute July 22 11:31pm Seizure inactive July 22 11:31pm UTI (urinary tract infection) resolv ed July 22, 2024 11:31pm Altered mental status resolved Apr 2024 11:31pm History of stroke inactive June 282024 11:31pm Accelerated hypertension acute July 25, 2024 6:01pm Hyponatremia acute July 25, 2024 6:01pm Altered mental status resolved Apr 2024 6:01pm UTI (urinary tract infection) resolv ed July 25, 2024 6:01pm History of stroke inactive June 282024 6:01pm Impaired mobility and activities of daily living inactive July 25, 2024 6:01pm Seizure inactive July 25 6:01pm Accelerated hypertension acute August 07, 2024 1:49pm CVA (cerebral vascular accident) acute August 07, 2024 1 :49pm Seizure acute August 07, 2024 1:49pm UTI (urinary tract infection) acute August 07, 2024 1:49pm Vitreous hemorrhage, right eye acute August 07, 2024 1:49pm CVA (cerebral vascular accident) acute August 29, 2024 2 :19pm Hypertension acute August 29 2:19pm Left leg pain acute August 29 2:19pm [facility] Work Phone: 1([phone]) 317-114504-27-2025 Evaluation note* Diagnosis Onset Date Resolution Status Admit Date Accelerated hypertension acute July 22, 2024 11:31pm Atrial fibrillation acute July 22, 2024 11:31pm CKD (chronic kidney disease) stage 3, GFR 30-59 ml/min acute July 22, 2024 11:31pm Counseling regarding advance care planning and goals of care acute July 22, 2024 11:31pm Hyponatremia acute July 22, 2024 11:31pm Hypothyroid acute July 22, 025 11:31pm Seizure inactive July 22 11:31pm UTI (urinary tract infection) resolv ed July 22, 2024 11:31pm Altered mental status resolved Apr il 2024 11:31pm History of stroke inactive June 282024 11:31pm Accelerated hypertension acute July 25, 2024 6:01pm Hyponatremia acute July 25, 2024 6:01pm Altered mental status resolved Apr il 2024 6:01pm UTI (urinary tract infection) resolv ed July 25, 2024 6:01pm History of stroke inactive June 282024 6:01pm Impaired mobility and activi ties of daily living inactive July 25, 2024 6:01pm Seizure inactive July 25 6:01pm Accelerated hypertension acute August 07, 2024 1:49pm CVA (cerebral vascular accident) acu te August 07, 2024 1:49pm Seizure acute August 07, 2024 1:49pm UTI (urinary tract infection) acute August 07, 2024 1:49pm Vitreous hemorrhage, right eye acute August 07, 2024 1:49pm CVA (cerebral vascular accident) acu te August 29, 2024 2:19pm Hypertension acute August 29 2:19pm Left leg pain acute August 29, 025 2:19pm CVA (cerebral vascular accident) acu te September 20, 2024 10:35am Metabolic encephalopathy acute September 20, 2024 10:35am Seizure acute September 20 10:35am UTI (urinary tract infection) acute September 20, 2024 10:35am [facility] Work Phone: [phone]) 664-978903-31-2025 Telephone encounter Note* Telephone Encounter - Marina Burt NP - 06/26/2024 9:40 AM EDT Call placed to the patient regarding the lab work that was ordered for her follow up appointment. The patient reports that she has not been able to have this done but plans to do this soon. The patient requests to reschedule her follow up until after this is completed and she denies any new concerns. She is aware of the need to fast for this. Labwork resent to [facility] per patient request. The patent states that her daughter Lesly will call to reschedule. [facility] Work Phone: [phone]) 315-966103-31-2025 Miscellaneous Notes* Telephone Encounter - Marina Burt NP - 06/26/2024 9:40 AM EDT Call placed to the patient regarding the lab work that was ordered for her follow up appointment. The patient reports that she has not been able to have this done but plans to do this soon. The patient requests to reschedule her follow up until after this is completed and she denies any new concerns. She is aware of the need to fast for this. Labwork resent to [facility] per patient request. The patent states that her daughter Lesly will call to reschedule. documented in this encounterThe Rehabilitation Institute of St. [id number] History of Present illness Narrative* Michael Ramos, - 05/25/2024 10:30 AM EST Subjective Janelle Burt is a 83 y.o. female Chief Complaint Blood Pressure Check 83-year-old female with known hypertension returns for blood pressure check status post recent occipital stroke and paroxysmal atrial fibrillation. She has always had difficult to control hypertension but better controlled on current valsartan therapy with allowable mild passive hypertension. She is otherwise doing well, blood pressures are reviewed and noted today at 148/82 Recommendations, follow-up on same therapy and September Review of Systems All other systems reviewed and are negative. Vitals: 05/25/24 1025 05/25/24 1028 BP: 154/84 148/82 BP Location: Right arm Left arm Patient Position: Sitting Sitting Pulse: 60 Weight: 60.2 kg (132 lb 12.8 oz) Height: 1.626 m (5' 4 ) Objective Physical Exam Allergies Clonidine, Methylprednisolone, Fybtajz-bym-gar reductase inhibitors, Tati inhibitors, Amlodipine, Hydralazine, Lisinopril, and Sulfamethoxazole Current Medications Current Outpatient Medications: apixaban (Eliquis) 5 mg tablet, Take 1 tablet (5 mg) by mouth 2 times a day., Disp: 180 tablet, Rfl: 3 aspirin 81 mg EC tablet, Take 1 tablet (81 mg) by mouth once daily., Disp: , Rfl: atorvastatin (Lipitor) 40 mg tablet, Take 1 tablet (40 mg) by mouth once daily., Disp: 90 tablet, Rfl: 3 fenofibrate (Tricor) 54 mg tablet, Take 1 tablet (54 mg) by mouth once daily., Disp: 90 tablet, Rfl: 3 levothyroxine (Synthroid, Levoxyl) 100 mcg tablet, Take 1 tablet (100 mcg) by mouth once daily in the morning. Take before meals., Disp: 90 tablet, Rfl: 3 metoprolol tartrate (Lopressor) 25 mg tablet, Take 1 tablet (25 mg) by mouth 2 times a day., Disp: 180 tablet, Rfl: 3 nitroglycerin (Nitrostat) 0.4 mg SL tablet, Place 1 tablet (0.4 mg) under the tongue every 5 minutes if needed for chest pain. Go to ER or call 911 after 3rd dose., Disp: , Rfl: valsartan (Diovan) 160 mg tablet, Take 1 tablet (160 mg) by mouth once daily., Disp: 90 tablet, Rfl: 3 Assessment/Plan 1. Accelerated hypertension Follow Up In Cardiology Scribe Attestation By signing my name below, I, Alis Trinidad LPNibgiorgi attest that this documentation has been prepared [...] exam, discussion and plan. documented in this [facility] Work Phone: [phone]) 957-708302-27-2025 Instructions* Patient Instructions* Anamaria Pichardo LPN - 05/25/2024 10:30 AM EST Please bring all medicines, vitamins, and herbal supplements with you when you come to the office. Prescriptions will not be filled unless you are compliant with your follow up appointments or have a follow up appointment scheduled as per instruction of your physician. Refills should be requested at the time of your visit. Patient blood pressure logs at home are within normal range. documented in this [facility] Work Phone: [phone]) 753-904302-24-2025 Evaluation note* Diagnosis Onset Date Resolution Status Admit Date Atrial fibrillation acute 2024 1:28pm CKD (chronic kidney disease) stage 3, GFR 30-59 ml/min acute 2024 1:28pm CVA (cerebral vascular accident) acute May 22 1:28pm Hypertension acute April 1:28pm Seizure acute July 22 11:31pm [facility] Work Phone: 1([phone]) 451-781202-24-2025 Evaluation note* Diagnosis Onset Date Resolution Status Admit Date Atrial fibrillation acute 2024 1:28pm CKD (chronic kidney disease) stage 3, GFR 30-59 ml/min acute 2024 1:28pm CVA (cerebral vascular accident) acute May 22 025 1:28pm Hypertension acute April 1:28pm Accelerated hypertension acute July 22, 2024 11:31pm Altered mental status acute Jun 11:31pm Atrial fibrillation acute July 22, 2024 11:31pm CKD (chronic kidney disease) stage 3, GFR 30-59 ml/min acute July 22, 2024 11:31pm Counseling regarding advance care planning and goals of care acute July 22, 2024 11:31pm History of stroke acute June 282024 11:31pm Hyponatremia acute July 22, 2024 11:31pm Hypothyroid acute July 22, 025 11:31pm Seizure acute July 22 11:31pm UTI (urinary tract infection) acute July 22, 2024 11:31pm [facility] Work Phone: 1([phone] 751-884002-24-2025 Evaluation note* Diagnosis Onset Date Resolution Status Admit Date Atrial fibrillation acute 2024 1:28pm CKD (chronic kidney disease) stage 3, GFR 30-59 ml/min acute 2024 1:28pm CVA (cerebral vascular accident) acute May 22 1:28pm Hypertension acute April 1:28pm Accelerated hypertension acute July 22, 2024 11:31pm Atrial fibrillation acute July 22, 2024 11:31pm CKD (chronic kidney disease) stage 3, GFR 30-59 ml/min acute July 22, 2024 11:31pm Counseling regarding advance care planning and goals of care acute July 22, 2024 11:31pm History of stroke acute June 282024 11:31pm Hyponatremia acute July 22, 2024 11:31pm Hypothyroid acute July 22 025 11:31pm Seizure acute July 22 11:31pm UTI (urinary tract infection) acute July 22, 2024 11:31pm Altered mental status resolved Apr 2024 11:31pm Accelerated hypertension acute July 25, 2024 6:01pm History of stroke acute June 282024 6:01pm Hyponatremia acute July 25, 2024 6:01pm Impaired mobility and activities of daily living acute July 25, 2024 6:01pm Seizure acute July 25 6:01pm UTI (urinary tract infection) acute July 25, 2024 6:01pm Altered mental status resolved Apr 2024 6:01pm [facility] Work Phone: 1([phone]) 427-614002-24-2025 Evaluation note* Diagnosis Onset Date Resolution Status Admit Date Atrial fibrillation acute u 2024 1:28pm CKD (chronic kidney disease) stage 3, GFR 30-59 ml/min acute 2024 1:28pm CVA (cerebral vascular accident) acute May 22 025 1:28pm Hypertension acute April 1:28pm Accelerated hypertension acute July 22, 2024 11:31pm Atrial fibrillation acute July 22, 2024 11:31pm CKD (chronic kidney disease) stage 3, GFR 30-59 ml/min acute July 22, 2024 11:31pm Counseling regarding advance care planning and goals of care acute July 22, 2024 11:31pm History of stroke acute June 282024 11:31pm Hyponatremia acute July 22, 2024 11:31pm Hypothyroid acute July 22, 025 11:31pm Seizure acute July 22 11:31pm UTI (urinary tract infection) acute July 22, 2024 11:31pm Altered mental status resolved Apr 2024 11:31pm Accelerated hypertension acute July 25, 2024 6:01pm History of stroke acute June 282024 6:01pm Hyponatremia acute July 25, 2024 6:01pm Impaired mobility and activities of daily living acute July 25, 2024 6:01pm Seizure acute July 25 6:01pm UTI (urinary tract infection) acute July 25, 2024 6:01pm Altered mental status resolved Apr 2024 6:01pm Seizure acute August 07, 2024 1:49pm [facility] Work Phone: 1([phone]) 980-433701-08-2025 History of Present illness Narrative* Michael Ramos, DO - 04/05/2024 10:30 AM EST Subjective Janelle Burt is a 83 y.o. female Chief Complaint Follow-up; Blood Pressure Check 83-year-old female here primarily for blood pressure check however in the interim she is developed an occipital stroke that was recognized by I believe her owner/operator, transferred to [facility], confirmed. Subsequent monitoring revealed 2 episodes of atrial fibrillation for which weimmediately responded and initiated Eliquis. Additionally she remains persistently hypertensive even on higher dose of losartan. Details of her hospitalization, imaging, neurology notes are reviewed She still has mild nasal visual field cuts however no motor or sensory deficits. Blood pressure today remains elevated at 180/78 Recommendations: Switch from losartan to valsartan 160 daily, continue with Eliquis indefinitely, eventually will be able to titrate aspirin down to alternative dosing Wednesday after approximately 6 to 12 months; blood pressure check in the next 6 weeks. ROS Vitals: 04/05/24 1115 04/05/24 1119 04/05/24 1159 BP: 170/90 (!) 160/100 180/78 BP Location: Right arm Left arm Right arm Patient Position: Sitting Sitting Sitting Pulse: 56 Weight: 59 kg (130 lb) Height: 1.626 m (5' 4 ) Objective Physical Exam Allergies Clonidine, Methylprednisolone, Ohesrsl-svn-jqz reductase inhibitors, Tati inhibitors, Amlodipine, Hydralazine, Lisinopril, and Sulfamethoxazole Current Medications Current Outpatient Medications: apixaban (Eliquis) 5 mg tablet, Take 1 tablet (5 mg) by mouth 2 times a day., Disp: 180 tablet, Rfl: 3 aspirin 81 mg EC tablet, Take 1 tablet (81 mg) by mouth once daily., Disp: , Rfl: atorvastatin (Lipitor) 40 mg tablet, Take 1 tablet (40 mg) by mouth once daily., Disp: , [...] by mouth 2 times a day., Disp: 180 tablet, Rfl: 3 nitroglycerin (Nitrostat) 0.4 mg SL tablet, Place 1 tablet (0.4 mg) under the tongue every 5 minutes if needed for chest pain. Go to ER or call 911 after 3rd dose., Disp: , Rfl: Assessment/Plan 1. Accelerated hypertension Follow Up In Cardiology 2. Cerebrovascular accident (CVA), unspecified mechanism (Multi) 3. alf current use of anticoagulant therapy 4. Paroxysmal atrial fibrillation (Multi) 5. ASHD (arteriosclerotic heart disease) 6. Mixed hyperlipidemia 7. BMI 22.0-22.9, adult 8. Former smoker 9. TATI inhibitor intolerance 10. Statin intolerance Scribe Attestation By signing my name below, Anamaria Magallon LPN , Scrcecee attest that this documentation has been prepared under the direction and in the presence of Elizabeth Ramos DO. Provider Attestation - Scribe documentation All medical record entries made by the Scribe were at my direction and personally dictated by me. [place]ott reviewed the chart and agree that the record accurately reflects my personal performance of the history, physical exam, discussion and plan. [facility] Phone: 1(375) 126-708801-08-2025 Instructions* Patient Instructions* Anamaria Pichardo LPN - 04/05/2024 10:30 AM EST Please bring all medicines, vitamins, and herbal supplements with you when you come to the office. Prescriptions will not be filled unless you are compliant with your follow up appointments or have a follow up appointment scheduled as per instruction of your physician. Refills should be requested at the time of your visit. [facility] Work Phone: 1([phone]) 668-378601-07-2025 History of Present illness Narrative* Amanda Bray NP - 04/04/2024 1:40 PM EST Images from the original note were not included. Chief Complaint Patient presents with Hospital Follow-up Stroke Subjective Janelle Burt is a 83 y.o. female. History of Present Illness The patient presents today for follow-up. She is accompanied by her daughter, Lesly. She was hospitalized at [facility] from 03/06/2024 to 03/07/2024. The patient was evaluated by her owner/operator on 03/06/2024, and they noted a new visual field defect, specifically left homonymous hemianopia. She was subsequently referred to [facility] emergency department for stroke work up. The patient does have a history of atrial fibrillation diagnosed in January 2024. She was prescribed Eliquis but admits she was not taking the medication at the time of herophthalmology appointment due to cost. She was evaluated by neurology while inpatient and had an MRI of the brain completed which identified right occipital stroke. She was restarted on Eliquis and states she has been compliant with taking this. The patient states she is independent with her housework and all ADLs. She has not been driving. She continues to have visual field defect on the left but states, I seem to be able to work with it to keep doing things. The patient's daughter also mentions a seemingly unrelated concern that occurred earlier in 2023. She states the patient had an eye doctor appointment on 02/01/2024. The patient's son dropped her offfor the appointment and then picked her up afterward. She was said to be in her normal state of health when he picked her up. However, in the days following, the patient had some increased confusion.She does not recall much of what happened during those days. She looked in the mirror one day and states her body was bruised from her left face and shoulder to her calf. She is unsure if she fell orlost consciousness. She states she must have, hit something, because her left shoulder ached. Shewas evaluated in the ED on 02/05/2024 and, per family reports, had a CT scan of the brain which didnot identify stroke or any acute pathology. She was evaluation again on 02/17/2024, diagnosed with urinary traction infection, and received treatment with antibiotics. Daughter states her confusion resolved and mentation returned to baseline shortly after starting the antibiotics. The patient reports very mild memory difficulty (recalling the names of streets, etc.) but states this is chronic. She is not in therapy currently. She denies difficulty speaking, difficulty swallowing, numbness, paresthesias, or weakness. Review of Systems Constitutional: Negative for appetite change, chills, fatigue, fever and unexpected weight change. HENT: Negative for trouble swallowing and voice change. Eyes: Negative for pain. Positive for visual field defect on the left. Negative for visual change or double vision Respiratory: Negative for cough, shortness of breath and wheezing. Cardiovascular: Negative for chest pain and palpitations. Gastrointestinal: Negative for abdominal pain, blood in stool, nausea and vomiting. Musculoskeletal: Positive for arthralgias. Negative for gait problem and myalgias. Neurological: Negative for dizziness, tremors, seizures, syncope, facial asymmetry, speech difficulty, weakness, light-headedness, numbness and headaches. Positive for memory difficulty (mild) Psychiatric/Behavioral: Negative for confusion, hallucinations and suicidal ideas. The patient is not nervous/anxious. Home Medication List apixaban 5 MG tablet; Commonly known as: Eliquis aspirin 81 MG EC tablet atorvastatin 40 MG tablet; Commonly known as: Lipitor eisyjopqcw-ugijzsqpoutrr-stkkbgww 50-300-40 MG capsule; Commonly known as: Fioricet fenofibrate 54 MG tablet; Commonly known as: Tricor levothyroxine 100 MCG tablet; Commonly known as: Synthroid, Levoxyl losartan 50 MG tablet; Commonly known as: Cozaar metoprolol tartrate 25 MG tablet; Commonly known as: Lopressor Past Medical History: Diagnosis Date Atrial fibrillation (CMS/HCC) Cataract Disease of thyroid gland (CMS/HCC) Dry eyes Hypertension (CMS/HCC) Hypothyroidism (CMS/HCC) Retinal tear of left eye Past Surgical History: Procedure Laterality Date CATARACT EXTRACTION Bilateral RETINAL DETACHMENT SURGERY Left No family history on file. Social History Tobacco Use Smoking status: Former Types: Cigarettes Smokeless tobacco: Never Tobacco comments: Quit smoking > 50 years ago Substance Use Topics Alcohol use: Never Allergies: Clonidine, Methylprednisolone, Ciprofloxacin, Simvastatin, Sulfamethoxazole-trimethoprim, Tati inhibitors, Amlodipine, Hydralazine, and Sulfamethoxazole Vitals: 04/04/24 1333 BP: 122/68 Pulse: 67 SpO2: 99% Body mass index is 22.31 kg/m . weight: 130 lb Neurologic exam: Mental status and general appearance: Awake and alert with unlabored respirations. Oriented to person, place, and time. Recent and remotememory are primarily intact. Speech is clear and fluent without aphasia. Speech is non-dysarthric. Attention and concentration are normal. Fund of knowledge is appropriate for level of education. Cranial nerves: CN II: Left homonymous hemianopia. CN III, IV, : Pupils are equal, round, and reactive to light. Extraocular movements intact. No ptosis present. CN V: Facial sensation is normal. CN VII: Full and symmetric facial movement. CN VIII: Hearing is normal to finger rub bilaterally. CN IX and X: Palate elevates symmetrically. CN XI: Shoulder shrug is normal bilaterally. CN XII: Tongue is midline without atrophy or fasciculation. Motor: RUE strength deltoid , biceps , triceps , wrist extensors , wrist flexor , and splitter machine strength 5/5. LUE strength deltoid , biceps , triceps , wrist extensors , wrist flexor , and splitter machine strength 5/5. RLE strength iliopsoas, quadriceps, tibialis anterior, and plantar flexion strength 5/5. LLE strength iliopsoas, quadriceps, tibialis anterior, and plantar flexion strength 5/5. Tone and bulk are normal. Sensory: Sensation is intact to light touch throughout all four extremities. Sensation is intact to temperature in all extremities. Reflexes: RUE biceps reflex 2+ , brachioradialis reflex 2+. LUE biceps reflex 2+ , brachioradialis reflex 2+. RLE knee reflex 1+. LLE knee reflex 1+. Coordination: Qqxzeb-ae-sblh testing normal. Rapid alternating movements are normal. Gait: Steady. Review and summary of old records: Transthoracic echocardiogram complete on 03/07/2024: EF > 70%. Grade I diastolic dysfunction. Mild mitral and tricuspid regurgitation. No mention of mass, vegetation, or thrombus. CTA of the head and neck on 03/07/2024: Patent extracranial and intracranial circulation without evidence for large vessel occlusion, significant stenosis, or aneurysm. Mild to moderate plaque formation in the right carotid without significant stenosis. Moderate plaque formation in the left carotid. Short segment of around 50% stenosis of the proximal left common carotid artery without significant stenosis otherwise. Calcifications and tortuosity of the distal ICAs with mild stenosis. Overall small caliber of the vertebrobasilar circulation with small caliber digital marketing executive without distinct focal high-grade proximal stenosis of the digital marketing executive. Multilevel degenerative changes in the cervical spine. MRI of the brain without contrast on 03/06/2024: Small areas of recent appearing infarcts superimposed on larger area of chronic infarct in the right occipital region, especially within the periventricular region. Suspected mild to moderate chronic microvascular ischemia. Mild to moderate generalized volume loss. CT of the brain without contrast on 03/06/2024: Rzni-yj-fxkrfavx cerebral atrophy. Chronic ischemicwhite matter disease. Age indeterminate right occipital lobe infarct. Remote left ocular surgery. Labs on 03/07/2024: Total cholesterol 160, HDL 49, triglycerides 107, LDL 100. Hemoglobin A1c 5.4%. ECG on 03/06/2024: Sinus bradycardia with occasional supraventricular premature complexes. Left axis deviation. Pattern consistent with pulmonary disease. Incomplete right bundle-branch block. 7-day cardiac event monitor in December 2023: Baseline rhythm is normal sinus rhythm. During the monitoring, 2 episodes of atrial fibrillation with RVR were noted. No bradycardic episodes or symptoms reported by the patient. Assessment/Plan Diagnoses and all orders for this visit: Ischemic stroke (CMS/HCC) Visual field defect Hypertension, unspecified type (CMS/HCC) Janelle is an 83-year-old female. It is my impression that she had an ischemic stroke. The patient was transferred to [facility] from her ophthalmology appointment on 03/06/2024 due to new visual field defect. She was taking aspirin 81 mg daily at the time. She was also prescribed Eliquis but admits she was not taking it due to cost. MRI of the brain on 03/06/2024 revealed right occipital lobe infarct, and CTA of the head and neck identified patent extracranial and intracranial circulation without evidence for large vessel occlusion, significant stenosis, or aneurysm. LDL was 100, and hemoglobin A1c 5.4% on 03/07/2024. The patient has residual left homonymous hemianopia. She has not been driving. She was advised to start Eliquis upon discharge from the hospital and states she has done so. She denies any new signs or symptoms of stroke since hospital discharge. Mark have stroke risk factors including age > 65 years, hypertension, and atrial fibrillation. PLAN: - Continue aspirin 81 mg by mouth once daily for secondary stroke prevention - Continue statin. Goal LDL < 70 - I recommended NO DRIVING due to the visual field defect and subsequently increased risk of involvement in a MVA. The patient verbalizes understanding - I encouraged healthy diet and regular physical activity as tolerated - Avoid tobacco use and limit alcohol intake - I advised the patient to follow up closely with her primary care provider for management of bloodpressure, cholesterol levels, and blood glucose to help reduce the risk of future stroke - I reviewed signs and symptoms of stroke with the patient and advised the patient to seek emergentcare in the emergency department if she develops any new symptoms of these in the future. She verbalizes understanding Encounter for medication monitoring Atorvastatin use. PLAN: - Check labs (lipid panel and hepatic function panel) Paroxysmal atrial fibrillation (CMS/HCC) The patient has a history of atrial fibrillation, on Eliquis. I suspect this may have been causative for her stroke. PLAN: - Follow up closely with cardiology for management - I advised the patient to inquire about an alternative medication for anticoagulation (such as coumadin) if Eliquis is unaffordable Altered mental status (AMS), unspecified The patient and her daughter also describe a period of altered mental status in the patient in early to mid January 2024. The patient does not recall much from this time period but states at one point she did notice unexplained bruising on the left side of her body. She reportedly had a CT of the brain in 01/2024 which identified no concerns. She was later diagnosed with a UTI on 02/17/2024, andher mentation was said to return to baseline following antibiotic therapy. She does not recall any loss of consciousness. Unclear etiology for the patient's symptoms at this time, though they have since resolved. I would consider maybe she had metabolic encephalopathy secondary to UTI. PLAN: - Monitor clinically - I did recommended EEG to assess for seizure or epileptiform activity which may have been contributory to the patient's previous AMS. The patient and her daughter declined EEG. They understand underlying pathology may be missed without this Diagnosis and treatment options discussed in detail. All questions answered. The patient and her daughter verbalize understanding and are agreeable to the plan. Discussion in layman's terms. Follow up in the office within 2 months; sooner if needed for new or worsening symptoms. Amanda Bray NP [facility] documented in this [facility]01-07-2025 Instructions* Patient Instructions* Amanda Bray NP - 04/04/2024 1:40 PM EST - Check labs documented in this [facility]12-17-2024 Evaluation note* Diagnosis Onset Date Resolution Status Admit Date Atrial fibrillation acute Decem danny 2023 1:37pm CKD (chronic kidney disease) stage 3, GFR 30-59 ml/min acute Decemb er 2023 1:37pm CVA (cerebral vascular accident) acu te March 14, 2024 1:37pm Hypertension acute February 1:37pm Atrial fibrillation acute Decem danny 2023 10:22am CKD (chronic kidney disease) stage 3, GFR 30-59 ml/min acute Decemb er 2023 10:22am Hyperlipidemia acute February 282023 10:22am Hypertensive chronic kidney disease with stage 1 through stage 4 chronic ki acute February 10:22am Hyponatremia acute February 10:22am Hypoparathyroidism acute [facility] er 2023 10:22am [facility] Work Phone: 1(201) 979-140912-10-2024 Hospital Discharge instructions Patient Education 03/07/2024 14:42:18 Atrial Fibrillation, Brml-kb-Mmri Atrial Fibrillation Atrial fibrillation (AFib) is a type of heartbeat that is irregular or fast. If you have AFib, yourheart beats without any order. This makes it [...] Follow these instructions at home: Medicines Take kxlg-dnt-ngjqata and prescription medicines only as told by [...] in your vomit, poop (stool), or pee (urine),or bleeding that cannot stop. You have any [...] provider. Document Revised: 12/02/2022 Document Reviewed: 12/02/2022 [employer] Patient Education 2023 [employer]. 03/07/2024 14:42:15 Core Measures: Stroke (Cerebrovascular Accident) [facility], (CUSTOM) Stroke (Cerebrovascular Accident) A stroke is acute of brain tissue, and it is a neurologic emergency. A stroke can cause permanent loss of function of the central nervous system (brain). If the symptoms of a stroke end withoutcomplications in 24 hours, it is diagnosed as [...] factors for stroke, work with your health ocular care technologist to control them. High Blood Pressure: High [...] Please call [facility] at [phone] ([facility]), or [phone], ext. [phone] Diabetes: Work with your healthcare professional to keep your blood sugar under control. Check yourblood sugar and take the results to your [...] has been damaged by a fatty buildup insidethe artery wall. Discuss ways to manage this with your health care provider. Atrial Fibrillation (A Fib): In A fib, your heart does not have a normal beat. This may allow clotsto form and puts you at a greater risk for having a stroke. Work with your health care provider to control your A fib. Your doctor may order special medication that helps prevent clots from forming. High blood cholesterol or high blood fats: High cholesterol increases your risk of stroke. Exerciseregularly, but talk to your health care provider first. A diet low in fat and cholesterol can help.If you have any questions about a low fat, low cholesterol diet, you can call our Yvonne relations specialist at [phone] Ext. [phone]. The goal for total cholesterol is less than 200, and for LDL or thebad cholesterol is less than 100. Lifestyle Management: You increase your risk of stroke if you are overweight or obese, are not veryactive, or drink too much alcohol. Enjoy a diet rich in fruits and vegetables. Exercise regularly and drink alcohol in moderation or no more than two drinks a day for men and no more than one drink aday for non- women, or don't drink at all. This will help decrease your risk of stroke. Oral Contraceptives: Taking control pills or the pill can be a risk factor for stroke especially if you smoke. Discuss using the oral contraceptives and your risk of stroke with your health ocular care technologist. TREATMENT TIME IS OF THE ESSENCE! Medications to dissolve a blood clot can only be used within four and a half hours of the onset of symptoms. After that time, treatment of stroke depends on duration of symptoms, severity, and cause. Medications and diet measures may be used to address diabetes, high blood pr essure, and other risk factors. Physical therapy, speech therapy, and occupational therapy specialists will assess you and work to improve any functions impaired by the stroke. Measures will be takento prevent short and senior care complications, including aspiration pneumonia, blood clots in the leg s, bedsores, and falls. HOME CARE INSTRUCTIONS Care [...] to not run out of your medicine. Getmore while you still have a one-week supply. [...] use it at all times. Be sure youkeep your therapy appointments. Diet Certain diets may be prescribed to address high blood pressure, high cholesterol, or diabetes.Foods may need to be a special consistency [...] for more information on strokes, log onto www.[email or web address] or [email or web address] or call the [place] [employer] at . Revised 03/2018 Follow Up Care 03/06/2024 14:50:37 With:ANTONINO GUSTAFSON MD, FAM Address: [address] [place] [id number]- When:5 to 7 days Comments:Call for followup appointment to talk about switching from Eliquis to Coumadin once you are out of Eliquis With:Kamar Escobar MD, NEU Address: [address] [address]- When:2 to 4 weeks [facility] 12-10-2024 NoteDischarge Summary Admission and Discharge Information Admitting Physician [...] ER on 03/06 after being seen by owner/operator due to visual field defects. Per patient [...] Eliquis as prescribed. Patient was worried about howexpensive it was. Patient already has 3-month supply [...] EST, Stroke, Consult and Co-manage Consult to Pattern Keeper - Ordered -- 03/06/24 23:07:42 EST Physical Exam Vitals & Measurements T: 36.7 ???C(Axillary) TMIN: 36.7 ???C(Axillary) TMAX: 37.1 ???C(Oral) HR: 86(Apical) RR: 18 RR: 18BP: 149/63 SpO2: 96% HT: 167.64 cm WT: [...] q5min, PRN Follow-up With When Contact Information SJ MORA, KASH MUÑIZ Within 5 to [address] [place] [id number]- Additional Instructions: Call for followup appointment to talk about switching from Eliquis to Coumadin once you are out of Roxana Escobar MD, YVES Galvin Within 2 to [address] [address]- Additional Instructions: Patient Education Atrial Fibrillation, Omit-bs-Afsf Core Measures: Stroke (Cerebrovascular Accident) [facility], ([facility] on above:Result Comment: Electronically Signed By: Michael Worthington DO\.br\Date and Time Signed: 03/07/24 15:01 [id number] Evaluation + Plan noteExtracted from: Title:Discharge Note Author:Michael Worthington DO Date:03/07/24 [...] MD, FAM Within 5 to [address] [place] [address]- Additional Instructions: Call for followup appointment to talk about switching from Eliquis to Coumadin once you are out of Eliquis Shawn MORA, YVES Galvin Within 2 to [address] [address]- Additional Instructions: Atrial Fibrillation, Pymq-yy-Irjl Core Measures: Stroke (Cerebrovascular Accident) [facility], ([facility]) Extracted from: Title:Consult Note- Neurology Author:Nery Mace RN Date:03/07/24 ASSESSMENT: 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 There is some developing encephalomalacia that makes the stroke appear subacute to chronic, but there are still some peripheral diffusion weighted signal changes that could suggest acute on chronic ischemia. In early January she had CT images at [facility] that reportedly did not show any concerns. And she cannot quite pin down when her visual issues started. So it is hard to know how old the stroke is. Etiology either relates to arteriopathy such as RIVET MAKER occlusion on the right or her atrial fibrillation. I do not have any angiography yet. PLAN: 1. Apixaban has been started here 2. CTA of head and neck 3. Transthoracic echocardiogram pending 4. She has chronically taken aspirin 81 mg daily at home. If the CTA studies show significant atherosclerotic disease or a RIVET MAKER occlusion then I would recommend she stay [...] atrial fibrillation) - New Dx per outpatient superintendent construction, Dr Ramos - Mildly Bradycardic in the [...] Stroke Quality Measures Vital Signs Weight [facility] 12-10-2024 NoteEchocardiology Procedure Exam Date/Time Accession # Ordering Echo Transthoracic 03/07/2024 10:05 [facility] [id number] Abdulkadir Amaro DO Complete CPT code 60652 Reason for Exam (Echo Transthoracic Complete) CVA Report [facility] [address] [place] [address] Adult Echocardiogram Report Name: JANELLE BURT Study Date: 03/07/2024 09:18 AM BP: 173/67 mmHg Patient Location: [address] [place] [address] Bed(s) [facility] HR: 95 : 1940 Gender: Female Height: 65.5 in Age: 83 yrs Ethnicity: T Weight: 137 lb Reason For Study: CVA BSA: 1.7 m2 History: Hypertension, Atrial Fibrillation Ordering Physician: Abdulkadir Amaro Performed By: Ya Wyatt, [facility] Interpretation Summary The left ventricle is hyperdynamic. [...] no pleural effusion noted on this exam. [facility] No comparison study is available. MMode/2D Measurements [...] was seen at the emergency department in [place], I believe family was concern for stroke, [...] both correctly = 0 Open and close eyes/splitter machine release hand: Obeys both correctly = 0 [...] early January she had CT images at [facility] that reportedly did not show any concerns. And she cannot quite pin down when her visual issues started. So it is hard to know how old the stroke is. Etiology either relates to arteriopathy such as RIVET MAKER occlusion on the right or her atrial fibrillation. I do not haveany angiography yet. PLAN: 1. Apixaban has been started here 2. CTA of head and neck 3. Transthoracic echocardiogram pending 4. She has chronically taken aspirin 81 mg daily at home. If the CTA studies show significant atherosclerotic disease or a RIVET MAKER occlusion then I would recommend she stay [...] 1 tab(s), Oral, B (more content not included)...[facility], IncComment on above:Result Comment: Electronically Signed By: Nery Mace RN\.br\Date and Time Signed: 03/07/24 07:04 EST\.br\Electronically Co-Signed By: Abdulkadir Amaro DO\.br\Date and Time Co-Signed: 03/07/24 09:43 EST\.br\Electronically Co-Signed By: Nery Mace RN [id number] NoteConsultation Note Chief Complaint Headache, vision issues [...] was seen at the emergency department in [place], I believe family was concern for stroke, [...] both correctly = 0 Open and close eyes/splitter machine release hand: Obeys both correctly = 0 [...] early January she had CT images at [facility] that reportedly did not show any concerns. And she cannot quite pin down when her visual issues started. So it is hard to know how old the stroke is. Etiology either relates to arteriopathy such as RIVET MAKER occlusion on the right or her atrial fibrillation. I do not haveany angiography yet. PLAN: 1. Apixaban has been started here 2. CTA of head and neck 3. Transthoracic echocardiogram pending 4. She has chronically taken aspirin 81 mg daily at home. If the CTA studies show significant atherosclerotic disease or a RIVET MAKER occlusion then I would recommend she stay [...] 1 tab(s), Oral, B (more content not included)...[facility] IncComment on above:Result Comment: Electronically Signed By: Nery Mace RN\.br\Date and Time Signed: 03/07/24 07:04 EST\.br\Electronically Co-Signed By: Abdulkadir Amaro DO\.br\Date and Time Co-Signed: 03/07/24 09:43 [id number] NoteInterdisciplinary Note - PT PT Evaluation done this date. Pt. with on AM-PAC this date. No further PT needs but may benefit from outpatient OT for vision issues.[facility]12[facility] NoteHistory and Physical Chief Complaint Pt to ED for vision changes. Has had issues intermittently since january. Went to [facility] who sent over for stroke workup. both eyes affected- one was complete, other was top and bottom. denies paresthesia, WARD. glucose 89 History of Present Illness This is an 83-year-old female patient with a past medical history as outlined below including hyperlipidemia, hypertension, hypothyroidism, and recent diagnosis of A-fib; who presented to the ED on the advice of her owner/operator due to visual field deficits and concern for CVA. The patient has an unusual recent medical course. She had an outpatient workup per her superintendent construction with a Holter monitor late in December. [...] they took her to the ED in [place] due to a severe headache. Workup was [...] the left eye. She presented to her owner/operator today for evaluation of her vision and [...] 15:17:00) Lymph Auto: 25 % (03/06/24 15:17:00) [place] Auto: 10.2 % (03/06/24 15:17:00) Eos Auto: 1 % (03/06/24 15:17:00) Basophil Auto: 0.8 % (03/06/24 15:17:00) Neutro Absolute: 5.4 E9/L (03/06/24 15:17:00) Lymph Absolute: 2.2 E9/L (03/06/24 15:17:00) [place] Absolute: 0.9 E9/L (03/06/24 15:17:00) Eos Absolute: [...] 15:17:00) CO2: 29 mmol/L (more content not included)...[facility], IncComment on above:Result Comment: Electronically Signed By: Lian Baeza\.br\Date and Time Signed: 03/06/2419:19 EST\.br\Electronically Co-Signed By: [...] minimal work up. Advised to go to [facility] ED for CVA workup documented in this encounterThe [facility] Institute of St. [id number] History of Present illness Narrative* Michael Ramos, - 01/18/2024 10:40 AM EDT Subjective Janelle Burt is a 83 y.o. female Chief Complaint Follow-up 83-year-old female returns for routine follow-up and is doing very well. She is overall improved from her hospitalization last year. She was hospitalized for transient atrial fibrillation, accelerated hypertension, small non-ST elevation DE. Catheterization reviewed today, at that time revealed [...] normal. Judgment: Judgment normal. Allergies Clonidine, Methylprednisolone, Crailyv-olp-das reductase inhibitors, Tati inhibitors, Amlodipine, Hydralazine, Lisinopril, [...] my direction and personally dictated by me. Dwain reviewed the chart and agree that the record accurately reflects my personal performance of the history, physical exam, discussion and plan. documented in this encounterGrant Hospital Work Phone: 1(923) 400-979110-22-2024 Instructions* Patient Instructions* Leslie Spence LPN - [...] time of your visit. documented in this encounterGrant Hospital Work Phone: 1([phone]) 385-492809-20-2024 Evaluation note* Diagnosis Onset Date Resolution Status Admit Date CKD (chronic kidney disease) stage 3, GFR 30-59 ml/min acute 2023 10:51am Hypothyroid acute November 10:51am Rhinorrhea acute November 10:51am Impacted cerumen of both ears acute December 22, 2023 1:11pm [facility] Work Phone: 1(384) 591-815602-20-2024 History of Present illness Narrative* Michael Ramos DO - 05/18/2023 11:00 AM EST Subjective [...] this helps, follow-up in 3 months with Meera in 6 months with myself Review of [...] normal. Judgment: Judgment normal. Allergies Clonidine, Methylprednisolone, Rpkcnfh-tfg-hjr reductase inhibitors, Tati inhibitors, Amlodipine, Hydralazine, Lisinopril, [...] Scribe Attestation By signing my name below, I Anamaria HornMalick LARKIN Scribgiorgi attest that this documentation has been prepared [...] exam, discussion and plan. documented in this encounterGrant Hospital Work Phone: 1(888) 968-264902-20-2024 Instructions* Patient Instructions* Abi Veronica LPN - [...] time of your visit. documented in this encounterGrant Hospital Work Phone: 1(408) 724-525312-13-2023 Evaluation + Plan note* Assessment & Plan Note - RYANNE Neumann - 03/10/2023 1:57 PM ESTAssociated Problem(s): Chronic renal disease, stage III (CMS/HCC) Recent creatinine 1.4 Follows annually with nephrology [facility] Work Phone: 1([phone]) 689-355212-13-2023 Evaluation + Plan note* Assessment & Plan Note - RYANNE Neumann - 03/10/2023 1:57 PM ESTAssociated Problem(s): Cardiac and Vasculature January 2023 hospitalization due to jaw pain and accelerated hypertension January 28, 2023 cardiac cath with insignificant coronary artery disease (No formal report, taken from discharge summary) [facility] Work Phone: 1([phone]) 356-125312-13-2023 Evaluation + Plan note* Assessment & Plan Note - RYANNE Neumann - 03/10/2023 1:57 PM ESTAssociated Problem(s): Paroxysmal atrial fibrillation (CMS/HCC) Remote history of transient event Recurrent transient atrial fibrillation during January 2023 hospitalization Reports being symptomatic and shaking inside Denies any recurrence [facility] Work Phone: [phone]) 101-240612-13-2023 Miscellaneous Notes* Assessment & Plan Note - [...] office with recent changes documented in this encounterGrant Hospital Work Phone: [phone]) 114-736212-13-2023 Evaluation + Plan note* Assessment & Plan Note - RYANNE Neumann - 03/10/2023 1:56 PM ESTAssociated Problem(s): Accelerated hypertension Optimal in office with recent changes [facility] Work Phone: [phone]) 535-957112-13-2023 History of Present illness Narrative* RYANNE Neumann - 03/10/2023 10:30 AM EST Chief Complaint Getting used to my blood pressure Reason for Visit Patient presents to the office today for outpatient follow-up for hospital follow-up. Last evaluated in clinic by Dr. Ramos December 2022. Patient was recently hospitalized at [facility]. The patient was seen in Cardiology consult with subsequent cardiovascular management by [facility]. Hospitalization records have been reviewed. Reason for Cardiology Consultation: Jaw pain, accelerated hypertension transient atrial fibrillation. Consulting Software Computer Specialist: Dr. Ramos Cardiovascular testing: Cardiac catheterization Changes [...] is in agreement to proceed with 30-day [facility] [employer] to assess for A-fib burden. Patient reports [...] Reactions Clonidine Shortness of breath Methylprednisolone Anaphylaxis Wfuzfyp-Nzm-Feo Reductase Inhibitors Myalgia Tati Inhibitors Rash Amlodipine [...] new symptoms arise. Dr. Ramos 8 weeks Meera Avalos MSN, ELECTRIC METER INSPECTOR-JUNIOR NETWORK ADMINISTRATOR, PMHNP-[facility] Please excuse any errors in grammar or translation related to this dictation. Voice recognition software was utilized to prepare this document. documented in this [facility] Work Phone: [phone]) 407-161012-13-2023 Instructions* Patient Instructions* RYANNE Neumann - 03/10/2023 [...] Dr. Ramos 8 weeks documented in this encounterGrant Hospital Work Phone: [phone]) 240-594111-29-2023 Evaluation note* Encounter Date Diagnosis Assessment Notes Treatment Notes Treatment Clinical Notes Jan, Hypothyroidism, unspecified (ICD-10 - E03.9) [facility] Other 11-07-2023 Evaluation note* Encounter Date Diagnosis Assessment Notes Treatment Notes Treatment Clinical Notes Jan, Hypothyroidism, unspecified (ICD-10 - E03.9) Pt requests a med refill for chronic problem. Jan, CAD in [place] artery (ICD-10 - I25.10) Pt notes improvement in symptoms. Has scheduled appt with Cardiology for followup. [email or web address] Other 11-03-2023 Hospital Discharge instructions Additional Instructions DISCHARGE INSTRUCTIONS FOR CARDIAC GEOGRAPHIC INFORMATION SYSTEMS MANAGER PHONE NUMBER OF YOUR PHYSICIAN: [phone] PROCEDURE: Heart Cath The following instructions have [...] cold, numb, blue or white, call the superintendent construction immediately. 4. ACTIVITY: You are advised to [...] bottle, follow the instructions on the bottle. [facility] is not responsible for incorrect prescription information provided by the patient during their visit. Do not stop your medications without consulting your health care provider. Please take the list with you to your next doctor's appointment.[facility] Work Phone: 1([phone]) 358-303411-02-2023 Progress note Author Elsa Amin [facility] January 28, 2023 3:27pm Note Date/Time January 28, 2023 3 :27[facility] [address] [place] [address] Hospitalist Progress Note Signed Patient: Janelle Burt MR#: [id number] : 1940 Acct:[id number] Age/Sex: 82 / F Adm Date: 3 Loc: 3T Room: [address] [place] [address] Type: ADM IN Attending Dr: Elsa Amin [...] Medrol] Allergy (Verified 01/27/23 08:01) Unknown Reaction Gsjanno-HEK-WpV Reductase Inhibitor [Wstzfjj-Ncb-Kci Reductase Inhibitor] Allergy (Verified 01/27/23 08:01) Unknown [...] fibrillation. Repeat ECG 1 hour later showed jainism of sinus rhythm with first-degree AV block. Chest x-ray showed linear scarring at the left lung base. -YFH9JQ8-CUIj equals 5. Recommend anticoagulation. -BNP elevated to [...] today. Documented By: Elsa Amin MD 01/28/23 104 Signed By: <Electronically signed by Elsa Amin MD> 01/28/23 1527 [facility] Work Phone: [phone]) 128-495511-02-2023 [facility]11[facility]23 Consult note Author Sherron Ramos [facility] January 27, 2023 3:48pm Note Date/Time January 27, 2023 3 :36pm [facility] [address] [place] [address] Cardiology Consult Note Signed Patient: Janelle Burt MR#: [id number] : 1940 Acct:[id number] Age/Sex: 82 / F Adm Date: 3 Loc: 3T Room: [address] [place] [address] Type: ADM INOo Attending Dr: Elsa Amin [...] mild coronary disease by remote heart catheterization [id number] which included renal angiography with no evidence [...] make up place for her on the [employer] schedule tomorrow; if she declines we will arrange outpatient stress imaging on appropriate medical therapy. Review of Systems Review of Systems All other systems reviewed & are negative unless noted below or in HPI Cardiovascular Cardiovascular: Reports as per HPI and Reports radiating jaw, neck or arm pain [facility] Medical History (Updated 01/27/23 @ 15:48 [...] Medrol] Allergy (Verified 01/27/23 08:01) Unknown Reaction Spstcdx-PMJ-IdW Reductase Inhibitor [Nfsvrku-Suj-Ktq Reductase Inhibitor] Allergy (Verified 01/27/23 08:01) Unknown [...] x10E3/uL Lymph # (Auto) 1.6 (1.00-4.8) x10E3/uL [place] # (Auto) 0.5 (0.0-0.8) x10E3/uL Eos # [...] signed by Sherron Ramos DO> 01/27/23 1548 [facility] Work Phone: 1([phone]) 388-974211-01-2023 History and physical note Author Elsa Amin [facility] January 27, 2023 2:57pm Note Date/Time January 27, 2023 2 :57pm [facility] [address] [place] [address] Hospitalist H&P Signed Patient: Janelle Burt MR#: [id number] : 1940 Acct:[id number] Age/Sex: 82 / F Adm Date: 3 Loc: Room: [address] [place] [address] Type: ADM INOo Attending Dr: Elsa Amin [...] to sinus rhythm with first-degree AV block. VFR1AF4-MTYn equals 5. She was admitted for further observation and cardiology evaluation. Review of Systems Review of Systems All other systems reviewed & are negative unless noted below or in HPI Review of systems: Neuro: Reports numbness/tingling in extremities. Denies dizziness/lightheadedness Pulmonary: Denies dyspnea, cough, wheezing. Cardiac: Denies chest pain/pressure, edema, palpitations. GI: Denies abdominal pain, N/V, constipation and diarrhea [facility] Medical History (Updated 01/27/23 @ 11:21 [...] Medrol] Allergy (Verified 01/27/23 08:01) Unknown Reaction Zghlgff-ZDL-TfH Reductase Inhibitor [Bpvxzfl-Fhr-Mlz Reductase Inhibitor] Allergy (Verified 01/27/23 08:01) Unknown [...] % (Auto) 23.7 % (.) 01/27/23 08:12 [place] % (Auto) 7.4 % (.) 01/27/23 08:12 Eos % (Auto) 1.7 % (.) 01/27/23 08:12 Baso % (Auto) 1.0 % (.) 01/27/23 08:12 Nucleat RBC Rel Count 0.1 /100 WBC (0-0.5) 01/27/23 08:12 Neut # (Auto) 4.6 x10E3/uL (1.8-7.7) 01/27/23 08:12 Lymph # (Auto) 1.6 x10E3/uL (1.00-4.8) 01/27/23 08:12 [place] # (Auto) 0.5 x10E3/uL (0.0-0.8) 01/27/23 08:12 [...] fibrillation. Repeat ECG 1 hour later showed jainism of sinus rhythm with first-degree AV block. Chest x-ray showed linear scarring at the left lung base. -WMX7KY3-URSr equals 5. Recommend anticoagulation. -BNP elevated to [...] <Electronically signed by Elsa Amin MD> 01/27/23 6317 [facility] Work Phone: 1([phone]) 778-409610-09-2023 Evaluation note* Encounter Date Diagnosis Assessment Notes [...] PCP for lipid profile and LFTs monitoring [email or web address] Other 08-08-2023 Evaluation note* Encounter Date Diagnosis [...] adequately controlled. Oct, Other [facility]. [email or web address] Other 03-16-2023 Evaluation note* Encounter Date Diagnosis [...] supplement. We will continue to monitor PTH. [email or web address] Other 09-12-2022 Evaluation note* Encounter Date Diagnosis [...] supplement. We will continue to monitor PTH. [email or web address] Other 03-03-2022 Evaluation note* Encounter Date Diagnosis [...] primary polydipsia. She drinks plenty of fluids. [email or web address] Other Evaluation noteNo assessment information available [facility] Work Phone: Evaluation note* Diagnosis Onset Date Resolution Status Atrial fibrillation acute Back pain with radiation acu te Hypertension acute Hypothyroid acute [facility] Work Phone: Evaluation note* Diagnosis Onset Date Resolution Status Atrial fibrillation acute Back pain with radiation acu te Chest pain acute Elevated troponin acute Hypertension acute Hypothyroid acute NSTEMI (non-ST elevated myocardial infarction) acute [facility] Work Phone: Evaluation noteNo InformationNort [employer] Other Evaluation note* Diagnosis Paroxysmal atrial fibrillation (CMS/HCC)- Primary Atrial fibrillation Chest pain, unspecified type Accelerated hypertension Essential hypertension, malignant Stage 3a chronic kidney disease (CMS/HCC) BMI 22.0-22.9, adult documented in [facility] encounter [facility] Work Phone: Evaluation note* Diagnosis Paroxysmal atrial fibrillation (CMS/HCC) Atrial fibrillation Accelerated hypertension Essential hypertension, malignant Mixed hyperlipidemia Stage 3b chronic kidney disease (CMS/HCC) documented in this encounter [facility] Work Phone: Evaluation note* Diagnosis Onset Date Resolution Status Atrial fibrillation acute CKD (chronic kidney disease) stage 3, GFR 30-59 ml/min acute Hyperlipidemia acute [id number] acute Hyponatremia acute Hypoparathyroidism acute [facility] Work Phone: Evaluation note* Diagnosis Onset Date Resolution Status Hypothyroid acute [facility] Work Phone: Evaluation note* Diagnosis Paroxysmal atrial fibrillation (Multi)- Primary Atrial fibrillation Chest pain, unspecified type Accelerated hypertension Essential hypertension, malignant Stage 3a chronic kidney disease (Multi) BMI 22.0-22.9, adult Accelerated hypertension Essential hypertension, malignant ASHD (arteriosclerotic heart disease) Coronary atherosclerosis of unspecified type of vessel, united [place] or graft Paroxysmal atrial fibrillation (Multi) Atrial fibrillation Former smoker Personal history of tobacco use, presenting hazards to health Body mass index (BMI) 23.0-23.9, adult documented in this encounter [facility] Work Phone: Evaluation note* Diagnosis Homonymous hemianopia, left- Primary Cerebrovascular accident (CVA), unspecified mechanism (CMS/HCC) documented in this encounter [facility] HealthcareEvaluation note* Diagnosis Paroxysmal atrial fibrillation (Multi)- Primary Atrial fibrillation Chest pain, unspecified type Accelerated hypertension Essential hypertension, malignant Stage 3a chronic kidney disease (Multi) BMI 22.0-22.9, adult Accelerated hypertension Essential hypertension, malignant Cerebrovascular accident (CVA), unspecified mechanism (Multi) alf current use of anticoagulant therapy Paroxysmal atrial fibrillation (Multi) Atrial fibrillation ASHD (arteriosclerotic heart disease) Coronary atherosclerosis of unspecified type of vessel, united [place] or graft Mixed hyperlipidemia BMI 22.0-22.9, adult Former smoker Personal history of tobacco use, presenting hazards to health TATI inhibitor intolerance Statin intolerance documented in this encounter [facility] Work Phone: Evaluation note* Diagnosis Ischemic stroke (CMS/HCC)- Primary Visual field defect Unspecified visual field defect Hypertension, unspecified type ([facility]) Encounter for medication monitoring Encounter for therapeutic drug monitoring Paroxysmal atrial fibrillation ([facility]) Atrial fibrillation Altered mental status, unspecified altered mental status type documented in this encounter [facility] HealthcareEvaluation note* Diagnosis Paroxysmal atrial fibrillation (Multi)- Primary Atrial fibrillation Chest pain, unspecified type Accelerated hypertension Essential hypertension, malignant Stage 3a chronic kidney disease (Multi) BMI 22.0-22.9, adult Accelerated hypertension Essential hypertension, malignant documented in this encounter [facility] Work Phone: Evaluation note* Diagnosis Homonymous hemianopia, left- Primary Right posterior capsular opacification Unspecified after-cataract Dry eyes Unspecified tear film insufficiency documented in this encounter [facility] HealthcareEvaluation note* Diagnosis Paroxysmal atrial fibrillation (Multi)- Primary Atrial fibrillation Chest pain, unspecified type Accelerated hypertension Essential hypertension, malignant Stage 3a chronic kidney disease (Multi) BMI 22.0-22.9, adult ASHD (arteriosclerotic heart disease) Coronary atherosclerosis of unspecified type of vessel, united [place] or graft Paroxysmal atrial fibrillation (Multi) Atrial fibrillation Renal artery stenosis Atherosclerosis of renal artery alf current use of anticoagulant therapy Essential hypertension Unspecified essential hypertension BMI 23.0-23.9, adult Former smoker Personal history of tobacco use, presenting hazards to health documented in this encounter [facility] Work Phone: Evaluation note* Diagnosis Paroxysmal atrial fibrillation (Multi)- Primary Atrial fibrillation Chest pain, unspecified type Accelerated hypertension Essential hypertension, malignant Stage 3a chronic kidney disease (Multi) BMI 22.0-22.9, adult Essential hypertension Unspecified essential hypertension Former smoker Personal history of tobacco use, presenting hazards to health BMI 22.0-22.9, adult documented in this encounter [facility] Work Phone: Evaluation note* Diagnosis Onset Date Resolution Status Admit Date CVA (cerebral vascular accident) acu te January 03, 2025 1:05pm Metabolic encephalopathy acute January 03, 2025 1:05pm Seizure acute January 03, 2 025 1:05pm UTI (urinary tract infection) acute January 03, 2025 1:05pm [facility] Work Phone: History and physical note Author Jon Felder [facility] Note Date/Time July 23, 2024 1:4 8am [facility] [address] [place] [address] Hospitalist H&P Signed Patient: Janelle Burt MR#: [id number] : 1940 Acct:[id number] Age/Sex: 83 / F Adm Date: 5 Loc: Room: [address] [place] [address] Type: ADM IN Attending Dr: Jon Felder MD Copies to: MD Jon Oakes MD~ HPI DATE OF EXAMINATION: 07/22/24 CHIEF COMPLAINT: Fall at around 8:30 pm HISTORY OF PRESENT ILLNESS: This is a 83 y.o female with past medical hx of 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 Hx obtained from ED staff, pt's daughter atbedside, and pt's chart in the EMR. As per her daughter, pt was not feeling welltoday, around 8 pm she was in bed watching TV when she was noticed to be starring in the space, and then started feeling sick, wanted to go to the bathroom, when her daughter heard her falling. Her daughter is sure she fell andhit her head given that she was wedged in the bathroom with narrow limited spacefor her to move within. Also she noticed she had a contusion to her left earlobe. After that she rushed to the bathroom and stated that her mom was awakebut very tired and she had to help her sit on the bathroom, in the mean time shecalled the squad. As per EMS, pt was slow to respond, LKW was around 8 pm. Apparently in the ED pt was conversant, oriented to person and place and not to event, but was somewhat altered, and had some left sided weakness. CT Later on, pt developed generalized seizure, witnessed by her daughter, describedas twitchiness of her whole body with stiffness, and she almost punched her facebecause of the movements. Treated in the ED for generalized tonic-clonic seizure, was given 1 mg of ativan and loaded with Keppra, after ED contacted neurology. Pt to be admitted to the ICU for further workup and management. At baseline, pt suffered a CVA back in January 2024, since then she has been suffering with her vision, and was not able to read even though she used to loveto do so. Otherwise, she is sharp and oriented, ambulates. 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 Fracture of left foot Retina disorder, left History of left heart catheterization (LHC) Hypoparathyroidism Hypertension Hyperlipidemia Cataract Secondary hyperparathyroidism Hypothyroidism, unspecified Hypertensive chronic kidney disease with stage 1 through stage 4 chronic kidney disease, or unspecified chronic kidney disease History of falling Essential (primary) hypertension Elevated blood pressure reading Dyslipidemia CKD (chronic kidney disease) stage 4, GFR 15-29 ml/min Chronic kidney disease, stage 3 unspecified Cervical cancer CAD in united ke[place]owah artery Bronchitis, not specified as acute or chronic 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 Cataract Hypertension Surgical History History of partial hysterectomy History of appendectomy S/P partial hysterectomy Family History Father Stroke Mother Stroke Sister Breast cancer Myocardial infarction Daughter Cancer Legacy FamHx Relation: Daughter(s); Legacy FamHx Problem: Diagnosed with Cancer Father History of stroke Legacy FamHx Problem: Diagnosed with Stroke Mother History of stroke Legacy FamHx Problem: Diagnosed with Stroke Sister Cancer Legacy FamHx Problem: Diagnosed with Cancer Heart disease Social History Smoking Status: Former smoker Substance Use Type: None Meds Medications and Allergies Allergies amlodipine (From Norvasc) Allergy (Unknown, Verified 07/22/24 21:12) Unknown Reaction ciprofloxacin Allergy (Unknown, Verified 07/22/24 21:12) Comment:joint pain clonidine (From Catapres) Allergy (Unknown, Verified 07/22/24 21:12) Unknown Reaction hydralazine Allergy (Unknown, Verified 07/22/24 21:12) Unknown Reaction lisinopril Allergy (Unknown, Verified 07/22/24 21:12) Unknown Reaction methylprednisolone (From Medrol) Allergy (Unknown, Verified 07/22/24 21:12) Unknown Reaction Tutalgv-AFB-LoG Reductase Inhibitor (Jijulfs-Fry-Dph Reductase Inhibitor) Allergy (Unknown, Verified 07/22/24 21:12) Unknown Reaction Sulfa (Sulfonamide Antibiotics) Allergy (Unknown, Verified 07/22/24 21:12) Unknown Reaction Home Medications aspirin 81 mg tablet,delayed release (Neli Low Dose Aspirin) 81 mg PO DAILY 03/12/17 [History Confirmed 07/22/24] fenofibrate 54 mg tablet 54 mg PO DAILY 03/12/17 [History Confirmed 07/22/24] nitroglycerin 0.4 mg sublingual tablet 0.4 mg sublingual Q5M PRN chest pain 30 days #25 tabs 01/28/23 [Rx Confirmed 07/22/24] metoprolol tartrate 25 mg tablet 25 mg PO BID #60 tabs 01/29/23 [Rx Confirmed 07/22/24] atorvastatin 40 mg tablet 40 mg PO DAILY 03/14/24 [History Confirmed 07/22/24] levothyroxine 100 mcg tablet 100 mcg PO DAILY 03/28/24 [History Confirmed 07/22/24] apixaban 5 mg tablet (Eliquis) 5 mg PO BID #54 tabs 05/22/24 [Rx Confirmed 07/22/24] valsartan 160 mg tablet 160 mg PO DAILY 05/22/24 [History Confirmed 07/22/24] Exam Physical Exam Vital Signs: Temp Pulse Resp BP Pulse Ox O2 Del Method O2 Flow Rate 98.7 F 94 22 198/100 H 99 Nasal Cannula 2 07/22/24 21:12 07/22/24 23:46 07/22/24 23:46 07/22/24 23:46 07/22/24 23:46 07/22/24 23:46 07/22/24 23:46 Narrative: Constitutional Constitutional Exam: In acute distress and ill appearing, sedated with some tremulous movements while in the ED HEENT Exam Head Exam: normocephalic Eye Exam: No dilated or fixed pupils, pupils were reactive to light ENT Exam: mucous membranes moist Neck Exam Neck Exam: supple, no JVD, no thyromegaly, no lymphadenopathy Chest/Breast/Axilla Exam Chest Wall Exam: no tenderness Respiratory Exam Respiratory Exam: CTA bilaterally and no wheezes Cardiovascular Exam Cardiovascular exam: RR, normal S1 and S2 Abdominal Exam GI/Abdominal Exam: soft and no tenderness, no signs of acute abdomen, normoactive bowel sounds Extremities Exam Extremities Exam: No lower extremity edema, intact peripheral pulses Back/Spine/Pelvis Exam Back Exam: full ROM Skin Exam Skin Exam: intact, dry and warm Neurological Exam Neurological Exam: Sedated, able to secure her airways for now, but not following commands, neuro exam was limited Results - Hospitalist H&P Lab Results Labs: Laboratory Last Values Corrected WBC 9.8 X10E3/uL (3.8-11.6) 07/22/24 21:10 Uncorrected WBC Count 9.8 x10E3/uL (3.8-11.6) 07/22/24 21:10 RBC 4.64 x10E6/uL (3.60-5.00) 07/22/24 21:10 Hgb 14.2 g/dL (11.8-15.4) 07/22/24 21:10 POC Hgb 14.6 g/dl (12.0-17.0) 07/22/24 21:12 Hct 41.2 % (34.0-46.4) 07/22/24 21:10 POC Hct 43.0 % (38.0-51.0) 07/22/24 21:12 MCV 88.7 fl (80-100) 07/22/24 21:10 MCH 30.6 pg (24.7-34.3) 07/22/24 21:10 MCHC 34.5 g/dL (32.0-35.0) 07/22/24 21:10 RDW 13.4 % (11.9-15.3) 07/22/24 21:10 Plt Count 228 x10E3/uL (150-450) 07/22/24 21:10 MPV 7.4 fl (6.3-10.7) 07/22/24 21:10 Neut % (Auto) 75.4 % (.) 07/22/24 21:10 Lymph % (Auto) 17.6 % (.) 07/22/24 21:10 [place] % (Auto) 5.3 % (.) 07/22/24 21:10 Eos % (Auto) 0.9 % (.) 07/22/24 21:10 Baso % (Auto) 0.8 % (.) 04/26/25 21:10 Nucleat RBC Rel Count 0.1 /100 WBC (0-0.5) 07/22/24 21:10 Neut # (Auto) 7.4 x10E3/uL (1.8-7.7) 07/22/24 21:10 Lymph # (Auto) 1.7 x10E3/uL (1.00-4.8) 07/22/24 21:10 [place] # (Auto) 0.5 x10E3/uL (0.0-0.8) 07/22/24 21:10 Eos # (Auto) 0.1 x10E3/uL (0.0-0.45) 07/22/24 21:10 Baso # (Auto) 0.1 x10E3/uL (0.0-0.2) 07/22/24 21:10 Monocyte Dist Width 18.03 % (0.00-20.00) 07/22/24 21:10 PT 14.9 Seconds (9.0-12.9) H 07/22/24 21:10 INR 1.3 07/22/24 21:10 APTT 33.6 Seconds (25.1-36.5) 07/22/24 21:10 PHA Creatinine Clear 38.06 07/22/24 21:10 POC Sodium 132 mmol/L (138-146) L 07/22/24 21:12 Sodium 131 mmol/L (136-145) L 07/22/24 21:10 POC Potassium 3.7 mmol/L (3.5-4.9) 07/22/24 21:12 Potassium 3.6 mmol/L (3.5-5.1) 07/22/24 21:10 POC Chloride 97.0 mmol/L (98-109) L 07/22/24 21:12 Chloride 97 mmol/L (98-107) L 07/22/24 21:10 Carbon Dioxide 24.9 mmol/L (21.0-31.0) 07/22/24 21:10 POC Total CO2 25 mmol/L (23-29) 07/22/24 21:12 Anion Gap 12.7 mEq/L (6.0-15.0) 07/22/24 21:10 POC BUN 18 mg/dl (8-26) 07/22/24 21:12 BUN 18 mg/dL (7-25) 07/22/24 21:10 Creatinine 0.99 mg/dL (0.60-1.20) 07/22/24 21:10 POC Creatinine 1.2 mg/dl (0.6-1.3) 07/22/24 21:12 Est GFR (CKD-EPI) 56.226 mL/Min 07/22/24 21:10 Glucose 116 mg/dL (70-100) H 07/22/24 21:10 POC Whole Bld Glucose 117 mg/dl (70-105) H 07/22/24 21:12 POC Glucose 113 mg/dl 07/22/24 21:11 Calcium 9.5 mg/dL (8.6-10.3) 07/22/24 21:10 POC Ioniz Calcium [place] 1.18 mol/L (1.12-1.32) 07/22/24 21:12 Total Bilirubin 0.9 mg/dl (0.3-1.0) 07/22/24 21:10 AST 20 U/L (13-39) 07/22/24 21:10 ALT 12 U/L (7-52) 07/22/24 21:10 Alkaline Phosphatase 53 U/L (34-104) 07/22/24 21:10 Total Creatine Kinase 88 U/L (30-223) 07/22/24 21:10 Troponin I High Sens 9 ng/L (0-15) 07/22/24 21:10 Total Protein 7.0 gm/dL (6.4-8.9) 07/22/24 21:10 Albumin 4.1 gm/dL (3.5-5.7) 07/22/24 21:10 Globulin 2.9 gm/dL 07/22/24 21:10 Albumin/Globulin Ratio 1.4 07/22/24 21:10 Urine Color Light-yellow (Yellow) 07/22/24 21:55 Urine Appearance Clear (Clear) 07/22/24 21:55 Urine pH 8.0 (5.0-9.0) 07/22/24 21:55 Ur Specific [place] 1.025 (1.001-1.030) 07/22/24 21:55 Urine Protein Negative mg/dL (Negative) 07/22/24 21:55 Urine Glucose (UA) Normal mg/dL (Normal) 07/22/24 21:55 Urine Ketones Negative (Negative) 07/22/24 21:55 Urine Occult Blood Negative (Negative) 07/22/24 21:55 Urine Nitrite Negative (Negative) 07/22/24 21:55 Urine Bilirubin Negative (Negative) 07/22/24 21:55 Urine Urobilinogen Normal mg/dL (Normal) 07/22/24 21:55 Ur Leukocyte Esterase 2+ (Negative) H 07/22/24 21:55 Urine RBC 3-4 /HPF (0-4) 07/22/24 21:55 Urine WBC 20-49 /HPF (0-4) H 07/22/24 21:55 Ur Squamous Epith Cells N/A 07/22/24 21:55 Urine Bacteria 1+ /HPF (None Seen) H 07/22/24 21:55 Hyaline Casts None /LPF (0-8) 07/22/24 21:55 Assessment & Plan Assessment/Plan (1) Seizure: Plan Altered mental status, in the setting of New Onset Seizure with concern for status epilepticus UTI with hx of pseudomonas on previous Urine cultures back in January 2024 CVA is less likely Hypertensive Emergency -Admit pt to ICU with neuro checks q1 hour, and place on telemetry -Neurology service, Dr. Bridges, is already aware of the pt. Will place an orderfor EEG in am. Further recs in regards to continuous EEG or further medications as per Neurology -Lorazepam 2 mg q2 hours PRN for seizure activities -Obtain Lactic acid and Prolactin STAT in the ED -Obtain MR brain without contrast - Nicardipine drip started by ED -Pt received total of 1.5 mg Lorazepam IV in the ED. I Spoke to the ED, in the mean time, pt is able to secure her airways. If pt were to need more sedation, plan is to intubate her while in the ED. -I would hold off on giving meropenem as this may lower the threshold for seizure, will start levaquin IV to be dosed by pharmacy -I discussed with the daughter her mother's goals of care. She explained to me that her mom would not want life prolonging measures like being on a ventilator machine, but would want simple measures and to be brought back with intubation and CPR if needed . I explained to her in details what we do in case of cardiac arrest, including CPR and intubation that may eventually placing the pt on vent machine, with assessment of the length and duration of her intubation on a dailybasis. She opted for full code for now. I will update the chart for now. And I will make sure to update her if anything happens overnight. I answered all her questions and addressed her concerns. IP vs OBS Justification Based on differential dx, clinical care plan, and risk of adverse events, if untreated, in my clinical judgement this patient requires an acute care setting as: INPATIENT because of an expectation of an over 2 midnight stay. Estimated length of stay (# of days): 4 Time Spent With Patient (min): 75 Documented By: Jon Felder MD 07/22/24 1147 Signed By: <Electronically signed by Jon Felder MD> 07/23/24 0140 [facility] Work Phone: History general Narrative - Reported* Type Description Date Medical History hyperlipidemia Medical History hypertension Medical History cervical cancer Surgical History partial hysterectomy Surgical History appendectomy Surgical History cataract Hospitalization History SEE ABOVE [email or web address] Other [employer] general Narrative - Reported* Type Description Date Medical History hyperlipidemia Medical History hypertension Medical History cervical cancer Surgical History partial hysterectomy Surgical History appendectomy Surgical History cataract Surgical History TORN RETINA IN LEFT EYE Hospitalization History SEE ABOVE [email or web address] Other [employer] general Narrative - Reported* Type Description Date Medical History hyperlipidemia Medical History hypertension Medical History cervical cancer Surgical History partial hysterectomy Surgical History appendectomy Surgical History cataract Surgical History TORN RETINA IN LEFT EYE Surgical History Heart Cath 01/2023 Hospitalization History SEE ABOVE Hospitalization History [facility] 01/2023 [email or web address] Other History of Present illness Narrative* The [...] sporadically. Blood pressure control has been good. [facility] [address] DO Work Phone: Hospital course Narrative No data available for this section [facility] Progress note No data available for this section [facility] Reason for referral (narrative)* Consultation (Routine) - Authorized Specialty Diagnoses / Procedures Referred By Contac t Referred To Contact Cardiology Diagnoses Paroxysmal atrial fibrillation (CMS/HCC) Procedures Follow Up In Cardiology Meera Avalos ELECTRIC METER INSPECTOR-JUNIOR NETWORK ADMINISTRATOR [address] [place] [address] Michael Ramos, DO [address] [place] [address] Referral ID Status Reason Start Date Expiration Date V isits Requested Visits Authorized [id number] Authorized 03/10/2023 03/09/2024 1 1 Electronically signed by Meera Avalos ELECTRIC METER INSPECTOR-JUNIOR NETWORK ADMINISTRATOR at 03/10/2023 10:52 AM EST * Cardiovascular (Routine) - Pending Review Specialty Diagnoses / Procedures Referred By Contac t Referred To Contact Cardiology Diagnoses Paroxysmal atrial fibrillation (CMS/HCC) Procedures Holter Or Event Barrel Inspector Tight Meera Avalos ELECTRIC METER INSPECTOR-JUNIOR NETWORK ADMINISTRATOR [address] [place] [address] Referral ID Status Reason Start Date Expiration Date V isits Requested Visits Authorized [id number] Pending Review 03/10/2023 03/09/2024 1 1 Electronically signed by Meera Avalos ELECTRIC METER INSPECTOR-JUNIOR NETWORK ADMINISTRATOR at 03/10/2023 10:52 AM EST [facility] Work Phone: Recwac for referral (narrative)* Consultation (Routine) - Authorized Specialty Diagnoses / Procedures Referred By Contac t Referred To Contact Cardiology Diagnoses Paroxysmal atrial fibrillation (CMS/HCC) Procedures Follow Up In Cardiology Michael Ramos, DO [address] [place] [address] Meera Avalos ELECTRIC METER INSPECTOR-JUNIOR NETWORK ADMINISTRATOR [address] [place] [address] Referral ID Status Reason Start Date Expiration Date V isits Requested Visits Authorized [id number] Authorized 05/18/2023 05/17/2024 1 1 [facility] Work Phone: Reason for referral (narrative)No reason for referral information [facility] Work Phone: Chief Complaint JANELLE [...] sister has been taking care of her [employer]. She has underlying accelerated hypertension, known chronic [...] sister has been taking care of her [employer]. She has underlying accelerated hypertension, known chronic [...] status since last office evaluation. Family History Unknown Family Member Name Dates Details Family [...] disease) stage 3, GFR 30-59 ml/min Hyperlipidemia [id number] Hyponatremia Hypoparathyroidism Chief Complaint routine Reason for [...] of both ears December 22, 2023 1:11pm Chief Complaint Admit Date Amb Documentation March 08, 2024 9:54am [facility] [place] up/ stroke March 14 1:37pm RENAL 6 MONTH F/U March 28, 2024 10:22am 2 month f/u-HIGH RISK May 22 1:28pm Reason for Visit Admit Date Atrial fibrillation March 14, 2024 1:37pm CKD (chronic kidney disease) stage 3, GF R 30-59 ml/min March 14, 2024 1:37pm CVA (cerebral vascular accident) Decembe r 2023 1:37pm Hypertension March 14, 2024 1:37pm Atrial fibrillation March 28, 2024 10:22am CKD (chronic kidney disease) stage 3, GF R 30-59 ml/min March 28, 2024 10:22am Hyperlipidemia March 28, 2024 10:22am Hypertensive chronic kidney disease with stage 1 through stage 4 chronic ki March 28, 2024 10:22am Hyponatremia March 28, 2024 10:22am Hypoparathyroidism March 28, 2024 10:22am Chief Complaint Admit Date 2 month f/u-HIGH RISK May 22 1:28pm stroke like symptoms July 22, 2024 11 :31pm Reason for Visit Admit Date Atrial fibrillation May 22, 2024 1:28pm CKD (chronic kidney disease) stage 3, GF R 30-59 ml/min May 22, 2024 1:28pm CVA (cerebral vascular accident) uar y 2024 1:28pm Hypertension May 22, 2024 1:28pm Seizure July 22, 2024 11: 31pm Chief Complaint Admit Date 2 month f/u-HIGH RISK May 22 1:28pm stroke like symptoms July 22, 2024 11 :31pm stroke like symptoms July 23, 2024 12 :14pm stroke like symptoms July 24, 2024 11 :42am stroke like symptoms July 24, 2024 1: 07pm Reason for Visit Admit Date Atrial fibrillation May 22, 2024 1:28pm CKD (chronic kidney disease) stage 3, GF R 30-59 ml/min May 22, 2024 1:28pm CVA (cerebral vascular accident) 2024 1:28pm Hypertension May 22, 2024 1:28pm Accelerated hypertension July 22 11:31pm Altered mental status July 22, 2024 1 1:31pm Atrial fibrillation July 22, 2024 11: 31pm CKD (chronic kidney disease) stage 3, GF R 30-59 ml/min July 22, 2024 11:31pm Counseling regarding advance care planning and goals of care July 22, 2024 11:31pm History of stroke July 22, 2024 11: 31pm Hyponatremia July 22, 2024 11: 31pm Hypothyroid July 22, 2024 11: 31pm Seizure July 22, 2024 11: 31pm UTI (urinary tract infection) June 11:31pm Chief Complaint Admit Date 2 month f/u-HIGH RISK May 22 1:28pm stroke like symptoms July 22, 2024 11 :31pm stroke like symptoms July 23, 2024 12 :14pm stroke like symptoms July 24, 2024 11 :42am stroke like symptoms July 24, 2024 1: 07pm seizure July 25, 2024 6:0 1pm seizure July 26, 2024 11: 04am Reason for Visit Admit Date Atrial fibrillation May 22, 2024 1:28pm CKD (chronic kidney disease) stage 3, GF R 30-59 ml/min May 22, 2024 1:28pm CVA (cerebral vascular accident) 2024 1:28pm Hypertension May 22, 2024 1:28pm Accelerated hypertension July 22 11:31pm Atrial fibrillation July 22, 2024 11: 31pm CKD (chronic kidney disease) stage 3, GF R 30-59 ml/min July 22, 2024 11:31pm Counseling regarding advance care planning and goals of care July 22, 2024 11:31pm History of stroke July 22, 2024 11: 31pm Hyponatremia July 22, 2024 11: 31pm Hypothyroid July 22, 2024 11: 31pm Seizure July 22, 2024 11: 31pm UTI (urinary tract infection) June 11:31pm Altered mental status July 22, 2024 1 1:31pm Accelerated hypertension July 25 6:01pm History of stroke July 25, 2024 6:0 1pm Hyponatremia July 25, 2024 6:0 1pm Impaired mobility and activities of ila y living July 25, 2024 6:01pm Seizure July 25, 2024 6:0 1pm UTI (urinary tract infection) June 6:01pm Altered mental status July 25, 2024 6 :01pm Chief Complaint Admit Date 2 month f/u-HIGH RISK May 22 1:28pm stroke like symptoms July 22, 2024 11 :31pm stroke like symptoms July 23, 2024 12 :14pm stroke like symptoms July 24, 2024 11 :42am stroke like symptoms July 24, 2024 1: 07pm seizure July 25, 2024 6:0 1pm seizure July 26, 2024 11: 04am seizure August 02, 2024 3:16pm Amb Documentation August 03, 2024 8:49am [facility] f/u-HIGH RISK August 07, 2024 1:49p m Reason for Visit Admit Date Atrial fibrillation May 22, 2024 1:28pm CKD (chronic kidney disease) stage 3, GF R 30-59 ml/min May 22, 2024 1:28pm CVA (cerebral vascular accident) ua y 2024 1:28pm Hypertension May 22, 2024 1:28pm Accelerated hypertension July 22 11:31pm Atrial fibrillation July 22, 2024 11: 31pm CKD (chronic kidney disease) stage 3, GF R 30-59 ml/min July 22, 2024 11:31pm Counseling regarding advance care planning and goals of care July 22, 2024 11:31pm History of stroke July 22, 2024 11: 31pm Hyponatremia July 22, 2024 11: 31pm Hypothyroid July 22, 2024 11: 31pm Seizure July 22, 2024 11: 31pm UTI (urinary tract infection) June 11:31pm Altered mental status July 22, 2024 1 1:31pm Accelerated hypertension July 25 6:01pm History of stroke July 25, 2024 6:0 1pm Hyponatremia July 25, 2024 6:0 1pm Impaired mobility and activities of ila y living July 25, 2024 6:01pm Seizure July 25, 2024 6:0 1pm UTI (urinary tract infection) June 6:01pm Altered mental status July 25, 2024 6 :01pm Seizure August 07, 2024 1:49p m Chief Complaint Admit Date stroke like symptoms July 22, 2024 11 :31pm stroke like symptoms July 23, 2024 12 :14pm stroke like symptoms July 24, 2024 11 :42am stroke like symptoms July 24, 2024 1: 07pm seizure July 25, 2024 6:0 1pm seizure July 26, 2024 11: 04am seizure August 02, 2024 3:16pm Amb Documentation August 03, 2024 8:49am [facility] f/u-HIGH RISK August 07, 2024 1:49p m Amb Documentation August 16, 2024 9:04a m Amb Documentation August 16, 2024 9:08a m [facility] f/u-HIGH RISK August 29, 2024 2:19 pm Reason for Visit Admit Date Accelerated hypertension July 22 11:31pm Atrial fibrillation July 22, 2024 11: 31pm CKD (chronic kidney disease) stage 3, GF R 30-59 ml/min July 22, 2024 11:31pm Counseling regarding advance care planni ng and goals of care July 22, 2024 11:31pm Hyponatremia July 22, 2024 11: 31pm Hypothyroid July 22, 2024 11: 31pm Seizure July 22, 2024 11: 31pm UTI (urinary tract infection) June 11:31pm Altered mental status July 22, 2024 1 1:31pm History of stroke July 22, 2024 11: 31pm Accelerated hypertension July 25 6:01pm Hyponatremia July 25, 2024 6:0 1pm Altered mental status July 25, 2024 6 :01pm UTI (urinary tract infection) June 6:01pm History of stroke July 25, 2024 6:0 1pm Impaired mobility and activities of ila y living July 25, 2024 6:01pm Seizure July 25, 2024 6:0 1pm Accelerated hypertension August 07, 2024 1:49pm CVA (cerebral vascular accident) July 1:49pm Seizure August 07, 2024 1:49p m UTI (urinary tract infection) August 07, 2024 1:49pm Vitreous hemorrhage, right eye August 07, 2024 1:49pm Reason for Visit Admit Date Accelerated hypertension July 22 11:31pm Atrial fibrillation July 22, 2024 11: 31pm CKD (chronic kidney disease) stage 3, GF R 30-59 ml/min July 22, 2024 11:31pm Counseling regarding advance care planni ng and goals of care July 22, 2024 11:31pm Hyponatremia July 22, 2024 11: 31pm Hypothyroid July 22, 2024 11: 31pm Seizure July 22, 2024 11: 31pm UTI (urinary tract infection) June 11:31pm Altered mental status July 22, 2024 1 1:31pm History of stroke July 22, 2024 11: 31pm Accelerated hypertension July 25 6:01pm Hyponatremia July 25, 2024 6:0 1pm Altered mental status July 25, 2024 6 :01pm UTI (urinary tract infection) June 6:01pm History of stroke July 25, 2024 6:0 1pm Impaired mobility and activities of ila y living July 25, 2024 6:01pm Seizure July 25, 2024 6:0 1pm Accelerated hypertension August 07, 2024 1:49pm CVA (cerebral vascular accident) July 1:49pm Seizure August 07, 2024 1:49p m UTI (urinary tract infection) August 07, 2024 1:49pm Vitreous hemorrhage, right eye August 07, 2024 1:49pm CVA (cerebral vascular accident) August 2:19pm Hypertension August 29, 2024 2:19p m Left leg pain August 29, 2024 2:19p m Chief Complaint Admit Date stroke like symptoms July 22, 2024 11 :31pm stroke like symptoms July 23, 2024 12 :14pm stroke like symptoms July 24, 2024 11 :42am stroke like symptoms July 24, 2024 1: 07pm seizure July 25, 2024 6:0 1pm seizure July 26, 2024 11: 04am seizure August 02, 2024 3:16pm Amb Documentation August 03, 2024 8:49am [facility] f/u-HIGH RISK August 07, 2024 1:49p m Amb Documentation August 16, 2024 9:04a m Amb Documentation August 16, 2024 9:08a m [facility] f/u-HIGH RISK August 29, 2024 2:19 pm wellness September 25, 2024 2:31 pm Reason for Visit Admit Date Accelerated hypertension July 22 11:31pm Atrial fibrillation July 22, 2024 11: 31pm CKD (chronic kidney disease) stage 3, GF R 30-59 ml/min July 22, 2024 11:31pm Counseling regarding advance care planni ng and goals of care July 22, 2024 11:31pm Hyponatremia July 22, 2024 11: 31pm Hypothyroid July 22, 2024 11: 31pm Seizure July 22, 2024 11: 31pm UTI (urinary tract infection) June 11:31pm Altered mental status July 22, 2024 1 1:31pm History of stroke July 22, 2024 11: 31pm Accelerated hypertension July 25 6:01pm Hyponatremia July 25, 2024 6:0 1pm Altered mental status July 25, 2024 6 :01pm UTI (urinary tract infection) June 6:01pm History of stroke July 25, 2024 6:0 1pm Impaired mobility and activities of ila y living July 25, 2024 6:01pm Seizure July 25, 2024 6:0 1pm Accelerated hypertension August 07, 2024 1:49pm CVA (cerebral vascular accident) July 1:49pm Seizure August 07, 2024 1:49p m UTI (urinary tract infection) August 07, 2024 1:49pm Vitreous hemorrhage, right eye August 07, 2024 1:49pm CVA (cerebral vascular accident) August 2:19pm Hypertension August 29, 2024 2:19p m Left leg pain August 29, 2024 2:19p m CVA (cerebral vascular accident) September 202024 10:35am Metabolic encephalopathy September 20, 2024 10:35am Seizure September 20, 2024 10:3 5am UTI (urinary tract infection) September 20, 2024 10:35am Chief Complaint Admit Date Follow up January 03, 2025 1: 05pm Reason for Visit Admit Date CVA (cerebral vascular accident) January 03, 2025 1:05pm Metabolic encephalopathy January 03 1:05pm Seizure January 03, 2025 1: 05pm UTI (urinary tract infection) December 1:05pm Advance Directives Advance Directive Response Recorded Date/ Time Advance Directives No February 7:44pm Advance Directive Response Recorded Date/ Time Advance Directives No February 6:44pm Advance Directive Response Recorded Date/ Time Advance Directives No February 9:31am Advance Directive Response Recorded Date/ Time Advance Directives No February 10:31am Advance Directive Response Recorded Date/ Time Advance Directives No August 24 9:10am Summary Purpose Additional Source Comments REASON FOR VISIT (unrecogniz ed section and content) Reason Comments Hospital Follow-up [facility] 01/28 Specialty Diagnoses / Procedures Referred By Contac t Referred To Contact Cardiology Diagnoses Chest pain, unspecified type Procedures Follow Up In Cardiology Michael Ramos, DO [facility] [address], [address] [address] Michael Ramos, DO [facility] [address], [address] [address] Referral ID Status Reason Start Date Expiration Date V isits Requested Visits Authorized [id number] Authorized 01/28/2023 01/28/2024 1 1 Reason Comments Follow-up Never had HANNA comple chacho. Specialty Diagnoses / Procedures Referred By Contac t Referred To Contact Cardiology Diagnoses Paroxysmal atrial fibrillation (CMS/HCC) Procedures Follow Up In Cardiology Meera Avalos, ELECTRIC METER INSPECTOR-JUNIOR NETWORK ADMINISTRATOR [facility] [address], [address] [address] Michael Ramos, DO [facility], [address] [address] Referral ID Status Reason Start Date Expiration Date V isits Requested Visits Authorized [id number] Authorized 03/10/2023 03/09/2024 1 1 Reason Comments Follow-up 1 year Specialty Diagnoses / Procedures Referred By Contac t Referred To Contact Cardiology Diagnoses Accelerated hypertension Procedures Follow Up In Cardiology Michael Ramos DO Phone: tel: fax: Michael Ramos DO Phone: tel: fax: Referral ID Status Reason Start Date Expiration Date V isits Requested Visits Authorized [id number] Authorized 01/14/2023 01/14/2024 1 1 Reason Comments Decreased Visual Acuity Reason Comments Follow-up 10 w bp Blood Pressure Check Specialty Diagnoses / Procedures Referred By Contac t Referred To Contact Cardiology Diagnoses Accelerated hypertension Procedures Follow Up In Cardiology RichardMichael, DO [facility] [address], [address] [address] Phone: tel: fax: Michael Ramos, DO [facility] [address], [address] [address] Phone: tel: fax: Referral ID Status Reason Start Date Expiration Date V isits Requested Visits Authorized [id number] Authorized 01/18/2024 01/17/2025 1 1 Reason Comments Hospital Follow-up Stroke Reason Comments Blood Pressure Check Specialty Diagnoses / Procedures Referred By Contac t Referred To Contact Cardiology Diagnoses Accelerated hypertension Procedures Follow Up In Cardiology Michael Ramos, DO [facility] [address], [address] [address] Phone: tel: fax: Michael Ramos, DO [facility] [address], [address] [address] Phone: tel: fax: Referral ID Status Reason Start Date Expiration Date V isits Requested Visits Authorized [id number] Authorized 04/05/2024 04/05/2025 1 1 Reason Comments Loss of Vision Reason Comments Follow-up 8 month arterioscler otic heart diease Specialty Diagnoses / Procedures Referred By Contac t Referred To Contact Cardiology Diagnoses ASHD (arteriosclerotic heart disease) Procedures Follow Up In Cardiology Michael Ramos, DO [facility] [address], [address] [address] Phone: tel: fax: Michael Ramos, DO [facility] [address], [address] [address] Phone: tel: fax: Referral ID Status Reason Start Date Expiration Date V isits Requested Visits Authorized [id number] Authorized 01/18/2024 01/17/2025 1 1 Reason Comments Follow-up 8 week BP check Specialty Diagnoses / Procedures Referred By Contac t Referred To Contact Cardiology Diagnoses Essential hypertension Procedures Follow Up In Cardiology Michael Ramos, DO [facility] [address], [address] [address] Phone: tel: fax: Michael Ramos, [facility], [address] [place] [address] Phone: tel: fax: Referral ID Status Reason Start Date Expiration Date V isits Requested Visits Authorized [id number] Authorized 09/27/2024 09/27/2025 1 1 Care Teams (unrecognized sec tion and content) Team Status: Active Member Role Status Dates Antonino Gustafson MD Primary Care Provider Active Team Status: Inactive Member Role Status Dates Antonino Gustafson MD Primary Care Provider Active Start: January 03, 2025 End: January 03, 2025 Nancie Leigh DO Attending Provider Active Sta rt: January 03, 2025 End: January 03, 2025 Team Status: Active Member Role Status Dates Antonino Gustafson MD Primary Care Provider Active Team Status: Active Member Role Status Dates Antonino Gustafson MD Primary Care Provider Active Start: June 29, 2024 Amanda Bray , ELECTRIC METER INSPECTOR-PERSONAL COMPANION-C Attending Provider Active Start: June 29, 2024 Team Status: Inactive Member Role Status Dates Antonino Gustafson MD Primary Care Provider Active Start: July 22, 2024 End: July 25, 2024 Asad Mcnally Jr, MD Emergency Provider Active Start: July 22, 2024 End: July 25, 2024 Jon Felder MD Admit Provider Active Start: Felicia regalado 2024 End: July 25, 2024 Jovani Sibley MD Attending Provider Active Star t: July 22, 2024 End: July 25, 2024 Selena Ch Other Provider Active Start: July 22, 2024 End: July 25, 2024 Dani Lund , PhD Other Provider Active S tart: July 22, 2024 End: July 25, 2024 Nancie Leigh DO Other Provider Active Start: July 22, 2024 End: July 25, 2024 Kamar Escobar MD Other Provider Active Start : July 22, 2024 End: July 25, 2024 Guido Bridges DO Other Provider Active Start: July 22, 2024 End: July 25, 2024 Abdulkadir Amaro , Other Provider Active Start: July 22, 2024 End: July 25, 2024 Rochelle Greene APRN Other Provider Active St art: July 22, 2024 End: July 25, 2024 DAVI Andujar Other Provider Active Sta rt: July 22, 2024 End: July 25, 2024 Amanda Bray , ELECTRIC METER INSPECTOR-PERSONAL COMPANION-C Other Provider Active Start: July 22, 2024 End: July 25, 2024 Sylvie Florez DO Other Provider Active Sta rt: July 22, 2024 End: July 25, 2024 Jenny Wilson MD Other Provider Active Start: Ap ril 2024 End: July 25, 2024 Jhon Abreu MD Other Provider Active Start: A pril 2024 End: July 25, 2024 Enedina Cain APRN Other Provider Active St art: July 22, 2024 End: July 25, 2024 Shawn Merchant Jr, DO Other Provider Active S tart: July 22, 2024 End: July 25, 2024 Dev Jacobsen MD Other Provider Active Start: July 22, 2024 End: July 25, 2024 Team Status: Active Member Role Status Dates Antonino Gustafson MD Primary Care Provider Active Start: July 23, 2024 Asad Mcnally Jr, MD Emergency Provider Active Start: July 23, 2024 Jon Felder MD Admit Provider Active Start: A pril 2024 Jhony Davis MD Other Provider Active Start: July 23, 2024 Selena Ch Other Provider Active Start: July 23, 2024 Dani Lund PhD Other Provider Active S tart: July 23, 2024 Nancie Leigh , Other Provider Active Start: July 23, 2024 Kamar Escobar MD Other Provider Active Start : July 23, 2024 Guido Bridges DO Other Provider Active Start: July 23, 2024 Abdulkadir Amaro DO Other Provider Active Start: July 23, 2024 Rochelle Greene APRN Other Provider Active St art: July 23, 2024 DAVI Andujar Other Provider Active Sta rt: July 23, 2024 Amanda Bray , ELECTRIC METER INSPECTOR-PERSONAL COMPANION-C Other Provider Active Start: July 23, 2024 Sanam Barrientos ELECTRIC METER INSPECTOR ACNP-BC Other Provider Active Start: July 23, 2024 Guido Torres MD Other Provider Active Start: July 23, 2024 Karan Matias MD Other Provider Active St art: July 23, 2024 Abdulkadir Aguilar MD Other Provider Active Start: A pril 2024 Ferny Barksdale , DO Other Provider Active Start: July 23, 2024 Amari Bar , Other Provider Active Start: July 23, 2024 Samra Andrade MD Attending Provider, Other Provider Active Start: July 23, 2024 Angel Chiu MD Other Provider Active Start: July 23, 2024 Hayder Santiago MD Other Provider Active Start: A pril 2024 Aneudy Perez MD Other Provider Active Start: July 23, 2024 Team Status: Active Member Role Status Dates Antonino Gustafson MD Primary Care Provider Active Start: July 24, 2024 Asad Mcnally Jr, MD Emergency Provider Active Start: July 24, 2024 Jon Felder MD Admit Provider Active Start: A pril 2024 Selena Ch Other Provider Active Start: July 24, 2024 Dani Lund , PhD Other Provider Active S tart: July 24, 2024 Nancie Leigh , Other Provider Active Start: July 24, 2024 Kamar Escobar MD Other Provider Active Start : July 24, 2024 Guido Bridges DO Other Provider Active Start: July 24, 2024 Abdulkadir Amaro DO Other Provider Active Start: July 24, 2024 Rochelle Greene APRN Other Provider Active St art: July 24, 2024 DAVI Andujar Other Provider Active Sta rt: July 24, 2024 Amanda Bray , ELECTRIC METER INSPECTOR-PERSONAL COMPANION-C Other Provider Active Start: July 24, 2024 Sanam Barrientos ELECTRIC METER INSPECTOR ACNP-BC Other Provider Active Start: July 24, 2024 Guido Torres MD Other Provider Active Start: July 24, 2024 Karan Matias MD Other Provider Active St art: July 24, 2024 Abdulkadir Aguilar MD Other Provider Active Start: A pril 2024 Ferny Barksdale , DO Other Provider Active Start: July 24, 2024 Amari Bar , Other Provider Active Start: July 24, 2024 Samra Andrade MD Other Provider Active Start: A pril 2024 Angel Chiu MD Other Provider Active Start: July 24, 2024 Hayder Santiago MD Other Provider Active Start: A pri 2024 Aneudy Perez MD Other Provider Active Start: July 24, 2024 Jovani Sibley MD Other Provider Active Start: A pril 2024 Jenny Wilson MD Other Provider Active Start: Ap [facility] 2024 Jhon Abreu MD Other Provider Active Start: A pril 2024 Enedina Cain APRN Other Provider Active St art: July 24, 2024 Shawn Merchant Jr, DO Other Provider Active S tart: July 24, 2024 Dev Jacobsen MD Other Provider Active Start: July 24, 2024 Sylvie Florez , Attending Arlin r, Other Provider Active Start: July 24, 2024 Team Status: Active Member Role Status Dates Antonino Gustafson MD Primary Care Provider Active Start: July 24, 2024 Asad Mcnally Jr, MD Emergency Provider Active Start: July 24, 2024 Jon Felder MD Admit Provider Active Start: A pri2024 Selena Ch Other Provider Active Start: July 24, 2024 Dani Lund , PhD Other Provider Active S tart: July 24, 2024 Nancie Leigh DO Other Provider Active Start: July 24, 2024 Kamar Escobar MD Other Provider Active Start : July 24, 2024 Guido Bridges DO Other Provider Active Start: July 24, 2024 Abdulkadir Amaro , Other Provider Active Start: July 24, 2024 Rochelle Greene APRN Other Provider Active St art: July 24, 2024 Marina Burt , PIPO-C Other Provider Active Sta rt: July 24, 2024 Amanda Bray APRN-PERSONAL COMPANION-C Other Provider Active Start: July 24, 2024 Sanam Barrientos APRN ACNP-BC Other Provider Active Start: July 24, 2024 Guido Torres MD Other Provider Active Start: July 24, 2024 Karan Matias MD Other Provider Active St art: July 24, 2024 Abdulkadir Aguilar MD Other Provider Active Start: A pril 2024 Ferny Barksdale , Other Provider Active Start: July 24, 2024 Amari Bar , Other Provider Active Start: July 24, 2024 Samra Andrade MD Other Provider Active Start: A pril 2024 Angel Chiu MD Other Provider Active Start: July 24, 2024 Hayder Santiago MD Other Provider Active Start: A pril 2024 Aneudy Perez MD Other Provider Active Start: July 24, 2024 Jovani Sibley MD Other Provider Active Start: A pri 2024 Jenny Wilson MD Other Provider Active Start: Ap [facility] 2024 Jhon Abreu MD Attending Provider, Other Provider Active Start: July 24, 2024 Enedina Cain APRN Other Provider Active St art: July 24, 2024 Shawn Merchant Jr, DO Other Provider Active S tart: July 24, 2024 Dev Jacobsen MD Other Provider Active Start: July 24, 2024 Sylvie Florez DO Other Provider Active Sta rt: July 24, 2024 Team Status: Inactive Member Role Status Dates Antonino Gustafson MD Primary Care Provider Active Start: July 25, 2024 End: August 02, 2024 Dev Jacobsen MD Admit Provid er, Attending Provider Active Start: July 25, 2024 End: August 02, 2024 Lucía Cordoba RN Other Provider Active Star t: July 25, 2024 End: August 02, 2024 Nancy Etienne RN Other Provider Active Start : July 25, 2024 End: August 02, 2024 Yolanda Fong , LILIANE Other Provider Active Star t: July 25, 2024 End: August 02, 2024 Rachel Maldonado RN Other Provider Active Start: A pril 2024 End: August 02, 2024 Cleo Mcfadden RN Other Provider Active Start: Ap ril 2024 End: August 02, 2024 Neeru Abreu RN Other Provider Active Start: A pril 2024 End: August 02, 2024 Jhony Davis MD Other Provider Active Start: July 25, 2024 End: August 02, 2024 Ada Marcano DO Other Provider Active Start : July 25, 2024 End: August 02, 2024 Robin Jenkins MD Other Provider Active Start : July 25, 2024 End: August 02, 2024 Duane Hunter DO Other Provider Active Start: July 25, 2024 End: August 02, 2024 Jerome Amaya MD Other Provider Active Start: July 25, 2024 End: August 02, 2024 Gloria Deleon MD Other Provider Active Start : July 25, 2024 End: August 02, 2024 Stu Kulkarni DO Other Provider Active St art: July 25, 2024 End: August 02, 2024 Steve Baez MD Other Provider Active Start: A pri2024 End: August 02, 2024 Kayla Lacy APRN Other Provider Active Start: July 25, 2024 End: August 02, 2024 Zita Day MD Other Provider Active Start: July 25, 2024 End: August 02, 2024 Joe Ace MD Other Provider Active Start: A pril 2024 End: August 02, 2024 Elsa Amin MD Other Provider Active Start: July 25, 2024 End: August 02, 2024 Endy Blancas MD Other Provider Active Start: July 25, 2024 End: August 02, 2024 Stu Alegria DO Other Provider Active Start: July 25, 2024 End: August 02, 2024 Andreina Lopez MD Other Provider Active Start: Ap ril 2024 End: August 02, 2024 Bimal Green MD Other Provider Active Start: Apr il 2024 End: August 02, 2024 Ivette Case , PIPO-C Other Provider Active St art: July 25, 2024 End: August 02, 2024 Jose Cochran APRN Other Provider Active Star t: July 25, 2024 End: August 02, 2024 Curly Smalls MD Other Provider Active Start: July 25, 2024 End: August 02, 2024 Yousuf Gracia MD Other Provider Active Start: Ap ril 2024 End: August 02, 2024 Jaxson Weller MD Other Provider Active Start: Apr il 2024 End: August 02, 2024 Zora Carey MD Other Provider Active Star t: July 25, 2024 End: August 02, 2024 Lino Lala MD Other Provider Active Start: A pril 2024 End: August 02, 2024 Michelle Stevens , DO Other Provider Active Start: Ap [facility] 2024 End: August 02, 2024 Maverick Lopez DO Other Provider Active Start : July 25, 2024 End: August 02, 2024 Luz Marina Gonzalez APRN Other Provider Active Start: July 25, 2024 End: August 02, 2024 Chico Aragon , Other Provider Active Start: July 25, 2024 End: August 02, 2024 Tamica Brown MD Other Provider Active Sta rt: July 25, 2024 End: August 02, 2024 Darlyn Avalos APRN Other Provider Active Start : July 25, 2024 End: August 02, 2024 Suzi Russo APRN Other Provider Active St art: July 25, 2024 End: August 02, 2024 Martín Marrufo MD Other Provider Active Start: A pril 2024 End: August 02, 2024 Marlon Morgan MD Other Provider Active S tart: July 25, 2024 End: August 02, 2024 Maxx Edwards , DO Other Provider Active Star t: July 25, 2024 End: August 02, 2024 Zahra Shukla , DO Other Provider Active Start: July 25, 2024 End: August 02, 2024 Edgar Weller MD Other Provider Active Start: July 25, 2024 End: August 02, 2024 Raúl Gardner MD Other Provider Active Start: July 25, 025 End: August 02, 2024 Rochelle Fernández APRN Other Provider Active Star t: July 25, 2024 End: August 02, 2024 Jon Felder MD Other Provider Active Start: A pril 2024 End: August 02, 2024 Joshua Reynoso MD Other Provider Active Start: Ap ril 2024 End: August 02, 2024 Jhon Trinh MD Other Provider Active Start: July 25, 2024 End: August 02, 2024 Steve Martinez MD Other Provider Active Start : July 25, 2024 End: August 02, 2024 Jovani Sibley MD Other Provider Active Start: A pril 2024 End: August 02, 2024 Yumi Dover APRN Other Provider Active Sta rt: July 25, 2024 End: August 02, 2024 Christine Perez APRN Other Provider Active Start: July 25 End: August 02, 2024 Rose Oropeza RN Other Provider Active Start: A pril 2024 End: August 02, 2024 Team Status: Active Member Role Status Dates Antonino Gustafson MD Primary Care Provider Active Start: July 26, 2024 Dev Jacobsen MD Admit Provid er, Other Provider Active Start: July 26, 2024 Lucía Cordoba RN Other Provider Active Star t: July 26, 2024 Nancy Etienne , LILIANE Other Provider Active Start : July 26, 2024 Yolanda Fong , LILIANE Other Provider Active Star t: July 26, 2024 Rachel Maldonado , LILIANE Other Provider Active Start: A pril 2024 Cleo Mcfadden , LILIANE Other Provider Active Start: Ap ril 2024 Neeru Abreu , LILIANE Other Provider Active Start: A pril 2024 Jhony Davis MD Other Provider Active Start: July 26, 2024 Ada Marcano DO Other Provider Active Start : July 26, 2024 Robin Jenkins MD Other Provider Active Start : July 26, 2024 Duane Hunter , Other Provider Active Start: July 26, 2024 Jerome Amaya MD Other Provider Active Start: July 26, 2024 Gloria Deleon MD Other Provider Active Start : July 26, 2024 Stu Kulkrani DO Other Provider Active St art: July 26, 2024 Steve Baez MD Other Provider Active Start: A pril 2024 Kayla Lacy APRN Other Provider Active Start: July 26, 2024 Zita Day MD Other Provider Active Start: July 26, 2024 Joe Ace MD Other Provider Active Start: A pril 2024 Elsa Amin MD Other Provider Active Start: July 26, 2024 Endy Blancas MD Other Provider Active Start: July 26, 2024 Stu Alegria DO Other Provider Active Start: July 26, 2024 Andreina Lopez MD Other Provider Active Start: Ap ril 2024 Bimal Green MD Other Provider Active Start: Jun Ivette Case , [employer] Other Provider Active St art: July 26, 2024 Jose Cochran APRN Other Provider Active Star t: July 26, 2024 Curly Smalls MD Other Provider Active Start: July 26, 2024 Yousuf Gracia MD Other Provider Active Start: Ap ril 2024 Jaxson Weller MD Other Provider Active Start: Jun il 2024 Zora Carey MD Other Provider Active Star t: July 26, 2024 Lino Lala MD Other Provider Active Start: A pril 2024 Michelle Stevens DO Other Provider Active Start: Ap ril 2024 Maverick Lopez , Other Provider Active Start : July 26, 2024 Luz Marina Gonzalez APRN Other Provider Active Start: July 26, 2024 Chico Aragon DO Other Provider Active Start: July 26, 2024 Tamica Brown MD Other Provider Active Sta rt: July 26, 2024 Darlyn Avalos APRN Other Provider Active Start : July 26, 2024 Suzi Russo , AIMEE Other Provider Active St art: July 26, 2024 Martín Marrufo MD Other Provider Active Start: A pril 2024 Marlon Morgan MD Other Provider Active S tart: July 26, 2024 Maxx Edwards , Other Provider Active Star t: July 26, 2024 Zahra Shukla , Other Provider Active Start: July 26, 2024 Edgar Weller MD Other Provider Active Start: July 26, 2024 Raúl Gardner MD Other Provider Active Start: July 26, 025 Rochelle Fernández APRN Other Provider Active Star t: July 26, 2024 Jon Felder MD Other Provider Active Start: A pril 2024 Joshua Reynoso MD Other Provider Active Start: Ap ril 2024 Jhon Trinh MD Other Provider Active Start: July 26, 2024 Steve Martinez MD Other Provider Active Start : July 26, 2024 Jovani Sibley MD Other Provider Active Start: A pril 2024 Yumi Dover APRN Other Provider Active Sta rt: July 26, 2024 Christine Perez APRN Other Provider Active Start: July 26, Rose Oropeza RN Other Provider Active Start: A pril 2024 Enedina Cain APRN Attending Provider Active Start: July 26, 2024 Team Status: Active Member Role Status Dates Antonino Gustafson MD Primary Care Provider Active Start: August 02, 2024 Dev Jacobsen MD Admit Provid er, Attending Provider, Other Provider Active Start: August 02, 2024 Lucía Cordoba , LILIANE Other Provider Active Star t: August 02, 2024 Nancy Etienne , LILIANE Other Provider Active Start : August 02, 2024 Yolanda Fong RN Other Provider Active Star t: August 02, 2024 Rachel Maldonado RN Other Provider Active Start: M ay 2024 Cleo Mcfadden RN Other Provider Active Start: Ma y 2024 Neeru Abreu RN Other Provider Active Start: M ay 2024 Jhony Davis MD Other Provider Active Start: August 02, 2024 Ada Marcano , DO Other Provider Active Start : August 02, 2024 Robin Jenkins MD Other Provider Active Start : August 02, 2024 Duane Hunter , DO Other Provider Active Start: August 02, 2024 Jerome Amaya MD Other Provider Active Start: August 02, 2024 Gloria Deleon MD Other Provider Active Start : August 02, 2024 Stu Kulkarni , DO Other Provider Active St art: August 02, 2024 Steve Baez MD Other Provider Active Start: M ay 2024 Kayla Lacy , ELECTRIC METER INSPECTOR Other Provider Active Start: August 02, 2024 Zita Day MD Other Provider Active Start: August 02, 2024 Joe Ace MD Other Provider Active Start: M ay 2024 Elsa Amin MD Other Provider Active Start: August 02, 2024 Endy Blancas MD Other Provider Active Start: August 02, 2024 Stu Alegria , Other Provider Active Start: August 02, 2024 Andreina Lopez MD Other Provider Active Start: Ma y 2024 Bimal Green MD Other Provider Active Start: August 02, 2024 Ivette Case , [employer] Other Provider Active St art: August 02, 2024 Jose Cochran , ELECTRIC METER INSPECTOR Other Provider Active Star t: August 02, 2024 Curly Smalls MD Other Provider Active Start: August 02, 2024 Yousuf Gracia MD Other Provider Active Start: Ma y 2024 Jaxson Weller MD Other Provider Active Start: August 02, 2024 Zora Carey MD Other Provider Active Star t: August 02, 2024 Lino Lala MD Other Provider Active Start: M ay 2024 Michelle Stevens , DO Other Provider Active Start: Ma y 2024 Maverick Lopez , DO Other Provider Active Start : August 02, 2024 Luz Marina Gonzalez , AIMEE Other Provider Active Start: August 02, 2024 Chico Aragon , DO Other Provider Active Start: August 02, 2024 Tamica Brown MD Other Provider Active Sta rt: August 02, 2024 Darlyn Avalos APRN Other Provider Active Start : August 02, 2024 Suzi Russo APRN Other Provider Active St art: August 02, 2024 Martín Marrufo MD Other Provider Active Start: M ay 2024 Marlon Morgan MD Other Provider Active S tart: August 02, 2024 Maxx Edwards , DO Other Provider Active Star t: August 02, 2024 Zahra Shukla , DO Other Provider Active Start: August 02, 2024 Edgar Weller MD Other Provider Active Start: August 02, 2024 Raúl Gardner MD Other Provider Active Start: August 02, 2024 Rochelle Fernández APRN Other Provider Active Star t: August 02, 2024 Jon Felder MD Other Provider Active Start: M ay 2024 Joshua Reynoso MD Other Provider Active Start: Ma y 2024 Jhon Trinh MD Other Provider Active Start: August 02, 2024 Steve Martinez MD Other Provider Active Start : August 02, 2024 Jovani Sibley MD Other Provider Active Start: M ay 2024 Yumi Dover APRN Other Provider Active Sta rt: August 02, 2024 Christine Perez APRN Other Provider Active Start: August 02, 2024 Rose Oropeza RN Other Provider Active Start: M ay 2024 Team Status: Active Member Role Status Dates Antonino Gustafson MD Primary Care Provider Active Start: August 03, 2024 Nicole Lang CMA Attending Provider Active Start: August 03, 2024 Team Status: Inactive Member Role Status Dates Antonino Gustafson MD Primary Care Provide r, Attending Provider Active Start: August 07, 2024 End: August 07, 2024 Team Status: Active Member Role Status Dates Antonino Gustafson MD Primary Care Provider Active Start: August 16, 2024 Nicole Lang CMA Attending Provider Active Start: August 16, 2024 Team Status: Inactive Member Role Status Dates Antonino Gustafson MD Primary Care Provide r, Attending Provider Active Start: August 29, 2024 End: August 29, 2024 Team Status: Inactive Member Role Status Dates Antonino Gustafson MD Primary Care Provide r, Attending Provider Active Start: May 22, 2024 End: May 22, 2024 Team Status: Active Member Role Status Dates Antonino Gustafson MD Primary Care Provider Active Start: July 22, 2024 Asad Mcnally Jr, MD Emergency Provider Active Start: July 22, 2024 Jon Felder MD Admit Provider, Atte nding Provider Active Start: July 22, 2024 Team Status: Active Member Role Status Dates Nicole Lang CMA Attending Provider Active Start: March 08, 2024 Team Status: Inactive Member Role Status Dates Antonino Gustafson MD Primary Care Provide r, Attending Provider Active Start: March 14, 2024 End: March 14, 2024 Team Status: Active Member Role Status Dates Antonino Gustafson MD Primary Care Provide r, Attending Provider Active Start: March 21, 2024 Team Status: Inactive Member Role Status Dates Antonino Gustafson MD Primary Care Provider Active Start: March 28, 2024 End: March 28, 2024 Liliya Cox MD Attending Provider Active Start : March 28, 2024 End: March 28, 2024 Team Status: Inactive Member Role Status [...] MD Primary Care Provider Active Willie Lyon , Emergency Provider Active Elsa Amin MD Admit Provider, Attending Provider Active Lian Reyes RN Other Provider Active Sherron Ramos DO Other Provider Active Ludwin Arias MD Other Provider Active Michael Carrasco MD Other Provider Active Chance Dennison MD Other Provider Active Juan Martin MD Other Provider Active Meera Avalos APRN Other Provider Active Allie Flores MD Other Provider Active Reagan Bello MD Other Provider Active Adrienne Oconnor MD Other Provider Active Camryn Bosch , [facility] Other Provider Active Svitlana Reyes MD Other Provider Active Team Status: Inactive Member Role Status Dates Antonino Gustafson MD Primary Care Provider Active Ortiz Cota , DO Emergency Provider Active Team Status: Active Member Role Status Dates Antonino Gustafson MD Primary Care Provider Active Willie Lyon , DO Emergency Provider Active Elsa Amin MD Admit Provider, Attending Provider Active Access Clinician Relationship Specialty Start Date End Date Antonino Gustafson MD PCP - General 03/29/1998 Access Clinician Relationship Specialty Start Date End Date Antonino Gustafson MD [facility] General 03/29/1998 Team Status: Inactive Member Role Status Dates Antonino Gustafson MD Primary Care Provider Active Start: December 22, 2023 End: December 22, 2023 Faby Lira APRN Attending Provider Active S tart: December 22, 2023 End: December 22, 2023 Access Clinician Relationship Specialty Start Date End Date Antonino Gustafson MD [address] [place] [id number] [facility] General 03/29/1998 Team Status: Active Member Role Status Dates Antonino Gustafson MD Primary Care Provider Active Start: February 05, 2024 Med Patel , Attending Provider Active S tart: February 05, 2024 Team Status: Active Member Role Status Dates Antonino Gustafson MD Primary Care Provider Active Start: February 07, 2024 Nicole Lang CMA Attending Provider Active Start: February 07, 2024 Team Status: Inactive Member Role Status Dates Antonino Gustafson MD Primary Care Provide r, Attending Provider Active Start: February 17, 2024 End: February 17, 2024 Access Clinician Relationship Specialty Start Date End Date Antonino Gustafson MD [address] [place] [id number] PCP - General Family Medicine 03/06/24 Access Clinician Relationship Specialty Start Date End Date Antonino Gustafson MD [address] [place] [facility] [place] [address] PCP - General Family Medicine 03/06/24 Access Clinician Relationship Specialty Start Date End Date Antonino Gustafson MD [address] [place] [facility] [place] [address] PCP - General Family Medicine 03/06/24 Access Clinician Relationship Specialty Start Date End Date Antonino Gustafson MD [address] [facility] [place] [address] PCP - General 03/29/1998 Access Clinician Relationship Specialty Start Date End Date Antonino Gustafson MD [address] [place] [facility] [place] [id number] PCP - General Family Medicine 03/06/24 Access Clinician Relationship Specialty Start Date End Date Antonino Gustafson MD [address] [facility] [place] [address] PCP - General 03/29/1998 Access Clinician Relationship Specialty Start Date End Date Antonino Gustafson MD [address] [place] [facility] [place] [id number] PCP - General Family Medicine 03/06/24 Access Clinician Relationship Specialty Start Date End Date Antonino Gustafson MD [address] [place] [facility] [place] [phone] PCP - General Family Medicine 03/06/24 Access Clinician Relationship Specialty Start Date End Date Antonino Gustafson MD [address] [facility] [place] [id number] PCP - General Family Medicine 03/06/24 Team Status: Active Member Role Status Dates Atnonino Gustafson MD Primary Care Provider Active Start: July 23, 2024 Asad Mcnally Jr, MD Emergency Provider Active Start: July 23, 2024 Jon Felder MD Admit Provider Active Start: A pril 2024 Jhony Davis MD Other Provider Active Start: July 23, 2024 Selena Ch Other Provider Active Start: July 23, 2024 Dani Lund , PhD Other Provider Active S tart: July 23, 2024 Nancie Leigh , Other Provider Active Start: July 23, 2024 Kamar Escobar MD Other Provider Active Start : July 23, 2024 Guido Bridges , Other Provider Active Start: July 23, 2024 Abdulkadir Amaro , Other Provider Active Start: July 23, 2024 Rochelle Greene APRN Other Provider Active St art: July 23, 2024 Marina Burt , [employer] Other Provider Active Sta rt: July 23, 2024 Amanda Bray , [employer] Other Provider Active Start: July 23, 2024 Sanam Barrientos APRN ACNP-BC Other Provider Active Start: July 23, 2024 Guido Torres MD Other Provider Active Start: July 23, 2024 Karan Matias MD Other Provider Active St art: July 23, 2024 Abdulkadir Aguilar MD Other Provider Active Start: A pril 2024 Ferny Barksdale , DO Other Provider Active Start: July 23, 2024 Amari Bar , Other Provider Active Start: July 23, 2024 Samra Andrade MD Attending Provider Active Star t: July 23, 2024 Samra Andrade MD Other Provider Active Start: A pril 2024 Angel Chiu MD Other Provider Active Start: July 23 Hayder Santiago MD Other Provider Active Start: A pril 2024 Aenudy Perez MD Other Provider Active Start: July 23, 2024 Team Status: Active Member Role Status Dates Antonino Gustafson MD Primary Care Provider Active Start: July 24, 2024 Asad Mcnally Jr, MD Emergency Provider Active Start: July 24, 2024 Jon Felder MD Admit Provider Active Start: A l 2024 Selena Ch Other Provider Active Start: July 24, 2024 Dani Lund , PhD Other Provider Active S tart: July 24, 2024 Nancie Leigh , Other Provider Active Start: July 24, 2024 Kamar Escobar MD Other Provider Active Start : July 24, 2024 Guido Bridges , Other Provider Active Start: July 24, 2024 Abdulkadir Amaro , Other Provider Active Start: July 24, 2024 Rochelle Greene , ELECTRIC METER INSPECTOR Other Provider Active St art: July 24, 2024 Marina Burt , [employer] Other Provider Active Sta rt: July 24, 2024 Amanda Bray ELECTRIC METER INSPECTOR-[employer]ERSONAL [employer]ION-C Other Provider Active Start: July 24, 2024 Sanam Barrientos ELECTRIC METER INSPECTOR ACNP-BC Other Provider Active Start: July 24, 2024 Guido Torres MD Other Provider Active Start: July 24, 2024 Karan Matias MD Other Provider Active St art: July 24, 2024 Abdulkadir Aguilar MD Other Provider Active Start: A pril 2024 Ferny Barksdale , Other Provider Active Start: July 24, 2024 Amari Bar , Other Provider Active Start: July 24, 2024 Samra Andrade MD Other Provider Active Start: A pril 2024 Angel Chiu MD Other Provider Active Start: July 24 Hayder Santiago MD Other Provider Active Start: A pril 2024 Aneudy Perez MD Other Provider Active Start: July 24, 2024 Jovani Sibley MD Other Provider Active Start: A pril 2024 Jenny Wilson MD Other Provider Active Start: ril 2024 Jhon Abreu MD Other Provider Active Start: A pril 2024 Enedina Cain APRN Other Provider Active St art: July 24, 2024 Shawn Merchant Jr, Other Provider Active S tart: July 24, 2024 Dev Jacobsen MD Other Provider Active Start: July 24, 2024 Sylvie Florez , Attending Provider Active Start: July 24, 2024 Sylvie Florez , Other Provider Active Sta rt: July 24, 2024 Team Status: Active Member Role Status Dates Antonino Gustafson MD Primary Care Provider Active Start: July 24, 2024 Asad Mcnally Jr, MD Emergency Provider Active Start: July 24, 2024 Jon Felder MD Admit Provider Active Start: A 2024 Selena Ch Other Provider Active Start: July 24, 2024 Dani Lund , PhD Other Provider Active S tart: July 24, 2024 Nancie Leigh , Other Provider Active Start: July 24, 2024 Kamar Escobar MD Other Provider Active Start : July 24, 2024 Guido Bridges , Other Provider Active Start: July 24, 2024 Abdulkadir Amaro , Other Provider Active Start: July 24, 2024 Rochelle Greene APRN Other Provider Active St art: July 24, 2024 Marina Burt [employer] Other Provider Active Sta rt: July 24, 2024 Amanda Bray APRN-[employer]ION-[employer] Other Provider Active Start: July 24, 2024 Sanam Barrientos APRN ACNP-BC Other Provider Active Start: July 24, 2024 Guido Torres MD Other Provider Active Start: July 24, 2024 Karan Matias MD Other Provider Active St art: July 24, 2024 Abdulkadir Aguilar MD Other Provider Active Start: A pril 2024 Ferny Barksdale DO Other Provider Active Start: July 24, 2024 Amari Bar , Other Provider Active Start: July 24, 2024 Samra Andrade MD Other Provider Active Start: A pril 2024 Angel Chiu MD Other Provider Active Start: July 24 Hayder Santiago MD Other Provider Active Start: A pril 2024 Aneudy Perez MD Other Provider Active Start: July 24, 2024 Jovani Sibley MD Other Provider Active Start: A pril 2024 Jenny Wilson MD Other Provider Active Start: Ap ril 2024 Jhon Abreu MD Attending Provider Active Star t: July 24, 2024 Jhon Abreu MD Other Provider Active Start: A pril 2024 Enedina Cain APRN Other Provider Active St art: July 24, 2024 Shawn Merchant Jr, DO Other Provider Active S tart: July 24, 2024 Dev Jacobsen MD Other Provider Active Start: July 24, 2024 Sylvie Florez DO Other Provider Active Sta rt: July 24, 2024 Team Status: Inactive Member Role Status Dates Antonino Gustafson MD Primary Care Provider Active Start: July 25, 2024 End: August 02, 2024 Dev Jacobsen MD Admit Provider Active Start: July 25, 2024 End: August 02, 2024 Dev Jacobsen MD Attending Provider Active Start: July 25, 2024 End: August 02, 2024 Lucía Cordoba RN Other Provider Active Star t: July 25, 2024 End: August 02, 2024 Nancy Etienne , LILIANE Other Provider Active Start : July 25, 2024 End: August 02, 2024 Yolanda Fong , LILIANE Other Provider Active Star t: July 25, 2024 End: August 02, 2024 Rachel Maldonado , LILIANE Other Provider Active Start: A pril 2024 End: August 02, 2024 Cleo Mcfadden , LILIANE Other Provider Active Start: Ap ril 2024 End: August 02, 2024 Neeru Abreu RN Other Provider Active Start: A pril 2024 End: August 02, 2024 Jhony Davis MD Other Provider Active Start: July 25, 2024 End: August 02, 2024 Ada Marcano DO Other Provider Active Start : July 25, 2024 End: August 02, 2024 Robin Jenkins MD Other Provider Active Start : July 25, 2024 End: August 02, 2024 Duane Hunter DO Other Provider Active Start: July 25, 2024 End: August 02, 2024 Jerome Amaya MD Other Provider Active Start: July 25, 2024 End: August 02, 2024 Gloria Deleon MD Other Provider Active Start : July 25, 2024 End: August 02, 2024 Stu Kulkarni DO Other Provider Active St art: July 25, 2024 End: August 02, 2024 Steve Baez MD Other Provider Active Start: A pril 2024 End: August 02, 2024 Kayla Lacy APRN Other Provider Active Start: July 25, 2024 End: August 02, 2024 Zita Day MD Other Provider Active Start: July 25, 2024 End: August 02, 2024 Joe Ace MD Other Provider Active Start: A pril 2024 End: August 02, 2024 Elsa Amin MD Other Provider Active Start: July 25, 2024 End: August 02, 2024 Endy Blancas MD Other Provider Active Start: July 25, 2024 End: August 02, 2024 Stu Alegria DO Other Provider Active Start: July 25, 2024 End: August 02, 2024 Andreina Lopez MD Other Provider Active Start: Ap ril 2024 End: August 02, 2024 Bimal Green MD Other Provider Active Start: Apr il 2024 End: August 02, 2024 Ivette Case NP-C Other Provider Active St art: July 25, 2024 End: August 02, 2024 Jose Cochran APRN Other Provider Active Star t: July 25, 2024 End: August 02, 2024 Curly Smalls MD Other Provider Active Start: July 25, 2024 End: August 02, 2024 Yousuf Gracia MD Other Provider Active Start: Ap ril 2024 End: August 02, 2024 Jaxson Weller MD Other Provider Active Start: Apr il 2024 End: August 02, 2024 Zora Carey MD Other Provider Active Star t: July 25, 2024 End: August 02, 2024 Lino Lala MD Other Provider Active Start: A pril 2024 End: August 02, 2024 Michelle Stevens , DO Other Provider Active Start: Ap ril 2024 End: August 02, 2024 Maverick Lopez , DO Other Provider Active Start : July 25, 2024 End: August 02, 2024 Luz Marina Gonzalez APRN Other Provider Active Start: July 25, 2024 End: August 02, 2024 Chico Aragon , Other Provider Active Start: July 25, 2024 End: August 02, 2024 Tamica Brown MD Other Provider Active Sta rt: July 25, 2024 End: August 02, 2024 Darlyn Avalos APRN Other Provider Active Start : July 25, 2024 End: August 02, 2024 Suzi Russo APRN Other Provider Active St art: July 25, 2024 End: August 02, 2024 Martín Marrufo MD Other Provider Active Start: A pril 2024 End: August 02, 2024 Marlon Morgan MD Other Provider Active S tart: July 25, 2024 End: August 02, 2024 Maxx Edwards , Other Provider Active Star t: July 25, 2024 End: August 02, 2024 Zahra Shukla DO Other Provider Active Start: July 25, 2024 End: August 02, 2024 Edgar Weller MD Other Provider Active Start: July 25, 2024 End: August 02, 2024 Raúl Gardner MD Other Provider Active Start: July 25, 2024 End: August 02, 2024 Rochelle Fernández APRN Other Provider Active Star t: July 25, 2024 End: August 02, 2024 Jon Felder MD Other Provider Active Start: A pril 2024 End: August 02, 2024 Joshua Reynoso MD Other Provider Active Start: Ap ril 2024 End: August 02, 2024 Jhon Trinh MD Other Provider Active Start: July 25, 2024 End: August 02, 2024 Steve Martinez MD Other Provider Active Start : July 25, 2024 End: August 02, 2024 Jovani Sibley MD Other Provider Active Start: A pril 2024 End: August 02, 2024 Yumi Dover APRN Other Provider Active Sta rt: July 25, 2024 End: August 02, 2024 Christine Perez APRN Other Provider Active Start: July 25, 2024 End: August 02, 2024 Rose Oropeza RN Other Provider Active Start: A pril 2024 End: August 02, 2024 Team Status: Active Member Role Status Dates Antonino Gustafson MD Primary Care Provider Active Start: July 26, 2024 Dev Jacobsen MD Admit Provider Active Start: July 26, 2024 Dev Jacobsen MD Other Provider Active Start: July 26, 2024 Lucía Cordoba , LILIANE Other Provider Active Star t: July 26, 2024 Nancy Etienne , LILIANE Other Provider Active Start : July 26, 2024 Yolanda Fong RN Other Provider Active Star t: July 26, 2024 Rachel Maldonado , LILIANE Other Provider Active Start: A 2024 Cleo Mcfadden , LILIANE Other Provider Active Start: 2024 Neeru Abreu , LILIANE Other Provider Active Start: A pri2024 Jhony Davis MD Other Provider Active Start: July 26, 2024 Ada Marcano DO Other Provider Active Start : July 26, 2024 Robin Jenkins MD Other Provider Active Start : July 26, 2024 Duane Hunter DO Other Provider Active Start: July 26, 2024 Jerome Amaya MD Other Provider Active Start: July 26, 2024 Gloria Deleon MD Other Provider Active Start : July 26, 2024 Stu Kulkarni DO Other Provider Active St art: July 26, 2024 Steve Baez MD Other Provider Active Start: A pri2024 Kayla Lacy APRN Other Provider Active Start: July 26, 2024 Zita Day MD Other Provider Active Start: July 26, 2024 Joe Ace MD Other Provider Active Start: A pril 2024 Elsa Amin MD Other Provider Active Start: July 26, 2024 Endy Blancas MD Other Provider Active Start: July 26, 2024 Stu Alegria , Other Provider Active Start: July 26, 2024 Andreina Lopez MD Other Provider Active Start: Ap ril 2024 Bimal Green MD Other Provider Active Start: Apr il 2024 Ivette Case [employer] Other Provider Active St art: July 26, 2024 Jose Cochran ELECTRIC METER INSPECTOR Other Provider Active Star t: July 26, 2024 Curly Smalls MD Other Provider Active Start: July 26, 2024 Yousuf Gracia MD Other Provider Active Start: Ap ril 2024 Jaxson Weller MD Other Provider Active Start: Apr il 2024 Zora Carey MD Other Provider Active Star t: July 26, 2024 Lino Lala MD Other Provider Active Start: A pril 2024 Michelle Stevens DO Other Provider Active Start: Ap ril 2024 Maverick Lopez , Other Provider Active Start : July 26, 2024 Luz Marina Gonzalez APRN Other Provider Active Start: July 26, 2024 Chico Aragon DO Other Provider Active Start: July 26, 2024 Tamica Brown MD Other Provider Active Sta rt: July 26, 2024 Darlyn Avalos APRN Other Provider Active Start : July 26, 2024 Suzi Russo APRN Other Provider Active St art: July 26, 2024 Martín Marrufo MD Other Provider Active Start: A pril 2024 Marlon Morgan MD Other Provider Active S tart: July 26, 2024 Maxx Edwards , DO Other Provider Active Star t: July 26, 2024 Zahra Shukla DO Other Provider Active Start: July 26, 2024 Edgar Weller MD Other Provider Active Start: July 26, 2024 Raúl Gardner MD Other Provider Active Start: July 26, 2024 Rochelle Fernández APRN Other Provider Active Star t: July 26, 2024 Jon Felder MD Other Provider Active Start: A pril 2024 Joshua Reynoso MD Other Provider Active Start: Ap ril 2024 Jhon Trinh MD Other Provider Active Start: July 26, 2024 Steve Martinez MD Other Provider Active Start : July 26, 2024 Jovani Sibley MD Other Provider Active Start: A pril 2024 Yumi Dover APRN Other Provider Active Sta rt: July 26, 2024 Christine Perez APRN Other Provider Active Start: July 26, 2024 Rose Oropeza RN Other Provider Active Start: A 2024 Enedina Cain APRN Attending Provider Active Start: July 26, 2024 Team Status: Active Member Role Status Dates Antonino Gustafson MD Primary Care Provider Active Start: August 02, 2024 Dev Jacobsen MD Admit Provider Active Start: August 02, 2024 Dev Jacobsen MD Attending Provider Active Start: August 02, 2024 Dev Jacobsen MD Other Provider Active Start: August 02, 2024 Lucía Cordoba , LILIANE Other Provider Active Star t: August 02, 2024 Nancy Etienne RN Other Provider Active Start : August 02, 2024 Yolanda Fong , LILIANE Other Provider Active Star t: August 02, 2024 Rachel Maldonado , LILIANE Other Provider Active Start: M ay 2024 Cleo cMfadden , LILIANE Other Provider Active Start: Ma y 2024 Neeru Abreu , LILIANE Other Provider Active Start: M ay 2024 Jhony Davis MD Other Provider Active Start: August 02, 2024 Ada Marcano , DO Other Provider Active Start : August 02, 2024 Robin Jenkins MD Other Provider Active Start : August 02, 2024 Duane Hunter , Other Provider Active Start: August 02, 2024 Jerome Amaya MD Other Provider Active Start: August 02, 2024 Gloria Deleon MD Other Provider Active Start : August 02, 2024 Stu Kulkarni , DO Other Provider Active St art: August 02, 2024 Steve Baez MD Other Provider Active Start: M ay 2024 Kayla Lacy APRN Other Provider Active Start: August 02, 2024 Zita Day MD Other Provider Active Start: August 02, 2024 Joe Ace MD Other Provider Active Start: M ay 2024 Elsa Amin MD Other Provider Active Start: August 02, 2024 Endy Blancas MD Other Provider Active Start: August 02, 2024 Sut Alegria , DO Other Provider Active Start: August 02, 2024 Andreina Lopez MD Other Provider Active Start: Ma y 2024 Bimal Green MD Other Provider Active Start: August 02, 2024 Ivette Case NP-C Other Provider Active St art: August 02, 2024 Jose Cochran APRN Other Provider Active Star t: August 02, 2024 Curly Smalls MD Other Provider Active Start: August 02, 2024 Yousuf Gracia MD Other Provider Active Start: Ma y 2024 Jaxson Weller MD Other Provider Active Start: August 02, 2024 Zora Carey MD Other Provider Active Star t: August 02, 2024 Lino Lala MD Other Provider Active Start: M ay 2024 Michelle Stevens , DO Other Provider Active Start: y 2024 Maverick Lopez , DO Other Provider Active Start : August 02, 2024 Luz Marina Gonzalez APRN Other Provider Active Start: August 02, 2024 Chico Aragon , Other Provider Active Start: August 02, 2024 Tamica Brown MD Other Provider Active Sta rt: August 02, 2024 Darlyn Avalos APRN Other Provider Active Start : August 02, 2024 Suzi Russo APRN Other Provider Active St art: August 02, 2024 Martín Marrufo MD Other Provider Active Start: M ay 2024 Marlon Morgan MD Other Provider Active S tart: August 02, 2024 Maxx Edwards , DO Other Provider Active Star t: August 02, 2024 Zahra Shukla , DO Other Provider Active Start: August 02, 2024 Edgar Weller MD Other Provider Active Start: August 02, 2024 Raúl Gardner MD Other Provider Active Start: August 02, 2024 Rochelle Fernández APRN Other Provider Active Star t: August 02, 2024 Jon Felder MD Other Provider Active Start: M ay 2024 Joshua Reynoso MD Other Provider Active Start: Ma y 2024 Jhon Trinh MD Other Provider Active Start: August 02, 2024 Steve Martinez MD Other Provider Active Start : August 02, 2024 Jovani Sibley MD Other Provider Active Start: M ay 2024 Yumi Dover APRN Other Provider Active Sta rt: August 02, 2024 Christine Perez APRN Other Provider Active Start: August 02, 2024 Rose Oropeza RN Other Provider Active Start: M ay 2024 Team Status: Inactive Member Role Status Dates Antonino Gustafson MD Primary Care Provider Active Start: August 07, 2024 End: August 07, 2024 Antonino Gustafson MD Attending Provider Active St art: August 07, 2024 End: August 07, 2024 Team Status: Inactive Member Role Status Dates Antonino Gustafson MD Primary Care Provider Active Start: August 29, 2024 End: August 29, 2024 Antonino Gustafson MD Attending Provider Active St art: August 29, 2024 End: August 29, 2024 Team Status: Inactive Member Role Status Dates Antonino Gustafson MD Primary Care Provider Active Start: September 20, 2024 End: September 20, 2024 Nancie Leigh DO Attending Provider Active Sta rt: September 20, 2024 End: September 20, 2024 Team Status: Inactive Member Role Status Dates Antonino Gustafson MD Primary Care Provider Active Start: September 25, 2024 End: September 25, 2024 Antonino Gustafson MD Attending Provider Active St art: September 25, 2024 End: September 25, 2024 Access Clinician Relationship Specialty Start Date End Date Antonino Gustafson MD [address] [place] [address] [place] [address] PCP - General 03/29/1998 Team Status: Inactive Member Role Status Dates Antonino Gustafson MD Primary Care Provider Active Start: January 03, 2025 End: January 03, 2025 Nancie Leigh DO Attending Provider Active Sta rt: January 03, 2025 End: January 03, 2025 Goals (unrecognized section and content) Type Treatment Intervention Code Status: Full Code Goals may be documented in an alternate section INFORMATION SOURCE (unrecogn ized section and content) DATE CREATED AUTHOR 03/21/2022 [facility] DATE CREATED AUTHOR AUTHOR'S ORGANIZ ATION 03/21/2022 [employer] DATE CREATED AUTHOR AUTHOR'S ORGANIZ ATION 06/05/2022 [facility] DATE CREATED AUTHOR AUTHOR'S ORGANIZ ATION 03/09/2024 Parada Abel [facility] DATE CREATED AUTHOR AUTHOR'S ORGANIZ ATION 03/10/2024 Parada Desha [facility] DATE CREATED AUTHOR AUTHOR'S ORGANIZ ATION 03/11/2024 Parada Desha [facility] DATE CREATED AUTHOR AUTHOR'S ORGANIZ ATION 08/11/2024 [facility] DATE CREATED AUTHOR AUTHOR'S ORGANIZ ATION 09/05/2024 [facility] EPIC DATE CREATED AUTHOR AUTHOR'S ORGANIZ ATION 11/22/2024 [facility] FOR RECORDS PERTAINING TO PATIENTS WHO [...] BE BASED ON THE PRIMARY CLINICAL RECORDS. [facility] [employer] [facility] provides no warranty or guarantee of the accuracy or completeness of information in this document.
--- NOTE | 2025-01-09 18:00 | ECG_ITS ---
[facility] Test Date: 2025-01-09 Pat Name: SYMONE BURT Department: Room: [facility] Gender: Female [employer]: : 1940 Requested By: [id number] Order Number: [id number] Reading MD: HELENE KEANE M.D. Measurements Intervals [place] Rate: 55 P: 3 ND: 238 QRS: -52 QRSD: 92 T: 57 QT: 424 QTc: 412 Interpretive Statements 1100 Sinus rhythm 2231 First degree AV block 2440 Incomplete right bundle branch block 2630 Left anterior fascicular block 8003 Consistent with pulmonary disease 8102 Low QRS voltage in chest leads 9150 abnormal ECG Compared to ECG 10/23/2022 17:05:33 First degree AV block now present Incomplete right bundle-branch block now present Left anterior fascicular block now present Left-axis deviation no longer present Electronically Signed On 01-10-2025 7:38:42 EDT by HELENE KEANE M.D.
--- NOTE | 2025-01-09 18:14 | ED.GENADUL1 ---
Documented by User: PARKER Perez 01/10/25 00:56 HPI HPI - General Adult General Chief complaint: Altered Mental Status Stated complaint: HARD TIME FILLING IN SENTENCES Time Seen by Provider: 01/09/25 18:00 Source: patient Mode of arrival: Wheelchair Limitations: no limitations History of Present Illness HPI narrative: Patient is an 84-year-old female with a past medical history of previous stroke, hypertension, hypothyroid that presents to the emergency department with complaints that at about 4:00 today she had and inability of finding her words. Her daughter was visiting and confirms this. The episode did not last long and patient thought she was dehydrated and drank a large glass of water. She is on aspirin and Eliquis for her previous stroke, which was last year. She also had seizures the night of her stroke and has been on Keppra as well since that time. She denies any chest pain, shortness of breath, upper or lower extremity weakness/numbness/tingling. She states she has some residual left-sided facial weakness from the previous stroke, but mostly it affects her vision. She denies any visual changes since this episode this afternoon. Related Data Home Medications ?Medication ?Instructions ?Recorded ?Confirmed aspirin 81 mg tablet,delayed 81 mg PO .COMPLEX 10/23/22 01/10/25 release (Adult Low Dose Aspirin) fenofibrate 54 mg tablet 54 mg PO DAILY 10/23/22 01/10/25 levothyroxine 112 mcg tablet 112 mcg PO DAILY 10/23/22 01/09/25 metoprolol tartrate 50 mg tablet 50 mg PO DAILY 10/23/22 01/10/25 apixaban 5 mg tablet (Eliquis) mg PO Q12H 08/14/24 atorvastatin 40 mg tablet 40 mg 08/14/24 levetiracetam 500 mg tablet 500 mg PO 08/14/24 levothyroxine 100 mcg tablet mcg 01/09/25 (Synthroid) valsartan 320 mg tablet mg 01/09/25 Allergies Allergy/AdvReac Type Severity Reaction Status Date / Time amlodipine (From Norvasc) Allergy Severe Rash Verified 01/09/25 17:54 ciprofloxacin Allergy Severe Rash Verified 01/09/25 17:54 clonidine (From Catapres) Allergy Severe Rash Verified 01/09/25 17:54 lisinopril Allergy Severe Rash Verified 01/09/25 17:54 Phyiwyk-SDW-VfF Reductase Allergy Severe Rash Verified 01/09/25 17:54 Inhibitor hydralazine Allergy Unknown Verified 01/09/25 17:54 medro dose pack Allergy Severe Rash Uncoded 01/09/25 17:54 Opioid HPI Opioid Management Most Recent Opioid Data: Last Pain Scale 4 08/14/24, 10:08 Review of Systems ROS Status of ROS 10 or more systems reviewed and unremarkable except as noted in history and below PFSH [facility] Medical History (Updated 01/09/25 @ 23:02 by Ronald Bo MD) Stroke ?I63.9 - Cerebral infarction, unspecified (ICD-10) Hypothyroidism ?E03.9 - Hypothyroidism, unspecified (ICD-10) Hypertension ?I10 - Essential (primary) hypertension (ICD-10) Surgical History (Updated 01/09/25 @ 17:58 by Nay Gonzalez RN) Hx of cardiac cath ?Z98.890 - Other specified postprocedural states (ICD-10) Social History Little interest or pleasure in doing things: not at all Feeling down, depressed, or hopeless: not at all Exam Narrative Exam Narrative: General: No distress, age-appropriate Skin: Warm, dry, no pallor. No rash. Head: Normocephalic, atraumatic. Neck: Supple, non-tender. Eye: Pupils are equal, round and EOMI. No scleral icterus. Ears, Nose, Mouth, and Throat: No nasal mucosal hypertrophy. Oral mucosa is moist, no posterior oropharynx erythema, uvula is mid-line Cardiovascular: Regular Rate and Rhythm without murmur, gallop or rub. Respiratory: No accessory muscle use or respiratory distress. Lungs are clear to auscultation, no wheezing, rales or rhonchi Chest Wall: no tenderness Back: No midline thoracic or lumbar vertebral tenderness. Musculoskeletal: Full ROM of all extremities, no calf or popliteal tenderness GI: Abdomen is soft, non-distended, non tender to palpation. No masses appreciated. No rebound, guarding, or rigidity noted. Neurological: A&O x4. No cranial nerve dysfunction observed. No truncal ataxia. Moves all extremities. Sensation intact. 5/5 bilateral upper and lower extremity strength. Sensation intact with light touch distally bilateral upper and lower extremities. Constitutional Vital Signs, click to edit/add: Last Vital Signs Temp 98.4 F 01/09/25 17:47 Pulse 54 L 01/10/25 00:02 Resp 17 01/10/25 00:02 BP 161/69 H 01/10/25 00:02 Pulse Ox 99 01/09/25 17:47 O2 Del Method Room Air 01/09/25 17:47 Documenting provider has reviewed patient's vital signs: yes Course Vital Signs Vital signs: Vital Signs Temperature 98.4 F 01/09/25 17:47 Pulse Rate 88 01/09/25 17:47 Respiratory Rate 18 01/09/25 17:47 Blood Pressure 208/91 H 01/09/25 17:47 Pulse Oximetry 99 01/09/25 17:47 Oxygen Delivery Method Room Air 01/09/25 17:47 Temperature 98.4 F 01/09/25 17:47 Pulse Rate 54 L 01/10/25 00:02 Respiratory Rate 17 01/10/25 00:02 Blood Pressure 161/69 H 01/10/25 00:02 Pulse Oximetry 99 01/09/25 17:47 Oxygen Delivery Method Room Air 01/09/25 17:47 Medical Decision Making MDM Narrative Medical decision making narrative: This is an 84-year-old female that presented to the emergency department with complaints of an episode of aphasia when attempting to speak with her daughter at about 4 PM that lasted about 10 to 15 minutes. She does have a history of stroke a year ago and currently is taking Eliquis and aspirin. She also had seizures the day the stroke was diagnosed and has been on Keppra since as well. She does have some residual left-sided deficits, mostly with her vision in her left eye. On arrival patient is in no distress, no neurological defects noted. She has 5/5 strength in her bilateral upper and lower extremities. She moves all 4 extremities equally. Sensation is intact with light touch distally to bilateral upper and lower extremities. GCS 15. No aphasia on exam. No involuntary movements. Negative pronator drift. Negative oxoenf-ar-zlcd. Negative rapid alternating movements CT head negative for acute intracranial hemorrhage. Remote infarct in the right occipital lobe. BP still elevated on repeat to 213/78 systolic. Patient's heart rate on telemetry was in the mid 50s. Labetalol considered but heart rate too low. Patient reported allergies to hydralazine and Catapres, she could not remember the allergy and if it was anaphylaxis. Cardene drip initiated to lower BP per protocol, systolic under 200, to get a CTA head and neck. Patient received about 5mg of Cardene and the drip was stopped, BP improved to systolics of 180's. CTA head and neck with note of severe narrowing of the distal aspect of the right middle cerebral artery M1 segment near the bifurcation which may be atherosclerotic in nature or secondary to a subocclusive thrombus. There is significant narrowing of M2 branch of the of the left middle cerebral artery near the anterior aspect of the sylvian fissure which may represent atherosclerotic change or subocclusive thrombus.I discussed results with patient and her daughter and that I would be seeking consultation with the interventional neurologist on-call. On reevaluation patients neurostatus remained stable. I did contact Dr Dhillon with [facility] engineer conductor and discussed case with him. He will review images after they are pushed and we will call back in 30 minutes. At this time, 2200 case was discussed with Dr. Bo as my shift is ending and disposition is pending consultation recommendations from the interventional neurologist. Care transferred at end of PA shift. PA had spoken to [facility] Stroke Dr Dhillon. He requested to have her scan pushed over for him to read. He called back and felt the patient could remain here. Recommend MRI in AM. Discussed with the hospitalist Dr Davis and patient accepted to obs bed Differential Diagnosis Differential Diagnosis: TIA, focal seizure, recurrent stroke Lab Data Lab results reviewed: Yes I reviewed the patient's lab results Labs: Lab Results 01/09/25 01/09/25 01/09/25 Range/Units 18:01 18:40 19:25 WBC 7.5 (4.0-11.0) 10^3/uL RBC 4.46 (4.20-5.40) 10^6/uL Hgb 13.5 (12.0-16.0) g/dL Hct 37.9 (36.0-48.0) % MCV 85.0 (81.0-99.0) fL MCH 30.3 (26.7-34.0) pg MCHC 35.6 H (29.9-35.2) g/dL RDW 13.9 (11.0-15.0) % Plt Count 227 (150-450) 10^3/uL MPV 9.3 L (9.5-13.5) fL Neut % (Auto) 49.8 (43.0-75.0) % Lymph % (Auto) 35.7 (20.5-60.0) % [place] % (Auto) 11.3 (1.7-12.0) % Eos % (Auto) 2.4 (0.9-7.0) % Baso % (Auto) 0.5 (0.2-2.0) % Neut # (Auto) 3.8 (1.4-6.5) 10^3/uL Lymph # (Auto) 2.7 (1.2-3.8) 10^3/uL [place] # (Auto) 0.9 H (0.3-0.8) 10^3/uL Eos # (Auto) 0.2 (0.0-0.7) 10^3/uL Baso # (Auto) 0.0 (0.0-0.1) 10^3/uL Abs Immat Gran (auto) 0.02 (0.00-0.03) 10^3/uL Imm/Tot Granulo (auto) 0.3 (0.0-0.5) % Sodium 129 L (136-145) mmol/L Potassium 4.4 (3.5-5.1) mmol/L Chloride 92 L (98-107) mmol/L Carbon Dioxide 28.9 (21.0-32.0) mmol/L Anion Gap 12.5 BUN 27.0 H (7.0-18.0) mg/dL Creatinine 1.25 H (0.55-1.02) mg/dL Est GFR ( Amer) 49 L (>=60 mL/min/1.73m^2) Est GFR (Non-Af Amer) 41 L (>=60 mL/min/1.73m^2) BUN/Creatinine Ratio 21.6 Glucose 98 (74-106) mg/dL Calcium 9.3 (8.5-10.1) mg/dL Total Bilirubin 0.7 (0.2-1.0) mg/dL AST 24 (15-37) U/L ALT 19 (14-59) U/L Alkaline Phosphatase 59 (46-116) U/L Total Protein 7.5 (6.4-8.2) g/dL Albumin 3.7 (3.4-5.0) g/dL Globulin 3.8 g/dL Albumin/Globulin Ratio 1.0 Urine Color Lt. yellow (YELLOW) Urine Clarity Sl cloudy (CLEAR) Urine pH 6.0 (5.0-9.0) Ur Specific [place] 1.020 (1.005-1.025) Urine Protein Negative (NEG/TRACE) mg/dL Urine Glucose (UA) Negative (NEGATIVE) mg/dL Urine Ketones Negative (NEGATIVE) mg/dL Urine Occult Blood Trace-i (NEGATIVE) Urine Nitrite Positive A (NEGATIVE) Urine Bilirubin Negative (NEGATIVE) Urine Urobilinogen 0.2 (0.2-1.0) EU/dL Ur Leukocyte Esterase Moderate A (NEGATIVE) Urine RBC 2-5 A (0-2) #/HPF Urine WBC 20-50 A (NONE SEEN) #/HPF Ur Squamous Epith Cells Few A (NONE/RARE) #/LPF Urine Crystals None seen (None Seen) #/HPF Urine Bacteria Small A (NONE SEEN) #/HPF Urine Casts None seen (NONE SEEN) #/LPF Urine Mucus Trace A (NONE SEEN) Ur Culture Indicated? Yes-[facility] [place] POC Glucose 105 (74-106) mg/dL Imaging Data CT scan - head: Attestation: I have reviewed the pertinent imaging results. Radiologist's impression: ITS Impressions Head CT 01/09/25 18:18 IMPRESSION: No acute intracranial pathology. 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 Impression dictated by: Avinash Nicole M.D. 01/09/2025 7:05 PM Dictation Location: [place] [address] Electronically authenticated by: [id number] Y Date: 01/09/2025 19:05 Head CTA 01/09/25 19:12 IMPRESSION: There is severe narrowing of the distal aspect of the right middle cerebral artery M1 segment near the bifurcation which may be atherosclerotic in nature or secondary to a subocclusive thrombus. There is significant narrowing of M2 branch of the of the left middle cerebral artery near the anterior aspect of the sylvian fissure which may represent atherosclerotic change or subocclusive thrombus. Calcified plaque is noted in the carotid bifurcations with approximately 50% stenosis of proximal left internal carotid artery and less than 20% stenosis in the proximal left internal carotid artery. Impression dictated by: Avinash Nicole M.D. 01/09/2025 9:22 PM Dictation Location: [facility] Electronically authenticated by: [id number] Y Date: 01/09/2025 21:22 Neck CTA 01/09/25 19:12 IMPRESSION: There is severe narrowing of the distal aspect of the right middle cerebral artery M1 segment near the bifurcation which may be atherosclerotic in nature or secondary to a subocclusive thrombus. There is significant narrowing of M2 branch of the of the left middle cerebral artery near the anterior aspect of the sylvian fissure which may represent atherosclerotic change or subocclusive thrombus. Calcified plaque is noted in the carotid bifurcations with approximately 50% stenosis of proximal left internal carotid artery and less than 20% stenosis in the proximal left internal carotid artery. Impression dictated by: Avinash Nicole M.D. 01/09/2025 9:22 PM Dictation Location: [facility] Electronically authenticated by: [id number] Y Date: 01/09/2025 21:22 Discharge Plan Discharge Chief Complaint: Altered Mental Status Clinical Impression: Aphasia, Malignant hypertension, Acute UTI Patient Disposition: Admitted as Observation Discharge Date/Time: 01/10/25 00:29 Documented by User: Ronald Bo MD 01/09/25 23:02 HPI HPI - General Adult General Chief complaint: Altered Mental Status Stated complaint: HARD TIME FILLING IN SENTENCES Time Seen by Provider: 01/09/25 18:00 Related Data Home Medications ?Medication ?Instructions ?Recorded ?Confirmed aspirin 81 mg tablet,delayed 81 mg PO .COMPLEX 10/23/22 01/10/25 release (Adult Low Dose Aspirin) fenofibrate 54 mg tablet 54 mg PO DAILY 10/23/22 01/10/25 levothyroxine 112 mcg tablet 112 mcg PO DAILY 10/23/22 01/09/25 metoprolol tartrate 50 mg tablet 50 mg PO DAILY 10/23/22 01/10/25 apixaban 5 mg tablet (Eliquis) mg PO Q12H 08/14/24 atorvastatin 40 mg tablet 40 mg 08/14/24 levetiracetam 500 mg tablet 500 mg PO 08/14/24 levothyroxine 100 mcg tablet mcg 01/09/25 (Synthroid) valsartan 320 mg tablet mg 01/09/25 Allergies Allergy/AdvReac Type Severity Reaction Status Date / Time amlodipine (From Norvasc) Allergy Severe Rash Verified 01/09/25 17:54 ciprofloxacin Allergy Severe Rash Verified 01/09/25 17:54 clonidine (From [facility]) Allergy Severe Rash Verified 01/09/25 17:54 lisinopril Allergy Severe Rash Verified 01/09/25 17:54 Jmkonak-FVP-HjG Reductase Allergy Severe Rash Verified 01/09/25 17:54 Inhibitor hydralazine Allergy Unknown Verified 01/09/25 17:54 medro dose pack Allergy Severe Rash Uncoded 01/09/25 17:54 Opioid HPI Opioid Management Most Recent Opioid Data: Last Pain Scale 4 08/14/24, 10:08 [facility] Medical History (Updated 01/09/25 @ 23:02 by Ronald Bo MD) Stroke ?I63.9 - Cerebral infarction, unspecified (ICD-10) Hypothyroidism ?E03.9 - Hypothyroidism, unspecified (ICD-10) Hypertension ?I10 - Essential (primary) hypertension (ICD-10) Surgical History (Updated 01/09/25 @ 17:58 by Nay Gonzalez RN) Hx of cardiac cath ?Z98.890 - Other specified postprocedural states (ICD-10) Social History Little interest or pleasure in doing things: not at all Feeling down, depressed, or hopeless: not at all Exam Constitutional Vital Signs, click to edit/add: Last Vital Signs Temp 98.4 F 01/09/25 17:47 Pulse 54 L 01/10/25 00:02 Resp 17 01/10/25 00:02 BP 161/69 H 01/10/25 00:02 Pulse Ox 99 01/09/25 17:47 O2 Del Method Room Air 01/09/25 17:47 Course Vital Signs Vital signs: Vital Signs Temperature 98.4 F 01/09/25 17:47 Pulse Rate 88 10/14/25 17:47 Respiratory Rate 18 01/09/25 17:47 Blood Pressure 208/91 H 01/09/25 17:47 Pulse Oximetry 99 01/09/25 17:47 Oxygen Delivery Method Room Air 01/09/25 17:47 Temperature 98.4 F 01/09/25 17:47 Pulse Rate 54 L 01/10/25 00:02 Respiratory Rate 17 01/10/25 00:02 Blood Pressure 161/69 H 01/10/25 00:02 Pulse Oximetry 99 01/09/25 17:47 Oxygen Delivery Method Room Air 01/09/25 17:47 Medical Decision Making MDM Narrative Medical decision making narrative: This is an 84-year-old female that presented to the emergency department with complaints of an episode of aphasia when attempting to speak with her daughter at about 4 PM that lasted about 10 to 15 minutes. She does have a history of stroke a year ago and currently is taking Eliquis and aspirin. She also had seizures the day the stroke was diagnosed and has been on Keppra since as well. She does have some residual left-sided deficits, mostly with her vision in her left eye. On arrival patient is in no distress, no neurological defects noted. She has 5/5 strength in her bilateral upper and lower extremities. She moves all 4 extremities equally. Sensation is intact with light touch distally to bilateral upper and lower extremities. GCS 15. No aphasia on exam. No involuntary movements. Negative pronator drift. Negative [id number]-[id number]. Negative rapid alternating movements CT head negative for acute intercranial hemorrhage. Remote infarct in the right occipital lobe. BP still elevated on repeat systolic 213/78. care transferred at end of [place] shift. [place] [facility]. He requested to have her scan pushed over for him to read. He called back and felt the patient could remain here. Recommend MRI in AM. Discussed with the hospitalist Dr Davis and patient accepted to obs bed Lab Data Labs: Lab Results 01/09/25 01/09/25 01/09/25 Range/Units 18:01 18:40 19:25 WBC 7.5 (4.0-11.0) 10^3/uL RBC 4.46 (4.20-5.40) 10^6/uL Hgb 13.5 (12.0-16.0) g/dL Hct 37.9 (36.0-48.0) % MCV 85.0 (81.0-99.0) fL MCH 30.3 (26.7-34.0) pg MCHC 35.6 H (29.9-35.2) g/dL RDW 13.9 (11.0-15.0) % Plt Count 227 (150-450) 10^3/uL MPV 9.3 L (9.5-13.5) fL Neut % (Auto) 49.8 (43.0-75.0) % Lymph % (Auto) 35.7 (20.5-60.0) % [place] % (Auto) 11.3 (1.7-12.0) % Eos % (Auto) 2.4 (0.9-7.0) % Baso % (Auto) 0.5 (0.2-2.0) % Neut # (Auto) 3.8 (1.4-6.5) 10^3/uL Lymph # (Auto) 2.7 (1.2-3.8) 10^3/uL [place] # (Auto) 0.9 H (0.3-0.8) 10^3/uL Eos # (Auto) 0.2 (0.0-0.7) 10^3/uL Baso # (Auto) 0.0 (0.0-0.1) 10^3/uL Abs Immat Gran (auto) 0.02 (0.00-0.03) 10^3/uL Imm/Tot Granulo (auto) 0.3 (0.0-0.5) % Sodium 129 L (136-145) mmol/L Potassium 4.4 (3.5-5.1) mmol/L Chloride 92 L (98-107) mmol/L Carbon Dioxide 28.9 (21.0-32.0) mmol/L Anion Gap 12.5 BUN 27.0 H (7.0-18.0) mg/dL Creatinine 1.25 H (0.55-1.02) mg/dL Est GFR ( Amer) 49 L (>=60 mL/min/1.73m^2) Est GFR (Non-Af Amer) 41 L (>=60 mL/min/1.73m^2) BUN/Creatinine Ratio 21.6 Glucose 98 (74-106) mg/dL Calcium 9.3 (8.5-10.1) mg/dL Total Bilirubin 0.7 (0.2-1.0) mg/dL AST 24 (15-37) U/L ALT 19 (14-59) U/L Alkaline Phosphatase 59 (46-116) U/L Total Protein 7.5 (6.4-8.2) g/dL Albumin 3.7 (3.4-5.0) g/dL Globulin 3.8 g/dL Albumin/Globulin Ratio 1.0 Urine Color Lt. yellow (YELLOW) Urine Clarity Sl cloudy (CLEAR) Urine pH 6.0 (5.0-9.0) Ur Specific [place] 1.020 (1.005-1.025) Urine Protein Negative (NEG/TRACE) mg/dL Urine Glucose (UA) Negative (NEGATIVE) mg/dL Urine Ketones Negative (NEGATIVE) mg/dL Urine Occult Blood Trace-i (NEGATIVE) Urine Nitrite Positive A (NEGATIVE) Urine Bilirubin Negative (NEGATIVE) Urine Urobilinogen 0.2 (0.2-1.0) EU/dL Ur Leukocyte Esterase Moderate A (NEGATIVE) Urine RBC 2-5 A (0-2) #/HPF Urine WBC 20-50 A (NONE SEEN) #/HPF Ur Squamous Epith Cells Few A (NONE/RARE) #/LPF Urine Crystals None seen (None Seen) #/HPF Urine Bacteria Small A (NONE SEEN) #/HPF Urine Casts None seen (NONE SEEN) #/LPF Urine Mucus Trace A (NONE SEEN) Ur Culture Indicated? Yes-[facility] [place] POC Glucose 105 (74-106) mg/dL Imaging Data CT scan - head: Radiologist's impression: ITS Impressions Head CT 01/09/25 18:18 IMPRESSION: No acute intracranial pathology. 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 Impression dictated by: Avinash Nicole M.D. 01/09/2025 7:05 PM Dictation Location: [place] [address] Electronically authenticated by: [id number] Y Date: 01/09/2025 19:05 Head CTA 01/09/25 19:12 IMPRESSION: There is severe narrowing of the distal aspect of the right middle cerebral artery M1 segment near the bifurcation which may be atherosclerotic in nature or secondary to a subocclusive thrombus. There is significant narrowing of M2 branch of the of the left middle cerebral artery near the anterior aspect of the sylvian fissure which may represent atherosclerotic change or subocclusive thrombus. Calcified plaque is noted in the carotid bifurcations with approximately 50% stenosis of proximal left internal carotid artery and less than 20% stenosis in the proximal left internal carotid artery. Impression dictated by: Avinash Nicole M.D. 01/09/2025 9:22 PM Dictation Location: [facility] Electronically authenticated by: [id number] Y Date: 01/09/2025 21:22 Neck CTA 01/09/25 19:12 IMPRESSION: There is severe narrowing of the distal aspect of the right middle cerebral artery M1 segment near the bifurcation which may be atherosclerotic in nature or secondary to a subocclusive thrombus. There is significant narrowing of M2 branch of the of the left middle cerebral artery near the anterior aspect of the sylvian fissure which may represent atherosclerotic change or subocclusive thrombus. Calcified plaque is noted in the carotid bifurcations with approximately 50% stenosis of proximal left internal carotid artery and less than 20% stenosis in the proximal left internal carotid artery. Impression dictated by: Avinash Nicole M.D. 01/09/2025 9:22 PM Dictation Location: [facility] Electronically authenticated by: [id number] Y Date: 01/09/2025 21:22 Discharge Plan Discharge Chief Complaint: Altered Mental Status Clinical Impression: Aphasia, Malignant hypertension, Acute UTI Patient Disposition: Admitted as Observation Discharge Date/Time: 01/10/25 00:29
--- NOTE | 2025-01-09 18:18 | CT_ITS ---
The [address] [address] Patient Name: SYMONE BURT MRN: [id number] date: 1940 Sex: F Assigned Patient Location: ER Current Patient Location: ER Accession/Order Number: [id number] Exam Date: 01/09/2025 18:41 Report Date: 01/09/2025 19:05 At the request of: AIRAM CANALES Procedure: CT head/brain wo con CT head/brain wo con 01/09/2025 6:45 PM SIGNS AND SYMPTOMS: ^Transient aphasia, prior CVA TECHNIQUE:Multi-detector CT axial slices of the brain were obtained without IV contrast. CT was performed with one or more of the following dose reduction techniques: Automated exposure control, adjustment of the mA and/or kV according to patient size, or use of iterative reconstruction technique. COMPARISON: 02/05/2024 FINDINGS: There is no shift of the midline structures, acute intracranial bleeding, mass effects, or evidence of acute ischemia. Atherosclerotic changes are noted in the V4 segment of the right vertebral artery and intracranial segments of the internal carotid arteries. There is age-related cortical atrophy with periventricular white matter hypoattenuation. Gliosis and encephalomalacia is noted in the right occipital lobe consistent with a remote infarct. The ventricular system is normal in size. The brainstem and the cerebellum are unremarkable. The visualized intraorbital contents, the visualized paranasal sinuses, and the infratemporal soft tissues show no acute abnormality. The osseous structures in the skull base and the calvarium show no abnormality. CT/CT head/brain wo con IMPRESSION: No acute intracranial pathology. 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 Impression dictated by: Avinash Nicole M.D. 01/09/2025 7:05 PM Dictation Location: [place] [address] Electronically authenticated by: [id number] Y Date: 01/09/2025 19:05
--- NOTE | 2025-01-09 18:23 | PC.NURSE ---
Pt presents to ER with her daughter after a brief episode at home where she was unable to form her sentences Per patient and her daughter at bedside sate that around 1600 patient was speaking to her daughter when she became only to get several words out and not sentences Pt and her daughter both deny any other symptoms or deficits present Pts daughter states this lasted 10-15 minutes Pt has had a stroke in the past pt states she feels normal again at this time and has no complaints
[2025-01-09 18:46] LABS: Hematocrit 37.9 % (36.0-48.0); Hemoglobin 13.5 g/dL (12.0-16.0); Immature Granulocytes Abs Auto 0.02 10^3/uL (0.00-0.03); Immature Granulocytes Pct Auto 0.3 % (0.0-0.5); Lymphocytes Absolute Auto 2.7 10^3/uL (1.2-3.8); Mean Corpuscular HGB Conc 35.6 g/dL (29.9-35.2); Mean Corpuscular Hemoglobin 30.3 pg (26.7-34.0); Mean Corpuscular Volume 85.0 fL (81.0-99.0); Platelet Count 227 10^3/uL (150-450); Red Blood Count 4.46 10^6/uL (4.20-5.40); White Blood Count 7.5 10^3/uL (4.0-11.0)
[2025-01-09 19:03] LABS: Alanine Aminotransferase 19 U/L (14-59); Albumin Globulin Ratio 1.0; Albumin Level 3.7 g/dL (3.4-5.0); Alkaline Phosphatase 59 U/L (46-116); Anion Gap 12.5; Aspartate Amino Transferase 24 U/L (15-37); Blood Urea Nitrogen 27.0 mg/dL (7.0-18.0); Calcium 9.3 mg/dL (8.5-10.1); Carbon Dioxide 28.9 mmol/L (21.0-32.0); Chloride 92 mmol/L (98-107); Estimated GFR (African America 49 (>=60 mL/min/1.73m^2); Estimated GFR (Non-African Ame 41 (>=60 mL/min/1.73m^2); Globulin 3.8 g/dL; Glucose 98 mg/dL (74-106); Potassium 4.4 mmol/L (3.5-5.1); Sodium 129 mmol/L (136-145); Total Protein 7.5 g/dL (6.4-8.2)
--- NOTE | 2025-01-09 19:12 | CT_ITS ---
The [address] [address] Patient Name: SYMONE BURT MRN: [id number] date: 1940 Sex: F Assigned Patient Location: ER Current Patient Location: [facility] Accession/Order Number: [id number] Exam Date: 01/09/2025 20:31 Report Date: 01/09/2025 21:22 At the request of: AIRAM CANALES Procedure: CT angio neck CT angio head, CT angio neck 01/09/2025 8:41 PM SIGNS AND SYMPTOMS: ^Transient aphasia, Previous stroke CONTRAST: TECHNIQUE: Multi-detector CT angiography axial slices of the head were obtained before and during intravenous administration of IV contrast material. Sagittal, coronal, and 3-D reconstructions were performed and viewed on a separate workstation. CT was performed with one or more of the following dose reduction techniques: Automated exposure control, adjustment of the mA and/or kV according to patient size, or use of iterative reconstruction technique. Stenoses were measured using the NASCET criteria. COMPARISON: None. FINDINGS: CTA HEAD: The superior cerebellar arteries, posterior inferior cerebellar arteries, and the basilar artery are within normal limits. The posterior cerebral arteries are unremarkable. The intracranial segments of the internal carotid arteries are within normal limits. There is severe narrowing of the distal aspect of the right middle cerebral artery M1 segment near the bifurcation which may be atherosclerotic in nature or secondary to a subocclusive thrombus. There is significant narrowing of M2 branch of the of the left middle cerebral artery near the anterior aspect of the sylvian fissure which may represent atherosclerotic change or subocclusive thrombus. There are normal anterior cerebral arteries. Anterior communicating artery is patent. Posterior communicating arteries are present. The deep venous system and dural venous systems appear to be patent. No bony abnormalities are appreciated. CTA NECK: Atherosclerotic changes are noted in the thoracic aorta and origins of the great vessels.. The subclavian arteries are within normal limits. The vertebral arteries arise from the subclavian arteries and are normal in course and caliber up to the skull base. Calcified plaque is noted in the carotid bifurcations with approximately 50% stenosis of proximal left internal carotid artery and less than 20% stenosis in the proximal left internal carotid artery. Visualized lung parenchyma is clear. Calcified lymph nodes are noted in the mediastinum. No acute bony abnormalities are identified. The paraspinous soft tissues are within normal limits. CT/CT angio neck IMPRESSION: There is severe narrowing of the distal aspect of the right middle cerebral artery M1 segment near the bifurcation which may be atherosclerotic in nature or secondary to a subocclusive thrombus. There is significant narrowing of M2 branch of the of the left middle cerebral artery near the anterior aspect of the sylvian fissure which may represent atherosclerotic change or subocclusive thrombus. Calcified plaque is noted in the carotid bifurcations with approximately 50% stenosis of proximal left internal carotid artery and less than 20% stenosis in the proximal left internal carotid artery. Impression dictated by: Avinash Nicole M.D. 01/09/2025 9:22 PM Dictation Location: [place] [address] Electronically authenticated by: [id number] Y Date: 01/09/2025 21:22
--- NOTE | 2025-01-09 19:12 | CT_ITS ---
The [address] [address] Patient Name: SYMONE BURT MRN: [id number] date: 1940 Sex: F Assigned Patient Location: ER Current Patient Location: [facility] Accession/Order Number: [id number] Exam Date: 01/09/2025 20:31 Report Date: 01/09/2025 21:22 At the request of: AIRAM CANALES Procedure: CT angio neck CT angio head, CT angio neck 01/09/2025 8:41 PM SIGNS AND SYMPTOMS: ^Transient aphasia, Previous stroke CONTRAST: TECHNIQUE: Multi-detector CT angiography axial slices of the head were obtained before and during intravenous administration of IV contrast material. Sagittal, coronal, and 3-D reconstructions were performed and viewed on a separate workstation. CT was performed with one or more of the following dose reduction techniques: Automated exposure control, adjustment of the mA and/or kV according to patient size, or use of iterative reconstruction technique. Stenoses were measured using the NASCET criteria. COMPARISON: None. FINDINGS: CTA HEAD: The superior cerebellar arteries, posterior inferior cerebellar arteries, and the basilar artery are within normal limits. The posterior cerebral arteries are unremarkable. The intracranial segments of the internal carotid arteries are within normal limits. There is severe narrowing of the distal aspect of the right middle cerebral artery M1 segment near the bifurcation which may be atherosclerotic in nature or secondary to a subocclusive thrombus. There is significant narrowing of M2 branch of the of the left middle cerebral artery near the anterior aspect of the sylvian fissure which may represent atherosclerotic change or subocclusive thrombus. There are normal anterior cerebral arteries. Anterior communicating artery is patent. Posterior communicating arteries are present. The deep venous system and dural venous systems appear to be patent. No bony abnormalities are appreciated. CTA NECK: Atherosclerotic changes are noted in the thoracic aorta and origins of the great vessels.. The subclavian arteries are within normal limits. The vertebral arteries arise from the subclavian arteries and are normal in course and caliber up to the skull base. Calcified plaque is noted in the carotid bifurcations with approximately 50% stenosis of proximal left internal carotid artery and less than 20% stenosis in the proximal left internal carotid artery. Visualized lung parenchyma is clear. Calcified lymph nodes are noted in the mediastinum. No acute bony abnormalities are identified. The paraspinous soft tissues are within normal limits. CT/CT angio head IMPRESSION: There is severe narrowing of the distal aspect of the right middle cerebral artery M1 segment near the bifurcation which may be atherosclerotic in nature or secondary to a subocclusive thrombus. There is significant narrowing of M2 branch of the of the left middle cerebral artery near the anterior aspect of the sylvian fissure which may represent atherosclerotic change or subocclusive thrombus. Calcified plaque is noted in the carotid bifurcations with approximately 50% stenosis of proximal left internal carotid artery and less than 20% stenosis in the proximal left internal carotid artery. Impression dictated by: Avinash Nicole M.D. 01/09/2025 9:22 PM Dictation Location: [place] [address] Electronically authenticated by: [id number] Y Date: 01/09/2025 21:22
[2025-01-09 19:53] LABS: Glucose Urine UA NEGATIVE (NEGATIVE)
[2025-01-09 20:01] LABS: Cast Seen? NONE SEEN #/LPF (NONE SEEN); Crystals Seen? None Seen #/HPF (None Seen); Urine Culture Indicated YES-FRMC
[2025-01-09] MEDS: NICARDIPINE IN NACL, ISO-OSM 40 MG/200 ML PIGGYBACK 25 MG IV (20:12)
--- NOTE | 2025-01-09 23:16 | ECG_ITS ---
The [facility] Test Date: 2025-01-10 Pat Name: SYMONE BURT Department: Room: [facility] Gender: Female It Systems Analyst Consultant: : 1940 Requested By: [id number] Order Number: [id number] Reading MD: HELENE KEANE M.D. Measurements Intervals [place] Rate: 54 P: -30 AR: 194 QRS: -58 QRSD: 94 T: 59 QT: 438 QTc: 425 Interpretive Statements 1100 Sinus rhythm 2440 Incomplete right bundle branch block 2630 Left anterior fascicular block 8003 Consistent with pulmonary disease 8102 Low QRS voltage in chest leads 9150 abnormal ECG Compared to ECG 01/09/2025 18:02:37 First degree AV block no longer present Electronically Signed On 01-10-2025 7:39:15 EDT by HELENE KEANE M.D.
--- NOTE | 2025-01-09 23:32 | P.EN_ITS ---
Event Note Event Note: Night hospitalist coverage I was asked by Er doc to admit pt after he had discussed her case and findings on CTA with stroke neuro team and cleared pt to be admitted at [facility] and no need for thrombolysis or mechanical thrombectomy. He recommended a continuation of home Eliquis and ASA. Her NIH is 0 as per report
[2025-01-10] VITALS (71 sets, daily range): BP systolic 140–217; BP diastolic 48–114; PULSE 52–77; TEMP 36.6; O2SAT 97–98; BMI 22.1
--- NOTE | 2025-01-10 | MR_ITS ---
The [address] [address] Patient Name: SYMONE BURT MRN: [id number] date: 1940 Sex: F Assigned Patient Location: [place] Current Patient Location: [place] Accession/Order Number: [id number] Exam Date: 01/10/2025 11:45 Report Date: 01/10/2025 16:10 At the request of: CHELSIE PARADA MD Procedure: MR angio head wo con MR angio head wo con 01/10/2025 1:02 PM SIGN OF SYMPTOMS: Occlusive disease seen on CTA PROTOCOL: Axial 3-D [id number] MRA with 3-D reconstructions COMPARISON: None. FINDINGS: The superior cerebellar arteries, posterior inferior cerebellar arteries, and the basilar artery are within normal limits. The posterior cerebral arteries are patent with significant focal narrowing of the T1 segments bilaterally, left greater than right. The intracranial segments of the internal carotid arteries are within normal limits. There is narrowing of the right middle cerebral artery M1 segment near the bifurcation. There are normal anterior and middle cerebral arteries , otherwise. Anterior communicating artery is patent. Posterior communicating arteries are hypoplastic bilaterally which is a normal variant. The deep venous system and dural venous systems appear to be patent. MR/MR angio head wo con IMPRESSION: There is significant focal narrowing of the P1 segments of the posterior cerebral arteries bilaterally. This is similar to the prior exam. There is narrowing of the right middle cerebral artery M1 segment near the bifurcation. This is similar to the prior exam. No aneurysm dilatation, dissection, or occlusion Impression dictated by: Avinash Nicole M.D. 01/10/2025 4:10 PM Dictation Location: [place] [address] Electronically authenticated by: [id number] Y Date: 01/10/2025 16:10
--- NOTE | 2025-01-10 | MR_ITS ---
The [address] [address] Patient Name: SYMONE BURT MRN: [id number] date: 1940 Sex: F Assigned Patient Location: [place] Current Patient Location: [place] Accession/Order Number: [id number] Exam Date: 01/10/2025 11:40 Report Date: 01/10/2025 14:24 At the request of: CHELSIE PARADA MD Procedure: MR head/brain wo con EXAMINATION: MRI OF THE BRAIN WITHOUT CONTRAST CLINICAL HISTORY: TIA altered mental status COMPARISON: CT head 01/09/2025 TECHNIQUE: Multiecho, multiplanar imaging of the brain was performed without contrast FINDINGS: No restricted diffusion. Remote right GARMENT LOOPER distribution stroke with resultant encephalomalacia. Otherwise mild central involutional changes and moderate chronic small vessel ischemic disease. No shift of midline structure. Basal cisterns are patent. No abnormal GRE signal. Mild paranasal sinus mucosal thickening. Cataract surgery. MR/MR head/brain wo con IMPRESSION: MODERATE CHRONIC SMALL VESSEL ISCHEMIC DISEASE WITHOUT EVIDENCE OF REMOTE RIGHT GARMENT LOOPER DISTRIBUTION INFARCT/ENCEPHALOMALACIA. NEGATIVE FOR ACUTE INTRACRANIAL PROCESS BY MRI. Impression dictated by: Charli Ferrera M.D. 01/10/2025 2:24 PM Dictation Location: [place] [address] Electronically authenticated by: [id number] Y Date: 01/10/2025 14:24
--- OUTSIDE RECORDS SUMMARY | 2025-01-10 00:39 | XMS_ITS | Encounter Summary ---
Author Organization [facility] Address [address] [place] [address] Phone Care Team Providers Care State Director Name Role Phone Hoda Talbot MD Primary Care Provider [phone] Encounter Details Date Type Department Care Team (Late st Contact Info) Description 05/22/2024 Scanned Document [facility] [address] [place] [id number] Scanning, Generic Provider Social History Tobacco Use Types Packs/Day Years Used Date Smoking Tobacco: Former Cigarettes Q uit: 1970 Smokeless Tobacco: Never Alcohol Use Standard Drinks/Week Comments Never 0 (1 standard drink = 0.6 oz pur e alcohol) Comments Unknown Sex and Gender Information Value Date Recorded Sex Assigned at Not on file Legal Sex Female 2:08 PM EST Gender Identity Not on file Sexual Orientation Not on file COVID-19 Exposure Response Date Recorded In the last 10 days, have yo u been in contact with someone who was confirmed or suspected to have Coronavirus/COVID-19? No / Unsure 05/25/2024 10:13 AM EST documented as of this encounter Functional Status * BP Answer Date of Assessment Author 148/82 05/25/2024 10:28 AM EST Tiago Nava MA * Pulse Answer Date of Assessment Author 60 05/25/2024 10:25 AM EST Tiago Nava MA * Communicable Disease Screening Question Answer Date of Assessment Author Do you have any of the following new or worsening symptoms? None of these 05/25/2024 10:13 AM EST Melissa Palafox documented as of this encounter Plan of Treatment Upcoming Encounters Date Type Department Care Team (Late st Contact Info) Description 04/03/2025 2:00 PM EST Office Visit [facility] [address] [facility] [address] [place] [address] Meera Avalos, TELEPHONE CLERK-RETAIL SALES MERCHANDISER DEVELOPMENT [address] [facility] [address] [place] [address] documented as of this encounter Visit Diagnoses Not on filedocumented in this encounter Additional Health Concerns Assessment Noted Time A fall risk assessment has been complete d for the patient 01/18/2024 11:21 AM EDT documented as of this encounter Care Teams State Director Relationship Specialty Start Date End Date Hoda Talbot MD [address] [place] [address] [place] [address] PCP - General 03/29/1998 documented as of this encounter
--- OUTSIDE RECORDS SUMMARY | 2025-01-10 00:39 | XMS_ITS | Encounter Summary ---
Author Organization [facility] Address [address] [place] [address] Phone Care Team Providers Care Intel Analyst Name Role Phone Hoda Talbot MD Primary Care Provider [phone] Encounter Details Date Type Department Care Team (Late st Contact Info) Description 02/05/2022 Orders Only [facility] [address] [place] [address] Conversion, Onbase Social History Tobacco Use Types Packs/Day Years Used Date Smoking Tobacco: Never Assessed Comments Unknown Sex and Gender Information Value Date Recorded Sex Assigned at Not on file Legal Sex Female 2:08 PM EST Gender Identity Not on file Sexual Orientation Not on file documented as of this encounter Plan of Treatment Upcoming Encounters Date Type Department Care Team (Late st Contact Info) Description 04/03/2025 2:00 PM EST Office Visit [facility] [address] [facility] [address] [place] [address] Meera Avalos, RN [facility] [address] [facility] [address] [place] [address] Scheduled Orders Name Type Priority Associated Diagnoses Orde r Schedule OUTSIDE LAB SCAN Lab Ordered: 02/05/2022 documented as of this encounter Visit Diagnoses Not on filedocumented in this encounter Care Teams Intel Analyst Relationship Specialty Start Date End Date Hoda Talbot MD [address] [place] [address] [place] [address] PCP - General 03/29/1998 documented as of this encounter
--- OUTSIDE RECORDS SUMMARY | 2025-01-10 00:39 | XMS_ITS | Encounter Summary ---
Author Organization [facility] Address [address] [place] [address] Phone Care Team Providers Care Reinforcing Bar Setter Name Role Phone Hoda Talbot MD Primary Care Provider [phone] Encounter Details Date Type Department Care Team (Late st Contact Info) Description 10/29/2020 Orders Only [facility] [address] [place] [address] Conversion, Onbase Social History Tobacco Use Types [...] Description 04/03/2025 2:00 PM EST Office Visit [facility] [address] [facility] [address] [place] [address] Meera Avalos, OVERHEAD LINE WORKER-AMPLIFIER MECHANIC [address] [facility] [address] [place] [address] Scheduled Orders Name Type Priority Associated Diagnoses Orde r Schedule OUTSIDE LAB SCAN Lab Ordered: 10/29/2020 documented as of this encounter Visit Diagnoses Not on filedocumented in this encounter Care Teams Reinforcing Bar Setter Relationship Specialty Start Date End Date Hoda Talbot MD [address] [place] [address] [place] [address] PCP - General 03/29/1998 documented as of this encounter
--- OUTSIDE RECORDS SUMMARY | 2025-01-10 00:39 | XMS_ITS | Encounter Summary ---
Author Organization [facility] Address [address] [place] [address] Phone Care Team Providers Care Manager Architectural Name Role Phone Hoda Talbot MD Primary Care Provider [phone] Encounter Details Date Type Department Care Team (Late st Contact Info) Description 02/07/2020 Orders Only [facility] [address] [place] [address] Conversion, Onbase Social History Tobacco Use Types [...] Description 04/03/2025 2:00 PM EST Office Visit [facility] [address] [address] Meera Avalos, ROLLER GOLD LEAF-PRODUCTION GRIP [address] [facility] [address] [place] [address] Scheduled Orders Name Type Priority Associated Diagnoses Orde r Schedule OUTSIDE LAB SCAN Lab Ordered: 02/07/2020 documented as of this encounter Visit Diagnoses Not on filedocumented in this encounter Care Teams Manager Architectural Relationship Specialty Start Date End Date Hoda Talbot MD [address] [place] [address] [address] [place] [id number] PCP - General 03/29/1998 documented as of this encounter
--- OUTSIDE RECORDS SUMMARY | 2025-01-10 00:39 | XMS_ITS | Clinical Summary ---
Author Organization [facility] Address [address] [place] [address] Care Team Providers Care Configuration Release Manager Name Role Phone Hoda Talbot MD Primary Care Provider [phone] Allergies Active Allergy Reactions Criticality Noted Date Comments Aidan Inhibitors Rash Low 12/16/2022 Other Reaction(s): Unknown, Unknown Reaction Amlodipine Itching Low 12/16/2022 Other Reaction(s): Unknown, Unknown Reaction Ciprofloxacin 12/22/2023 Other Reaction(s): Comment:joint pain Clonidine Shortness of breath High 12/16/2022 Other Reaction(s): Unknown Reaction Hydralazine Diarrhea Low 12/16/2022 Other Reaction(s): Unknown, Unknown Reaction Methylprednisolone Anaphylaxis High 12/16/2022 Other Reaction(s): Unknown Reaction Simvastatin 03/06/2024 Other Reaction(s): Unknown Sulfamethoxazole Rash Low 12/16/2022 Sulfamethoxazole-Trimethopr im 03/06/2024 Other Reaction(s): Unknown Medications apixaban (Eliquis) 5 MG tablet Take 5 mg by mouth in the morning and 5 mg in the evening. 02/16/2024 Active aspirin 81 MG EC tablet Take 81 mg by mouth in the morning. Active butalbital-acet aminophen-caffe ine (Fioricet) 50-300-40 MG capsule TAKE 1 CAPSULE BY MOUTH EVERY 6 HOURS NEEDED FOR PAIN FOR 5 DAYS 02/05/2024 Active cefdinir (Omnicef) 300 MG capsule Take 300 mg by mouth in the morning and 300 mg before bedtime. 02/17/2024 Active fenofibrate (Tricor) 54 MG tablet Take 54 mg by mouth in the morning. 09/27/2023 Active levothyroxine (Synthroid, Levoxyl) 100 MCG tablet Take 100 mcg by mouth in the morning. Take before meals. 12/17/2023 Active losartan (Cozaar) 50 MG tablet Take 50 mg by mouth in the morning. 08/05/2023 Active metoprolol tartrate (Lopressor) 25 MG tablet Take 25 mg by mouth in the morning and 25 mg in the evening. Active atorvastatin (Lipitor) 40 MG tabletIndicatio ns:Ischemic stroke (HCC) Take 1 tablet (40 mg) by mouth Daily 90 tablet 1 04/10/2024 Active levETIRAcetam (Keppra) 500 MG tablet Take 1 tablet by mouth in the morning and 1 tablet before bedtime. 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 Cerebrovascular accident (CVA) 03/06/2024 Social History Tobacco Use Types Packs/Day Years Used Date Smoking Tobacco: Former Cigarettes Smokeless Tobacco: Never Tobacco Cessation:Counseling Given: Not Answered Comments:Quit smoking > 50 years ago Alcohol Use Standard Drinks/Week Comments Never 0 (1 standard drink = 0.6 oz pur e alcohol) Comments Unknown Sex and Gender Information Value Date Recorded Sex Assigned at Not on file Legal Sex Female 6:45 PM EDT Gender Identity Not on file Sexual Orientation Not on file Last Filed Vital Signs Vital Sign Reading Time Taken Comments Blood Pressure 122/68 04/04/2024 1:33 PM EST Pulse 67 04/04/2024 1:33 PM EST Temperature - - Respiratory Rate - - Oxygen Saturation 99% 04/04/2024 1:33 PM EST Inhaled Oxygen Concentration - - Weight 59 kg (130 lb) 04/04/2024 1:33 PM EST Height 162.6 cm (5' 4 ) 04/04/2024 1:33 PM EST Body Mass Index 22.31 04/04/2024 1:33 PM EST Plan of Treatment Not on file Insurance MEDICARE [employer] MEDICARE SUPPLEMENT Care Teams Configuration Release Manager Relationship Specialty Start Date End Date Hoda Talbot MD [address] [facility] [place] [address] PCP - General Family Medicine 03/06/24
--- OUTSIDE RECORDS SUMMARY | 2025-01-10 00:40 | XMS_ITS | Encounter Summary ---
Author Organization [facility] Address [address] [place] [address] Phone Care Team Providers Care Primary Special Education Teacher Name Role Phone Hoad Talbot MD Primary Care Provider [phone] Encounter Details Date Type Department Care Team (Late Contact Info) Description 07/31/2024 Scanned Document [facility] [address] [place] [phone] Scanning, Generic Provider Social History Tobacco Use [...] Description 04/03/2025 2:00 PM EST Office Visit [facility] [address] [facility] [address] [place] [address] Meera Avalos, HEAD OF [facility] [address] [facility] [address] [place], [place] [id number] documented as of this encounter Visit Diagnoses Not on filedocumented in this encounter Additional Health Concerns Assessment Noted Time A fall risk assessment has been complete d for the patient 01/18/2024 11:21 AM EDT documented as of this encounter Care Teams Primary Special Education Teacher Relationship Specialty Start Date End Date Hoda Talbot MD [address] [place] [address] [place] [address] PCP - General 03/29/1998 documented as of this encounter
--- OUTSIDE RECORDS SUMMARY | 2025-01-10 00:40 | XMS_ITS | Patient Health Record ---
Author Organization [facility] [place] Address [address] [place] [address] Care Team Providers Care Guyline Operator Name Role Phone Hoda Talbot Primary Care Provider Unavailabl e Allergies Allergen (clinical drug ingredient) Drug/Non Drug Allergy documented on EMR Reaction Allergy Type Onset Date Status clonidine [id number] Unknown Drug Allergy Ac tive methylprednisolone Medrol (Nestor) Unknown Drug Allergy Active amlodipine Norvasc Unknown Drug Allergy Active lisinopril Lisinopril Unknown Drug Allergy Activ e Substance with 4-opdrxtf-0-methylglutary l-coenzyme A reductase inhibitor mechanism of action (substance) Statins Unknown Drug Allergy Active ciprofloxacin Ciprofloxacin Unknown Drug Allergy Active hydralazine Hydralazine Unknown Drug Allergy Act dashawn Reason For Referral No Information Medications Medication SIG (Take, Route, Frequency, Duration) Notes Start Date End Date Status Levothyroxine Sodium Active Losartan Potassium 25 MG 1 tablet Orally Once a day Active Fenofibrate 54 MG 1 tablet with food O rally Once a day Active Metoprolol Tartrate 50 MG 1 tablet with food Orally Twice a day Active Spironolactone 25 MG 1 tablet Orally Active Aspirin 81 81 MG 1 tablet Orally Once a day Active Plan Of Treatment No Information Insurance Providers Payer Name Payer Address Payer Phone Subscriber Number Group Number Insured Name Patient Relationship to Insured Coverage Start Date Coverage End Date [place] [address] [place] [address] [phone] [id number] Janelle Oro Self - patient is the insured [employer] SUPPLEMENT [address] [address] [place], [place] [id number] Janelle Oro Self - patient is the insured Medical (General) History Medical History History ICD Code hypertension kidney disease high cholesterol
--- OUTSIDE RECORDS SUMMARY | 2025-01-10 00:40 | XMS_ITS | Encounter Summary ---
Author Organization [facility] Address [address] [place] [address] Phone Care Team Providers Care Corporate Executive Chef Name Role Phone Hoda Talbot MD Primary Care Provider [phone] Encounter Details Date Type Department Care Team (Late Contact Info) Description 03/07/2024 Scanned Document [facility] [address] [place] [phone] Scanning, Generic Provider Social History Tobacco Use [...] Encounters Date Type Department Care Team (Late Contact Info) Description 04/03/2025 2:00 PM EST Office Visit [facility] 703 [facility] [address] [place] [address] Meera Avalos, GEOTHERMAL OPERATIONS MANAGER-RESORT DESK CLERK 703 [facility] 2, [address] [place], [place] [id number] documented as of this encounter Procedures Procedure Name Priority Date/Time Associated Diagnosis Comments ECHOCARDIOGRAM 03/07/2024 documented in this encounter Results * Echocardiogram (03/07/2024) Narrative 03/07/2024 Ordered by an unspecified provider. us Generic Provider Scanning CV ECHO PROCEDURES Fin al Result documented in this encounter Visit Diagnoses Not on filedocumented in this encounter Additional Health Concerns Assessment Noted Time A fall risk assessment has been complete d for the patient 01/18/2024 11:21 AM EDT documented as of this encounter Care Teams Corporate Executive Chef Relationship Specialty Start Date End Date Hoda Talbot MD [address] [place] [address] PCP - General 03/29/1998 documented as of this encounter
--- OUTSIDE RECORDS SUMMARY | 2025-01-10 00:40 | XMS_ITS | Encounter Summary ---
Author Organization [facility] Address [address] [place] [address] Phone Care Team Providers Care A Operator Name Role Phone Hoda Talbot MD Primary Care Provider [phone] Encounter Details Date Type Department Care Team (Late st Contact Info) Description 01/27/2023 Scanned Document [facility] [address] [place] [phone] Scanning, Generic Provider Social History Tobacco Use Types Packs/Day Years Used Date Smoking Tobacco: Former Cigarettes Smokeless Tobacco: Never Alcohol Use Standard Drinks/Week [...] suspected to have Coronavirus/COVID-19? No / Unsure 01/14/2023 9:52 AM EDT documented as of this encounter Plan of Treatment Upcoming Encounters Date Type Department Care Team (Late st Contact Info) Description 04/03/2025 2:00 PM EST Office Visit [facility] 703 [facility] [address] [place] [address] Meera Avalos, DRAIN CLEANER-RESIDENTIAL PLUMBER 703 [facility] 2, [address] [place] [address] documented as of this encounter Procedures Procedure Name Priority Date/Time Associated Diagnosis Comments OUTSIDE IMAGING SCAN 01/27/2023 documented in this encounter Results * OUTSIDE IMAGING SCAN (01/27/2023) Anatomical Region Laterality Modality Other Narrative 01/27/2023 Ordered by an unspecified provider. us Generic Provider Scanning OUTSIDE SCAN Final Result documented in this encounter Visit Diagnoses Not on filedocumented in this encounter Additional Health Concerns Assessment Noted Time A fall risk assessment has been complete d for the patient 01/14/2023 10:15 AM EDT documented as of this encounter Care Teams A Operator Relationship Specialty Start Date End Date Hoda Talbot MD [address] [place] [address] PCP - General 03/29/1998 documented as of this encounter
--- OUTSIDE RECORDS SUMMARY | 2025-01-10 00:40 | XMS_ITS | Clinical Summary ---
Author Organization [facility] Address [address] [place] [address] Phone Care Team Providers Care Park Interpretive Specialist Name Role Phone Hoda Talbot MD Primary Care Provider [phone] Allergies Active Allergy Reactions Criticality Noted Date Comments Aidan Inhibitors Rash Low 12/16/2022 Amlodipine Itching Low 12/16/2022 Clonidine Shortness of breath High 12/16/2022 Hydralazine Diarrhea Low 12/16/2022 Lisinopril Rash Low 12/16/2022 Methylprednisolone Anaphylaxis High 12/16/2022 Wlzknya-Afw-Qww Reductase Inhibitors Myalgia High 12/16/2022 Sulfamethoxazole Rash Low 12/16/2022 Medications apixaban (Eliquis) 5 mg tabletIndications:P aroxysmal atrial fibrillation (Multi) Take 1 tablet (5 mg) by mouth 2 times a day. 180 tablet 3 5 04/11/19 26 Active atorvastatin (Lipitor) 40 mg tabletIndications:H yperlipidemia, unspecified hyperlipidemia type Take 1 tablet (40 mg) by mouth once daily. 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 Take before meals. 90 tablet 5 04/11/19 26 Active fenofibrate (Tricor) 54 mg tabletIndications:H yperlipidemia, unspecified hyperlipidemia type Take 1 tablet (54 mg) by mouth once daily. 90 tablet 3 5 04/11/19 26 Active nitroglycerin (Nitrostat) 0.4 mg SL tabletIndications:A SHD (arteriosclerotic heart disease) Place 1 tablet (0.4 mg) under the tongue every 5 minutes if needed for chest pain. Go to ER or call 911 after 3rd dose. 90 tablet 1 5 07/21/19 Active levETIRAcetam (Keppra) 500 mg tablet Take 1 tablet (500 mg) by mouth twice a day. Active aspirin 81 mg EC tabletIndications:A SHD (arteriosclerotic heart disease),Paroxysmal atrial fibrillation (Multi) Take 1 tablet (81 mg) by mouth every other day. Active valsartan (Diovan) 320 mg tabletIndications:E ssential hypertension Take 1 tablet (320 mg) by mouth once daily. 90 tablet 3 5 11/22/19 Active metoprolol tartrate (Lopressor) 50 mg tabletIndications:E ssential hypertension Take 1 tablet by mouth 2 times a day. 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 0 04/05/2024 ASHD (arteriosclerotic heart disease) 01/18/2024 BMI 22.0-22.9, adult 03/10/2023 Essential hypertension 12/16/2022 Assessment & Plan (03/10/2023 1:56 PM EST): Optimal in office with recent changes Chronic renal disease, stage III 12/16/2022 Assessment & Plan (03/10/2023 1:57 PM EST): Recent creatinine 1.4 Follows annually with nephrology Mixed hyperlipidemia 12/16/2022 Hypothyroidism 12/16/2022 Paroxysmal atrial fibrillation (Multi) 3 Assessment & Plan (03/10/2023 1:57 PM EST): Remote history of transient event Recurrent transient atrial fibrillation during January 2023 hospitalization Reports being symptomatic and shaking inside Denies any recurrence Renal artery stenosis 12/16/2022 Former smoker 12/16/2022 Resolved Problems Problem Noted Date Diagnosed Date Resolved Date NSTEMI (non-ST elevated myoc ardial infarction) (Multi) 05/18/2023 05/18/2023 Encounters Date Type Department Care Team Description 11/21/2024 10:30 AM EDT Office Visit [address] [place] [address] Michael Ramos, Essential hypertension; Former smoker; BMI 22.0-22.9, adult 11/21/2024 Travel from Last 3 Months Immunizations Immunization Administration Dates Next Due DTaP vaccine, pediatric (DAPTACEL) 11/02/2014 Family History Medical History Relation Name Comments Pneumonia Brother arteriosclerotic cardiovascular disease Father cerebrovascular accident Father arteriosclerotic cardiovascular disease Mother cerebrovascular accident Mother Cancer Sister Heart attack Sister Kidney disease Sister Relation Name Status Comments Brother Father Mother Sister Social History Tobacco Use Types Packs/Day Years Used Date Smoking Tobacco: Former Cigarettes Q uit: 1970 Smokeless Tobacco: Never Tobacco Cessation:Counseling Given: Not Answered Alcohol Use Standard Drinks/Week Comments Never 0 (1 standard drink = 0.6 oz pur e alcohol) Comments Unknown Sex and Gender Information Value Date Recorded Sex Assigned at Not on file Legal Sex Female 2:08 PM EST Gender Identity Not on file Sexual Orientation Not on file Last Filed Vital Signs Vital Sign Reading Time Taken Comments Blood Pressure 132/74 11/21/2024 10:59 AM EDT Pulse 52 11/21/2024 10:56 AM EDT Temperature - - Respiratory Rate - - Oxygen Saturation - - Inhaled Oxygen Concentration - - Weight 59 kg (130 lb) 11/21/2024 10:56 AM EDT Height 162.6 cm (5' 4 ) 11/21/2024 10:56 AM EDT Body Mass Index 22.31 11/21/2024 10:56 AM EDT Plan of Treatment Upcoming Encounters Date Type Department Care Team (Late st Contact Info) Description 04/03/2025 2:00 PM EST Office Visit [address] [place] [address] Meera Avalos, TEENAGE BABYSITTER-VALVE REPAIRER RECLAMATION 703 [facility] [address] [place] [address] Health Maintenance Due Date Last Done Comments Lipid Panel 1940 TSH Level 1940 Diabetes Screening 11/18/1957 CKD: Urine Protein Screening 11/18/1958 Pneumococcal Vaccine (1 of 2 - PCV) 11/18/1958 Zoster Vaccines (1 of 2) 11/18/1989 Bone Density Scan 11/18/2004 RSV High Risk: (Elderly (60+ ) or Population) (1 - 1-dose 75+ series) 11/18/2014 Medicare Annual Wellness Visit (AWV) 09/18/2021 09/17/2020, 09/05/2019 DTaP/Tdap/Td Vaccines (2 - Tdap) 11/02/2024 11/02/2014 COVID-19 Vaccine (4 - 2024-2 6 season) 2024 03/13/2021, 06/19/2020, 05/23/2020 Influenza Vaccine (#1) 2024 Welcome to Medicare Visit Discontinued 2020, 09/05/2019 HIB Vaccines Aged Out No longer eligi ble based on patient's age to complete this topic HPV Vaccines Aged Out No longer eligi ble based on patient's age to complete this topic Hepatitis A Vaccines Aged Out No long er eligible based on patient's age to complete this topic Hepatitis B Vaccines Aged Out No long er eligible based on patient's age to complete this topic IPV Vaccines Aged Out No longer eligi ble based on patient's age to complete this topic Meningococcal Vaccine Aged Out No clarita davon eligible based on patient's age to complete this topic Rotavirus Vaccines Aged Out No longer eligible based on patient's age to complete this topic Insurance MEDICARE PART A AND B HUMA[employer] MEDICARE SUPPLEMENT Care Teams Park Interpretive Specialist Relationship Specialty Start Date End Date Hoda Talbot MD [address] [place] [address] [place] [address] PCP - General 03/29/1998
--- OUTSIDE RECORDS SUMMARY | 2025-01-10 00:40 | XMS_ITS | Encounter Summary ---
Author Organization [facility] Address [address] [place] [address] Phone Care Team Providers Care Ship Yard Electrical Person Name Role Phone Hoda Talbot MD Primary Care Provider [phone] Encounter Details Date Type Department Care Team (Late Contact Info) Description 07/23/2024 Scanned Document [facility] [address] [place] [phone] Scanning, Generic Provider Social History Tobacco Use [...] Description 04/03/2025 2:00 PM EST Office Visit [facility] [address] [address] Meera Avalos, TAB CUTTING MACHINE OPERATOR-[facility] 703 [facility] 2, [address] [place], [place] [phone] documented as of this encounter Procedures Procedure Name Priority Date/Time Associated Diagnosis Comments OUTSIDE IMAGING SCAN 07/23/2024 ECHOCARDIOGRAM 07/23/2024 documented in this encounter Results * Echocardiogram (07/23/2024) Narrative 07/23/2024 Ordered by an unspecified provider. us Generic Provider Scanning CV ECHO PROCEDURES Fin al Result * OUTSIDE IMAGING SCAN (07/23/2024) Anatomical Region Laterality Modality Other Narrative 07/23/2024 Ordered by an unspecified provider. us Generic Provider Scanning OUTSIDE SCAN Final Result documented in this encounter Visit Diagnoses Not on filedocumented in this encounter Additional Health Concerns Assessment Noted Time A fall risk assessment has been complete d for the patient 01/18/2024 11:21 AM EDT documented as of this encounter Care Teams Ship Yard Electrical Person Relationship Specialty Start Date End Date Hoda Talbot MD [address] [place] [address] PCP - General 03/29/1998 documented as of this encounter
--- OUTSIDE RECORDS SUMMARY | 2025-01-10 00:40 | XMS_ITS | Encounter Summary ---
Author Organization [facility] Address [address] [place] [address] Phone Care Team Providers Care Director Of Software Engineering Name Role Phone Hoda Talbot MD Primary Care Provider [phone] Encounter Details Date Type Department Care Team (Late Contact Info) Description 07/27/2023 Scanned Document [facility] [address] [place] [phone] Scanning, Generic Provider Social History Tobacco Use [...] Description 04/03/2025 2:00 PM EST Office Visit [facility] 703 [facility] 250 [place] [address] Meera Avalos, INCUBATOR OPERATOR-[facility] 703 [facility] 2, [address] [place], [place] [phone] documented as of this encounter Visit Diagnoses Not on filedocumented in this encounter Additional Health Concerns Assessment Noted Time A fall risk assessment has been complete d for the patient 05/18/2023 11:26 AM EST documented as of this encounter Care Teams Director Of Software Engineering Relationship Specialty Start Date End Date Hoda Talbot MD [address] [place] [address] [place] [address] PCP - General 03/29/1998 documented as of this encounter
--- OUTSIDE RECORDS SUMMARY | 2025-01-10 00:40 | XMS_ITS | Encounter Summary ---
Author Organization [facility] Address [address] [place] [address] Phone Care Team Providers Care Meat Boner And Slicer Name Role Phone Hoad Talbot MD Primary Care Provider [phone] Encounter Details Date Type Department Care Team (Late Contact Info) Description 08/02/2024 Scanned Document [facility] [address] [place] [phone] Scanning, Generic Provider Social History Tobacco Use [...] Description 04/03/2025 2:00 PM EST Office Visit [facility] 703 [facility] [address] [place] [address] Meera Avalos, PRINCIPAL SOFTWARE ENGINEER-[facility] 703 [facility] 2, [address] [place], [place] [phone] documented as of this encounter Visit Diagnoses Not on filedocumented in this encounter Additional Health Concerns Assessment Noted Time A fall risk assessment has been complete d for the patient 01/18/2024 11:21 AM EDT documented as of this encounter Care Teams Meat Boner And Slicer Relationship Specialty Start Date End Date Hoda Talbot MD [address] [place] [address] [place] [address] PCP - General 03/29/1998 documented as of this encounter
--- OUTSIDE RECORDS SUMMARY | 2025-01-10 00:40 | XMS_ITS | Encounter Summary ---
Author Organization [facility] Address [address] [place] [address] Phone Care Team Providers Care Administrative Manager Name Role Phone Hoda Talbot MD Primary Care Provider [phone] Encounter Details Date Type Department Care Team (Late Contact Info) Description 07/22/2024 Scanned Document [facility] [address] [place] [phone] Scanning, Generic Provider Social History Tobacco Use [...] Description 04/03/2025 2:00 PM EST Office Visit [facility] 703 [facility] [address] [place] [address] Meera Avalos, NUT ROASTER-[facility] 703 [facility] 2, [address] [place], [place] [phone] documented as of this encounter Visit Diagnoses Not on filedocumented in this encounter Additional Health Concerns Assessment Noted Time A fall risk assessment has been complete d for the patient 01/18/2024 11:21 AM EDT documented as of this encounter Care Teams Administrative Manager Relationship Specialty Start Date End Date Hoda Talbot MD [address] [place] [address] [place] [address] PCP - General 03/29/1998 documented as of this encounter
--- OUTSIDE RECORDS SUMMARY | 2025-01-10 00:40 | XMS_ITS | Encounter Summary ---
Author Organization [facility] Address [address] [place] [address] Phone Care Team Providers Care Lockstitcher Name Role Phone Hoda Talbot MD Primary Care Provider [phone] Encounter Details Date Type Department Care Team (Late st Contact Info) Description 01/29/2023 Scanned Document [facility] [address] [place] [phone] Scanning, Generic Provider Social History Tobacco Use [...] Description 04/03/2025 2:00 PM EST Office Visit [facility] [address]03 [facility] [address] [place] [address] Meera Avalos, LOGGING TRACTOR OPERATOR-SOURCING ENGINEER 703 [facility] [address], [address] [place] [address] documented as of this encounter Visit Diagnoses Not on filedocumented in this encounter Additional Health Concerns Assessment Noted Time A fall risk assessment has been complete d for the patient 01/14/2023 10:15 AM EDT documented as of this encounter Care Teams Lockstitcher Relationship Specialty Start Date End Date Hoda Talbot MD [address] [place] [address] [place] [address] PCP - General 03/29/1998 documented as of this encounter
--- OUTSIDE RECORDS SUMMARY | 2025-01-10 00:40 | XMS_ITS | Encounter Summary ---
Author Organization [facility] Address [address] [place] [address] Phone Care Team Providers Care Process Engineering Intern Name Role Phone Hoda Talbot MD Primary Care Provider [phone] Encounter Details Date Type Department Care Team (Late Contact Info) Description 07/25/2024 Scanned Document [facility] [address] [place] [phone] Scanning, Generic Provider Social History Tobacco Use [...] Description 04/03/2025 2:00 PM EST Office Visit [facility] 703 [facility] [address] [place] [address] Meera Avalos, CORDUROY BRUSHER OPERATOR-[facility] 703 [facility] 2, [address] [place], [place] [phone] documented as of this encounter Visit Diagnoses Not on filedocumented in this encounter Additional Health Concerns Assessment Noted Time A fall risk assessment has been complete d for the patient 01/18/2024 11:21 AM EDT documented as of this encounter Care Teams Process Engineering Intern Relationship Specialty Start Date End Date Hoda Talbot MD [address] [place] [address] [place] [address] PCP - General 03/29/1998 documented as of this encounter
--- OUTSIDE RECORDS SUMMARY | 2025-01-10 00:40 | XMS_ITS | Encounter Summary ---
Author Organization [facility] Address [address] [place] [address] Phone Care Team Providers Care Law Tutor Name Role Phone Hoda Talbot MD Primary Care Provider [phone] Encounter Details Date Type Department Care Team (Late Contact Info) Description 03/21/2024 Scanned Document [facility] [address] [place] [phone] Scanning, Generic Provider Social History Tobacco Use [...] Description 04/03/2025 2:00 PM EST Office Visit [facility] 703 [facility] 250 [place] [address] Meera Avalos, STUDIO DATA ANALYST-[facility] [address] [facility] 2, [address] [place], [place] [address] documented as of this encounter Visit Diagnoses Not on filedocumented in this encounter Additional Health Concerns Assessment Noted Time A fall risk assessment has been complete d for the patient 01/18/2024 11:21 AM EDT documented as of this encounter Care Teams Law Tutor Relationship Specialty Start Date End Date Hoda Talbot MD [address] [place] [address] [place] [address] PCP - General 03/29/1998 documented as of this encounter
--- OUTSIDE RECORDS SUMMARY | 2025-01-10 00:40 | XMS_ITS | Encounter Summary ---
Author Organization [facility] Address [address] [place] [address] Care Team Providers Care Laborer Yard Name Role Phone Hoda Talbot MD Primary Care Provider [phone] Encounter Details Date Type Department Care Team (Late st Contact Info) Description 03/07/2024 Clinisync Result Encounter [facility] External Department Unsolicited Abdulkadir Amaro DO Social History Tobacco Use Types Packs/Day Years Used Date Smoking Tobacco: Former Cigarettes Comments Unknown Sex and Gender Information Value Date Recorded Sex Assigned at Not on file Legal Sex Female 6:45 PM EDT Gender Identity Not on file Sexual Orientation Not on file documented as of this encounter Plan of Treatment Not on file documented as of this encounter Procedures Procedure Name Priority Date/Time Associated Diagnosis Comments CTA NECK 03/07/2024 11:16 AM EST documented in this encounter Results * CTA NECK (03/07/2024 11:16 AM EST) Anatomical Region Laterality Modality Other 03/07/2024 11:1 6 AM EST Narrative 03/07/2024 12:30 PM EST Exam Date/Time: 03/07/2024 11:43 EST Reason for [...] of the vertebrobasilar circulation with small caliber typing secretary, without distinct focal high-grade proximal stenosis of the typing secretary within limits of the small caliber. Dural venous sinuses: Visualized dural venous sinuses are patent. Ordering Provider: Abdulkadir Amaro FINAL REPORT Dictated: 03/07/2024 12:27 pm Marlon Flores MD Signed (Electronic Signature): 03/07/2024 12:27 pm Signed by: Marlon Flores MD Transcribed by: IGOR Technologist: DOMENICO Technical Comments GFR (mL/min/1/73m2) >60 Contrast: Isovue 370 Contrast amount in ml's: 100 Procedure Note Radiology, Radiologist, - 03/07/2024 Exam Date/Time: 03/07/2024 11:43 EST Reason for Exam: CVA Report IMPRESSION: Patent extracranial and intracranial circulation without evidence forlarge vessel occlusion, significant stenosis, or aneurysm. HISTORY: Stroke. Vision changes. TECHNIQUE: Spiral high resolution axial images were obtained through thehead, neck and superior mediastinum following bolus administration of intravenouscontrast for CT angiography. The data was subsequently post-processed utilizing 3Dmulti- planar reconstructions, 3D maximum intensity projections. COMPARISON: CT 03/06/2024. MRI 03/06/2024. All CT scans at this facility use dose modulation, iterativereconstruction, and/or weight based dosing when appropriate to reduce radiation dose to as low asreasonably achievable. RESULT: BRAIN: No significant interval change from the recent brain MRI and CT. NECK: Soft tissues: The soft tissue planes are maintained without acutefinding. No suspicious mass or lesion. No significant lymphadenopathy. Spine: No acute findings. Multilevel degenerative changes. Lung apices: The visualized lung apices are clear. CT ARTERIOGRAM: Extracranial Circulation: Aortic Arch: Normal branching pattern. Calcifications without significantstenosis in the proximal brachiocephalic vessels. Right Carotid findings, with stenosis % estimated by NASCET criteria: Mild to moderate plaque formation. No significant stenosis involving theright common carotid artery. No significant stenosis of the right ICA. No evidence fordissection or other acute process. Left Carotid findings, with stenosis % estimated by NASCET criteria: Moderate plaque formation. Short segment of around 50% stenosis of theproximal left common carotid artery. Otherwise no significant stenosis involving theleft common carotid artery. No significant stenosis of the left ICA. No evidence fordissection Report or other acute process. Cervical Vertebral Arteries: Patent bilaterally with right side slightly dominant. No evidence fordissection or other acute process. Intracranial Circulation: Anterior Circulation: Calcifications and tortuosity of the distal ICAs with mild stenosis.Proximal ACAs, proximal MCAs appear patent without significant stenosis or aneurysm. Vertebrobasilar Circulation: Distal vertebral arteries, basilar artery appear patent. Overall smallcaliber of the vertebrobasilar circulation with small caliber typing secretary, without distinctfocal high-grade proximal stenosis of the typing secretary within limits of the smallcaliber. Dural venous sinuses: Visualized dural venous sinuses are patent. Ordering Provider: Abdulkadir Amaro FINAL REPORT Dictated: 03/07/2024 12:27 pm Marlon Flores MD Signed (Electronic Signature): 03/07/2024 12:27 pm Signed by: Marlon Flores MD Transcribed by: IGOR Technologist: DOMENICO Technical Comments GFR (mL/min/1/73m2) >60 Contrast: Isovue 370 Contrast amount in ml's: 100 us Abdulkadir Amaro DO [facility] Final Result documented in this encounter Visit Diagnoses Not on filedocumented in this encounter Care Teams Laborer Yard Relationship Specialty [place] [address] [place] [id number] PCP - General Family Medicine 03/06/24 documented as of this encounter
--- OUTSIDE RECORDS SUMMARY | 2025-01-10 00:40 | XMS_ITS | Encounter Summary ---
Author Organization [facility] Address [address] [place] [address] Phone Care Team Providers Care Manager Change Name Role Phone Hoda Talbot MD Primary Care Provider [phone] Encounter Details Date Type Department Care Team (Late st Contact Info) Description 01/28/2023 Scanned Document [facility] [address] [place] [id number] Scanning, Generic Provider Social History Tobacco Use [...] Description 04/03/2025 2:00 PM EST Office Visit [facility] [address] [facility] [address] [place] [address] Meera Avalos, NURSES DIRECTOR-NEON MOLDER [address] [facility] [address] [place] [address] documented as of this encounter Visit Diagnoses Not on filedocumented in this encounter Additional Health Concerns Assessment Noted Time A fall risk assessment has been complete d for the patient 01/14/2023 10:15 AM EDT documented as of this encounter Care Teams Manager Change Relationship Specialty Start Date End Date Hoda Talbot MD [address] [place] [address] [place] [address] PCP - General 03/29/1998 documented as of this encounter
--- OUTSIDE RECORDS SUMMARY | 2025-01-10 00:40 | XMS_ITS | Encounter Summary ---
Author Organization [facility] Address [address] [place] [address] Care Team Providers Care Fruit And Vegetable Packer Name Role Phone Hoda Talbot MD Primary Care Provider [phone] Encounter Details Date Type Department Care Team [...] Procedure Name Priority Date/Time Associated Diagnosis Comments ECHO TRANSTHORACIC COMPLETE 03/07/2024 10:05 AM EST documented in this encounter Results * ECHO TRANSTHORACIC COMPLETE (03/07/2024 10:05 AM EST) Anatomical Region Laterality Modality Other 03/07/2024 10:0 5 AM EST Narrative 03/07/2024 12:40 PM EST Echocardiology Procedure Exam Date/Time Accession # Ordering Echo Transthoracic 03/07/2024 10:05 EST [id number] Abdulkadir Amaro DO Complete CPT code 19265 Reason for Exam (Echo Transthoracic Complete) CVA Report [address] [address] Adult Echocardiogram Report Name: JANELLE ORO Study Date: 03/07/2024 09:18 AM BP: 173/67 mmHg Patient Location: 3N [id number] [facility] [place] [facility] [place]: 95 : 1940 Gender: Female Height: 65.5 in Age: 83 yrs Ethnicity: T Weight: 137 lb Reason For Study: CVA BSA: 1.7 m2 History: Hypertension, Atrial Fibrillation Ordering Physician: Abdulkadir Amaro Performed By: Ya Wyatt RDCS Interpretation Summary The left ventricle is hyperdynamic. [...] no pleural effusion noted on this exam. [facility] No comparison study is available. MMode/2D Measurements \T\ Calculations RVDd: 2.8 cm LVIDd: 4.4 cm [...] LA Vol Index: 22.6 ml/m2 Doppler Measurements \T\ Calculations Echocardiology Report MV E max gume: 71.1 cm/sec MV dec time: 0.27 sec Ao V2 max: 153.0 cm/sec LV V1 max P.4 mmHg MV A max gume: 122.1 cm/sec Ao max P.4 mmHg LV V1 mean P.0 mmHg MV E/A: 0.58 Ao V2 mean: 107.0 cm/sec LV V1 max: 136.0 cm/sec Lat Peak E' Gume: 7.2 cm/sec Ao mean P.0 mmHg LV V1 mean: 93.0 cm/sec E/E' Lat: 9.9 Ao V2 VTI: 28.0 cm LV V1 VTI: 24.2 cm Med Peak E' Gume: 4.9 cm/sec E/E' Med: 14.5 TR max gume: 273.9 cm/sec RAP systole: 3.0 mmHg AV VR: 0.89 TR max P.0 mmHg RVSP(TR): 33.0 mmHg FINAL REPORT Dictated: 03/07/2024 9:18 am Chance Dennison MD Signed (Electronic Signature): 03/07/2024 12:40 pm Signed by: Chance Dennison MD Transcribed by: ME Technologist: BARTOLOME Procedure Note Radiology, Radiologist, - 03/07/2024 Echocardiology Procedure Exam Date/Time Accession #Ordering Echo Transthoracic 03/07/2024 10:05 EST [id number] Amaro DO Complete CPT code 04950 Reason for Exam (Echo Transthoracic Complete) CVA Report [address] [place], [id number] Adult EchocardiogramReport Name: JANELLE ORO Study Date: 03/07/2024 09:18 AMBP: 173/67 mmHg Patient Location: 3N 04 01 [facility] [place] [place]: 95 : 1940 Gender: Female Height: 65.5 in Age: 83 yrs Ethnicity: T Weight: 137 lb Reason For Study: CVABSA: 1.7 m2 History: Hypertension, Atrial Fibrillation Ordering Physician: Abdulkadir Amaro Performed By: Ya Wyatt, [facility] Interpretation Summary The left ventricle is hyperdynamic. Ejection Fraction = >70%. Grade I diastolic dysfunction, (abnormal relaxation pattern). There is mild mitral regurgitation. There is mild tricuspid regurgitation. No comparison study is available. Procedure A complete two-dimensional transthoracic echocardiogram was performed (2D,M- mode, spectral and color flow Doppler). Study quality is good. Left Ventricle The left ventricle is normal in size. There is normal left ventricularwall thickness. The left ventricle is hyperdynamic. Ejection Fraction = >70%. Grade I diastolic dysfunction,(abnormal relaxation pattern). Left Atrium Echocardiology Report The left atrial size is normal. Right Atrium Right atrial size is normal. Right Ventricle The right ventricular systolic function is normal. The right ventricle isnormal size. The right ventricular wall motion is normal. Aortic Valve The trileaflet aortic valve opening is normal. No aortic regurgitation. Mitral Valve The mitral valve is normal in structure and function. There is mild mitralregurgitation. Tricuspid Valve Structurally normal tricuspid valve. There is mild tricuspidregurgitation. Pulmonic Valve The pulmonic valve is normal. Arteries The aortic root is normal in size. Venous The inferior vena cava is normal in size, and collapses normally withrespiration. Effusion There is no pericardial effusion. There is no pleural effusion noted onthis exam. [facility] No comparison study is available. MMode/2D Measurements \T\ Calculations RVDd: 2.8 cm LVIDd: 4.4 cm FS: 34.5 %Ao root diam: 3.1 cm IVSd: 1.0 cm LVIDs: 2.9 cm EDV(Teich):87.3 ml LVPWd: 1.1 cm ESV(Teich):31.6 ml Ao root area: 7.6 cm2 EF(Teich):63.8 % LA dimension: 3.2 cm asc Aorta Diam: 3.3 cm LVLd ap4: 6.8 cmEDV(MOD-sp2): 57.4 ml SV(MOD-sp4): 44.4 ml EDV(MOD-sp4): 69.8 mlESV(MOD-sp2): 16.6 ml LVLs ap4: 5.8 cm EF(MOD-sp2):71.1 % ESV(MOD-sp4): 25.4 ml EF(MOD-sp4): 63.6 % TAPSE: 1.7 cm IVC Diam: 1.3 cm RVIDd/LVIDd:0.65 EF (MOD-bp): 67.2 % LA Vol Index: 22.6 ml/m2 Doppler Measurements \T\ Calculations Echocardiology Report MV E max gume: 71.1 cm/sec MV dec time: 0.27 sec Ao V2 max:153.0 cm/sec LV V1 max P.4 mmHg MV A max gume: 122.1 cm/sec Ao max P.4 mmHg LV V1 mean P.0 mmHg MV E/A: 0.58 Ao V2 mean:107.0 cm/sec LV V1 max: 136.0 cm/sec Lat Peak E' Gume: 7.2 cm/sec Ao mean P.0 mmHg LV V1 mean: 93.0 cm/sec E/E' Lat: 9.9 Ao V2 VTI:28.0 cm LV V1 VTI: 24.2 cm Med Peak E' Gume: 4.9 cm/sec E/E' Med: 14.5 TR max gume: 273.9 cm/sec RAP systole: 3.0 mmHg AV VR: 0.89 TR max P.0 mmHg RVSP(TR): 33.0 mmHg FINAL REPORT Dictated: 03/07/2024 9:18 am Chance Dennison MD Signed (Electronic Signature): 03/07/2024 12:40 pm Signed by: Chance Dennison MD Transcribed by: JOLENE Technologist: BARTOLOME us Abdulkadir Amaro DO [facility] Final Result documented in this encounter Visit Diagnoses Not on filedocumented in this encounter Care Teams Fruit And Vegetable Packer Relationship Specialty Start Date End Date Talbot, Hoad, MD [address] [place] [address] PCP - General Family Medicine 03/06/24 documented as of this encounter
--- OUTSIDE RECORDS SUMMARY | 2025-01-10 00:40 | XMS_ITS | Encounter Summary ---
Author Organization [facility] Address [address] [place] [address] Care Team Providers Care Mold Preparer Name Role Phone Hoda Talbot MD Primary Care Provider [phone] Encounter Details Date Type Department Care Team [...] Name Priority Date/Time Associated Diagnosis Comments CTA HEAD 03/07/2024 11:16 AM EST documented in this encounter Results * CTA HEAD (03/07/2024 11:16 AM EST) Anatomical Region Laterality Modality Other 03/07/2024 11:1 6 AM EST Narrative 03/07/2024 12:31 PM EST Exam Date/Time: 03/07/2024 11:43 EST [...] in ml's: 100 Procedure Note Radiology, Radiologist, MD - 03/07/2024 Exam Date/Time: 03/07/2024 11:43 EST Reason for Exam: CVA Report Refer to concurrent CTA neck dictation. All CT scans at this facility use dose modulation, iterativereconstruction, and/or weight based dosing when appropriate to reduce radiation dose to as low asreasonably achievable. Ordering Provider: Abdulkadir Amaro FINAL REPORT [...] on filedocumented in this encounter Care Teams Mold Preparer Relationship Specialty Start Date End Date Hoda Talbot MD [facility] [place] [phone] PCP - General Family Medicine 03/06/24 documented as of this encounter
--- OUTSIDE RECORDS SUMMARY | 2025-01-10 00:40 | XMS_ITS | CCD ---
Author Organization [facility] Care Team Providers Care Flight Dynamicist Name Role Phone Antonino Gustafson Unavailable Unavailable Unavailable Bhavna, Liliya Unavailable MD Antonino Gustafson Primary Care Provider DO Ortiz [facility] Emergency Provider jS, Dr. Antonino Macedo Primary Care Unav ailevonne [...] Admit Provider MD Elsa Amin Attending Provider [phone] MD Antonino Gustafson Primary Care Provider DO [...] Provider MD Adrienne Oconnor Other Provider Danitza [facility] Camryn Harris Other Provider [phone] MD Svitlana Reyes Other Provider [phone] Antonino Gustafson MD Primary Care Provider Antonino Gustafson MD Primary Care Provider Antonino Gustafson MD Primary Care Provider Antonino Gustafson MD Primary Care Provider [phone] Rolando Zarco Attending Unavailable Willie Kearney Attending Unavailable Willie Kearney Admitting Unavailable [place], Kamar Consulting Unavailable MD Kamar Escobar Consulting Unavailable [place], Kamar Consulting Unavailable [place], Kamar Consulting Unavailable [place], Kamar Consulting Unavailable [place], Kamar Consulting Unavailable [place], Kamar Consulting Unavailable [place], Kamar Consulting Unavailable [place], Kamar Consulting Unavailable Willie Kearney Attending Unavailable Shawn, Kamar Consulting Unavailable Willie Kearney Admitting Unavailable MD Kamar Escobar Consulting Unavailable [place], Kamar Consulting Unavailable [place], Kamar Consulting Unavailable [place], Kamar Consulting Unavailable [place], Kamar Consulting Unavailable [place], Kamar Consulting Unavailable [place], Kamar Consulting Unavailable [place], Kamar Consulting Unavailable ANTOINNO GUSTAFSON Primary Care Physician Michael Worthington Attending Unavailable Antonino Gustafson MD Primary Care Provider Asad Mcnally MD Emergency Provider [phone] Bradford MORA, Jon Admit Provider Bradford MORA, Jon Attending Provider Jovani Sibley MD Attending Provider Selena Ch Other Provider Unavailable Ashely PhD, Dani Other Provider [phone] Nancie Leigh DO Other Provider Shawn MORA, Kamar Other Provider Yuliana CHAN, Guido Horn Other Provider Abdulkadir Amaro DO Other Provider Rochelle Greene APRN Other Provider Shorty BANDER HAND-C, Marina Melissa Other Provider Asa YU-HOSTESS HOST-C, Amanda Rand Other Provider Sylvie Florez DO Other Provider Jenny Wilson MD Other Provider Jhon Abreu MD Other Provider Enedina Cain APRN Other Provider Belelinor CHAN, Shawn L Other Provider Dev Jacobsen MD Other Provider Dev Jacobsen MD Admit Provider [phone] Dev Jacobsen MD Attending Provider Beryl MOMIN, [...] Provider Bimal Green MD Other Provider Manpreet BANDER HAND-C, Ivette Kapadia Other Provider Dimas YU, Jose Horn Other Provider Unavailable Curly Smalls MD Other Provider Yousuf Gracia MD Other Provider Jaxson Weller MD Other Provider Cherry MORA, Zora Other Provider Unavailable iLno Lala MD Other Provider Michelle Stevens DO Other Provider Maverick Lopez DO Other Provider Luz Marina Gonzalez APRN Other Provider Chico Aragon DO Other Provider [phone] Stephanie MORA, Tamica Horn Other Provider Darlyn Avalos APRN Other Provider Suzi Russo APRN Other Provider [phone] Niru MORA, Martín Other Provider Unavailable Marlon Morgan MD Other Provider Edwards DO, Maxx T Other Provider Vazquez CHAN, Zahra Other Provider Janee MORA, Edgar Loco Other Provider Raúl Gardner MD Other Provider [phone] Jolene YU, Rochelle Other Provider Unavailable Bradford MORA, Jon Other Provider Edgardo MORA, Joshua Other Provider Ziggy MORA, Jhon Beach Other Provider [phone] Michelle MORA, Steve Melissa Other Provider [phone] Jovani Sibley MD Other Provider Yumi Dover APRN Other Provider [phone] Christine Perez APRN Other Provider Johnna MOMIN, [...] Consulting UnavailAntonino Cr MD Primary Care Provider [phone] PALMA RODRIGUEZ Attending Unavailable PALMA RODRIGUEZ Attending Unavailable AMANDA BRAY Attending Unavailable ANTONINO GUSTAFSON Referring Unavailable Antonino Gustafson MD Primary Care Provider Asa VARGASN-HOSTESS HOST-C, Amanda Rand Attending Provider Jhony Davis MD Other Provider Sanam Barrientos APRN Other Provider Guido Torres MD Other Provider Polly MORA, Karan Erazo Other Provider [phone] Lauren MORA, Abdulkadir Kate Other Provider Ferny Barksdale DO Other Provider Yosvany DOAmari Other Provider Raymond MORA, Samra Attending Provider [phone] Raymond MORA, Samra Other Provider Aram MORA, Angel Rand Other Provider Pamela MORA, Hayder Other Provider Chris MORA, Aneudy Harris Other Provider [phone] Jovani Sibley MD Other Provider Sylvie Florez DO Attending Provider Jhon Abreu MD Attending Provider Enedina Cain APRN Attending Provider Nicole Lang CMA Attending Provider UnavailAntonino Cr MD Attending Provider Nancie Leigh DO Attending Provider MICHAEL RAMOS [...] Unavailable Antonino Gustafson MD Primary Care Provider [phone] Nancie Leigh DO Attending Provider Allergies Allergy Classification Reported Allergen(s) Allergy Type Date of Onset Reaction(s) Facility (20 sources) amLODIPine; Translations: [Norvasc] Drug Allergy 023 Itching [facility] (11 sources) Angiotensin Converting Enzyme (Tati) Inhibitors; Translations: [TATI Inhibitors] Allergy to drug (finding) 023 [facility] 3 Repository (20 sources) cloNIDine; Translations: [Tdcnxrei-QYF-7 PTWK] Drug Allergy 023 Shortness of breath [facility] 250 DO Work Phone: (13 sources) Hmg-Coa Reductase Inhibitors (Statins); Translations: [Statins] Allergy to drug (finding) Myalgia, Unknown [facility] 250 DO Work Phone: (20 sources) hydrALAZINE; Translations: [hydrALAZINE] Drug Allergy 022 Diarrhea [facility] (20 sources) Lisinopril; Translations: [lisinopril] Drug Allergy 022 Rash [facility] (10 sources) methylPREDNISolone; Translations: [Medrol (Nestor) TABS] Drug Allergy Anaphylaxis [facility] 250 DO Work Phone: (20 sources) Sulfamethoxazole; Translations: [sulfa] Drug Allergy 023 Rash [facility] 250 DO Work Phone: (20 sources) Ciprofloxacin Drug Allergy 024 Unknown, Comment:joint pain [facility] (8 sources) cloNIDine Drug Allergy Unknown [facility] Other (20 sources) methylPREDNISolone; Translations: [METHYLPREDNISOLONE] Drug Allergy 022 Anaphylaxis [facility] (18 sources) amLODIPine; Translations: [amlodipine] Drug Allergy 022 Unknown Reaction [facility] (18 sources) cloNIDine; Translations: [clonidine] Drug Allergy 022 Unknown Reaction [facility] (17 sources) Sulfonamides (Antibiotic); Translations: [Sulfa (Sulfonamide Antibiotics)] Allergy to substance Unknown Reaction [facility] (17 sources) Ghxiatn-WJM-TiN Reductase Inhibitor; Translations: [Foiedhw-VKO-BiP Reductase Inhibitor] Allergy to substance Unknown Reaction [facility] (1 source) Amino Acids Drug Allergy [facility] Repository (1 source) amLODIPine Drug Allergy [facility] Repository (2 sources) black walnut pollen extract; Translations: [JUHUCNG-AMY-GFP REDUCTASE INHIBITORS] Drug Allergy [facility] Repository (1 source) hydrALAZINE Drug Allergy [facility] Repository (1 source) methylPREDNISolone Drug Allergy [facility] Repository (1 source) Sulfonamides (Antibiotic) Drug allergy (disorder) [facility] Repository (5 sources) Statins Depletion *DIETARY PRODUCTS/DIETARY MANAGE Propensity to adverse reactions Unknown [facility] Other (5 sources) Sulf-10 Drug allergy Unknown [facility] Other (7 sources) Angiotensin-convertin g enzyme inhibitor agent Drug Allergy 023 Rash [facility] (7 sources) HMG-CoA reductase inhibitor Drug Allergy 023 Myalgia [facility] Work Phone: (8 sources) Angiotensin-convertin g enzyme inhibitor agent Drug Allergy 023 Rash [facility] (8 sources) Simvastatin Allergy to substance [facility] (9 sources) Sulfamethoxazole; Translations: [SULFAMETHOXAZOLE] Allergy to substance 023 [facility] (8 sources) Sulfamethoxazole / Trimethoprim Drug Allergy [facility] (7 sources) No Known Medication Allergies; Translations: [No Known Medication Allergies] Propensity to adverse reactions (disorder) [facility] Repository (1 source) Ciprofloxacin Drug Allergy [facility] Repository (1 source) hydrALAZINE Drug Allergy [facility] Repository (1 source) Lisinopril Drug Allergy [facility] Repository (1 source) methylPREDNISolone Drug Allergy [facility] Repository Medications Current Medications Medication Drug [...] days Active take 1 capsule by mo [facility] once daily before breakfast Levothyroxine Sodium [...] 1 spray(s) nasal route twice daily Ipratropium [place] 21 mcg (0.03 %) spray,non-aerosol Discontinued 2 [...] Coronary arteriosclerosis; Translations: [Atherosclerotic heart disease of [place] coronary artery without angina pectoris] Onset: 4 [...] Onset: 4 Chronic Unclassified (5 sources) A [facility] screening has identified you as FRAIL [...] Four Ways to Beat the Frailty Risk [email or web address] [email or web address] qb-[email or web address]-to-beat-the -fra ilty-risk 08-01-2024 Unclassified (8 sources) Please call to schedule follow up appointment after discharged from Rehab. Unclassified (4 sources) Primary Care Provider Unclassified (4 sources) Follow up with rehab physician as needed Unclassified (2 sources) Dr Amaro saw while inpatient. This appointment is at the [facility]. 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; Translations: [correction (current) use of anticoagulants] Onset: 04-05-2024 Episodic Residual codes; unclassified (13 sources) Other specified health status; Translations: [Other drug allergy] Onset: 04-05-2024 04-05-2024 Episodic Unclassified (7 sources) Onset: 03-10-2023 Resolved: 01-18-2024 03-10-2023 Results Test Name Value Interpretation Reference Range Facility Perimetry studyon 09-04-2024 [facility] Radiology Study observation (narrative) [facility] Basic Metabolic PanelOrdered By: Jhon Abreu on 07-31-2024 Anion gap [Moles/Vol] 6.7 mmol/L 6.0-15.0 [facility] Comment on above: Performed By: #### C MP, CBC #### [facility] [address] Calcium [Mass/Vol] 8.8 mg/dL 8.6-10.3 [facility] Comment on above: Performed By: #### C MP, CBC #### [facility] [address] Chloride [Moles/Vol] 101 mmol/L 98-107 [facility] Comment on above: Performed By: #### C MP, CBC #### [facility] [address] CO2 [Moles/Vol] 29.2 mmol/L 21.0-31.0 [facility] Comment on above: Performed By: #### C MP, CBC #### [facility] [address] Creatinine [Mass/Vol] 0.96 mg/dL 0.60-1.20 [facility] Comment on above: Performed By: #### C MP, CBC #### [facility] [address] Glucose [Mass/Vol] 93 mg/dL 70-100 [facility] Comment on above: Result Comment: Ray om Glucose Reference Range is dependent on time and content of last meal. Glucose of more than 200 mg/dL in a nonstressed, ambulatory subject supports the diagnosis of Diabetes Mellitus. ADA recommended reference range Performed By: #### C MP, CBC #### [facility] [address] ADA recommended refe rence rangeRandom Glucose Reference Range is dependent on time and content of last meal. Glucose of more than 200 mg/dL in a nonstressed, ambulatory subject supports the diagnosis of Diabetes Mellitus. Potassium [Moles/Vol] 3.9 mmol/L 3.5-5.1 [facility] Comment on above: Performed By: #### C MP, CBC #### [facility] [address] [place] [address] [place] Sodium [Moles/Vol] 133 mmol/L Low 136-145 [facility] Comment on above: Performed By: #### C MP, CBC #### [facility] [address] Urea nitrogen [Mass/Vol] 24 mg/dL 10-20 [facility] Comment on above: Performed By: #### C MP, CBC #### [facility] [address] Basic Metabolic Panelon Creatinine Clr Calc Pharmacy 37.67 Normal [facility] Comment on above: Result Comment: PERF ORMED BY: [place] [address] PATHOLOGIST APPRAISAL COORDINATOR KARAN TINSLEY M.D. Performed By: #### C MP, CBC #### [facility] [address] Estimated GFR 58.341 mL/Min Normal [facility] Comment on above: Performed By: #### C MP, CBC #### [facility] [address] Basophils Auto (Bld) [#/Vol] Ordered By: Jhon Abreu on 07-31-2024 Basophils (Bld) [#/Vol] Automated basophil count 0.0-0.2 [facility] Basophils/100 WBC Auto (Bld) Ordered By: Jhon Abreu on 07-31-2024 Basophils/100 WBC (Bld) Automated basophil % . [facility] Calcium [Mass/volume] in Ser um or PlasmaOrdered By: Jhon Abreu on 07-31-2024 Calcium [Mass/Vol] Calcium [Mass/volume ] in Serum or Plasma 8.6-10.3 [facility] Carbon dioxide, total [Moles /volume] in Serum or PlasmaOrdered By: Jhon Abreu on 07-31-2024 CO2 [Moles/Vol] Carbon dioxide, tota l [Moles/volume] in Serum or Plasma 21.0-31.0 [facility] Chloride [Moles/volume] in S lorraine or PlasmaOrdered By: Jhon Abreu on 07-31-2024 Chloride [Moles/Vol] Chloride [Moles/vol ume] in Serum or Plasma 98-107 [facility] Complete Blood Count Auto Di ffOrdered By: Jhon Abreu on 07-31-2024 Basophils (Bld) [#/Vol] 0.1 10*3/uL 0.0-0.2 [facility] Comment on above: Result Comment: PERF ORMED BY: [place] [address] PATHOLOGIST APPRAISAL COORDINATOR KARAN TINSLEY M.D. Performed By: #### C MP, CBC #### [address] Basophils/100 WBC (Bld) 0.9 % . [facility] Comment on above: Performed By: #### C MP, CBC #### [address] Eosinophils (Bld) [#/Vol] 0.3 10*3/uL 0.0-0.45 [facility] Comment on above: Performed By: #### C MP, CBC #### [address] Eosinophils/100 WBC (Bld) 4.0 % . [facility] Comment on above: Performed By: #### C MP, CBC #### [address] Erythrocyte distribution width (RBC) [Ratio] 13.5 % 11.9-15.3 [facility] Comment on above: Performed By: #### C MP, CBC #### [address] Hematocrit (Bld) [Volume fraction] 35.2 % 34.0-46.4 [facility] Comment on above: Performed By: #### C MP, CBC #### [address] Hemoglobin (Bld) [Mass/Vol] 12.2 g/dL 11.8-15.4 [facility] Comment on above: Performed By: #### C MP, CBC #### [facility] [address] Lymphocytes (Bld) [#/Vol] 1.8 10*3/uL 1.00-4.8 [facility] Comment on above: Performed By: #### C MP, CBC #### [address] Lymphocytes/100 WBC (Bld) 28.6 % . [facility] Comment on above: Performed By: #### C MP, CBC #### [address] MCH (RBC) [Entitic mass] 30.6 pg 24.7-34.3 [facility] Comment on above: Performed By: #### C MP, CBC #### [address] MCV (RBC) [Entitic vol] 88.6 fL 80-100 [facility] Comment on above: Performed By: #### C MP, CBC #### [place] [address] [place] Monocytes (Bld) [#/Vol] 0.8 10*3/uL 0.0-0.8 [facility] Comment on above: Performed By: #### C MP, CBC #### [address] Monocytes/100 WBC (Bld) 13.4 % . [facility] Comment on above: Performed By: #### C MP, CBC #### [address] Neutrophils (Bld) [#/Vol] 3.3 10*3/uL 1.8-7.7 [facility] Comment on above: Performed By: #### C MP, CBC #### [address] Neutrophils/100 WBC (Bld) 53.1 % . [facility] Comment on above: Performed By: #### C MP, CBC #### [address] Platelet mean volume (Bld) [Entitic vol] 7.7 fL 6.3-10.7 [facility] Comment on above: Performed By: #### C MP, CBC #### [address] Platelets (Bld) [#/Vol] 227 10*3/uL 150-450 [facility] Comment on above: Performed By: #### C MP, CBC #### [address] RBC (Bld) [#/Vol] 3.98 10*6/uL 3.60-5.00 [facility] Comment on above: Performed By: #### C MP, CBC #### [address] WBC (Bld) [#/Vol] 6.3 10*3/uL 3.8-11.6 [facility] Comment on above: Performed By: #### C MP, CBC #### [address] Complete Blood Count Auto Di ffon 07-31-2024 Mean Corpuscular HGB Conc 34.5 g/dL Normal 32.0-35.0 [facility] Comment on above: Performed By: #### C MP, CBC #### [address] NRBC% 0.1 /100{WBC} Normal 0-0.5 [facility] Comment on above: Performed By: #### C MP, CBC #### [address] Creatinine [Mass/volume] in Serum or PlasmaOrdered By: Jhon Abreu on 07-31-2024 Creatinine [Mass/Vol] Creatinine [Mass/v olume] in Serum or Plasma 0.60-1.20 [facility] Eosinophils Auto (Bld) [#/Vo l]Ordered By: Jhon Abreu on 07-31-2024 Eosinophils (Bld) [#/Vol] Automated eosinophil count 0.0-0.45 [facility] Eosinophils/100 WBC Auto (Bl d)Ordered By: Jhon Abreu on 07-31-2024 Eosinophils/100 WBC (Bld) Automated eosinophil % . [facility] Erythrocyte distribution wid th Auto (RBC) [Ratio]Ordered By: Jhon Abreu on 07-31-2024 Erythrocyte distribution width (RBC) [Ratio] Erythrocyte distribution width [Ratio] by Automated count 11.9-15.3 [facility] Glucose [Mass/volume] in Ser um or PlasmaOrdered By: Jhon Abreu on 07-31-2024 Glucose [Mass/Vol] Glucose [Mass/volume ] in Serum or Plasma 70-100 [facility] Comment on above: ADA recommended refe rence rangeRandom Glucose Reference Range is dependent on time and content of last meal. Glucose of more than 200 mg/dL in a nonstressed, ambulatory subject supports the diagnosis of Diabetes Mellitus. Hematocrit Auto (Bld) [Volum e fraction]Ordered By: Jhon Abreu on 07-31-2024 Hematocrit (Bld) [Volume fraction] Hematocrit [Volume Fraction] of Blood by Automated count 34.0-46.4 [facility] Hemoglobin [Mass/volume] in BloodOrdered By: Jhon Abreu on 07-31-2024 Hemoglobin (Bld) [Mass/Vol] Hemoglobin [Mass/volume] in Blood 11.8-15.4 [facility] Leukocytes [#/volume] correc chacho for nucleated erythrocytes in Blood by Automated counOrdered By: Jhon Abreu on 07-31-2024 WBC corrected for nucl RBC Auto (Bld) [#/Vol] Leukocytes [#/volume] corrected for nucleated erythrocytes in Blood by Automated coun 3.8-11.6 [facility] WBC corrected for nucl RBC Auto (Bld) [#/Vol] 6.3 10*3/uL 3.8-11.6 [facility] Lymphocytes Auto (Bld) [#/Vo l]Ordered By: Jhon Abreu on 07-31-2024 Lymphocytes (Bld) [#/Vol] Lymphocytes [#/volume] in Blood by Automated count 1.00-4.8 [facility] Lymphocytes/100 WBC Auto (Bl d)Ordered By: Jhon Abreu on 07-31-2024 Lymphocytes/100 WBC (Bld) Lymphocytes/100 leukocytes in Blood by Automated count . [facility] MCH Auto (RBC) [Entitic mass ]Ordered By: Jhon Abreu on 07-31-2024 MCH (RBC) [Entitic mass] MCH [Entitic mass] by Automated count 24.7-34.3 [facility] MCHC Auto (RBC) [Mass/Vol]Or dered By: Jhon Abreu on 07-31-2024 MCHC (RBC) [Mass/Vol] MCHC [Mass/volume] by Automated count 32.0-35.0 [facility] MCHC (RBC) [Mass/Vol] 34.5 g/dL 32.0-35.0 [facility] MCV Auto (RBC) [Entitic vol] Ordered By: Jhon Abreu on 07-31-2024 MCV (RBC) [Entitic vol] MCV [Entitic vol ume] by Automated count 80-100 [facility] Monocytes Auto (Bld) [#/Vol] Ordered By: Jhon Abreu on 07-31-2024 Monocytes (Bld) [#/Vol] Automated blood monocyte count 0.0-0.8 [facility] Monocytes/100 WBC Auto (Bld) Ordered By: Jhon Abreu on 07-31-2024 Monocytes/100 WBC (Bld) Automated monocyte % . [facility] Neutrophils Auto (Bld) [#/Vo l]Ordered By: Jhon Abreu on 07-31-2024 Neutrophils (Bld) [#/Vol] Neutrophils [#/volume] in Blood by Automated count 1.8-7.7 [facility] Neutrophils/100 WBC Auto (Bl d)Ordered By: Jhon Abreu on 07-31-2024 Neutrophils/100 WBC (Bld) Automated neutrophil % . [facility] No Panel InformationOrdered By: Jhon Abreu on 07-31-2024 Estimated GFR (CKD-EPI) 58.341 mL/Min [facility] Creatinine Clearance (Chem 37.67 [facility] Nucleated erythrocytes [Pres ence] in Blood by Automated countOrdered By: Jhon Abreu on 07-31-2024 Nucleated RBC Auto Ql (Bld) Nucleated erythrocytes [Presence] in Blood by Automated count 0-0.5 [facility] Nucleated RBC Auto Ql (Bld) 0.1 /100{WBC} 0-0.5 [facility] Platelet mean volume Auto (B ld) [Entitic vol]Ordered By: Jhon Abreu on 07-31-2024 Platelet mean volume (Bld) [Entitic vol] Platelet mean volume [Entitic volume] in Blood by Automated count 6.3-10.7 [facility] Platelets Auto (Bld) [#/Vol] Ordered By: Jhon Abreu on 07-31-2024 Platelets (Bld) [#/Vol] Platelets [#/vol ume] in Blood by Automated count 150-450 [facility] Potassium [Moles/volume] in Serum or PlasmaOrdered By: Jhon Abreu on 07-31-2024 Potassium [Moles/Vol] Potassium [Moles/v olume] in Serum or Plasma 3.5-5.1 [facility] RBC Auto (Bld) [#/Vol]Ordere d By: Jhon Abreu on 07-31-2024 RBC (Bld) [#/Vol] Erythrocytes [#/volu me] in Blood by Automated count 3.60-5.00 [facility] Serum or plasma anion gap de terminationOrdered By: Jhon Abreu on 07-31-2024 Anion gap [Moles/Vol] Serum or plasma an ion gap determination 6.0-15.0 [facility] Sodium [Moles/volume] in Ser um or PlasmaOrdered By: Jhon Abreu on 07-31-2024 Sodium [Moles/Vol] Sodium [Moles/volume ] in Serum or Plasma Low 136-145 [facility] Urea nitrogen [Mass/volume] in Serum or PlasmaOrdered By: Jhon Abreu on 07-31-2024 Urea nitrogen [Mass/Vol] Urea nitrogen [Mass/volume] in Serum or Plasma 7-25 [facility] WBC Auto (Bld) [#/Vol]Ordere d By: Jhon Abreu on 07-31-2024 WBC (Bld) [#/Vol] Leukocytes [#/volume ] in Blood by Automated count 3.8-11.6 [facility] Alanine aminotransferase [En zymatic activity/volume] in Serum or PlasmaOrdered By: Jhon Abreu on 07-26-2024 ALT [Catalytic activity/Vol] Alanine aminotransferase [Enzymatic activity/volume] in Serum or Plasma 752 [facility] Albumin [Mass/volume] in Ser um or Plasma by Bromocresol green (BCG) dye binding methoOrdered By: Jhon Abreu on 07-26-2024 Albumin BCG dye [Mass/Vol] Albumin [Mass/volume] in Serum or Plasma by Bromocresol green (BCG) dye binding metho Low 3.5-5.7 [facility] Albumin BCG dye [Mass/Vol] 3.4 g/dL Low 3.5-5.7 [facility] Alkaline phosphatase [Enzyma tic activity/volume] in Serum or PlasmaOrdered By: Jhon Abreu on 07-26-2024 ALP [Catalytic activity/Vol] Alkaline phosphatase [Enzymatic activity/volume] in Serum or Plasma 34-104 [facility] Aspartate aminotransferase [ Enzymatic activity/volume] in Serum or PlasmaOrdered By: Jhon Abreu on 07-26-2024 AST [Catalytic activity/Vol] Aspartate aminotransferase [Enzymatic activity/volume] in Serum or Plasma 13-39 [facility] Bilirubin.total [Mass/volume ] in Serum or PlasmaOrdered By: Jhon Abreu on 07-26-2024 Bilirubin [Mass/Vol] Bilirubin.total [Mass/volume] in Serum or Plasma 0.3-1.0 [facility] Complete Blood Count Auto Di ffon 07-26-2024 Basophils (Bld) [#/Vol] 0.1 10*3/uL Normal 0.0-0.2 [facility] Comment on above: Result Comment: PERF ORMED BY: [address] [place] [address] PATHOLOGIST APPRAISAL COORDINATOR KARAN TINSLEY M.D. Performed By: #### C MP, CBC #### [facility] [address] [place] [address] [place] Basophils/100 WBC (Bld) 0.9 % Normal . T sonia [facility] Comment on above: Performed By: #### C MP, CBC #### [facility] [address] [place] [address] [place] Eosinophils (Bld) [#/Vol] 0.2 10*3/uL Normal 0.0-0.45 [facility] Comment on above: Performed By: #### C MP, CBC #### [address] Eosinophils/100 WBC (Bld) 2.3 % Normal . [facility] Comment on above: Performed By: #### C MP, CBC #### [address] Erythrocyte distribution width (RBC) [Ratio] 13.1 % Normal 11.9-15.3 [facility] Comment on above: Performed By: #### C MP, CBC #### [address] Hematocrit (Bld) [Volume fraction] 35.6 % Normal 34.0-46.4 [facility] Comment on above: Performed By: #### C MP, CBC #### [address] Hemoglobin (Bld) [Mass/Vol] 12.7 g/dL Normal 11.8-15.4 [facility] Comment on above: Performed By: #### C MP, CBC #### [address] Lymphocytes (Bld) [#/Vol] 1.9 10*3/uL Normal 1.00-4.8 [facility] Comment on above: Performed By: #### C MP, CBC #### [place] [address] [place] Lymphocytes/100 WBC (Bld) 27.9 % Normal . [facility] Comment on above: Performed By: #### C MP, CBC #### [place] [address] [place] MCH (RBC) [Entitic mass] 31.1 pg Normal 24.7-34.3 [facility] Comment on above: Performed By: #### C MP, CBC #### [address] MCV (RBC) [Entitic vol] 87.4 fL Normal 80-100 T he [facility] Comment on above: Performed By: #### C MP, CBC #### [facility] [address] Mean Corpuscular HGB Conc 35.6 g/dL High 32.0-35.0 [facility] Comment on above: Performed By: #### C MP, CBC #### [address] Monocytes (Bld) [#/Vol] 0.8 10*3/uL Normal 0.0-0.8 [facility] Comment on above: Performed By: #### C MP, CBC #### [place] [address] [place] Monocytes/100 WBC (Bld) 11.3 % Normal . [facility] Comment on above: Performed By: #### C MP, CBC #### [address] Neutrophils (Bld) [#/Vol] 3.9 10*3/uL Normal 1.8-7.7 [facility] Comment on above: Performed By: #### C MP, CBC #### [place] [address] [place] Neutrophils/100 WBC (Bld) 57.6 % Normal . [facility] Comment on above: Performed By: #### C MP, CBC #### [address] NRBC% 0.1 /100{WBC} Normal 0-0.5 [facility] Comment on above: Performed By: #### C MP, CBC #### [place] [address] [place] Platelet mean volume (Bld) [Entitic vol] 8.0 fL Normal 6.3-10.7 [facility] Comment on above: Performed By: #### C MP, CBC #### [place] [address] [place] Platelets (Bld) [#/Vol] 210 10*3/uL Normal 150-450 [facility] Comment on above: Performed By: #### C MP, CBC #### [address] RBC (Bld) [#/Vol] 4.07 10*6/uL Normal 3.60-5.00 [facility] Comment on above: Performed By: #### C MP, CBC #### [address] WBC (Bld) [#/Vol] 6.7 10*3/uL Normal 3.8-11.6 [facility] Comment on above: Performed By: #### C MP, CBC #### [address] Comprehensive Metabolic Pane clarita 07-26-2024 Albumin [Mass/Vol] 3.4 g/dL Low 3.5-5.7 [facility] Comment on above: Performed By: #### C MP, CBC #### [address] Anion gap [Moles/Vol] 10.7 mmol/L Normal 6.0-15.[address] [facility] Comment on above: Performed By: #### C MP, CBC #### [address] Calcium [Mass/Vol] 8.9 mg/dL Normal 8.6-10.3 [facility] Comment on above: Performed By: #### C MP, CBC #### [address] Chloride [Moles/Vol] 100 mmol/L Normal 98-107 [facility] Comment on above: Performed By: #### C MP, CBC #### [place] [address] [place] CO2 [Moles/Vol] 26.0 mmol/L Normal 21.0-31.0 [facility] Comment on above: Performed By: #### C MP, CBC #### [address] Creatinine [Mass/Vol] 1.09 mg/dL Normal 0.60-1.20 [facility] Comment on above: Performed By: #### C MP, CBC #### [facility] [address] [place] [address] [place] Creatinine Clr Calc Pharmacy 33.18 Normal [facility] Comment on above: Performed By: #### C MP, CBC #### [facility] [address] Estimated GFR 50.094 mL/Min Normal [facility] Comment on above: Performed By: #### C MP, CBC #### [facility] [address] Glucose [Mass/Vol] 98 mg/dL Normal 70-100 [facility] Comment on above: Result Comment: [facility] Glucose Reference Range is dependent on time and content of last meal. Glucose of more than 200 mg/dL in a nonstressed, ambulatory subject supports the diagnosis of Diabetes Mellitus. ADA recommended reference range Performed By: #### C MP, CBC #### [address] Potassium [Moles/Vol] 3.7 mmol/L Normal 3.5-5.1 [facility] Comment on above: Performed By: #### C MP, CBC #### [address] Sodium [Moles/Vol] 133 mmol/L Low 136-145 [facility] Comment on above: Performed By: #### C MP, CBC #### [address] Urea nitrogen [Mass/Vol] 15 mg/dL Normal 7-25 [facility] Comment on above: Performed By: #### C MP, CBC #### [facility] [address] Comprehensive Metabolic Pane lOrdered By: Jhon Abreu on 07-26-2024 Albumin/Globulin [Mass ratio] 1.4 {ratio} [facility] Comment on above: Performed By: #### C MP, CBC #### [facility] [address] [place] [address] [place] ALP [Catalytic activity/Vol] 48 U/L 34-104 [facility] Comment on above: Performed By: #### C MP, CBC #### [facility] [address] ALT [Catalytic activity/Vol] 11 U/L 7-52 [facility] Comment on above: Performed By: #### C MP, CBC #### [facility] [address] AST [Catalytic activity/Vol] 25 U/L 13-39 [facility] Comment on above: Performed By: #### C MP, CBC #### [facility] [address] Bilirubin [Mass/Vol] 0.8 mg/dL 0.3-1.0 [facility] Comment on above: Performed By: #### C MP, CBC #### [facility] [address] [place] [address] Globulin (S) [Mass/Vol] 2.5 g/dL [facility] Comment on above: Performed By: #### C MP, CBC #### [facility] [address] [place] [address] Protein [Mass/Vol] 5.9 g/dL Low 6.4-8.9 [facility] Comment on above: Performed By: #### C MP, CBC #### [facility] [address] [place] [address] Globulin Calc (S) [Mass/Vol] Ordered By: Jhon Abreu on 07-26-2024 Globulin (S) [Mass/Vol] Serum globulin m easurement by calculation (mass/volume) [facility] PrealbuminOrdered By: Jhon Abreu on 07-26-2024 Prealbumin [Mass/Vol] 14.8 mg/dL Low 17.0-34.0 [facility] Comment on above: Result Comment: PERF ORMED BY: [place] [address] PATHOLOGIST APPRAISAL COORDINATOR KARAN TINSLEY M.D. Performed By: #### C MP, CBC #### [facility] [address] [place] [address] Prealbumin [Mass/volume] in Serum or PlasmaOrdered By: Jhon Abreu on 07-26-2024 Prealbumin [Mass/Vol] Prealbumin [Mass/v olume] in Serum or Plasma Low 17.0-34.0 [facility] Protein [Mass/volume] in Ser um or PlasmaOrdered By: Jhon Abreu on 07-26-2024 Protein [Mass/Vol] Protein [Mass/volume ] in Serum or Plasma Low 6.4-8.9 [facility] Serum or plasma albumin/glob ulin mass ratioOrdered By: Jhon Abreu on 07-26-2024 Albumin/Globulin [Mass ratio] Serum or plasma albumin/globulin mass ratio [facility] Alanine aminotransferase [En zymatic activity/volume] in Serum or PlasmaOrdered By: Jhony Davis on 07-24-2024 ALT [Catalytic activity/Vol] Alanine aminotransferase [Enzymatic activity/volume] in Serum or Plasma 7-52 [facility] Albumin [Mass/volume] in Ser um or Plasma by Bromocresol green (BCG) dye binding methoOrdered By: Jhony Davis on 07-24-2024 Albumin BCG dye [Mass/Vol] Albumin [Mass/volume] in Serum or Plasma by Bromocresol green (BCG) dye binding metho Low 3.5-5.7 [facility] Albumin BCG dye [Mass/Vol] 3.3 g/dL Low 3.5-5.7 [facility] Alkaline phosphatase [Enzyma tic activity/volume] in Serum or PlasmaOrdered By: Jhony Davis on 07-24-2024 ALP [Catalytic activity/Vol] Alkaline phosphatase [Enzymatic activity/volume] in Serum or Plasma 34-104 [facility] Aspartate aminotransferase [ Enzymatic activity/volume] in Serum or PlasmaOrdered By: Jhony Davis on 07-24-2024 AST [Catalytic activity/Vol] Aspartate aminotransferase [Enzymatic activity/volume] in Serum or Plasma 13-39 [facility] Basophils Auto (Bld) [#/Vol] Ordered By: Jhony Davis on 07-24-2024 Basophils (Bld) [#/Vol] Automated basophil count 0.0-0.2 [facility] Basophils/100 WBC Auto (Bld) Ordered By: Jhony Davis on 07-24-2024 Basophils/100 WBC (Bld) Automated basophil % . [facility] Bilirubin.total [Mass/volume ] in Serum or PlasmaOrdered By: Jhony Davis on 07-24-2024 Bilirubin [Mass/Vol] Bilirubin.total [Mass/volume] in Serum or Plasma 0.3-1.0 [facility] Calcium [Mass/volume] in Ser um or PlasmaOrdered By: Jhony Davis on 07-24-2024 Calcium [Mass/Vol] Calcium [Mass/volume ] in Serum or Plasma 8.6-10.3 [facility] Carbon dioxide, total [Moles /volume] in Serum or PlasmaOrdered By: Jhony Davis on 07-24-2024 CO2 [Moles/Vol] Carbon dioxide, tota l [Moles/volume] in Serum or Plasma 21.0-31.0 [facility] Chloride [Moles/volume] in S lorraine or PlasmaOrdered By: Jhony Davis on 07-24-2024 Chloride [Moles/Vol] Chloride [Moles/vol ume] in Serum or Plasma 98-107 [facility] Complete Blood Count Auto Di ffOrdered By: Jhony Davis on 07-24-2024 Basophils (Bld) [#/Vol] 0.1 10*3/uL 0.0-0.2 [facility] Comment on above: Result Comment: PERF ORMED BY: [place] [address] PATHOLOGIST APPRAISAL COORDINATOR KARAN TINSLEY M.D. Performed By: #### C MP, CBC #### [facility] [address] [place] [address] [place] Basophils/100 WBC (Bld) 1.3 % . [facility] Comment on above: Performed By: #### C MP, CBC #### [facility] [address] [place] [address] [place] Eosinophils (Bld) [#/Vol] 0.1 10*3/uL 0.0-0.45 [facility] Comment on above: Performed By: #### C MP, CBC #### [address] Eosinophils/100 WBC (Bld) 1.4 % . [facility] Comment on above: Performed By: #### C MP, CBC #### [address] Erythrocyte distribution width (RBC) [Ratio] 13.5 % 11.9-15.3 [facility] Comment on above: Performed By: #### C MP, CBC #### [address] Hematocrit (Bld) [Volume fraction] 38.1 % 34.0-46.4 [facility] Comment on above: Performed By: #### C MP, CBC #### [address] Hemoglobin (Bld) [Mass/Vol] 13.3 g/dL 11.8-15.4 [facility] Comment on above: Performed By: #### C MP, CBC #### [address] Lymphocytes (Bld) [#/Vol] 1.5 10*3/uL 1.00-4.8 [facility] Comment on above: Performed By: #### C MP, CBC #### [address] Lymphocytes/100 WBC (Bld) 25.9 % . [facility] Comment on above: Performed By: #### C MP, CBC #### [address] MCH (RBC) [Entitic mass] 31.0 pg 24.7-34.3 [facility] Comment on above: Performed By: #### C MP, CBC #### [address] MCV (RBC) [Entitic vol] 88.9 fL 80-100 [facility] Comment on above: Performed By: #### C MP, CBC #### [address] Monocytes (Bld) [#/Vol] 0.6 10*3/uL 0.0-0.8 [facility] Comment on above: Performed By: #### C MP, CBC #### [facility] [address] Monocytes/100 WBC (Bld) 10.8 % . [facility] Comment on above: Performed By: #### C MP, CBC #### [facility] [address] Neutrophils (Bld) [#/Vol] 3.6 10*3/uL 1.8-7.7 [facility] Comment on above: Performed By: #### C MP, CBC #### [facility] [address] Neutrophils/100 WBC (Bld) 60.6 % . [facility] Comment on above: Performed By: #### C MP, CBC #### [facility] [address] Platelet mean volume (Bld) [Entitic vol] 7.5 fL 6.3-10.7 [facility] Comment on above: Performed By: #### C MP, CBC #### [facility] [address] Platelets (Bld) [#/Vol] 182 10*3/uL 150-450 [facility] Comment on above: Performed By: #### C MP, CBC #### [facility] [address] RBC (Bld) [#/Vol] 4.29 10*6/uL 3.60-5.00 [facility] Comment on above: Performed By: #### C MP, CBC #### [facility] [address] [place] [address] [place] WBC (Bld) [#/Vol] 6.0 10*3/uL 3.8-11.6 [facility] Comment on above: Performed By: #### C MP, CBC #### [facility] [address] Complete Blood Count Auto Di ffon 07-24-2024 Mean Corpuscular HGB Conc 34.9 g/dL Normal 32.0-35.0 [facility] Comment on above: Performed By: #### C MP, CBC #### [address] NRBC% 0.0 /100{WBC} Normal 0-0.5 [facility] Comment on above: Performed By: #### C MP, CBC #### [address] Comprehensive Metabolic Pane clarita 07-24-2024 Albumin [Mass/Vol] 3.3 g/dL Low 3.5-5.7 [facility] Comment on above: Performed By: #### C MP, CBC #### [address] Creatinine Clr Calc Pharmacy 39.82 Normal [facility] Comment on above: Result Comment: PERF ORMED BY: [place] [address] PATHOLOGIST APPRAISAL COORDINATOR KARAN TINSLEY M.D. Performed By: #### C MP, CBC #### [address] GFR/1.73 sq M.predicted MDRD (S/P/Bld) [Vol rate/Area] mL/min/{1.73_m2} Normal [facility] Comment on above: Performed By: #### C MP, CBC #### [address] Comprehensive Metabolic Pane lOrdered By: Jhony Davis on 07-24-2024 Albumin/Globulin [Mass ratio] 1.3 {ratio} [facility] Comment on above: Performed By: #### C MP, CBC #### [address] ALP [Catalytic activity/Vol] 39 U/L 34-104 [facility] Comment on above: Performed By: #### C MP, CBC #### [address] [place] [address] [place] ALT [Catalytic activity/Vol] 9 U/L 7-52 [facility] Comment on above: Performed By: #### C MP, CBC #### [address] Anion gap [Moles/Vol] 9.7 mmol/L 6.0-15.0 [facility] Comment on above: Performed By: #### C MP, CBC #### [address] AST [Catalytic activity/Vol] 25 U/L 13-39 [facility] Comment on above: Performed By: #### C MP, CBC #### [address] Bilirubin [Mass/Vol] 0.8 mg/dL 0.3-1.0 [facility] Comment on above: Performed By: #### C MP, CBC #### [facility] [address] [place] [address] Calcium [Mass/Vol] 8.7 mg/dL 8.6-10.3 [facility] Comment on above: Performed By: #### C MP, CBC #### [facility] [address] [place] [address] Chloride [Moles/Vol] 101 mmol/L 98-107 [facility] Comment on above: Performed By: #### C MP, CBC #### [facility] [address] [place] [address] CO2 [Moles/Vol] 26.0 mmol/L 21.0-31.0 [facility] Comment on above: Performed By: #### C MP, CBC #### [facility] [address] [place] [address] Creatinine [Mass/Vol] 0.87 mg/dL 0.60-1.20 [facility] Comment on above: Performed By: #### C MP, CBC #### [facility] [address] [place] [address] Globulin (S) [Mass/Vol] 2.5 g/dL [facility] Comment on above: Performed By: #### C MP, CBC #### [address] Glucose [Mass/Vol] 89 mg/dL 70-100 [facility] Comment on above: Result Comment: [facility] Glucose Reference Range is dependent on time and content of last meal. Glucose of more than 200 mg/dL in a nonstressed, ambulatory subject supports the diagnosis of Diabetes Mellitus. ADA recommended reference range Performed By: #### C MP, CBC #### [address] ADA recommended refe rence rangeRandom Glucose Reference Range is dependent on time and content of last meal. Glucose of more than 200 mg/dL in a nonstressed, ambulatory subject supports the diagnosis of Diabetes Mellitus. Potassium [Moles/Vol] 3.7 mmol/L 3.5-5.1 [facility] Comment on above: Result Comment: Hemo lysis is present at a level that could interfere with the result. Contact lab if redraw is required Performed By: #### C MP, CBC #### [address] Hemolysis is present at a level that could interfere with the result.Contact lab if redraw is required Protein [Mass/Vol] 5.8 g/dL Low 6.4-8.9 [facility] Comment on above: Performed By: #### C MP, CBC #### [address] Sodium [Moles/Vol] 133 mmol/L Low 136-145 [facility] Comment on above: Performed By: #### C MP, CBC #### [address] Urea nitrogen [Mass/Vol] 12 mg/dL - [facility] Comment on above: Performed By: #### C MP, CBC #### [address] Creatinine [Mass/volume] in Serum or PlasmaOrdered By: Jhony Davis on 07-24-2024 Creatinine [Mass/Vol] Creatinine [Mass/v olume] in Serum or Plasma 0.60-1.20 [facility] echo transthoracicon [facility] echo transthoracic [facility] Main [place] [address] [place] [id number] Echocardiogram Signed Patient: Janelle Burt MR#: [id number] : 1940 Acct:[id number] Age/Sex: 83 / F ADM Date: 07/22/24 Loc: Room: [address] [place] [address] Type: ADM IN Attending Dr: Jovani Sibley MD Ordering Provider: Jhony Davis MD Date of Service: 07/23/24 [facility] echo transthoracic: CVA Copies to: MD Jhony [...] MD 07/24/24 1559 Normal [facility] Eosinophils Auto (Bld) [#/Vo l]Ordered By: Jhony Davis on 07-24-2024 Eosinophils (Bld) [#/Vol] Automated eosinophil count 0.0-0.45 [facility] Eosinophils/100 WBC Auto (Bl d)Ordered By: Jhony Davis on 07-24-2024 Eosinophils/100 WBC (Bld) Automated eosinophil % . [facility] Erythrocyte distribution wid th Auto (RBC) [Ratio]Ordered By: Jhony Davis on 07-24-2024 Erythrocyte distribution width (RBC) [Ratio] Erythrocyte distribution width [Ratio] by Automated count 11.9-15.3 [facility] Globulin Calc (S) [Mass/Vol] Ordered By: Jhony Davis on 07-24-2024 Globulin (S) [Mass/Vol] Serum globulin m easurement by calculation (mass/volume) [facility] Glucose [Mass/volume] in Ser um or PlasmaOrdered By: Jhony Davis on 07-24-2024 Glucose [Mass/Vol] Glucose [Mass/volume ] in Serum or Plasma 70-100 [facility] Comment on above: ADA recommended refe rence rangeRandom Glucose Reference Range is dependent on time and content of last meal. Glucose of more than 200 mg/dL in a nonstressed, ambulatory subject supports the diagnosis of Diabetes Mellitus. Hematocrit Auto (Bld) [Volum e fraction]Ordered By: Jhony Davis on 07-24-2024 Hematocrit (Bld) [Volume fraction] Hematocrit [Volume Fraction] of Blood by Automated count 34.0-46.4 [facility] Hemoglobin [Mass/volume] in BloodOrdered By: Jhony Davis on 07-24-2024 Hemoglobin (Bld) [Mass/Vol] Hemoglobin [Mass/volume] in Blood 11.8-15.4 [facility] Leukocytes [#/volume] correc chacho for nucleated erythrocytes in Blood by Automated counOrdered By: Johny Davis on 07-24-2024 WBC corrected for nucl RBC Auto (Bld) [#/Vol] Leukocytes [#/volume] corrected for nucleated erythrocytes in Blood by Automated coun 3.8-11.6 [facility] WBC corrected for nucl RBC Auto (Bld) [#/Vol] 6.0 10*3/uL 3.8-11.6 [facility] Lymphocytes Auto (Bld) [#/Vo l]Ordered By: Jhony Davis on 07-24-2024 Lymphocytes (Bld) [#/Vol] Lymphocytes [#/volume] in Blood by Automated count 1.00-4.8 [facility] Lymphocytes/100 WBC Auto (Bl d)Ordered By: Jhony Davis on 07-24-2024 Lymphocytes/100 WBC (Bld) Lymphocytes/100 leukocytes in Blood by Automated count . [facility] MCH Auto (RBC) [Entitic mass ]Ordered By: Jhony Davis on 07-24-2024 MCH (RBC) [Entitic mass] MCH [Entitic mass] by Automated count 24.7-34.3 [facility] MCHC Auto (RBC) [Mass/Vol]Or dered By: Jhony Davis on 07-24-2024 MCHC (RBC) [Mass/Vol] MCHC [Mass/volume] by Automated count 32.0-35.0 [facility] MCHC (RBC) [Mass/Vol] 34.9 g/dL 32.0-35.0 [facility] MCV Auto (RBC) [Entitic vol] Ordered By: Jhony Davis on 07-24-2024 MCV (RBC) [Entitic vol] MCV [Entitic vol ume] by Automated count 80-100 [facility] MR head/brain wo/w conon MR head/brain wo/w con [facility] Main [address] [address] MRI Report Signed Patient: Janelle Burt MR#: [id number] : 1940 Acct:[id number] Age/Sex: 83 / F ADM Date: 07/22/24 Loc: 4C Room: [address] [place] [address] Type: ADM IN Attending Dr: Jovani Sibley [...] chronic small vessel ischemic disease. Remote right UNEMPLOYMENT CLAIMS ADJUDICATOR distribution stroke with resultant encephalomalacia. Major intracranial [...] Ferrera M.D. 07/24/2024 6:04 PM Dictation Location: [place] [address] Transcribed By: [facility] 07/24/241803 Dictated By: Charli Ferrera MD 07/24/241800 Signed By: 07/24/241803 Normal [facility] Magnetic resonance imaging r eportOrdered By: Charli Ferrera on 07-24-2024 Study report [facility] [address] MRI Report Signed Patient: Janelle Burt MR#: [id number] : 1940 Acct:[id number] Age/Sex: 83 / F ADM Date: 5 Loc: 4C Room: [address] [place] [address] Type: ADM IN Attending Dr: Jovani Sibley [...] chronic small vessel ischemic disease. Remote right UNEMPLOYMENT CLAIMS ADJUDICATOR distribution stroke with resultant encephalomalacia. Major intracranial [...] Ferrera M.D. 07/24/2024 6:04 PM Dictation Location: [place] [address] Transcribed By: FUENTES 07/24/241803 Dictated By: Charli Ferrera MD 07/24/241800 Signed By: 07/24/24 180 [facility] Work Phone: Monocytes Auto (Bld) [#/Vol] Ordered By: Jhony Davis on 07-24-2024 Monocytes (Bld) [#/Vol] Automated blood monocyte count 0.0-0.8 [facility] Monocytes/100 WBC Auto (Bld) Ordered By: Jhony Davis on 07-24-2024 Monocytes/100 WBC (Bld) Automated monocyte % . [facility] Neutrophils Auto (Bld) [#/Vo l]Ordered By: Jhony Davis on 07-24-2024 Neutrophils (Bld) [#/Vol] Neutrophils [#/volume] in Blood by Automated count 1.8-7.7 [facility] Neutrophils/100 WBC Auto (Bl d)Ordered By: Jhony Davis on 07-24-2024 Neutrophils/100 WBC (Bld) Automated neutrophil % . [facility] No Panel InformationOrdered By: Jhony Davis on 07-24-2024 Estimated GFR (CKD-EPI) > 60.0 mL/Min [facility] Creatinine Clearance (Chem 39.82 [facility] Nucleated erythrocytes [Pres ence] in Blood by Automated countOrdered By: Jhony Davis on 07-24-2024 Nucleated RBC Auto Ql (Bld) Nucleated erythrocytes [Presence] in Blood by Automated count 0-0.5 [facility] Nucleated RBC Auto Ql (Bld) 0.0 /100{WBC} 0-0.5 [facility] Platelet mean volume Auto (B ld) [Entitic vol]Ordered By: Jhony Davis on 07-24-2024 Platelet mean volume (Bld) [Entitic vol] Platelet mean volume [Entitic volume] in Blood by Automated count 6.3-10.7 [facility] Platelets Auto (Bld) [#/Vol] Ordered By: Jhony Davis on 07-24-2024 Platelets (Bld) [#/Vol] Platelets [#/vol ume] in Blood by Automated count 150-450 [facility] Potassium [Moles/volume] in Serum or PlasmaOrdered By: Jhony Davis on 07-24-2024 Potassium [Moles/Vol] Potassium [Moles/v olume] in Serum or Plasma 3.5-5.1 [facility] Comment on above: Hemolysis is present at a level that could interfere with the result.Contact lab if redraw is required Protein [Mass/volume] in Ser um or PlasmaOrdered By: Jhony Davis on 07-24-2024 Protein [Mass/Vol] Protein [Mass/volume ] in Serum or Plasma Low 6.4-8.9 [facility] RBC Auto (Bld) [#/Vol]Ordere d By: Jhony Davis on 07-24-2024 RBC (Bld) [#/Vol] Erythrocytes [#/volu me] in Blood by Automated count 3.60-5.00 [facility] Serum or plasma albumin/glob ulin mass ratioOrdered By: Jhony Davis on 07-24-2024 Albumin/Globulin [Mass ratio] Serum or plasma albumin/globulin mass ratio [facility] Serum or plasma anion gap de terminationOrdered By: Jhony Davis on 07-24-2024 Anion gap [Moles/Vol] Serum or plasma an ion gap determination 6.0-15.0 [facility] Sodium [Moles/volume] in Ser um or PlasmaOrdered By: Jhony Davis on 07-24-2024 Sodium [Moles/Vol] Sodium [Moles/volume ] in Serum or Plasma Low 136-145 [facility] Urea nitrogen [Mass/volume] in Serum or PlasmaOrdered By: Jhony Davis on 07-24-2024 Urea nitrogen [Mass/Vol] Urea nitrogen [Mass/volume] in Serum or Plasma 7-25 [facility] WBC Auto (Bld) [#/Vol]Ordere d By: Jhony Davis on 07-24-2024 WBC (Bld) [#/Vol] Leukocytes [#/volume ] in Blood by Automated count 3.8-11.6 [facility] Alanine aminotransferase [En zymatic activity/volume] in Serum or PlasmaOrdered By: Jon Felder on 07-23-2024 ALT [Catalytic activity/Vol] Alanine aminotransferase [Enzymatic activity/volume] in Serum or Plasma 7-52 [facility] Albumin [Mass/volume] in Ser um or Plasma by Bromocresol green (BCG) dye binding methoOrdered By: Jon Felder on 07-23-2024 Albumin BCG dye [Mass/Vol] Albumin [Mass/volume] in Serum or Plasma by Bromocresol green (BCG) dye binding metho 3.5-5.7 [facility] Alkaline phosphatase [Enzyma tic activity/volume] in Serum or PlasmaOrdered By: Jon Felder on 07-23-2024 ALP [Catalytic activity/Vol] Alkaline phosphatase [Enzymatic activity/volume] in Serum or Plasma 34-104 [facility] Arterial Blood Gason 025 ABG Base Excess -2.3 mmol/L Normal -3.0-3.0 [facility] Comment on above: Performed By: #### C MP, CBC #### [address] ABG Frac Inspired O2 21 % Normal [facility] Comment on above: Performed By: #### C MP, CBC #### [address] ABG Oxygen Content 7.8 mmol/L Normal 6.6-9.7 [facility] Comment on above: Performed By: #### C MP, CBC #### [address] ABG Oxygen Saturation 95.8 % Normal 95.0-100.0 [facility] Comment on above: Performed By: #### C MP, CBC #### [address] ABG PCO2 29.7 mm[Hg] Off scale low 35.0-45.0 [facility] Comment on above: Performed By: #### C MP, CBC #### [address] ABG PH 7.46 High 7.35-7.45 [facility] Comment on above: Performed By: #### C MP, CBC #### [address] ABG PO2 82.4 mm[Hg] Normal 80.0-100.0 [facility] Comment on above: Performed By: #### C MP, CBC #### [address] Respiratory Critical Normal [facility] Comment on above: Result Comment: Crit ical Value called on: 07/23/2024 at 11:06 PERFORMED BY: [place] [address] PATHOLOGIST APPRAISAL COORDINATOR KARAN TINSLEY M.D. Performed By: #### C MP, CBC #### [address] VBG Draw Site Left Radial Normal [facility] Comment on above: Performed By: #### C MP, CBC #### [address] Arterial Blood GasOrdered By : Jhony Davis on 07-23-2024 CO2 [Moles/Vol] 21.4 mmol/L Low 23.0-27.0 [facility] Comment on above: Performed By: #### C MP, CBC #### [address] HCO3 (Bld) [Moles/Vol] 20.5 mmol/L Low 23.0-29.0 [facility] Comment on above: Performed By: #### C MP, CBC #### [address] Aspartate aminotransferase [ Enzymatic activity/volume] in Serum or PlasmaOrdered By: Jon Felder on 07-23-2024 AST [Catalytic activity/Vol] Aspartate aminotransferase [Enzymatic activity/volume] in Serum or Plasma 13-39 [facility] Bilirubin.total [Mass/volume ] in Serum or PlasmaOrdered By: Jon Felder on 07-23-2024 Bilirubin [Mass/Vol] Bilirubin.total [Mass/volume] in Serum or Plasma 0.3-1.0 [facility] Blood Cultureon 07-23-2024 Bacteria identified Cx Nom (Bld) NO GROWTH 5 DAYS PERFORMED BY: [place] [address] PATHOLOGIST APPRAISAL COORDINATOR KARAN TINSLEY M.D. Normal [facility] Comment on above: Performed By: #### C MP, CBC #### [address] Bacteria identified Cx Nom (Bld) NO GROWTH 5 DAYS PERFORMED BY: [place] [address] PATHOLOGIST APPRAISAL COORDINATOR KARAN TINSLEY M.D. Normal [facility] Comment on above: Performed By: #### C UU #### [address] angio neckon 07-23-2024 CT angio neck [facility] Main [place] [address] [place] [address] CT Scan Report Signed Patient: Janelle Burt MR#: [id number] : 1940 Acct:[id number] Age/Sex: 83 / F ADM Date: 07/22/24 Loc: Room: 5Q5861-6 Type: ADM IN Attending Dr: Jhony Davis MD Copies to: MD Asad Doan Jr, MD Ordering Provider: Asad Mcnally Jr, MD Date of Service: 07/22/24 CT/CT angio head: fall, mild L weakness, anticoag ([id number]) CT/CT angio neck: fall, mild L weakness, [...] DIFFUSE NARROWING INVOLVING THE REMAINDER OF THE MANAGER ASSET. NO SACCULAR ANEURYSM. MULTILEVEL DEGENERATIVE CHANGES THROUGHOUT THE CERVICAL SPINE CT/CT angio head IMPRESSION: Negative for large vessel occlusion or hemodynamically significant stenosis involving the cervical vessels. Moderate burden of disease identified intracranially notably involving right distal M1 segment. Left A2 A3 segment. Moderate severe narrowing left P1 P2 segment UNEMPLOYMENT CLAIMS ADJUDICATOR. Moderate narrowing right P1 segment UNEMPLOYMENT CLAIMS ADJUDICATOR. Up to 50% narrowing involving both proximal ICAs Impression dictated by: Charli Ferrera M.D. 07/23/2024 8:46 AM Dictation Location: [id number]-29 Transcribed By: FUENTES 07/23/24 0846 Dictated By: Charli Ferrera MD 07/23/24 0835 Signed By: 07/23/24 0846 Normal [facility] CT head stroke alert wo cono n 07-23-2024 CT head stroke alert wo con [facility] Main [place] [address] [place] [address] CT Scan Report Signed Patient: Janelle Burt MR#: [id number] : 1940 Acct:[id number] Age/Sex: 83 / F ADM Date: 07/22/24 Loc: Room: [address] [place] [address] Type: ADM IN Attending Dr: Jhony Davis [...] bleed, midline shift or mass effect. 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 Moderate chronic small vessel [...] By: 07/23/24 075 Normal [facility] Calcium [Mass/volume] in Ser um or PlasmaOrdered By: Jon Felder on 04-27-2025 Calcium [Mass/Vol] Calcium [Mass/volume ] in Serum or Plasma 8.6-10.3 [facility] Carbon dioxide, total [Moles /volume] in Serum or PlasmaOrdered By: Jon Felder on 07-23-2024 CO2 [Moles/Vol] Carbon dioxide, tota l [Moles/volume] in Serum or Plasma 21.0-31.0 [facility] Chloride [Moles/volume] in S lorraine or PlasmaOrdered By: Jon Felder on 07-23-2024 Chloride [Moles/Vol] Chloride [Moles/vol ume] in Serum or Plasma Low 98-107 [facility] Complete Blood Count Auto Di ffon 07-23-2024 Basophils (Bld) [#/Vol] 0.1 10*3/uL Normal 0.0-0.2 [facility] Comment on above: Result Comment: PERF ORMED BY: [place] [address] PATHOLOGIST APPRAISAL COORDINATOR KARAN TINSLEY M.D. Performed By: #### C MP, CBC #### [address] Basophils/100 WBC (Bld) 0.5 % Normal . Eron scott [facility] Comment on above: Performed By: #### C MP, CBC #### [address] Eosinophils (Bld) [#/Vol] 0.0 10*3/uL Normal 0.0-0.45 [facility] Comment on above: Performed By: #### C MP, CBC #### [place] [address] [place] Eosinophils/100 WBC (Bld) 0.1 % Normal . [facility] Comment on above: Performed By: #### C MP, CBC #### [address] Erythrocyte distribution width (RBC) [Ratio] 13.7 % Normal 11.9-15.3 [facility] Comment on above: Performed By: #### C MP, CBC #### [address] Hematocrit (Bld) [Volume fraction] 41.8 % Normal 34.0-46.4 [facility] Comment on above: Performed By: #### C MP, CBC #### [address] Hemoglobin (Bld) [Mass/Vol] 14.6 g/dL Normal 11.8-15.4 [facility] Comment on above: Performed By: #### C MP, CBC #### [address] Lymphocytes (Bld) [#/Vol] 1.2 10*3/uL Normal 1.00-4.8 [facility] Comment on above: Performed By: #### C MP, CBC #### [address] Lymphocytes/100 WBC (Bld) 9.4 % Normal . [facility] Comment on above: Performed By: #### C MP, CBC #### [address] MCH (RBC) [Entitic mass] 30.8 pg Normal 24.7-34.3 [facility] Comment on above: Performed By: #### C MP, CBC #### [address] MCV (RBC) [Entitic vol] 88.6 fL Normal 80-100 T [facility] Comment on above: Performed By: #### C MP, CBC #### [address] Mean Corpuscular HGB Conc 34.8 g/dL Normal 32.0-35.0 [facility] Comment on above: Performed By: #### C MP, CBC #### [address] Monocytes (Bld) [#/Vol] 0.5 10*3/uL Normal 0.0-0.8 [facility] Comment on above: Performed By: #### C MP, CBC #### [place] [address] [place] Monocytes/100 WBC (Bld) 18.56 % Normal 0.00-20.00 T sonia [facility] Comment on above: Performed By: #### C MP, CBC #### [address] Monocytes/100 WBC (Bld) 4.5 % Normal . [facility] Comment on above: Performed By: #### C MP, CBC #### [address] Neutrophils (Bld) [#/Vol] 10.5 10*3/uL High 1.8-7.7 [facility] Comment on above: Performed By: #### C MP, CBC #### [address] Neutrophils/100 WBC (Bld) 85.5 % Normal . [facility] Comment on above: Performed By: #### C MP, CBC #### [address] NRBC% 0.0 /100{WBC} Normal 0-0.5 [facility] Comment on above: Performed By: #### C MP, CBC #### [address] Platelet mean volume (Bld) [Entitic vol] 7.8 fL Normal 6.3-10.7 [facility] Comment on above: Performed By: #### C MP, CBC #### [place] [address] [place] Platelets (Bld) [#/Vol] 214 10*3/uL Normal 150-450 [facility] Comment on above: Performed By: #### C MP, CBC #### [place] [address] [place] RBC (Bld) [#/Vol] 4.72 10*6/uL Normal 3.60-5.00 [facility] Comment on above: Performed By: #### C MP, CBC #### [place] [address] [place] WBC (Bld) [#/Vol] 12.3 10*3/uL High 3.8-11.6 [facility] Comment on above: Performed By: #### C MP, CBC #### [address] Comprehensive Metabolic Pane clarita 07-23-2024 Albumin Level Normal 3.5-5.7 [facility] Comment on above: Result Comment: Hemo lysis is present at a level that could interfere with the result. --- 07/23/24 0531 --- [place] previously reported as: 4.0 gm/dL Hemolysis is present at a level that could interfere with the result. Performed By: #### C MP, CBC #### [address] Albumin/Globulin Ratio Normal Th e [facility] Comment on above: Result Comment: Spec imen hemolyzed, redraw requested Performed By: #### C MP, CBC #### [address] ALP [Catalytic activity/Vol] 42 U/L Normal 34-104 [facility] Comment on above: Performed By: #### C MP, CBC #### [address] ALT [Catalytic activity/Vol] 12 U/L Normal 7-52 [facility] Comment on above: Performed By: #### C MP, CBC #### [address] Anion gap [Moles/Vol] Not performed Normal 6.0-15.0 [facility] Comment on above: Performed By: #### C MP, CBC #### [address] Aspartate Amino Transferase Normal 13-39 [facility] Comment on above: Result Comment: Spec imen hemolyzed, redraw requested Performed By: #### C MP, CBC #### [address] Bilirubin [Mass/Vol] 0.6 mg/dL Normal 0.3-1.0 [facility] Comment on above: Performed By: #### C MP, CBC #### [address] Calcium [Mass/Vol] 9.1 mg/dL Normal 8.6-10.3 [facility] Comment on above: Performed By: #### C MP, CBC #### [address] Chloride [Moles/Vol] 97 mmol/L Low 98-107 [facility] Comment on above: Performed By: #### C MP, CBC #### [address] CO2 [Moles/Vol] 22.5 mmol/L Normal 21.0-31.0 [facility] Comment on above: Performed By: #### C MP, CBC #### [address] Creatinine [Mass/Vol] 0.95 mg/dL Normal 0.60-1.20 [facility] Comment on above: Performed By: #### C MP, CBC #### [address] Creatinine Clr Calc Pharmacy 36.47 Normal [facility] Comment on above: Performed By: #### C MP, CBC #### [address] Estimated GFR 59.079 mL/Min Normal [facility] Comment on above: Performed By: #### C MP, CBC #### [place] [address] [place] Globulin Normal [facility] Comment on above: Result Comment: Spec imen hemolyzed, redraw requested Performed By: #### C MP, CBC #### [address] Glucose [Mass/Vol] 113 mg/dL High 70-100 [facility] Comment on above: Result Comment: Ray Glucose Reference Range is dependent on time and content of last meal. Glucose of more than 200 mg/dL in a nonstressed, ambulatory subject supports the diagnosis of Diabetes Mellitus. ADA recommended reference range Performed By: #### C MP, CBC #### [facility] [address] [place] [address] [place] Potassium Normal 3.5-5.1 [facility] Comment on above: Result Comment: Spec imen hemolyzed, redraw requested Performed By: #### C MP, CBC #### [facility] [address] [place] [address] [place] Sodium Normal 136-145 [facility] Comment on above: Result Comment: Spec imen hemolyzed, redraw requested Performed By: #### C MP, CBC #### [place] [address] [place] Total Protein Normal 6.4-8.9 [facility] Comment on above: Result Comment: Spec imen hemolyzed, redraw requested Performed By: #### C MP, CBC #### [place] [address] [place] Urea nitrogen [Mass/Vol] 15 mg/dL Normal 7-25 [facility] Comment on above: Performed By: #### C MP, CBC #### [place] [address] [place] Albumin [Mass/Vol] 4.0 g/dL Normal 3.5-5.7 [facility] Comment on above: Performed By: #### C UU #### [place] [address] [place] Albumin/Globulin [Mass ratio] 1.3 {ratio} Normal [facility] Comment on above: Performed By: #### C UU #### [place] [address] [place] ALP [Catalytic activity/Vol] 50 U/L Normal 34-104 [facility] Comment on above: Performed By: #### C UU #### [place] [address] [place] ALT [Catalytic activity/Vol] 12 U/L Normal 7-52 [facility] Comment on above: Performed By: #### C UU #### [address] Anion gap [Moles/Vol] 15.9 mmol/L High 6.0-15.0 Th e [facility] Comment on above: Performed By: #### C UU #### [address] AST [Catalytic activity/Vol] 22 U/L Normal 13-39 [facility] Comment on above: Performed By: #### C UU #### [address] Bilirubin [Mass/Vol] 0.7 mg/dL Normal 0.3-1.0 [facility] Comment on above: Performed By: #### C UU #### [address] Calcium [Mass/Vol] 9.4 mg/dL Normal 8.6-10.3 [facility] Comment on above: Performed By: #### C UU #### [address] Chloride [Moles/Vol] 95 mmol/L Low 98-107 [facility] Comment on above: Performed By: #### C UU #### [address] CO2 [Moles/Vol] 22.7 mmol/L Normal 21.0-31.0 [facility] Comment on above: Performed By: #### C UU #### [address] Creatinine [Mass/Vol] 1.07 mg/dL Normal 0.60-1.20 [facility] Comment on above: Performed By: #### C UU #### [address] Creatinine Clr Calc Pharmacy 35.22 Normal [facility] Comment on above: Result Comment: PERF ORMED BY: [place] [address] PATHOLOGIST APPRAISAL COORDINATOR KARAN TINSLEY M.D. Performed By: #### C UU #### [address] Estimated GFR 51.220 mL/Min Normal [facility] Comment on above: Performed By: #### C UU #### [address] Globulin (S) [Mass/Vol] 3.0 g/dL Normal T he [facility] Comment on above: Performed By: #### C UU #### [address] Glucose [Mass/Vol] 129 mg/dL High 70-100 [facility] Comment on above: Result Comment: [facility] Glucose Reference Range is dependent on time and content of last meal. Glucose of more than 200 mg/dL in a nonstressed, ambulatory subject supports the diagnosis of Diabetes Mellitus. ADA recommended reference range Performed By: #### C UU #### [address] Potassium [Moles/Vol] 3.6 mmol/L Normal 3.5-5.1 [facility] Comment on above: Performed By: #### C UU #### [address] Protein [Mass/Vol] 7.0 g/dL Normal 6.4-8.9 [facility] Comment on above: Performed By: #### C UU #### [address] Sodium [Moles/Vol] 130 mmol/L Low 136-145 [facility] Comment on above: Performed By: #### C UU #### [address] Urea nitrogen [Mass/Vol] 16 mg/dL Normal 7-25 [facility] Comment on above: Performed By: #### C UU #### [address] Creatinine [Mass/volume] in Serum or PlasmaOrdered By: Jon Felder on 07-23-2024 Creatinine [Mass/Vol] Creatinine [Mass/v olume] in Serum or Plasma 0.60-1.20 [facility] Globulin Calc (S) [Mass/Vol] Ordered By: Jon Felder on 07-23-2024 Globulin (S) [Mass/Vol] Serum globulin m easurement by calculation (mass/volume) [facility] Glucose [Mass/volume] in Ser um or PlasmaOrdered By: Jon Felder on 07-23-2024 Glucose [Mass/Vol] Glucose [Mass/volume ] in Serum or Plasma High 70-100 [facility] Comment on above: ADA recommended refe rence rangeRandom Glucose Reference Range is dependent on time and content of last meal. Glucose of more than 200 mg/dL in a nonstressed, ambulatory subject supports the diagnosis of Diabetes Mellitus. Laboratory - Microbiology an d Antimicrobial susceptibilityOrdered By: Jon Felder on 07-23-2024 Bacteria identified Cx Nom (Bld) NO GROWTH 5 DAYS [facility] Bacteria identified Cx Nom (Bld) NO GROWTH 5 DAYS [facility] Lactate [Moles/volume] in Se rum or PlasmaOrdered By: Jon Felder on 07-23-2024 Lactate [Moles/Vol] Lactate [Moles/volum e] in Serum or Plasma 0.5-1.9 [facility] Comment on above: Lactic Acid referenc e range has been updated to 0.5 1.9 mmol/L and the critical range of 2.0 or greater. Lactate [Moles/Vol] 1.6 mmol/L 0.5-1.9 [facility] Comment on above: Lactic Acid referenc e range has been updated to 0.5 1.9 mmol/L and the critical range of 2.0 or greater. Lactate [Moles/Vol] Lactate [Moles/volum e] in Serum or Plasma Critically high 0.5-1.9 [facility] Comment on above: Critical Result : Ca lled to and read back by: RADHA MONSALVE at: 07/23/2024 01:22:11 by:DHLactic Acid reference range has been updated to 0.5 1.9 mmol/L and the critical range of 2.0 or greater. Lactic Acidon 07-23-2024 Lactate [Moles/Vol] 4.0 mmol/L Off scale high 0.5-1.9 T [facility] Comment on above: Result Comment: Crit ical Result : Called to and read back by: RADHA MONSALVE at: 07/23/2024 01:22:11 by: Lactic Acid reference range has been updated to 0.5 ? 1.9 mmol/L and the critical range of 2.0 or greater. PERFORMED BY: [place] [address] PATHOLOGIST APPRAISAL COORDINATOR KARAN TINSLEY M.D. Performed By: #### C MP, CBC #### [address] Lactic Acid Reflexon 025 Lactic Acid Reflex 1.6 mmol/L Normal 0.5-1.9 [facility] Comment on above: Order Comment: PER R Cindy NANCIE COME BACK AT 0600 Result Comment: Lact ic Acid reference range has been updated to 0.5 ? 1.9 mmol/L and the critical range of 2.0 or greater. PERFORMED BY: [place] [address] PATHOLOGIST APPRAISAL COORDINATOR KARAN TINSLEY M.D. Performed By: #### C MP, CBC #### [address] Magnesiumon 07-23-2024 Magnesium Normal 1.9-2.7 [facility] Comment on above: Result Comment: Spec imen hemolyzed, redraw requested PERFORMED BY: [place] [phone] PATHOLOGIST APPRAISAL COORDINATOR KARAN TINSLEY M.D. Performed By: #### C MP, CBC #### [facility] [address] [place] [address] Magnesium [Mass/volume] in S lorraine or PlasmaOrdered By: Jon Felder on 07-23-2024 Magnesium [Mass/Vol] Magnesium [Mass/vol ume] in Serum or Plasma 1.9-2.7 [facility] Monocyte distribution width [Entitic volume] in Blood by AutomatedOrdered By: Jon Felder on 07-23-2024 Monocyte distribution width Auto (Bld) [Entitic vol] Monocyte distribution width [Entitic volume] in Blood by Automated 0.00-20.00 [facility] Monocyte distribution width Auto (Bld) [Entitic vol] 18.56 % 0.00-20.00 [facility] No Panel InformationOrdered By: Jhony Davis on 07-23-2024 Arterial Blood Base Excess -2.3 mmol/L -3.0-3.0 [facility] Arterial Blood Oxygen Content 7.8 mmol/L 6.6-9.7 [facility] Arterial Blood Oxygen Saturation 95.8 % 95.0-100.0 [facility] Arterial Blood Partial Pressure CO2 29.7 mm[Hg] Critically low 35.0-45.0 [facility] Arterial Blood Partial Pressure O2 82.4 mm[Hg] 80.0-100.0 [facility] Arterial Blood pH 7.46 High 7.35-7.45 [facility] Blood Gas Critical Value See comment [facility] Comment on above: Critical Value presley d on: 07/23/2024 at 11:06 Blood Gas Sample Site Left radial [facility] FiO2 21 % [facility] No Panel InformationOrdered By: Jon Felder on 07-23-2024 Estimated GFR (CKD-EPI) 51.220 mL/Min [facility] Creatinine Clearance (Chem 35.22 [facility] Potassium [Moles/volume] in Serum or PlasmaOrdered By: Jon Felder on 07-23-2024 Potassium [Moles/Vol] Potassium [Moles/v olume] in Serum or Plasma 3.5-5.1 [facility] Prolactinon 07-23-2024 Prolactin 24.67 ng/mL High 2.74-19.64 [facility] Comment on above: Result Comment: PERF ORMED BY: [facility] [address] [facility] [place] [address] PATHOLOGIST APPRAISAL COORDINATOR KARAN TINSLEY M.D. Performed By: #### C MP, CBC #### [facility] [address] [place] [address] Prolactin [Mass/volume] in S lorraine or PlasmaOrdered By: Jon Felder on 07-23-2024 Prolactin [Mass/Vol] Prolactin [Mass/vol ume] in Serum or Plasma High 2.74-19.64 [facility] Prolactin [Mass/Vol] 24.67 ng/mL High 2.74-19.64 [facility] Protein [Mass/volume] in Ser um or PlasmaOrdered By: Jon Felder on 07-23-2024 Protein [Mass/Vol] Protein [Mass/volume ] in Serum or Plasma 6.4-8.9 [facility] Redraw Mary 07-23-2024 AST [Catalytic activity/Vol] 23 U/L Normal 13-39 [facility] Comment on above: Order Comment: HEMOL YZZED Result Comment: PERF ORMED BY: [place] [address] PATHOLOGIST APPRAISAL COORDINATOR KARAN TINSLEY M.D. Performed By: #### R EDRAW NA, REDRAW MG, REDRAW K, REDRAW TP, REDRAW AST, REDRAW ALB #### [address] Redraw Albumin Levelon 07-23 Albumin [Mass/Vol] 3.8 g/dL Normal 3.5-5.7 [facility] Comment on above: Order Comment: HEMOL YZZED Performed By: #### R EDRAW NA, REDRAW MG, REDRAW K, REDRAW TP, REDRAW AST, REDRAW ALB #### [address] Redraw MagnesiumOrdered By: Jon Felder on 07-23-2024 Magnesium [Mass/Vol] 2.0 mg/dL 1.9-2.7 [facility] Comment on above: Order Comment: HEMOL YZZED Performed By: #### R EDRAW NA, REDRAW MG, REDRAW K, REDRAW TP, REDRAW AST, REDRAW ALB #### [facility] [address] Redraw Potassiumon Potassium [Moles/Vol] 4.0 mmol/L Normal 3.5-5.1 [facility] Comment on above: Order Comment: HEMOL YZZED Result Comment: Hemo lysis is present at a level that could interfere with the result. Contact lab if redraw is required Performed By: #### R EDRAW NA, REDRAW MG, REDRAW K, REDRAW TP, REDRAW AST, REDRAW ALB #### [facility] [address] [place] [address] Redraw Sodiumon 07-23-2024 Sodium [Moles/Vol] 130 mmol/L Low 136-145 [facility] Comment on above: Order Comment: HEMOL YZZED Performed By: #### R EDRAW NA, REDRAW MG, REDRAW K, REDRAW TP, REDRAW AST, REDRAW ALB #### [facility] [address] [place] [address] Redraw Total Proteinon 07-23 Protein [Mass/Vol] 6.2 g/dL Low 6.4-8.9 [facility] Comment on above: Order Comment: HEMOL YZZED Performed By: #### R EDRAW NA, REDRAW MG, REDRAW K, REDRAW TP, REDRAW AST, REDRAW ALB #### [facility] [address] [place] [address] Serum or plasma albumin/glob ulin mass ratioOrdered By: Jon Felder on 07-23-2024 Albumin/Globulin [Mass ratio] Serum or plasma albumin/globulin mass ratio [facility] Serum or plasma anion gap de terminationOrdered By: Jon Felder on 07-23-2024 Anion gap [Moles/Vol] Serum or plasma an ion gap determination High 6.0-15.0 [facility] Sodium [Moles/volume] in Ser um or PlasmaOrdered By: Jon Felder on 07-23-2024 Sodium [Moles/Vol] Sodium [Moles/volume ] in Serum or Plasma Low 136-145 [facility] Urea nitrogen [Mass/volume] in Serum or PlasmaOrdered By: Jon Felder on 07-23-2024 Urea nitrogen [Mass/Vol] Urea nitrogen [Mass/volume] in Serum or Plasma 10-20 [facility] X-ray reportOrdered By: Sedrick Frerera on 07-23-2024 Study report [facility] Main [place] [id number] XRay Report Signed Patient: Janelle Burt MR#: [id number] : 1940 Acct:[id number] Age/Sex: 83 / F ADM Date: 5 Loc: Room: [address] [place] [address] Type: ADM IN Attending Dr: Jhony Davis [...] Ferrera M.D. 07/23/2024 1:13 PM Dictation Location: [place] [address] Transcribed By: FUENTES 07/23/24 1313 Dictated By: Charli Ferrera MD 07/23/24 1311 Signed By: 07/23/24 1313 [facility] Work Phone: XR chest 1V portableon 07-23 XR chest 1V portable [facility] Main [address] [address] XRay Report Signed Patient: Janelle Burt MR#: [id number] : 1940 Acct:[id number] Age/Sex: 83 / F ADM Date: 07/22/24 Loc: Room: [id number] Type: ADM IN Attending Dr: Jhony Davis [...] Ferrera M.D. 07/23/2024 1:13 PM Dictation Location: [place] [address] Transcribed By: FUENTES 07/23/24 1313 Dictated By: Charli Ferrera MD 07/23/24 1311 Signed By: 07/23/24 1313 Normal [facility] Appearance of UrineOrdered B y: Asad Mcnally on 07-22-2024 Appearance (U) Urine appearance Clear [facility] Bacteria [Presence] in Urine by AutomatedOrdered By: Asad Mcnally on 07-22-2024 Bacteria Auto Ql (U) Bacteria [Presence] in Urine by Automated High None Seen [facility] Bacteria Auto Ql (U) 1+ [HPF] High None Seen [facility] Basophils Auto (Bld) [#/Vol] Ordered By: Asad Mcnally on 07-22-2024 Basophils (Bld) [#/Vol] Automated basophil count 0.0-0.2 [facility] Basophils/100 WBC Auto (Bld) Ordered By: Asad Mcnally on 07-22-2024 Basophils/100 WBC (Bld) Automated basophil % . [facility] Bilirubin Test strip Ql (U)O rdered By: Asad Mcnally on 07-22-2024 Bilirubin Ql (U) Bilirubin.total [Pre sence] in Urine by Test strip Negative [facility] Bilirubin Ql (U) Negative Negative [facility] Blood carbon dioxide, total measurement by calculation (moles/volume)Ordered By: Asad Mcnally on 07-22-2024 CO2 Calc (Bld) [Moles/Vol] Blood carbon dioxide, total measurement by calculation (moles/volume) [facility] CO2 Calc (Bld) [Moles/Vol] 25 mmol/L [facility] Chloride (Bld) [Moles/Vol]Or dered By: Asad Mcnally on 07-22-2024 Chloride [Moles/Vol] Whole blood chlorid e measurement Low 98-109 [facility] Color Auto (U)Ordered By: Liza Mcnally on 07-22-2024 Color (U) Color of Urine by [facility] Blood Count Auto Di ffon 07-22-2024 Basophils (Bld) [#/Vol] 0.1 10*3/uL Normal 0.0-0.2 [facility] Comment on above: Result Comment: PERF ORMED BY: [place] [address] PATHOLOGIST APPRAISAL COORDINATOR KARAN TINSLEY M.D. Performed By: #### C UU #### [address] Basophils/100 WBC (Bld) 0.8 % Normal . Eron scott [facility] Comment on above: Performed By: #### C UU #### [address] Eosinophils (Bld) [#/Vol] 0.1 10*3/uL Normal 0.0-0.45 [facility] Comment on above: Performed By: #### C UU #### [address] Eosinophils/100 WBC (Bld) 0.9 % Normal . [facility] Comment on above: Performed By: #### C UU #### [address] Erythrocyte distribution width (RBC) [Ratio] 13.4 % Normal 11.9-15.3 [facility] Comment on above: Performed By: #### C UU #### [address] Hematocrit (Bld) [Volume fraction] 41.2 % Normal 34.0-46.4 [facility] Comment on above: Performed By: #### C UU #### [address] Hemoglobin (Bld) [Mass/Vol] 14.2 g/dL Normal 11.8-15.4 [facility] Comment on above: Performed By: #### C UU #### [address] Lymphocytes (Bld) [#/Vol] 1.7 10*3/uL Normal 1.00-4.8 [facility] Comment on above: Performed By: #### C UU #### [address] Lymphocytes/100 WBC (Bld) 17.6 % Normal . [facility] Comment on above: Performed By: #### C UU #### [address] MCH (RBC) [Entitic mass] 30.6 pg Normal 24.7-34.3 [facility] Comment on above: Performed By: #### C UU #### [address] MCV (RBC) [Entitic vol] 88.7 fL Normal 80-100 T [facility] Comment on above: Performed By: #### C UU #### [address] Mean Corpuscular HGB Conc 34.5 g/dL Normal 32.0-35.0 [facility] Comment on above: Performed By: #### C UU #### [address] Monocytes (Bld) [#/Vol] 0.5 10*3/uL Normal 0.0-0.8 [facility] Comment on above: Performed By: #### C UU #### [address] Monocytes/100 WBC (Bld) 18.03 % Normal 0.00-20.00 [facility] Comment on above: Performed By: #### C UU #### [address] Monocytes/100 WBC (Bld) 5.3 % Normal . [facility] Comment on above: Performed By: #### C UU #### [address] Neutrophils (Bld) [#/Vol] 7.4 10*3/uL Normal 1.8-7.7 [facility] Comment on above: Performed By: #### C UU #### [address] Neutrophils/100 WBC (Bld) 75.4 % Normal . [facility] Comment on above: Performed By: #### C UU #### [address] NRBC% 0.1 /100{WBC} Normal 0-0.5 [facility] Comment on above: Performed By: #### C UU #### [address] Platelet mean volume (Bld) [Entitic vol] 7.4 fL Normal 6.3-10.7 [facility] Comment on above: Performed By: #### C UU #### [place] [address] [place] Platelets (Bld) [#/Vol] 228 10*3/uL Normal 150-450 [facility] Comment on above: Performed By: #### C UU #### [place] [address] [place] RBC (Bld) [#/Vol] 4.64 10*6/uL Normal 3.60-5.00 [facility] Comment on above: Performed By: #### C UU #### [address] WBC (Bld) [#/Vol] 9.8 10*3/uL Normal 3.8-11.6 [facility] Comment on above: Performed By: #### C UU #### [address] Comprehensive Metabolic Pane clarita 07-22-2024 Albumin [Mass/Vol] 4.1 g/dL Normal 3.5-5.7 [facility] Comment on above: Performed By: #### C UU #### [address] Albumin/Globulin [Mass ratio] 1.4 {ratio} Normal [facility] Comment on above: Performed By: #### C UU #### [address] ALP [Catalytic activity/Vol] 53 U/L Normal 34-104 [facility] Comment on above: Performed By: #### C UU #### [address] ALT [Catalytic activity/Vol] 12 U/L Normal 7-52 [facility] Comment on above: Performed By: #### C UU #### [address] Anion gap [Moles/Vol] 12.7 mmol/L Normal 6.0-15.[address] [facility] Comment on above: Performed By: #### C UU #### [address] AST [Catalytic activity/Vol] 20 U/L Normal 13-39 [facility] Comment on above: Performed By: #### C UU #### [address] Bilirubin [Mass/Vol] 0.9 mg/dL Normal 0.3-1.0 [facility] Comment on above: Performed By: #### C UU #### [address] Calcium [Mass/Vol] 9.5 mg/dL Normal 8.6-10.3 [facility] Comment on above: Performed By: #### C UU #### [address] Chloride [Moles/Vol] 97 mmol/L Low 98-107 [facility] Comment on above: Performed By: #### C UU #### [address] CO2 [Moles/Vol] 24.9 mmol/L Normal 21.0-31.0 [facility] Comment on above: Performed By: #### C UU #### [address] Creatinine [Mass/Vol] 0.99 mg/dL Normal 0.60-1.20 [facility] Comment on above: Performed By: #### C UU #### [address] Creatinine Clr Calc Pharmacy 38.06 Normal [facility] Comment on above: Result Comment: PERF ORMED BY: [place] [address] PATHOLOGIST APPRAISAL COORDINATOR KARAN TINSLEY M.D. Performed By: #### C UU #### [address] Estimated GFR 56.226 mL/Min Normal [facility] Comment on above: Performed By: #### C UU #### [address] Globulin (S) [Mass/Vol] 2.9 g/dL Normal T he [facility] Comment on above: Performed By: #### C UU #### [address] Glucose [Mass/Vol] 116 mg/dL High 70-100 [facility] Comment on above: Result Comment: Ray Glucose Reference Range is dependent on time and content of last meal. Glucose of more than 200 mg/dL in a nonstressed, ambulatory subject supports the diagnosis of Diabetes Mellitus. ADA recommended reference range Performed By: #### C UU #### [address] Potassium [Moles/Vol] 3.6 mmol/L Normal 3.5-5.1 [facility] Comment on above: Performed By: #### C UU #### [address] Protein [Mass/Vol] 7.0 g/dL Normal 6.4-8.9 [facility] Comment on above: Performed By: #### C UU #### [address] Sodium [Moles/Vol] 131 mmol/L Low 136-145 [facility] Comment on above: Performed By: #### C UU #### [address] Urea nitrogen [Mass/Vol] 18 mg/dL Normal 7-25 [facility] Comment on above: Performed By: #### C UU #### [address] Creatine KinaseOrdered By: Eron Mcnally on 07-22-2024 CK [Catalytic activity/Vol] 88 U/L [facility] Comment on above: Performed By: #### C UU #### [address] Creatine kinase [Enzymatic a ctivity/volume] in Serum or PlasmaOrdered By: Asad Mcnally on 07-22-2024 CK [Catalytic activity/Vol] Creatine kinase [Enzymatic activity/volume] in Serum or Plasma [facility] Creatinine (Bld) [Mass/Vol]O rdered By: Asad Mcnally on 07-22-2024 Creatinine [Mass/Vol] Whole blood creati nine measurement 0.6-1.3 [facility] Comment on above: ER/ESD physician is notified/shown all ISTAT results.Critical values may be confirmed by laboratory testing ifdeemed necessary by ER attending doctor. Dipstick and MicroscopicOrde red By: Asad Mcnally on 07-22-2024 Appearance (U) Clear Clear [facility] Comment on above: Order Comment: Name Collection Type:: Clean-Voided Midstream Performed By: #### C UU #### [place] [address] [place] Color (U) Light-Yellow Yellow [facility] Comment on above: Order Comment: Name Collection Type:: Clean-Voided Midstream Performed By: #### C UU #### [address] Ketones Ql (U) Negative Negative [facility] Comment on above: Order Comment: Name Collection Type:: Clean-Voided Midstream Performed By: #### C UU #### [address] Leukocyte esterase Test strip Ql (U) 2+ High Negative [facility] Comment on above: Order Comment: Name Collection Type:: Clean-Voided Midstream Performed By: #### C UU #### [place] [address] [place] pH (U) 8.0 [pH] 5.0-9.0 [facility] Comment on above: Order Comment: Name Collection Type:: Clean-Voided Midstream Performed By: #### C UU #### [place] [address] [place] Dipstick and Microscopicon 0 07-22-2024 Bacteria,Urine 1+ High None Seen [facility] Comment on above: Order Comment: Name Collection Type:: Clean-Voided Midstream Performed By: #### C UU #### [place] [address] [place] Bilirubin,Urine Negative Normal Negative [facility] Comment on above: Order Comment: Name Collection Type:: Clean-Voided Midstream Performed By: #### C UU #### [place] [address] [place] Glucose Ql (U) Normal Normal Normal [facility] Comment on above: Order Comment: Name Collection Type:: Clean-Voided Midstream Performed By: #### C UU #### [place] [address] [place] Hyaline Casts,Urine None Normal 0-8 [facility] Comment on above: Order Comment: Name Collection Type:: Clean-Voided Midstream Result Comment: PERF ORMED BY: [place] [address] PATHOLOGIST APPRAISAL COORDINATOR KARAN TINSLEY M.D. Performed By: #### C UU #### [address] Nitrite,Urine Negative Normal Negative [facility] Comment on above: Order Comment: Name Collection Type:: Clean-Voided Midstream Performed By: #### C UU #### [address] Occult Blood,Urine Negative Normal Negative [facility] Comment on above: Order Comment: Name Collection Type:: Clean-Voided Midstream Result Comment: PERF ORMED BY: [place] [address] PATHOLOGIST APPRAISAL COORDINATOR KARAN TINSLEY M.D. Performed By: #### C UU #### [address] Protein,Urine Negative Normal Negative [facility] Comment on above: Order Comment: Name Collection Type:: Clean-Voided Midstream Performed By: #### C UU #### [address] RBC,Urine 3-4 Normal 0-4 [facility] Comment on above: Order Comment: Name Collection Type:: Clean-Voided Midstream Performed By: #### C UU #### [address] Specificy [place],Urine 1.025 Normal 1.00 1-1.03 0 [facility] Comment on above: Order Comment: Name Collection Type:: Clean-Voided Midstream Performed By: #### C UU #### [address] Urobilinogen,Urine Normal Normal Normal [facility] Comment on above: Order Comment: Name Collection Type:: Clean-Voided Midstream Performed By: #### C UU #### [address] [place] [address] [place] WBC,Urine 20-49 High 0-4 [facility] Comment on above: Order Comment: Name Collection Type:: Clean-Voided Midstream Performed By: #### C UU #### [facility] [address] [place] [id number] [place] ECG 12 lead ECGon 07-22-2024 ECG 12 lead ECG [facility] Main [place] [address] [place] [address] Electrocardiograph Report Signed Patient: Janelle Burt MR#: [id number] : 1940 Acct:[id number] Age/Sex: 83 / F ADM Date: 07/22/24 Loc: Room: [address] [place] [address] Type: ADM IN Attending Dr: Jhony Davis [...] When compared with ECG of 27-Jan-2023 08:53, SC interval has decreased Incomplete right bundle branch block is now present Confirmed by ASAD MCNALLY MD ([id number]) on 07/24/2024 6:00:21 AM Referred By: Electronically Signed By: ASAD MCNALLY MD Transcribed By: [place] S[place] Jr[place] [address] Normal [facility] Eosinophils Auto (Bld) [#/Vo l]Ordered By: Asad Mcnally on 07-22-2024 Eosinophils (Bld) [#/Vol] Automated eosinophil count 0.0-0.45 [facility] Eosinophils/100 WBC Auto (Bl d)Ordered By: Asad Mcnally on 07-22-2024 Eosinophils/100 WBC (Bld) Automated eosinophil % . [facility] Epithelial cells.squamous [# /area] in Urine sediment by Automated countOrdered By: Asad Mcnally on 07-22-2024 Epithelial cells.squamous Auto (Urine sed) [#/Area] Epithelial cells.squamous [#/area] in Urine sediment by Automated count [facility] Epithelial cells.squamous Auto (Urine sed) [#/Area] N/A [facility] Erythrocyte distribution wid th Auto (RBC) [Ratio]Ordered By: Asad Mcnally on 07-22-2024 Erythrocyte distribution width (RBC) [Ratio] Erythrocyte distribution width [Ratio] by Automated count 11.9-15.3 [facility] Erythrocytes [#/area] in Uri ne sediment by Automated countOrdered By: Asad Mcnally on 07-22-2024 RBC Auto (Urine sed) [#/Area] Erythrocytes [#/area] in Urine sediment by Automated count 0-4 [facility] RBC Auto (Urine sed) [#/Area] 3-4 [HPF] 0-4 [facility] Glucose Glucometer (BldC) [M ass/Vol]Ordered By: Asad Mcnally on 07-22-2024 Glucose [Mass/Vol] Capillary blood gluc ose measurement by glucometer (mass/volume) High 70-105 [facility] Glucose [Mass/Vol] Capillary blood gluc ose measurement by glucometer (mass/volume) [facility] Comment on above: Random Glucose Refer ence Range is dependent on time and content of last meal. Glucose of more than 200 mg/dL in a nonstressed, ambulatory subject supports the diagnosis of Diabetes Mellitus. Glucose Poct GlucometersOrde red By: Asad Mcnally on 07-22-2024 Glucose [Mass/Vol] 113 mg/dL [facility] Comment on above: Result Comment: Ray Glucose Reference Range is dependent on time and content of last meal. Glucose of more than 200 mg/dL in a nonstressed, ambulatory subject supports the diagnosis of Diabetes Mellitus. PERFORMED BY: [place] [address] PATHOLOGIST APPRAISAL COORDINATOR KARAN TINSLEY M.D. Performed By: #### C MP, CBC #### [facility] [address] Random Glucose Refer ence Range is dependent on time and content of last meal. Glucose of more than 200 mg/dL in a nonstressed, ambulatory subject supports the diagnosis of Diabetes Mellitus. Glucose [Mass/volume] in Uri ne by Test stripOrdered By: Asad Mcnally on 07-22-2024 Glucose Test strip (U) [Mass/Vol] Glucose [Mass/volume] in Urine by Test strip Normal [facility] Glucose Test strip (U) [Mass/Vol] Normal mg/dL Normal [facility] Hematocrit Auto (Bld) [Volum e fraction]Ordered By: Asad Mcnally on 07-22-2024 Hematocrit (Bld) [Volume fraction] Hematocrit [Volume Fraction] of Blood by Automated count 34.0-46.4 [facility] Hemoglobin Calc (Bld) [Mass/ Vol]Ordered By: Asad Mcnally on 07-22-2024 Hemoglobin (Bld) [Mass/Vol] Blood hemoglobin measurement by calculation (mass/volume) 12.0-17.0 [facility] Hemoglobin Test strip Ql (U) Ordered By: Asad Mcnally on 07-22-2024 Hemoglobin Ql (U) Hemoglobin [Presence ] in Urine by Test strip Negative [facility] Hemoglobin Ql (U) Negative Negative [facility] Hemoglobin [Mass/volume] in BloodOrdered By: Asad Mcnally on 07-22-2024 Hemoglobin (Bld) [Mass/Vol] Hemoglobin [Mass/volume] in Blood 11.8-15.4 [facility] Hyaline casts [#/area] in Ur ine sediment by Automated countOrdered By: Asad Mcnally on 07-22-2024 Hyaline casts Auto (Urine sed) [#/Area] Hyaline casts [#/area] in Urine sediment by Automated count 0-8 [facility] Hyaline casts Auto (Urine sed) [#/Area] None [LPF] 0-8 [facility] INR in Platelet poor plasma by Coagulation assayOrdered By: Asad Mcnally on 07-22-2024 INR Coag (PPP) [Relative time] INR in Platelet poor plasma by Coagulation assay [facility] Comment on above: INR Therapeutic Rang [...] 07-22-2024 Chloride [Moles/Vol] 97.0 mmol/L Low 98-109 [facility] Comment on above: Performed By: #### E RBMP #### [address] Creatinine [Mass/Vol] 1.2 mg/dL 0.6-1.3 [facility] Comment on above: Result Comment: ER/E SD physician is notified/shown all ISTAT results. Critical values may be confirmed by laboratory testing if deemed necessary by ER attending doctor. Performed By: #### E RBMP #### [address] ER/ESD physician is notified/shown all ISTAT results.Critical values may be confirmed by laboratory testing ifdeemed necessary by ER attending doctor. Glucose [Mass/Vol] 117 mg/dL High 70-105 [facility] Comment on above: Result Comment: PERF ORMED BY: [place] [address] PATHOLOGIST APPRAISAL COORDINATOR KARAN TINSLEY M.D. Performed By: #### E RBMP #### [address] Hematocrit (Bld) [Volume fraction] 43.0 % 38.0-51.0 [facility] Comment on above: Performed By: #### E RBMP #### [address] Hemoglobin (Bld) [Mass/Vol] 14.6 g/dL 12.0-17.0 [facility] Comment on above: Performed By: #### E RBMP #### [address] Potassium [Moles/Vol] 3.7 mmol/L 3.5-4.9 [facility] Comment on above: Performed By: #### E RBMP #### [facility] [address] Sodium [Moles/Vol] 132 mmol/L Low 138-146 [facility] Comment on above: Performed By: #### E RBMP #### [facility] [address] Urea nitrogen [Mass/Vol] 18 mg/dL 11-21 [facility] Comment on above: Performed By: #### E RBMP #### [facility] [address] [place] [address] [place] ISTAT ER Chem8+ Panelon 06-28 CO2 [Moles/Vol] 25 mmol/L Normal 23-29 [facility] Comment on above: Performed By: #### E RBMP #### [facility] [address] [place] [address] ISTAT Ionized Calcium 1.18 mol/L Normal 1.12-1.32 [facility] Comment on above: Performed By: #### E RBMP #### [facility] [address] [place] [address] Ketones Test strip Ql (U)Ord ered By: Asad Mcnally on 07-22-2024 Ketones Ql (U) Ketones [Presence] i n Urine by Test strip Negative [facility] Leukocyte esterase [Presence ] in Urine by Test stripOrdered By: Asad Mcnally on 07-22-2024 Leukocyte esterase Test strip Ql (U) Leukocyte esterase [Presence] in Urine by Test strip High Negative [facility] Leukocytes [#/area] in Urine sediment by Automated countOrdered By: Asad Mcnally on 07-22-2024 WBC Auto (Urine sed) [#/Area] Leukocytes [#/area] in Urine sediment by Automated count High 0-4 [facility] WBC Auto (Urine sed) [#/Area] 20-49 [HPF] High 0-4 [facility] Leukocytes [#/volume] correc chacho for nucleated erythrocytes in Blood by Automated counOrdered By: Asad Mcnally on 07-22-2024 WBC corrected for nucl RBC Auto (Bld) [#/Vol] Leukocytes [#/volume] corrected for nucleated erythrocytes in Blood by Automated coun 3.8-11.6 [facility] Lymphocytes Auto (Bld) [#/Vo l]Ordered By: Asad Mcnally on 07-22-2024 Lymphocytes (Bld) [#/Vol] Lymphocytes [#/volume] in Blood by Automated count 1.00-4.8 [facility] Lymphocytes/100 WBC Auto (Bl d)Ordered By: Asad Mcnally on 07-22-2024 Lymphocytes/100 WBC (Bld) Lymphocytes/100 leukocytes in Blood by Automated count . [facility] MCH Auto (RBC) [Entitic mass ]Ordered By: Asad Mcnally on 07-22-2024 MCH (RBC) [Entitic mass] MCH [Entitic mass] by Automated count 24.7-34.3 [facility] MCHC Auto (RBC) [Mass/Vol]Or dered By: Asad Mcnally on 07-22-2024 MCHC (RBC) [Mass/Vol] MCHC [Mass/volume] by Automated count 32.0-35.0 [facility] MCV Auto (RBC) [Entitic vol] Ordered By: Asad Mcnally on 07-22-2024 MCV (RBC) [Entitic vol] MCV [Entitic vol ume] by Automated count 80-100 [facility] Monocyte distribution width [Entitic volume] in Blood by AutomatedOrdered By: Asad Mcnally on 07-22-2024 Monocyte distribution width Auto (Bld) [Entitic vol] Monocyte distribution width [Entitic volume] in Blood by Automated 0.00-20.00 [facility] Monocytes Auto (Bld) [#/Vol] Ordered By: Asad Mcnalyl on 07-22-2024 Monocytes (Bld) [#/Vol] Automated blood monocyte count 0.0-0.8 [facility] Monocytes/100 WBC Auto (Bld) Ordered By: Asad Mcnally on 07-22-2024 Monocytes/100 WBC (Bld) Automated monocyte % . [facility] Neutrophils Auto (Bld) [#/Vo l]Ordered By: Asad Mcnally on 07-22-2024 Neutrophils (Bld) [#/Vol] Neutrophils [#/volume] in Blood by Automated count 1.8-7.7 [facility] Neutrophils/100 WBC Auto (Bl d)Ordered By: Asad Mcnally on 04-26-2025 Neutrophils/100 WBC (Bld) Automated neutrophil % . [facility] Nitrite Test strip Ql (U)Ord ered By: Asad Mcnally on 07-22-2024 Nitrite Ql (U) Nitrite [Presence] i n Urine by Test strip Negative [facility] Nitrite Ql (U) Negative Negative [facility] Nucleated erythrocytes [Pres ence] in Blood by Automated countOrdered By: Asad Mcnally on 07-22-2024 Nucleated RBC Auto Ql (Bld) Nucleated erythrocytes [Presence] in Blood by Automated count 0-0.5 [facility] Partial Thromboplastin Timeo n 07-22-2024 aPTT Coag (Bld) [Time] 33.6 s Normal 25.1-36.5 [facility] Comment on above: Result Comment: A he matocrit value greater than 55% may lead to inaccurate results in coagulation testing. Patients having hematocrit values >55% require a special collection tube for coagulation studies. Please contact the laboratory at [phone] for redraw instructions. PERFORMED BY: [place] [address] PATHOLOGIST APPRAISAL COORDINATOR KARAN TINSLEY M.D. Performed By: #### C UU #### [address] Platelet mean volume Auto (B ld) [Entitic vol]Ordered By: Asad Mcnally on 07-22-2024 Platelet mean volume (Bld) [Entitic vol] Platelet mean volume [Entitic volume] in Blood by Automated count 6.3-10.7 [facility] Platelets Auto (Bld) [#/Vol] Ordered By: Asad Mcnally on 07-22-2024 Platelets (Bld) [#/Vol] Platelets [#/vol ume] in Blood by Automated count 150-450 [facility] Potassium (Bld) [Moles/Vol]O rdered By: Asad Mcnally on 07-22-2024 Potassium [Moles/Vol] Whole blood potass ium measurement 3.5-4.9 [facility] Protein Test strip (U) [Mass /Vol]Ordered By: Asad Mcnally on 07-22-2024 Protein (U) [Mass/Vol] Protein [Mass/vol ume] in Urine by Test strip Negative [facility] Protein (U) [Mass/Vol] Negative Negative [facility] Prothrombin Time INROrdered By: Asad Mcnally on 07-22-2024 INR Coag (PPP) [Relative time] 1.3 {INR} [facility] Comment on above: Result Comment: INR [...] 4.5 Performed By: #### C UU #### [facility] [address] [place] [address] INR Therapeutic Rang e A) Pre- and [...] Coag (PPP) [Time] 14.9 s High 9.0-12.9 [facility] Comment on above: Result Comment: A he matocrit value greater than 55% may lead to inaccurate results in coagulation testing. Patients having hematocrit values >55% require a special collection tube for coagulation studies. Please contact the laboratory at [phone] for redraw instructions. Performed By: #### C UU #### [facility] [address] [place] [address] A hematocrit value g reater than 55% may lead to inaccurate results in coagulation testing. Patients having hematocrit values >55% require a special collection tube for coagulation studies. Please contact the laboratory at [phone] for redraw instructions. Prothrombin time (PT)Ordered By: sAad Mcnally on 07-22-2024 PT Coag (PPP) [Time] Prothrombin time (PT) High 9.0- 12.9 [facility] Comment on above: A hematocrit value g reater than 55% may lead to inaccurate results in coagulation testing. Patients having hematocrit values >55% require a special collection tube for coagulation studies. Please contact the laboratory at [phone] for redraw instructions. RBC Auto (Bld) [#/Vol]Ordere d By: Asad Mcnally on 07-22-2024 RBC (Bld) [#/Vol] Erythrocytes [#/volu me] in Blood by Automated count 3.60-5.00 [facility] Sodium (Bld) [Moles/Vol]Orde red By: Asad Mcnally on 07-22-2024 Sodium [Moles/Vol] Whole blood sodium measurement Low 138-146 [facility] Specific gravity Test strip (U) [Rel density]Ordered By: Asad Mcnally on 07-22-2024 Specific gravity (U) [Rel density] Specific gravity of Urine by Test strip 1.001-1.03 0 [facility] Specific gravity (U) [Rel density] 1.025 1.001-1.03 0 [facility] Troponin I High Sensitivityo n 07-22-2024 Troponin I High Sensitivity 9 Normal 0-15 [facility] Comment on above: Result Comment: The Troponin units of report have been changed to meet the Chest Pain Accreditation requirement, element EC5.M1l2. Troponin units are changed from pg/ml to ng/L. Also, the decimal is removed and results are in whole numbers. PERFORMED BY: [place] [address] PATHOLOGIST APPRAISAL COORDINATOR KARAN TINSLEY M.D. Performed By: #### C UU #### [address] Troponin I.cardiac [Mass/vol ume] in Serum or Plasma by Detection limit <= 0.01 ng/Ordered By: Asad Mcnally on 07-22-2024 Troponin I.cardiac DL <= 0.01 ng/mL [Mass/Vol] Troponin I.cardiac [Mass/volume] in Serum or Plasma by Detection limit <= 0.01 ng/ 0-15 [facility] Comment on above: The Troponin units [...] <= 0.01 ng/mL [Mass/Vol] 9 ng/L 0-15 [facility] Comment on above: The Troponin units [...] (BUN) measurement in whole blood (mass/volume) 11-21 [facility] Urine Cultureon 07-22-2024 Bacteria identified Cx Nom (U) ORGANISM: Pseudomonas aeruginosa (O:PSEAER) [place] Count <10,000 Aerobic TONY Charge (NMIC56) SUSCEPTIBILITY [...] RESISTANT TO ALL B-LACTAM DRUGS. PERFORMED BY: [address] [place] [address] PATHOLOGIST APPRAISAL COORDINATOR KARAN TINSLEY M.D. Normal [facility] Comment on above: Performed By: #### C UU #### [facility] [address] [place] [id number] [facility] Urine cultureOrdered By: Biju Mcnally on 07-22-2024 Bacteria identified Cx Nom (U) Abnormal [facility] Bacteria identified Cx Nom (U) Pseudomonas aeruginosa Abnormal [facility] Urobilinogen Test strip (U) [Mass/Vol]Ordered By: Asad Mcnally on 07-22-2024 Urobilinogen (U) [Mass/Vol] Urobilinogen [Mass/volume] in Urine by Test strip Normal [facility] Urobilinogen (U) [Mass/Vol] Normal mg/dL Normal [facility] WBC Auto (Bld) [#/Vol]Ordere d By: Asad Mcnally on 07-22-2024 WBC (Bld) [#/Vol] Leukocytes [#/volume ] in Blood by Automated count 3.8-11.6 [facility] Whole blood ionized calcium measurement (moles/volume)Ordered By: Asad Mcnally on 07-22-2024 Calcium.ionized (Bld) [Moles/Vol] Whole blood ionized calcium measurement (moles/volume) 1.12-1.32 [facility] Calcium.ionized (Bld) [Moles/Vol] 1180 mmol/L 1.12-1.32 [facility] aPTT in Platelet poor plasma by Coagulation assayOrdered By: Asad Mcnally on 07-22-2024 aPTT Coag (PPP) [Time] Activated partial thromboplastin time (aPTT) in platelet poor plasma by coagulation a 25.1-36.5 [facility] Comment on above: A hematocrit value g reater than 55% may lead to inaccurate results in coagulation testing. Patients having hematocrit values >55% require a special collection tube for coagulation studies. Please contact the laboratory at [phone] for redraw instructions. aPTT Coag (PPP) [Time] 33.6 s 25.1-36.5 [facility] Comment on above: A hematocrit value g reater than 55% may lead to inaccurate results in coagulation testing. Patients having hematocrit values >55% require a special collection tube for coagulation studies. Please contact the laboratory at [phone] for redraw instructions. pH Test strip (U)Ordered By: Asad Mcnally on 07-22-2024 pH (U) pH of Urine by Test strip 5.0-9.0 [facility] ALL LIPID PROFILE (FASTING)o n 06-29-2024 CHOL HDL RATIO 2.2 [facility] Comment on above: 3.3 - 4.4 LOW RISK 4.4 - 7.1 AVERAGE RISK 7.1 - 11.0 MODERATE RISK >11.0 HIGH RISK Cholesterol [Mass/Vol] 126 mg/dL NINF - 200 mg/dL [facility] Cholesterol in HDL [Mass/Vol] 56 mg/dL 40 - 60 mg/dL [facility] Comment on above: > or =60 mg/dl - LOW CARDIOVASCULAR RISK <40 mg/dl - HIGH CARDIOVASCULAR RISK Magnesium [Mass/Vol] 54.6 mg/dL [facility] Comment on above: <100 mg/dl OPTIMAL 100-129 mg/dl NEAR OR ABOVE OPTIMAL 130-159 mg/dl BORDERLINE HIGH 160-189 mg/dl HIGH >190 mg/dl VERY HIGH Magnesium [Mass/Vol] 15.4 mg/dL [facility] Triglyceride [Mass/Vol] 77 mg/dL NINF - 150 mg/dL [facility] Cholesterol in LDL Calc [Mas s/Vol]on 06-29-2024 Cholesterol in LDL [Mass/Vol] Cholesterol in LDL [Mass/volume] in Serum or Plasma by calculation [facility] Comment on above: <100 mg/dl [id number] 0-129 mg/dl NEAR OR ABOVE [id number] mg/dl BORDERLINE [id number] mg/dl HIGH>190 mg/dl VERY HIGH Cholesterol in LDL [Mass/Vol] 54.6 mg/dL [facility] Comment on above: <100 mg/dl [id number] 0-129 mg/dl NEAR OR ABOVE [id number] mg/dl BORDERLINE [id number] mg/dl HIGH>190 mg/dl VERY HIGH Cholesterol in VLDL Calc [Ma ss/Vol]on 06-29-2024 Cholesterol in VLDL [Mass/Vol] Cholesterol in VLDL [Mass/volume] in Serum or Plasma by calculation [facility] Cholesterol in VLDL [Mass/Vol] 15.4 mg/dL [facility] Globulin Calc (S) [Mass/Vol] on 06-29-2024 Globulin (S) [Mass/Vol] Serum globulin m easurement by calculation (mass/volume) [facility] Globulin (S) [Mass/Vol] 3.2 g/dL F [facility] HMHP LIVER PANELon Albumin [Mass/Vol] 3.3 g/dL Low 3.4 - 5.0 g/dL [facility] ALBUMIN GLOBULIN RATIO 1 NO [facility] ALP [Catalytic activity/Vol] 66 U/L 46 - 116 U/L [facility] ALT [Catalytic activity/Vol] 15 U/L 14 - 59 U/L [facility] AST [Catalytic activity/Vol] 19 U/L 15 - 37 U/L [facility] Bilirubin [Mass/Vol] 0.5 mg/dL 0.2 - 1 .0 mg/dL [facility] Bilirubin.indirect [Mass/Vol] 0.2 mg/dL 0.0 - 0.2 mg/dL [facility] Globulin (S) [Mass/Vol] 3.2 g/dL N [facility] Interpretation and review of laboratory results Abnormal [facility] Protein [Mass/Vol] 6.5 g/dL 6.4 - 8.2 g/dL [facility] Laboratory - Chemistry and C hemistry - challengeon 06-29-2024 Albumin [Mass/Vol] 3.3 g/dL Low 3.4-5.0 [facility] ALP [Catalytic activity/Vol] 66 U/L 46-116 [facility] ALT [Catalytic activity/Vol] 15 U/L 14-59 [facility] AST [Catalytic activity/Vol] 19 U/L 15-37 [facility] Bilirubin [Mass/Vol] 0.5 mg/dL 0.2-1.0 [facility] Bilirubin.direct [Mass/Vol] 0.2 mg/dL 0.0-0.2 [facility] Cholesterol [Mass/Vol] 126 mg/dL <=200 Fi [facility] Cholesterol in HDL [Mass/Vol] 56 mg/dL 40-60 [facility] Comment on above: > or =60 mg/dl - LOW CARDIOVASCULAR RISK<40 mg/dl - HIGH CARDIOVASCULAR RISK Protein [Mass/Vol] 6.5 g/dL 6.4-8.2 [facility] Triglyceride [Mass/Vol] 77 mg/dL <=150 F [facility] Serum or plasma albumin/glob ulin mass ratioon 06-29-2024 Albumin/Globulin [Mass ratio] Serum or plasma albumin/globulin mass ratio [facility] Albumin/Globulin [Mass ratio] 1.0 {ratio} [facility] Serum or plasma total choles terol/high density lipoprotein (HDL) cholesterol mass andrew 06-29-2024 Cholesterol.total/Shira sterol in HDL [Mass ratio] Serum or plasma total cholesterol/high density lipoprotein (HDL) cholesterol mass rat [facility] Comment on above: 3.3 - 4.4 LOW RISK4. 4 - 7.1 AVERAGE RISK7.1 - 11.0 MODERATE RISK>11.0 HIGH RISK Cholesterol.total/Shira sterol in HDL [Mass ratio] 2.2 {ratio} [facility] Comment on above: 3.3 - 4.4 LOW RISK4. 4 - 7.1 AVERAGE RISK7.1 - 11.0 MODERATE RISK>11.0 HIGH RISK Erythrocyte distribution wid th Auto (RBC) [Ratio]on 03-21-2024 Erythrocyte distribution width (RBC) [Ratio] Erythrocyte distribution width [Ratio] by Automated count 11.0-15.0 [facility] Estimated glomerular filtrat ion rate (GFR) non- Americanon 03-21-2024 GFR/1.73 sq M.predicted among non-blacks MDRD (S/P/Bld) [Vol rate/Area] Estimated glomerular filtration rate (GFR) non- Low >=60 mL/min/1.7 3m 2 [facility] Hematocrit Auto (Bld) [Volum e fraction]on 03-21-2024 Hematocrit (Bld) [Volume fraction] Hematocrit [Volume Fraction] of Blood by Automated count 36.0-48.0 [facility] Hemoglobin [Mass/volume] in Bloodon 03-21-2024 Hemoglobin (Bld) [Mass/Vol] Hemoglobin [Mass/volume] in Blood 12.0-16.0 [facility] Laboratory - Chemistry and C hemistry - challengeon 03-21-2024 Bilirubin Ql (U) Negative NEGATIVE [facility] Glucose (U) [Mass/Vol] Negative [facility] Ketones Ql (U) Negative NEGATIVE [facility] pH (U) 6.0 [pH] 5.0-9.0 [facility] Specific gravity (U) [Rel density] 1.010 1.005-1.02 5 [facility] Urobilinogen Qn (U) 0.2 {Carlos'U}/dL 0.2-1.0 [facility] Albumin [Mass/Vol] 3.7 g/dL 3.4-5.0 [facility] Calcium [Mass/Vol] 9.6 mg/dL 8.5-10.1 [facility] Chloride [Moles/Vol] 98 mmol/L 98-107 [facility] CO2 [Moles/Vol] 31.5 mmol/L 21.0-32.0 [facility] Creatinine [Mass/Vol] 1.22 mg/dL High 0.55-1.02 [facility] Free T4 [Mass/Vol] 1.46 ng/dL 0.76-1.46 [facility] GFR/1.73 sq M.predicted MDRD (S/P/Bld) [Vol rate/Area] 51 mL/min/{1.73_m2} Low >=60 mL/min/1.7 3m 2 [facility] Glucose [Mass/Vol] 92 mg/dL 74-106 [facility] Magnesium [Mass/Vol] 1.9 mg/dL 1.8-2.4 [facility] Potassium [Moles/Vol] 4.0 mmol/L 3.5-5.1 [facility] Sodium [Moles/Vol] 136 mmol/L 136-145 [facility] TSH Qn 2.019 m[IU]/L 0.358-3.74 0 [facility] Urate [Mass/Vol] 4.4 mg/dL 2.6-6.0 [facility] Urea nitrogen [Mass/Vol] 30.0 mg/dL High 7.0-18.0 [facility] Urea nitrogen/Creatinine [Mass ratio] 24.6 mg/mg [facility] Laboratory - Specimen inform ationon 03-21-2024 Appearance (U) CLEAR CLEAR [facility] [facility] Color (U) LT. YELLOW YELLOW [facility] Laboratory - Urinalysison Leukocyte esterase Test strip Ql (U) TRACE Abnormal NEGATIVE [facility] Mucus Ql (Urine sed) TRACE Abnormal NONE SEEN [facility] Nitrite Ql (U) Negative NEGATIVE [facility] Protein (U) [Mass/Vol] 7.5 mg/dL <=11.9 [facility] Protein Ql (U) Negative NEG/TRACE [facility] Leukocytes [#/volume] correc chacho for nucleated erythrocytes in Blood by Automated counon 03-21-2024 WBC corrected for nucl RBC Auto (Bld) [#/Vol] Leukocytes [#/volume] corrected for nucleated erythrocytes in Blood by Automated coun 4.0-11.0 [facility] MCH Auto (RBC) [Entitic mass ]on 03-21-2024 MCH (RBC) [Entitic mass] MCH [Entitic mass] by Automated count 26.7-34.0 [facility] MCHC Auto (RBC) [Mass/Vol]on 03-21-2024 MCHC (RBC) [Mass/Vol] MCHC [Mass/volume] by Automated count 29.9-35.2 [facility] MCV Auto (RBC) [Entitic vol] on 03-21-2024 MCV (RBC) [Entitic vol] MCV [Entitic vol ume] by Automated count 81.0-99.0 [facility] No Panel Informationon 03-21 Urine Bacteria TRACE #/HPF Abnormal NONE SEEN [facility] Urine Culture Reflexed NO [facility] Urine Occult Blood Negative NEGATIVE [facility] Urine Other Casts NONE SEEN #/LPF NONE SEEN [facility] Urine Other Crystals None Seen #/HPF None Seen [facility] Urine Random Creatinine 84.33 mg/dL 20.0 0-300. 00 [facility] Urine RBC 0-2 #/HPF 0-2 [facility] Urine Squamous Epithelial Cells FEW #/LPF Abnormal NONE/RARE [facility] Urine WBC 0-2 #/HPF Abnormal NONE SEEN [facility] 25-Hydroxy Vitamin D Total 65.9 ng/mL [facility] Comment on above: <20 ng/mL Vit D defi cient20-<30 ng/mL Vit D [id number] ng/mL Vit D sufficient>100 ng/mL Potential Toxicity Parathyroid Hormone (Intact) 16 pg/mL 15-65 [facility] Comment on above: Performed at: [place] [id number] Director: Lux Adorno PhD, Phone: [phone] Phosphorus Level 3.7 mg/dL 2.6-4.7 [facility] Platelet mean volume Auto (B ld) [Entitic vol]on 03-21-2024 Platelet mean volume (Bld) [Entitic vol] Platelet mean volume [Entitic volume] in Blood by Automated count Low 9.5-13.5 [facility] Platelets Auto (Bld) [#/Vol] on 03-21-2024 Platelets (Bld) [#/Vol] Platelets [#/vol ume] in Blood by Automated count 150-450 [facility] RBC Auto (Bld) [#/Vol]on RBC (Bld) [#/Vol] Erythrocytes [#/volu me] in Blood by Automated count 4.20-5.40 [facility] Serum or plasma anion gap de terminationon 03-21-2024 Anion gap [Moles/Vol] Serum or plasma an ion gap determination [facility] Urine protein/creatinine rat ioon 03-21-2024 Protein/Creatinine (U) [Ratio] Urine protein/creatinine ratio [facility] ED Note-Physicianon 03-10-20 ED Note-Physician ED Note-Physician Basic Information Time Seen: Julio Escalante PA-C 03/06/2024 14:57 Chief Complaint Pt to ED for vision changes. Has had issues intermittently since january. Went to [facility] who sent over for stroke [...] made to ensure accuracy, however, inadvertently computerized beadworker mistakes may be present. Appropriate healthcare PPE [...] 15:17:00) Lymph Auto: 25 % (03/06/24 15:17:00) Clinch Auto: 10.2 % (03/06/24 15:17:00) Eos Auto: 1 % (12/ (more content not included)... Normal [facility] Comment on above: Result Comment: Elec [...] Locations R1: This test was performed at: [facility], [address] [place] [address], [facility] , , [facility] Comment on above: Performed By: #### 2 [id number] #### [facility] [address] [place] [address] Lab Miscellaneous-LCon 03-08 Lab Miscellaneous COMMENT Invalid Interpretation Code [facility] Comment on above: Result Comment: Test Ordered: [id number] Hemoglobin A1c Hemoglobin A1c 5.4 % CB Reference Range: 4.8-5.6 Prediabetes: 5.7 - 6.4 Diabetes: >6.4 Glycemic control for adults with diabetes: <7.0 Performed at: [facility] [address] [place], [place] [id number] PhD Tila Wasserman Performed By: #### 1 [id number] #### [facility] [address] [place] [address] BMPon 03-07-2024 Anion gap [Moles/Vol] 11 mmol/L Normal 6-16 [facility] Comment on above: Performed By: #### 2 [id number] #### [facility] [address] [place] [address] Calcium [Mass/Vol] 9.3 mg/dL Normal 8.9-11.1 [facility] Comment on above: Performed By: #### 2 [id number] #### [facility] [address] [place] [address] Chloride [Moles/Vol] 97 mmol/L Low 101-111 [facility] Comment on above: Performed By: #### 2 [id number] #### [facility] [address] [place] [address] CO2 [Moles/Vol] 26 mmol/L Normal 21-31 [facility] Comment on above: Performed By: #### 2 [id number] #### [facility] [address] [place] [address] Creatinine [Mass/Vol] 0.9 mg/dL Normal 0.5-1.3 [facility] Comment on above: Performed By: #### 2 [id number] #### [facility] [address] [place] [address] Glucose [Mass/Vol] 109 mg/dL Normal 55-199 [facility] Comment on above: Performed By: #### 2 [id number] #### [facility] [address] [place] [address] Potassium [Moles/Vol] 3.8 mmol/L Normal 3.5-5.3 [facility] Comment on above: Performed By: #### 2 [id number] #### [facility] [address] [place] [address] Sodium [Moles/Vol] 130 mmol/L Low 135-145 [facility] Comment on above: Performed By: #### 2 [id number] #### [facility] [address] [place] [address] Urea nitrogen [Mass/Vol] 16 mg/dL Normal 5-21 [facility] Comment on above: Performed By: #### 2 [id number] #### [facility] [address] [place] [address] Urea nitrogen/Creatinine [Mass ratio] 18 No Units Normal 10-20 [facility] Comment on above: Performed By: #### 2 [id number] #### [facility] [address] [place] [address] CBC w/ Auto Diffon 4 Basophils/100 WBC (Bld) 0.5 % Normal 0.0-2.0 [facility] Comment on above: Performed By: #### 2 [id number] #### [facility] [address] [place] [address] Basophils/Leukocytes Auto (Bld) [Pure # fraction] 0.0 E9/L Normal 0.0-0.2 [facility] Comment on above: Performed By: #### 2 [id number] #### [facility] [address] [place] [address] Eosinophils (Bld) [#/Vol] 0.1 E9/L Normal 0.0-0.5 [facility] Comment on above: Performed By: #### 2 [id number] #### [facility] [address] [place] [address] Eosinophils/100 WBC (Bld) 0.8 % Normal 0.0-8.0 [facility] Comment on above: Performed By: #### 2 [id number] #### [facility] [address] [place] [address] Erythrocyte distribution width (RBC) [Ratio] 13.6 % Normal 10.9-14.2 [facility] Comment on above: Performed By: #### 2 486273 #### [facility] [address] [place] [address] Hematocrit (Bld) [Volume fraction] 42.2 % Normal 34.0-46.0 [facility] Comment on above: Performed By: #### 2 [id number] #### [facility] [address] [place] [address] Hemoglobin (Bld) [Mass/Vol] 15.0 g/dL Normal 12.0-16.0 [facility] Comment on above: Performed By: #### 2 [id number] #### [facility] [address] [place] [address] Lymphocytes (Bld) [#/Vol] 1.2 E9/L Normal 1.0-4.0 [facility] Comment on above: Performed By: #### 2 034142 #### [facility] [address] [place] [address] Lymphocytes/100 WBC (Bld) 13.0 % Low 14.0-50.0 [facility] Comment on above: Performed By: #### 2 [id number] #### [facility] [address] [place] [address] MCH (RBC) [Entitic mass] 31.3 pg Normal 27.0-34.0 [facility] Comment on above: Performed By: #### 2 [id number] #### [facility] [address] [place] [address] MCHC (RBC) [Mass/Vol] 35.7 g/dL Normal 31.4-36.0 [facility] Comment on above: Performed By: #### 2 [id number] #### [facility] [address] [place] [address] MCV (RBC) [Entitic vol] 87.8 fL Normal 80.0-100.0 [facility] Comment on above: Performed By: #### 2 [id number] #### [facility] [address] [place] [address] Monocytes (Bld) [#/Vol] 0.9 E9/L Normal 0.2-1.0 [facility] Comment on above: Performed By: #### 2 [id number] #### [facility] [address] [place] [address] Neutrophils (Bld) [#/Vol] 7.2 E9/L Normal 2.0-7.5 [facility] Comment on above: Performed By: #### 2 [id number] #### [facility] [address] [place] [address] Neutrophils/100 WBC (Bld) 76.5 % High 36.0-75.0 [facility] Comment on above: Performed By: #### 2 [id number] #### [facility] [address] [place] [address] Platelet mean volume (Bld) [Entitic vol] 7.7 fL Normal 6.4-10.8 [facility] Comment on above: Performed By: #### 2 229781 #### [facility] [address] [place] [address] Platelets (Bld) [#/Vol] 218.0 E9/L Normal 150. 0-500. 0 [facility] Comment on above: Performed By: #### 2 [id number] #### [facility] [address] [place] [address] RBC (Bld) [#/Vol] 4.8 E12/L Normal 4.3-5.9 [facility] Comment on above: Performed By: #### 2 [id number] #### [facility] [address] [place] [address] WBC corrected for nucl RBC Auto (Bld) [#/Vol] 9.4 E9/L Normal 4.0-11.0 [facility] Comment on above: Performed By: #### 2 [id number] #### [facility] [address] [place] [address] CHEMISTRYOrdered By: SYSTEM SYSTEM on 03-07-2024 Anion [...] 370 Contrast amount in ml's: 100 Normal [facility] CTA Neckon 03-07-2024 CTA Neck Exam Date/Time: [...] of the vertebrobasilar circulation with small caliber timber estimator, without distinct focal high-grade proximal stenosis of the timber estimator within limits of the small caliber. Dural venous sinuses: Visualized dural venous sinuses are patent. Ordering Provider: Abdulkadir Amaro FINAL REPORT Dictated: 03/07/2024 12:27 pm Marlon Flores MD Signed (Electronic Signature): 03/07/2024 12:27 pm Signed by: Marlon Flores MD Transcribed by: IGOR Technologist: DOMENICO Technical Comments GFR (mL/min/1/73m2) >60 Contrast: Isovue 370 Contrast amount in ml's: 100 Normal [facility] HEMATOLOGYOrdered By: SYSTEM SYSTEM on 03-07-2024 Basophils/100 [...] 03-07-2024 Inpatient Clinical Summary Inpatient Clinical Summary [place] [id number] Clinical Summary Person Information: Name: JANELLE BURT Age: 83 Years : 1940 Sex: Female PCP: ANTONINO GUSTAFSON MD Marital Status: Single Race: White Ethnicity: Non- or Language: Nepalese Visit Id: Visit Reason: Vision changes; SENT BY EYE DOCTOR - POSSIBLE STROKE Speciality: Acuity: Enc Type: Observation Med Service: Medical Arrival: 03/06/2024 14:47:18 Discharge: Dispo Type: Admitted as IP to this [facility] Address: [address] [place] [id number] Provider Notes: Diagnosis: 1:CVA (cerebrovascular accident); 2:HTN [...] Follow up: With: Address: When: [place] [address] Within 5 to 7 days Comments: Call for followup appointment to talk about switching from Eliquis to Coumadin once you are out of Eliquis With: Address: When: [place] [phone] Within 2 to 4 weeks Patient Education Information: Atrial Fibrillation, [id number]; Core Measures: Stroke (Cerebrovascular Accident) [facility], ([facility]) [facility] Inpatient Patient Summaryon 03-07-2024 Inpatient Patient [...] once you are out of Eliquis Where: [address] [place] [address]- Follow Up with Shawn MORA, YVES Galvin When: Within 2 to 4 weeks Where: [address] [address]- Medications What How Much When Instructions Next Dose New atorvastatin (atorvastatin 40 mg Tab) 1 Tablets By Mouth At bedtime Pickup at [facility]/pharmacy #[id number] 03/07 0900PM Changed apixaban (Eliquis 5 mg [...] as needed for chest pain Pharmacy Information [facility]/pharmacy #[id number]: [address], [place] [id number] [phone] Test Results CBC BMP WBC: 9.4 E9/L [...] ??? Y (more content not included)... Normal [facility] Interdisciplinary Note - Rikki e Manageron 03-07-2024 Interdisciplinary Note - Multicultural Manager Interdisciplinary Note - Multicultural Manager CRM to room 304 Patient is [...] it will work until that date comes [facility] for transport. Patient has family assistance as needed Transport flyers are in admission folder Patient does not need to meet for Advance Directives [facility] Comment on above: Result Comment: Elec tronically Signed By: Yaneli Day\.br\Date and Time Signed: 03/07/24 15:09 EST Interdisciplinary Note - Berkley n 03-07-2024 Interdisciplinary Note - OT Interdisciplinary Note - OT OT [facility] six clicks score 22/ = no further inpatient OT needs. However, discussed referral to outpatient OT for evaluation of visual field cuts and education on retraining, remediation and home program/home safety techniques to optimize improvement. Patient is agreeable but is unable to drive. Patient reports she would be interested in senior services transportation if available. DC inpatient OT needs. Normal [facility] Interdisciplinary Note - Spe ech Languageon 03-07-2024 Interdisciplinary Note - Speech Language Interdisciplinary Note - Speech Language ST 03/07/24: per nursing no issues noted. pt with regular breakfast tray present, reports no issues with talking or swallowing. will cancel order at this time. please reconsult as needed. nursing aware/in agreement. Normal [facility] Lab Miscellaneous-LCon 03-07 Test Code [id number] Invalid Interpretation Code [facility] Comment on above: Performed By: #### 1 [id number] #### [facility] [address] [place] [address] Test Name HbA1c Invalid Interpretation Code [facility] Comment on above: Performed By: #### 1 [id number] #### [facility] [address] [place] [address] Lipid Panelon 03-07-2024 Cholesterol [Mass/Vol] 160 mg/dL Normal 120-200 [facility] Comment on above: Performed By: #### 2 [id number] #### [facility] [address] [place] [address] Cholesterol in HDL [Mass/Vol] 49 mg/dL Invalid Interpretation Code [facility] Comment on above: Result Comment: '>= 60 LOW RISK' '<= 40 HIGH RISK' Performed By: #### 2 [id number] #### [facility] [address] [place] [address] Cholesterol in LDL [Mass/Vol] 100 mg/dL Normal <=129 [facility] Comment on above: Performed By: #### 2 [id number] #### [facility] [address] [place] [address] Cholesterol in VLDL [Mass/Vol] 21 mg/dL Normal 7-40 [facility] Comment on above: Performed By: #### 2 [id number] #### [facility] [address] [place] [address] Triglyceride [Mass/Vol] 107 mg/dL Normal <=149 [facility] Comment on above: Performed By: #### 2 [id number] #### [facility] [address] [place] [address] MRI Brain w/o Contraston MRI Brain w/o [...] IGOR Technologist: KIMBERLY Technical Comments None Normal [facility] Reference Laboratory Testing Ordered By: Yolanda Raphael on 03-07-2024 Test Code 948732 1 Invalid Interpretation Code [facility] Test Name HbA1c Invalid Interpretation Code [facility] eGFRon 03-07-2024 eGFR 63 mL/min/1.73 m2 Normal >=59 [facility] Comment on above: Performed By: #### 1 [id number] #### [facility] [address] [place] [address] BB Draw & Holdon 03-06-2024 BB D&H Sample drawn for Blood Ba Normal [facility] Comment on above: Performed By: #### 1 [id number] #### [facility] [address] [place] [address] CBC w/ Auto Diffon 4 Basophils/100 WBC (Bld) 0.8 % Normal 0.0-2.0 [facility] Comment on above: Performed By: #### 2 [id number] #### [facility] [address] [place] [address] Basophils/Leukocytes Auto (Bld) [Pure # fraction] 0.1 E9/L Normal 0.0-0.2 [facility] Comment on above: Performed By: #### 2 [id number] #### [facility] [address] [place] [address] Eosinophils (Bld) [#/Vol] 0.1 E9/L Normal 0.0-0.5 [facility] Comment on above: Performed By: #### 2 [id number] #### [facility] [address] [place] [address] Eosinophils/100 WBC (Bld) 1.0 % Normal 0.0-8.0 [facility] Comment on above: Performed By: #### 2 [id number] #### [facility] [address] [place] [address] Erythrocyte distribution width (RBC) [Ratio] 13.5 % Normal 10.9-14.2 [facility] Comment on above: Performed By: #### 2 [id number] #### [facility] [address] [place] [address] Hematocrit (Bld) [Volume fraction] 40.7 % Normal 34.0-46.0 [facility] Comment on above: Performed By: #### 2 [id number] #### [facility] [address] [place] [address] Hemoglobin (Bld) [Mass/Vol] 14.5 g/dL Normal 12.0-16.0 [facility] Comment on above: Performed By: #### 2 [id number] #### [facility] [address] [place] [address] Lymphocytes (Bld) [#/Vol] 2.2 E9/L Normal 1.0-4.0 [facility] Comment on above: Performed By: #### 2 [id number] #### [facility] [address] [place] [address] Lymphocytes/100 WBC (Bld) 25.0 % Normal 14.0-50.0 [facility] Comment on above: Performed By: #### 2 [id number] #### [facility] [address] [place] [address] MCH (RBC) [Entitic mass] 31.4 pg Normal 27.0-34.0 [facility] Comment on above: Performed By: #### 2 [id number] #### [facility] [address] [place] [address] MCHC (RBC) [Mass/Vol] 35.6 g/dL Normal 31.4-36.0 [facility] Comment on above: Performed By: #### 2 [id number] #### [facility] [address] [place] [address] MCV (RBC) [Entitic vol] 88.3 fL Normal 80.0-100.0 [facility] Comment on above: Performed By: #### 2 [id number] #### [facility] [address] [place] [address] Monocytes (Bld) [#/Vol] 0.9 E9/L Normal 0.2-1.0 [facility] Comment on above: Performed By: #### 2 [id number] #### [facility] [address] [place] [address] Neutrophils (Bld) [#/Vol] 5.4 E9/L Normal 2.0-7.5 [facility] Comment on above: Performed By: #### 2 073210 #### [facility] [address] [place] [address] Neutrophils/100 WBC (Bld) 63.0 % Normal 36.0-75.0 [facility] Comment on above: Performed By: #### 2 052651 #### [facility] [address] [place] [address] Platelet mean volume (Bld) [Entitic vol] 7.6 fL Normal 6.4-10.8 [facility] Comment on above: Performed By: #### 2 614404 #### [facility] [address] [place] [address] Platelets (Bld) [#/Vol] 205.0 E9/L Normal 150. 0-500. 0 [facility] Comment on above: Performed By: #### 2 [id number] #### [facility] [address] [place] [address] RBC (Bld) [#/Vol] 4.6 E12/L Normal 4.3-5.9 [facility] Comment on above: Performed By: #### 2 [id number] #### [facility] [address] [place] [address] WBC corrected for nucl RBC Auto (Bld) [#/Vol] 8.6 E9/L Normal 4.0-11.0 [facility] Comment on above: Performed By: #### 2 [id number] #### [facility] [address] [place] [address] CHEMISTRYOrdered By: SYSTEM SYSTEM on 03-06-2024 Albumin [...] 89 mg/dL Normal 55 - 99 mg/dL [facility] POC Subsection Comment on above: Result Comment: Johnathon spears RN/ POC Device SN [id number] 1 Invalid Interpretation Code [facility] POC Subsection POC User ID [id number] 1 Invalid Interpretation Code [facility] POC Subsection POC Username ESTELLE FOX Invalid Interpretation Code [facility] POC Subsection CMPon 03-06-2024 Albumin [Mass/Vol] 3.9 g/dL Normal 3.3-5.0 [facility] Comment on above: Performed By: #### 2 [id number] #### [facility] [address] [place] [address] Albumin/Globulin (S) [Mass conc ratio] 1.2 Normal 1.1-2.2 [facility] Comment on above: Performed By: #### 2 [id number] #### [facility] [address] [place] [address] ALP [Catalytic activity/Vol] 51 Int._Unit/L Normal 21-98 [facility] Comment on above: Performed By: #### 2 [id number] #### [facility] [address] [place] [address] ALT No additional P-5'-P [Catalytic activity/Vol] 10 Int._Unit/L Normal 6-46 [facility] Comment on above: Performed By: #### 2 [id number] #### [facility] [address] [place] [address] Anion gap [Moles/Vol] 9 mmol/L Normal 6-16 [facility] Comment on above: Performed By: #### 2 287227 #### [facility] [address] [place] [address] AST [Catalytic activity/Vol] 16 Int._Unit/L Normal 5-43 [facility] Comment on above: Performed By: #### 2 [id number] #### [facility] [address] [place] [address] Bilirubin [Mass/Vol] 0.9 mg/dL Normal 0.0-1.1 [facility] Comment on above: Performed By: #### 2 [id number] #### [facility] [address] [place] [address] Calcium [Mass/Vol] 9.4 mg/dL Normal 8.9-11.1 [facility] Comment on above: Performed By: #### 2 264255 #### [facility] [address] [place] [address] Chloride [Moles/Vol] 95 mmol/L Low 101-111 [facility] Comment on above: Performed By: #### 2 [id number] #### [facility] [address] [place] [address] CO2 [Moles/Vol] 29 mmol/L Normal 21-31 [facility] Comment on above: Performed By: #### 2 [id number] #### [facility] [address] [place] [address] Creatinine [Mass/Vol] 1.1 mg/dL Normal 0.5-1.3 [facility] Comment on above: Performed By: #### 2 [id number] #### [facility] [address] [place] [address] Globulin (S) [Mass/Vol] 3.2 g/dL Normal 1.4-4.0 [facility] Comment on above: Performed By: #### 2 987212 #### [facility] [address] [place] [address] Glucose [Mass/Vol] 97 mg/dL Normal 55-199 [facility] Comment on above: Performed By: #### 2 [id number] #### [facility] [address] [place] [address] Potassium [Moles/Vol] 4.1 mmol/L Normal 3.5-5.3 [facility] Comment on above: Performed By: #### 2 [id number] #### [facility] [address] [place] [address] Protein [Mass/Vol] 7.1 g/dL Normal 6.0-7.8 [facility] Comment on above: Performed By: #### 2 [id number] #### [facility] [address] [place] [address] Sodium [Moles/Vol] 129 mmol/L Low 135-145 [facility] Comment on above: Performed By: #### 2 [id number] #### [facility] [address] [place] [address] Urea nitrogen [Mass/Vol] 21 mg/dL Normal 5-21 [facility] Comment on above: Performed By: #### 2 [id number] #### [facility] [address] [place] [address] Urea nitrogen/Creatinine [Mass ratio] 19 No Units Normal 10-20 [facility] Comment on above: Performed By: #### 2 [id number] #### [facility] [address] [place] [address] COAGULATIONOrdered By: Arvin Quevedo on 03-06-2024 aPTT Coag (PPP) [Time] 29.4 s Normal 25.1 - 36.5 second(s) [facility] Comment on above: Interpretive Data: [...] the same coagulation reagent and instrumentation as [facility]. Currently there are no coagulation studies available worldwide for children to 14 days, and no normal ranges. Heparin therapeutic range (represented by Anti-Factor Xa activity of 0.2 - 0.4 U/mL) corresponds to PTT of 56.6 - 109.0 sec. INR Coag (PPP) [Relative time] 1.05 {INR} Invalid Interpretation Code [facility] Comment on above: Interpretive Data: I NR results are specifically intended to assess patients stabilized on long-term Anticoagulation therapy suggested INR s Less Intensive Anticoagulation 2.0 3.0 Conventional Range 3.0 4.5 PT Coag (PPP) [Time] 11.8 s Normal 9.4 - 1 2.5 second(s) [facility] Comment on above: Interpretive Data: [...] the same coagulation reagent and instrumentation as [facility]. Currently there are no coagulation studies available [...] MD Transcribed by: IGOR Technologist: EDUAR Normal [facility] Capillary Glucose POCon Glucose [Mass/Vol] 89 mg/dL Normal 55-99 [facility] Comment on above: Result Comment: Johnathon spears RN/ Performed By: #### 2 [id number] #### [facility] [address] [place] [address] ED Clinical Summaryon 2023 ED Clinical Summary ED Clinical Summary [address] [address] ED Clinical Summary Person Information Name: JANELLE BURT/[facility] Age: 83 Years : 1940 Sex: Female Language: Nepalese PCP: ANTONINO GUSTAFSON MD Marital Status: Single Visit Id: Visit Reason: Vision changes; SENT BY EYE DOCTOR - POSSIBLE STROKE Speciality: Acuity: 2 Enc Type: Observation Med Service: Medical Arrival: 03/06/2024 14:47:18 Discharge: LOS: 000 05:16 Checkin: 03/06/2024 14:47:18 Checkout: 03/06/2024 20:03:26 Dispo Type: Admitted as IP to this [facility] EVENTS: Event Name Event Status Request [...] 03/06/2024 20:03:26 03/06/2024 20:03:26 03/06/2024 20:03:26 ADDRESS: [address] [place] [id number] PHYS DOC NOTES: MEDICAL INFORMATION: Prescriptions Given: PATIENT EDUCATION INFORMATION: Instructions: Follow up: DIAGNOSIS: 1:CVA (cerebrovascular accident); 2:HTN (hypertension); 3:Hypothyroidism; 4:A-fib; 5:Hyperlipidemia Normal [facility] ED Note-Nursingon 03-06-2024 ED Note-Nursing ED Note-Nursing Pt returns from MRI. Normal [facility] ED Note-Nursing ED Note-Nursing Finger stick at 1502 is 89 Normal [facility] ED Patient Education Noteon 03-06-2024 ED Patient Education Note ED Patient Education Note Normal [facility] ED Patient Summaryon ED Patient Summary ED Patient Summary [place] [id number] Patient Discharge Instructions Person Information Name: JANELLE BURT Age: 83 Years Arrival Date: 03/06/2024 14:47:18 Discharge Diagnosis: 1:CVA (cerebrovascular accident); 2:HTN (hypertension); 3:Hypothyroidism; 4:A-fib; 5:Hyperlipidemia Primary Care Physician: ANTONINO GUSTAFSON MD Provider Information Primary Provider: Rolando Zarco DO [employer] Setter:Julio Escalante PA-C The exam and treatment you received in the Emergency Department were for an urgent problem and are not intended as complete care. It is important that you follow up with a doctor, nurse practitioner, or physician???s animal care assistant for ongoing care. If your symptoms become worse or you do not improve as expected and you are unable to reach your usual health care provider, you should return to the Emergency Department. We are available 24 hours a day. JANELLE BRUT has been given the following list of [...] opioids can be used to help relieve ofyjqkwn-xr-pyoght pain and are often prescribed following a [...] be struggling with addiction, tell your health career placement services counselor and ask for guidance or call [facility]???S National Helpline at 5-380-511-YVUT. (more content not included)... Normal [facility] HEMATOLOGYOrdered By: SYSTEM SYSTEM on 03-06-2024 Basophils/100 [...] Nom (U) 1,000 cfu/ml Mixed skin contaminants [facility] PT & PTTon 03-06-2024 aPTT Coag (PPP) [Time] 29.4 second(s) Normal 25.1-36.5 [facility] Comment on above: Result Comment: Para meter [...] the same coagulation reagent and instrumentation as [facility]. Currently there are no coagulation studies available worldwide for children to 14 days, and no normal ranges. Heparin therapeutic range (represented by Anti-Factor Xa activity of 0.2 - 0.4 U/mL) corresponds to PTT of 56.6 - 109.0 sec. Performed By: #### 1 [id number] #### [facility] [address] [place] [address] INR Coag (PPP) [Relative time] 1.05 {INR} Invalid Interpretation Code [facility] Comment on above: Result Comment: INR results are specifically intended to assess patients stabilized on long-term Anticoagulation therapy suggested INR???s ???Less Intensive Anticoagulation??? 2.0 ??? 3.0 Conventional Range 3.0 ??? 4.5 Performed By: #### 1 [id number] #### [facility] [address] [place] [address] PT Coag (PPP) [Time] 11.8 second(s) Normal 9.4-12.5 [facility] Comment on above: Result Comment: 15 d [...] the same coagulation reagent and instrumentation as [facility]. Currently there are no coagulation studies available worldwide for children to 14 days, and no normal ranges. Performed By: #### 1 [id number] #### [facility] [address] [place] [address] Perimetry studyon 03-06-2024 Right Eye Reliability was poor. Left Eye Reliability was poor. Notes Lt homonymous deni [facility] Radiology Study observation (narrative) [facility] Troponin 0 Hr.on 03-06-2024 Troponin HS 5.30 pg/mL Low 10.10-27.1 0 [facility] Comment on above: Result Comment: The 95% CI (Confidence Interval) PPV (Positive Predictive Value) for myocardial infarction in females is 38 pg/mL, in males 51 pg/mL. The results should be used in conjunction with clinical conditions of myocardial infarction. (Access High Sensitivity Troponin I Instructions For Use, Carla [employer], October 2017) Performed By: #### 1 [id number] #### [facility] [address] [place] [address] UA with Cult Rflxon 03-06-20 24 Bilirubin Ql (U) Negative Normal Negative [facility] Comment on above: Performed By: #### 4 [id number] #### [facility] [address] [place] [address] Clarity (U) Clear Normal Clear [facility] Comment on above: Performed By: #### 4 [id number] #### [facility] [address] [place] [address] Color (U) Yellow Normal Yellow [facility] Comment on above: Result Comment: Micr oscopic readings are only performed on those samples that meet specific criteria set forth by [facility]. Performed By: #### 4 [id number] #### [facility] [address] [place] [address] Epithelial cells.squamous Auto (Urine sed) [#/Area] 3-4 Invalid Interpretation Code [facility] Comment on above: Performed By: #### 4 [id number] #### [facility] [address] [place] [address] Glucose Ql (U) Negative Normal Negative [facility] Comment on above: Performed By: #### 4 [id number] #### [facility] [address] [place] [address] Hemoglobin Auto test strip (U) [Mass/Vol] Negative Normal Negative [facility] Comment on above: Performed By: #### 4 [id number] #### [facility] [address] [place] [address] Ketones Auto test strip Ql (U) Negative Normal Negative [facility] Comment on above: Performed By: #### 4 [id number] #### [facility] [address] [place] [address] Leukocyte esterase Auto test strip Ql (U) 250 Mohit/uL Abnormal Negative [facility] Comment on above: Performed By: #### 4 [id number] #### [facility] [address] [place] [address] Mucus Auto Ql (U) Trace Normal Negative [facility] Comment on above: Performed By: #### 4 [id number] #### [facility] [address] [place] [address] Nitrite Auto test strip Ql (U) Negative Normal Negative [facility] Comment on above: Performed By: #### 4 [id number] #### [facility] [address] [place] [address] pH (U) 5.5 [pH] Invalid Interpretation Code 5.0-9.0 [facility] Comment on above: Performed By: #### 4 [id number] #### [facility] [address] [place] [address] Protein Ql (U) Negative Normal Negative [facility] Comment on above: Performed By: #### 4 [id number] #### [facility] [address] [place] [address] RBC Ql (U) 0-3 Normal 0-3 [facility] Comment on above: Performed By: #### 4 [id number] #### [facility] [address] [place] [address] Specific gravity (U) [Rel density] 1.019 Invalid Interpretation Code 1.005-1.03 0 [facility] Comment on above: Performed By: #### 4 [id number] #### [facility] [address] [place] [address] Urobilinogen (U) [Mass/Vol] Negative Normal Negative [facility] Comment on above: Performed By: #### 4 [id number] #### [facility] [address] [place] [address] WBC Auto (Urine sed) [#/Area] 6-15 Abnormal 0-5 [facility] Comment on above: Performed By: #### 4 [id number] #### [facility] [address] [place] [address] Type of Urine collection method Clean Catch Normal [facility] Comment on above: Performed By: #### 4 [id number] #### [facility] [address] [place] [address] URINALYSISOrdered By: SYSTEM SYSTEM on 03-06-2024 Bilirubin Ql (U) Negative Normal Negativemg /dL [facility] UA Auto SS Clarity (U) Clear (03/06/24 7:55 PM) Normal Clear [facility] UA Auto SS Color (U) Yellow 1 (03/06/24 7:55 PM) Normal Yellow [facility] UA Auto SS Comment on above: Interpretive Data: M icroscopic readings are only performed on those samples that meet specific criteria set forth by [facility]. Epithelial cells.squamous Auto (Urine sed) [#/Area] [...] PM) Invalid Interpretation Code 1.005 - 1.030 [facility] UA Auto SS Urobilinogen (U) [Mass/Vol] Negative Normal Negativemg /dL [facility] UA Auto SS WBC Auto (Urine sed) [#/Area] 6-15 graded/HPF Invalid Interpretation Code 0-5graded/ HPF [facility] UA Auto SS URINALYSISOrdered By: Julio Escalante on 03-06-2024 UA Spec Desc Clean Catch (03/06/24 7:55 PM) Normal [facility] UA Auto SS Work Phone: XR Chest [...] mGy = na DAP = na Normal [facility] eGFRon 03-06-2024 eGFR 49 mL/min/1.73 m2 Low >=59 [facility] Comment on above: Performed By: #### 1 [id number] #### [facility] [address] [place] [address] Urine Cultureon 02-17-2024 Bacteria identified Cx Nom (U) ORGANISM: Pseudomonas aeruginosa (O:PSEAER) [place] Count <10,000 Aerobic TONY Charge (NMIC56) SUSCEPTIBILITY [...] RESISTANT TO ALL B-LACTAM DRUGS. PERFORMED BY: [facility] [address] [place] [address] PATHOLOGIST APPRAISAL COORDINATOR KARAN TINSLEY M.D. Normal [facility] Comment on above: Performed By: #### C UU #### [facility] [address] [place] [address] [place] Basophils Auto (Bld) [#/Vol] on 02-05-2024 Basophils (Bld) [#/Vol] Automated basophil count 0.0-0.1 [facility] Basophils/100 WBC Auto (Bld) on 02-05-2024 Basophils/100 WBC (Bld) Automated basophil % 0. 2-2.0 [facility] Eosinophils/100 WBC Auto (Bl d)on 02-05-2024 Eosinophils/100 WBC (Bld) Automated eosinophil % 0.9-7.0 [facility] Erythrocyte distribution wid th Auto (RBC) [Ratio]on 02-05-2024 Erythrocyte distribution width (RBC) [Ratio] Erythrocyte distribution width [Ratio] by Automated count 11.0-15.0 [facility] Estimated glomerular filtrat ion rate (GFR) non- Americanon 02-05-2024 GFR/1.73 sq M.predicted among non-blacks MDRD (S/P/Bld) [Vol rate/Area] Estimated glomerular filtration rate (GFR) non- Low >=60 mL/min/1.7 3m 2 [facility] Hematocrit Auto (Bld) [Volum e fraction]on 02-05-2024 Hematocrit (Bld) [Volume fraction] Hematocrit [Volume Fraction] of Blood by Automated count 36.0-48.0 [facility] Hemoglobin [Mass/volume] in Bloodon 02-05-2024 Hemoglobin (Bld) [Mass/Vol] Hemoglobin [Mass/volume] in Blood 12.0-16.0 [facility] - Chemistry and C hemistry - challengeon 02-05-2024 Calcium [Mass/Vol] 9.5 mg/dL 8.5-10.1 [facility] Chloride [Moles/Vol] 95 mmol/L Low 98-107 [facility] CO2 [Moles/Vol] 26.7 mmol/L 21.0-32.0 [facility] Creatinine [Mass/Vol] 1.30 mg/dL High 0.55-1.02 [facility] GFR/1.73 sq M.predicted MDRD (S/P/Bld) [Vol rate/Area] 47 mL/min/{1.73_m2} Low >=60 mL/min/1.7 3m 2 [facility] Glucose [Mass/Vol] 115 mg/dL High 74-106 [facility] Potassium [Moles/Vol] 4.1 mmol/L 3.5-5.1 [facility] Sodium [Moles/Vol] 132 mmol/L Low 136-145 [facility] Urea nitrogen [Mass/Vol] 14.0 mg/dL 7.0-18.0 [facility] Urea nitrogen/Creatinine [Mass ratio] 10.8 mg/mg [facility] - Hematology and Cell countson 02-05-2024 Immature granulocytes/100 WBC (Bld) 0.1 % 0.0-0.5 [facility] Leukocytes [#/volume] correc chacho for nucleated erythrocytes in Blood by Automated counon 02-05-2024 WBC corrected for nucl RBC Auto (Bld) [#/Vol] Leukocytes [#/volume] corrected for nucleated erythrocytes in Blood by Automated coun 4.0-11.0 [facility] Lymphocytes Auto (Bld) [#/Vo l]on 02-05-2024 Lymphocytes (Bld) [#/Vol] Lymphocytes [#/volume] in Blood by Automated count 1.2-3.8 [facility] Lymphocytes/100 WBC Auto (Bl d)on 02-05-2024 Lymphocytes/100 WBC (Bld) Lymphocytes/100 leukocytes in Blood by Automated count 20.5-60.0 [facility] MCH Auto (RBC) [Entitic mass ]on 02-05-2024 MCH (RBC) [Entitic mass] MCH [Entitic mass] by Automated count 26.7-34.0 [facility] MCHC Auto (RBC) [Mass/Vol]on 02-05-2024 MCHC (RBC) [Mass/Vol] MCHC [Mass/volume] by Automated count 29.9-35.2 [facility] MCV Auto (RBC) [Entitic vol] on 02-05-2024 MCV (RBC) [Entitic vol] MCV [Entitic vol ume] by Automated count 81.0-99.0 [facility] Monocytes Auto (Bld) [#/Vol] on 02-05-2024 Monocytes (Bld) [#/Vol] Automated blood monocyte count 0.3-0.8 [facility] Monocytes/100 WBC Auto (Bld) on 02-05-2024 Monocytes/100 WBC (Bld) Automated monocyte % 1. 7-12.0 [facility] Neutrophils Auto (Bld) [#/Vo l]on 02-05-2024 Neutrophils (Bld) [#/Vol] Neutrophils [#/volume] in Blood by Automated count 1.4-6.5 [facility] Neutrophils/100 WBC Auto (Bl d)on 02-05-2024 Neutrophils/100 WBC (Bld) Automated neutrophil % 43.0-75.0 [facility] No Panel Informationon 02-04 Eosinophils # (Auto) 0.1 10 3/uL 0.0-0.7 [facility] Immature Granulocyte # (Auto) 0.01 10 3/uL 0.00-0.03 [facility] Platelet mean volume Auto (B ld) [Entitic vol]on 02-05-2024 Platelet mean volume (Bld) [Entitic vol] Platelet mean volume [Entitic volume] in Blood by Automated count Low 9.5-13.5 [facility] Platelets Auto (Bld) [#/Vol] on 02-05-2024 Platelets (Bld) [#/Vol] Platelets [#/vol ume] in Blood by Automated count 150-450 [facility] RBC Auto (Bld) [#/Vol]on RBC (Bld) [#/Vol] Erythrocytes [#/volu me] in Blood by Automated count 4.20-5.40 [facility] Serum or plasma anion gap de terminationon 02-05-2024 Anion gap [Moles/Vol] Serum or plasma an ion gap determination [facility] Automated epithelial cells c ount in urine sediment (number/area)on 07-27-2023 Epithelial cells Auto (Urine sed) [#/Area] RARE #/LPF NONE/RARE [facility] Automated leukocytes count i n urine sediment (number/area)on 07-27-2023 WBC Auto (Urine sed) [#/Area] NONE SEEN #/HPF 0-2 [facility] Automated urine specific gra vity by refractometryon 07-27-2023 Specific gravity Refractometry automated (U) [Rel density] 1.015 1.005-1.02 5 [facility] Bilirubin Auto test strip (U ) [Mass/Vol]on 07-27-2023 Bilirubin (U) [Mass/Vol] Negative NEGATIVE [facility] Casts typing in urine sedime nt by light microscopyon 07-27-2023 Casts LM Nom (Urine sed) NONE SEEN #/LPF NONE SEEN [facility] Color Auto (U)on 07-27-2023 Color (U) LT. YELLOW YELLOW [facility] Erythrocyte distribution wid th Auto (RBC) [Ratio]on 07-27-2023 Erythrocyte distribution width (RBC) [Ratio] 12.6 % 11.0-15.0 [facility] Estimated glomerular filtrat ion rate (GFR) non- Americanon 07-27-2023 GFR/1.73 sq M.predicted among non-blacks MDRD (S/P/Bld) [Vol rate/Area] 46 mL/min/{1.73_m2} >=60 [facility] Hematocrit Auto (Bld) [Volum e fraction]on 07-27-2023 Hematocrit (Bld) [Volume fraction] 39.4 % 36.0-48.0 [facility] Hemoglobin [Mass/volume] in Bloodon 07-27-2023 Hemoglobin (Bld) [Mass/Vol] 13.5 g/dL 12.0-16.0 [facility] Ketones Auto test strip (U) [Mass/Vol]on 07-27-2023 Ketones (U) [Mass/Vol] Negative NEGATIVE [facility] - Chemistry and C hemistry - challengeon 07-27-2023 Albumin [Mass/Vol] 3.5 g/dL 3.4-5.0 [facility] Calcium [Mass/Vol] 9.3 mg/dL 8.5-10.1 [facility] Chloride [Moles/Vol] 96 mmol/L 98-107 [facility] CO2 [Moles/Vol] 28.4 mmol/L 21.0-32.0 [facility] Creatinine [Mass/Vol] 1.12 mg/dL 0.55-1.02 [facility] GFR/1.73 sq M.predicted MDRD (S/P/Bld) [Vol rate/Area] 56 mL/min/{1.73_m2} >=60 [facility] Glucose [Mass/Vol] 95 mg/dL 74-106 [facility] Magnesium [Mass/Vol] 2.0 mg/dL 1.8-2.4 [facility] Potassium [Moles/Vol] 4.1 mmol/L 3.5-5.1 [facility] Sodium [Moles/Vol] 131 mmol/L 136-145 [facility] Urate [Mass/Vol] 3.4 mg/dL 2.6-6.0 [facility] Urea nitrogen [Mass/Vol] 19.0 mg/dL 7.0-18.0 [facility] Urea nitrogen/Creatinine [Mass ratio] 17.0 mg/mg [facility] - Urinalysison Protein (U) [Mass/Vol] 9.6 mg/dL <=11.9 [facility] Leukocytes [#/volume] correc chacho for nucleated erythrocytes in Blood by Automated counon 07-27-2023 WBC corrected for nucl RBC Auto (Bld) [#/Vol] 5.8 10 3/uL 4.0-11.0 [facility] MCH Auto (RBC) [Entitic mass ]on 07-27-2023 MCH (RBC) [Entitic mass] 29.9 pg 26.7-34.0 [facility] MCHC Auto (RBC) [Mass/Vol]on 07-27-2023 MCHC (RBC) [Mass/Vol] 34.3 g/dL 29.9-35.2 [facility] MCV Auto (RBC) [Entitic vol] on 07-27-2023 MCV (RBC) [Entitic vol] 87.2 fL 81.0-99.0 [facility] Mucus LM Ql (Urine sed)on Mucus Ql (Urine sed) NONE SEEN NONE SEEN [facility] No Panel Informationon 07-26 Urine Random Creatinine 100.05 mg/dL 20.0 0-300. 00 [facility] 25-Hydroxy Vitamin D Total 61.8 ng/mL [facility] Comment on above: <20 ng/mL Vit D defi cient20-<30 ng/mL Vit D avkyeyeevigo04-358 ng/mL Vit D sufficient>100 ng/mL Potential Toxicity Parathyroid Hormone (Intact) 16 pg/mL 15-65 [facility] Comment on above: Performed at: [address] [id number] Director: Lux Adorno PhD, Phone: [phone] Phosphorus Level 3.5 mg/dL 2.6-4.7 [facility] Platelet mean volume Auto (B ld) [Entitic vol]on 07-27-2023 Platelet mean volume (Bld) [Entitic vol] 9.1 fL 9.5-13.5 [facility] Platelets Auto (Bld) [#/Vol] on 07-27-2023 Platelets (Bld) [#/Vol] 209 10 3/uL 150-450 [facility] Protein Auto test strip (U) [Mass/Vol]on 07-27-2023 Protein (U) [Mass/Vol] Negative NEG/TRACE [facility] RBC Auto (Bld) [#/Vol]on RBC (Bld) [#/Vol] 4.52 10 6/uL 4.20-5.40 [facility] Serum or plasma anion gap de terminationon 07-27-2023 Anion gap [Moles/Vol] 10.7 mmol/L [facility] Specific gravity Auto test s trip (U) [Rel density]on 07-27-2023 Specific gravity (U) [Rel density] CLEAR CLEAR [facility] Urine bacteria detection by automated methodon 07-27-2023 Bacteria Auto Ql (U) NONE SEEN #/HPF NONE SEEN [facility] Urine glucose measurement by test strip (mass/volume)on 07-27-2023 Glucose Test strip (U) [Mass/Vol] Negative NEGATIVE [facility] Urine hemoglobin detection b y automated test stripon 07-27-2023 Hemoglobin Auto test strip Ql (U) Negative NEGATIVE [facility] Urine nitrite detection by a utomated test stripon 07-27-2023 Nitrite Auto test strip Ql (U) SMALL NEGATIVE [facility] Nitrite Auto test strip Ql (U) Negative NEGATIVE [facility] Urine protein/creatinine rat ioon 07-27-2023 Protein/Creatinine (U) [Ratio] 0.10 [facility] Urine sediment crystal ident ification by light microscopyon 07-27-2023 Crystals LM Nom (Urine sed) None Seen #/HPF None Seen [facility] Urine sediment leukocyte cou nt by microscopy (number/high power field)on 07-27-2023 WBC LM.HPF (Urine sed) [#/Area] 2-5 #/HPF NONE SEEN [facility] Urobilinogen Auto test strip (U) [Mass/Vol]on 07-27-2023 Urobilinogen Qn (U) 1.0 {Carlos'U}/dL 0.2-1.0 [facility] pH Auto test strip (U)on pH (U) 7.0 [pH] 5.0-9.0 [facility] Calcium [Mass/volume] in Ser um or PlasmaOrdered By: Elsa Amin on 01-29-2023 Calcium [Mass/Vol] 9.5 mg/dL 8.6-10.3 [facility] Carbon dioxide, total [Moles /volume] in Serum or PlasmaOrdered By: Elsa Amin on 01-29-2023 CO2 [Moles/Vol] 25.5 mmol/L 21.0-31.0 [facility] Chloride [Moles/volume] in S lorraine or PlasmaOrdered By: Elsa Amin on 01-29-2023 Chloride [Moles/Vol] 96 mmol/L 98-107 [facility] Creatinine [Mass/volume] in Serum or PlasmaOrdered By: Elsa Amin on 01-29-2023 Creatinine [Mass/Vol] 1.18 mg/dL 0.60-1.20 [facility] Glucose [Mass/volume] in Ser um or PlasmaOrdered By: Elsa Amin on 01-29-2023 Glucose [Mass/Vol] 82 mg/dL 70-100 [facility] Comment on above: ADA recommended refe rence rangeRandom Glucose Reference Range is dependent on time and content of last meal. Glucose of more than 200 mg/dL in a nonstressed, ambulatory subject supports the diagnosis of Diabetes Mellitus. No Panel InformationOrdered By: Elsa Amin on 01-29-2023 Estimated GFR (CKD-EPI) 45.829 mL/Min [facility] Creatinine Clearance (Chem 31.19 [facility] Potassium [Moles/volume] in Serum or PlasmaOrdered By: Elsa Amin on 01-29-2023 Potassium [Moles/Vol] 4.0 mmol/L 3.5-5.1 [facility] Serum or plasma anion gap de terminationOrdered By: Elsa Amin on 01-29-2023 Anion gap [Moles/Vol] 12.5 mmol/L 6.0-15.0 [facility] Sodium [Moles/volume] in Ser um or PlasmaOrdered By: Elsa Amin on 01-29-2023 Sodium [Moles/Vol] 130 mmol/L 136-145 [facility] Urea nitrogen [Mass/volume] in Serum or PlasmaOrdered By: Elsa Amin on 01-29-2023 Urea nitrogen [Mass/Vol] 24 mg/dL 10-20 [facility] Activated partial thrombopla stin time (aPTT) in platelet poor plasma by coagulation aOrdered By: Willie Lyon on 01-27-2023 aPTT Coag (PPP) [Time] 31.7 s 25.1-36.5 [facility] Comment on above: A hematocrit value g reater than 55% may lead to inaccurate results in coagulation testing. Patients having hematocrit values >55% require a special collection tube for coagulation studies. Please contact the laboratory at [phone] for redraw instructions. Alanine aminotransferase [En zymatic activity/volume] in Serum or PlasmaOrdered By: Willie Lyon on 01-27-2023 ALT [Catalytic activity/Vol] 9 U/L 7-52 [facility] Albumin [Mass/volume] in Ser um or Plasma by Bromocresol green (BCG) dye binding methoOrdered By: Willie Lyon on 01-27-2023 Albumin BCG dye [Mass/Vol] 4.0 g/dL 3.5-5.7 [facility] Alkaline phosphatase [Enzyma tic activity/volume] in Serum or PlasmaOrdered By: Willie Lyon on 01-27-2023 ALP [Catalytic activity/Vol] 46 U/L 34-104 [facility] Aspartate aminotransferase [ Enzymatic activity/volume] in Serum or PlasmaOrdered By: Willie Lyon on 01-27-2023 AST [Catalytic activity/Vol] 19 U/L 13-39 [facility] Basophils Auto (Bld) [#/Vol] Ordered By: Willie Lyon on 01-27-2023 Basophils (Bld) [#/Vol] 0.1 10*3/uL 0.0-0.2 [facility] Basophils/100 WBC Auto (Bld) Ordered By: Willie Lyon on 01-27-2023 Basophils/100 WBC (Bld) 1.0 % . [facility] Bilirubin.total [Mass/volume ] in Serum or PlasmaOrdered By: Willie Lyon on 01-27-2023 Bilirubin [Mass/Vol] 0.7 mg/dL 0.3-1.0 [facility] Calcium [Mass/volume] in Ser um or PlasmaOrdered By: Willie Lyon on 01-27-2023 Calcium [Mass/Vol] 9.8 mg/dL 8.6-10.3 [facility] Carbon dioxide, total [Moles /volume] in Serum or PlasmaOrdered By: Willie Lyon on 01-27-2023 CO2 [Moles/Vol] 27.4 mmol/L 21.0-31.0 [facility] Chloride [Moles/volume] in S lorraine or PlasmaOrdered By: Willie Lyon on 01-27-2023 Chloride [Moles/Vol] 98 mmol/L 98-107 [facility] Creatine kinase [Enzymatic a ctivity/volume] in Serum or PlasmaOrdered By: Willie Lyon on 01-27-2023 CK [Catalytic activity/Vol] 52 U/L 30-223 [facility] Creatinine [Mass/volume] in Serum or PlasmaOrdered By: Willie Lyon on 01-27-2023 Creatinine [Mass/Vol] 1.45 mg/dL 0.60-1.20 [facility] Eosinophils Auto (Bld) [#/Vo l]Ordered By: Willie Lyon on 01-27-2023 Eosinophils (Bld) [#/Vol] 0.1 10*3/uL 0.0-0.45 [facility] Eosinophils/100 WBC Auto (Bl d)Ordered By: Willie Lyon on 01-27-2023 Eosinophils/100 WBC (Bld) 1.7 % . [facility] Erythrocyte distribution wid th Auto (RBC) [Ratio]Ordered By: Willie Lyon on 01-27-2023 Erythrocyte distribution width (RBC) [Ratio] 13.7 % 11.9-15.3 [facility] Globulin Calc (S) [Mass/Vol] Ordered By: Willie Lyon on 01-27-2023 Globulin (S) [Mass/Vol] 2.9 g/dL [facility] Glucose [Mass/volume] in Ser um or PlasmaOrdered By: Willie Lyon on 01-27-2023 Glucose [Mass/Vol] 105 mg/dL 70-100 [facility] Comment on above: ADA recommended refe rence rangeRandom Glucose Reference Range is dependent on time and content of last meal. Glucose of more than 200 mg/dL in a nonstressed, ambulatory subject supports the diagnosis of Diabetes Mellitus. Hematocrit Auto (Bld) [Volum e fraction]Ordered By: Willie Lyon on 01-27-2023 Hematocrit (Bld) [Volume fraction] 41.4 % 34.0-46.4 [facility] Hemoglobin [Mass/volume] in BloodOrdered By: Willie Lyon on 01-27-2023 Hemoglobin (Bld) [Mass/Vol] 14.0 g/dL 11.8-15.4 [facility] INR in Platelet poor plasma by Coagulation assayOrdered By: Willie Lyon on 01-27-2023 INR Coag (PPP) [Relative time] 1.0 {INR} [facility] Comment on above: INR Therapeutic Rang [...] RBC Auto (Bld) [#/Vol] 6.9 10*3/uL 3.8-11.6 [facility] Lymphocytes Auto (Bld) [#/Vo l]Ordered By: Willie Lyon on 01-27-2023 Lymphocytes (Bld) [#/Vol] 1.6 10*3/uL 1.00-4.8 [facility] Lymphocytes/100 WBC Auto (Bl d)Ordered By: Willie Lyon on 01-27-2023 Lymphocytes/100 WBC (Bld) 23.7 % . [facility] MCH Auto (RBC) [Entitic mass ]Ordered By: Willie Lyon on 01-27-2023 MCH (RBC) [Entitic mass] 29.7 pg 24.7-34.3 [facility] MCHC Auto (RBC) [Mass/Vol]Or dered By: Willie Lyon on 01-27-2023 MCHC (RBC) [Mass/Vol] 33.9 g/dL 32.0-35.0 [facility] MCV Auto (RBC) [Entitic vol] Ordered By: Willie Lyon on 01-27-2023 MCV (RBC) [Entitic vol] 87.5 fL 80-100 [facility] Magnesium [Mass/volume] in S lorraine or PlasmaOrdered By: Willie Lyon on 01-27-2023 Magnesium [Mass/Vol] 2.0 mg/dL 1.9-2.7 [facility] Monocyte distribution width [Entitic volume] in Blood by AutomatedOrdered By: Willie Lyon on 01-27-2023 Monocyte distribution width Auto (Bld) [Entitic vol] 18.32 % 0.00-20.00 [facility] Monocytes Auto (Bld) [#/Vol] Ordered By: Willie Lyon on 01-27-2023 Monocytes (Bld) [#/Vol] 0.5 10*3/uL 0.0-0.8 [facility] Monocytes/100 WBC Auto (Bld) Ordered By: Willie Lyon on 01-27-2023 Monocytes/100 WBC (Bld) 7.4 % . [facility] Natriuretic peptide B [Mass/ Vol]Ordered By: Willie Lyon on 01-27-2023 Natriuretic peptide B (Bld) [Mass/Vol] 359.0 pg/mL 5-100 [facility] Neutrophils Auto (Bld) [#/Vo l]Ordered By: Willie Lyon on 01-27-2023 Neutrophils (Bld) [#/Vol] 4.6 10*3/uL 1.8-7.7 [facility] Neutrophils/100 WBC Auto (Bl d)Ordered By: Willie Lyon on 01-27-2023 Neutrophils/100 WBC (Bld) 66.2 % . [facility] No Panel InformationOrdered By: Willie Lyon on 01-27-2023 Estimated GFR (CKD-EPI) 35.790 mL/Min [facility] Creatinine Clearance (Chem 25.39 [facility] Nucleated erythrocytes [Pres ence] in Blood by Automated countOrdered By: Willie Lyon on 01-27-2023 Nucleated RBC Auto Ql (Bld) 0.1 /100{WBC} 0-0.5 [facility] Platelet mean volume Auto (B ld) [Entitic vol]Ordered By: Willie Lyon on 01-27-2023 Platelet mean volume (Bld) [Entitic vol] 7.7 fL 6.3-10.7 [facility] Platelets Auto (Bld) [#/Vol] Ordered By: Willie Lyon on 01-27-2023 Platelets (Bld) [#/Vol] 281 10*3/uL 150-450 [facility] Potassium [Moles/volume] in Serum or PlasmaOrdered By: Willie Lyon on 01-27-2023 Potassium [Moles/Vol] 4.6 mmol/L 3.5-5.1 [facility] Protein [Mass/volume] in Ser um or PlasmaOrdered By: Willie Lyon on 01-27-2023 Protein [Mass/Vol] 6.9 g/dL 6.4-8.9 [facility] Prothrombin time (PT)Ordered By: Willie Lyon on 01-27-2023 PT Coag (PPP) [Time] 12.2 s 9.0-12.9 [facility] Comment on above: A hematocrit value g reater than 55% may lead to inaccurate results in coagulation testing. Patients having hematocrit values >55% require a special collection tube for coagulation studies. Please contact the laboratory at [phone] for redraw instructions. RBC Auto (Bld) [#/Vol]Ordere d By: Willie Lyon on 01-27-2023 RBC (Bld) [#/Vol] 4.73 10*6/uL 3.60-5.00 [facility] Serum or plasma albumin/glob ulin mass ratioOrdered By: Willie Lyon on 01-27-2023 Albumin/Globulin [Mass ratio] 1.4 {ratio} [facility] Serum or plasma anion gap de terminationOrdered By: Willie Lyon on 01-27-2023 Anion gap [Moles/Vol] 11.2 mmol/L 6.0-15.0 [facility] Sodium [Moles/volume] in Ser um or PlasmaOrdered By: Willie Lyon on 01-27-2023 Sodium [Moles/Vol] 132 mmol/L 136-145 [facility] Thyrotropin [Units/volume] i n Serum or PlasmaOrdered By: Willie Lyon on 01-27-2023 TSH Qn 0.18 m[IU]/L 0.45-5.33 [facility] Troponin I.cardiac [Mass/vol ume] in Serum or Plasma by Detection limit <= 0.01 ng/Ordered By: Elsa Amin on 01-27-2023 Troponin I.cardiac DL <= 0.01 ng/mL [Mass/Vol] 29.5 pg/mL 0.0-15.0 [facility] Troponin I.cardiac [Mass/vol ume] in Serum or Plasma by Detection limit <= 0.01 ng/Ordered By: Willie Lyon on 01-27-2023 Troponin I.cardiac DL <= 0.01 ng/mL [Mass/Vol] 47.3 pg/mL 0.0-15.0 [facility] Urea nitrogen [Mass/volume] in Serum or PlasmaOrdered By: Willie Lyon on 01-27-2023 Urea nitrogen [Mass/Vol] 30 mg/dL 7-25 [facility] WBC Auto (Bld) [#/Vol]Ordere d By: Willie Lyon on 01-27-2023 WBC (Bld) [#/Vol] 6.9 10*3/uL 3.8-11.6 [facility] PTH INTACTon 06-04-2022 PTH, Intact 10 pg/mL Critically low 15-65 [facility] Comment on above: Performed By: #### P THINT #### [facility] [address] [place] [address] Dr. Dario Gil FREE T4on 06-03-2022 Free T4 [Mass/Vol] 1.03 ng/dL Normal 0.76-1.46 [facility] Comment on above: Performed By: #### H H #### [facility] [address] [place] [address] Dr. Dario Gil HEMOGRAM AND PLATELon 2022 Hematocrit (Bld) [Volume fraction] 39.9 % Normal 36.0-48.0 [facility] Comment on above: Performed By: #### H H #### [facility] [address] [place] [address] Dr. Dario Gil Hemoglobin (Bld) [Mass/Vol] 13.9 g/dL Normal 12.0-16.0 [facility] Comment on above: Performed By: #### H H #### [facility] [address] [place] [address] Dr. Dario Gli MCH (RBC) [Entitic mass] 30.6 pg Normal 26.7-34.0 [facility] Comment on above: Performed By: #### H H #### [facility] [address] [place] [address] Dr. Dario Gil MCHC (RBC) [Mass/Vol] 34.8 g/dL Normal 29.9-35.2 [facility] Comment on above: Performed By: #### H H #### [facility] [address] [place] [address] Dr. Dario Gil MCV (RBC) [Entitic vol] 87.9 fL Normal 81.0-99.0 [facility] Comment on above: Performed By: #### H H #### [facility] [address] [place] [address] Dr. Dario Gil PLT 232 103/ul Normal 150-450 [facility] Comment on above: Performed By: #### H H #### [facility] [address] [place] [address] Dr. Dario Gil RBC 4.54 106/ul Normal 4.20-5.40 [facility] Comment on above: Performed By: #### H H #### [facility] [address] [place] [address] Dr. Dario Gil WBC 5.8 103/ul Normal 4.0-11.0 [facility] Comment on above: Performed By: #### H H #### [facility] [address] [place] [address] Dr. Dario Gil MAGNESIUMon 06-03-2022 Magnesium [Mass/Vol] 1.8 mg/dL Normal 1.8-2.4 [facility] Comment on above: Performed By: #### M Humble, URIC, RENAL #### [facility] [address] [place] [address] Dr. Dario Gil RENAL FUNCTION PANELon 06-03 Albumin [Mass/Vol] 4.0 g/dL Normal 3.4-5.0 [facility] Comment on above: Performed By: #### M Humble, URIC, RENAL #### [facility] [address] [place] [address] Dr. Dario Gil Calcium [Mass/Vol] 9.7 mg/dL Normal 8.5-10.1 [facility] Comment on above: Performed By: #### M Humble, URIC, RENAL #### [facility] [address] [place] [address] Dr. Dario Gil Chloride [Moles/Vol] 98 mmol/L Normal 98-107 [facility] Comment on above: Performed By: #### M G, URIC, RENAL #### [facility] [address] [place] [address] Dr. Dario Gil CO2 [Moles/Vol] 29.6 mmol/L Normal 21.0-32.0 [facility] Comment on above: Performed By: #### M G, URIC, RENAL #### [facility] [address] [place] [address] Dr. Dario Gil Creatinine [Mass/Vol] 1.37 mg/dL Critically high 0.55-1.02 [facility] Comment on above: Performed By: #### M G, URIC, RENAL #### [facility] [address] [address] [address] Dario Gil EGFR-AF GUINEAN 45 mL/min/1.73m2 Critically low >=60 [facility] Comment on above: Performed By: #### M G, URIC, RENAL #### [facility] [address] [place] [address] Dr. Dario Gil EGFR-NON AF GUINEAN 37 mL/min/1.73m2 Critically low >=60 [facility] Comment on above: Performed By: #### M G, URIC, RENAL #### [facility] [address] [place] [address] Dr. Dario Gil Glucose [Mass/Vol] 99 mg/dL Normal 74-106 [facility] Comment on above: Performed By: #### M G, URIC, RENAL #### [facility] [address] [place] [address] Dr. Dario Gil Phosphate [Mass/Vol] 3.5 mg/dL Normal 2.6-4.7 [facility] Comment on above: Performed By: #### M G, URIC, RENAL #### [facility] [address] [address] [address] Dario Gil Potassium [Moles/Vol] 4.5 mmol/L Normal 3.5-5.1 [facility] Comment on above: Performed By: #### M G, URIC, RENAL #### [facility] [address] [address] [address] Dario Gil Sodium [Moles/Vol] 134 mmol/L Critically low 136-[address] [facility] Comment on above: Performed By: #### M G, URIC, RENAL #### [facility] [address] [address] [address] Dario Gil Urea nitrogen [Mass/Vol] 26.0 mg/dL Critically high 7.0-18.0 [facility] Comment on above: Performed By: #### M G, URIC, RENAL #### [facility] [address] [address] [address] Dario Gil TSHon 06-03-2022 TSH 8.041 uIU/mL Critically high 0.358-3.74 0 [facility] Comment on above: Performed By: #### T SH #### [facility] [address] [place] [address] Dr. Dario Gil UA RANDOM W/MICROSCOPICon BACTERIA NONE SEEN Normal NONE SEEN [facility] Comment on above: Performed By: #### H H #### [facility] [address] [place] [address] Dr. Dario Gil Bilirubin Ql (U) Negative Normal NEGATIVE [facility] Comment on above: Performed By: #### H H #### [facility] [address] [place] [address] Dr. Dario Gil CAST NONE SEEN Normal NONE SEEN [facility] Comment on above: Performed By: #### H H #### [facility] [address] [place] [address] Dr. Dario Gil Clarity (U) CLEAR Normal CLEAR [facility] Comment on above: Performed By: #### H H #### [facility] [address] [place] [address] Dr. Dario Gil Color (U) LT. YELLOW Normal YELLOW [facility] Comment on above: Performed By: #### H H #### [facility] [address] [place] [address] Dr. Dario Gil Crystals LM Nom (Urine sed) NONE SEEN Normal NONE SEEN [facility] Comment on above: Performed By: #### H H #### [facility] [address] [place] [address] Dr. Dario Gil Epithelial cells LM Ql (Urine sed) FEW Abnormal NONE SEEN /RARE [facility] Comment on above: Performed By: #### H H #### [facility] [address] [place] [address] Dr. Dario Gil Glucose Ql (U) Negative Normal NEGATIVE [facility] Comment on above: Performed By: #### H H #### [facility] [address] [place] [address] Dr. Dario Gil Hemoglobin Ql (U) Negative Normal NEGATIVE [facility] Comment on above: Performed By: #### H H #### [facility] [address] [place] [address] Dr. Dario Gil Ketones Ql (U) Negative Normal NEGATIVE [facility] Comment on above: Performed By: #### H H #### [facility] [address] [place] [address] Dr. Dario Gil LEUKOCYTES TRACE Abnormal NEGATIVE [facility] Comment on above: Performed By: #### H H #### [facility] [address] [place] [address] Dr. Dario Gil MUCOUS NONE SEEN Normal NONE SEEN [facility] Comment on above: Performed By: #### H H #### [facility] [address] [place] [address] Dr. Dario Gil Nitrite Ql (U) Negative Normal NEGATIVE [facility] Comment on above: Performed By: #### H H #### [facility] [address] [place] [address] Dr. Dario Gil pH (U) 5.5 [pH] Normal 5-9 [facility] Comment on above: Performed By: #### H H #### [facility] [address] [place] [address] Dr. Dario Gil RBC 0-2 Normal 0-2 [facility] Comment on above: Performed By: #### H H #### [facility] [address] [place] [address] Dr. Dario Gil SPEC GRAVITY 1.010 Normal 1.005-<=1. 025 [facility] Comment on above: Performed By: #### H H #### [facility] [address] [place] [address] Dr. Dario Gil UA PROTEIN Negative Normal NEGATIVE/ TRACE [facility] Comment on above: Performed By: #### H H #### [facility] [address] [place] [address] Dr. Dario Gil Urobilinogen Qn (U) 0.2 {Carlos'U}/dL Normal 0.2 - 1. 0 [facility] Comment on above: Performed By: #### H H #### [facility] [address] [place] [address] Dr. Dario Gil WBC 0-2 Abnormal NONE SEEN [facility] Comment on above: Performed By: #### H H #### [facility] [address] [place] [address] Dr. Dario Gil URIC ACID SERUMon 06-03-2022 Urate [Mass/Vol] 5.1 mg/dL Normal 2.6-6.0 [facility] Comment on above: Performed By: #### M G, URIC, RENAL #### [facility] [address] [place] [address] Dr. Dario Gil URINE T PROTEIN CREAT RATIOo n 06-03-2022 Protein (U) [Mass/Vol] 5.5 mg/dL Normal <=12.0 [facility] Comment on above: Performed By: #### H H #### [facility] [address] [place] [address] Dr. Dario Gil UR PROT CREAT RAT 0.07 Normal [facility] Comment on above: Performed By: #### H H #### [facility] [address] [place] [address] Dr. Dario Gil URINE CREAT 77.51 mg/dL Normal 20.00-300. 00 [facility] Comment on above: Performed By: #### H H #### [facility] [address] [place] [address] Dr. Dario Gil VITAMIN D 25 OHon 06-03-2022 VIT D 25-OH 58.1 ng/mL Normal [facility] Comment on above: Performed By: #### H H #### [facility] [address] [place] [address] Dr. Dario Gil VIT D RANGES SEE BELOW Normal [facility] Comment on above: Result Comment: <20 ng/mL Vit D deficient 20 - <30 ng/mL Vit D insufficient 30 - 100 ng/mL Vit D sufficient >100 ng/mL Potential Toxicity Performed By: #### H H #### [facility] [address] [place] [address] Dr. Dario Gil Office Visit (Cardiology)on 03-18-2022 [...] MOUTH TWICE A DAY NEEDED Allergies Medication [id number] PTWK Adverse Reaction; Shortness of breath;; Recorded [...] and no PND. Vitals Vital Signs Recorded: [id number] 11:35AMRecorded: [id number] 11:23AM [id number], [id number], LUE, Sitting [id number], Bbbixubu87, LUE, Sitting Heart Rate60, L Radial Height5 ft 4 in Iwnscq847 lb BMI Lnyrqjwegw16.2 kg/m2 BSA Calculated1.69 Tobacco Useb) No Falls [...] and affect . Signatures Meera Avalos MSN, [employer], PMHNP-BC [facility] [employer] Please excuse any errors in grammar or translation related to this dictation. Voice recognition software was utilized to prepare this document. Electronically (more content not included)... Normal [employer] Tobacco Screening.on 022 Fall risk assessment a) No falls within the last year -[facility] [employer] DO Work Phone: Tobacco use status [facility] b) No M P-[facility] [employer] DO Work Phone: PROF CHEM 8 (BAS METB)on Anion gap [Moles/Vol] 5.7 mmol/L Normal [facility] Comment on above: Performed By: #### H H #### [facility] [address] [address] [address] Dario Gil Calcium [Mass/Vol] 9.3 mg/dL Normal 8.5-10.1 [facility] Comment on above: Performed By: #### H H #### [facility] [address] [address] [address] Dario Gil Chloride [Moles/Vol] 97 mmol/L Critically low 98-107 [facility] Comment on above: Performed By: #### H H #### [facility] [address] [address] [address] Dario Gil CO2 [Moles/Vol] 31.9 mmol/L Normal 21.0-32.0 [facility] Comment on above: Performed By: #### H H #### [facility] [address] [address] [address] Dario Gil Creatinine [Mass/Vol] 1.34 mg/dL Critically high 0.55-1.02 [facility] Comment on above: Performed By: #### H H #### [facility] [address] [address] [address] Dario Gil EGFR-AF GUINEAN 46 mL/min/1.73m2 Critically low >=60 [facility] Comment on above: Performed By: #### H H #### [facility] [address] [address] [address] Dario Gil EGFR-NON AF GUINEAN 38 mL/min/1.73m2 Critically low >=60 [facility] Comment on above: Performed By: #### H H #### [facility] [address] [address] [address] Dario Gil Glucose [Mass/Vol] 92 mg/dL Normal 74-106 [facility] Comment on above: Performed By: #### H H #### [facility] [address] [address] [address] Dario Gil Potassium [Moles/Vol] 4.6 mmol/L Normal 3.5-5.1 [facility] Comment on above: Performed By: #### H H #### [facility] [address] [address] [address] Dario Gil Sodium [Moles/Vol] 130 mmol/L Critically low 136-[address] [facility] Comment on above: Performed By: #### H H #### [facility] [address] [address] [address] Dario Gil Urea nitrogen [Mass/Vol] 28.0 mg/dL Critically high 7.0-18.0 [facility] Comment on above: Performed By: #### H H #### [facility] [address] [address] [address] Dario Gil Urea nitrogen/Creatinine [Mass ratio] 20.9 mg/mg Normal [facility] Comment on above: Performed By: #### H H #### [facility] [address] [address] [address] Dario Gil Office Visit (Cardiology)on 01-15-2022 [...] MOUTH TWICE A DAY NEEDED Allergies Medication [id number] Adverse Reaction; Shortness of breath;; Recorded [...] Signs Patient: JANELLE BURT; : 1940; Recorded: [id number] 11:16AMRecorded: [id number] 10:55AMRecorded: [id number] 10:48AM [id number], LUE, [id number], RUE, Sitting [id number], LUE, [id number], RUE, Sitting Heart Rate60, R Radial Height5 ft 4 in Iwbqlw133 lb BMI Yzthjogrdm19.34 (more content not included)... Normal [employer] Tobacco Screening.on 022 Adult depression screening assessment No [facility] [employer] DO Work Phone: Fall risk assessment a) No falls within the last year [facility] [employer] DO Work Phone: Tobacco use status CPHS b) No [facility] [employer] DO Work Phone: PTH INTACTon 12-05-2021 PTH, Intact 14 pg/mL Critically low 15-65 [facility] Comment on above: Performed By: #### P THINT #### [facility] [address] [address] [address] Dario Gil VIT D 25-OH LABCORPon 2021 Vitamin D, 25-Hydroxy 22.8 ng/mL Critically low 30.0-100.0 [facility] Comment on above: Result Comment: Eliza min D deficiency has been defined by the [place] of Medicine and an Endocrine Society practice guideline as a level of serum 25-OH vitamin D less than 20 ng/mL (1,2). The Endocrine Society went on to further define vitamin D insufficiency as a level between 21 and 29 ng/mL (2). 1. IOM ([place] of [employer]). 2010. Dietary reference intakes for calcium and D. [place]: The National Academies Press. 2. Mark WEEMS, Dustin CENTENO, Coni WARD, et al. Evaluation, treatment, and prevention of vitamin D deficiency: an Endocrine Society clinical practice guideline. JCEM. 2010; 96(7):1911-30. Performed By: #### V ITADLC #### [facility] [address] [place] [address] Dr. Dario Gil HEMOGRAM AND PLATELon 2021 Hematocrit (Bld) [Volume fraction] 44.0 % Normal 36.0-48.0 [facility] Comment on above: Performed By: #### H H #### [facility] [address] [place] [address] Dr. Dario Gil Hemoglobin (Bld) [Mass/Vol] 14.9 g/dL Normal 12.0-16.0 [facility] Comment on above: Performed By: #### H H #### [facility] [address] [place] [address] Dr. Dario Gil MCH (RBC) [Entitic mass] 29.7 pg Normal 26.7-34.0 [facility] Comment on above: Performed By: #### H H #### [facility] [address] [place] [address] Dr. Dario Gil MCHC (RBC) [Mass/Vol] 33.9 g/dL Normal 29.9-35.2 [facility] Comment on above: Performed By: #### H H #### [facility] [address] [place] [address] Dr. Dario Gil MCV (RBC) [Entitic vol] 87.8 fL Normal 81.0-99.0 [facility] Comment on above: Performed By: #### H H #### [facility] [address] [place] [address] Dr. Daroi Gil PLT 245 103/ul Normal 150-450 [facility] Comment on above: Performed By: #### H H #### [facility] [address] [place] [address] Dr. Dario Gil RBC 5.01 106/ul Normal 4.20-5.40 [facility] Comment on above: Performed By: #### H H #### [facility] [address] [address] [address] Dario Gil WBC 5.8 103/ul Normal 4.0-11.0 [facility] Comment on above: Performed By: #### H H #### [facility] [address] [address] [address] Dario Gil MAGNESIUMon 12-04-2021 Magnesium [Mass/Vol] 1.9 mg/dL Normal 1.8-2.4 [facility] Comment on above: Performed By: #### H H #### [facility] [address] [place] [address] Dr. Dario Gil RENAL FUNCTION PANELon 12-04 Albumin [Mass/Vol] 3.9 g/dL Normal 3.4-5.0 [facility] Comment on above: Performed By: #### H H #### [facility] [address] [place] [address] Dr. Dario Gil Calcium [Mass/Vol] 9.4 mg/dL Normal 8.5-10.1 [facility] Comment on above: Performed By: #### H H #### [facility] [address] [place] [address] Dr. Dario Gil Chloride [Moles/Vol] 96 mmol/L Critically low 98-107 [facility] Comment on above: Performed By: #### H H #### [facility] [address] [place] [address] Dr. Dario Gil CO2 [Moles/Vol] 30.8 mmol/L Normal 21.0-32.0 [facility] Comment on above: Performed By: #### H H #### [facility] [address] [place] [address] Dr. Dario Gil Creatinine [Mass/Vol] 1.25 mg/dL Critically high 0.55-1.02 [facility] Comment on above: Performed By: #### H H #### [facility] [address] [place] [address] Dr. Dario Gil EGFR-AF GUINEAN 50 mL/min/1.73m2 Critically low >=60 [facility] Comment on above: Performed By: #### H H #### [facility] [address] [address] [address] Dario Gil EGFR-NON AF GUINEAN 41 mL/min/1.73m2 Critically low >=60 [facility] Comment on above: Performed By: #### H H #### [facility] [address] [address] [address] Dario Gil Glucose [Mass/Vol] 93 mg/dL Normal 74-106 [facility] Comment on above: Performed By: #### H H #### [facility] [address] [address] [address] Dario Gil Phosphate [Mass/Vol] 3.4 mg/dL Normal 2.6-4.7 [facility] Comment on above: Performed By: #### H H #### [facility] [address] [address] [address] Dario Gil Potassium [Moles/Vol] 4.2 mmol/L Normal 3.5-5.1 [facility] Comment on above: Performed By: #### H H #### [facility] [address] [address] [address] Dario Gil Sodium [Moles/Vol] 133 mmol/L Critically low 136-[address] [facility] Comment on above: Performed By: #### H H #### [facility] [address] [address] [address] Dario Gil Urea nitrogen [Mass/Vol] 20.0 mg/dL Critically high 7.0-18.0 [facility] Comment on above: Performed By: #### H H #### [facility] [address] [address] [address] Dario Gil UA RANDOM W/MICROSCOPICon BACTERIA NONE SEEN Normal NONE SEEN [facility] Comment on above: Performed By: #### U AMIC #### [facility] [address] [address] [address] Dario Gil Bilirubin Ql (U) Negative Normal NEGATIVE [facility] Comment on above: Performed By: #### U AMIC #### [facility] [address] [address] [address] Dario Gil CAST NONE SEEN Normal NONE SEEN [facility] Comment on above: Performed By: #### U AMIC #### [facility] [address] [address] [address] Dario Gil Clarity (U) CLEAR Normal CLEAR [facility] Comment on above: Performed By: #### U AMIC #### [facility] [address] [address] [address] Dario Gil Color (U) LT. YELLOW Normal YELLOW [facility] Comment on above: Performed By: #### U AMIC #### [facility] [address] [place] [address] Dr. Dario Gil Crystals LM Nom (Urine sed) NONE SEEN Normal NONE SEEN [facility] Comment on above: Performed By: #### U AMIC #### [facility] [address] [place] [address] Dr. Dario Gil Epithelial cells LM Ql (Urine sed) FEW Abnormal NONE SEEN /RARE [facility] Comment on above: Performed By: #### U AMIC #### [facility] [address] [place] [address] Dr. Dario Gil Glucose Ql (U) Negative Normal NEGATIVE [facility] Comment on above: Performed By: #### U AMIC #### [facility] [address] [place] [address] Dr. Dario Gil Hemoglobin Ql (U) Negative Normal NEGATIVE [facility] Comment on above: Performed By: #### U AMIC #### [facility] [address] [place] [address] Dr. Dario Gil Ketones Ql (U) Negative Normal NEGATIVE [facility] Comment on above: Performed By: #### U AMIC #### [facility] [address] [place] [address] Dr. Dario Gil LEUKOCYTES SMALL Abnormal NEGATIVE [facility] Comment on above: Performed By: #### U AMIC #### [facility] [address] [place] [address] Dr. Dario Gil MUCOUS NONE SEEN Normal NONE SEEN [facility] Comment on above: Performed By: #### U AMIC #### [facility] [address] [address] [address] Dario Gil Nitrite Ql (U) Negative Normal NEGATIVE [facility] Comment on above: Performed By: #### U AMIC #### [facility] [address] [place] [address] Dr. Dario Gil pH (U) 7.0 [pH] Normal 5-9 [facility] Comment on above: Performed By: #### U AMIC #### [facility] [address] [place] [address] Dr. Dario Gil RBC 0-2 Normal 0-2 [facility] Comment on above: Performed By: #### U AMIC #### [facility] [address] [place] [address] Dr. Dario Gil SPEC GRAVITY 1.010 Normal 1.005-<=1. 025 [facility] Comment on above: Performed By: #### U AMIC #### [facility] [address] [place] [address] Dr. Dario Gil UA PROTEIN Negative Normal NEGATIVE/ TRACE [facility] Comment on above: Performed By: #### U AMIC #### [facility] [address] [place] [address] Dr. Dario Gil Urobilinogen Qn (U) 0.2 {Carlos'U}/dL Normal 0.2 - 1. 0 [facility] Comment on above: Performed By: #### U AMIC #### [facility] [address] [place] [address] Dr. Dario Gil WBC 0-2 Abnormal NONE SEEN [facility] Comment on above: Performed By: #### U AMIC #### [facility] [address] [place] [address] Dr. Dario Gil URIC ACID SERUMon 12-04-2021 Urate [Mass/Vol] 5.3 mg/dL Normal 2.6-6.0 [facility] Comment on above: Performed By: #### H H #### [facility] [address] [address] [address] Dario Gil URINE T PROTEIN CREAT RATIOo n 12-04-2021 Protein (U) [Mass/Vol] 6.0 mg/dL Normal <=12.0 [facility] Comment on above: Performed By: #### H H #### [facility] [address] [address] [address] Dario Gil UR PROT CREAT RAT 0.06 Normal [facility] Comment on above: Performed By: #### H H #### [facility] [address] [address] [address] Dario Gil URINE CREAT 96.21 mg/dL Normal 20.00-300. 00 [facility] Comment on above: Performed By: #### H H #### [facility] [address] [place] [address] Dr. Dario Gil Tobacco Screening.on 021 Fall risk assessment a) No falls within the last year [facility] [employer] DO Work Phone: Tobacco use status CPHS b) No [facility] [employer] DO Work Phone: Vital Signs Date Time Vital Sign Value Performing Clinician Facility 01-03-2025 13:15-0400 Body height 162.56 cm Antonino Gustafson MD Work Phone: [facility] 01-03-2025 13:15-0400 Body mass index (BMI) [Ratio] 22.6 kg/m2 Antonino Gustafson MD Work Phone: [facility] 01-03-2025 13:15-0400 Body weight 59.87 kg Antonino Gustafson MD Work Phone: [facility] 01-03-2025 13:15-0400 Diastolic blood pressure 78 mm[Hg] Antonino Gustafson MD Work Phone: [facility] 01-03-2025 13:15-0400 Heart rate 58 /min Antonino Gustafson MD Work Phone: [facility] 01-03-2025 13:15-0400 SaO2% (BldA) [Mass fraction] 98 % Antonino Gustafson MD Work Phone: [facility] 01-03-2025 13:15-0400 Systolic blood pressure 122 mm[Hg] Antonino Gustafson MD Work Phone: [facility] 11-21-2024 10:59-0400 Diastolic blood pressure 74 mm[Hg] Michael Ramos DO Work Phone: [facility] 11-21-2024 10:59-0400 Systolic blood pressure 132 mm[Hg] Michael Ramos DO Work Phone: [facility] 11-21-2024 10:56-0400 Body height 162.6 cm Michael Ramos DO Work Phone: [facility] 11-21-2024 10:56-0400 Body mass index (BMI) [Ratio] 22.31 kg/m2 Michael Ramos DO Work Phone: [facility] 11-21-2024 10:56-0400 Body weight 58.97 kg Michael Richard DO Work Phone: [facility] 11-21-2024 10:56-0400 Heart rate 52 /min Michael Ramos DO Work Phone: [facility] 09-27-2024 11:20-0400 Diastolic blood pressure 90 mm[Hg] Michael Ramos DO Work Phone: [facility] 09-27-2024 11:20-0400 Systolic blood pressure 170 mm[Hg] Michael Ramos DO Work Phone: [facility] 09-27-2024 10:52-0400 Body height 162.6 cm Michael Ramos DO Work Phone: [facility] 09-27-2024 10:52-0400 Body mass index (BMI) [Ratio] 23.14 kg/m2 Michael Ramos DO Work Phone: [facility] 09-27-2024 10:52-0400 Body weight 61.15 kg Michael Ramos DO Work Phone: [facility] 09-27-2024 10:52-0400 Heart rate 68 /min Michael Ramos DO Work Phone: [facility] 09-25-2024 14:34-0400 Body height 162.56 cm Antonino Gustafson MD Work Phone: [facility] 09-25-2024 14:34-0400 Body mass index (BMI) [Ratio] 22.7 kg/m2 Antonino Gustafson MD Work Phone: [facility] 09-25-2024 14:34-0400 Body weight 60.1 kg Antonino Gustafson MD Work Phone: [facility] 09-25-2024 14:34-0400 Diastolic blood pressure 81 mm[Hg] Antonino Gustafson MD Work Phone: [facility] 09-25-2024 14:34-0400 Heart rate 61 /min Antonino Gustafson MD Work Phone: [facility] 09-25-2024 14:34-0400 Systolic blood pressure 190 mm[Hg] Antonino Gustafson MD Work Phone: [facility] 09-20-2024 10:37-0400 Body height 162.56 cm Antoinno Gustafson MD Work Phone: [facility] 09-20-2024 10:37-0400 Body mass index (BMI) [Ratio] 23.1 kg/m2 Antonino Gustafson MD Work Phone: [facility] 09-20-2024 10:37-0400 Body weight 61.24 kg Antonino Gustafson MD Work Phone: [facility] 09-20-2024 10:37-0400 Diastolic blood pressure 86 mm[Hg] Antonino Gustafson MD Work Phone: [facility] 09-20-2024 10:37-0400 Heart rate 64 /min Antonino Gustafson MD Work Phone: [facility] 09-20-2024 10:37-0400 SaO2% (BldA) [Mass fraction] 97 % Antonino Gustafson MD Work Phone: [facility] 09-20-2024 10:37-0400 Systolic blood pressure 148 mm[Hg] Antonino Gustafson MD Work Phone: [facility] 08-29-2024 14:22-0400 Body height 162.56 cm Antonino Gustafson MD Work Phone: [facility] 08-29-2024 14:22-0400 Body mass index (BMI) [Ratio] 23.1 kg/m2 Antonino Gustafson MD Work Phone: [facility] 08-29-2024 14:22-0400 Body weight 61.23 kg Antonino Gustafson MD Work Phone: [facility] 08-29-2024 14:22-0400 Diastolic blood pressure 73 mm[Hg] Antonino Gustafson MD Work Phone: [facility] 08-29-2024 14:22-0400 Heart rate 64 /min Antonino Gustafson MD Work Phone: [facility] 08-29-2024 14:22-0400 Respiratory rate 12 /min Antonino Gustafson MD Work Phone: [facility] 08-29-2024 14:22-0400 SaO2% (BldA) [Mass fraction] 97 % Antonino Gustafson MD Work Phone: [facility] 08-29-2024 14:22-0400 Systolic blood pressure 158 mm[Hg] Antonino Gustafson MD Work Phone: [facility] 08-07-2024 14:05-0400 Body height 162.56 cm Antonino Gustafson MD Work Phone: [facility] 08-07-2024 14:05-0400 Body mass index (BMI) [Ratio] 22.6 kg/m2 Antonino Gustafson MD Work Phone: [facility] 08-07-2024 14:05-0400 Body weight 59.87 kg Antonino Gustafson MD Work Phone: [facility] 08-07-2024 14:05-0400 Diastolic blood pressure 68 mm[Hg] Antonino Gustafson MD Work Phone: [facility] 08-07-2024 14:05-0400 Heart rate 66 /min Antonino Gustafson MD Work Phone: [facility] 08-07-2024 14:05-0400 Systolic blood pressure 186 mm[Hg] Antonino Gustafson MD Work Phone: [facility] 08-02-2024 04:35-0400 Body temperature 97.3 [degF] Antonino Gustafson MD Work Phone: [facility] 08-02-2024 04:35-0400 Diastolic blood pressure 79 mm[Hg] Antonino Gustafson MD Work Phone: [facility] 08-02-2024 04:35-0400 Heart rate 60 /min Antonino Gustafson MD Work Phone: [facility] 08-02-2024 04:35-0400 Respiratory rate 15 /min Antonino Gustafson MD Work Phone: [facility] 08-02-2024 04:35-0400 SaO2% (BldA) [Mass fraction] 97 % Antonino Gustafson MD Work Phone: [facility] 08-02-2024 04:35-0400 Systolic blood pressure 182 mm[Hg] Antonino Gustafson MD Work Phone: [facility] 08-01-2024 12:25-0400 Body height 162.56 cm Antonino Gustafson MD Work Phone: [facility] 07-30-2024 04:54-0400 Body weight 60.2 kg Antonino Gustafson MD Work Phone: [facility] 07-25-2024 12:00-0400 Body temperature 98.1 [degF] Antonino Gustafson MD Work Phone: [facility] 07-25-2024 12:00-0400 Diastolic blood pressure 65 mm[Hg] Antonino Gustafson MD Work Phone: [facility] 07-25-2024 12:00-0400 Heart rate 63 /min Antonino Gustafson MD Work Phone: [facility] 07-25-2024 12:00-0400 Respiratory rate 24 /min Antonino Gustafson MD Work Phone: [facility] 07-25-2024 12:00-0400 SaO2% (BldA) [Mass fraction] 96 % Antonino Gustafson MD Work Phone: [facility] 07-25-2024 12:00-0400 Systolic blood pressure 138 mm[Hg] Antonino Gustafson MD Work Phone: [facility] 07-25-2024 06:00-0400 Body weight 64.1 kg Antonino Gustafson MD Work Phone: [facility] 07-23-2024 16:01-0400 Body height 160.02 cm Antonino Gustafson MD Work Phone: [facility] 07-23-2024 08:00-0400 Inhaled oxygen flow rate 2 L/min Antonino Gustafson MD Work Phone: [facility] 07-23-2024 01:21-0400 Diastolic blood pressure 63 mm[Hg] Antonino Gustafson MD Work Phone: [facility] 07-23-2024 01:21-0400 Heart rate 95 /min Antonino Gustafson MD Work Phone: [facility] 07-23-2024 01:21-0400 Inhaled oxygen flow rate 2 L/min Antonino Gustafson MD Work Phone: [facility] 07-23-2024 01:21-0400 Respiratory rate 18 /min Antonino Gustafson MD Work Phone: [facility] 07-23-2024 01:21-0400 SaO2% (BldA) [Mass fraction] 99 % Antonino Gustafson MD Work Phone: [facility] 07-23-2024 01:21-0400 Systolic blood pressure 158 mm[Hg] Antonino Gustafson MD Work Phone: [facility] 07-22-2024 21:12-0400 Body temperature 98.7 [degF] Antonino Gustafson MD Work Phone: [facility] 07-22-2024 21:090400 Body height 165.1 cm Antonino Gustafson MD Work Phone: [facility] 07-22-2024 21:090400 Body weight 61.5 kg Antonino Gustafson MD Work Phone: [facility] 05-25-2024 10:28-0500 Diastolic blood pressure 82 mm[Hg] Michael Ramos DO Work Phone: [facility] 05-25-2024 10:28-0500 Systolic blood pressure 148 mm[Hg] Michael Ramos DO Work Phone: [facility] 05-25-2024 10:250500 Body height 162.6 cm Michael Ramos DO Work Phone: [facility] 05-25-2024 10:25-0500 Body mass index (BMI) [Ratio] 22.8 kg/m2 Michael Ramos DO Work Phone: [facility] 05-25-2024 10:250500 Body weight 60.24 kg Michael Ramos DO Work Phone: [facility] 05-25-2024 10:25-0500 Heart rate 60 /min Michael Ramos DO Work Phone: [facility] 05-22-2024 13:36-0500 Body height 162.56 cm [facility] 05-22-2024 13:36-0500 Body mass index (BMI) [Ratio] 22 kg/m2 [facility] 05-22-2024 13:36-0500 Body weight 58.28 kg [facility] 05-22-2024 13:36-0500 Diastolic blood pressure 80 mm[Hg] [facility] 05-22-2024 13:36-0500 Heart rate 56 /min [facility] 05-22-2024 13:36-0500 Respiratory rate 12 /min [facility] 05-22-2024 13:36-0500 SaO2% (BldA) [Mass fraction] 97 % [facility] 05-22-2024 13:36-0500 Systolic blood pressure 124 mm[Hg] [facility] 04-05-2024 11:59-0500 Diastolic blood pressure 78 mm[Hg] Michael Ramos DO Work Phone: [facility] 04-05-2024 11:59-0500 Systolic blood pressure 180 mm[Hg] Michael Ramos DO Work Phone: [facility] 04-05-2024 11:19-0500 Heart rate 56 /min Michael Ramos DO Work Phone: [facility] 04-05-2024 11:15-0500 Body height 162.6 cm Michael Ramos DO Work Phone: [facility] 04-05-2024 11:15-0500 Body mass index (BMI) [Ratio] 22.31 kg/m2 Michael Ramos DO Work Phone: [facility] 04-05-2024 11:15-0500 Body weight 58.97 kg Michael Ramos DO Work Phone: [facility] 04-04-2024 13:33-0500 Body height 162.6 cm Amanda Bray [employer] Work Phone: [facility] 04-04-2024 13:33-0500 Body mass index (BMI) [Ratio] 22.31 kg/m2 Amanda Bray [employer] Work Phone: [facility] 04-04-2024 13:33-0500 Body weight 58.97 kg Amanda Bray [employer] Work Phone: [facility] 04-04-2024 13:33-0500 Diastolic blood pressure 68 mm[Hg] Amanda Bray [employer] Work Phone: [facility] 04-04-2024 13:33-0500 Heart rate 67 /min Amanda Bray [employer] Work Phone: [facility] 04-04-2024 13:33-0500 SaO2% (BldA) [Mass fraction] 99 % Amanda Bray [employer] Work Phone: [facility] 04-04-2024 13:33-0500 Systolic blood pressure 122 mm[Hg] Amanda Bray [employer] Work Phone: [facility] 03-28-2024 10:33-0500 Body height 162.56 cm [facility] 03-28-2024 10:33-0500 Body mass index (BMI) [Ratio] 22.3 kg/m2 [facility] 03-28-2024 10:33-0500 Body temperature 96.9 [degF] [facility] 03-28-2024 10:33-0500 Body weight 58.96 kg [facility] 03-28-2024 10:33-0500 Diastolic blood pressure 85 mm[Hg] [facility] 03-28-2024 10:33-0500 Heart rate 62 /min [facility] 03-28-2024 10:33-0500 Respiratory rate 16 /min [facility] 03-28-2024 10:33-0500 SaO2% (BldA) [Mass fraction] 98 % [facility] 03-28-2024 10:33-0500 Systolic blood pressure 163 mm[Hg] [facility] 03-14-2024 13:41-0500 Body height 162.56 cm [facility] 03-14-2024 13:41-0500 Body mass index (BMI) [Ratio] 22.3 kg/m2 [facility] 03-14-2024 13:41-0500 Body weight 58.96 kg [facility] 03-14-2024 13:41-0500 Diastolic blood pressure 77 mm[Hg] [facility] 03-14-2024 13:41-0500 Heart rate 61 /min [facility] 03-14-2024 13:41-0500 Systolic blood pressure 178 mm[Hg] [facility] 03-07-2024 14:06-0500 Hourly Rounding Willie Caio [facility] 03-07-2024 14:06-0500 Promise to Return Willie Caoi [facility] 03-07-2024 13:19-0500 Hourly Rounding Willie Caio [facility] 03-07-2024 13:19-0500 Promise to Return Willie Caio [facility] 03-07-2024 12:28-0500 Hourly Rounding Willie Caio [facility] 03-07-2024 12:28-0500 Promise to Return Willie Caio [facility] 03-07-2024 11:45-0500 Diastolic blood pressure 63 mm[Hg] Willie Caio [facility] 03-07-2024 11:45-0500 Heart rate 86 /min Willie Caio [facility] 03-07-2024 11:45-0500 Systolic blood pressure 149 mm[Hg] Willie Caio [facility] 03-07-2024 10:13-0500 Heart rate 86 /min Willie Caio [facility] 03-07-2024 10:13-0500 SaO2% (BldA) [Mass fraction] 96 % Willie Caio [facility] 03-07-2024 10:12-0500 Diastolic blood pressure 63 mm[Hg] Willie Caio [facility] 03-07-2024 10:12-0500 Mean blood pressure 92 mm[Hg] Willie Caio [facility] 03-07-2024 10:12-0500 Systolic blood pressure 149 mm[Hg] Willie Fatimaer [facility] 03-07-2024 10:12-0500 Body temperature 98.06 [degF] Willie Fatimaer [facility] 03-07-2024 07:22-0500 Heart rate 87 /min Willie Fatimaer [facility] 03-07-2024 07:22-0500 SaO2% (BldA) [Mass fraction] 97 % Willie Kearney [facility] 03-07-2024 07:21-0500 Diastolic blood pressure 67 mm[Hg] Willie Kearney [facility] 03-07-2024 07:21-0500 Mean blood pressure 102 mm[Hg] Willie Kearney [facility] 03-07-2024 07:21-0500 Systolic blood pressure 173 mm[Hg] Willie Kearney [facility] 03-07-2024 07:19-0500 Body temperature 98.24 [degF] Willie Kearney [facility] 03-07-2024 04:00-0500 Blood Pressure Location Willie Fatimaer [facility] 03-07-2024 04:00-0500 Body temperature 98.78 [degF] Willie Fatimaer [facility] 03-07-2024 04:00-0500 Heart rate 85 /min Willie Fatimaer [facility] 03-07-2024 04:00-0500 Mean blood pressure 105 mm[Hg] Willie Fatimaer [facility] 03-07-2024 04:00-0500 Respiratory rate 18 /min Willie Kearney [facility] 03-07-2024 01:00-0500 Heart rate 70 /min Willie Kearney [facility] 03-07-2024 01:00-0500 Mean blood pressure 99 mm[Hg] Willie Kearney [facility] 03-07-2024 01:00-0500 Respiratory rate 18 /min Willie Kearney [facility] 03-07-2024 00:00-0500 Body temperature 98.6 [degF] Willie Kearney [facility] 03-06-2024 21:25-0500 Blood Pressure Location Willie Kearney [facility] 03-06-2024 21:25-0500 Body temperature 98.24 [degF] Willie Kearney [facility] 03-06-2024 20:38-0500 Mean blood pressure 111 mm[Hg] Willie Kearney [facility] 03-06-2024 20:38-0500 Body temperature 98.24 [degF] Willie Kearney [facility] 01-18-2024 12:19-0400 Diastolic blood pressure 100 mm[Hg] Michael Ramos DO Work Phone: [facility] 01-18-2024 12:19-0400 Systolic blood pressure 170 mm[Hg] Michael Ramos DO Work Phone: [facility] 01-18-2024 11:21-0400 Body height 162.6 cm Michael Ramos DO Work Phone: [facility] 01-18-2024 11:21-0400 Body mass index (BMI) [Ratio] 23 kg/m2 Michael Ramos DO Work Phone: [facility] 01-18-2024 11:040 Body weight 60.78 kg Michael Ramos DO Work Phone: [facility] 01-18-2024 11:040 Heart rate 60 /min Michael Ramos DO Work Phone: [facility] 12-22-2023 13:040 Body height 162.56 cm [facility] 12-22-2023 13:0400 Body mass index (BMI) [Ratio] 23.6 kg/m2 [facility] 12-22-2023 13:26-0400 Body temperature 96.8 [degF] [facility] 12-22-2023 13:26-0400 Body weight 62.25 kg [facility] 12-22-2023 13:26-0400 Diastolic blood pressure 74 mm[Hg] [facility] 12-22-2023 13:26-0400 Heart rate 68 /min [facility] 12-22-2023 13:26-0400 Respiratory rate 16 /min [facility] 12-22-2023 13:26-0400 SaO2% (BldA) [Mass fraction] 98 % [facility] 12-22-2023 13:26-0400 Systolic blood pressure 131 mm[Hg] [facility] 12-17-2023 11:130400 Body height 162.56 cm [facility] 12-17-2023 11:130400 Body mass index (BMI) [Ratio] 22.6 kg/m2 [facility] 12-17-2023 11:130400 Body weight 59.87 kg [facility] 12-17-2023 11:13-0400 Diastolic blood pressure 68 mm[Hg] [facility] 12-17-2023 11:13-0400 Heart rate 63 /min [facility] 12-17-2023 11:13-0400 Systolic blood pressure 162 mm[Hg] [facility] 08-05-2023 10:46-0400 Body height 162.56 cm [facility] 08-05-2023 10:46-0400 Body mass index (BMI) [Ratio] 23.3 kg/m2 [facility] 08-05-2023 10:46-0400 Body temperature 96.1 [degF] [facility] 08-05-2023 10:46-0400 Body weight 61.8 kg [facility] 08-05-2023 10:46-0400 Diastolic blood pressure 80 mm[Hg] [facility] 08-05-2023 10:46-0400 Heart rate 68 /min [facility] 08-05-2023 10:46-0400 Respiratory rate 16 /min [facility] 08-05-2023 10:46-0400 SaO2% (BldA) [Mass fraction] 98 % [facility] 08-05-2023 10:46-0400 Systolic blood pressure 132 mm[Hg] [facility] 05-18-2023 11:27-0500 Body height 162.6 cm Michael Ramos DO Work Phone: [facility] 05-18-2023 11:27-0500 Body mass index (BMI) [Ratio] 22.49 kg/m2 Michael Ramos DO Work Phone: [facility] 05-18-2023 11:27-0500 Body weight 59.42 kg Michael Ramos DO Work Phone: [facility] 05-18-2023 11:27-0500 Diastolic blood pressure 80 mm[Hg] Michael Ramos DO Work Phone: [facility] 05-18-2023 11:27-0500 Heart rate 64 /min Michael Ramos DO Work Phone: [facility] 05-18-2023 11:27-0500 Systolic blood pressure 140 mm[Hg] Michael Ramos DO Work Phone: [facility] 03-10-2023 10:36-0500 Body height 162.6 cm Meera PEARL Work Phone: [facility] 03-10-2023 10:36-0500 Body mass index (BMI) [Ratio] 22.31 kg/m2 Meera Avalos [employer] Work Phone: [facility] 03-10-2023 10:36-0500 Body weight 58.97 kg Meera Avalos [employer] Work Phone: [facility] 03-10-2023 10:36-0500 Diastolic blood pressure 66 mm[Hg] Meera Avalos [employer] Work Phone: [facility] 03-10-2023 10:36-0500 Heart rate 64 /min Meera Avalos [employer] Work Phone: [facility] 03-10-2023 10:36-0500 Systolic blood pressure 140 mm[Hg] Meera Avalos [employer] Work Phone: [facility] 02-02-2023 11:00-0500 Body height 162.56 cm Antonino Gustafson Other [facility] Other 02-02-2023 11:00-0500 Body mass index (BMI) [Ratio] 22.14 kg/m2 Antonino Gustafson Other [facility] Other 02-02-2023 11:00-0500 Body weight 58.51 kg Antonino Gustafson Other [facility] Other 02-02-2023 11:00-0500 Diastolic blood pressure 63 mm[Hg] Antonino Gustafson Other [facility] Other 02-02-2023 11:00-0500 Systolic blood pressure 127 mm[Hg] Antonino Gustafson Other [facility] Other 01-29-2023 14:05-0400 Body temperature 97.2 [degF] MD Antonino Gustafson Work Phone: [facility] 01-29-2023 14:05-0400 Diastolic blood pressure 71 mm[Hg] MD Antonino Gustafson Work Phone: [facility] 01-29-2023 14:05-0400 Heart rate 75 /min MD Antonino Gustafson Work Phone: [facility] 01-29-2023 14:05-0400 Respiratory rate 16 /min MD Antonino Gustafson Work Phone: [facility] 01-29-2023 14:05-0400 SaO2% (BldA) [Mass fraction] 95 % MD Antonino Gustafson Work Phone: [facility] 01-29-2023 14:05-0400 Systolic blood pressure 156 mm[Hg] MD Antonino Gustafson Work Phone: [facility] 01-29-2023 05:56-0400 Body weight 57.1 kg MD Antonino Gustafson Work Phone: [facility] 01-28-2023 16:00-0400 Body height 162.56 cm MD Antonino Gustafson Work Phone: [facility] 01-27-2023 10:54-0400 Body temperature 97.8 [degF] MD Antonino Gustafson Work Phone: [facility] 01-27-2023 10:54-0400 Diastolic blood pressure 74 mm[Hg] MD Antonino Gustafson Work Phone: [facility] 01-27-2023 10:54-0400 Heart rate 64 /min MD Antonino Gustafson Work Phone: [facility] 01-27-2023 10:54-0400 Respiratory rate 20 /min MD Antonino Gustafson Work Phone: [facility] 01-27-2023 10:54-0400 SaO2% (BldA) [Mass fraction] 100 % MD Antonino Gustafson Work Phone: [facility] 01-27-2023 10:54-0400 Systolic blood pressure 181 mm[Hg] MD Antonino Gustafson Work Phone: [facility] 01-27-2023 07:53-0400 Body height 162.56 cm MD Antonino Gustafson Work Phone: [facility] 01-27-2023 07:53-0400 Body weight 58.96 kg MD Antonino Gustafson Work Phone: [facility] 01-04-2023 13:00-0400 Body height 162.56 cm Liliya Bhavna Other [facility] Other 01-04-2023 13:00-0400 Body mass index (BMI) [Ratio] 22.59 kg/m2 Liliya Bhavna Other [facility] Other 01-04-2023 13:00-0400 Body temperature 96.4 [degF] Liliya Bhavna Other [facility] Other 01-04-2023 13:00-0400 Body weight 59.69 kg Liliya Bhavna Other [facility] Other 01-04-2023 13:00-0400 Diastolic blood pressure 74 mm[Hg] Liliya Bhavna Other [facility] Other 01-04-2023 13:00-0400 Respiratory rate 18 /min Liliya Bhavna Other [facility] Other 01-04-2023 13:00-0400 SaO2% (BldA) [Mass fraction] 98 % Liliya Bhavna Other [facility] Other 01-04-2023 13:00-0400 Systolic blood pressure 153 mm[Hg] Liliya Bhavna Other [facility] Other 11-03-2022 15:30-0400 Body height 162.56 cm Antonino Gustafson Other [facility] Other 11-03-2022 15:30-0400 Body mass index (BMI) [Ratio] 22.83 kg/m2 Antonino Gustafson Other [facility] Other 11-03-2022 15:30-0400 Body weight 60.33 kg Antonino Gustafson Other [facility] Other 11-03-2022 15:30-0400 Diastolic blood pressure 55 mm[Hg] Antonino Gustafson Other [facility] Other 11-03-2022 15:30-0400 Systolic blood pressure 146 mm[Hg] Antonino Gustafson Other [facility] Other 06-11-2022 11:40-0400 Body height 162.56 cm Liliya Bhavna Other [facility] Other 06-11-2022 11:40-0400 Body mass index (BMI) [Ratio] 24.92 kg/m2 Liliya Bhavna Other [facility] Other 06-11-2022 11:40-0400 Body temperature 96.9 [degF] Liliya Bhavna Other [facility] Other 06-11-2022 11:40-0400 Body weight 65.86 kg Liliya Bhavna Other [facility] Other 06-11-2022 11:40-0400 Diastolic blood pressure 88 mm[Hg] Liliya Bhavna Other [facility] Other 06-11-2022 11:40-0400 Respiratory rate 18 /min Liliya Bhavna Other [facility] Other 06-11-2022 11:40-0400 SaO2% (BldA) [Mass fraction] 98 % Liliya Bhavna Other [facility] Other 06-11-2022 11:40-0400 Systolic blood pressure 138 mm[Hg] Liliya Bhavna Other [facility] Other 03-18-2022 11:35-0500 Diastolic blood pressure 62 mm[Hg] Antonino Gustafson [facility] Phone: [facility] Work Phone: 03-18-2022 11:35-0500 Systolic blood pressure 130 mm[Hg] Antonino Gustafson Work Phone: [facility] [employer] 250 DO Work Phone: 03-18-2022 11:23-0500 Body height 162.56 cm Antonino Gustafson Work Phone: [facility] 250 DO Work Phone: 03-18-2022 11:23-0500 Body mass index (BMI) [Ratio] 24.2 kg/m2 Antonino Gustafson Work Phone: [facility] 250 DO Work Phone: 03-18-2022 11:23-0500 Body surface area Derived from formula 1.69 m2 Antonino Gustafson Work Phone: [facility] 250 DO Work Phone: 03-18-2022 11:23-0500 Body weight 63.96 kg Antonino Gustafson Work Phone: [facility] 250 DO Work Phone: 03-18-2022 11:23-0500 Diastolic blood pressure 60 mm[Hg] Antonino Gustafson Work Phone: [facility] 250 DO Work Phone: 03-18-2022 11:23-0500 Heart rate 60 /min Antonino Gustafson Work Phone: [facility] 250 DO Work Phone: 03-18-2022 11:23-0500 Systolic blood pressure 142 mm[Hg] Antonino Gustafson Work Phone: [facility] 250 DO Work Phone: 01-15-2022 11:16-0400 Diastolic blood pressure 80 mm[Hg] Antonino Gustafson Work Phone: [facility] 250 DO Work Phone: 01-15-2022 11:16-0400 Systolic blood pressure 192 mm[Hg] Antonino Gustafson Work Phone: [facility] 250 DO Work Phone: 01-15-2022 10:55-0400 Diastolic blood pressure 80 mm[Hg] Antonino Gustafson Work Phone: [facility] 250 DO Work Phone: 01-15-2022 10:55-0400 Systolic blood pressure 218 mm[Hg] Antonino Gustafson Work Phone: [facility] 250 DO Work Phone: 01-15-2022 10:48-0400 Body height 162.56 cm Antonino Gustafson Work Phone: [facility] 250 DO Work Phone: 01-15-2022 10:48-0400 Body mass index (BMI) [Ratio] 23.34 kg/m2 Antonino Gustafson Work Phone: [facility] 250 DO Work Phone: 01-15-2022 10:48-0400 Body surface area Derived from formula 1.66 m2 Antonino Gustafson Work Phone: [facility] 250 DO Work Phone: 01-15-2022 10:48-0400 Body weight 61.69 kg Antonino Gustafson Work Phone: [facility] 250 DO Work Phone: 01-15-2022 10:48-0400 Diastolic blood pressure 74 mm[Hg] Antonino Gustafson Work Phone: [facility] 250 DO Work Phone: 01-15-2022 10:48-0400 Heart rate 60 /min Antonino Gustafson Work Phone: [facility] 250 DO Work Phone: 01-15-2022 10:48-0400 Systolic blood pressure 220 mm[Hg] Antonino Gustafson Work Phone: [facility] 250 DO Work Phone: 12-08-2021 11:40-0400 Body height 162.56 cm Liliya Bhavna Other [facility] Other 12-08-2021 11:40-0400 Body mass index (BMI) [Ratio] 23.34 kg/m2 Liliya Bhavna Other [facility] Other 12-08-2021 11:40-0400 Body temperature 97.2 [degF] Liliya Bhavna Other [facility] Other 12-08-2021 11:40-0400 Body weight 61.69 kg Liliya Bhavna Other [facility] Other 12-08-2021 11:40-0400 Diastolic blood pressure 72 mm[Hg] Liliya Bhavna Other [facility] Other 12-08-2021 11:40-0400 Respiratory rate 18 /min Liliya Bhavna Other [facility] Other 12-08-2021 11:40-0400 SaO2% (BldA) [Mass fraction] 99 % Liliya Bhavna Other [facility] Other 12-08-2021 11:40-0400 Systolic blood pressure 130 mm[Hg] Liliya Bhavna Other [facility] Other 10-31-2021 03:30-0400 Diastolic blood pressure 85 mm[Hg] MD Antonino Gustafson Work Phone: [facility] 10-31-2021 03:30-0400 Heart rate 55 /min MD Antonino Gustafson Work Phone: [facility] 10-31-2021 03:30-0400 Respiratory rate 18 /min MD Antonino Gustafson Work Phone: [facility] 10-31-2021 03:30-0400 SaO2% (BldA) [Mass fraction] 96 % MD Antonino Gustafson Work Phone: [facility] 10-31-2021 03:30-0400 Systolic blood pressure 193 mm[Hg] MD Antonino Gustafson Work Phone: [facility] 10-31-2021 00:19-0400 Body height 162.56 cm MD Antonino Gustafson Work Phone: [facility] 10-31-2021 00:19-0400 Body temperature 98 [degF] MD Antonino Gustafson Work Phone: [facility] 10-31-2021 00:19-0400 Body weight 58.96 kg MD Antonino Gustafson Work Phone: [facility] 05-29-2021 11:00-0500 Body height Liliya Bhavna Other [facility] Other 05-29-2021 11:00-0500 Body mass index (BMI) [Ratio] 24.03 kg/m2 Liliya Bhavna Other [facility] Other 05-29-2021 11:00-0500 Body weight 63.5 kg Liliya Bhavna Other [facility] Other 05-29-2021 11:00-0500 Diastolic blood pressure 76 mm[Hg] Liliya Bhavna Other [facility] Other 05-29-2021 11:00-0500 Respiratory rate 18 /min Liliya Bhavna Other [facility] Other 05-29-2021 11:00-0500 SaO2% (BldA) [Mass fraction] 99 % Liliya Bhavna Other [facility] Other 05-29-2021 11:00-0500 Systolic blood pressure 134 mm[Hg] Liliya Bhavna Other [facility] Other 01-09-2021 11:30-0400 Diastolic blood pressure 70 mm[Hg] Antonino Gustafson Work Phone: [facility] [employer] DO Work Phone: 01-09-2021 11:30-0400 Systolic blood pressure 144 mm[Hg] Antonino Gustafson Work Phone: [facility] 250 DO Work Phone: 01-09-2021 10:54-0400 Body height 162.56 cm Antonino Gustafson Work Phone: [facility] 250 DO Work Phone: 01-09-2021 10:54-0400 Body mass index (BMI) [Ratio] 24.2 kg/m2 Antonino Gustafson Work Phone: [facility] 250 DO Work Phone: 01-09-2021 10:54-0400 Body surface area Derived from formula 1.69 m2 Antonino Gustafson Work Phone: [facility] 250 DO Work Phone: 01-09-2021 10:54-0400 Body weight 63.96 kg Antonino Gustafson Work Phone: [facility] 250 DO Work Phone: 01-09-2021 10:54-0400 Diastolic blood pressure 74 mm[Hg] Antonino Gustafson Work Phone: [facility] DO Work Phone: 01-09-2021 10:54-0400 Heart rate 60 /min Antonino Gustafson Work Phone: [facility] 250 DO Work Phone: 01-09-2021 10:54-0400 Systolic blood pressure 156 mm[Hg] Antonino Gustafson Work Phone: [facility] 250 DO Work Phone: Encounters Encounter Date Encounter Type Care Provider Facility Start: 01-03-2025 End: 01-03-2025 ambulatory Antonino Gustafson MD Work Phone: [facility] Work Phone: Start: 01-03-2025 End: 01-03-2025 Patient encounter procedure Nancie Leigh [facility] Work Phone: Start: 11-21-2024 End: 11-21-2024 ambulatory [facility] Start: 11-21-2024 End: 11-21-2024 Office outpatient visit 10 minutes Michael Ramos DO Work Phone: [facility] Comment on above: Essential hypertensi on; Former smoker; BMI 22.0-22.9, adult Start: 09-27-2024 End: 09-27-2024 ambulatory [facility] Start: 09-27-2024 End: 09-27-2024 Office outpatient visit 15 minutes Michael Ramos DO Work Phone: [facility] Comment on above: ASHD (arteriosclerot ic heart disease); Paroxysmal atrial fibrillation (Multi); Renal artery 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; 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; Essential hypertension; BMI 23.0-23.9, adult; Former smoker Start: 09-25-2024 Patient encounter procedure Antonino Gustafson MD Work Phone: [facility] Start: 09-25-2024 End: 09-25-2024 ambulatory Antonino Gustafson MD Work Phone: [facility] Work Phone: Start: 09-25-2024 End: 09-25-2024 Patient encounter procedure Antonino Gustafson MD -[facility] Work Phone: Start: 09-20-2024 End: 09-20-2024 ambulatory Antonino Gustafson MD Work Phone: [facility] Work Phone: Start: 09-20-2024 End: 09-20-2024 Patient encounter procedure Nancie Leigh DO -[facility] Work Phone: Start: 09-04-2024 End: 09-04-2024 Bamboo flowsheet Palma Rodriguez DO Work Phone: [facility] Start: 09-04-2024 End: 09-04-2024 Bamboo flowsheet Palma D Zahler DO Work Phone: [facility] Start: 09-04-2024 End: 09-04-2024 ambulatory PALMA RODRIGUEZ Not Available Start: 08-29-2024 End: 08-29-2024 ambulatory Antonino Gustafson MD Work Phone: [facility] Work Phone: Start: 08-29-2024 End: 08-29-2024 Patient encounter procedure Antonino Gustafson MD Work Phone: [facility] Work Phone: Start: 08-16-2024 Non-patient / Non-visit Antonino Gustasfon MD Work Phone: [facility] Work Phone: Start: 08-07-2024 End: 08-07-2024 ambulatory Antonino Gustafson MD Work Phone: [facility] Work Phone: Start: 08-07-2024 End: 08-07-2024 Patient encounter procedure Antonino Gustafson MD Work Phone: [facility] Work Phone: Start: 08-03-2024 Non-patient / Non-visit Antonino Gustafson MD Work Phone: [facility] Work Phone: Start: 08-02-2024 Non-patient / Non-visit Antonino Gustafson MD Work Phone: [facility] Work Phone: Start: 07-26-2024 Non-patient / Non-visit Antonino Gustafson MD Work Phone: [facility] Work Phone: Start: 07-25-2024 End: 08-02-2024 Evaluation and management of inpatient Antonino Gustafson MD Work Phone: [facility] [place] [facility] Work Phone: Start: 07-24-2024 Non-patient / Non-visit Antonino Gustafson MD Work Phone: [facility] Work Phone: Start: 07-24-2024 Non-patient / Non-visit Antonino Gustafson MD Work Phone: [facility] Work Phone: Start: 07-23-2024 Non-patient / Non-visit Antonino Gustafson MD Work Phone: [facility] Work Phone: Start: 07-22-2024 End: 07-25-2024 Evaluation and management of inpatient Antonino Gustafson MD Work Phone: [facility] [place] [facility] Work Phone: Start: 06-29-2024 End: 06-29-2024 Clinisync Result Encounter Amanda Asa [employer] Work Phone: [facility] Unsolicited Start: 06-29-2024 End: 06-29-2024 Clinisync Result Encounter Amanda Asa [employer] Work Phone: [facility] Unsolicited Start: 06-29-2024 Non-patient / Non-visit Antonino Gustafson MD Work Phone: [facility] Work Phone: Start: 06-26-2024 End: 06-26-2024 Telephone encounter Marina Burt [employer] Work Phone: [facility] Start: 05-25-2024 End: 05-25-2024 Office outpatient visit 15 minutes Michael Ramos DO Work Phone: [facility] Comment on above: Accelerated hyperten alvaro Start: 05-25-2024 End: 05-25-2024 ambulatory [facility] Start: 05-22-2024 End: 05-22-2024 ambulatory [facility] Work Phone: Start: 05-22-2024 End: 05-22-2024 Patient encounter procedure [facility] Work Phone: Start: 04-05-2024 End: 04-05-2024 [facility] Work Phone: [facility] Comment on above: Accelerated hyperten alvaro; Cerebrovascular accident (CVA), unspecified mechanism (Multi); 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; Paroxysmal atrial fibrillation (Multi); ASHD (arteriosclerotic heart disease); Mixed hyperlipidemia; BMI 22.0-22.9, adult; Former smoker; TATI inhibitor intolerance; Statin intolerance Start: 04-05-2024 End: 04-05-2024 ambulatory [facility] Start: 04-04-2024 End: 04-04-2024 Bamboo flowsheet Amanda Bray [employer] Work Phone: [facility] Start: 04-04-2024 End: 04-04-2024 Bamboo flowsheet Amanda Bray [employer] Work Phone: [facility] Start: 04-04-2024 End: 04-04-2024 Office outpatient visit 25 minutes Amanda Bray [employer] Work Phone: [facility] Comment on above: Ischemic stroke (CMS /HCC) (Primary Dx); Visual field defect; Hypertension, unspecified type (CMS/HCC); Encounter for medication monitoring; Paroxysmal atrial fibrillation (CMS/HCC); Altered mental status, unspecified altered mental status type Start: 04-04-2024 End: 04-04-2024 ambulatory AMANDA BRAY Not Available Start: 03-28-2024 End: 03-28-2024 Patient encounter procedure [facility] Physician [facility] Work Phone: Start: 03-21-2024 Non-patient / Non-visit [facility] Physician [facility] Work Phone: Start: 03-14-2024 End: 03-14-2024 [facility] [facility] Work Phone: Start: 03-08-2024 Non-patient / Non-visit [facility] Physician [facility] Work Phone: Start: 03-06-2024 End: 03-07-2024 ambulatory Willie Kearney Facility[facility] Start: 03-06-2024 Emergency department patient visit Rolando Zarco Facility[facility] Start: 03-06-2024 End: 03-07-2024 Observation Willie HornMalick Kearney [facility] Start: 03-06-2024 End: 03-06-2024 Bamboo flowsheet Palma oRdriguez DO Work Phone: [facility] Start: 03-06-2024 End: 03-06-2024 Bamboo flowsheet Palma Rodriguez DO Work Phone: [facility] Start: 03-06-2024 End: 03-06-2024 ambulatory PALMA RODRIGUEZ Not Available Start: 02-17-2024 End: 02-17-2024 Patient encounter procedure [facility] Physician [facility] Work Phone: Start: 02-17-2024 End: 02-17-2024 ambulatory Antonino Gustafson [facility] Work Phone: Start: 02-07-2024 Non-patient / Non-visit [facility] Physician [facility] Work Phone: Start: 02-05-2024 Non-patient / Non-visit [facility] Physician [facility] Work Phone: Start: 01-25-2024 End: 01-25-2024 ambulatory [facility] Start: 01-18-2024 End: 01-18-2024 Office outpatient visit 25 minutes [facility] DO Work Phone: [facility] Comment on above: Accelerated hyperten alvaro; ASHD (arteriosclerotic heart disease); Paroxysmal atrial fibrillation (Multi); Former smoker; Body mass index (BMI) 23.0-23.9, adult Start: 01-18-2024 End: 01-18-2024 ambulatory [facility] Start: 12-22-2023 End: 12-22-2023 ambulatory [facility] Work Phone: Start: 12-22-2023 End: 12-22-2023 Patient encounter procedure [facility] Physician [facility] José Antonio Work Phone: Start: 12-17-2023 End: 12-17-2023 ambulatory [facility] Work Phone: Start: 12-17-2023 End: 12-17-2023 Patient encounter procedure [facility] Physician [facility] Work Phone: Start: 08-05-2023 End: 08-05-2023 ambulatory [facility] Work Phone: Start: 08-05-2023 End: 08-05-2023 Patient encounter procedure [facility] Physician [facility] José Antonio Work Phone: Start: 07-27-2023 Non-patient / Non-visit [facility] Physician [facility] Work Phone: Start: 05-18-2023 End: 05-18-2023 Office outpatient visit 25 minutes [facility] Work Phone: [facility] Comment on above: Paroxysmal atrial fi brillation (CMS/HCC); Accelerated hypertension; Mixed hyperlipidemia; Stage 3b chronic kidney disease (CMS/HCC) Start: 03-10-2023 End: 03-10-2023 Office outpatient visit 15 minutes Meera Avalos [employer] Work Phone: [facility] Comment on above: Paroxysmal atrial fi brillation (CMS/HCC) (Primary Dx); Chest pain, unspecified type; Accelerated hypertension; Stage 3a chronic kidney disease (CMS/HCC); BMI 22.0-22.9, adult Start: 02-24-2023 End: 02-24-2023 ambulatory Antonino Gustafson Other [facility] Other Start: 02-24-2023 Telephone encounter Antonino Gustafson [facility] Start: 02-02-2023 End: 02-02-2023 ambulatory Antonino Gustafson Other [facility] Other Start: 02-02-2023 Transitional care michaela winter srvc 14 day discharge Antonino Gustafson [facility] Start: 01-28-2023 End: 01-28-2023 ambulatory Antonino Gustafson Other [facility] Other Start: 01-28-2023 Telephone encounter Antonino Gustafson [facility] Start: 01-28-2023 End: 01-29-2023 Evaluation and management of inpatient MD Antonino Gustafson Work Phone: [facility] Work Phone: Start: 01-27-2023 Evaluation and management of inpatient MD Antonino Gustafson Work Phone: [facility] [place] [facility] Work Phone: Start: 01-27-2023 observation encounter MD Preethi Gustafson Work Phone: [facility] Work Phone: Start: 01-04-2023 End: 01-04-2023 ambulatory Liliya Bhavna Other [facility] Other Start: 01-04-2023 Office outpatient vi sit 25 minutes Liliya Bhavna [facility] Start: 11-03-2022 End: 11-03-2022 ambulatory Antonino Gustafson Other [facility] Other Start: 11-03-2022 Office outpatient vi sit 15 minutes Antonino Gustafson [facility] Start: 10-09-2022 Rx Renewal Antonino Gustafson Work Phone: [facility] 250 DO Work Phone: Start: 06-11-2022 End: 06-11-2022 ambulatory Liliya Bhavna Other [employer] Other Start: 06-11-2022 Office outpatient vi sit 15 minutes Liliya Bhavna [facility] José Antonio Start: 06-03-2022 End: 06-04-[address] ANTONINO GUSTAFSON Facility:[facility] Start: 03-18-2022 Office outpatient vi sit 10 minutes Antonino Gustafson Work Phone: [facility] DO Work Phone: Start: 03-18-[address] Antonino Gustafson Facility: Start: 02-09-2022 Adult health examination Preethi Gustafson Other [facility] Other Start: 02-05-2022 End: 02-06-[address] MICHAEL RAMOS Facility:[facility] Start: 01-15-[address] Michael Ramos Facility: Start: 01-15-2022 Office outpatient vi sit 25 minutes Antonino Gustafson Work Phone: [facility] DO Work Phone: Start: 12-17-2021 Rx Renewal Antonino Gustafson Work Phone: [facility] [address] DO Work Phone: Start: 12-08-2021 End: 12-08-2021 ambulatory Liliya Bhavna Other [employer] Other Start: 12-08-2021 Office outpatient vi sit 25 minutes Liliya Bhavna [facility] José Antonio Start: 12-04-2021 End: 12-05-2021 ambulatory LILIYA BHAVNA Facility:[facility] Start: 10-31-2021 End: 10-31-2021 Emergency department patient visit MD Antonino Gustafson Work Phone: [facility] Start: 09-16-2021 Rx Renewal Antonino Gustafson Work Phone: [facility] [address] DO Work Phone: Start: 05-29-2021 End: 05-29-2021 ambulatory Liliya Bhavna Other [facility] Other Start: 05-29-2021 Office outpatient vi sit 15 minutes Liliya Bahvna [facility] José Antonio Start: 01-22-2021 Rx Renewal Antonino Gustafson Work Phone: [facility] [address] [place] Work Phone: Start: 01-09-2021 Office outpatient vi sit 15 minutes Antonino Gutsafson Work Phone: [facility] 250 DO Work Phone: Start: 01-09-2021 Patient encounter procedure Antonino Gustafson Work Phone: [facility] DO Work Phone: Procedures Date Procedure [...] 06-29-2024 ALL LIPID PROFILE (FASTING) Amanda Bray [employer] Work Phone: Start: 06-29-2024 [facility] LIVER PANEL Amanda Bray [employer] Work Phone: Start: 03-06-2024 Visual field xm [...] procedure 04/03/2025 2:00 PM EST Office Visit [address] [place] [address] Meera Avalos, [employer] [address] [facility] [address] [place] [address] [facility] Start: 11-27-2024 Influenza vaccination Influenza Vacc ine (#1) [facility] Start: 11-21-2024 End: 11-21-2024 Patient encounter procedure 11/21/2024 10:30 AM EDT Office Visit [address] [place] [address] Michael Ramos, DO [address] [facility] [address] [place] [address] [facility] Start: 11-02-2024 DTaP/Tdap/Td Vaccine s (2 - Tdap) DTaP/Tdap/Td Vaccines (2 - Tdap) [facility] Start: 09-27-2024 End: 09-27-2024 Patient encounter procedure 09/27/2024 10:20 AM EDT Office Visit [address] [place] [address] Michael Ramos, DO [address] [facility] [address] [place] [address] [facility] Start: 09-20-2024 End: 09-20-2024 Patient encounter procedure 09/20/2024 10:20 AM EDT Office Visit [address] [place] [address] Michael Ramos, DO [address] [facility] [address] [place] [address] [facility] Start: 09-04-2024 End: 09-04-2024 Patient encounter procedure 09/04/2024 1:45 PM EDT Office Visit [facility] [address] [place] [address] Palma Rodriguez DO [address] [place] [address] [facility] Start: 08-02-2024 [facility] Start: 07-25-2024 Hospital admission [facility] Start: 07-25-2024 Referral to clinical county nurse [facility] Start: 07-25-2024 [facility] Start: 07-25-2024 [facility] Start: 07-24-2024 Referral to palliati ve care physician [facility] Start: 07-24-2024 Referral to rehabilitation physician [facility] Start: 07-23-2024 Bacteria identified in Blood by Culture Blood Culture [facility] Start: 07-23-2024 End: 07-23-2024 [facility] Start: 07-23-2024 End: 07-23-2024 [facility] Start: 07-23-2024 Referral to neurologist [facility] Start: 07-23-2024 MRI of head MR head/brain wo [facility] Start: 07-22-2024 Hospital admission [facility] Start: 07-22-2024 Urine culture [facility] Start: 07-22-2024 CT angiography of head [facility] Start: 07-22-2024 CT angiography of ne ck vessels [facility] Start: 07-22-2024 CT Head WO contrast [facility] Start: 07-22-2024 CT of head without contrast CT head stroke alert wo con [facility] Start: 07-22-2024 Telemedicine consult ation with patient [facility] Start: 07-22-2024 Bacteria identified in Urine by Culture Urine Culture [facility] Start: 06-27-2024 End: 06-27-2024 Patient encounter procedure 06/27/2024 2:20 PM EDT Office Visit [facility] [address] [place] [address] Amanda Bray NP [address] [facility] [place] [address] [facility] Start: 04-05-2024 End: 04-05-2024 Patient encounter procedure 04/05/2024 10:30 AM EST Office Visit [facility] [address] [facility] [address] [place] [address] Michael Ramos DO [address] [facility] [address] [place] [address] [facility] Start: 04-04-2024 End: 04-04-2025 Hepatic function 2000 panel - Serum or Plasma Hepatic function panel Lab Routine Encounter for medication monitoring Expected: 04/04/2024 (Approximate), Expires: 04/04/2025 [facility] Comment on above: Expected: 04/04/2024 (Approximate), Expires: 04/04/2025 Start: 04-04-2024 End: 04-04-2025 Lipid 1996 panel - Serum or Plasma Lipid panel Lab Routine Encounter for medication monitoring Expected: 04/04/2024 (Approximate), Expires: 04/04/2025 [facility] Work Phone: Comment on above: Expected: 04/04/2024 (Approximate), Expires: 04/04/2025 Start: 04-04-2024 End: 04-04-2024 Patient encounter procedure 04/04/2024 1:40 PM EST Office Visit [facility] [address] [address] [place] [phone] Amanda Bray NP [address] [address] [place] [address] Arrived [facility] Comment on above: Arrived Start: 03-06-2024 End: 03-06-2024 Patient encounter procedure 03/06/2024 1:00 PM EST Office Visit [facility] [address] [place] [address] Zahler, Palma D, DO [address] [place] [address] Arrived [facility] Comment on above: Arrived Start: 01-24-2024 End: 01-24-2024 Professional / ancillary services management 01/24/2024 10:00 AM EDT Ancillary Procedure [facility] [address] [facility] [address] [place] [address] [facility] Start: 01-18-2024 End: 01-17-2025 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 Cardiac Services Routine Paroxysmal atrial fibrillation (Multi) Expected: 01/18/2024 (Approximate), Expires: 01/17/2025 [facility] Service Area Work Phone: Comment on above: Expected: 01/18/2024 (Approximate), Expires: 01/17/2025 Start: 01-18-2024 End: 01-18-2024 Patient encounter procedure 01/18/2024 10:40 AM EDT Office Visit [address] [place] [address] Michael Ramos DO [address] [facility] [address] [place] [address] [facility] Start: 11-28-2023 COVID-19 Vaccine ( season) COVID-19 Vaccine ( season) [facility] Start: 11-28-2023 Influenza vaccination Influenza Vacc ine (#1) [facility] Start: 11-17-2023 End: 11-17-2023 Patient encounter procedure 11/17/2023 10:00 AM EDT Office Visit [facility] [address] [facility] [address] [place] [address] Meera Avalos, [employer] [address] [facility] [address] [place] [address] [facility] Start: 05-18-2023 End: 05-18-2023 Patient encounter procedure 05/18/2023 11:00 AM EST Office Visit [facility] [address] [place] [address] Michael Ramos, DO [address] [place] [address] [facility] Start: 04-06-2023 End: 04-06-2023 Patient encounter procedure 04/06/2023 10:00 AM EST Procedure Visit [facility] [address] [place] [id number] [facility] Start: 03-10-2023 End: 03-10-2024 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 Cardiac Services Routine Paroxysmal atrial fibrillation (CMS/HCC) Expected: 03/10/2023 (Approximate), Expires: 03/10/2024 [facility] Service Area Work Phone: Comment on above: Expected: 03/10/2023 (Approximate), Expires: 03/10/2024 Start: 01-29-2023 [facility] Start: 01-27-2023 Hospital admission [facility] Start: 01-27-2023 Referral to grain origination specialist [facility] Start: 01-14-2023 FUV, Provider: Michael Ramos, Status: Pen, Time: 10:00 AM FUV, Provider: Michael Ramos, Status: Pen, Time: 10:00 AM [facility] 250 DO Work Phone: Start: 11-27-2022 COVID-19 Vaccine ( season) COVID-19 Vaccine ( season) [facility] Start: 11-27-2022 Influenza vaccination Influenza Vacc ine (#1) [facility] Start: 03-18-2022 FUV, Provider: Meera Cha, Status: Pen, Time: 11:30 AM FUV, Provider: Meera Cha, Status: Pen, Time: 11:30 AM [facility] 250 DO Work Phone: Start: 01-15-2022 FUV, Provider: Michael Ramos, Status: Pen, Time: 10:00 AM FUV, Provider: Michael Ramos, Status: Pen, Time: 10:00 AM -[facility] 250 DO Work Phone: Start: 09-18-2021 Medicare Annual Well ness Visit Medicare Annual Wellness Visit (AWV) [facility] Start: 05-08-2021 COVID-19 Vaccine (4 - Moderna series) COVID-19 Vaccine (4 - Moderna series) [facility] Start: 11-18-2014 RSV High Risk: (Elde rly (60+) or Population) (1 - 1-dose 75+ series) RSV High Risk: (Elderly (60+) or Population) (1 - 1-dose 75+ series) [facility] Start: 11-18-2004 Screening for osteoporosis Bone Density Scan [facility] Start: 11-18-1989 Zoster Vaccines (1 of 2) Zoste r Vaccines (1 of 2) [facility] Start: 11-18-1958 Pneumococcal vaccination Pneum ococcal Vaccine (1 of 2 - PCV) [facility] Start: 11-18-1958 Urine screening for protein CKD: Urine Protein Screening [facility] Start: 11-18-1957 Diabetes mellitus screening Diabetes Screening [facility] Start: 11-18-1945 Pneumococcal Vaccine : 65+ Years (1 - PCV) Pneumococcal Vaccine: 65+ Years (1 - PCV) [facility] Start: 11-18-1945 Pneumococcal Vaccine : 65+ Years (1 of 2 - PCV) Pneumococcal Vaccine: 65+ Years (1 of 2 - PCV) [facility] Start: 1939 Annual wellness visit Medicare Initial Physical (IPPE) [facility] Start: 1939 Lipid panel Lipid Panel [facility] Start: 1939 Medicare Annual Well ness Visit Medicare Annual Wellness Visit (AWV) [facility] Start: 1939 Screening for osteoporosis Bone Density Scan [facility] Start: 1939 Thyroid stimulating hormone measurement TSH Level [facility] Albumin/Globulin ratio [facility] gap measurement [facility] Basophils [#/volume] in Blood by Automated count [facility] Basophils/100 leukoc ytes in Blood by Automated count [facility] Eosinophils/100 leukocytes in Blood by Automated count [facility] Erythrocyte distribu tion width [Ratio] by Automated count [facility] Erythrocytes [#/volu me] in Blood [facility] Globulin [Mass/volum e] in Serum [facility] Hematocrit [Volume Fraction] of Blood [facility] Hemoglobin [Mass/vol ume] in Blood [facility] Leukocytes [#/volume ] corrected for nucleated erythrocytes in Blood by Automated coun [facility] Leukocytes [#/volume ] in Blood [facility] Lymphocytes [#/volum e] in Blood by Automated count [facility] Lymphocytes/100 leukocytes in Blood by Automated count [facility] MCH [Entitic mass] b y Automated count [facility] MCHC [Mass/volume] b y Automated count [facility] MCV [Entitic volume] by Automated count [facility] Monocytes [#/volume] in Blood by Automated count [facility] Monocytes/100 leukoc ytes in Blood by Automated count [facility] Neutrophils [#/volum e] in Blood by Automated count [facility] Neutrophils/100 leukocytes in Blood by Automated count [facility] Nucleated erythrocyt es [Presence] in Blood by Automated count [facility] Patient Education [facility] Work Phone: Patient referral [facility] Work Phone: Platelet mean volume [Entitic volume] in Blood by Automated count [facility] Platelets [#/volume] in Blood [facility] Renal function 1999 panel - Serum or Plasma [facility] Renal function 1999 panel - Serum or Plasma [facility] Immunizations Immunization Date Immunization Notes Care Provider [facility] 03-13-2021 Moderna COVID-19 Vac cine 100 MCG/0.5ML Intramuscular Suspension Antonino Gustafson Work Phone: [facility] 250 DO Work Phone: 06-19-2020 Moderna COVID-19 Vac cine 100 MCG/0.5ML Intramuscular Suspension Antonino Rand Sj Work Phone: [facility] 250 DO Work Phone: 05-23-2020 Moderna COVID-19 Vac cine 100 MCG/0.5ML Intramuscular Suspension Antonino Giorgi Gustafson Work Phone: [place] [address] DO Work Phone: 11-02-2014 diphtheria, tetanus toxoids and acellular pertussis vaccine, 5 pertussis antigens Antonino Gustafson Work Phone: [place] [address] DO Work Phone: Payers Date Payer Category Payer Self-pay [id number] 2015 Medicare supplementa l policy (as second payer) [facility] MEDICARE SUPPLEMENT [id number] 2015 Private Health Insurance [id number] 2004 Medicare [id number] 1959 Medicare [id number] 1959 Private Health Insurance [id number] 2.16.840.1.407122.19 1939 Unknown [id number] 2.16.840.1.411011.3.579 .2.356 1939 Unknown [id number] 2.16.840.1.176906.3.579 .2.356 1939 Unknown [id number] 2.16.840.1.068814.3.579 .2.593 1939 Unknown [id number] 2.16.840.1.399430.3.579 .2.593 1939 Unknown [id number] 2.16.840.1.218274.3.579 .2.593 1939 Unknown [id number] 2.16.840.1.626885.3.579 .2.593 1939 Unknown [id number] 2.16840.1.000622.3.579 .2.727 1939 Unknown [id number] 2.16840.1.611593.3.579 .2.727 1939 Unknown [id number] 2.16840.1.491765.3.579 .2.727 1939 Unknown [id number] 2.16840.1.419598.3.579 .2.727 1939 Unknown [id number] 2.16840.1.506791.3.579 .2.727 1939 Unknown [id number] 2.16.840.1.224522.3.579 .2.727 1939 Unknown [id number] 2.16.840.1.638762.3.579 .2.727 1939 Unknown [id number] 2.16.840.1.081404.3.579 .2.727 1939 Unknown [id number] 2.16840.1.735102.3.579 .2.1259 1939 Unknown [id number] 2.16.840.1.004848.3.579 .2.1259 1939 Unknown [id number] 2.16.840.1.820352.3.579 .2.1259 1939 Unknown [id number] 2.16.840.1.424077.3.579 .2.1244 1939 Unknown [id number] 2.16.840.1.640210.3.579 .2.1244 1939 Unknown [id number] 2.16.840.1.693335.3.579 .2.1244 1939 Unknown [id number] 2.16.840.1.674977.3.579 .2.1244 1939 Unknown [id number] 2.16.840.1.298885.3.579 .2.1244 1939 Unknown [id number] 2.16.840.1.837344.3.579 .2.1244 Unknown Unknown [id number] 2.16.840.1.102723.3.579 .2.531 Unknown [id number] 2.16.840.1.574510.3.579 .2.531 Unknown [id number] 2.16.840.1.810250.3.579 .2.531 Social History Date Type Detail Facility Start: 03-10-2023 End: 09-27-2024 No alcohol use No alcohol use [place] [address] DO Work Phone: Comment on above: Coffee 2 cups daily; quit 1965; Start: 03-10-2023 End: 09-27-2024 Sex Assigned At [facility] Start: 10-31-2021 Tobacco smoking status MTIS Never smoked tobacco (finding) [facility] Start: 1940 Sex Assigned At Female F [facility] Start: 01-27-2023 End: 08-24-2024 Tobacco smoking status MTIS Ex-smoker (finding) [facility] End: 03-29-1969 History of tobacco use Current smoker [facility] Work Phone: End: 03-29-1969 History of tobacco use Cigarette Smoker [facility] Work Phone: Start: 03-10-2023 End: 01-18-2024 Tobacco use and exposure Smokeless tobacco non-user [facility] Work Phone: Start: 03-10-2023 End: 09-27-2024 Alcohol intake Lifetime non-drinker (finding) [facility] Work Phone: Start: 1940 Sex Assigned At Not on file [facility] Work Phone: Start: 02-28-2023 End: 05-25-2024 Exposure to SARS-CoV-2 (event) Not sure [facility] Start: 02-17-2024 End: 08-29-2024 Sex Female (finding) [facility] Start: 07-24-2024 Tobacco smoking status NHIS Tobacco smoking consumption unknown [facility] Tobacco smoking status No Smoking Status Entered [facility] Start: 04-04-2024 Tobacco Comment Quit smoking > 50 years ago [facility] Start: 08-02-2024 SDOH Follow up SDOH Follow up [facility] Work Phone: Start: 02-21-2022 Sex Female [facility] Goals Date Patient Goal Desired Activity /State Functional Status Date Assessment Result Facility 08-02-2024 Functional status Patient at Baseline [facility] Work Phone: 07-25-2024 Functional status Disability Sta tus Patient Not at Baseline [facility] Work Phone: 07-25-2024 Functional status Patient Not at Baseline [facility] Work Phone: 07-23-2024 Functional status Patient Not at Baseline [facility] Work Phone: 03-06-2024 Functional Status N/A [facility] 03-06-2024 Functional Status [facility] 01-29-2023 Functional status Patient at Baseline [facility] Work Phone: 01-27-2023 Functional status Patient at Baseline [facility] [facility] Work Phone: Mental Status Date Assessment Result Facility 08-02-2024 Cognitive function Cognitive Sta tus Patient at Baseline [facility] Work Phone: 07-23-2024 Cognitive function Cognitive Sta tus Patient Not at Baseline [facility] Work Phone: 01-29-2023 Cognitive function Cognitive Sta tus Patient at Baseline [facility] Work Phone: 01-27-2023 Cognitive function Cognitive Sta tus Patient at Baseline [facility] Work Phone: Clinical Notes 05-29-2021 to 11-21-2024 [...] ) Objective Physical Exam Allergies Clonidine, Methylprednisolone, Onmnqiq-hpp-rwo reductase inhibitors, Tati inhibitors, Amlodipine, Hydralazine, Lisinopril, [...] discussion and plan. documented in this encounter [facility] Work Phone: 11-21-2024 Instructions Iman Delcid [...] of your visit. documented in this encounter [facility] Work Phone: 09-27-2024 History of Present [...] normal. Judgment: Judgment normal. Allergies Clonidine, Methylprednisolone, Frfjnus-ihp-tto reductase inhibitors, Tati inhibitors, Amlodipine, Hydralazine, Lisinopril, [...] fibrillation (Multi) 3. 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 Essential [...] discussion and plan. documented in this encounter [facility] Work Phone: 09-27-2024 Instructions Daniel Castellano [...] of your visit. documented in this encounter [facility] Work Phone: 09-04-2024 Note Right Eye Reliability was good. Progression has improved. Foveal threshold was normal. Left Eye Reliability was borderline. Progression has worsened. Foveal threshold was normal. Notes Left Homonymous Hemianopsia [facility] 09-04-2024 History of Present illness Narrative Images from the original note were not included. Assessment/Plan Diagnoses and all orders for this visit: Homonymous hemianopia, left - Stable. Was worked up in at [facility] 02/2024 for CVA rule out (r/o). 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 Dry eyes - Dry Eyes OU -- Environmental changes to minimize dryness and exposure and the use of artificial tears were recommended. documented in this encounter [facility] 07-31-2024 Progress note Note Date/Time July 31, 2024 1:55pm [facility] [address] [place] [address] Physiatry(Rehab) Progress Note Signed Patient: Janelle Burt MR#: [id number] : 1940 Acct:[id number] Age/Sex: 83 / F Adm Date: 5 Loc: Room: 0Z1097-5 Type: ADM IN Attending Dr: Dev Jacobsen [...] % (Auto) 53.1 Lymph % (Auto) 28.6 Clinch % (Auto) 13.4 Eos % (Auto) 4.0 Baso % (Auto) 0.9 Nucleat RBC Rel Count 0.1 Neut # (Auto) 3.3 Lymph # (Auto) 1.8 Clinch # (Auto) 0.8 Eos # (Auto) 0.3 [...] Allergy (Unknown, Verified 07/22/24 21:12) Unknown Reaction Cqpzdyk-HZN-OsV Reductase Inhibitor (Dsagodw-Etj-Tay Reductase Inhibitor) Allergy (Unknown, Verified 07/22/24 21:12) [...] mg 07/25/24 17:25 Bisacodyl 10 Mg Supp.Rect SC 07/25/25 17:24 DAILY PRN Constipation Diclofenac Sodium 2 gm 07/27/24 05:27 Diclofenac Sodium 1% Gel 100 Gm Tube TOPICAL 07/27/25 08:59 TID PRN Pain Docusate Sodium 100 mg 07/25/24 17:25 Docusate 100 Mg Capsule PO 07/25/25 17:24 BID PRN Constipation Docusate Sodium 283 mg 07/25/24 17:25 Docusate Enema 283 Mg/5 Ml Enema SC 07/25/25 17:24 DAILY PRN Constipation Fenofibrate 48 [...] and proper breathing techniques during functional tasks. HEEL BLACKER to evaluate and treat patient?s cognition, language [...] equipment to enhance the patient's a functional lutheran Encourage deep breathing exercises and incentive spirometry [...] equipment to enhance the patient's a functional lutheran Ensure adequate nutrition and hydration Sleep: No issues Pain: Reports no major discomfort. Continue as needed Tylenol. Discharge planning: Hopefully home in 7 to 10 days. I spent 26 minutes for services, including qzst-tt-oqza encounter with the patient, discussion of the case, plan of care, and exam; and pxnhdnp-nx-uhpd activities, such as reviewing pertinent customer sales consultant documentation, recent therapynotes, laboratory and radiology studies, and discussion of case with care team including physician, nursing, case therapist, and therapists. More than 50 % of time was spent on patient/family counseling or coordination ofcare. Documented By: Dev Jacobsen MD 1355 Signed By: <Electronically signed by Dev Jacobsen MD> 07/31/24 1354 [facility] Work Phone: 1([phone]) 554-922505-05-2025 [place] [address] Physiatry(Rehab) Progress Note Signed Patient: Janelle Burt MR#: [id number] : 1940 Acct:[id number] Age/Sex: 83 / F Adm Date: 5 Loc: Room: [address] [place] [address] Type: ADM IN Attending Dr: Dev Jacobsen [...] % (Auto) 53.1 Lymph % (Auto) 28.6 Clinch % (Auto) 13.4 Eos % (Auto) 4.0 Baso % (Auto) 0.9 Nucleat RBC Rel Count 0.1 Neut # (Auto) 3.3 Lymph # (Auto) 1.8 Clinch # (Auto) 0.8 Eos # (Auto) 0.3 [...] Allergy (Unknown, Verified 07/22/24 21:12) Unknown Reaction Plvoago-WSC-QsG Reductase Inhibitor (Hrwwikv-Fhe-Qhy Reductase Inhibitor) Allergy (Unknown, Verified 07/22/24 21:12) [...] mg 07/25/24 17:25 Bisacodyl 10 Mg Supp.Rect SC 07/25/25 17:24 DAILY PRN Constipation Diclofenac Sodium 2 gm 07/27/24 05:27 Diclofenac Sodium 1% Gel 100 Gm Tube TOPICAL 07/27/25 08:59 TID PRN Pain Docusate Sodium 100 mg 07/25/24 17:25 Docusate 100 Mg Capsule PO 07/25/25 17:24 BID PRN Constipation Docusate Sodium 283 mg 07/25/24 17:25 Docusate Enema 283 Mg/5 Ml Enema SC 07/25/25 17:24 DAILY PRN Constipation Fenofibrate 48 [...] and proper breathing techniques during functional tasks. HEEL BLACKER to evaluate and treat patient?s cognition, language [...] equipment to enhance the patient's a functional lutheran Encourage deep breathing exercises and incentive spirometry [...] equipment to enhance the patient's a functional lutheran Ensure adequate nutrition and hydration Sleep: No issues Pain: Reports no major discomfort. Continue as needed Tylenol. Discharge planning: Hopefully home in 7 to 10 days. I spent 26 minutes for services, including kgbr-su-hamt encounter with the patient, discussion of the case, plan of care, and exam; and fvbncsd-ma-sqvj activities, such as reviewing pertinent customer sales consultant documentation, recent therapynotes, laboratory and radiology studies, and discussion of case with care team including physician, nursing, case therapist, and therapists. More than 50 % of time was spent on patient/family counseling or coordination ofcare. Documented By: Dev Jacobsen MD 135 Signed By: 07/31/24 9450 [facility]05-03-2025 Progress note Author Jhon Abreu [facility] Note Date/Time July 28, 2024 11:45p m [facility] [address] [place] [address] Physiatry(Rehab) Progress Note Signed Patient: Janelle Burt MR#: [id number] : 1940 Acct:[id number] Age/Sex: 83 / F Adm Date: 5 Loc: Room: 2X9483-4 Type: ADM IN Attending Dr: Dev Jacobsen [...] Allergy (Unknown, Verified 07/22/24 21:12) Unknown Reaction Iexlnwq-VMK-TxO Reductase Inhibitor (Fitrrpi-Lqj-Fse Reductase Inhibitor) Allergy (Unknown, Verified 07/22/24 21:12) [...] mg 07/25/24 17:25 Bisacodyl 10 Mg Supp.Rect SC 07/25/25 17:24 DAILY PRN Constipation Diclofenac Sodium 2 gm 07/27/24 05:27 Diclofenac Sodium 1% Gel 100 Gm Tube TOPICAL 07/27/25 08:59 TID PRN Pain Docusate Sodium 100 mg 07/25/24 17:25 Docusate 100 Mg Capsule PO 07/25/25 17:24 BID PRN Constipation Docusate Sodium 283 mg 07/25/24 17:25 Docusate Enema 283 Mg/5 Ml Enema SC 07/25/25 17:24 DAILY PRN Constipation Fenofibrate 48 [...] and proper breathing techniques during functional tasks. HEEL BLACKER to evaluate and treat patient?s cognition, language [...] equipment to enhance the patient's a functional lutheran Encourage deep breathing exercises and incentive spirometry [...] equipment to enhance the patient's a functional lutheran Ensure adequate nutrition and hydration Sleep: No issues Pain: Reports no major discomfort. Continue as needed Tylenol. Discharge planning: Hopefully home in 7 to 10 days. I spent 26 minutes for services, including qnng-dc-bnwt encounter with the patient, discussion of the case, plan of care, and exam; and wosxetg-gu-jbjc activities, such as reviewing pertinent customer sales consultant documentation, recent therapynotes, laboratory and radiology studies, and discussion of case with care team including physician, nursing, case therapist, and therapists. More than 50 % of time was spent on patient/family counseling or coordination ofcare. Documented By: Jhon Abreu MD 07/28/242342 Signed By: <Electronically signed by Jhon Abreu MD> 07/28/246 [facility] Work Phone: 1(493) 453-768805-02-2025 Consult note Author Luz Marina Gonzalez [facility] Note Date/Time July 28, 2024 9:51pm [facility] [address] [place] [address] Hospitalist Consult Note Signed Patient: Janelle Burt MR#: [id number] : 1940 Acct:[id number] Age/Sex: 83 / F Adm Date: 5 Loc: Room: [address] [place] [address] Type: ADM IN Attending Dr: Dev Jacobsen [...] negative unless noted in the HPI below [facility] Medical History Ischemic cerebral vascular accident (CVA) [...] stage 3 unspecified Cervical cancer CAD in [place] artery Bronchitis, not specified as acute or [...] Allergy (Unknown, Verified 07/22/24 21:12) Unknown Reaction Xnbgfim-JCS-MnG Reductase Inhibitor (Qfefnld-Bfg-Pji Reductase Inhibitor) Allergy (Unknown, Verified 07/22/24 21:12) [...] mg 07/25/24 17:25 Bisacodyl 10 Mg Supp.Rect SC 07/25/25 17:24 DAILY PRN Constipation Docusate Sodium 100 mg 07/25/24 17:25 Docusate 100 Mg Capsule PO 07/25/25 17:24 BID PRN Constipation Docusate Sodium 283 mg 07/25/24 17:25 Docusate Enema 283 Mg/5 Ml Enema SC 07/25/25 17:24 DAILY PRN Constipation Fenofibrate 48 [...] % (Auto) 57.6, Lymph % (Auto) 27.9, Clinch % (Auto) 11.3, Eos % (Auto) 2.3, Baso % (Auto) 0.9, Nucleat RBC Rel Count 0.1, Neut # (Auto) 3.9, Lymph # (Auto) 1.9, Clinch # (Auto) 0.8, Eos # (Auto) 0.2, [...] Documented By: Luz Marina Gonzalez APRN 07/26/24 1625 Signed By: <Electronically signed by AIMEE Gonzalez> 07/26/24 1656 <Electronically signed by Jon Felder MD> 07/28/24 2157 [facility] Work Phone: 1(403) 337-647105-02-2025 [place] [address] Physiatry(Rehab) Progress Note Signed Patient: Janelle Burt MR#: [id number] : 1940 Acct:[id number] Age/Sex: 83 / F Adm Date: 5 Loc: Room: [address] [place] [address] Type: ADM IN Attending Dr: Dev Jacobsen [...] Allergy (Unknown, Verified 07/22/24 21:12) Unknown Reaction Nijioam-GIG-AjH Reductase Inhibitor (Wyvkxjk-Gxu-Mcg Reductase Inhibitor) Allergy (Unknown, Verified 07/22/24 21:12) [...] mg 07/25/24 17:25 Bisacodyl 10 Mg Supp.Rect SC 07/25/25 17:24 DAILY PRN Constipation Diclofenac Sodium 2 gm 07/27/24 05:27 Diclofenac Sodium 1% Gel 100 Gm Tube TOPICAL 07/27/25 08:59 TID PRN Pain Docusate Sodium 100 mg 07/25/24 17:25 Docusate 100 Mg Capsule PO 07/25/25 17:24 BID PRN Constipation Docusate Sodium 283 mg 07/25/24 17:25 Docusate Enema 283 Mg/5 Ml Enema SC 07/25/25 17:24 DAILY PRN Constipation Fenofibrate 48 [...] Tablet PO 07/26/25 06:29 Not Given DAILY.0630 [facility] Metoprolol Tartrate 25 mg 07/25/24 21:00 07/28/24 [...] and proper breathing techniques during functional tasks. HEEL BLACKER to evaluate and treat patient?s cognition, language [...] equipment to enhance the patient's a functional lutheran Encourage deep breathing exercises and incentive spirometry [...] equipment to enhance the patient's a functional lutheran Ensure adequate nutrition and hydration Sleep: No issues Pain: Reports no major discomfort. Continue as needed Tylenol. Discharge planning: Hopefully home in 7 to 10 days. I spent 26 minutes for services, including jzlq-me-mifq encounter with the patient, discussion of the case, plan of care, and exam; and viyjqtu-ru-ousr activities, such as reviewing pertinent customer sales consultant documentation, recent therapynotes, laboratory and radiology studies, and discussion of case with care team including physician, nursing, case therapist, and therapists. More than 50 % of time was spent on patient/family counseling or coordination ofcare. Documented By: Jhon Abreu MD 07/28/242342 Signed By: 07/28/24 2345 [facility]05-02-2025 [place] [address] Hospitalist Consult Note Signed Patient: Janelle Burt MR#: [id number] : 1940 Acct:[id number] Age/Sex: 83 / F Adm Date: 5 Loc: Room: [address] [place] [address] Type: ADM IN Attending Dr: Dev Jacobsen MD Copies to: MD Luz Marina Kimble APRN Marcia E Braun, MD Mohamad Akil, MD~ HPI DATE OF CONSULTATION: 07/26/24 REQUESTING PROVIDER: eDv Jacobsen Consult Narrative Reason for Consult: Hypertension [...] negative unless noted in the HPI below [facility] Medical History Ischemic cerebral vascular accident (CVA) [...] stage 3 unspecified Cervical cancer CAD in [place] artery Bronchitis, not specified as acute or [...] Allergy (Unknown, Verified 07/22/24 21:12) Unknown Reaction Aefvbar-XFG-TsI Reductase Inhibitor (Osobkay-Yvy-Afu Reductase Inhibitor) Allergy (Unknown, Verified 07/22/24 21:12) [...] mg 07/25/24 17:25 Bisacodyl 10 Mg Supp.Rect SC 07/25/25 17:24 DAILY PRN Constipation Docusate Sodium 100 mg 07/25/24 17:25 Docusate 100 Mg Capsule PO 07/25/25 17:24 BID PRN Constipation Docusate Sodium 283 mg 07/25/24 17:25 Docusate Enema 283 Mg/5 Ml Enema SC 07/25/25 17:24 DAILY PRN Constipation Fenofibrate 48 [...] Neut % (Auto) 57.6, Lymph % (Auto) 27.9,Clinch % (Auto) 11.3, Eos % (Auto) 2.3, Baso % (Auto) 0.9, Nucleat RBC Rel Count 0.1, Neut # (Auto) 3.9, Lymph # (Auto) 1.9, Clinch # (Auto) 0.8, Eos # (Auto) 0.2, [...] 07/26/24 1629 Signed By: 07/26/24 1659 07/28/24 2272 [facility]04-30-2025 History and physical note Author Enedina Cain [facility] Note Date/Time July 26, 2024 12: 42pm [facility] [address] [place] [address] Physiatry (Rehab) H&P Signed Patient: Janelle Burt MR#: [id number] : 1940 Acct:[id number] Age/Sex: 83 / F Adm Date: 5 Loc: Room: [address] [place] [address] Type: ADM IN Attending Dr: Dev Jacobsen [...] assistive device use prior to this admission. [facility] Medical History Ischemic cerebral vascular accident (CVA) [...] stage 3 unspecified Cervical cancer CAD in [place] artery Bronchitis, not specified as acute or [...] Allergy (Unknown, Verified 07/22/24 21:12) Unknown Reaction Larjbjr-HGT-OqC Reductase Inhibitor (Wjnbdoe-Wcr-Mqn Reductase Inhibitor) Allergy (Unknown, Verified 07/22/24 21:12) [...] Bisacodyl (Bisacodyl 10 Mg Supp.Rect) 10 mg SC DAILY PRN PRN Reason: Constipation Stop: 07/25/25 17:24 Docusate Sodium (Docusate 100 Mg Capsule) 100 mg PO BID PRN PRN Reason: Constipation Stop: 07/25/25 17:24 Docusate Sodium (Docusate Enema 283 Mg/5 Ml Enema) 283 mg SC DAILY PRN PRN Reason: Constipation Stop: 07/25/25 17:24 Fenofibrate (Fenofibrate Nanocrystallized 48 Mg Tablet) 48 mg PO DAILY [place] Stop: 07/26/25 08:59 Last Admin: 07/26/24 08:46 Dose: 48 mg Lactulose (Lactulose 20 Gm/30 Ml Udc) 30 gm PO DAILY PRN PRN Reason: Constipation Stop: 07/25/25 17:24 Levetiracetam (Levetiracetam 500 Mg Tablet) 500 mg PO BID [facility] Stop: 07/25/25 20:59 Last Admin: 07/26/24 08:47 Dose: 500 mg Levofloxacin (Levofloxacin 250 Mg Tablet) 250 mg PO DAILY [facility] Stop: 07/27/24 09:01 Last Admin: 07/26/24 08:46 Dose: 250 mg Levothyroxine Sodium (Levothyroxine 100 Mcg Tablet) 100 mcg PO DAILY.0630 [facility] Stop: 07/26/25 06:29 Last Admin: 07/26/24 05:38 [...] % (Auto) 57.6 Lymph % (Auto) 27.9 Clinch % (Auto) 11.3 Eos % (Auto) 2.3 Baso % (Auto) 0.9 Nucleat RBC Rel Count 0.1 Neut # (Auto) 3.9 Lymph # (Auto) 1.9 Clinch # (Auto) 0.8 Eos # (Auto) 0.2 [...] mobility Anticipated interventions: Physician management, PT, OT, HEEL BLACKER, , Dietitian, RehabNursing, Case management 2. Therapy Functional Outcome/Goal: Anticipate independent transfers Anticipated interventions: Physician management, PT, OT, HEEL BLACKER, Case management, Dietitian, Rehab Nursing 3. Therapy Functional Outcome/Goal: Anticipate independent ambulation Anticipated interventions: Physician management, PT, OT, HEEL BLACKER Case management, Dietitian, Rehab Nursing 4.Therapy Functional Outcome/Goal: Anticipate independent self-care Anticipated interventions: Physician management, PT, OT, HEEL BLACKER, Case management, Dietitian, Rehab Nursing 5.Therapy Functional Outcome/Goal: Anticipate independent functional communcation and swallowing Anticipated interventions: Physician management, PT, OT, HEEL BLACKER, Case management, Dietitian, Rehab Nursing Required Therapy [...] additional therapy on as needed basis. Comments: HEEL BLACKER to evaluate and treat patient?s cognition, language and communication skills, assess swallow function. Other: Dietitian, Rehab nursing, Wound, P&O, Neuropsychology as needed RATIONALE FOR IRF ADMISSION: Patient has both medical and functional complexities that require 24 hour daily monitoring and intervention from Pool Lifeguard as well as other consulting physicians including internal medicine as well as 24 hour daily thrasher feeder nursing - for medical safe / optimal management. Patient requires interdisciplinary therapy team rehabilitation care including OT, PT, HEEL BLACKER, SW, Psychology, Rehab Nursing, requires and can [...] and proper breathing techniques during functional tasks. HEEL BLACKER to evaluate and treat patient?s cognition, language [...] equipment to enhance the patient's a functional lutheran Encourage deep breathing exercises and incentive spirometry [...] equipment to enhance the patient's a functional lutheran Ensure adequate nutrition and hydration Sleep: No issues Pain: Reports no major discomfort. Continue as needed Tylenol. Discharge planning: Hopefully home in 7 to 10 days. I spent 46 minutes for services, including pdwq-oh-lpyn encounter with the patient, discussion of the case, plan of care, and exam; and uhjpwav-cn-vqub activities, such as reviewing pertinent customer sales consultant documentation, recent therapynotes, laboratory and radiology studies, and discussion of case with care team including physician, nursing, case therapist, and therapists. More than 50 % of time was spent on patient/family counseling or coordination ofcare. I completed a substantive portion of this encounter, the medical decision makingportion of this note in its entirety, including Allied health note review, nursing note review, customer sales consultant note review, discussion with nursing and case management, and more than 50% of my time was spent on counseling and coordination of care, time spent 60 minutes Patient was personally seen by me, Dr. Abreu, on the day of encounter, within 24hours of rehab admission, reviewed the history and the relevant portions of the chart, including current orders, allied health and customer sales consultant notes, labs/imaging and performed dozier elements of exam and I formulated the plan of care and facilitated the medical decision making. Documented By: Enedina Cain APRN 07/26/24 1 104 Signed By: <Electronically signed by AIMEE Cain> 07/26/24 1135 <Electronically signed by Jhon Abreu MD> 07/26/24 1242 [facility] Work Phone: 1(702) 905-555104-30-2025 [place] [address] Physiatry (Rehab) H&P Signed Patient: Janelle Burt MR#: [id number] : 1940 Acct:[id number] Age/Sex: 83 / F Adm Date: 5 Loc: Room: [address] [place] [address] Type: ADM IN Attending Dr: Dev Jacobsen [...] assistive device use prior to this admission. [facility] Medical History Ischemic cerebral vascular accident (CVA) [...] stage 3 unspecified Cervical cancer CAD in [place] artery Bronchitis, not specified as acute or [...] Allergy (Unknown, Verified 07/22/24 21:12) Unknown Reaction Xecdvov-ECT-AiF Reductase Inhibitor (Jspkfku-Mjs-Ogg Reductase Inhibitor) Allergy (Unknown, Verified 07/22/24 21:12) [...] Bisacodyl (Bisacodyl 10 Mg Supp.Rect) 10 mg SC DAILY PRN PRN Reason: Constipation Stop: 07/25/25 17:24 Docusate Sodium (Docusate 100 Mg Capsule) 100 mg PO BID PRN PRN Reason: Constipation Stop: 07/25/25 17:24 Docusate Sodium (Docusate Enema 283 Mg/5 Ml Enema) 283 mg SC DAILY PRN PRN Reason: Constipation Stop: 07/25/25 [...] 100 Mcg Tablet) 100 mcg PO DAILY.629 [facility] Stop: 07/26/25 06:29 Last Admin: 07/26/24 05:38 Dose: 100 mcg Metoprolol Tartrate (Metoprolol Tartrate 25 Mg Tablet) 25 mg PO BID [facility] Stop: 07/25/25 20:59 Last Admin: 07/26/24 08:47 [...] 10 Ml Syringe) 10 ml IV-PUSH BID [facility] Stop: 07/26/25 08:59 Last Admin: 07/26/24 08:47 Dose: 10 ml Valsartan (Valsartan 160 Mg Tablet) 160 mg PO DAILY [facility] Stop: 07/26/25 08:59 Last Admin: 07/26/24 08:46 [...] % (Auto) 57.6 Lymph % (Auto) 27.9 Clinch % (Auto) 11.3 Eos % (Auto) 2.3 Baso % (Auto) 0.9 Nucleat RBC Rel Count 0.1 Neut # (Auto) 3.9 Lymph # (Auto) 1.9 Clinch # (Auto) 0.8 Eos # (Auto) 0.2 [...] mobility Anticipated interventions: Physician management, PT, OT, HEEL BLACKER, , Dietitian, RehabNursing, Case management 2. Therapy Functional Outcome/Goal: Anticipate independent transfers Anticipated interventions: Physician management, PT, OT, HEEL BLACKER, Case management, Dietitian, Rehab Nursing 3. Therapy Functional Outcome/Goal: Anticipate independent ambulation Anticipated interventions: Physician management, PT, OT, HEEL BLACKER Case management, Dietitian, Rehab Nursing 4.Therapy Functional Outcome/Goal: Anticipate independent self-care Anticipated interventions: Physician management, PT, OT, HEEL BLACKER, Case management, Dietitian, Rehab Nursing 5.Therapy Functional Outcome/Goal: Anticipate independent functional communcation and swallowing Anticipated interventions: Physician management, PT, OT, HEEL BLACKER, Case management, Dietitian, Rehab Nursing Required Therapy [...] additional therapy on as needed basis. Comments: HEEL BLACKER to evaluate and treat patient?s cognition, language and communication skills, assess swallow function. Other: Dietitian, Rehab nursing, Wound, P&O, Neuropsychology as needed RATIONALE FOR IRF ADMISSION: Patient has both medical and functional complexities that require 24 hour daily monitoring and intervention from Pool Lifeguard as well as other consulting physicians including internal medicine as well as 24 hour daily thrasher feeder nursing - for medical safe / optimal manageme nt. Patient requires interdisciplinary therapy team rehabilitation care including OT, PT, HEEL BLACKER, SW, Psychology, Rehab Nursing, requires and can [...] and proper breathing techniques during functional tasks. HEEL BLACKER to evaluate and treat patient?s cognition, language [...] equipment to enhance the patient's a functional lutheran Encourage deep breathing exercises and incentive spirometry [...] equipment to enhance the patient's a functional lutheran Ensure adequate nutrition and hydration Sleep: No issues Pain: Reports no major discomfort. Continue as needed Tylenol. Discharge planning: Hopefully home in 7 to 10 days. I spent 46 minutes for services, including xmeq-ku-hokj encounter with the patient, discussion of the case, plan of care, and exam; and nvevxsi-fm-yncf activities, such as reviewing pertinent customer sales consultant documentation, recent therapynotes, laboratory and radiology studies, and discussion of case with care team including physician, nursing, case therapist, and therapists. More than 50 % of time was spent on patient/family counseling or coordination ofcare. I completed a substantive portion of this encounter, the medical decision makingportion of this note in its entirety, including Allied health note review, nursing note review, customer sales consultant note review,discussion with nursing and case management, and more than 50% of my time was spent on counseling and coordination of care, time spent 60 minutes Patient was personally seen by me, Dr. Abreu, on the day of encounter, within 24hours of rehab admission, reviewed the history and the relevant portions of the chart, including current orders, alliedhealth and customer sales consultant notes, labs/imaging and performed dozier elements of exam and I formulated the plan of care and facilitated the medical decision making. 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 Chest [...] of care. Patient lives home alone in [place]. Has a 3story home. Her laundry and [...] signed by Sylvie Florez DO> 07/25/24 1310 [facility] Work Phone: 1([phone]) 391-794704-29-2025 [place] [address] Palliative Care Progress Note Signed Patient: Janelle Burt MR#: [id number] : 1940 Acct:[id number] Age/Sex: 83 / F Adm Date: 5 Loc: Room: [address] [place] [address] Type: ADM IN Attending Dr: Jovani Sibley [...] as severe narrowing in left P1, P2 UNEMPLOYMENT CLAIMS ADJUDICATOR and right P1 UNEMPLOYMENT CLAIMS ADJUDICATOR, 50% narrowing of both proximal ICAs. Chest [...] plan ofcare. Patient lives home alone in [place]. Has a 3story home. Her laundry and [...] DO 07/25/24 1254 Signed By: 07/25/24 1310 [facility]04-29-2025 Progress note Author Jhon Abreu [facility] Note Date/Time July 25, 2024 9:4 0am [facility] [address] [place] [address] Physiatry(Rehab) Progress Note Signed Patient: Janelle Burt MR#: [id number] : 1940 Acct:[id number] Age/Sex: 83 / F Adm Date: 5 Loc: Room: [address] [place] [address] Type: ADM IN Attending Dr: Jovani Sibley [...] Allergy (Unknown, Verified 07/22/24 21:12) Unknown Reaction Cijiixl-VNW-HgG Reductase Inhibitor (Qxpdgtf-Kzl-Tlj Reductase Inhibitor) Allergy (Unknown, Verified 07/22/24 21:12) Unknown Reaction Sulfa (Sulfonamide Antibiotics) Allergy (Unknown, Verified 07/22/24 21:12) Unknown Reaction Active Medications Generic Name Dose Route Start Last Admin Trade Name Freq PRN Reason Stop Dose Admin Acetaminophen 650 mg 07/23/24 04:11 07/23/24 04:25 Acetaminophen 650 Mg Supp.Rect SC 07/23/25 04:10 650 mg Q6HR PRN Administration [...] complexity that cannot be best managed at [facility] level of care and requires at least 3 times weekly encounters with hr generalist for medical management and for plan of care review / changes. Patient was personally seen by me, Dr. Abreu, on the day of encounter, reviewed the history and the relevant portions of the chart, including current orders, allied health and customer sales consultant notes, labs/imaging and performed dozier elements of exam and I formulated the plan of care and facilitated the medical decision making. I completed a substantive portion of this encounter, the medical decision makingportion of this note in its entirety, including Allied health note review, nursing note review, customer sales consultant note review, discussion with nursing and case management, and more than 50% of my time was spent on counseling and coordination of care, time spent 30 minutes Documented By: Jhon Abreu MD 07/25/24 0937 Signed By: <Electronically signed by Jhon Abreu MD> 07/25/24 0940 [facility] Work Phone: 1(390) 630-239304-29-2025 [place] [address] Physiatry(Rehab) Progress Note Signed Patient: Janelle Burt MR#: [id number] : 1940 Acct:[id number] Age/Sex: 83 / F Adm Date: 5 Loc: Room: [address] [place] [address] Type: ADM IN Attending Dr: Jovani Sibley [...] Allergy (Unknown, Verified 07/22/24 21:12) Unknown Reaction Dandupb-KOO-ArC Reductase Inhibitor (Tkiwifi-Guf-Rud Reductase Inhibitor) Allergy (Unknown, Verified 07/22/24 21:12) Unknown Reaction Sulfa (Sulfonamide Antibiotics) Allergy (Unknown, Verified 07/22/24 21:12) Unknown Reaction Active Medications Generic Name Dose Route Start Last Admin Trade Name Freq PRN Reason Stop Dose Admin Acetaminophen 650 mg 07/23/24 04:11 07/23/24 04:25 Acetaminophen 650 Mg Supp.Rect SC 07/23/25 04:10 650 mg Q6HR PRN Administration [...] complexity that cannot be best managed at [facility] level of care and requires at least 3 times weekly encounters with hr generalist for medical management and for plan of care review / changes. Patient was personally seen by me, Dr. Abreu, on the day of encounter, reviewed the history and therelevant portions of the chart, including current orders, allied health and customer sales consultant notes, labs/imaging and performed dozier elements of exam and I formulated the plan of care and facilitated the medical decision making. I completed a substantive portion of this encounter, the medical decision makingportion of this note in its entirety, including Allied health note review, nursing note review, customer sales consultant note review,discussion with nursing and case management, and more than 50% of my time was spent on counseling and coordination of care, time spent 30 minutes Documented By: Jhon Abreu MD 07/25/24 0937 Signed By: 07/25/24 0940 [facility]04-29-2025 Progress note Author Jovani Sibley [facility] Note Date/Time July 24, 2024 10: 03pm [facility] [address] [place] [address] Hospitalist Progress Note Signed Patient: Janelle Burt MR#: [id number] : 1940 Acct:[id number] Age/Sex: 83 / F Adm Date: 5 Loc: Room: [address] [place] [address] Type: ADM IN Attending Dr: Jovani Sibley [...] Allergy (Unknown, Verified 07/22/24 21:12) Unknown Reaction Ehbyfra-TYV-NrX Reductase Inhibitor (Nhmnmma-Mzx-Zpb Reductase Inhibitor) Allergy (Unknown, Verified 07/22/24 21:12) Unknown Reaction Sulfa (Sulfonamide Antibiotics) Allergy (Unknown, Verified 07/22/24 21:12) Unknown Reaction Active Meds: Active Medications Generic Name Dose Route Start Last Admin Trade Name Freq PRN Reason Stop Dose Admin Acetaminophen 650 mg 07/23/24 04:11 07/23/24 04:25 Acetaminophen 650 Mg Supp.Rect SC 07/23/25 04:10 650 mg Q6HR PRN Administration [...] her medical management will be handled by racking machine operator in collaboration with other needed specialist. Patient's [...] <Electronically signed by Jovani Sibley MD> 07/24/24 0235 [facility] Work Phone: 1([phone]) 647-265504-28-2025 [place] [address] Hospitalist Progress Note Signed Patient: Janelle Burt MR#: [id number] : 1940 Acct:[id number] Age/Sex: 83 / F Adm Date: 5 Loc: Room: [address] [place] [address] Type: ADM IN Attending Dr: Jovani Sibley [...] Allergy (Unknown, Verified 07/22/24 21:12) Unknown Reaction Qhqfygf-XOY-UjW Reductase Inhibitor (Yiqlhqm-Mts-Ypt Reductase Inhibitor) Allergy (Unknown, Verified 07/22/24 21:12) Unknown Reaction Sulfa (Sulfonamide Antibiotics) Allergy (Unknown, Verified 07/22/24 21:12) Unknown Reaction Active Meds: Active Medications Generic Name Dose Route Start Last Admin Trade Name Freq PRN Reason Stop Dose Admin Acetaminophen 650 mg 07/23/24 04:11 07/23/24 04:25 Acetaminophen 650 Mg Supp.Rect SC 07/23/25 04:10 650 mg Q6HR PRN Administration [...] her medical management will be handled by racking machine operator in collaboration with other needed specialist. Patient's [...] Jovani Sibley MD 07/24/241144 Signed By: 07/24/24 2202 [facility]04-28-2025 Progress note Author Abdulkadir Amaro [facility] Note Date/Time July 24, 2024 4:2 0pm [facility] [address] [place] [address] Neurology Progress Note Signed Patient: Janelle Burt MR#: [id number] : 1940 Acct:[id number] Age/Sex: 83 / F Adm Date: 5 Loc: Room: [address] [place] [address] Type: ADM IN Attending Dr: Jovani Sibley [...] <Electronically signed by Abdulkadir Amaro DO> 07/24/24 6532 [facility] Work Phone: 1(153) 152-866204-28-[address] [address] Neurology Progress Note Signed Patient: Janelle Burt MR#: [id number] : 1940 Acct:[id number] Age/Sex: 83 / F Adm Date: 5 Loc: Room: 0F9734-1 Type: ADM IN Attending Dr: Jovani Sibley [...] DO 07/24/24 1308 Signed By: 07/24/24 1620 [facility]04-28-2025 Consult note Author Sylvie Florez [facility] Note Date/Time July 24, 2024 1:3 7pm [facility] [address] [place] [address] Palliative Care Consult Note Signed Patient: Janelle Burt MR#: [id number] : 1940 Acct:[id number] Age/Sex: 83 / F Adm Date: 5 Loc: Room: [address] [place] [address] Type: ADM IN Attending Dr: Jovani Sibley [...] as severe narrowing in left P1, P2 UNEMPLOYMENT CLAIMS ADJUDICATOR and right P1 UNEMPLOYMENT CLAIMS ADJUDICATOR, 50% narrowing of both proximal ICAs. Chest [...] of care. Patient lives home alone in [place]. Has a 3story home. Her laundry and [...] negative unless noted below or in HPI [facility] Medical History Ischemic cerebral vascular accident (CVA) [...] stage 3 unspecified Cervical cancer CAD in [place] artery Bronchitis, not specified as acute or [...] Allergy (Unknown, Verified 07/22/24 21:12) Unknown Reaction Roomzkj-QYI-KoE Reductase Inhibitor (Rqxngnz-Tyj-Akm Reductase Inhibitor) Allergy (Unknown, Verified 07/22/24 21:12) [...] Acetaminophen (Acetaminophen 650 Mg Supp.Rect) 650 mg SC Q6HR PRN PRN Reason: Fever or Pain Stop: 07/23/25 04:10 Last Admin: 07/23/24 04:25 Dose: 650 mg Apixaban (Apixaban 5 Mg Tablet) 5 mg PO BID [facility] Stop: 07/23/25 20:59 Last Admin: 07/24/24 08:50 Dose: 5 mg Aspirin (Aspirin 81 Mg Tablet.Dr) 81 mg PO DAILY [facility] Stop: 07/23/25 14:14 Last Admin: 07/24/24 08:50 Dose: 81 mg Atorvastatin Calcium (Atorvastatin 40 Mg Tablet) 40 mg PO DAILY [facility] Stop: 07/24/25 08:59 Last Admin: 07/24/24 08:50 Dose: 40 mg Levofloxacin (Levaquin) 750 mg in 150 mls @ 100 mls/hr IV Q48H [facility] Last Admin: 07/23/24 11:31 Dose: 100 mls/hr Levetiracetam (Keppra) 1,000 mg in 100 mls @ 400 mls/hr IV BID [facility] Stop: 07/23/25 08:59 Last Admin: 07/24/24 08:50 Dose: 400 mls/hr Diltiazem HCl (Cardizem) 100 mg in 100 mls @ 10 mls/hr IV .Q10H [facility]; Protocol Stop: 07/23/25 14:14 Last Admin: 07/24/24 11:26 Dose: Not Given Sodium Chloride (0.9% Sodium Chloride 100 Ml) 100 mls @ 20 mls/hr IV .Q5H [facility] Stop: 07/23/25 14:14 Last Admin: 07/24/24 11:27 Dose: Not Given Levothyroxine Sodium (Levothyroxine 100 Mcg Tablet) 100 mcg PO DAILY@0630 [facility] Stop: 07/24/25 06:29 Last Admin: 07/24/24 06:32 [...] % (Auto) 25.9 % (.) 07/24/24 04:22 Clinch % (Auto) 10.8 % (.) 07/24/24 04:22 Eos % (Auto) 1.4 % (.) 07/24/24 04:22 Baso % (Auto) 1.3 % (.) 07/24/24 04:22 Nucleat RBC Rel Count 0.0 /100 WBC (0-0.5) 07/24/24 04:22 Neut # (Auto) 3.6 x10E3/uL (1.8-7.7) 07/24/24 04:22 Lymph # (Auto) 1.5 x10E3/uL (1.00-4.8) 07/24/24 04:22 Clinch # (Auto) 0.6 x10E3/uL (0.0-0.8) 07/24/24 04:22 [...] pH 8.0 (5.0-9.0) 07/22/24 21:55 Ur Specific [place] 1.025 (1.001-1.030) 07/22/24 21:55 Urine Protein Negative [...] <Electronically signed by Sylvie Florez DO> 07/24/24 4800 [facility] Work Phone: 1(680) [phone] Progress note Author Jhon Abreu [facility] Note Date/Time July 24, 2024 1:1 4pm [facility] [address] [place] [address] Physiatry(Rehab) Progress Note Signed Patient: Janelle Burt MR#: [id number] : 1940 Acct:[id number] Age/Sex: 83 / F Adm Date: 5 Loc: 4C Room: [address] [place] [address] Type: ADM IN Attending Dr: Jovani Sibley [...] daughter present. Her son will be [facility] at [facility]. Both agreeable [...] % (Auto) 60.6 Lymph % (Auto) 25.9 Clinch % (Auto) 10.8 Eos % (Auto) 1.4 Baso % (Auto) 1.3 Nucleat RBC Rel Count 0.0 Neut # (Auto) 3.6 Lymph # (Auto) 1.5 Clinch # (Auto) 0.6 Eos # (Auto) 0.1 [...] Allergy (Unknown, Verified 07/22/24 21:12) Unknown Reaction Rbcuuyw-UBT-QjG Reductase Inhibitor (Kcwrlyu-Ckl-Xsx Reductase Inhibitor) Allergy (Unknown, Verified 07/22/24 21:12) Unknown Reaction Sulfa (Sulfonamide Antibiotics) Allergy (Unknown, Verified 07/22/24 21:12) Unknown Reaction Active Medications Generic Name Dose Route Start Last Admin Trade Name Freq PRN Reason Stop Dose Admin Acetaminophen 650 mg 07/23/24 04:11 07/23/24 04:25 Acetaminophen 650 Mg Supp.Rect SC 07/23/25 04:10 650 mg Q6HR PRN Administration [...] complexity that cannot be best managed at [facility] level of care and requires at least 3 times weekly encounters with hr generalist for medical management and for plan of care review / changes. Patient was personally seen by me, Dr. Abreu, on the day of encounter, reviewed the history and the relevant portions of the chart, including current orders, allied health and customer sales consultant notes, labs/imaging and performed dozier elements of exam and I formulated the plan of care and facilitated the medical decision making. I completed a substantive portion of this encounter, the medical decision makingportion of this note in its entirety, including Allied health note review, nursing note review, customer sales consultant note review, discussion with nursing and case management, and more than 50% of my time was spent on counseling and coordination of care, time spent 45 minutes Documented By: Jhon Abreu MD 07/24/24 1307 Signed By: <Electronically signed by Jhon Abreu MD> 07/24/24 1314 [facility] Work Phone: 1(775) 366-818804-28-2025 [place] [id number] Palliative Care Consult Note Signed Patient: Janelle Burt MR#: [id number] : 1940 Acct:[id number] Age/Sex: 83 / F Adm Date: 5 Loc: Room: [address] [place] [address] Type: ADM IN Attending Dr: Jovani Sibley [...] as severe narrowing in left P1, P2 UNEMPLOYMENT CLAIMS ADJUDICATOR and right P1 UNEMPLOYMENT CLAIMS ADJUDICATOR, 50% narrowing of both proximal ICAs. Chest [...] plan ofcare. Patient lives home alone in [place]. Has a 3story home. Her laundry and [...] does have HPOA paperwork in hand. Daughter eLsly is primary. Reviewed resuscitation preferences. She previously [...] negative unless noted below or in HPI [facility] Medical History Ischemic cerebral vascular accident (CVA) [...] stage 3 unspecified Cervical cancer CAD in [place] artery Bronchitis, not specified as acute or [...] Allergy (Unknown, Verified 07/22/24 21:12) Unknown Reaction Rpmgimt-TOT-AaX Reductase Inhibitor (Txebivh-Lfk-Mbz Reductase Inhibitor) Allergy (Unknown, Verified 07/22/24 21:12) [...] Acetaminophen (Acetaminophen 650 Mg Supp.Rect) 650 mg SC Q6HR PRN PRN Reason: Fever or Pain Stop: 07/23/25 04:10 Last Admin: 07/23/24 04:25 Dose: 650 mg Apixaban (Apixaban 5 Mg Tablet) 5 mg PO BID [facility] Stop: 07/23/25 20:59 Last Admin: 07/24/24 08:50 Dose: 5 mg Aspirin (Aspirin 81 Mg Tablet.Dr) 81 mg PO DAILY [facility] Stop: 07/23/25 14:14 Last Admin: 07/24/24 08:50 Dose: 81 mg Atorvastatin Calcium (Atorvastatin 40 Mg Tablet) 40 mg PO DAILY [facility] Stop: 07/24/25 08:59 Last Admin: 07/24/24 08:50 Dose: 40 mg Levofloxacin (Levaquin) 750 mg in 150 mls @ 100 mls/hr IV Q48H [facility] Last Admin: 07/23/24 11:31 Dose: 100 mls/hr [...] % (Auto) 25.9 % (.) 07/24/24 04:22 Clinch % (Auto) 10.8 % (.) 07/24/24 04:22 Eos % (Auto) 1.4 % (.) 07/24/24 04:22 Baso % (Auto) 1.3 % (.) 07/24/24 04:22 Nucleat RBC Rel Count 0.0 /100 WBC (0-0.5) 07/24/24 04:22 Neut # (Auto) 3.6 x10E3/uL (1.8-7.7) 07/24/24 04:22 Lymph # (Auto) 1.5 x10E3/uL (1.00-4.8) 07/24/24 04:22 Clinch # (Auto) 0.6 x10E3/uL (0.0-0.8) 07/24/24 04:22 [...] pH 8.0 (5.0-9.0) 07/22/24 21:55 Ur Specific [place] 1.025 (1.001-1.030) 07/22/24 21:55 Urine Protein Negative [...] DO 07/24/24 1142 Signed By: 07/24/24 1337 [facility]04-28-2025 [place] [address] Physiatry(Rehab) Progress Note Signed Patient: Janelle Burt MR#: [id number] : 1940 Acct:[id number] Age/Sex: 83 / F Adm Date: 5 Loc: Room: [id number] Type: ADM IN Attending Dr: Jovani Sibley [...] % (Auto) 60.6 Lymph % (Auto) 25.9 Clinch % (Auto) 10.8 Eos % (Auto) 1.4 Baso % (Auto) 1.3 Nucleat RBC Rel Count 0.0 Neut # (Auto) 3.6 Lymph # (Auto) 1.5 Clinch # (Auto) 0.6 Eos # (Auto) 0.1 [...] Allergy (Unknown, Verified 07/22/24 21:12) Unknown Reaction Ugjeuln-LIN-YrI Reductase Inhibitor (Afizzit-Ulr-Kdi Reductase Inhibitor) Allergy (Unknown, Verified 07/22/24 21:12) Unknown Reaction Sulfa (Sulfonamide Antibiotics) Allergy (Unknown, Verified 07/22/24 21:12) Unknown Reaction Active Medications Generic Name Dose Route Start Last Admin Trade Name Freq PRN Reason Stop Dose Admin Acetaminophen 650 mg 07/23/24 04:11 07/23/24 04:25 Acetaminophen 650 Mg Supp.Rect SC 07/23/25 04:10 650 mg Q6HR PRN Administration [...] complexity that cannot be best managed at [facility] level of care and requires at least 3 times weekly encounters with hr generalist for medical management and for plan of care review / changes. Patient was personally seen by me, Dr. Abreu, on the day of encounter, reviewed the history and therelevant portions of the chart, including current orders, allied health and customer sales consultant notes, labs/imaging and performed dozier elements of exam and I formulated the plan of care and facilitated the medical decision making. I completed a substantive portion of this encounter, the medical decision makingportion of this note in its entirety, including Allied health note review, nursing note review, customer sales consultant note review,discussion with nursing and case management, and more than 50% of my time was spent on counseling and coordination of care, time spent 45 minutes Documented By: Jhon Abreu MD 07/24/24 1307 Signed By: 07/24/24 1314 [facility]04-27-2025 Progress note Author Jhony Davis [facility] Note Date/Time July 23, 2024 2:5 7pm [facility] [address] [place] [address] Progress Note Signed Patient: Janelle Burt MR#: [id number] : 1940 Acct:[id number] Age/Sex: 83 / F Adm Date: 5 Loc: Room: [address] [place] [address] Type: ADM IN Attending Dr: Jhony Davis [...] signed by Jhony Davis MD> 07/23/24 1457 [facility] Work Phone: 1([phone]) 442-148904-27-2025 Consult note Author Guido Bridges [facility] Note Date/Time July 23, 2024 1:4 2pm [facility] [address] [place] [address] Neurology Consult Note Signed Patient: Janelle Burt MR#: [id number] : 1940 Acct:[id number] Age/Sex: 83 / F Adm Date: 5 Loc: Room: [address] [place] [address] Type: ADM IN Attending Dr: Jhony Davis MD Copies to: DO Antonino Wilson MD Rafik Massouh, MD~ HPI Consult Date: 07/23/24 Control Area Operator: Guido Bridges DO Consult Narrative HPI: Was [...] of Systems Unobtainable due to mental status [facility] Medical History Ischemic cerebral vascular accident (CVA) [...] stage 3 unspecified Cervical cancer CAD in [place] artery Bronchitis, not specified as acute or [...] Allergy (Unknown, Verified 07/22/24 21:12) Unknown Reaction Woauthl-AXM-LfA Reductase Inhibitor (Zuckjox-Bpe-Rjy Reductase Inhibitor) Allergy (Unknown, Verified 07/22/24 21:12) [...] Ferrera M.D. 07/23/2024 7:56 AM Dictation Location: [place] [address] Head CTA 07/22/24 21:12 IMPRESSION: Negative for large vessel occlusion or hemodynamically significant stenosis involving the cervical vessels. Moderate burden of disease identified intracranially notably involving right distal M1 segment. Left A2 A3 segment. Moderate severe narrowing left P1 P2 segment UNEMPLOYMENT CLAIMS ADJUDICATOR. Moderate narrowing right P1 segment UNEMPLOYMENT CLAIMS ADJUDICATOR. Up to 50% narrowing involving both proximal ICAs Impression dictated by: Charli Ferrera M.D. 07/23/2024 8:46 AM Dictation Location: [place] [address] Assessment/Plan (1) Seizure: (2) Altered mental status: [...] <Electronically signed by Guido Bridges DO> 07/23/[address] [place] [address] Work Phone: 1(235) 266-597604-27-2025 [place] [address] Progress Note Signed Patient: Janelle Burt MR#: [id number] : 1940 Acct:[id number] Age/Sex: 83 / F Adm Date: 5 Loc: Room: [address] [place] [address] Type: ADM IN Attending Dr: Jhony Davis [...] Davis MD 07/23/241455 Signed By: 07/23/24 1457 [facility]04-27-2025 Consult note Author Samra Andrade [facility] Note Date/Time July 23, 2024 12: 21pm [facility] [address] [place] [address] Pulmonology Consult Note Signed Patient: Janelle Burt MR#: [id number] : 1940 Acct:[id number] Age/Sex: 83 / F Adm Date: 5 Loc: Room: [address] [place] [address] Type: ADM IN Attending Dr: Jhony Davis [...] stated above mentioned history of present illness [facility] Medical History Ischemic cerebral vascular accident (CVA) [...] stage 3 unspecified Cervical cancer CAD in [place] artery Bronchitis, not specified as acute or [...] Allergy (Unknown, Verified 07/22/24 21:12) Unknown Reaction Nvedqpl-NVD-IqN Reductase Inhibitor (Pioncdl-Zfe-Zdd Reductase Inhibitor) Allergy (Unknown, Verified 07/22/24 21:12) [...] nondistended. Extremities: No edema. Skin: No lesions SENIOR ESTIMATOR: Sleepy with apparent left facial droop. Arouses [...] signed by Samra Andrade MD> 07/23/24 1221 [facility] Work Phone: 1(204) 569-819504-27-2025 [place] [address] Neurology Consult Note Signed Patient: Janelle Burt MR#: [id number] : 1940 Acct:[id number] Age/Sex: 83 / F Adm Date: 5 Loc: Room: [address] [place] [address] Type: ADM IN Attending Dr: Jhony Davis MD Copies to: Christopher M DO Antonino Bridgse MD Rafik Massouh, MD~ HPI Consult Date: 07/23/24 Control Area Operator: Guido Bridges DO Consult Narrative HPI: Was [...] of Systems Unobtainable due to mental status [facility] Medical History Ischemic cerebral vascular accident (CVA) [...] stage 3 unspecified Cervical cancer CAD in [place] artery Bronchitis, not specified as acute or [...] Allergy (Unknown, Verified 07/22/24 21:12) Unknown Reaction Dvhqaai-ICS-BqB Reductase Inhibitor (Ydhzseu-Bpc-Mph Reductase Inhibitor) Allergy (Unknown, Verified 07/22/24 21:12) [...] Ferrera M.D. 07/23/2024 7:56 AM Dictation Location: [place] Head CTA 07/22/24 21:12 IMPRESSION: Negative for large vessel occlusion or hemodynamically significant stenosis involving the cervical vessels. Moderate burden of disease identified intracranially notably involving right distal M1 segment. Left A2 A3 segment. Moderate severe narrowing left P1 P2 segment UNEMPLOYMENT CLAIMS ADJUDICATOR. Moderate narrowing right P1 segment UNEMPLOYMENT CLAIMS ADJUDICATOR. Up to 50% narrowing involving both proximal ICAs Impression dictated by: Charli Ferrera M.D. 07/23/2024 8:46 AM Dictation Location: [place] Assessment/Plan (1) Seizure: (2) Altered mental status: [...] concerns Documented By: Guido Bridges DO [id number] Signed By: 07/23/24 1342 [facility]04-27-2025 Progress note Author Jhony Davis [facility] Note Date/Time July 23, 2024 10: 42am [facility] [address] [place] [address] Hospitalist Progress Note Signed Patient: Janelle Burt MR#: [id number] : 1940 Acct:[id number] Age/Sex: 83 / F Adm Date: 5 Loc: Room: 8K0274-7 Type: ADM IN Attending Dr: Jhony Davis [...] Allergy (Unknown, Verified 07/22/24 21:12) Unknown Reaction Xrphjlv-OCY-VaX Reductase Inhibitor (Wvbjknn-Doe-Ivi Reductase Inhibitor) Allergy (Unknown, Verified 07/22/24 21:12) Unknown Reaction Sulfa (Sulfonamide Antibiotics) Allergy (Unknown, Verified 07/22/24 21:12) Unknown Reaction Active Meds: Active Medications Generic Name Dose Route Start Last Admin Trade Name Freq PRN Reason Stop Dose Admin Acetaminophen 650 mg 07/23/24 04:11 07/23/24 04:25 Acetaminophen 650 Mg Supp.Rect SC 07/23/25 04:10 650 mg Q6HR PRN Administration Fever or Pain Aspirin 300 mg 07/23/24 10:45 Aspirin 300 Mg Supp.Rect SC 07/23/25 10:44 DAILY CLIFTON Enoxaparin Sodium 50 [...] 07/23/24 10:30 Lactated Ringers IV 07/23/25 10:29 .[id number] CLIFTON Ceftriaxone Sodium 1 gm in 50 [...] her medical management will be handled by racking machine operator in collaboration with other needed specialist. Patient's [...] <Electronically signed by Jhony Davis MD> 07/23/24 1041 [facility] Work Phone: 1(229) 106-857604-27-2025 [place] [address] Pulmonology Consult Note Signed Patient: Janelle Burt MR#: [id number] : 1940 Acct:[id number] Age/Sex: 83 / F Adm Date: 5 Loc: Room: [address] [place] [address] Type: ADM IN Attending Dr: Jhony Davis [...] stated above mentioned history of present illness [facility] Medical History Ischemic cerebral vascular accident (CVA) [...] stage 3 unspecified Cervical cancer CAD in ton[place] artery Bronchitis, not specified as acute or [...] Allergy (Unknown, Verified 07/22/24 21:12) Unknown Reaction Ozlqtue-UQX-YlP Reductase Inhibitor (Kcwfhkg-Maw-Sbx Reductase Inhibitor) Allergy (Unknown, Verified 07/22/24 21:12) [...] nondistended. Extremities: No edema. Skin: No lesions SENIOR ESTIMATOR: Sleepy with apparent left facial droop. Arouses [...] MD 07/23/24 1214 Signed By: 07/23/24 1221 [facility]04-27-2025 [place] [address] Hospitalist Progress Note Signed Patient: Janelle Burt MR#: [id number] : 1940 Acct:[id number] Age/Sex: 83 / F Adm Date: 5 Loc: Room: [address] [place] [address] Type: ADM IN Attending Dr: Jhony Davis [...] Allergy (Unknown, Verified 07/22/24 21:12) Unknown Reaction Xkmhmbu-SPV-LmB Reductase Inhibitor (Rhildcv-Kcp-Svt Reductase Inhibitor) Allergy (Unknown, Verified 07/22/24 21:12) Unknown Reaction Sulfa (Sulfonamide Antibiotics) Allergy (Unknown, Verified 07/22/24 21:12) Unknown Reaction Active Meds: Active Medications Generic Name Dose Route Start Last Admin Trade Name Freq PRN Reason Stop Dose Admin Acetaminophen 650 mg 07/23/24 04:11 07/23/24 04:25 Acetaminophen 650 Mg Supp.Rect SC 07/23/25 04:10 650 mg Q6HR PRN Administration Fever or Pain Aspirin 300 mg 07/23/24 10:45 Aspirin 300 Mg Supp.Rect SC 07/23/25 10:44 DAILY CLIFTON Enoxaparin Sodium 50 [...] 07/23/24 10:30 Lactated Ringers IV 07/23/25 10:29 .[id number] [place] Ceftriaxone Sodium 1 gm in 50 [...] her medical management will be handled by racking machine operator in collaboration with other needed specialist. Patient's [...] MD 07/23/24 1037 Signed By: 07/23/24 1042 [facility]04-27-2025 Radiology Diagnostic study note [facility] [address] CT Scan Report Signed Patient: Janelle Burt MR#: [id number] : 1940 Acct:[id number] Age/Sex: 83 / F ADM Date: 5 Loc: Room: [address] [place] [address] Type: ADM IN Attending Dr: Jhony Davis MD Copies to: MD Asad Doan Jr, MD~ Ordering Provider: Asad Mcnally Jr, MD Date of Service: 07/22/24 CT/CT angio head: fall, mild L weakness, anticoag ([id number]) CT/CT angio neck: fall, mild L weakness, [...] DIFFUSE NARROWING INVOLVING THE REMAINDER OF THE MANAGER ASSET. NO SACCULAR ANEURYSM. MULTILEVEL DEGENERATIVE CHANGES THROUGHOUT THE CERVICAL SPINE CT/CT angio head IMPRESSION: Negative for large vessel occlusion or hemodynamically significant stenosis involving the cervical vessels. Moderate burden of disease identified intracranially notably involving right distal M1 segment. Left A2 A3 segment. Moderate severe narrowing left P1 P2 segment UNEMPLOYMENT CLAIMS ADJUDICATOR. Moderate narrowing right P1 segment UNEMPLOYMENT CLAIMS ADJUDICATOR. Up to 50% narrowing involving both proximal ICAs Impression dictated by: Charli Ferrera M.D. 07/23/2024 8:46 AM Dictation Location: [place] [address] Transcribed By: [facility] 07/23/24845 Dictated By: Charli Ferrera MD 07/23/24 0835 Signed By: 07/23/24 0846 [facility] Work Phone: 1(785) 355-451004-27-2025 Radiology Diagnostic study [facility] [place] [address] [place] [address] CT Scan Report Signed Patient: Janelle Burt MR#: [id number] : 1940 Acct:[id number] Age/Sex: 83 / F ADM Date: 5 Loc: Room: [address] [place] [address] Type: ADM IN Attending Dr: Jhony Davis [...] bleed, midline shift or mass effect. 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 Moderate chronic small vessel ischemic disease. Intracranial vascular calcification. No calvarial fracture. Mild ethmoid sinusmucosal thickening. Cataract surgery. CT/CT head stroke alert wo con IMPRESSION: Chronic microvascular disease and Central involutional changes without evidence acute bleed or midline shift. Impression dictated by: Charli Ferrera M.D. 07/23/2024 7:56 AM Dictation Location: [place] [address] Transcribed By: [facility] 07/23/24 075 Dictated By: Charli Ferrera MD 07/23/24 0753 Signed By: 07/23/24 0756 [facility] Work Phone: [phone]) [phone] History and physical note Author Jon Felder [facility] Note Date/Time July 23, 2024 5:2 4am [facility] [address] [place] [address] Hospitalist H&P Signed with Mac Patient: Janelle Burt MR#: [id number] : 1940 Acct:[id number] Age/Sex: 83 / F Adm Date: 5 Loc: Room: [address] [place] [address] Type: ADM IN Attending Dr: Jon Felder [...] status and Unobtainable due to mental condition [facility] Medical History Ischemic cerebral vascular accident (CVA) [...] stage 3 unspecified Cervical cancer CAD in ton[place]anda artery Bronchitis, not specified as acute or [...] Allergy (Unknown, Verified 07/22/24 21:12) Unknown Reaction Pymftpo-UCQ-YoT Reductase Inhibitor (Pnnjdfm-Hrt-Xgy Reductase Inhibitor) Allergy (Unknown, Verified 07/22/24 21:12) [...] % (Auto) 17.6 % (.) 07/22/24 21:10 Clinch % (Auto) 5.3 % (.) 07/22/24 21:10 Eos % (Auto) 0.9 % (.) 07/22/24 21:10 Baso % (Auto) 0.8 % (.) 07/22/24 21:10 Nucleat RBC Rel Count 0.1 /100 WBC (0-0.5) 07/22/24 21:10 Neut # (Auto) 7.4 x10E3/uL (1.8-7.7) 07/22/24 21:10 Lymph # (Auto) 1.7 x10E3/uL (1.00-4.8) 07/22/24 21:10 Clinch # (Auto) 0.5 x10E3/uL (0.0-0.8) 07/22/24 21:10 [...] pH 8.0 (5.0-9.0) 07/22/24 21:55 Ur Specific [place] 1.025 (1.001-1.030) 07/22/24 21:55 Urine Protein Negative [...] 75 Documented By: Jon Felder MD 07/22/24 7119 Signed By: <Electronically signed by Jon Felder MD> 07/23/24 0148 [facility] Work Phone: [phone]) [phone] [place] [address] Hospitalist H&P Signed with Addenda Patient: Janelle Burt MR#: [id number] : 1940 Acct:[id number] Age/Sex: 83 / F Adm Date: 5 Loc: Room: [address] [place] [address] Type: ADM IN Attending Dr: Jon Felder [...] status and Unobtainable due to mental condition [facility] Medical History Ischemic cerebral vascular accident (CVA) [...] stage 3 unspecified Cervical cancer CAD in ton[place]anda artery Bronchitis, not specified as acute or [...] Allergy (Unknown, Verified 07/22/24 21:12) Unknown Reaction Ghqhxot-RBD-UzJ Reductase Inhibitor (Vthuhjn-Ykl-Yqe Reductase Inhibitor) Allergy (Unknown, Verified 07/22/24 21:12) [...] % (Auto) 17.6 % (.) 07/22/24 21:10 Clinch % (Auto) 5.3 % (.) 07/22/24 21:10 Eos % (Auto) 0.9 % (.) 07/22/24 21:10 Baso % (Auto) 0.8 % (.) 07/22/24 21:10 Nucleat RBC Rel Count 0.1 /100 WBC (0-0.5) 07/22/24 21:10 Neut # (Auto) 7.4 x10E3/uL (1.8-7.7) 07/22/24 21:10 Lymph # (Auto) 1.7 x10E3/uL (1.00-4.8) 07/22/24 21:10 Clinch # (Auto) 0.5 x10E3/uL (0.0-0.8) 07/22/24 21:10 [...] pH 8.0 (5.0-9.0) 07/22/24 21:55 Ur Specific [place] 1.025 (1.001-1.030) 07/22/24 21:55 Urine Protein Negative [...] 75 Documented By: Jon Felder MD 07/22/24 5180 Signed By: 07/23/24 0148 [facility]04-27-2025 [place] [address] Hospitalist H&P Signed Patient: Janelle Burt MR#: [id number] : 1940 Acct:[id number] Age/Sex: 83 / F Adm Date: 5 Loc: Room: [address] [place] [address] Type: ADM IN Attending Dr: Jon Felder [...] status and Unobtainable due to mental condition [facility] Medical History Ischemic cerebral vascular accident (CVA) [...] stage 3 unspecified Cervical cancer CAD in ton[place]anda artery Bronchitis, not specified as acute or [...] Allergy (Unknown, Verified 07/22/24 21:12) Unknown Reaction Dmguxjc-PNZ-KoK Reductase Inhibitor (Aztdrlx-Ygd-Ghb Reductase Inhibitor) Allergy (Unknown, Verified 07/22/24 21:12) [...] % (Auto) 17.6 % (.) 07/22/24 21:10 Clinch % (Auto) 5.3 % (.) 07/22/24 21:10 Eos % (Auto) 0.9 % (.) 07/22/24 21:10 Baso % (Auto) 0.8 % (.) 07/22/24 21:10 Nucleat RBC Rel Count 0.1 /100 WBC (0-0.5) 07/22/24 21:10 Neut # (Auto) 7.4 x10E3/uL (1.8-7.7) 07/22/24 21:10 Lymph # (Auto) 1.7 x10E3/uL (1.00-4.8) 07/22/24 21:10 Clinch # (Auto) 0.5 x10E3/uL (0.0-0.8) 07/22/24 21:10 [...] pH 8.0 (5.0-9.0) 07/22/24 21:55 Ur Specific [place] 1.025 (1.001-1.030) 07/22/24 21:55 Urine Protein Negative [...] 75 Documented By: Jon Felder MD 07/22/24 3551 Signed By: 07/23/24 0148 [facility]04-27-2025 Evaluation note* Diagnosis Onset Date Resolution [...] right eye acute August 07, 2024 1:49pm [facility] Work Phone: [phone]) [phone] Evaluation note* Diagnosis Onset Date Resolution Status [...] Left leg pain acute August 29 2:19pm [facility] Work Phone: [phone]) 222-902304-27-2025 Evaluation note* Diagnosis Onset Date Resolution Status [...] tract infection) acute September 20, 2024 10:35am [facility] Work Phone: 1([phone]) 588-651003-31-2025 Telephone encounter Note* Telephone Encounter - Marina [...] her daughter Lesly will call to reschedule. [facility] Work Phone: [phone]) [phone] Miscellaneous Notes* Telephone Encounter - Marina Burt [...] to fast for this. Labwork resent to [facility] per patient request. The patent states that her daughter Lesly will call to reschedule. documented in this [facility] HospitalVskpglmhnf44-54-1951 History of Present illness Narrative* Michael Ramos, [...] ) Objective Physical Exam Allergies Clonidine, Methylprednisolone, Tpdmivw-xky-ltm reductase inhibitors, Tati inhibitors, Amlodipine, Hydralazine, Lisinopril, [...] exam, discussion and plan. documented in this [facility] Work Phone: [phone]) [phone] Instructions* Patient Instructions* Anamaria Pichardo LPN - [...] are within normal range. documented in this [facility] Work Phone: [phone]) 789-366102-24-2025 Evaluation note* Diagnosis Onset Date Resolution Status Admit Date Atrial fibrillation acute 2024 1:28pm CKD (chronic kidney disease) stage 3, GFR 30-59 ml/min acute 2024 1:28pm CVA (cerebral vascular accident) acute May 22 1:28pm Hypertension acute April 1:28pm Seizure acute July 22 11:31pm [facility] Work Phone: 1([phone]) 426-622402-24-2025 Evaluation note* Diagnosis Onset Date Resolution Status [...] tract infection) acute July 22, 2024 11:31pm [facility] Work Phone: [phone]) [phone] Evaluation note* Diagnosis Onset Date Resolution Status [...] Altered mental status resolved Apr 2024 6:01pm [facility] Work Phone: [phone] Evaluation note* Diagnosis Onset Date Resolution Status [...] 6:01pm Seizure acute August 07, 2024 1:49pm [facility] Work Phone: [phone] History of Present illness Narrative* Michael Ramos, DO - 04/05/2024 10:30 AM EST Subjective Janelle Burt is a 83 y.o. female Chief Complaint Follow-up; Blood Pressure Check 83-year-old female here primarily for blood pressure check however in the interim she is developed an occipital stroke that was recognized by I believe her row boss, transferred to [facility], confirmed. Subsequent monitoring revealed 2 episodes of [...] ) Objective Physical Exam Allergies Clonidine, Methylprednisolone, Dzuikgx-clf-mfa reductase inhibitors, Tati inhibitors, Amlodipine, Hydralazine, Lisinopril, [...] Cerebrovascular accident (CVA), unspecified mechanism (Multi) 3. correction current use of anticoagulant therapy 4. Paroxysmal [...] exam, discussion and plan. [facility] Phone: [phone]) 475-578401-08-2025 Instructions* Patient Instructions* Anamaria Pichardo LPN - [...] time of your visit. [facility] Work Phone: 1(703) 202-380901-07-2025 History of Present illness Narrative* Amanda Bray NP - 04/04/2024 1:40 PM EST Images from the original note were not included. Chief Complaint Patient presents with Hospital Follow-up Stroke Subjective Janelle Burt is a 83 y.o. female. History of Present Illness The patient presents today for follow-up. She is accompanied by her daughter, Lesly. She was hospitalized at [facility] ([facility]) from 03/06/2024 to 03/07/2024. The patient was evaluated by her row boss on 03/06/2024, and they noted a new visual field defect, specifically left homonymous hemianopia. She was subsequently referred to [facility] emergency department for stroke work up. The [...] 40 MG tablet; Commonly known as: Lipitor givyfsgntm-rxvotirfmkgde-aofqmzpz 50-300-40 MG capsule; Commonly known as: Fioricet [...] wrist extensors , wrist flexor , and sole rougher strength 5/5. LUE strength deltoid , biceps , triceps , wrist extensors , wrist flexor , and sole rougher strength 5/5. RLE strength iliopsoas, quadriceps, tibialis [...] reflex 1+. LLE knee reflex 1+. Coordination: Qdejwp-ue-uizd testing normal. Rapid alternating movements are normal. [...] of the vertebrobasilar circulation with small caliber timber estimator without distinct focal high-grade proximal stenosis of the timber estimator. Multilevel degenerative changes in the cervical spine. MRI of the brain without contrast on 03/06/2024: Small areas of recent appearing infarcts superimposed on larger area of chronic infarct in the right occipital region, especially within the periventricular region. Suspected mild to moderate chronic microvascular ischemia. Mild to moderate generalized volume loss. CT of the brain without contrast on 03/06/2024: Xkan-gs-gygfazcx cerebral atrophy. Chronic ischemicwhite matter disease. Age [...] ischemic stroke. The patient was transferred to [facility] Emergency Department from her ophthalmology appointment on [...] NP [facility] documented in this [facility]01-07-2025 Instructions* Patient Instructions* Amanda Bray NP - 04/04/2024 1:40 PM EST - Check labs documented in this [facility]12-17-2024 Evaluation note* Diagnosis Onset Date Resolution [...] 10:22am Hyponatremia acute February 10:22am Hypoparathyroidism acute [facility] er 2023 10:22am [facility] Work Phone: [phone]) 288-718512-10-2024 Hospital Discharge instructions Patient Education 03/07/2024 14:42:18 Atrial Fibrillation, Uevo-gj-Xrva Atrial Fibrillation Atrial fibrillation (AFib) is a [...] Follow these instructions at home: Medicines Take tnio-nab-gzzyyht and prescription medicines only as told by [...] provider. Document Revised: 12/02/2022 Document Reviewed: 12/02/2022 Frameri Patient Education 2023 [email or web address]. 03/07/2024 14:42:15 Core Measures: Stroke (Cerebrovascular Accident) [facility], (CUSTOM) Stroke (Cerebrovascular Accident) A stroke is [...] factors for stroke, work with your health career placement services counselor to control them. High Blood Pressure: High [...] Please call [facility] at [phone] ([facility]), or [phone], ext. [phone] Diabetes: Work with your healthcare professional to [...] cholesterol diet, you can call our Yvonne inspection machine tender at [phone] Ext. [phone]. The goal for total cholesterol is less [...] your risk of stroke with your health career placement services counselor. TREATMENT TIME IS OF THE ESSENCE! Medications [...] Measures will be takento prevent short and fci complications, including aspiration pneumonia, blood clots in [...] for more information on strokes, log onto www.[email or web address].com or www.strokeassociation.org or call the [employer] at (080) 448- 1909. Revised 03/2018 Follow Up Care 03/06/2024 14:50:37 With:ANTONINO GUSTAFSON MD, FAM Address: [address] [place] [address]- When:5 to 7 days Comments:Call for followup appointment to talk about switching from Eliquis to Coumadin once you are out of Eliquis With:Kamar Escobar MD, NEU Address: [address] [address]- When:2 to 4 weeks [facility] 12-10-2024 NoteDischarge Summary Admission and Discharge [...] ER on 03/06 after being seen by row boss due to visual field defects. Per patient [...] EST, Stroke, Consult and Co-manage Consult to Infection Prevention Specialist - Ordered -- 03/06/24 23:07:42 EST Physical [...] KASH MUÑIZ Within 5 to [address] [place] [address]- Additional Instructions: Call for followup appointment to talk about switching from Eliquis to Coumadin once you are out of Roxana Escobar MD, YVES Galvin Within 2 to [address] [address]- Additional Instructions: Patient Education Atrial Fibrillation, Yili-wk-Mpij Core Measures: Stroke (Cerebrovascular Accident) [facility], ([facility] CenterComment on above:Result Comment: Electronically Signed By: Michael Worthington DO\.br\Date and Time Signed: 03/07/24 15:01 [id number] Evaluation + Plan noteExtracted from: Title:Discharge Note [...] MD, FAM Within 5 to [address] [place] [address]- Additional Instructions: Call for followup appointment to talk about switching from Eliquis to Coumadin once you are out of Eliquis Shawn MORA, YVES Galvin Within 2 to [address] [address]- Additional Instructions: Atrial Fibrillation, Moub-np-Mbik Core Measures: Stroke (Cerebrovascular Accident) [facility], (CUSTOM) Extracted from: Title:Consult Note- Neurology Author:Nery Mace RN Date:03/07/24 ASSESSMENT: 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 There is some developing encephalomalacia that makes the stroke appear subacute to chronic, but there are still some peripheral diffusion weighted signal changes that could suggest acute on chronic ischemia. In early January she had CT images at [facility] that reportedly did not show any concerns. And she cannot quite pin down when her visual issues started. So it is hard to know how old the stroke is. Etiology either relates to arteriopathy such as UNEMPLOYMENT CLAIMS ADJUDICATOR occlusion on the right or her atrial fibrillation. I do not have any angiography yet. PLAN: 1. Apixaban has been started here 2. CTA of head and neck 3. Transthoracic echocardiogram pending 4. She has chronically taken aspirin 81 mg daily at home. If the CTA studies show significant atherosclerotic disease or a UNEMPLOYMENT CLAIMS ADJUDICATOR occlusion then I would recommend she stay [...] atrial fibrillation) - New Dx per outpatient grain origination specialist, Dr Ramos - Mildly Bradycardic in the [...] Education Stroke Quality Measures Vital Signs Weight [facility] 12-10-2024 NoteEchocardiology Procedure Exam Date/Time Accession # Ordering Echo Transthoracic 03/07/2024 10:05 [facility] [id number] Abdulkadir Amaro DO Complete CPT code 36687 Reason for Exam (Echo Transthoracic Complete) CVA Report [facility] [address] [place] [address] Adult Echocardiogram Report Name: JANELLE BURT Study Date: 03/07/2024 09:18 AM BP: 173/67 mmHg Patient Location: [address] [place] [address] Bed(s) [facility] HR: 95 : 1940 Gender: Female Height: 65.5 in Age: 83 yrs Ethnicity: T Weight: 137 lb Reason For Study: CVA BSA: 1.7 m2 History: Hypertension, Atrial Fibrillation Ordering Physician: Abdulkadir Amaro Performed By: Ya Wyatt, [facility] Interpretation Summary The left ventricle is [...] no pleural effusion noted on this exam. [facility] No comparison study is available. MMode/2D Measurements [...] Chance Dennison MD Transcribed by: JOLENE Technologist: [facility]12-10-2024 Note Consultation Note Chief Complaint Headache, vision [...] was seen at the emergency department in [place], I believe family was concern for stroke, [...] both correctly = 0 Open and close eyes/sole rougher release hand: Obeys both correctly = 0 [...] early January she had CT images at [facility] that reportedly did not show any concerns. And she cannot quite pin down when her visual issues started. So it is hard to know how old the stroke is. Etiology either relates to arteriopathy such as UNEMPLOYMENT CLAIMS ADJUDICATOR occlusion on the right or her atrial fibrillation. I do not haveany angiography yet. PLAN: 1. Apixaban has been started here 2. CTA of head and neck 3. Transthoracic echocardiogram pending 4. She has chronically taken aspirin 81 mg daily at home. If the CTA studies show significant atherosclerotic disease or a UNEMPLOYMENT CLAIMS ADJUDICATOR occlusion then I would recommend she stay [...] 1 tab(s), Oral, B (more content not included)...[facility]:Result Comment: Electronically Signed By: Nery Mace RN\.br\Date and Time Signed: 03/07/24 07:04 EST\.br\Electronically Co-Signed By: Abdulkadir Amaro DO\.br\Date and Time Co-Signed: 03/07/24 09:43 EST\.br\Electronically Co-Signed By: Nery Mace RN [id number] NoteConsultation Note Chief Complaint Headache, vision issues [...] was seen at the emergency department in [place], I believe family was concern for stroke, [...] both correctly = 0 Open and close eyes/sole rougher release hand: Obeys both correctly = 0 [...] early January she had CT images at [facility] that reportedly did not show any concerns. And she cannot quite pin down when her visual issues started. So it is hard to know how old the stroke is. Etiology either relates to arteriopathy such as UNEMPLOYMENT CLAIMS ADJUDICATOR occlusion on the right or her atrial fibrillation. I do not haveany angiography yet. PLAN: 1. Apixaban has been started here 2. CTA of head and neck 3. Transthoracic echocardiogram pending 4. She has chronically taken aspirin 81 mg daily at home. If the CTA studies show significant atherosclerotic disease or a UNEMPLOYMENT CLAIMS ADJUDICATOR occlusion then I would recommend she stay [...] 1 tab(s), Oral, B (more content not included)...[facility] Hospital[facility] above:Result Comment: Electronically Signed By: Nery Mace RN\.br\Date and Time Signed: 03/07/24 07:04 EST\.br\Electronically Co-Signed By: Abdulkadir Amaro DO\.br\Date and Time Co-Signed: 03/07/24 09:43 [id number] NoteInterdisciplinary Note - PT PT Evaluation done this date. Pt. with on AM-PAC this date. No further PT needs but may benefit from outpatient OT for vision issues.[facility]12[facility] NoteHistory and Physical Chief Complaint Pt to [...] the ED on the advice of her row boss due to visual field deficits and concern for CVA. The patient has an unusual recent medical course. She had an outpatient workup per her grain origination specialist with a Holter monitor late in December. [...] they took her to the ED in [place] due to a severe headache. Workup was [...] the left eye. She presented to her row boss today for evaluation of her vision and [...] 15:17:00) Lymph Auto: 25 % (03/06/24 15:17:00) Clinch Auto: 10.2 % (03/06/24 15:17:00) Eos Auto: 1 % (03/06/24 15:17:00) Basophil Auto: 0.8 % (03/06/24 15:17:00) Neutro Absolute: 5.4 E9/L (03/06/24 15:17:00) Lymph Absolute: 2.2 E9/L (03/06/24 15:17:00) Clinch Absolute: 0.9 E9/L (03/06/24 15:17:00) Eos Absolute: [...] 15:17:00) CO2: 29 mmol/L (more content not included)...[facility] HospitalComment on above:Result Comment: Electronically Signed By: Lian [...] minimal work up. Advised to go to [facility] for CVA workup documented in this encounterEastern Missouri State [id number] History of Present illness Narrative* Michael Ramos, - 01/18/2024 10:40 AM EDT Subjective Janelle Burt is a 83 y.o. female Chief Complaint Follow-up 83-year-old female returns for routine follow-up and is doing very well. She is overall improved from her hospitalization last year. She was hospitalized for transient atrial fibrillation, accelerated hypertension, small non-ST elevation CO. Catheterization reviewed today, at that time revealed [...] normal. Judgment: Judgment normal. Allergies Clonidine, Methylprednisolone, Dicjfvy-chz-uoi reductase inhibitors, Tati inhibitors, Amlodipine, Hydralazine, Lisinopril, [...] exam, discussion and plan. documented in this encounterBet[facility] Work Phone: 1(874) 687-329510-22-2024 Instructions* Patient Instructions* Leslie Spence LPN - [...] time of your visit. documented in this encounterBethesda North Hospital Work Phone: 1(857) 918-436509-20-2024 Evaluation note* Diagnosis Onset Date Resolution Status Admit Date CKD (chronic kidney disease) stage 3, GFR 30-59 ml/min acute 2023 10:51am Hypothyroid acute November 10:51am Rhinorrhea acute November 10:51am Impacted cerumen of both ears acute December 22, 2023 1:11pm [facility] Work Phone: 1(910) 306-418002-20-2024 History of Present illness Narrative* Michael Ramos [...] normal. Judgment: Judgment normal. Allergies Clonidine, Methylprednisolone, Kdsdsca-xcs-yhx reductase inhibitors, Tati inhibitors, Amlodipine, Hydralazine, Lisinopril, [...] exam, discussion and plan. documented in this encounterBet[facility] Hospital Work Phone: 1(476) 121-176402-20-2024 Instructions* Patient Instructions* Abi Veronica LPN - [...] time of your visit. documented in this encounterBet[facility]da [facility] Hospital Work Phone: 1(882) 689-532412-13-2023 Evaluation + Plan note* Assessment & Plan Note - RYANNE Neumann - 03/10/2023 1:57 PM ESTAssociated Problem(s): Chronic renal disease, stage III (CMS/HCC) Recent creatinine 1.4 Follows annually with nephrology [facility] Work Phone: 1(616) 887-112612-13-2023 Evaluation + Plan note* Assessment & Plan Note - RYANNE Neumann - 03/10/2023 1:57 PM ESTAssociated Problem(s): Cardiac and Vasculature January 2023 hospitalization due to jaw pain and accelerated hypertension January 28, 2023 cardiac cath with insignificant coronary artery disease (No formal report, taken from discharge summary) [facility] Work Phone: 1([phone]) 663-142912-13-2023 Evaluation + Plan note* Assessment & Plan Note - RYANNE Neumann - 03/10/2023 1:57 PM ESTAssociated Problem(s): Paroxysmal atrial fibrillation (CMS/HCC) Remote history of transient event Recurrent transient atrial fibrillation during January 2023 hospitalization Reports being symptomatic and shaking inside Denies any recurrence [facility] Work Phone: [phone]) 899-801812-13-2023 Miscellaneous Notes* Assessment & Plan Note - [...] office with recent changes documented in this encounterBethesda North Hospital Work Phone: 1([phone]) 936-609212-13-2023 Evaluation + Plan note* Assessment & Plan Note - RYANNE Neumann - 03/10/2023 1:56 PM ESTAssociated Problem(s): Accelerated hypertension Optimal in office with recent changes [facility] Work Phone: [phone] 489-363312-13-2023 History of Present illness Narrative* RYANNE Neumann - 03/10/2023 10:30 AM EST Chief Complaint Getting used to my blood pressure Reason for Visit Patient presents to the office today for outpatient follow-up for hospital follow-up. Last evaluated in clinic by Dr. Ramos December 2022. Patient was recently hospitalized at [facility]. The patient was seen in Cardiology consult with subsequent cardiovascular management by [facility]. Hospitalization records have been reviewed. Reason for Cardiology Consultation: Jaw pain, accelerated hypertension transient atrial fibrillation. Consulting Reagent Tender: Dr. Ramos Cardiovascular testing: Cardiac catheterization Changes [...] is in agreement to proceed with 30-day [facility] to assess for A-fib burden. Patient reports [...] Reactions Clonidine Shortness of breath Methylprednisolone Anaphylaxis Amkqfel-Vfi-Tai Reductase Inhibitors Myalgia Tati Inhibitors Rash Amlodipine [...] Dr. Ramos 8 weeks Meera Avalos MSN, [employer], PMHNP-[facility] Please excuse any errors in grammar or translation related to this dictation. Voice recognition software was utilized to prepare this document. documented in this [facility] Work Phone: 1(696) 899-572712-13-2023 Instructions* Patient Instructions* RYANNE Neumann - 03/10/2023 [...] Dr. Ramos 8 weeks documented in this encounterBethesda North Hospital Work Phone: 1([phone]) 707-675111-29-2023 Evaluation note* Encounter Date Diagnosis Assessment Notes Treatment Notes Treatment Clinical Notes Jan, Hypothyroidism, unspecified (ICD-10 - E03.9) [facility] Other 11-07-2023 Evaluation note* Encounter Date Diagnosis Assessment Notes Treatment Notes Treatment Clinical Notes Jan, Hypothyroidism, unspecified (ICD-10 - E03.9) Pt requests a med refill for chronic problem. 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 Has scheduled appt with Cardiology for followup. [facility] Other 11-03-2023 Hospital Discharge instructions Additional Instructions DISCHARGE INSTRUCTIONS FOR CARDIAC IDENTIFICATION OFFICER PHONE NUMBER OF YOUR PHYSICIAN: [phone] PROCEDURE: Heart Cath The following instructions have [...] cold, numb, blue or white, call the grain origination specialist immediately. 4. ACTIVITY: You are advised to [...] bottle, follow the instructions on the bottle. [facility] is not responsible for incorrect prescription information provided by the patient during their visit. Do not stop your medications without consulting your health care provider. Please take the list with you to your next doctor's appointment.[facility] Work Phone: 1(578) 310-195111-02-2023 Progress note Author Elsa Amin [facility] January 28, 2023 3:27pm Note Date/Time January 28, 2023 3 :27[facility] ENTER [address] [place] [address] Hospitalist Progress Note Signed Patient: Janelle Burt MR#: [id number] : 1940 Acct:[id number] Age/Sex: 82 / F Adm Date: 3 Loc: 3T Room: [address] [place] [address] Type: ADM IN Attending Dr: Elsa Amin [...] Medrol] Allergy (Verified 01/27/23 08:01) Unknown Reaction Jiaqviq-TNM-MoX Reductase Inhibitor [Hzpmzgk-Ayp-Xnf Reductase Inhibitor] Allergy (Verified 01/27/23 08:01) Unknown [...] fibrillation. Repeat ECG 1 hour later showed lutheran of sinus rhythm with first-degree AV block. Chest x-ray showed linear scarring at the left lung base. -QMK8OD7-FUVq equals 5. Recommend anticoagulation. -BNP elevated to [...] signed by Elsa Amin MD> 01/28/23 1527 [facility] Work Phone: [phone]) 965-992311-02-2023 [facility] Consult note Author Sherron Ramos [facility] January 27, 2023 3:48pm Note Date/Time January 27, 2023 3 :36pm [facility] ENTER [address] [place] [address] Cardiology Consult Note Signed Patient: Janelle Burt MR#: [id number] : 1940 Acct:[id number] Age/Sex: 82 / F Adm Date: 3 Loc: 3T Room: [address] [place] [address] Type: ADM INOo Attending Dr: Elsa Amin [...] mild coronary disease by remote heart catheterization [id number] which included renal angiography with no evidence [...] make up place for her on the [employer] schedule tomorrow; if she declines we will arrange outpatient stress imaging on appropriate medical therapy. Review of Systems Review of Systems All other systems reviewed & are negative unless noted below or in HPI Cardiovascular Cardiovascular: Reports as per HPI and Reports radiating jaw, neck or arm pain [facility] Medical History (Updated 01/27/23 @ 15:48 [...] Medrol] Allergy (Verified 01/27/23 08:01) Unknown Reaction Caquhiw-EQT-BsZ Reductase Inhibitor [Vmmudrf-Jro-Sny Reductase Inhibitor] Allergy (Verified 01/27/23 08:01) Unknown [...] x10E3/uL Lymph # (Auto) 1.6 (1.00-4.8) x10E3/uL Clinch # (Auto) 0.5 (0.0-0.8) x10E3/uL Eos # [...] 01/27/23 1548 [facility] Work Phone: [phone] 782-251211-01-2023 History and physical note Author Elsa Amin [facility] January 27, 2023 2:57pm Note Date/Time January 27, 2023 2 :57pm [facility] [address] [place] [address] Hospitalist H&P Signed Patient: Janelle Burt MR#: [id number] : 1940 Acct:[id number] Age/Sex: 82 / F Adm Date: 3 Loc: Room: [address] [place] [address] Type: ADM INOo Attending Dr: Elsa Amin [...] to sinus rhythm with first-degree AV block. YAR6FE0-LNTr equals 5. She was admitted for further observation and cardiology evaluation. Review of Systems Review of Systems All other systems reviewed & are negative unless noted below or in HPI Review of systems: Neuro: Reports numbness/tingling in extremities. Denies dizziness/lightheadedness Pulmonary: Denies dyspnea, cough, wheezing. Cardiac: Denies chest pain/pressure, edema, palpitations. GI: Denies abdominal pain, N/V, constipation and diarrhea [facility] Medical History (Updated 01/27/23 @ 11:21 [...] Medrol] Allergy (Verified 01/27/23 08:01) Unknown Reaction Rnwckws-FTR-RsB Reductase Inhibitor [Ixljfaw-Jam-Pwy Reductase Inhibitor] Allergy (Verified 01/27/23 08:01) Unknown [...] % (Auto) 23.7 % (.) 01/27/23 08:12 Clinch % (Auto) 7.4 % (.) 01/27/23 08:12 Eos % (Auto) 1.7 % (.) 01/27/23 08:12 Baso % (Auto) 1.0 % (.) 01/27/23 08:12 Nucleat RBC Rel Count 0.1 /100 WBC (0-0.5) 01/27/23 08:12 Neut # (Auto) 4.6 x10E3/uL (1.8-7.7) 01/27/23 08:12 Lymph # (Auto) 1.6 x10E3/uL (1.00-4.8) 01/27/23 08:12 Clinch # (Auto) 0.5 x10E3/uL (0.0-0.8) 01/27/23 08:12 [...] fibrillation. Repeat ECG 1 hour later showed lutheran of sinus rhythm with first-degree AV block. Chest x-ray showed linear scarring at the left lung base. -[id number]-XDZx equals 5. Recommend anticoagulation. -BNP elevated to [...] <Electronically signed by Elsa Amin MD> 01/27/23 3954 [facility] Work Phone: [phone]) 342-739610-09-2023 Evaluation note* Encounter Date Diagnosis Assessment Notes [...] PCP for lipid profile and LFTs monitoring [facility] Other 08-08-2023 Evaluation note* Encounter Date Diagnosis [...] adequately controlled. Oct, Other She is establis [facility] w podiatry for her foot fracture. [facility] Other 03-16-2023 Evaluation note* Encounter Date Diagnosis [...] supplement. We will continue to monitor PTH. [facility] Other 09-12-2022 Evaluation note* Encounter Date Diagnosis [...] supplement. We will continue to monitor PTH. [facility] Other 03-03-2022 Evaluation note* Encounter Date Diagnosis [...] primary polydipsia. She drinks plenty of fluids. [facility] Other Evaluation noteNo assessment information available [facility] Work Phone: Evaluation note* Diagnosis Onset Date Resolution Status Atrial fibrillation acute Back pain with radiation acu te Hypertension acute Hypothyroid acute [facility] Work Phone: Evaluation note* Diagnosis Onset Date Resolution Status Atrial fibrillation acute Back pain with radiation acu te Chest pain acute Elevated troponin acute Hypertension acute Hypothyroid acute NSTEMI (non-ST elevated myocardial infarction) acute [facility] Work Phone: Evaluation noteNo InformationNort [employer] Other Evaluation note* Diagnosis Paroxysmal atrial fibrillation (CMS/HCC)- Primary Atrial fibrillation Chest pain, unspecified type Accelerated hypertension Essential hypertension, malignant Stage 3a chronic kidney disease (CMS/HCC) BMI 22.0-22.9, adult documented in this encounter [facility] Work Phone: Evaluation note* Diagnosis Paroxysmal atrial fibrillation (CMS/HCC) Atrial fibrillation Accelerated hypertension Essential hypertension, malignant Mixed hyperlipidemia Stage 3b chronic kidney disease (CMS/HCC) documented in this encounter [facility] Work Phone: Evaluation note* Diagnosis Onset Date Resolution Status Atrial fibrillation acute CKD (chronic kidney disease) stage 3, GFR 30-59 ml/min acute Hyperlipidemia acute [id number] acute Hyponatremia acute Hypoparathyroidism acute [facility] Work Phone: Evaluation note* Diagnosis Onset Date Resolution Status Hypothyroid acute [facility] Work Phone: Evaluation note* Diagnosis Paroxysmal atrial fibrillation (Multi)- Primary Atrial fibrillation Chest pain, unspecified type Accelerated hypertension Essential hypertension, malignant Stage 3a chronic kidney disease (Multi) BMI 22.0-22.9, adult Accelerated hypertension Essential hypertension, malignant ASHD (arteriosclerotic heart disease) Coronary atherosclerosis of unspecified type of vessel, [place] or graft Paroxysmal atrial fibrillation (Multi) Atrial fibrillation Former smoker Personal history of tobacco use, presenting hazards to health Body mass index (BMI) 23.0-23.9, adult documented in this encounter [facility] Work Phone: Evaluation note* Diagnosis Homonymous hemianopia, left- Primary Cerebrovascular accident (CVA), unspecified mechanism (CMS/HCC) documented in this encounter [facility]* Diagnosis Paroxysmal atrial fibrillation (Multi)- Primary Atrial fibrillation Chest pain, unspecified type Accelerated hypertension Essential hypertension, malignant Stage 3a chronic kidney disease (Multi) BMI 22.0-22.9, adult Accelerated hypertension Essential hypertension, malignant Cerebrovascular accident (CVA), unspecified mechanism (Multi) correction current use of anticoagulant therapy Paroxysmal atrial fibrillation (Multi) Atrial fibrillation ASHD (arteriosclerotic heart disease) Coronary atherosclerosis of unspecified type of vessel, [place] or graft Mixed hyperlipidemia BMI 22.0-22.9, adult Former smoker Personal history of tobacco use, presenting hazards to health TATI inhibitor intolerance Statin intolerance documented in this encounter [facility] Work Phone: Evaluation note* Diagnosis Ischemic stroke (CMS/HCC)- Primary Visual field defect Unspecified visual field defect Hypertension, unspecified type ([facility]) Encounter for medication monitoring Encounter for therapeutic drug monitoring Paroxysmal atrial fibrillation ([facility]) Atrial fibrillation Altered mental status, unspecified altered mental status type documented in this encounter [facility] HealthcareEvaluation note* Diagnosis Paroxysmal atrial fibrillation (Multi)- Primary Atrial fibrillation Chest pain, unspecified type Accelerated hypertension Essential hypertension, malignant Stage 3a chronic kidney disease (Multi) BMI 22.0-22.9, adult Accelerated hypertension Essential hypertension, malignant documented in this encounter [facility] Work Phone: Evaluation note* Diagnosis Homonymous hemianopia, left- Primary Right posterior capsular opacification Unspecified after-cataract Dry eyes Unspecified tear film insufficiency documented in this encounter [facility] HealthcareEvaluation note* Diagnosis Paroxysmal atrial fibrillation (Multi)- Primary Atrial fibrillation Chest pain, unspecified type Accelerated hypertension Essential hypertension, malignant Stage 3a chronic kidney disease (Multi) BMI 22.0-22.9, adult ASHD (arteriosclerotic heart disease) Coronary atherosclerosis of unspecified type of vessel, [place] or graft Paroxysmal atrial fibrillation (Multi) Atrial fibrillation Renal artery stenosis Atherosclerosis of renal artery correction current use of anticoagulant therapy Essential hypertension Unspecified essential hypertension BMI 23.0-23.9, adult Former smoker Personal history of tobacco use, presenting hazards to health documented in this encounter [facility] Work Phone: Evaluation note* Diagnosis Paroxysmal atrial fibrillation (Multi)- Primary Atrial fibrillation Chest pain, unspecified type Accelerated hypertension Essential hypertension, malignant Stage 3a chronic kidney disease (Multi) BMI 22.0-22.9, adult Essential hypertension Unspecified essential hypertension Former smoker Personal history of tobacco use, presenting hazards to health BMI 22.0-22.9, adult documented in this encounter [facility] Work Phone: Evaluation note* Diagnosis Onset Date Resolution Status Admit Date CVA (cerebral vascular accident) acu te January 03, 2025 1:05pm Metabolic encephalopathy acute January 03, 2025 1:05pm Seizure acute January 03, 2 025 1:05pm UTI (urinary tract infection) acute January 03, 2025 1:05pm [facility] Work Phone: History and physical note Author Jon Felder [facility] Note Date/Time July 23, 2024 1:4 8am [facility] EN[facility] [address] [place] [address] Hospitalist H&P Signed Patient: Janelle Burt MR#: [id number] : 1940 Acct:[id number] Age/Sex: 83 / F Adm Date: 5 Loc: Room: [address] [place] [address] Type: ADM IN Attending Dr: Jon Felder [...] status and Unobtainable due to mental condition [facility] Medical History Ischemic cerebral vascular accident (CVA) [...] stage 3 unspecified Cervical cancer CAD in tonawanda artery Bronchitis, not specified as acute or [...] Allergy (Unknown, Verified 07/22/24 21:12) Unknown Reaction Zqsaxmy-BQP-YmF Reductase Inhibitor (Zlllrmd-Ieg-Nom Reductase Inhibitor) Allergy (Unknown, Verified 07/22/24 21:12) [...] % (Auto) 17.6 % (.) 07/22/24 21:10 Clinch % (Auto) 5.3 % (.) 07/22/24 21:10 Eos % (Auto) 0.9 % (.) 07/22/24 21:10 Baso % (Auto) 0.8 % (.) 04/26/25 21:10 Nucleat RBC Rel Count 0.1 /100 WBC (0-0.5) 07/22/24 21:10 Neut # (Auto) 7.4 x10E3/uL (1.8-7.7) 07/22/24 21:10 Lymph # (Auto) 1.7 x10E3/uL (1.00-4.8) 07/22/24 21:10 Clinch # (Auto) 0.5 x10E3/uL (0.0-0.8) 07/22/24 21:10 [...] pH 8.0 (5.0-9.0) 07/22/24 21:55 Ur Specific [place] 1.025 (1.001-1.030) 07/22/24 21:55 Urine Protein Negative [...] 75 Documented By: Jon Felder MD 07/22/24 2317 Signed By: <Electronically signed by Jon Felder MD> 07/23/24 0147 [facility] Work Phone: History general Narrative - Reported* Type Description Date Medical History hyperlipidemia Medical History hypertension Medical History cervical cancer Surgical History partial hysterectomy Surgical History appendectomy Surgical History cataract Hospitalization History SEE ABOVE [facility] Other [facility] general Narrative - Reported* Type Description Date Medical History hyperlipidemia Medical History hypertension Medical History cervical cancer Surgical History partial hysterectomy Surgical History appendectomy Surgical History cataract Surgical History TORN RETINA IN LEFT EYE Hospitalization History SEE ABOVE [facility] Other Hisrs[facility] general Narrative - Reported* Type Description Date Medical History hyperlipidemia Medical History hypertension Medical History cervical cancer Surgical History partial hysterectomy Surgical History appendectomy Surgical History cataract Surgical History TORN RETINA IN LEFT EYE Surgical History Heart Cath 01/2023 Hospitalization History SEE ABOVE Hospitalization History [facility] 01/2023 [facility] Other History of Present illness Narrative* The [...] sporadically. Blood pressure control has been good. [facility] DO Work Phone: Hospital course Narrative No data available for this section [facility] Progress note No data available for this section [facility] Reason for referral (narrative)* Consultation (Routine) - Authorized Specialty Diagnoses / Procedures Referred By Contac t Referred To Contact Cardiology Diagnoses Paroxysmal atrial fibrillation (CMS/HCC) Procedures Follow Up In Cardiology Meera Avalos [employer] [address] [place] [address] Michael Ramos, DO [address] [place] [address] Referral ID Status Reason Start Date Expiration Date V isits Requested Visits Authorized [id number] Authorized 03/10/2023 03/09/2024 1 1 * Cardiovascular (Routine) - Pending Review Specialty Diagnoses / Procedures Referred By Contac t Referred To Contact Cardiology Diagnoses Paroxysmal atrial fibrillation (CMS/HCC) 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 Meera Avalos [employer] [address] [place] [address] Referral ID Status Reason Start Date Expiration Date V isits Requested Visits Authorized [id number] Pending Review 03/10/2023 03/09/2024 1 1 [facility] Work Phone: Remuie for referral (narrative)* Consultation (Routine) - Authorized Specialty Diagnoses / Procedures Referred By Contac t Referred To Contact Cardiology Diagnoses Paroxysmal atrial fibrillation (CMS/HCC) Procedures Follow Up In Cardiology Michael Ramos, DO [address] [place] [address] Meera Avalos [employer] [address] [place] [address] Referral ID Status Reason Start Date Expiration Date V isits Requested Visits Authorized [id number] Authorized 05/18/2023 05/17/2024 1 1 [facility] Work Phone: Reason for referral (narrative)No reason for referral information availableOhio [facility] Hospital Work Phone: Chief Complaint JANLELE BURT is being seen for an annual [...] sister has been taking care of her [employer]. She has underlying accelerated hypertension, known chronic [...] sister has been taking care of her [employer]. She has underlying accelerated hypertension, known chronic [...] disease) stage 3, GFR 30-59 ml/min Hyperlipidemia [id number] Hyponatremia Hypoparathyroidism Chief Complaint routine Reason for [...] Date Amb Documentation March 08, 2024 9:54am [facility] follow up/ stroke March 14 1:37pm RENAL [...] 3:16pm Amb Documentation August 03, 2024 8:49am [facility] f/u-HIGH RISK August 07, 2024 1:49p m [...] 3:16pm Amb Documentation August 03, 2024 8:49am [facility] f/u-HIGH RISK August 07, 2024 1:49p m [...] 3:16pm Amb Documentation August 03, 2024 8:49am [facility] f/u-HIGH RISK August 07, 2024 1:49p m Amb Documentation August 16, 2024 9:04a m Amb Documentation August 16, 2024 9:08a m [facility] f/u-HIGH RISK August 29, 2024 [...] section and content) Reason Comments Hospital Follow-up [facility] 01/28 Specialty Diagnoses / Procedures Referred By Contac t Referred To Contact Cardiology Diagnoses Chest pain, unspecified type Procedures Follow Up In Cardiology Michael Ramos, DO [facility] [address], [address] [address] Michael Ramos, DO [facility] [address], [address] [address] Referral ID Status Reason Start Date Expiration Date V isits Requested Visits Authorized [id number] Authorized 01/28/2023 01/28/2024 1 1 Reason Comments Follow-up Never had HANNA comple chacho. Specialty Diagnoses / Procedures Referred By Contac t Referred To Contact Cardiology Diagnoses Paroxysmal atrial fibrillation (CMS/HCC) Procedures Follow Up In Cardiology Meera Avalos, [employer] [facility] 2, [address] [address] Michael Ramos, DO [facility] [address], [address] [address] Referral ID Status Reason Start Date Expiration Date V isits Requested Visits Authorized [id number] Authorized 03/10/2023 03/09/2024 1 1 Reason Comments Follow-up 1 year Specialty Diagnoses / Procedures Referred By Contac t Referred To Contact Cardiology Diagnoses Accelerated hypertension Procedures Follow Up In Cardiology Michael Ramos DO Phone: tel: fax: Michael Ramos DO Phone: tel: fax: Referral ID Status Reason Start Date Expiration Date V isits Requested Visits Authorized [id number] Authorized 01/14/2023 01/14/2024 1 1 Reason Comments Decreased Visual Acuity Reason Comments Follow-up 10 w bp Blood Pressure Check Specialty Diagnoses / Procedures Referred By Contac t Referred To Contact Cardiology Diagnoses Accelerated hypertension Procedures Follow Up In Cardiology RichardMichael, DO [facility] [address], [address] [address] Phone: tel: fax: Michael Ramos, DO [facility] [address], [address] [address] Phone: tel: fax: Referral ID Status Reason Start Date Expiration Date V isits Requested Visits Authorized [id number] Authorized 01/18/2024 01/17/2025 1 1 Reason Comments Hospital Follow-up Stroke Reason Comments Blood Pressure Check Specialty Diagnoses / Procedures Referred By Contac t Referred To Contact Cardiology Diagnoses Accelerated hypertension Procedures Follow Up In Cardiology Michael Ramos, DO [facility] [address], [address] [address] Phone: tel: fax: Michael Ramos, DO [facility] [address], [address] [address] Phone: tel: fax: Referral ID Status Reason Start Date Expiration Date V isits Requested Visits Authorized [id number] Authorized 04/05/2024 04/05/2025 1 1 Reason Comments Loss of Vision Reason Comments Follow-up 8 month arterioscler otic heart diease Specialty Diagnoses / Procedures Referred By Contac t Referred To Contact Cardiology Diagnoses ASHD (arteriosclerotic heart disease) Procedures Follow Up In Cardiology Michael Ramos, DO [facility] [address], [address] [address] Phone: tel: fax: Michael Ramos, DO [facility] 2, [address] [address] Phone: tel: fax: Referral ID Status Reason Start Date Expiration Date V isits Requested Visits Authorized [id number] Authorized 01/18/2024 01/17/2025 1 1 Reason Comments Follow-up 8 week BP check Specialty Diagnoses / Procedures Referred By Contac t Referred To Contact Cardiology Diagnoses Essential hypertension Procedures Follow Up In Cardiology Michael Ramos, DO [facility] 2, [address] [address] Phone: tel: fax: Michael Ramos, [facility] [address], [address] [place] [address] Phone: tel: fax: Referral ID Status Reason Start Date Expiration Date V isits Requested Visits Authorized [id number] Authorized 09/27/2024 09/27/2025 1 1 Care Teams [...] Start: June 29, 2024 Amanda Bray , [employer] Attending Provider Active Start: June 29, 2024 [...] End: July 25, 2024 Amanda Bray , [employer] Other Provider Active Start: July 22, 2024 [...] rt: July 23, 2024 Amanda Bray , [employer] Other Provider Active Start: July 23, 2024 Sanam Barrientos [employer] ACNP-BC Other Provider Active Start: July 23, [...] rt: July 24, 2024 Amanda Bray , [employer] Other Provider Active Start: July 24, 2024 Sanam Barrientos [employer] ACNP-BC Other Provider Active Start: July 24, [...] Wilson MD Other Provider Active Start: Ap [facility] 2024 Jhon Abreu MD Other Provider Active [...] Sta rt: July 24, 2024 Amanda Bray APRN-HOSTESS HOST-C Other Provider Active Start: July 24, 2024 [...] Wilson MD Other Provider Active Start: Ap [facility] 2024 Jhon Abreu MD Attending Provider, Other [...] , DO Other Provider Active Start: Ap [facility] 2024 End: August 02, 2024 Maverick Lopez [...] Provider Active Start: Jun Ivette Case , [employer] Other Provider Active St art: July 26, [...] Start: M ay 2024 Kayla Lacy , [employer] Other Provider Active Start: August 02, 2024 [...] Start: August 02, 2024 Ivette Case , [employer] Other Provider Active St art: August 02, 2024 Jose Cochran , [employer] Other Provider Active Star t: August 02, [...] MD Other Provider Active Camryn Bosch , [facility] Other Provider Active Svitlana Reyes MD Other Provider Active Team Status: Inactive Member Role Status Dates Antonino Gustafson MD Primary Care Provider Active Ortiz Cota , DO Emergency Provider Active Team Status: Active Member Role Status Dates Antonino Gustafson MD Primary Care Provider Active Willie Lyon , DO Emergency Provider Active Elsa Amin MD Admit Provider, Attending Provider Active Flight Dynamicist Relationship Specialty Start Date End Date Antonino Gustafson MD PCP - General 03/29/1998 [employer] Relationship Specialty Start Date End Date Antonino Gustafson MD [facility] General 03/29/1998 Team Status: Inactive Member Role Status Dates Antonino Gustafson MD Primary Care Provider Active Start: December 22, 2023 End: December 22, 2023 Faby Lira APRN Attending Provider Active S tart: December 22, 2023 End: December 22, 2023 Flight [employer]ist Relationship Specialty Start Date End Date Antonino Gustafson MD [address] [place] [id number] [facility] General 03/29/1998 Team Status: Active Member [...] February 17, 2024 End: February 17, 2024 Flight Dynamicist Relationship Specialty Start Date End Date Antonino Gustafson MD [address] [place] [phone] PCP - General Family Medicine 03/06/24 Flight Dynamicist Relationship Specialty Start Date End Date Antonino Gustafson MD [address] [place] [facility] [place] [phone] PCP - General Family Medicine 03/06/24 Flight Dynamicist Relationship Specialty Start Date End Date Antonino Gustafson MD [address] [place] [facility] [place] [address] PCP - General Family Medicine 03/06/24 Flight Dynamicist Relationship Specialty Start Date End Date Antonino Gustafson MD [address] [place] [place] [address] PCP - General 03/29/1998 Flight Dynamicist Relationship Specialty Start Date End Date Antonino Gustafson MD [address] [place] [facility] [place] [phone] PCP - General Family Medicine 03/06/24 Flight Dynamicist Relationship Specialty Start Date End Date Antonino Gustafson MD [address] [place] [place] [address] PCP - General 03/29/1998 Flight [employer]ist Relationship Specialty Start Date End Date Antonino Gustafson MD [address] [place] [facility] [place] [phone] PCP - General Family Medicine 03/06/24 Flight Dynamicist Relationship Specialty Start Date End Date Antonino Gustafson MD [address] [place] [facility] [place] [phone] PCP - General Family Medicine 03/06/24 Flight Dynamicist Relationship Specialty Start Date End Date Antonino Gustafson MD [address] [facility] [place] [phone] PCP - General Family Medicine 03/06/24 Team [...] art: July 23, 2024 Marina Burt , [employer] Other Provider Active Sta rt: July 23, 2024 Amanda Bray , [employer] Other Provider Active Start: July 23, 2024 [...] Start: July 24, 2024 Rochelle Greene , [employer] Other Provider Active St art: July 24, 2024 Marina Burt , [employer] Other Provider Active Sta rt: July 24, 2024 Amanda Bray [employer] Other Provider Active Start: July 24, 2024 Sanam Barrientos [employer] ACNP-BC Other Provider Active Start: July 24, [...] St art: July 24, 2024 Marina Burt [employer] Other Provider Active Sta rt: July 24, 2024 Amanda Bray 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-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-C Other Provider Active Start: July 24, 2024 [...] Active Start: Apr il 2024 Ivette Case [employer] Other Provider Active St art: July 26, 2024 Jose Cochran [employer] Other Provider Active Star t: July 26, [...] Active Start: M ay 2024 Cleo Mcfadden , LILIANE Other Provider Active Start: Ma [...] Start: August 02, 2024 Stu Alegria , DO Other Provider Active Start: [...] September 25, 2024 End: September 25, 2024 Flight [employer]ist Relationship Specialty Start Date End Date Antonino Gustafson MD [address] [place] [address] [place] [address] PCP - General 03/29/1998 Team Status: Inactive [...] section and content) DATE CREATED AUTHOR 03/21/2022 [facility] DATE CREATED AUTHOR AUTHOR'S ORGANIZ ATION 03/21/2022 [employer] DATE CREATED AUTHOR AUTHOR'S ORGANIZ ATION 06/05/2022 [facility] DATE CREATED AUTHOR AUTHOR'S ORGANIZ ATION 03/09/2024 Parada Abel [facility] DATE CREATED AUTHOR AUTHOR'S ORGANIZ ATION 03/10/2024 Parada Emmons [facility] DATE CREATED AUTHOR AUTHOR'S ORGANIZ ATION 03/11/2024 Parada Emmons [facility] DATE CREATED AUTHOR AUTHOR'S ORGANIZ ATION 08/11/2024 [facility] DATE CREATED AUTHOR AUTHOR'S ORGANIZ ATION 09/05/2024 [facility] EPIC DATE CREATED AUTHOR AUTHOR'S ORGANIZ ATION 11/22/2024 [facility] FOR RECORDS PERTAINING TO PATIENTS WHO [...] BE BASED ON THE PRIMARY CLINICAL RECORDS. [facility] [employer] [facility]. provides no warranty or guarantee of the accuracy or completeness of information in this document.
--- OUTSIDE RECORDS SUMMARY | 2025-01-10 00:42 | XMS_ITS | CCD ---
Author Organization [facility] Care Team Providers Care Draw Operator Name Role Phone Antonino Gustafson Unavailable Unavailable Unavailable Bhavna, Liliya Unavailable MD Antonino Gustafson Primary Care Provider [phone] DO Ortiz Cota Emergency Provider Sj, Dr. [...] Unavailable MD Antonino Gustafson Primary Care Provider [phone] DO Willie Lyon Emergency Provider MD Elsa [...] Provider MD Adrienne Oconnor Other Provider Danitza [facility] Camryn Harris Other Provider [phone] MD Svitlana Reyes Other Provider [phone] Antonino Gustafson MD Primary Care Provider Antonino Gustafson MD Primary Care Provider Antonino Gustafson MD Primary Care Provider Antonino Gustafson MD Primary Care Provider Rolando Zarco Attending Unavailable Willie Kearney Attending Unavailable Willie Kearney Admitting Unavailable Leverett, Kamar Consulting Unavailable MD Kamar Escobar Consulting Unavailable Leverett, Kamar Consulting Unavailable Leverett, Kamar Consulting Unavailable Leverett, Kamar Consulting Unavailable Leverett, Kamar Consulting Unavailable Leverett, Kamar Consulting Unavailable Leverett, Kamar Consulting Unavailable Leverett, Kamar Consulting Unavailable Willie Kearney Attending Unavailable Shawn, Kamar Consulting Unavailable Willie Kearney Admitting Unavailable MD Kamar Escobar Consulting Unavailable Leverett, Kamar Consulting Unavailable Leverett, Kamar Consulting Unavailable Leverett, Kamar Consulting Unavailable Leverett, Kamar Consulting Unavailable Leverett, Kamar Consulting Unavailable Leverett, Kamar Consulting Unavailable Leverett, Kamar Consulting Unavailable ANTONINO GUSTAFSON Primary Care Physician [phone] Michael Worthington Attending Unavailable Antonino Gustafson MD [...] Provider Rochelle Greene APRN Other Provider Shorty HAIR BALER-C, Marina Melissa Other Provider [phone] Asa YU-PRE FABRICATOR-C, Amanda Rand Other Provider Sylvie Florez DO Other Provider Jenny Wilson MD Other Provider Jhon Abreu MD Other Provider Enedina Cain APRN Other Provider Belelinor CHAN, Shawn L Other Provider [phone] Dev Jacobsen MD Other Provider Dev Jacobsen MD Admit Provider Dev Jacobsen [...] Provider Bimal Green MD Other Provider Manpreet HAIR BALER-C, Ivette Kapadia Other Provider Dimas YU, Jose Horn Other Provider Unavailable Curly Smalls MD Other Provider Yousuf Gracia MD Other Provider Jaxson Weller MD Other Provider Cherry MORA, Zora Other Provider Unavailable Lino Lala MD Other Provider Michelle Stevens DO Other Provider Maverick Lopez DO Other Provider Luz Marina Gonzalez APRN Other Provider Chico Aragon DO Other Provider [phone] Stephanie MOAR, Tamica Horn Other Provider Darlyn Avalos APRN [...] Provider Michelle MORA, Steve Melissa Other Provider [phone] Jovani Sibley MD Other Provider Yumi Dover APRN Other Provider [phone] Christine Perez APRN Other Provider Johnna MOMIN, Rose Other Provider Unavailable Dev Jacobsen Attending UnavailLucía Yanes Consulting Unavailable Dev Jacobsen Admitting UnavailAntonino Cr Primary Care Unavailable Gearann-marie, Nancy Consulting Unavailable Denslow, Yolanda Consulting Unavailable Joel, Rachel Consulting Unavailable Ross, Cleo Consulting Unavailable Brady, Neeru Consulting Unavailable Massouh, Rafik Consulting Unavailable Krys, Ronobir Consulting Unavailable Alice, Robin Consulting Unavailable Duane uHnter Consulting UnavailJerome Mehta Consulting Unavailable Gloria Deleon [...] Consulting UnavailAntonino Cr MD Primary Care Provider [phone] PALMA RODRIGUEZ Attending Unavailable PALMA RODRIGUEZ Attending Unavailable AMANDA BRAY Attending Unavailable ANTONINO GUSTAFSON Referring Unavailable Antonino Gustafson MD Primary Care Provider Asa VARGASN-PRE FABRICATOR-C, Amanda Rand Attending Provider Jhony Davis MD [...] Provider Chris MORA, Aneudy Harris Other Provider Jovani Sibley MD Other Provider Sylvie Florez DO Attending Provider Jhon Abreu MD Attending Provider Enedina Cain APRN Attending Provider Nicole Lang CMA Attending Provider UnavailAntonino Cr MD Attending Provider [phone] Nancie Leigh DO Attending Provider MICHAEL RAMOS [...] Care Provider Nancie Leigh DO Attending Provider Allergies Allergy Classification Reported Allergen(s) Allergy Type Date of Onset Reaction(s) Facility (20 sources) amLODIPine; Translations: [Norvasc] Drug Allergy 023 Itching [facility] (11 sources) Angiotensin Converting Enzyme (Tati) Inhibitors; Translations: [TATI Inhibitors] Allergy to drug (finding) 023 [facility] 3 Repository (20 sources) cloNIDine; Translations: [Xchytxfk-PJR-4 PTWK] Drug Allergy 023 Shortness of breath [facility] 250 DO Work Phone: (13 sources) Hmg-Coa Reductase Inhibitors (Statins); Translations: [Statins] Allergy to drug (finding) Myalgia, Unknown [facility] 250 DO Work Phone: (20 sources) hydrALAZINE; Translations: [hydrALAZINE] Drug Allergy 022 Diarrhea [facility] (20 sources) Lisinopril; Translations: [lisinopril] Drug Allergy 022 Rash [facility] (10 sources) methylPREDNISolone; Translations: [Medrol (Nestor) TABS] Drug Allergy Anaphylaxis [facility] 250 DO Work Phone: (20 sources) Sulfamethoxazole; Translations: [sulfa] Drug Allergy 023 Rash [facility] 250 DO Work Phone: (20 sources) Ciprofloxacin Drug Allergy 024 Unknown, Comment:joint pain [facility] (8 sources) cloNIDine Drug Allergy Unknown [employer] Other (20 sources) methylPREDNISolone; Translations: [METHYLPREDNISOLONE] Drug Allergy 022 Anaphylaxis [facility] (18 sources) amLODIPine; Translations: [amlodipine] Drug Allergy 022 Unknown Reaction [facility] (18 sources) cloNIDine; Translations: [clonidine] Drug Allergy 022 Unknown Reaction [facility] (17 sources) Sulfonamides (Antibiotic); Translations: [Sulfa (Sulfonamide Antibiotics)] Allergy to substance Unknown Reaction [facility] (17 sources) Wpfdgqa-CLG-QhM Reductase Inhibitor; Translations: [Iyusvlj-PMZ-EyL Reductase Inhibitor] Allergy to substance Unknown Reaction [facility] (1 source) Amino Acids Drug Allergy [facility] Repository (1 source) amLODIPine Drug Allergy [facility] Repository (2 sources) black walnut pollen extract; Translations: [EJCPQYW-YRP-[place] REDUCTASE INHIBITORS] Drug Allergy [facility] Repository (1 source) hydrALAZINE Drug Allergy [facility] Repository (1 source) methylPREDNISolone Drug Allergy [facility] Repository (1 source) Sulfonamides (Antibiotic) Drug allergy (disorder) [facility] Repository (5 sources) Statins Depletion *DIETARY PRODUCTS/DIETARY MANAGE Propensity to adverse reactions Unknown [employer] [facility] [employer] Other (5 sources) Sulf-10 Drug allergy Unknown [employer] Other (7 sources) Angiotensin-convertin g enzyme inhibitor agent Drug Allergy 023 Rash [facility] (7 sources) HMG-CoA reductase inhibitor Drug Allergy 023 Myalgia [facility] Work Phone: (8 sources) Angiotensin-convertin g enzyme inhibitor agent Drug Allergy 023 Rash [facility] (8 sources) Simvastatin Allergy to substance [facility] (9 sources) Sulfamethoxazole; Translations: [SULFAMETHOXAZOLE] Allergy to substance 023 [facility] (8 sources) Sulfamethoxazole / Trimethoprim Drug Allergy [facility] (7 sources) No Known Medication Allergies; Translations: [No Known Medication Allergies] Propensity to adverse reactions (disorder) [facility] Repository (1 source) Ciprofloxacin Drug Allergy [facility] Repository (1 source) hydrALAZINE Drug Allergy [facility] Repository (1 source) Lisinopril Drug Allergy [facility] Repository (1 source) methylPREDNISolone Drug Allergy [facility] Repository Medications Current Medications Medication [...] days Active take 1 capsule by mo [facility] once daily before breakfast Levothyroxine Sodium [...] 1 spray(s) nasal route twice daily Ipratropium [place] 21 mcg (0.03 %) spray,non-aerosol Discontinued 2 [...] Coronary arteriosclerosis; Translations: [Atherosclerotic heart disease of [place] coronary artery without angina pectoris] Onset: 4 [...] Onset: 4 Chronic Unclassified (5 sources) A [facility] screening has identified you as FRAIL or [...] Four Ways to Beat the Frailty Risk [email or web address] -fra [email or web address] 08-01-2024 Unclassified (8 sources) Please call to schedule follow up appointment after discharged from Rehab. Unclassified (4 sources) Primary Care Provider Unclassified (4 sources) Follow up with rehab physician as needed Unclassified (2 sources) Dr Amaro saw while inpatient. [facility] 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; Translations: [MCFP (current) use of anticoagulants] Onset: 04-05-2024 Episodic Residual codes; unclassified (13 sources) Other specified health status; Translations: [Other drug allergy] Onset: 04-05-2024 04-05-2024 Episodic Unclassified (7 sources) Onset: 03-10-2023 Resolved: 01-18-2024 03-10-2023 Results Test Name Value Interpretation Reference Range Facility Perimetry studyon 09-04-2024 [facility] Radiology Study observation (narrative) [facility] Basic Metabolic PanelOrdered By: Jhon Abreu on 07-31-2024 Anion gap [Moles/Vol] 6.7 mmol/L 6.0-15.0 [facility] Comment on above: Performed By: #### C MP, CBC #### [facility] [address] Calcium [Mass/Vol] 8.8 mg/dL 8.6-10.3 [facility] Comment on above: Performed By: #### C MP, CBC #### [facility] [address] Chloride [Moles/Vol] 101 mmol/L 98-107 [facility] Comment on above: Performed By: #### C MP, CBC #### [facility] [address] CO2 [Moles/Vol] 29.2 mmol/L 21.0-31.0 [facility] Comment on above: Performed By: #### C MP, CBC #### [facility] [address] Creatinine [Mass/Vol] 0.96 mg/dL 0.60-1.20 [facility] Comment on above: Performed By: #### C MP, CBC #### [facility] [address] Glucose [Mass/Vol] 93 mg/dL 70-100 [facility] Comment on above: Result Comment: Alexis om Glucose Reference Range is dependent on time and content of last meal. Glucose of more than 200 mg/dL in a nonstressed, ambulatory subject supports the diagnosis of Diabetes Mellitus. ADA recommended reference range Performed By: #### C MP, CBC #### [facility] [address] ADA recommended refe rence rangeRandom Glucose Reference Range is dependent on time and content of last meal. Glucose of more than 200 mg/dL in a nonstressed, ambulatory subject supports the diagnosis of Diabetes Mellitus. Potassium [Moles/Vol] 3.9 mmol/L 3.5-5.1 [facility] Comment on above: Performed By: #### C MP, CBC #### [facility] [address] [place] [address] [place] Sodium [Moles/Vol] 133 mmol/L Low 136-145 [facility] Comment on above: Performed By: #### C MP, CBC #### [facility] [address] Urea nitrogen [Mass/Vol] 24 mg/dL 10-20 [facility] Comment on above: Performed By: #### C MP, CBC #### [facility] [address] Basic Metabolic Panelon Creatinine Clr Calc Pharmacy 37.67 Normal [facility] Comment on above: Result Comment: PERF ORMED BY: [place] [address] PATHOLOGIST WELDER OPERATOR KARAN TINSLEY M.D. Performed By: #### C MP, CBC #### [facility] [address] Estimated GFR 58.341 mL/Min Normal [facility] Comment on above: Performed By: #### C MP, CBC #### [facility] [address] Basophils Auto (Bld) [#/Vol] Ordered By: Jhon Abreu on 07-31-2024 Basophils (Bld) [#/Vol] Automated basophil count 0.0-0.2 [facility] Basophils/100 WBC Auto (Bld) Ordered By: Jhon Abreu on 07-31-2024 Basophils/100 WBC (Bld) Automated basophil % . [facility] Calcium [Mass/volume] in Ser um or PlasmaOrdered By: Jhon Abreu on 07-31-2024 Calcium [Mass/Vol] Calcium [Mass/volume ] in Serum or Plasma 8.6-10.3 [facility] Carbon dioxide, total [Moles /volume] in Serum or PlasmaOrdered By: Jhon Abreu on 07-31-2024 CO2 [Moles/Vol] Carbon dioxide, tota l [Moles/volume] in Serum or Plasma 21.0-31.0 [facility] Chloride [Moles/volume] in S lorraine or PlasmaOrdered By: Jhon Abreu on 07-31-2024 Chloride [Moles/Vol] Chloride [Moles/vol ume] in Serum or Plasma 98-107 [facility] Complete Blood Count Auto Di ffOrdered By: Jhon Abreu on 07-31-2024 Basophils (Bld) [#/Vol] 0.1 10*3/uL 0.0-0.2 [facility] Comment on above: Result Comment: PERF ORMED BY: [place] [address] PATHOLOGIST WELDER OPERATOR KARAN TINSLEY M.D. Performed By: #### C MP, CBC #### [address] Basophils/100 WBC (Bld) 0.9 % . [facility] Comment on above: Performed By: #### C MP, CBC #### [address] Eosinophils (Bld) [#/Vol] 0.3 10*3/uL 0.0-0.45 [facility] Comment on above: Performed By: #### C MP, CBC #### [address] Eosinophils/100 WBC (Bld) 4.0 % . [facility] Comment on above: Performed By: #### C MP, CBC #### [address] Erythrocyte distribution width (RBC) [Ratio] 13.5 % 11.9-15.3 [facility] Comment on above: Performed By: #### C MP, CBC #### [address] Hematocrit (Bld) [Volume fraction] 35.2 % 34.0-46.4 [facility] Comment on above: Performed By: #### C MP, CBC #### [address] Hemoglobin (Bld) [Mass/Vol] 12.2 g/dL 11.8-15.4 [facility] Comment on above: Performed By: #### C MP, CBC #### [facility] [address] Lymphocytes (Bld) [#/Vol] 1.8 10*3/uL 1.00-4.8 [facility] Comment on above: Performed By: #### C MP, CBC #### [address] Lymphocytes/100 WBC (Bld) 28.6 % . [facility] Comment on above: Performed By: #### C MP, CBC #### [address] MCH (RBC) [Entitic mass] 30.6 pg 24.7-34.3 [facility] Comment on above: Performed By: #### C MP, CBC #### [address] MCV (RBC) [Entitic vol] 88.6 fL 80-100 [facility] Comment on above: Performed By: #### C MP, CBC #### [place] [address] [place] Monocytes (Bld) [#/Vol] 0.8 10*3/uL 0.0-0.8 [facility] Comment on above: Performed By: #### C MP, CBC #### [address] Monocytes/100 WBC (Bld) 13.4 % . [facility] Comment on above: Performed By: #### C MP, CBC #### [address] Neutrophils (Bld) [#/Vol] 3.3 10*3/uL 1.8-7.7 [facility] Comment on above: Performed By: #### C MP, CBC #### [address] Neutrophils/100 WBC (Bld) 53.1 % . [facility] Comment on above: Performed By: #### C MP, CBC #### [address] Platelet mean volume (Bld) [Entitic vol] 7.7 fL 6.3-10.7 [facility] Comment on above: Performed By: #### C MP, CBC #### [address] Platelets (Bld) [#/Vol] 227 10*3/uL 150-450 [facility] Comment on above: Performed By: #### C MP, CBC #### [address] RBC (Bld) [#/Vol] 3.98 10*6/uL 3.60-5.00 [facility] Comment on above: Performed By: #### C MP, CBC #### [address] WBC (Bld) [#/Vol] 6.3 10*3/uL 3.8-11.6 [facility] Comment on above: Performed By: #### C MP, CBC #### [address] Complete Blood Count Auto Di ffon 07-31-2024 Mean Corpuscular HGB Conc 34.5 g/dL Normal 32.0-35.0 [facility] Comment on above: Performed By: #### C MP, CBC #### [address] NRBC% 0.1 /100{WBC} Normal 0-0.5 [facility] Comment on above: Performed By: #### C MP, CBC #### [address] Creatinine [Mass/volume] in Serum or PlasmaOrdered By: Jhon Abreu on 07-31-2024 Creatinine [Mass/Vol] Creatinine [Mass/v olume] in Serum or Plasma 0.60-1.20 [facility] Eosinophils Auto (Bld) [#/Vo l]Ordered By: Jhon Abreu on 07-31-2024 Eosinophils (Bld) [#/Vol] Automated eosinophil count 0.0-0.45 [facility] Eosinophils/100 WBC Auto (Bl d)Ordered By: Jhon Abreu on 07-31-2024 Eosinophils/100 WBC (Bld) Automated eosinophil % . [facility] Erythrocyte distribution wid th Auto (RBC) [Ratio]Ordered By: Jhon Abreu on 07-31-2024 Erythrocyte distribution width (RBC) [Ratio] Erythrocyte distribution width [Ratio] by Automated count 11.9-15.3 [facility] Glucose [Mass/volume] in Ser um or PlasmaOrdered By: Jhon Abreu on 07-31-2024 Glucose [Mass/Vol] Glucose [Mass/volume ] in Serum or Plasma 70-100 [facility] Comment on above: ADA recommended refe rence rangeRandom Glucose Reference Range is dependent on time and content of last meal. Glucose of more than 200 mg/dL in a nonstressed, ambulatory subject supports the diagnosis of Diabetes Mellitus. Hematocrit Auto (Bld) [Volum e fraction]Ordered By: Jhon Abreu on 07-31-2024 Hematocrit (Bld) [Volume fraction] Hematocrit [Volume Fraction] of Blood by Automated count 34.0-46.4 [facility] Hemoglobin [Mass/volume] in BloodOrdered By: Jhon Abreu on 07-31-2024 Hemoglobin (Bld) [Mass/Vol] Hemoglobin [Mass/volume] in Blood 11.8-15.4 [facility] Leukocytes [#/volume] correc chacho for nucleated erythrocytes in Blood by Automated counOrdered By: Jhon Abreu on 07-31-2024 WBC corrected for nucl RBC Auto (Bld) [#/Vol] Leukocytes [#/volume] corrected for nucleated erythrocytes in Blood by Automated coun 3.8-11.6 [facility] WBC corrected for nucl RBC Auto (Bld) [#/Vol] 6.3 10*3/uL 3.8-11.6 [facility] Lymphocytes Auto (Bld) [#/Vo l]Ordered By: Jhon Abreu on 07-31-2024 Lymphocytes (Bld) [#/Vol] Lymphocytes [#/volume] in Blood by Automated count 1.00-4.8 [facility] Lymphocytes/100 WBC Auto (Bl d)Ordered By: Jhon Abreu on 07-31-2024 Lymphocytes/100 WBC (Bld) Lymphocytes/100 leukocytes in Blood by Automated count . [facility] MCH Auto (RBC) [Entitic mass ]Ordered By: Jhon Abreu on 07-31-2024 MCH (RBC) [Entitic mass] MCH [Entitic mass] by Automated count 24.7-34.3 [facility] MCHC Auto (RBC) [Mass/Vol]Or dered By: Jhon Abreu on 07-31-2024 MCHC (RBC) [Mass/Vol] MCHC [Mass/volume] by Automated count 32.0-35.0 [facility] MCHC (RBC) [Mass/Vol] 34.5 g/dL 32.0-35.0 [facility] MCV Auto (RBC) [Entitic vol] Ordered By: Jhon Abreu on 07-31-2024 MCV (RBC) [Entitic vol] MCV [Entitic vol ume] by Automated count 80-100 [facility] Monocytes Auto (Bld) [#/Vol] Ordered By: Jhon Abreu on 07-31-2024 Monocytes (Bld) [#/Vol] Automated blood monocyte count 0.0-0.8 [facility] Monocytes/100 WBC Auto (Bld) Ordered By: Jhon Abreu on 07-31-2024 Monocytes/100 WBC (Bld) Automated monocyte % . [facility] Neutrophils Auto (Bld) [#/Vo l]Ordered By: Jhon Abreu on 07-31-2024 Neutrophils (Bld) [#/Vol] Neutrophils [#/volume] in Blood by Automated count 1.8-7.7 [facility] Neutrophils/100 WBC Auto (Bl d)Ordered By: Jhon Abreu on 07-31-2024 Neutrophils/100 WBC (Bld) Automated neutrophil % . [facility] No Panel InformationOrdered By: Jhon Abreu on 07-31-2024 Estimated GFR (CKD-EPI) 58.341 mL/Min [facility] Creatinine Clearance (Chem 37.67 [facility] Nucleated erythrocytes [Pres ence] in Blood by Automated countOrdered By: Jhon Abreu on 07-31-2024 Nucleated RBC Auto Ql (Bld) Nucleated erythrocytes [Presence] in Blood by Automated count 0-0.5 [facility] Nucleated RBC Auto Ql (Bld) 0.1 /100{WBC} 0-0.5 [facility] Platelet mean volume Auto (B ld) [Entitic vol]Ordered By: Jhon Abreu on 07-31-2024 Platelet mean volume (Bld) [Entitic vol] Platelet mean volume [Entitic volume] in Blood by Automated count 6.3-10.7 [facility] Platelets Auto (Bld) [#/Vol] Ordered By: Jhon Abreu on 07-31-2024 Platelets (Bld) [#/Vol] Platelets [#/vol ume] in Blood by Automated count 150-450 [facility] Potassium [Moles/volume] in Serum or PlasmaOrdered By: Jhon Abreu on 07-31-2024 Potassium [Moles/Vol] Potassium [Moles/v olume] in Serum or Plasma 3.5-5.1 [facility] RBC Auto (Bld) [#/Vol]Ordere d By: Jhon Abreu on 07-31-2024 RBC (Bld) [#/Vol] Erythrocytes [#/volu me] in Blood by Automated count 3.60-5.00 [facility] Serum or plasma anion gap de terminationOrdered By: Jhon Abreu on 07-31-2024 Anion gap [Moles/Vol] Serum or plasma an ion gap determination 6.0-15.0 [facility] Sodium [Moles/volume] in Ser um or PlasmaOrdered By: Jhon Abreu on 07-31-2024 Sodium [Moles/Vol] Sodium [Moles/volume ] in Serum or Plasma Low 136-145 [facility] Urea nitrogen [Mass/volume] in Serum or PlasmaOrdered By: Jhon Abreu on 07-31-2024 Urea nitrogen [Mass/Vol] Urea nitrogen [Mass/volume] in Serum or Plasma 7-25 [facility] WBC Auto (Bld) [#/Vol]Ordere d By: Jhon Abreu on 07-31-2024 WBC (Bld) [#/Vol] Leukocytes [#/volume ] in Blood by Automated count 3.8-11.6 [facility] Alanine aminotransferase [En zymatic activity/volume] in Serum or PlasmaOrdered By: Jhon Abreu on 07-26-2024 ALT [Catalytic activity/Vol] Alanine aminotransferase [Enzymatic activity/volume] in Serum or Plasma 752 [facility] Albumin [Mass/volume] in Ser um or Plasma by Bromocresol green (BCG) dye binding methoOrdered By: Jhon Abreu on 07-26-2024 Albumin BCG dye [Mass/Vol] Albumin [Mass/volume] in Serum or Plasma by Bromocresol green (BCG) dye binding metho Low 3.5-5.7 [facility] Albumin BCG dye [Mass/Vol] 3.4 g/dL Low 3.5-5.7 [facility] Alkaline phosphatase [Enzyma tic activity/volume] in Serum or PlasmaOrdered By: Jhon Abreu on 07-26-2024 ALP [Catalytic activity/Vol] Alkaline phosphatase [Enzymatic activity/volume] in Serum or Plasma 34-104 [facility] Aspartate aminotransferase [ Enzymatic activity/volume] in Serum or PlasmaOrdered By: Jhon Abreu on 07-26-2024 AST [Catalytic activity/Vol] Aspartate aminotransferase [Enzymatic activity/volume] in Serum or Plasma 13-39 [facility] Bilirubin.total [Mass/volume ] in Serum or PlasmaOrdered By: Jhon Abreu on 07-26-2024 Bilirubin [Mass/Vol] Bilirubin.total [Mass/volume] in Serum or Plasma 0.3-1.0 [facility] Complete Blood Count Auto Di ffon 07-26-2024 Basophils (Bld) [#/Vol] 0.1 10*3/uL Normal 0.0-0.2 [facility] [facility] Comment on above: Result Comment: PERF ORMED BY: [address] [place] [address] PATHOLOGIST WELDER OPERATOR KARAN TINSLEY M.D. Performed By: #### C MP, CBC #### [facility] [address] [place] [address] [place] Basophils/100 WBC (Bld) 0.9 % Normal . T sonia [facility] Comment on above: Performed By: #### C MP, CBC #### [facility] [address] [place] [address] [place] Eosinophils (Bld) [#/Vol] 0.2 10*3/uL Normal 0.0-0.45 [facility] Comment on above: Performed By: #### C MP, CBC #### [address] Eosinophils/100 WBC (Bld) 2.3 % Normal . [facility] Comment on above: Performed By: #### C MP, CBC #### [address] Erythrocyte distribution width (RBC) [Ratio] 13.1 % Normal 11.9-15.3 [facility] Comment on above: Performed By: #### C MP, CBC #### [address] Hematocrit (Bld) [Volume fraction] 35.6 % Normal 34.0-46.4 [facility] Comment on above: Performed By: #### C MP, CBC #### [address] Hemoglobin (Bld) [Mass/Vol] 12.7 g/dL Normal 11.8-15.4 [facility] Comment on above: Performed By: #### C MP, CBC #### [address] Lymphocytes (Bld) [#/Vol] 1.9 10*3/uL Normal 1.00-4.8 [facility] Comment on above: Performed By: #### C MP, CBC #### [place] [address] [place] Lymphocytes/100 WBC (Bld) 27.9 % Normal . [facility] Comment on above: Performed By: #### C MP, CBC #### [place] [address] [place] MCH (RBC) [Entitic mass] 31.1 pg Normal 24.7-34.3 [facility] Comment on above: Performed By: #### C MP, CBC #### [address] MCV (RBC) [Entitic vol] 87.4 fL Normal 80-100 T he [facility] Comment on above: Performed By: #### C MP, CBC #### [facility] [address] Mean Corpuscular HGB Conc 35.6 g/dL High 32.0-35.0 [facility] Comment on above: Performed By: #### C MP, CBC #### [address] Monocytes (Bld) [#/Vol] 0.8 10*3/uL Normal 0.0-0.8 [facility] Comment on above: Performed By: #### C MP, CBC #### [place] [address] [place] Monocytes/100 WBC (Bld) 11.3 % Normal . T [facility] Comment on above: Performed By: #### C MP, CBC #### [address] Neutrophils (Bld) [#/Vol] 3.9 10*3/uL Normal 1.8-7.7 [facility] Comment on above: Performed By: #### C MP, CBC #### [place] [address] [place] Neutrophils/100 WBC (Bld) 57.6 % Normal . [facility] Comment on above: Performed By: #### C MP, CBC #### [address] NRBC% 0.1 /100{WBC} Normal 0-0.5 [facility] Comment on above: Performed By: #### C MP, CBC #### [place] [address] [place] Platelet mean volume (Bld) [Entitic vol] 8.0 fL Normal 6.3-10.7 [facility] Comment on above: Performed By: #### C MP, CBC #### [place] [address] [place] Platelets (Bld) [#/Vol] 210 10*3/uL Normal 150-450 [facility] Comment on above: Performed By: #### C MP, CBC #### [address] RBC (Bld) [#/Vol] 4.07 10*6/uL Normal 3.60-5.00 [facility] Comment on above: Performed By: #### C MP, CBC #### [address] WBC (Bld) [#/Vol] 6.7 10*3/uL Normal 3.8-11.6 [facility] Comment on above: Performed By: #### C MP, CBC #### [address] Comprehensive Metabolic Pane clarita 07-26-2024 Albumin [Mass/Vol] 3.4 g/dL Low 3.5-5.7 [facility] Comment on above: Performed By: #### C MP, CBC #### [address] Anion gap [Moles/Vol] 10.7 mmol/L Normal 6.0-15.0 [facility] Comment on above: Performed By: #### C MP, CBC #### [address] Calcium [Mass/Vol] 8.9 mg/dL Normal 8.6-10.3 [facility] Comment on above: Performed By: #### C MP, CBC #### [address] Chloride [Moles/Vol] 100 mmol/L Normal 98-107 [facility] Comment on above: Performed By: #### C MP, CBC #### [place] [address] [place] CO2 [Moles/Vol] 26.0 mmol/L Normal 21.0-31.0 [facility] Comment on above: Performed By: #### C MP, CBC #### [address] Creatinine [Mass/Vol] 1.09 mg/dL Normal 0.60-1.20 [facility] Comment on above: Performed By: #### C MP, CBC #### [facility] [address] [place] [address] [place] Creatinine Clr Calc Pharmacy 33.18 Normal [facility] Comment on above: Performed By: #### C MP, CBC #### [facility] [address] Estimated GFR 50.094 mL/Min Normal [facility] Comment on above: Performed By: #### C MP, CBC #### [facility] [address] Glucose [Mass/Vol] 98 mg/dL Normal 70-100 [facility] Comment on above: Result Comment: [facility] Glucose Reference Range is dependent on time and content of last meal. Glucose of more than 200 mg/dL in a nonstressed, ambulatory subject supports the diagnosis of Diabetes Mellitus. ADA recommended reference range Performed By: #### C MP, CBC #### [address] Potassium [Moles/Vol] 3.7 mmol/L Normal 3.5-5.1 [facility] Comment on above: Performed By: #### C MP, CBC #### [address] Sodium [Moles/Vol] 133 mmol/L Low 136-145 [facility] Comment on above: Performed By: #### C MP, CBC #### [address] Urea nitrogen [Mass/Vol] 15 mg/dL Normal 7-25 [facility] Comment on above: Performed By: #### C MP, CBC #### [facility] [address] Comprehensive Metabolic Pane lOrdered By: Jhon Abreu on 07-26-2024 Albumin/Globulin [Mass ratio] 1.4 {ratio} [facility] Comment on above: Performed By: #### C MP, CBC #### [facility] [address] [place] [address] [place] ALP [Catalytic activity/Vol] 48 U/L 34-104 [facility] Comment on above: Performed By: #### C MP, CBC #### [facility] [address] ALT [Catalytic activity/Vol] 11 U/L 7-52 [facility] Comment on above: Performed By: #### C MP, CBC #### [facility] [address] AST [Catalytic activity/Vol] 25 U/L 13-39 [facility] Comment on above: Performed By: #### C MP, CBC #### [facility] [address] Bilirubin [Mass/Vol] 0.8 mg/dL 0.3-1.0 [facility] Comment on above: Performed By: #### C MP, CBC #### [facility] [address] [place] [address] Globulin (S) [Mass/Vol] 2.5 g/dL [facility] Comment on above: Performed By: #### C MP, CBC #### [facility] [address] [place] [address] Protein [Mass/Vol] 5.9 g/dL Low 6.4-8.9 [facility] Comment on above: Performed By: #### C MP, CBC #### [facility] [address] [place] [address] Globulin Calc (S) [Mass/Vol] Ordered By: Jhon Abreu on 07-26-2024 Globulin (S) [Mass/Vol] Serum globulin m easurement by calculation (mass/volume) [facility] PrealbuminOrdered By: Jhon Arbeu on 07-26-2024 Prealbumin [Mass/Vol] 14.8 mg/dL Low 17.0-34.0 [facility] Comment on above: Result Comment: PERF ORMED BY: [place] [address] PATHOLOGIST WELDER OPERATOR KARAN TINSLEY M.D. Performed By: #### C MP, CBC #### [facility] [address] [place] [address] Prealbumin [Mass/volume] in Serum or PlasmaOrdered By: Jhon Abreu on 07-26-2024 Prealbumin [Mass/Vol] Prealbumin [Mass/v olume] in Serum or Plasma Low 17.0-34.0 [facility] Protein [Mass/volume] in Ser um or PlasmaOrdered By: Jhon Abreu on 07-26-2024 Protein [Mass/Vol] Protein [Mass/volume ] in Serum or Plasma Low 6.4-8.9 [facility] Serum or plasma albumin/glob ulin mass ratioOrdered By: Jhon Abreu on 07-26-2024 Albumin/Globulin [Mass ratio] Serum or plasma albumin/globulin mass ratio [facility] Alanine aminotransferase [En zymatic activity/volume] in Serum or PlasmaOrdered By: Jhony Davis on 07-24-2024 ALT [Catalytic activity/Vol] Alanine aminotransferase [Enzymatic activity/volume] in Serum or Plasma 7-52 [facility] Albumin [Mass/volume] in Ser um or Plasma by Bromocresol green (BCG) dye binding methoOrdered By: Jhony Davis on 07-24-2024 Albumin BCG dye [Mass/Vol] Albumin [Mass/volume] in Serum or Plasma by Bromocresol green (BCG) dye binding metho Low 3.5-5.7 [facility] Albumin BCG dye [Mass/Vol] 3.3 g/dL Low 3.5-5.7 [facility] Alkaline phosphatase [Enzyma tic activity/volume] in Serum or PlasmaOrdered By: Jhony Davis on 07-24-2024 ALP [Catalytic activity/Vol] Alkaline phosphatase [Enzymatic activity/volume] in Serum or Plasma 34-104 [facility] Aspartate aminotransferase [ Enzymatic activity/volume] in Serum or PlasmaOrdered By: Jhony Davis on 07-24-2024 AST [Catalytic activity/Vol] Aspartate aminotransferase [Enzymatic activity/volume] in Serum or Plasma 13-39 [facility] Basophils Auto (Bld) [#/Vol] Ordered By: Jhony Davis on 07-24-2024 Basophils (Bld) [#/Vol] Automated basophil count 0.0-0.2 [facility] Basophils/100 WBC Auto (Bld) Ordered By: Jhony Davis on 07-24-2024 Basophils/100 WBC (Bld) Automated basophil % . [facility] Bilirubin.total [Mass/volume ] in Serum or PlasmaOrdered By: Jhony Davis on 07-24-2024 Bilirubin [Mass/Vol] Bilirubin.total [Mass/volume] in Serum or Plasma 0.3-1.0 [facility] Calcium [Mass/volume] in Ser um or PlasmaOrdered By: Jhony Davis on 07-24-2024 Calcium [Mass/Vol] Calcium [Mass/volume ] in Serum or Plasma 8.6-10.3 [facility] Carbon dioxide, total [Moles /volume] in Serum or PlasmaOrdered By: Jhony Davis on 07-24-2024 CO2 [Moles/Vol] Carbon dioxide, tota l [Moles/volume] in Serum or Plasma 21.0-31.0 [facility] Chloride [Moles/volume] in S lorraine or PlasmaOrdered By: Jhony Davis on 07-24-2024 Chloride [Moles/Vol] Chloride [Moles/vol ume] in Serum or Plasma 98-107 [facility] Complete Blood Count Auto Di ffOrdered By: Jhony Davis on 07-24-2024 Basophils (Bld) [#/Vol] 0.1 10*3/uL 0.0-0.2 [facility] Comment on above: Result Comment: PERF ORMED BY: [place] [address] PATHOLOGIST WELDER OPERATOR KARAN TINSLEY M.D. Performed By: #### C MP, CBC #### [facility] [address] [place] [address] [place] Basophils/100 WBC (Bld) 1.3 % . [facility] Comment on above: Performed By: #### C MP, CBC #### [facility] [address] [place] [address] [place] Eosinophils (Bld) [#/Vol] 0.1 10*3/uL 0.0-0.45 [facility] Comment on above: Performed By: #### C MP, CBC #### [address] Eosinophils/100 WBC (Bld) 1.4 % . [facility] Comment on above: Performed By: #### C MP, CBC #### [address] Erythrocyte distribution width (RBC) [Ratio] 13.5 % 11.9-15.3 [facility] Comment on above: Performed By: #### C MP, CBC #### [address] Hematocrit (Bld) [Volume fraction] 38.1 % 34.0-46.4 [facility] Comment on above: Performed By: #### C MP, CBC #### [address] Hemoglobin (Bld) [Mass/Vol] 13.3 g/dL 11.8-15.4 [facility] Comment on above: Performed By: #### C MP, CBC #### [address] Lymphocytes (Bld) [#/Vol] 1.5 10*3/uL 1.00-4.8 [facility] Comment on above: Performed By: #### C MP, CBC #### [address] Lymphocytes/100 WBC (Bld) 25.9 % . [facility] Comment on above: Performed By: #### C MP, CBC #### [address] MCH (RBC) [Entitic mass] 31.0 pg 24.7-34.3 [facility] Comment on above: Performed By: #### C MP, CBC #### [address] MCV (RBC) [Entitic vol] 88.9 fL 80-100 F [facility] Comment on above: Performed By: #### C MP, CBC #### [address] Monocytes (Bld) [#/Vol] 0.6 10*3/uL 0.0-0.8 [facility] Comment on above: Performed By: #### C MP, CBC #### [facility] [address] Monocytes/100 WBC (Bld) 10.8 % . [facility] Comment on above: Performed By: #### C MP, CBC #### [facility] [address] Neutrophils (Bld) [#/Vol] 3.6 10*3/uL 1.8-7.7 [facility] Comment on above: Performed By: #### C MP, CBC #### [facility] [address] Neutrophils/100 WBC (Bld) 60.6 % . [facility] Comment on above: Performed By: #### C MP, CBC #### [facility] [address] Platelet mean volume (Bld) [Entitic vol] 7.5 fL 6.3-10.7 [facility] Comment on above: Performed By: #### C MP, CBC #### [facility] [address] Platelets (Bld) [#/Vol] 182 10*3/uL 150-450 [facility] Comment on above: Performed By: #### C MP, CBC #### [facility] [address] RBC (Bld) [#/Vol] 4.29 10*6/uL 3.60-5.00 [facility] Comment on above: Performed By: #### C MP, CBC #### [facility] [address] [place] [address] [place] WBC (Bld) [#/Vol] 6.0 10*3/uL 3.8-11.6 [facility] Comment on above: Performed By: #### C MP, CBC #### [facility] [address] Complete Blood Count Auto Di ffon 07-24-2024 Mean Corpuscular HGB Conc 34.9 g/dL Normal 32.0-35.0 [facility] Comment on above: Performed By: #### C MP, CBC #### [address] NRBC% 0.0 /100{WBC} Normal 0-0.5 [facility] Comment on above: Performed By: #### C MP, CBC #### [address] Comprehensive Metabolic Pane clarita 07-24-2024 Albumin [Mass/Vol] 3.3 g/dL Low 3.5-5.7 [facility] Comment on above: Performed By: #### C MP, CBC #### [address] Creatinine Clr Calc Pharmacy 39.82 Normal [facility] Comment on above: Result Comment: PERF ORMED BY: [place] [address] PATHOLOGIST WELDER OPERATOR KARAN TINSLEY M.D. Performed By: #### C MP, CBC #### [address] GFR/1.73 sq M.predicted MDRD (S/P/Bld) [Vol rate/Area] mL/min/{1.73_m2} Normal [facility] Comment on above: Performed By: #### C MP, CBC #### [address] Comprehensive Metabolic Pane lOrdered By: Jhony Davis on 07-24-2024 Albumin/Globulin [Mass ratio] 1.3 {ratio} [facility] Comment on above: Performed By: #### C MP, CBC #### [address] ALP [Catalytic activity/Vol] 39 U/L 34-104 [facility] Comment on above: Performed By: #### C MP, CBC #### [address] [place] [address] [place] ALT [Catalytic activity/Vol] 9 U/L 7-52 [facility] Comment on above: Performed By: #### C MP, CBC #### [address] Anion gap [Moles/Vol] 9.7 mmol/L 6.0-15.0 [facility] Comment on above: Performed By: #### C MP, CBC #### [address] AST [Catalytic activity/Vol] 25 U/L 13-39 [facility] Comment on above: Performed By: #### C MP, CBC #### [address] Bilirubin [Mass/Vol] 0.8 mg/dL 0.3-1.0 [facility] Comment on above: Performed By: #### C MP, CBC #### [facility] [address] [place] [address] Calcium [Mass/Vol] 8.7 mg/dL 8.6-10.3 [facility] Comment on above: Performed By: #### C MP, CBC #### [facility] [address] [place] [address] Chloride [Moles/Vol] 101 mmol/L 98-107 [facility] Comment on above: Performed By: #### C MP, CBC #### [facility] [address] [place] [address] CO2 [Moles/Vol] 26.0 mmol/L 21.0-31.0 [facility] Comment on above: Performed By: #### C MP, CBC #### [facility] [address] [place] [address] Creatinine [Mass/Vol] 0.87 mg/dL 0.60-1.20 [facility] Comment on above: Performed By: #### C MP, CBC #### [facility] [address] [place] [address] Globulin (S) [Mass/Vol] 2.5 g/dL [facility] Comment on above: Performed By: #### C MP, CBC #### [address] Glucose [Mass/Vol] 89 mg/dL 70-100 [facility] Comment on above: Result Comment: Alexis om Glucose Reference Range is dependent on time and content of last meal. Glucose of more than 200 mg/dL in a nonstressed, ambulatory subject supports the diagnosis of Diabetes Mellitus. ADA recommended reference range Performed By: #### C MP, CBC #### [address] ADA recommended refe rence rangeRandom Glucose Reference Range is dependent on time and content of last meal. Glucose of more than 200 mg/dL in a nonstressed, ambulatory subject supports the diagnosis of Diabetes Mellitus. Potassium [Moles/Vol] 3.7 mmol/L 3.5-5.1 [facility] Comment on above: Result Comment: Hemo lysis is present at a level that could interfere with the result. Contact lab if redraw is required Performed By: #### C MP, CBC #### [address] Hemolysis is present at a level that could interfere with the result.Contact lab if redraw is required Protein [Mass/Vol] 5.8 g/dL Low 6.4-8.9 [facility] Comment on above: Performed By: #### C MP, CBC #### [address] Sodium [Moles/Vol] 133 mmol/L Low 136-145 [facility] Comment on above: Performed By: #### C MP, CBC #### [address] Urea nitrogen [Mass/Vol] 12 mg/dL - [facility] Comment on above: Performed By: #### C MP, CBC #### [address] Creatinine [Mass/volume] in Serum or PlasmaOrdered By: Jhony Davis on 07-24-2024 Creatinine [Mass/Vol] Creatinine [Mass/v olume] in Serum or Plasma 0.60-1.20 [facility] echo transthoracicon [facility] echo transthoracic [facility] Main [place] [address] [place] [id number] Echocardiogram Signed Patient: Janelle Burt MR#: [id number] : 1940 Acct:[id number] Age/Sex: 83 / F ADM Date: 07/22/24 Loc: Room: [address] [place] [address] Type: ADM IN Attending Dr: Jovani Sibley MD Ordering Provider: Jhony Davis MD Date of Service: 07/23/24 [facility] echo transthoracic: CVA Copies to: [...] Harshal Rosen MD 07/24/24 1559 Normal [facility] Eosinophils Auto (Bld) [#/Vo l]Ordered By: Jhony Davis on 07-24-2024 Eosinophils (Bld) [#/Vol] Automated eosinophil count 0.0-0.45 [facility] Eosinophils/100 WBC Auto (Bl d)Ordered By: Jhony Davis on 07-24-2024 Eosinophils/100 WBC (Bld) Automated eosinophil % . [facility] Erythrocyte distribution wid th Auto (RBC) [Ratio]Ordered By: Jhony Davis on 07-24-2024 Erythrocyte distribution width (RBC) [Ratio] Erythrocyte distribution width [Ratio] by Automated count 11.9-15.3 [facility] Globulin Calc (S) [Mass/Vol] Ordered By: Jhony Davis on 07-24-2024 Globulin (S) [Mass/Vol] Serum globulin m easurement by calculation (mass/volume) [facility] Glucose [Mass/volume] in Ser um or PlasmaOrdered By: Jhony Davis on 07-24-2024 Glucose [Mass/Vol] Glucose [Mass/volume ] in Serum or Plasma 70-100 [facility] Comment on above: ADA recommended refe rence rangeRandom Glucose Reference Range is dependent on time and content of last meal. Glucose of more than 200 mg/dL in a nonstressed, ambulatory subject supports the diagnosis of Diabetes Mellitus. Hematocrit Auto (Bld) [Volum e fraction]Ordered By: Jhony Davis on 07-24-2024 Hematocrit (Bld) [Volume fraction] Hematocrit [Volume Fraction] of Blood by Automated count 34.0-46.4 [facility] Hemoglobin [Mass/volume] in BloodOrdered By: Jhony Davis on 07-24-2024 Hemoglobin (Bld) [Mass/Vol] Hemoglobin [Mass/volume] in Blood 11.8-15.4 [facility] Leukocytes [#/volume] correc chacho for nucleated erythrocytes in Blood by Automated counOrdered By: Jhony Davis on 07-24-2024 WBC corrected for nucl RBC Auto (Bld) [#/Vol] Leukocytes [#/volume] corrected for nucleated erythrocytes in Blood by Automated coun 3.8-11.6 [facility] WBC corrected for nucl RBC Auto (Bld) [#/Vol] 6.0 10*3/uL 3.8-11.6 [facility] Lymphocytes Auto (Bld) [#/Vo l]Ordered By: Jhony Davis on 07-24-2024 Lymphocytes (Bld) [#/Vol] Lymphocytes [#/volume] in Blood by Automated count 1.00-4.8 [facility] Lymphocytes/100 WBC Auto (Bl d)Ordered By: Jhony Davis on 07-24-2024 Lymphocytes/100 WBC (Bld) Lymphocytes/100 leukocytes in Blood by Automated count . [facility] MCH Auto (RBC) [Entitic mass ]Ordered By: Jhony Davis on 07-24-2024 MCH (RBC) [Entitic mass] MCH [Entitic mass] by Automated count 24.7-34.3 [facility] MCHC Auto (RBC) [Mass/Vol]Or dered By: Jhony Davis on 07-24-2024 MCHC (RBC) [Mass/Vol] MCHC [Mass/volume] by Automated count 32.0-35.0 [facility] MCHC (RBC) [Mass/Vol] 34.9 g/dL 32.0-35.0 [facility] MCV Auto (RBC) [Entitic vol] Ordered By: Jhony Davis on 07-24-2024 MCV (RBC) [Entitic vol] MCV [Entitic vol ume] by Automated count 80-100 [facility] MR head/brain wo/w conon MR head/brain wo/w con [facility] Main [address] [address] MRI Report Signed Patient: Janelle Burt MR#: [id number] : 1940 Acct:[id number] Age/Sex: 83 / F ADM Date: 07/22/24 Loc: 4C Room: [address] [place] [address] Type: ADM IN Attending Dr: Jovani Sibley [...] chronic small vessel ischemic disease. 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 Major [...] Ferrera M.D. 07/24/2024 6:04 PM Dictation Location: [place] [address] Transcribed By: [facility] 07/24/241803 Dictated By: Charli Ferrera MD 07/24/241800 Signed By: 07/24/241803 Normal [facility] Magnetic resonance imaging r eportOrdered By: Charli Ferrera on 07-24-2024 Study report [facility] [place] [address] MRI Report Signed Patient: Janelle Burt MR#: [id number] : 1940 Acct:[id number] Age/Sex: 83 / F ADM Date: 5 Loc: 4C Room: [address] [place] [address] Type: ADM IN Attending Dr: Jovani Sibley [...] chronic small vessel ischemic disease. 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 Major [...] Ferrera M.D. 07/24/2024 6:04 PM Dictation Location: [place] [address] Transcribed By: FUENTES 07/24/241803 Dictated By: Charli Ferrera MD 07/24/241800 Signed By: 07/24/24 180 [facility] Work Phone: Monocytes Auto (Bld) [#/Vol] Ordered By: Jhony Davis on 07-24-2024 Monocytes (Bld) [#/Vol] Automated blood monocyte count 0.0-0.8 [facility] Monocytes/100 WBC Auto (Bld) Ordered By: Jhony Davis on 07-24-2024 Monocytes/100 WBC (Bld) Automated monocyte % . [facility] Neutrophils Auto (Bld) [#/Vo l]Ordered By: Jhony Davis on 07-24-2024 Neutrophils (Bld) [#/Vol] Neutrophils [#/volume] in Blood by Automated count 1.8-7.7 [facility] Neutrophils/100 WBC Auto (Bl d)Ordered By: Jhony Davis on 07-24-2024 Neutrophils/100 WBC (Bld) Automated neutrophil % . [facility] No Panel InformationOrdered By: Jhony Davis on 07-24-2024 Estimated GFR (CKD-EPI) > 60.0 mL/Min [facility] Creatinine Clearance (Chem 39.82 [facility] Nucleated erythrocytes [Pres ence] in Blood by Automated countOrdered By: Jhony Davis on 07-24-2024 Nucleated RBC Auto Ql (Bld) Nucleated erythrocytes [Presence] in Blood by Automated count 0-0.5 [facility] Nucleated RBC Auto Ql (Bld) 0.0 /100{WBC} 0-0.5 [facility] [facility] Platelet mean volume Auto (B ld) [Entitic vol]Ordered By: Jhony Davis on 07-24-2024 Platelet mean volume (Bld) [Entitic vol] Platelet mean volume [Entitic volume] in Blood by Automated count 6.3-10.7 [facility] Platelets Auto (Bld) [#/Vol] Ordered By: Jhony Davis on 07-24-2024 Platelets (Bld) [#/Vol] Platelets [#/vol ume] in Blood by Automated count 150-450 [facility] Potassium [Moles/volume] in Serum or PlasmaOrdered By: Jhony Davis on 07-24-2024 Potassium [Moles/Vol] Potassium [Moles/v olume] in Serum or Plasma 3.5-5.1 [facility] Comment on above: Hemolysis is present at a level that could interfere with the result.Contact lab if redraw is required Protein [Mass/volume] in Ser um or PlasmaOrdered By: Jhony Davis on 07-24-2024 Protein [Mass/Vol] Protein [Mass/volume ] in Serum or Plasma Low 6.4-8.9 [facility] RBC Auto (Bld) [#/Vol]Ordere d By: Jhony Davis on 07-24-2024 RBC (Bld) [#/Vol] Erythrocytes [#/volu me] in Blood by Automated count 3.60-5.00 [facility] Serum or plasma albumin/glob ulin mass ratioOrdered By: Jhony Davis on 07-24-2024 Albumin/Globulin [Mass ratio] Serum or plasma albumin/globulin mass ratio [facility] Serum or plasma anion gap de terminationOrdered By: Jhony Davis on 07-24-2024 Anion gap [Moles/Vol] Serum or plasma an ion gap determination 6.0-15.0 [facility] Sodium [Moles/volume] in Ser um or PlasmaOrdered By: Jhony Davis on 07-24-2024 Sodium [Moles/Vol] Sodium [Moles/volume ] in Serum or Plasma Low 136-145 [facility] Urea nitrogen [Mass/volume] in Serum or PlasmaOrdered By: Jhony Davis on 07-24-2024 Urea nitrogen [Mass/Vol] Urea nitrogen [Mass/volume] in Serum or Plasma 7-25 [facility] WBC Auto (Bld) [#/Vol]Ordere d By: Jhony Davis on 07-24-2024 WBC (Bld) [#/Vol] Leukocytes [#/volume ] in Blood by Automated count 3.8-11.6 [facility] Alanine aminotransferase [En zymatic activity/volume] in Serum or PlasmaOrdered By: Jon Felder on 07-23-2024 ALT [Catalytic activity/Vol] Alanine aminotransferase [Enzymatic activity/volume] in Serum or Plasma 7-52 [facility] Albumin [Mass/volume] in Ser um or Plasma by Bromocresol green (BCG) dye binding methoOrdered By: Jon Felder on 07-23-2024 Albumin BCG dye [Mass/Vol] Albumin [Mass/volume] in Serum or Plasma by Bromocresol green (BCG) dye binding metho 3.5-5.7 [facility] Alkaline phosphatase [Enzyma tic activity/volume] in Serum or PlasmaOrdered By: Jon Felder on 07-23-2024 ALP [Catalytic activity/Vol] Alkaline phosphatase [Enzymatic activity/volume] in Serum or Plasma 34-104 [facility] Arterial Blood Gason 025 ABG Base Excess -2.3 mmol/L Normal -3.0-3.0 [facility] Comment on above: Performed By: #### C MP, CBC #### [address] ABG Frac Inspired O2 21 % Normal [facility] Comment on above: Performed By: #### C MP, CBC #### [address] ABG Oxygen Content 7.8 mmol/L Normal 6.6-9.7 [facility] Comment on above: Performed By: #### C MP, CBC #### [address] ABG Oxygen Saturation 95.8 % Normal 95.0-100.0 [facility] Comment on above: Performed By: #### C MP, CBC #### [address] ABG PCO2 29.7 mm[Hg] Off scale low 35.0-45.0 [facility] Comment on above: Performed By: #### C MP, CBC #### [address] ABG PH 7.46 High 7.35-7.45 [facility] Comment on above: Performed By: #### C MP, CBC #### [address] ABG PO2 82.4 mm[Hg] Normal 80.0-100.0 [facility] Comment on above: Performed By: #### C MP, CBC #### [address] Respiratory Critical Normal [facility] Comment on above: Result Comment: Crit ical Value called on: 07/23/2024 at 11:06 PERFORMED BY: [place] [address] PATHOLOGIST WELDER OPERATOR KARAN TINSLEY M.D. Performed By: #### C MP, CBC #### [address] VBG Draw Site Left Radial Normal [facility] Comment on above: Performed By: #### C MP, CBC #### [address] Arterial Blood GasOrdered By : Jhony Davis on 07-23-2024 CO2 [Moles/Vol] 21.4 mmol/L Low 23.0-27.0 [facility] Comment on above: Performed By: #### C MP, CBC #### [address] HCO3 (Bld) [Moles/Vol] 20.5 mmol/L Low 23.0-29.0 [facility] Comment on above: Performed By: #### C MP, CBC #### [address] Aspartate aminotransferase [ Enzymatic activity/volume] in Serum or PlasmaOrdered By: Jon Felder on 07-23-2024 AST [Catalytic activity/Vol] Aspartate aminotransferase [Enzymatic activity/volume] in Serum or Plasma 13-39 [facility] Bilirubin.total [Mass/volume ] in Serum or PlasmaOrdered By: Jon Felder on 07-23-2024 Bilirubin [Mass/Vol] Bilirubin.total [Mass/volume] in Serum or Plasma 0.3-1.0 [facility] Blood Cultureon 07-23-2024 Bacteria identified Cx Nom (Bld) NO GROWTH 5 DAYS PERFORMED BY: [place] [address] PATHOLOGIST WELDER OPERATOR KARAN TINSLEY M.D. Normal [facility] Comment on above: Performed By: #### C MP, CBC #### [address] Bacteria identified Cx Nom (Bld) NO GROWTH 5 DAYS PERFORMED BY: [place] [address] PATHOLOGIST WELDER OPERATOR KARAN TINSLEY M.D. Normal [facility] Comment on above: Performed By: #### C UU #### [address] angio neckon 07-23-2024 CT angio neck [facility] [place] [address] [place] [address] CT Scan Report Signed Patient: Janelle Burt MR#: [id number] : 1940 Acct:[id number] Age/Sex: 83 / F ADM Date: 07/22/24 Loc: Room: 6H7987-0 Type: ADM IN Attending Dr: Jhony Davis MD Copies to: MD Asad Doan Jr, MD Ordering Provider: Asad Mcnally Jr, MD Date of Service: 07/22/24 CT/CT angio head: fall, mild L weakness, anticoag ([id number]) CT/CT angio neck: fall, mild L weakness, [...] DIFFUSE 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 NO SACCULAR ANEURYSM. MULTILEVEL DEGENERATIVE CHANGES THROUGHOUT THE CERVICAL SPINE CT/CT angio head IMPRESSION: Negative for large vessel occlusion or hemodynamically significant stenosis involving the cervical vessels. Moderate burden of disease identified intracranially notably involving right distal M1 segment. Left A2 A3 segment. Moderate severe narrowing left P1 P2 segment [employer]. Moderate narrowing right P1 segment [employer]. Up to 50% narrowing involving both proximal ICAs Impression dictated by: Charli Ferrera M.D. 07/23/2024 8:46 AM Dictation Location: [id number]-[id number] Transcribed By: FUENTES 07/23/24 0846 Dictated By: Charli Ferrera MD 07/23/24 0835 Signed By: 07/23/24 0846 Normal [facility] CT head stroke alert wo cono n 07-23-2024 CT head stroke alert wo con [facility] [place] [address] [place] [address] CT Scan Report Signed Patient: Janelle Burt MR#: [id number] : 1940 Acct:[id number] Age/Sex: 83 / F ADM Date: 07/22/24 Loc: Room: [address] [place] [address] Type: ADM IN Attending Dr: Jhony Davis [...] bleed, midline shift or mass effect. Right [employer] distribution encephalomalacia noted. Moderate chronic small [...] 0753 Signed By: 07/23/24 075 Normal [facility] Calcium [Mass/volume] in Ser um or PlasmaOrdered By: Jon Felder on 04-27-2025 Calcium [Mass/Vol] Calcium [Mass/volume ] in Serum or Plasma 8.6-10.3 [facility] Carbon dioxide, total [Moles /volume] in Serum or PlasmaOrdered By: Jon Felder on 07-23-2024 CO2 [Moles/Vol] Carbon dioxide, tota l [Moles/volume] in Serum or Plasma 21.0-31.0 [facility] Chloride [Moles/volume] in S lorraine or PlasmaOrdered By: Jon Felder on 07-23-2024 Chloride [Moles/Vol] Chloride [Moles/vol ume] in Serum or Plasma Low 98-107 [facility] Complete Blood Count Auto Di ffon 07-23-2024 Basophils (Bld) [#/Vol] 0.1 10*3/uL Normal 0.0-0.2 [facility] Comment on above: Result Comment: PERF ORMED BY: [place] [address] PATHOLOGIST WELDER OPERATOR KARAN TINSLEY M.D. Performed By: #### C MP, CBC #### [address] Basophils/100 WBC (Bld) 0.5 % Normal . Eron scott [facility] Comment on above: Performed By: #### C MP, CBC #### [address] Eosinophils (Bld) [#/Vol] 0.0 10*3/uL Normal 0.0-0.45 [facility] Comment on above: Performed By: #### C MP, CBC #### [place] [address] [place] Eosinophils/100 WBC (Bld) 0.1 % Normal . [facility] Comment on above: Performed By: #### C MP, CBC #### [address] Erythrocyte distribution width (RBC) [Ratio] 13.7 % Normal 11.9-15.3 [facility] Comment on above: Performed By: #### C MP, CBC #### [address] Hematocrit (Bld) [Volume fraction] 41.8 % Normal 34.0-46.4 [facility] Comment on above: Performed By: #### C MP, CBC #### [address] Hemoglobin (Bld) [Mass/Vol] 14.6 g/dL Normal 11.8-15.4 [facility] Comment on above: Performed By: #### C MP, CBC #### [address] Lymphocytes (Bld) [#/Vol] 1.2 10*3/uL Normal 1.00-4.8 [facility] Comment on above: Performed By: #### C MP, CBC #### [address] Lymphocytes/100 WBC (Bld) 9.4 % Normal . [facility] Comment on above: Performed By: #### C MP, CBC #### [address] MCH (RBC) [Entitic mass] 30.8 pg Normal 24.7-34.3 [facility] Comment on above: Performed By: #### C MP, CBC #### [address] MCV (RBC) [Entitic vol] 88.6 fL Normal 80-100 [facility] Comment on above: Performed By: #### C MP, CBC #### [address] Mean Corpuscular HGB Conc 34.8 g/dL Normal 32.0-35.0 [facility] Comment on above: Performed By: #### C MP, CBC #### [address] Monocytes (Bld) [#/Vol] 0.5 10*3/uL Normal 0.0-0.8 [facility] Comment on above: Performed By: #### C MP, CBC #### [place] [address] [place] Monocytes/100 WBC (Bld) 18.56 % Normal 0.00-20.00 T sonia [facility] Comment on above: Performed By: #### C MP, CBC #### [address] Monocytes/100 WBC (Bld) 4.5 % Normal . [facility] Comment on above: Performed By: #### C MP, CBC #### [address] Neutrophils (Bld) [#/Vol] 10.5 10*3/uL High 1.8-7.7 [facility] Comment on above: Performed By: #### C MP, CBC #### [address] Neutrophils/100 WBC (Bld) 85.5 % Normal . [facility] Comment on above: Performed By: #### C MP, CBC #### [address] NRBC% 0.0 /100{WBC} Normal 0-0.5 [facility] Comment on above: Performed By: #### C MP, CBC #### [address] Platelet mean volume (Bld) [Entitic vol] 7.8 fL Normal 6.3-10.7 [facility] Comment on above: Performed By: #### C MP, CBC #### [place] [address] [place] Platelets (Bld) [#/Vol] 214 10*3/uL Normal 150-450 [facility] Comment on above: Performed By: #### C MP, CBC #### [place] [address] [place] RBC (Bld) [#/Vol] 4.72 10*6/uL Normal 3.60-5.00 [facility] Comment on above: Performed By: #### C MP, CBC #### [place] [address] [place] WBC (Bld) [#/Vol] 12.3 10*3/uL High 3.8-11.6 [facility] Comment on above: Performed By: #### C MP, CBC #### [address] Comprehensive Metabolic Pane clarita 07-23-2024 Albumin Level Normal 3.5-5.7 [facility] Comment on above: Result Comment: Hemo lysis is present at a level that could interfere with the result. --- 07/23/24 0531 --- Alb previously reported as: 4.0 gm/dL Hemolysis is present at a level that could interfere with the result. Performed By: #### C MP, CBC #### [address] Albumin/Globulin Ratio Normal Th e [facility] Comment on above: Result Comment: Spec imen hemolyzed, redraw requested Performed By: #### C MP, CBC #### [address] ALP [Catalytic activity/Vol] 42 U/L Normal 34-104 [facility] Comment on above: Performed By: #### C MP, CBC #### [address] ALT [Catalytic activity/Vol] 12 U/L Normal 7-52 [facility] Comment on above: Performed By: #### C MP, CBC #### [address] Anion gap [Moles/Vol] Not performed Normal 6.0-15.0 [facility] Comment on above: Performed By: #### C MP, CBC #### [address] Aspartate Amino Transferase Normal 13-39 [facility] Comment on above: Result Comment: Spec imen hemolyzed, redraw requested Performed By: #### C MP, CBC #### [address] Bilirubin [Mass/Vol] 0.6 mg/dL Normal 0.3-1.0 [facility] Comment on above: Performed By: #### C MP, CBC #### [address] Calcium [Mass/Vol] 9.1 mg/dL Normal 8.6-10.3 [facility] Comment on above: Performed By: #### C MP, CBC #### [address] Chloride [Moles/Vol] 97 mmol/L Low 98-107 [facility] Comment on above: Performed By: #### C MP, CBC #### [address] CO2 [Moles/Vol] 22.5 mmol/L Normal 21.0-31.0 [facility] Comment on above: Performed By: #### C MP, CBC #### [address] Creatinine [Mass/Vol] 0.95 mg/dL Normal 0.60-1.20 [facility] Comment on above: Performed By: #### C MP, CBC #### [address] Creatinine Clr Calc Pharmacy 36.47 Normal [facility] Comment on above: Performed By: #### C MP, CBC #### [address] Estimated GFR 59.079 mL/Min Normal [facility] Comment on above: Performed By: #### C MP, CBC #### [place] [address] [place] Globulin Normal [facility] Comment on above: Result Comment: Spec imen hemolyzed, redraw requested Performed By: #### C MP, CBC #### [address] Glucose [Mass/Vol] 113 mg/dL High 70-100 [facility] Comment on above: Result Comment: [facility] Glucose Reference Range is dependent on time and content of last meal. Glucose of more than 200 mg/dL in a nonstressed, ambulatory subject supports the diagnosis of Diabetes Mellitus. ADA recommended reference range Performed By: #### C MP, CBC #### [facility] [address] [place] [address] [place] Potassium Normal 3.5-5.1 [facility] Comment on above: Result Comment: Spec imen hemolyzed, redraw requested Performed By: #### C MP, CBC #### [facility] [address] [place] [address] [place] Sodium Normal 136-145 [facility] Comment on above: Result Comment: Spec imen hemolyzed, redraw requested Performed By: #### C MP, CBC #### [place] [address] [place] Total Protein Normal 6.4-8.9 [facility] Comment on above: Result Comment: Spec imen hemolyzed, redraw requested Performed By: #### C MP, CBC #### [place] [address] [place] Urea nitrogen [Mass/Vol] 15 mg/dL Normal 7-25 [facility] Comment on above: Performed By: #### C MP, CBC #### [place] [address] [place] Albumin [Mass/Vol] 4.0 g/dL Normal 3.5-5.7 [facility] Comment on above: Performed By: #### C UU #### [place] [address] [place] Albumin/Globulin [Mass ratio] 1.3 {ratio} Normal [facility] Comment on above: Performed By: #### C UU #### [place] [address] [place] ALP [Catalytic activity/Vol] 50 U/L Normal 34-104 [facility] Comment on above: Performed By: #### C UU #### [place] [address] [place] ALT [Catalytic activity/Vol] 12 U/L Normal 7-52 [facility] Comment on above: Performed By: #### C UU #### [address] Anion gap [Moles/Vol] 15.9 mmol/L High 6.0-15.0 [facility] Comment on above: Performed By: #### C UU #### [address] AST [Catalytic activity/Vol] 22 U/L Normal 13-39 [facility] Comment on above: Performed By: #### C UU #### [address] Bilirubin [Mass/Vol] 0.7 mg/dL Normal 0.3-1.0 [facility] Comment on above: Performed By: #### C UU #### [address] Calcium [Mass/Vol] 9.4 mg/dL Normal 8.6-10.3 [facility] Comment on above: Performed By: #### C UU #### [address] Chloride [Moles/Vol] 95 mmol/L Low 98-107 [facility] Comment on above: Performed By: #### C UU #### [address] CO2 [Moles/Vol] 22.7 mmol/L Normal 21.0-31.0 [facility] Comment on above: Performed By: #### C UU #### [address] Creatinine [Mass/Vol] 1.07 mg/dL Normal 0.60-1.20 [facility] Comment on above: Performed By: #### C UU #### [address] Creatinine Clr Calc Pharmacy 35.22 Normal [facility] Comment on above: Result Comment: PERF ORMED BY: [place] [address] PATHOLOGIST WELDER OPERATOR KARAN TINSLEY M.D. Performed By: #### C UU #### [address] Estimated GFR 51.220 mL/Min Normal [facility] Comment on above: Performed By: #### C UU #### [address] Globulin (S) [Mass/Vol] 3.0 g/dL Normal T [facility] Comment on above: Performed By: #### C UU #### [address] Glucose [Mass/Vol] 129 mg/dL High 70-100 [facility] Comment on above: Result Comment: [facility] Glucose Reference Range is dependent on time and content of last meal. Glucose of more than 200 mg/dL in a nonstressed, ambulatory subject supports the diagnosis of Diabetes Mellitus. ADA recommended reference range Performed By: #### C UU #### [address] Potassium [Moles/Vol] 3.6 mmol/L Normal 3.5-5.1 [facility] Comment on above: Performed By: #### C UU #### [address] Protein [Mass/Vol] 7.0 g/dL Normal 6.4-8.9 [facility] Comment on above: Performed By: #### C UU #### [address] Sodium [Moles/Vol] 130 mmol/L Low 136-145 [facility] Comment on above: Performed By: #### C UU #### [address] Urea nitrogen [Mass/Vol] 16 mg/dL Normal 7-25 [facility] Comment on above: Performed By: #### C UU #### [address] Creatinine [Mass/volume] in Serum or PlasmaOrdered By: Jon Felder on 07-23-2024 Creatinine [Mass/Vol] Creatinine [Mass/v olume] in Serum or Plasma 0.60-1.20 [facility] Globulin Calc (S) [Mass/Vol] Ordered By: Jon Felder on 07-23-2024 Globulin (S) [Mass/Vol] Serum globulin m easurement by calculation (mass/volume) [facility] Glucose [Mass/volume] in Ser um or PlasmaOrdered By: Jon Felder on 07-23-2024 Glucose [Mass/Vol] Glucose [Mass/volume ] in Serum or Plasma High 70-100 [facility] Comment on above: ADA recommended refe rence rangeRandom Glucose Reference Range is dependent on time and content of last meal. Glucose of more than 200 mg/dL in a nonstressed, ambulatory subject supports the diagnosis of Diabetes Mellitus. Laboratory - Microbiology an d Antimicrobial susceptibilityOrdered By: Jon Felder on 07-23-2024 Bacteria identified Cx Nom (Bld) NO GROWTH 5 DAYS [facility] Bacteria identified Cx Nom (Bld) NO GROWTH 5 DAYS [facility] Lactate [Moles/volume] in Se rum or PlasmaOrdered By: Jon Felder on 07-23-2024 Lactate [Moles/Vol] Lactate [Moles/volum e] in Serum or Plasma 0.5-1.9 [facility] Comment on above: Lactic Acid referenc e range has been updated to 0.5 1.9 mmol/L and the critical range of 2.0 or greater. Lactate [Moles/Vol] 1.6 mmol/L 0.5-1.9 [facility] Comment on above: Lactic Acid referenc e range has been updated to 0.5 1.9 mmol/L and the critical range of 2.0 or greater. Lactate [Moles/Vol] Lactate [Moles/volum e] in Serum or Plasma Critically high 0.5-1.9 [facility] Comment on above: Critical Result : Ca lled to and read back by: RADHA MONSALVE at: 07/23/2024 01:22:11 by:DHLactic Acid reference range has been updated to 0.5 1.9 mmol/L and the critical range of 2.0 or greater. Lactic Acidon 07-23-2024 Lactate [Moles/Vol] 4.0 mmol/L Off scale high 0.5-1.9 [facility] Comment on above: Result Comment: Crit ical Result : Called to and read back by: RADHA MONSALVE at: 07/23/2024 01:22:11 by: Lactic Acid reference range has been updated to 0.5 ? 1.9 mmol/L and the critical range of 2.0 or greater. PERFORMED BY: [place] [address] PATHOLOGIST WELDER OPERATOR KARAN TINSLEY M.D. Performed By: #### C MP, CBC #### [address] Lactic Acid Reflexon 025 Lactic Acid Reflex 1.6 mmol/L Normal 0.5-1.9 [facility] Comment on above: Order Comment: PER R Cindy NANCIE COME BACK AT 0600 Result Comment: Lact ic Acid reference range has been updated to 0.5 ? 1.9 mmol/L and the critical range of 2.0 or greater. PERFORMED BY: [place] [address] PATHOLOGIST WELDER OPERATOR KARAN TINSLEY M.D. Performed By: #### C MP, CBC #### [address] Magnesiumon 07-23-2024 Magnesium Normal 1.9-2.7 [facility] Comment on above: Result Comment: Spec imen hemolyzed, redraw requested PERFORMED BY: [place] [phone] PATHOLOGIST WELDER OPERATOR KARAN TINSLEY M.D. Performed By: #### C MP, CBC #### [facility] [address] [place] [address] Magnesium [Mass/volume] in S lorraine or PlasmaOrdered By: Jon Felder on 07-23-2024 Magnesium [Mass/Vol] Magnesium [Mass/vol ume] in Serum or Plasma 1.9-2.7 [facility] Monocyte distribution width [Entitic volume] in Blood by AutomatedOrdered By: Jon Felder on 07-23-2024 Monocyte distribution width Auto (Bld) [Entitic vol] Monocyte distribution width [Entitic volume] in Blood by Automated 0.00-20.00 [facility] Monocyte distribution width Auto (Bld) [Entitic vol] 18.56 % 0.00-20.00 [facility] No Panel InformationOrdered By: Jhony Davis on 07-23-2024 Arterial Blood Base Excess -2.3 mmol/L -3.0-3.0 [facility] Arterial Blood Oxygen Content 7.8 mmol/L 6.6-9.7 [facility] Arterial Blood Oxygen Saturation 95.8 % 95.0-100.0 [facility] Arterial Blood Partial Pressure CO2 29.7 mm[Hg] Critically low 35.0-45.0 [facility] Arterial Blood Partial Pressure O2 82.4 mm[Hg] 80.0-100.0 [facility] Arterial Blood pH 7.46 High 7.35-7.45 [facility] Blood Gas Critical Value See comment [facility] Comment on above: Critical Value presley d on: 07/23/2024 at 11:06 Blood Gas Sample Site Left radial [facility] FiO2 21 % [facility] No Panel InformationOrdered By: Jon Felder on 07-23-2024 Estimated GFR (CKD-EPI) 51.220 mL/Min [facility] Creatinine Clearance (Chem 35.22 [facility] Potassium [Moles/volume] in Serum or PlasmaOrdered By: Jon Felder on 07-23-2024 Potassium [Moles/Vol] Potassium [Moles/v olume] in Serum or Plasma 3.5-5.1 [facility] Prolactinon 07-23-2024 Prolactin 24.67 ng/mL High 2.74-19.64 [facility] Comment on above: Result Comment: PERF ORMED BY: [facility] [address] [facility] [place] [address] PATHOLOGIST WELDER OPERATOR KARAN TINSLEY M.D. Performed By: #### C MP, CBC #### [facility] [address] [place] [address] Prolactin [Mass/volume] in S lorraine or PlasmaOrdered By: Jon Felder on 07-23-2024 Prolactin [Mass/Vol] Prolactin [Mass/vol ume] in Serum or Plasma High 2.74-19.64 [facility] Prolactin [Mass/Vol] 24.67 ng/mL High 2.74-19.64 [facility] Protein [Mass/volume] in Ser um or PlasmaOrdered By: Jon Felder on 07-23-2024 Protein [Mass/Vol] Protein [Mass/volume ] in Serum or Plasma 6.4-8.9 [facility] Redraw Mary 07-23-2024 AST [Catalytic activity/Vol] 23 U/L Normal 13-39 [facility] Comment on above: Order Comment: HEMOL YZZED Result Comment: PERF ORMED BY: [place] [address] PATHOLOGIST WELDER OPERATOR KARAN TINSLEY M.D. Performed By: #### R EDRAW NA, REDRAW MG, REDRAW K, REDRAW TP, REDRAW AST, REDRAW ALB #### [address] Redraw Albumin Levelon 07-23 Albumin [Mass/Vol] 3.8 g/dL Normal 3.5-5.7 [facility] Comment on above: Order Comment: HEMOL YZZED Performed By: #### R EDRAW NA, REDRAW MG, REDRAW K, REDRAW TP, REDRAW AST, REDRAW ALB #### [address] Redraw MagnesiumOrdered By: Jon Felder on 07-23-2024 Magnesium [Mass/Vol] 2.0 mg/dL 1.9-2.7 [facility] Comment on above: Order Comment: HEMOL YZZED Performed By: #### R EDRAW NA, REDRAW MG, REDRAW K, REDRAW TP, REDRAW AST, REDRAW ALB #### [facility] [address] Redraw Potassiumon Potassium [Moles/Vol] 4.0 mmol/L Normal 3.5-5.1 [facility] Comment on above: Order Comment: HEMOL YZZED Result Comment: Hemo lysis is present at a level that could interfere with the result. Contact lab if redraw is required Performed By: #### R EDRAW NA, REDRAW MG, REDRAW K, REDRAW TP, REDRAW AST, REDRAW ALB #### [facility] [address] [place] [address] Redraw Sodiumon 07-23-2024 Sodium [Moles/Vol] 130 mmol/L Low 136-145 [facility] Comment on above: Order Comment: HEMOL YZZED Performed By: #### R EDRAW NA, REDRAW MG, REDRAW K, REDRAW TP, REDRAW AST, REDRAW ALB #### [facility] [address] [place] [address] Redraw Total Proteinon 07-23 Protein [Mass/Vol] 6.2 g/dL Low 6.4-8.9 [facility] Comment on above: Order Comment: HEMOL YZZED Performed By: #### R EDRAW NA, REDRAW MG, REDRAW K, REDRAW TP, REDRAW AST, REDRAW ALB #### [facility] [address] [place] [address] Serum or plasma albumin/glob ulin mass ratioOrdered By: Jon Felder on 07-23-2024 Albumin/Globulin [Mass ratio] Serum or plasma albumin/globulin mass ratio [facility] Serum or plasma anion gap de terminationOrdered By: Jon Felder on 07-23-2024 Anion gap [Moles/Vol] Serum or plasma an ion gap determination High 6.0-15.0 [facility] Sodium [Moles/volume] in Ser um or PlasmaOrdered By: Jon Felder on 07-23-2024 Sodium [Moles/Vol] Sodium [Moles/volume ] in Serum or Plasma Low 136-145 [facility] Urea nitrogen [Mass/volume] in Serum or PlasmaOrdered By: Jon Felder on 07-23-2024 Urea nitrogen [Mass/Vol] Urea nitrogen [Mass/volume] in Serum or Plasma 10-20 [facility] X-ray reportOrdered By: Sedrick Ferrera on 07-23-2024 Study report [facility] Main [place] [id number] XRay Report Signed Patient: Janelle Burt MR#: [id number] : 1940 Acct:[id number] Age/Sex: 83 / F ADM Date: 5 Loc: Room: [address] [place] [address] Type: ADM IN Attending Dr: Jhony Davis [...] Ferrera M.D. 07/23/2024 1:13 PM Dictation Location: [place] [address] Transcribed By: FUENTES 07/23/24 1313 Dictated By: Charli Ferrera MD 07/23/24 1311 Signed By: 07/23/24 1313 [facility] Work Phone: XR chest 1V portableon 07-23 XR chest 1V portable [facility] Main [address] [address] XRay Report Signed Patient: Janelle Burt MR#: [id number] : 1940 Acct:[id number] Age/Sex: 83 / F ADM Date: 07/22/24 Loc: Room: 4U8062-2 Type: ADM IN Attending Dr: Jhony Davis [...] Ferrera M.D. 07/23/2024 1:13 PM Dictation Location: [place] [address] Transcribed By: FUENTES 07/23/24 1313 Dictated By: Charli Ferrera MD 07/23/24 1311 Signed By: 07/23/24 1313 Normal [facility] Appearance of UrineOrdered B y: Asad Mcnally on 07-22-2024 Appearance (U) Urine appearance Clear [facility] Bacteria [Presence] in Urine by AutomatedOrdered By: Asad Mcnally on 07-22-2024 Bacteria Auto Ql (U) Bacteria [Presence] in Urine by Automated High None Seen [facility] Bacteria Auto Ql (U) 1+ [HPF] High None Seen [facility] Basophils Auto (Bld) [#/Vol] Ordered By: Asad Mcnally on 07-22-2024 Basophils (Bld) [#/Vol] Automated basophil count 0.0-0.2 [facility] Basophils/100 WBC Auto (Bld) Ordered By: Asad Mcnally on 07-22-2024 Basophils/100 WBC (Bld) Automated basophil % . [facility] Bilirubin Test strip Ql (U)O rdered By: Asad Mcnally on 07-22-2024 Bilirubin Ql (U) Bilirubin.total [Pre sence] in Urine by Test strip Negative [facility] Bilirubin Ql (U) Negative Negative [facility] Blood carbon dioxide, total measurement by calculation (moles/volume)Ordered By: Asad Mcnally on 07-22-2024 CO2 Calc (Bld) [Moles/Vol] Blood carbon dioxide, total measurement by calculation (moles/volume) [facility] CO2 Calc (Bld) [Moles/Vol] 25 mmol/L [facility] Chloride (Bld) [Moles/Vol]Or dered By: Asad Mcnally on 07-22-2024 Chloride [Moles/Vol] Whole blood chlorid e measurement Low 98-109 [facility] Color Auto (U)Ordered By: Liza Mcnally on 07-22-2024 Color (U) Color of Urine by Auto Yellow [facility] Complete Blood Count Auto Di ffon 07-22-2024 Basophils (Bld) [#/Vol] 0.1 10*3/uL Normal 0.0-0.2 [facility] Comment on above: Result Comment: PERF ORMED BY: [place] [address] PATHOLOGIST WELDER OPERATOR KARAN TINSLEY M.D. Performed By: #### C UU #### [address] Basophils/100 WBC (Bld) 0.8 % Normal . Eron scott [facility] Comment on above: Performed By: #### C UU #### [address] Eosinophils (Bld) [#/Vol] 0.1 10*3/uL Normal 0.0-0.45 [facility] Comment on above: Performed By: #### C UU #### [address] Eosinophils/100 WBC (Bld) 0.9 % Normal . [facility] Comment on above: Performed By: #### C UU #### [address] Erythrocyte distribution width (RBC) [Ratio] 13.4 % Normal 11.9-15.3 [facility] Comment on above: Performed By: #### C UU #### [address] Hematocrit (Bld) [Volume fraction] 41.2 % Normal 34.0-46.4 [facility] Comment on above: Performed By: #### C UU #### [address] Hemoglobin (Bld) [Mass/Vol] 14.2 g/dL Normal 11.8-15.4 [facility] Comment on above: Performed By: #### C UU #### [address] Lymphocytes (Bld) [#/Vol] 1.7 10*3/uL Normal 1.00-4.8 [facility] Comment on above: Performed By: #### C UU #### [address] Lymphocytes/100 WBC (Bld) 17.6 % Normal . [facility] Comment on above: Performed By: #### C UU #### [address] MCH (RBC) [Entitic mass] 30.6 pg Normal 24.7-34.3 [facility] Comment on above: Performed By: #### C UU #### [address] MCV (RBC) [Entitic vol] 88.7 fL Normal 80-100 [facility] Comment on above: Performed By: #### C UU #### [address] Mean Corpuscular HGB Conc 34.5 g/dL Normal 32.0-35.0 [facility] Comment on above: Performed By: #### C UU #### [address] Monocytes (Bld) [#/Vol] 0.5 10*3/uL Normal 0.0-0.8 [facility] Comment on above: Performed By: #### C UU #### [address] Monocytes/100 WBC (Bld) 18.03 % Normal 0.00-20.00 [facility] Comment on above: Performed By: #### C UU #### [address] Monocytes/100 WBC (Bld) 5.3 % Normal . [facility] Comment on above: Performed By: #### C UU #### [address] Neutrophils (Bld) [#/Vol] 7.4 10*3/uL Normal 1.8-7.7 [facility] Comment on above: Performed By: #### C UU #### [address] Neutrophils/100 WBC (Bld) 75.4 % Normal . [facility] Comment on above: Performed By: #### C UU #### [address] NRBC% 0.1 /100{WBC} Normal 0-0.5 [facility] Comment on above: Performed By: #### C UU #### [address] Platelet mean volume (Bld) [Entitic vol] 7.4 fL Normal 6.3-10.7 [facility] Comment on above: Performed By: #### C UU #### [place] [address] [place] Platelets (Bld) [#/Vol] 228 10*3/uL Normal 150-450 [facility] Comment on above: Performed By: #### C UU #### [place] [address] [place] RBC (Bld) [#/Vol] 4.64 10*6/uL Normal 3.60-5.00 [facility] Comment on above: Performed By: #### C UU #### [address] WBC (Bld) [#/Vol] 9.8 10*3/uL Normal 3.8-11.6 [facility] Comment on above: Performed By: #### C UU #### [address] Comprehensive Metabolic Pane clarita 07-22-2024 Albumin [Mass/Vol] 4.1 g/dL Normal 3.5-5.7 [facility] Comment on above: Performed By: #### C UU #### [address] Albumin/Globulin [Mass ratio] 1.4 {ratio} Normal [facility] Comment on above: Performed By: #### C UU #### [address] ALP [Catalytic activity/Vol] 53 U/L Normal 34-104 [facility] Comment on above: Performed By: #### C UU #### [address] ALT [Catalytic activity/Vol] 12 U/L Normal 7-52 [facility] Comment on above: Performed By: #### C UU #### [address] Anion gap [Moles/Vol] 12.7 mmol/L Normal 6.0-15.0 [facility] Comment on above: Performed By: #### C UU #### [address] AST [Catalytic activity/Vol] 20 U/L Normal 13-39 [facility] Comment on above: Performed By: #### C UU #### [address] Bilirubin [Mass/Vol] 0.9 mg/dL Normal 0.3-1.0 [facility] Comment on above: Performed By: #### C UU #### [address] Calcium [Mass/Vol] 9.5 mg/dL Normal 8.6-10.3 [facility] Comment on above: Performed By: #### C UU #### [address] Chloride [Moles/Vol] 97 mmol/L Low 98-107 [facility] Comment on above: Performed By: #### C UU #### [address] CO2 [Moles/Vol] 24.9 mmol/L Normal 21.0-31.0 [facility] Comment on above: Performed By: #### C UU #### [address] Creatinine [Mass/Vol] 0.99 mg/dL Normal 0.60-1.20 [facility] Comment on above: Performed By: #### C UU #### [address] Creatinine Clr Calc Pharmacy 38.06 Normal [facility] Comment on above: Result Comment: PERF ORMED BY: [place] [address] PATHOLOGIST WELDER OPERATOR KARAN TINSLEY M.D. Performed By: #### C UU #### [address] Estimated GFR 56.226 mL/Min Normal [facility] Comment on above: Performed By: #### C UU #### [address] Globulin (S) [Mass/Vol] 2.9 g/dL Normal T [facility] Comment on above: Performed By: #### C UU #### [address] Glucose [Mass/Vol] 116 mg/dL High 70-100 [facility] Comment on above: Result Comment: Alexis Glucose Reference Range is dependent on time and content of last meal. Glucose of more than 200 mg/dL in a nonstressed, ambulatory subject supports the diagnosis of Diabetes Mellitus. ADA recommended reference range Performed By: #### C UU #### [address] Potassium [Moles/Vol] 3.6 mmol/L Normal 3.5-5.1 [facility] Comment on above: Performed By: #### C UU #### [address] Protein [Mass/Vol] 7.0 g/dL Normal 6.4-8.9 [facility] Comment on above: Performed By: #### C UU #### [address] Sodium [Moles/Vol] 131 mmol/L Low 136-145 [facility] Comment on above: Performed By: #### C UU #### [address] Urea nitrogen [Mass/Vol] 18 mg/dL Normal 7-25 [facility] Comment on above: Performed By: #### C UU #### [address] Creatine KinaseOrdered By: Eron Mcnally on 07-22-2024 CK [Catalytic activity/Vol] 88 U/L [facility] Comment on above: Performed By: #### C UU #### [address] Creatine kinase [Enzymatic a ctivity/volume] in Serum or PlasmaOrdered By: Asad Mcnally on 07-22-2024 CK [Catalytic activity/Vol] Creatine kinase [Enzymatic activity/volume] in Serum or Plasma [facility] Creatinine (Bld) [Mass/Vol]O rdered By: Asad Mcnally on 07-22-2024 Creatinine [Mass/Vol] Whole blood creati nine measurement 0.6-1.3 [facility] Comment on above: ER/ESD physician is notified/shown all ISTAT results.Critical values may be confirmed by laboratory testing ifdeemed necessary by ER attending doctor. Dipstick and MicroscopicOrde red By: Asad Mcnally on 07-22-2024 Appearance (U) Clear Clear [facility] Comment on above: Order Comment: Name Collection Type:: Clean-Voided Midstream Performed By: #### C UU #### [place] [address] [place] Color (U) Light-Yellow Yellow [facility] Comment on above: Order Comment: Name Collection Type:: Clean-Voided Midstream Performed By: #### C UU #### [address] Ketones Ql (U) Negative Negative [facility] Comment on above: Order Comment: Name Collection Type:: Clean-Voided Midstream Performed By: #### C UU #### [address] Leukocyte esterase Test strip Ql (U) 2+ High Negative [facility] Comment on above: Order Comment: Name Collection Type:: Clean-Voided Midstream Performed By: #### C UU #### [place] [address] [place] pH (U) 8.0 [pH] 5.0-9.0 [facility] Comment on above: Order Comment: Name Collection Type:: Clean-Voided Midstream Performed By: #### C UU #### [place] [address] [place] Dipstick and Microscopicon 0 07-22-2024 Bacteria,Urine 1+ High None Seen [facility] Comment on above: Order Comment: Name Collection Type:: Clean-Voided Midstream Performed By: #### C UU #### [place] [address] [place] Bilirubin,Urine Negative Normal Negative [facility] Comment on above: Order Comment: Name Collection Type:: Clean-Voided Midstream Performed By: #### C UU #### [place] [address] [place] Glucose Ql (U) Normal Normal Normal [facility] Comment on above: Order Comment: Name Collection Type:: Clean-Voided Midstream Performed By: #### C UU #### [place] [address] [place] Hyaline Casts,Urine None Normal 0-8 [facility] Comment on above: Order Comment: Name Collection Type:: Clean-Voided Midstream Result Comment: PERF ORMED BY: [place] [address] PATHOLOGIST WELDER OPERATOR KARAN TINSLEY M.D. Performed By: #### C UU #### [address] Nitrite,Urine Negative Normal Negative [facility] Comment on above: Order Comment: Name Collection Type:: Clean-Voided Midstream Performed By: #### C UU #### [address] Occult Blood,Urine Negative Normal Negative [facility] Comment on above: Order Comment: Name Collection Type:: Clean-Voided Midstream Result Comment: PERF ORMED BY: [place] [address] PATHOLOGIST WELDER OPERATOR KARAN TINSLEY M.D. Performed By: #### C UU #### [address] Protein,Urine Negative Normal Negative [facility] Comment on above: Order Comment: Name Collection Type:: Clean-Voided Midstream Performed By: #### C UU #### [address] RBC,Urine 3-4 Normal 0-4 [facility] Comment on above: Order Comment: Name Collection Type:: Clean-Voided Midstream Performed By: #### C UU #### [address] Specificy [place],Urine 1.025 Normal 1.00 1-1.03 0 [facility] Comment on above: Order Comment: Name Collection Type:: Clean-Voided Midstream Performed By: #### C UU #### [address] Urobilinogen,Urine Normal Normal Normal [facility] Comment on above: Order Comment: Name Collection Type:: Clean-Voided Midstream Performed By: #### C UU #### [address] [place] [address] [place] WBC,Urine 20-49 High 0-4 [facility] Comment on above: Order Comment: Name Collection Type:: Clean-Voided Midstream Performed By: #### C UU #### [facility] [address] [place] [id number] [place] ECG 12 lead ECGon 07-22-2024 ECG 12 lead ECG [facility] Main [place] [address] [place] [address] Electrocardiograph Report Signed Patient: Janelle Burt MR#: [id number] : 1940 Acct:[id number] Age/Sex: 83 / F ADM Date: 07/22/24 Loc: Room: [address] [place] [address] Type: ADM IN Attending Dr: Jhony Davis [...] When compared with ECG of 27-Jan-2023 08:53, CT interval has decreased Incomplete right bundle branch block is now present Confirmed by ASAD MCNALLY MD ([id number]) on 07/24/2024 6:00:21 AM Referred By: Electronically Signed By: ASAD MCNALLY MD Transcribed By: MUS Signed By Asad Mcnally Jr, [place] 0600 Normal [facility] Eosinophils Auto (Bld) [#/Vo l]Ordered By: Asad Mcnally on 07-22-2024 Eosinophils (Bld) [#/Vol] Automated eosinophil count 0.0-0.45 [facility] Eosinophils/100 WBC Auto (Bl d)Ordered By: Asad Mcnally on 07-22-2024 Eosinophils/100 WBC (Bld) Automated eosinophil % . [facility] Epithelial cells.squamous [# /area] in Urine sediment by Automated countOrdered By: Asad Mcnally on 07-22-2024 Epithelial cells.squamous Auto (Urine sed) [#/Area] Epithelial cells.squamous [#/area] in Urine sediment by Automated count [facility] Epithelial cells.squamous Auto (Urine sed) [#/Area] N/A [facility] Erythrocyte distribution wid th Auto (RBC) [Ratio]Ordered By: Asad Mcnally on 07-22-2024 Erythrocyte distribution width (RBC) [Ratio] Erythrocyte distribution width [Ratio] by Automated count 11.9-15.3 [facility] Erythrocytes [#/area] in Uri ne sediment by Automated countOrdered By: Asad Mcnally on 07-22-2024 RBC Auto (Urine sed) [#/Area] Erythrocytes [#/area] in Urine sediment by Automated count 0-4 [facility] RBC Auto (Urine sed) [#/Area] 3-4 [HPF] 0-4 [facility] Glucose Glucometer (BldC) [M ass/Vol]Ordered By: Asad Mcnally on 07-22-2024 Glucose [Mass/Vol] Capillary blood gluc ose measurement by glucometer (mass/volume) High 70-105 [facility] Glucose [Mass/Vol] Capillary blood gluc ose measurement by glucometer (mass/volume) [facility] Comment on above: Random Glucose Refer ence Range is dependent on time and content of last meal. Glucose of more than 200 mg/dL in a nonstressed, ambulatory subject supports the diagnosis of Diabetes Mellitus. Glucose Poct GlucometersOrde red By: Asad Mcnally on 07-22-2024 Glucose [Mass/Vol] 113 mg/dL [facility] Comment on above: Result Comment: Alexis Glucose Reference Range is dependent on time and content of last meal. Glucose of more than 200 mg/dL in a nonstressed, ambulatory subject supports the diagnosis of Diabetes Mellitus. PERFORMED BY: [place] [address] PATHOLOGIST WELDER OPERATOR KARAN TINSLEY M.D. Performed By: #### C MP, CBC #### [facility] [address] Random Glucose Refer ence Range is dependent on time and content of last meal. Glucose of more than 200 mg/dL in a nonstressed, ambulatory subject supports the diagnosis of Diabetes Mellitus. Glucose [Mass/volume] in Uri ne by Test stripOrdered By: Asad Mcnally on 07-22-2024 Glucose Test strip (U) [Mass/Vol] Glucose [Mass/volume] in Urine by Test strip Normal [facility] Glucose Test strip (U) [Mass/Vol] Normal mg/dL Normal [facility] Hematocrit Auto (Bld) [Volum e fraction]Ordered By: Asad Mcnally on 07-22-2024 Hematocrit (Bld) [Volume fraction] Hematocrit [Volume Fraction] of Blood by Automated count 34.0-46.4 [facility] Hemoglobin Calc (Bld) [Mass/ Vol]Ordered By: Asad Mcnally on 07-22-2024 Hemoglobin (Bld) [Mass/Vol] Blood hemoglobin measurement by calculation (mass/volume) 12.0-17.0 [facility] Hemoglobin Test strip Ql (U) Ordered By: Asad Mcnally on 07-22-2024 Hemoglobin Ql (U) Hemoglobin [Presence ] in Urine by Test strip Negative [facility] Hemoglobin Ql (U) Negative Negative [facility] Hemoglobin [Mass/volume] in BloodOrdered By: Asad Mcnally on 07-22-2024 Hemoglobin (Bld) [Mass/Vol] Hemoglobin [Mass/volume] in Blood 11.8-15.4 [facility] Hyaline casts [#/area] in Ur ine sediment by Automated countOrdered By: Asad Mcnally on 07-22-2024 Hyaline casts Auto (Urine sed) [#/Area] Hyaline casts [#/area] in Urine sediment by Automated count 0-8 [facility] Hyaline casts Auto (Urine sed) [#/Area] None [LPF] 0-8 [facility] INR in Platelet poor plasma by Coagulation assayOrdered By: Asad Mcnally on 07-22-2024 INR Coag (PPP) [Relative time] INR in Platelet poor plasma by Coagulation assay [facility] Comment on above: INR Therapeutic Rang e [...] 07-22-2024 Chloride [Moles/Vol] 97.0 mmol/L Low 98-109 [facility] Comment on above: Performed By: #### E RBMP #### [address] Creatinine [Mass/Vol] 1.2 mg/dL 0.6-1.3 [facility] Comment on above: Result Comment: ER/E SD physician is notified/shown all ISTAT results. Critical values may be confirmed by laboratory testing if deemed necessary by ER attending doctor. Performed By: #### E RBMP #### [address] ER/ESD physician is notified/shown all ISTAT results.Critical values may be confirmed by laboratory testing ifdeemed necessary by ER attending doctor. Glucose [Mass/Vol] 117 mg/dL High 70-105 [facility] Comment on above: Result Comment: PERF ORMED BY: [place] [address] PATHOLOGIST WELDER OPERATOR KARAN TINSLEY M.D. Performed By: #### E RBMP #### [address] Hematocrit (Bld) [Volume fraction] 43.0 % 38.0-51.0 [facility] Comment on above: Performed By: #### E RBMP #### [address] Hemoglobin (Bld) [Mass/Vol] 14.6 g/dL 12.0-17.0 [facility] Comment on above: Performed By: #### E RBMP #### [address] Potassium [Moles/Vol] 3.7 mmol/L 3.5-4.9 [facility] Comment on above: Performed By: #### E RBMP #### [facility] [address] Sodium [Moles/Vol] 132 mmol/L Low 138-146 [facility] Comment on above: Performed By: #### E RBMP #### [facility] [address] Urea nitrogen [Mass/Vol] 18 mg/dL 11-21 [facility] Comment on above: Performed By: #### E RBMP #### [facility] [address] [place] [address] [place] ISTAT ER Chem8+ Panelon 06-28 CO2 [Moles/Vol] 25 mmol/L Normal 23-29 [facility] Comment on above: Performed By: #### E RBMP #### [facility] [address] [place] [address] ISTAT Ionized Calcium 1.18 mol/L Normal 1.12-1.32 [facility] Comment on above: Performed By: #### E RBMP #### [facility] [address] [place] [address] Ketones Test strip Ql (U)Ord ered By: Asad Mcnally on 07-22-2024 Ketones Ql (U) Ketones [Presence] i n Urine by Test strip Negative [facility] Leukocyte esterase [Presence ] in Urine by Test stripOrdered By: Asad Mcnally on 07-22-2024 Leukocyte esterase Test strip Ql (U) Leukocyte esterase [Presence] in Urine by Test strip High Negative [facility] Leukocytes [#/area] in Urine sediment by Automated countOrdered By: Asad Mcnally on 07-22-2024 WBC Auto (Urine sed) [#/Area] Leukocytes [#/area] in Urine sediment by Automated count High 0-4 [facility] WBC Auto (Urine sed) [#/Area] 20-49 [HPF] High 0-4 [facility] Leukocytes [#/volume] correc chacho for nucleated erythrocytes in Blood by Automated counOrdered By: Asad Mcnally on 07-22-2024 WBC corrected for nucl RBC Auto (Bld) [#/Vol] Leukocytes [#/volume] corrected for nucleated erythrocytes in Blood by Automated coun 3.8-11.6 [facility] Lymphocytes Auto (Bld) [#/Vo l]Ordered By: Asad Mcnally on 07-22-2024 Lymphocytes (Bld) [#/Vol] Lymphocytes [#/volume] in Blood by Automated count 1.00-4.8 [facility] Lymphocytes/100 WBC Auto (Bl d)Ordered By: Asad Mcnally on 07-22-2024 Lymphocytes/100 WBC (Bld) Lymphocytes/100 leukocytes in Blood by Automated count . [facility] MCH Auto (RBC) [Entitic mass ]Ordered By: Asad Mcnally on 07-22-2024 MCH (RBC) [Entitic mass] MCH [Entitic mass] by Automated count 24.7-34.3 [facility] MCHC Auto (RBC) [Mass/Vol]Or dered By: Asad Mcnally on 07-22-2024 MCHC (RBC) [Mass/Vol] MCHC [Mass/volume] by Automated count 32.0-35.0 [facility] MCV Auto (RBC) [Entitic vol] Ordered By: Asad Mcnally on 07-22-2024 MCV (RBC) [Entitic vol] MCV [Entitic vol ume] by Automated count 80-100 [facility] Monocyte distribution width [Entitic volume] in Blood by AutomatedOrdered By: Asad Mcnally on 07-22-2024 Monocyte distribution width Auto (Bld) [Entitic vol] Monocyte distribution width [Entitic volume] in Blood by Automated 0.00-20.00 [facility] Monocytes Auto (Bld) [#/Vol] Ordered By: Asad Mcnally on 07-22-2024 Monocytes (Bld) [#/Vol] Automated blood monocyte count 0.0-0.8 [facility] Monocytes/100 WBC Auto (Bld) Ordered By: Asad Mcnally on 07-22-2024 Monocytes/100 WBC (Bld) Automated monocyte % . [facility] Neutrophils Auto (Bld) [#/Vo l]Ordered By: Asad Mcnally on 07-22-2024 Neutrophils (Bld) [#/Vol] Neutrophils [#/volume] in Blood by Automated count 1.8-7.7 [facility] Neutrophils/100 WBC Auto (Bl d)Ordered By: Asad Mcnally on 04-26-2025 Neutrophils/100 WBC (Bld) Automated neutrophil % . [facility] Nitrite Test strip Ql (U)Ord ered By: Asad Mcnally on 07-22-2024 Nitrite Ql (U) Nitrite [Presence] i n Urine by Test strip Negative [facility] Nitrite Ql (U) Negative Negative [facility] Nucleated erythrocytes [Pres ence] in Blood by Automated countOrdered By: Asad Mcnally on 07-22-2024 Nucleated RBC Auto Ql (Bld) Nucleated erythrocytes [Presence] in Blood by Automated count 0-0.5 [facility] Partial Thromboplastin Timeo n 07-22-2024 aPTT Coag (Bld) [Time] 33.6 s Normal 25.1-36.5 [facility] Comment on above: Result Comment: A he matocrit value greater than 55% may lead to inaccurate results in coagulation testing. Patients having hematocrit values >55% require a special collection tube for coagulation studies. Please contact the laboratory at [phone] for redraw instructions. PERFORMED BY: [place] [address] PATHOLOGIST WELDER OPERATOR KARAN TINSLEY M.D. Performed By: #### C UU #### [address] Platelet mean volume Auto (B ld) [Entitic vol]Ordered By: Asad Mcnally on 07-22-2024 Platelet mean volume (Bld) [Entitic vol] Platelet mean volume [Entitic volume] in Blood by Automated count 6.3-10.7 [facility] Platelets Auto (Bld) [#/Vol] Ordered By: Asad Mcnally on 07-22-2024 Platelets (Bld) [#/Vol] Platelets [#/vol ume] in Blood by Automated count 150-450 [facility] Potassium (Bld) [Moles/Vol]O rdered By: Asad Mcnally on 07-22-2024 Potassium [Moles/Vol] Whole blood potass ium measurement 3.5-4.9 [facility] Protein Test strip (U) [Mass /Vol]Ordered By: Asad Mcnally on 07-22-2024 Protein (U) [Mass/Vol] Protein [Mass/vol ume] in Urine by Test strip Negative [facility] Protein (U) [Mass/Vol] Negative Negative [facility] Prothrombin Time INROrdered By: Asad Mcnally on 07-22-2024 INR Coag (PPP) [Relative time] 1.3 {INR} [facility] Comment on above: Result Comment: INR Therapeutic [...] 4.5 Performed By: #### C UU #### [facility] [address] [place] [address] INR Therapeutic Rang e A) Pre- and [...] Coag (PPP) [Time] 14.9 s High 9.0-12.9 [facility] Comment on above: Result Comment: A he matocrit value greater than 55% may lead to inaccurate results in coagulation testing. Patients having hematocrit values >55% require a special collection tube for coagulation studies. Please contact the laboratory at [phone] for redraw instructions. Performed By: #### C UU #### [facility] [address] [place] [address] A hematocrit value g reater than 55% may lead to inaccurate results in coagulation testing. Patients having hematocrit values >55% require a special collection tube for coagulation studies. Please contact the laboratory at [phone] for redraw instructions. Prothrombin time (PT)Ordered By: Asad Mcnally on 07-22-2024 PT Coag (PPP) [Time] Prothrombin time (PT) High 9.0- 12.9 [facility] Comment on above: A hematocrit value g reater than 55% may lead to inaccurate results in coagulation testing. Patients having hematocrit values >55% require a special collection tube for coagulation studies. Please contact the laboratory at [phone] for redraw instructions. RBC Auto (Bld) [#/Vol]Ordere d By: Asad Mcnally on 07-22-2024 RBC (Bld) [#/Vol] Erythrocytes [#/volu me] in Blood by Automated count 3.60-5.00 [facility] Sodium (Bld) [Moles/Vol]Orde red By: Asad Mcnally on 07-22-2024 Sodium [Moles/Vol] Whole blood sodium measurement Low 138-146 [facility] Specific gravity Test strip (U) [Rel density]Ordered By: Asad Mcnally on 07-22-2024 Specific gravity (U) [Rel density] Specific gravity of Urine by Test strip 1.001-1.03 0 [facility] Specific gravity (U) [Rel density] 1.025 1.001-1.03 0 [facility] Troponin I High Sensitivityo n 07-22-2024 Troponin I High Sensitivity 9 Normal 0-15 [facility] Comment on above: Result Comment: The Troponin units of report have been changed to meet the Chest Pain Accreditation requirement, element EC5.M1l2. Troponin units are changed from pg/ml to ng/L. Also, the decimal is removed and results are in whole numbers. PERFORMED BY: [place] [address] PATHOLOGIST WELDER OPERATOR KARAN TINSLEY M.D. Performed By: #### C UU #### [address] Troponin I.cardiac [Mass/vol ume] in Serum or Plasma by Detection limit <= 0.01 ng/Ordered By: Asad Mcnally on 07-22-2024 Troponin I.cardiac DL <= 0.01 ng/mL [Mass/Vol] Troponin I.cardiac [Mass/volume] in Serum or Plasma by Detection limit <= 0.01 ng/ 0-15 [facility] Comment on above: The Troponin units o [...] <= 0.01 ng/mL [Mass/Vol] 9 ng/L 0-15 [facility] Comment on above: The Troponin units o f report have been changed to meet the Chest Pain Accreditation requirement, element EC5.M1l2. Troponin units are changed from pg/ml to ng/L. Also, the decimal is removed and results are in whole numbers. Urea nitrogen (Bld) [Mass/Vo l]Ordered By: Asad Mcnally on 07-22-2024 Urea nitrogen [Mass/Vol] Blood urea nitrogen (BUN) measurement in whole blood (mass/volume) 11-21 [facility] Urine Cultureon 07-22-2024 Bacteria identified Cx Nom (U) ORGANISM: Pseudomonas aeruginosa (O:PSEAER) Newberg Count <10,000 Aerobic TONY Charge (NMIC56) SUSCEPTIBILITY [...] RESISTANT TO ALL B-LACTAM DRUGS. PERFORMED BY: [address] [place] [address] PATHOLOGIST WELDER OPERATOR KARAN TINSLEY M.D. Normal [facility] Comment on above: Performed By: #### C UU #### [facility] [address] [id number] [facility] Urine cultureOrdered By: Biju Mcnally on 07-22-2024 Bacteria identified Cx Nom (U) Abnormal [facility] Bacteria identified Cx Nom (U) Pseudomonas aeruginosa Abnormal [facility] Urobilinogen Test strip (U) [Mass/Vol]Ordered By: Asad Mcnally on 07-22-2024 Urobilinogen (U) [Mass/Vol] Urobilinogen [Mass/volume] in Urine by Test strip Normal [facility] Urobilinogen (U) [Mass/Vol] Normal mg/dL Normal [facility] WBC Auto (Bld) [#/Vol]Ordere d By: Asad Mcnally on 07-22-2024 WBC (Bld) [#/Vol] Leukocytes [#/volume ] in Blood by Automated count 3.8-11.6 [facility] Whole blood ionized calcium measurement (moles/volume)Ordered By: Asad Mcnally on 07-22-2024 Calcium.ionized (Bld) [Moles/Vol] Whole blood ionized calcium measurement (moles/volume) 1.12-1.32 [facility] Calcium.ionized (Bld) [Moles/Vol] 1180 mmol/L 1.12-1.32 [facility] aPTT in Platelet poor plasma by Coagulation assayOrdered By: Asad Mcnally on 07-22-2024 aPTT Coag (PPP) [Time] Activated partial thromboplastin time (aPTT) in platelet poor plasma by coagulation a 25.1-36.5 [facility] Comment on above: A hematocrit value g reater than 55% may lead to inaccurate results in coagulation testing. Patients having hematocrit values >55% require a special collection tube for coagulation studies. Please contact the laboratory at [phone] for redraw instructions. aPTT Coag (PPP) [Time] 33.6 s 25.1-36.5 [facility] Comment on above: A hematocrit value g reater than 55% may lead to inaccurate results in coagulation testing. Patients having hematocrit values >55% require a special collection tube for coagulation studies. Please contact the laboratory at [phone] for redraw instructions. pH Test strip (U)Ordered By: Asad Mcnally on 07-22-2024 pH (U) pH of Urine by Test strip 5.0-9.0 [facility] ALL LIPID PROFILE (FASTING)o n 06-29-2024 CHOL HDL RATIO 2.2 [facility] Comment on above: 3.3 - 4.4 LOW RISK 4.4 - 7.1 AVERAGE RISK 7.1 - 11.0 MODERATE RISK >11.0 HIGH RISK Cholesterol [Mass/Vol] 126 mg/dL NINF - 200 mg/dL [facility] Cholesterol in HDL [Mass/Vol] 56 mg/dL 40 - 60 mg/dL [facility] Comment on above: > or =60 mg/dl - LOW CARDIOVASCULAR RISK <40 mg/dl - HIGH CARDIOVASCULAR RISK Magnesium [Mass/Vol] 54.6 mg/dL [facility] Comment on above: <100 mg/dl OPTIMAL 100-129 mg/dl NEAR OR ABOVE OPTIMAL 130-159 mg/dl BORDERLINE HIGH 160-189 mg/dl HIGH >190 mg/dl VERY HIGH Magnesium [Mass/Vol] 15.4 mg/dL [facility] Triglyceride [Mass/Vol] 77 mg/dL NINF - 150 mg/dL [facility] Cholesterol in LDL Calc [Mas s/Vol]on 06-29-2024 Cholesterol in LDL [Mass/Vol] Cholesterol in LDL [Mass/volume] in Serum or Plasma by calculation [facility] Comment on above: <100 mg/dl [id number] 0-129 mg/dl NEAR OR ABOVE [id number] mg/dl BORDERLINE PRED311-255 mg/dl HIGH>190 mg/dl VERY HIGH Cholesterol in LDL [Mass/Vol] 54.6 mg/dL [facility] Comment on above: <100 mg/dl [id number] 0-129 mg/dl NEAR OR ABOVE [id number] mg/dl BORDERLINE [id number] mg/dl HIGH>190 mg/dl VERY HIGH Cholesterol in VLDL Calc [Ma ss/Vol]on 06-29-2024 Cholesterol in VLDL [Mass/Vol] Cholesterol in VLDL [Mass/volume] in Serum or Plasma by calculation [facility] Cholesterol in VLDL [Mass/Vol] 15.4 mg/dL [facility] Globulin Calc (S) [Mass/Vol] on 06-29-2024 Globulin (S) [Mass/Vol] Serum globulin m easurement by calculation (mass/volume) [facility] Globulin (S) [Mass/Vol] 3.2 g/dL F [facility] HMHP LIVER PANELon Albumin [Mass/Vol] 3.3 g/dL Low 3.4 - 5.0 g/dL [facility] ALBUMIN GLOBULIN RATIO 1 NO [facility] ALP [Catalytic activity/Vol] 66 U/L 46 - 116 U/L [facility] ALT [Catalytic activity/Vol] 15 U/L 14 - 59 U/L [facility] AST [Catalytic activity/Vol] 19 U/L 15 - 37 U/L [facility] Bilirubin [Mass/Vol] 0.5 mg/dL 0.2 - 1 .0 mg/dL [facility] Bilirubin.indirect [Mass/Vol] 0.2 mg/dL 0.0 - 0.2 mg/dL [facility] Globulin (S) [Mass/Vol] 3.2 g/dL N [facility] Interpretation and review of laboratory results Abnormal [facility] Protein [Mass/Vol] 6.5 g/dL 6.4 - 8.2 g/dL [facility] Laboratory - Chemistry and C hemistry - challengeon 06-29-2024 Albumin [Mass/Vol] 3.3 g/dL Low 3.4-5.0 [facility] ALP [Catalytic activity/Vol] 66 U/L 46-116 [facility] ALT [Catalytic activity/Vol] 15 U/L 14-59 [facility] AST [Catalytic activity/Vol] 19 U/L 15-37 [facility] Bilirubin [Mass/Vol] 0.5 mg/dL 0.2-1.0 [facility] Bilirubin.direct [Mass/Vol] 0.2 mg/dL 0.0-0.2 [facility] Cholesterol [Mass/Vol] 126 mg/dL <=200 Fi [facility] Cholesterol in HDL [Mass/Vol] 56 mg/dL 40-60 [facility] Comment on above: > or =60 mg/dl - LOW CARDIOVASCULAR RISK<40 mg/dl - HIGH CARDIOVASCULAR RISK Protein [Mass/Vol] 6.5 g/dL 6.4-8.2 [facility] Triglyceride [Mass/Vol] 77 mg/dL <=150 F [facility] Serum or plasma albumin/glob ulin mass ratioon 06-29-2024 Albumin/Globulin [Mass ratio] Serum or plasma albumin/globulin mass ratio [facility] Albumin/Globulin [Mass ratio] 1.0 {ratio} [facility] Serum or plasma total choles terol/high density lipoprotein (HDL) cholesterol mass andrew 06-29-2024 Cholesterol.total/Shira sterol in HDL [Mass ratio] Serum or plasma total cholesterol/high density lipoprotein (HDL) cholesterol mass rat [facility] Comment on above: 3.3 - 4.4 LOW RISK4. 4 - 7.1 AVERAGE RISK7.1 - 11.0 MODERATE RISK>11.0 HIGH RISK Cholesterol.total/Shira sterol in HDL [Mass ratio] 2.2 {ratio} [facility] Comment on above: 3.3 - 4.4 LOW RISK4. 4 - 7.1 AVERAGE RISK7.1 - 11.0 MODERATE RISK>11.0 HIGH RISK Erythrocyte distribution wid th Auto (RBC) [Ratio]on 03-21-2024 Erythrocyte distribution width (RBC) [Ratio] Erythrocyte distribution width [Ratio] by Automated count 11.0-15.0 [facility] Estimated glomerular filtrat ion rate (GFR) non- Americanon 03-21-2024 GFR/1.73 sq M.predicted among non-blacks MDRD (S/P/Bld) [Vol rate/Area] Estimated glomerular filtration rate (GFR) non- Low >=60 mL/min/1.7 3m 2 [facility] Hematocrit Auto (Bld) [Volum e fraction]on 03-21-2024 Hematocrit (Bld) [Volume fraction] Hematocrit [Volume Fraction] of Blood by Automated count 36.0-48.0 [facility] Hemoglobin [Mass/volume] in Bloodon 03-21-2024 Hemoglobin (Bld) [Mass/Vol] Hemoglobin [Mass/volume] in Blood 12.0-16.0 [facility] Laboratory - Chemistry and C hemistry - challengeon 03-21-2024 Bilirubin Ql (U) Negative NEGATIVE [facility] Glucose (U) [Mass/Vol] Negative NEGATIVE [facility] Ketones Ql (U) Negative NEGATIVE [facility] pH (U) 6.0 [pH] 5.0-9.0 [facility] Specific gravity (U) [Rel density] 1.010 1.005-1.02 5 [facility] Urobilinogen Qn (U) 0.2 {Carlos'U}/dL 0.2-1.0 [facility] Albumin [Mass/Vol] 3.7 g/dL 3.4-5.0 [facility] Calcium [Mass/Vol] 9.6 mg/dL 8.5-10.1 [facility] Chloride [Moles/Vol] 98 mmol/L 98-107 [facility] CO2 [Moles/Vol] 31.5 mmol/L 21.0-32.0 [facility] Creatinine [Mass/Vol] 1.22 mg/dL High 0.55-1.02 [facility] Free T4 [Mass/Vol] 1.46 ng/dL 0.76-1.46 [facility] GFR/1.73 sq M.predicted MDRD (S/P/Bld) [Vol rate/Area] 51 mL/min/{1.73_m2} Low >=60 mL/min/1.7 3m 2 [facility] Glucose [Mass/Vol] 92 mg/dL 74-106 [facility] Magnesium [Mass/Vol] 1.9 mg/dL 1.8-2.4 [facility] Potassium [Moles/Vol] 4.0 mmol/L 3.5-5.1 [facility] Sodium [Moles/Vol] 136 mmol/L 136-145 [facility] TSH Qn 2.019 m[IU]/L 0.358-3.74 0 [facility] Urate [Mass/Vol] 4.4 mg/dL 2.6-6.0 [facility] Urea nitrogen [Mass/Vol] 30.0 mg/dL High 7.0-18.0 [facility] Urea nitrogen/Creatinine [Mass ratio] 24.6 mg/mg [facility] Laboratory - Specimen inform ationon 03-21-2024 Appearance (U) CLEAR CLEAR [facility] Color (U) LT. YELLOW YELLOW [facility] Laboratory - Urinalysison Leukocyte esterase Test strip Ql (U) TRACE Abnormal NEGATIVE [facility] Mucus Ql (Urine sed) TRACE Abnormal NONE SEEN [facility] Nitrite Ql (U) Negative NEGATIVE [facility] Protein (U) [Mass/Vol] 7.5 mg/dL <=11.9 [facility] Protein Ql (U) Negative NEG/TRACE [facility] Leukocytes [#/volume] correc chacho for nucleated erythrocytes in Blood by Automated counon 03-21-2024 WBC corrected for nucl RBC Auto (Bld) [#/Vol] Leukocytes [#/volume] corrected for nucleated erythrocytes in Blood by Automated coun 4.0-11.0 [facility] MCH Auto (RBC) [Entitic mass ]on 03-21-2024 MCH (RBC) [Entitic mass] MCH [Entitic mass] by Automated count 26.7-34.0 [facility] MCHC Auto (RBC) [Mass/Vol]on 03-21-2024 MCHC (RBC) [Mass/Vol] MCHC [Mass/volume] by Automated count 29.9-35.2 [facility] MCV Auto (RBC) [Entitic vol] on 03-21-2024 MCV (RBC) [Entitic vol] MCV [Entitic vol ume] by Automated count 81.0-99.0 [facility] No Panel Informationon 03-21 Urine Bacteria TRACE #/HPF Abnormal NONE SEEN [facility] Urine Culture Reflexed NO [facility] Urine Occult Blood Negative NEGATIVE [facility] Urine Other Casts NONE SEEN #/LPF NONE SEEN [facility] Urine Other Crystals None Seen #/HPF None Seen [facility] Urine Random Creatinine 84.33 mg/dL 20.0 0-300. 00 [facility] Urine RBC 0-2 #/HPF 0-2 [facility] Urine Squamous Epithelial Cells FEW #/LPF Abnormal NONE/RARE [facility] Urine WBC 0-2 #/HPF Abnormal NONE SEEN [facility] 25-Hydroxy Vitamin D Total 65.9 ng/mL [facility] Comment on above: <20 ng/mL Vit D defi cient20-<30 ng/mL Vit D fpztftiucofq45-258 ng/mL Vit D sufficient>100 ng/mL Potential Toxicity Parathyroid Hormone (Intact) 16 pg/mL 15-65 [facility] Comment on above: Performed at: [place] [id number] Director: Lux Adorno PhD, Phone: [phone] Phosphorus Level 3.7 mg/dL 2.6-4.7 [facility] Platelet mean volume Auto (B ld) [Entitic vol]on 03-21-2024 Platelet mean volume (Bld) [Entitic vol] Platelet mean volume [Entitic volume] in Blood by Automated count Low 9.5-13.5 [facility] Platelets Auto (Bld) [#/Vol] on 03-21-2024 Platelets (Bld) [#/Vol] Platelets [#/vol ume] in Blood by Automated count 150-450 [facility] RBC Auto (Bld) [#/Vol]on RBC (Bld) [#/Vol] Erythrocytes [#/volu me] in Blood by Automated count 4.20-5.40 [facility] Serum or plasma anion gap de terminationon 03-21-2024 Anion gap [Moles/Vol] Serum or plasma an ion gap determination [facility] Urine protein/creatinine rat ioon 03-21-2024 Protein/Creatinine (U) [Ratio] Urine protein/creatinine ratio [facility] ED Note-Physicianon 03-10-20 ED Note-Physician ED Note-Physician Basic Information Time Seen: Julio Escalante PA-C 03/06/2024 14:57 Chief Complaint Pt to ED for vision changes. Has had issues intermittently since january. Went to [facility] who sent over for stroke [...] made to ensure accuracy, however, inadvertently computerized professor of radiology mistakes may be present. Appropriate healthcare PPE [...] 15:17:00) Lymph Auto: 25 % (03/06/24 15:17:00) [place] Auto: 10.2 % (03/06/24 15:17:00) Eos Auto: 1 % (12/ (more content not included)... Normal [facility] Comment on above: Result Comment: [...] Locations R1: This test was performed at: [facility], [address] [place] [address], [facility] , , [facility] Comment on above: Performed By: #### 2 [id number] #### [facility] [address] [place] [address] Lab Miscellaneous-LCon 03-08 Lab Miscellaneous COMMENT Invalid Interpretation Code [facility] Comment on above: Result Comment: Test Ordered: [id number] Hemoglobin A1c Hemoglobin A1c 5.4 % CB Reference Range: 4.8-5.6 Prediabetes: 5.7 - 6.4 Diabetes: >6.4 Glycemic control for adults with diabetes: <7.0 Performed at: [facility] [address], [place] [id number] PhD Tila Wasserman Performed By: #### 1 [id number] #### [facility] [address] [place] [address] BMPon 03-07-2024 Anion gap [Moles/Vol] 11 mmol/L Normal 6-[address] [facility] Comment on above: Performed By: #### 2 [id number] #### [facility] [address] [place] [address] Calcium [Mass/Vol] 9.3 mg/dL Normal 8.9-11.1 [facility] Comment on above: Performed By: #### 2 [id number] #### [facility] [address] [place] [address] Chloride [Moles/Vol] 97 mmol/L Low 101-111 [facility] Comment on above: Performed By: #### 2 [id number] #### [facility] [address] [place] [address] CO2 [Moles/Vol] 26 mmol/L Normal 21-31 [facility] Comment on above: Performed By: #### 2 [id number] #### [facility] [address] [place] [address] Creatinine [Mass/Vol] 0.9 mg/dL Normal 0.5-1.[address] [facility] Comment on above: Performed By: #### 2 [id number] #### [facility] [address] [place] [address] Glucose [Mass/Vol] 109 mg/dL Normal 55-199 [facility] Comment on above: Performed By: #### 2 [id number] #### [facility] [address] [place] [address] Potassium [Moles/Vol] 3.8 mmol/L Normal 3.5-5.[address] [facility] Comment on above: Performed By: #### 2 [id number] #### [facility] [address] [place] [address] Sodium [Moles/Vol] 130 mmol/L Low 135-145 [facility] Comment on above: Performed By: #### 2 [id number] #### [facility] [address] [place] [address] Urea nitrogen [Mass/Vol] 16 mg/dL Normal 5-21 [facility] Comment on above: Performed By: #### 2 [id number] #### [facility] [address] [place] [address] Urea nitrogen/Creatinine [Mass ratio] 18 No Units Normal 10-20 [facility] Comment on above: Performed By: #### 2 [id number] #### [facility] [address] [place] [address] CBC w/ Auto Diffon 4 Basophils/100 WBC (Bld) 0.5 % Normal 0.0-2.0 [facility] Comment on above: Performed By: #### 2 [id number] #### [facility] [address] [place] [id number] Basophils/Leukocytes Auto (Bld) [Pure # fraction] 0.0 E9/L Normal 0.0-0.2 [facility] Center Comment on above: Performed By: #### 2 [id number] #### [facility] [address] [place] [address] Eosinophils (Bld) [#/Vol] 0.1 E9/L Normal 0.0-0.5 [facility] Comment on above: Performed By: #### 2 [id number] #### [facility] [address] [place] [address] Eosinophils/100 WBC (Bld) 0.8 % Normal 0.0-8.0 [facility] Comment on above: Performed By: #### 2 [id number] #### [facility] [address] [place] [address] Erythrocyte distribution width (RBC) [Ratio] 13.6 % Normal 10.9-14.2 [facility] Comment on above: Performed By: #### 2 [id number] #### [facility] [address] [place] [address] Hematocrit (Bld) [Volume fraction] 42.2 % Normal 34.0-46.0 [facility] Comment on above: Performed By: #### 2 [id number] #### [facility] [address] [place] [address] Hemoglobin (Bld) [Mass/Vol] 15.0 g/dL Normal 12.0-16.0 [facility] Comment on above: Performed By: #### 2 [id number] #### [facility] [address] [place] [address] Lymphocytes (Bld) [#/Vol] 1.2 E9/L Normal 1.0-4.0 [facility] Comment on above: Performed By: #### 2 [id number] #### [facility] [address] [place] [address] Lymphocytes/100 WBC (Bld) 13.0 % Low 14.0-50.0 [facility] Comment on above: Performed By: #### 2 [id number] #### [facility] [address] [place] [address] MCH (RBC) [Entitic mass] 31.3 pg Normal 27.0-34.0 [facility] Comment on above: Performed By: #### 2 [id number] #### [facility] [address] [place] [address] MCHC (RBC) [Mass/Vol] 35.7 g/dL Normal 31.4-36.[address] [facility] Comment on above: Performed By: #### 2 [id number] #### [facility] [address] [place] [address] MCV (RBC) [Entitic vol] 87.8 fL Normal 80.0-100.0 [facility] Comment on above: Performed By: #### 2 [id number] #### [facility] [address] [place] [address] Monocytes (Bld) [#/Vol] 0.9 E9/L Normal 0.2-1.0 [facility] Comment on above: Performed By: #### 2 845582 #### [facility] [address] [place] [address] Neutrophils (Bld) [#/Vol] 7.2 E9/L Normal 2.0-7.5 [facility] Comment on above: Performed By: #### 2 [id number] #### [facility] [address] [place] [address] Neutrophils/100 WBC (Bld) 76.5 % High 36.0-75.0 [facility] Comment on above: Performed By: #### 2 [id number] #### [facility] [address] [place] [address] Platelet mean volume (Bld) [Entitic vol] 7.7 fL Normal 6.4-10.8 [facility] Comment on above: Performed By: #### 2 326806 #### [facility] [address] [place] [address] Platelets (Bld) [#/Vol] 218.0 E9/L Normal 150. 0-500. 0 [facility] Comment on above: Performed By: #### 2 397030 #### [facility] [address] [place] [address] RBC (Bld) [#/Vol] 4.8 E12/L Normal 4.3-5.9 [facility] Comment on above: Performed By: #### 2 167696 #### [facility] [address] [place] [address] WBC corrected for nucl RBC Auto (Bld) [#/Vol] 9.4 E9/L Normal 4.0-11.0 [facility] Comment on above: Performed By: #### 2 [id number] #### [facility] [address] [place] [address] CHEMISTRYOrdered By: SYSTEM SYSTEM on 03-07-2024 Anion [...] 370 Contrast amount in ml's: 100 Normal [facility] CTA Neckon 03-07-2024 CTA Neck [...] of the vertebrobasilar circulation with small caliber obstetrics gynecology physician, without distinct focal high-grade proximal stenosis of the obstetrics gynecology physician within limits of the small caliber. Dural venous sinuses: Visualized dural venous sinuses are patent. Ordering Provider: Abdulkadir Amaro FINAL REPORT Dictated: 03/07/2024 12:27 pm Marlon Flores MD Signed (Electronic Signature): 03/07/2024 12:27 pm Signed by: Marlon Flores MD Transcribed by: IGOR Technologist: DOMENICO Technical Comments GFR (mL/min/1/73m2) >60 Contrast: Isovue 370 Contrast amount in ml's: 100 Normal [facility] HEMATOLOGYOrdered By: SYSTEM SYSTEM on [...] 03-07-2024 Inpatient Clinical Summary Inpatient Clinical Summary [place] [address] Clinical Summary Person Information: Name: JANELLE BURT Age: 83 Years : 1940 Sex: Female PCP: ANTONINO GUSTAFSON MD Marital Status: Single Race: White Ethnicity: Non- or Language: Togolese Visit Id: Visit Reason: Vision changes; SENT BY EYE DOCTOR - POSSIBLE STROKE Speciality: Acuity: Enc Type: Observation Med Service: Medical Arrival: 03/06/2024 14:47:18 Discharge: Dispo Type: Admitted as IP to this [facility] Address: [address] [place] [id number] Provider Notes: Diagnosis: 1:CVA (cerebrovascular accident); 2:HTN [...] Follow up: With: Address: When: [place] [address] Within 5 to 7 days Comments: Call for followup appointment to talk about switching from Eliquis to Coumadin once you are out of Eliquis With: Address: When: Kamar [place]obar [place] [phone] Within 2 to 4 weeks Patient Education Information: Atrial Fibrillation, Tsrt-[id number]-[id number]; Core Measures: Stroke (Cerebrovascular Accident) [facility], (CUSTOM) [facility] Inpatient Patient Summaryon 03-07-2024 Inpatient Patient [...] once you are out of Eliquis Where: [address] [place] [address]- Follow Up with Shawn MORA, YVES Galvin When: Within 2 to 4 weeks Where: [address] [address]- Medications What How Much When Instructions Next Dose New atorvastatin (atorvastatin 40 mg Tab) 1 Tablets By Mouth At bedtime Pickup at [facility]/pharmacy #[id number] 03/07 0900PM Changed apixaban (Eliquis 5 mg [...] as needed for chest pain Pharmacy Information [facility]/pharmacy #[id number]: [address], [place] [id number] [phone] Test Results CBC BMP WBC: 9.4 E9/L [...] ??? Y (more content not included)... Normal [facility] Interdisciplinary Note - Rikki e Manageron 03-07-2024 Interdisciplinary Note - Miter Operator Interdisciplinary Note - Miter Operator CRM to room 304 Patient is awake, [...] it will work until that date comes [facility] for transport. Patient has family assistance as needed Transport flyers are in admission folder Patient does not need to meet for Advance Directives [facility] Comment on above: Result Comment: Elec tronically Signed By: Yaneli Day\.br\Date and Time Signed: 03/07/24 15:09 EST Interdisciplinary Note - Berkley n 03-07-2024 Interdisciplinary Note - OT Interdisciplinary Note - OT OT [facility] six clicks score 22/ = no further inpatient OT needs. However, discussed referral to outpatient OT for evaluation of visual field cuts and education on retraining, remediation and home program/home safety techniques to optimize improvement. Patient is agreeable but is unable to drive. Patient reports she would be interested in senior services transportation if available. DC inpatient OT needs. Normal [facility] Interdisciplinary Note - Spe ech Languageon 03-07-2024 Interdisciplinary Note - Speech Language Interdisciplinary Note - Speech Language ST 03/07/24: per nursing no issues noted. pt with regular breakfast tray present, reports no issues with talking or swallowing. will cancel order at this time. please reconsult as needed. nursing aware/in agreement. Normal [facility] Miscellaneous-LCon 03-07 Test Code 466496 Invalid Interpretation Code [facility] Comment on above: Performed By: #### 1 [id number] #### [facility] [address] [place] [address] Test Name HbA1c Invalid Interpretation Code [facility] Comment on above: Performed By: #### 1 [id number] #### [facility] [address] [place] [address] Lipid Panelon 03-07-2024 Cholesterol [Mass/Vol] 160 mg/dL Normal 120-200 [facility] Comment on above: Performed By: #### 2 [id number] #### [facility] [address] [place] [address] Cholesterol in HDL [Mass/Vol] 49 mg/dL Invalid Interpretation Code [facility] Comment on above: Result Comment: '>= 60 LOW RISK' '<= 40 HIGH RISK' Performed By: #### 2 [id number] #### [facility] [address] [place] [address] Cholesterol in LDL [Mass/Vol] 100 mg/dL Normal <=129 [facility] Comment on above: Performed By: #### 2 067251 #### [facility] [address] [place] [address] Cholesterol in VLDL [Mass/Vol] 21 mg/dL Normal 7-40 [facility] Comment on above: Performed By: #### 2 300087 #### [facility] [address] [place] [address] Triglyceride [Mass/Vol] 107 mg/dL Normal <=149 F [facility] Comment on above: Performed By: #### 2 [id number] #### [facility] [address] [place] [address] MRI Brain w/o Contraston MRI Brain w/o [...] IGOR Technologist: KIMBERLY Technical Comments None Normal [facility] Reference Laboratory Testing Ordered By: Yolanda Raphael on 03-07-2024 Test Code 498257 1 Invalid Interpretation Code [facility] [employer] Test Name HbA1c Invalid Interpretation Code [facility] [employer] eGFRon 03-07-2024 eGFR 63 mL/min/1.73 m2 Normal >=59 [facility] Comment on above: Performed By: #### 1 [id number] #### [facility] [address] [place] [address] BB Draw & Holdon 03-06-2024 BB D&H Sample drawn for Blood Ba Normal [facility] Comment on above: Performed By: #### 1 [id number] #### [facility] [address] [place] [address] CBC w/ Auto Diffon 4 Basophils/100 WBC (Bld) 0.8 % Normal 0.0-2.0 [facility] Comment on above: Performed By: #### 2 [id number] #### [facility] [address] [place] [address] Basophils/Leukocytes Auto (Bld) [Pure # fraction] 0.1 E9/L Normal 0.0-0.2 [facility] Comment on above: Performed By: #### 2 843924 #### [facility] [address] [place] [address] Eosinophils (Bld) [#/Vol] 0.1 E9/L Normal 0.0-0.5 [facility] Comment on above: Performed By: #### 2 827485 #### [facility] [address] [place] [address] Eosinophils/100 WBC (Bld) 1.0 % Normal 0.0-8.0 [facility] Comment on above: Performed By: #### 2 382308 #### [facility] [address] [place] [address] Erythrocyte distribution width (RBC) [Ratio] 13.5 % Normal 10.9-14.2 [facility] Comment on above: Performed By: #### 2 201010 #### [facility] [address] [place] [address] Hematocrit (Bld) [Volume fraction] 40.7 % Normal 34.0-46.0 [facility] Comment on above: Performed By: #### 2 153411 #### [facility] [address] [place] [address] Hemoglobin (Bld) [Mass/Vol] 14.5 g/dL Normal 12.0-16.0 [facility] Comment on above: Performed By: #### 2 275629 #### [facility] [address] [place] [address] Lymphocytes (Bld) [#/Vol] 2.2 E9/L Normal 1.0-4.0 [facility] Comment on above: Performed By: #### 2 903560 #### [facility] [address] [place] [address] Lymphocytes/100 WBC (Bld) 25.0 % Normal 14.0-50.0 [facility] Comment on above: Performed By: #### 2 405670 #### [facility] [address] [place] [address] MCH (RBC) [Entitic mass] 31.4 pg Normal 27.0-34.0 [facility] Comment on above: Performed By: #### 2 [id number] #### [facility] [address] [place] [address] MCHC (RBC) [Mass/Vol] 35.6 g/dL Normal 31.4-36.[address] [facility] Comment on above: Performed By: #### 2 415272 #### [facility] [address] [place] [address] MCV (RBC) [Entitic vol] 88.3 fL Normal 80.0-100.0 [facility] Comment on above: Performed By: #### 2 312486 #### [facility] [address] [place] [address] Monocytes (Bld) [#/Vol] 0.9 E9/L Normal 0.2-1.0 [facility] Comment on above: Performed By: #### 2 554786 #### [facility] [address] [place] [address] Neutrophils (Bld) [#/Vol] 5.4 E9/L Normal 2.0-7.5 [facility] Comment on above: Performed By: #### 2 159442 #### [facility] [address] [place] [address] Neutrophils/100 WBC (Bld) 63.0 % Normal 36.0-75.0 [facility] Comment on above: Performed By: #### 2 960582 #### [facility] [address] [place] [address] Platelet mean volume (Bld) [Entitic vol] 7.6 fL Normal 6.4-10.8 [facility] Comment on above: Performed By: #### 2 966470 #### [facility] [address] [place] [address] Platelets (Bld) [#/Vol] 205.0 E9/L Normal 150. 0-500. 0 [facility] Comment on above: Performed By: #### 2 827701 #### [facility] [address] [place] [address] RBC (Bld) [#/Vol] 4.6 E12/L Normal 4.3-5.9 [facility] Comment on above: Performed By: #### 2 385464 #### [facility] [address] [place] [address] WBC corrected for nucl RBC Auto (Bld) [#/Vol] 8.6 E9/L Normal 4.0-11.0 [facility] Comment on above: Performed By: #### 2 272446 #### [facility] [address] [place] [address] CHEMISTRYOrdered By: SYSTEM SYSTEM on 03-06-2024 Albumin [...] 89 mg/dL Normal 55 - 99 mg/dL [facility] POC Subsection Comment on above: Result Comment: Johnathon spears RN/ POC Device SN [id number] 1 Invalid Interpretation Code [facility] POC Subsection POC User ID [id number] 1 Invalid Interpretation Code [facility] POC Subsection POC Username ESTELLE FOX Invalid Interpretation Code [facility] POC Subsection CMPon 03-06-2024 Albumin [Mass/Vol] 3.9 g/dL Normal 3.3-5.0 [facility] Comment on above: Performed By: #### 2 [id number] #### [facility] [address] [place] [address] Albumin/Globulin (S) [Mass conc ratio] 1.2 Normal 1.1-2.2 [facility] Comment on above: Performed By: #### 2 752365 #### [facility] [address] [place] [address] ALP [Catalytic activity/Vol] 51 Int._Unit/L Normal 21-98 [facility] Comment on above: Performed By: #### 2 332135 #### [facility] [address] [place] [address] ALT No additional P-5'-P [Catalytic activity/Vol] 10 Int._Unit/L Normal 6-46 [facility] Comment on above: Performed By: #### 2 191374 #### [facility] [address] [place] [address] Anion gap [Moles/Vol] 9 mmol/L Normal 6-[address] [facility] Comment on above: Performed By: #### 2 553282 #### [facility] [address] [place] [address] AST [Catalytic activity/Vol] 16 Int._Unit/L Normal 5-43 [facility] Comment on above: Performed By: #### 2 868167 #### [facility] [address] [place] [address] Bilirubin [Mass/Vol] 0.9 mg/dL Normal 0.0-1.1 [facility] Comment on above: Performed By: #### 2 525139 #### [facility] [address] [place] [address] Calcium [Mass/Vol] 9.4 mg/dL Normal 8.9-11.1 [facility] Comment on above: Performed By: #### 2 469890 #### [facility] [address] [place] [address] Chloride [Moles/Vol] 95 mmol/L Low 101-111 [facility] Comment on above: Performed By: #### 2 171758 #### [facility] [address] [place] [address] CO2 [Moles/Vol] 29 mmol/L Normal 21-31 [facility] Comment on above: Performed By: #### 2 453591 #### [facility] [address] [place] [address] Creatinine [Mass/Vol] 1.1 mg/dL Normal 0.5-1.[address] [facility] Comment on above: Performed By: #### 2 105982 #### [facility] [address] [place] [address] Globulin (S) [Mass/Vol] 3.2 g/dL Normal 1.4-4.0 [facility] Comment on above: Performed By: #### 2 921008 #### [facility] [address] [place] [address] Glucose [Mass/Vol] 97 mg/dL Normal 55-199 [facility] Comment on above: Performed By: #### 2 405787 #### [facility] [address] [place] [address] Potassium [Moles/Vol] 4.1 mmol/L Normal 3.5-5.[address] [facility] Comment on above: Performed By: #### 2 663256 #### [facility] [address] [place] [address] Protein [Mass/Vol] 7.1 g/dL Normal 6.0-7.8 [facility] Comment on above: Performed By: #### 2 280409 #### [facility] [address] [place] [address] Sodium [Moles/Vol] 129 mmol/L Low 135-145 [facility] Comment on above: Performed By: #### 2 [id number] #### [facility] [address] [place] [address] Urea nitrogen [Mass/Vol] 21 mg/dL Normal 5-21 [facility] Comment on above: Performed By: #### 2 [id number] #### [facility] [address] [place] [address] Urea nitrogen/Creatinine [Mass ratio] 19 No Units Normal 10-20 [facility] Comment on above: Performed By: #### 2 [id number] #### [facility] [address] [place] [address] COAGULATIONOrdered By: Arvin Quevedo on 03-06-2024 aPTT Coag (PPP) [Time] 29.4 s Normal 25.1 - 36.5 second(s) [facility] Auto Coag Comment on above: Interpretive Data: [...] the same coagulation reagent and instrumentation as [facility]. Currently there are no coagulation studies available worldwide for children to 14 days, and no normal ranges. Heparin therapeutic range (represented by Anti-Factor Xa activity of 0.2 - 0.4 U/mL) corresponds to PTT of 56.6 - 109.0 sec. INR Coag (PPP) [Relative time] 1.05 {INR} Invalid Interpretation Code [facility] Auto Coag Comment on above: Interpretive Data: I NR results are specifically intended to assess patients stabilized on long-term Anticoagulation therapy suggested INR s Less Intensive Anticoagulation 2.0 3.0 Conventional Range 3.0 4.5 PT Coag (PPP) [Time] 11.8 s Normal 9.4 - 1 2.5 second(s) [facility] Auto Coag Comment on above: Interpretive Data: [...] the same coagulation reagent and instrumentation as [facility]. Currently there are no coagulation studies available [...] MD Transcribed by: IGOR Technologist: EDUAR Normal [facility] Capillary Glucose POCon Glucose [Mass/Vol] 89 mg/dL Normal 55-99 [facility] Comment on above: Result Comment: Johnathon spears RN/ Performed By: #### 2 [id number] #### [facility] [address] [place] [address] ED Clinical Summaryon 2023 ED Clinical Summary ED Clinical Summary [address] [address] ED Clinical Summary Person Information Name: JANELLE BURT/[facility] Age: 83 Years : 1940 Sex: Female Language: Togolese PCP: ANTONINO GUSTAFSON MD Marital Status: Single Visit Id: Visit Reason: Vision changes; SENT BY EYE DOCTOR - POSSIBLE STROKE Speciality: Acuity: 2 Enc Type: Observation Med Service: Medical Arrival: 03/06/2024 14:47:18 Discharge: LOS: 000 05:16 Checkin: 03/06/2024 14:47:18 Checkout: 03/06/2024 20:03:26 Dispo Type: Admitted as IP to this [facility] EVENTS: Event Name Event Status Request Date/Time [...] 03/06/2024 20:03:26 03/06/2024 20:03:26 03/06/2024 20:03:26 ADDRESS: [address] [place] [phone] PHYS DOC NOTES: MEDICAL INFORMATION: Prescriptions Given: PATIENT EDUCATION INFORMATION: Instructions: Follow up: DIAGNOSIS: 1:CVA (cerebrovascular accident); 2:HTN (hypertension); 3:Hypothyroidism; 4:A-fib; 5:Hyperlipidemia Normal [facility] ED Note-Nursingon 03-06-2024 ED Note-Nursing ED Note-Nursing Pt returns from MRI. Normal [facility] ED Note-Nursing ED Note-Nursing Finger stick at 1502 is 89 Normal [facility] ED Patient Education Noteon 03-06-2024 ED Patient Education Note ED Patient Education Note Normal [facility] ED Patient Summaryon ED Patient Summary ED Patient Summary [place] [id number] Patient Discharge Instructions Person Information Name: JANELLE BURT Age: 83 Years Arrival Date: 03/06/2024 14:47:18 Discharge Diagnosis: 1:CVA (cerebrovascular accident); 2:HTN (hypertension); 3:Hypothyroidism; 4:A-fib; 5:Hyperlipidemia Primary Care Physician: ANTONINO GUSTAFSON MD Provider Information Primary Provider: Rolando Zarco DO Advanced Placement Specialist:Julio Escalante PA-C The exam and treatment you received in the Emergency Department were for an urgent problem and are not intended as complete care. It is important that you follow up with a doctor, nurse practitioner, or physician???s blacksmith assistant for ongoing care. If your symptoms [...] opioids can be used to help relieve uoupshfa-qh-nquejc pain and are often prescribed following a [...] be struggling with addiction, tell your health health care liaison and ask for guidance or call [facility]???S National Helpline at 7-839-876-OMJD. (more content not included)... Normal [facility] HEMATOLOGYOrdered By: SYSTEM SYSTEM on [...] Nom (U) 1,000 cfu/ml Mixed skin contaminants [facility] PT & PTTon 03-06-2024 aPTT Coag (PPP) [Time] 29.4 second(s) Normal 25.1-36.5 [facility] Comment on above: Result Comment: [...] the same coagulation reagent and instrumentation as [facility]. Currently there are no coagulation studies available worldwide for children to 14 days, and no normal ranges. Heparin therapeutic range (represented by Anti-Factor Xa activity of 0.2 - 0.4 U/mL) corresponds to PTT of 56.6 - 109.0 sec. Performed By: #### 1 [id number] #### [facility] [address] [place] [address] INR Coag (PPP) [Relative time] 1.05 {INR} Invalid Interpretation Code [facility] Comment on above: Result Comment: INR results are specifically intended to assess patients stabilized on long-term Anticoagulation therapy suggested INR???s ???Less Intensive Anticoagulation??? 2.0 ??? 3.0 Conventional Range 3.0 ??? 4.5 Performed By: #### 1 [id number] #### [facility] [address] [place] [address] PT Coag (PPP) [Time] 11.8 second(s) Normal 9.4-12.5 [facility] Comment on above: Result Comment: [...] the same coagulation reagent and instrumentation as [facility]. Currently there are no coagulation studies available worldwide for children to 14 days, and no normal ranges. Performed By: #### 1 [id number] #### [facility] [address] [place] [address] Perimetry studyon 03-06-2024 Right Eye Reliability was poor. Left Eye Reliability was poor. Notes Lt homonymous deni [facility] Radiology Study observation (narrative) [facility] Troponin 0 Hr.on 03-06-2024 Troponin HS 5.30 pg/mL Low 10.10-27.1 0 [facility] Comment on above: Result Comment: The 95% CI (Confidence Interval) PPV (Positive Predictive Value) for myocardial infarction in females is 38 pg/mL, in males 51 pg/mL. The results should be used in conjunction with clinical conditions of myocardial infarction. (Access High Sensitivity Troponin I Instructions For Use, [employer]la [employer], October 2017) Performed By: #### 1 [id number] #### [facility] [address] [place] [address] UA with Cult Rflxon 03-06-20 24 Bilirubin Ql (U) Negative Normal Negative [facility] Comment on above: Performed By: #### 4 [id number] #### [facility] [address] [place] [address] Clarity (U) Clear Normal Clear [facility] Comment on above: Performed By: #### 4 [id number] #### [facility] [address] [place] [address] Color (U) Yellow Normal Yellow [facility] Comment on above: Result Comment: Micr oscopic readings are only performed on those samples that meet specific criteria set forth by [facility]. Performed By: #### 4 [id number] #### [facility] [address] [place] [address] Epithelial cells.squamous Auto (Urine sed) [#/Area] 3-4 Invalid Interpretation Code [facility] Comment on above: Performed By: #### 4 [id number] #### [facility] [address] [place] [address] Glucose Ql (U) Negative Normal Negative [facility] Comment on above: Performed By: #### 4 [id number] #### [facility] [address] [place] [address] Hemoglobin Auto test strip (U) [Mass/Vol] Negative Normal Negative [facility] Comment on above: Performed By: #### 4 [id number] #### [facility] [address] [place] [address] Ketones Auto test strip Ql (U) Negative Normal Negative [facility] Comment on above: Performed By: #### 4 [id number] #### [facility] [address] [place] [address] Leukocyte esterase Auto test strip Ql (U) 250 Mohit/uL Abnormal Negative [facility] Comment on above: Performed By: #### 4 [id number] #### [facility] [address] [place] [address] Mucus Auto Ql (U) Trace Normal Negative [facility] Comment on above: Performed By: #### 4 [id number] #### [facility] [address] [place] [address] Nitrite Auto test strip Ql (U) Negative Normal Negative [facility] Comment on above: Performed By: #### 4 [id number] #### [facility] [address] [place] [address] pH (U) 5.5 [pH] Invalid Interpretation Code 5.0-9.0 [facility] Comment on above: Performed By: #### 4 [id number] #### [facility] [address] [place] [address] Protein Ql (U) Negative Normal Negative [facility] Comment on above: Performed By: #### 4 [id number] #### [facility] [address] [place] [address] RBC Ql (U) 0-3 Normal 0-3 [facility] Comment on above: Performed By: #### 4 [id number] #### [facility] [address] [place] [address] Specific gravity (U) [Rel density] 1.019 Invalid Interpretation Code 1.005-1.03 0 [facility] Comment on above: Performed By: #### 4 [id number] #### [facility] [address] [place] [address] Urobilinogen (U) [Mass/Vol] Negative Normal Negative [facility] Comment on above: Performed By: #### 4 [id number] #### [facility] [address] [place] [address] WBC Auto (Urine sed) [#/Area] 6-15 Abnormal 0-5 [facility] Comment on above: Performed By: #### 4 [id number] #### [facility] [address] [place] [address] Type of Urine collection method Clean Catch Normal [facility] Comment on above: Performed By: #### 4 [id number] #### [facility] [address] [place] [address] URINALYSISOrdered By: SYSTEM SYSTEM on 03-06-2024 Bilirubin Ql (U) Negative Normal Negativemg /dL [facility] UA Auto SS Clarity (U) Clear (03/06/24 7:55 PM) Normal Clear [facility] UA Auto SS Color (U) Yellow 1 (03/06/24 7:55 PM) Normal Yellow [facility] UA Auto SS Comment on above: Interpretive Data: M icroscopic readings are only performed on those samples that meet specific criteria set forth by [facility]. Epithelial cells.squamous Auto (Urine [...] PM) Invalid Interpretation Code 1.005 - 1.030 [facility] UA Auto SS Urobilinogen (U) [Mass/Vol] Negative Normal Negativemg /dL [facility] UA Auto SS WBC Auto (Urine sed) [#/Area] 6-15 graded/HPF Invalid Interpretation Code 0-5graded/ HPF [facility] UA Auto SS URINALYSISOrdered By: Julio Escalante on 03-06-2024 UA Spec Desc Clean Catch (03/06/24 7:55 PM) Normal [facility] UA Auto SS Work Phone: XR Chest [...] mGy = na DAP = na Normal [facility] eGFRon 03-06-2024 eGFR 49 mL/min/1.73 m2 Low >=59 [facility] Comment on above: Performed By: #### 1 [id number] #### [facility] [address] [place] [address] Urine Cultureon 02-17-2024 Bacteria identified Cx Nom (U) ORGANISM: Pseudomonas aeruginosa (O:PSEAER) Newberg Count <10,000 Aerobic TONY Charge (NMIC56) SUSCEPTIBILITY [...] RESISTANT TO ALL B-LACTAM DRUGS. PERFORMED BY: [facility] [address] [place] [address] PATHOLOGIST WELDER OPERATOR KARAN TINSLEY M.D. Normal [facility] Comment on above: Performed By: #### C UU #### [facility] [address] [place] [address] [place] Basophils Auto (Bld) [#/Vol] on 02-05-2024 Basophils (Bld) [#/Vol] Automated basophil count 0.0-0.1 [facility] Basophils/100 WBC Auto (Bld) on 02-05-2024 Basophils/100 WBC (Bld) Automated basophil % 0. 2-2.0 [facility] Eosinophils/100 WBC Auto (Bl d)on 02-05-2024 Eosinophils/100 WBC (Bld) Automated eosinophil % 0.9-7.0 [facility] Erythrocyte distribution wid th Auto (RBC) [Ratio]on 02-05-2024 Erythrocyte distribution width (RBC) [Ratio] Erythrocyte distribution width [Ratio] by Automated count 11.0-15.0 [facility] Estimated glomerular filtrat ion rate (GFR) non- Americanon 02-05-2024 GFR/1.73 sq M.predicted among non-blacks MDRD (S/P/Bld) [Vol rate/Area] Estimated glomerular filtration rate (GFR) non- Low >=60 mL/min/1.7 3m 2 [facility] Hematocrit Auto (Bld) [Volum e fraction]on 02-05-2024 Hematocrit (Bld) [Volume fraction] Hematocrit [Volume Fraction] of Blood by Automated count 36.0-48.0 [facility] Hemoglobin [Mass/volume] in Bloodon 02-05-2024 Hemoglobin (Bld) [Mass/Vol] Hemoglobin [Mass/volume] in Blood 12.0-16.0 [facility] Laboratory - Chemistry and C hemistry - challengeon 02-05-2024 Calcium [Mass/Vol] 9.5 mg/dL 8.5-10.1 [facility] Chloride [Moles/Vol] 95 mmol/L Low 98-107 [facility] CO2 [Moles/Vol] 26.7 mmol/L 21.0-32.0 [facility] Creatinine [Mass/Vol] 1.30 mg/dL High 0.55-1.02 [facility] GFR/1.73 sq M.predicted MDRD (S/P/Bld) [Vol rate/Area] 47 mL/min/{1.73_m2} Low >=60 mL/min/1.7 3m 2 [facility] Glucose [Mass/Vol] 115 mg/dL High 74-106 [facility] Potassium [Moles/Vol] 4.1 mmol/L 3.5-5.1 [facility] Sodium [Moles/Vol] 132 mmol/L Low 136-145 [facility] Urea nitrogen [Mass/Vol] 14.0 mg/dL 7.0-18.0 [facility] Urea nitrogen/Creatinine [Mass ratio] 10.8 mg/mg [facility] - Hematology and Cell countson 02-05-2024 Immature granulocytes/100 WBC (Bld) 0.1 % 0.0-0.5 [facility] Leukocytes [#/volume] correc chacho for nucleated erythrocytes in Blood by Automated counon 02-05-2024 WBC corrected for nucl RBC Auto (Bld) [#/Vol] Leukocytes [#/volume] corrected for nucleated erythrocytes in Blood by Automated coun 4.0-11.0 [facility] Lymphocytes Auto (Bld) [#/Vo l]on 02-05-2024 Lymphocytes (Bld) [#/Vol] Lymphocytes [#/volume] in Blood by Automated count 1.2-3.8 [facility] Lymphocytes/100 WBC Auto (Bl d)on 02-05-2024 Lymphocytes/100 WBC (Bld) Lymphocytes/100 leukocytes in Blood by Automated count 20.5-60.0 [facility] MCH Auto (RBC) [Entitic mass ]on 02-05-2024 MCH (RBC) [Entitic mass] MCH [Entitic mass] by Automated count 26.7-34.0 [facility] MCHC Auto (RBC) [Mass/Vol]on 02-05-2024 MCHC (RBC) [Mass/Vol] MCHC [Mass/volume] by Automated count 29.9-35.2 [facility] MCV Auto (RBC) [Entitic vol] on 02-05-2024 MCV (RBC) [Entitic vol] MCV [Entitic vol ume] by Automated count 81.0-99.0 [facility] Monocytes Auto (Bld) [#/Vol] on 02-05-2024 Monocytes (Bld) [#/Vol] Automated blood monocyte count 0.3-0.8 [facility] Monocytes/100 WBC Auto (Bld) on 02-05-2024 Monocytes/100 WBC (Bld) Automated monocyte % 1. 7-12.0 [facility] Neutrophils Auto (Bld) [#/Vo l]on 02-05-2024 Neutrophils (Bld) [#/Vol] Neutrophils [#/volume] in Blood by Automated count 1.4-6.5 [facility] Neutrophils/100 WBC Auto (Bl d)on 02-05-2024 Neutrophils/100 WBC (Bld) Automated neutrophil % 43.0-75.0 [facility] No Panel Informationon 02-04 Eosinophils # (Auto) 0.1 10 3/uL 0.0-0.7 [facility] Immature Granulocyte # (Auto) 0.01 10 3/uL 0.00-0.03 [facility] Platelet mean volume Auto (B ld) [Entitic vol]on 02-05-2024 Platelet mean volume (Bld) [Entitic vol] Platelet mean volume [Entitic volume] in Blood by Automated count Low 9.5-13.5 [facility] Platelets Auto (Bld) [#/Vol] on 02-05-2024 Platelets (Bld) [#/Vol] Platelets [#/vol ume] in Blood by Automated count 150-450 [facility] RBC Auto (Bld) [#/Vol]on RBC (Bld) [#/Vol] Erythrocytes [#/volu me] in Blood by Automated count 4.20-5.40 [facility] Serum or plasma anion gap de terminationon 02-05-2024 Anion gap [Moles/Vol] Serum or plasma an ion gap determination [facility] Automated epithelial cells c ount in urine sediment (number/area)on 07-27-2023 Epithelial cells Auto (Urine sed) [#/Area] RARE #/LPF NONE/RARE [facility] Automated leukocytes count i n urine sediment (number/area)on 07-27-2023 WBC Auto (Urine sed) [#/Area] NONE SEEN #/HPF 0-2 [facility] Automated urine specific gra vity by refractometryon 07-27-2023 Specific gravity Refractometry automated (U) [Rel density] 1.015 1.005-1.02 5 [facility] Bilirubin Auto test strip (U ) [Mass/Vol]on 07-27-2023 Bilirubin (U) [Mass/Vol] Negative NEGATIVE [facility] Casts typing in urine sedime nt by light microscopyon 07-27-2023 Casts LM Nom (Urine sed) NONE SEEN #/LPF NONE SEEN [facility] Color Auto (U)on 07-27-2023 Color (U) LT. YELLOW YELLOW [facility] Erythrocyte distribution wid th Auto (RBC) [Ratio]on 07-27-2023 Erythrocyte distribution width (RBC) [Ratio] 12.6 % 11.0-15.0 [facility] Estimated glomerular filtrat ion rate (GFR) non- Americanon 07-27-2023 GFR/1.73 sq M.predicted among non-blacks MDRD (S/P/Bld) [Vol rate/Area] 46 mL/min/{1.73_m2} >=60 [facility] Hematocrit Auto (Bld) [Volum e fraction]on 07-27-2023 Hematocrit (Bld) [Volume fraction] 39.4 % 36.0-48.0 [facility] Hemoglobin [Mass/volume] in Bloodon 07-27-2023 Hemoglobin (Bld) [Mass/Vol] 13.5 g/dL 12.0-16.0 [facility] Ketones Auto test strip (U) [Mass/Vol]on 07-27-2023 Ketones (U) [Mass/Vol] Negative NEGATIVE [facility] - Chemistry and C hemistry - challengeon 07-27-2023 Albumin [Mass/Vol] 3.5 g/dL 3.4-5.0 [facility] Calcium [Mass/Vol] 9.3 mg/dL 8.5-10.1 [facility] Chloride [Moles/Vol] 96 mmol/L 98-107 [facility] CO2 [Moles/Vol] 28.4 mmol/L 21.0-32.0 [facility] Creatinine [Mass/Vol] 1.12 mg/dL 0.55-1.02 [facility] GFR/1.73 sq M.predicted MDRD (S/P/Bld) [Vol rate/Area] 56 mL/min/{1.73_m2} >=60 [facility] Glucose [Mass/Vol] 95 mg/dL 74-106 [facility] Magnesium [Mass/Vol] 2.0 mg/dL 1.8-2.4 [facility] Potassium [Moles/Vol] 4.1 mmol/L 3.5-5.1 [facility] Sodium [Moles/Vol] 131 mmol/L 136-145 [facility] Urate [Mass/Vol] 3.4 mg/dL 2.6-6.0 [facility] Urea nitrogen [Mass/Vol] 19.0 mg/dL 7.0-18.0 [facility] Urea nitrogen/Creatinine [Mass ratio] 17.0 mg/mg [facility] Laboratory - Urinalysison Protein (U) [Mass/Vol] 9.6 mg/dL <=11.9 [facility] Leukocytes [#/volume] correc chacho for nucleated erythrocytes in Blood by Automated counon 07-27-2023 WBC corrected for nucl RBC Auto (Bld) [#/Vol] 5.8 10 3/uL 4.0-11.0 [facility] MCH Auto (RBC) [Entitic mass ]on 07-27-2023 MCH (RBC) [Entitic mass] 29.9 pg 26.7-34.0 [facility] MCHC Auto (RBC) [Mass/Vol]on 07-27-2023 MCHC (RBC) [Mass/Vol] 34.3 g/dL 29.9-35.2 [facility] MCV Auto (RBC) [Entitic vol] on 07-27-2023 MCV (RBC) [Entitic vol] 87.2 fL 81.0-99.0 [facility] Mucus LM Ql (Urine sed)on Mucus Ql (Urine sed) NONE SEEN NONE SEEN [facility] No Panel Informationon 07-26 Urine Random Creatinine 100.05 mg/dL 20.0 0-300. 00 [facility] 25-Hydroxy Vitamin D Total 61.8 ng/mL [facility] Comment on above: <20 ng/mL Vit D defi cient20-<30 ng/mL Vit D [id number] ng/mL Vit D sufficient>100 ng/mL Potential Toxicity Parathyroid Hormone (Intact) 16 pg/mL 15-65 [facility] Comment on above: Performed at: [address] [id number] Director: Lux Adorno PhD, Phone: [phone] Phosphorus Level 3.5 mg/dL 2.6-4.7 [facility] Platelet mean volume Auto (B ld) [Entitic vol]on 07-27-2023 Platelet mean volume (Bld) [Entitic vol] 9.1 fL 9.5-13.5 [facility] Platelets Auto (Bld) [#/Vol] on 07-27-2023 Platelets (Bld) [#/Vol] 209 10 3/uL 150-450 [facility] Protein Auto test strip (U) [Mass/Vol]on 07-27-2023 Protein (U) [Mass/Vol] Negative NEG/TRACE [facility] RBC Auto (Bld) [#/Vol]on RBC (Bld) [#/Vol] 4.52 10 6/uL 4.20-5.40 [facility] Serum or plasma anion gap de terminationon 07-27-2023 Anion gap [Moles/Vol] 10.7 mmol/L [facility] Specific gravity Auto test s trip (U) [Rel density]on 07-27-2023 Specific gravity (U) [Rel density] CLEAR CLEAR [facility] Urine bacteria detection by automated methodon 07-27-2023 Bacteria Auto Ql (U) NONE SEEN #/HPF NONE SEEN [facility] Urine glucose measurement by test strip (mass/volume)on 07-27-2023 Glucose Test strip (U) [Mass/Vol] Negative NEGATIVE [facility] Urine hemoglobin detection b y automated test stripon 07-27-2023 Hemoglobin Auto test strip Ql (U) Negative NEGATIVE [facility] Urine nitrite detection by a utomated test stripon 07-27-2023 Nitrite Auto test strip Ql (U) SMALL NEGATIVE [facility] Nitrite Auto test strip Ql (U) Negative NEGATIVE [facility] Urine protein/creatinine rat ioon 07-27-2023 Protein/Creatinine (U) [Ratio] 0.10 [facility] Urine sediment crystal ident ification by light microscopyon 07-27-2023 Crystals LM Nom (Urine sed) None Seen #/HPF None Seen [facility] Urine sediment leukocyte cou nt by microscopy (number/high power field)on 07-27-2023 WBC LM.HPF (Urine sed) [#/Area] 2-5 #/HPF NONE SEEN [facility] Urobilinogen Auto test strip (U) [Mass/Vol]on 07-27-2023 Urobilinogen Qn (U) 1.0 {Carlos'U}/dL 0.2-1.0 [facility] pH Auto test strip (U)on pH (U) 7.0 [pH] 5.0-9.0 [facility] Calcium [Mass/volume] in Ser um or PlasmaOrdered By: Elsa Amin on 01-29-2023 Calcium [Mass/Vol] 9.5 mg/dL 8.6-10.3 [facility] Carbon dioxide, total [Moles /volume] in Serum or PlasmaOrdered By: Elsa Amin on 01-29-2023 CO2 [Moles/Vol] 25.5 mmol/L 21.0-31.0 [facility] Chloride [Moles/volume] in S lorraine or PlasmaOrdered By: Elsa Amin on 01-29-2023 Chloride [Moles/Vol] 96 mmol/L 98-107 [facility] Creatinine [Mass/volume] in Serum or PlasmaOrdered By: Elsa Amin on 01-29-2023 Creatinine [Mass/Vol] 1.18 mg/dL 0.60-1.20 [facility] Glucose [Mass/volume] in Ser um or PlasmaOrdered By: Elsa Amin on 01-29-2023 Glucose [Mass/Vol] 82 mg/dL 70-100 [facility] Comment on above: ADA recommended refe rence rangeRandom Glucose Reference Range is dependent on time and content of last meal. Glucose of more than 200 mg/dL in a nonstressed, ambulatory subject supports the diagnosis of Diabetes Mellitus. No Panel InformationOrdered By: Elsa Amin on 01-29-2023 Estimated GFR (CKD-EPI) 45.829 mL/Min [facility] Creatinine Clearance (Chem 31.19 [facility] Potassium [Moles/volume] in Serum or PlasmaOrdered By: Elsa Amin on 01-29-2023 Potassium [Moles/Vol] 4.0 mmol/L 3.5-5.1 [facility] Serum or plasma anion gap de terminationOrdered By: Elsa Amin on 01-29-2023 Anion gap [Moles/Vol] 12.5 mmol/L 6.0-15.0 [facility] Sodium [Moles/volume] in Ser um or PlasmaOrdered By: Elsa Amin on 01-29-2023 Sodium [Moles/Vol] 130 mmol/L 136-145 [facility] Urea nitrogen [Mass/volume] in Serum or PlasmaOrdered By: Elsa Amin on 01-29-2023 Urea nitrogen [Mass/Vol] 24 mg/dL 10-20 [facility] Activated partial thrombopla stin time (aPTT) in platelet poor plasma by coagulation aOrdered By: Willie Lyon on 01-27-2023 aPTT Coag (PPP) [Time] 31.7 s 25.1-36.5 [facility] Comment on above: A hematocrit value g reater than 55% may lead to inaccurate results in coagulation testing. Patients having hematocrit values >55% require a special collection tube for coagulation studies. Please contact the laboratory at [phone] for redraw instructions. Alanine aminotransferase [En zymatic activity/volume] in Serum or PlasmaOrdered By: Willie Lyon on 01-27-2023 ALT [Catalytic activity/Vol] 9 U/L 7-52 [facility] Albumin [Mass/volume] in Ser um or Plasma by Bromocresol green (BCG) dye binding methoOrdered By: Willie Lyon on 01-27-2023 Albumin BCG dye [Mass/Vol] 4.0 g/dL 3.5-5.7 [facility] Alkaline phosphatase [Enzyma tic activity/volume] in Serum or PlasmaOrdered By: Willie Lyon on 01-27-2023 ALP [Catalytic activity/Vol] 46 U/L 34-104 [facility] Aspartate aminotransferase [ Enzymatic activity/volume] in Serum or PlasmaOrdered By: Willie Lyon on 01-27-2023 AST [Catalytic activity/Vol] 19 U/L 13-39 [facility] Basophils Auto (Bld) [#/Vol] Ordered By: Willie Lyon on 01-27-2023 Basophils (Bld) [#/Vol] 0.1 10*3/uL 0.0-0.2 [facility] Basophils/100 WBC Auto (Bld) Ordered By: Willie Lyon on 01-27-2023 Basophils/100 WBC (Bld) 1.0 % . [facility] Bilirubin.total [Mass/volume ] in Serum or PlasmaOrdered By: Willie Lyon on 01-27-2023 Bilirubin [Mass/Vol] 0.7 mg/dL 0.3-1.0 [facility] Calcium [Mass/volume] in Ser um or PlasmaOrdered By: Willie Lyon on 01-27-2023 Calcium [Mass/Vol] 9.8 mg/dL 8.6-10.3 [facility] Carbon dioxide, total [Moles /volume] in Serum or PlasmaOrdered By: Willie Lyon on 01-27-2023 CO2 [Moles/Vol] 27.4 mmol/L 21.0-31.0 [facility] Chloride [Moles/volume] in S lorraine or PlasmaOrdered By: Willie Lyon on 01-27-2023 Chloride [Moles/Vol] 98 mmol/L 98-107 [facility] Creatine kinase [Enzymatic a ctivity/volume] in Serum or PlasmaOrdered By: Willie Lyon on 01-27-2023 CK [Catalytic activity/Vol] 52 U/L 30-223 [facility] Creatinine [Mass/volume] in Serum or PlasmaOrdered By: Willie Lyon on 01-27-2023 Creatinine [Mass/Vol] 1.45 mg/dL 0.60-1.20 [facility] Eosinophils Auto (Bld) [#/Vo l]Ordered By: Willie Lyon on 01-27-2023 Eosinophils (Bld) [#/Vol] 0.1 10*3/uL 0.0-0.45 [facility] Eosinophils/100 WBC Auto (Bl d)Ordered By: Willie Lyon on 01-27-2023 Eosinophils/100 WBC (Bld) 1.7 % . [facility] Erythrocyte distribution wid th Auto (RBC) [Ratio]Ordered By: iWllie Lyon on 01-27-2023 Erythrocyte distribution width (RBC) [Ratio] 13.7 % 11.9-15.3 [facility] Globulin Calc (S) [Mass/Vol] Ordered By: Willie Lyon on 01-27-2023 Globulin (S) [Mass/Vol] 2.9 g/dL [facility] Glucose [Mass/volume] in Ser um or PlasmaOrdered By: Willie Lyon on 01-27-2023 Glucose [Mass/Vol] 105 mg/dL 70-100 [facility] Comment on above: ADA recommended refe rence rangeRandom Glucose Reference Range is dependent on time and content of last meal. Glucose of more than 200 mg/dL in a nonstressed, ambulatory subject supports the diagnosis of Diabetes Mellitus. Hematocrit Auto (Bld) [Volum e fraction]Ordered By: Willie Lyon on 01-27-2023 Hematocrit (Bld) [Volume fraction] 41.4 % 34.0-46.4 [facility] Hemoglobin [Mass/volume] in BloodOrdered By: Willie Lyon on 01-27-2023 Hemoglobin (Bld) [Mass/Vol] 14.0 g/dL 11.8-15.4 [facility] INR in Platelet poor plasma by Coagulation assayOrdered By: Willie Lyon on 01-27-2023 INR Coag (PPP) [Relative time] 1.0 {INR} [facility] Comment on above: INR Therapeutic Rang e [...] RBC Auto (Bld) [#/Vol] 6.9 10*3/uL 3.8-11.6 [facility] Lymphocytes Auto (Bld) [#/Vo l]Ordered By: Willie Lyon on 01-27-2023 Lymphocytes (Bld) [#/Vol] 1.6 10*3/uL 1.00-4.8 [facility] Lymphocytes/100 WBC Auto (Bl d)Ordered By: Willie Lyon on 01-27-2023 Lymphocytes/100 WBC (Bld) 23.7 % . [facility] MCH Auto (RBC) [Entitic mass ]Ordered By: Willie Lyon on 01-27-2023 MCH (RBC) [Entitic mass] 29.7 pg 24.7-34.3 [facility] MCHC Auto (RBC) [Mass/Vol]Or dered By: Willie Lyon on 01-27-2023 MCHC (RBC) [Mass/Vol] 33.9 g/dL 32.0-35.0 [facility] MCV Auto (RBC) [Entitic vol] Ordered By: Willie Lyon on 01-27-2023 MCV (RBC) [Entitic vol] 87.5 fL 80-100 [facility] Magnesium [Mass/volume] in S lorraine or PlasmaOrdered By: Willie Lyon on 01-27-2023 Magnesium [Mass/Vol] 2.0 mg/dL 1.9-2.7 [facility] Monocyte distribution width [Entitic volume] in Blood by AutomatedOrdered By: Willie Lyon on 01-27-2023 Monocyte distribution width Auto (Bld) [Entitic vol] 18.32 % 0.00-20.00 [facility] Monocytes Auto (Bld) [#/Vol] Ordered By: Willie Lyon on 01-27-2023 Monocytes (Bld) [#/Vol] 0.5 10*3/uL 0.0-0.8 [facility] Monocytes/100 WBC Auto (Bld) Ordered By: Willie Lyon on 01-27-2023 Monocytes/100 WBC (Bld) 7.4 % . [facility] [facility] [place] Natriuretic peptide B [Mass/ Vol]Ordered By: Wilile Lyon on 01-27-2023 Natriuretic peptide B (Bld) [Mass/Vol] 359.0 pg/mL 5-100 [facility] Neutrophils Auto (Bld) [#/Vo l]Ordered By: Willie Lyon on 01-27-2023 Neutrophils (Bld) [#/Vol] 4.6 10*3/uL 1.8-7.7 [facility] Neutrophils/100 WBC Auto (Bl d)Ordered By: Willie Lyon on 01-27-2023 Neutrophils/100 WBC (Bld) 66.2 % . [facility] No Panel InformationOrdered By: Willie Lyon on 01-27-2023 Estimated GFR (CKD-EPI) 35.790 mL/Min [facility] Creatinine Clearance (Chem 25.39 [facility] Nucleated erythrocytes [Pres ence] in Blood by Automated countOrdered By: Willie Lyon on 01-27-2023 Nucleated RBC Auto Ql (Bld) 0.1 /100{WBC} 0-0.5 [facility] Platelet mean volume Auto (B ld) [Entitic vol]Ordered By: Willie Lyon on 01-27-2023 Platelet mean volume (Bld) [Entitic vol] 7.7 fL 6.3-10.7 [facility] Platelets Auto (Bld) [#/Vol] Ordered By: Willie Lyon on 01-27-2023 Platelets (Bld) [#/Vol] 281 10*3/uL 150-450 [facility] Potassium [Moles/volume] in Serum or PlasmaOrdered By: Willie Lyon on 01-27-2023 Potassium [Moles/Vol] 4.6 mmol/L 3.5-5.1 [facility] Protein [Mass/volume] in Ser um or PlasmaOrdered By: Willie Lyon on 01-27-2023 Protein [Mass/Vol] 6.9 g/dL 6.4-8.9 [facility] Prothrombin time (PT)Ordered By: Willie Lyon on 01-27-2023 PT Coag (PPP) [Time] 12.2 s 9.0-12.9 [facility] Comment on above: A hematocrit value g reater than 55% may lead to inaccurate results in coagulation testing. Patients having hematocrit values >55% require a special collection tube for coagulation studies. Please contact the laboratory at [phone] for redraw instructions. RBC Auto (Bld) [#/Vol]Ordere d By: Willie Lyon on 01-27-2023 RBC (Bld) [#/Vol] 4.73 10*6/uL 3.60-5.00 [facility] Serum or plasma albumin/glob ulin mass ratioOrdered By: Willie Lyon on 01-27-2023 Albumin/Globulin [Mass ratio] 1.4 {ratio} [facility] Serum or plasma anion gap de terminationOrdered By: Willie Lyon on 01-27-2023 Anion gap [Moles/Vol] 11.2 mmol/L 6.0-15.0 [facility] Sodium [Moles/volume] in Ser um or PlasmaOrdered By: Willie Lyon on 01-27-2023 Sodium [Moles/Vol] 132 mmol/L 136-145 [facility] Thyrotropin [Units/volume] i n Serum or PlasmaOrdered By: Willie Lyon on 01-27-2023 TSH Qn 0.18 m[IU]/L 0.45-5.33 [facility] Troponin I.cardiac [Mass/vol ume] in Serum or Plasma by Detection limit <= 0.01 ng/Ordered By: Elsa Amin on 01-27-2023 Troponin I.cardiac DL <= 0.01 ng/mL [Mass/Vol] 29.5 pg/mL 0.0-15.0 [facility] Troponin I.cardiac [Mass/vol ume] in Serum or Plasma by Detection limit <= 0.01 ng/Ordered By: Willie Lyon on 01-27-2023 Troponin I.cardiac DL <= 0.01 ng/mL [Mass/Vol] 47.3 pg/mL 0.0-15.0 [facility] Urea nitrogen [Mass/volume] in Serum or PlasmaOrdered By: Willie Lyon on 01-27-2023 Urea nitrogen [Mass/Vol] 30 mg/dL 7-25 [facility] WBC Auto (Bld) [#/Vol]Ordere d By: Willie Lyon on 01-27-2023 WBC (Bld) [#/Vol] 6.9 10*3/uL 3.8-11.6 [facility] PTH INTACTon 06-04-2022 PTH, Intact 10 pg/mL Critically low 15-65 [facility] Comment on above: Performed By: #### P THINT #### [facility] [address] [place] [address] Dr. Dario Gil FREE T4on 06-03-2022 Free T4 [Mass/Vol] 1.03 ng/dL Normal 0.76-1.46 [facility] Comment on above: Performed By: #### H H #### [facility] [address] [place] [address] Dr. Dario Gil HEMOGRAM AND PLATELon 2022 Hematocrit (Bld) [Volume fraction] 39.9 % Normal 36.0-48.0 [facility] Comment on above: Performed By: #### H H #### [facility] [address] [place] [address] Dr. Dario Gil Hemoglobin (Bld) [Mass/Vol] 13.9 g/dL Normal 12.0-16.0 [facility] Comment on above: Performed By: #### H H #### [facility] [address] [place] [address] Dr. Dario Gil MCH (RBC) [Entitic mass] 30.6 pg Normal 26.7-34.0 [facility] Comment on above: Performed By: #### H H #### [facility] [address] [place] [address] Dr. Dario Gil MCHC (RBC) [Mass/Vol] 34.8 g/dL Normal 29.9-35.2 [facility] Comment on above: Performed By: #### H H #### [facility] [address] [place] [address] Dr. Dario Gil MCV (RBC) [Entitic vol] 87.9 fL Normal 81.0-99.0 [facility] Comment on above: Performed By: #### H H #### [facility] [address] [place] [address] Dr. Dario Gil PLT 232 103/ul Normal 150-[address] [facility] Comment on above: Performed By: #### H H #### [facility] [address] [place] [address] Dr. Dario Gil RBC 4.54 106/ul Normal 4.20-5.[address] [facility] Comment on above: Performed By: #### H H #### [facility] [address] [place] [address] Dr. Dario Gil WBC 5.8 103/ul Normal 4.0-11.[address] [facility] Comment on above: Performed By: #### H H #### [facility] [address] [place] [address] Dr. Dario Gil MAGNESIUMon 06-03-2022 Magnesium [Mass/Vol] 1.8 mg/dL Normal 1.8-2.[address] [facility] Comment on above: Performed By: #### M Humble, URIC, RENAL #### [facility] [address] [place] [address] Dr. Dario Gil RENAL FUNCTION PANELon 06-03 Albumin [Mass/Vol] 4.0 g/dL Normal 3.4-5.0 [facility] Comment on above: Performed By: #### M Humble, URIC, RENAL #### [facility] [address] [place] [address] Dr. Dario Gil Calcium [Mass/Vol] 9.7 mg/dL Normal 8.5-10.[address] [facility] Comment on above: Performed By: #### M Humble, URIC, RENAL #### [facility] [address] [place] [address] Dr. Dario Gil Chloride [Moles/Vol] 98 mmol/L Normal 98-[address] [facility] Comment on above: Performed By: #### M G, URIC, RENAL #### [facility] [address] [place] [address] Dr. Dario Gil CO2 [Moles/Vol] 29.6 mmol/L Normal 21.0-32.[address] [facility] Comment on above: Performed By: #### M G, URIC, RENAL #### [facility] [address] [place] [address] Dr. Dario Gil Creatinine [Mass/Vol] 1.37 mg/dL Critically high 0.55-1.[address] [facility] Comment on above: Performed By: #### M G, URIC, RENAL #### [facility] [address] [address] [address] Dario Gil EGFR-AF SWISS 45 mL/min/1.73m2 Critically low >=60 [facility] Comment on above: Performed By: #### M G, URIC, RENAL #### [facility] [address] [place] [address] Dr. Dario Gil EGFR-NON AF SWISS 37 mL/min/1.73m2 Critically low >=60 [facility] Comment on above: Performed By: #### M G, URIC, RENAL #### [facility] [address] [place] [address] Dr. Dario Gil Glucose [Mass/Vol] 99 mg/dL Normal 74-106 [facility] Comment on above: Performed By: #### M G, URIC, RENAL #### [facility] [address] [place] [address] Dr. Dario Gil Phosphate [Mass/Vol] 3.5 mg/dL Normal 2.6-4.7 [facility] Comment on above: Performed By: #### M G, URIC, RENAL #### [facility] [address] [address] [address] Dario Gil Potassium [Moles/Vol] 4.5 mmol/L Normal 3.5-5.1 [facility] Comment on above: Performed By: #### M G, URIC, RENAL #### [facility] [address] [address] [address] Dario Gil Sodium [Moles/Vol] 134 mmol/L Critically low 136-145 [facility] Comment on above: Performed By: #### M G, URIC, RENAL #### [facility] [address] [address] [address] Dario Gil Urea nitrogen [Mass/Vol] 26.0 mg/dL Critically high 7.0-18.0 [facility] Comment on above: Performed By: #### M G, URIC, RENAL #### [facility] [address] [address] [address] Dario Gil TSHon 06-03-2022 TSH 8.041 uIU/mL Critically high 0.358-3.[address] [facility] Comment on above: Performed By: #### T SH #### [facility] [address] [place] [address] Dr. Dario Gil UA RANDOM W/MICROSCOPICon BACTERIA NONE SEEN Normal NONE SEEN [facility] Comment on above: Performed By: #### H H #### [facility] [address] [place] [address] Dr. Dario Gil Bilirubin Ql (U) Negative Normal NEGATIVE [facility] Comment on above: Performed By: #### H H #### [facility] [address] [place] [address] Dr. Dario Gil CAST NONE SEEN Normal NONE SEEN [facility] Comment on above: Performed By: #### H H #### [facility] [address] [place] [address] Dr. Dario Gil Clarity (U) CLEAR Normal CLEAR [facility] Comment on above: Performed By: #### H H #### [facility] [address] [place] [address] Dr. Dario Gil Color (U) LT. YELLOW Normal YELLOW [facility] Comment on above: Performed By: #### H H #### [facility] [address] [place] [address] Dr. Dario Gil Crystals LM Nom (Urine sed) NONE SEEN Normal NONE SEEN [facility] Comment on above: Performed By: #### H H #### [facility] [address] [place] [address] Dr. Dario Gil Epithelial cells LM Ql (Urine sed) FEW Abnormal NONE SEEN /RARE [facility] Comment on above: Performed By: #### H H #### [facility] [address] [place] [address] Dr. Dario Gil Glucose Ql (U) Negative Normal NEGATIVE [facility] Comment on above: Performed By: #### H H #### [facility] [address] [place] [address] Dr. Dario Gil Hemoglobin Ql (U) Negative Normal NEGATIVE [facility] Comment on above: Performed By: #### H H #### [facility] [address] [place] [address] Dr. Dario Gil Ketones Ql (U) Negative Normal NEGATIVE [facility] Comment on above: Performed By: #### H H #### [facility] [address] [place] [address] Dr. Dario Gil LEUKOCYTES TRACE Abnormal NEGATIVE [facility] Comment on above: Performed By: #### H H #### [facility] [address] [place] [address] Dr. Dario Gil MUCOUS NONE SEEN Normal NONE SEEN [facility] Comment on above: Performed By: #### H H #### [facility] [address] [place] [address] Dr. Dario Gil Nitrite Ql (U) Negative Normal NEGATIVE [facility] Comment on above: Performed By: #### H H #### [facility] [address] [place] [address] Dr. Dario Gil pH (U) 5.5 [pH] Normal 5-9 [facility] Comment on above: Performed By: #### H H #### [facility] [address] [place] [address] Dr. Dario Gil RBC 0-2 Normal 0-[address] [facility] Comment on above: Performed By: #### H H #### [facility] [address] [place] [address] Dr. Dario Gil SPEC GRAVITY 1.010 Normal 1.005-<=1. [address] [facility] Comment on above: Performed By: #### H H #### [facility] [address] [place] [address] Dr. Dario Gil UA PROTEIN Negative Normal NEGATIVE/ TRACE [facility] Comment on above: Performed By: #### H H #### [facility] [address] [place] [address] Dr. Dario Gil Urobilinogen Qn (U) 0.2 {Carlos'U}/dL Normal 0.2 - 1. 0 [facility] Comment on above: Performed By: #### H H #### [facility] [address] [place] [address] Dr. Dario Gil WBC 0-2 Abnormal NONE SEEN The [facility] Comment on above: Performed By: #### H H #### [facility] [address] [place] [address] Dr. Dario Gil URIC ACID SERUMon 06-03-2022 Urate [Mass/Vol] 5.1 mg/dL Normal 2.6-6.0 [facility] Comment on above: Performed By: #### M G, URIC, RENAL #### [facility] [address] [place] [address] Dr. Dario Gil URINE T PROTEIN CREAT RATIOo n 06-03-2022 Protein (U) [Mass/Vol] 5.5 mg/dL Normal <=12.[address] [facility] Comment on above: Performed By: #### H H #### [facility] [address] [place] [address] Dr. Dario Gil UR PROT CREAT RAT 0.07 Normal [facility] Comment on above: Performed By: #### H H #### [facility] [address] [place] [address] Dr. Dario Gil URINE CREAT 77.51 mg/dL Normal 20.00-300. 00 [facility] Comment on above: Performed By: #### H H #### [facility] [address] [place] [address] Dr. Dario Gil VITAMIN D 25 OHon 06-03-2022 VIT D 25-OH 58.1 ng/mL Normal [facility] Comment on above: Performed By: #### H H #### [facility] [address] [place] [address] Dr. Dario Gil VIT D RANGES SEE BELOW Normal [facility] Comment on above: Result Comment: <20 ng/mL Vit D deficient 20 - <30 ng/mL Vit D insufficient 30 - 100 ng/mL Vit D sufficient >100 ng/mL Potential Toxicity Performed By: #### H H #### [facility] [address] [place] [address] Dr. Dario Gil Office Visit (Cardiology)on 03-18-2022 [...] MOUTH TWICE A DAY NEEDED Allergies Medication [id number] PTWK Adverse Reaction; Shortness of breath;; Recorded [...] and no PND. Vitals Vital Signs Recorded: [id number] 11:35AMRecorded: [id number] 11:23AM [id number], [id number], LUE, Sitting Iohsimfco63, Uvczcaed70, LUE, Sitting Heart Rate60, L Radial Height5 ft 4 in Dvdebq464 lb BMI Vctbqmizbz71.2 kg/m2 BSA Calculated1.69 Tobacco Useb) No Falls [...] and affect . Signatures Meera Avalos MSN, POWER SYSTEM DISPATCHER-[employer] ACCESS DEVELOPER, PMHNP-BC [facility] [employer] Please excuse any errors in grammar or translation related to this dictation. Voice recognition software was utilized to prepare this document. Electronically (more content not included)... Normal Qian [employer] Tobacco Screening.on 022 Fall risk assessment a) No falls within the last year -[facility] [employer] DO Work Phone: Tobacco use status CPHS b) No M P-[facility] [employer] DO Work Phone: PROF CHEM 8 (BAS METB)on Anion gap [Moles/Vol] 5.7 mmol/L Normal [facility] Comment on above: Performed By: #### H H #### [facility] [address] [address] [address] Dario Gil Calcium [Mass/Vol] 9.3 mg/dL Normal 8.5-10.1 [facility] Comment on above: Performed By: #### H H #### [facility] [address] [address] [address] Dario Gil Chloride [Moles/Vol] 97 mmol/L Critically low 98-[address] [facility] Comment on above: Performed By: #### H H #### [facility] [address] [address] [address] Dario Gil CO2 [Moles/Vol] 31.9 mmol/L Normal 21.0-32.0 [facility] Comment on above: Performed By: #### H H #### [facility] [address] [address] [address] Dario Gil Creatinine [Mass/Vol] 1.34 mg/dL Critically high 0.55-1.02 [facility] Comment on above: Performed By: #### H H #### [facility] [address] [address] [address] Dario Gil EGFR-AF SWISS 46 mL/min/1.73m2 Critically low >=60 [facility] Comment on above: Performed By: #### H H #### [facility] [address] [address] [address] Dario Gil EGFR-NON AF SWISS 38 mL/min/1.73m2 Critically low >=60 [facility] Comment on above: Performed By: #### H H #### [facility] [address] [address] [address] Dario Gil Glucose [Mass/Vol] 92 mg/dL Normal 74-106 [facility] Comment on above: Performed By: #### H H #### [facility] [address] [address] [address] Dario Gil Potassium [Moles/Vol] 4.6 mmol/L Normal 3.5-5.1 [facility] Comment on above: Performed By: #### H H #### [facility] [address] [address] [address] Dario Gil Sodium [Moles/Vol] 130 mmol/L Critically low 136-145 [facility] Comment on above: Performed By: #### H H #### [facility] [address] [address] [address] Dario Gil Urea nitrogen [Mass/Vol] 28.0 mg/dL Critically high 7.0-18.0 [facility] Comment on above: Performed By: #### H H #### [facility] [address] [address] [address] Dario Gil Urea nitrogen/Creatinine [Mass ratio] 20.9 mg/mg Normal [facility] Comment on above: Performed By: #### H H #### [facility] [address] [address] [address] Dario Gil Office Visit (Cardiology)on 01-15-2022 [...] MOUTH TWICE A DAY NEEDED Allergies Medication Kfzdofiz-[id number] PTWK Adverse Reaction; Shortness of breath;; Recorded [...] Signs Patient: JANELLE BURT; : 1940; Recorded: [id number] 11:16AMRecorded: [id number] 10:55AMRecorded: [id number] 10:48AM [id number], LUE, [id number], RUE, Sitting [id number], LUE, [id number], RUE, Sitting Heart Rate60, R Radial Height5 ft 4 in Vstiho016 lb BMI Pauwfeymev82.34 (more content not included)... Normal [employer] Tobacco Screening.on 022 Adult depression screening assessment No [facility] [employer] DO Work Phone: Fall risk assessment a) No falls within the last year [facility] [employer] DO Work Phone: Tobacco use status CPHS b) No M [facility] [employer] DO Work Phone: PTH INTACTon 12-05-2021 PTH, Intact 14 pg/mL Critically low 15-65 [facility] Comment on above: Performed By: #### P THINT #### [facility] [address] [address] [address] Dario Gil VIT D 25-OH LABCORPon 2021 Vitamin D, 25-Hydroxy 22.8 ng/mL Critically low 30.0-100.[address] [facility] Comment on above: Result Comment: Eliza min D deficiency has been defined by the [place] of [employer] and an Endocrine Society practice guideline as a level of serum 25-OH vitamin D less than 20 ng/mL (1,2). The Endocrine Society went on to further define vitamin D insufficiency as a level between 21 and 29 ng/mL (2). 1. IOM ([place] of [employer]). 2010. Dietary reference intakes for calcium and D. [place]: The National Academies Press. 2. Mark WEEMS, Dustin CENTENO, Coni WARD, et al. Evaluation, treatment, and prevention of vitamin D deficiency: an Endocrine Society clinical practice guideline. JCEM. 2010; 96(7):1911-30. Performed By: #### V ITADLC #### [facility] [address] [place] [address] Dr. Dario Gil HEMOGRAM AND PLATELon 2021 Hematocrit (Bld) [Volume fraction] 44.0 % Normal 36.0-48.0 [facility] Comment on above: Performed By: #### H H #### [facility] [address] [place] [address] Dr. Dario Gil Hemoglobin (Bld) [Mass/Vol] 14.9 g/dL Normal 12.0-16.0 [facility] Comment on above: Performed By: #### H H #### [facility] [address] [place] [address] Dr. Dario Gil MCH (RBC) [Entitic mass] 29.7 pg Normal 26.7-34.0 [facility] Comment on above: Performed By: #### H H #### [facility] [address] [place] [address] Dr. Dario Gil MCHC (RBC) [Mass/Vol] 33.9 g/dL Normal 29.9-35.2 [facility] Comment on above: Performed By: #### H H #### [facility] [address] [place] [address] Dr. Dario Gil MCV (RBC) [Entitic vol] 87.8 fL Normal 81.0-99.0 [facility] Comment on above: Performed By: #### H H #### [facility] [address] [place] [address] Dr. Dario Gil PLT 245 103/ul Normal 150-[address] [facility] Comment on above: Performed By: #### H H #### [facility] [address] [place] [address] Dr. Dario Gil RBC 5.01 106/ul Normal 4.20-5.40 [facility] Comment on above: Performed By: #### H H #### [facility] [address] [address] [address] Dario Gil WBC 5.8 103/ul Normal 4.0-11.0 [facility] Comment on above: Performed By: #### H H #### [facility] [address] [address] [address] Dario Gil MAGNESIUMon 12-04-2021 Magnesium [Mass/Vol] 1.9 mg/dL Normal 1.8-2.[address] [facility] Comment on above: Performed By: #### H H #### [facility] [address] [place] [address] Dr. Dario Gil RENAL FUNCTION PANELon 12-04 Albumin [Mass/Vol] 3.9 g/dL Normal 3.4-5.0 [facility] Comment on above: Performed By: #### H H #### [facility] [address] [place] [address] Dr. Dario Gil Calcium [Mass/Vol] 9.4 mg/dL Normal 8.5-10.[address] [facility] Comment on above: Performed By: #### H H #### [facility] [address] [place] [address] Dr. Dario Gil Chloride [Moles/Vol] 96 mmol/L Critically low 98-[address] [address] [facility] [facility] Comment on above: Performed By: #### H H #### [facility] [address] [place] [address] Dr. Dario Gil CO2 [Moles/Vol] 30.8 mmol/L Normal 21.0-32.[address] [facility] Comment on above: Performed By: #### H H #### [facility] [address] [place] [address] Dr. Dario Gil Creatinine [Mass/Vol] 1.25 mg/dL Critically high 0.55-1.[address] [facility] Comment on above: Performed By: #### H H #### [facility] [address] [place] [address] Dr. Dario Gil EGFR-AF SWISS 50 mL/min/1.73m2 Critically low >=[address] [facility] Comment on above: Performed By: #### H H #### [facility] [address] [address] [address] Dario Gil EGFR-NON AF SWISS 41 mL/min/1.73m2 Critically low >=60 [facility] Comment on above: Performed By: #### H H #### [facility] [address] [address] [address] Dario Gil Glucose [Mass/Vol] 93 mg/dL Normal 74-106 [facility] Comment on above: Performed By: #### H H #### [facility] [address] [address] [address] Dario Gil Phosphate [Mass/Vol] 3.4 mg/dL Normal 2.6-4.7 [facility] Comment on above: Performed By: #### H H #### [facility] [address] [address] [address] Dario Gil Potassium [Moles/Vol] 4.2 mmol/L Normal 3.5-5.1 [facility] Comment on above: Performed By: #### H H #### [facility] [address] [address] [address] Dario Gil Sodium [Moles/Vol] 133 mmol/L Critically low 136-145 [facility] Comment on above: Performed By: #### H H #### [facility] [address] [address] [address] Dario Gil Urea nitrogen [Mass/Vol] 20.0 mg/dL Critically high 7.0-18.0 [facility] Comment on above: Performed By: #### H H #### [facility] [address] [address] [address] Dario Gil UA RANDOM W/MICROSCOPICon BACTERIA NONE SEEN Normal NONE SEEN The [facility] Comment on above: Performed By: #### U AMIC #### [facility] [address] [address] [address] Dario Gil Bilirubin Ql (U) Negative Normal NEGATIVE The [facility] Comment on above: Performed By: #### U AMIC #### [facility] [address] [address] [address] Dario Gil CAST NONE SEEN Normal NONE SEEN The [facility] Comment on above: Performed By: #### U AMIC #### [facility] [address] [address] [address] Dario Gil Clarity (U) CLEAR Normal CLEAR The [facility] Comment on above: Performed By: #### U AMIC #### [facility] [address] [address] [address] Dario Gil Color (U) LT. YELLOW Normal YELLOW The [facility] Comment on above: Performed By: #### U AMIC #### [facility] [address] [place] [address] Dr. Dario Gil Crystals LM Nom (Urine sed) NONE SEEN Normal NONE SEEN [facility] Comment on above: Performed By: #### U AMIC #### [facility] [address] [place] [address] Dr. Dario Gil Epithelial cells LM Ql (Urine sed) FEW Abnormal NONE SEEN /RARE The [facility] Comment on above: Performed By: #### U AMIC #### [facility] [address] [place] [address] Dr. Dario Gil Glucose Ql (U) Negative Normal NEGATIVE The [facility] Comment on above: Performed By: #### U AMIC #### [facility] [address] [place] [address] Dr. Dario Gil Hemoglobin Ql (U) Negative Normal NEGATIVE The [facility] Comment on above: Performed By: #### U AMIC #### [facility] [address] [place] [address] Dr. Dario Gil Ketones Ql (U) Negative Normal NEGATIVE The [facility] Comment on above: Performed By: #### U AMIC #### [facility] [address] [place] [address] Dr. Dario Gil LEUKOCYTES SMALL Abnormal NEGATIVE The [facility] Comment on above: Performed By: #### U AMIC #### [facility] [address] [place] [address] Dr. Dario Gil MUCOUS NONE SEEN Normal NONE SEEN The [facility] Comment on above: Performed By: #### U AMIC #### [facility] [address] [address] [address] Dario Gil Nitrite Ql (U) Negative Normal NEGATIVE The [facility] Comment on above: Performed By: #### U AMIC #### [facility] [address] [place] [address] Dr. Dario Gil pH (U) 7.0 [pH] Normal 5-[address] [facility] Comment on above: Performed By: #### U AMIC #### [facility] [address] [place] [address] Dr. Dario Gil RBC 0-2 Normal 0-[address] [facility] Comment on above: Performed By: #### U AMIC #### [facility] [address] [place] [address] Dr. Dario Gil SPEC GRAVITY 1.010 Normal 1.005-<=1. 025 [facility] Comment on above: Performed By: #### U AMIC #### [facility] [address] [place] [address] Dr. Dario Gil UA PROTEIN Negative Normal NEGATIVE/ TRACE The [facility] Comment on above: Performed By: #### U AMIC #### [facility] [address] [place] [address] Dr. Dario Gil Urobilinogen Qn (U) 0.2 {Carlos'U}/dL Normal 0.2 - 1. [address] [facility] Comment on above: Performed By: #### U AMIC #### [facility] [address] [place] [address] Dr. Dario Gil WBC 0-2 Abnormal NONE SEEN The [facility] Comment on above: Performed By: #### U AMIC #### [facility] [address] [place] [address] Dr. Dario Gil URIC ACID SERUMon 12-04-2021 Urate [Mass/Vol] 5.3 mg/dL Normal 2.6-6.0 [facility] Comment on above: Performed By: #### H H #### [facility] [address] [address] [address] Dario Gil URINE T PROTEIN CREAT RATIOo n 12-04-2021 Protein (U) [Mass/Vol] 6.0 mg/dL Normal <=12.[address] [facility] Comment on above: Performed By: #### H H #### [facility] [address] [address] [address] Dario Gil UR PROT CREAT RAT 0.06 Normal [facility] Comment on above: Performed By: #### H H #### [facility] [address] [address] [address] Dario Gil URINE CREAT 96.21 mg/dL Normal 20.00-300. 00 [facility] Comment on above: Performed By: #### H H #### [facility] [address] [place] [address] Dr. Dario Gil Tobacco Screening.on 021 Fall risk assessment a) No falls within the last year [facility] [employer] 250 DO Work Phone: Tobacco use status [facility] b) No M [facility] [employer] 250 DO Work Phone: Vital Signs Date Time Vital Sign Value Performing Clinician Facility 01-03-2025 13:15-0400 Body height 162.56 cm Antonino Gustafson MD Work Phone: [facility] 01-03-2025 13:15-0400 Body mass index (BMI) [Ratio] 22.6 kg/m2 Antonino Gustafson MD Work Phone: [facility] 01-03-2025 13:15-0400 Body weight 59.87 kg Antonino Gustafson MD Work Phone: [facility] 01-03-2025 13:15-0400 Diastolic blood pressure 78 mm[Hg] Antonino Gustafson MD Work Phone: [facility] 01-03-2025 13:15-0400 Heart rate 58 /min Antonino Gustafson MD Work Phone: [facility] 01-03-2025 13:15-0400 SaO2% (BldA) [Mass fraction] 98 % Antonino Gustafson MD Work Phone: [facility] 01-03-2025 13:15-0400 Systolic blood pressure 122 mm[Hg] Antonino Gustafson MD Work Phone: [facility] 11-21-2024 10:59-0400 Diastolic blood pressure 74 mm[Hg] Michael Ramos DO Work Phone: [facility] 11-21-2024 10:59-0400 Systolic blood pressure 132 mm[Hg] Michael Ramos DO Work Phone: [facility] 11-21-2024 10:56-0400 Body height 162.6 cm Michael Ramos DO Work Phone: [facility] 11-21-2024 10:56-0400 Body mass index (BMI) [Ratio] 22.31 kg/m2 Michael Ramos DO Work Phone: [facility] 11-21-2024 10:56-0400 Body weight 58.97 kg Michael Richard DO Work Phone: [facility] 11-21-2024 10:56-0400 Heart rate 52 /min Michael Ramos DO Work Phone: [facility] 09-27-2024 11:20-0400 Diastolic blood pressure 90 mm[Hg] Michael Ramos DO Work Phone: [facility] 09-27-2024 11:20-0400 Systolic blood pressure 170 mm[Hg] Michael Ramos DO Work Phone: [facility] 09-27-2024 10:52-0400 Body height 162.6 cm Michael Ramos DO Work Phone: [facility] 09-27-2024 10:52-0400 Body mass index (BMI) [Ratio] 23.14 kg/m2 Michael Ramos DO Work Phone: [facility] 09-27-2024 10:52-0400 Body weight 61.15 kg Michael Ramos DO Work Phone: [facility] 09-27-2024 10:52-0400 Heart rate 68 /min Michael Ramos DO Work Phone: [facility] 09-25-2024 14:34-0400 Body height 162.56 cm Antonino Gustafson MD Work Phone: [facility] 09-25-2024 14:34-0400 Body mass index (BMI) [Ratio] 22.7 kg/m2 Antonino Gustafson MD Work Phone: [facility] 09-25-2024 14:34-0400 Body weight 60.1 kg Antonino Gustafson MD Work Phone: [facility] 09-25-2024 14:34-0400 Diastolic blood pressure 81 mm[Hg] Antonino Gustafson MD Work Phone: [facility] 09-25-2024 14:34-0400 Heart rate 61 /min Antonino Gustafson MD Work Phone: [facility] 09-25-2024 14:34-0400 Systolic blood pressure 190 mm[Hg] Antonino Gustafson MD Work Phone: [facility] 09-20-2024 10:37-0400 Body height 162.56 cm Antonino Gustafson MD Work Phone: [facility] 09-20-2024 10:37-0400 Body mass index (BMI) [Ratio] 23.1 kg/m2 Antonino Gustafson MD Work Phone: [facility] 09-20-2024 10:37-0400 Body weight 61.24 kg Antonino Gustafson MD Work Phone: [facility] 09-20-2024 10:37-0400 Diastolic blood pressure 86 mm[Hg] Antonino Gustafson MD Work Phone: [facility] 09-20-2024 10:37-0400 Heart rate 64 /min Antonino Gustafson MD Work Phone: [facility] 09-20-2024 10:37-0400 SaO2% (BldA) [Mass fraction] 97 % Antonino Gustafson MD Work Phone: [facility] 09-20-2024 10:37-0400 Systolic blood pressure 148 mm[Hg] Antonino Gustafson MD Work Phone: [facility] 08-29-2024 14:22-0400 Body height 162.56 cm Antonino Gustafson MD Work Phone: [facility] 08-29-2024 14:22-0400 Body mass index (BMI) [Ratio] 23.1 kg/m2 Antonino Gustafson MD Work Phone: [facility] 08-29-2024 14:22-0400 Body weight 61.23 kg Antonino Gustafson MD Work Phone: [facility] 08-29-2024 14:22-0400 Diastolic blood pressure 73 mm[Hg] Antonino Gustafson MD Work Phone: [facility] 08-29-2024 14:22-0400 Heart rate 64 /min Antonino Gustafson MD Work Phone: [facility] 08-29-2024 14:22-0400 Respiratory rate 12 /min Antonino Gustafson MD Work Phone: [facility] 08-29-2024 14:22-0400 SaO2% (BldA) [Mass fraction] 97 % Antonino Gustafson MD Work Phone: [facility] 08-29-2024 14:22-0400 Systolic blood pressure 158 mm[Hg] Antonino Gustafson MD Work Phone: [facility] 08-07-2024 14:05-0400 Body height 162.56 cm Antonino Gustafson MD Work Phone: [facility] 08-07-2024 14:05-0400 Body mass index (BMI) [Ratio] 22.6 kg/m2 Antonino Gustafson MD Work Phone: [facility] 08-07-2024 14:05-0400 Body weight 59.87 kg Antonino Gustafson MD Work Phone: [facility] 08-07-2024 14:05-0400 Diastolic blood pressure 68 mm[Hg] Antonino Gustafson MD Work Phone: [facility] 08-07-2024 14:05-0400 Heart rate 66 /min Antonino Gustafson MD Work Phone: [facility] 08-07-2024 14:05-0400 Systolic blood pressure 186 mm[Hg] Antonino Gustafson MD Work Phone: [facility] 08-02-2024 04:35-0400 Body temperature 97.3 [degF] Antonino Gustafson MD Work Phone: [facility] 08-02-2024 04:35-0400 Diastolic blood pressure 79 mm[Hg] Antonino Gustafson MD Work Phone: [facility] 08-02-2024 04:35-0400 Heart rate 60 /min Antonino Gustafson MD Work Phone: [facility] 08-02-2024 04:35-0400 Respiratory rate 15 /min Antonino Gustafson MD Work Phone: [facility] 08-02-2024 04:35-0400 SaO2% (BldA) [Mass fraction] 97 % Antonino Gustafson MD Work Phone: [facility] 08-02-2024 04:35-0400 Systolic blood pressure 182 mm[Hg] Antonino Gustafson MD Work Phone: [facility] 08-01-2024 12:25-0400 Body height 162.56 cm Antonino Gustafson MD Work Phone: [facility] 07-30-2024 04:54-0400 Body weight 60.2 kg Antonino Gustafson MD Work Phone: [facility] 07-25-2024 12:00-0400 Body temperature 98.1 [degF] Antonino Gustafson MD Work Phone: [facility] 07-25-2024 12:00-0400 Diastolic blood pressure 65 mm[Hg] Antonino Gustafson MD Work Phone: [facility] 07-25-2024 12:00-0400 Heart rate 63 /min Antonino Gustafson MD Work Phone: [facility] 07-25-2024 12:00-0400 Respiratory rate 24 /min Antonino Gustafson MD Work Phone: [facility] 07-25-2024 12:00-0400 SaO2% (BldA) [Mass fraction] 96 % Antonino Gustafson MD Work Phone: [facility] 07-25-2024 12:00-0400 Systolic blood pressure 138 mm[Hg] Antonino Gustafson MD Work Phone: [facility] 07-25-2024 06:00-0400 Body weight 64.1 kg Antonino Gustafson MD Work Phone: [facility] 07-23-2024 16:01-0400 Body height 160.02 cm Antonino Gustafson MD Work Phone: [facility] 07-23-2024 08:00-0400 Inhaled oxygen flow rate 2 L/min Antonino Gustafson MD Work Phone: [facility] 07-23-2024 01:21-0400 Diastolic blood pressure 63 mm[Hg] Antonino Gustafson MD Work Phone: [facility] 07-23-2024 01:21-0400 Heart rate 95 /min Antonino Gustafson MD Work Phone: [facility] 07-23-2024 01:21-0400 Inhaled oxygen flow rate 2 L/min Antonino Gustafson MD Work Phone: [facility] 07-23-2024 01:21-0400 Respiratory rate 18 /min Antonino Gustafson MD Work Phone: [facility] 07-23-2024 01:21-0400 SaO2% (BldA) [Mass fraction] 99 % Antonino Gustafson MD Work Phone: [facility] 07-23-2024 01:21-0400 Systolic blood pressure 158 mm[Hg] Antonino Gustafson MD Work Phone: [facility] 07-22-2024 21:12-0400 Body temperature 98.7 [degF] Antonino Gustafson MD Work Phone: [facility] 07-22-2024 21:090400 Body height 165.1 cm Antonino Gustafson MD Work Phone: [facility] 07-22-2024 21:090400 Body weight 61.5 kg Antonino Gustafson MD Work Phone: [facility] 05-25-2024 10:28-0500 Diastolic blood pressure 82 mm[Hg] Michael Ramos DO Work Phone: [facility] 05-25-2024 10:28-0500 Systolic blood pressure 148 mm[Hg] Michael Ramos DO Work Phone: [facility] 05-25-2024 10:250500 Body height 162.6 cm Michael Ramos DO Work Phone: [facility] 05-25-2024 10:25-0500 Body mass index (BMI) [Ratio] 22.8 kg/m2 Michael Ramos DO Work Phone: [facility] 05-25-2024 10:250500 Body weight 60.24 kg Michael Ramos DO Work Phone: [facility] 05-25-2024 10:25-0500 Heart rate 60 /min Michael Ramos DO Work Phone: [facility] 05-22-2024 13:36-0500 Body height 162.56 cm [facility] 05-22-2024 13:36-0500 Body mass index (BMI) [Ratio] 22 kg/m2 [facility] 05-22-2024 13:36-0500 Body weight 58.28 kg [facility] 05-22-2024 13:36-0500 Diastolic blood pressure 80 mm[Hg] [facility] 05-22-2024 13:36-0500 Heart rate 56 /min [facility] 05-22-2024 13:36-0500 Respiratory rate 12 /min [facility] 05-22-2024 13:36-0500 SaO2% (BldA) [Mass fraction] 97 % [facility] 05-22-2024 13:36-0500 Systolic blood pressure 124 mm[Hg] [facility] 04-05-2024 11:59-0500 Diastolic blood pressure 78 mm[Hg] Michael Ramos DO Work Phone: [facility] 04-05-2024 11:59-0500 Systolic blood pressure 180 mm[Hg] Michael Ramos DO Work Phone: [facility] 04-05-2024 11:19-0500 Heart rate 56 /min Michael Ramos DO Work Phone: [facility] 04-05-2024 11:15-0500 Body height 162.6 cm Michael Ramos DO Work Phone: [facility] 04-05-2024 11:15-0500 Body mass index (BMI) [Ratio] 22.31 kg/m2 Michael Ramos DO Work Phone: [facility] 04-05-2024 11:15-0500 Body weight 58.97 kg Michael Ramos DO Work Phone: [facility] 04-04-2024 13:33-0500 Body height 162.6 cm Amanda Bray [employer] Work Phone: [facility] 04-04-2024 13:33-0500 Body mass index (BMI) [Ratio] 22.31 kg/m2 Amanda Bray [employer] Work Phone: [facility] 04-04-2024 13:33-0500 Body weight 58.97 kg Amanda Bray [employer] Work Phone: [facility] 04-04-2024 13:33-0500 Diastolic blood pressure 68 mm[Hg] Amanda Bray [employer] Work Phone: [facility] 04-04-2024 13:33-0500 Heart rate 67 /min Amanda Bray [employer] Work Phone: [facility] 04-04-2024 13:33-0500 SaO2% (BldA) [Mass fraction] 99 % Amanda Bray [employer] Work Phone: [facility] 04-04-2024 13:33-0500 Systolic blood pressure 122 mm[Hg] Amanda Bray [employer] Work Phone: [facility] 03-28-2024 10:33-0500 Body height 162.56 cm [facility] 03-28-2024 10:33-0500 Body mass index (BMI) [Ratio] 22.3 kg/m2 [facility] 03-28-2024 10:33-0500 Body temperature 96.9 [degF] [facility] 03-28-2024 10:33-0500 Body weight 58.96 kg [facility] 03-28-2024 10:33-0500 Diastolic blood pressure 85 mm[Hg] [facility] 03-28-2024 10:33-0500 Heart rate 62 /min [facility] 03-28-2024 10:33-0500 Respiratory rate 16 /min [facility] 03-28-2024 10:33-0500 SaO2% (BldA) [Mass fraction] 98 % [facility] 03-28-2024 10:33-0500 Systolic blood pressure 163 mm[Hg] [facility] 03-14-2024 13:41-0500 Body height 162.56 cm [facility] 03-14-2024 13:41-0500 Body mass index (BMI) [Ratio] 22.3 kg/m2 [facility] 03-14-2024 13:41-0500 Body weight 58.96 kg [facility] 03-14-2024 13:41-0500 Diastolic blood pressure 77 mm[Hg] [facility] 03-14-2024 13:41-0500 Heart rate 61 /min [facility] 03-14-2024 13:41-0500 Systolic blood pressure 178 mm[Hg] [facility] 03-07-2024 14:06-0500 Hourly Rounding Willie Ca[facility] 03-07-2024 14:06-0500 Promise to Return Willie Caio [facility] 03-07-2024 13:19-0500 Hourly Rounding Willie Caio [facility] 03-07-2024 13:19-0500 Promise to Return Willie Caio [facility] 03-07-2024 12:28-0500 Hourly Rounding Willie Caio [facility] 03-07-2024 12:28-0500 Promise to Return Willie Caio [facility] 03-07-2024 11:45-0500 Diastolic blood pressure 63 mm[Hg] Willie Caio [facility] 03-07-2024 11:45-0500 Heart rate 86 /min Willie Caio [facility] 03-07-2024 11:45-0500 Systolic blood pressure 149 mm[Hg] Willie Caio [facility] 03-07-2024 10:13-0500 Heart rate 86 /min Willie Caio [facility] 03-07-2024 10:13-0500 SaO2% (BldA) [Mass fraction] 96 % Willie Caio [facility] 03-07-2024 10:12-0500 Diastolic blood pressure 63 mm[Hg] Willie Caio [facility] 03-07-2024 10:12-0500 Mean blood pressure 92 mm[Hg] Willie Caio [facility] 03-07-2024 10:12-0500 Systolic blood pressure 149 mm[Hg] Willie Fatimaer [facility] 03-07-2024 10:12-0500 Body temperature 98.06 [degF] Willie Fatimaer [facility] 03-07-2024 07:22-0500 Heart rate 87 /min Willie Fatimaer [facility] 03-07-2024 07:22-0500 SaO2% (BldA) [Mass fraction] 97 % Willie Kearney [facility] 03-07-2024 07:21-0500 Diastolic blood pressure 67 mm[Hg] Willie [facility] 03-07-2024 07:21-0500 Mean blood pressure 102 mm[Hg] Willie [facility] 03-07-2024 07:21-0500 Systolic blood pressure 173 mm[Hg] Willie K[facility] 03-07-2024 07:19-0500 Body temperature 98.24 [degF] Willie K[facility] 03-07-2024 04:00-0500 Blood Pressure Location Willei Fatimaer [facility] 03-07-2024 04:00-0500 Body temperature 98.78 [degF] Willie Fatimaer [facility] 03-07-2024 04:00-0500 Heart rate 85 /min Willie Fatimaer [facility] 03-07-2024 04:00-0500 Mean blood pressure 105 mm[Hg] Willie Fatimaer [facility] 03-07-2024 04:00-0500 Respiratory rate 18 /min Willie K[facility]ney [facility] 03-07-2024 01:00-0500 Heart rate 70 /min Willie K[facility]ney [facility] 03-07-2024 01:00-0500 Mean blood pressure 99 mm[Hg] Willie K[facility]ney [facility] 03-07-2024 01:00-0500 Respiratory rate 18 /min Willie K[facility]ney [facility] 03-07-2024 00:00-0500 Body temperature 98.6 [degF] Willie K[facility]ney [facility] 03-06-2024 21:25-0500 Blood Pressure Location Willie Kearney [facility] 03-06-2024 21:25-0500 Body temperature 98.24 [degF] Willie K[facility]ney [facility] 03-06-2024 20:38-0500 Mean blood pressure 111 mm[Hg] Willie Kearney [facility] 03-06-2024 20:38-0500 Body temperature 98.24 [degF] Willie Kearney [facility] 01-18-2024 12:19-0400 Diastolic blood pressure 100 mm[Hg] Michael Ramos DO Work Phone: [facility] 01-18-2024 12:19-0400 Systolic blood pressure 170 mm[Hg] Michael Ramos DO Work Phone: [facility] 01-18-2024 11:21-0400 Body height 162.6 cm Michael Ramos DO Work Phone: [facility] 01-18-2024 11:21-0400 Body mass index (BMI) [Ratio] 23 kg/m2 Michael Ramos DO Work Phone: [facility] 01-18-2024 11:040 Body weight 60.78 kg Michael Ramos DO Work Phone: [facility] 01-18-2024 11:040 Heart rate 60 /min Michael Ramos DO Work Phone: [facility] 12-22-2023 13:040 Body height 162.56 cm [facility] 12-22-2023 13:0400 Body mass index (BMI) [Ratio] 23.6 kg/m2 [facility] 12-22-2023 13:26-0400 Body temperature 96.8 [degF] [facility] 12-22-2023 13:26-0400 Body weight 62.25 kg [facility] 12-22-2023 13:26-0400 Diastolic blood pressure 74 mm[Hg] [facility] 12-22-2023 13:26-0400 Heart rate 68 /min [facility] 12-22-2023 13:26-0400 Respiratory rate 16 /min [facility] 12-22-2023 13:26-0400 SaO2% (BldA) [Mass fraction] 98 % [facility] 12-22-2023 13:26-0400 Systolic blood pressure 131 mm[Hg] [facility] 12-17-2023 11:130400 Body height 162.56 cm [facility] 12-17-2023 11:130400 Body mass index (BMI) [Ratio] 22.6 kg/m2 [facility] 12-17-2023 11:130400 Body weight 59.87 kg [facility] 12-17-2023 11:13-0400 Diastolic blood pressure 68 mm[Hg] [facility] 12-17-2023 11:13-0400 Heart rate 63 /min [facility] 12-17-2023 11:13-0400 Systolic blood pressure 162 mm[Hg] [facility] 08-05-2023 10:46-0400 Body height 162.56 cm [facility] 08-05-2023 10:46-0400 Body mass index (BMI) [Ratio] 23.3 kg/m2 [facility] 08-05-2023 10:46-0400 Body temperature 96.1 [degF] [facility] 08-05-2023 10:46-0400 Body weight 61.8 kg [facility] 08-05-2023 10:46-0400 Diastolic blood pressure 80 mm[Hg] [facility] 08-05-2023 10:46-0400 Heart rate 68 /min [facility] 08-05-2023 10:46-0400 Respiratory rate 16 /min [facility] 08-05-2023 10:46-0400 SaO2% (BldA) [Mass fraction] 98 % [facility] 08-05-2023 10:46-0400 Systolic blood pressure 132 mm[Hg] [facility] 05-18-2023 11:27-0500 Body height 162.6 cm Michael Ramos DO Work Phone: [facility] 05-18-2023 11:27-0500 Body mass index (BMI) [Ratio] 22.49 kg/m2 Michael Ramos DO Work Phone: [facility] 05-18-2023 11:27-0500 Body weight 59.42 kg Michael Ramos DO Work Phone: [facility] 05-18-2023 11:27-0500 Diastolic blood pressure 80 mm[Hg] Michael Ramos DO Work Phone: [facility] 05-18-2023 11:27-0500 Heart rate 64 /min Michael Ramos DO Work Phone: [facility] 05-18-2023 11:27-0500 Systolic blood pressure 140 mm[Hg] Michael Ramos DO Work Phone: [facility] 03-10-2023 10:36-0500 Body height 162.6 cm Meera PEARL Work Phone: [facility] 03-10-2023 10:36-0500 Body mass index (BMI) [Ratio] 22.31 kg/m2 Meera Avalos POWER 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 DISPATCHER-[employer]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 DEVELOPER Work Phone: [facility] 03-10-2023 10:36-0500 Body weight 58.97 kg Meera Avalos POWER SYSTEM DISPATCHER-[employer] ACCESS DEVELOPER Work Phone: [facility] 03-10-2023 10:36-0500 Diastolic blood pressure 66 mm[Hg] Meera Avalos POWER SYSTEM DISPATCHER-[employer] ACCESS DEVELOPER Work Phone: [facility] 03-10-2023 10:36-0500 Heart rate 64 /min Meera Avalos POWER SYSTEM DISPATCHER-[employer] ACCESS DEVELOPER Work Phone: [facility] 03-10-2023 10:36-0500 Systolic blood pressure 140 mm[Hg] Meera Avalos POWER SYSTEM DISPATCHER-[employer] ACCESS DEVELOPER Work Phone: [facility] 02-02-2023 11:00-0500 Body height 162.56 cm Antonino Gustafson Other [employer] Other 02-02-2023 11:00-0500 Body mass index (BMI) [Ratio] 22.14 kg/m2 Antonino Gustafson Other [employer] Other 02-02-2023 11:00-0500 Body weight 58.51 kg Antonino Gustafson Other [employer] Other 02-02-2023 11:00-0500 Diastolic blood pressure 63 mm[Hg] Antonino Gustafson Other [employer] Other 02-02-2023 11:00-0500 Systolic blood pressure 127 mm[Hg] Antonino Gustafson Other [employer] Other 01-29-2023 14:05-0400 Body temperature 97.2 [degF] MD Antonino Gustafson Work Phone: [facility] 01-29-2023 14:05-0400 Diastolic blood pressure 71 mm[Hg] MD Antonino Gustafson Work Phone: [facility] 01-29-2023 14:05-0400 Heart rate 75 /min MD Antonino Gustafson Work Phone: [facility] 01-29-2023 14:05-0400 Respiratory rate 16 /min MD Antonino Gustafson Work Phone: [facility] 01-29-2023 14:05-0400 SaO2% (BldA) [Mass fraction] 95 % MD Antonino Gustafson Work Phone: [facility] 01-29-2023 14:05-0400 Systolic blood pressure 156 mm[Hg] MD Antonino Gustafson Work Phone: [facility] 01-29-2023 05:56-0400 Body weight 57.1 kg MD Antonino Gustafson Work Phone: [facility] 01-28-2023 16:00-0400 Body height 162.56 cm MD Antonino Gustafson Work Phone: [facility] 01-27-2023 10:54-0400 Body temperature 97.8 [degF] MD Antonino Gustafson Work Phone: [facility] 01-27-2023 10:54-0400 Diastolic blood pressure 74 mm[Hg] MD Antonino Gustafson Work Phone: [facility] 01-27-2023 10:54-0400 Heart rate 64 /min MD Antonino Gustafson Work Phone: [facility] 01-27-2023 10:54-0400 Respiratory rate 20 /min MD Antonino Gustafson Work Phone: [facility] 01-27-2023 10:54-0400 SaO2% (BldA) [Mass fraction] 100 % MD Antonino Gustafson Work Phone: [facility] 01-27-2023 10:54-0400 Systolic blood pressure 181 mm[Hg] MD Antonino Gustafson Work Phone: [facility] 01-27-2023 07:53-0400 Body height 162.56 cm MD Antonino Gustafson Work Phone: [facility] 01-27-2023 07:53-0400 Body weight 58.96 kg MD Antonino Gustafson Work Phone: [facility] 01-04-2023 13:00-0400 Body height 162.56 cm Liliya Bhavna Other [employer] Other 01-04-2023 13:00-0400 Body mass index (BMI) [Ratio] 22.59 kg/m2 Liliya Bhavna Other [employer] Other 01-04-2023 13:00-0400 Body temperature 96.4 [degF] Liliya Bhavna Other [employer] Other 01-04-2023 13:00-0400 Body weight 59.69 kg Liliya Bhavna Other [employer] Other 01-04-2023 13:00-0400 Diastolic blood pressure 74 mm[Hg] Liliya Bhavna Other [employer] Other 01-04-2023 13:00-0400 Respiratory rate 18 /min Liliya Bhavna Other [employer] Other 01-04-2023 13:00-0400 SaO2% (BldA) [Mass fraction] 98 % Liliya Bhanva Other [employer] Other 01-04-2023 13:00-0400 Systolic blood pressure 153 mm[Hg] Liliya Bhavna Other [employer] Other 11-03-2022 15:30-0400 Body height 162.56 cm Antonino Gustafson Other [employer] Other 11-03-2022 15:30-0400 Body mass index (BMI) [Ratio] 22.83 kg/m2 Antonino Gustafson Other [employer] Other 11-03-2022 15:30-0400 Body weight 60.33 kg Antonino Gustafosn Other [employer] Other 11-03-2022 15:30-0400 Diastolic blood pressure 55 mm[Hg] Antonino Gustafson Other [employer] Other 11-03-2022 15:30-0400 Systolic blood pressure 146 mm[Hg] Antonino Gustafson Other [employer] Other 06-11-2022 11:40-0400 Body height 162.56 cm Liliya Bhavna Other [employer] Other 06-11-2022 11:40-0400 Body mass index (BMI) [Ratio] 24.92 kg/m2 Liliya Bhavna Other [employer] Other 06-11-2022 11:40-0400 Body temperature 96.9 [degF] Liliya Bhavna Other [employer] Other 06-11-2022 11:40-0400 Body weight 65.86 kg Liliya Bhavna Other [employer] Other 06-11-2022 11:40-0400 Diastolic blood pressure 88 mm[Hg] Liliya Bhavna Other [employer] Other 06-11-2022 11:40-0400 Respiratory rate 18 /min Liliya Bhavna Other [employer] Other 06-11-2022 11:40-0400 SaO2% (BldA) [Mass fraction] 98 % Liliya Bhavna Other [employer] Other 06-11-2022 11:40-0400 Systolic blood pressure 138 mm[Hg] Liliya Bhavna Other [employer] Other 03-18-2022 11:35-0500 Diastolic blood pressure 62 mm[Hg] Antonino Gustafson Work Phone: [facility] [email or web address] DO Work Phone: 03-18-2022 11:35-0500 Systolic blood pressure 130 mm[Hg] Antonino Gustafson Work Phone: [facility] [employer] 250 DO Work Phone: 03-18-2022 11:23-0500 Body height 162.56 cm Antonino Gustafson Work Phone: [facility] [employer] 250 DO Work Phone: 03-18-2022 11:23-0500 Body mass index (BMI) [Ratio] 24.2 kg/m2 Antonino Gustafson Work Phone: [facility] [employer] 250 DO Work Phone: 03-18-2022 11:23-0500 Body surface area Derived from formula 1.69 m2 Antonino Gustafson Work Phone: [facility] 250 DO Work Phone: 03-18-2022 11:23-0500 Body weight 63.96 kg Antonino Gustafson Work Phone: [facility] [employer] 250 DO Work Phone: 03-18-2022 11:23-0500 Diastolic blood pressure 60 mm[Hg] Antonino Gustafson Work Phone: [facility] 250 DO Work Phone: 03-18-2022 11:23-0500 Heart rate 60 /min Antonino Gustafson Work Phone: [facility] 250 DO Work Phone: 03-18-2022 11:23-0500 Systolic blood pressure 142 mm[Hg] Antonino Gustafson Work Phone: [facility] 250 DO Work Phone: 01-15-2022 11:16-0400 Diastolic blood pressure 80 mm[Hg] Antonino Gustafson Work Phone: [facility] 250 DO Work Phone: 01-15-2022 11:16-0400 Systolic blood pressure 192 mm[Hg] Antonino Gustafson Work Phone: [facility] 250 DO Work Phone: 01-15-2022 10:55-0400 Diastolic blood pressure 80 mm[Hg] Antonino Gustafson Work Phone: [facility] 250 DO Work Phone: 01-15-2022 10:55-0400 Systolic blood pressure 218 mm[Hg] Antonino Gustafson Work Phone: [facility] 250 DO Work Phone: 01-15-2022 10:48-0400 Body height 162.56 cm Antonino Gustafson Work Phone: [facility] 250 DO Work Phone: 01-15-2022 10:48-0400 Body mass index (BMI) [Ratio] 23.34 kg/m2 Antonino Gustafson Work Phone: [facility] [employer] 250 DO Work Phone: 01-15-2022 10:48-0400 Body surface area Derived from formula 1.66 m2 Antonino Gustafson Work Phone: [facility] 250 DO Work Phone: 01-15-2022 10:48-0400 Body weight 61.69 kg Antonino Gustafson Work Phone: [facility] [employer] 250 DO Work Phone: 01-15-2022 10:48-0400 Diastolic blood pressure 74 mm[Hg] Antonino Gustafson Work Phone: [facility] [employer] 250 DO Work Phone: 01-15-2022 10:48-0400 Heart rate 60 /min Antonino Gustafson Work Phone: [facility] [employer] 250 DO Work Phone: 01-15-2022 10:48-0400 Systolic blood pressure 220 mm[Hg] Antonino Gustafson Work Phone: [facility] [employer] 250 DO Work Phone: 12-08-2021 11:40-0400 Body height 162.56 cm Liliya Bhavna Other [employer] Other 12-08-2021 11:40-0400 Body mass index (BMI) [Ratio] 23.34 kg/m2 Liliya Bhavna Other [employer] Other 12-08-2021 11:40-0400 Body temperature 97.2 [degF] Liliya Bhavna Other [employer] Other 12-08-2021 11:40-0400 Body weight 61.69 kg Liliya Bhavna Other [employer] Other 12-08-2021 11:40-0400 Diastolic blood pressure 72 mm[Hg] Liliya Bhavna Other [employer] Other 12-08-2021 11:40-0400 Respiratory rate 18 /min Liliya Bhavna Other [employer] Other 12-08-2021 11:40-0400 SaO2% (BldA) [Mass fraction] 99 % Liliya Bhavna Other [employer] Other 12-08-2021 11:40-0400 Systolic blood pressure 130 mm[Hg] Liliya Bhavna Other [employer] Other 10-31-2021 03:30-0400 Diastolic blood pressure 85 mm[Hg] MD Antonino Gustafson Work Phone: [facility] 10-31-2021 03:30-0400 Heart rate 55 /min MD Antonino Gustafson Work Phone: [facility] 10-31-2021 03:30-0400 Respiratory rate 18 /min MD Antonino Gustafson Work Phone: [facility] 10-31-2021 03:30-0400 SaO2% (BldA) [Mass fraction] 96 % MD Antonino Gustafson Work Phone: [facility] 10-31-2021 03:30-0400 Systolic blood pressure 193 mm[Hg] MD Antonino Gustafson Work Phone: [facility] 10-31-2021 00:19-0400 Body height 162.56 cm MD Antonino Gustafson Work Phone: [facility] 10-31-2021 00:19-0400 Body temperature 98 [degF] MD Antonino Gustafson Work Phone: [facility] 10-31-2021 00:19-0400 Body weight 58.96 kg MD Antonino Gustafson Work Phone: [facility] 05-29-2021 11:00-0500 Body height Liliya Bhavna Other [employer] Other 05-29-2021 11:00-0500 Body mass index (BMI) [Ratio] 24.03 kg/m2 Liliya Bhavna Other [employer] Other 05-29-2021 11:00-0500 Body weight 63.5 kg Liliya Bhavna Other [employer] Other 05-29-2021 11:00-0500 Diastolic blood pressure 76 mm[Hg] Liliya Bhavna Other [employer] Other 05-29-2021 11:00-0500 Respiratory rate 18 /min Liliya Bhavna Other [employer] Other 05-29-2021 11:00-0500 SaO2% (BldA) [Mass fraction] 99 % Liliya Bhavna Other [employer] Other 05-29-2021 11:00-0500 Systolic blood pressure 134 mm[Hg] Liliya Bhavna Other [employer] Other 01-09-2021 11:30-0400 Diastolic blood pressure 70 mm[Hg] Antonino Gustafson Work Phone: [employer] 250 DO Work Phone: 01-09-2021 11:30-0400 Systolic blood pressure 144 mm[Hg] Antonino Gustafson Work Phone: [facility] 250 DO Work Phone: 01-09-2021 10:54-0400 Body height 162.56 cm Antonino Gustafson Work Phone: [facility] 250 DO Work Phone: 01-09-2021 10:54-0400 Body mass index (BMI) [Ratio] 24.2 kg/m2 Antonino Gustafson Work Phone: [facility] 250 DO Work Phone: 01-09-2021 10:54-0400 Body surface area Derived from formula 1.69 m2 Antonino Gustafson Work Phone: [facility] 250 DO Work Phone: 01-09-2021 10:54-0400 Body weight 63.96 kg Antonino Gustafson Work Phone: [facility] 250 DO Work Phone: 01-09-2021 10:54-0400 Diastolic blood pressure 74 mm[Hg] Antonino Gustafson Work Phone: [facility] 250 DO Work Phone: 01-09-2021 10:54-0400 Heart rate 60 /min Antonino Gustafson Work Phone: [facility] 250 DO Work Phone: 01-09-2021 10:54-0400 Systolic blood pressure 156 mm[Hg] Antonino Gustafson Work Phone: [facility] 250 DO Work Phone: Encounters Encounter Date Encounter Type Care Provider Facility Start: 01-03-2025 End: 01-03-2025 ambulatory Antonino Gustafson MD Work Phone: [facility] Work Phone: Start: 01-03-2025 End: 01-03-2025 Patient encounter procedure Nancie [facility] Work Phone: Start: 11-21-2024 End: 11-21-2024 ambulatory [facility] Start: 11-21-2024 End: 11-21-2024 Office outpatient visit 10 minutes Michael Ramos DO Work Phone: [facility] Comment on above: Essential hypertensi on; Former smoker; BMI 22.0-22.9, adult Start: 09-27-2024 End: 09-27-2024 ambulatory [facility] Start: 09-27-2024 End: 09-27-2024 Office outpatient visit 15 minutes Michael Ramos DO Work Phone: [facility] Comment on above: ASHD (arteriosclerot ic heart disease); Paroxysmal atrial fibrillation (Multi); Renal artery stenosis; 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 Work Phone: Start: 09-25-2024 End: 09-25-2024 Patient encounter procedure Antonino Gustafson MD -[facility] Work Phone: Start: 09-20-2024 End: 09-20-2024 ambulatory Antonino Gustafson MD Work Phone: [facility] Work Phone: Start: 09-20-2024 End: 09-20-2024 Patient encounter procedure Nancie Leigh DO -[facility] Work Phone: Start: 09-04-2024 End: 09-04-2024 Bamboo flowsheet Palma Rodriguez DO Work Phone: [facility] Start: 09-04-2024 End: 09-04-2024 Bamboo flowsheet Palma D Zahler DO Work Phone: [facility] Start: 09-04-2024 End: 09-04-2024 ambulatory PALMA RODRIGUEZ Not Available Start: 08-29-2024 End: 08-29-2024 ambulatory Antonino Gustafson MD Work Phone: [facility] Work Phone: Start: 08-29-2024 End: 08-29-2024 Patient encounter procedure Antonino Gustafson MD Work Phone: [facility] Work Phone: Start: 08-16-2024 Non-patient / Non-visit Antonino Gustafson MD Work Phone: [facility] Work Phone: Start: 08-07-2024 End: 08-07-2024 ambulatory Antonino Gustafson MD Work Phone: [facility] Work Phone: Start: 08-07-2024 End: 08-07-2024 Patient encounter procedure Antonino Gustafson MD Work Phone: [facility] Work Phone: Start: 08-03-2024 Non-patient / Non-visit Antonino Gustafson MD Work Phone: [facility] Work Phone: Start: 08-02-2024 Non-patient / Non-visit Antonino Gustafson MD Work Phone: [facility] Work Phone: Start: 07-26-2024 Non-patient / Non-visit Antonino Gustafson MD Work Phone: [facility] Work Phone: Start: 07-25-2024 End: 08-02-2024 Evaluation and management of inpatient Antonino Gustafson MD Work Phone: [facility] Work Phone: Start: 07-24-2024 Non-patient / Non-visit Antonino Gustafson MD Work Phone: [facility] Work Phone: Start: 07-24-2024 Non-patient / Non-visit Antonino Gustafson MD Work Phone: [facility] Work Phone: Start: 07-23-2024 Non-patient / Non-visit Antonino Gustafson MD Work Phone: [facility] Work Phone: Start: 07-22-2024 End: 07-25-2024 Evaluation and management of inpatient Antonino Gustafson MD Work Phone: [facility] Work Phone: Start: 06-29-2024 End: 06-29-2024 Clinisync Result Encounter Amanda Asa [employer]IR [employer]ER Work Phone: [facility] Unsolicited Start: 06-29-2024 End: 06-29-2024 Clinisync Result Encounter Amanda Asa [employer] Work Phone: [facility] Unsolicited Start: 06-29-2024 Non-patient / Non-visit Antonino Gustafson MD Work Phone: [facility] Work Phone: Start: 06-26-2024 End: 06-26-2024 Telephone encounter Marina Burt HAIR [employer]ER Work Phone: [facility] Start: 05-25-2024 End: 05-25-2024 Office outpatient visit 15 minutes Michael Ramos DO Work Phone: [facility] Comment on above: Accelerated hyperten alvaro Start: 05-25-2024 End: 05-25-2024 ambulatory [facility] Start: 05-22-2024 End: 05-22-2024 ambulatory [facility] Work Phone: Start: 05-22-2024 End: 05-22-2024 Patient encounter procedure [facility] Work Phone: Start: 04-05-2024 End: 04-05-2024 [facility] Comment on above: Accelerated hyperten alvaro; Cerebrovascular accident (CVA), unspecified mechanism (Multi); 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; Paroxysmal atrial fibrillation (Multi); ASHD (arteriosclerotic heart disease); Mixed hyperlipidemia; BMI 22.0-22.9, adult; Former smoker; TATI inhibitor intolerance; Statin intolerance Start: 04-05-2024 End: 04-05-2024 ambulatory [facility] Start: 04-04-2024 End: 04-04-2024 Bamboo flowsheet Amanda Bray [employer] Work Phone: [facility] Start: 04-04-2024 End: 04-04-2024 Bamboo flowsheet Amanda Bray [employer] Work Phone: [facility] Start: 04-04-2024 End: 04-04-2024 Office outpatient visit 25 minutes Amanda Bray [employer] Work Phone: [facility] Comment on above: Ischemic stroke (CMS /HCC) (Primary Dx); Visual field defect; Hypertension, unspecified type (CMS/HCC); Encounter for medication monitoring; Paroxysmal atrial fibrillation (CMS/HCC); Altered mental status, unspecified altered mental status type Start: 04-04-2024 End: 04-04-2024 ambulatory AMANDA BRAY Not Available Start: 03-28-2024 End: 03-28-2024 Patient encounter procedure [facility] Work Phone: Start: 03-21-2024 Non-patient / Non-visit [facility] Work Phone: Start: 03-14-2024 End: 03-14-2024 Patient encounter procedure [facility] Work Phone: Start: 03-08-2024 Non-patient / Non-visit [facility] Work Phone: Start: 03-06-2024 End: 03-07-2024 ambulatory Willie Kearney Facility:[facility] Start: 03-06-2024 Emergency department patient visit Rolando Zarco Facility:[facility] Start: 03-06-2024 End: 03-07-2024 Observation Willie HornMalick [facility]ear[facility] Start: 03-06-2024 End: 03-06-2024 Bamboo flowsheet Palma Rodriguez DO Work Phone: [facility] Start: 03-06-2024 End: 03-06-2024 Bamboo flowsheet Palma Rodriguez DO Work Phone: [facility] Start: 03-06-2024 End: 03-06-2024 ambulatory PALMA RODRIGUEZ Not Available Start: 02-17-2024 End: 02-17-2024 Patient encounter procedure [facility] Work Phone: Start: 02-17-2024 End: 02-17-2024 ambulatory Antonino Gustafson [facility] Work Phone: Start: 02-07-2024 Non-patient / Non-visit [facility] Work Phone: Start: 02-05-2024 Non-patient / Non-visit [facility] Work Phone: Start: 01-25-2024 End: 01-25-2024 ambulatory [facility] Start: 01-18-2024 End: 01-18-2024 Office outpatient visit 25 minutes [facility] DO Work Phone: [facility] Comment on above: Accelerated hyperten alvaro; ASHD (arteriosclerotic heart disease); Paroxysmal atrial fibrillation (Multi); Former smoker; Body mass index (BMI) 23.0-23.9, adult Start: 01-18-2024 End: 01-18-2024 ambulatory [facility] Start: 12-22-2023 End: 12-22-2023 ambulatory [facility] Work Phone: Start: 12-22-2023 End: 12-22-2023 Patient encounter procedure [facility] José Antonio Work Phone: Start: 12-17-2023 End: 12-17-2023 ambulatory [facility] Work Phone: Start: 12-17-2023 End: 12-17-2023 Patient encounter procedure [facility] Work Phone: Start: 08-05-2023 End: 08-05-2023 ambulatory [facility] Work Phone: Start: 08-05-2023 End: 08-05-2023 Patient encounter procedure [facility] José Antonio Work Phone: Start: 07-27-2023 Non-patient / Non-visit [email or web address] Work Phone: Start: 05-18-2023 End: 05-18-2023 Office outpatient visit 25 minutes [facility] Work Phone: [facility] Comment on above: Paroxysmal atrial fi brillation (CMS/HCC); Accelerated hypertension; Mixed hyperlipidemia; Stage 3b chronic kidney disease (CMS/HCC) Start: 03-10-2023 End: 03-10-2023 Office outpatient visit 15 minutes Meera Avalos POWER SYSTEM DISPATCHER-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 Start: 02-02-2023 End: 02-02-2023 ambulatory Antonino Gustafson Other [employer] Other Start: 02-02-2023 Transitional care michaela winter srvc 14 day discharge Antonino Gustafson [facility] Start: 01-28-2023 End: 01-28-2023 ambulatory Antonino Gustafson Other [employer] Other Start: 01-28-2023 Telephone encounter Antonino Gustafson [facility] Start: 01-28-2023 End: 01-29-2023 Evaluation and management of inpatient MD Antonino Gustafson Work Phone: [facility] Work Phone: Start: 01-27-2023 Evaluation and management of inpatient MD Antonino Gustafson Work Phone: [facility] Work Phone: Start: 01-27-2023 observation encounter MD Preethi Gustafson Work Phone: [facility] Work Phone: Start: 01-04-2023 End: 01-04-2023 ambulatory Liliya Bhavna Other [employer] Other Start: 01-04-2023 Office outpatient vi sit 25 minutes Liliya Bhavna [facility] Start: 11-03-2022 End: 11-03-2022 ambulatory Antonino Gustafson Other [employer] Other Start: 11-03-2022 Office outpatient vi sit 15 minutes Antonino Gustafson [facility] Start: 10-09-2022 Rx Renewal Antonino Gustafson Work Phone: [facility] 250 DO Work Phone: Start: 06-11-2022 End: 06-11-2022 ambulatory Liliya Bhavna Other [employer] Other Start: 06-11-2022 Office outpatient vi sit 15 minutes Liliya Bhavna [facility] José Antonio Start: 06-03-2022 End: 06-04-[address] ANTONINO GUSTAFSON Facility:H1 Start: 03-18-2022 Office outpatient vi sit 10 minutes Antonino Gustafson Work Phone: [facility] [employer] 250 DO Work Phone: Start: 03-18-[address] Antonino Gustafson Facility: Start: 02-09-2022 Adult health examination Preethi Gustafson Other [facility] [employer] Other Start: 02-05-2022 End: 02-06-[address] MICHAEL RAMOS Facility:H1 Start: 01-15-[address] Michael Ramos Facility: Start: 01-15-2022 Office outpatient vi sit 25 minutes Antonino Gustafson Work Phone: [facility] [employer] 250 DO Work Phone: Start: 12-17-2021 Rx Renewal Antonino Gustafson Work Phone: [facility] [employer] 250 DO Work Phone: Start: 12-08-2021 End: 12-08-2021 ambulatory Liliya Bhavna Other [employer] Other Start: 12-08-2021 Office outpatient vi sit 25 minutes Liliya Bhavna [facility] José Antonio Start: 12-04-2021 End: 12-05-2021 ambulatory LILIYA BHAVNA Facility:H1 Start: 10-31-2021 End: 10-31-2021 Emergency department patient visit MD Antonino Gustafson Work Phone: [facility] Start: 09-16-2021 Rx Renewal Antonino Gustafson Work Phone: [facility] 250 DO Work Phone: Start: 05-29-2021 End: 05-29-2021 ambulatory Liliya Bhavna Other [facility] [employer] Other Start: 05-29-2021 Office outpatient vi sit 15 minutes Liliya Hbavna [facility] José Antonio Start: 01-22-2021 Rx Renewal Antonino Gustafson Work Phone: [facility] [address] [place] Work Phone: Start: 01-09-2021 Office outpatient vi sit 15 minutes Antonino Gustafson Work Phone: [facility] 250 DO Work Phone: Start: 01-09-2021 Patient encounter procedure Antonino Gustafson Work Phone: [facility] 250 DO Work Phone: Procedures Date Procedure [...] 06-29-2024 ALL LIPID PROFILE (FASTING) Amanda Bray HAIR BALER Work Phone: Start: 06-29-2024 [facility] LIVER PANEL Amanda Bray HAIR BALER Work Phone: Start: 03-06-2024 Visual field xm [...] procedure 04/03/2025 2:00 PM EST Office Visit [address] [place] [address] Meera Avalos, POWER SYSTEM DISPATCHER-MICROSOFT ACCESS DEVELOPER [address] [place] [address] [facility] Start: 11-27-2024 Influenza vaccination Influenza Vacc ine (#1) [facility] Start: 11-21-2024 End: 11-21-2024 Patient encounter procedure 11/21/2024 10:30 AM EDT Office Visit [address] [place] [address] Michael Ramos, DO [address] [facility] [address] [place] [address] [facility] Start: 11-02-2024 DTaP/Tdap/Td Vaccine s (2 - Tdap) DTaP/Tdap/Td Vaccines (2 - Tdap) [facility] Start: 09-27-2024 End: 09-27-2024 Patient encounter procedure 09/27/2024 10:20 AM EDT Office Visit [address] [place] [address] Michael Ramos, DO [address] [facility] [address] [place] [address] [facility] Start: 09-20-2024 End: 09-20-2024 Patient encounter procedure 09/20/2024 10:20 AM EDT Office Visit [address] [place] [address] Michael Ramos, DO [address] [place] [address] [facility] Start: 09-04-2024 End: 09-04-2024 Patient encounter procedure 09/04/2024 1:45 PM EDT Office Visit [facility] [address] [place] [address] Palma Rodriguez DO [address] [place] [address] [facility] Start: 08-02-2024 [facility] Start: 07-25-2024 Hospital admission [facility] Start: 07-25-2024 Referral to clinical rn orthopaedics [facility] Start: 07-25-2024 [facility] Start: 07-25-2024 [facility] Start: 07-24-2024 Referral to palliati ve care physician [facility] Start: 07-24-2024 Referral to rehabilitation physician [facility] Start: 07-23-2024 Bacteria identified in Blood by Culture Blood Culture [facility] Start: 07-23-2024 End: 07-23-2024 [facility] Start: 07-23-2024 End: 07-23-2024 [facility] Start: 07-23-2024 Referral to neurologist [facility] Start: 07-23-2024 MRI of head MR head/brain wo [facility] Start: 07-22-2024 Hospital admission [facility] Start: 07-22-2024 Urine culture [facility] Start: 07-22-2024 CT angiography of head [facility] Start: 07-22-2024 CT angiography of ne ck vessels [facility] Start: 07-22-2024 CT Head WO contrast Fir [facility] Start: 07-22-2024 CT of head without contrast CT head stroke alert wo con [facility] Start: 07-22-2024 Telemedicine consult ation with patient [facility] Start: 07-22-2024 Bacteria identified in Urine by Culture Urine Culture [facility] Start: 06-27-2024 End: 06-27-2024 Patient encounter procedure 06/27/2024 2:20 PM EDT Office Visit [facility] [address] [place] [address] Amanda Bray NP [address] [facility] [place] [address] [facility] Start: 04-05-2024 End: 04-05-2024 Patient encounter procedure 04/05/2024 10:30 AM EST Office Visit [facility] [address] [facility] [address] [place] [address] Michael Ramos DO [address] [place] [address] [facility] Start: 04-04-2024 End: 04-04-2025 Hepatic function 2000 panel - Serum or Plasma Hepatic function panel Lab Routine Encounter for medication monitoring Expected: 04/04/2024 (Approximate), Expires: 04/04/2025 [facility] Comment on above: Expected: 04/04/2024 (Approximate), Expires: 04/04/2025 Start: 04-04-2024 End: 04-04-2025 Lipid 1996 panel - Serum or Plasma Lipid panel Lab Routine Encounter for medication monitoring Expected: 04/04/2024 (Approximate), Expires: 04/04/2025 [facility] Work Phone: Comment on above: Expected: 04/04/2024 (Approximate), Expires: 04/04/2025 Start: 04-04-2024 End: 04-04-2024 Patient encounter procedure 04/04/2024 1:40 PM EST Office Visit [facility] [address] [address] [place] [phone] Amanda Bray NP [address] [address] [place] [address] Arrived [facility] Comment on above: Arrived Start: 03-06-2024 End: 03-06-2024 Patient encounter procedure 03/06/2024 1:00 PM EST Office Visit [facility] [address] [place] [phone] Zahler, Palma D, DO [address] [place] [address] Arrived [facility] Comment on above: Arrived Start: 01-24-2024 End: 01-24-2024 Professional / ancillary services management 01/24/2024 10:00 AM EDT Ancillary Procedure [facility] [address] [address] [place] [address] [facility] Start: 01-18-2024 End: 01-17-2025 Holter monitor study Holter Or Event Clinic Supervisor Cardiac Services Routine Paroxysmal atrial fibrillation (Multi) Expected: 01/18/2024 (Approximate), Expires: 01/17/2025 [facility] Service Area Work Phone: Comment on above: Expected: 01/18/2024 (Approximate), Expires: 01/17/2025 Start: 01-18-2024 End: 01-18-2024 Patient encounter procedure 01/18/2024 10:40 AM EDT Office Visit [address] [place] [address] Michael Ramos DO [address] [facility] [address] [place] [address] [facility] Start: 11-28-2023 COVID-19 Vaccine ( season) COVID-19 Vaccine ( season) [facility] Start: 11-28-2023 Influenza vaccination Influenza Vacc ine (#1) [facility] Start: 11-17-2023 End: 11-17-2023 Patient encounter procedure 11/17/2023 10:00 AM EDT Office Visit [facility] [address] [address] [place] [address] Meera Avalos, POWER SYSTEM DISPATCHER-MICROSOFT ACCESS DEVELOPER [address] [place] [address] [facility] Start: 05-18-2023 End: 05-18-2023 Patient encounter procedure 05/18/2023 11:00 AM EST Office Visit [facility] [address] [place] [address] Michael Ramos, DO [address] [place] [address] [facility] Start: 04-06-2023 End: 04-06-2023 Patient encounter procedure 04/06/2023 10:00 AM EST Procedure Visit [facility] [address] [place] [id number] [facility] Start: 03-10-2023 End: 03-10-2024 Holter monitor study Holter Or Event Clinic Supervisor Cardiac Services Routine Paroxysmal atrial fibrillation (CMS/HCC) Expected: 03/10/2023 (Approximate), Expires: 03/10/2024 [facility] Service Area Work Phone: Comment on above: Expected: 03/10/2023 (Approximate), Expires: 03/10/2024 Start: 01-29-2023 [facility] Start: 01-27-2023 Hospital admission [facility] Start: 01-27-2023 Referral to secretary administrative assistant [facility] Start: 01-14-2023 FUV, Provider: Michael Ramos, Status: Pen, Time: 10:00 AM FUV, Provider: Michael Ramos, Status: Pen, Time: 10:00 AM [facility] 250 DO Work Phone: Start: 11-27-2022 COVID-19 Vaccine ( season) COVID-19 Vaccine ( season) [facility] Start: 11-27-2022 Influenza vaccination Influenza Vacc ine (#1) [facility] Start: 03-18-2022 FUV, Provider: Meera Cha, Status: Pen, Time: 11:30 AM FUV, Provider: Meera Cha, Status: Pen, Time: 11:30 AM [facility] 250 DO Work Phone: Start: 01-15-2022 FUV, Provider: Michael Ramos, Status: Pen, Time: 10:00 AM FUV, Provider: Michael Ramos, Status: Pen, Time: 10:00 AM [facility] 250 DO Work Phone: Start: 09-18-2021 Medicare Annual Well ness Visit Medicare Annual Wellness Visit (AWV) [facility] Start: 05-08-2021 COVID-19 Vaccine (4 - Moderna series) COVID-19 Vaccine (4 - Moderna series) [facility] Start: 11-18-2014 RSV High Risk: (Elde rly (60+) or Population) (1 - 1-dose 75+ series) RSV High Risk: (Elderly (60+) or Population) (1 - 1-dose 75+ series) [facility] Start: 11-18-2004 Screening for osteoporosis Bone Density Scan [facility] Start: 11-18-1989 Zoster Vaccines (1 of 2) Zoste r Vaccines (1 of 2) [facility] Start: 11-18-1958 Pneumococcal vaccination Pneum ococcal Vaccine (1 of 2 - PCV) [facility] Start: 11-18-1958 Urine screening for protein CKD: Urine Protein Screening [facility] Start: 11-18-1957 Diabetes mellitus screening Diabetes Screening [facility] Start: 11-18-1945 Pneumococcal Vaccine : 65+ Years (1 - PCV) Pneumococcal Vaccine: 65+ Years (1 - PCV) [facility] Start: 11-18-1945 Pneumococcal Vaccine : 65+ Years (1 of 2 - PCV) Pneumococcal Vaccine: 65+ Years (1 of 2 - PCV) [facility] Start: 1939 Annual wellness visit Medicare Initial Physical (IPPE) [facility] Start: 1939 Lipid panel Lipid Panel [facility] Start: 1939 Medicare Annual Well ness Visit Medicare Annual Wellness Visit (AWV) [facility] Start: 1939 Screening for osteoporosis Bone Density Scan [facility] Start: 1939 Thyroid stimulating hormone measurement TSH Level [facility] Albumin/Globulin ratio [facility] Anion gap measurement [facility] Basophils [#/volume] in Blood by Automated count [facility] Basophils/100 leukoc ytes in Blood by Automated count [facility] Eosinophils/100 leukocytes in Blood by Automated count [facility] Erythrocyte distribu tion width [Ratio] by Automated count [facility] Erythrocytes [#/volu me] in Blood [facility] Globulin [Mass/volum e] in Serum [facility] Hematocrit [Volume Fraction] of Blood [facility] Hemoglobin [Mass/vol ume] in Blood [facility] Leukocytes [#/volume ] corrected for nucleated erythrocytes in Blood by Automated coun [facility] Leukocytes [#/volume ] in Blood [facility] Lymphocytes [#/volum e] in Blood by Automated count [facility] Lymphocytes/100 leukocytes in Blood by Automated count [facility] MCH [Entitic mass] b y Automated count [facility] MCHC [Mass/volume] b y Automated count [facility] MCV [Entitic volume] by Automated count [facility] Monocytes [#/volume] in Blood by Automated count [facility] Monocytes/100 leukoc ytes in Blood by Automated count [facility] Neutrophils [#/volum e] in Blood by Automated count [facility] Neutrophils/100 leukocytes in Blood by Automated count [facility] Nucleated erythrocyt es [Presence] in Blood by Automated count [facility] Patient Education [facility] Work Phone: Patient referral [facility] Work Phone: Platelet mean volume [Entitic volume] in Blood by Automated count [facility] Platelets [#/volume] in Blood [facility] Renal function 1999 panel - Serum or Plasma [facility] Renal function 1999 panel - Serum or Plasma [facility] Immunizations Immunization Date Immunization Notes Care Provider Fa [facility] 03-13-2021 Moderna COVID-19 Vac cine 100 MCG/0.5ML Intramuscular Suspension Antonino Gustafson Work Phone: [facility] 250 DO Work Phone: 06-19-2020 Moderna COVID-19 Vac cine 100 MCG/0.5ML Intramuscular Suspension Antonino Rand Sj Work Phone: [facility] 250 DO Work Phone: 05-23-2020 Moderna COVID-19 Vac cine 100 MCG/0.5ML Intramuscular Suspension Antonino Giorgi Gustafson Work Phone: [place] [address] DO Work Phone: 11-02-2014 diphtheria, tetanus toxoids and acellular pertussis vaccine, 5 pertussis antigens Antonino Gustafson Work Phone: [place] [address] DO Work Phone: Payers Date Payer Category Payer Self-pay [id number] 2015 Medicare supplementa l policy (as second payer) [facility] MEDIC[facility] SUPPLE[facility] [id number] 2015 Private Health Insurance [id number] 2004 Medicare [id number] 1959 Medicare [id number] [id number] 1959 Private Health Insurance [id number] 2.16.840.1.009471.19 1939 Unknown [id number] 2.16.840.1.012718.3.579 .2.356 1939 Unknown [id number] 2.16.840.1.526506.3.579 .2.356 1939 Unknown [id number] 2.16.840.1.065102.3.579 .2.593 1939 Unknown [id number] 2.16.840.1.071019.3.579 .2.593 1939 Unknown [id number] 2.16.840.1.919701.3.579 .2.593 1939 Unknown [id number] 2.16.840.1.714928.3.579 .2.593 1939 Unknown [id number] 2.16840.1.794602.3.579 .2.727 1939 Unknown [id number] 2.16840.1.866194.3.579 .2.727 1939 Unknown [id number] 2.16840.1.533438.3.579 .2.727 1939 Unknown [id number] 2.16840.1.278216.3.579 .2.727 1939 Unknown [id number] 2.16840.1.843221.3.579 .2.727 1939 Unknown [id number] 2.16.840.1.547788.3.579 .2.727 1939 Unknown [id number] 2.16.840.1.913609.3.579 .2.727 1939 Unknown [id number] 2.16.840.1.475751.3.579 .2.727 1939 Unknown [id number] 2.16840.1.354302.3.579 .2.1259 1939 Unknown [id number] 2.16.840.1.712825.3.579 .2.1259 1939 Unknown [id number] 2.16.840.1.813449.3.579 .2.1259 1939 Unknown [id number] 2.16.840.1.968101.3.579 .2.1244 1939 Unknown [id number] 2.16.840.1.995492.3.579 .2.1244 1939 Unknown [id number] 2.16.840.1.132076.3.579 .2.1244 1939 Unknown [id number] 2.16.840.1.091029.3.579 .2.1244 1939 Unknown [id number] 2.16.840.1.936445.3.579 .2.1244 1939 Unknown [id number] 2.16.840.1.620607.3.579 .2.1244 Unknown Unknown [id number] 2.16.840.1.330468.3.579 .2.531 Unknown [id number] 2.16.840.1.165420.3.579 .2.531 Unknown [id number] 2.16.840.1.941610.3.579 .2.531 Social History Date Type Detail Facility Start: 03-10-2023 End: 09-27-2024 No alcohol use No alcohol use [place] [address] DO Work Phone: Comment on above: Coffee 2 cups daily; quit 1965; Start: 03-10-2023 End: 09-27-2024 Sex Assigned At [facility] Start: 10-31-2021 Tobacco smoking status OKIS Never smoked tobacco (finding) [facility] Start: 1940 Sex Assigned At Female F [facility] Start: 01-27-2023 End: 08-24-2024 Tobacco smoking status OKIS Ex-smoker (finding) [facility] End: 03-29-1969 History of tobacco use Current smoker [facility] Work Phone: End: 03-29-1969 History of tobacco use Cigarette Smoker [facility] Work Phone: Start: 03-10-2023 End: 01-18-2024 Tobacco use and exposure Smokeless tobacco non-user [facility] Work Phone: Start: 03-10-2023 End: 09-27-2024 Alcohol intake Lifetime non-drinker (finding) [facility] Work Phone: Start: 1940 Sex Assigned At Not on file U [facility] Work Phone: Start: 02-28-2023 End: 05-25-2024 Exposure to SARS-CoV-2 (event) Not sure [facility] Start: 02-17-2024 End: 08-29-2024 Sex Female (finding) [facility] Start: 07-24-2024 Tobacco smoking status NHIS Tobacco smoking consumption unknown [facility] Tobacco smoking status No Smoking Status Entered [facility] Start: 04-04-2024 Tobacco Comment Quit smoking > 50 years ago [facility] Start: 08-02-2024 SDOH Follow up SDOH Follow up [facility] Work Phone: Start: 02-21-2022 Sex Female [facility] Goals Date Patient Goal Desired Activity /State Functional Status Date Assessment Result Facility 08-02-2024 Functional status Patient at Baseline [facility] Work Phone: 07-25-2024 Functional status Disability Sta tus Patient Not at Baseline [facility] Work Phone: 07-25-2024 Functional status Patient Not at Baseline [facility] Work Phone: 07-23-2024 Functional status Patient Not at Baseline [facility] Work Phone: 03-06-2024 Functional Status N/A [facility] 03-06-2024 Functional Status [facility] 01-29-2023 Functional status Patient at Baseline [facility] Work Phone: 01-27-2023 Functional status Patient at Baseline [facility] Work Phone: Mental Status Date Assessment Result Facility 08-02-2024 Cognitive function Cognitive Sta tus Patient at Baseline [facility] Work Phone: 07-23-2024 Cognitive function Cognitive Sta tus Patient Not at Baseline [facility] Work Phone: 01-29-2023 Cognitive function Cognitive Sta tus Patient at Baseline [facility] Work Phone: 01-27-2023 Cognitive function Cognitive Sta tus Patient at Baseline [facility] Work Phone: Clinical Notes 05-29-2021 to 11-21-2024 [...] ) Objective Physical Exam Allergies Clonidine, Methylprednisolone, Vpkgnld-apd-syq reductase inhibitors, Tati inhibitors, Amlodipine, Hydralazine, Lisinopril, [...] discussion and plan. documented in this encounter [facility] Work Phone: 11-21-2024 Instructions Iman Delcid CMA [...] of your visit. documented in this encounter [facility] Work Phone: 09-27-2024 History of Present illness [...] normal. Judgment: Judgment normal. Allergies Clonidine, Methylprednisolone, Pomncpc-bki-ziq reductase inhibitors, Tati inhibitors, Amlodipine, Hydralazine, Lisinopril, [...] fibrillation (Multi) 3. 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 Essential [...] discussion and plan. documented in this encounter [facility] Work Phone: 09-27-2024 Instructions Daniel Castellano MA [...] of your visit. documented in this encounter [facility] Work Phone: 09-04-2024 Note Right Eye Reliability was good. Progression has improved. Foveal threshold was normal. Left Eye Reliability was borderline. Progression has worsened. Foveal threshold was normal. Notes Left Homonymous Hemianopsia [facility] 09-04-2024 History of Present illness Narrative Images from the original note were not included. Assessment/Plan Diagnoses and all orders for this visit: Homonymous hemianopia, left - Stable. Was worked up in at [facility] 02/2024 for CVA rule out (r/o). Right [...] laser capsulotomy, they are to notify their nutrition teacher promptly if they have a significant change in symptoms, such as flashes of light (photopsia), an increase in floaters, loss of visual field or decrease in visual acuity. Dry eyes - Dry Eyes [facility] -- Environmental changes to minimize dryness and exposure and the use of artificial tears were recommended. documented in this encounter [facility] 07-31-2024 Progress note Note Date/Time July 31, 2024 1:55pm [facility] [address] [place] [address] Physiatry(Rehab) Progress Note Signed Patient: Janelle Brut MR#: [id number] : 1940 Acct:[id number] Age/Sex: 83 / F Adm Date: 5 Loc: Room: 8O6868-9 Type: ADM IN Attending Dr: Dev Jacobsen [...] % (Auto) 53.1 Lymph % (Auto) 28.6 [place] % (Auto) 13.4 Eos % (Auto) 4.0 Baso % (Auto) 0.9 Nucleat RBC Rel Count 0.1 Neut # (Auto) 3.3 Lymph # (Auto) 1.8 [place] # (Auto) 0.8 Eos # (Auto) 0.3 [...] Allergy (Unknown, Verified 07/22/24 21:12) Unknown Reaction Lphfssz-HKB-VqV Reductase Inhibitor (Ffyryin-Fpm-Nhy Reductase Inhibitor) Allergy (Unknown, Verified 07/22/24 21:12) [...] mg 07/25/24 17:25 Bisacodyl [address] 07/25/25 17:24 DAILY PRN Constipation Diclofenac Sodium 2 gm 07/27/24 05:27 Diclofenac Sodium 1% Gel 100 Gm Tube TOPICAL 07/27/25 08:59 TID PRN Pain Docusate Sodium 100 mg 07/25/24 17:25 Docusate 100 Mg Capsule PO 07/25/25 17:24 BID PRN Constipation Docusate Sodium 283 mg 07/25/24 17:25 Docusate Enema 283 Mg/[address] 07/25/25 17:24 DAILY PRN Constipation Fenofibrate 48 [...] and proper breathing techniques during functional tasks. MANGLE FEEDER to evaluate and treat patient?s cognition, language [...] equipment to enhance the patient's a functional bahai Encourage deep breathing exercises and incentive spirometry [...] equipment to enhance the patient's a functional bahai Ensure adequate nutrition and hydration Sleep: No issues Pain: Reports no major discomfort. Continue as needed Tylenol. Discharge planning: Hopefully home in 7 to 10 days. I spent 26 minutes for services, including fwzr-hi-yqqy encounter with the patient, discussion of the case, plan of care, and exam; and zbbjyxs-en-wqzr activities, such as reviewing pertinent networks software consultant documentation, recent therapynotes, laboratory and radiology studies, and discussion of case with care team including physician, nursing, case consultant, and therapists. More than 50 % of time was spent on patient/family counseling or coordination ofcare. Documented By: Dev Jacobsen MD 1350 Signed By: <Electronically signed by Dev Jacobsen MD> 07/31/24 1352 [facility] Work Phone: 1(561) 953-420305-05-2025 [place] [address] Physiatry(Rehab) Progress Note Signed Patient: Janelle Burt MR#: [id number] : 1940 Acct:[id number] Age/Sex: 83 / F Adm Date: 5 Loc: Room: [address] [place] [address] Type: ADM IN Attending Dr: Dev Jacobsen [...] % (Auto) 53.1 Lymph % (Auto) 28.6 [place] % (Auto) 13.4 Eos % (Auto) 4.0 Baso % (Auto) 0.9 Nucleat RBC Rel Count 0.1 Neut # (Auto) 3.3 Lymph # (Auto) 1.8 [place] # (Auto) 0.8 Eos # (Auto) 0.3 [...] Allergy (Unknown, Verified 07/22/24 21:12) Unknown Reaction Tovkyow-BFQ-NrV Reductase Inhibitor (Jjhluiv-Yus-Khx Reductase Inhibitor) Allergy (Unknown, Verified 07/22/24 21:12) [...] mg 07/25/24 17:25 Bisacodyl [address] 07/25/25 17:24 DAILY PRN Constipation Diclofenac Sodium 2 gm 07/27/24 05:27 Diclofenac Sodium 1% Gel 100 Gm Tube TOPICAL 07/27/25 08:59 TID PRN Pain Docusate Sodium 100 mg 07/25/24 17:25 Docusate 100 Mg Capsule PO 07/25/25 17:24 BID PRN Constipation Docusate Sodium 283 mg 07/25/24 17:25 Docusate Enema 283 Mg/[address] 07/25/25 17:24 DAILY PRN Constipation Fenofibrate 48 [...] and proper breathing techniques during functional tasks. MANGLE FEEDER to evaluate and treat patient?s cognition, language [...] equipment to enhance the patient's a functional bahai Encourage deep breathing exercises and incentive spirometry [...] equipment to enhance the patient's a functional bahai Ensure adequate nutrition and hydration Sleep: No issues Pain: Reports no major discomfort. Continue as needed Tylenol. Discharge planning: Hopefully home in 7 to 10 days. I spent 26 minutes for services, including ipda-bi-gwyi encounter with the patient, discussion of the case, plan of care, and exam; and fkwjskt-pu-eves activities, such as reviewing pertinent networks software consultant documentation, recent therapynotes, laboratory and radiology studies, and discussion of case with care team including physician, nursing, case consultant, and therapists. More than 50 % of time was spent on patient/family counseling or coordination ofcare. Documented By: Dev Jacobsen MD 1355 Signed By: 07/31/24 8424 [facility]05-03-2025 Progress note Author Jhon Abreu [facility] Note Date/Time July 28, 2024 11:45p m [facility] [address] [place] [address] Physiatry(Rehab) Progress Note Signed Patient: Janelle Burt MR#: [id number] : 1940 Acct:[id number] Age/Sex: 83 / F Adm Date: 5 Loc: Room: [id number] Type: ADM IN Attending Dr: Dev Jacobsen [...] Allergy (Unknown, Verified 07/22/24 21:12) Unknown Reaction Rrcxecc-BKP-EoA Reductase Inhibitor (Xmozmpg-Wvx-Ugj Reductase Inhibitor) Allergy (Unknown, Verified 07/22/24 21:12) [...] mg 07/25/24 17:25 Bisacodyl [address] 07/25/25 17:24 DAILY PRN Constipation Diclofenac Sodium 2 gm 07/27/24 05:27 Diclofenac Sodium 1% Gel 100 Gm Tube TOPICAL 07/27/25 08:59 TID PRN Pain Docusate Sodium 100 mg 07/25/24 17:25 Docusate 100 Mg Capsule PO 07/25/25 17:24 BID PRN Constipation Docusate Sodium 283 mg 07/25/24 17:25 Docusate Enema 283 Mg/[address] 07/25/25 17:24 DAILY PRN Constipation Fenofibrate 48 [...] Tablet PO 07/26/25 06:29 Not Given DAILY.0630 [facility] Metoprolol Tartrate 25 mg 07/25/24 21:00 07/28/24 [...] and proper breathing techniques during functional tasks. MANGLE FEEDER to evaluate and treat patient?s cognition, language [...] equipment to enhance the patient's a functional bahai Encourage deep breathing exercises and incentive spirometry [...] equipment to enhance the patient's a functional bahai Ensure adequate nutrition and hydration Sleep: No issues Pain: Reports no major discomfort. Continue as needed Tylenol. Discharge planning: Hopefully home in 7 to 10 days. I spent 26 minutes for services, including kdcr-dt-tfok encounter with the patient, discussion of the case, plan of care, and exam; and ihtuwtu-qq-ojzm activities, such as reviewing pertinent networks software consultant documentation, recent therapynotes, laboratory and radiology studies, and discussion of case with care team including physician, nursing, case consultant, and therapists. More than 50 % of time was spent on patient/family counseling or coordination ofcare. Documented By: Jhon Abreu MD 07/28/242342 Signed By: <Electronically signed by Jhon Abreu MD> 07/28/248 [facility] Work Phone: 1(561) 905-558005-02-2025 Consult note Author Luz Marina Gonzalez [facility] Note Date/Time July 28, 2024 9:51pm [facility] [address] [place] [address] Hospitalist Consult Note Signed Patient: Janelle Burt MR#: [id number] : 1940 Acct:[id number] Age/Sex: 83 / F Adm Date: 5 Loc: Room: [address] [place] [address] Type: ADM IN Attending Dr: Dev Jacobsen [...] negative unless noted in the HPI below [facility] Medical History Ischemic cerebral vascular accident [...] stage 3 unspecified Cervical cancer 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 Bronchitis, not specified as acute or [...] Allergy (Unknown, Verified 07/22/24 21:12) Unknown Reaction Eidixww-EZJ-RqF Reductase Inhibitor (Volmhwa-Nur-Nqu Reductase Inhibitor) Allergy (Unknown, Verified 07/22/24 21:12) [...] mg 07/25/24 17:25 Bisacodyl [address] 07/25/25 17:24 DAILY PRN Constipation Docusate Sodium 100 mg 07/25/24 17:25 Docusate 100 Mg Capsule PO 07/25/25 17:24 BID PRN Constipation Docusate Sodium 283 mg 07/25/24 17:25 Docusate Enema 283 Mg/[address] 07/25/25 17:24 DAILY PRN Constipation Fenofibrate 48 [...] % (Auto) 57.6, Lymph % (Auto) 27.9, [place] % (Auto) 11.3, Eos % (Auto) 2.3, Baso % (Auto) 0.9, Nucleat RBC Rel Count 0.1, Neut # (Auto) 3.9, Lymph # (Auto) 1.9, [place] # (Auto) 0.8, Eos # (Auto) 0.2, [...] Documented By: Luz Marina Gonzalez APRN 07/26/24 1620 Signed By: <Electronically signed by AIMEE Gonzalez> 07/26/24 1654 <Electronically signed by Jon Felder MD> 07/28/24 2153 [facility] Work Phone: 1(451) 545-353805-02-2025 [place] [address] Physiatry(Rehab) Progress Note Signed Patient: Janelle Burt MR#: [id number] : 1940 Acct:[id number] Age/Sex: 83 / F Adm Date: 5 Loc: Room: [address] [place] [address] Type: ADM IN Attending Dr: Dev Jacobsen [...] Allergy (Unknown, Verified 07/22/24 21:12) Unknown Reaction Ttaouii-BQG-GcR Reductase Inhibitor (Kpehvsj-Xhc-Ydb Reductase Inhibitor) Allergy (Unknown, Verified 07/22/24 21:12) [...] mg 07/25/24 17:25 Bisacodyl [address] 07/25/25 17:24 DAILY PRN Constipation Diclofenac Sodium 2 gm 07/27/24 05:27 Diclofenac Sodium 1% Gel 100 Gm Tube TOPICAL 07/27/25 08:59 TID PRN Pain Docusate Sodium 100 mg 07/25/24 17:25 Docusate 100 Mg Capsule PO 07/25/25 17:24 BID PRN Constipation Docusate Sodium 283 mg 07/25/24 17:25 Docusate Enema 283 Mg/[address] 07/25/25 17:24 DAILY PRN Constipation Fenofibrate 48 [...] Tablet PO 07/26/25 06:29 Not Given DAILY.0630 [facility] Metoprolol Tartrate 25 mg 07/25/24 21:00 07/28/24 [...] and proper breathing techniques during functional tasks. MANGLE FEEDER to evaluate and treat patient?s cognition, language [...] equipment to enhance the patient's a functional bahai Encourage deep breathing exercises and incentive spirometry [...] equipment to enhance the patient's a functional bahai Ensure adequate nutrition and hydration Sleep: No issues Pain: Reports no major discomfort. Continue as needed Tylenol. Discharge planning: Hopefully home in 7 to 10 days. I spent 26 minutes for services, including euvc-dk-krrx encounter with the patient, discussion of the case, plan of care, and exam; and qbyryib-qi-ovro activities, such as reviewing pertinent networks software consultant documentation, recent therapynotes, laboratory and radiology studies, and discussion of case with care team including physician, nursing, case consultant, and therapists. More than 50 % of time was spent on patient/family counseling or coordination ofcare. Documented By: Jhon Abreu MD 07/28/242342 Signed By: 07/28/24 2345 [facility]05-02-2025 [place] [address] Hospitalist Consult Note Signed Patient: Janelle Burt MR#: [id number] : 1940 Acct:[id number] Age/Sex: 83 / F Adm Date: 5 Loc: Room: [address] [place] [address] Type: ADM IN Attending Dr: Dev Jacobsen [...] negative unless noted in the HPI below [facility] Medical History Ischemic cerebral vascular accident [...] stage 3 unspecified Cervical cancer 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 Bronchitis, not specified as acute or [...] Allergy (Unknown, Verified 07/22/24 21:12) Unknown Reaction Jtwijeo-CDL-HdT Reductase Inhibitor (Uzghcpr-Rfs-Kzq Reductase Inhibitor) Allergy (Unknown, Verified 07/22/24 21:12) [...] mg 07/25/24 17:25 Bisacodyl [address] 07/25/25 17:24 DAILY PRN Constipation Docusate Sodium 100 mg 07/25/24 17:25 Docusate 100 Mg Capsule PO 07/25/25 17:24 BID PRN Constipation Docusate Sodium 283 mg 07/25/24 17:25 Docusate Enema 283 Mg/[address] 07/25/25 17:24 DAILY PRN Constipation Fenofibrate 48 [...] Neut % (Auto) 57.6, Lymph % (Auto) 27.9,[place] % (Auto) 11.3, Eos % (Auto) 2.3, Baso % (Auto) 0.9, Nucleat RBC Rel Count 0.1, Neut # (Auto) 3.9, Lymph # (Auto) 1.9, [place] # (Auto) 0.8, Eos # (Auto) 0.2, [...] 07/26/24 1629 Signed By: 07/26/24 1659 07/28/24 2872 [facility]04-30-2025 History and physical note Author Enedina Cain [facility] Note Date/Time July 26, 2024 12: 42pm [facility] [address] [place] [address] Physiatry (Rehab) H&P Signed Patient: Janelle Burt MR#: [id number] : 1940 Acct:[id number] Age/Sex: 83 / F Adm Date: 5 Loc: Room: [address] [place] [address] Type: ADM IN Attending Dr: Dev Jacobsen MD Copies to: MD Enedina Kmible, MD Antonino Montenegro MD~ Date of Service: [...] assistive device use prior to this admission. [facility] Medical History Ischemic cerebral vascular accident [...] stage 3 unspecified Cervical cancer 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 Bronchitis, not specified as acute or [...] Allergy (Unknown, Verified 07/22/24 21:12) Unknown Reaction Whdxcbz-AYF-CyZ Reductase Inhibitor (Chitzao-Aoq-Wei Reductase Inhibitor) Allergy (Unknown, Verified 07/22/24 21:12) [...] Bisacodyl (Bisacodyl 10 Mg Supp.Rect) [address] DAILY PRN PRN Reason: Constipation Stop: 07/25/25 17:24 Docusate Sodium (Docusate 100 Mg Capsule) 100 mg PO BID PRN PRN Reason: Constipation Stop: 07/25/25 17:24 Docusate Sodium (Docusate Enema 283 Mg/5 Ml Enema) [address] DAILY PRN PRN Reason: Constipation Stop: 07/25/25 17:24 Fenofibrate (Fenofibrate Nanocrystallized 48 Mg Tablet) 48 mg PO DAILY [facility] Stop: 07/26/25 08:59 Last Admin: 07/26/24 08:46 Dose: 48 mg Lactulose (Lactulose 20 Gm/30 Ml Udc) 30 gm PO DAILY PRN PRN Reason: Constipation Stop: 07/25/25 17:24 Levetiracetam (Levetiracetam 500 Mg Tablet) 500 mg PO BID [facility] Stop: 07/25/25 20:59 Last Admin: 07/26/24 08:47 Dose: 500 mg Levofloxacin (Levofloxacin 250 Mg Tablet) 250 mg PO DAILY [facility] Stop: 07/27/24 09:01 Last Admin: 07/26/24 08:46 Dose: 250 mg Levothyroxine Sodium (Levothyroxine 100 Mcg Tablet) 100 mcg PO DAILY.0630 [facility] Stop: 07/26/25 06:29 Last Admin: 07/26/24 05:38 [...] % (Auto) 57.6 Lymph % (Auto) 27.9 [place] % (Auto) 11.3 Eos % (Auto) 2.3 Baso % (Auto) 0.9 Nucleat RBC Rel Count 0.1 Neut # (Auto) 3.9 Lymph # (Auto) 1.9 [place] # (Auto) 0.8 Eos # (Auto) 0.2 [...] mobility Anticipated interventions: Physician management, PT, OT, MANGLE FEEDER, , Dietitian, RehabNursing, Case management 2. Therapy Functional Outcome/Goal: Anticipate independent transfers Anticipated interventions: Physician management, PT, OT, MANGLE FEEDER, Case management, Dietitian, Rehab Nursing 3. Therapy Functional Outcome/Goal: Anticipate independent ambulation Anticipated interventions: Physician management, PT, OT, MANGLE FEEDER Case management, Dietitian, Rehab Nursing 4.Therapy Functional Outcome/Goal: Anticipate independent self-care Anticipated interventions: Physician management, PT, OT, MANGLE FEEDER, Case management, Dietitian, Rehab Nursing 5.Therapy Functional Outcome/Goal: Anticipate independent functional communcation and swallowing Anticipated interventions: Physician management, PT, OT, MANGLE FEEDER, Case management, Dietitian, Rehab Nursing Required Therapy [...] additional therapy on as needed basis. Comments: MANGLE FEEDER to evaluate and treat patient?s cognition, language and communication skills, assess swallow function. Other: Dietitian, Rehab nursing, Wound, P&O, Neuropsychology as needed RATIONALE FOR IRF ADMISSION: Patient has both medical and functional complexities that require 24 hour daily monitoring and intervention from Gluing Crew Leader as well as other consulting physicians including internal medicine as well as 24 hour daily anesthesia assistant nursing - for medical safe / optimal management. Patient requires interdisciplinary therapy team rehabilitation care including OT, PT, MANGLE FEEDER, SW, Psychology, Rehab Nursing, requires and can [...] and proper breathing techniques during functional tasks. MANGLE FEEDER to evaluate and treat patient?s cognition, language [...] equipment to enhance the patient's a functional bahai Encourage deep breathing exercises and incentive spirometry [...] equipment to enhance the patient's a functional bahai Ensure adequate nutrition and hydration Sleep: No issues Pain: Reports no major discomfort. Continue as needed Tylenol. Discharge planning: Hopefully home in 7 to 10 days. I spent 46 minutes for services, including ubxc-gw-lzmi encounter with the patient, discussion of the case, plan of care, and exam; and tjgivfr-ze-uepw activities, such as reviewing pertinent networks software consultant documentation, recent therapynotes, laboratory and radiology studies, and discussion of case with care team including physician, nursing, case consultant, and therapists. More than 50 % of time was spent on patient/family counseling or coordination ofcare. I completed a substantive portion of this encounter, the medical decision makingportion of this note in its entirety, including Allied health note review, nursing note review, networks software consultant note review, discussion with nursing and case management, and more than 50% of my time was spent on counseling and coordination of care, time spent 60 minutes Patient was personally seen by me, Dr. Abreu, on the day of encounter, within 24hours of rehab admission, reviewed the history and the relevant portions of the chart, including current orders, allied health and networks software consultant notes, labs/imaging and performed dozier elements of exam and I formulated the plan of care and facilitated the medical decision making. Documented By: Enedina Cain APRN 07/26/24 1 104 Signed By: <Electronically signed by AIMEE Cain> 07/26/24 1135 <Electronically signed by Jhon Abreu MD> 07/26/24 1242 [facility] Work Phone: 1(336) 845-927604-30-2025 [place] [address] Physiatry (Rehab) H&P Signed Patient: Janelle Burt MR#: [id number] : 1940 Acct:[id number] Age/Sex: 83 / F Adm Date: 5 Loc: Room: [address] [place] [address] Type: ADM IN Attending Dr: Dev Jacobsen [...] assistive device use prior to this admission. [facility] Medical History Ischemic cerebral vascular accident [...] stage 3 unspecified Cervical cancer 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 Bronchitis, not specified as acute or [...] Allergy (Unknown, Verified 07/22/24 21:12) Unknown Reaction Ygaxagq-GDC-WiL Reductase Inhibitor (Thccmqt-Vry-Yqb Reductase Inhibitor) Allergy (Unknown, Verified 07/22/24 21:12) [...] Bisacodyl (Bisacodyl 10 Mg Supp.Rect) [address] DAILY PRN PRN Reason: Constipation Stop: 07/25/25 17:24 Docusate Sodium (Docusate 100 Mg Capsule) 100 mg PO BID PRN PRN Reason: Constipation Stop: 07/25/25 17:24 Docusate Sodium (Docusate Enema 283 Mg/5 Ml Enema) [address] DAILY PRN PRN Reason: Constipation Stop: 07/25/25 [...] 100 Mcg Tablet) 100 mcg PO DAILY.629 [facility] Stop: 07/26/25 06:29 Last Admin: 07/26/24 05:38 Dose: 100 mcg Metoprolol Tartrate (Metoprolol Tartrate 25 Mg Tablet) 25 mg PO BID [facility] Stop: 07/25/25 20:59 Last Admin: 07/26/24 08:47 [...] 10 Ml Syringe) 10 ml IV-PUSH BID [facility] Stop: 07/26/25 08:59 Last Admin: 07/26/24 08:47 Dose: 10 ml Valsartan (Valsartan 160 Mg Tablet) 160 mg PO DAILY [facility] Stop: 07/26/25 08:59 Last Admin: 07/26/24 08:46 [...] % (Auto) 57.6 Lymph % (Auto) 27.9 [place] % (Auto) 11.3 Eos % (Auto) 2.3 Baso % (Auto) 0.9 Nucleat RBC Rel Count 0.1 Neut # (Auto) 3.9 Lymph # (Auto) 1.9 [place] # (Auto) 0.8 Eos # (Auto) 0.2 [...] mobility Anticipated interventions: Physician management, PT, OT, MANGLE FEEDER, , Dietitian, RehabNursing, Case management 2. Therapy Functional Outcome/Goal: Anticipate independent transfers Anticipated interventions: Physician management, PT, OT, MANGLE FEEDER, Case management, Dietitian, Rehab Nursing 3. Therapy Functional Outcome/Goal: Anticipate independent ambulation Anticipated interventions: Physician management, PT, OT, MANGLE FEEDER Case management, Dietitian, Rehab Nursing 4.Therapy Functional Outcome/Goal: Anticipate independent self-care Anticipated interventions: Physician management, PT, OT, MANGLE FEEDER, Case management, Dietitian, Rehab Nursing 5.Therapy Functional Outcome/Goal: Anticipate independent functional communcation and swallowing Anticipated interventions: Physician management, PT, OT, MANGLE FEEDER, Case management, Dietitian, Rehab Nursing Required Therapy [...] additional therapy on as needed basis. Comments: MANGLE FEEDER to evaluate and treat patient?s cognition, language and communication skills, assess swallow function. Other: Dietitian, Rehab nursing, Wound, P&O, Neuropsychology as needed RATIONALE FOR IRF ADMISSION: Patient has both medical and functional complexities that require 24 hour daily monitoring and intervention from Gluing Crew Leader as well as other consulting physicians including internal medicine as well as 24 hour daily anesthesia assistant nursing - for medical safe / optimal manageme nt. Patient requires interdisciplinary therapy team rehabilitation care including OT, PT, MANGLE FEEDER, SW, Psychology, Rehab Nursing, requires and can [...] and proper breathing techniques during functional tasks. MANGLE FEEDER to evaluate and treat patient?s cognition, language [...] equipment to enhance the patient's a functional bahai Encourage deep breathing exercises and incentive spirometry [...] equipment to enhance the patient's a functional bahai Ensure adequate nutrition and hydration Sleep: No issues Pain: Reports no major discomfort. Continue as needed Tylenol. Discharge planning: Hopefully home in 7 to 10 days. I spent 46 minutes for services, including oesw-ej-rdbp encounter with the patient, discussion of the case, plan of care, and exam; and hjplpld-rr-oxed activities, such as reviewing pertinent networks software consultant documentation, recent therapynotes, laboratory and radiology studies, and discussion of case with care team including physician, nursing, case consultant, and therapists. More than 50 % of time was spent on patient/family counseling or coordination ofcare. I completed a substantive portion of this encounter, the medical decision makingportion of this note in its entirety, including Allied health note review, nursing note review, networks software consultant note review,discussion with nursing and case management, and more than 50% of my time was spent on counseling and coordination of care, time spent 60 minutes Patient was personally seen by me, Dr. Abreu, on the day of encounter, within 24hours of rehab admission, reviewed the history and the relevant portions of the chart, including current orders, alliedhealth and networks software consultant notes, labs/imaging and performed dozier elements of exam and I formulated the plan of care and facilitated the medical decision making. 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 [...] of care. Patient lives home alone in [place]. Has a 3story home. 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 [...] plan ofcare. Patient lives home alone in [place]. Has a 3story home. Her laundry and [...] DO 07/25/24 1254 Signed By: 07/25/24 1310 [facility]04-29-2025 Progress note Author Jhon Abreu [facility] Note Date/Time July 25, 2024 9:4 0am [facility] [address] [place] [address] Physiatry(Rehab) Progress Note Signed Patient: Janelle Burt MR#: [id number] : 1940 Acct:[id number] Age/Sex: 83 / F Adm Date: 5 Loc: Room: [address] [place] [place] [address] Type: ADM IN Attending Dr: Jovani Sibley [...] Allergy (Unknown, Verified 07/22/24 21:12) Unknown Reaction Twfokks-CNH-BqR Reductase Inhibitor (Zkjoevp-Uqb-Aqq Reductase Inhibitor) Allergy (Unknown, Verified 07/22/24 21:12) Unknown Reaction Sulfa (Sulfonamide Antibiotics) Allergy (Unknown, Verified 07/22/24 21:12) Unknown Reaction Active Medications Generic Name Dose Route Start Last Admin Trade Name Freq PRN Reason Stop Dose Admin Acetaminophen 650 mg 07/23/24 04:11 07/23/24 04:25 Acetaminophen [address] 07/23/25 04:10 650 mg Q6HR PRN Administration [...] complexity that cannot be best managed at [facility] level of care and requires at least 3 times weekly encounters with resident program specialist for medical management and for plan of care review / changes. Patient was personally seen by me, Dr. Abreu, on the day of encounter, reviewed the history and the relevant portions of the chart, including current orders, allied health and networks software consultant notes, labs/imaging and performed dozier elements of exam and I formulated the plan of care and facilitated the medical decision making. I completed a substantive portion of this encounter, the medical decision makingportion of this note in its entirety, including Allied health note review, nursing note review, networks software consultant note review, discussion with nursing and case management, and more than 50% of my time was spent on counseling and coordination of care, time spent 30 minutes Documented By: Jhon Abreu MD 07/25/24 0937 Signed By: <Electronically signed by Jhon Abreu MD> 07/25/24 0940 [facility] Work Phone: [phone]) 154-607004-29-2025 [place] [address] Physiatry(Rehab) Progress Note Signed Patient: Janelle Burt MR#: [id number] : 1940 Acct:[id number] Age/Sex: 83 / F Adm Date: 5 Loc: Room: [address] [place] [address] Type: ADM IN Attending Dr: Jovani Sibley [...] Allergy (Unknown, Verified 07/22/24 21:12) Unknown Reaction Ssrkcgc-GQA-QoB Reductase Inhibitor (Abplpvc-Npr-Vfv Reductase Inhibitor) Allergy (Unknown, Verified 07/22/24 21:12) Unknown Reaction Sulfa (Sulfonamide Antibiotics) Allergy (Unknown, Verified 07/22/24 21:12) Unknown Reaction Active Medications Generic Name Dose Route Start Last Admin Trade Name Freq PRN Reason Stop Dose Admin Acetaminophen 650 mg 07/23/24 04:11 07/23/24 04:25 Acetaminophen [address] 07/23/25 04:10 650 mg Q6HR PRN Administration [...] complexity that cannot be best managed at [facility] level of care and requires at least 3 times weekly encounters with resident program specialist for medical management and for plan of care review / changes. Patient was personally seen by me, Dr. Abreu, on the day of encounter, reviewed the history and therelevant portions of the chart, including current orders, allied health and networks software consultant notes, labs/imaging and performed dozier elements of exam and I formulated the plan of care and facilitated the medical decision making. I completed a substantive portion of this encounter, the medical decision makingportion of this note in its entirety, including Allied health note review, nursing note review, networks software consultant note review,discussion with nursing and case management, and more than 50% of my time was spent on counseling and coordination of care, time spent 30 minutes Documented By: Jhon Abreu MD 07/25/24 0937 Signed By: 07/25/24 0940 [facility]04-29-2025 Progress note Author Jovani Sibley [facility] Note Date/Time July 24, 2024 10: 03pm [facility] [address] [place] [address] Hospitalist Progress Note Signed Patient: Janelle Burt MR#: [id number] : 1940 Acct:[id number] Age/Sex: 83 / F Adm Date: 5 Loc: Room: [address] [place] [address] Type: ADM IN Attending Dr: Jovani Sibley [...] Allergy (Unknown, Verified 07/22/24 21:12) Unknown Reaction Yudxidf-NMF-MhD Reductase Inhibitor (Vzxkuqg-Nwa-Fjs Reductase Inhibitor) Allergy (Unknown, Verified 07/22/24 21:12) Unknown Reaction Sulfa (Sulfonamide Antibiotics) Allergy (Unknown, Verified 07/22/24 21:12) Unknown Reaction Active Meds: Active Medications Generic Name Dose Route Start Last Admin Trade Name Freq PRN Reason Stop Dose Admin Acetaminophen 650 mg 07/23/24 04:11 07/23/24 04:25 Acetaminophen [address] 07/23/25 04:10 650 mg Q6HR PRN Administration [...] her medical management will be handled by nip wrapper in collaboration with other needed specialist. Patient's [...] <Electronically signed by Jovani Sibley MD> 07/24/24 2409 [facility] Work Phone: 1(803) 108-985104-28-2025 [place] [address] Hospitalist Progress Note Signed Patient: Janelle Burt MR#: [id number] : 1940 Acct:[id number] Age/Sex: 83 / F Adm Date: 5 Loc: Room: [address] [place] [address] Type: ADM IN Attending Dr: Jovani Sibley [...] Allergy (Unknown, Verified 07/22/24 21:12) Unknown Reaction Iqmsrri-IYV-KxJ Reductase Inhibitor (Gtvxczd-Tsc-Qqr Reductase Inhibitor) Allergy (Unknown, Verified 07/22/24 21:12) Unknown Reaction Sulfa (Sulfonamide Antibiotics) Allergy (Unknown, Verified 07/22/24 21:12) Unknown Reaction Active Meds: Active Medications Generic Name Dose Route Start Last Admin Trade Name Freq PRN Reason Stop Dose Admin Acetaminophen 650 mg 07/23/24 04:11 07/23/24 04:25 Acetaminophen [address] 07/23/25 04:10 650 mg Q6HR PRN Administration [...] her medical management will be handled by nip wrapper in collaboration with other needed specialist. Patient's [...] Jovani Sibley MD 07/24/241144 Signed By: 07/24/24 2207 [facility]04-28-2025 Progress note Author Abdulkadir Amaro [facility] Note Date/Time July 24, 2024 4:2 0pm [facility] [address] [place] [address] Neurology Progress Note Signed Patient: Janelle Burt MR#: [id number] : 1940 Acct:[id number] Age/Sex: 83 / F Adm Date: 5 Loc: Room: [address] [place] [address] Type: ADM IN Attending Dr: Jovani Sibley [...] <Electronically signed by Abdulkadir Amaro DO> 07/24/24 8983 [facility] Work Phone: [phone]) 565-283104-28-[address] [address] Neurology Progress Note Signed Patient: Janelle Burt MR#: [id number] : 1940 Acct:[id number] Age/Sex: 83 / F Adm Date: 5 Loc: Room: 9L7758-2 Type: ADM IN Attending Dr: Jovani Sibley [...] DO 07/24/24 1308 Signed By: 07/24/24 1620 [facility]04-28-2025 Consult note Author Sylvie Florez [facility] Note Date/Time July 24, 2024 1:3 7pm [facility] [address] [place] [address] Palliative Care Consult Note Signed Patient: Janelle Burt MR#: [id number] : 1940 Acct:[id number] Age/Sex: 83 / F Adm Date: 5 Loc: Room: [address] [place] [address] Type: ADM IN Attending Dr: Jovani Sibley [...] as severe narrowing in left P1, P2 [employer] and right P1 [employer], 50% narrowing of both proximal ICAs. [...] of care. Patient lives home alone in [place]. Has a 3story home. Her laundry and [...] negative unless noted below or in HPI [facility] Medical History Ischemic cerebral vascular accident [...] stage 3 unspecified Cervical cancer 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 Bronchitis, not specified as acute or [...] Allergy (Unknown, Verified 07/22/24 21:12) Unknown Reaction Qdfldns-TAF-GpJ Reductase Inhibitor (Vvlnsbq-Wal-Rhr Reductase Inhibitor) Allergy (Unknown, Verified 07/22/24 21:12) [...] Acetaminophen (Acetaminophen 650 Mg Supp.Rect) [address] Q6HR PRN PRN Reason: Fever or Pain Stop: 07/23/25 04:10 Last Admin: 07/23/24 04:25 Dose: 650 mg Apixaban (Apixaban 5 Mg Tablet) 5 mg PO BID [facility] Stop: 07/23/25 20:59 Last Admin: 07/24/24 08:50 Dose: 5 mg Aspirin (Aspirin 81 Mg Tablet.Dr) 81 mg PO DAILY [facility] Stop: 07/23/25 14:14 Last Admin: 07/24/24 08:50 Dose: 81 mg Atorvastatin Calcium (Atorvastatin 40 Mg Tablet) 40 mg PO DAILY [facility] Stop: 07/24/25 08:59 Last Admin: 07/24/24 08:50 Dose: 40 mg Levofloxacin (Levaquin) 750 mg in 150 mls @ 100 mls/hr IV Q48H [facility] Last Admin: 07/23/24 11:31 Dose: 100 mls/hr Levetiracetam (Keppra) 1,000 mg in 100 mls @ 400 mls/hr IV BID [place] Stop: 07/23/25 08:59 Last Admin: 07/24/24 08:50 Dose: 400 mls/hr Diltiazem HCl (Cardizem) 100 mg in 100 mls @ 10 mls/hr IV .Q10H [facility]; Protocol Stop: 07/23/25 14:14 Last Admin: 07/24/24 11:26 Dose: Not Given Sodium Chloride (0.9% Sodium Chloride 100 Ml) 100 mls @ 20 mls/hr IV .Q5H [facility] Stop: 07/23/25 14:14 Last Admin: 07/24/24 11:27 Dose: Not Given Levothyroxine Sodium (Levothyroxine 100 Mcg Tablet) 100 mcg PO DAILY@0630 [facility] Stop: 07/24/25 06:29 Last Admin: 07/24/24 06:32 [...] % (Auto) 25.9 % (.) 07/24/24 04:22 [place] % (Auto) 10.8 % (.) 07/24/24 04:22 Eos % (Auto) 1.4 % (.) 07/24/24 04:22 Baso % (Auto) 1.3 % (.) 07/24/24 04:22 Nucleat RBC Rel Count 0.0 /100 WBC (0-0.5) 07/24/24 04:22 Neut # (Auto) 3.6 x10E3/uL (1.8-7.7) 07/24/24 04:22 Lymph # (Auto) 1.5 x10E3/uL (1.00-4.8) 07/24/24 04:22 [place] # (Auto) 0.6 x10E3/uL (0.0-0.8) 07/24/24 04:22 [...] pH 8.0 (5.0-9.0) 07/22/24 21:55 Ur Specific [place] 1.025 (1.001-1.030) 07/22/24 21:55 Urine Protein Negative [...] <Electronically signed by Sylvie Florez DO> 07/24/24 0033 [facility] Work Phone: 1(801) 135-528504-28-2025 Progress note Author Jhon Abreu [facility] Note Date/Time July 24, 2024 1:1 4pm [facility] [address] [place] [address] Physiatry(Rehab) Progress Note Signed Patient: Janelle Burt MR#: [id number] : 1940 Acct:[id number] Age/Sex: 83 / F Adm Date: 5 Loc: 4C Room: [address] [place] [address] Type: ADM IN Attending Dr: Jovani Sibley [...] daughter present. Her [facility] will [facility]. Both agreeable to [...] % (Auto) 60.6 Lymph % (Auto) 25.9 [place] % (Auto) 10.8 Eos % (Auto) 1.4 Baso % (Auto) 1.3 Nucleat RBC Rel Count 0.0 Neut # (Auto) 3.6 Lymph # (Auto) 1.5 [place] # (Auto) 0.6 Eos # (Auto) 0.1 [...] Allergy (Unknown, Verified 07/22/24 21:12) Unknown Reaction Qdlhlrs-KFN-IgP Reductase Inhibitor (Vfemecr-Jvi-Lzt Reductase Inhibitor) Allergy (Unknown, Verified 07/22/24 21:12) Unknown Reaction Sulfa (Sulfonamide Antibiotics) Allergy (Unknown, Verified 07/22/24 21:12) Unknown Reaction Active Medications Generic Name Dose Route Start Last Admin Trade Name Freq PRN Reason Stop Dose Admin Acetaminophen 650 mg 07/23/24 04:11 07/23/24 04:25 Acetaminophen [address] 07/23/25 04:10 650 mg Q6HR PRN Administration [...] complexity that cannot be best managed at [facility] level of care and requires at least 3 times weekly encounters with resident program specialist for medical management and for plan of care review / changes. Patient was personally seen by me, Dr. Abreu, on the day of encounter, reviewed the history and the relevant portions of the chart, including current orders, allied health and networks software consultant notes, labs/imaging and performed dozier elements of exam and I formulated the plan of care and facilitated the medical decision making. I completed a substantive portion of this encounter, the medical decision makingportion of this note in its entirety, including Allied health note review, nursing note review, networks software consultant note review, discussion with nursing and case management, and more than 50% of my time was spent on counseling and coordination of care, time spent 45 minutes Documented By: Jhon Abreu MD 07/24/24 1307 Signed By: <Electronically signed by Jhon Abreu MD> 07/24/24 1314 [facility] Work Phone: [phone]) [phone] [place] [id number] Palliative Care Consult Note Signed Patient: Janelle Burt MR#: [id number] : 1940 Acct:[id number] Age/Sex: 83 / F Adm Date: 5 Loc: Room: [address] [place] [address] Type: ADM IN Attending Dr: Jovani Sibley [...] as severe narrowing in left P1, P2 [employer] and right P1 [employer], 50% narrowing of both proximal ICAs. [...] plan ofcare. Patient lives home alone in [place]. Has a 3story home. Her laundry and [...] negative unless noted below or in HPI [facility] Medical History Ischemic cerebral vascular accident [...] stage 3 unspecified Cervical cancer 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 Bronchitis, not specified as acute or [...] Allergy (Unknown, Verified 07/22/24 21:12) Unknown Reaction Ilvnpkt-ESI-OaD Reductase Inhibitor (Bqaexah-Vav-Lkl Reductase Inhibitor) Allergy (Unknown, Verified 07/22/24 21:12) [...] Acetaminophen (Acetaminophen 650 Mg Supp.Rect) [address] Q6HR PRN PRN Reason: Fever or Pain Stop: 07/23/25 04:10 Last Admin: 07/23/24 04:25 Dose: 650 mg Apixaban (Apixaban 5 Mg Tablet) 5 mg PO BID [facility] Stop: 07/23/25 20:59 Last Admin: 07/24/24 08:50 Dose: 5 mg Aspirin (Aspirin 81 Mg Tablet.Dr) 81 mg PO DAILY [facility] Stop: 07/23/25 14:14 Last Admin: 07/24/24 08:50 Dose: 81 mg Atorvastatin Calcium (Atorvastatin 40 Mg Tablet) 40 mg PO DAILY [place] Stop: 07/24/25 08:59 Last Admin: 07/24/24 08:50 Dose: 40 mg Levofloxacin (Levaquin) 750 mg in 150 mls @ 100 mls/hr IV Q48H [facility] Last Admin: 07/23/24 11:31 Dose: 100 mls/hr [...] % (Auto) 25.9 % (.) 07/24/24 04:22 [place] % (Auto) 10.8 % (.) 07/24/24 04:22 Eos % (Auto) 1.4 % (.) 07/24/24 04:22 Baso % (Auto) 1.3 % (.) 07/24/24 04:22 Nucleat RBC Rel Count 0.0 /100 WBC (0-0.5) 07/24/24 04:22 Neut # (Auto) 3.6 x10E3/uL (1.8-7.7) 07/24/24 04:22 Lymph # (Auto) 1.5 x10E3/uL (1.00-4.8) 07/24/24 04:22 [place] # (Auto) 0.6 x10E3/uL (0.0-0.8) 07/24/24 04:22 [...] pH 8.0 (5.0-9.0) 07/22/24 21:55 Ur Specific [place] 1.025 (1.001-1.030) 07/22/24 21:55 Urine Protein Negative [...] DO 07/24/24 1142 Signed By: 07/24/24 1337 [facility]04-28-2025 [place] [address] Physiatry(Rehab) Progress Note Signed Patient: Janelle Burt MR#: [id number] : 1940 Acct:[id number] Age/Sex: 83 / F Adm Date: 5 Loc: Room: 6L8194-6 Type: ADM IN Attending Dr: Jovani Sibley [...] % (Auto) 60.6 Lymph % (Auto) 25.9 [place] % (Auto) 10.8 Eos % (Auto) 1.4 Baso % (Auto) 1.3 Nucleat RBC Rel Count 0.0 Neut # (Auto) 3.6 Lymph # (Auto) 1.5 [place] # (Auto) 0.6 Eos # (Auto) 0.1 [...] Allergy (Unknown, Verified 07/22/24 21:12) Unknown Reaction Rbuuxjb-WBU-XgW Reductase Inhibitor (Uyiuhex-Pgz-Vfp Reductase Inhibitor) Allergy (Unknown, Verified 07/22/24 21:12) Unknown Reaction Sulfa (Sulfonamide Antibiotics) Allergy (Unknown, Verified 07/22/24 21:12) Unknown Reaction Active Medications Generic Name Dose Route Start Last Admin Trade Name Freq PRN Reason Stop Dose Admin Acetaminophen 650 mg 07/23/24 04:11 07/23/24 04:25 Acetaminophen [address] 07/23/25 04:10 650 mg Q6HR PRN Administration [...] complexity that cannot be best managed at [facility] level of care and requires at least 3 times weekly encounters with resident program specialist for medical management and for plan of care review / changes. Patient was personally seen by me, Dr. Abreu, on the day of encounter, reviewed the history and therelevant portions of the chart, including current orders, allied health and networks software consultant notes, labs/imaging and performed dozier elements of exam and I formulated the plan of care and facilitated the medical decision making. I completed a substantive portion of this encounter, the medical decision makingportion of this note in its entirety, including Allied health note review, nursing note review, networks software consultant note review,discussion with nursing and case management, and more than 50% of my time was spent on counseling and coordination of care, time spent 45 minutes Documented By: Jhon Abreu MD 07/24/24 1307 Signed By: 07/24/24 1314 [facility]04-27-2025 Progress note Author Jhony Davis [facility] Note Date/Time July 23, 2024 2:5 7pm [facility] [address] [place] [address] Progress Note Signed Patient: Janelle Burt MR#: [id number] : 1940 Acct:[id number] Age/Sex: 83 / F Adm Date: 5 Loc: Room: [address] [place] [address] Type: ADM IN Attending Dr: Jhony aDvis MD Copies to: ~ Date of Service: [...] signed by Jhony Davis MD> 07/23/24 1457 [facility] Work Phone: 1([phone]) 493-121004-27-2025 Consult note Author Guido Bridges [facility] Note Date/Time July 23, 2024 1:4 2pm [facility] [address] [place] [address] Neurology Consult Note Signed Patient: Janelle Burt MR#: [id number] : 1940 Acct:[id number] Age/Sex: 83 / F Adm Date: 5 Loc: Room: [address] [place] [address] Type: ADM IN Attending Dr: Jhony Davis MD Copies to: DO Antonino Wilson MD Rafik Massouh, MD~ HPI Consult Date: 07/23/24 Exchange Architect: Guido Bridges DO Consult Narrative HPI: Was [...] of Systems Unobtainable due to mental status [facility] Medical History Ischemic cerebral vascular accident [...] stage 3 unspecified Cervical cancer 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 Bronchitis, not specified as acute or [...] Allergy (Unknown, Verified 07/22/24 21:12) Unknown Reaction Viwkvvh-STI-VwM Reductase Inhibitor (Cnoxupj-Qfp-Tet Reductase Inhibitor) Allergy (Unknown, Verified 07/22/24 21:12) [...] Ferrera M.D. 07/23/2024 7:56 AM Dictation Location: [place] [address] Head CTA 07/22/24 21:12 IMPRESSION: Negative for large vessel occlusion or hemodynamically significant stenosis involving the cervical vessels. Moderate burden of disease identified intracranially notably involving right distal M1 segment. Left A2 A3 segment. Moderate severe narrowing left P1 P2 segment [employer]. Moderate narrowing right P1 segment [employer]. Up to 50% narrowing involving both proximal ICAs Impression dictated by: Charli Ferrera M.D. 07/23/2024 8:46 AM Dictation Location: [place] [address] Assessment/Plan (1) Seizure: (2) Altered mental status: [...] <Electronically signed by Guido Bridges DO> 07/23/[address] [place] [address] Work Phone: 1(790) [phone] [place] [address] Progress Note Signed Patient: Janelle Burt MR#: [id number] : 1940 Acct:[id number] Age/Sex: 83 / F Adm Date: 5 Loc: Room: [address] [place] [address] Type: ADM IN Attending Dr: Jhony Davis [...] Davis MD 07/23/241455 Signed By: 07/23/24 1457 [facility]04-27-2025 Consult note Author Samra Andrade [facility] Note Date/Time July 23, 2024 12: 21pm [facility] [address] [place] [address] Pulmonology Consult Note Signed Patient: Janelle Burt MR#: [id number] : 1940 Acct:[id number] Age/Sex: 83 / F Adm Date: 5 Loc: Room: [address] [place] [address] Type: ADM IN Attending Dr: Jhony Davis [...] stated above mentioned history of present illness [facility] Medical History Ischemic cerebral vascular accident [...] stage 3 unspecified Cervical cancer 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 Bronchitis, not specified as acute or [...] Allergy (Unknown, Verified 07/22/24 21:12) Unknown Reaction Fssvedz-WCB-ShR Reductase Inhibitor (Scqcfru-Kmm-Jke Reductase Inhibitor) Allergy (Unknown, Verified 07/22/24 21:12) [...] nondistended. Extremities: No edema. 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 Arouses [...] signed by Samra Andrade MD> 07/23/24 1221 [facility] Work Phone: [phone]) [phone] [place] [address] Neurology Consult Note Signed Patient: Janelle Burt MR#: [id number] : 1940 Acct:[id number] Age/Sex: 83 / F Adm Date: 5 Loc: Room: [address] [place] [address] Type: ADM IN Attending Dr: Jhony Davis MD Copies to: Christopher M DO Antonino Bridges MD Rafik Massouh, MD~ HPI Consult Date: 07/23/24 Exchange Architect: Guido Bridges DO Consult Narrative HPI: Was [...] of Systems Unobtainable due to mental status [facility] Medical History Ischemic cerebral vascular accident [...] stage 3 unspecified Cervical cancer 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 Bronchitis, not specified as acute or [...] Allergy (Unknown, Verified 07/22/24 21:12) Unknown Reaction Yddcxfa-QON-JeV Reductase Inhibitor (Rycznhx-Hxy-Ocj Reductase Inhibitor) Allergy (Unknown, Verified 07/22/24 21:12) [...] Ferrera M.D. 07/23/2024 7:56 AM Dictation Location: [facility] Head CTA 07/22/24 21:12 IMPRESSION: Negative for large vessel occlusion or hemodynamically significant stenosis involving the cervical vessels. Moderate burden of disease identified intracranially notably involving right distal M1 segment. Left A2 A3 segment. Moderate severe narrowing left P1 P2 segment [employer]. Moderate narrowing right P1 segment [employer]. Up to 50% narrowing involving both proximal ICAs Impression dictated by: Charli Ferrera M.D. 07/23/2024 8:46 AM Dictation Location: [facility] Assessment/Plan (1) Seizure: (2) Altered mental status: [...] concerns Documented By: Guido Bridges DO 5 [id number] Signed By: 07/23/24 1342 [facility]04-27-2025 Progress note Author Jhony Davis [facility] Note Date/Time July 23, 2024 10: 42am [facility] [address] [place] [address] Hospitalist Progress Note Signed Patient: Janelle Burt MR#: [id number] : 1940 Acct:[id number] Age/Sex: 83 / F Adm Date: 5 Loc: Room: 7F7585-0 Type: ADM IN Attending Dr: Jhony Davis [...] Allergy (Unknown, Verified 07/22/24 21:12) Unknown Reaction Dkqtwwq-JEA-ZoD Reductase Inhibitor (Eaamnyu-Aik-Vnd Reductase Inhibitor) Allergy (Unknown, Verified 07/22/24 21:12) Unknown Reaction Sulfa (Sulfonamide Antibiotics) Allergy (Unknown, Verified 07/22/24 21:12) Unknown Reaction Active Meds: Active Medications Generic Name Dose Route Start Last Admin Trade Name Freq PRN Reason Stop Dose Admin Acetaminophen 650 mg 07/23/24 04:11 07/23/24 04:25 Acetaminophen [address] 07/23/25 04:10 650 mg Q6HR PRN Administration Fever or Pain Aspirin 300 mg 07/23/24 10:45 Aspirin [address] 07/23/25 10:44 DAILY [place] Enoxaparin Sodium 50 [...] 07/23/24 10:30 Lactated Ringers IV 07/23/25 10:29 .[id number] [place] Ceftriaxone Sodium 1 gm in 50 [...] her medical management will be handled by nip wrapper in collaboration with other needed specialist. Patient's [...] <Electronically signed by Jhony Davis MD> 07/23/24 1048 [facility] Work Phone: [phone]) [phone] [place] [address] Pulmonology Consult Note Signed Patient: Janelle Burt MR#: [id number] : 1940 Acct:[id number] Age/Sex: 83 / F Adm Date: 5 Loc: Room: [address] [place] [address] Type: ADM IN Attending Dr: Jhony Davis [...] stated above mentioned history of present illness [facility] Medical History Ischemic cerebral vascular accident [...] stage 3 unspecified Cervical cancer 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 Bronchitis, not specified as acute or [...] Allergy (Unknown, Verified 07/22/24 21:12) Unknown Reaction Vmsvjak-GNO-OtT Reductase Inhibitor (Zinldpr-Lfs-Mmd Reductase Inhibitor) Allergy (Unknown, Verified 07/22/24 21:12) [...] nondistended. Extremities: No edema. 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 Arouses [...] MD 07/23/24 1214 Signed By: 07/23/24 1221 [facility]04-27[facility]2025 [place] [address] Hospitalist Progress Note Signed Patient: Janelle Burt MR#: [id number] : 1940 Acct:[id number] Age/Sex: 83 / F Adm Date: 5 Loc: Room: [address] [place] [address] Type: ADM IN Attending Dr: Jhony Davis [...] Allergy (Unknown, Verified 07/22/24 21:12) Unknown Reaction Vyqagnk-WHR-PqG Reductase Inhibitor (Fwnivng-Rpe-Anp Reductase Inhibitor) Allergy (Unknown, Verified 07/22/24 21:12) Unknown Reaction Sulfa (Sulfonamide Antibiotics) Allergy (Unknown, Verified 07/22/24 21:12) Unknown Reaction Active Meds: Active Medications Generic Name Dose Route Start Last Admin Trade Name Freq PRN Reason Stop Dose Admin Acetaminophen 650 mg 07/23/24 04:11 07/23/24 04:25 Acetaminophen [address] 07/23/25 04:10 650 mg Q6HR PRN Administration Fever or Pain Aspirin 300 mg 07/23/24 10:45 Aspirin [address] 07/23/25 10:44 DAILY CLIFTON Enoxaparin Sodium 50 [...] 07/23/24 10:30 Lactated Ringers IV 07/23/25 10:29 .[id number] CL[place]ON Ceftriaxone Sodium 1 gm in 50 [...] her medical management will be handled by nip wrapper in collaboration with other needed specialist. Patient's [...] MD 07/23/24 1037 Signed By: 07/23/24 1042 [facility]04-27-2025 Radiology Diagnostic study note [facility] [place] [address] CT Scan Report Signed Patient: Janelle Burt MR#: [id number] : 1940 Acct:[id number] Age/Sex: 83 / F ADM Date: 5 Loc: Room: [address] [place] [address] Type: ADM IN Attending Dr: Jhony Davis MD Copies to: MD Asad Doan Jr, MD~ Ordering Provider: Asad Mcnally Jr, MD Date of Service: 07/22/24 CT/CT angio head: fall, mild L weakness, anticoag ([id number]) CT/CT angio neck: fall, mild L weakness, [...] DIFFUSE 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 NO SACCULAR ANEURYSM. MULTILEVEL DEGENERATIVE CHANGES THROUGHOUT THE CERVICAL SPINE CT/CT angio head IMPRESSION: Negative for large vessel occlusion or hemodynamically significant stenosis involving the cervical vessels. Moderate burden of disease identified intracranially notably involving right distal M1 segment. Left A2 A3 segment. Moderate severe narrowing left P1 P2 segment ROOF CEMENT AND PAINT MAKER. Moderate narrowing right P1 segment ROOF CEMENT AND PAINT MAKER. Up to 50% narrowing involving both proximal ICAs Impression dictated by: Charli Ferrera M.D. 07/23/2024 8:46 AM Dictation Location: [place] [address] Transcribed By: [facility] 07/23/24845 Dictated By: Charli Ferrera MD 07/23/24 0835 Signed By: 07/23/24 0846 [facility] Work Phone: 1(260) 946-761304-27-2025 Radiology Diagnostic study [facility] [place] [address] [place] [address] CT Scan Report Signed Patient: Janelle Burt MR#: [id number] : 1940 Acct:[id number] Age/Sex: 83 / F ADM Date: 5 Loc: Room: [address] [place] [address] Type: ADM IN Attending Dr: Jhony Davis [...] bleed, midline shift or mass effect. Right ROOF CEMENT [employer] PAINT MAKER distribution encephalomalacia noted. Moderate chronic small vessel ischemic disease. Intracranial vascular calcification. No calvarial fracture. Mild ethmoid sinusmucosal thickening. Cataract surgery. CT/CT head stroke alert wo con IMPRESSION: Chronic microvascular disease and Central involutional changes without evidence acute bleed or midline shift. Impression dictated by: Charli Ferrera M.D. 07/23/2024 7:56 AM Dictation Location: [place] [address] Transcribed By: [facility] 07/23/24 075 Dictated By: Charli Ferrera MD 07/23/24 0753 Signed By: 07/23/24 0756 [facility] Work Phone: 1(907) 649-755504-27-2025 History and physical note Author Jon Felder [facility] Note Date/Time July 23, 2024 5:2 4am [facility] [address] [place] [address] Hospitalist H&P Signed with Mac Patient: Janelle Burt MR#: [id number] : 1940 Acct:[id number] Age/Sex: 83 / F Adm Date: 5 Loc: Room: [address] [place] [address] Type: ADM IN Attending Dr: Jon Felder [...] status and Unobtainable due to mental condition [facility] Medical History Ischemic cerebral vascular accident [...] stage 3 unspecified Cervical cancer 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 Bronchitis, not specified as acute or [...] Allergy (Unknown, Verified 07/22/24 21:12) Unknown Reaction Zfeefyv-SSD-ZqA Reductase Inhibitor (Atwiqfb-Ojj-Ddm Reductase Inhibitor) Allergy (Unknown, Verified 07/22/24 21:12) [...] % (Auto) 17.6 % (.) 07/22/24 21:10 [place] % (Auto) 5.3 % (.) 07/22/24 21:10 Eos % (Auto) 0.9 % (.) 07/22/24 21:10 Baso % (Auto) 0.8 % (.) 07/22/24 21:10 Nucleat RBC Rel Count 0.1 /100 WBC (0-0.5) 07/22/24 21:10 Neut # (Auto) 7.4 x10E3/uL (1.8-7.7) 07/22/24 21:10 Lymph # (Auto) 1.7 x10E3/uL (1.00-4.8) 07/22/24 21:10 [place] # (Auto) 0.5 x10E3/uL (0.0-0.8) 07/22/24 21:10 [...] pH 8.0 (5.0-9.0) 07/22/24 21:55 Ur Specific [place] 1.025 (1.001-1.030) 07/22/24 21:55 Urine Protein Negative [...] 75 Documented By: Jon Felder MD 07/22/24 4807 Signed By: <Electronically signed by Jon Felder MD> 07/23/24 0148 [facility] Work Phone: 1(516) 195-613704-27-2025 [place] [address] Hospitalist H&P Signed with Addenda Patient: Janelle Burt MR#: [id number] : 1940 Acct:[id number] Age/Sex: 83 / F Adm Date: 5 Loc: Room: [address] [place] [address] Type: ADM IN Attending Dr: Jon Felder [...] status and Unobtainable due to mental condition [facility] Medical History Ischemic cerebral vascular accident [...] stage 3 unspecified Cervical cancer 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 Bronchitis, not specified as acute or [...] Allergy (Unknown, Verified 07/22/24 21:12) Unknown Reaction Asebuma-WRJ-IuI Reductase Inhibitor (Youzzdx-Mfw-Pcz Reductase Inhibitor) Allergy (Unknown, Verified 07/22/24 21:12) [...] % (Auto) 17.6 % (.) 07/22/24 21:10 [place] % (Auto) 5.3 % (.) 07/22/24 21:10 Eos % (Auto) 0.9 % (.) 07/22/24 21:10 Baso % (Auto) 0.8 % (.) 07/22/24 21:10 Nucleat RBC Rel Count 0.1 /100 WBC (0-0.5) 07/22/24 21:10 Neut # (Auto) 7.4 x10E3/uL (1.8-7.7) 07/22/24 21:10 Lymph # (Auto) 1.7 x10E3/uL (1.00-4.8) 07/22/24 21:10 [place] # (Auto) 0.5 x10E3/uL (0.0-0.8) 07/22/24 21:10 [...] pH 8.0 (5.0-9.0) 07/22/24 21:55 Ur Specific [place] 1.025 (1.001-1.030) 07/22/24 21:55 Urine Protein Negative [...] 75 Documented By: Jon Felder MD 07/22/24 1921 Signed By: 07/23/24 0148 [facility]04-27-2025 [place] [address] Hospitalist H&P Signed Patient: Janelle Burt MR#: [id number] : 1940 Acct:[id number] Age/Sex: 83 / F Adm Date: 5 Loc: Room: [address] [place] [address] Type: ADM IN Attending Dr: Jon Felder [...] status and Unobtainable due to mental condition [facility] Medical History Ischemic cerebral vascular accident [...] stage 3 unspecified Cervical cancer 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 Bronchitis, not specified as acute or [...] Allergy (Unknown, Verified 07/22/24 21:12) Unknown Reaction Gilcycn-XSO-EsW Reductase Inhibitor (Maynmvr-Hnu-Ncm Reductase Inhibitor) Allergy (Unknown, Verified 07/22/24 21:12) [...] % (Auto) 17.6 % (.) 07/22/24 21:10 [place] % (Auto) 5.3 % (.) 07/22/24 21:10 Eos % (Auto) 0.9 % (.) 07/22/24 21:10 Baso % (Auto) 0.8 % (.) 07/22/24 21:10 Nucleat RBC Rel Count 0.1 /100 WBC (0-0.5) 07/22/24 21:10 Neut # (Auto) 7.4 x10E3/uL (1.8-7.7) 07/22/24 21:10 Lymph # (Auto) 1.7 x10E3/uL (1.00-4.8) 07/22/24 21:10 [place] # (Auto) 0.5 x10E3/uL (0.0-0.8) 07/22/24 21:10 [...] pH 8.0 (5.0-9.0) 07/22/24 21:55 Ur Specific [place] 1.025 (1.001-1.030) 07/22/24 21:55 Urine Protein Negative [...] 75 Documented By: Jon Felder MD 07/22/24 2814 Signed By: 07/23/24 0148 [facility]04-27-2025 Evaluation note* Diagnosis Onset Date Resolution Status [...] right eye acute August 07, 2024 1:49pm [facility] Work Phone: 1(509) [phone] Evaluation note* Diagnosis Onset Date Resolution Status [...] Left leg pain acute August 29 2:19pm [facility] Work Phone: 1([phone]) 528-833804-27-2025 Evaluation note* Diagnosis Onset Date Resolution Status [...] tract infection) acute September 20, 2024 10:35am [facility] Work Phone: [phone] Telephone encounter Note* Telephone Encounter - Marina [...] her daughter Lesly will call to reschedule. [facility] Work Phone: 1(565) 504-583503-31-2025 Miscellaneous Notes* Telephone Encounter - Marina Burt [...] to fast for this. Labwork resent to [facility] per patient request. The patent states that her daughter Lesly will call to reschedule. documented in this encounterSaint Louis University Health Science [id number] History of Present illness Narrative* Michael Ramos, [...] ) Objective Physical Exam Allergies Clonidine, Methylprednisolone, Idnohbw-cox-scd reductase inhibitors, Tati inhibitors, Amlodipine, Hydralazine, Lisinopril, [...] exam, discussion and plan. documented in this [facility] Work Phone: 1(871) [phone] Instructions* Patient Instructions* Anamaria Pichardo LPN - [...] are within normal range. documented in this [facility] Work Phone: 1([phone]) 128-311002-24-2025 Evaluation note* Diagnosis Onset Date Resolution Status Admit Date Atrial fibrillation acute 2024 1:28pm CKD (chronic kidney disease) stage 3, GFR 30-59 ml/min acute 2024 1:28pm CVA (cerebral vascular accident) acute May 22 1:28pm Hypertension acute April 1:28pm Seizure acute July 22 11:31pm [facility] Work Phone: 1([phone]) 106-512702-24-2025 Evaluation note* Diagnosis Onset Date Resolution Status [...] tract infection) acute July 22, 2024 11:31pm [facility] Work Phone: 1(830) 984-171202-24-2025 Evaluation note* Diagnosis Onset Date Resolution Status [...] Altered mental status resolved Apr 2024 6:01pm [facility] Work Phone: [phone] 263-661302-24-2025 Evaluation note* Diagnosis Onset Date Resolution Status [...] 6:01pm Seizure acute August 07, 2024 1:49pm [facility] Work Phone: 1([phone] 468-457801-08-2025 History of Present illness Narrative* Michael Ramos, DO - 04/05/2024 10:30 AM EST Subjective Janelle Burt is a 83 y.o. female Chief Complaint Follow-up; Blood Pressure Check 83-year-old female here primarily for blood pressure check however in the interim she is developed an occipital stroke that was recognized by I believe her nutrition teacher, transferred to [facility], confirmed. Subsequent monitoring revealed 2 episodes of [...] ) Objective Physical Exam Allergies Clonidine, Methylprednisolone, Olrhszm-wej-jwq reductase inhibitors, Tati inhibitors, Amlodipine, Hydralazine, Lisinopril, [...] Cerebrovascular accident (CVA), unspecified mechanism (Multi) 3. MCFP current use of anticoagulant therapy 4. Paroxysmal [...] exam, discussion and plan. documented in this [facility] Work Phone: 1([phone]) 841-477801-08-2025 Instructions* Patient Instructions* Anamaria Pichardo LPN - [...] time of your visit. documented in this encounterUniversity [facility] Work Phone: 1(715) 651-360601-07-2025 History of Present illness Narrative* Amanda Bray NP - 04/04/2024 1:40 PM EST Images from the original note were not included. Chief Complaint Patient presents with Hospital Follow-up Stroke Subjective Janelle Burt is a 83 y.o. female. History of Present Illness The patient presents today for follow-up. She is accompanied by her daughter, Lesly. She was hospitalized at [facility] ([facility]) from 03/06/2024 to 03/07/2024. The patient was evaluated by her nutrition teacher on 03/06/2024, and they noted a new visual field defect, specifically left homonymous hemianopia. She was subsequently referred to [facility] emergency department for stroke work up. The [...] 40 MG tablet; Commonly known as: Lipitor mdzocfypdm-szhypeuxzxmou-obplrezw 50-300-40 MG capsule; Commonly known as: Fioricet [...] wrist extensors , wrist flexor , and contract modeler strength 5/5. LUE strength deltoid , biceps , triceps , wrist extensors , wrist flexor , and contract modeler strength 5/5. RLE strength iliopsoas, quadriceps, tibialis [...] reflex 1+. LLE knee reflex 1+. Coordination: Yljzgt-bo-ircj testing normal. Rapid alternating movements are normal. [...] of the vertebrobasilar circulation with small caliber obstetrics gynecology physician without distinct focal high-grade proximal stenosis of the obstetrics gynecology physician. Multilevel degenerative changes in the cervical spine. MRI of the brain without contrast on 03/06/2024: Small areas of recent appearing infarcts superimposed on larger area of chronic infarct in the right occipital region, especially within the periventricular region. Suspected mild to moderate chronic microvascular ischemia. Mild to moderate generalized volume loss. CT of the brain without contrast on 03/06/2024: Emfo-ie-kuwbzfcy cerebral atrophy. Chronic ischemicwhite matter disease. Age [...] ischemic stroke. The patient was transferred to [facility] Emergency Department from her ophthalmology appointment [...] [facility] documented in this [facility]01-07-2025 Instructions* Patient Instructions* Amanda Bray NP - 04/04/2024 1:40 PM EST - Check labs documented in this [facility]12-17-2024 Evaluation note* Diagnosis Onset Date Resolution [...] 10:22am Hyponatremia acute February 10:22am Hypoparathyroidism acute [facility] er 2023 10:22am [facility] Work Phone: 1([phone]) 129-514912-10-2024 Hospital Discharge instructions Patient Education 03/07/2024 14:42:18 Atrial Fibrillation, Mtlt-eb-Kwqz Atrial Fibrillation Atrial fibrillation (AFib) is a [...] Follow these instructions at home: Medicines Take hpww-dpz-glkagea and prescription medicines only as told by [...] provider. Document Revised: 12/02/2022 Document Reviewed: 12/02/2022 [employer] Patient Education 2023 [employer]. 03/07/2024 14:42:15 Core Measures: Stroke (Cerebrovascular Accident) [facility], (CUSTOM) Stroke (Cerebrovascular Accident) A stroke is [...] factors for stroke, work with your health health care liaison to control them. High Blood Pressure: High [...] Please call [facility] at [phone] ([facility]), or [phone], ext. [phone] Diabetes: Work with your healthcare professional to [...] cholesterol diet, you can call our Yvonne wood window and door craftsman at [phone] Ext. [phone]. The goal for total cholesterol is less [...] your risk of stroke with your health health care liaison. TREATMENT TIME IS OF THE ESSENCE! Medications [...] Measures will be takento prevent short and residential complications, including aspiration pneumonia, blood clots in [...] for more information on strokes, log onto www.[email or web address] or www.[email or web address].org or call the [place] [employer] at (654) 069- [phone]. Revised 03/2018 Follow Up Care 03/06/2024 14:50:37 With:ANTONINO GUSTAFSON MD, FAM Address: [address] [place] [address]- When:5 to 7 days Comments:Call for followup appointment to talk about switching from Eliquis to Coumadin once you are out of Eliquis With:Kamar Escobar MD, NEU Address: [address] [address]- When:2 to 4 weeks [facility] 12-10-2024 NoteDischarge Summary Admission and Discharge Information Admitting Physician - Willie Keraney DO Consulting Physician - Kamar Escobar MD Admitting Diagnoses: Discharge Order Date Discharge Patient - Ordered -- 03/07/24 14:45:00 EST Discharge Diagnoses 1. CVA (cerebrovascular accident), 03/06/2024 2. HTN (hypertension), 03/06/2024 3. Hypothyroidism, 03/06/2024 4. A-fib, 03/06/2024 5. Hyperlipidemia, 03/06/2024 Vision changes, 03/06/2024 Hospital Course 83-year-old female with recent diagnosis of A-fib, hypertension, hypothyroid presented to ER on 03/06 after being seen by nutrition teacher due to visual field defects. Per patient [...] EST, Stroke, Consult and Co-manage Consult to Spindle Plumber - Ordered -- 03/06/24 23:07:42 EST Physical [...] KASH MUÑIZ Within 5 to [address] [place] [address]- Additional Instructions: Call for followup appointment to talk about switching from Eliquis to Coumadin once you are out of Roxana Escobar MD, YVES Galvin Within 2 to [address] [address]- Additional Instructions: Patient Education Atrial Fibrillation, Towc-dg-Vzjj Core Measures: Stroke (Cerebrovascular Accident) [facility], ([facility]:Result Comment: Electronically Signed By: Michael Worthington DO\.br\Date and Time Signed: 03/07/24 15:01 [id number] Evaluation + Plan noteExtracted from: Title:Discharge Note [...] MD, FAM Within 5 to [address] [place] [address]- Additional Instructions: Call for followup appointment to talk about switching from Eliquis to Coumadin once you are out of Eliquis Shawn MORA, YVES Galvin Within 2 to [address] [address]- Additional Instructions: Atrial Fibrillation, Hemi-ck-Jzkf Core Measures: Stroke (Cerebrovascular Accident) [facility], (CUSTOM) Extracted from: Title:Consult Note- Neurology Author:Nery Mace RN Date:03/07/24 ASSESSMENT: 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 There is some developing encephalomalacia that makes the stroke appear subacute to chronic, but there are still some peripheral diffusion weighted signal changes that could suggest acute on chronic ischemia. In early January she had CT images at [facility] that reportedly did not show any concerns. And she cannot quite pin down when her visual issues started. So it is hard to know how old the stroke is. Etiology either relates to arteriopathy such as ROOF CEMENT AND PAINT MAKER occlusion on the right or her atrial fibrillation. I do not have any angiography yet. PLAN: 1. Apixaban has been started here 2. CTA of head and neck 3. Transthoracic echocardiogram pending 4. She has chronically taken aspirin 81 mg daily at home. If the CTA studies show significant atherosclerotic disease or a ROOF CEMENT AND PAINT MAKER occlusion then I would recommend she [...] atrial fibrillation) - New Dx per outpatient secretary administrative assistant, Dr Ramos - Mildly Bradycardic in the [...] Education Stroke Quality Measures Vital Signs Weight [facility] 12-10-2024 NoteEchocardiology Procedure Exam Date/Time Accession # Ordering Echo Transthoracic 03/07/2024 10:05 [facility] [id number] Abdulkadir Amaro DO Complete CPT code 71171 Reason for Exam (Echo Transthoracic Complete) CVA Report [facility] [address] [place] [address] Adult Echocardiogram Report Name: JANELLE BURT Study Date: 03/07/2024 09:18 AM BP: 173/67 mmHg Patient Location: [address] [place] [address] Bed(s) [facility] HR: 95 : 1940 Gender: Female Height: 65.5 in Age: 83 yrs Ethnicity: T Weight: 137 lb Reason For Study: CVA BSA: 1.7 m2 History: Hypertension, Atrial Fibrillation Ordering Physician: Abdulkadir Amaro Performed By: Ya Wyatt, [facility] Interpretation Summary The left ventricle is [...] no pleural effusion noted on this exam. [facility] No comparison study is [...] Chance Dennison MD Transcribed by: JOLENE Technologist: [facility]12-10-2024 Note Consultation Note Chief Complaint Headache, vision [...] was seen at the emergency department in [place], I believe family was concern for stroke, [...] both correctly = 0 Open and close eyes/contract modeler release hand: Obeys both correctly = 0 [...] early January she had CT images at [facility] that reportedly did not show any concerns. And she cannot quite pin down when her visual issues started. So it is hard to know how old the stroke is. Etiology either relates to arteriopathy such as ROOF CEMENT AND PAINT MAKER occlusion on the right or her atrial fibrillation. I do not haveany angiography yet. PLAN: 1. Apixaban has been started here 2. CTA of head and neck 3. Transthoracic echocardiogram pending 4. She has chronically taken aspirin 81 mg daily at home. If the CTA studies show significant atherosclerotic disease or a ROOF CEMENT AND PAINT MAKER occlusion then I would recommend she [...] 1 tab(s), Oral, B (more content not included)...[facility] CenterComment on above:Result Comment: Electronically Signed By: Nery Mace RN\.br\Date and Time Signed: 03/07/24 07:04 EST\.br\Electronically Co-Signed By: Abdulkadir Amaro DO\.br\Date and Time Co-Signed: 03/07/24 09:43 EST\.br\Electronically Co-Signed By: Nery Mace RN [id number] NoteConsultation Note Chief Complaint Headache, vision issues [...] was seen at the emergency department in [place], I believe family was concern for stroke, [...] both correctly = 0 Open and close eyes/contract modeler release hand: Obeys both correctly = 0 [...] early January she had CT images at [facility] that reportedly did not show any concerns. And she cannot quite pin down when her visual issues started. So it is hard to know how old the stroke is. Etiology either relates to arteriopathy such as ROOF CEMENT AND PAINT MAKER occlusion on the right or her atrial fibrillation. I do not haveany angiography yet. PLAN: 1. Apixaban has been started here 2. CTA of head and neck 3. Transthoracic echocardiogram pending 4. She has chronically taken aspirin 81 mg daily at home. If the CTA studies show significant atherosclerotic disease or a ROOF CEMENT AND PAINT MAKER occlusion then I would recommend she [...] 1 tab(s), Oral, B (more content not included)...[facility] CenterComment on above:Result Comment: Electronically Signed By: Nery Mace RN\.br\Date and Time Signed: 03/07/24 07:04 EST\.br\Electronically Co-Signed By: Abdulkadir Amaro DO\.br\Date and Time Co-Signed: 03/07/24 09:43 [id number] NoteInterdisciplinary Note - PT PT Evaluation done this date. Pt. with on AM-PAC this date. No further PT needs but may benefit from outpatient OT for vision issues.[facility]12-[facility] NoteHistory and Physical Chief Complaint [...] the ED on the advice of her nutrition teacher due to visual field deficits and concern for CVA. The patient has an unusual recent medical course. She had an outpatient workup per her secretary administrative assistant with a Holter monitor late in December. [...] they took her to the ED in [place] due to a severe headache. Workup was [...] the left eye. She presented to her nutrition teacher today for evaluation of her vision and [...] 15:17:00) Lymph Auto: 25 % (03/06/24 15:17:00) [place] Auto: 10.2 % (03/06/24 15:17:00) Eos Auto: 1 % (03/06/24 15:17:00) Basophil Auto: 0.8 % (03/06/24 15:17:00) Neutro Absolute: 5.4 E9/L (03/06/24 15:17:00) Lymph Absolute: 2.2 E9/L (03/06/24 15:17:00) [place] Absolute: 0.9 E9/L (03/06/24 15:17:00) Eos Absolute: [...] 15:17:00) CO2: 29 mmol/L (more content not included)...[facility] CenterComment on above:Result Comment: Electronically Signed By: Lian [...] minimal work up. Advised to go to [facility] ED for CVA workup documented in this encounterSaint Louis University Health Science [id number] History of Present illness Narrative* Michael Ramos, - 01/18/2024 10:40 AM EDT Subjective Janelle Burt is a 83 y.o. female Chief Complaint Follow-up 83-year-old female returns for routine follow-up and is doing very well. She is overall improved from her hospitalization last year. She was hospitalized for transient atrial fibrillation, accelerated hypertension, small non-ST elevation DC. Catheterization reviewed today, at that time revealed [...] normal. Judgment: Judgment normal. Allergies Clonidine, Methylprednisolone, Bhopvqz-cfm-tjw reductase inhibitors, Tati inhibitors, Amlodipine, Hydralazine, Lisinopril, [...] the direction and in the presence of Elizaebth Ramos DO. Provider Attestation - Scribe documentation All medical record entries made by the Scribe were at my direction and personally dictated by me. Dwain reviewed the chart and agree that the record accurately reflects my personal performance of the history, physical exam, discussion and plan. documented in this encounterUniversity [facility]als [facility] Work Phone: 1(175) 671-671010-22-2024 Instructions* Patient Instructions* Leslie Spence LPN - [...] time of your visit. documented in this encounterUniversity Hospitals [facility] Work Phone: 1([phone]) 187-236809-20-2024 Evaluation note* Diagnosis Onset Date Resolution Status Admit Date CKD (chronic kidney disease) stage 3, GFR 30-59 ml/min acute 2023 10:51am Hypothyroid acute November 10:51am Rhinorrhea acute November 10:51am Impacted cerumen of both ears acute December 22, 2023 1:11pm [facility] Work Phone: 1([phone]) 722-714402-20-2024 History of Present illness Narrative* Michael Ramos [...] normal. Judgment: Judgment normal. Allergies Clonidine, Methylprednisolone, Nfxxjoy-qqv-oio reductase inhibitors, Tati inhibitors, Amlodipine, Hydralazine, Lisinopril, [...] exam, discussion and plan. documented in this encounterUniversity Hospitals [facility] Work Phone: 1(357) 278-529602-20-2024 Instructions* Patient Instructions* Abi Veronica LPN - [...] time of your visit. documented in this encounterUniversity Hospitals [facility] Work Phone: 1([phone]) 228-704812-13-2023 Evaluation + Plan note* Assessment & Plan Note - RYANNE Neumann - 03/10/2023 1:57 PM ESTAssociated Problem(s): Chronic renal disease, stage III (CMS/HCC) Recent creatinine 1.4 Follows annually with nephrology [facility] Work Phone: 1([phone]) 549-389212-13-2023 Evaluation + Plan note* Assessment & Plan Note - RYANNE Neumann - 03/10/2023 1:57 PM ESTAssociated Problem(s): Cardiac and Vasculature January 2023 hospitalization due to jaw pain and accelerated hypertension January 28, 2023 cardiac cath with insignificant coronary artery disease (No formal report, taken from discharge summary) [facility] Work Phone: 1([phone]) 278-344412-13-2023 Evaluation + Plan note* Assessment & Plan Note - RYANNE Neumann - 03/10/2023 1:57 PM ESTAssociated Problem(s): Paroxysmal atrial fibrillation (CMS/HCC) Remote history of transient event Recurrent transient atrial fibrillation during January 2023 hospitalization Reports being symptomatic and shaking inside Denies any recurrence [facility] Work Phone: 1([phone]) 522-733212-13-2023 Miscellaneous Notes* Assessment & Plan Note - [...] office with recent changes documented in this encounterUniversity Hospitals [facility] Work Phone: 1([phone]) 126-907512-13-2023 Evaluation + Plan note* Assessment & Plan Note - RYANNE Neumann - 03/10/2023 1:56 PM ESTAssociated Problem(s): Accelerated hypertension Optimal in office with recent changes [facility] Work Phone: [phone] 862-554112-13-2023 History of Present illness Narrative* RYANNE Neumann - 03/10/2023 10:30 AM EST Chief Complaint Getting used to my blood pressure Reason for Visit Patient presents to the office today for outpatient follow-up for hospital follow-up. Last evaluated in clinic by Dr. Ramos December 2022. Patient was recently hospitalized at [facility]. The patient was seen in Cardiology consult with subsequent cardiovascular management by [facility]. Hospitalization records have been reviewed. Reason for Cardiology Consultation: Jaw pain, accelerated hypertension transient atrial fibrillation. Consulting Cage Maker Machine: Dr. Ramos Cardiovascular testing: Cardiac catheterization Changes [...] is in agreement to proceed with 30-day [facility] to assess for A-fib burden. Patient reports [...] Reactions Clonidine Shortness of breath Methylprednisolone Anaphylaxis Ofvbsvu-Gzf-Dww Reductase Inhibitors Myalgia Tati Inhibitors Rash Amlodipine [...] Dr. Ramos 8 weeks Meera Avalos MSN, POWER SYSTEM DISPATCHER-[employer] ACCESS DEVELOPER, PMHNP-[facility] Please excuse any errors in grammar or translation related to this dictation. Voice recognition software was utilized to prepare this document. documented in this [facility] Work Phone: [phone]) 259-562412-13-2023 Instructions* Patient Instructions* RYANNE Neumann - 03/10/2023 [...] Dr. Ramos 8 weeks documented in this encounterUniversity Hospitals [facility] Work Phone: [phone]) 380-978411-29-2023 Evaluation note* Encounter Date Diagnosis Assessment Notes Treatment Notes Treatment Clinical Notes Jan, Hypothyroidism, unspecified (ICD-10 - E03.9) [facility] [employer] Other 11-07-2023 Evaluation note* Encounter Date Diagnosis Assessment Notes Treatment Notes Treatment Clinical Notes Jan, Hypothyroidism, unspecified (ICD-10 - E03.9) Pt requests a med refill for chronic problem. Jan, 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 (ICD-10 - I25.10) Pt notes improvement in symptoms. Has scheduled appt with Cardiology for followup. [employer] [employer] Other 11-03-2023 Hospital Discharge instructions Additional Instructions DISCHARGE INSTRUCTIONS FOR CARDIAC [employer] PHONE NUMBER OF YOUR PHYSICIAN: [phone] PROCEDURE: Heart Cath The following instructions have [...] cold, numb, blue or white, call the secretary administrative assistant immediately. 4. ACTIVITY: You are advised to [...] bottle, follow the instructions on the bottle. [facility] is not responsible for incorrect prescription information provided by the patient during their visit. Do not stop your medications without consulting your health care provider. Please take the list with you to your next doctor's appointment.[facility] Work Phone: 1([phone]) 116-577311-02-2023 Progress note Author Elsa Amin [facility] January 28, 2023 3:27pm Note Date/Time January 28, 2023 3 :27[facility] ENTER [address] [place] [address] Hospitalist Progress Note Signed Patient: Janelle Burt MR#: [id number] : 1940 Acct:[id number] Age/Sex: 82 / F Adm Date: 3 Loc: 3T Room: [address] [place] [address] Type: ADM IN Attending Dr: Elsa Amin [...] Medrol] Allergy (Verified 01/27/23 08:01) Unknown Reaction Nxdumrz-IMR-SjP Reductase Inhibitor [Nzhlfnh-Fvj-Niu Reductase Inhibitor] Allergy (Verified 01/27/23 08:01) Unknown [...] fibrillation. Repeat ECG 1 hour later showed bahai of sinus rhythm with first-degree AV block. Chest x-ray showed linear scarring at the left lung base. -JXD8RS8-GDXg equals 5. Recommend anticoagulation. -BNP elevated to [...] signed by Elsa Amin MD> 01/28/23 1527 [facility] Work Phone: 1([phone]) 461-550011-02-2023 [facility] Consult note Author Sherron Ramos [facility] January 27, 2023 3:48pm Note Date/Time January 27, 2023 3 :36pm [facility] ENTER [address] [place] [address] Cardiology Consult Note Signed Patient: Janelle Burt MR#: [id number] : 1940 Acct:[id number] Age/Sex: 82 / F Adm Date: 3 Loc: 3T Room: [address] [place] [address] Type: ADM INOo Attending Dr: Elsa Amin [...] mild coronary disease by remote heart catheterization [id number] which included renal angiography with no evidence [...] make up place for her on the Hair Spinning Machine Operator schedule tomorrow; if she declines we will arrange outpatient stress imaging on appropriate medical therapy. Review of Systems Review of Systems All other systems reviewed & are negative unless noted below or in HPI Cardiovascular Cardiovascular: Reports as per HPI and Reports radiating jaw, neck or arm pain [facility] Medical History (Updated 01/27/23 @ 15:48 [...] Medrol] Allergy (Verified 01/27/23 08:01) Unknown Reaction [place]-XNX-YfZ Reductase Inhibitor [Fuuxyfu-Fie-Rwa Reductase Inhibitor] Allergy (Verified 01/27/23 08:01) Unknown [...] x10E3/uL Lymph # (Auto) 1.6 (1.00-4.8) x10E3/uL [place] # (Auto) 0.5 (0.0-0.8) x10E3/uL Eos # [...] signed by Sherron Ramos DO> 01/27/23 1548 [facility] Work Phone: 1([phone]) 431-207511-01-2023 History and physical note Author Elsa Amin [facility] January 27, 2023 2:57pm Note Date/Time January 27, 2023 2 :57pm [facility] ENTER [address] [place] [address] Hospitalist H&P Signed Patient: Janelle Burt MR#: [id number] : 1940 Acct:[id number] Age/Sex: 82 / F Adm Date: 3 Loc: Room: [address] [place] [address] Type: ADM INOo Attending Dr: Elsa Amin [...] to sinus rhythm with first-degree AV block. WCM4MT0-OHIj equals 5. She was admitted for further observation and cardiology evaluation. Review of Systems Review of Systems All other systems reviewed & are negative unless noted below or in HPI Review of systems: Neuro: Reports numbness/tingling in extremities. Denies dizziness/lightheadedness Pulmonary: Denies dyspnea, cough, wheezing. Cardiac: Denies chest pain/pressure, edema, palpitations. GI: Denies abdominal pain, N/V, constipation and diarrhea [facility] Medical History (Updated 01/27/23 @ 11:21 [...] Medrol] Allergy (Verified 01/27/23 08:01) Unknown Reaction Dfkqdcx-TWM-KdA Reductase Inhibitor [Ybxkoqz-Lln-Mhz Reductase Inhibitor] Allergy (Verified 01/27/23 08:01) Unknown [...] % (Auto) 23.7 % (.) 01/27/23 08:12 [place] % (Auto) 7.4 % (.) 01/27/23 08:12 Eos % (Auto) 1.7 % (.) 01/27/23 08:12 Baso % (Auto) 1.0 % (.) 01/27/23 08:12 Nucleat RBC Rel Count 0.1 /100 WBC (0-0.5) 01/27/23 08:12 Neut # (Auto) 4.6 x10E3/uL (1.8-7.7) 01/27/23 08:12 Lymph # (Auto) 1.6 x10E3/uL (1.00-4.8) 01/27/23 08:12 [place] # (Auto) 0.5 x10E3/uL (0.0-0.8) 01/27/23 08:12 [...] fibrillation. Repeat ECG 1 hour later showed bahai of sinus rhythm with first-degree AV block. Chest x-ray showed linear scarring at the left lung base. -XWY8IO4-GCEr equals 5. Recommend anticoagulation. -BNP elevated to [...] <Electronically signed by Elsa Amin MD> 01/27/23 9054 [facility] Work Phone: 1([phone]) 267-107410-09-2023 Evaluation note* Encounter Date Diagnosis Assessment Notes [...] PCP for lipid profile and LFTs monitoring [employer] [employer] Other 08-08-2023 Evaluation note* Encounter Date Diagnosis [...] adequately controlled. Oct, Other She is establis [facility] w podiatry for her foot fracture. [employer] Other 03-16-2023 Evaluation note* Encounter Date Diagnosis [...] supplement. We will continue to monitor PTH. [employer] Other 09-12-2022 Evaluation note* Encounter Date Diagnosis [...] supplement. We will continue to monitor PTH. [employer] Other 03-03-2022 Evaluation note* Encounter Date Diagnosis [...] primary polydipsia. She drinks plenty of fluids. [employer] Other Evaluation noteNo assessment information available [facility] Work Phone: Evaluation note* Diagnosis Onset Date Resolution Status Atrial fibrillation acute Back pain with radiation acu te Hypertension acute Hypothyroid acute [facility] Work Phone: Evaluation note* Diagnosis Onset Date Resolution Status Atrial fibrillation acute Back pain with radiation acu te Chest pain acute Elevated troponin acute Hypertension acute Hypothyroid acute NSTEMI (non-ST elevated myocardial infarction) acute [facility] Work Phone: Evaluation noteNo [employer] Other Evaluation note* Diagnosis Paroxysmal atrial fibrillation (CMS/HCC)- Primary Atrial fibrillation Chest pain, unspecified type Accelerated hypertension Essential hypertension, malignant Stage 3a chronic kidney disease (CMS/HCC) BMI 22.0-22.9, adult documented in this encounter [facility] Work Phone: Evaluation note* Diagnosis Paroxysmal atrial fibrillation (CMS/HCC) Atrial fibrillation Accelerated hypertension Essential hypertension, malignant Mixed hyperlipidemia Stage 3b chronic kidney disease (CMS/HCC) documented in this encounter [facility] Work Phone: Evaluation note* Diagnosis Onset Date Resolution Status Atrial fibrillation acute CKD (chronic kidney disease) stage 3, GFR 30-59 ml/min acute Hyperlipidemia acute [id number] acute Hyponatremia acute Hypoparathyroidism acute [facility] Work Phone: Evaluation note* Diagnosis Onset Date Resolution Status Hypothyroid acute [facility] Work Phone: Evaluation note* Diagnosis Paroxysmal atrial fibrillation (Multi)- Primary Atrial fibrillation Chest pain, unspecified type Accelerated hypertension Essential hypertension, malignant Stage 3a chronic kidney disease (Multi) BMI 22.0-22.9, adult Accelerated hypertension Essential hypertension, malignant ASHD (arteriosclerotic heart disease) Coronary atherosclerosis of unspecified type of vessel, cherokee or graft Paroxysmal atrial fibrillation (Multi) Atrial fibrillation Former smoker Personal history of tobacco use, presenting hazards to health Body mass index (BMI) 23.0-23.9, adult documented in this encounter [facility] Work Phone: Evaluation note* Diagnosis Homonymous hemianopia, left- Primary Cerebrovascular accident (CVA), unspecified mechanism (CMS/HCC) documented in this encounter [facility] HealthcareEvaluation note* Diagnosis Paroxysmal atrial fibrillation (Multi)- Primary Atrial fibrillation Chest pain, unspecified type Accelerated hypertension Essential hypertension, malignant Stage 3a chronic kidney disease (Multi) BMI 22.0-22.9, adult Accelerated hypertension Essential hypertension, malignant Cerebrovascular accident (CVA), unspecified mechanism (Multi) [facility] current use of anticoagulant therapy Paroxysmal atrial fibrillation (Multi) Atrial fibrillation ASHD (arteriosclerotic heart disease) Coronary atherosclerosis of unspecified type of vessel, cherokee or graft Mixed hyperlipidemia BMI 22.0-22.9, adult Former smoker Personal history of tobacco use, presenting hazards to health TATI inhibitor intolerance Statin intolerance documented in this encounter [facility] Work Phone: Evaluation note* Diagnosis Ischemic stroke (CMS/HCC)- Primary Visual field defect Unspecified visual field defect Hypertension, unspecified type ([facility]) Encounter for medication monitoring Encounter for therapeutic drug monitoring Paroxysmal atrial fibrillation ([facility]) Atrial fibrillation Altered mental status, unspecified altered mental status type documented in this encounter [facility] HealthcareEvaluation note* Diagnosis Paroxysmal atrial fibrillation (Multi)- Primary Atrial fibrillation Chest pain, unspecified type Accelerated hypertension Essential hypertension, malignant Stage 3a chronic kidney disease (Multi) BMI 22.0-22.9, adult Accelerated hypertension Essential hypertension, malignant documented in this encounter [facility] Work Phone: Evaluation note* Diagnosis Homonymous hemianopia, left- Primary Right posterior capsular opacification Unspecified after-cataract Dry eyes Unspecified tear film insufficiency documented in this encounter [facility] HealthcareEvaluation note* Diagnosis Paroxysmal atrial fibrillation (Multi)- Primary Atrial fibrillation Chest pain, unspecified type Accelerated hypertension Essential hypertension, malignant Stage 3a chronic kidney disease (Multi) BMI 22.0-22.9, adult ASHD (arteriosclerotic heart disease) Coronary atherosclerosis of unspecified type of vessel, cherokee or graft Paroxysmal atrial fibrillation (Multi) Atrial fibrillation Renal artery stenosis Atherosclerosis of renal artery [facility] current use of anticoagulant therapy Essential hypertension Unspecified essential hypertension BMI 23.0-23.9, adult Former smoker Personal history of tobacco use, presenting hazards to health documented in this encounter [facility] Work Phone: Evaluation note* Diagnosis Paroxysmal atrial fibrillation (Multi)- Primary Atrial fibrillation Chest pain, unspecified type Accelerated hypertension Essential hypertension, malignant Stage 3a chronic kidney disease (Multi) BMI 22.0-22.9, adult Essential hypertension Unspecified essential hypertension Former smoker Personal history of tobacco use, presenting hazards to health BMI 22.0-22.9, adult documented in this encounter [facility] Work Phone: Evaluation note* Diagnosis Onset Date Resolution Status Admit Date CVA (cerebral vascular accident) acu te January 03, 2025 1:05pm Metabolic encephalopathy acute January 03, 2025 1:05pm Seizure acute January 03, 2 025 1:05pm UTI (urinary tract infection) acute January 03, 2025 1:05pm [facility] Work Phone: History and physical note Author Jon Felder [facility] Note Date/Time July 23, 2024 1:4 8am [facility] ENTER [address] [place] [address] Hospitalist H&P Signed Patient: Janelle Burt MR#: [id number] : 1940 Acct:[id number] Age/Sex: 83 / F Adm Date: 5 Loc: Room: [address] [place] [address] Type: ADM IN Attending Dr: Jon Felder [...] status and Unobtainable due to mental condition [facility] Medical History Ischemic cerebral vascular accident [...] stage 3 unspecified Cervical cancer 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 Bronchitis, not specified as acute or [...] Allergy (Unknown, Verified 07/22/24 21:12) Unknown Reaction Frrvyis-PBM-RjK Reductase Inhibitor (Evkxpqp-Wxz-Ruh Reductase Inhibitor) Allergy (Unknown, Verified 07/22/24 21:12) [...] % (Auto) 17.6 % (.) 07/22/24 21:10 [place] % (Auto) 5.3 % (.) 07/22/24 21:10 Eos % (Auto) 0.9 % (.) 07/22/24 21:10 Baso % (Auto) 0.8 % (.) 04/26/25 21:10 Nucleat RBC Rel Count 0.1 /100 WBC (0-0.5) 07/22/24 21:10 Neut # (Auto) 7.4 x10E3/uL (1.8-7.7) 07/22/24 21:10 Lymph # (Auto) 1.7 x10E3/uL (1.00-4.8) 07/22/24 21:10 [place] # (Auto) 0.5 x10E3/uL (0.0-0.8) 07/22/24 21:10 [...] pH 8.0 (5.0-9.0) 07/22/24 21:55 Ur Specific [place] 1.025 (1.001-1.030) 07/22/24 21:55 Urine Protein Negative [...] 75 Documented By: Jon Felder MD 07/22/24 9555 Signed By: <Electronically signed by Jon Felder MD> 07/23/24 0142 [facility] Work Phone: History general Narrative - Reported* Type Description Date Medical History hyperlipidemia Medical History hypertension Medical History cervical cancer Surgical History partial hysterectomy Surgical History appendectomy Surgical History cataract Hospitalization History SEE ABOVE [facility] Other [facility] Narrative - Reported* Type Description Date Medical History hyperlipidemia Medical History hypertension Medical History cervical cancer Surgical History partial hysterectomy Surgical History appendectomy Surgical History cataract Surgical History TORN RETINA IN LEFT EYE Hospitalization History SEE ABOVE [facility] [employer] Other [facility] Narrative - Reported* Type Description Date Medical History hyperlipidemia Medical History hypertension Medical History cervical cancer Surgical History partial hysterectomy Surgical History appendectomy Surgical History cataract Surgical History TORN RETINA IN LEFT EYE Surgical History Heart Cath 01/2023 Hospitalization History SEE ABOVE [place] [facility] [facility] [employer] Other History of Present illness Narrative* The [...] Narrative No data available for this section [facility] Progress note No data available for this section [facility] Reason for referral (narrative)* Consultation (Routine) - Authorized Specialty Diagnoses / Procedures Referred By Contac t Referred To Contact Cardiology Diagnoses Paroxysmal atrial fibrillation (CMS/HCC) Procedures Follow Up In Cardiology Meera Avalos POWER SYSTEM DISPATCHER-[employer] ACCESS DEVELOPER [address] [place] [address] Michael Ramos, DO [address] [place] [address] Referral ID Status Reason Start Date Expiration Date V isits Requested Visits Authorized [id number] Authorized 03/10/2023 03/09/2024 1 1 Electronically signed by Meera Avalos POWER SYSTEM DISPATCHER-[employer] ACCESS DEVELOPER at 03/10/2023 10:52 AM EST * Cardiovascular (Routine) - Pending Review Specialty Diagnoses / Procedures Referred By Contac t Referred To Contact Cardiology Diagnoses Paroxysmal atrial fibrillation (CMS/HCC) Procedures Holter Or Event Clinic Supervisor Meera Avalos POWER SYSTEM DISPATCHER[employer] ACCESS DEVELOPER [address] [place] [address] Referral ID Status Reason Start Date Expiration Date V isits Requested Visits Authorized [id number] Pending Review 03/10/2023 03/09/2024 1 1 Electronically signed by Meera Avalos POWER SYSTEM DISPATCHER-[employer] ACCESS DEVELOPER at 03/10/2023 10:52 AM EST [facility] Work Phone: Reejym for referral (narrative)* Consultation (Routine) - Authorized Specialty Diagnoses / Procedures Referred By Contac t Referred To Contact Cardiology Diagnoses Paroxysmal atrial fibrillation (CMS/HCC) Procedures Follow Up In Cardiology Michael Ramos, DO [address] [place] [address] Meera Avalos POWER SYSTEM DISPATCHER[employer] ACCESS DEVELOPER [address] [place] [address] Referral ID Status Reason Start Date Expiration Date V isits Requested Visits Authorized [id number] Authorized 05/18/2023 05/17/2024 1 1 [facility] Work Phone: Reason for referral (narrative)No reason for referral information availableSt. [facility] Work Phone: Chief Complaint JANELLE BURT [...] sister has been taking care of her [employer]. She has underlying accelerated hypertension, known chronic [...] sister has been taking care of her [employer]. She has underlying accelerated hypertension, known chronic [...] disease) stage 3, GFR 30-59 ml/min Hyperlipidemia [id number] Hyponatremia Hypoparathyroidism Chief Complaint routine Reason for [...] Date Amb Documentation March 08, 2024 9:54am [facility] follow up/ stroke March 14 1:37pm RENAL [...] 3:16pm Amb Documentation August 03, 2024 8:49am [facility] [place]u-[place]IS[place] August 07, 2024 1:49p m [...] 6:0 1pm Impaired mobility and activities of ial y living July 25, 2024 6:01pm Seizure [...] 3:16pm Amb Documentation August 03, 2024 8:49am [facility] [place]/u-[place] RIS[place] August 07, 2024 1:49p m [...] 3:16pm Amb Documentation August 03, 2024 8:49am [facility] [place] f/u-H[place] RISK August 07, 2024 1:49p m Amb Documentation August 16, 2024 9:04a m Amb Documentation August 16, 2024 9:08a m [facility] f/u-HIGH RISK August 29, 2024 [...] section and content) Reason Comments Hospital Follow[place] [facility] [place] Specialty Diagnoses / Procedures Referred By Contac t Referred To Contact Cardiology Diagnoses Chest pain, unspecified type Procedures Follow Up In Cardiology Michael Ramos, DO [address] [facility] [address], [address] [address] Michael Ramos, DO [address] [facility] [address], [address] [address] Referral ID Status Reason Start Date Expiration Date V isits Requested Visits Authorized [id number] Authorized 01/28/2023 01/28/2024 1 1 Reason Comments Follow-up Never had HANNA comple chacho. Specialty Diagnoses / Procedures Referred By Contac t Referred To Contact Cardiology Diagnoses Paroxysmal atrial fibrillation (CMS/HCC) Procedures Follow Up In Cardiology Meera Avalos, POWER SYSTEM DISPATCHER-[employer] ACCESS DEVELOPER [address] [facility] [address], [address] [address] Michael Ramos, DO [address] [facility] [address], [address] [address] Referral ID Status Reason Start Date Expiration Date V isits Requested Visits Authorized [id number] Authorized 03/10/2023 03/09/2024 1 1 Reason Comments Follow-up 1 year Specialty Diagnoses / Procedures Referred By Contac t Referred To Contact Cardiology Diagnoses Accelerated hypertension Procedures Follow Up In Cardiology Michael Ramos DO Phone: tel: fax: Michael Ramos DO Phone: tel: fax: Referral ID Status Reason Start Date Expiration Date V isits Requested Visits Authorized [id number] Authorized 01/14/2023 01/14/2024 1 1 Reason Comments Decreased Visual Acuity Reason Comments Follow-up 10 w bp Blood Pressure Check Specialty Diagnoses / Procedures Referred By Contac t Referred To Contact Cardiology Diagnoses Accelerated hypertension Procedures Follow Up In Cardiology RichardMichael, DO [address] [facility] [address], [address] [address] Phone: tel: fax: Michael Ramos, DO [facility] [facility] [address], [address] [address] Phone: tel: fax: Referral ID Status Reason Start Date Expiration Date V isits Requested Visits Authorized [id number] Authorized 01/18/2024 01/17/2025 1 1 Reason Comments Hospital Follow-up Stroke Reason Comments Blood Pressure Check Specialty Diagnoses / Procedures Referred By Contac t Referred To Contact Cardiology Diagnoses Accelerated hypertension Procedures Follow Up In Cardiology Michael Ramos, DO [facility] [facility] [address], [address] [address] Phone: tel: fax: Michael Ramos, DO [facility] [address], [address] [address] Phone: tel: fax: Referral ID Status Reason Start Date Expiration Date V isits Requested Visits Authorized [id number] Authorized 04/05/2024 04/05/2025 1 1 Reason Comments Loss of Vision Reason Comments Follow-up 8 month arterioscler otic heart diease Specialty Diagnoses / Procedures Referred By Contac t Referred To Contact Cardiology Diagnoses ASHD (arteriosclerotic heart disease) Procedures Follow Up In Cardiology Michael Ramos, DO [facility] [facility], [address] [address] Phone: tel: fax: Michael Ramos, DO [facility] [facility], [address] [address] Phone: tel: fax: Referral ID Status Reason Start Date Expiration Date V isits Requested Visits Authorized [id number] Authorized 01/18/2024 01/17/2025 1 1 Reason Comments Follow-up 8 week BP check Specialty Diagnoses / Procedures Referred By Contac t Referred To Contact Cardiology Diagnoses Essential hypertension Procedures Follow Up In Cardiology Michael Ramos, DO [address] [facility] [address], [address] [address] Phone: tel: fax: Michael Ramos, [address] [facility], [address] [place] [address] Phone: tel: fax: Referral ID Status Reason Start Date Expiration Date V isits Requested Visits Authorized [id number] Authorized 09/27/2024 09/27/2025 1 1 Care Teams [...] Start: June 29, 2024 Amanda Bray , POWER SYSTEM DISPATCHER-PRE FABRICATOR-C Attending Provider Active Start: June 29, 2024 [...] End: July 25, 2024 Amanda Bray , POWER SYSTEM DISPATCHER-PRE FABRICATOR-C Other Provider Active Start: July 22, 2024 [...] rt: July 23, 2024 Amanda Bray , POWER SYSTEM DISPATCHER-PRE FABRICATOR-C Other Provider Active Start: July 23, 2024 Sanam Barrientos POWER SYSTEM DISPATCHER ACNP-BC Other Provider Active Start: July 23, [...] rt: July 24, 2024 Amanda Bray , POWER SYSTEM DISPATCHER-PRE FABRICATOR-C Other Provider Active Start: July 24, 2024 Sanam Barrientos POWER SYSTEM DISPATCHER ACNP-BC Other Provider Active Start: July 24, [...] Wilson MD Other Provider Active Start: Ap [facility] 2024 Jhon Abreu MD Other Provider [...] Sta rt: July 24, 2024 Amanda Bray APRN-PRE FABRICATOR-C Other Provider Active Start: July 24, 2024 [...] Wilson MD Other Provider Active Start: Ap [facility] 2024 Jhon Abreu MD Attending Provider, [...] , DO Other Provider Active Start: Ap [facility] 2024 End: August 02, 2024 Maverick [...] Provider Active Start: Jun Ivette Case , HAIR BALER-C Other Provider Active St art: July 26, [...] Start: M ay 2024 Kayla Lacy , POWER SYSTEM DISPATCHER Other Provider Active Start: August 02, 2024 [...] Start: August 02, 2024 Ivette Case , HAIR BALER-C Other Provider Active St art: August 02, 2024 Jose Cochran , POWER SYSTEM DISPATCHER Other Provider Active Star t: August 02, [...] MD Other Provider Active Camryn Bosch , [facility] Other Provider Active Svitlana Reyes MD Other Provider Active Team Status: Inactive Member Role Status Dates Antonino Gustafson MD Primary Care Provider Active Ortiz Cota , DO Emergency Provider Active Team Status: Active Member Role Status Dates Antonino Gustafson MD Primary Care Provider Active Willie Lyon , DO Emergency Provider Active Elsa Amin MD Admit Provider, Attending Provider Active Draw Operator Relationship Specialty Start Date End Date Antonino Gustafson MD PCP - General 03/29/1998 Draw Operator Relationship Specialty Start Date End Date Antonino Gustafson MD [facility] General 03/29/1998 Team Status: Inactive Member Role Status Dates Antonino Gustafson MD Primary Care Provider Active Start: December 22, 2023 End: December 22, 2023 Faby Lira APRN Attending Provider Active S tart: December 22, 2023 End: December 22, 2023 Draw Operator Relationship Specialty Start Date End Date Antonino Gustafson MD [address] [place] [id number] [facility] General 03/29/1998 Team Status: Active Member Role [...] February 17, 2024 End: February 17, 2024 Draw Operator Relationship Specialty Start Date End Date Antonino Gustafson MD [address] [place] [phone] PCP - General Family Medicine 03/06/24 Draw Operator Relationship Specialty Start Date End Date Antonino Gustafson MD [address] [facility] [place] [phone] PCP - General Family Medicine 03/06/24 Draw Operator Relationship Specialty Start Date End Date Antonino Gustafson MD [address] [facility] [place] [address] PCP - General Family Medicine 03/06/24 Draw Operator Relationship Specialty Start Date End Date Antonino Gustafson MD [address] [place] [address] PCP - General 03/29/1998 Draw Operator Relationship Specialty Start Date End Date Antonino Gustafson MD [address] [facility] [place] [phone] PCP - General Family Medicine 03/06/24 Draw Operator Relationship Specialty Start Date End Date Antonino Gustafson MD [address] [place] [address] PCP - General 03/29/1998 Draw Operator Relationship Specialty Start Date End Date Antonino Gustafson MD [address] [facility] [place] [phone] PCP - General Family Medicine 03/06/24 Draw Operator Relationship Specialty Start Date End Date Antonino Gustafson MD [address] [facility] [place] [address] PCP - General Family Medicine 03/06/24 Draw Operator Relationship Specialty Start Date End Date Antonino Gustafson MD [address] [facility] [place] [phone] PCP - General Family Medicine 03/06/24 Team [...] art: July 23, 2024 Marina Burt , HAIR BALER-C Other Provider Active Sta rt: July 23, 2024 Amanda Bray , AIMEE-PRE FABRICATOR-C Other Provider Active Start: July 23, 2024 [...] Start: July 24, 2024 Rochelle Greene , POWER SYSTEM DISPATCHER Other Provider Active St art: July 24, 2024 Marina Burt , HAIR BALER-C Other Provider Active Sta rt: July 24, 2024 Amanda Bray POWER SYSTEM DISPATCHER-PRE FABRICATOR-C Other Provider Active Start: July 24, 2024 Sanam Barrientos POWER SYSTEM DISPATCHER ACNP-BC Other Provider Active Start: July 24, 2024 Guido Torres MD Other Provider Active Start: July 24, 2024 Karan Matias MD Other Provider Active St art: July 24, 2024 Abdlukadir Aguilar MD Other Provider Active Start: A [...] Active S tart: July 24, 2024 Dev Jaocbsen MD Other Provider Active Start: July 24, [...] St art: July 24, 2024 Marina Burt HAIR BALER-C Other Provider Active Sta rt: July 24, 2024 Amanda Bray APRN-PRE FABRICATOR-C Other Provider Active Start: July 24, 2024 [...] July 25, 2024 End: August 02, 2024 aRchel Maldonado , LILIANE Other Provider Active Start: [...] A pril 2024 End: August 02, 2024 Kyala Lacy APRN Other Provider Active Start: July [...] Active Start: Apr il 2024 Ivette Case HAIR BALER-C Other Provider Active St art: July 26, 2024 Jose Cochran POWER SYSTEM DISPATCHER Other Provider Active Star t: July 26, 2024 Curly Smalls MD Other Provider Active Start: July 26, 2024 Yousuf Grcaia MD Other Provider Active Start: Ap ril [...] Provider Active Sta rt: July 26, 2024 Chritsine Perez APRN Other Provider Active Start: July [...] Active Start : August 02, 2024 Yolanda Fnog , LILIANE Other Provider Active Star t: [...] September 25, 2024 End: September 25, 2024 Draw Operator Relationship Specialty Start Date End Date Antonino Gustafson MD [address] [place] [address] [place] [address] PCP - General 03/29/1998 Team Status: Inactive [...] content) DATE CREATED AUTHOR 03/21/2022 [facility] ical Center DATE CREATED AUTHOR AUTHOR'S ORGANIZ ATION 03/21/2022 [employer] DATE CREATED AUTHOR AUTHOR'S ORGANIZ ATION 06/05/2022 [facility] DATE CREATED AUTHOR AUTHOR'S ORGANIZ ATION 03/09/2024 Parada Abel [facility] ical Center DATE CREATED AUTHOR AUTHOR'S ORGANIZ ATION 03/10/2024 Parada Dickens [facility] ical [facility] DATE CREATED AUTHOR AUTHOR'S ORGANIZ ATION 03/11/2024 Parada Dickens [facility] ical [facility] DATE CREATED AUTHOR AUTHOR'S ORGANIZ ATION 08/11/2024 [facility] DATE CREATED AUTHOR AUTHOR'S ORGANIZ ATION 09/05/2024 [facility] EPIC DATE CREATED AUTHOR AUTHOR'S ORGANIZ ATION 11/22/2024 [facility] FOR RECORDS PERTAINING TO PATIENTS WHO [...] BE BASED ON THE PRIMARY CLINICAL RECORDS. [facility] [employer] [facility]. provides no warranty or guarantee of the accuracy or completeness of information in this document.
[2025-01-10] MEDS: LOSARTAN POTASSIUM 50 MG TABLET PO (00:58)
[2025-01-10] MEDS: APIXABAN 5 MG TABLET 2.5 MG PO ×2 (00:58→08:28)
[2025-01-10] MEDS: ATORVASTATIN CALCIUM 40 MG TABLET PO (01:00)
[2025-01-10] MEDS: ASPIRIN 81 MG TABLET.DR PO ×2 (01:00→08:28)
[2025-01-10 05:55] LABS: Hematocrit 35.6 % (36.0-48.0); Hemoglobin 13.0 g/dL (12.0-16.0); Immature Granulocytes Abs Auto 0.01 10^3/uL (0.00-0.03); Immature Granulocytes Pct Auto 0.1 % (0.0-0.5); Lymphocytes Absolute Auto 2.2 10^3/uL (1.2-3.8); Mean Corpuscular HGB Conc 36.5 g/dL (29.9-35.2); Mean Corpuscular Hemoglobin 30.5 pg (26.7-34.0); Mean Corpuscular Volume 83.6 fL (81.0-99.0); Platelet Count 196 10^3/uL (150-450); Red Blood Count 4.26 10^6/uL (4.20-5.40); White Blood Count 7.5 10^3/uL (4.0-11.0)
[2025-01-10 06:13] LABS: Anion Gap 11.2; Blood Urea Nitrogen 21.0 mg/dL (7.0-18.0); Calcium 9.1 mg/dL (8.5-10.1); Carbon Dioxide 26.4 mmol/L (21.0-32.0); Chloride 98 mmol/L (98-107); Cholesterol 141 mg/dL (<=200); Estimated GFR (African America >60 (>=60 mL/min/1.73m^2); Estimated GFR (Non-African Ame 53 (>=60 mL/min/1.73m^2); Glucose 93 mg/dL (74-106); HDL Cholesterol 50 mg/dL (40-60); Magnesium 1.9 mg/dL (1.8-2.4); Potassium 3.6 mmol/L (3.5-5.1); Sodium 132 mmol/L (136-145); Triglycerides 81 mg/dL (<=150); VLDL CHOLESTEROL 16.2 mg/dL
[2025-01-10] MEDS: LOSARTAN POTASSIUM 50 MG TABLET 100 MG PO (06:21)
[2025-01-10] MEDS: HYDRALAZINE HCL 20 MG/ML VIAL 10 MG IVP (06:22)
--- NOTE | 2025-01-10 07:00 | CA_ITS ---
Patient Name: SYMONE BURT MR#: [id number] : 1940 Exam Date: 01/10/2025 Ordering Doctor: CHELSIE PARADA ECHOCARDIOGRAM REPORT PROCEDURE: CA ECHO DOPPLER COMPLETE INDICATIONS: TIA COMPARISON: None. DESCRIPTION: COMPLETE ECHOCARDIOGRAM Real-time transthoracic echocardiography with 2D, M-mode, spectral and color flow Doppler performed. QUALITY: Technical quality was good. LEFT VENTRICLE: Normal chamber size. Mild concentric left ventricular hypertrophy. Normal systolic function. LV EF: Estimated left ventricular ejection fraction is 65-70%. DIASTOLIC: Grade I diastolic dysfunction. ATRIAL SEPTUM: LEFT ATRIUM: Mild dilatation. RIGHT ATRIUM: Normal chamber size. RIGHT VENTRICLE: Normal chamber size. Normal right ventricular systolic function. TRICUSPID VALVE: Normal mobility and thickness. No stenosis with trivial regurgitation. No evidence of pulmonary hypertension. RVSP 32 mmHg. MITRAL VALVE: Normal mobility and thickness. No evidence of mitral valve stenosis. There is no mitral annular calcification. Trivial mitral regurgitation. AORTIC VALVE: Normal trileaflet appearance. Thickened aortic valve. Normal leaflet mobility. No evidence of aortic valve stenosis. Trivial aortic regurgitation. AORTIC ROOT: Normal diameter and appearance, measuring 3.1 cm. The ascending aorta is normal in size measuring 2.9 cm. PULMONIC VALVE: Normal thickness and mobility. No stenosis. Trivial regurgitation. PERICARDIUM: No evidence of pericardial effusion. IVC: Collapses with inspiration. Normal size. PLEURA: CONCLUSION: 1. Mild concentric left ventricular hypertrophy with normal systolic function. LVEF is 65-70%. 2. Normal right ventricular size and systolic function. 3. Grade I diastolic dysfunction. 4. No significant valvular dysfunction. 5. Normal right-sided pressures. Adult Echocardiography Procedure Report Left Ventricle LVEDD (3.7 - 5.6 cm): 4.11 cm LVESD (2.2 - 4.0 cm): 2.27 cm LVIVS thickness (0.6 - 1.2 cm): 1.29 cm LVPW thickness (0.5 - 1.0 cm): 1.18 cm e': 0.06 m/s E - e': 16.39 LVOT Max Gradient: 3.80 mm[Hg] LVOT Area (cm2): 0.97 m/s Peak Velocity (LVOT): 0.97 m/s Mean Velocity (LVOT): 0.63 m/s LVOT Diameter 1.93 cm Left Ventricular Ejection Fraction: 65-70% Left Atrium LA Volume Index (2D A2C): 31.98 ml/m2 Left Atrium Systolic Dimension: 3.54 cm Mitral Valve MV E to A Ratio: 0.87 Mitral Valve A-Wave Peak Velocity: 1.10 m/s Mitral Valve E-Wave Peak Velocity: 0.96 m/s Right Ventricle RV Internal Diastolic Dimension: 3.44 cm Aorta AO Root Diam: 3.07 cm Ascending Ao Diam: 2.92 cm Aortic Valve AoV Area (Peak Gume): 2.73 cm2, 2.73 cm2 AoV Area (VTI): 2.68 cm2, 2.68 cm2 Peak Velocity(Antegrade Flow): 1.05 m/s Peak Gradient(Antegrade Flow): 4.38 mm[Hg] Mean Velocity(Antegrade Flow): 0.68 m/s Mean Gradient(Antegrade Flow): 2.16 mm[Hg] Velocity Time Integral: 26.28 cm Tricuspid Valve Peak Velocity (Regurgitant Flow): 2.50 m/s, 2.67 m/s, 2.64 m/s, 2.68 m/s Pulmonic Valve Mean Gradient: 1.27 mm[Hg], 1.17 mm[Hg] Mean Velocity: 0.53 m/s, 0.51 m/s Peak Velocity: 0.74 m/s Peak Gradient: 2.17 mm[Hg], 2.17 mm[Hg] Right Atrium Right Atrium Systolic Pressure: 47.41 ml, 47.41 ml Dictated by: Harshal Cabrera M.D. on 01/10/2025 at 13:11 Approved by: Harshal Cabrera M.D. on 01/10/2025 at 13:16
--- NOTE | 2025-01-10 08:00 | ECG_ITS ---
[facility] Test Date: 2025-01-10 Pat Name: SYMONE BURT Department: Room: [facility] Gender: Female Lifestyle Director: : 1940 Requested By: [id number] Order Number: [id number] Reading MD: HELENE KEANE M.D. Measurements Intervals Douglas Rate: 63 P: 22 WI: 196 QRS: -64 QRSD: 96 T: 150 QT: 350 QTc: 357 Interpretive Statements 1100 Sinus rhythm 2440 Incomplete right bundle branch block 2630 Left anterior fascicular block Nonspecific ST-T wave changes 8305 Short QTc interval 9150 abnormal ECG Compared to ECG 01/10/2025 01:17:11 No significant changes Electronically Signed On 01-10-2025 7:40:01 EDT by HELENE KEANE M.D.
--- NOTE | 2025-01-10 10:10 | CM.NOTE ---
Rounds made with Dr. Brown, discussed plan of care with pt. Pt awaiting MRI scans, teleneuro will consult at this time with pt. Pt will stay in OBS status at this time, awaiting teleneuro consult and MRI findings. Dr. Brown will reassess this afternoon.
[2025-01-10] MEDS: LEVETIRACETAM 500 MG TABLET PO (10:15)
--- NOTE | 2025-01-10 10:16 | SWNOTE1 ---
Medicare Outpatient Observation Notice reviewed and discussed with patient. Pt. verbalized understanding and signed the form. Original given to patient and copy placed in patient?s chart.
--- NOTE | 2025-01-10 10:18 | SWNOTE1 ---
SW met with pt to discuss dc needs. Pt's daughter in room as well. Pt does not use any DME at home. She does not have any services coming in at home. Pt has a 3 story home and goes up and down stairs several times during the day. Her laundry is downstairs and her bedroom upstairs. Pt does go outside and has knapp that she cares for and feeds the squirrels. Pt does get meals on wheels does not love the meals. Pt does also cook for herself as well. Pt's 3 children all live within a 1 mile radius and they do check on her daily. Her son comes in 3x a day. Pt denies any needs at discharge at this time. No anticipated discharge needs. SW to follow as needed.
[2025-01-10] MEDS: HYDRALAZINE HCL 25 MG TABLET PO (14:46)
--- NOTE | 2025-01-10 15:59 | PM.HP ---
HPI H&P: HPI History of Present Illness Chief complaint: MALIGNANT HTN, ACUTE UTI, TIA Narrative: Patient is an 84-year-old female with a past medical history of previous stroke, hypertension, hypothyroid who presented to the emergency department with complaints of inability of finding her words or completing her sentences. Her daughter was visiting and confirmed this. The episode did not last long, about 15 minutes and patient thought she was dehydrated and drank a large glass of water. She is on aspirin and Eliquis for her previous stroke, which was last year. She also had seizures the night of her stroke and has been on Keppra as well since that time. She denies any chest pain, shortness of breath, upper or lower extremity weakness/numbness/tingling. She states she had some residual left-sided facial weakness from the previous stroke, but mostly it affects her vision. She denies any visual changes since this episode this afternoon. Workup in ER> CTA head and neck with note of severe narrowing of the distal aspect of the right middle cerebral artery M1 segment near the bifurcation which may be atherosclerotic in nature or secondary to a subocclusive thrombus. There is significant narrowing of M2 branch of the of the left middle cerebral artery near the anterior aspect of the sylvian fissure which may represent atherosclerotic change or subocclusive thrombus. ER team discussed results with patient and her daughter and that consultation with the interventional neurologist on-call. On reevaluation patients neurostatus remained stable. ER contacted Dr Dhillon with [facility] refrigeration service inspector and discussed case with him. Recommended MRI in AM. Discussed with the hospitalist Dr Davis and patient accepted to obs bed. Opioid HPI Opioid Management Most Recent Pain and Opioid Data: Last Pain Scale 4 08/14/24, 10:08 Last Pain Assessment Today, 01:00 Last ORT Total Score 0 Today, 00:49 Last ORT Risk Category Low Risk Today, 00:49 Review of Systems ROS Status of ROS 10 or more systems reviewed and unremarkable except as noted in history and below [facility] Medical History Stroke ?I63.9 - Cerebral infarction, unspecified (ICD-10) Hypothyroidism ?E03.9 - Hypothyroidism, unspecified (ICD-10) Hypertension ?I10 - Essential (primary) hypertension (ICD-10) Surgical History Hx of cardiac cath ?Z98.890 - Other specified postprocedural states (ICD-10) Family History Father Family history of stroke Daughter Family history of cancer Sister Family history of cancer Grandfather Family history of diabetes mellitus Other Family history of myocardial infarction Social History Within the past year, how often did you have a drink containing alcohol: never Score interpretation: A score less than 3 is consistent with normal alcohol consumption. Smoking status: Never smoker Non-prescribed substance use: denies use Highest level of school completed/degree received: high school graduate Are you now , , , , never or living with a partner: In a typical week, how many times do you talk on the telephone with family, friends, or neighbors: once per week How often do you get together with friends or relatives: never How often do you attend pentecostalism or mormonism services: never Do you belong to any clubs or organizations such as pentecostalism groups unions, fraternal or athletic groups, or school groups: yes Total score: 1 Score interpretation: A score of less than or equal to 1 indicates the most socially isolated. Little interest or pleasure in doing things: not at all Feeling down, depressed, or hopeless: not at all Feel stressed/tense/nervous/anxious/difficulty sleeping: not at all Meds Home Medications and Allergies Home Medications ?Medication ?Instructions ?Recorded ?Confirmed ?Type aspirin 81 mg tablet,delayed 81 mg PO .COMPLEX 10/23/22 01/10/25 History release (Adult Low Dose Aspirin) fenofibrate 54 mg tablet 54 mg PO DAILY 10/23/22 01/10/25 History metoprolol tartrate 50 mg tablet 50 mg PO BID 10/23/22 01/10/25 History levetiracetam 500 mg tablet 500 mg PO Q12H 08/14/24 01/10/25 History levothyroxine 100 mcg tablet 100 mcg PO .acb 01/09/25 01/10/25 History (Synthroid) valsartan 320 mg tablet 320 mg PO DAILY 01/09/25 01/10/25 History apixaban 5 mg tablet (Eliquis) 2.5 mg (1/2 x 5 mg) PO BID #0 tabs 01/10/25 Rx cefuroxime axetil 250 mg tablet 250 mg PO BID 5 days #10 tabs 01/10/25 Rx hydralazine 25 mg tablet 25 mg PO TID #90 tabs 01/10/25 Rx nitroglycerin 0.4 mg sublingual 0.4 mg sublingual Q5M PRN chest 01/10/25 01/10/25 History tablet pain Allergies Allergy/AdvReac Type Severity Reaction Status Date / Time amlodipine (From [facility]) Allergy Severe Rash Verified 01/09/25 17:54 ciprofloxacin Allergy Severe Joint Pain Verified 01/10/25 02:21 clonidine (From [facility]) Allergy Severe Rash Verified 01/09/25 17:54 lisinopril Allergy Severe Rash Verified 01/09/25 17:54 Falovyn-QKA-UwI Reductase Allergy Severe Rash Verified 01/09/25 17:54 Inhibitor hydralazine Allergy Unknown Verified 01/09/25 17:54 medro dose pack Allergy Severe Rash Uncoded 01/09/25 17:54 Exam Narrative Exam Narrative: General: No distress, age-appropriate Skin: Warm, dry, no pallor. No rash. Head: Normocephalic, atraumatic. Neck: Supple, non-tender. Eye: Pupils are equal, round and EOMI. No scleral icterus. Cardiovascular: Regular Rate and Rhythm without murmur, gallop or rub. Respiratory: No accessory muscle use or respiratory distress. Lungs are clear to auscultation, no wheezing, rales or rhonchi Chest Wall: no tenderness Back: No midline thoracic or lumbar vertebral tenderness. Musculoskeletal: Full ROM of all extremities, no calf or popliteal tenderness GI: Abdomen is soft, non-distended, non tender to palpation. No masses appreciated. No rebound, guarding, or rigidity noted. Neurological: A&O x4. No obvious new focal deficits. Constitutional Vital Signs, click to edit/add: Last Vital Signs Temp 97.8 F 01/10/25 07:41 Pulse 64 01/10/25 15:00 Resp 15 01/10/25 15:00 BP 154/61 H 01/10/25 14:46 Pulse Ox 97 01/10/25 07:41 O2 Del Method Room Air 01/10/25 12:00 Results Labs Labs: Short CBC 01/09/25 01/10/25 Range/Units 18:40 05:30 WBC 7.5 7.5 (4.0-11.0) 10^3/uL Hgb 13.5 13.0 (12.0-16.0) g/dL Hct 37.9 35.6 L (36.0-48.0) % Plt Count 227 196 (150-450) 10^3/uL BMP 01/09/25 01/10/25 18:40 05:30 Sodium 129 L 132 L Potassium 4.4 3.6 Chloride 92 L 98 Carbon Dioxide 28.9 26.4 BUN 27.0 H 21.0 H Creatinine 1.25 H 0.99 Glucose 98 93 Calcium 9.3 9.1 Liver Function 01/09/25 Range/Units 18:40 Total Bilirubin 0.7 (0.2-1.0) mg/dL AST 24 (15-37) U/L ALT 19 (14-59) U/L Alkaline Phosphatase 59 (46-116) U/L Albumin 3.7 (3.4-5.0) g/dL Urine 01/09/25 Range/Units 19:25 Urine Color Lt. yellow (YELLOW) Urine Clarity Sl cloudy (CLEAR) Urine pH 6.0 (5.0-9.0) Ur Specific [place] 1.020 (1.005-1.025) Urine Protein Negative (NEG/TRACE) mg/dL Urine Glucose (UA) Negative (NEGATIVE) mg/dL Assessment and Plan Assessment and Plan (1) Acute UTI: (2) Uncontrolled hypertension: (3) TIA (transient ischemic attack): Plan -Afebrile, no leukocytosis -Started on IV Rocephin while here. Will transition to oral antibiotics on discharge to complete course of treatment. -MRI brain was done, came back with no acute intracranial process. Discussed results with pt and daughter at bedside -Echo done and reviewed with pt and daughter. normal LV function and EF -Continue home doses of BP meds Metoprolol and valsartan, will add hydralazine 25 mg TID for better BP control. Pt has list of meds allergies. However tolerated hydralazine here. -Eliquis dose changed to 2.5 mg BID based on her weight and age. discussed with pt and daughter to make this change. -Pt on aspirin at home three times a week, recently changed from daily as per lens assorter. -[facility] stroke team consulted, followed up on pt today with video conference. Discussed the case with their team over the phone, no further new recommendations or changes to be made. -Lipid profile acceptable LDL 74 -PT/OT consulted, input appreciated. Discussed with pt and daughter at bedside, all questions answered We discussed changes in meds and discharge instructions. advised to continue BP monitoring at home and keep BP log and visit PCP and cardio and renal clinics post discharge
--- NOTE | 2025-01-10 17:15 | PC.NURSE ---
iv and tele dc'd. instructions reviewed and explained to pt and daughter. both verbalize understanding. belongings packed per daughter, pt dressed self. taken to exit via wheelchair, discharged to private vehicle.
--- NOTE | 2025-01-11 08:41 | PC.NURSE ---
Follow up with Dr. Talbot on 01/17 @ 11:30am [phone]
--- NOTE | 2025-01-11 13:53 | CM.DCFOLLOWU ---
Person spoke with: Janelle How are you feeling? I'm feeling ok How is your pain? Better Did you understand your discharge instructions? Yes Do you have any questions about your discharge instructions? No Were you given any prescriptions at discharge? Yes Were you able to get your prescriptions filled? Yes Do you understand how to take your medications as ordered? Yes Do you have any questions about your follow up appointment and do you plan to keep your follow up appointment? No questions but yes she plans on keeping her appts Is there anything else that you would like to discuss? No Questions/Comments/Concerns/Other:
--- NOTE | 2025-01-11 15:48 | CM.NOTE ---
I called the patient and notified her that she was scheduled for a follow up appt with Dr Talbot on 01/17/2025 at 11:30 am. She wrote down the information and said she would pass along the information to her daughter.
--- NOTE | 2025-01-16 15:27 | CM.NOTE ---
Final culture urine back, pt was discharged on cefuroxime.
== END 2025-01-10 17:10 | disposition home or self-care (01) ==
LOC: ER 23:02 → MS 01-10 00:37
PROVIDERS: Emergency Medicine; Physician Assistant; Admitting Provider Internal Medicine; Emergency Provider Internal Medicine; PCP Family Medicine; Visit Provider Internal Medicine
DX: G45.9 Transient cerebral ischemic attack, unspecified (principal); N39.0 Urinary tract infection, site not specified; I10 Essential (primary) hypertension; E03.9 Hypothyroidism, unspecified; Z79.82 Long term (current) use of aspirin; Z79.01 Long term (current) use of anticoagulants; I69.398 Other sequelae of cerebral infarction; H53.9 Unspecified visual disturbance
CPT/HCPCS: 36415; 70450; 70496; 70498; 70544; 70551; 80048; 80053; 80061; 81001; 83735; 85025; 87086; 87088; 87186; 92523; 93005; 93306; 96365; 96375; 97161; 97165; 99285; G0378; J0360; J0696; J2404; Q9967